=== PATIENT | male | born 1950 | race Caucasian/White ===

== ENCOUNTER 2016-10-09 21:57 | Emergency (ER) | payer MEDICARE, SELFPAY ==
[~2016-10-09] VITALS: Ht 175.3 cm; Wt 101.6 kg
[~2016-10-09 21:57] MED LIST: ADVAIR 250-501 EACH INH; ADVAIR 500-501 EACH INH; ALBUTEROL SULF8.5 GM INH; ALBUTEROL2.5 MG/3 M INH; AMOXICILLIN500 MG PO; ASPIRIN EC325 MG PO; ATORVASTATIN CA80 MG PO; CEFUROXIME500 MG PO; COZAAR25 MG PO; CRESTOR10 MG PO; CRESTOR20 MG PO; DALIRESP500 MCG PO; DELTASONE20 MG PO; DIPHENHYDRAMINE25 M1 PO; DUONEB 0.5 MG-33 ML INH; EPITOL200 MG PO; FEXOFENADINE H180 MG PO; FLONASE ALLERG9.9 ML NAS; GLUCOPHAGE500 MG PO; INCRUSE ELLI62.5 MCG IH; INCRUSE ELLI62.5 MCG INH; IPRAT-ALBUT 0.5-3 ML INH; LISINOPRIL2.5 MG PO; LOSARTAN POTASS25 MG PO; MEDROL4 M1 PO; NEILMED SINUS1 EAC1 NAS; NICOTINE PATCH1 EAC1 TD; NORCO 5-325 TA1 EACH PO; OMEPRAZOLE20 MG PO; OXYGEN; PREDNISONE20 MG PO; PROAIR HFA8.5 GM INH; REQUIP1 MG PO; ROPINIROLE HCL1 MG PO; SENNA8.6 MG PO; SPIRIVA18 MCG INH; STAXYN10 MG PO; VIAGRA50 MG PO; VITAMIN B122500 MCG PO; ZESTRIL2.5 MG PO; ZOFRAN ODT8 MG PO; ZOFRAN4 MG PO
[2016-10-09] MEDS ORDERED: PREDNISONE20 MG PO (23:36)
[2016-10-09] MEDS ORDERED: ZITHROMAX250 MG PO (23:36)
--- NOTE | 2016-10-10 06:23 | EKG ---
[facility] [address] [place], [place] [address] Signed Sinus tachycardia Left axis deviation Abnormal ECG When compared with ECG of 15-JUL-2016 22:39, No significant change was found Confirmed by DUSTIN CROSS MD ([id number]) on 10/10/2016 6:23:31 AM Electronically Signed By: DUSTIN CROSS MD 10/10/16 0623 PATIENT NAME: KEVIN DAUGHERTY SR Electrocardiogram DATE OF : 46 PHYSICIAN: DUSTIN CROSS MD REPORT #: [id number] REPORT IS CONFIDENTIAL AND NOT TO BE RELEASED WITHOUT AUTHORIZATION
[2017-03-19] MEDS ORDERED: PREDNISONE20 MG PO (00:24)
== END 2016-10-09 23:50 | disposition home or self-care (01) ==
LOC: ED 21:57
DX: J44.0 Chronic obstructive pulmonary disease with (acute) lower respiratory infection (principal); J20.9 Acute bronchitis, unspecified; E11.9 Type 2 diabetes mellitus without complications; R56.9 Unspecified convulsions; Z99.81 Dependence on supplemental oxygen; F17.200 Nicotine dependence, unspecified, uncomplicated; Z88.1 Allergy status to other antibiotic agents; Z88.8 Allergy status to other drugs, medicaments and biological substances; Z79.899 Other long term (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; Z79.82 Long term (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
CPT/HCPCS: 71020; 80053; 83605; 83735; 84484; 85025; 93005; 93010; 94640; 96374; 99284; J2930

== ENCOUNTER 2016-12-26 00:27 | Emergency (ER) | payer MEDICARE, OTHER ==
[~2016-12-26] VITALS: Ht 175.3 cm; Wt 99.3 kg
[~2016-12-26 00:27] MED LIST changes: +ZITHROMAX250 MG PO
--- NOTE | 2016-12-26 19:12 | EKG ---
[facility] [address] [place], [place] [address] Signed Sinus rhythm with marked sinus arrhythmia Left axis deviation Abnormal ECG When compared with ECG of 19-NOV-2016 21:56, No significant change was found Confirmed by DUSTIN CROSS MD ([id number]) on 12/26/2016 7:12:36 PM Electronically Signed By: DUSTIN CROSS MD 12/26/161911 PATIENT NAME: KEVIN DAUGHERTY SR Electrocardiogram DATE OF : 46 PHYSICIAN: DUSTIN CROSS MD REPORT #: [id number] REPORT IS CONFIDENTIAL AND NOT TO BE RELEASED WITHOUT AUTHORIZATION
[2017-03-19] MEDS ORDERED: PREDNISONE20 MG PO (00:24)
== END 2016-12-26 02:50 | disposition home or self-care (01) ==
LOC: ED 00:27
DX: R11.0 Nausea (principal); E11.9 Type 2 diabetes mellitus without complications; I10 Essential (primary) hypertension; R56.9 Unspecified convulsions; J44.9 Chronic obstructive pulmonary disease, unspecified; F17.200 Nicotine dependence, unspecified, uncomplicated; Z99.81 Dependence on supplemental oxygen; Z90.49 Acquired absence of other specified parts of digestive tract; Z98.890 Other specified postprocedural states; Z88.1 Allergy status to other antibiotic agents; Z79.51 Long term (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 of inhaled steroids; Z79.899 Other long term (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; Z79.82 Long term (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; Z79.84 Long term (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 of oral hypoglycemic drugs
CPT/HCPCS: 71010; 80053; 84484; 85025; 93005; 93010; 96374; 99284; J2405

== ENCOUNTER → 2017-01-20 | Emergency (ER) | payer MEDICARE, OTHER ==
[~2017-01-20] VITALS: Ht 175.3 cm; Wt 99.3 kg
[~2017-01-20] MED LIST changes: +AUGMENTIN 875-1 EACH PO; +NICORETTE4 M2 BUCCAL; +QVAR8.7 GM
== END ==
LOC: ED 18:26
DX: M25.562 Pain in left knee (principal); J44.9 Chronic obstructive pulmonary disease, unspecified; E11.9 Type 2 diabetes mellitus without complications; I10 Essential (primary) hypertension; F17.200 Nicotine dependence, unspecified, uncomplicated; Z90.49 Acquired absence of other specified parts of digestive tract; Z90.89 Acquired absence of other organs; Z88.1 Allergy status to other antibiotic agents; Z88.8 Allergy status to other drugs, medicaments and biological substances; Z79.899 Other long term (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; Z79.84 Long term (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 of oral hypoglycemic drugs; Z79.82 Long term (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
CPT/HCPCS: 73560; 99283

== ENCOUNTER 2017-02-11 18:36 | Inpatient (IN) | payer MEDICARE ==
[~2017-02-11] VITALS: Ht 175.3 cm; Wt 99.3 kg
--- OUTSIDE RECORDS SUMMARY | ~2017-02-11 | XMS | Clinical Summary ---
Demographics + + + | Address | [address] | | | [place] [address] | + + + | Home Phone | | + + + | Preferred Language | Unknown | + + + | Marital Status | Single | + + + | Christianity Affiliation | Unknown | + + + | Race | Unknown | + + + | Ethnic Group | Other Race | + + + Author + + + | Author | [facility] | + + + | Organization | [facility] | + + + | Address | Unknown | + + + | Phone | Unavailable | + + + Care Team Providers + +------+ + | Care B2B Sales Consultant Name | Role | Phone | + +------+ + | Jose Angel Reina MD | PP | Unavailable | + +------+ + Source Comments NIESHA is fully live on both EpicCare Ambulatory and EpicCare InPatient.[facility] Allergies Not on File Current Medications + [...] oral tablet | daily. | | | 9/20 | | e | | | | [...] tablet | times daily. | | | 020 | | e | | | | | | 14 | | | + + +-------+---------+------+------+-------+ | TIZANIDINE 2 mg | Take by mouth as | | | 04/1 | | Activ [...] WITH | once daily. | | | 06/03 | | Activ | | HANDIHALER 18 mcg | | | | 20 | | e | | inhalation capsule, | | | | 14 | | | | w/inhalation device | | | | | | | + + +-------+---------+------+------+-------+ | PROAIR HFA 90 | Inhale three times | | | /2 | | Activ | | mcg/actuation | daily. | | | 20 | | e | | inhalation HFA [...]
[~2017-02-11 18:36] MED LIST changes: -AUGMENTIN 875-1 EACH PO; -NICORETTE4 M2 BUCCAL; -QVAR8.7 GM
[2017-02-11] MEDS ORDERED: QVAR8.7 GM (18:47)
[2017-02-11] MEDS ORDERED: EPITOL200 MG PO (18:49)
[2017-02-11] MEDS ORDERED: DALIRESP500 MCG PO (18:51)
--- NOTE | 2017-02-11 19:24 | EKG ---
[facility] [address] [place], [place] [address] Signed Sinus tachycardia Left axis deviation Abnormal ECG When compared with ECG of 26-DEC-2016 00:44, No significant change was found Confirmed by DUSTIN CROSS MD ([id number]) on 02/11/2017 7:24:14 PM Electronically Signed By: DUSTIN CROSS MD 02/11/17 1924 PATIENT NAME: KEVIN DAUGHERTY SR Electrocardiogram DATE OF : 46 PHYSICIAN: DUSTIN CROSS MD REPORT #: [id number] REPORT IS CONFIDENTIAL AND NOT TO BE RELEASED WITHOUT AUTHORIZATION
--- NOTE | 2017-02-11 22:00 | NUR ---
PATIENTS ADMISSION COMPLETED. PATIENT OREINTED TO FLOOR AND ROOM. EDUCATED ON THE USE OF THE CALL LIGHT. PATIENT IS ON 2L VIA NC. PATIENTS IS AT THE BEDSIDE AND IS STAYING THE NIGHT, LINENS PROVIDED. PATIENT DENIES ANY NEEDS AT THIS TIME. CALL LIGHT IN REACH.
--- NOTE | 2017-02-11 23:17 | NUR ---
PATIENT INITIAL ASSESSMENT COMPLETE. PATIENT IS AAOX3, COMPLIANT WITH CARE. SPEECH IS SLURRED DUE TO NO EAT. PATIENT HAS GENERALIZED PAIN, PRN TYLENOL GIVEN. PATIENT HAS BEEN COMPLAINING OF LEFT KNEE PAIN FOR THE LAST MONTH, PATIENT REPORTS ADMINISTERED A CORTISONE INJECTION ABOUT A WEEK AGO. PATIENT ARRIVED TO THE UNIT WEARING A KNEE BRACE THAT HAS BEEN REMOVED. PATIENT REPORTS THAT HE IS ORDERED NOT TO WEAR THE BRACE IN BED. PATIENT USES A WALKER AT HOME FOR LOWER EXTREMITY WEAKNESS, HE HAS FOR SEVERAL YEARS. LUNG SOUNDS ARE COARSE IN UPPER LOBES AND DIMINISHED IN THE BASES. PATIENT HAS LABORED BREATHING, RR18. O2 SAT >90% ON 2L NC, PATIENT WEARS CHRONIC O2 AT HOME AT 2L NC. TELE IS IN PLACE, SINUS TACH NOTED ON THE MONITOR. ABD IS ROUND, SOFT, AND NONTENDER. BOWEL SOUNDS ACTIVE. PATIENT WAS ABLE TO USE UNRAL IN BED. CMS INTACT. IVF INFUSING, SITE WNL. PATIENT REPORTED FEELING HOT. ORAL TEMP WAS WNL. GLUCOSE CHECK FOUND A BLOOD GLUCOSE OF 366, 5 UNITS OF INSULIN ADMINISTERED PER ORDERS. WILL CONTINUE TO MONITOR. EVENING MEDS ADMINISTERED PER ORDER. PATIENT IS RESTING COMFORTABLY AT THIS TIME. CALL LIGHT IN REACH. AT BEDSIDE.
--- NOTE | 2017-02-12 01:14 | NUR ---
PATIENT RESTING IN BED. URNAL EMPTIED. IVF INFUSING, SITE WNL. PATIENT DENIES NEEDS AT THIS TIME. SLEEPING ON COUCH. CALL LIGHT IN REACH. LUNG SOUNDS; CLEAR IN ELIZABETH, EXPIRTORY WHEEZES IN RUL, AND LOWER LOBES BILATERALLY. TELE IN PLACE, HR 114.
--- NOTE | 2017-02-12 02:31 | NUR ---
PATIENT HAS A HACKING COUGH THAT HAS BEEN PRODUCTIVE. PATIENT IS RESTING IN BED, HOB ELEVATED. O2 >90% ON 2L NC. IVF INFUSING, SITE WNL. CALL LIGHT IN REACH.
--- NOTE | 2017-02-12 04:07 | NUR ---
PATIENT SNORING, OCCATIONAL COUGH. O2 89% ON 2L NC. PATIENT IS MOUTH BREATHING. CALL LIGHT IN REACH.
--- NOTE | 2017-02-12 06:00 | NUR ---
MORNING MEDS ADMINISTERED PER ORDERS. PATIENT STATES HE IS FEELING MUCH BETTER. FEILD START IV DC. IVF INFUSING, SITE WNL. PATIENT DENIES NEEDS AT THIS TIME.
--- NOTE | 2017-02-12 06:26 | NUR ---
PATIENT RESTED ON AND OFF THROUGHOUT THE NIGHT. PATIENT HAS NOT BEEN OUT OF BED. AAOX3. NO NAUSEA. PAIN RELATED TO RIGHT KNEE, PRN TYLENOL X1. IVF INFUSING. PO ABX. TELE 6, HR 94-110. SCHEDULED NEBS. AT BEDSIDE. OUTPUT QS. 2L NS, WEARS CHRONIC AT HOME.
--- NOTE | 2017-02-12 07:00 | NUR ---
BEDSIDE HANDOFF REPORT RECEIVED FROM SERVICE DESK ANALYST RN. PT SLEEPING LEFT UNDISTURBED.
--- NOTE | 2017-02-12 08:15 | NUR ---
PT RESTING IN BED. PT DENIES PAIN. RESPIRATORY THERAPY TO BEDSIDE FOR NEB. PT ON 2L NC, LUNG SOUNDS COARSE WITH EXPIRATORY WHEEZE. PT TOLERATING ADA DIET, DENIES NAUSEA, 2 UNITS SS INSULIN GIVEN FOR BLOOD GLUCOSE 210. CMS INTACT, NO EDEMA NOTED. IV FLUIDS INFUSING AT 75 ML/HR. PT DENIES OTHER NEEDS AT THIS TIME. AT BEDSIDE.
--- NOTE | 2017-02-12 10:19 | NUR ---
PATIENT REFUSED SHOWER BUT WILL DO A BED BATH AND SHAMPOO HAIR.
--- NOTE | 2017-02-12 10:41 | NUR ---
GOT HIM A CUP OF COFFEE
--- NOTE | 2017-02-12 11:14 | NUR ---
PT RESTING IN BED. PT DENIES NEEDS AT THIS TIME. DISCUSSED PLAN OF CARE. AT BEDSIDE.
--- NOTE | 2017-02-12 12:30 | NUR ---
PT HR 130'S AT REST. PT LAYING IN BED, DENIES CHEST PAIN. MD NOTIFIED OF TACHYCARDIA RECENET DOSE OF ALBUTEROL. NO NEW ORDERS AT THIS TIME.
--- NOTE | 2017-02-12 13:47 | NUR ---
PT IS RESTING IN BED WITH CALL LIGHT IN REACH.
--- NOTE | 2017-02-12 15:06 | NUR ---
PT ASSISTED TO CHAIR. BATH COMPLETED BY NURSE AIDE. PT WITH PRODUCTIVE COUGH, SUCTION SET-UP AND GIVEN TO PT. ASSIST X1 WITH FWW. PT GIVEN NICOTINE LOZENGE PER PT REQUEST. PT DENIES OTHER NEEDS AT THIS TIME.
--- NOTE | 2017-02-12 16:40 | NUR ---
PATIENT REFUSED SHOWER BUT GOT A BED BATH AROUND 3PM AND HIS HAIR WASHED.
--- NOTE | 2017-02-12 17:30 | NUR ---
PT ALERT/ORIENTED. PT ON 2L NC CHRONIC, LUNG SOUNDS COARSE, PRODUCTIVE COUGH. PT UP WITH 1PA WITH FWW, KNEE BRACE TO LEFT LEG. PT DENIES PAIN. TOLERATING ADA DIET, RECEIVING SS INSULIN, ACHS ACCUCHECKS. IV FLUIDS INFUSING NS AT 75 ML/HR. PT VOIDING QS.
--- NOTE | 2017-02-12 18:55 | NUR ---
PATIENT IS RESTING COMFORTABLY IN BED, BREATHING IS EVEN AND UNLABORED. DENIES NEEDS AT THIS TIME. CALL LIGHT WITHIN REACH.
--- NOTE | 2017-02-12 21:50 | NUR ---
PATIENT COMPLAINS OF "STUFFY" NOSE AND IS REQUESTING FLONASE SPRAY. DISCUSSED WITH DR. CROSS, AND ORDERED FLONASE X2 A DAY. PATIENT ALSO REPORTS BEING WARM. FEVER IS NOT PRESENT. GAVE PATIENT ICE PACKS, WASH RAG, REMOVED EXCESS BLANKETS, AND TURNED TEMP. DOWN IN ROOM. NO OTHER NEEDS AT THIS TIME. CALL LIGHT WITHIN REACH.
--- NOTE | 2017-02-12 21:55 | NUR ---
PATIENT CALLED TO SAY HE WAS TOO WARM. TEMPERATURE IN ROOM ALREADY TURNED ALL THE WAY DOWN. TOOK PATIENT'S TEMPERATURE, WAS 98.5 DEGREES F ORAL. UNCOVERED PATIENTS FEET, AND TOOK BLANKET OFF LEAVING ONLY THE SHEET ON. MADE PATIENT ICE PACK. PATIENT IS REQUESTING NASAL DROPS THAT HE TAKES AT HOME, THREATENS TO LEAVE IF HE DOES NOT GET THEM. NURSE NOTIFIED.
--- NOTE | 2017-02-12 22:57 | NUR ---
PATIENT IS RESTING IN BED, STATING THAT HE FEELS WARM AND DIZZY. VITALS TAKEN WITH A TEMP OF 98.2, PULSE IS 111, BP OF 116/60, AND O2 SAT OF 94%. PROVIDED NICOTINE LOZENGE AND FAN. WILL CONTINUE TO MONITOR. CALL LIGHT WITHIN REACH.
--- NOTE | 2017-02-12 23:52 | NUR ---
NURSE IN ROOM.
--- NOTE | 2017-02-13 02:05 | NUR ---
PATIENT ASLEEP. DOES NOT NEED ANYTHING AT THIS TIME.
--- NOTE | 2017-02-13 03:47 | NUR ---
PATIENT CALLED, IS REQUESTING HIS BREATHING TREATMENT. RESPIRATORY THERAPY CALLED.
--- NOTE | 2017-02-13 05:33 | NUR ---
PATIENT'S NIGHT HAS BEEN UNEVENTFUL. HE HAS BEEN RESTING THROUGHOUT MAJORITY OF SHIFT. VITALS HAVE BEEN STABLE, OTHER THAN TACHYCARDIA AT BEGINNING OF SHIFT WITH A PULSE BETWEEN 100 AND 125. HOWEVER, PATIENT'S HEART RATE IS NOW IN 80s AND RUNNING NORMAL SINUS. PATIENT IS RECEIVING IV FLUIDS, IS A 1PA, AND IS ON TELE. NO COMPLAINTS OF PAIN. THERE WERE NO ACUTE CHANGES IN THE PATIENT'S CONDITION FROM BEGINNING OF SHIFT ASSESSMENT.
--- NOTE | 2017-02-13 05:58 | NUR ---
PATIENT RESTING COMFORTABLY IN BED, BREATHING IS EVEN AND UNLABORED ON 2L O2. DENIES NEEDS AT THIS TIME. CALL LIGHT WITHIN REACH.
--- NOTE | 2017-02-13 07:00 | NUR ---
BEDSIDE HANDOFF REPORT RECEIVED FROM DATA ENTRY SPECIALIST RN. PT RESTING IN BED. IV FLUIDS INFUSING NS AT 75 ML/HR. PT DENIES NEEDS AT THIS TIME.
--- NOTE | 2017-02-13 08:16 | NUR ---
PT RESTING IN BED. BLOOD SUGAR 174, BREAKFAST TRAY GIVEN. DSICUSSED NICOTINE LOZENGE LIMITS WITH PT, PT REQUESTING TO USE LOZENGES VS NICOTINE PATCH. PT DENIES OTHER NEEDS AT THIS TIME.
--- NOTE | 2017-02-13 08:45 | NUR ---
PT RESTING IN BED. PT ON 2L NC, O2 SATS 90%, LUNG SOUNDS COARSE WITH EXPIRATORY WHEEZE. PT DENIES PAIN. TOLERATING ADA DIET, GIVEN 1 UNIT SS INSULIN FOR BLOOD GLUCOSE 174. BOWEL TONES ACTIVE. NO EDEMA NOTED, CMS INTACT. PT GIVEN NICOTINE LOZENGE, DISCUSSED NICOTINE LIMIT FOR DAY, REFUSING NICOTINE PATCH IN ORDER TO HAVE MORE LOZENGES. PT AGREEABLE TO SHOWER. PT DENIES OTHER NEEDS AT THIS TIME.
[2017-02-13] MEDS ORDERED: ZITHROMAX250 MG PO (09:27)
[2017-02-13] MEDS ORDERED: PREDNISONE20 MG PO (09:29)
[2017-02-13] MEDS ORDERED: NICORETTE4 M2 BUCCAL (09:51)
--- NOTE | 2017-02-13 10:00 | NUR ---
PT ASSISTED TO BATHROOM AND BACK TO CHAIR. AT BEDSIDE. PT DENIES NEEDS AT THIS TIME.
--- NOTE | 2017-02-13 10:44 | NUR ---
Patient given a shower and tolerated well. Vital signs taken and I&O's charted. Amena RN in room with Pharmacist to go over discharge instructions. No other requests at this time.
--- NOTE | 2017-02-13 11:52 | NUR ---
PT PACKE UP AND REDEY TO GO HOME
[2017-03-19] MEDS ORDERED: PREDNISONE20 MG PO (00:24)
== END 2017-02-13 11:10 | disposition home or self-care (01) | DRG 190 ==
LOC: ED 18:36 → MS 21:07
PROVIDERS: ADMIT Internal Medicine
DX: J44.1 Chronic obstructive pulmonary disease with (acute) exacerbation (principal); J96.21 Acute and chronic respiratory failure with hypoxia; Z99.81 Dependence on supplemental oxygen; F17.210 Nicotine dependence, cigarettes, uncomplicated; I10 Essential (primary) hypertension; G40.909 Epilepsy, unspecified, not intractable, without status epilepticus; E11.9 Type 2 diabetes mellitus without complications; Z79.84 Long term (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 of oral hypoglycemic drugs
CPT/HCPCS: 36415; 36600; 71010; 80048; 80053; 82803; 83605; 83880; 84484; 85025; 93005; 93010; 94640; 94644; 99406; J1650; J2920; J7030; J7512

== ENCOUNTER → 2017-03-18 | Emergency (ER) | payer MEDICARE ==
[~2017-03-18] VITALS: Ht 175.3 cm; Wt 99.3 kg
[~2017-03-18] MED LIST changes: +AUGMENTIN 875-1 EACH PO; +NICORETTE4 M2 BUCCAL; +QVAR8.7 GM
--- NOTE | 2017-03-19 12:38 | EKG ---
[facility] [address] [place] [address] Signed Sinus tachycardia with premature atrial complexes Left axis deviation Abnormal ECG When compared with ECG of 11-FEB-2017 19:00, premature atrial complexes are now present Confirmed by SIGRID ARELLANO MD ([id number]) on 03/19/2017 12:38:29 PM Electronically Signed By: SIGRID ARELLANO MD 03/19/17 1238 PATIENT NAME: KEVIN DAUGHERTY SR Electrocardiogram DATE OF : 46 PHYSICIAN: SIGRID ARELLANO MD REPORT #: [id number] REPORT IS CONFIDENTIAL AND NOT TO BE RELEASED WITHOUT AUTHORIZATION
== END ==
LOC: ED 22:03
DX: J44.1 Chronic obstructive pulmonary disease with (acute) exacerbation (principal); R07.9 Chest pain, unspecified; F17.210 Nicotine dependence, cigarettes, uncomplicated; E11.9 Type 2 diabetes mellitus without complications; I10 Essential (primary) hypertension; Z88.1 Allergy status to other antibiotic agents; Z88.8 Allergy status to other drugs, medicaments and biological substances; Z79.899 Other long term (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; Z79.52 Long term (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 of systemic steroids; Z79.2 Long term (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 of antibiotics; Z79.84 Long term (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 of oral hypoglycemic drugs
CPT/HCPCS: 71010; 80053; 82550; 82553; 83735; 83874; 83880; 84484; 85025; 85610; 85730; 93005; 93010; 94640; 96374; 99284; J2930

== ENCOUNTER 2017-04-20 16:06 | Emergency (ER) | payer MEDICARE ==
[~2017-04-20] VITALS: Ht 175.3 cm; Wt 99.3 kg
--- OUTSIDE RECORDS SUMMARY | ~2017-04-20 | XMS | Clinical Summary ---
Demographics + + + | Address | [address] | | | [place] [address] | + + + | Home Phone | | + + + | Preferred Language | Unknown | + + + | Marital Status | Single | + + + | Worship Affiliation | Unknown | + + + [...] Team Providers + +------+ + | Care Fairmont Gold Attendant Name | Role | Phone | + +------+ + | Jose Angel Reina MD | PP | Unavailable | + +------+ + Source Comments NIESHA is fully live on both EpicCare Ambulatory and EpicCare InPatient.[facility] Allergies Not on File Current Medications + [...]
--- OUTSIDE RECORDS SUMMARY | ~2017-04-20 | XMS | Clinical Summary ---
Demographics + + + | Address | [address] | | | [place] [address] | + + + | Home Phone [...] Providers + +------+ + | Care Patient Safety Sitter Name | Role | Phone | + +------+ + | Jose Angel Reina MD | PP | Unavailable | + +------+ + Source Comments NIESHA is fully live on both EpicCare Ambulatory and EpicCare InPatient.[facility] Allergies Not on File Current Medications [...]
[~2017-04-20 16:06] MED LIST changes: -AUGMENTIN 875-1 EACH PO
[2017-04-20] MEDS ORDERED: AUGMENTIN 875-1 EACH PO (17:53)
== END 2017-04-20 19:00 | disposition home or self-care (01) ==
LOC: ED 16:06
DX: J02.9 Acute pharyngitis, unspecified (principal); J44.9 Chronic obstructive pulmonary disease, unspecified; E11.9 Type 2 diabetes mellitus without complications; I10 Essential (primary) hypertension; F17.200 Nicotine dependence, unspecified, uncomplicated; Z90.49 Acquired absence of other specified parts of digestive tract; Z90.89 Acquired absence of other organs; Z88.1 Allergy status to other antibiotic agents; Z88.8 Allergy status to other drugs, medicaments and biological substances; Z79.82 Long term (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; Z79.84 Long term (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 of oral hypoglycemic drugs; Z79.899 Other long term (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
CPT/HCPCS: 71045; 87081; 87502; 87880; 94640; 96372; 99283; J0696

== ENCOUNTER 2017-04-21 21:03 | Inpatient (IN) | payer MEDICARE, SELFPAY ==
[~2017-04-21] VITALS: Ht 175.3 cm; Wt 99.8 kg
[~2017-04-21 21:03] MED LIST changes: +AUGMENTIN 875-1 EACH PO
--- OUTSIDE RECORDS SUMMARY | 2017-04-21 21:33 | XMS | Clinical Summary ---
Demographics + + + | Address | [address] | | | [place] [address] | + + + | Home Phone | | + + + | Preferred Language | Unknown | + + + | Marital Status | Single | + + + | Oriental Orthodox Affiliation | Unknown | + + + | Race | Unknown | + + + | Ethnic Group | Other Race | + + + Author + + + | Author | NON REVENUE LOCATIONS | + + + | Organization | NON REVENUE LOCATIONS | + + + | Address | Unknown | + + + | Phone | Unavailable | + + + Care Team Providers + +------+ + | Care Test Cell Technician Name | Role | Phone | + +------+ + | Jose Angel Reina MD | PP | Unavailable | + +------+ + Source Comments NIESHA is fully live on both EpicCare Ambulatory and EpicCare InPatient.[facility] Allergies Not on File Current Medications + + +-------+---------+------+------+-------+ | Prescription | Sig. | Disp. | Refills | Star | End | Statu | | | | | | t | Date | s | | | | | | Date | | | + + +-------+---------+------+------+-------+ | LISINOPRIL 2.5 mg | Take by mouth once | | | 04/0 | | Activ | | oral tablet | daily. | | | 04/24 | | e | | | | | | 14 | | | + + +-------+---------+------+------+-------+ | ROPINIROLE 1 mg | Take by mouth once | | | 04/1 | | Activ | | oral tablet | daily. | | | 04/24 | | e | | | | | | 14 | | | + + +-------+---------+------+------+-------+ | ATORVASTATIN 80 mg | Take by mouth once | | | 04/0 | | Activ | | oral tablet | daily. | | | 12/23 | | e | | | | | | 14 | | | + + +-------+---------+------+------+-------+ | DALIRESP 500 mcg | Take by mouth once | | | 03/2 | | Activ | | oral tablet | daily. | | | 04/24 | | e | | | | | | 14 | | | + + +-------+---------+------+------+-------+ | METFORMIN 500 mg | Take by mouth two | | | 04/0 | | Activ | | oral tablet | times daily. | | | 08/22 | | e | | | | | | 14 | | | + + +-------+---------+------+------+-------+ | EPITOL 200 mg oral | Take by mouth four | | | 02/ | | Activ | | tablet | times daily. | | | | | e | | | | | | 14 | | | + + +-------+---------+------+------+-------+ | TIZANIDINE 2 mg | Take by mouth as | | | 04/ | | Activ | | oral tablet | needed. | | | | | e | | | | | | 14 | | | + + +-------+---------+------+------+-------+ | aspirin (KETTY | Take 325 mg by mouth | | | | | Activ | | ASPIRIN) 325 mg oral | once daily. | | | | | e | | tablet | | | | | | | + + +-------+---------+------+------+-------+ | SENNOSIDES (SENNA | Take by mouth two | | | | | Activ | | LAX ORAL) | times daily. | | | | | e | + + +-------+---------+------+------+-------+ | acetaminophen | Take 500 mg by mouth | | | | | Activ | | (TYLENOL EXTRA | as needed. | | | | | e | | STRENGTH) 500 mg | | | | | | | | oral tablet | | | | | | | + + +-------+---------+------+------+-------+ | | Inhale 1 puff two | | | | | Activ | | fluticasone-salmeter | times daily. | | | | | e | | ol 500-50 mcg/dose | | | | | | | | inhalation disk with | | | | | | | | device | | | | | | | + + +-------+---------+------+------+-------+ | SPIRIVA WITH | once daily. | | | 03/ | | Activ | | HANDIHALER 18 mcg | | | | /20 | | e | | inhalation capsule, | | | | 14 | | | | w/inhalation device | | | | | | | + + +-------+---------+------+------+-------+ | PROAIR HFA 90 | Inhale three times | | | 02/2 | | Activ | | mcg/actuation | daily. | | | 08/22 | | e | | inhalation HFA | | | | 14 | | | | aerosol inhaler | | | | | | | + + +-------+---------+------+------+-------+ | MISCELLANEOUS | once daily at | | | | | Activ | | MEDICAL SUPPLY (RX | bedtime. Use as | | | | | e | | HOME OXYGEN) | directed. | | | | | | + + +-------+---------+------+------+-------+ Active Problems + + + | Problem | Noted Date | + + + | Cerebellar ataxia (HCC) | 07/24/2013 | + + + Social History + +-------+ +--------+------+ | Tobacco Use | Types | Packs/Day | Years | Date | | | | | Used | | + +-------+ +--------+------+ | Current Every Day | | | | | | Smoker | | | | | + +-------+ +--------+------+ + +---+---+---+ | Smokeless Tobacco: | | | | | Never Used | | | | + +---+---+---+ + + +---------+ + | Alcohol Use | Drinks/We | oz/Week | Comments | | | ek | | | + + +---------+ + | No | | | | + + +---------+ + + + + | Sex Assigned at | Date Recorded | | | | + + + | Not on file | | + + + Last Filed Vital Signs + + + + | Vital Sign | Reading | Time Taken | + + + + | Blood Pressure | 101/73 | 07/18/2013 2:17 PM PDT | + + + + | Pulse | 92 | 07/18/2013 2:17 PM PDT | + + + + | Temperature | - | - | + + + + | Respiratory Rate | - | - | + + + + | Oxygen Saturation | - | - | + + + + | Inhaled Oxygen | - | - | | Concentration | | | + + + + | Weight | 102.1 kg (225 lb) | 07/18/2013 2:17 PM PDT | + + + + | Height | - | - | + + + + | Body Mass Index | - | - | + + + + Plan of Treatment + + + + + | Health Maintenance | Due Date | Last Done | Comments | + + + + + | INFLUENZA VACCINE | | | | | (FLU SHOT) | 7 | | | + + + + + Results Not on filefrom Last 3 Months"
--- OUTSIDE RECORDS SUMMARY | 2017-04-21 21:33 | XMS | Clinical Summary ---
Demographics + + + | Address | [address] | | | [place] [address] | + + + | Home Phone | | + + + | Preferred Language | Unknown | + + + | Marital Status | Single | + + + | Buddhist Affiliation | Unknown | + + + [...] Team Providers + +------+ + | Care Manager Project Name | Role | Phone | + +------+ + | Jose Angel Reina MD | PP | Unavailable | + +------+ + Source Comments NIESHA is fully live on both EpicCare Ambulatory and EpicCare InPatient.[facility] Allergies Not on File Current Medications + [...]
--- OUTSIDE RECORDS SUMMARY | 2017-04-21 23:52 | XMS | Clinical Summary ---
Demographics + + + | Address | [address] | | | [place] [address] | + + + | Home Phone | | + + + | Preferred Language | Unknown | + + + | Marital Status | Single | + + + | Latter Day Affiliation | Unknown | + + + [...] Team Providers + +------+ + | Care Investment Manager Name | Role | Phone | + +------+ + | Jose Angel Reina MD | PP | Unavailable | + +------+ + Source Comments NIESHA is fully live on both EpicCare Ambulatory and EpicCare InPatient.[facility] Allergies Not on File Current Medications + [...]
--- NOTE | 2017-04-22 00:06 | NUR ---
PT ARRIVED TO FLOOR FROM ED. RESPIRATIONS INCREASED AND PT IS ON 3.5 LNC. PT'S IS AT BESIDE, ASSESSMENT IS BEING COMPLETED.
--- NOTE | 2017-04-22 01:15 | NUR ---
COMPLETED ASSESSMENT ON PT, HIS RR IS INCREASED ON 3.5LNC AND HE HAS TACHYCARDIA WITH A TEMP OF 99.9 WILL CONTINUE TO MONITOR VS. HE IS RECEIVING IV ABX AND A FLUID BOLUS OF 500CC. PT STATES HE USES A WALKER AT HOME, PT IS A 1 PA. HE STATES HE HAS NO PAIN BUT HAS SOME WEAKNESS AND IS NOT EATING WELL. PT HAS NO NAUSEA AT THIS TIME BUT DID AT HOME. PT HAS FRESH WATER AND BEDSIDE AND CALL LIGHT IS WITHIN REACH. PT IS REQUESTING A BREATHING TRT, WILL NOTIFY RT.
--- NOTE | 2017-04-22 02:49 | NUR ---
REPOSITIONED PT IN BED AND CLEARED I&OS. CALL LIGHT WITHIN REACH, PT HAS NO REQUESTS AT THIS TIME.
--- NOTE | 2017-04-22 04:47 | NUR ---
PT ARRIVED AFTER MIDNIGHT WITH . AFTER SETTLEING IN AND EATING HE HAS RESTED WELL FOR SEVERAL HOURS. PT PREFERS TO HAVE DOOR AND CURTAIN OPEN. PT IS ON 3.5L NC AND LUNG HAVE EXP. WHEEZES. PT'S O2 SAT IS DOING WELL WITH O2. PT IS A 1PA WITH WALKER. PT'S STAYED THE NIGHT IN ROOM.
--- NOTE | 2017-04-22 06:35 | NUR ---
VITALS DONE AND CHARTED. PT NEEDS NOTHING AT THIS TIME. BEDSIDE TABLE AND CALL LIGHT WITHIN REACH.
--- NOTE | 2017-04-22 07:30 | NUR ---
BEDSIDE REPORT RECEIVED FROM [place]. PATIENT AWAKE IN BED. DENIED PAIN AND SOB. IV SITE PATENT AND FLUID IS INFUSING WELL. PATIENT IS 0N 3L 0F 02 VIA MN. NO REQUEST. WHITE BOARD UPDATED.
--- NOTE | 2017-04-22 08:10 | NUR ---
PATIENT RESTING IN BED CBG CHECKED. 0800AM MEDICATIONS ADMINISTERED. IV SITE INFITRATED. NEW IV SITE ESTABLISHED BY FLOAT NURSE ALDO. PATIENT SITTING AT BEDSIDE AT THIS TIME EATING BREAKFAST.
--- NOTE | 2017-04-22 09:50 | NUR ---
PATIENT ASSISTED TO CHAIR, SHIFT ASSESSMENT DONE. LUNGS DIM AND COARSE WITH EXP WHEEZE. 0900AM MEDICATION ADMINISTERED, VS TAKEN AND WNL. PATIENT DENIES PAIN. POSITIVE BOWEL TONES, NO EDEMA. RESTING IN THE CHAIR AT THIS TIME, CALL LIGHT AND PERSONAL BELONGING IN REACH.
--- NOTE | 2017-04-22 09:53 | NUR ---
PT STOOD AND TRANSFERED TO CHAIR. PT IS NOW SITTING UP IN CHAIR WITH CALL LIGHT IN REACH. PT WAS OFFERED A SHOWER BUT WOULD LIKE TO WAIT UNTIL AFTER LUNCH. LINENS AND PT'S GOWN WERE CHANGED. PT ASKED FOR MORE COFFEE
--- NOTE | 2017-04-22 11:57 | NUR ---
PATIENT RESTING IN THE CHAIR. NICOTINE LOZENGES ADMINISTERED. RT IN ROOM GIVEN NEB TREATMENT.
--- NOTE | 2017-04-22 13:26 | NUR ---
PATIENT RESTING IN THE CHAIR, DENIES PAIN AND SOB. NICOTINE LOZENGES ADMINISTERED PER PATIENT REQUEST. NO APPARENT DISTRESS.
--- NOTE | 2017-04-22 14:23 | NUR ---
PATIENT BACK TO BED, DENIES PAIN AND SOB. FAMILY AT BEDSIDE.
--- NOTE | 2017-04-22 14:32 | NUR ---
PT IS RESTING IN BED SAFELY WITH CALL LIGHT IN REACH. PT DID NOT NEED ANYTHING AT THE MOMENT
--- NOTE | 2017-04-22 17:10 | NUR ---
PATIENT RESTING IN BED DENIES PAIN AND SOB AT THIS TIME. HAD NEB TREATMENT EARLIER. STILL HAVE LOOSE COUGH. AT BED SIDE.
--- NOTE | 2017-04-22 18:05 | NUR ---
PATIENT HAD AN UNEVENTFUL DAY. HAS A NEW IV SITE. FLUID INFUSING AT 75ML/HR. LUNGS STILL COARSE WHEEZING IMPROVED WITH NEB TX. PATIENT SPENT MOST THE DAY IN THE CHAIR. STILL HAVE LOOSE/PRODUCTIVE COUGH. VOIDED Q/S. MAY D/C TOMORROW.
--- NOTE | 2017-04-22 18:07 | NUR ---
PT IS RESTING IN BED WITH CALL LIGHT IN REACH. PT IS ASKING FOR A NICOTINE LOZINGER, WILL NOTIFY NURSE
--- NOTE | 2017-04-22 19:15 | NUR ---
BEDSIDE REPORT RECEIVED FROM VERÓNICA MAGAÑA. PT LYING IN BED, ON 3L OXYGEN NC, SPO2 90%, HR 112. PLAN TO AMBULATE HALLWAY THIS EVENING. NO REQUESTS AT THIS TIME, WILL CONTINUE TO MONITOR, CALL LIGHT IS IN REACH.
--- NOTE | 2017-04-22 19:54 | NUR ---
ANSWERED PT CALL LIGHT, PT INCONTINENT OF STOOL WHILE COUGHING. CLEANED PT, CHANGED GOWN, CHUX CHANGED. PT REQUESTED ICE WATER, COFFEE. PTS AT BEDSIDE. PT ALSO REQUESTING NICOTINE LOSANGE, LOSANGE GIVEN. CALL LIGHT IN REACH. IVF INFUSING WNL AT 75 ML/HR.
--- NOTE | 2017-04-22 20:52 | NUR ---
2030 - pt received another nicotine lozenger c/o cigarrette craving, incontinent of soft bm, cleansed, lotions to area, cbg 90, no other requests, visiting with
--- NOTE | 2017-04-22 22:00 | NUR ---
PT ASSESSMENT COMPLETE. PTS LUNGS COARS IN LLL, CLEAR THROUGHOUT, PT STATES COUGH IS PRODUCTIVE. PT IS 92% ON 3L OXYGEN BY NASAL CANNULA. PT COMPLAINS OF SOB WITH MOVEMENT. PT IS ALERT AND ORIENTED X 3. PT COMPLAINS OF NICOTINE CRAVING, ADMINISTERED LOSANGE AT THIS TIME. IV SITE WNL, FLUSHES WELL, GOOD BLOOD RETURN. ANTIBIOTIC INFUSING AT THIS TIME. ASSISTED PT TO AMBULATE HALLWAY WITH JEAN PIERRE SHANKS. PT TOLERATED WELL W SBA, COMPLAINED OF SOB, SPO2 91-92% UPON RETURNING TO ROOM. AT BEDSIDE. PT REQUESTING SANDWICH BOX, JEAN PIERRE SHANKS TO DELIVER TO PT. NO ADDITIONAL REQUESTS, CALL LIGHT AND PERSONAL SUPPLIES IN REACH.
--- NOTE | 2017-04-22 22:52 | NUR ---
pt continues on droplet isolation, moist, non productive cough present, o2 3L N?C, no c/o resp distress. IVF and abx infusing. pt c/o pain at insertion site as of a few minutes ago, site intact, no redness, good blood flow return, site not warmer than rest of body. Reassured site was patent and explained how sometimes pts may feel a little bit of discomfort after first getting abx. Reassured, no further c/o.
--- NOTE | 2017-04-23 00:17 | NUR ---
ANSWERED PT'S CALL LIGHT, PT REQUESTING PRN BREATHING TREATMENT. PHONE CALL TO RT GABBY PIERRE TO COME DO TREATMENT.
--- NOTE | 2017-04-23 00:37 | NUR ---
IN PT ROOM TO CHECK ON PT. RT WAS IN PT ROOM. ANTIBIOTIC COMPLETE AT THIS TIME, IVF INFUSING WNL AT 75 ML/HR. PT CONTINUES ON 3L OXYGEN BY NASAL CANNULA. PT HAS NO REQUESTS AT THIS TIME. CALL LIGHT IN REACH, LIGHTS OFF IN ROOM.
--- NOTE | 2017-04-23 00:55 | NUR ---
ANSWERED CALL LIGHT, PT COMPLAINING OF DRY NOSE, EDUCATION PROVIDED REGARDING OXYGEN, GAVE PT NS FLUSH TO USE PER HEADING UP MACHINE OPERATOR ANALY. IVF INFUSING. PT ALSO REQUESTING NICOTINE LOSANGE, ADMINISTERED. PT CONTINUES ON 3L OXYGEN BY NASAL CANNULA, LIGHTS OFF IN ROOM. REQUESTING TO SLEEP AT THIS TIME.
--- NOTE | 2017-04-23 03:50 | NUR ---
IN PT ROOM, ASSESSMENT COMPLETE. WHEEZES HEARD THROUGHOUT LUNGS, PT ON 3L OXYGEN BY NC, SPO2 92%. PT SLEEPING WHEN RN ENTERED ROOM, AWAKENS, ADMINISTERED PRN NICOTINE LOSANGE. NEW IV FLUID HANGING. EMPTIED PT'S URINAL. PT HAS CALL LIGHT IN REACH, LIGHTS OFF IN ROOM.
--- NOTE | 2017-04-23 05:20 | NUR ---
SLASHER HAND IN PT ROOM AT THIS TIME.
--- NOTE | 2017-04-23 06:15 | NUR ---
PT USES CALL LIGHT CONSISTENTLY THROUGHOUT SHIFT, REQUESTING NICOTINE LOSANGES HOURLY AWAKE. PT INCONTINENT OF STOOL WITH COUGHING X 2, ATTENDS IN PLACE. PT RECEIVING IVF WNL. DENIES PAIN THROUGHOUT SHIFT. RECEIVED PRN BREATHING TREATMENTS. PT USING URINAL FOR VOIDS. AMBULATED HALLWAY X 1 WITH SBA FWW. PT IN ROOM THROUGHOUT SHIFT.
--- NOTE | 2017-04-23 07:59 | NUR ---
PT IS SITTING UP EATING HIS BREAKFAST, PT DID NOT NEED ANYTHING AT THE MOMENT
--- NOTE | 2017-04-23 08:10 | NUR ---
PATIENT LUNG SOUNDS TIGHT WITH LIMITED AIR MOVEMENT THROUGHOUT, NOTED EXPIRATORY WHEEZES. STATED " MY LAST TX WAS AT MIDNIGHT" NOTIFIED RT PATIENT IN NEED OF TX. PATIENT IN SUPINE POSITION IN BED EATING BREAKFAST. DISCUSSED POC FOR DAY. PATIENT CONCERNED WILL NOT GET LOZENGES IN TIMELY MANNER. DISCUSSED WITH DOCTOR AND PHARMACIST BARB IF OKAY TO PROVIDE PATIENT WITH TWO AT TIME, VERBALIZED OKAY. CHANGED ORDER. PATIENT AAOX3. NO EDEMA NOTED. ADMINISTERED MORNING MEDICAITONS. O2 93% ON 3L NC.
--- NOTE | 2017-04-23 09:12 | NUR ---
PT IS RESTING IN BED SAFELY WITH CALL LIGHT IN REACH. PT AGREED TO SHOWER, WILL RETURN TO DO SO AFTER ALL VITALS ARE TAKEN.
--- NOTE | 2017-04-23 10:18 | NUR ---
CHECKING ON PATIENT FREQUENTLY. APPEARS CALM AND BREATHING EASY. PROVIDED PATIENT WITH LOZENGES.
--- NOTE | 2017-04-23 12:20 | NUR ---
PATIENT AGREES TO SHOWER AFTER DR. BRITT ROUNDS ON HIM. PATIENT LUNGS SOUNDS COURSE AND DIMINISHED. PATIENT STATES " THE LOZENGES ARE REALLY HELPING ME KICK THIS HABIT".
--- NOTE | 2017-04-23 12:44 | NUR ---
PT SEEMS TO BE IMPROVING, BY HIS SIDE. PT IS ALERT AND SOMEWHAT ORIENTED. HE MENTIONED THAT HIS MATERIAL INSPECTOR WAS NOTIFIED YESTERDAY THAT HE IS HERE, BUT HAS NOT YET COME. I SUGGESTED THAT I BECOME HIS MATERIAL INSPECTOR WHILE HE IS HERE, HE SEEMED PLEASED WITH THAT. HE HAD ME PRAY FOR HIM, AND MENTIONED THAT HIS BRO. LAST YEAR. WE TALKED ABOUT THIS HE SEEMS TO BE DEALING APPROPRIATELY WITH HIS BROTHERS PASSING. HE ALSO MENTIONED HIS SISTER NAVJOT, AND THAT I HAVE HIS PERMISSION TO DISCUSS HIS HEALTH WITH HER. I WILL CONTINUE TO FOLLOW NEEDED
--- NOTE | 2017-04-23 14:58 | NUR ---
PT SHOWERED WITH ASSISTANCE, LINENS CHANGED. PT IS NOW IN BED WITH CALL LIGHT IN REACH.
--- NOTE | 2017-04-23 18:08 | NUR ---
PT IS SITTING UP IN CHAIR WORKING ON DINNER, CALL LIGHT IN REACH.
--- NOTE | 2017-04-23 18:45 | NUR ---
PATIENT UP TO SHOWER TODAY, LUNG SOUNDS CONTINUE TO SOUND TIGHT AND COURSE WITH LIMITED AIR MOVEMENT. PATIENT REQUIRING NEB TX AND IV SOLUMEDROL. GOOD APPETITE AND VOIDING WELL. LARGE BM TODAY. VS STABLE. 3L NC 94%
--- NOTE | 2017-04-23 19:30 | NUR ---
BEDSIDE REPORT RECEIVED FROM VERÓNICA SHANKS. PT SITTING UP IN CHAIR, ON 3L OXYGEN NC. IVF INFUSING WNL AT 75 ML/HR. PT EATING DINNER AT THIS TIME. CALL LIGHT IN REACH. PT'S IN ROOM. PLAN TO AMBULATE THIS EVENING.
--- NOTE | 2017-04-23 20:45 | NUR ---
IN PT ROOM, PT'S TO NURSES STATION TO ALERT THAT IV PUMP BEEPING. DITAL OCCLUSION, FLUSHED LINE, FLUSHES EASILY, REINFORCED IV SITE WITH TAPE IN WRIST AND PT BENDING WRIST. IVF INFSUING AT 75 ML/HR WNL. PT REQUESTING COFFEE, NICOTINE LOSANGES, AND REQUESTING SODA, WATER. DRINKS GIVEN TO PT AND . CALL LIGHT IN REACH, PT SITTING UP IN CHAIR, RT IN ROOM.
--- NOTE | 2017-04-23 21:27 | NUR ---
pt back to bed. no c/o pain.. O2 3l/nc, cont pulse ox in place, saTS 92%, PULSE 100, R 20. WATCHING TV. AT BEDSIDE
--- NOTE | 2017-04-23 23:19 | NUR ---
ANSWERE PT'S CALL LIGHT, PT FEELING "WEIRD". IN ROOM TO ASSESS PT, PT IS ALERT AND ORIENTED X 3, DOES NOT REPORT CHEST PAIN, STATES HE FEELS SOB. LUNGS DIMINISHED THROUGHOUT ALL LOBES, WHEEZES HEARD THROUGHOUT. HR REGULAR. PUPILS EQUAL ROUND AND REACTIVE TO LIGHT. CSM INTACT BILATERALLY UPPER AND LOWER EXTREMITIES. ANTIBIOTIC INFUSION COMPLETE. IVF INFUSING WNL IN LEFT WRIST. PT REQUESTING PRN BREATHING TREATMENT, VERÓNICA HORNE NOTIFIED IN PERSON, WILL BE IN TO COMPLETE TREATMENT. PT CURRENTLY ON 3L OXYGEN NASAL CANNULA. SPO2 93%. CALL LIGHT IN REACH, AT BEDSIDE.
--- NOTE | 2017-04-24 01:30 | NUR ---
PT SLEEPING ON LEFT SIDE, VISIBLE CHEST RISE, ON 3L OXYGEN BY NASAL CANNULA, LIGHTS OFF IN ROOM. ALSO IN ROOM. WILL CONTINUE TO MONITOR.
--- NOTE | 2017-04-24 04:50 | NUR ---
IN PT ROOM, PT IS SLEEPING, AWAKENS W RN VOICE. VITAL SIGNS COMPLETE AT THIS TIME, 93% ON 3L OXYGEN BY NC, HR 86. LUNGS DIMINISHED, WHEEZES HEARD, PT DENIES SOB AT THIS TIME. EMPTIED PTS URINAL. CALL LIGHT IN REACH, LIGHTS OFF IN ROOM. SLEEPING ON COUCH AT THIS TIME.
--- NOTE | 2017-04-24 05:23 | NUR ---
ANSWERED PT'S CALL LIGHT, PT REQUESTING PRN BREATHING TREATMENT, RT COLEEN NOTIFIED, WILL COME TO PT'S ROOM FOR TREATMENT.
--- NOTE | 2017-04-24 06:26 | NUR ---
ANSWERED PT CALL LIGHT, IV D/C'D DUE TO DISCOMFORT, CATHETER BENT AND PULLED OUT, DOES NOT FLUSH, IV D/C'D WNL. NO CURRENT IV MEDS ON EMAR, DR. ARELLANO TELEPHONED, VERBAL OKAY TO LEAVE PT WITHOUT IV ACCESS AT THIS TIME.
--- NOTE | 2017-04-24 06:45 | NUR ---
IVF D/C'D. NO IV ACCESS AT THIS TIME DUE TO PULLED LINE, AWARE. PT RECEIVING PRN BREATHING TREATMENTS THROUGHOUT SHIFT, COARSE LUNGS AND WHEEZES HEARD THROUGHOUT SHIFT. PT HAS DENIED PAIN. QUANTITY SUFFICIENT VOIDS IN URINAL. SPENT NIGHT IN ROOM. CONTINUES ON DROPLET PRECAUTIONS.
--- NOTE | 2017-04-24 07:10 | NUR ---
HANDOFF REPORT RECEIVED FROM ANIMAL STICKER RN. PT RESTING IN BED. PT DENIES NEEDS AT THIS TIME.
--- NOTE | 2017-04-24 08:51 | NUR ---
PT SITTING IN CHAIR. RT TO BEDSIDE FOR NEB. PT ON 3L NC, O2 SATS 91%. PT DENIES PAIN. PT TOLERATING ADA DIET. CMS INTACT, WITHOUT EDEMA. BOWEL TONES ACTIVE, DENIES NAUSEA. PT WITHOUT IV ACCESS. PT DENIES OTHER NEEDS AT THIS TIME.
--- NOTE | 2017-04-24 09:44 | NUR ---
PT WALKED TO BATHROOM, PT HAD VOIDED IN HIS PANTS, PT CONTINUED TO VOID IN THE TOILET. PT THEN WAS CLEANED UP AND RETURNED TO THE CHAIR SITTING WITH CALL LIGHT IN REACH. PT ASKED FOR MORE COFFEE.
[2017-04-24] MEDS ORDERED: CEFUROXIME500 MG PO (10:06)
[2017-04-24] MEDS ORDERED: IPRAT-ALBUT 0.5-3 ML INH (10:06)
[2017-04-24] MEDS ORDERED: TAMIFLU75 MG PO (10:06)
[2017-04-24] MEDS ORDERED: NICORETTE4 M2 BUCCAL (10:07)
[2017-04-24] MEDS ORDERED: PREDNISONE20 MG PO (10:09)
--- NOTE | 2017-04-24 11:26 | NUR ---
PT REQUESTING NEB BEFORE DISCHARGE, RT CALLED UNAVAILABLE. DUO NEB ADMINISTERED PER ORDER. PT DRESSED, BELONGINGS COLLECTED. PT DENIES OTHER NEEDS AT THIS TIME.
== END 2017-04-24 12:25 | disposition home or self-care (01) | DRG 190 ==
LOC: ED 21:03 → MS 23:31
PROVIDERS: ADMIT Internal Medicine
DX: J44.1 Chronic obstructive pulmonary disease with (acute) exacerbation (principal); J96.21 Acute and chronic respiratory failure with hypoxia; J11.1 Influenza due to unidentified influenza virus with other respiratory manifestations; I10 Essential (primary) hypertension; G40.909 Epilepsy, unspecified, not intractable, without status epilepticus; E11.9 Type 2 diabetes mellitus without complications; G25.81 Restless legs syndrome; E78.5 Hyperlipidemia, unspecified; F17.200 Nicotine dependence, unspecified, uncomplicated; Z79.84 Long term (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 of oral hypoglycemic drugs
CPT/HCPCS: 36415; 71046; 80048; 80053; 83605; 83735; 83880; 84484; 85025; 87040; 94640; 94762; J0456; J0696; J1650; J2920; J2930; J7030; J7040; J7512

== ENCOUNTER 2017-05-27 08:53 | Emergency (ER) | payer MEDICARE, OTHER ==
[~2017-05-27] VITALS: Ht 175.3 cm; Wt 99.8 kg
--- OUTSIDE RECORDS SUMMARY | ~2017-05-27 | XMS | Clinical Summary ---
Demographics + + + | Address | [address] | | | [place] [address] | + + + | Home Phone | | + + + | Preferred Language | Unknown | + + + | Marital Status | Single | + + + | Taoism Affiliation | Unknown | + + + [...] Providers + +------+ + | Care Senior Account Manager Name | Role | Phone | + +------+ + | Jose Angel Reina MD | PP | Unavailable | + +------+ + Source Comments NIESHA is fully live on both EpicCare Ambulatory and EpicCare InPatient.[facility] Allerg[facility] Not on File Current Medications + [...]
--- OUTSIDE RECORDS SUMMARY | ~2017-05-27 | XMS | Clinical Summary ---
Demographics + + + | Address | [address] | | | [place] [address] | + + + | Home Phone [...] Team Providers + +------+ + | Care Fractionating Still Operator Name | Role | Phone | + +------+ + | Jose Angel Reina MD | PP | Unavailable | + +------+ + Source Comments NIESHA is fully live on both EpicCare Ambulatory and EpicCare InPatient.[facility] Allergies Not on File Current Medications + [...]
[~2017-05-27 08:53] MED LIST changes: +TAMIFLU75 MG PO
== END 2017-05-27 11:51 | disposition home or self-care (01) ==
LOC: ED 08:53
DX: R10.31 Right lower quadrant pain (principal); R10.32 Left lower quadrant pain; J44.9 Chronic obstructive pulmonary disease, unspecified; E11.9 Type 2 diabetes mellitus without complications; I10 Essential (primary) hypertension; G40.909 Epilepsy, unspecified, not intractable, without status epilepticus; F17.200 Nicotine dependence, unspecified, uncomplicated; Z88.1 Allergy status to other antibiotic agents; Z88.8 Allergy status to other drugs, medicaments and biological substances; Z79.899 Other long term (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; Z79.84 Long term (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 of oral hypoglycemic drugs
CPT/HCPCS: 71046; 80053; 81001; 83690; 84484; 85025; 94640; 99284

== ENCOUNTER 2017-10-04 01:26 | Emergency (ER) | payer MEDICARE ==
[~2017-10-04] VITALS: Ht 175.3 cm; Wt 99.8 kg
[2017-10-04] MEDS ORDERED: SILDENAFIL20 MG PO (01:41)
--- NOTE | 2017-10-04 05:51 | EKG ---
[facility] [address] [place] [address] Signed Normal sinus rhythm Left axis deviation Abnormal ECG When compared with ECG of 18-MAR-2017 22:08, premature atrial complexes are no longer present Confirmed by DUSTIN CROSS MD ([id number]) on 10/04/2017 5:50:51 AM Electronically Signed By: DUSTIN CROSS MD 10/04/17 0551 PATIENT NAME: DAUGHERTYKEVIN Electrocardiogram DATE OF : 46 PHYSICIAN: DUSTIN CROSS MD REPORT #: [id number] REPORT IS CONFIDENTIAL AND NOT TO BE RELEASED WITHOUT AUTHORIZATION
== END 2017-10-04 05:27 | disposition home or self-care (01) ==
LOC: ED 01:26
DX: J44.1 Chronic obstructive pulmonary disease with (acute) exacerbation (principal); E11.9 Type 2 diabetes mellitus without complications; I10 Essential (primary) hypertension; F17.200 Nicotine dependence, unspecified, uncomplicated; Z88.1 Allergy status to other antibiotic agents; Z88.8 Allergy status to other drugs, medicaments and biological substances; Z79.899 Other long term (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
CPT/HCPCS: 71045; 80053; 83735; 83880; 84484; 85025; 93005; 93010; 94644; 96374; 99284; J2930

== ENCOUNTER 2018-06-18 14:05 | Emergency (ER) | payer MEDICARE ==
[~2018-06-18] VITALS: Ht 175.3 cm; Wt 99.8 kg
--- OUTSIDE RECORDS SUMMARY | ~2018-06-18 | XMS | Clinical Summary ---
Demographics + + + | Address | [address] | | | [place] [address] | + + + | Home Phone | | + + + | Preferred Language | Unknown | + + + | Marital Status | | + + + | Yazidism Affiliation | [id number] | + + + | Race | Unknown | + + + | Ethnic Group | Unknown | + + + Author + + + | Author | [facility] | + + + | Organization | [facility] | + + + | Address | Unknown | + + + | Phone | Unavailable | + + + Support + + + + + | Name | Relationship | Address | Phone | + + + + + | Palak Daugherty | [address] | [id number], [place] | | | | | [address] | | + + + + + Care Team Providers + +------+ + | Care Vibrating Screen Operator Name | Role | Phone | + +------+ + | Jose Angel Reina MD | PP | | + +------+ + Allergies + + + + + + | Active Allergy | Reactions | Severity | Noted | Comments | | | | | Date | | + + + + + + | Varenicline | Syncope | Low | 05/19/19 | | | | | | 17 | | + + + + + + | Levofloxacin | Itching | Medium | 05/19/19 | | | | | | 17 | | + + + + + + Current Medications + + + +---------+------+------+-------+ | Prescription | Sig. | Disp. | Refills | Star | End | Statu | | | | | | t | Date | s | | | | | | Date | | | + + + +---------+------+------+-------+ | atorvastatin | Take 80 mg by mouth | | | 11/2 | | Activ | | (LIPITOR) 80 MG | daily. | | | 8/20 | | e | | tablet | | | | 16 | | | + + + +---------+------+------+-------+ | EPITOL 200 MG | | | | 11/3 | | Activ | | tablet | | | | 0/20 | | e | | | | | | 16 | | | + + + +---------+------+------+-------+ | fluticasone | 2 sprays by Each | | | 12/0 | | Activ | | (FLONASE) 50 MCG/ACT | Nare route daily. | | | 5/20 | | e | | nasal | | | | 16 | | | + + + +---------+------+------+-------+ | losartan (COZAAR) | Take 25 mg by mouth | | | 12/0 | | Activ | | 25 MG tablet | daily. | | | 1/20 | | e | | | | | | 16 | | | + + + +---------+------+------+-------+ | rOPINIRole | | | | 12/0 | | Activ | | (REQUIP) 1 MG tablet | | | | 4/20 | | e | | | | | | 16 | | | + + + +---------+------+------+-------+ | Cyanocobalamin | Take 1,000 mg by | | | | | Activ | | (VITAMIN B 12 PO) | mouth 2 (two) times | | | | | e | | | daily. | | | | | | + + + +---------+------+------+-------+ | metFORMIN | Take 500 mg by mouth | | | | | Activ | | (GLUCOPHAGE) 500 MG | 2 (two) times daily | | | | | e | | tablet | with meals. | | | | | | + + + +---------+------+------+-------+ | aspirin 325 MG | Take 325 mg by mouth | | | | | Activ | | tablet | daily. | | | | | e | + + + +---------+------+------+-------+ | senna (SENOKOT) | Take by mouth. | | | | | Activ | | 8.6 MG tablet | | | | | | e | + + + +---------+------+------+-------+ | acetaminophen | Take 500 mg by | | | | | Activ | | (TYLENOL) 500 MG | mouth. 1 TAB BID | | | | | e | | tablet | | | | | | | + + + +---------+------+------+-------+ | | Take 3 mLs by | | | | | Activ | | ipratropium-albutero | nebulization. | | | | | e | | l (DUO-NEB) 0.5-2.5 | | | | | | | | mg/3mL | | | | | | | + + + +---------+------+------+-------+ | predniSONE | Take 10 mg by mouth. | | | | | Activ | | (DELTASONE) 10 MG | | | | | | e | | tablet | | | | | | | + + + +---------+------+------+-------+ | sildenafil | Take 100 mg by | | | | | Activ | | (VIAGRA) 100 MG | mouth. 1 daily prior | | | | | e | | tablet | to intercourse pm | | | | | | + + + +---------+------+------+-------+ | albuterol | Inhale 2 puffs into | 1 | 11 | 02 | | Activ | | (PROVENTIL | the lungs as needed | Inhaler | | 6/20 | | e | | HFA;VENTOLIN HFA) | for Wheezing. | | | 17 | | | | 108 (90 BASE) | | | | | | | | MCG/ACT inhaler | | | | | | | + + + +---------+------+------+-------+ | | Inhale 1 puff into | 60 each | 11 | 05/06 | | Activ | | fluticasone-salmeter | the lungs 2 (two) | | | 6 | | e | | ol (ADVAIR) 500-50 | times daily. | | | 17 | | | | MCG/DOSE diskus | | | | | | | | inhaler | | | | | | | + + + +---------+------+------+-------+ | roflumilast | Take 1 tablet by | 30 | 11 | 05/06 | | Activ | | (DALIRESP) 500 MCG | mouth daily. | tablet | | 6 | | e | | tablet | | | | 17 | | | + + + +---------+------+------+-------+ | umeclidinium | Inhale 1 puff into | 1 | 11 | 05/06 | | Activ | | bromide (INCRUSE | the lungs daily. | Inhaler | | 09/22 | | e | | ELLIPTA) 62.5 | | | | 17 | | | | MCG/INH inhaler | | | | | | | + + + +---------+------+------+-------+ Active Problems + + + | Problem | Noted Date | + + + | Centrilobular emphysema (HCC) | 05/21/2016 | + + + | Chronic respiratory failure with hypoxia (HCC) | 05/21/2016 | + + + Social History + +-------+ +--------+------+ | Tobacco Use | Types | Packs/Day | Years | Date | | | | | Used | | + +-------+ +--------+------+ | Current Every Day | | 1 | 53 | | | Smoker | | | [...] + + + | Blood Pressure | 105/63 | 05/21/2016 1:58 PM PST | + + + + | Pulse | 90 | 05/21/2016 1:58 PM PST | + + + + | Temperature | 36.5 C (97.7 F) | 05/21/2016 1:58 PM PST | + + + + | Respiratory Rate | - | - | + + + + | Oxygen Saturation | 96% | 05/21/2016 1:58 PM PST | + + + + | Inhaled Oxygen | - | - | | Concentration | | | + + + + | Weight | 101.6 kg (224 lb) | 05/21/2016 1:58 PM PST | + + + + | Height | 175.3 cm (5' 9") | 05/21/2016 1:58 PM PST | + + + + | Body Mass Index | 33.08 | 05/21/2016 1:58 PM PST | + + + + Plan of Treatment + + + + + | Health Maintenance | Due Date | Last Done | Comments | + + + + + | Colon Cancer | | | | | Screening | 9 | | | | (Colonoscopy) | | [...] 06/14/2014, 01/18/2010 | | | Pneumococcal 65+ | 6 | | | | Low/Medium Risk (2 | | | | | of 2 - PPSV23) | | | | + + + + + | Vaccine: Influenza | | 01/21/2015, 12/28/2013, | | | (#1) | 8 | 03/16/2013, Additional history | | | | | exists | | + + + + + | Vaccine: | | 01/19/2012 | | | Dtap/Tdap/Td (2 - | 2 | | | | Td) | | | | + + + + + Results Not on filefrom Last 3 Months Insurance + +--------+ +--------+-------+---------+ | Payer | Benefi | Subscriber | Type | Phone | Address | | | t Plan | ID | | | | | | / | | | | | | | Group | | | | | + +--------+ +--------+-------+---------+ | [place] | [place] - | [id number] | Medica | | | | | MODA | | re | | | | | | | | | | | | | | | | | | | | | | | | | | | | | | | | | | | | | | | | [place] - | | | | | | | MODA | | | | | + +--------+ +--------+-------+---------+ + +--------+ +--------+ + + | Guarantor Name | Accoun | Relation to | Date | Phone | Billing Address | | | t Type | Patient | of | | | | | | | | | | + +--------+ +--------+ + + | KEVIN DAUGHERTY | Person | Self [birth year] Home: | [address] | | | [place] | | [phone] [place] | | | [place] | | | [phone] | [phone] | + +--------+ +--------+ + +
--- OUTSIDE RECORDS SUMMARY | ~2018-06-18 | XMS | Clinical Summary ---
Demographics + + + | Address | [address] | | | [place] [address] | + + + | Home Phone [...] [facility] | | | and [place] | + + + | Organization | [facility] | | | and [place] | + + + | Address | Unknown | + + + | Phone | Unavailable | + + + Support + + + + + | Name | Relationship | Address | Phone | + + + + + | Palak Daugherty | ECON | [address] | | | | | [address] | | + + + + + Care Team Providers + +------+ + | Care Health And Safety Inspector Name | Role | Phone | + [...] 500 mg by mouth | | | 12/04 | | Activ | | (GLUCOPHAGE) 500 mg | 2 times daily. | | | 07/23 | | e | | tablet | | | | 12 | | | + + + +---------+------+------+-------+ | carBAMazepine | Take 200 mg by mouth | | | 12/04 | | Activ | | (EPITOL) 200 mg | 4 times daily. | | | 07/23 | | e | | tablet | | | | 12 | | | + + + +---------+------+------+-------+ | Cyanocobalamin | Take 1,000 mcg by | | | | | Activ | | (B-12) 1000 MCG CAPS | mouth Daily. | | | | | e | + + + +---------+------+------+-------+ | oxygen | Inhale 3 L into the | | | | | Activ | | | lungs nightly. | | | | | e | + + + +---------+------+------+-------+ | fluticasone | 1 spray by Nasal | 16 g | 11 | 09/04 | | Activ | | (FLONASE) 50 | route Daily. | | | 05/25 | | e | | mcg/nasal spray | | | | 15 | | | + + + +---------+------+------+-------+ | aspirin 325 mg | Take 325 mg by mouth | | | | | Activ | | tablet | Daily. | | | | | e | + + + +---------+------+------+-------+ | acetaminophen | Take 1,300 mg by | | | | | [...] ONCE DAILY AT | tablet | | 05/25 | | e | | | BEDTIME | | | 16 | | | + + + +---------+------+------+-------+ | VENTOLIN HFA 108 | Inhale 2 puffs into | | | | | Activ | | (90 BASE) MCG/ACT | the lungs every 6 | | | | | e | | inhaler | hours as needed for | | | | | | | | Wheezing. | | | | | | + + + +---------+------+------+-------+ | nicotine | Inhale 1 Cartridge | | | | | Activ | | (NICOTROL) [...] | | | | | | type ([facility]) | | | | | | | [...] | Inhale 3 mLs into | | | | | Activ | | albuterol-ipratropiu | the lungs Every 4 | | | | | e | | m (DUONEB) 2.5-0.5 | hours. | | | | | | | mg/3 mL SOLN | | | | | | | + + + +---------+------+------+-------+ | senna (SENOKOT) | Take 2 tablets by | | | | | Activ | | 8.6 MG TABS | mouth Daily. | | | | | e | + + + +---------+------+------+-------+ | sildenafil | Take 100 mg by mouth | | | | | Activ | | (VIAGRA) 100 MG | as needed. 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0 | | | | Standard | | | | | drinks or | | | | | | | | | | equivalen | | | | | t | | | + + +---------+ + + + + | Sex Assigned at | Date Recorded | | | | + + + | Not on file | | + + + Last Filed Vital Signs + + + + | Vital Sign | Reading | Time Taken | + + + + | Blood Pressure | 120/80 | 07/08/2017 1312 PDT | + + + + | Pulse | 104 | 07/08/20171311 PDT | + + + + | Temperature | 36.4 C (97.6 F) | 07/08/20171311 PDT | + + + + | Respiratory Rate | 18 | 01/21/20151320 PDT | + + + + | Oxygen Saturation | 94% | 07/08/20171311 PDT | + + + + | Inhaled Oxygen | - | - | | Concentration | | | + + + + | Weight | 102.1 kg (225 lb 1.4 | 07/08/2017 1312 PDT | | | oz) | | + + + + | Height | 175.3 cm (5' 9") | 07/08/20171311 PDT | + + + + | Body Mass Index | 33.24 | 07/08/20171311 PDT | + + + + Plan of [...] + + + + | Hemoglobin A1c Q3 | | | | | Months | 7 | | | + + [...] 01/11/2017, 01/21/2015, | | | (#1) | 8 | 12/28/2013, Additional history | | | [...] | | | + +--------+ +--------+-------+---------+ | [employer] | MOD[facility] | [id number] | Medica | | | | | HEALTH | | re | | | | | MDCR | | | | | + +--------+ [...] Home: | [address] | | [place] | [place] | | 1951 | [phone] | [place] [address] | | | [place] | | | 1938 | | + +--------+ +--------+ + +
--- OUTSIDE RECORDS SUMMARY | ~2018-06-18 | XMS | Clinical Summary ---
Demographics + + + | Address | [address] | | | [place] [address] | + + + | Home Phone | | + + + | Preferred Language | Unknown | + + + | Marital Status | | + + + | Jewish Affiliation | 1061 | + + + | Race | Unknown | + + + | Ethnic Group | Unknown | + + + Author + + + | Author | [facility] | | | and [place] | + + + | Organization | [facility] | | | and [place] | + + + | Address | Unknown | + + + | Phone | Unavailable | + + + Support + + + + + | Name | Relationship | Address | Phone | + + + + + | Palak Daugherty | ECON | [address] | | | | | [address] | | + + + + + Care Team Providers + +------+ + | Care Senior Biostatistician Name | Role | Phone | + [...] | | | | | | type ([facility]) | | | | | | [...] + | COPD (chronic obstructive pulmonary disease) ([facility]) | | + + + | DM type 2 (diabetes mellitus, type 2) ([facility]) | | + + + | Hypertension [...] | [employer] | MODA | [id number] | Medica | | | | | [...] [place] | [place] | | 1951 | [phone] | [place] [address] | | | [place] | | | 1938 | | + +--------+ +--------+ + +
--- OUTSIDE RECORDS SUMMARY | ~2018-06-18 | XMS | Clinical Summary ---
Demographics + + + | Address | [address] | | | [place] [address] | + + + | Home Phone [...] Team Providers + +------+ + | Care Anodiser Name | Role | Phone | + +------+ + | Jose Angel Reina MD | PP | Unavailable | + +------+ + Source Comments NIESHA is fully live on both EpicCare Ambulatory and EpicCare InPatient.[facility] Allergies Not on File Current Medications + [...] | + + + + + | Pneumococcal (Adult) | | | | | (1 of 2 - PCV13) | 4 | | | + + + + + | Influenza (Flu) | | | | | vaccination (#1) | 8 | | | + + + + + Results Not on filefrom Last 3 Months"
--- OUTSIDE RECORDS SUMMARY | ~2018-06-18 | XMS | Clinical Summary ---
Demographics + + + | Address | [address] | | | [place] [address] | + + + | Home Phone | | + + + | Preferred Language | Unknown | + + + | Marital Status | | + + + | Druze Affiliation | 1061 | + + + | Race | Unknown | + + + | Ethnic Group | Unknown | + + + Author + + + | Author | [facility] | + + + | Organization | [facility] | + + + | Address | Unknown | + + + | Phone | Unavailable | + + + Support + + + + + | Name | Relationship | Address | Phone | + + + + + | Palak Daugherty | ECON | [address], [place] | | | | | [address] | | + + + + + Care Team Providers + +------+ + | Care Diver Pumper Name | Role | Phone | + [...] [place] - [place] | [place] - | [id number] | Medica | | | | | [...] | [place] | | | 1939 | [address] | + +--------+ +--------+ + +
--- OUTSIDE RECORDS SUMMARY | ~2018-06-18 | XMS | Clinical Summary ---
Demographics + + + | Address | [address] | | | [place] [address] | + + + | Home Phone [...] Team Providers + +------+ + | Care Inker Name | Role | Phone | + +------+ + | Jose Angel Reina MD | PP | Unavailable | + +------+ + Source Comments NIESHA is fully live on both EpicCare Ambulatory and EpicCare InPatient.[facility] Allergies Not on File Current Medications [...]
[~2018-06-18 14:05] MED LIST changes: +SILDENAFIL20 MG PO; +ZOFRAN ODT4 MG PO
--- OUTSIDE RECORDS SUMMARY | 2018-06-18 14:08 | XMS ---
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 - Has Care Guidelines CARE PROVIDERS DONNIE, [facility] Medicine 01/25/2018-Current LYN Nieto PHONE: Unknown Alfredo Maya Treatment Current PHONE: Unknown Jossue Current PHONE: Unknown Topher has no Care Guidelines for this patient. Care History Medical/Surgical 03/01/[address] [facility] - PATIENT HAS WORKED WITH [facility] 2 TIMES NOW AND HAS GONE THROUGH THE COMPLETE PROGRAM BOTH TIMES. - PATIENT IS NOW WORKING WITH NID[facility] -RESPIRATORY THERAPIST AT [facility]. - PLEASE CONTACT NIDIA [phone] IF PATIENT IS SEEN IN THE ED DUE TO COPD/ SOB SYMPTOMS. [facility]IA CAN HELP WORK WITH PCP TO MAKE MEDICATION CHANGES/ ADJUSTMENTS. 10/07/[address] [facility] Care Recommendation: This patient has had 5 or more Emergency Department visits in the last 12 months.\T\nbsp; Patient requires education on the scope and purpose of the ED as an acute care provider not a Primary Care Provider and should not be utilized for chronic conditions.\T\nbsp; If patient returns to ED please contact Community Health WorkerJuany at [phone]. These are guidelines and the provider should exercise clinical judgment when providing care. 03/09/[address] [facility] PATIENT IS ENROLLED IN CARDIO/PULMONARY PROGRAM AT [facility]. Social 03/09/[address] [facility] PATIENT RECEIVES FOOD STAMPS THROUGH [facility] E.D. VISIT COUNT (12 MO.) 5 [facility]. TOTAL 5 NOTE: Visits indicate total known visits. ED/UCC VISIT TRACKING (12 MO.) 06/18/2018 14:06 [facility] [place] TYPE: Emergency COMPLAINT: - DIZZINESS, SOB 02/28/2018 22:36 [facility] [place] TYPE: Emergency COMPLAINT: - VOMITING DIAGNOSES: - Nicotine dependence, unspecified, uncomplicated - Allergy status to other drugs, medicaments and biological substances status - buttermaker (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 - residential (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 of oral hypoglycemic drugs - Allergy status to other antibiotic agents status - Other ferry terminal agent (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 - Chest pain, unspecified - Nausea with vomiting, unspecified - Essential (primary) hypertension - Type 2 diabetes mellitus without complications - Chronic obstructive pulmonary disease with (acute) exacerbation - Dependence on supplemental oxygen 02/28/2018 12:46 [facility] [place] TYPE: Emergency COMPLAINT: - SOB DIAGNOSES: - Dependence on supplemental oxygen - Type 2 diabetes mellitus without complications - Essential (primary) hypertension - Shortness of breath - Other ferry terminal agent (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 - Nicotine dependence, unspecified, uncomplicated - Allergy status to other antibiotic agents status - Chronic obstructive pulmonary disease with (acute) exacerbation - Allergy status to other drugs, medicaments and biological substances status 01/25/2018 00:54 [facility] [place] TYPE: Emergency COMPLAINT: - DIZZINESS,HEADACHE DIAGNOSES: - Dizziness and giddiness - Allergy status to other antibiotic agents status - Headache - Essential (primary) hypertension - Chronic obstructive pulmonary disease, unspecified - Nicotine dependence, unspecified, uncomplicated - residential (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 - Other fpc (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 - residential (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 of oral hypoglycemic drugs - Type 2 diabetes mellitus without complications - Headache - Dizziness and giddiness - Allergy status to other drugs, medicaments and biological substances status 10/04/2017 01:27 [facility] [place] TYPE: Emergency COMPLAINT: - WEAKNESS DIAGNOSES: - Shortness of breath - Allergy status to other drugs, medicaments and biological substances status - Nicotine dependence, unspecified, uncomplicated - Type 2 diabetes mellitus without complications - Other ferry terminal agent (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 - Allergy status to other antibiotic agents status - Essential (primary) hypertension - Chronic obstructive pulmonary disease with (acute) exacerbation INPATIENT VISIT TRACKING (12 MO.) No inpatient visits to display in this time frame [id number]
[2018-06-18] MEDS ORDERED: ZITHROMAX250 MG PO (16:16)
[2018-06-18] MEDS ORDERED: PREDNISONE20 MG PO (16:16)
== END 2018-06-18 16:26 | disposition home or self-care (01) ==
LOC: ED 14:05
DX: J44.0 Chronic obstructive pulmonary disease with (acute) lower respiratory infection (principal); J44.1 Chronic obstructive pulmonary disease with (acute) exacerbation; J18.1 Lobar pneumonia, unspecified organism; E11.9 Type 2 diabetes mellitus without complications; I10 Essential (primary) hypertension; F17.200 Nicotine dependence, unspecified, uncomplicated; Z88.1 Allergy status to other antibiotic agents; Z88.8 Allergy status to other drugs, medicaments and biological substances; Z79.84 Long term (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 of oral hypoglycemic drugs; Z79.82 Long term (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; Z79.899 Other long term (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; Z99.81 Dependence on supplemental oxygen
CPT/HCPCS: 71045; 87502; 94640; 99283-25; J7512

== ENCOUNTER 2019-02-26 01:08 | Emergency (ER) | payer MEDICARE ==
[~2019-02-26] VITALS: Ht 175.3 cm; Wt 99.8 kg
--- OUTSIDE RECORDS SUMMARY | ~2019-02-26 | XMS | Encounter Summary ---
Demographics + + + | Address | [address] | | | [place] [address] | + + + | Home Phone | | + + + | Preferred Language | Unknown | + + + | Marital Status | | + + + | Gnosticist Affiliation | 1061 | + + + | Race | Unknown | + + + | Ethnic Group | Unknown | + + + Author + + + | Author | [facility] | | | and [place] | + + + | Organization | [facility] | | | and [place] | + + + | Address | Unknown | + + + | Phone | Unavailable | + + + Support + + + + + | Name | Relationship | Address | Phone | + + + + + | Palak Aguilar | ECON | [address] | | | | | [address] | | + + + + + Care Team Providers + +------+ + | Care Crusher Setter Name | Role | Phone | + +------+ + | Jose Angel Reina MD | PCP | | + +------+ + Reason for Visit + + + | Reason | Comments | + + + | Medication Refill | | + + + Encounter Details +--------+--------+ + + + | Date | Type | Department | Care Team | Description | +--------+--------+ + + + | 03/30/ | Refill | [facility] [place] | [place], | Medication Refill | | 2011 | | PULMONARY [address] | Ling Frazier MD | | | | | [place], | | | | | | [place] [address] | | | | | | [phone] | | | +--------+--------+ + + + [...] as of this encounter Plan of Treatment Not on filedocumented as of this encounter Visit Diagnoses Not on filedocumented in this encounter"
--- OUTSIDE RECORDS SUMMARY | ~2019-02-26 | XMS | Encounter Summary ---
Demographics + + + | Address | [address] | | | [place] [address] | + + + | Home Phone | | + + + | Preferred Language | Unknown | + + + | Marital Status | | + + + | Gnosticism Affiliation | 1061 | + + + | Race | Unknown | + + + | Ethnic Group | Unknown | + + + Author + + + | Author | [facility] | | | and [place] | + + + | Organization | [facility] | | | and [place] | + + + | Address | Unknown | + + + | Phone | Unavailable | + + + Support + + + + + | Name | Relationship | Address | Phone | + + + + + | Palak Aguilar | ECON | [address] | | | | | [address] | | + + + + + Care Team Providers + +------+ + | Care Clicking Machine Operator Name | Role | Phone [...] Description | +--------+--------+ + + + | 11/15/ | Refill | [facility] [place] | [place], | Medication Refill | | 2013 | | PULMONARY [address] | Ling Frazier MD | | | | | [place], | | | | | | [place] [address] | | | | | | [phone] | | | +--------+--------+ + + + [...] + | Comments: currently smoking up to 1ppd. He never did call the quitline. | + + + + +---------+ + [...]
--- OUTSIDE RECORDS SUMMARY | ~2019-02-26 | XMS | Encounter Summary ---
Demographics + + + | Address | [address] | | | [place] [address] | + + + | Home Phone | | + + + | Preferred Language | Unknown | + + + | Marital Status | | + + + | Taoism Affiliation | 1061 | + + + | Race | Unknown | + + + | Ethnic Group | Unknown | + + + Author + + + | Author | [facility] | | | and [place] | + + + | Organization | [facility] | | | and [place] | + + + | Address | Unknown | + + + | Phone | Unavailable | + + + Support + + + + + | Name | Relationship | Address | Phone | + + + + + | Palak Aguilar | ECON | [address] | | | | | [address] | | + + + + + Care Team Providers + +------+ + | Care Climate Change Risk Assessor Name | Role | Phone | + +------+ + | Jose Angel Reina MD | PCP | | + +------+ + Reason for Visit +--------+ + | Reason | Comments | +--------+ + | Other | | +--------+ + Encounter Details +--------+ + + + + | Date | Type | Department | Care Team | Description | +--------+ + + + + | 05/27/ | Telephone | [facility] [place] | Claudia Michelle, | Other | | 2012 | | PULMONARY [address] | RN | | | | | [place], | | | | | | [place] [address] | | | | | | [phone] | | | +--------+ + + + [...]
--- OUTSIDE RECORDS SUMMARY | ~2019-02-26 | XMS | Encounter Summary ---
Demographics + + + | Address | [address] | | | [place] [address] | + + + | Home Phone | | + + + | Preferred Language | Unknown | + + + | Marital Status | Single | + + + | Baptist Affiliation | Unknown | + + + | Race | Unknown | + + + | Ethnic Group | Other Race | + + + Author + + + | Author | [facility] | + + + | Organization | [facility] | + + + | Address | Unknown | + + + | Phone | Unavailable | + + + Care Team Providers + +------+ + | Care Silk Weaver Name | Role | Phone | + +------+ + | Jose Angel Reina MD | PCP | | + +------+ + Reason for Referral Diagnostic Testing +--------+--------+ + + + + | Status | Reason | Specialty | Diagnoses / | Referred By | Referred To | | | | | Procedures | Contact | Contact | +--------+--------+ + + + + | Closed | | Clinical | Procedures | Cnl Eeg | Cnl Eeg Hrc | | | | Neurophysiolo | EEG | [facility]rc [address] | [address] | | | | gy | ROUTINE | [address] | [address] | | | | | | [address] | [address] | | | | | | Mailcode: | Mailcode: | | | | | | CR120 | CR120 | | | | | | Gm | Gm | | | | | | Research | Research | | | | | | [place] | | | | | | [place], [place] | [place], [place] | | | | | | [address] | [address] | | | | | | Phone: | Phone: | | | | | | [phone] | [phone] | | | | | | Fax: | Fax: | | | | | | [phone] | [phone] | +--------+--------+ + + + + Encounter Details +--------+ + + + + | Date | Type | Department | Care Team | Description | +--------+ + + + + | 02/03/ | Outside | Neurophysiology | Faisal Kebede | | | 2010 | Referral | EEG at [facility] [address] | MD ELIE Walls | | | | Order | [facility] | [facility] | | | | | Mailcode: CR120 | [address] | | | | | [facility] | [place], [place] | | | | | [place], [place] | [address] | | | | | [address] | [phone] | | | | | [phone] | | | +--------+ + + + + Social History + +-------+ +--------+------+ | Tobacco Use | Types | Packs/Day | Years | Date | | | | | Used | | + +-------+ +--------+------+ | Never Assessed | | | | | + +-------+ +--------+------+ + + + | Sex Assigned at [...] Not on filedocumented as of this encounter Procedures + +--------+ + + + | Procedure Name | Priori | Date/Time | Associated Diagnosis | Comments | | | ty | | | | + +--------+ + + + | EEG ROUTINE | Routin | 01/30/2011 | | Results for this | | | e | | | procedure are in the | | | | | | results section. | + +--------+ + + + documented in this encounter Results EEG ROUTINE (01/30/2011) + + | Specimen | + + | | + + + + + | Narrative | Performed At | + + + | Patient Name: Nazario Aguilar Sr. Date of : 1950 | | | Date of Test: 01/30/2011 Place | | | of Service: [facility] Department: EEG [facility] - [id number] | | | ROUTINE EEG this is a routine EEG in a 60-year-old man. | | | Medications include carbamazepine, lisinopril, simvastatin, | | | prednisone. The awake background contains a posteriorly dominant | | | and symmetrically distributed 8 Hz alpha rhythm that blocks with eye | | | opening. Occasionally this slows below 8 Hz, usually in | | | association with early drowsiness. During drowsiness there is a low | | | voltage mixed frequency background. A well-developed stage two | | | sleep recording is not obtained. There are no significant changes | | | with hyperventilation or with intermittent photic stimulation. | | | Clinical interpretation: this is a normal awake and drowsy EEG. | | | There were no epileptiform discharges. Markel Genao M.D. | | | Dept. Of Neurology | | + + + documented in this encounter Visit Diagnoses Not on filedocumented in this encounter"
--- OUTSIDE RECORDS SUMMARY | ~2019-02-26 | XMS | Encounter Summary ---
Demographics + + + | Address | [address] | | | [place] [address] | + + + | Home Phone | | + + + | Preferred Language | Unknown | + + + | Marital Status | | + + + | Hoahaoism Affiliation | 1061 | + + + | Race | Unknown | + + + | Ethnic Group | Unknown | + + + Author + + + | Author | [facility] | | | and [place]arg[place] | + + + | Organization | [facility] | | | and [place] | + + + | Address | Unknown | + + + | Phone | Unavailable | + + + Support + + + + + | Name | Relationship | Address | Phone | + + + + + | Palak Aguilar | ECON | [address] | | | | | [address] | | + + + + + Care Team Providers + +------+ + | Care Property Insurance Agent Name | Role | Phone | + [...] + + | 06/21/ | Telephone | [facility] [place] | [place], | Other ([employer] | | 2013 | | PULMONARY [address] | Ling Frazier MD | Solution ) | | | | [place], | | | | | | [place] [address] | | | | | | [phone] | | | +--------+ + + + [...] filedocumented as of this encounter Visit Diagnoses + + | Diagnosis | + + | COPD (chronic obstructive pulmonary disease) (HCC) - Primary Chronic airway | | obstruction, not elsewhere classified | + + documented in this encounter"
--- OUTSIDE RECORDS SUMMARY | ~2019-02-26 | XMS | Encounter Summary ---
Demographics + + + | Address | [address] | | | [place] [address] | + + + | Home Phone | | + + + | Preferred Language | Unknown | + + + | Marital Status | | + + + | Roman Catholic Affiliation | 1061 | + + + | Race | Unknown | + + + | Ethnic Group | Unknown | + + + Author + + + | Author | [facility] | | | and Vargasana | + + + | Organization | [facility] | | | and [place] | + + + | Address | Unknown | + + + | Phone | Unavailable | + + + Support + + + + + | Name | Relationship | Address | Phone | + + + + + | Palak Aguilar | ECON | [id number] [place] | | | | | [address] | | + + + + + Care Team Providers + +------+ + | Care Lot Attendant Name | Role | Phone | + +------+ + PCP | Unavailable | + +------+ + Encounter Details +--------+ + + + + | Date | Type | Department | Care Team | Description | +--------+ + + + + | 01/11/ | Abstract | [facility] | Madeleine Connelly | | | 2011 | | [facility] | MD [address] | | | | | PATIENT PLACEMENT [address] | [address] | | | | | [address], | [place] [address] | | | | | [place] [address] | [phone] | | | | | [phone] | | | +--------+ + + + [...]
--- OUTSIDE RECORDS SUMMARY | ~2019-02-26 | XMS | Encounter Summary ---
Demographics + + + | Address | [address] | | | [place] [address] | + + + | Home Phone | | + + + | Preferred Language | Unknown | + + + | Marital Status | | + + + | Jehovah'S Witness Affiliation | 1061 | + + + | Race | Unknown | + + + | Ethnic Group | Unknown | + + + Author + + + | Author | [facility] | | | and [place] | + + + | Organization | [facility] | | | and [place] | + + + | Address | Unknown | + + + | Phone | Unavailable | + + + Support + + + + + | Name | Relationship | Address | Phone | + + + + + | Palak Aguilar | ECON | [address] | | | | | [address] | | + + + + + Care Team Providers + +------+ + | Care Animal Stunner Name | Role | Phone | + [...] | [place], | Medication Refill | | 2012 | | PULMONARY [address] | Ling Frazier MD | | | | | [place], | | | | | | [place] [address] | | | | | | [phone] | | | +--------+--------+ + + + [...]
--- OUTSIDE RECORDS SUMMARY | ~2019-02-26 | XMS | Clinical Summary ---
Demographics + + + | Address | [address] | | | [place] [address] | + + + | Home Phone | | + + + | Preferred Language | Unknown | + + + | Marital Status | | + + + | Pentecostalism Affiliation | 1061 | + + + | Race | Unknown | + + + | Ethnic Group | Unknown | + + + Author + + + | Author | [facility] | | | and Vargasana | + + + | Organization | [facility] | | | and [place] | + + + | Address | Unknown | + + + | Phone | Unavailable | + + + Support + + + + + | Name | Relationship | Address | Phone | + + + + + | Palak Aguilar | ECON | [address] | | | | | [address] | | + + + + + Care Team Providers + +------+ + | Care Professional Engineer Name | Role | Phone | + +------+ + | Jose Angel Reina MD | PCP | | + +------+ + Allergies + + + + + + | Active Allergy | Reactions | Severity | Noted | Comments | | | | | Date | | + + + + + + | Levofloxacin | Itching | High | 05/19/19 | | | | | | 17 | | + + + + + + | Varenicline | Other (See Comments) | Medium | 05/19/19 | Dizziness | | | | | 17 | | + + + + + + Medications + + + +---------+------+------+-------+ | Medication | Sig | Dispensed | Refills | Star | End | Statu | | | | | | t | Date | s | | | | | | Date | | | + + + +---------+------+------+-------+ | metFORMIN | Take 500 mg by mouth | | 0 | 12/04 | | Activ | | (GLUCOPHAGE) 500 mg | 2 times daily. | | | 07/23 | | e | | tablet | | | | 12 | | | + + + +---------+------+------+-------+ | carBAMazepine | Take 200 mg by mouth | | 0 | 12/04 | | Activ | | (EPITOL) 200 mg | 4 times daily. | | | 07/23 | | e | | tablet | | | | 12 | | | + + + +---------+------+------+-------+ | Cyanocobalamin | Take 1,000 mcg by | | 0 | | | Activ | | (B-12) 1000 MCG CAPS | mouth Daily. | | | | | e | + + + +---------+------+------+-------+ | oxygen | Inhale 3 L into the | | 0 | | | Activ | | | lungs nightly. | | | | | e | + + + +---------+------+------+-------+ | fluticasone | 1 spray by Nasal | 16 g | 11 | 06/ | | Activ | | (FLONASE) 50 | route Daily. | | | /20 | | e | | mcg/nasal spray | | | | 15 | | | + + + +---------+------+------+-------+ | aspirin 325 mg | Take 325 mg by mouth | | 0 | | | Activ | | tablet | Daily. | | | | | e | + + + +---------+------+------+-------+ | acetaminophen | Take 1,300 mg by | | 0 | | | Activ | | (TYLENOL) 650 MG CR | mouth Daily. | | | | | e | | tablet | | | | | | | + + + +---------+------+------+-------+ | losartan (COZAAR) | Take 1 tablet by | 30 | 0 | 04/1 | | Activ | | 25 mg tablet | mouth Daily. | tablet | | 1/20 | | e | | | | | | 16 | | | + + + +---------+------+------+-------+ | rOPINIrole | TAKE ONE TABLET BY | 30 | 3 | 04/2 | | Activ | | (REQUIP) 1 mg tablet | MOUTH ONCE DAILY AT | tablet | | 2/20 | | e | | | BEDTIME | | | 16 | | | + + + +---------+------+------+-------+ | VENTOLIN HFA 108 | Inhale 2 puffs into | | 0 | | | Activ | | (90 BASE) MCG/ACT | the lungs every 6 | | | | | e | | inhaler | hours as needed for | | | | | | | | Wheezing. | | | | | | + + + +---------+------+------+-------+ | nicotine | Inhale 1 Cartridge | | 0 | | | Activ | | (NICOTROL) 10 mg | into the lungs as | | | | | e | | inhaler | needed for Smoking | | | | | | | | cessation. | | | | | | + + + +---------+------+------+-------+ | roflumilast | TAKE ONE TABLET BY | 30 | 11 | 09/03 | | Activ | | (DALIRESP) 500 mcg | MOUTH ONCE DAILY | tablet | | 3/20 | | e | | tabletIndications: | | | | 16 | | | | Chronic obstructive | | | | | | | | pulmonary disease, | | | | | | | | unspecified COPD | | | | | | | | type ([facility]) | | | | | | | + + + +---------+------+------+-------+ | | Inhale 1 puff into | 1 each | 11 | 09/03 | | Activ | | fluticasone-salmeter | the lungs 2 times | | | 06/22 | | e | | ol (ADVAIR DISKUS) | daily. | | | 16 | | | | 500-50 mcg/puff | | | | | | | | diskus inhaler | | | | | | | + + + +---------+------+------+-------+ | | Inhale 3 mLs into | | 0 | | | Activ | | albuterol-ipratropiu | the lungs Every 4 | | | | | e | | m (DUONEB) 2.5-0.5 | hours. | | | | | | | mg/3 mL SOLN | | | | | | | + + + +---------+------+------+-------+ | senna (SENOKOT) | Take 2 tablets by | | 0 | | | Activ | | 8.6 MG TABS | mouth Daily. | | | | | e | + + + +---------+------+------+-------+ | sildenafil | Take 100 mg by mouth | | 0 | | | Activ | | (VIAGRA) 100 MG | as needed. | | | | | e | | tablet | | | | | | | + + + +---------+------+------+-------+ | rosuvastatin | Take 20 mg by mouth | | 0 | | | Activ | | (CRESTOR) 20 mg | nightly. | | | | | e | | tablet | | | | | | | + + + +---------+------+------+-------+ Active Problems + + + | Problem | Noted Date | + + + | Allergic rhinitis | 09/24/2014 | + + + | Ataxia | 09/27/2013 | + + + | Nocturnal hypoxemia due to emphysema | 06/15/2013 | + + + | Lumbar facet arthropathy | 04/27/2013 | + + + | Lumbalgia | 04/27/2013 | + + + | Periodic limb movement disorder | 07/20/2011 | + + + | Tobacco abuse | | + + + | COPD (chronic obstructive pulmonary disease) | | + + + | DM type 2 (diabetes mellitus, type 2) | | + + + | Hypertension | | + + + | DYSLIPIDEMIA | | + + + | ANEMIA | | + + + | Rotator cuff arthropathy | | + + + Immunizations + + + + | Name | Administration Dates | Next Due | + + + + | INFLUENZA 63 Y OR >, | 01/11/2017 | | | TRIVALENT HIGH-DOSE | | | + + + + | INFLUENZA PF 16 Y OR | 03/16/2013, 01/19/2012 | | | >,TRIVALENT | | | | RECOMBINANT | | | + + + + | INFLUENZA PF | 01/21/2015, 12/28/2013 | | | QUAD(PED/ADOL/ADULT) | | | | ,PSKT or VIAL | | | + + + + | PNEUMOCOCCAL | 06/14/2014 | | | CONJUGATE 13-VALENT | | | | (PCV13) | | | + + + + | PNEUMOCOCCAL | 01/18/2010 | | | POLYSACCHARIDE | | | | 23-VALENT (PPSV23) | | | + + + + | TDAP, (ADOL/ADULT) | 01/19/2012 | | + + + + Family History + + +------+ + | Medical History | Relation | Name | Comments | + + +------+ + | Cancer | Brother | | | + + +------+ + | Stroke | Father | | | + + +------+ + | Arthritis | Mother | | | + + +------+ + | Breast cancer | Mother | | | + + +------+ + | Heart disease | Mother | | | + + +------+ + + +------+ + + | Relation | Name | Status | Comments | + +------+ + + | Brother | | | | + +------+ + + | Brother | | | | + +------+ + + | Brother | | Alive | | + +------+ + + | Brother | | Alive | | + +------+ + + | Daughter | | Alive | | + +------+ + + | Father | | | | + +------+ + + | Mother | | | | + +------+ + + | Son | | Alive | | + +------+ + + Social History + + + [...] recent travel history available. | + + Last Filed Vital Signs + + + + + | Vital Sign | Reading | Time Taken | Comments | + + + + + | Blood Pressure | 120/80 | 07/08/2017 1:12 PM | | | | | PDT | | + + + + + | Pulse | 104 | 07/08/2017 1:12 PM | | | | | PDT | | + + + + + | Temperature | 36.4 C (97.6 F) | 07/08/2017 1:12 PM | | | | | PDT | | + + + + + | Respiratory Rate | 18 | 01/21/2015 1:21 PM | | | | | PDT | | + + + + + | Oxygen Saturation | 94% | 07/08/2017 1:12 PM | 3 L/M | | | | PDT | | + + + + + | Inhaled Oxygen | - | - | | | Concentration | | | | + + + + + | Weight | 102.1 kg (225 lb 1.4 | 07/08/2017 1:12 PM | | | | oz) | PDT | | + + + + + | Height | 175.3 cm (5' 9") | 07/08/2017 1:12 PM | | | | | PDT | | + + + + + | Body Mass Index | 33.24 | 07/08/2017 1:12 PM | | | | | PDT | | + + + + + Plan of Treatment + + + + + | Health Maintenance | Due Date | Last Done | Comments | + + + + + | Hepatitis C | | | | | Screening | 9 | | | + + + + + | Diabetic Eye Exam | | | | | | 7 | | | + + + + + | Diabetic Foot Exam | | | | | | 7 | | | + + + + + | Hemoglobin A1c | | | | | Screening | 7 | | | + + + + + | Vaccine: Zoster (1 | | | | | of 2) | 9 | | | + + + + + | Lung Cancer | | | | | Screening | 4 | | | + + + + + | AAA Screening | | | | | | 4 | | | + + + + + | Adult Annual | | | | | Wellness Visit | 5 | | | + + + + + | Vaccine: | | 06/14/2014, 01/18/2010 | | | Pneumococcal 65+ (2 | 6 | | | | of 2 - PPSV23) | | | | + + + + + | Vaccine: Influenza | | 01/11/2017, 01/21/2015, | | | (#1) | 9 | 12/28/2013, Additional history | | | | | exists | | + + + + + | Vaccine: | | 01/19/2012 | | | Dtap/Tdap/Td (2 - | 2 | | | | Td) | | | | + + + + + | Colorectal Cancer | | 04/05/2014 | | | Screening | 5 | | | | (Colonoscopy) | | | | + + + + + Results Not on filefrom Last 3 Months Insurance + +--------+ +--------+-------+---------+--------+ | Payer | Benefi | Subscriber | Effect | Phone | Address | Type | | | t Plan | ID | brady | | | | | | / | | Dates | | | | | | Group | | | | | | + +--------+ +--------+-------+---------+--------+ | [employer] | [employer] | [id number] | 07/08/19 | | | Medica | | | HEALTH | | 18-Pre | | | re | | | MDCR | | sent | | | | + +--------+ +--------+-------+---------+--------+ + +--------+ +--------+ + + | Guarantor Name | Accoun | Relation to | Date | Phone | Billing Address | | | t Type | Patient | of | | | | | | | | | | + +--------+ +--------+ + + | Nazario Aguilar | Person | Self | [birth year] | [address] | | [place] . | al/Fam | | 1951 | [phone] | [place] [address] | | | meena | | | 7 (Home) | | + +--------+ +--------+ + + Advance Directives + + + + + | Type | Date Recorded | Patient | Explanation | | | | Patient Support Partner | | + + + + + | Power of | | | | | Shipfitters Supervisor | | | | + + + + + | Advance | 04/20/2014 8:49 | | | | Directive | AM | | | + + + + +
--- OUTSIDE RECORDS SUMMARY | ~2019-02-26 | XMS | Encounter Summary ---
Demographics + + + | Address | [address] | | | [place] [address] | + + + | Home Phone | | + + + | Preferred Language | Unknown | + + + | Marital Status | | + + + | Muslim Affiliation | 1061 | + + + | Race | Unknown | + + + | Ethnic Group | Unknown | + + + Author + + + | Author | [facility] | | | and Vargasana | + + + | Organization | [facility] | | | and [place] | + + + | Address | Unknown | + + + | Phone | Unavailable | + + + Support + + + + + | Name | Relationship | Address | Phone | + + + + + | Palak Aguilar | ECON | [address] | | | | | [address] | | + + + + + Care Team Providers + +------+ + | Care Metal Milling Machine Operator Name | Role | Phone | + +------+ + | Jose Angel Reina MD | PCP | | + +------+ + Encounter Details +--------+ + + + + | Date | Type | Department | Care Team | Description | +--------+ + + + + | 06/16/ | [facility] | [facility] | [place], | Chronic obstructive | | 2016 | Encounter | MED CTR PULMONARY | Ling Frazier MD | pulmonary disease, | | | | [address] | | unspecified COPD | | | | [place], | | type (HCC); | | | | [place] [address] | | Hypoxemia | | | | [phone] | | | +--------+ + + + [...] | + +---+---+---+ + + | Comments: 06/17/15: "Down to 1/2 pack/day" | + + + + +---------+ + [...] + + documented as of this encounter Medications at Time of Discharge [...] +---------+ + + | oxygen | Inhale 3 L into the | | 0 | | | | | lungs nightly. | | | | | + + + +---------+ + + | ADVAIR DISKUS | INHALE ONE DOSE BY | 60 each | 5 | 04/04/20 | | | 500-50 MCG/DOSE | MOUTH TWICE DAILY. | | | 15 | 6 | | diskus inhaler | RINSE MOUTH AFTER | | | | | | | USE. | | | | | + + + +---------+ + + | albuterol (PROAIR | Inhale 2 puffs into | 1 | 5 | 02/12/20 | | | HFA) 90 mcg/puff | the lungs every 6 | Inhaler | | 15 | 6 | | inhaler | hours as needed. | | | | | + + + +---------+ + + | albuterol 2.5 mg/3 | Take 3 mLs by | 360 | 11 | 06/17/19 | | | mL nebulizer | nebulization every 6 | vial | | 16 | 8 | | solutionIndications: | hours as needed for | | | | | | Chronic obstructive | Wheezing or | | | | | | pulmonary disease, | Shortness of Breath. | | | | | | unspecified COPD | Dx: J44.9 RINA: 99 | | | | | | type (HCC) | months | | | | | + + + +---------+ + + | atorvaSTATin | Take 80 mg by mouth | | 0 | | | | (LIPITOR) 80 MG | nightly. | | | | 8 | | tablet | | | | | | + + + +---------+ + + | guaiFENesin | Take 1,200 mg by | | 0 | | | | (MUCINEX) 600 mg 12 | mouth 2 times daily. | | | | 8 | | hr tablet | | | | | | + + + +---------+ + + | lisinopril | Take 2.5 mg by mouth | | 0 | | | | (PRINIVIL,ZESTRIL) | Daily. | | | | 6 | | 2.5 MG tablet | | | | | | + + + +---------+ + + | nicotine | Inhale 1 cartridge | 168 | 11 | 06/17/19 | | | (NICOTROL) 10 mg | into the lungs as | each | | 16 | 6 | | inhaler | needed for Smoking | | | | | | | cessation for up to | | | | | | | 30 days. | | | | | + + + +---------+ + + | predniSONE | 4 tabs orally daily | 30 | 0 | 05/20/19 | | | (DELTASONE) 10 mg | for 3 days then | tablet | | 16 | 6 | | tablet | decrease by 1 tab | | | | | | | every 3 days. | | | | | + + + +---------+ + + | roflumilast | TAKE ONE TABLET BY | 30 | 11 | 09/25/19 | | | (DALIRESP) 500 mcg | MOUTH ONCE DAILY | tablet | | 15 | 6 | | tabletIndications: | | | | | | | COPD (chronic | | | | | | | obstructive | | | | | | | pulmonary disease) | | | | | | | ([facility]) | | | | | | + + + +---------+ + + | rOPINIrole | TAKE ONE TABLET BY | 30 | 0 | 06/03/19 | | | (REQUIP) 1 mg tablet | MOUTH ONCE DAILY AT | tablet | | 16 | 6 | | | BEDTIME | | | | | + + + +---------+ + + | | Take 2 tablets by | | 0 | | | | Sennosides-Docusate | mouth Daily. | | | | 8 | | Sodium (SENNA S PO) | | | | | | + + + +---------+ + + | umeclidinium | Inhale 1 puff into | 1 | 11 | 05/20/19 | | | (INCRUSE ELLIPTA) | the lungs Daily. | Inhaler | | 16 | 6 | | 62.5 mcg/puff | | | | | | | inhaler | | | | | | + + + +---------+ + + documented as of this encounter Plan of Treatment Not on filedocumented as of this encounter Procedures + +--------+ + + + | Procedure Name | Priori | Date/Time | Associated Diagnosis | Comments | | | ty | | | | + +--------+ + + + | DIAGNOSTIC REPORT - | | 06/17/2015 | | | | EXTERNAL SCAN | | 12:00 AM | | | | | | PDT | | | + +--------+ + + + documented in this encounter Visit Diagnoses + + | Diagnosis | + + | Chronic obstructive pulmonary disease, unspecified COPD type (HCC) | + + | Hypoxemia | + + documented in this encounter
--- OUTSIDE RECORDS SUMMARY | ~2019-02-26 | XMS | Encounter Summary ---
Demographics + + + | Address | [address] | | | [place] [address] | + + + | Home Phone | | + + + | Preferred Language | Unknown | + + + | Marital Status | | + + + | Moravian Affiliation | 1061 | + + + | Race | Unknown | + + + | Ethnic Group | Unknown | + + + Author + + + | Author | [facility] | | | and [place] | + + + | Organization | [facility] | | | and [place] | + + + | Address | Unknown | + + + | Phone | Unavailable | + + + Support + + + + + | Name | Relationship | Address | Phone | + + + + + | Palak Aguilar | ECON | [address] | | | | | [address] | | + + + + + Care Team Providers + +------+ + | Care Bar Tacker Sewing Machine Name | Role | Phone | + [...] + + | 09/27/ | Office | [facility] | [place], | COPD (chronic | | 2013 | Visit | PULMONARY [address] | Ling Frazier MD | obstructive | | | | [place], | | pulmonary disease) | | | | [place] [address] | | (Primary Dx); | | | | [phone] | | Nocturnal hypoxemia | | | [...] want to do the lab tests that [facility] recommended, let me know, and I will figure out h ow to do it. 7-542-FJQP-NOW is a free service to help you [...] The quit line is available in both Sami and Tunisian with translation and TTY services. It is open 7 days a week. 24 hours a day except the October, , and . They can t ell you if you qualify for free patches and gum. I might also consider calling [facility] and see if they offer smoking cessation classes . documented in this encounter Progress Notes Ling Lowe MD - 09/27/2013 11:09 AM PDTFormatting of this note might be differe nt from the original. Pulmonary Follow Up HPI Nazario Aguilar . is a 63 y.o. male patient of [...] He is currently on 3 LPM at [facility]. He reports good compliance. Past Medical History [...] of Breath. Dx: 496 RINA: 99 months [facility] Kinza 360 vial 4 aspirin 325 mg tablet [...] that he look in to classes at [facility]. He wanted to know if patches or gum were av ailable for free, and I suggested asking the Quitline, which he had lost the number of, so t his was supplied again. He also inquired about hypnosis, which I do not recommend. I would c onsider acupuncture, as there is at least mixed data for this, if he is interested in CAM [place]. 4. Ataxia - He inquired about the testing that [facility] wanted, so I looked in the [facility] system, got their notes and have requested [...] to inquire about smoking cessation classes at [facility]. 4. We will inquire about cost [...] made to ensure accuracy; however, inadvertent computerized activity director errors may be pre sent. Electronically signed by: Ling Lowe MD 09/27/2013 11:09 documented in t his encounter Plan of Treatment Not on filedocumented [...]
--- OUTSIDE RECORDS SUMMARY | ~2019-02-26 | XMS | Encounter Summary ---
Demographics + + + | Address | [address] | | | [place] [address] | + + + | Home Phone | | + + + | Preferred Language | Unknown | + + + | Marital Status | | + + + | Mormonism Affiliation | 1061 | + + + | Race | Unknown | + + + | Ethnic Group | Unknown | + + + Author + + + | Author | [facility] | | | and Vargasana | + + + | Organization | [facility] | | | and [place] | + + + | Address | Unknown | + + + | Phone | Unavailable | + + + Support + + + + + | Name | Relationship | Address | Phone | + + + + + | Palak Aguilar | ECON | [address] | | | | | [address] | | + + + + + Care Team Providers + +------+ + | Care Registered Safety Engineer Name | Role | Phone | + +------+ + | Jose Angel Reina MD | PCP | | + +------+ + Reason for Visit +--------+ + | Reason | Comments | +--------+ + | Other | follow-up on labs | +--------+ + Encounter Details +--------+ + + + + | Date | Type | Department | Care Team | Description | +--------+ + + + + | 01/30/ | Telephone | [facility] | [facility] | [place]oss[place] (follow-up on | | 2012 | | NEUROSURGERY [address] | N, RN | labs) | | | | [address] | | | | | | [place] | | | | | | [address] | | | | | | [phone] | | | +--------+ + + + [...]
--- OUTSIDE RECORDS SUMMARY | ~2019-02-26 | XMS | Encounter Summary ---
Demographics + + + | Address | [address] | | | [place] [address] | + + + | Home Phone | | + + + | Preferred Language | Unknown | + + + | Marital Status | | + + + | Zoroastrianism Affiliation | 1061 | + + + | Race | Unknown | + + + | Ethnic Group | Unknown | + + + Author + + + | Author | [facility] | | | and [place] | + + + | Organization | [facility] | | | and [place] | + + + | Address | Unknown | + + + | Phone | Unavailable | + + + Support + + + + + | Name | Relationship | Address | Phone | + + + + + | Palak Aguilar | [place] | [address] | | | | | [address] | | + + + + + Care Team Providers + +------+ + | Care Grounds Crew Supervisor Name | Role | Phone | + +------+ + | Jose Angel Reina MD | PCP | | + +------+ + Reason for Referral Diagnostic/Screening (Routine) +--------+--------+ + + + + | Status | Reason | Specialty | Diagnoses / | Referred By | Referred To | | | | | Procedures | Contact | Contact | +--------+--------+ + + + + | Closed | | Radiology | Diagnoses | [facility] | | | | | Right | Karlos Gatica MD | [address] | | | | | shoulder | [address] | [place], | | | | | pain | [address] | [place] | | | | | Rotator cuff | [place], | [address] | | | | | tendonitis, | [place] [address] | Phone: | | | | | right | Phone: | [phone] | | | | | Rotator cuff | [phone] | Fax: | | | | | tear | Fax: | [phone] | | | | | arthropathy | [phone] | | | | | | of right | | | | | | | shoulder | | | | | | | Procedures | | | | | | | MRI Shoulder | | | | | | | Right | | | | | | | Arthrogram w | | | | | | | Contrast | | | +--------+--------+ + + + + Reason for Visit Diagnostic/Screening (Routine) +--------+--------+ + + + + | Status | Reason | Specialty | Diagnoses / | Referred By | Referred To | | | | | Procedures | Contact | Contact | +--------+--------+ + + + + | Closed | | Radiology | Diagnoses | Craig, | [facility] | | | | | Right | Karlos Gatica MD | [address] | | | | | shoulder | [address] | [place], | | | | | pain | [address] | [place] | | | | | Rotator cuff | [place], | [address] | | | | | tendonitis, | [place] [address] | Phone: | | | | | right | Phone: | [phone] | | | | | Rotator cuff | [phone] | Fax: | | | | | tear | Fax: | [phone] | | | | | arthropathy | [phone] | | | | | | of right | | | | | | | shoulder | | | | | | | Procedures | | | | | | | MRI Shoulder | | | | | | | Right | | | | | | | Arthrogram w | | | | | | | Contrast | | | +--------+--------+ + + + + Encounter Details +--------+ + + + + | Date | Type | Department | Care Team | Description | +--------+ + + + + | 04/20/ | [facility] | [facility] | Karlos Craig MD | Right shoulder pain; | | 2015 | Encounter | [facility] MRI [address] | [address] [place] | Rotator cuff | | | | [address] [place], | [address] [place], | tendonitis, right; | | | | [place] [address] | [place] [address] | Rotator cuff tear | | | | [phone] | [phone] | arthropathy of right | | | | | | shoulder | | | | | Karlos Craig MD | | | | | | [address] | | | | | | [place], [place] | | | | | | [address] | | | | | | | [...] (PROAIR | Inhale 2 puffs into | | 0 | | | | HFA) 90 mcg/puff | the lungs every 6 | | | | 5 | | inhaler | hours as needed. | | | | | + + + +---------+ + + | albuterol 2.5 mg/3 | Take 3 mLs by | 360 | 11 | 03/15/20 | | | mL nebulizer | nebulization every 6 | vial | | 14 | 6 | | solutionIndications: | hours as needed for | | | | | | COPD (chronic | Wheezing or | | | | | | obstructive | Shortness of Breath. | | | | | | pulmonary disease) | Dx: [address]INA: 99 | | | | | | ([facility]) | months | | | | | + + + +---------+ + + | aspirin 81 mg EC | Take 81 mg by mouth | | 0 | | | | tablet | Daily. | | | | 6 | + + + +---------+ + + | | Take 1 tablet by | | 0 | | | | aspirin-acetaminophe | mouth every 6 hours | | | | 6 | | n-caffeine (HEADACHE | as needed. | | | | | | RELIEF) 250-250-65 | | | | | | | MG per tablet | | | | | | + + + +---------+ + + | atorvaSTATin | Take 80 mg by mouth | | 0 | | | | (LIPITOR) 80 MG | nightly. | | | | 8 | | tablet | | | | | | + + + +---------+ + + | DALIRESP 500 MCG | TAKE ONE TABLET BY | 30 | 0 | 04/13/19 | | | tablet | MOUTH ONCE DAILY | tablet | | 15 | 5 | + + + +---------+ + + | diazepam (VALIUM) | Take 2 mg by mouth | | 0 | | | | 2 mg tablet | every 6 hours as | | | | 5 | | | needed. | | | | | + + + +---------+ + + | diazepam (VALIUM) | 1 tablet by mouth | 2 | 0 | 03/22/20 | | | 2 mg | one hour prior to | tablet | | 14 | 5 | | tabletIndications: | MRI; May repeat x 1. | | | | | | Claustrophobia | Do not drive after | | | | | | | taking. | | | | | + + + +---------+ + + | fluticasone | Use one spray in | 16 g | 5 | 10/14/19 | | | (FLONASE) 50 | each nostril every | | | 14 | 5 | | mcg/nasal spray | day | | | | | + + + +---------+ + + | | Inhale 1 puff into | 1 each | 11 | 03/15/20 | | | fluticasone-salmeter | the lungs 2 times | | | 14 | 5 | | ol (ADVAIR DISKUS) | daily. Use every 12 | | | | | | 500-50 mcg/puff | hours, twice daily, | | | | | | diskus inhaler | every day. Rinse | | | | | | | mouth after use. | | | | | + + + +---------+ + + | lisinopril | Take 2.5 mg by mouth | | 0 | | | | (PRINIVIL,ZESTRIL) | Daily. | | | | 6 | | 2.5 MG tablet | | | | | | + + + +---------+ + + | rOPINIRole | TAKE ONE TABLET BY | 30 | 10 | 02/29/20 | | | (REQUIP) 1 mg tablet | MOUTH NIGHTLY | tablet | | 14 | 5 | + + + +---------+ + + | | Take 2 tablets by | | 0 | | | | Sennosides-Docusate | mouth Daily. | | | | 8 | | Sodium (SENNA S PO) | | | | | | + + + +---------+ + + | SPIRIVA HANDIHALER | INHALE ONE CAPSULE | 30 | 10 | 03/11/20 | | | 18 MCG inhalation | EVERY DAY | capsule | | 13 | 5 | | capsule | | | | | | + + + +---------+ + + documented as of this encounter Plan of Treatment Not on filedocumented as of this encounter Procedures + +--------+ + + + | Procedure Name | Priori | Date/Time | Associated Diagnosis | Comments | | | ty | | | | + +--------+ + + + | MRI SHOULDER RIGHT | Routin | 04/20/2014 | Right shoulder | Results for this | | ARTHROGRAM W | e | 11:00 AM | pain Rotator cuff | procedure are in the | | CONTRAST | | PST | tendonitis, right | results section. | | | | | Rotator cuff tear | | | | | | arthropathy of right | | | | | | shoulder | | + +--------+ + + + documented in this encounter Results MRI Shoulder Right Arthrogram w Contrast (04/20/2014 11:00 AM PST) + + | Specimen | + + | | + + + + + | Narrative | Performed At | + + + | EXAM: MRI SHOULDER RIGHT ARTHROGRAM W CONTRAST dated 04/20/2014 8:52 | [facility] | | AM HISTORY: Right shoulder MR arthrogram to evaluate for rotator | LAB | | cuff tear. COMPARISON: None. TECHNIQUE: Multiplanar | | | multisequence MR imaging of the right shoulder following | | | intra-articular injection of a dilute gadolinium contrast mixture. | | | Please see the procedural report for details. Imaging is performed | | | on a 3 Ruby MRI scanner. FINDINGS: There is some motion | | | degradation on multiple sequences. Rotator cuff: Low-grade | | | articular sided partial tearing at the anterior humeral insertion of | | | the supraspinatus tendon. This progresses to low to moderate grade | | | in the posterior supraspinatus tendon, again in the critical zone. | | | There is a linear focus of intrasubstance partial tearing at the | | | humeral insertion of the infraspinatus tendon. There is a small | | | amount of edema that tracks along the myotendinous junction of the | | | infraspinatus tendon. The teres minor tendon is normal. The | | | subscapularis tendon is normal. There is mild volume loss in the | | | supraspinatus muscle. Labrum and biceps tendon: There is a | | | sublabral foramen. There is no evidence for labral tearing or | | | detachment. There is degenerative fraying of the superior labrum. | | | The biceps labral anchor is intact. The intra-articular and | | | extra-articular components of the long head of the biceps tendon are | | | intact and unremarkable. Acromioclavicular and glenohumeral | | | joints: Moderate osteoarthritic changes in the acromioclavicular | | | joint. Hypertrophic osteophytes project inferiorly into somewhat | | | changed contour of the supraspinatus myotendinous junction. The | | | acromion is a type II. Mild diffuse articular surface thinning | | | throughout the glenohumeral joint. IMPRESSION - Low grade | | | articular sided partial tearing of the anterior supraspinatus and low | | | to moderate grade of the posterior supraspinatus tendon, both within | | | the critical zone. Low-grade intrasubstance partial tearing at | | | the humeral insertion of the infraspinatus tendon. Feathery edema | | | along the myotendinous junction of the infraspinatus may represent a | | | low-grade strain. Degenerative changes in the acromioclavicular | | | joint. Dictated and Signed by: Yared Diaz MD | | | Electronically signed: 04/20/2014 1:41 PM | | + + + + + | Procedure Note | + + | Bebeto Lozano Results In - 04/20/2014 1:44 PM PST EXAM: MRI SHOULDER RIGHT ARTHROGRAM W | | CONTRAST dated 04/20/2014 8:52 AMHISTORY: Right shoulder MR arthrogram to evaluate for | | rotator cuff tear.COMPARISON: None.TECHNIQUE: Multiplanar multisequence MR imaging of | | the right shoulder followingintra-articular injection of a dilute gadolinium contrast | | mixture. Please seethe procedural report for details. Imaging is performed on a 3 Ruby | | MRIscanner.FINDINGS: There is some motion degradation on multiple sequences.Rotator | | cuff: Low-grade articular sided partial tearing at the anterior humeralinsertion of the | | supraspinatus tendon. This progresses to low to moderate gradein the posterior | | supraspinatus tendon, again in the critical zone. There is alinear focus of | | intrasubstance partial tearing at the humeral insertion of theinfraspinatus tendon. | | There is a small amount of edema that tracks along themyotendinous junction of the | | infraspinatus tendon. The teres minor tendon isnormal. The subscapularis tendon is | | normal. There is mild volume loss in thesupraspinatus muscle.Labrum and biceps tendon: | | There is a sublabral foramen. There is no evidencefor labral tearing or detachment. | | There is degenerative fraying of the superiorlabrum. The biceps labral anchor is | | intact. The intra-articular andextra-articular components of the long head of the | | biceps tendon are intact andunremarkable.Acromioclavicular and glenohumeral joints: | | Moderate osteoarthritic changes inthe acromioclavicular joint. Hypertrophic osteophytes | | project inferiorly intosomewhat changed contour of the supraspinatus myotendinous | | junction. Theacromion is a type II. Mild diffuse articular surface thinning throughout | | theglenohumeral joint.IMPRESSION -Low grade articular sided partial tearing of the | | anterior supraspinatus and lowto moderate grade of the posterior supraspinatus tendon, | | both within thecritical zone.Low-grade intrasubstance partial tearing at the humeral | | insertion of theinfraspinatus tendon.Feathery edema along the myotendinous junction of | | the infraspinatus mayrepresent a low-grade strain.Degenerative changes in the | | acromioclavicular joint.Dictated and Signed by: Yared Diaz MD Electronically | | signed: 04/20/2014 1:41 PM | | | |Acromioclavicular and glenohumeral joints: Moderate osteoarthritic changes in | |the acromioclavicular joint. Hypertrophic osteophytes project inferiorly into | |somewhat changed contour of the supraspinatus myotendinous junction. The | |acromion is a type II. Mild diffuse articular surface thinning throughout the | |glenohumeral joint. | | | |IMPRESSION - | | | |Low grade articular sided partial tearing of the anterior supraspinatus and low | |to moderate grade of the posterior supraspinatus tendon, both within the | |critical zone. | | | |Low-grade intrasubstance partial tearing at the humeral insertion of the | |infraspinatus tendon. | | | |Feathery edema along the myotendinous junction of the infraspinatus may | |represent a low-grade strain. | | | |Degenerative changes in the acromioclavicular joint. | | | |Dictated and Signed by: Yared Diaz MD | | Electronically signed: 04/20/2014 1:41 PM | + + + +---------+ + + | Performing | Address | City/State/Zipcode | Phone Number | | Organization | | | | + +---------+ + + | [facility] | | | [phone] | + +---------+ + + | [facility] | | | [phone] | + +---------+ + + documented in this encounter Visit Diagnoses + + | Diagnosis | + + | Right shoulder pain Pain in joint, shoulder region | + + | Rotator cuff tendonitis, right | + + | 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"
--- OUTSIDE RECORDS SUMMARY | ~2019-02-26 | XMS | Encounter Summary ---
Demographics + + + | Address | [address] | | | [place] [address] | + + + | Home Phone | | + + + | Preferred Language | Unknown | + + + | Marital Status | | + + + | Sikhism Affiliation | 1061 | + + + | Race | Unknown | + + + | Ethnic Group | Unknown | + + + Author + + + | Author | [facility] | | | and Vargasana | + + + | Organization | [facility] | | | and [place] | + + + | Address | Unknown | + + + | Phone | Unavailable | + + + Support + + + + + | Name | Relationship | Address | Phone | + + + + + | Palak Aguilar | ECON | [address] | | | | | [address] | | + + + + + Care Team Providers + +------+ + | Care Funeral Director/Embalmer/Owner Name | Role | Phone | + +------+ + | Jose Angel Reina MD | PCP | | + +------+ + Reason for Visit +--------+ + | Reason | Comments | +--------+ + | COPD | f/u | +--------+ + Encounter Details +--------+---------+ + + + | Date | Type | Department | Care Team | Description | +--------+---------+ + + + | 09/24/ | Office | [facility] | [place], | COPD (chronic | | 2014 | Visit | PULMONARY [address] | Ling Frazier MD | obstructive | | | | [place], | | pulmonary disease) | | | | [place] [address] | | ([facility]LY [facility]) (Primary Dx); | | | | [phone] | | Nocturnal hypoxemia | | | | | | due to emphysema | | | | | | ([facility]LY [facility]); Allergic | | | | | | rhinitis, | | | | | | unspecified allergic | | | | | | rhinitis type; | | | | | | Tobacco [...] + | Tobacco Cessation: Ready to Quit: Yes; Counseling Given: Yes | | Comments: currently smoking 1ppd, he wants to quit, he did get an electronic cigarette | + + + + +---------+ + [...] + + + | Blood Pressure | 114/58 | 09/24/2014 1:38 PM | | | | | PDT | | + + + + + | Pulse | 113 | 09/24/2014 1:38 PM | | | | | PDT | | + + + + + | Temperature | - | - | | + + + + + | Respiratory Rate | 18 | 09/24/2014 1:38 PM | | | | | PDT | | + + + + + | Oxygen Saturation | 95% | 09/24/2014 1:38 PM | room air | | | | PDT | | + + + + + | Inhaled Oxygen | - | - | | | Concentration | | | | + + + + + | Weight | 98.3 kg (216 lb 11.2 | 09/24/2014 1:38 PM | | | | oz) | PDT | | + + + + + | Height | 175.3 cm (5' 9") | 09/24/2014 1:38 PM | | | | | PDT | | + + + + + | Body Mass Index | 32 | 09/24/2014 1:38 PM | | | | | PDT | | + + + + + documented in this encounter Patient Instructions Patient Instructions Ling Lowe MD - 09/24/2014 1:59 PM PDTDo an overnight oxy gen test through [facility]. Call the [facility] before you pick it up to make sure they have a box available. You will bean picker machine operator a box at the [facility]. Do the t est on 3L. Wear the finger probe through the night and then return the box for a download th e next day. If you are going to quit using the e cigarette, then work towards setting a quit date once you are on it, and get rid of everything in the house related to smoking. I am sending in refills for the Daliresp, Spiriva and nasal spray for one year. I agree with having the anesthesiologist there for your colonoscopy. documented in this encounter Progress Notes Ling Lowe MD - 09/24/2014 1:36 PM PDTFormatting of this note might be differe nt from the original. Pulmonary Follow Up HPI Nazario Gipsonregan Fabian. is a 64 y.o. male patient of Jose Angel Reina here today f or follow up of COPD. At their last visit, we had continued him on Spiriva, Advair and Daliresp. Since their last visit he feels like he has been doing okay. He is scheduled for a colonoscopy with Dr. Cyril tomlinson on October 10 at [facility]. He has not had any acute illnesses. He did have difficulties getting his medications refilled, as they were being refilled vargas hly with no refills. He is currently on a regimen of Spiriva, Advair and Daliresp. He does feel like this medic ation regimen is working for them. Currently he is using his rescue inhaler, albuterol, 3 t imes a day. He is using his nebulizer, albuterol, 1 times a day before bedtime. He returns today for routine follow up. Currently he is able to walk couple hundred yards at his own pace on level ground. He walks at [facility] and walks around his yard. He is not exercising regularly. He does tend to lean on the shopping cart when he walks at [facility] and in fact someone commented on this. He does cough chronically, occasionally at night. He rarely brings up phlegm. He has been evaluated for nocturnal oxygen and does use it. He is currently on 3 LPM at [facility]. He reports good compliance. He has had symptoms of nasal congestion, runny nose or post nasal drip. He ran out of the f luticasone nasal spray and needs this refilled. Past Medical History Past Medical History Diagnosis Date COPD (chronic obstructive pulmonary disease) (HCC) Diabetes mellitus (HCC) HTN (hypertension) Seizure disorder (HCC) Restless legs syndrome Seasonal allergies PLMD (periodic limb movement disorder) Asthma Hyperlipidemia Hernia, hiatal Kidney stone Facet arthritis of lumbar region Ataxia Rotator cuff arthropathy Past Surgical History Past Surgical History Procedure Laterality Date Cholecystectomy Hernia repair Tonsillectomy Eye surgery Social History: History Social History Marital Status: Spouse Name: N/A Number of Children: N/A Years of Education: N/A Social History Main Topics Smoking status: Current Every Day Smoker -- 2.00 packs/day for 46 years Types: Cigarettes Smokeless tobacco: Never Used Comment: currently smoking 1ppd, he wants to quit, he did get an electronic cigarette Alcohol Use: No Drug Use: No Sexual Activity: None Other Topics Concern None Social History Narrative No known toxic chemical exposures. No known asbestos exposure. No known TB exposure. Has d ogs and cat in home. Allergies: Allergies Allergen Reactions Levofloxacin Varenicline Tartrate Chantix Medications: Outpatient Encounter Prescriptions as of 09/24/2014 Medication Sig Dispense Refill albuterol (PROAIR HFA) 90 mcg/puff inhaler Inhale 2 puffs into the lungs every 6 hours as needed. albuterol 2.5 mg/3 mL nebulizer solution Take 3 mLs by nebulization every 6 hours as ne eded for Wheezing or Shortness of Breath. Dx: 496 RINA: 99 months 360 vial 11 aspirin 81 mg EC tablet Take 81 mg by mouth Daily. agrokpd-gxvunytbomuyx-atnqutfk (HEADACHE RELIEF) 250-250-65 MG per tablet Take 1 tablet by mouth every 6 hours as needed. atorvaSTATin (LIPITOR) 80 MG tablet Take 80 mg by mouth nightly. carBAMazepine (EPITOL) 200 mg tablet Take 200 mg by mouth 4 times daily. Cyanocobalamin (B-12) 1000 MCG CAPS Take 1,000 mg by mouth Daily. fluticasone (FLONASE) 50 mcg/nasal spray Use one [...] Inhale 3 L into the lungs nightly. roflumilast (DALIRESP) 500 mcg tablet TAKE ONE TABLET BY MOUTH ONCE DAILY 30 tablet 5 rOPINIRole (REQUIP) 1 mg tablet TAKE ONE TABLET BY MOUTH NIGHTLY 30 tablet 10 Sennosides-Docusate Sodium (SENNA S PO) Take 2 tablets by mouth Daily. sildenafil (VIAGRA) 50 MG tablet Take 50 mg by mouth as needed for Erectile Dysfunction . tiotropium (SPIRIVA HANDIHALER) 18 mcg inhalation capsule INHALE ONE CAPSULE ONCE DAILY 30 capsule 5 No facility-administered encounter medications on file as of 09/24/2014. Review of Systems: General: []Weight loss/gain (over 10 lbs) []Fever/chills/sweats []Night sweats EENT: []Hearing loss []Vision loss/change []Sinus congestion/nasal drainage []Nosebleeds [] Hoarseness Cardiac: []Chest pain []Palpitations/heart racing []Swelling of legs/ankles []Waking up at night s hort of breath []Difficulty sleeping flat Gastrointestinal: []Nausea/vomiting [x]Difficulty swallowing []Heartburn/acid reflux []Loss of appetite []Ab dominal pain Urologic: []Blood in urine []Frequent urination at night []Burning/painful urination []Difficulty wit h urination Objective BP 114/58 | Pulse 113 | Resp 18 | Ht 1.753 m (5' 9") | Wt 98.294 kg (216 lb 11.2 oz) | BMI 31.99 kg/m2 | SpO2 95% RA General Appearance: Alert, cooperative, no distress, appears older than stated age, ataxic with dysarthric speech Head: Normocephalic, without obvious abnormality, atraumatic Eyes: PERRL, conjunctiva clear, no scleral icterus, EOM's intact Ears: Normal TM's, external auditory canals, normal acuity Nose: Nares normal, septum midline, mucosa edematous Mouth: No oral lesions or exudate Neck: Supple, symmetrical, no adenopathy Lungs: No accessory muscle use, breath sounds are markedly diminished bilaterally with pr olongation of the expiratory phase, no wheezes, crackles or rhonchi Chest Wall: No deformity Heart: Regular rate and rhythm, no murmur, rub or gallop Abdomen: Soft, non-tender, non-distended, mildly obese Extremities: No cyanosis, clubbing, or edema Pulses: Radial pulses 2+ and symmetric Skin: Warm and dry Lymph nodes: Cervical and supraclavicular nodes normal Data: No new data. Karlos Craig's notes reviewed in clinic today. Immunization History Administered Date(s) Administered INFLUENZA, >= 4YO W/PRESERVATIVE IM 01/18/2011 INFLUENZA, QUADRIVALENT PRESERVATIVE FREE (PED/ADOL/ADULT) 12/28/2013 INFLUENZA, TRIVALENT PRESERVATIVE FREE (PED/ADOL/ADULT) 01/19/2012, 03/16/2013 PNEUMOCOCCAL CONJUGATE 13-VALENT (PCV13) 06/14/2014 PNEUMOCOCCAL POLYSACCHARIDE 23-VALENT (PPSV23) 01/18/2010 TDAP, (ADOL/ADULT) 01/19/2012 Assessment ICD-9-CM 1. COPD (chronic obstructive pulmonary disease) (HCC) 496 Doing better despite severe disea se. He is no longer having frequent exacerbations. He has also lost about 20 pounds, likely on the Daliresp. We will continue current medications, 1 year refills sent on most prescriptions. roflumilast (DALIRESP) 500 mcg tablet tiotropium (SPIRIVA HANDIHALER) 18 mcg inhalation capsule 2. Nocturnal hypoxemia due to emphysema (HCC) 492.8 On oxygen at 3L. Due for recheck so ord ered today. Overnight oximetry, oxygen 3L 327.26 3. Allergic rhinitis, unspecified allergic rhinitis type 477.9 Off of fluticasone spray wit h some increase in symptoms. I reordered this. 4. Tobacco abuse 305.1 Ongoing. We discussed using e cigarette, which he know I do not any mmend. If he chooses this method, he needs to set a firm quit date. Plan 1.Continue Advair, Spiriva and Daliresp. 2.Yes, he should have anesthesiology for his colonoscopy. 3.Defer colonoscopy if acutely ill at that time. 4. Recheck overnight oximetry on 3L. 5. Resume fluticasone nasal spray. 6. Smoking cessation advised. I recommended a firm quit date with removal of all smoking re lated items and having his smoke outside. He was advised to call if new pulmonary symptoms were to develop. Return to clinic in 4 months, or sooner with concerns. CC: Jose Angel Reina Portions of this report were transcribed using voice recognition software. Every effort wa s made to ensure accuracy; however, inadvertent computerized gameplay engineer errors may be pre sent. documented in t his encounter Plan of Treatment + + +--------+ + + | Name | Type | Priori | Associated Diagnoses | Order Schedule | | | | ty | | | + + +--------+ + + | Overnight oximetry, | Respiratory | Routin | Nocturnal | Expected: | | oxygen | Care | e | hypoxemia due to | 09/24/2014, Expires: | | | | | emphysema (HCC) | 09/24/2015 | + + +--------+ + + documented as of this encounter Visit Diagnoses + + | Diagnosis | + + | COPD (chronic obstructive pulmonary disease) ([facility]) - Primary Chronic airway | | obstruction, not elsewhere classified | + + | Nocturnal hypoxemia due to emphysema ([facility]) Other emphysema | + + | Allergic rhinitis, unspecified allergic rhinitis type | + + | Tobacco abuse Tobacco use disorder | + + documented in this encounter
--- OUTSIDE RECORDS SUMMARY | ~2019-02-26 | XMS | Encounter Summary ---
Demographics + + + | Address | [address] | | | [place] [address] | + + + | Home Phone | | + + + | Preferred Language | Unknown | + + + | Marital Status | | + + + | Nondenominational Affiliation | 1061 | + + + | Race | Unknown | + + + | Ethnic Group | Unknown | + + + Author + + + | Author | [facility] | | | and V[place]asana | + + + | Organization | [facility] | | | and [place] | + + + | Address | Unknown | + + + | Phone | Unavailable | + + + Support + + + + + | Name | Relationship | Address | Phone | + + + + + | Palak Aguilar | ECON | [address] | | | | | [address] | | + + + + + Care Team Providers + +------+ + | Care Dye Tank Tender Name | Role | Phone | + [...] + + | 06/14/ | Office | [facility] [place] | [place], | Need for vaccination | | 2014 | Visit | PULMONARY [address] | Ling Frazier MD | with 13-polyvalent | | | | [place], | | pneumococcal | | | | [place] [address] | | conjugate vaccine | | | | [phone] | | (Primary Dx); COPD | | | | | | (chronic obstructive | | | | | | pulmonary disease); | | | | | | Nocturnal hypoxemia | | | | | | due to emphysema | | | | | | (HCC); Periodic limb | | | | | [...] Ling Lowe MD - 06/14/2014 1:24 PM [id number] is a free service to help you [...] is available in both En glish and Kazakh with translation and TTY services. It is open 7 days a week. 24 hours a except the October, , and . They [...] to smoke . You might try calling [facility] and see if they offer classes on quitting smoking. [facility] offers free smoking cessation classes. We want [...] Up HPI Nazario Gipsonregan Fabian. is a 63 y.o. male patient of [...] or a bout 1 lap around the [place]. He is doing physical therapy, but he [...] He is currently on 3 LPM at [facility]. He reports good compliance. He is using [...] tablet Take 81 mg by mouth Daily. aqdldts-vfaagekbtxavy-ytywehym (HEADACHE RELIEF) 250-250-65 MG per tablet Take [...] made to ensure accuracy; however, inadvertent computerized ratchet setter errors may be pre sent. documented in [...]
--- OUTSIDE RECORDS SUMMARY | ~2019-02-26 | XMS | Encounter Summary ---
Demographics + + + | Address | [address] | | | [place] [address] | + + + | Home Phone | | + + + | Preferred Language | Unknown | + + + | Marital Status | | + + + | Oriental Orthodox Affiliation | 1061 | + + + | Race | Unknown | + + + | Ethnic Group | Unknown | + + + Author + + + | Author | [facility] | | | and [place] | + + + | Organization | [facility] [...] [address] | | | | | [address] | | + + + + + Care Team Providers + +------+ + | Care Lean Facilitator Name | Role | Phone | + +------+ + | Jose Angel Reina MD | PCP | | + +------+ + Encounter Details +--------+ + + + + | Date | Type | Department | Care Team | Description | +--------+ + + + + | 06/14/ | Imaging | [facility] | Provider, | | | 2018 | Exam | [facility] | [address] | | | | | IMAGING | [place] Greenwood[place]ora | | | | | [phone] | [place] [address] | | +--------+ + + + + [...] for comparison only - no result from Jeff. | [facility] | + + + + +---------+ + + | Performing | Address | City/State/Zipcode | Phone Number | | Organization | | | | + +---------+ + + | [facility] | | | | + +---------+ + + documented in this encounter Visit Diagnoses Not on filedocumented in this encounter"
--- OUTSIDE RECORDS SUMMARY | ~2019-02-26 | XMS | Encounter Summary ---
Demographics + + + | Address | [address] | | | [place] [address] | + + + | Home Phone | | + + + | Preferred Language | Unknown | + + + | Marital Status | | + + + | Adventism Affiliation | 1061 | + + + | Race | Unknown | + + + | Ethnic Group | Unknown | + + + Author + + + | Author | [facility] | | | and V[facility]asana | + + + | Organization | [facility] | | | and [place] | + + + | Address | Unknown | + + + | Phone | Unavailable | + + + Support + + + + + | Name | Relationship | Address | Phone | + + + + + | Palak Aguilar | ECON | [address] | | | | | [address] | | + + + + + Care Team Providers + +------+ + | Care Mdm Developer Name | Role | Phone | [...] Description | +--------+--------+ + + + | 08/09/ | Refill | [facility] [place] | [place], | Medication Refill | | 2014 | | PULMONARY [address] | Ling Frazier MD | | | | | [place], | | | | | | [place] [address] | | | | | | [phone] | | | +--------+--------+ + + + [...]
--- OUTSIDE RECORDS SUMMARY | ~2019-02-26 | XMS | Encounter Summary ---
Demographics + + + | Address | [address] | | | [place] [address] | + + + | Home Phone | | + + + | Preferred Language | Unknown | + + + | Marital Status | | + + + | Confucianism Affiliation | 1061 | + + + | Race | Unknown | + + + | Ethnic Group | Unknown | + + + Author + + + | Author | [facility] | | | and [place] | + + + | Organization | [facility] | | | and [place] | + + + | Address | Unknown | + + + | Phone | Unavailable | + + + Support + + + + + | Name | Relationship | Address | Phone | + + + + + | Palak Aguilar | ECON | [address] | | | | | [address] | | + + + + + Care Team Providers + +------+ + | Care Word Processor Operator Name | Role | Phone | [...] Lisa GreenwoodLeonora | | | | | [phone] | [place] [address] | | +--------+ + + + + [...]
--- OUTSIDE RECORDS SUMMARY | ~2019-02-26 | XMS | Encounter Summary ---
Demographics + + + | Address | [address] | | | [place] [address] | + + + | Home Phone | | + + + | Preferred Language | Unknown | + + + | Marital Status | | + + + | Samaritan Affiliation | 1061 | + + + | Race | Unknown | + + + | Ethnic Group | Unknown | + + + Author + + + | Author | [facility] | | | and Vargasana | + + + | Organization | [facility] | | | and Vargasana | + + + | Address | Unknown | + + + | Phone | Unavailable | + + + Support + + + + + | Name | Relationship | Address | Phone | + + + + + | Palak Aguilar | ECON | [address] | | | | | [address] | | + + + + + Care Team Providers + +------+ + | Care Ham Stringer Name | Role | Phone | + +------+ + | Jose Angel Reina MD | PCP | | + +------+ + Reason for Visit +--------+ + | Reason | Comments | +--------+ + | COPD | 2 month follow up | +--------+ + Encounter Details +--------+---------+ + + + | Date | Type | Department | Care Team | Description | +--------+---------+ + + + | 05/20/ | Office | [facility] | [place], | COPD with acute | | 2015 | Visit | PULMONARY [address] | Ling Frazier MD | exacerbation (HCC) | | | | [place], | | (Primary Dx); | | | | [place] [address] | | Nocturnal hypoxemia | | | | [phone] | | due to emphysema | | | | | | (HCC); Tobacco abuse | +--------+---------+ + + + [...] to Quit: No; Counseling Given: No | | Comments: currently smoking 1ppd, he [...] + + + | Blood Pressure | 104/66 | 05/20/2015 1:54 PM | | | | | PST | | + + + + + | Pulse | 104 | 05/20/2015 1:54 PM | | | | | PST | | + + + + + | Temperature | - | - | | + + + + + | Respiratory Rate | - | - | | + + + + + | Oxygen Saturation | 94% | 05/20/2015 1:54 PM | | | | | PST | | + + + + + | Inhaled Oxygen | - | - | | | Concentration | | | | + + + + + | Weight | 98.9 kg (218 lb) | 05/20/2015 1:54 PM | | | | | PST | | + + + + + | Height | 175.3 cm (5' 9") | 05/20/2015 1:54 PM | | | | | PST | | + + + + + | Body Mass Index | 32.19 | 05/20/2015 1:54 PM | | | | | PST | | + + + + + documented in this encounter Patient Instructions Patient Instructions Ling Lowe MD - 05/20/2015 2:28 PM PSTI would not ride a cart at [facility]. Instead, when you go shopping, start off doing a little walking before you start shopping. Take prednisone 10mg tablets as follows: Start 4 tablets by mouth for 3 days, then 3 tablet s by mouth for three days, then 2 tablets by mouth for 3 days, then 1 tablet by mouth for 3 days, then stop. Finish the course of amoxicillin you got in urgent care. Use the albuterol nebulizer 4 times daily scheduled for the next 2 weeks, then go ahead and start tapering off to just as needed. You can use your ProAir inhaler as needed an addition al 2 times daily if need be. We will stop the Spiriva and switch to the Incruse, which is 1 inhalation daily. documented in this encounter Progress Notes Ling Lowe MD - 05/20/2015 2:01 PM PSTFormatting of this note might be differe nt from the original. Pulmonary Follow Up HPI Nazario Gipsonock . is a 64 y.o. male patient [facility]. At their last visit, we had continued him on Advair, Spiriva and Daliresp. Since their last visit he feels like he has been doing not so great. He was told he had bronchitis recently by the [facility] [facility] [facility] down in [place]. He was given a 5 day course of 10 mg prednisone tablets, 50mg d aily, and is still on amoxicillin 875 mg, which he is taking twice daily for 14 days. He not es he maybe got a tiny bit better at first, but is not any better now. He was also told he h ad a right ear infection. He is currently coughing up a lot of mucous. His mucous is clear currently, and he did not notice it become colored. He finds drinking water helps the cough some. He feels like he is more short of breath than he was. He is currently on a regimen of Spiriva one capsule daily, ropinirole 500 mcg once daily an d Advair 500 mcg 1 inhalation twice daily. He ran out of his Spiriva, and is due to change o n his insurance, so Dr. Reina gave him a sample of Incruse, but he has not tried this ye t. Currently he is using his rescue inhaler, albuterol, 1 times a day. He is using his nebu lizer, albuterol, 3 times a day. He returns today for routine follow up. Currently he is able to walk across [facility] at his own pace on level ground, as long as he pushes the walker or grocery cart, and he does stop to look at things. He is not exercising regularly. He has been evaluated for nocturnal oxygen and does use it. He is currently on 3 LPM at [facility]. He reports good compliance. He has not needed oxygen during the daytime. He does not have symptoms of heartburn or reflux. He has had symptoms of nasal congestion, runny nose or post nasal drip. This seems to be worse then usual. He did try Chantix, and had a syncopal event on this. He has also tried a nicotine inhaler, which helped some, but he could not get it covered by insurance again. Past Medical History Past Medical History Diagnosis Date COPD (chronic obstructive pulmonary disease) ([facility]) Diabetes mellitus (HCC) HTN (hypertension) Seizure disorder ([facility]) Restless legs syndrome Seasonal allergies PLMD (periodic limb movement disorder) Asthma Hyperlipidemia Hernia, hiatal Kidney stone Facet arthritis of lumbar region Ataxia Rotator cuff arthropathy Colon polyps 2014 due for repeat early 2016 Erectile dysfunction Past Surgical History Past Surgical [...] Chantix Medications: Outpatient Encounter Prescriptions as of 05/20/2015 Medication Sig Dispense Refill acetaminophen (TYLENOL) 650 [...] 496 RINA: 99 months 360 vial 11 amoxicillin-clavulanate (AUGMENTIN) 875-125 mg per tablet ascorbic acid (VITAMIN C) 500 mg tablet Take 500 mg by mouth Daily. aspirin 325 mg tablet Take 325 mg by mouth Daily. [DISCONTINUED] aspirin 81 mg EC tablet Take 81 mg by mouth Daily. [DISCONTINUED] lrslkad-ykbuuhvfgoppf-esptomca (HEADACHE RELIEF) 250-250-65 MG per table t Take 1 tablet by mouth every 6 [...] mg tablet TAKE ONE TABLET BY MOUTH AT BEDTIME 30 tablet 5 Sennosides-Docusate Sodium (SENNA S PO) Take 2 tablets by mouth Daily. [DISCONTINUED] sildenafil (VIAGRA) 50 MG tablet Take 50 mg by mouth as needed for Erect ile Dysfunction. [DISCONTINUED] tiotropium (SPIRIVA HANDIHALER) 18 mcg inhalation capsule INHALE ONE CAP VALERIY ONCE DAILY 30 capsule 11 umeclidinium (INCRUSE ELLIPTA) 62.5 mcg/puff inhaler Inhale 1 puff into the lungs Daily . zinc 50 MG TABS Take 50 mg by mouth Daily. No facility-administered encounter medications on file as of 05/20/2015. Review of Systems: General: []Weight loss/gain (over 10 lbs) []Fever/chills/sweats []Night sweats EENT: []Hearing loss []Vision loss/change []Sinus congestion/nasal drainage []Nosebleeds [] Hoarseness Cardiac: []Chest pain []Palpitations/heart racing []Swelling of legs/ankles []Waking up at night s hort of breath []Difficulty sleeping flat Gastrointestinal: [x]Nausea/vomiting -"sometimes I want to vomit but can't" []Difficulty swallowing []Heartb urn/acid reflux []Loss of appetite []Abdominal pain Urologic: []Blood in urine []Frequent urination at night []Burning/painful urination []Difficulty wit h urination Objective BP 104/66 mmHg | Pulse 104 | Ht 1.753 m (5' 9") | Wt 98.884 kg (218 lb) | BMI 32.18 kg/m2 | SpO2 94% General Appearance: Alert, cooperative, no distress, appears stated age Head: Normocephalic, without obvious abnormality, atraumatic Eyes: PERRL, conjunctiva clear, no scleral icterus, EOM's intact Ears: Both TMs are mildly erythematous, but no purulence seen Nose: Nares normal, septum midline, mucosa normal Mouth: No oral lesions or exudate Neck: Supple, symmetrical, no adenopathy Lungs: No accessory muscle use, breath sounds are diminished bilaterally and sound tight with occasional wheezes, and rhonchi Chest Wall: No deformity Heart: Regular [...] TDAP, (ADOL/ADULT) 01/19/2012 Assessment ICD-10-CM ICD-9-CM 1. COPD with acute exacerbation (HCC) J44.1 491.21 Given albuterol in clinic today. I will also given an additional course of a prolonged steroid taper to see if he improves. I also a sked that he use his nebulizer scheduled 4 times daily for 2 weeks. I changed his Spiriva to Incruse, and we did teaching in how to properly use this. albuterol 2.5 mg/3 mL nebulizer solution 2.5 mg 2. 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 He had repeat testing done mid last year. G47.36 327.26 3. Tobacco abuse Z72.0 305.1 Ongoing. He has tried several methods for quitting without suc cess. Today he asked about the relationship between smoking and erectile dysfunction, and I confirmed that yes, it is a factor in this. Plan 1.Continue on Advair 500 mcg dose 1 inhalation twice daily. 2.Chenge Spiriva to Incruse 1 inhalation daily. 3.Continue on oxygen at 3L at night. 4. Prednisone 10mg tablets, starting at 40mg and tapering every 3 days by 10mg until comple te. 5. Smoking cessation discussed and advised. He has additional incentive to go through with this. He was advised to call if new pulmonary symptoms were to develop. Return to clinic in 4 weeks, or sooner with concerns. CC: Jose Angel Reina MD Portions of this report were transcribed using voice recognition software. Every effort wa s made to ensure accuracy; however, inadvertent computerized insurance defense attorney errors may be pre sent. 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 No medication charge | | | | | | | or administration charge., | | | | | | + +--------+ +--------+------+ + +---+---+ | | | +---+---+ documented in this encounter
--- OUTSIDE RECORDS SUMMARY | ~2019-02-26 | XMS | Encounter Summary ---
Demographics + + + | Address | [address] | | | [place] [address] | + + + | Home Phone | | + + + | Preferred Language | Unknown | + + + | Marital Status | | + + + | Mandaeism Affiliation | 1061 | + + + | Race | Unknown | + + + | Ethnic Group | Unknown | + + + Author + + + | Author | [facility] | | | and Vargasana | + + + | Organization | [facility] | | | and [place]as[place] | + + + | Address | Unknown | + + + | Phone | Unavailable | + + + Support + + + + + | Name | Relationship | Address | Phone | + + + + + | Palak Aguilar | ECON | [id number] | | | | | [address] | | + + + + + Care Team Providers + +------+ + | Care Jacket Preparer Name | Role | Phone | + +------+ + PCP | Unavailable | + +------+ + Encounter Details +--------+ + + + + | Date | Type | Department | Care Team | Description | +--------+ + + + + | 04/20/ | [facility] | [facility] | Chrissy, | | | 2011 | Encounter | MED CTR GENERIC OP | Ling Frazier MD | | | | | CONV DEPT [address] | | | | | | [place], | | | | | | [place] [address] | | | | | | [phone] | | | +--------+ + + + [...]
--- OUTSIDE RECORDS SUMMARY | ~2019-02-26 | XMS | Encounter Summary ---
Demographics + + + | Address | [address] | | | [place] [address] | + + + | Home Phone | | + + + | Preferred Language | Unknown | + + + | Marital Status | | + + + | Baptist Affiliation | 1061 | + + + | Race | Unknown | + + + | Ethnic Group | Unknown | + + + Author + + + | Author | [facility] | | | and Vargasana | + + + | Organization | [facility] | | | and Vargasana | + + + | Address | Unknown | + + + | Phone | Unavailable | + + + Support + + + + + | Name | Relationship | Address | Phone | + + + + + | Palak Aguilar | ECON | [address] | | | | | [address] | | + + + + + Care Team Providers + +------+ + | Care Ultrasound Spec Name | Role | Phone | + +------+ + | Jose Angel Reina MD | PCP | | + +------+ + Reason for Visit +--------+ + | Reason | Comments | +--------+ + | COPD | | +--------+ + Encounter Details +--------+---------+ + + + | Date | Type | Department | Care Team | Description | +--------+---------+ + + + | 01/21/ | Office | [facility] | [place], | COPD (chronic | | 2014 | Visit | PULMONARY [address] | Ling Frazier MD | obstructive | | | | [place], | | pulmonary disease); | | | | [place] [address] | | Nocturnal hypoxemia | | | | [phone] | | due to emphysema | | | | | | ([facility]); Tobacco | | | | | | abuse; Need for | | | | | | influenza | | | | | | vaccination | +--------+---------+ + + + Social History [...] + + + | Blood Pressure | 124/82 | 01/21/2015 1:21 PM | | | | | PDT | | + + + + + | Pulse | 96 | 01/21/2015 1:21 PM | | | | | PDT | | + + + + + | Temperature | - | - | | + + + + + | Respiratory Rate | 18 | 01/21/2015 1:21 PM | | | | | PDT | | + + + + + | Oxygen Saturation | 94% | 01/21/2015 1:21 PM | | | | | PDT | | + + + + + | Inhaled Oxygen | - | - | | | Concentration | | | | + + + + + | Weight | 97.1 kg (214 lb) | 01/21/2015 1:21 PM | | | | | PDT | | + + + + + | Height | 175.3 cm (5' 9") | 01/21/2015 1:21 PM | | | | | PDT | | + + + + + | Body Mass Index | 31.6 | 01/21/2015 1:21 PM | | | | | PDT | | + + + + + documented in this encounter Patient Instructions Patient Instructions Ling Lowe MD - 01/21/2015 2:04 PM PDTI would look at cut ting back on your smoking. If you both cut back to 1/2 pack a day, save $4 a day in a jar someplace visible. Put what you are saving it for on the jar, and when you think about smoking, think about what you are saving for instead. No medication changes today. We will give you your flu shot today. Stay on the oxygen at night at 3L. Electronically signed by Ling Lowe MD at 2:11 PM PDT documented in this encounter Progress Notes Ling Lowe MD - 01/21/2015 1:23 PM PDTFormatting of this note might be differe nt from the original. Pulmonary Follow Up HPI Nazario Aguilar Sr. is a 64 y.o. male patient [facility]. At their last visit, we had kept him on Spiriva, Advair and Daliresp. Since their last visi t he feels like he has been doing okay. He had some type of virus about a month ago and was seen at [facility], but it sounds like this was limited to GI symptoms. He was dizzy at t he time. He did get his colonoscopy done, and they found polyps on this. He apparently has to have a nother scope in a year and a half. He is currently on a regimen of Spiriva, Advair 500 mcg dose and Daliresp. He does feel li ke this medication regimen is working for them. Currently he is using his rescue inhaler, al buterol (ProAir), 1 times a day. He is using his nebulizer, albuterol, 3 times a day. He re turns today for routine follow up. Currently he is able to walk a couple hundred feet at his own pace on level ground. He uses a walker with walking. He is not exercising regularly. He does cough chronically, and his notes he coughs more at night when he lies down. He does produce mucous. The mucous is clear in color. He has not had hemoptysis. He has been evaluated for nocturnal oxygen and does use it. He is currently on 3 LPM at [facility]. He reports good compliance. He does not have symptoms of heartburn or reflux. He has not had significant symptoms of na belén congestion, runny nose or post nasal drip. He is still smoking 1ppd. His is still smoking as well. He has no plans to quit, thoug h he still would like to quit. Past Medical History Past Medical History Diagnosis [...] Chantix Medications: Outpatient Encounter Prescriptions as of 01/21/2015 Medication Sig Dispense Refill albuterol (PROAIR HFA) 90 mcg/puff inhaler Inhale 2 puffs into the lungs every 6 hours as needed. albuterol 2.5 mg/3 mL nebulizer solution Take 3 mLs by nebulization every 6 hours as ne eded for Wheezing or Shortness of Breath. Dx: 496 RIAN: 99 months 360 vial 11 aspirin 81 mg EC tablet Take 81 mg by mouth Daily. rkpqsgs-izgntgpxqbfyl-faiwwaej (HEADACHE RELIEF) 250-250-65 MG per tablet Take [...] by Nasal route Daily. 16 g 11 fluticasone-salmeterol (ADVAIR DISKUS) 500-50 mcg/puff diskus inhaler [...] INHALE ONE CAPSULE ONCE DAILY 30 capsule 11 No facility-administered encounter medications on file as of 01/21/2015. Review of Systems: General: []Weight loss/gain (over 10 lbs) []Fever/chills/sweats []Night sweats EENT: []Hearing loss []Vision loss/change []Sinus congestion/nasal drainage []Nosebleeds [] Hoarseness Cardiac: []Chest pain []Palpitations/heart racing []Swelling of legs/ankles []Waking up at night s hort of breath []Difficulty sleeping flat Gastrointestinal: []Nausea/vomiting []Difficulty swallowing []Heartburn/acid reflux []Loss of appetite []Abd ominal pain Urologic: []Blood in urine []Frequent urination at night []Burning/painful urination []Difficulty wit h urination Objective BP 124/82 mmHg | Pulse 96 | Resp 18 | Ht 1.753 m (5' 9") | Wt 97.07 kg (214 lb) | BMI 31.59 kg/m2 | SpO2 94% RA General Appearance: Alert, cooperative, no distress, [...] nodes: Cervical and supraclavicular nodes normal Data: Overnight oximetry was done on September 26, 2014 on 3L and was reviewed and interpreted in clin ic today. It shows he spent 11 minutes with a saturation less than 88%. Immunization History Administered Date(s) Administered INFLUENZA, >= 4YO W/PRESERVATIVE IM 01/18/2011 INFLUENZA, QUADRIVALENT PRESERVATIVE FREE (PED/ADOL/ADULT) 12/28/2013 INFLUENZA, TRIVALENT PRESERVATIVE FREE (PED/ADOL/ADULT) 01/19/2012, 03/16/2013 PNEUMOCOCCAL CONJUGATE 13-VALENT (PCV13) 06/14/2014 PNEUMOCOCCAL POLYSACCHARIDE 23-VALENT (PPSV23) 01/18/2010 TDAP, (ADOL/ADULT) 01/19/2012 Assessment ICD-10-CM ICD-9-CM 1. COPD (chronic obstructive pulmonary disease) J44.9 [address] Overall he is currently fairly st able. We will continue his current medication regimen. 2. 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 Repeat testing s howed that this was adequate. G47.36 327.26 3. Tobacco abuse Z72.0 305.1 Ongoing. We have discussed quitting again. 4. Need for influenza vaccination Z23 V04.81 Quadrivalent Flu vac greater than or equal to 3YO preservative free IM Plan 1.Continue Advair 500 mcg dose, Spiriva and Daliresp. 2.Continue nocturnal oxygen at 3L. 3.We discussed smoking cessation again. I discussed the cost of his smoking, noting that be tween himself and his , they spend $8 a day on cigarettes. 4. Flu vaccine given today. He was advised to call if new pulmonary symptoms were to develop. Return to clinic in 4 months, or sooner with concerns. CC: Jose Angel Reina MD Portions of this report were transcribed using voice recognition software. Every effort wa s made to ensure accuracy; however, inadvertent computerized iron erector errors may be pre sent. documented in [...] Tobacco use disorder | + + | Need for influenza vaccination Need for prophylactic vaccination and inoculation | | against influenza | + + documented in this encounter
--- OUTSIDE RECORDS SUMMARY | ~2019-02-26 | XMS | Encounter Summary ---
Demographics + + + | Address | [address] | | | [place] [address] | + + + | Home Phone [...] Author | [facility] | | | and Vargasana | + + + | Organization | [facility] | | | and Vargasana | + + + | Address | Unknown | + + + | Phone | Unavailable | + + + Support + + + + + | Name | Relationship | Address | Phone | + + + + + | Palak Aguilar | ECON | [address] | | | | | [address] | | + + + + + Care Team Providers + +------+ + | Care Blanket Weaver Name | Role | Phone | [...] Lisa GreenwoodLeonora | | | | | [phone] | [place] [address] | | +--------+ + + + + [...] XR CHEST 1 VIEW | Routin | 03/18/2017 | | Results for this | | | e | 10:30 PM | | procedure are in the | | | | PST | | results section. | + +--------+ + + + documented in this encounter Results XR Chest 1 Vw (03/18/2017 10:30 PM PST) + + | Specimen | + [...]
--- OUTSIDE RECORDS SUMMARY | ~2019-02-26 | XMS | Encounter Summary ---
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 As needed | | 0 | 12/18/19 | | | (TYLENOL EXTRA | | | | 12 | 4 | | STRENGTH PO) | | | | | | + + + +---------+ + + | albuterol | Inhale 2 puffs into | | 0 | | | | (VENTOLIN HFA) 90 | the lungs every 6 | | | | 4 | | mcg/puff inhaler | hours as needed. | | | | | + + + +---------+ + + | | Use in nebulizer | | 0 | 12/18/19 | | | albuterol-ipratropiu | every 4 hours as | | | 12 | 3 | | m (DUONEB) 2.5-0.5 | needed for shortness | | | | | | mg/3 mL SOLN | of breath | | | | | + + + +---------+ + + | aspirin 325 mg | Take 325 mg by mouth | | 0 | | | | tablet | Daily. | | | | 4 | + + + +---------+ + + | atorvaSTATin | Take 80 mg by mouth | | 0 | | | | (LIPITOR) 40 mg | nightly. | | | | 4 | | tablet | | | | | | + + + +---------+ + + | DALIRESP 500 MCG | TAKE ONE TABLET BY | 30 | 5 | 08/16/19 | | | tablet | MOUTH EVERY DAY | tablet | | 13 | 4 | + + + +---------+ + + | diazepam (VALIUM) | Take 1 tablet by | 2 | 0 | 01/20/20 | | | 2 mg | mouth 45 minutes | tablet | | 13 | 4 | | tabletIndications: | prior to MRI. May | | | | | | Claustrophobia | repeat x 1 if | | | | | | | claustrophobia | | | | | | | persists. | | | | | + + + +---------+ + + | fluticasone | 2 sprays in each | | 0 | 12/18/19 | | | (FLONASE) 50 | nostril daily | | | 12 | 4 | | mcg/nasal spray | | | | | | + + + +---------+ + + | | 1 puff inhaled twice | | 0 | 07/20/19 | | | fluticasone-salmeter | daily | | | 12 | 4 | | ol (ADVAIR DISKUS) | | | | | | | 500-50 mcg/puff | | | | | | | diskus inhaler | | | | | | + + + +---------+ + + | lisinopril | Take 25 mg by mouth | | 0 | | | | (PRINIVIL, ZESTRIL) | Daily. | | | | 4 | | 10 mg tablet | | | | | | + + + +---------+ + + | rOPINIRole | Take 1 tablet by | 30 | 11 | 05/24/19 | | | (REQUIP) 1 mg | mouth nightly. | tablet | | 13 | 4 | | tabletIndications: | | | | | | | Restless legs | | | | | | | syndrome | | | | | | + + + +---------+ + + | tiotropium | Inhale 18 mcg into | | 0 | | | | (SPIRIVA) 18 mcg | the lungs Daily. | | | | 3 | | inhalation | | | | | | | capsuleIndications: | | | | | | | COPD exacerbation | | | | | | | (HCC) | | | | | | + + + +---------+ + + documented as of this encounter Plan of Treatment Not on filedocumented as of this encounter Procedures + +--------+ + + + | Procedure Name | Priori | Date/Time | Associated Diagnosis | Comments | | | ty | | | | + +--------+ + + + | CERULOPLASMIN | Routin | 01/19/2013 | | Results for this | | | e | 3:42 PM | | procedure are in the | | | | PDT | | results section. | + +--------+ + + + | CBC WITH | Routin | 01/19/2013 | | Results for this | | DIFFERENTIAL | e | 3:42 PM | | procedure are in the | | | | PDT | | results section. | + +--------+ + + + | VITAMIN E | Routin | 01/19/2013 | | Results for this | | | e | 3:42 PM | | procedure are in the | | | | PDT | | results section. | + +--------+ + + + | TSH | Routin | 01/19/2013 | | Results for this | | | e | 3:42 PM | | procedure are in the | | | | PDT | | results section. | + +--------+ + + + | MAGNESIUM | Routin | 01/19/2013 | | Results for this | | | e | 3:42 PM | | procedure are in the | | | | PDT | | results section. | + +--------+ + + + | COMPREHENSIVE | Routin | 01/19/2013 | | Results for this | | METABOLIC PANEL | e | 3:42 PM | | procedure are in the | | | | PDT | | results section. | + +--------+ + + + | CERULOPLASMIN | Routin | 01/19/2013 | Cerebellar ataxia | Results for this | | | e | 3:38 PM | (HCC) | procedure are in the | | | | PDT | | results section. | + +--------+ + + + | CBC WITH | Routin | 01/19/2013 | Cerebellar ataxia | Results for this | | DIFFERENTIAL | e | 3:38 PM | (HCC) | procedure are in the | | | | PDT | | results section. | + +--------+ + + + | VITAMIN E | Routin | 01/19/2013 | Cerebellar ataxia | Results for this | | | e | 3:38 PM | (HCC) | procedure are in the | | | | PDT | | results section. | + +--------+ + + + | TSH | Routin | 01/19/2013 | Cerebellar ataxia | Results for this | | | e | 3:38 PM | (HCC) | procedure are in the | | | | PDT | | results section. | + +--------+ + + + | MAGNESIUM | Routin | 01/19/2013 | Cerebellar ataxia | Results for this | | | e | 3:38 PM | (HCC) | procedure are in the | | | | PDT | | results section. | + +--------+ + + + | COMPREHENSIVE | Routin | 01/19/2013 | Cerebellar ataxia | Results for this | | METABOLIC PANEL | e | 3:38 PM | (HCC) | procedure are in the | | | | PDT | | results section. | + +--------+ + + + documented in this encounter Results CBC with Differential (01/19/2013 3:42 PM PDT) + +---------+ + + + | Component | Value | Ref Range | Performed | Pathologist | | | | | At | Signature | + +---------+ + + + | MANUAL | NO | | [facility] | | | [facility] | | | [facility] | | | L ? | | | MEDICAL | | | | | | CENTER - | | | | | | LABORATORY | | + +---------+ + + + | WBC | 9.0 | 4.0 - 11.0 K/uL | [facility] | | | | | | [facility] | | | | | | MEDICAL | | | | | | CENTER - | | | | | | LABORATORY | | + +---------+ + + + | RBC | 4.83 | 4.30 - 5.70 | [facility] | | | | | M/uL | [facility] | | | | | | MEDICAL | | | | | | CENTER - | | | | | | LABORATORY | | + +---------+ + + + | Hemoglobin | 15.1 | 13.5 - 18.0 | [facility] | | | | | gm/dL | [facility] | | | | | | MEDICAL | | | | | | CENTER - | | | | | | LABORATORY | | + +---------+ + + + | Hematocrit | 46.1 | 40.0 - 51.0 % | [facility] | | | | | | [facility] | | | | | | MEDICAL | | | | | | CENTER - | | | | | | LABORATORY | | + +---------+ + + + | MCV | 95.6 | 83.0 - 101.0 fL | [facility] | | | | | | [facility] | | | | | | MEDICAL | | | | | | CENTER - | | | | | | LABORATORY | | + +---------+ + + + | MCH | 31.2 | 28.0 - 35.0 pg | [facility] | | | | | | [facility] | | | | | | MEDICAL | | | | | | CENTER - | | | | | | LABORATORY | | + +---------+ + + + | MCHC | 32.6 | 32.0 - 36.0 | [facility] | | | | | g/dL | [facility] | | | | | | MEDICAL | | | | | | CENTER - | | | | | | LABORATORY | | + +---------+ + + + | RDW-CV | 13.3 | <15.0 % | [facility] | | | | | | [facility] | | | | | | MEDICAL | | | | | | CENTER - | | | | | | LABORATORY | | + +---------+ + + + | Platelet | 240 | 140 - 440 K/uL | [facility] | | | Count | | | [facility] | | | | | | MEDICAL | | | | | | CENTER - | | | | | | LABORATORY | | + +---------+ + + + | % | 56.1 | 45 - 75 % | [facility] | | | Neutrophils | | | [facility] | | | | | | MEDICAL | | | | | | CENTER - | | | | | | LABORATORY | | + +---------+ + + + | % | 33.8 | 20 - 45 % | [facility] | | | Lymphocytes | | | [facility] | | | | | | MEDICAL | | | | | | CENTER - | | | | | | LABORATORY | | + +---------+ + + + | % Monocytes | 6.1 | 4 - 12 % | [facility] | | | | | | [facility] | | | | | | MEDICAL | | | | | | CENTER - | | | | | | LABORATORY | | + +---------+ + + + | % | 1.9 | 0 - 5 % | [facility] | | | Eosinophils | | | [facility] | | | | | | MEDICAL | | | | | | CENTER - | | | | | | LABORATORY | | + +---------+ + + + | % Basophils | 2.1 (H) | 0 - 1 % | [facility] | | | | | | [facility] | | | | | | MEDICAL | | | | | | CENTER - | | | | | | LABORATORY | | + +---------+ + + + | Absolute | 5.0 | 1.5 - 6.6 K/uL | [facility] | | | Neutrophils | | | [facility] | | | | | | MEDICAL | | | | | | CENTER - | | | | | | LABORATORY | | + +---------+ + + + | Absolute | 3.0 | 0.6 - 3.2 K/uL | [facility] | | | Lymphocytes | | | [facility] | | | | | | MEDICAL | | | | | | CENTER - | | | | | | LABORATORY | | + +---------+ + + + | Absolute | 0.6 | 0.0 - 1.0 K/uL | [facility] | | | Monocytes | | | [facility] | | | | | | MEDICAL | | | | | | CENTER - | | | | | | LABORATORY | | + +---------+ + + + | Absolute | 0.2 | 0.0 - 0.4 K/uL | [facility] | | | Eosinophils | | | [facility] | | | | | | MEDICAL | | | | | | CENTER - | | | | | | LABORATORY | | + +---------+ + + + | Absolute | 0.2 (H) | 0.0 - 0.1 K/uL | [facility] | | | Basophils | | | [facility] | | | | | | MEDICAL | | | | | | CENTER - | | | | | | LABORATORY | | + +---------+ + + + + + | Specimen | + + | | + + + + + + + | Performing | Address | City/State/Zipcode | Phone Number | | Organization | | | | + + + + + | [facility] | [address] | [place] | [phone] | | [facility] | | [address] | | | - LABORATORY | | | | + + + + + | [facility] | [address] | [place] | | | [facility] | | [address] | | | - LABORATORY | | | | + + + + + Ceruloplasmin (01/19/2013 3:42 PM PDT) + + + + + + | Component | Value | Ref Range | Performed | Pathologist | | | | | At | Signature | + + + + + + | CERULOPLASM | 34Comment: Testing | 7 - 220 mg/dL | [facility] | | | [place] | Performed: [facility], [address] | [facility] | | | | [place] | | MEDICAL | | | | [address] CLIA: [id number] | | CENTER - | | | | | | LABORATORY | | + + + + + + + + | Specimen | + + | | + + + + + + + | Performing | Address | City/State/Zipcode | Phone Number | | Organization | | | | + + + + + | [facility] | [address] | [place] | [phone] | | [facility] | | [address] | | | - LABORATORY | | | | + + + + + | [facility] | [address] | [place] | | | [facility] | | [address] | | | - LABORATORY | | | | + + + + + Vitamin E (01/19/2013 3:42 PM PDT) + + + + + + | Component | Value | Ref Range | Performed | Pathologist | | | | | At | Signature | + + + + + + | Alpha-Tocop | 9.3Comment: NOTE: | 5.5 - 21.0 mg/L | [facility] | | | herol | METHOD CHANGE HPLC | | [facility] | | | | Corrected on 02/06 AT | | MEDICAL | | | | 1518: Previously | | CENTER - | | | | Reported as 2.1 This | | LABORATORY | | | | assay does not measure | | | | | | Vitamin E metabolites, | | | | | | gamma tocopherol. This | | | | | | test was developed and | | | | | | its performance | | | | | | characteristics | | | | | | determined by [facility] | | | | | | Division of | | | | | | Laboratory Medicine. | | | | | | The U.S. Food and Drug | | | | | | Administration (FDA) | | | | | | has not approved or | | | | | | cleared this test. | | | | | | However, FDA | | | | | | approval or clearance | | | | | | is currently not | | | | | | required for clinical | | | | | | use of this test. The | | | | | | results are not intended | | | | | | to be used as the | | | | | | sole means for clinical | | | | | | diagnosis or patient | | | | | | management decisions. | | | | | | [facility] is authorized | | | | | | under Clinical | | | | | | Laboratory Improvement | | | | | | Amendments (CLIA) to | | | | | | perform high | | | | | | complexity testing. | | | | | | Testing Performed: [facility], | | | | | | [address], | | | | | | [place] [address] | | | | | | CLIA: [id number] | | | | + + + + + + + + | Specimen | + + | | + + + + + + + | Performing | Address | City/State/Zipcode | Phone Number | | Organization | | | | + + + + + | [facility] | [address] | [place] | [phone] | | [facility] | | [address] | | | - LABORATORY | | | | + + + + + | [facility] | [address] | [place] | | | [facility] | | [address] | | | - LABORATORY | | | | + + + + + TSH (01/19/2013 3:42 PM PDT) + + + + + + | Component | Value | Ref Range | Performed | Pathologist | | | | | At | Signature | + + + + + + | TSH | 1.14Comment: Testing | 0.34 - 5.60 | [facility] | | | | performed on the Josr | uIU/mL | [facility] | | | | [facility] [facility] | | MEDICAL | | | | Analyzer. | | CENTER - | | | | | | LABORATORY | | + + + + + + + + | Specimen | + + | | + + + + + + + | Performing | Address | City/State/Zipcode | Phone Number | | Organization | | | | + + + + + | [facility] | [address] | [place] | [phone] | | [facility] | | [address] | | | - LABORATORY | | | | + + + + + | [facility] | [address] | [place] | | | [facility] | | [address] | | | - LABORATORY | | | | + + + + + Comprehensive Metabolic Panel (01/19/2013 3:42 PM PDT) + + + + + + | Component | Value | Ref Range | Performed | Pathologist | | | | | At | Signature | + + + + + + | Glucose | 91 | 70 - 109 mg/dL | [facility] | | | | | | [facility] | | | | | | MEDICAL | | | | | | CENTER - | | | | | | LABORATORY | | + + + + + + | Calcium | 9.1 | 8.3 - 10.5 | [facility] | | | | | mg/dL | [facility] | | | | | | MEDICAL | | | | | | CENTER - | | | | | | LABORATORY | | + + + + + + | Alkaline | 99 | 40 - 110 IU/L | [facility] | | | Phosphatase | | | [facility] | | | | | | MEDICAL | | | | | | CENTER - | | | | | | LABORATORY | | + + + + + + | AST | 18 | 10 - 42 IU/L | [facility] | | | | | | [facility] | | | | | | MEDICAL | | | | | | CENTER - | | | | | | LABORATORY | | + + + + + + | ALT | 17 | 6 - 45 IU/L | [facility] | | | | | | [facility] | | | | | | MEDICAL | | | | | | CENTER - | | | | | | LABORATORY | | + + + + + + | Bilirubin | 0.7 | 0.2 - 1.0 mg/dL | [facility] | | | Total | | | [facility] | | | | | | MEDICAL | | | | | | CENTER - | | | | | | LABORATORY | | + + + + + + | Total | 6.6 | 6.0 - 7.8 gm/dL | [facility] | | | Protein | | | [facility] | | | | | | MEDICAL | | | | | | CENTER - | | | | | | LABORATORY | | + + + + + + | Albumin | 3.9 | 3.2 - 5.0 gm/dL | [facility] | | | | | | [facility] | | | | | | MEDICAL | | | | | | CENTER - | | | | | | LABORATORY | | + + + + + + | BUN | 7 | 7 - 18 mg/dL | [facility] | | | | | | [facility] | | | | | | MEDICAL | | | | | | CENTER - | | | | | | LABORATORY | | + + + + + + | Creatinine | 0.84 | 0.60 - 1.30 | [facility] | | | | | mg/dL | [facility] | | | | | | MEDICAL | | | | | | CENTER - | | | | | | LABORATORY | | + + + + + + | Estimated | >60Comment: For | >60 mL/min/A | [facility] | | | GFR | -Americans, | | TK | | | | please multiply the | | MEDICAL | | | | result by 1.210 | | CENTER - | | | | This is an estimated | | LABORATORY | | | | GFR and is based on a | | | | | | standard adult | | | | | | body mass (A=1.73m2) and | | | | | | serum creatinine | | | | + + + + + + | BUN/Creatin | 8.3 (L) | 12 - 20 | [facility] | | | ine Ratio | | | [facility] | | | | | | MEDICAL | | | | | | CENTER - | | | | | | LABORATORY | | + + + + + + | Na | 140 | 136 - 149 mEq/L | [facility] | | | | | | [facility] | | | | | | MEDICAL | | | | | | CENTER - | | | | | | LABORATORY | | + + + + + + | K | 4.1 | 3.5 - 5.1 mEq/l | [facility] | | | | | | [facility] | | | | | | MEDICAL | | | | | | CENTER - | | | | | | LABORATORY | | + + + + + + | Cl | 107 | 98 - 109 mEq/l | [facility] | | | | | | [facility] | | | | | | MEDICAL | | | | | | CENTER - | | | | | | LABORATORY | | + + + + + + | CO2 | 24 | 24 - 31 mEq/L | [facility] | | | | | | [facility] | | | | | | MEDICAL | | | | | | CENTER - | | | | | | LABORATORY | | + + + + + + | Anion Gap | 13.1 | 6.0 - 17.0 | [facility] | | | | | | [facility] | | | | | | MEDICAL | | | | | | CENTER - | | | | | | LABORATORY | | + + + + + + + + | Specimen | + + | | + + + + + + + | Performing | Address | City/State/Zipcode | Phone Number | | Organization | | | | + + + + + | [facility] | [address] | [place], [place] | [phone] | | [facility] | | [address] | | | - LABORATORY | | | | + + + + + | [facility] | [address] | [place], [place] | | | [facility] | | [address] | | | - LABORATORY | | | | + + + + + Magnesium (01/19/2013 3:42 PM PDT) + +-------+ + + + | Component | Value | Ref Range | Performed | Pathologist | | | | | At | Signature | + +-------+ + + + | Magnesium | 1.9 | 1.8 - 2.5 mg/dL | [facility] | | | | | | [facility] | | | | | | MEDICAL | | | | | | CENTER - | | | | | | LABORATORY | | + +-------+ + + + + + | Specimen | + + | | + + + + + + + | Performing | Address | City/State/Zipcode | Phone Number | | Organization | | | | + + + + + | [facility] | [address] | [place] | [phone] | | [facility] | | [address] | | | - LABORATORY | | | | + + + + + | [facility] | [address] | [place] | | | [facility] | | [address] | | | - LABORATORY | | | | + + + + + Ceruloplasmin (01/19/2013 3:38 PM PDT) + + + + + + | Component | Value | Ref Range | Performed | Pathologist | | | | | At | Signature | + + + + + + | CERULOPLASM | 34Comment: Testing | 7 - 220 mg/dL | [facility] | | | [place] | Performed: [facility], [address] | [address] [facility] | | | | [place] [address], [place] | | MEDICAL | | | | [id number]: [id number] | | CENTER - | | | | | | LABORATORY | | + + + + + + + + | Specimen | + + | Blood specimen | | (specimen) | + + + + + + + | Performing | Address | City/State/Zipcode | Phone Number | | Organization | | | | + + + + + | [facility] | [address] | [place] | [phone] | | [facility] | | [address] | | | - LABORATORY | | | | + + + + + | [facility] | [address] | [place] | | | [facility] | | [address] | | | - LABORATORY | | | | + + + + + TSH (01/19/2013 3:38 PM PDT) + + + + + + | Component | Value | Ref Range | Performed | Pathologist | | | | | At | Signature | + + + + + + | TSH | 1.14Comment: Testing | 0.34 - 5.60 | [facility] | | | | performed on the Josr | uIU/mL | [facility] | | | | [facility] [facility] | | MEDICAL | | | | Analyzer. | | CENTER - | | | | | | LABORATORY | | + + + + + + + + | Specimen | + + | Blood specimen | | (specimen) | + + + + + + + | Performing | Address | City/State/Zipcode | Phone Number | | Organization | | | | + + + + + | [facility] | [address] | [place] | [phone] | | [facility] | | [address] | | | - LABORATORY | | | | + + + + + | [facility] | [address] | [place] | | | [facility] | | [address] | | | - LABORATORY | | | | + + + + + Vitamin E (01/19/2013 3:38 PM PDT) + + + + + + | Component | Value | Ref Range | Performed | Pathologist | | | | | At | Signature | + + + + + + | Alpha-Tocop | 9.3Comment: NOTE: | 5.5 - 21.0 mg/L | [facility] | | | herol | METHOD CHANGE | | [facility] | | | | HPLCCorrected on 02/06 | | MEDICAL | | | | AT 1518: Previously | | CENTER - | | | | Reported as 2.1 | | LABORATORY | | | | Thisassay does not | | | | | | measure Vitamin E | | | | | | metabolites, | | | | | | gammatocopherol. This | | | | | | test was developed and | | | | | | its | | | | | | performancecharacteristi | | | | | | cs determined by | | | | | | [facility] | | | | | | ofLaboratory Medicine. | | | | | | The U.S. Food and Drug | | | | | | Administration(FDA) has | | | | | | not approved or cleared | | | | | | this test. However, | | | | | | FDAapproval or clearance | | | | | | is currently not | | | | | | required for clinicaluse | | | | | | of this test. The | | | | | | results are not intended | | | | | | to be used asthe sole | | | | | | means for clinical | | | | | | diagnosis or patient | | | | | | managementdecisions. | | | | | | [facility] is authorized | | | | | | under | | | | | | ClinicalLaboratory | | | | | | Improvement Amendments | | | | | | (CLIA) to perform | | | | | | highcomplexity testing. | | | | | | Testing Performed: [facility], | | | | | | [address], | | | | | | [place] [address] | | | | | | CLIA: [id number] | | | | + + + + + + + + | Specimen | + + | Blood specimen | | (specimen) | + + + + + + + | Performing | Address | City/State/Zipcode | Phone Number | | Organization | | | | + + + + + | [facility] | [address] | [place] | [phone] | | [facility] | | [address] | | | - LABORATORY | | | | + + + + + | [facility] | [address] | [place] | | | [facility] | | [address] | | | - LABORATORY | | | | + + + + + Magnesium (01/19/2013 3:38 PM PDT) + +-------+ + + + | Component | Value | Ref Range | Performed | Pathologist | | | | | At | Signature | + +-------+ + + + | Magnesium | 1.9 | 1.8 - 2.5 mg/dL | [facility] | | | | | | [facility] | | | | | | MEDICAL | | | | | | CENTER - | | | | | | LABORATORY | | + +-------+ + + + + + | Specimen | + + | Blood specimen | | (specimen) | + + + + + + + | Performing | Address | City/State/Zipcode | Phone Number | | Organization | | | | + + + + + | [facility] | [address] | [place] | [phone] | | [facility] | | [address] | | | - LABORATORY | | | | + + + + + | [facility] | [address] | [place] | | | [facility] | | [address] | | | - LABORATORY | | | | + + + + + Comprehensive Metabolic Panel (01/19/2013 3:38 PM PDT) + + + + + + | Component | Value | Ref Range | Performed | Pathologist | | | | | At | Signature | + + + + + + | Glucose | 91 | 70 - 109 mg/dL | [facility] | | | | | | [facility] | | | | | | MEDICAL | | | | | | CENTER - | | | | | | LABORATORY | | + + + + + + | Calcium | 9.1 | 8.3 - 10.5 | [facility] | | | | | mg/dL | [facility] | | | | | | [facility] | | | | [facility] - | | | | | | LAB[facility]ATORY | | + + + + + + | Alkaline | 99 | 40 - 110 IU/L | [facility] | | | Phosphatase | | | [facility] | | | | | | [facility] | | | | | | [facility] - | | | | | | LAB[facility]ATORY | | + + + + + + | AST | 18 | 10 - 42 IU/L | [facility] | | | | | | [facility] | | | [facility] | [facility] | | | | | | [facility] - | | | | | | LAB[facility]ATORY | | + + + + + + | ALT | 17 | 6 - 45 IU/L | [facility] | | | | | | [facility] | | [facility] | [facility] | | | | | | [facility] - | | | | | | [facility]ATORY | | + + + + + + | Bilirubin | 0.7 | 0.2 - 1.0 mg/dL | [facility] | | | Total | | | [facility] | | | [facility] | [facility] | | | | | [facility] - | | | | | | [facility]ATORY | | + + + + + + | Total | 6.6 | 6.0 - 7.8 gm/dL | [facility] | | | Protein | | | [facility] | | | | | | [facility] | | | | | [facility] - | | | | | | [facility]ATORY | | + + + + + + | Albumin | 3.9 | 3.2 - 5.0 gm/dL | [facility] | | | | | | [facility] | [facility] | [facility] | | | | | | [facility] - | | | | | | [facility]ATORY | | + + + + + + | BUN | 7 | 7 - 18 mg/dL | [facility] | | | | | | [facility] | | | [facility] | [facility] | | | | | | [facility] - | | | | | | [facility]ATORY | | + + + + + + | Creatinine | 0.84 | 0.60 - 1.30 | [facility] | | | | | mg/dL | [facility] | | | | | | [facility] | | | | | | [facility] - | | | | | | LAB[facility]ATORY | | + + + + + + | Estimated | >60Comment: For | >60 mL/min/A | [facility] | | | GFR | -Americans, | | [facility] | | | | please multiply the | | MEDICAL | | | | result by 1.210 | | CENTER - | | | | This is an estimated GFR | | LABORATORY | | | | and is based on a | | | | | | standard adult | | | | | | body mass (A=1.73m2) and | | | | | | serum creatinine | | | | + + + + + + | BUN/Creatin | 8.3 (L) | 12 - 20 | [facility] | | | ine Ratio | | | [facility] | | | | | | [facility] | | | | | | [facility] - | | | | | | LAB[facility]ATORY | | + + + + + + | Na | 140 | 136 - 149 mEq/L | [facility] | | | | | | [facility] | | | | | | [facility] | | | | | | [facility] - | | | | | | LAB[facility]ATORY | | + + + + + + | K | 4.1 | 3.5 - 5.1 mEq/l | [facility] | | | | | | [facility] | | | [facility] | [facility] | | | | | | [facility] - | | | | | | LAB[facility]ATORY | | + + + + + + | Cl | 107 | 98 - 109 mEq/l | [facility] | | | | | | [facility] | | | [facility] | [facility] | | | | | | [facility] - | | | | | | [facility]ATORY | | + + + + + + | CO2 | 24 | 24 - 31 mEq/L | [facility] | | | | | | [facility] | | [facility] | [facility] | | | | | | [facility] - | | | | | | LAB[facility]ATORY | | + + + + + + | Anion Gap | 13.1 | 6.0 - 17.0 | [facility] | | | | | | [facility] | | | | | | [facility] | | | | | | [facility] - | | | | | | LAB[facility]ATORY | | + + + + + + + + | Specimen | + + | Blood specimen | | (specimen) | + + + + + + + | Performing | Address | City/State/Zipcode | Phone Number | | Organization | | | | + + + + + | [facility] | [address] | [place] | [phone] | | [facility] | | [address] | | | - LABORATORY | | | | + + + + + | [facility] | [address] | [place] | | | [facility] | | [address] | | | - LABORATORY | | | | + + + + + CBC with Differential (01/19/2013 3:38 PM PDT) + +---------+ + + + | Component | Value | Ref Range | Performed | Pathologist | | | | | At | Signature | + +---------+ + + + | WBC | 9.0 | 4.0 - 11.0 K/uL | [facility] | [facility] | | [facility] - | | | | | | LABORATORY | | + +---------+ + + + | RBC | 4.83 | 4.30 - 5.70 | [facility] | | | | | [facility]L | [facility] | | | | | [facility] | | | | | | [facility] - | | | | | | LABORATORY | | + +---------+ + + + | Hemoglobin | 15.1 | 13.5 - 18.0 | [facility] | | | | | gm/dL | [facility] | | | | | | [facility] | | | | | | CENTER - | | | | | | LABORATORY | | + +---------+ + + + | Hematocrit | 46.1 | 40.0 - 51.0 % | [facility] | | | | | [facility] | | [facility] | [facility] | | | | | | [facility] - | | | | | | LABORATORY | | + +---------+ + + + | MCV | 95.6 | 83.0 - 101.0 fL | [facility] | | | | | [facility] | [facility] | | | | | | [facility] - | | | | | | LABORATORY | | + +---------+ + + + | MCH | 31.2 | 28.0 - 35.0 pg | [facility] | | | | | | [facility] | | | | [facility] | [facility] | | | | | | CENTER - | | | | | | LABORATORY | | + +---------+ + + + | MCHC | 32.6 | 32.0 - 36.0 | [facility] | | | | | g/dL | [facility] | | | | | | [facility] | | | | | | CENTER - | | | | | | LABORATORY | | + +---------+ + + + | RDW-CV | 13.3 | <15.0 % | [facility] | | | | | | [facility] | | | [facility] | [facility] | | | | | | CENTER - | | | | | | LABORATORY | | + +---------+ + + + | Platelet | 240 | 140 - 440 K/uL | [facility] | | | Count | | | [facility] | | | | | | [facility] | | | | | | CENTER - | | | | | | LABORATORY | | + +---------+ + + + | % | 56.1 | 45 - 75 % | [facility] | | | Neutrophils | | | [facility] | | | | | | [facility] | | | | | | CENTER - | | | | | | LABORATORY | | + +---------+ + + + | % | 33.8 | 20 - 45 % | [facility] | | | Lymphocytes | | | [facility] | | | | | | [facility] | | | | | | CENTER - | | | | | | LABORATORY | | + +---------+ + + + | % Monocytes | 6.1 | 4 - 12 % | [facility] | | | | | | [facility] | | | [facility] | [facility] | | | | | | CENTER - | | | | | | LABORATORY | | + +---------+ + + + | % | 1.9 | 0 - 5 % | [facility] | | | Eosinophils | | | [facility] | | | | | | [facility] | | | | | | CENTER - | | | | | | LABORATORY | | + +---------+ + + + | % Basophils | 2.1 (H) | 0 - 1 % | [facility] | | | | | | [facility] | | | | | | [facility] | | | | | | CENTER - | | | | | | LABORATORY | | + +---------+ + + + | Absolute | 5.0 | 1.5 - 6.6 K/uL | [facility] | | | Neutrophils | | | [facility] | | | | | | [facility] | | | | | | CENTER - | | | | | | LABORATORY | | + +---------+ + + + | Absolute | 3.0 | 0.6 - 3.2 K/uL | [facility] | | | Lymphocytes | | | [facility] | | | | | | [facility] | | | | | | CENTER - | | | | | | LABORATORY | | + +---------+ + + + | Absolute | 0.6 | 0.0 - 1.0 K/uL | [facility] | | | Monocytes | | | [facility] | | | | | | [facility] | | | | | | CENTER - | | | | | | LABORATORY | | + +---------+ + + + | Absolute | 0.2 | 0.0 - 0.4 K/uL | [facility] | | | Eosinophils | | | [facility] | | | | | | [facility] | | | | | | CENTER - | | | | | | LABORATORY | | + +---------+ + + + | Absolute | 0.2 (H) | 0.0 - 0.1 K/uL | [facility] | | | Basophils | | | [facility] | | | | | | [facility] | | | | | | CENTER - | | | | | | LABORATORY | | + +---------+ + + + + + | Specimen | + + | Blood specimen | | (specimen) | + + + + + + + | Performing | Address | City/State/Zipcode | Phone Number | | Organization | | | | + + + + + | [facility] | [address] | [place] | [phone] | | [facility] | | [address] | | | - LABORATORY | | | | + + + + + | [facility] | [address] | [place] | | | [facility] | | [address] | | | - LABORATORY | | | | + + + + + documented in this encounter Visit Diagnoses + + | Diagnosis | + + | Cerebellar ataxia (HCC) Other cerebellar ataxia | + + documented in this encounter"
--- OUTSIDE RECORDS SUMMARY | ~2019-02-26 | XMS | Encounter Summary ---
Demographics + + + | Address | [address] | | | [place] [address] | + + + | Home Phone | | + + + | Preferred Language | Unknown | + + + | Marital Status | | + + + | Quaker Affiliation | 1061 | + + + | Race | Unknown | + + + | Ethnic Group | Unknown | + + + Author + + + | Author | [facility] | | | and Vargas[place] | + + + | Organization | [facility] | | | and [place] | + + + | Address | Unknown | + + + | Phone | Unavailable | + + + Support + + + + + | Name | Relationship | Address | Phone | + + + + + | Palak Aguilar | ECON | [address] | | | | | [address] | | + + + + + Care Team Providers + +------+ + | Care Gas Appliance Servicer Helper Name | Role | Phone | + [...] Description | +--------+--------+ + + + | 05/15/ | Refill | [facility] [place] | [place], | Medication Refill | | 2013 | | PULMONARY [address] | Ling Frazier MD | | | | | [place], | | | | | | [place] [address] | | | | | | [phone] | | | +--------+--------+ + + + [...]
--- OUTSIDE RECORDS SUMMARY | ~2019-02-26 | XMS | Encounter Summary ---
Demographics + + + | Address | [address] | | | [place] [address] | + + + | Home Phone | | + + + | Preferred Language | Unknown | + + + | Marital Status | Single | + + + | Buddhism Affiliation | Unknown | + + + | Race | Unknown | + + + | Ethnic Group | Other Race | + + + Author + + + | Author | [facility] | + + + | Organization | [facility] | + + + | Address | Unknown | + + + | Phone | Unavailable | + + + Care Team Providers + +------+ + | Care Health Outreach Worker Name | Role | Phone | + +------+ + | Jose Angel Reina MD | PCP | | + +------+ + Reason for Visit + + + | Reason | Comments | + + + | New patient | | | consultation | | + + + Intake Referral (Routine) +--------+--------+ + + + + | Status | Reason | Specialty | Diagnoses / | Referred By | Referred To | | | | | Procedures | Contact | Contact | +--------+--------+ + + + + | Closed | | Neurology | Diagnoses | Williamson, Roderick, | [facility] | | | | | Other | MD [address] | Disorder [address] | | | | | cerebellar | [facility] | [address] | | | | | ataxia | [place] | [address] | | | | | | [address] | Mailcode: | | | | | | Phone: | [address] | | | | | | [phone] | for Health | | | | | | Fax: | and Healing, | | | | | | [phone] | [address], | | | | | | | 8th Floor | | | | | | | [place], [place] | | | | | | | [address] | | | | | | | Phone: | | | | | | | [phone] | | | | | | | Fax: | | | | | | | [phone] | +--------+--------+ + + + + Encounter Details +--------+---------+ + + + | Date | Type | Department | Care Team | Description | +--------+---------+ + + + | 07/18/ | Office | Neurology at | Moisés Rudd, | Cerebellar ataxia | | 2013 | Visit | [facility] & | [address] | ([facility]) (Primary Dx) | | | | Healing [address] | [address] | | | | | [place] Mailcode: | [place], [place] | | | | | [address] | [address] | | | | | Health and Healing, | [phone] | | | | | [facility] | | | | | | [place], [place] | | | | | | [address] | | | | | | [phone] | | | +--------+---------+ + + + Social History + +-------+ [...] Pressure | 101/73 | 07/18/2013 2:17 PM | | | | | PDT | | + + + + + | Pulse | 92 | 07/18/2013 2:17 PM | | | | | PDT [...] kg (225 lb) | 07/18/2013 2:17 PM | | | | | PDT | | + + + + + | Height | - | - | | + + + + + | Body Mass Index | - | - | | + + + + + documented in this encounter Progress Notes Moisés Rudd MD - 07/18/2013 2:59 PM PDTFormatting of this note might be different fro m the original. CC: Ataxia HPI: Nazario Aguilar Leonora is a 62 y.o. male on whom we were consulted for second opinion for ataxia. He has had trouble with coordination over the last ten years. It is getting a little worse . Sometimes his legs will just give out on him. Sometimes he will wobble a bit 'like he is drunk'. He has fallen in the past. He has a walker which he uses most of the time. He is not working currently since 1994. He disability for seizures and maybe COPD. Hands are wo rking OK, but he has trouble with his hands. Swallowing is a problem. He also has some trouble slurred speech. He sometimes gets neck pain on one side as well. Not too many vision problems. His brother has brother has leg problems which also had a bunch of tests but has not had a diagnosis. He lives in [place]. No one else in the family. His mother a 101 years old. His father was in a wheelchair. Seizures involved losing his eyesight. They would last for about 30 seconds. He went back to normal. He had some difference of opinion about what these were. His CBZ has helped. The last one he was about 2 months ago. This has been going on for several years. ROS: Eye: (negative) ENT: (as above) Neuro: (as above) Psych: (negative) The rest was reviewed and negative except as noted above. PMHx: COPD High cholesterol Hypertension Diabetes mellitus 2 Seizures RLS S/p shante, T&A, hernia, Current Outpatient Prescriptions Medication Sig acetaminophen (TYLENOL EXTRA STRENGTH) 500 mg oral tablet Take 500 mg by mouth as neede d. aspirin (KETTY ASPIRIN) 325 mg oral tablet Take 325 mg by mouth once daily. ATORVASTATIN 80 mg oral tablet Take by mouth once daily. DALIRESP 500 mcg oral tablet Take by mouth once daily. EPITOL 200 mg oral tablet Take by mouth four times daily. fluticasone-salmeterol 500-50 mcg/dose inhalation disk with device Inhale 1 puff two ti mes daily. LISINOPRIL 2.5 mg oral tablet Take by mouth once daily. METFORMIN 500 mg oral tablet Take by mouth two times daily. MISCELLANEOUS MEDICAL SUPPLY (RX HOME OXYGEN) once daily at bedtime. Use as directed. PROAIR HFA 90 mcg/actuation inhalation HFA aerosol inhaler Inhale three times daily. ROPINIROLE 1 mg oral tablet Take by mouth once daily. SENNOSIDES (SENNA LAX ORAL) Take by mouth two times daily. SPIRIVA WITH HANDIHALER 18 mcg inhalation capsule, w/inhalation device once daily. TIZANIDINE 2 mg oral tablet Take by mouth as needed. No current facility-administered medications for this visit. Allergies not on file Allergic to Zantac- passed out levoquin- rash on arms FHx: As above History Social History Marital Status: Single Spouse Name: N/A Number of Children: N/A Years of Education: N/A Occupational History Not on file. 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 Physical Examination: Vital Signs: BP 101/73 | Pulse 92 | Wt 102.059 kg (225 lb) General exam: Mr. Aguilar is in no apparent distress. There are no carotid bruits. The h eart is regular in rate and rhythm. Neurological Examination: Mental status examination: Mr. Aguilar was alert and oriented x3. Speech was mildly dysar thric, but I was able to understand 80% of what he said. Comprehension was normal. Languag e was otherwise normal. Cranial nerves: Cranial nerves II-XII revealed no disc edema on fundoscopic examination. Extra-ocular movements were full with horizontal nystagmus on end gaze bilaterally. Facial sensation was intact to pinprick and light touch. No facial droop was noted. Hearing was n ormal bilaterally. Palate elevated to midline. Sternocleidomastoid and Trapezius were 5/ 5 bilaterally. Tongue protruded to midline. Strength testing revealed 5/5 strength bilaterally in the arms and legs. Reflexes were 2+ and symmetric throughout with toes downgoing bilaterally. Pinprick and vibratory sensation was normal in the arms and legs. He had ataxia with FTN bilaterally with dyssynergy. Dysdiadochokinesia was present bilater ally. He had trouble following my finger with her finger doing mirror movements. He had so me trouble doing JENNIFER of the hands. He had no bradykinesia. There is no tremor that I could notice. He did have a wide-based gait which was unsteady. Romberg's sign was not elicited (but I felt unsafe doing a true Romberg with feet together). He was not able to tandem gai t. Impression: 1) Cerebellar ataxia Discussion: Mr. Aguilar has signs and symptoms which are consistent with cerebellar ataxia . He does have a family history with his brother being affected, and it sounds like genetic testing has not yet been pursued. He is a little concerned about getting potentially expen sive testing at present as he is going to be switching insurance soon. Will hold off on ellen ting today, and will have his local neurologist consider sending for the tests. Will recommend complete ataxia panel from [place] or equivalent. This will look for the joe or SCA's plus DRPLA and Bolivar's ataxia mutations. I would also recommend sending off fo r the fragile X premutation (FMR1) to look for Fragile X tremor/ataxia syndrome. Agree with Vit E screen and ceruloplasmin which it looks like have already been sent. If these come b ack negative, I would also recommend a lipid screen for abetalipoproteinemia, cholestenol le pio, and complete heavy metal screen. Again, I will not send for these tests today as he w as concerned about insurance payment issues. In terms of treatment, I discussed with him that I don't think that we will likely find a d isease which is curable. Most of what we will focus on is likely working with rehab to help him retain function. I sgree with PT evaluation as he says he has already recevied. I wou ld also recommend speech therapy eval as well to help with his dysarthria. If desired, I could potentially follow up with him through telemedicine services as I now h ave the capability to see return patients at [facility]. For now, we have scheduled him to follow up locally and see me on a consulative basis. I would appreciate seeing the t esting results above when he is able to get them done. If insurance is not going to be feas ible for him to get all these tests completed, then perhaps just doing Fragile X premutation to being with would be reasonable. Recommendations: 1) Consider testing as outlined above 2) Follow up in [place] in 1 year - could be seen through telemedicine sooner if needed I spent 70 minutes with the patient. Greater than 50% of the time was spent counseling the patient regarding disease progression and treatment options. documented in this en counter Plan of Treatment Not on filedocumented as of this encounter Visit Diagnoses + + | Diagnosis | + + | Cerebellar ataxia (HCC) - Primary Other cerebellar ataxia | + + documented in this encounter"
--- OUTSIDE RECORDS SUMMARY | ~2019-02-26 | XMS | Encounter Summary ---
Demographics + + + | Address | [address] | | | [place] [address] | + + + | Home Phone | | + + + | Preferred Language | Unknown | + + + | Marital Status | | + + + | Gnosticism Affiliation | 1061 | + + + | Race | Unknown | + + + | Ethnic Group | Unknown | + + + Author + + + | Author | [facility] | | | and [place]as[place] | + + + | Organization | [facility] | | | and [place] | + + + | Address | Unknown | + + + | Phone | Unavailable | + + + Support + + + + + | Name | Relationship | Address | Phone | + + + + + | Palak Aguilar | ECON | [address] | | | | | [address] | | + + + + + Care Team Providers + +------+ + | Care Patriot Missile Air Defense Artillery Name | Role | Phone | + +------+ + | Jose Angel Reina MD | PCP | | + +------+ + Reason for Visit + + + | Reason | Comments | + + + | Appointment | | + + + Encounter Details +--------+ + + + + | Date | Type | Department | Care Team | Description | +--------+ + + + + | 05/29/ | Telephone | [facility] | [place], | Appointment | | 2016 | | MED CTR PULMONARY | Ling Frazier MD | | | | | FUN[address] | | | | | | [place], | | | | | | [place] [address] | | | | | | [phone] | | | +--------+ + + + [...]
--- OUTSIDE RECORDS SUMMARY | ~2019-02-26 | XMS | Encounter Summary ---
Demographics + + + | Address | [address] | | | [place] [address] | + + + | Home Phone | | + + + | Preferred Language | Unknown | + + + | Marital Status | | + + + | Taoism Affiliation | 1061 | + + + | Race | Unknown | + + + | Ethnic Group | Unknown | + + + Author + + + | Author | [facility] | | | and [place] | + + + | Organization | [facility] | | | and [place] | + + + | Address | Unknown | + + + | Phone | Unavailable | + + + Support + + + + + | Name | Relationship | Address | Phone | + + + + + | Palak Aguilar | ECON | [address] | | | | | [address] | | + + + + + Care Team Providers + +------+ + | Care Quality Control Coordinator Name | Role | Phone | [...] Description | +--------+--------+ + + + | 06/27/ | Refill | [facility] [place] | [place], | Medication Refill | | 2015 | | PULMONARY [address] | Ling Frazier MD | | | | | [place], | | | | | | [place] [address] | | | | | | [phone] | | | +--------+--------+ + + + [...] + + | Comments: 06/17/15: "Down to /2 pack/day" | + + + + +---------+ [...]
--- OUTSIDE RECORDS SUMMARY | ~2019-02-26 | XMS | Encounter Summary ---
Demographics + + + | Address | [address] | | | [place] [address] | + + + | Home Phone | | + + + | Preferred Language | Unknown | + + + | Marital Status | | + + + | Spiritism Affiliation | 1061 | + + + | Race | Unknown | + + + | Ethnic Group | Unknown | + + + Author + + + | Author | [facility] | | | and [place]as[place] | + + + | Organization | [facility] | | | and [place] | + + + | Address | Unknown | + + + | Phone | Unavailable | + + + Support + + + + + | Name | Relationship | Address | Phone | + + + + + | Palak Aguialr | ECON | [address] | | | | | [address] | | + + + + + Care Team Providers + +------+ + | Care Air Conditioning Mechanic Name | Role | Phone | + [...] Frazier MD | | | | | [place], | | | | | | [place] [address] | | | | | | [phone] | | | +--------+--------+ + + + [...]
--- OUTSIDE RECORDS SUMMARY | ~2019-02-26 | XMS | Encounter Summary ---
Demographics + + + | Address | [address] | | | [place] [address] | + + + | Home Phone | | + + + | Preferred Language | Unknown | + + + | Marital Status | | + + + | Caodaism Affiliation | 1061 | + + + | Race | Unknown | + + + | Ethnic Group | Unknown | + + + Author + + + | Author | [facility] | | | and V[place]as[place] | + + + | Organization | [facility] | | | and [place] | + + + | Address | Unknown | + + + | Phone | Unavailable | + + + Support + + + + + | Name | Relationship | Address | Phone | + + + + + | Palak Aguilar | ECON | [address] | | | | | [address] | | + + + + + Care Team Providers + +------+ + | Care Sole Stitcher Hand Name | Role | Phone | [...] Description | +--------+--------+ + + + | 07/16/ | Refill | [facility] [place] | [place], | Medication Refill | | 2014 | | PULMONARY [address] | Ling Frazier MD | | | | | [place], | | | | | | [place] [address] | | | | | | [phone] | | | +--------+--------+ + + + [...]
--- OUTSIDE RECORDS SUMMARY | ~2019-02-26 | XMS | Encounter Summary ---
Demographics + + + | Address | [address] | | | [place] [address] | + + + | Home Phone | | + + + | Preferred Language | Unknown | + + + | Marital Status | | + + + | Temple Affiliation | 1061 | + + + | Race | Unknown | + + + | Ethnic Group | Unknown | + + + Author + + + | Author | [facility] | | | and [place]argasana | + + + | Organization | [facility] | | | and [place] | + + + | Address | Unknown | + + + | Phone | Unavailable | + + + Support + + + + + | Name | Relationship | Address | Phone | + + + + + | Palak Aguilar | ECON | [address] | | | | | [address] | | + + + + + Care Team Providers + +------+ + | Care Food Services Coordinator Name | Role | Phone | + +------+ + PCP | Unavailable | + +------+ + Encounter Details +--------+ + + + + | Date | Type | Department | Care Team | Description | +--------+ + + + + | 07/19/ | [facility] | [facility] | Chrissy, | | | 2011 | Encounter | MED CTR LABORATORY | Ling Frazier MD | | | | | [address] | | | | | | [place] | | | | | | [address] | | | | | | [phone] | | | +--------+ + + + [...] + +---------+ + + | roflumilast | Take 500 mcg by | | 0 | 07/20/19 | | | (DALIRESP) 500 mcg | mouth Daily. | | | 12 | 3 | | tablet | | | | [...] | + +--------+ + + + | FERRITIN | Routin | 07/20/2011 | | Results for this | | | e | 5:18 PM | | procedure are in the | | | | PDT | | results section. | + +--------+ + + + | IRON, TOTAL | Routin | 07/20/2011 | | Results for this | | | e | 2:05 PM | | procedure are in the | | | | PDT | | results section. | + +--------+ + + + documented in this encounter Results Ferritin (07/20/2011 5:18 PM PDT) + + + + + + | Component | Value | Ref Range | Performed | Pathologist | | | | | At | Signature | + + + + + + | FERRITIN | 58.8Comment: Testing | 23.9 - 336.0 | [facility] | | | | performed on the [facility] | ng/mL | [facility] | | | | [facility] | | MEDICAL | | | [...] + | [facility] | [address] | [place] | [phone] | | [facility] | | [address] | | | - LABORATORY | | | | + + + + + | [facility] | [address] | [place] | | | [facility] | | [address] | | | - LABORATORY | | | | + + + + + Iron, Total (07/20/2011 2:05 PM PDT) + +-------+ + + + | Component | Value | Ref Range | Performed | Pathologist | | | | | At | Signature | + +-------+ + + + | Iron | 83 | ug/dL | [facility] | | | | | [...] + | [facility] | [address] | [place], [place] | [phone] | | [facility] | | [address] | | | - LABORATORY | | | | + + + + + | [facility] | [address] | [place], [place] | | | [facility] | | [address] | | | - LABORATORY | | | | + + + + + documented in this encounter Visit Diagnoses Not on filedocumented in this encounter"
--- OUTSIDE RECORDS SUMMARY | ~2019-02-26 | XMS | Encounter Summary ---
Demographics + + + | Address | [address] | | | [place] [address] | + + + | Home Phone [...] Author | [facility] | | | and Vargasana | + + + | Organization | [facility] | | | and Vargasana | + + + | Address | Unknown | + + + | Phone | Unavailable | + + + Support + + + + + | Name | Relationship | Address | Phone | + + + + + | Palak Aguilar | ECON | #[address] | | | | | [address] | | + + + + + Care Team Providers + +------+ + | Care Store Grocery Merchandiser Name | Role | Phone | + +------+ + | Jose Angel Reina MD | PCP | | + +------+ + Reason for Visit +--------+ + | Reason | Comments | +--------+ + | COPD | Yearly | +--------+ + Encounter Details +--------+---------+ + + + | Date | Type | Department | Care Team | Description | +--------+---------+ + + + | 07/08/ | Office | [facility] | Damaso Gavin | Hypoxia (Primary | | 2018 | Visit | PULMONARY [address] | [address] | Dx); Centrilobular | | | | [place], | [place] | emphysema (HCC); | | | | [place] [address] | [place] [address] | Tobacco dependence | | | | [phone] | [phone] | due to cigarettes; | | | | | | Seizure disorder | | | | | | (HCC) | +--------+---------+ + + + Social History [...] + | Diagnosis | + + | Hypoxia - Primary Hypoxemia | + + | Centrilobular emphysema (HCC) | + + | Tobacco dependence due to cigarettes | + + | Seizure disorder (HCC) Unspecified epilepsy without mention of intractable epilepsy | + + documented in this encounter
--- OUTSIDE RECORDS SUMMARY | ~2019-02-26 | XMS | Encounter Summary ---
Demographics + + + | Address | [address] | | | [place] [address] | + + + | Home Phone | | + + + | Preferred Language | Unknown | + + + | Marital Status | | + + + | Uatsdin Affiliation | 1061 | + + + | Race | Unknown | + + + | Ethnic Group | Unknown | + + + Author + + + | Author | [facility] | | | and Vargasana | + + + | Organization | [facility] | | | and Vargasana | + + + | Address | Unknown | + + + | Phone | Unavailable | + + + Support + + + + + | Name | Relationship | Address | Phone | + + + + + | Palak Aguilar | ECON | [id number] | | | | | [address] | | + + + + + Care Team Providers + +------+ + | Care Retinal Surgeon Name | Role | Phone | + +------+ + PCP | Unavailable | + +------+ + Encounter Details +--------+ + + + + | Date | Type | Department | Care Team | Description | +--------+ + + + + | / | [facility] | [facility] | Zoran Espinoza, | Vitreous membranes | | 1999 | Encounter | MEDICAL CENTER | [address] | | | | | OUTPATIENT | [place], [place] | | | | | PROCEDURES [address] | [address] | | | | | [place] | | | | | | [place] | | | | | | [address] | | | | | | [phone] | | | +--------+ + + + [...]
--- OUTSIDE RECORDS SUMMARY | ~2019-02-26 | XMS | Encounter Summary ---
Demographics + + + | Address | [address] | | | [place] [address] | + + + | Home Phone | | + + + | Preferred Language | Unknown | + + + | Marital Status | | + + + | Rastafari Affiliation | 1061 | + + + | Race | Unknown | + + + | Ethnic Group | Unknown | + + + Author + + + | Author | [facility] | | | and Vargasana | + + + | Organization | [facility] | | | and Vargasana | + + + | Address | Unknown | + + + | Phone | Unavailable | + + + Support + + + + + | Name | Relationship | Address | Phone | + + + + + | Palak Aguilar | ECON | [address] [place] | | | | | [address] | | + + + + + Care Team Providers + +------+ + | Care Instructor Robotics Name | Role | Phone | + +------+ + | Jose Angel Reina MD | PCP | | + +------+ + Reason for Visit +---------+ + | Reason | Comments | +---------+ + | Results | Walkiing oximetry | +---------+ + Encounter Details +--------+ + + + + | Date | Type | Department | Care Team | Description | +--------+ + + + + | 06/18/ | Telephone | [facility] [place] | [place], | Results (Walkiing | | 2016 | | PULMONARY [address] | Ling Frazier MD | oximetry ) | | | | [place], | | | | | | [place] [address] | | | | | | [phone] | | | +--------+ + + + [...] as of this encounter Plan of Treatment + + +--------+ + + | Name | Type | Priori | Associated Diagnoses | Order Schedule | | | | ty | | | + + +--------+ + + | Oxygen Therapy | Respiratory | Routin | Hypoxemia | 1 Occurrences | | | Care | e | | starting 06/19/2015 | | | | | | until 06/19/2016 | + + +--------+ + + documented as of this encounter Visit Diagnoses + + | Diagnosis | + + | Hypoxemia - Primary | + + documented in this encounter
--- OUTSIDE RECORDS SUMMARY | ~2019-02-26 | XMS | Encounter Summary ---
Demographics + + + | Address | [address] | | | [place] [address] | + + + | Home Phone | | + + + | Preferred Language | Unknown | + + + | Marital Status | | + + + | Christianity Affiliation | 1061 | + + + | Race | Unknown | + + + | Ethnic Group | Unknown | + + + Author + + + | Author | [facility] | | | and Vargasana | + + + | Organization | [facility] | | | and Vargasana | + + + | Address | Unknown | + + + | Phone | Unavailable | + + + Support + + + + + | Name | Relationship | Address | Phone | + + + + + | Palak Aguilar | ECON | [address] | | | | | [address] | | + + + + + Care Team Providers + +------+ + | Care Order Analyst Name | Role | Phone | [...] Frazier MD | | | | | [place], | | | | | | [place] [address] | | | | | | [phone] | | | +--------+--------+ + + + [...]
--- OUTSIDE RECORDS SUMMARY | ~2019-02-26 | XMS | Encounter Summary ---
Demographics + + + | Address | [address] | | | [place] [address] | + + + | Home Phone [...] Author | [facility] | | | and Vargasana | + + + | Organization | [facility] | | | and Vargasana | + + + | Address | Unknown | + + + | Phone | Unavailable | + + + Support + + + + + | Name | Relationship | Address | Phone | + + + + + | Palak Aguilar | ECON | [address] | | | | | [address] | | + + + + + Care Team Providers + +------+ + | Care Respiratory Manager Name | Role | Phone | [...] Lisa GreenwoodLeonora | | | | | [phone] | [place] [address] | | +--------+ + + + + [...] XR CHEST 1 VIEW | Routin | 04/20/2017 | | Results for this | | | e | 4:35 PM | | procedure are in the | | | | PST | | results section. | + +--------+ + + + documented in this encounter Results XR Chest 1 Vw (04/20/2017 4:35 PM PST) + + | Specimen | [...]
--- OUTSIDE RECORDS SUMMARY | ~2019-02-26 | XMS | Encounter Summary ---
Demographics + + + | Address | [address] | | | [place] [address] | + + + | Home Phone [...] Author | [facility] | | | and Vargasana | + + + | Organization | [facility] | | | and Vargasana | + + + | Address | Unknown | + + + | Phone | Unavailable | + + + Support + + + + + | Name | Relationship | Address | Phone | + + + + + | Palak Aguilar | ECON | [address] | | | | | [address] | | + + + + + Care Team Providers + +------+ + | Care Gauge Machine Operator Name | Role | Phone [...] Frazier MD | | | | | [place], | | | | | | [place] [address] | | | | | | [phone] | | | +--------+--------+ + + + [...]
--- OUTSIDE RECORDS SUMMARY | ~2019-02-26 | XMS | Encounter Summary ---
Demographics + + + | Address | [address] | | | [place] [address] | + + + | Home Phone [...] + | Author | [facility] | | | and Vargasana | + + + | Organization | [facility] | | | and Vargasana | + + + | Address | Unknown | + + + | Phone | Unavailable | + + + Support + + + + + | Name | Relationship | Address | Phone | + + + + + | Palak Daugherty | ECON | [address] | | | | | [address] | | + + + + + Care Team Providers + +------+ + | Care Senior Trainer Name | Role | Phone | + +------+ + | Jose Agnel Reina MD | PCP | | + +------+ + Reason for Referral Diagnostic/Screening (Routine) +--------+--------+ + + + + | Status | Reason | Specialty | Diagnoses / | Referred By | Referred To | | | | | Procedures | Contact | Contact | +--------+--------+ + + + + | Closed | | Radiology | Diagnoses | aDve [facility] | | | | | Lumbar | Karlos Gatica MD | [address] | | | | | spinal | [address] | [place], | | | | | stenosis | [address] | [place] | | | | | Facet | [place], | [address] | | | | | arthritis of | [place] [address] | Phone: | | | | | lumbar | Phone: | [phone] | | | | | region | [phone] | Fax: | | | | | Lumbalgia | Fax: | [phone] | | | | | Procedures | [phone] | | | | | | MRI Lumbar | | | | | | | Spine wo | | | | | | | Contrast | | | +--------+--------+ + + + + Encounter Details +--------+ + + + + | Date | Type | Department | Care Team | Description | +--------+ + + + + | 02/22/ | Hospital | [facility] | Karlos Craig, | Lumbar spinal | | 2012 | Encounter | MED CTR XRAY [address] | [address] | stenosis; Facet | | | | [place] [place] | [place], [place] | arthritis of lumbar | | | | [place] [address] | [address] | region; Lumbalgia | | | | [phone] | | | +--------+ + + + [...] + +--------+ + + + | MRI LUMBAR SPINE WO | Routin | 02/22/2013 | Lumbar spinal | Results for this | | CONTRAST | e | 3:17 PM | stenosis Facet | procedure are in the | | | | PST | arthritis of lumbar | results section. | | | | | region Lumbalgia | | + +--------+ + + + documented in this encounter Results MRI Lumbar Spine wo Contrast (02/22/2013 3:17 PM PST) + + | Specimen | + + | | + + + + + | Narrative | Performed At | + + + | [facility] | [place] | | Department [facility] [place] | [facility] | | [ rep [address]] [ rep ct [facility] | [facility] | | st zip] Signed | - IMAGING | | | | | Patient Name: KEVIN DAUGHERTY SR | | | Physician: ROBINA : 1950 Age: 62 Sex: M Unit | | | #: [id number] Exam Date: 02/22/13 Location: | | | [facility] Report #: [id number] Page: | | | %(RAD)RES..mtdd.print.filter("pg") of %(RAD) | | | RES..mtdd.print.filter("tpg") | | | | | | Accession Number: [id number] | | | LUMBAR SPINE WITHOUT CONTRAST CLINICAL HISTORY: CHRONIC | | | LOW BACK PAIN WITH RADIATION TO BOTH LEGS. WEAKNESS. | | | COMPARISON: Lumbar spine radiograph dated 12/08/2012 from [facility] | | | [facility]. TECHNIQUE: Multiplanar, | | | [...] Transcribed Date/Time: 02/22/2013 | | | 18:05 Regional Truck Driver: <<Signature on | | | File>> | | | Yared | | | Monica Diaz MD02/22/132110 <Electronically signed by Yared Anderson | | | Joe ARIAS> Yared Diaz MD 02/22/13 3278 | | | Regional Truck Driver: YouData [id number]/20/13 [id number] | | | Karlos Craig Jr, MD | | + + + + + + + + | Performing | Address | City/State/Zipcode | Phone Number | | Organization | | | | + + + + + | [facility] | [address] | [place] | [phone] | | [facility] | | [address] | | | - IMAGING | | | | + + + + + documented in this encounter Visit Diagnoses + + | Diagnosis | + + | Lumbar spinal stenosis Spinal stenosis, lumbar region, without neurogenic | | claudication | + + | Facet arthritis of lumbar region Lumbosacral spondylosis without myelopathy | + + | Lumbalgia Lumbago | + + documented in this encounter
--- OUTSIDE RECORDS SUMMARY | ~2019-02-26 | XMS | Encounter Summary ---
Demographics + + + | Address | [address] | | | [place] [address] | + + + | Home Phone | | + + + | Preferred Language | Unknown | + + + | Marital Status | | + + + | Voodoo Affiliation | 1061 | + + + | Race | Unknown | + + + | Ethnic Group | Unknown | + + + Author + + + | Author | [facility] | | | and Vargasana | + + + | Organization | [facility] | | | and Vargasana | + + + | Address | Unknown | + + + | Phone | Unavailable | + + + Support + + + + + | Name | Relationship | Address | Phone | + + + + + | Palak Aguilar | ECON | [address] [place] | | | | | [address] | | + + + + + Care Team Providers + +------+ + | Care Still Tender Name | Role | Phone | + +------+ + | Jose Angel Reina MD | PCP | | + +------+ + Reason for Referral Consultation (Routine) +--------+ + + + + + | Status | Reason | Specialty | Diagnoses / | Referred By | Referred To | | | | | Procedures | Contact | Contact | +--------+ + + + + + | Closed | Specialty | Neurology | Diagnoses | Roderick Williamson, | | | | Services | | Cerebellar | MD [address] | | | | Required | | ataxia (HCC) | [address] | | | | [address] | [address] | | | | | | | [place], | | | | | | | [place] [address] | | | | | | | Phone: | | | | | | | [phone] | | | | | | | Fax: | | | | | | | [phone] | | +--------+ + + + + + Reason for Visit + + + | Reason | Comments | + + + | Follow-up | Review MRI results | + + + Encounter Details +--------+---------+ + + + | Date | Type | Department | Care Team | Description | +--------+---------+ + + + | 01/19/ | Office | [facility] [place] | Roderick Williamson MD [address] | Gait abnormality | | 2012 | Visit | NEUROLOGY [place] | [address] | (Primary Dx); | | | | [address] [facility], | [address] [place], | Cerebellar ataxia | | | | [address] [place] | [place] [address] | ([facility]); Intention | | | | [place] [address] | [phone] | tremor | | | | [phone] | | | +--------+---------+ + + + [...] + + + | Blood Pressure | 104/62 | 01/19/2013 1:31 PM | | | | | PDT | | + + + + + | Pulse | 84 | 01/19/2013 1:31 PM | | | | | PDT | | + + + + + | Temperature | - | - | | + + + + + | Respiratory Rate | 18 | 01/19/2013 1:31 PM | | | | | PDT | | + + + + + | Oxygen Saturation | 95% | 01/19/2013 1:31 PM | | | | | PDT | | + + + + + | Inhaled Oxygen | - | - | | | Concentration | | | | + + + + + | Weight | 103 kg (227 lb) | 01/19/2013 1:31 PM | | | | | PDT | | + + + + + | Height | 175.3 cm (5' 9") | 01/19/2013 1:31 PM | | | | | PDT | | + + + + + | Body Mass Index | 33.52 | 01/19/2013 1:31 PM | | | | | PDT | | + + + + + documented in this encounter Patient Instructions Patient Instructions Roderick Williamson MD - 01/19/2013 1:56 PM PDT1. 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 Plan to check your blood work t galina for potential causes, it is likely a condition that runs in your family. Recommend for you to be seen by ataxia specialist at [facility]. If you have any questions please let me know.El ectronically signed by Roderick Williamson MD at 01/19/2013 2:03 PM PDT documented in this encounter Progress Notes Roderick Williamson MD - 01/19/2013 3:45 PM PDTFormatting of this note might be different from the o rj. Neurology Clinic Follow Up Note PCP: Jose Angel Reina MD Date of Encounter: 01/19/2013 Subjective: Nazario Aguilar Sr. is a pleasant 62 y.o. male who presents to the clinic today fo r follow up of tremors and gait abnormality. He had MRI of the brain, the images were reviewed. There is mild diffuse cerebral atrophy, otherwise not remarkable. He has no other complaints. Allergies Allergies Allergen Reactions Levaquin Varenicline Tartrate [...] BY MOUTH EVERY DAY 30 tablet 5 diazepam (VALIUM) 2 mg tablet Active Take 1 tablet by mouth 45 minutes prior to MRI. M ay repeat x 1 if claustrophobia persists. 2 tablet 0 fluticasone (FLONASE) 50 mcg/nasal spray Active 2 [...] 18 mcg into the lungs Zhen y. Family history, social history and past medical history were reviewed and updated as necess lan. Review of Systems In addition to HPI, a comprehensive ROS also revealed: Negative except noted in HPI Objective: BP 104/62 | Pulse 84 | Resp 18 | Ht 1.753 m (5' 9") | Wt 102.967 kg (227 lb) | BMI 33.52 kg /m2 | SpO2 95% EOMI. End gaze nystagmus. Muscle strength: full DTR 2+ except 1+ bilateral Achilles reflexes Plantar reflexes: Flexor Abnormal movement: Intention tremor in both hands. Sensory: Intact to light touch Coordination: FNF/HKS dysmetria and intentional tremor with the finger-nose testing Gait: Wide-based, cautious and small steps, able to do heel toe, ataxic on tandem gait. Assessment: 1. Ataxia 2. Intention tremors 3. Seizure disorder Plan: - MRI brain was unremarkable. The images were reviewed, there does appear to be mild diffus e cerebral atrophy. - Physical exam suggests cerebellar ataxia. The patient reports similar problems for his el kiera brother. His father used to be WC bound for more than 20 years for unclear reasons. - Plan for blood work including CBC, CMP, TSH, vitamin E, ceruloplasmin, and 24 hr urine co pper. - I would refer him to [facility] to see ataxia specialist for further evaluation. - Will also get MRI of the C-spine for evaluation of gait ataxia, his gait does appear to b e stiff that suggests increased tone. The patient also follows with Dr. Craig, since I will leave the practice soon, I have asked for Dr. Craig's help to follow the MRI of the C-spine. Thank you for allowing me to take care of this patient. Please do not hesitate to contact salomon romero if you have any questions. Cc: MD Karlos Mchugh MD documented in this encounte r Plan of Treatment + +------+--------+ + + | Name | Type | Priori | Associated Diagnoses | Order Schedule | | | | ty | | | + +------+--------+ + + | Copper, 24Hr, Urine | Lab | Routin | Cerebellar ataxia | 1 Occurrences | | | | e | ([facility]) | starting 01/19/2013 | | | | | | until 01/19/2014 | + +------+--------+ + + + + +--------+ + + | Name | Type | Priori | Associated Diagnoses | Order Schedule | | | | ty | | | + + +--------+ + + | Ambulatory referral | Outpatient | Routin | Cerebellar ataxia | 1 Occurrences | | to Neurology | Referral | e | (HCC) | starting 01/19/2013 | | | | | | until 01/19/2014 | + + +--------+ + + documented as of this encounter Results Ceruloplasmin (01/19/2013 3:38 PM PDT) + + + + + + | Component | Value | Ref Range | Performed | Pathologist | | | | | At | Signature | + + + + + + | CERULOPLASM | 34Comment: Testing | 7 - 220 mg/dL | [facility] | | | [place] | Performed: [facility], [address] | | | | [address], [place] | | MEDICAL | | | | [id number]: [id number] | | CENTER - | | | [...] + | [facility] | [address] | [place] | [phone] | | [facility] | | [address] | | | - LABORATORY | | | | + + + + + | [facility] | [address] | [place], [place] | | | [facility] | | [address] | | | - LABORATORY | | [...] | [facility] | | | | [address] | [...] + | [facility] | [address] | [place], [place] | [phone] | | [facility] | | [address] | | | - LABORATORY | | | | + + + + + | [facility] | [address] | [place] | | | [facility] | | [address] | | | - LABORATORY | | [...] | | | | | [address], | | | | | | [place] [address] | | | | | | CLIA: [id number] | | | | + + + + + + + + | Specimen | + + | Blood specimen | | (specimen) | + + + + + + + | Performing | Address | City/State/Zipcode | Phone Number | | Organization | | | | + + + + + | [facility] | [address] | [place] | [phone] | | [facility] | | [address] | | | - LABORATORY | | | | + + + + + | [facility] | [address] | [place] | | | [facility] | | [address] | | | - LABORATORY | | | | + + + + + Magnesium (01/19/2013 3:38 PM PDT) + +-------+ + + + | Component | Value | Ref Range | Performed | Pathologist | | | | | At | Signature | + +-------+ + + + | Magnesium | 1.9 | 1.8 - 2.5 mg/dL | [facility] | | | | [...] + | [facility] | [address] | [place] | [phone] | | [facility] | | [address] | | | - LABORATORY | | | | + + + + + | [facility] | [address] | [place] | | | [facility] | | [address] | | | - LABORATORY | | [...] | | | | | mg/dL | [facility] | | | | | | MEDICAL | | | | | | CENTER - | | | | | | LABORATORY | | + + + + + + | Alkaline | 99 | 40 - 110 IU/L | [facility] | | | Phosphatase | | | [facility] | | [...] | >60Comment: For | >60 mL/min/A | [facility] | | | GFR | -Americans, | [...] 8.3 (L) | 12 - 20 | [facility] | | | ine Ratio | | | [facility] | | | | | | MEDICAL | | | | | | CENTER - | | | | | | LABORATORY | | + + + + + + | Na | 140 | 136 - 149 mEq/L | [facility] | | | | | [...] + + | Performing | Address | City/[facility]/Zipcode | Phone Number | | Organization | | | | + + + + + | [facility] | [address] | [place], [place] | [phone] | | [facility] | | [address] | | | - LABORATORY | | | | + + + + + | [facility] | [address] | [place], [place] | | | [facility] | | [address] | | | - LABORATORY | | [...] + | [facility] | [address] | [place] | [phone] | | [facility] | | [address] | | | - LABORATORY | | | | + + + + + | [facility] | [address] | [place] | | | [facility] | | [address] | | | - LABORATORY | | | | + + + + + documented in this encounter Visit Diagnoses + + | Diagnosis | + + | Gait abnormality - Primary Abnormality of gait | + + | Cerebellar ataxia (HCC) Other cerebellar ataxia | + + | Intention tremor Essential and other specified forms of tremor | + + documented in this encounter
--- OUTSIDE RECORDS SUMMARY | ~2019-02-26 | XMS | Encounter Summary ---
Demographics + + + | Address | [address] | | | [place] [address] | + + + | Home Phone [...] + | Author | [facility] | | | and Vargasana | + + + | Organization | [facility] | | | and Vargasana | + + + | Address | Unknown | + + + | Phone | Unavailable | + + + Support + + + + + | Name | Relationship | Address | Phone | + + + + + | Palak Aguilar | ECON | [address] [place] | | | | | [address] | | + + + + + Care Team Providers + +------+ + | Care Vest Baster Name | Role | Phone | + [...] Frazier MD | | | | | [place], | | | | | | [place] [address] | | | | | | [phone] | | | +--------+--------+ + + + [...]
--- OUTSIDE RECORDS SUMMARY | ~2019-02-26 | XMS | Encounter Summary ---
Demographics + + + | Address | [address] | | | [place] [address] | + + + | Home Phone | | + + + | Preferred Language | Unknown | + + + | Marital Status | | + + + | Orthodoxy Affiliation | 1061 | + + + | Race | Unknown | + + + | Ethnic Group | Unknown | + + + Author + + + | Author | [facility] | | | and Vargasana | + + + | Organization | [facility] [...] [address] | | | | | [address] | | + + + + + Care Team Providers + +------+ + | Care Dry Cure Worker Name | Role | Phone | [...] Frazier MD | | | | | [place], | | | | | | [place] [address] | | | | | | [phone] | | | +--------+--------+ + + + [...]
--- OUTSIDE RECORDS SUMMARY | ~2019-02-26 | XMS | Encounter Summary ---
Demographics + + + | Address | [address] | | | [place] [address] | + + + | Home Phone [...] Author | [facility] | | | and Vargasana | + + + | Organization | [facility] | | | and Vargasana | + + + | Address | Unknown | + + + | Phone | Unavailable | + + + Support + + + + + | Name | Relationship | Address | Phone | + + + + + | Palak Aguilar | ECON | [id number] [place] | | | | | [address] | | + + + + + Care Team Providers + +------+ + | Care Station Manager Name | Role | Phone | + +------+ + PCP | Unavailable | + +------+ + Encounter Details +--------+ + + + + | Date | Type | Department | Care Team | Description | +--------+ + + + + | 01/11/ | Abstract | [facility] | Madeleine Connelly | | | 2011 | | [facility] | MD [address] | | | | | PATIENT PLACEMENT [address] | [address] | | | | | [address], | [place] [address] | | | | | [place] [address] | [phone] | | | | | [phone] | | | +--------+ + + + [...]
--- OUTSIDE RECORDS SUMMARY | ~2019-02-26 | XMS | Encounter Summary ---
Demographics + + + | Address | [address] | | | [place] [address] | + + + | Home Phone | | + + + | Preferred Language | Unknown | + + + | Marital Status | | + + + | Episcopal Affiliation | 1061 | + + + | Race | Unknown | + + + | Ethnic Group | Unknown | + + + Author + + + | Author | [facility] | | | and Vargasana | + + + | Organization | [facility] | | | and Vargasana | + + + | Address | Unknown | + + + | Phone | Unavailable | + + + Support + + + + + | Name | Relationship | Address | Phone | + + + + + | Palak Aguilar | ECON | [address] | | | | | [address] | | + + + + + Care Team Providers + +------+ + | Care Web Administrator Name | Role | Phone | + [...] Frazier MD | | | | | [place], | | | | | | [place] [address] | | | | | | [phone] | | | +--------+ + + + [...]
--- OUTSIDE RECORDS SUMMARY | ~2019-02-26 | XMS | Encounter Summary ---
Demographics + + + | Address | [address] | | | [place] [address] | + + + | Home Phone | | + + + | Preferred Language | Unknown | + + + | Marital Status | | + + + | Scientologist Affiliation | 1061 | + + + | Race | Unknown | + + + | Ethnic Group | Unknown | + + + Author + + + | Author | [facility] | | | and Vargasana | + + + | Organization | [facility] | | | and Vargasana | + + + | Address | Unknown | + + + | Phone | Unavailable | + + + Support + + + + + | Name | Relationship | Address | Phone | + + + + + | Palak Aguilar | ECON | [address] | | | | | [address] | | + + + + + Care Team Providers + +------+ + | Care Silk Screen Repairer Name | Role | Phone | + +------+ + | Jose Angel Reina MD | PCP | | + +------+ + Reason for Visit +--------+ + | Reason | Comments | +--------+ + | COPD | | +--------+ + Encounter Details +--------+---------+ + + + | Date | Type | Department | Care Team | Description | +--------+---------+ + + + | 06/15/ | Office | [facility] | [place], | COPD (chronic | | 2013 | Visit | PULMONARY [address] | Ling Frazier MD | obstructive | | | | [facility], | | pulmonary disease) | | | | [place] [address] | | (HCC) (Primary Dx); | | | | [phone] | | Periodic limb | | | | | | movement disorder; | | | | | | Nocturnal hypoxemia; | | | | | | Tobacco [...] Given: Yes | | Comments: currently smoking up to /2 [...] + + + | Blood Pressure | 142/64 | 06/15/2013 2:33 PM | | | | | PDT | | + + + + + | Pulse | 81 | 06/15/2013 2:33 PM | | | | | PDT | | + + + + + | Temperature | - | - | | + + + + + | Respiratory Rate | - | - | | + + + + + | Oxygen Saturation | 96% | 06/15/2013 2:33 PM | | | | | PDT | | + + + + + | Inhaled Oxygen | - | - | | | Concentration | | | | + + + + + | Weight | 103.6 kg (228 lb 4.8 | 06/15/2013 2:33 PM | | | | oz) | PDT | | + + + + + | Height | 175.3 cm (5' 9") | 06/15/2013 2:33 PM | | | | | PDT | | + + + + + | Body Mass Index | 33.71 | 06/15/2013 2:33 PM | | | | | PDT | | + + + + + documented in this encounter Patient Instructions Patient Instructions Ling Lowe MD - 06/15/2013 2:58 PM [id number] is a free service to help you [...] is available in both En glish and Czech with translation and TTY services. It is open 7 days a week. 24 hours a except the October, , and . I will send an order for your oxygen to [facility]. documented in this encounter Progress Notes Ling Lowe MD - 06/15/2013 2:49 PM PDTFormatting of this note might be differe nt from the original. Pulmonary Follow Up HPI Nazario Gipsonregan Fabian. is a 62 y.o. male patient of Jose Angel Reina here today f or follow up of COPD. At their last visit, we had continued him on Spiriva, Advair and Daliresp. Since their last visit he feels like he has been doing pretty good. He has not had any acute illnesses. He notes that his insurance is no longer christy with [facility], and so everything has to be returned and ordered elsewhere. He can go though [facility] or [facility]. He is currently on a regimen of Daliresp, Spiriva and Advair. Currently he is using his res cue inhaler, ProAir, 1 times a day. He is using his nebulizer, albuterol, 3 times a day. Grant romero returns today for routine follow up. Currently he is able to walk 1 block at his own pace on level ground. He is exercising regu larly. He has been doing physical therapy and walking in the yard. He does not cough chronically, and does not produce mucous.He has not had hemoptysis. He has been evaluated for nocturnal oxygen and does use it. He is currently on 3 LPM at [facility]. He reports good compliance. He is still smoking about 1/2 ppd. He did not follow through on calling the Quitline. His w elkin has cutback smoking. Past Medical History Past Medical History Diagnosis [...] Smoking status: Current Every Day Smoker -- 0.5 packs/day for 46 years [...] Chantix Medications: Outpatient Encounter Prescriptions as of 06/15/2013 Medication Sig Dispense Refill Acetaminophen (TYLENOL EXTRA STRENGTH PO) TABS. As needed albuterol (PROAIR HFA) 90 mcg/puff inhaler Inhale 2 puffs into the lungs every 6 hours as needed. [DISCONTINUED] albuterol (VENTOLIN HFA) 90 mcg/puff inhaler Inhale 2 puffs into the cadence gs every 6 hours as needed. albuterol 2.5 mg/3 mL nebulizer solution Take 3 mLs by nebulization every 6 hours as ne eded for Wheezing or Shortness of Breath. Dx: 496 RINA: 99 months [facility] [place] 360 vial 11 aspirin 325 mg tablet [...] fever, chills, sweats, and change in weight. Eyes: Denies vision change and eye irritation. ENT: Denies earache, decreased hearing, nasal congestion, nosebleeds, sore throat, and john rseness. Resp: See HPI. CV: Denies chest pain, palpitations, syncope, and peripheral edema. Seen at [facility] one night for chest pain 2-3 weeks ago, and had his heart checked out. GI: Denies heartburn, nausea, vomiting, and abdominal pain.. : Denies difficulty emptying bladder. Sleep: Limb movements improved on ropinirole. Objective BP 142/64 | Pulse 81 | Ht 1.753 m (5' 9") | Wt 103.556 kg (228 lb 4.8 oz) | BMI 33.70 kg/m2 | SpO2 96% RA General Appearance: Alert, [...] normal Data: Overnight oximetry was done on May 08, 2012 on room airand was reviewed and interpreted in clinic today. It shows he spent 2 hours 19 minutes with a saturation less than 88 %. Results for orders placed during the hospital [...] Assessment 1. COPD (chronic obstructive pulmonary disease) (HCC) - Stable. He seems to be doing well o n the Daliresp. He has not had weight loss on this. He is apparently using Duonebs still or again. I reordered the albuterol nebulizers through [facility], as he is switching home health companies. 2. Periodic limb movement disorder - Improved symptoms on ropinirole. We will continue. 3. Nocturnal hypoxemia (HCC) - On oxygen at night at 3L. Order written to change to [facility]. 4. Tobacco abuse- He did not follow through with contacting the Quitline, which I encourage d him to do. Plan 1.Stop Duonebs, start albuterol nebulizers. Order sent to [email or web address]. 2.Continue Advair, Spiriva and Daliresp. 3.Continue ropinirole. 4. He is encouraged to conbtact the Quitline for assistance with smoking. 5. Orders written for his oxygen to be transferred to [facility]. He was advised to call if new pulmonary symptoms were to develop. Return to clinic in 3 months, or sooner with concerns. CC: Jose Angel Reina Portions of this report were transcribed using voice recognition software. Every effort wa s made to ensure accuracy; however, inadvertent computerized quality supervisor errors may be pre sent. Electronically signed by: Ling Lowe MD 06/15/2013 14:49 documented in t his encounter Plan of Treatment + + +--------+ + + | Name | Type | Priori | Associated Diagnoses | Order Schedule | | | | ty | | | + + +--------+ + + | Oxygen Order | Respiratory | Routin | COPD (chronic | Expected: | | | Care | e | obstructive | 06/15/2013, Expires: | | | | | pulmonary disease) | 06/15/2014 | | | | | ([facility]) Nocturnal | | | | | | hypoxemia | | + + +--------+ + + documented as of this encounter Visit Diagnoses + + | Diagnosis | + + | COPD (chronic obstructive pulmonary disease) ([facility]) - Primary Chronic airway | | obstruction, not elsewhere classified | + + | Periodic limb movement disorder | + + | Nocturnal hypoxemia Hypoxemia | + + | Tobacco abuse Tobacco use disorder | + + documented in this encounter
--- OUTSIDE RECORDS SUMMARY | ~2019-02-26 | XMS | Encounter Summary ---
Demographics + + + | Address | [address] | | | [place] [address] | + + + | Home Phone | | + + + | Preferred Language | Unknown | + + + | Marital Status | | + + + | Evangelical Affiliation | 1061 | + + + | Race | Unknown | + + + | Ethnic Group | Unknown | + + + Author + + + | Author | [facility] | | | and Vargasana | + + + | Organization | [facility] | | | and Vargasana | + + + | Address | Unknown | + + + | Phone | Unavailable | + + + Support + + + + + | Name | Relationship | Address | Phone | + + + + + | Palak Aguilar | ECON | [address] | | | | | [address] | | + + + + + Care Team Providers + +------+ + | Care Airport Location Manager Name | Role | Phone | + +------+ + | Jose Angel Reina MD | PCP | | + +------+ + Reason for Visit + + + | Reason | Comments | + + + | Follow-up | post injection | + + + | Shoulder Pain | right | + + + Encounter Details +--------+---------+ + + + | Date | Type | Department | Care Team | Description | +--------+---------+ + + + | 12/20/ | Office | [facility] | Karlos Craig, | Right shoulder pain | | 2013 | Visit | PHYSIATRY [address] | [address] | (Primary Dx); | | | | [place], | [place] | Rotator cuff | | | | [place] [address] | [address] | tendonitis, right; | | | | [phone] | | Lumbalgia; Facet | | | | | | arthropathy, lumbar; | | | | | | Ataxia | +--------+---------+ + + + Social [...] + + + | Blood Pressure | 130/78 | 12/20/2013 11:36 AM | | | | | PDT | | + + + + + | Pulse | 84 | 12/20/2013 11:36 AM | | | | | PDT | | + + + + + | Temperature | - | - | | + + + + + | Respiratory Rate | 18 | 12/20/2013 11:36 AM | | | | | PDT | | + + + + + | Oxygen Saturation | - | - | | + + + + + | Inhaled Oxygen | - | - | | | Concentration | | | | + + + + + | Weight | 98.9 kg (218 lb) | 12/20/2013 11:36 AM | | | | | PDT | | + + + + + | Height | 175.3 cm (5' 9") | 12/20/2013 11:36 AM | | | | | PDT | | + + + + + | Body Mass Index | 32.19 | 12/20/2013 11:36 AM | | | | | PDT | | + + + + + documented in this encounter Patient Instructions Patient Instructions Karlos Craig MD - 12/20/2013 12:15 PM PDTReturn to the clinic in 3 months. If pain is worse and intolerable, return to the clinic earlier. If back pain returns we will likely consider repeating injections. If shoulder pain returns we will consider repeat shoulder injection. If shoulder pain gets worse we may consider MRI of the shoulder. Continue and complete physical therapy for the shoulder. Continue the exercises as outline d by physical therapy, indefinitely. documented in this encounter Progress Notes Karlos Craig MD - 12/20/2013 12:17 PM PDTThis office note has been dictated. Job ID# [id number] signed by Karlos Craig MD at 12/20/2013 12:24 PM Arleen Ashby RN - 12/20/2013 11:35 AM PDTPatient states intermittent pain to right shoulder, no pain a t this time. Patient states improvement to right shoulder since having injection. Electronic ally signed by Arleen Kern RN at 12/20/2013 12:24 PM Karlos Garcia MD - 4 12:00 AM PDT [facility] [address] [place] [address] FAX: [phone] OFFICE VISIT PHYSICAL MEDICINE REHABILITATION PROGRESS NOTE PRIMARY CARE PROVIDER: Jose Angel Reina MD DATE OF SERVICE: 12/20/2013 PATIENT IDENTIFICATION: A 63-year-old male with history of right shoulder pain, low back pa in and ataxia. HISTORY OF PRESENT ILLNESS: Mr. Aguilar was last seen by me 11/09/2013. At that time he had right shoulder subacromial steroid injection for right rotator cuff tendinitis. He partici pated in a course of physical therapy. He returns to the clinic today to review management of his right shoulder pain. He also had previous back pain. Previous back pain was improved with lumbar facet injections. He reports that lumbar back pain continues to be resolved at this time. Current back pain is a 0/10 on a numerical pain scale. In regard to right shoulder pain, current right shoulder pain is a 0/10 on a numerical pain scale. Right shoulder pain is intermittent. Right shoulder pain can increase to a 3 or 4/1 0 on a numerical pain scale with shoulder internal rotation and reaching behind him. He ind icates that pain is overall dramatically improved with physical therapy and shoulder steroi d injection. He indicates that some pain persists, it is not fully resolved. He indicates t hat current pain is tolerable. He indicates that he would not undergo surgery for current p ain. He has no advanced imaging of the shoulder. He elects not to have imaging of the shoul kiera at this time, since he does not believe that he would do more to treat the shoulder at this time. He will complete current course of physical therapy and continue with exercise p rogram indefinitely. He is advised that if shoulder pain returns in the future may consider repeat steroid injection versus advanced imaging versus both. He denies any numbness, paresthesia or weakness at this time. He continues to have ataxic movement. He denies any side effects to current medications. Shoulder pain is isolated withi n the right shoulder. He reports near normal range of motion of the shoulder with the excep tion of internal rotation and reaching behind his back. He still reports some pain with try ing to wipe after toileting. ALLERGIES 1. LEVAQUIN. 2. CHANTIX. CURRENT MEDICATIONS 1. Tylenol. 2. Albuterol. 3. Aspirin. 4. Lipitor. 5. Carbamazepine. 6. Vitamin B12. 7. Daliresp. 8. Flonase nasal spray. 9. Lisinopril. 10. Glucophage. 11. Oxygen. 12. Requip. 13. Senna with Docusate. 14. Spiriva inhaler. REVIEW OF SYSTEMS: Mr. Aguilar denies nausea, vomiting, diarrhea, constipation, fever, chil ls, shortness of breath, or chest pain. He denies skin breakdown or rash. All other review of systems negative. PHYSICAL EXAMINATION VITAL SIGNS: Heart rate 84, respiratory rate 18, blood pressure 130/78, weight 218 pounds, height 5 feet 9 inches. GENERAL: No acute distress. Alert and oriented to person, place, time and situation. HEENT : Extraocular muscles intact. Sclerae are clear. Voice is tremulous. Some wavering with voi ce during speech. NECK: Limited range of motion. Spurling's test negative bilaterally. Axial loading test ne gative. LUNGS: Increased respiratory sounds. Increased expiratory phase. ABDOMEN: Nontender. Posit brady for bowel sounds. BACK: Symmetric. Loss of normal lumbar lordosis. Lumbar facet loading test positive. Tender ness to palpation over lumbar facets bilaterally. Seated straight leg raise negative. EXTR EMITIES: Exam reveals no clubbing, cyanosis or edema. There is some easy bruising on the sk in in the forearms bilaterally. Right shoulder examination demonstrates increased shoulder pain with internal rotation, somewhat limited range of motion with right shoulder internal rotation. Empty cans test and full can test negative. Impingement sign positive. DATABASE: No new imaging or laboratory data available for review. IMPRESSION 1. RIGHT SHOULDER PAIN, ICD-9 719.41. 2. RIGHT ROTATOR CUFF TENDINITIS, ICD-9 726.10. 3. LUMBALGIA, ICD-9 724.2. 4. 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 5. ATAXIA, ICD-9 781.3. PLAN: Mr. Aguilar was advised that he should continue and complete current physical therapy . If shoulder pain returns in the future may consider right shoulder MRI to evaluate for th e underlying pathology of his current pain. If shoulder pain returns in the future may cons ider repeat right shoulder subacromial steroid injection. Back pain continues to be well controlled. If back pain returns in the future may consider treating his lumbar facet arthritis with repeat lumbar facet steroid injections. He will re turn to the clinic in 3 months' time to review management of his pain. He may return to the clinic earlier should pain worsen or exacerbate. Thank you for allowing me to be involved in the care of your patient. If you have any quest ions regarding the care of Mr. Aguilar please do not hesitate to call. Greater than 25 yumiko ellen was spent [id number] today with Mr. Aguilar, over half of which was spent formulating and discussing his medical treatment plan. Karlos Craig Jr, MD DELMAR / Kristine JOB #: [id number] cc: Peter Reina MD documented in this encounter Plan of Treatment Not on filedocumented as of this encounter Visit Diagnoses + + | Diagnosis | + + | Right shoulder pain - Primary Pain in joint, shoulder region | + + | Rotator cuff tendonitis, right | + + | Lumbalgia Lumbago | + + | Facet arthropathy, lumbar Lumbosacral spondylosis without myelopathy | + + | Ataxia Lack of coordination | + + documented in this encounter
--- OUTSIDE RECORDS SUMMARY | ~2019-02-26 | XMS | Encounter Summary ---
Demographics + + + | Address | [address] | | | [place] [address] | + + + | Home Phone [...] + | Author | [facility] | | | and Vargasana | + + + | Organization | [facility] | | | and Vargasana | + + + | Address | Unknown | + + + | Phone | Unavailable | + + + Support + + + + + | Name | Relationship | Address | Phone | + + + + + | Palak Aguilar | ECON | [address] | | | | | [address] | | + + + + + Care Team Providers + +------+ + | Care Sec Reporting Consultant Name | Role | Phone | + +------+ + PCP | Unavailable | + +------+ + Encounter Details +--------+ + + + + | Date | Type | Department | Care Team | Description | +--------+ + + + + | 07/19/ | [facility] | Chrissy, | | | 2011 | Encounter | [facility] | Ling Frazier MD | | | | | [address] | | | | | | [place] | | | | | | [address] | | | | | | [phone] | | | +--------+ + + + [...] + | [facility] | [address] | [place] | [phone] | | [facility] | | [address] | | | - LABORATORY | | | | + + + + + | [facility] | [address] | [place] | | | [facility] | | [address] | | | - LABORATORY | | [...] + | [facility] | [address] | [place], [place] | [phone] | | [facility] | | [address] | | | - LABORATORY | | | | + + + + + | [facility] | [address] | [place], [place] | | | [facility] | | [address] | | | - LABORATORY | | | | + + + + + documented in this encounter Visit Diagnoses Not on filedocumented in this encounter"
--- OUTSIDE RECORDS SUMMARY | ~2019-02-26 | XMS | Encounter Summary ---
Demographics + + + | Address | [address] | | | [place] [address] | + + + | Home Phone | | + + + | Preferred Language | Unknown | + + + | Marital Status | | + + + | Mormon Affiliation | 1061 | + + + | Race | Unknown | + + + | Ethnic Group | Unknown | + + + Author + + + | Author | [facility] | | | and Vargasana | + + + | Organization | [facility] [...] [address] | | | | | [address] | | + + + + + Care Team Providers + +------+ + | Care Garment Examiner Name | Role | Phone | + [...] + + | 05/23/ | Telephone | [facility] | Micah Del Cid | Other | | 2014 | | PHYSIATRY [address] | | | | | [place], | [place], [place] | | | | | [place] [address] | [address] | | | | | [phone] | | | +--------+ + + + [...]
--- OUTSIDE RECORDS SUMMARY | ~2019-02-26 | XMS | Encounter Summary ---
Demographics + + + | Address | [address] | | | [place] [address] | + + + | Home Phone | | + + + | Preferred Language | Unknown | + + + | Marital Status | | + + + | Sikh Affiliation | 1061 | + + + | Race | Unknown | + + + | Ethnic Group | Unknown | + + + Author + + + | Author | [facility] | | | and Vargasana | + + + | Organization | [facility] | | | and [place]argas[place] | + + + | Address | Unknown | + + + | Phone | Unavailable | + + + Support + + + + + | Name | Relationship | Address | Phone | + + + + + | Palak Aguilar | ECON | [address] | | | | | [address] | | + + + + + Care Team Providers + +------+ + | Care Fuel Attendant Name | Role | Phone | + +------+ + | Jose Angel Reina MD | PCP | | + +------+ + Encounter Details +--------+ + + + + | Date | Type | Department | Care Team | Description | +--------+ + + + + | 12/22/ | Documentati | [facility] [place] | Roderick Williamson MD [address] | | | 2013 | on | [facility]UR[facility] [place] | [address] | | | | | [address] [facility], | [address], | | | | | [address] [place] | [place] [address] | | | | | [place] [address] | [phone] | | | | | [phone] | | | +--------+ + + + [...] + documented as of this encounter Progress Leila Jara RN - 12/22/2012 8:21 AM PDTFaxed order for MRI to [facility] ATTN: Stephanie. d ocumented in this encounter Plan of Treatment Not on filedocumented as of this encounter Visit Diagnoses Not on filedocumented in this encounter"
--- OUTSIDE RECORDS SUMMARY | ~2019-02-26 | XMS | Encounter Summary ---
Demographics + + + | Address | [address] | | | [place] [address] | + + + | Home Phone [...] + | Author | [facility] | | | and Vargasana | + + + | Organization | [facility] | | | and Vargasana | + + + | Address | Unknown | + + + | Phone | Unavailable | + + + Support + + + + + | Name | Relationship | Address | Phone | + + + + + | Palak Aguilar | ECON | [address] | | | | | [address] | | + + + + + Care Team Providers + +------+ + | Care Wire Machine Cutter Name | Role | Phone | + [...] | RN | | | | | [place], | | | | | | [place] [address] | | | | | | [phone] | | | +--------+ + + + [...]
--- OUTSIDE RECORDS SUMMARY | ~2019-02-26 | XMS | Encounter Summary ---
Demographics + + + | Address | [address] | | | [place] [address] | + + + | Home Phone [...] + + | Author | [facility] | | | and Vargasana | + + + | Organization | [facility] | | | and Vargasana | + + + | Address | Unknown | + + + | Phone | Unavailable | + + + Support + + + + + | Name | Relationship | Address | Phone | + + + + + | Palak Aguilar | ECON | [id number] | | | | | [address] | | + + + + + Care Team Providers + +------+ + | Care Diagnostics Sales Developer Name | Role | Phone | + +------+ + PCP | Unavailable | + +------+ + Encounter Details +--------+ + + + + | Date | Type | Department | Care Team | Description | +--------+ + + + + | 02/24/ | [facility] | [facility] | Chrissy, | | | 2010 | Encounter | MED CTR GENERIC OP | Ling Frazier MD | | | | | CONV DEPT [address] | | | | | | [place], | | | | | | [place] [address] | | | | | | [phone] | | | +--------+ + + + [...]
--- OUTSIDE RECORDS SUMMARY | ~2019-02-26 | XMS | Encounter Summary ---
Demographics + + + | Address | [address] | | | [place] [address] | + + + | Home Phone | | + + + | Preferred Language | Unknown | + + + | Marital Status | | + + + | Latter Day Affiliation | 1061 | + + + | Race | Unknown | + + + | Ethnic Group | Unknown | + + + Author + + + | Author | [facility] | | | and Vargasana | + + + | Organization | [facility] | | | and Vargasana | + + + | Address | Unknown | + + + | Phone | Unavailable | + + + Support + + + + + | Name | Relationship | Address | Phone | + + + + + | Palak Aguilar | ECON | #[id number] | | | | | [address] | | + + + + + Care Team Providers + +------+ + | Care Language Asst Name | Role | Phone | + [...] Frazier MD | | | | | [place], | | | | | | [place] [address] | | | | | | [phone] | | | +--------+--------+ + + + [...]
--- OUTSIDE RECORDS SUMMARY | ~2019-02-26 | XMS | Encounter Summary ---
Demographics + + + | Address | [address] | | | [place] [address] | + + + | Home Phone [...] Author | [facility] | | | and Vargasana | + + + | Organization | [facility] | [...] #[place] | | | | | [address] | | + + + + + Care Team Providers + +------+ + | Care Chassis Inspector Name | Role | Phone | [...] | | | | History of | [address] | [address] | | | | | seizures | [place], | [place], | | | | | | [place] [address] | [place] [address] | | | | | | Phone: | Phone: | | | | | | [phone] | [phone] | | | | | | Fax: | Fax: | | | | | | [phone] | [phone] | +--------+ + + + + + Encounter Details +--------+---------+ + + + | Date | Type | Department | Care Team | Description | +--------+---------+ + + + | 12/19/ | Office | [facility] | Roderick Williamson MD [address] | Ataxia (Primary Dx); | | 2012 | Visit | [facility] | [address] | Claustrophobia; | | | | [address], | [address] [place], | Tremor; Seizure | | | | [address] [facility] | [place] [address] | disorder (HCC) | | | | [place] [address] | [phone] | | | | | [phone] | | | +--------+---------+ + + + [...] minutes. Patient reports history of EEG at [facility] that was reported to be normal. He [...]
--- OUTSIDE RECORDS SUMMARY | ~2019-02-26 | XMS | Encounter Summary ---
Demographics + + + | Address | [address] | | | [place] [address] | + + + | Home Phone [...] + | Author | [facility] | | | and Vargasana | + + + | Organization | [facility] | | | and Vargasana | + + + | Address | Unknown | + + + | Phone | Unavailable | + + + Support + + + + + | Name | Relationship | Address | Phone | + + + + + | Palak Aguilar | ECON | #[id number] | | | | | [address] | | + + + + + Care Team Providers + +------+ + | Care Legal Financial Specialist Name | Role | Phone | [...] | Encounter | MED CTR LABORATORY | [facility] | | | | [address] | [address], | | | | | [place] | [place] [address] | | | | | [address] | [phone] | | | | | [phone] | | | +--------+ + + + [...] + | [place] [facility] | [address] | [place] | [phone] | | [facility] | | [address] | | | - LABORATORY | | | | + + + + + | [facility] | [address] | [place] | | | [facility] | | [address] | | | - LABORATORY | | [...] | | | | [place] | | MEDICAL | | | | [address] CLIA: [id number] | | CENTER - | | | | | | LABORATORY | | + + + + + + + + | Specimen | + + | | + + + + + + + | Performing | Address | City/State/Zipcode | Phone Number | | Organization | | | | + + + + + | [facility] | [address] | [place] | [phone] | | [facility] | | [address] | | | - LABORATORY | | | | + + + + + | [place] [facility] | [address] | [place] | | | [facility] | | [address] | | | - LABORATORY | | [...] decisions. | | | | | | [facility] is authorized | | | | | [...] [place], | | | | | | [place] [address] | | | | | | CLIA: [id number] | | | | + + + + + + + + | Specimen | + + | | + + + + + + + | Performing | Address | City/State/Zipcode | Phone Number | | Organization | | | | + + + + + | [place] [facility] | [address] | [place] | [phone] | | [facility] | | [address] | | | - LABORATORY | | | | + + + + + | [place] [facility] | [address] | [place] | | | [facility] | | [address] | | | - LABORATORY | | [...] performed on the Josr | uIU/mL | [facility] | | | | [facility] | | MEDICAL | | | [...] [address] | [place] | [phone] | | [facility] | | [address] | | | - LABORATORY | | | | + + + + + | [place] [facility] | [address] | [place] | | | [facility] | | [address] | | | - LABORATORY | | [...] | 0.84 | 0.60 - 1.30 | [facility] | | | | | mg/dL | [facility] | | | | | | MEDICAL | | | | | | CENTER - | | | | | | LABORATORY | | + + + + + + | Estimated | >60Comment: For | >60 mL/min/A | [facility] | | | GFR | -Americans, | [...] + | [facility] | [address] | [place], [place] | [phone] | | [facility] | | [address] | | | - LABORATORY | | | | + + + + + | [facility] | [address] | [place], [place] | | | [facility] | | [address] | | | - LABORATORY | | [...] [address] | [place] | [phone] | | [facility] | | [address] | | | - LABORATORY | | | | + + + + + | [facility] | [address] | [place] | | | [facility] | | [address] | | | - LABORATORY | | [...] | | MEDICAL | | | | [id number]: [id number] | | CENTER - | | | [...] + | [place] [facility] | [address] | [place] | [phone] | | [facility] | | [address] | | | - LABORATORY | | | | + + + + + | [place] [facility] | [address] | [place] | | | [facility] | | [address] | | | - LABORATORY | | [...] | [facility] | | | | [facility] | | MEDICAL | | | [...] + | [place] [facility] | [address] | [place] | [phone] | | [facility] | | [address] | | | - LABORATORY | | | | + + + + + | [place] | [address] | [place] | | | [facility] | | [address] | | | - LABORATORY | | [...] | | | | | | [place] [address] | | | | | | CLIA: [id number] | | | | + + + [...] [address] | [place] | [phone] | | [facility] | | [address] | | | - LABORATORY | | | | + + + + + | [facility] | [address] | [place] | | | [facility] | | [address] | | | - LABORATORY | | [...] + | [place] [facility] | [address] | [place] | [phone] | | [facility] | | [address] | | | - LABORATORY | | | | + + + + + | [facility] | [address] | [place] | | | [facility] | | [address] | | | - LABORATORY | | [...] + | [place] [facility] | [address] | [place] | [phone] | | [facility] | | [address] | | | - LABORATORY | | | | + + + + + | [place] [facility] | [address] | [place] | | | [facility] | | [address] | | | - LABORATORY | | [...] [place] | | | | | | [facility] | | | | | | MEDICAL [...] [address] | [place] | [phone] | | [facility] | | [address] | | | - LABORATORY | | | | + + + + + | [facility] | [address] | [place] | | | [facility] | | [address] | | | - LABORATORY | | | | + + + + + documented in this encounter Visit Diagnoses + + | Diagnosis | + + | Cerebellar ataxia (HCC) Other cerebellar ataxia | + + documented in this encounter"
--- OUTSIDE RECORDS SUMMARY | ~2019-02-26 | XMS | Encounter Summary ---
Demographics + + + | Address | [address] | | | [place] [address] | + + + | Home Phone | | + + + | Preferred Language | Unknown | + + + | Marital Status | | + + + | Gnosticist Affiliation | 1061 | + + + | Race | Unknown | + + + | Ethnic Group | Unknown | + + + Author + + + | Author | [facility] | | | and Vargasana | + + + | Organization | [facility] | | | and Vargasana | + + + | Address | Unknown | + + + | Phone | Unavailable | + + + Support + + + + + | Name | Relationship | Address | Phone | + + + + + | Palak Aguilar | ECON | #[address] | | | | | [address] | | + + + + + Care Team Providers + +------+ + | Care Puff Iron Operator Name | Role | Phone | [...] | +--------+ + + + + | 05/26/ | Telephone | [facility] [place] | Claudia Michelle, | Results | | 2012 | | PULMONARY [address] | RN | | | | | [place], | | | | | | [place] [address] | | | | | | [phone] | | | +--------+ + + + [...]
--- OUTSIDE RECORDS SUMMARY | ~2019-02-26 | XMS | Encounter Summary ---
Demographics + + + | Address | [address] | | | [place] [address] | + + + | Home Phone | | + + + | Preferred Language | Unknown | + + + | Marital Status | Single | + + + | Anabaptist Affiliation | Unknown | + + + | Race | Unknown | + + + | Ethnic Group | Other Race | + + + Author + + + | Author | [facility] | + + + | Organization | [facility] | + + + | Address | Unknown | + + + | Phone | Unavailable | + + + Care Team Providers + +------+ + | Care Admeasurer Name | Role | Phone | + +------+ + PCP | Unavailable | + +------+ + Encounter Details +--------+ + + + + | Date | Type | Department | Care Team | Description | +--------+ + + + + | 05/02/ | Abstract | Neurology at | Clinic, Neurology | | | 2013 | | [facility] & | | | | | | Healing [address] | | | | | | [place] Mailcode: | | | | | | [facility] | | | | | | Health and Healing, | | | | | | Building | | | | | | Floor [place], [place] | | | | | | [address] | | | | | | [phone] | | | +--------+ + + + [...]
--- OUTSIDE RECORDS SUMMARY | ~2019-02-26 | XMS | Encounter Summary ---
Demographics + + + | Address | [address] | | | [place] [address] | + + + | Home Phone [...] + | Author | [facility] | | | and Vargasana | + + + | Organization | [facility] | | | and Vargasana | + + + | Address | Unknown | + + + | Phone | Unavailable | + + + Support + + + + + | Name | Relationship | Address | Phone | + + + + + | Palak Aguilar | ECON | #[address] | | | | | [address] | | + + + + + Care Team Providers + +------+ + | Care Braille Operator Name | Role | Phone | + +------+ + | Jose Angel Reina MD | PCP | | + +------+ + Encounter Details +--------+ + + + + | Date | Type | Department | Care Team | Description | +--------+ + + + + | 03/13/ | Orders Only | [facility] [place] | Claudia Michelle, | COPD (chronic | | 2013 | | PULMONARY [address] | RN | obstructive | | | | [place], | | pulmonary disease) | | | | [place] [address] | | ([facility]LY [facility]); Nocturnal | | | | [phone] | | hypoxemia | +--------+ + + [...]
--- OUTSIDE RECORDS SUMMARY | ~2019-02-26 | XMS | Encounter Summary ---
Demographics + + + | Address | [address] | | | [place] [address] | + + + | Home Phone [...] | Author | [facility] | | | and Vargasana | + + + | Organization | [facility] | | | and Vargasana | + + + | Address | Unknown | + + + | Phone | Unavailable | + + + Support + + + + + | Name | Relationship | Address | Phone | + + + + + | Palak Aguilar | ECON | #[address] | | | | | [address] | | + + + + + Care Team Providers + +------+ + | Care Manager Business Systems Name | Role | Phone | + [...] [place]ora | | | | | [phone] | [place] [address] | | +--------+ + + + + [...] XR CHEST 2 VIEWS | Routin | 04/21/2017 | | Results for this | | | e | 10:55 PM | | procedure are in the | | | | PST | | results section. | + +--------+ + + + documented in this encounter Results XR Chest 2 VW (04/21/2017 10:55 PM PST) + + | Specimen | [...]
--- OUTSIDE RECORDS SUMMARY | ~2019-02-26 | XMS | Encounter Summary ---
Demographics + + + | Address | [address] | | | [place] [address] | + + + | Home Phone [...] + | Author | [facility] | | | and Vargasana | + + + | Organization | [facility] | [...] #[place] | | | | | [address] | | + + + + + Care Team Providers + +------+ + | Care Technical Support Professional Name | Role | Phone | + +------+ + PCP | Unavailable | + +------+ + Encounter Details +--------+ + + + + | Date | Type | Department | Care Team | Description | +--------+ + + + + | / | [facility] | [facility] | Zoran Espinoza, | Vitreous membranes | | 1999 | Encounter | MEDICAL CENTER | [address] | | | | | OUTPATIENT | [place], [place] | | | | | PROCEDURES [address] | [address] | | | | | [place] | | | | | | [place] | | | | | | [address] | | | | | | [phone] | | | +--------+ + + + [...]
--- OUTSIDE RECORDS SUMMARY | ~2019-02-26 | XMS | Encounter Summary ---
Demographics + + + | Address | [address] | | | [place] [address] | + + + | Home Phone [...] | Author | [facility] | | | and Vargasana | + + + | Organization | [facility] | [...] #[place] | | | | | [address] | | + + + + + Care Team Providers + +------+ + | Care Java Engineer Name | Role | Phone | [...] Lisa GreenwoodLeonora | | | | | [phone] | [place] [address] | | +--------+ + + + + [...]
--- OUTSIDE RECORDS SUMMARY | ~2019-02-26 | XMS | Encounter Summary ---
Demographics + + + | Address | [address] | | | [place] [address] | + + + | Home Phone | | + + + | Preferred Language | Unknown | + + + | Marital Status | | + + + | Congregational Affiliation | 1061 | + + + | Race | Unknown | + + + | Ethnic Group | Unknown | + + + Author + + + | Author | [facility] | | | and Vargasana | + + + | Organization | [facility] | | | and Vargasana | + + + | Address | Unknown | + + + | Phone | Unavailable | + + + Support + + + + + | Name | Relationship | Address | Phone | + + + + + | Palak Daugherty | ECON | #[address] | | | | | [address] | | + + + + + Care Team Providers + +------+ + | Care Circuit Recorder Name | Role | Phone | + +------+ + | Jose Angel Reina MD | PCP | | + +------+ + Encounter Details +--------+ + + + + | Date | Type | Department | Care Team | Description | +--------+ + + + + | [facility] | Micah Del Cid | | | 2014 | Encounter | MED CTR XRAY [address] | T, [address] | | | | | [place] | [address] [place] | | | | | [place], [place] [address] | [address] | | | | | [phone] | | | +--------+ + + + [...] 99 | | | | | | ([facility], [facility]IN [facility]) | joy Araujo | | | | | | | [place] | | | | | + + [...] Performed At | + + + | [facility] | [place] | | Department [address] [place] [address] [place] | [facility] | | [ rep ct [address]] [ rep ct [facility] | | st zip] Signed | - IMAGING | | | | | Patient Name: KEVIN DAUGHERTY SR | | | Physician: BANDAR : 1950 Age: 62 Sex: M Unit | | | #: [id number] Exam Date: 04/20/13 Location: | | | [facility].INV Report #: [id number] Page: | | | %(RAD)RES..mtdd.print.filter("pg") of %(RAD) | | | RES..mtdd.print.filter("tpg") | | | | | | Accession Number: [id number] | | | PROCEDURE NOTE LUMBAR FACET [...] | | | Transcribed Date/Time: 04/20/2013 17:21 Manager Deli: | | | <<Signature on File>> | | | Micah Anderson | | | MD Nehemias04/20/13 8175 <Electronically signed by Micah Anderson | | | [place]> Micah Del Cid MD 04/20/13 4445 | | | Manager Deli: Julius Mahffixylfgsl30/16/14 7360 | | | | | + + + + + + + + | Performing | Address | City/State/Zipcode | Phone Number | | Organization | | | | + + + + + | [facility] | [address] | [place] | [phone] | | [facility] | | [address] | | | - IMAGING | | | | + + + + + documented in this encounter Visit Diagnoses Not on filedocumented in this encounter
--- OUTSIDE RECORDS SUMMARY | ~2019-02-26 | XMS | Encounter Summary ---
Demographics + + + | Address | [address] | | | [place] [address] | + + + | Home Phone [...] Author + + + | Author | [facility] | + + + | Organization | [facility] | + + + | Address | Unknown | + + + | Phone | Unavailable | + + + Care Team Providers + +------+ + | Care Color Developer Name | Role | Phone | + +------+ + PCP | Unavailable | + +------+ + Encounter Details +--------+ + + + + | Date | Type | Department | Care Team | Description | +--------+ + + + + | 02/11/ | Documentati | Neurology at | Markel Genao, | | | 2010 | on | [facility] & | MD [address] | | | | | Healing [address] | [place], [place] | | | | | [address] Mailcode: | [address] | | | | | [facility] | [phone] | | | | | Health and Healing, | | | | | | [facility] | | | | | | [place], [place] | | | | | | [address] | | | | | | [phone] | | | +--------+ + + + [...]
--- OUTSIDE RECORDS SUMMARY | ~2019-02-26 | XMS | Encounter Summary ---
Demographics + + + | Address | [address] | | | [place] [address] | + + + | Home Phone | | + + + | Preferred Language | Unknown | + + + | Marital Status | | + + + | Mormonism Affiliation | 1061 | + + + | Race | Unknown | + + + | Ethnic Group | Unknown | + + + Author + + + | Author | [facility] | | | and Vargasana | + + + | Organization | [facility] | | | and Vargasana | + + + | Address | Unknown | + + + | Phone | Unavailable | + + + Support + + + + + | Name | Relationship | Address | Phone | + + + + + | Palak Aguilar | ECON | #[place] | | | | | [address] | | + + + + + Care Team Providers + +------+ + | Care Project Controls Scheduler Name | Role | Phone | + [...] [place] | | | | | [place], | | | | | | [place] [address] | | | | | | [phone] | | | +--------+--------+ + + + [...]
--- OUTSIDE RECORDS SUMMARY | ~2019-02-26 | XMS | Encounter Summary ---
Demographics + + + | Address | [address] | | | [place] [address] | + + + | Home Phone [...] Author | [facility] | | | and Vargasana | + + + | Organization | [facility] | | | and Vargasana | + + + | Address | Unknown | + + + | Phone | Unavailable | + + + Support + + + + + | Name | Relationship | Address | Phone | + + + + + | Palak Aguilar | ECON | [address] | | | | | [address] | | + + + + + Care Team Providers + +------+ + | Care Buccaro Name | Role | Phone | + [...] + + | 07/08/ | Office | [facility] | Damaso Gavin | Hypoxia (Primary | | 2018 | Visit | PULMONARY [address] | [address] | Dx); Centrilobular | | | | [place], | [place] | emphysema (HCC); | | | | [place] [address] | [place] [address] | Tobacco dependence | | | | [phone] | [phone] | due to cigarettes; | | | [...]
--- OUTSIDE RECORDS SUMMARY | ~2019-02-26 | XMS | Encounter Summary ---
Demographics + + + | Address | [address] | | | [place] [address] | + + + | Home Phone [...] + | Author | [facility] | | | and Vargasana | + + + | Organization | [facility] | | | and Vargasana | + + + | Address | Unknown | + + + | Phone | Unavailable | + + + Support + + + + + | Name | Relationship | Address | Phone | + + + + + | Palak Aguilar | ECON | [address] | | | | | [address] | | + + + + + Care Team Providers + +------+ + | Care Facing Cutting Machine Operator Name | Role | Phone [...] Lisa GreenwoodLeonora | | | | | [phone] | [place] [address] | | +--------+ + + + + [...]
--- OUTSIDE RECORDS SUMMARY | ~2019-02-26 | XMS | Encounter Summary ---
Demographics + + + | Address | [address] | | | [place] [address] | + + + | Home Phone | | + + + | Preferred Language | Unknown | + + + | Marital Status | | + + + | Evangelical Affiliation | [id number] | + + + | Race | Unknown | + + + | Ethnic Group | Unknown | + + + Author + + + | Author | [facility] | | | and Vargasana | + + + | Organization | [facility] | | | and Vargasana | + + + | Address | Unknown | + + + | Phone | Unavailable | + + + Support + + + + + | Name | Relationship | Address | Phone | + + + + + | Palak Aguilar | ECON | [address] | | | | | [address] | | + + + + + Care Team Providers + +------+ + | Care Supervisor Core Drilling Name | Role | Phone | + [...] | | | | | | | [place] [id number] | | | | | | | Phone: | | | | | | | [phone] | | | | | | | Fax: | | | | | | | [phone] | | +--------+ + + + + [...] | | 2012 | Visit | [facility] | [address] | (Primary Dx); | | | | [address] [facility], | [address], | Cerebellar ataxia | | | | [address] [place] | [place] [address] | (FORMERLY [facility]); Intention | | | | [place] [address] | [phone] | tremor | | | | [phone] | | | +--------+---------+ + + + [...] to be seen by ataxia specialist at [facility]. If you have any questions please let [...] pper. - I would refer him to [facility] to see ataxia specialist for further evaluation. [...] Occurrences | | | | e | (FORMERLY [facility]) | starting 01/19/2013 | | | | [...] | | MEDICAL | | | | [id number]: [id number] | | CENTER - | | | [...] + | [facility] | [address] | [place] | [phone] | | [facility] | | [address] | | | - LABORATORY | | | | + + + + + | [facility] | [address] | [place], [place] | | | [facility] | | [address] | | | - LABORATORY | | [...] + | [facility] | [address] | [place], [place] | [phone] | | [facility] | | [address] | | | - LABORATORY | | | | + + + + + | [facility] | [address] | [place] | | | [facility] | | [address] | | | - LABORATORY | | [...] | | | | | [place] [address] | | | | | | CLIA: [id number] | | | | + + + + + + + + | Specimen | + + | Blood specimen | | (specimen) | + + + + + + + | Performing | Address | City/State/Zipcode | Phone Number | | Organization | | | | + + + + + | [facility] | [address] | [place] | [phone] | | [facility] | | [address] | | | - LABORATORY | | | | + + + + + | [facility] | [address] | [place] | | | [facility] | | [address] | | | - LABORATORY | | [...] + | [facility] | [address] | [place] | [phone] | | [facility] | | [address] | | | - LABORATORY | | | | + + + + + | [facility] | [address] | [place] | | | [facility] | | [address] | | | - LABORATORY | | [...] + + | Performing | Address | City/[facility]/Zipcode | Phone Number | | Organization | | | | + + + + + | [facility] | [address] | [place], [place] | [phone] | | [facility] | | [address] | | | - LABORATORY | | | | + + + + + | [facility] | [address] | [place], [place] | | | [facility] | | [address] | | | - LABORATORY | | [...] + | [facility] | [address] | [place] | [phone] | | [facility] | | [address] | | | - LABORATORY | | | | + + + + + | [facility] | [address] | [place] | | | [facility] | | [address] | | | - LABORATORY | | [...]
--- OUTSIDE RECORDS SUMMARY | ~2019-02-26 | XMS | Encounter Summary ---
Demographics + + + | Address | [address] | | | [place] [address] | + + + | Home Phone [...] | [facility] | | | and Vargasana | + + + | Organization | [facility] | | | and Vargasana | + + + | Address | Unknown | + + + | Phone | Unavailable | + + + Support + + + + + | Name | Relationship | Address | Phone | + + + + + | Palak Aguilar | ECON | [address] | | | | | [address] | | + + + + + Care Team Providers + +------+ + | Care Body Joiner Name | Role | Phone | + [...] | | | | History of | [address] | [address] | | | | | seizures | [place], | [place], | | | | | | [place] [address] | [place] [address] | | | | | | Phone: | Phone: | | | | | | [phone] | [phone] | | | | | | Fax: | Fax: | | | | | | [phone] | [phone] | +--------+ + + + + + Evaluate & Treat [...] | | | Services | Therapy | Unsteady | Karlos Gatica MD | | | | Required | | gait | [address] | | | | | | Lumbalgia | [address] | | | | | | Tremor | [place], | | | | | | History of | [place] [address] | | | | | | seizures | Phone: | | | | | | | [phone] | | | | | | | Fax: | | | | | | | [phone] | | +--------+ + + + + + Reason for Visit + + + | Reason | Comments | + + + | Weakness | bilateral legs | + + + | Leg Pain | only when walking 5/10 | + + + Rehabilitation (Routine) +--------+ + + + + + | Status | Reason | Specialty | Diagnoses / | Referred By | Referred To | | | | | Procedures | Contact | Contact | +--------+ + + + + + | Closed | Specialty | Physical | Diagnoses | | Karlos Craig | | | Services | Medicine and | Leg | Campbellenstein, | E A, MD [place] | | | Required | Rehabilitatio | weakness | Ling B, | [address] | | | | n | | [address] | [place], | | | | | | [address] | [place] [address] | | | | | | [place], | Phone: | | | | | | [place] [address] | [phone] | | | | | | | Fax: | | | | | | | [phone] | +--------+ + + + + + Encounter Details +--------+---------+ + + + | Date | Type | Department | Care Team | Description | +--------+---------+ + + + | 12/08/ | Office | [facility] [place] [facility] | Karlos Craig, | Unsteady gait | | 2012 | Visit | MEDICINE | [address] | (Primary Dx); | | | | REHABILIT[address] | [place], [place] | Lumbalgia; Tremor; | | | | [address] [place] | [address] | History of seizures; | | | | [place] [address] | | COPD (chronic | | | | [phone] | | obstructive | | | | | | pulmonary disease) | | | | | | ([facility]); Tobacco | | | | | | dependence | +--------+---------+ + + + Social History [...] + + + | Blood Pressure | 140/90 | 12/08/2012 3:10 PM | | | | | PDT | | + + + + + | Pulse | 70 | 12/08/2012 3:10 PM | | | | | PDT | | + + + + + | Temperature | - | - | | + + + + + | Respiratory Rate | 18 | 12/08/2012 3:10 PM | | | | | PDT | | + + + + + | Oxygen Saturation | - | - | | + + + + + | Inhaled Oxygen | - | - | | | Concentration | | | | + + + + + | Weight | 106.6 kg (235 lb) | 12/08/2012 3:10 PM | | | | | PDT | | + + + + + | Height | 175.3 cm (5' 9") | 12/08/2012 3:10 PM | | | | | PDT | | + + + + + | Body Mass Index | 34.7 | 12/08/2012 3:10 PM | | | | | PDT | | + + + + + documented in this encounter Patient Instructions Patient Instructions Karlos Craig MD - 12/08/2012 3:55 PM PDTMy office will obtain copy chief ies of your back x-rays for review. Physical therapy has been prescribed. Please participate in physical therapy. If you have not be contacted for an appointment with physical therapy within one week, please contact [facility]. Once you have completed physical therapy please continue the home exercise progr am as outline by physical therapy, indefinitely. A neurology consult has been requested with Roderick Williamson to look into your unsteady walking and your tremor. Return to the clinic in 6 weeks to review management of your back pain.Electronically christy d by Karlos Craig MD at 12/08/2012 4:04 PM PDT documented in this encounter Progress Notes Karlos Craig MD - 12/08/2012 4:05 PM PDTThis office note has been dictated. Job ID# [id number] signed by Karlos Craig MD at 12/08/2012 4:18 PM Arleen Ashby RN - 12/08/2012 3:17 PM PDTPatient complains of bilateral lower extremity weakness, stat es he has experienced it for at least 5 years, states weakness has worsened. States pain whi le walking, no pain while sitting. Electronically signed by Arleen Kern RN at 3 4:18 PM Karlos Garcia MD - 12/08/2012 12:00 AM PDT [facility] [address] [place] [address] FAX: [phone] OFFICE VISIT PHYSICAL MEDICINE REHABILITATION CONSULT CONSULT REQUESTED BY: Ling Lowe MD DATE OF SERVICE: 12/08/2012 PRIMARY CARE PROVIDER: Jose Angel Reina MD PATIENT IDENTIFICATION: A 62-year-old male with report of back pain and unsteady gait. Hist ory of emphysema and seizures. HISTORY OF PRESENT ILLNESS: Mr. Aguilar indicates that he has had some back pain on and off for 10 or more years. He states that his back pain has been worse over the last 2 years. H e indicates that his back pain is dull in quality. He indicates that his current pain level is a 0/10 on a numerical pain scale while sitting. He states that with standing and walkin g, his pain is a 5 or 6/10 on a numerical pain scale. He indicates that his pain is intermi ttent and occurs only with standing and walking, but not with sitting or lying down. He ind icates that he has had numerous near falls. He has to hold the cart not to fall over. He in dicates that he takes very small steps when he walks to prevent from losing his balance. He denies being dizzy or having vertigo. He denies syncope or presyncope. He indicates that h is legs just feel unsteady. He indicates that his pain is located over the central low back . He indicates that he does not have any radiation of pain from the back into the legs. He indicates that on rare occasion he will experience some paresthesia in the legs, mostly ove r the anterior thighs. He indicates that this occurs bilaterally. He indicates that the par esthesia is equal in the right compared to the left leg. He indicates that he has a feeling of weakness in the legs. He describes his weakness as fatigue. He denies footdrop or foot slap. He notes that he is shaky, unstable. He feels like he shuffles and might fall. He fee ls like his feet cannot keep up with him. He indicates that he has not tried medications sp ecifically for his back pain. He has not had physical therapy for his back. He has never bullock d back surgery or interventional injections. He has not had acupuncture or chiropractic tiffany atments. ALLERGIES 1. LEVAQUIN. 2. CHANTIX. CURRENT MEDICATIONS 1. He takes Tylenol p.r.n.. 2. Albuterol 2 puffs every 6 hours. 3. DuoNeb nebulizer every 4 hours as needed for shortness of breath. 4. Aspirin 325 mg a d ay. 5. Lipitor 40 mg 2 tablets nightly. 6. Carbamazepine 200 mg 4 times daily. 7. Vitamin B12 1000 mg daily. 8. He uses Daliresp 500 mcg 1 tablet by mouth every day. 9. Flonase nasal spray. 10. Advair Diskus inhaler. 11. Lisinopril 10 mg daily. 12. Glucophage 500 mg 2 times daily. 13. He uses oxygen 3 liters at night. 14. He takes Requip 1 mg at bedtime. 15. He uses Spiriva inhaled 18 mcg into the lungs daily. PAST MEDICAL HISTORY 1. He has history of tobacco dependence. 2. He a history of chronic obstructive pulmonary disease. 3,. He has history of diabetes for multiple years. 4,. He reports history of hypertension. 5. Seizures. 6. He reports history of seasonal allergies. 7. Hypercholesterolemia. 8. Restless leg syndrome. PAST SURGICAL HISTORY 1. He has had tonsillectomy. 2. He has had cholecystectomy. 3. He had a surgery on his left eye. 4. He had a hernia repair. FAMILY MEDICAL HISTORY: He indicates that his mother recently . She was over age 100. He reports that heart disease, seizures, alcoholism, diabetes, cancer, arthritis, hig h blood pressure, stroke and emphysema run in his family. He indicates that his brother has a severe tremor like he has. SOCIAL MEDICAL HISTORY: Mr. Aguilar has been on disability for over 15 years secondary to seizures primarily. He smokes half a pack of cigarettes per day. He denies consumption of a lcohol. He denies history of alcohol abuse in his past. He denies use of illicit drugs. REVIEW OF SYSTEMS Mr. Aguilar denies fever, chills, weight gain or weight loss, dizziness, nosebleeds, tooth aches. He denies heart palpitations. He reports sometimes having chest pain, sometimes havi ng shortness of breath. He reports that sometimes he has stomach pain. He denies nausea, vo miting, diarrhea or constipation. He denies incontinence of bowel or bladder. He reports di scoordination, frequent near falls. He denies saddle anesthesia. All other review of systems negative. PHYSICAL EXAMINATION VITAL SIGNS: Heart rate 70, respiratory rate 18, blood pressure 140/90, weight 235 pounds, height 5 foot 9 inches Accompanied by . GENERAL: In no acute distress. Speech mildly dysarthric but easily understood. Alert and o riented to person, place, time and situation. Part of his exam included reviewing his paper work. He indicated that he filled out his paperwork himself. The writing on his paperwork i s legible but in reviewing the writing, it is very evident that he has a significant tremor while writing. HEENT: Extraocular muscles intact. Sclerae clear. Pupils equal, reactive to light and acco mmodation. NECK: Normal range of motion. Spurling's test negative. Axial loading test negative. HEART : Regular rate and rhythm. No murmurs, no gallops. LUNGS: Increased expiratory phase. No wheezing, no crackles. ABDOMEN: Nontender, positive for bowel sounds, obese. BACK: Diffuse tenderness to palpation over the lumbar paraspinal muscles and lumbar bony sp ine. Seated straight leg raise negative. Harley's test negative. EXTREMITIES: Exam reveal s no clubbing, cyanosis or edema. NEUROLOGICAL: Exam demonstrates intact memory, concentrat ion and speech. Speech, once again, mildly dysarthric, may be a tremor or tumultuousness t o his voice. He demonstrated significant intention tremor and ataxia with [id number] te sting in both upper extremities. He demonstrated significant discoordination in an effort t o try [id number] slide bilaterally. His gait demonstrated short, shuffling steps. He did not have any falls or near falls. Romberg test was negative. Sensory is intact to light indio ch and pinprick in all 4 extremities. He did not have any hyperreflexia. Biceps and triceps reflexes could not be elicited. Patellar reflexes were 2+ bilaterally. Achilles reflexes a re 1+ bilaterally. There was no clonus to either ankle. Babinski is downgoing bilaterally. Proprioception was intact in both lower extremities with toe-up toe-down testing. Vibrator y sense was intact at both ankles with the tuning fork. Strength was normal in upper and lo wer extremities. There is 5/5 biceps, triceps, wrist dorsiflexion, hand research software engineer strength and f sammie abduction strength. In the lower extremities, there is 5/5 hip flexion, knee flexion, knee extension, ankle dorsiflexion, ankle plantar flexion and extensor hallucis longus str ength. DATABASE: Lumbar x-rays were completed today at [facility]. These x-rays are not available for my review, but have been requested. IMPRESSION 1. UNSTEADY GAIT, ICD-9 781.2. 2. LUMBALGIA, ICD-9 724.2. 3. TREMOR, ICD-9 781.0. 4. HISTORY OF SEIZURES, ICD-9 V12.49. 5. EMPHYSEMA, ICD-9 496. 7. TOBACCO DEPENDENCE, ICD-9 305.1. PLAN: Mr. Aguilar's major gait issues and instability seem to be related to ataxia and trem or. The exact etiology of this is unknown. I suspect either familial tremor or Parkinson di sease. I have asked that Mr. Aguilar be evaluated by neurologist, Dr. Roderick Williamson. I have asked her to evaluate the etiology of his symptoms and discuss any treatment options if availabl e. She also ascertain whether or not his seizure history or current medications may contrib nory to his symptoms. He reports some back pain. His x-rays have been requested for review. Back pain that comes on primarily by standing and is relieved by sitting down may be related to spinal stenosis. There may be instability in the back. I may request more x-rays with flexion and extension views in the future. Once again, he already had x-rays earlier today at another facility. I have requested these for review. May consider further imaging in the future. I have asked physical therapy to see and evaluate him, work on reducing back pain by weight loss, core stabilization. I have asked them to assess him for an assistive walking device, most likely a front-wheel walker with built-in chair. Because of the question of Parkinson disease, I have asked them to try a trial of a laser light guided walker which may help co ordinate his movements. This may also not be appropriate for him, so I would like them to e valuate how he responds to one before he purchases this type of walker. [facility] 6 weeks' time at which time I will review his response to physical therapy and will review his lumbar x-rays, will see what Dr. Williamson has to say about this unsteady gait a nd tremor. In the future, I will further evaluate and discuss management of his back pain. Once again, my suspicion is highest for spinal stenosis followed by facet arthropathy or sp ondylolisthesis. Greater than an hour was spent [id number] today with Mr. Aguilar, over half of which was spent formulating and discussing his medical treatment plan. Thank you for allowing me to be involved in the care of your patient. If you have any quest ions regarding the care of Mr. Aguilar, please do not hesitate to call. Karlos Craig Jr, MD GEM / PAP JOB #: [id number] cc: MD Peter Hatfield MD documented in this encounter Plan of Treatment + + +--------+ + + | Name | Type | Priori | Associated Diagnoses | Order Schedule | | | | ty | | | + + +--------+ + + | Ambulatory referral | Outpatient | Routin | Unsteady gait | 1 Occurrences | | to Physical Therapy | Referral | e | Lumbalgia Tremor | starting 12/08/2012 | | | | | History of seizures | until 12/08/2013 | + + +--------+ + + | Ambulatory referral | Outpatient | Routin | Unsteady gait | 1 Occurrences | | to Neurology | Referral | e | Tremor History of | starting 12/08/2012 | | | | | seizures | until 12/08/2013 | + + +--------+ + + documented as of this encounter Visit Diagnoses + + | Diagnosis | + + | Unsteady gait - Primary Abnormality of gait | + + | Lumbalgia Lumbago | + + | Tremor Abnormal involuntary movements | + + | History of seizures Personal history of other disorders of nervous system and sense | | organs | + + | COPD (chronic obstructive pulmonary disease) (HCC) Chronic airway obstruction, not | | elsewhere classified | + + | Tobacco dependence Tobacco use disorder | + + documented in this encounter
--- OUTSIDE RECORDS SUMMARY | ~2019-02-26 | XMS | Encounter Summary ---
Demographics + + + | Address | [address] | | | [place] [address] | + + + | Home Phone | | + + + | Preferred Language | Unknown | + + + | Marital Status | | + + + | Jainism Affiliation | [id number] | + + + | Race | Unknown | + + + | Ethnic Group | Unknown | + + + Author + + + | Author | [facility] | | | and Vargasana | + + + | Organization | [facility] | | | and Vargasana | + + + | Address | Unknown | + + + | Phone | Unavailable | + + + Support + + + + + | Name | Relationship | Address | Phone | + + + + + | Palak Aguilar | ECON | [address] | | | | | [address] | | + + + + + Care Team Providers + +------+ + | Care Bonderizer Name | Role | Phone | + +------+ + | Jose Angel Reina MD | PCP | | + +------+ + Reason for Visit +--------+ + | Reason | Comments | +--------+ + | COPD | | +--------+ + Encounter Details +--------+---------+ + + + | Date | Type | Department | Care Team | Description | +--------+---------+ + + + | 03/16/ | Office | [facility] | [place], | COPD (chronic | | 2012 | Visit | PULMONARY [address] | Ling Frazier MD | obstructive | | | | [place], | | pulmonary disease) | | | | [place] [address] | | (HCC) (Primary Dx); | | | | [phone] | | Tobacco abuse; | | | | | | Hypoxemia; | | | | | | STACEY-inhibitor cough; | | | | | | Need for influenza | | | | | | [...] | | Comments: currently smoking up to 04/06 [...] + + + | Blood Pressure | 126/78 | 03/16/2013 2:30 PM | | | | | PST | | + + + + + | Pulse | 101 | 03/16/2013 2:30 PM | | | | | PST | | + + + + + | Temperature | - | - | | + + + + + | Respiratory Rate | - | - | | + + + + + | Oxygen Saturation | 95% | 03/16/2013 2:30 PM | | | | | PST | | + + + + + | Inhaled Oxygen | - | - | | | Concentration | | | | + + + + + | Weight | 102.1 kg (225 lb) | 03/16/2013 2:30 PM | | | | | PST | | + + + + + | Height | 175.3 cm (5' 9") | 03/16/2013 2:30 PM | | | | | PST | | + + + + + | Body Mass Index | 33.23 | 03/16/2013 2:30 PM | | | | | PST | | + + + + + documented in this encounter Patient Instructions Patient Instructions Ling Lowe MD - 03/16/2013 2:51 PM PST Stop the albuterol/ipratropium nebulizers and start albuterol nebulizers every 6 hours as n eeded. I will mention stopping the lisinopril and changing to a different blood pressure medicatio n to see if this helps the cough. How To Quit Smoking Smoking is one of the hardest habits to break. About half of all those who have ever smoked have been able to quit, and most of those (about 70%) who still smoke want to quit. Here ar e some of the best ways to stop smoking. Keep Trying: It takes most smokers about 8 tries before they are finally able to fully quit. So, the mor e often you try and fail, the better your chance of quitting the next time! So, don't give u p! Go Cold [place]: Most ex-smokers quit cold turkey. Trying to cut back gradually doesn't seem to work as well , perhaps because it continues the smoking habit. Also, it is possible to fool yourself by i nhaling more while smoking fewer cigarettes. This results in the same amount of nicotine in your body! Get Support: Support programs can make an important difference, especially for the heavy smoker. These g roups offer lectures, methods to change your behavior and peer support. Call the [facility] Quitline for more information. 671-RYOA-UCM (344-987-6759). Low-cost or free programs are offered by many hospitals, local chapters of the [place] [employer] (436-128-6958) a nd the [place] [employer] (755-058-5907). Support at home is important too. Non-smokers can help by offering praise and encouragement. If the smoker fails to quit, encourage them to try again! Tlur-Vbn-Fqizbrx Medicines: For those who can't quit on their own, Nicotine Replacement Therapy (NRT) may make quitting much easier. Certain aids such as the nicotine patch, gum and lozenge are available without a prescription. However, it is best to use these under the guidance of your doctor. The ski n patch provides a steady supply of nicotine to the body. Nicotine gum and lozenge gives tem porary bursts of low levels of nicotine. Both methods take the edge off the craving for ciga rettes. WARNING: If you feel symptoms of nicotine overdose, such as nausea, vomiting, dizzin ess, weakness, or fast heartbeat, stop using these and see your doctor. Health Benefits Of Quitting: The benefits of quitting start right away and keep improving the longer you go without smok in minutes: blood pressure and pulse return to normal 8 hours: oxygen levels return to normal 2 days: ability to smell and taste begins to improve as damaged nerves start to regrow 2-3 weeks: circulation and lung function improves 1-9 months: decreased cough, congestion and shortness of breath; less tired 1 year: risk of heart attack decreases by half 5 years: risk of lung cancer decreases by half; risk of stroke becomes the same as a non -smoker For information about how to quit smoking, visit the following links: National Cancer [place] , Clearing the Air, Quit Smoking Today - an online mejias klet. http://www.smokefree.gov/pubs/clearing_the_air.pdf Smokefree.gov http://smokefree.gov/ QuitNet http://www.quitnet.com/ 4467-2509 [facility]Ge[facility], [address] [place] [address], [place] [address]. All rights reserve d. This information is not intended as a substitute for professional medical care. Always fo llow your healthcare professional's instructions. documented in this encounter Progress Notes Ling Lowe MD - 03/16/2013 2:39 PM PSTFormatting of this note might be differe nt from the original. Pulmonary Follow Up Note Ling Lowe MD [facility] [place], [address] HPI Nazario Aguilar Sr. is a 62 y.o. male patient of Jose Angel Reina here today for foll ow up of COPD. At their last visit, we had continued his Advair, Spiriva and Daliresp. Since their last vi sit he feels like he has been doing pretty well. He notes that he was at [facility] [employer] [facility] for one night with vomiting, which was though related to food poisoning. He is currently on a regimen of Spiriva daily, Advair twice daily and Daliresp daily. He ta kes the Spiriva at bedtime. He has not been using his Ventolin much. He is using his nebuli zer, albuterol/ipratropium, 3 times a day. He returns today for routine follow up. Currently He is able to walk possibly up to a couple of blocks with his rollator at his own pace on level ground. He is not exercising regularly. He was doing physical therapy for a w hile, but he completed this. He does cough chronically, and does not produce mucous. He notes that he tends to cough mos tly at night. He has not had hemoptysis. He denies any heartburn or reflux. He has not had a ny congestion or runny nose. He describes a tickling in his throat at times. He is of note, on lisinopril. This was resumed a few months ago. He has been evaluated for nocturnal oxygen and does use it. He is currently on 3 LPM at [facility]. He reports good compliance. Past Medical History Past Medical History Diagnosis Date COPD (chronic obstructive pulmonary disease) Diabetes mellitus HTN (hypertension) Seizure disorder Restless legs syndrome Seasonal allergies Dyslipidemia PLMD (periodic limb movement disorder) Asthma Hyperlipidemia Emphysema of lung Hernia, hiatal Kidney stone Seizures Past Surgical History Past Surgical History Procedure [...] Chantix Medications: Outpatient Encounter Prescriptions as of 03/16/2013 Medication Sig Dispense Refill Acetaminophen (TYLENOL EXTRA STRENGTH PO) TABS. As needed albuterol (VENTOLIN HFA) 90 mcg/puff inhaler Inhale 2 puffs into the lungs every 6 hour s as needed. albuterol-ipratropium (DUONEB) 2.5-0.5 mg/3 mL SOLN Use in nebulizer every 4 hours as n eeded for shortness of breath aspirin 325 mg tablet Take 325 mg [...] tablet 5 diazepam (VALIUM) 2 mg tablet Take 1 tablet by mouth 45 minutes prior to MRI. May repe at x 1 if claustrophobia persists. 2 tablet 0 fluticasone (FLONASE) 50 mcg/nasal spray 2 sprays in each nostril daily fluticasone-salmeterol (ADVAIR DISKUS) 500-50 mcg/puff diskus inhaler 1 puff inhaled tw ice daily lisinopril (PRINIVIL, ZESTRIL) 10 mg tablet Take 10 mg by mouth Daily. metFORMIN (GLUCOPHAGE) 500 mg tablet Take 500 mg by mouth 2 times daily. oxygen Inhale 3 L into the lungs nightly. rOPINIRole (REQUIP) 1 mg tablet Take 1 tablet by mouth nightly. 30 tablet 11 SPIRIVA HANDIHALER 18 MCG inhalation capsule INHALE ONE CAPSULE EVERY DAY 30 capsule 10 Review of Systems Constitutional: Denies fever, chills, sweats, and change in weight. Eyes: Denies vision change and eye irritation. ENT: Denies earache, decreased hearing, nosebleeds, sore throat, and hoarseness. Resp: See HPI. CV: Denies chest pain, palpitations, syncope, and peripheral edema. GI: Denies nausea, vomiting, and abdominal pain. He had recent gastroenteritis, resolved. : He occasionally has difficulty urinating. Objective BP 126/78 | Pulse 101 | Ht 1.753 m (5' 9") | Wt 102.059 kg (225 lb) | BMI 33.23 kg/m2 | SpO 2 95% RA General Appearance: Alert, cooperative, no [...] cyanosis, clubbing, or edema Pulses: Radial pulses 1-2+ and symmetric Skin: Warm and dry Lymph nodes: Cervical and supraclavicular nodes normal Data: Immunization History Administered Date(s) Administered INFLUENZA, >= 4YO W/PRESERVATIVE IM 01/18/2011 INFLUENZA, PRESERVATIVE FREE IM 01/19/2012 Pneumococcal (Adult) 01/18/2010 Tdap 01/19/2012 Assessment 1. COPD (chronic obstructive pulmonary disease) - Overall stable. I suspect his cough may b e related to STACEY-I use. 2. Tobacco abuse - We discussed quitting again today he cannot use either Wellbutrin or Kendra ntix. I suggested using nicotine replacement products. I referred him to the Quitline for fu rther discussion and formulation of a plan for quitting but discussed martinez elements for quitt ing such as setting a quit date, getting rid of smoking related objects and having a back up plan. 3. Hypoxemia - On nocturnal O2 at 3L. 4. STACEY-inhibitor cough - I suspect his recent cough, based on description is related to his lisinopril. I would suggest replacing this with an ARB. Will forward to Dr. Reina. 5. Need for influenza vaccination - Given today. Plan 1.Would recommend substituting lisinopril with an ARB as new itchy throat cough correlates with starting lisinopril. 2.Continue Advair, Spiriva, Daliresp. 3.Continue nocturnal oxygen. 4.Smoking cessation encouraged and referred to Quitline. 5. Influenza vaccine was given today. He was advised to call if new pulmonary symptoms were to develop. Return to clinic in 3 months, or sooner with concerns. CC: Jose Angel Reina Portions of this report were transcribed using voice recognition software. Every effort wa s made to ensure accuracy; however, inadvertent computerized atm manager errors may be pre sent. documented in t his encounter Plan of Treatment Not on filedocumented as of this encounter Visit Diagnoses + + | Diagnosis | + + | COPD (chronic obstructive pulmonary disease) (HCC) - Primary Chronic airway | | obstruction, not elsewhere classified | + + | Tobacco abuse Tobacco use disorder | + + | Hypoxemia | + + | STACEY-inhibitor cough Cough | + + | Need for influenza vaccination Need for prophylactic vaccination and inoculation | | against influenza | + + documented in this encounter
--- OUTSIDE RECORDS SUMMARY | ~2019-02-26 | XMS | Encounter Summary ---
Demographics + + + | Address | [address] | | | [place] [address] | + + + | Home Phone | | + + + | Preferred Language | Unknown | + + + | Marital Status | | + + + | Pentecostalism Affiliation | 1061 | + + + | Race | Unknown | + + + | Ethnic Group | Unknown | + + + Author + + + | Author | [facility] | | | and Vargasana | + + + | Organization | [facility] | [...] [address] | | | | | [address] | | + + + + + Care Team Providers + +------+ + | Care Renal Dietitian Name | Role | Phone | + +------+ + | Jose Angel Reina MD | PCP | | + +------+ + Encounter Details +--------+ + + + + | Date | Type | Department | Care Team | Description | +--------+ + + + + | 10/08/ | Orders Only | [facility] [place] | Claudia Michelle, | Chronic airway | | 2015 | | PULMONARY [address] | RN | obstruction, not | | | | [place], | | elsewhere classified | | | | [place] [address] | | ([facility]) | | | | [phone] | | | +--------+ + + + [...] | Diagnosis | + + | Chronic airway obstruction, not elsewhere classified | + + documented in this encounter"
--- OUTSIDE RECORDS SUMMARY | ~2019-02-26 | XMS | Encounter Summary ---
Demographics + + + | Address | [address] | | | [place] [address] | + + + | Home Phone [...] + | Author | [facility] | | | and Vargasana | + + + | Organization | [facility] | | | and Vargasana | + + + | Address | Unknown | + + + | Phone | Unavailable | + + + Support + + + + + | Name | Relationship | Address | Phone | + + + + + | Palak Aguilar | ECON | [address] | | | | | [address] | | + + + + + Care Team Providers + +------+ + | Care Tube And Manifold Builder Name | Role | Phone | + [...] Description | +--------+--------+ + + + | 09/28/ | Refill | [facility] [place] | [place], | Medication Refill | | 2016 | | PULMONARY [address] | Ling rFazier MD | | | | | [place], | | | | | | [place] [address] | | | | | | [phone] | | | +--------+--------+ + + + [...]
--- OUTSIDE RECORDS SUMMARY | ~2019-02-26 | XMS | Encounter Summary ---
Demographics + + + | Address | [address] | | | [place] [address] | + + + | Home Phone [...] [facility] | | | and Vargasana | + + + | Organization | [facility] | | | and Vargasana | + + + | Address | Unknown | + + + | Phone | Unavailable | + + + Support + + + + + | Name | Relationship | Address | Phone | + + + + + | Palak Aguilar | ECON | [address] | | | | | [address] | | + + + + + Care Team Providers + +------+ + | Care Supervisor [employer] Name | Role | Phone | + [...] | Specialty | Physical | Diagnoses | Craig, | | | | Services | Therapy | Rotator | Karlos Gatica MD | | | | Required | | cuff | [address] | | | | | | tendonitis, | [address] | | | | | | right Right | [place], | | | | | | shoulder | [place] [address] | | | | | | pain | Phone: | | | | | | | [phone] | | | | | | | Fax: | | | | | | | [phone] | | +--------+ + + + + [...] | shoulder | [address] | | | | n | pain | [address] | [place], | | | | | Rotator cuff | [place], | [place] [address] | | | | | tendonitis, | [place] [address] | Phone: | | | | | right | Phone: | [phone] | | | | | | [phone] | Fax: | | | | | | Fax: | [phone] | | | | | | [phone] | | +--------+ + + + + + Encounter Details +--------+ + + + + | Date | Type | Department | Care Team | Description | +--------+ + + + + | 11/09/ | Procedure | [facility] [place] | Karlos Craig, | Rotator cuff | | 2013 | visit | PHYSIATRY [address] | MD [address] | tendonitis, right | | | | [place] [place], | [place], [place] | (Primary Dx); Right | | | | [place] [address] | [address] | shoulder pain | | | | [phone] | | | +--------+ + + + [...] physical therapy within one week, please contact t clinic. Once you have completed physical therapy [...] i n this encounter Plan of Treatment + + [...] | | | ) | | ONCE, [facility] 11/09/13 at 1600, For 1 | | | | | | | dose, Not for IV use., | | | | | | + + + +-------+------+ + +---+---+ | | | +---+---+ documented in this encounter
--- OUTSIDE RECORDS SUMMARY | ~2019-02-26 | XMS | Encounter Summary ---
Demographics + + + | Address | [address] | | | [place] [address] | + + + | Home Phone [...] Author | [facility] | | | and Vargasana | + + + | Organization | [facility] | | | and Vargasana | + + + | Address | Unknown | + + + | Phone | Unavailable | + + + Support + + + + + | Name | Relationship | Address | Phone | + + + + + | Palak Aguilar | ECON | [address] | | | | | [address] | | + + + + + Care Team Providers + +------+ + | Care Data Warehouse Analyst Name | Role | Phone | [...] | shoulder | [address] | | | | n | pain | [address] | [place], | | | | | Rotator cuff | [place], | [place] [address] | | | | | tendonitis, | [place] [address] | Phone: | | | | | right | Phone: | [phone] | | | | | | [phone] | Fax: | | | | | | Fax: | [phone] | | | | | | [phone] | | +--------+ + + + + + Reason for Visit + + + | Reason | Comments | + + + | Back Pain | lower | + + + | Shoulder Pain | right shoulder | + + + Encounter Details +--------+---------+ + + + | Date | Type | Department | Care Team | Description | +--------+---------+ + + + | 10/11/ | Office | [facility] | Karlos Craig, | Right shoulder pain | | 2013 | Visit | PHYSIATRY [address] | (Primary Dx); | | | | [address] [place], | [place], [place] | Rotator cuff | | | | [place] [address] | [address] | tendonitis, right; | | | | [phone] | | Lumbalgia; Lumbar | | | | | | facet arthropathy; | | | | | | Ataxia; Tobacco | | | | | | [...] + + + | Blood Pressure | 110/60 | 10/11/2013 11:08 AM | | | | | PDT | | + + + + + | Pulse | 80 | 10/11/2013 11:08 AM | | | | | PDT | | + + + + + | Temperature | - | - | | + + + + + | Respiratory Rate | 18 | 10/11/2013 11:08 AM | | | | | PDT | | + + + + + | Oxygen Saturation | - | - | | + + + + + | Inhaled Oxygen | - | - | | | Concentration | | | | + + + + + | Weight | 99.3 kg (219 lb) | 10/11/2013 11:08 AM | | | | | PDT | | + + + + + | Height | 175.3 cm (5' 9") | 10/11/2013 11:08 AM | | | | | PDT | | + + + + + | Body Mass Index | 32.34 | 10/11/2013 11:08 AM | | | | | PDT | | + + + + + documented in this encounter Patient Instructions Patient Instructions Karlos Craig MD - 10/11/2013 11:31 AM PDTReturn to the clinic for right shoulder steroid injection. If shoulder pain persists in the future we may consider shoulder MRI. If you need an MRI w e can give you something to help with the claustrophobia. If back pain returns in the future we may consider repeating facet steroid injections. We will request copies of the notes from your neurologist at [facility]. We will review them wit h you at your next visit. Continue working toward stopping smoking.Electronically signed by Karlos Craig MD at 12/2013 11:33 AM PDT documented in this encounter Progress Notes Karlos Craig MD - 10/11/2013 11:34 AM PDTThis office note has been dictated. Job ID# [id number] signed by Karlos Craig MD at 10/11/2013 12:06 PM PDTAlesha Flores RN - 10/11/2013 11:10 AM PDTBack and right shoulder pain is doing better. Evaluated at [facility] for ataxia but at the moment they requested expensive testing that the pt couldn't afford, p atient will be following up with them in 1 year. Not doing PT at this moment, but doing fitz ening and home exercises Karlos Craig MD - 10/11/2013 12:00 AM PDT [facility] [address] [place] [id number] FAX: [phone] OFFICE VISIT CONSULT REQUESTED BY: Jose Angel Reina MD DATE OF SERVICE: 10/11/2013 PATIENT IDENTIFICATION: A 63-year-old male with history of low back pain, right shoulder pa in and ataxia. HISTORY OF PRESENT ILLNESS: Mr. Aguilar was last seen by me 07/06/2013. At that time back p ain was well controlled. Back pain continues to be well controlled. Previous lumbar facet s teroid injections 04/2013 offered him pain relief and continue to offer pain relief now. He is not requesting further treatment for his back pain as current back pain is tolerable. Primary pain is right shoulder pain. Pain in right shoulder is 0/10 at rest. Pain is inter mittent. Pain increases to a 10/10 in the right shoulder with shoulder internal rotation. H e indicates that if he tries to reach back and wipe after using the bathroom with his right arm, he has severe shoulder pain which is intolerable. Pain is sharp. Pain radiates down th e upper arm, not past the elbow. Denies numbness, paresthesia in right arm at this time. He reports some weakness with shoulder movement. Increased pain with shoulder abduction. Cros sed arm abduction he reports is not bothersome. He notes significantly better range of nav on with left shoulder compared to his right. He denies any specific recent injury to right shoulder. He indicates that he was seen at [facility] Neurology Department for his ataxia. He indicates yair t they recommended laboratory testing that was expensive. He indicates that it was not orde red at that time because of concerns over cost. Mr. Aguilar indicates that he has had a jaimee nge in insurance. He is wondering whether or not the laboratory tests would be covered at t his time. He is interested in having them ordered if possible. Record of which laboratory t ests were recommended is not available at this time. Neurology notes from [facility] have not yet been received. They were requested today for our review. He discusses that he is still smoking. He indicates that he would like to stop. He indicate s THAT HE IS ALLERGIC TO CHANTIX. He has failed other methods of trying to quit. He wonders about acupuncture. He truly does have desire to quit, but does not feel like he has the wy ans or ability to do so. He was encouraged to contact the 7-784-SA-BUTTS smoking cessation program. ALLERGIES 1. LEVAQUIN. 2. CHANTIX. CURRENT MEDICATIONS 1. Tylenol. 2. Albuterol. 3. Aspirin. 4. Lipitor. 5. Carbamazepine. 6. Vitamin B12. 7. Daliresp 500 mg daily. 8. Flonase nasal spray. 9. Advair Diskus. 10. Lisinopril. 11. Metformin. 12. Requip 1 mg at bedtime. 13. Senna S. 14. Spiriva inhaler. REVIEW OF SYSTEMS Mr. Aguilar denies nausea, vomiting, fever, chills, shortness of breath, chest pain, skin breakdown, rash at this time. He does have a history of shortness of breath in the recent pa st. He indicates that current medication seems to be managing symptoms well. All other revi ew of systems negative. PHYSICAL EXAMINATION VITAL SIGNS: Heart rate 80, respiratory rate 18, blood pressure 110/60, weight 219 pounds, height 5 feet 9 inches. GENERAL: No acute distress. Pleasant, accompanied by . Tremulous ataxic voice. NECK: L imited range of motion. Tenderness to palpation diffusely over cervical paraspinal muscles. Spurling test negative. HEART: Regular rate and rhythm. No murmurs. ABDOMEN: Nontender. Positive for bowel sounds. Mild obesity. BACK: Slight asymmetry. Lumba r facet loading test positive. Seated straight leg raise negative. RIGHT SHOULDER: Examinat ion demonstrates Apley scratch test positive. Crossed arm abduction test negative. Speed's and Yergason's tests negative. Full cans test negative, empty cans test positive. Reproduct ion of shoulder pain with internal rotation against resistance. No pain with external rotat ion. Left shoulder exam is negative with negative Apley scratch test, crossed arm abduction test, Speed's and Yergason's tests. Empty and full cans test negative in left shoulder. DATABASE: No new imaging or laboratory data available for review at this time. IMPRESSION 1. RIGHT SHOULDER PAIN, ICD-9 719.41. 2. RIGHT ROTATOR TEAR CUFF TENDINITIS, ICD-9 726.10. 3. LUMBALGIA, ICD-9 724.2. 4. 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 5. ATAXIA ICD-9 781.3. 6. TOBACCO DEPENDENCE, ICD-9 305.1. PLAN: Mr. Aguilar has right shoulder pain. I suspect a supinatus tendinitis. He will have r ight shoulder subacromial steroid injection for rotator cuff tendinitis. He will participat e in home exercise program. In regard to low back pain, it is currently well managed. If ba ck pain returns in the future, likely will consider repeating lumbar facet steroid injectio ns. In regard to his ataxia, notes from [facility] have been requeste d for review to see which recommended laboratory tests were indicated. May consider orderin g these for Mr. Aguilar to see if his insurance will cover them at this time. He is encoura ged to quit smoking. We discussed that if shoulder pain persists despite steroid injection, may consider formal course of physical therapy as well as right shoulder MR arthrogram to evaluate for rotator cuff tear. Greater than 30 minutes was spent [id number] today with Mr. Aguilar, over half of which w as spent formulating and discussing his medical treatment plan. Thank you for allowing me to be involved in the care of your patient. If you have any quest ions regarding the care of Mr. Aguilar, please do not hesitate to call. Karlos Craig Jr, MD TROY / JOB #: [id number] cc: Peter Reina MD documented in this encounter Plan of Treatment + + +--------+ + + | Name | Type | Priori | Associated Diagnoses | Order Schedule | | | | ty | | | + + +--------+ + + | Ambulatory referral | Outpatient | Routin | Right shoulder | Ordered: 10/11/2013 | | to Physical Medicine | Referral [...] | Lumbalgia Lumbago | + + | Lumbar facet arthropathy Lumbosacral spondylosis without myelopathy | + + | Ataxia Lack of coordination | + + | Tobacco dependence Tobacco use disorder | + + documented in this encounter
--- OUTSIDE RECORDS SUMMARY | ~2019-02-26 | XMS | Encounter Summary ---
Demographics + + + | Address | [address] | | | [place] [address] | + + + | Home Phone [...] Providers + +------+ + | Care Credit Office Manager Name | Role | Phone | + +------+ + PCP | Unavailable | + +------+ + Encounter Details +--------+ + + + + | Date | Type | Department | Care Team | Description | +--------+ + + + + | 03/09/ | Abstract | Neurology at | Clinic, Neurology | | | 2012 | | [facility] & | | | | | | [facility] [address] | | | | | | [address] Mailcode: | | | | | | [facility] | | | | | | Health and Healing, | | | | | | Building | | | | | | Floor [place], [place] | | | | | | [address] | | | | | | [phone] | | | +--------+ + + + [...]
--- OUTSIDE RECORDS SUMMARY | ~2019-02-26 | XMS | Encounter Summary ---
Demographics + + + | Address | [address] | | | [place] [address] | + + + | Home Phone | | + + + | Preferred Language | Unknown | + + + | Marital Status | | + + + | Buddhist Affiliation | 1061 | + + + | Race | Unknown | + + + | Ethnic Group | Unknown | + + + Author + + + | Author | [facility] | | | and Vargasana | + + + | Organization | [facility] | | | and Vargasana | + + + | Address | Unknown | + + + | Phone | Unavailable | + + + Support + + + + + | Name | Relationship | Address | Phone | + + + + + | Palak Aguilar | ECON | [address] | | | | | [address] | | + + + + + Care Team Providers + +------+ + | Care Assembler Wet Wash Name | Role | Phone | + [...] Lisa GreenwoodLeonora | | | | | [phone] | [place] [address] | | +--------+ + + + + [...]
--- OUTSIDE RECORDS SUMMARY | ~2019-02-26 | XMS | Encounter Summary ---
Demographics + + + | Address | [address] | | | [place] [address] | + + + | Home Phone [...] Author | [facility] | | | and Vargasana | + + + | Organization | [facility] | | | and Vargasana | + + + | Address | Unknown | + + + | Phone | Unavailable | + + + Support + + + + + | Name | Relationship | Address | Phone | + + + + + | Palak Aguilar | ECON | [address] | | | | | [address] | | + + + + + Care Team Providers + +------+ + | Care Pest Control Applicator Name | Role | Phone | + [...] Lisa GreenwoodLeonora | | | | | [phone] | [place] [address] | | +--------+ + + + + [...]
--- OUTSIDE RECORDS SUMMARY | ~2019-02-26 | XMS | Encounter Summary ---
Demographics + + + | Address | [address] | | | [place] [address] | + + + | Home Phone | | + + + | Preferred Language | Unknown | + + + | Marital Status | | + + + | Shinto Affiliation | 1061 | + + + | Race | Unknown | + + + | Ethnic Group | Unknown | + + + Author + + + | Author | [facility] | | | and Vargasana | + + + | Organization | [facility] | | | and Vargasana | + + + | Address | Unknown | + + + | Phone | Unavailable | + + + Support + + + + + | Name | Relationship | Address | Phone | + + + + + | Palak Aguilar | ECON | [address] | | | | | [address] | | + + + + + Care Team Providers + +------+ + | Care Rn Cardiac Rehab Name | Role | Phone | + +------+ + | Jose Angel Reina MD | PCP | | + +------+ + Reason for Visit +--------+ + | Reason | Comments | +--------+ + | COPD | | +--------+ + Encounter Details +--------+---------+ + + + | Date | Type | Department | Care Team | Description | +--------+---------+ + + + | 05/24/ | Office | [facility] [place] | [place], | COPD exacerbation | | 2012 | Visit | PULMONARY [address] | Ling Frazier MD | ([facility]) (Primary Dx); | | | | [place], | | Tobacco abuse; | | | | [place] [address] | | Nocturnal hypoxemia; | | | | [phone] | | Restless legs | | | | | | syndrome | +--------+---------+ + + + Social History [...] + + + | Blood Pressure | 150/80 | 05/24/2012 1:23 PM | | | | | PST | | + + + + + | Pulse | 91 | 05/24/2012 1:23 PM | | | | | PST | | + + + + + | Temperature | - | - | | + + + + + | Respiratory Rate | 16 | 05/24/2012 1:23 PM | | | | | PST | | + + + + + | Oxygen Saturation | 96% | 05/24/2012 1:23 PM | | | | | PST | | + + + + + | Inhaled Oxygen | - | - | | | Concentration | | | | + + + + + | Weight | 103.3 kg (227 lb | 05/24/2012 1:23 PM | | | | 11.2 oz) | PST | | + + + + + | Height | - | - | | + + + + + | Body Mass Index | 33.63 | 01/19/2012 12:56 PM | | | | | PDT | | + + + + + documented in this encounter Patient Instructions Patient Instructions Ling Lowe MD - 05/24/2012 1:56 PM PST Tips for Quitting Smoking (Cardiovascular) Quitting smoking is a gift to yourself, one of the best things you can do to keep your hear t disease from getting worse. Smoking reduces oxygen flow to your heart, speeds the buildup of plaque, and increases your risk for heart attack. Quitting helps reduce smoking's harmful effects.You may have tried to quit before, but don t give up. Try again. Many smokers t ry four or five times before they succeed. You ll have the best chance of success if you join a stop-smoking group and have the supp ort of family and friends. Line Up Help Ask for the support of your family and friends. Join a quit-smoking class Ask your doctor about nicotine replacement products and prescription medications that ca n help you quit. Set a Quit Date Choose a date within the next 2 4 weeks. After picking a day, tanesha it in bold letters on a calendar. Set Limits Limit where you can smoke. Pick one room or a porch, and smoke only in that place. Make smoking outdoors a house rule. Other smokers won t tempt you as much. Hang a list of quit benefits in the spot where you smoke. Put one on the refrige rator and one on your car dashboard. [id number] Rudy Min, [address] [place] [address], [place] [address]. All rights reserve d. This information is not intended as a substitute for professional medical care. Always fo llow your healthcare professional's instructions. We will get results of overnight oxygen study. Increase the dose of the ropinirole. New prescription sent. Take prednisone and doxycycline and let me know if you are not better. documented in this encounter Progress Notes Ling Lowe MD - 05/24/2012 1:42 PM PSTFormatting of this note might be differe nt from the original. Pulmonary Follow Up Note HPI Nazario Aguilar is a 61 y.o. male patient of Jose Angel Reina here today for follow u p of COPD. At their last visit, we had continued him on maximal medical therapy. Dr. Reina stopped his oxygen during the daytime. He did an overnight oximetry on RA, but he has not heard the results of this. Since their last visit he feels like he has been doing well. He notes he did start coughing about a week ago. He notes that his had a stomach flu. He notes that it is only occasionally productive of clear phlegm. He has possibly had some more shortness of breath with this. He has not had any fevers with this. He is currently on a regimen of Spiriva, Adavir and Daliresp. He does feel like this medication regimen is working for them . They return today for routine follow up. Currently they are using their rescue inhaler, Ve ntolin, 0 times a day. He had run out and just got it refilled. He is using their nebulizer , Duonebs, 4 times a day. Currently they are able to walk 100 yards if he pushes a grocery cart at their own pace on level ground. He is not exercising regularly. He is not enrolled in cardiac/pulmonary rehabi litation or other physical therapy. They have not completed pulmonary rehabilitation in the past. He does not cough chronically, and does not produce mucous. He has only been coughing the l ast week to week and a half. He has been evaluated for nocturnal oxygen and does use it. They are currently on 2 LPM at night. He reports good compliance. He used the Nicotrol inhaler previously, and he reports that it went well. He did not quit smoking, but he did cut back on smoking. He tried Chantix as well, and he had issues with pa ssing out. He notes that his mom and then his dog . Past Medical History Past Medical History Diagnosis Date COPD (chronic obstructive pulmonary disease) Diabetes mellitus HTN (hypertension) Seizure disorder Restless legs syndrome periodic movements of sleep Seasonal allergies Dyslipidemia Past Surgical History Past Surgical History Procedure [...] in home. Allergies: Allergies Allergen Reactions Levaquin Medications: Outpatient Encounter Prescriptions as of 05/24/2012 Medication Sig Dispense Refill atorvaSTATin (LIPITOR) 40 mg tablet Take 40 mg by mouth nightly. tiotropium (SPIRIVA) 18 mcg inhalation capsule Inhale 18 mcg into the lungs Daily. roflumilast (DALIRESP) 500 mcg tablet Take 1 tablet by mouth Daily. 30 tablet 3 rOPINIRole (REQUIP) 0.25 mg tablet TAKE TWO TABLETS BY MOUTH AT BEDTIME 60 tablet 3 albuterol (VENTOLIN HFA) 90 mcg/puff inhaler Inhale 2 puffs into the lungs every 6 hour s as needed. aspirin 325 mg tablet Take 325 mg by mouth Daily. Cyanocobalamin (B-12) 1000 MCG CAPS Take 1,000 [...] as n eeded for shortness of breath fluticasone-salmeterol (ADVAIR DISKUS) 500-50 mcg/puff diskus inhaler 1 puff inhaled tw ice daily Acetaminophen (TYLENOL EXTRA STRENGTH PO) TABS. As needed DISCONTD: nicotine (NICOTROL) 10 mg inhaler Inhale up to 16 cartridges a day as needed for nictotine cravings. DISCONTD: ezetimibe-simvastatin (VYTORIN) 10-80 MG per tablet Take 10-80 mg by mouth Da meena. Review of Systems Constitutional: Denies fever, chills, sweats. His weight has been stable. Sleep: Denies difficulty sleeping and daytime sleepiness. His notes that he snores a lot. He has had a previous sleep study. His leg movements are better but he still moves them some. Eyes: Occasional blurry vision, he has an upcoming eye appointment. ENT: Denies earache, decreased hearing, nasal congestion, nosebleeds, sore throat, and john rseness. Resp: See HPI. CV: Denies chest pain, palpitations, syncope, and peripheral edema. He did have some chest pains, he does not remember when. He thinks it was gas. GI: Denies nausea, vomiting, and abdominal pain. : Denies difficulty emptying bladder and nocturia. Objective BP 150/80 | Pulse 91 | Resp 16 | Wt 103.284 kg (227 lb 11.2 oz) | SpO2 96%RA General Appearance: Alert, cooperative, no distress, appears older than stated age, they s rex strongly of cigarette smoke Head: Normocephalic, without obvious abnormality, atraumatic Eyes: PERRL, conjunctiva clear, no scleral icterus, EOM's intact Ears: Normal TM's, external auditory canals, and acuity Nose: Nares normal, septum midline, mucosa normal, no drainage Mouth: No oral lesions or exudate, somewhat dry mucous membranes Neck: Supple, symmetrical, no adenopathy Lungs: No [...] 01/19/2012 Pneumococcal (Adult) 01/18/2010 Tdap 01/19/2012 Assessment /Plan Mr. Aguilar was seen today for follow up of chronic obstructive pulmonary disease. Diagnoses and associated orders for this visit: Copd exacerbation He seems to be having a COPD exacerbation (albeit mild). We will treat today with prednison e and doxycycline. He is on maximum management. I did suggest that quitting smoking qould he lp his exacerbations the most. Spiriva was refilled. - tiotropium (SPIRIVA) 18 mcg inhalation capsule; Inhale 18 mcg into the lungs Daily. - predniSONE (DELTASONE) 20 mg tablet; Take 1 tablet orally for 5 days then 1/2 tablet for 5 days - doxycycline (VIBRAMYCIN) 100 MG capsule; Take 1 capsule by mouth 2 times daily for 10 day s. Tobacco abuse He had the best success with the Nictotrol inhaler previously, but he used it in a fairly h aphazard way. I reviewed setting a quit date, and really committing to quitting. It is risky to use nicotine replacement products in conjunction with smoking as there is risk of nicoti ne toxicity. I would like him to make a firm commitment to quitting before he tries another method of quitting. He strongly desires quitting, but has had a hrad time making the next st ep in terms of firm commitment. I reviewed management steps, such as getting rid of all item s related to smoking, except for one ashtray for his to use, and that can be put outsid e. Then he must wash everything, clean the entire house, etc. He will be less likely to reg ress if he uses these methods. 5 minutes was spent on counseling regarding smoking cessation. - nicotine (NICOTROL) 10 mg inhaler; Inhale 1 cartridge into the lungs as needed for Smokin g cessation. Nocturnal hypoxemia He is on nocturnal oxygen and with discontinuation of his portable oxygen, he had an overni t oximetry rechecked. I recommended he remain on the nocturnal oxygen unless he is told th at his overnight oximetry looked okay. Restless legs syndrome He is doing better on the ropinirole, so we refilled this today. - rOPINIRole (REQUIP) 1 mg tablet; Take 1 tablet by mouth nightly. Return to clinic in 6 months, or sooner with concerns. I asked him to contact us if he does not get better with the treat ment for his exacerbation. CC: Jose Angel Reina documented in t his encounter Plan of Treatment Not on filedocumented as of this encounter Procedures + +--------+ + + + | Procedure Name | Priori | Date/Time | Associated Diagnosis | Comments | | | ty | | | | + +--------+ + + + | DIAGNOSTIC REPORT - | | 10/12/2012 | | Results for this | | EXTERNAL SCAN | | 12:00 AM | | procedure are in the | | | | PDT | | results section. | + +--------+ + + + documented in this encounter Results DIAGNOSTIC REPORT - EXTERNAL SCAN (10/12/2012 12:00 AM PDT) + + + | Narrative | Performed At | + + + | Ordered by an | | | unspecified provider. | | + + + + + | Transcriptions | + + | Madonna Coronadoeladio - 10/12/2012 12:00 AM PDT | + + documented in this encounter Visit Diagnoses + + | Diagnosis | + + | COPD exacerbation (HCC) - Primary Obstructive chronic bronchitis with exacerbation | + + | Tobacco abuse Tobacco use disorder | + + | Nocturnal hypoxemia Hypoxemia | + + | Restless legs syndrome Restless legs syndrome (RLS) | + + documented in this encounter"
--- OUTSIDE RECORDS SUMMARY | ~2019-02-26 | XMS | Encounter Summary ---
Demographics + + + | Address | [address] | | | [place] [address] | + + + | Home Phone [...] | Author | [facility] | | | and Vargasana | + + + | Organization | [facility] | [...] #[place] | | | | | [address] | | + + + + + Care Team Providers + +------+ + | Care Director Of Critical Care Name | Role | Phone | + [...] Frazier MD | | | | | [place], | | | | | | [place] [address] | | | | | | [phone] | | | +--------+--------+ + + + [...]
--- OUTSIDE RECORDS SUMMARY | ~2019-02-26 | XMS | Encounter Summary ---
Demographics + + + | Address | [address] | | | [place] [address] | + + + | Home Phone [...] | Author | [facility] | | | and Vargasana | + + + | Organization | [facility] | | | and Vargasana | + + + | Address | Unknown | + + + | Phone | Unavailable | + + + Support + + + + + | Name | Relationship | Address | Phone | + + + + + | Palak Aguilar | ECON | #[place] | | | | | [address] | | + + + + + Care Team Providers + +------+ + | Care Professor Of Law Name | Role | Phone | + +------+ + | Jose Angel Reina MD | PCP | | + +------+ + Encounter Details +--------+ + + + + | Date | Type | Department | Care Team | Description | +--------+ + + + + | 06/18/ | Orders Only | [facility] [place] | Galina Veliz, | Hypoxemia | | 2016 | | PULMONARY [address] | RN | | | | | [place], | | | | | | [place] [address] | | | | | | [phone] | | | +--------+ + + + [...] | Diagnosis | + + | Hypoxemia | + + documented in this encounter
--- OUTSIDE RECORDS SUMMARY | ~2019-02-26 | XMS | Encounter Summary ---
Demographics + + + | Address | [address] | | | [place] [address] | + + + | Home Phone [...] Author | [facility] | | | and Vargasana | + + + | Organization | [facility] | | | and Vargasana | + + + | Address | Unknown | + + + | Phone | Unavailable | + + + Support + + + + + | Name | Relationship | Address | Phone | + + + + + | Palak Aguilar | ECON | #[place] | | | | | [address] | | + + + + + Care Team Providers + +------+ + | Care Research Animal Attendant Name | Role | Phone | + +------+ + | Jose Angel Reina MD | PCP | | + +------+ + Encounter Details +--------+ + + + + | Date | Type | Department | Care Team | Description | +--------+ + + + + | 01/16/ | Hospital | [facility] | Karlos Craig, | Right shoulder pain; | | 2014 | Encounter | MED CTR XRAY [address] | MD [address] | Rotator cuff | | | | [place] | [place], [place] | tendonitis, right; | | | | [place] [address] | [address] | Rotator cuff tear | | | | [phone] | | arthropathy of right | | | | | Rad, [facility] | shoulder | +--------+ + + + + Social [...] 99 | | | | | | ([facility]) | months | | | [...] + +--------+ + + + | FL SHOULDER | Routin | 04/20/2014 | Right shoulder | Results for this | | INJECTION RIGHT FOR | e | 10:09 AM | pain Rotator cuff | procedure are in the | | MRI OR CT | | PST | tendonitis, right | results section. | | | | | Rotator cuff tear | | | | | | arthropathy of right | | | | | | shoulder | | + +--------+ + + + documented in this encounter Results FL Shoulder Inj Right for MRI or [...] | Blake, Rad Results In - 04/20/2014 11:33 AM PST [...] + | MISCELLANEOUS LAB | | | [phone] | + +---------+ + + | MISCELANIOUS LAB | | | [phone] | + +---------+ + + documented in this encounter Visit Diagnoses + + | Diagnosis | + + | Right shoulder pain Pain in joint, shoulder region | + + | Rotator cuff tendonitis, right | + + | 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 Administered Medications + +--------+ +---------+------+------+ | Medication Order | MAR | Action | Dose | Rate | Site | | | Action | Date | | | | + +--------+ +---------+------+------+ | gadopentetate (MAGNEVIST) | Given | 04/20/19 | 0.1 mLs | | | | injection 0.1 mL 0.1 mL, | | 15 10:08 | | | | | Intra-articular, ONCE PRN, Other, | | AM PST | | | | | Starting 04/20/14 at 1005, | | | | | | | For 1 dose, MRI | | | | | | + +--------+ +---------+------+------+ +---+---+ | | | +---+---+ + +-------+ +-------+---+---+ | iohexol (OMNIPAQUE 300) 300 | Given | 04/20/19 | 5 mLs | | | | mg/mL injection 5 mL 5 mL, | | 15 10:08 | | | | | Intra-articular, ONCE PRN, Other, | | AM PST | | | | | Starting 04/20/14 at 1006, | | | | | | | For 1 dose, Radiology | | | | | | + +-------+ +-------+---+---+ +---+---+ | | | +---+---+ + +-------+ +-------+---+ + | lidocaine 1% injection 5 mL 5 | Given | 04/20/19 | 5 mLs | | Other | | mL, Intradermal, ONCE, Fri | | 15 10:30 | | | (Comment | | 04/20/14 at 1030, For 1 dose | | AM PST | | | ) | + +-------+ +-------+---+ + +---+---+ | | | +---+---+ documented in this encounter"
--- OUTSIDE RECORDS SUMMARY | ~2019-02-26 | XMS | Encounter Summary ---
Demographics + + + | Address | [address] | | | [place] [address] | + + + | Home Phone | | + + + | Preferred Language | Unknown | + + + | Marital Status | | + + + | Hinduism Affiliation | 1061 | + + + | Race | Unknown | + + + | Ethnic Group | Unknown | + + + Author + + + | Author | [facility] | | | and Vargasana | + + + | Organization | [facility] | | | and Vargasana | + + + | Address | Unknown | + + + | Phone | Unavailable | + + + Support + + + + + | Name | Relationship | Address | Phone | + + + + + | Palak Daugherty | ECON | #[place] | | | | | [address] | | + + + + + Care Team Providers + +------+ + | Care Materials Planner/Production Planner Name | Role | Phone | + [...] | Karlos Gatica MD | [address] | | | | | spinal | [address] | [place], | | | | | stenosis | [address] | [place] | | | | | Facet | [place], | [address] | | | | | arthritis of | [place] [address] | Phone: | | | | | lumbar | Phone: | [phone] | | | | | region | [phone] | Fax: | | | | | Lumbalgia | Fax: | [phone] | | | | | Procedures | [phone] | | | | | | MRI [...] + + | 01/19/ | Office | [facility] | Karlos Craig, | Lumbar spinal | | 2012 | Visit | MEDICINE | [address] | stenosis (Primary | | | | REHABILITATION [address] | [place] | Dx); 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 Job ID# [id number] signed by Karlos Craig MD at 01/19/2013 6:06 PM Arleen Ashby RN - 01/19/2013 2:28 PM PDTPatient stets he continues to have unsteady gait. No back lucinda n at this time. Patient continues to work with PT. arlos Craig MD - 01/19/2013 12:00 AM PDT [facility] [address] [place] [address] FAX: [phone] OFFICE VISIT PHYSICAL MEDICINE REHABILITATION PROGRESS NOTE [...] was recommended that he be evaluated at [facility]. T his is pending. When he [...] worth of physical therapy appointments yet to c [facility]. Mr. Daugherty has not noted any significant [...] there is "degenerative changes of the posterior tulalip ents of L5, otherwise unremarkable lumbar spine." [...] is necessary for his back. If his katalina mbar MRI is normal, I would attribute his current sensation and symptoms as to the ataxia a nd neurologic diagnosis that Dr. Williamson has given him. However, if there is evidence of lumbar spinal stenosis, neural foraminal narrowing or contribution towards lumbar radiculopathy, these issues may be addressed. Approximately 30 minutes was spent txcv-eb-vcjd today with Mr. Daugherty, over half of which was spent formulating and discussing his medical treatment plan. Thank you for allowing me to be involved in the care of your patient. If you have any quest ions regarding the care of Mr. Daugherty, please do not hesitate to call. Karlos Craig Jr, MD GEM / PAP JOB #: [id number] cc: Peter Reina MD documented in this encounter Plan of Treatment Not on filedocumented as of this encounter Results MRI Lumbar Spine wo Contrast (02/22/2013 3:17 PM PST) + + | Specimen | + + | | + + + + + | Narrative | Performed At | + + + | [facility] | [place] | | Department [address] [place] | [facility] | | [ rep ct [address]] [ rep [facility] | | st zip] Signed | - IMAGING | | | | | Patient Name: KEVIN DAUGHERTY SR | | | Physician: ROBINA : 1950 Age: 62 Sex: M Unit | | | #: [id number] Exam Date: 02/22/13 Location: | | | [facility] Report #: [id number] Page: | | | %(RAD)RES..mtdd.print.filter("pg") of %(RAD) | | | RES..mtdd.print.filter("tpg") | | | | | | Accession Number: [id number] | | | LUMBAR SPINE WITHOUT CONTRAST [...] Transcribed Date/Time: 02/22/2013 | | | 18:05 Workers Compensation Coordinator: <<Signature on | | | File>> | | | Yared Acosta | Dave Diaz MD02/22/131 <Electronically signed by Yared Anderson | | Dave Diaz MD> Yared Diaz MD 02/22/13 1517 | | | Workers Compensation Coordinator: Equiendo Senqmhqhjnjir68/20/13 3422 | | | Karlos Craig Jr, MD | | + + + + + + + + | Performing | Address | City/State/Zipcode | Phone Number | | Organization | | | | + + + + + | [facility] | [address] | [place] | [phone] | | [facility] | | [address] | | | - IMAGING | | [...]
--- OUTSIDE RECORDS SUMMARY | ~2019-02-26 | XMS | Encounter Summary ---
Demographics + + + | Address | [address] | | | [place] [address] | + + + | Home Phone | | + + + | Preferred Language | Unknown | + + + | Marital Status | | + + + | Zoroastrian Affiliation | 1061 | + + + | Race | Unknown | + + + | Ethnic Group | Unknown | + + + Author + + + | Author | [facility] | | | and Vargasana | + + + | Organization | [facility] | [...] #[address] | | | | | [address] | | + + + + + Care Team Providers + +------+ + | Care Software Development Project Manager Name | Role | Phone | + +------+ + PCP | Unavailable | + +------+ + Encounter Details +--------+ + + + + | Date | Type | Department | Care Team | Description | +--------+ + + + + | 05/04/ | [facility] | Chrissy, | | | 2011 | Encounter | MED CTR SLEEP | Ling Frazier MD | | | | | CENTER [address] | | | | | | [place] | | | | | | [address] | | | | | | [phone] | | | +--------+ + + + [...]
--- OUTSIDE RECORDS SUMMARY | ~2019-02-26 | XMS | Encounter Summary ---
Demographics + + + | Address | [address] | | | [place] [address] | + + + | Home Phone | | + + + | Preferred Language | Unknown | + + + | Marital Status | | + + + | Orthodox Affiliation | 1061 | + + + | Race | Unknown | + + + | Ethnic Group | Unknown | + + + Author + + + | Author | [facility] | | | and Vargasana | + + + | Organization | [facility] | | | and Vargasana | + + + | Address | Unknown | + + + | Phone | Unavailable | + + + Support + + + + + | Name | Relationship | Address | Phone | + + + + + | Palak Aguilar | ECON | #[address] | | | | | [address] | | + + + + + Care Team Providers + +------+ + | Care Mine Wirer Name | Role | Phone | + +------+ + | Jose Angel Reina MD | PCP | | + +------+ + Encounter Details +--------+ + + + + | Date | Type | Department | Care Team | Description | +--------+ + + + + | 09/25/ | Orders Only | [facility] [place] | Claudia Michelle J, | Nocturnal hypoxemia | | 2015 | | PULMONARY [address] | RN | due to emphysema | | | | [place], | | ([facility]) | | | | [place] [address] | | | | | | [phone] | | | +--------+ + + + [...] + | Diagnosis | + + | 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
--- OUTSIDE RECORDS SUMMARY | ~2019-02-26 | XMS | Encounter Summary ---
Demographics + + + | Address | [address] | | | [place] [address] | + + + | Home Phone | | + + + | Preferred Language | Unknown | + + + | Marital Status | | + + + | Mosque Affiliation | 1061 | + + + | Race | Unknown | + + + | Ethnic Group | Unknown | + + + Author + + + | Author | [facility] | | | and Vargasana | + + + | Organization | [facility] | | | and Vargasana | + + + | Address | Unknown | + + + | Phone | Unavailable | + + + Support + + + + + | Name | Relationship | Address | Phone | + + + + + | Palak Daugherty | ECON | #[address] | | | | | [address] | | + + + + + Care Team Providers + +------+ + | Care Tour Actor Name | Role | Phone | + +------+ + | Jose Angel Fields MD | PCP | | + +------+ + Reason for Visit + + + | Reason | Comments | + + + | Shoulder Pain | right | + + + Encounter Details +--------+---------+ + + + | Date | Type | Department | Care Team | Description | +--------+---------+ + + + | 07/11/ | Office | [facility] | Karlos Fonseca, | Right shoulder pain | | 2015 | Visit | PHYSIATRY [address] | [address] | (Primary Dx); | | | | [place], | [place], [place] | Rotator cuff tear | | | | [place] [address] | [address] | arthropathy of right | | | | [phone] | | shoulder; Erectile | | | | | | dysfunction, | | | | [...] request orthopedic surgery consult. Follow up with Jose Angel Fields MD to discuss treatment options for your ED. documented in this encounter Progress Notes Karlos Fonseca MD - 07/11/2014 1:48 PM PDT [facility] PHYSI[facility]RY [address] [facility] [address] OFFICE NOTE KARLOS FONSECA JR, MD Patient: KEVIN DAUGHERTY Admitting: MR #: [id number] LOC: PT TYPE: Adm Date: 07/11/2014 : 1950 PHYSICAL MEDICINE REHABILITATION PROGRESS NOTE DATE OF : 1950 CONSULT REQUESTED BY: Jose Angel Fields MD DATE OF SERVICE: 07/11/2014 PATIENT [...] that right shoulder pain is improved. When yandel romero was last seen 05/2014, he had right [...] ALLERGIES: LEVOFLOXACIN and CHANTIX. CURRENT MEDICATIONS: Albuterol. Iralnxj-ctythfzxotzot-fnnybrei 1 tablet every 6 hours as needed. [...] diabetes may contribute towards erectile dysfunction. W heather discussed that he is at significant cardiovascular [...] 07/11/2014 13:48:33 Transcribed on 07/11/2014 14:16:43 by [facility] job# [id number] Confirmation #: [id number] cc: JOSE ANGEL FIELDS MD 3:2 0 PM PDTKarlos Fonseca MD - 07/11/2014 1:38 PM PDTThis office note has been dictated. Job ID# [id number] Arleen Ashby RN - 07/11/2014 1:09 PM PDTPatient states [...]
--- OUTSIDE RECORDS SUMMARY | ~2019-02-26 | XMS | Encounter Summary ---
Demographics + + + | Address | [address] | | | [place] [address] | + + + | Home Phone [...] + | Author | [facility] | | | and Vargasana | + + + | Organization | [facility] | | | and Vargasana | + + + | Address | Unknown | + + + | Phone | Unavailable | + + + Support + + + + + | Name | Relationship | Address | Phone | + + + + + | Palak Aguilar | ECON | [address] | | | | | [address] | | + + + + + Care Team Providers + +------+ + | Care Manager Action Name | Role | Phone | + [...] + + | 06/16/ | Office | [facility] | [place], | Chronic obstructive | | 2015 | Visit | PULMONARY [address] | Ling Frazier MD | pulmonary disease, | | | | [place], | | unspecified COPD | | | | [place] [address] | | type (HCC) (Primary | | | | [phone] | | Dx); Hypoxemia; | | | [...] e nded up in the hospital at [facility] for his exacerbation. While in the [...] is currently on 3 LPM at [facility] He reports good compliance. He was discharged [...] made to ensure accuracy; however, inadvertent computerized building maintenance worker errors may be pre sent. documented in [...]
--- OUTSIDE RECORDS SUMMARY | ~2019-02-26 | XMS | Encounter Summary ---
Demographics + + + | Address | [address] | | | [place] [address] | + + + | Home Phone [...] | [facility] | | | and Vargasana | + + + | Organization | [facility] | | | and Vargasana | + + + | Address | Unknown | + + + | Phone | Unavailable | + + + Support + + + + + | Name | Relationship | Address | Phone | + + + + + | Palak Aguilar | ECON | [address] | | | | | [address] | | + + + + + Care Team Providers + +------+ + | Care Refrigeration Plant Operator Name | Role | Phone | [...] + + | 09/27/ | Office | [facility] | [place], | COPD (chronic | | 2013 | Visit | PULMONARY [address] | Ling Frazier MD | obstructive | | | | [place], | | pulmonary disease) | | | | [place] [address] | | (Primary Dx); | | | | [phone] | | Nocturnal hypoxemia | | | [...] want to do the lab tests that [facility] recommended, let me know, and I will figure out h ow to do it. [id number]-SXOK-NOW is a free service to help you [...] The quit line is available in both Croatian and Botswanan with translation and TTY services. It is [...] He is currently on 3 LPM at [facility]. He reports good compliance. Past [...] of Breath. Dx: 496 RINA: 99 months [facility] Kinza 360 vial 4 aspirin 325 mg [...] that he look in to classes at [facility]. He wanted to know if patches [...] - He inquired about the testing that [facility] wanted, so I looked in the [facility] system, got their notes and have requested [...] to inquire about smoking cessation classes at [facility]. 4. We will inquire about cost [...] made to ensure accuracy; however, inadvertent computerized labor relations officer errors may be pre sent. Electronically signed [...]
--- OUTSIDE RECORDS SUMMARY | ~2019-02-26 | XMS | Encounter Summary ---
Demographics + + + | Address | [address] | | | [place] [address] | + + + | Home Phone [...] + | Author | [facility] | | | and Vargasana | + + + | Organization | [facility] | | | and Vargasana | + + + | Address | Unknown | + + + | Phone | Unavailable | + + + Support + + + + + | Name | Relationship | Address | Phone | + + + + + | Palak Daugherty | ECON | [address] | | | | | [address] | | + + + + + Care Team Providers + +------+ + | Care Yard Manager Name | Role | Phone | [...] | Karlos Gatica MD | [address] | | | | | spinal | [address] | [place], | | | | | stenosis | [address] | [place] | | | | | Facet | [place], | [address] | | | | | arthritis of | [place] [address] | Phone: | | | | | lumbar | Phone: | [phone] | | | | | region | [phone] | Fax: | | | | | Lumbalgia | Fax: | [phone] | | | | | Procedures | [phone] | | | | | | MRI [...] + + | 01/19/ | Office | [facility] | Karlos Craig, | Lumbar spinal | | 2012 | Visit | MEDICINE | [address] | stenosis (Primary | | | | REHABILITATION [address] | [place] | Dx); Facet arthritis | | | | [address] [place] | [address] | of lumbar region; | | | | [place] [address] | | Lumbalgia; | | | | [phone] | | Claustrophobia | +--------+---------+ + + [...] office note has been dictated. Job ID# [id number] signed by Karlos Craig MD at 01/19/2013 6:06 PM Arleen Ashby RN - 01/19/2013 2:28 PM PDTPatient stets he continues to have unsteady gait. No back lucinda n at this time. Patient continues to work with PT. arlos Craig MD - 01/19/2013 12:00 AM PDT PHYSICAL MEDICINE AND REHAB [address] [place] [address] FAX: [phone] OFFICE VISIT PHYSICAL MEDICINE REHABILITATION PROGRESS NOTE [...] was recommended that he be evaluated at [facility]. T his is pending. When he was [...] of physical therapy appointments yet to [facility]. Mr. Daugherty has not noted any [...] there is "degenerative changes of the posterior alutiiq ents of L5, otherwise unremarkable lumbar spine." [...] be addressed. Approximately 30 minutes was spent jfyd-zi-cobb today with Mr. Daugherty, over half of which was spent formulating and discussing his medical treatment plan. Thank you for allowing me to be involved in the care of your patient. If you have any quest ions regarding the care of Mr. Daugherty, please do not hesitate to call. Karlos Craig Jr, MD GEM / PAP JOB #: [id number] cc: Peter Reina MD documented in this encounter Plan of Treatment Not on filedocumented as of this encounter Results MRI Lumbar Spine wo Contrast (02/22/2013 3:17 PM PST) + + | Specimen | + + | | + + + + + | Narrative | Performed At | + + + | [facility] | [place] | | Department [address] [place] | [facility] | | [ rep ct [address]] [ rep [facility] | | st zip] Signed | - IMAGING | | | | | Patient Name: KEVIN DAUGHERTY SR | | | Physician: ROBINA : 1950 Age: 62 Sex: M Unit | | | #: [id number] Exam Date: 02/22/13 Location: | | | [facility] Report #: [id number] Page: | | | %(RAD)RES..mtdd.print.filter("pg") of %(RAD) | | | RES..mtdd.print.filter("tpg") | | | | | | Accession Number: [id number] | | | LUMBAR SPINE WITHOUT CONTRAST [...] Transcribed Date/Time: 02/22/2013 | | | 18:05 Encapsulator: <<Signature on | | | File>> | | | Yared Acosta | Dave Diaz MD02/22/131 <Electronically signed by Yared Anderson | | Dave Diaz MD> Yared Diaz MD 02/22/13 1517 | | | Encapsulator: [employer] Ruehtgqrvvrpk04/20/13 5300 | | | Karlos Craig Jr, MD | | + + + + + + + + | Performing | Address | City/State/Zipcode | Phone Number | | Organization | | | | + + + + + | [facility] | [address] | [place] | [phone] | | [facility] | | [address] | | | - IMAGING | | [...]
--- OUTSIDE RECORDS SUMMARY | ~2019-02-26 | XMS | Encounter Summary ---
Demographics + + + | Address | [address] | | | [place] [address] | + + + | Home Phone [...] | Author | [facility] | | | and Vargasana | + + + | Organization | [facility] | | | and Vargasana | + + + | Address | Unknown | + + + | Phone | Unavailable | + + + Support + + + + + | Name | Relationship | Address | Phone | + + + + + | Palak Aguilar | ECON | [address] | | | | | [address] | | + + + + + Care Team Providers + +------+ + | Care Power Plant Operators Supervisor Name | Role | Phone | [...] Frazier MD | | | | | [place], | | | | | | [place] [address] | | | | | | [phone] | | | +--------+--------+ + + + [...]
--- OUTSIDE RECORDS SUMMARY | ~2019-02-26 | XMS | Clinical Summary ---
Demographics + + + | Address | [address] | | | [place] [address] | + + + | Home Phone [...] Team Providers + +------+ + | Care Active Directory Administrator Name | Role | Phone | + +------+ + | Jose Angel Reina MD | PCP | | + +------+ + Source Comments NIESHA is fully live on both EpicCare Ambulatory and EpicCare InPatient.[facility] Allergies Not on File Medications + + [...] + + + + + | Pneumococcal | | | | | vaccination (1 of 2 | 4 | | | | - PCV13) | | | | + + + + + | Influenza (Flu) | | | | | vaccination (#1) | 9 | | | + + + + + Results Not on filefrom Last 3 Months"
--- OUTSIDE RECORDS SUMMARY | ~2019-02-26 | XMS | Encounter Summary ---
Demographics + + + | Address | [address] | | | [place] [address] | + + + | Home Phone | | + + + | Preferred Language | Unknown | + + + | Marital Status | | + + + | Holiness Affiliation | 1061 | + + + | Race | Unknown | + + + | Ethnic Group | Unknown | + + + Author + + + | Author | [facility] | | | and Vargasana | + + + | Organization | [facility] | | | and Vargasana | + + + | Address | Unknown | + + + | Phone | Unavailable | + + + Support + + + + + | Name | Relationship | Address | Phone | + + + + + | Palak Aguilar | ECON | [address] | | | | | [address] | | + + + + + Care Team Providers + +------+ + | Care Copyist Name | Role | Phone | + [...] + + | 09/15/ | Office | [facility] | [place], | Chronic obstructive | | 2016 | Visit | PULMONARY [address] | Ling Frazier MD | pulmonary disease, | | | | [place], | | unspecified COPD | | | | [place] [address] | | type ([facility]) (Primary | | | | [phone] | | Dx); Allergic | | | | | | rhinitis, | | | | | | unspecified allergic | | | | | | rhinitis type; | | | | | | Nocturnal hypoxemia | | | | | | due to emphysema | | | | | | ([facility]); Tobacco abuse | +--------+---------+ + + + [...] up to see the doctor coming from [facility] to [place]. No medication changes. 3:3 1 PM PDT documented in this encounter Progress Notes Ling Lowe MD - 09/16/2015 2:39 PM PDTFormatting of this note might be differe nt from the original. Pulmonary Follow Up HPI Nazario Aguilar Sr. is a 65 y.o. male patient of [...] in the yard. He usually uses an [employer] alex cart at [facility] when he can. He does cough some of the time, but not all of the time. He is bringing up mucous, which is clear in color. He has been evaluated for nocturnal oxygen and does use it. He is currently on 3 LPM at [facility]. He reports good compliance. Past [...] Chronic obstructive pulmonary disease, unspecified COPD type ([facility]) J44.9 496 He has been more stable [...] make a more firm commitment to quitting luis armando iraheta. He was advised to call if new pulmonary symptoms were to develop. Return to clinic in 4 months, or sooner with concerns. CC: Jose Angel Reina MD Portions of this report were transcribed using voice recognition software. Every effort wa s made to ensure accuracy; however, inadvertent computerized friction saw operator errors may be pre sent. documented in this encounter Plan of Treatment Not on filedocumented as of this encounter Visit Diagnoses + + | Diagnosis | + + | Chronic obstructive pulmonary disease, unspecified COPD type (HCC) - Primary | + + | Allergic rhinitis, unspecified allergic rhinitis type | + + | Nocturnal hypoxemia due to emphysema ([facility]) Other emphysema | + + | Tobacco abuse Tobacco use disorder | + + documented in this encounter
--- OUTSIDE RECORDS SUMMARY | ~2019-02-26 | XMS | Encounter Summary ---
Demographics + + + | Address | [address] | | | [place] [address] | + + + | Home Phone [...] | Author | [facility] | | | and Vargasana | + + + | Organization | [facility] | | | and Vargasana | + + + | Address | Unknown | + + + | Phone | Unavailable | + + + Support + + + + + | Name | Relationship | Address | Phone | + + + + + | Palak Aguilar | ECON | [address] | | | | | [address] | | + + + + + Care Team Providers + +------+ + | Care Fitting Room Checker Name | Role | Phone | [...] Description | +--------+--------+ + + + | 04/04/ | Refill | [facility] [place] | [place], | Medication Refill | | 2014 | | [address]ULMONARY [address] | Ling Frazier MD | | | | | [place], | | | | | | [place] [address] | | | | | | [phone] | | | +--------+--------+ + + + [...]
--- OUTSIDE RECORDS SUMMARY | ~2019-02-26 | XMS | Encounter Summary ---
Demographics + + + | Address | [address] | | | [place] [address] | + + + | Home Phone [...] | Author | [facility] | | | and Vargasana | + + + | Organization | [facility] | | | and Vargasana | + + + | Address | Unknown | + + + | Phone | Unavailable | + + + Support + + + + + | Name | Relationship | Address | Phone | + + + + + | Palak Aguilar | ECON | [address] | | | | | [address] | | + + + + + Care Team Providers + +------+ + | Care Founder And Chief Technical Officer Name | Role | Phone | [...] Lisa GreenwoodLeonora | | | | | [phone] | [place] [address] | | +--------+ + + + + [...]
--- OUTSIDE RECORDS SUMMARY | ~2019-02-26 | XMS | Encounter Summary ---
Demographics + + + | Address | [address] | | | [place] [address] | + + + | Home Phone [...] Author | [facility] | | | and Vargasana | + + + | Organization | [facility] | | | and Vargasana | + + + | Address | Unknown | + + + | Phone | Unavailable | + + + Support + + + + + | Name | Relationship | Address | Phone | + + + + + | Palak Aguilar | ECON | [address] | | | | | [address] | | + + + + + Care Team Providers + +------+ + | Care Alloy Weigher Name | Role | Phone | + +------+ + | Jose Angel Reina MD | PCP | | + +------+ + Reason for Visit + + + | Reason | Comments | + + + | Follow-up | COPD | + + + Encounter Details +--------+---------+ + + + | Date | Type | Department | Care Team | Description | +--------+---------+ + + + | 03/15/ | Office | [facility] [place] | [place], | COPD (chronic | | 2013 | Visit | PULMONARY [address] | iLng Frazier MD | obstructive | | | | [place], | | pulmonary disease) | | | | [place] [address] | | (HCC) (Primary Dx); | | | | [phone] | | Nocturnal hypoxemia | | | | | | due to emphysema | | | | | | ([facility]); Tobacco abuse | +--------+---------+ + + + [...] + + + | Blood Pressure | 124/78 | 03/15/2014 11:29 AM | | | | | PST | | + + + + + | Pulse | 87 | 03/15/2014 11:29 AM | | | | | PST | | + + + + + | Temperature | - | - | | + + + + + | Respiratory Rate | - | - | | + + + + + | Oxygen Saturation | 96% | 03/15/2014 11:29 AM | room air | | | | PST | | + + + + + | Inhaled Oxygen | - | - | | | Concentration | | | | + + + + + | Weight | 100.7 kg (221 lb | 03/15/2014 11:29 AM | | | | 14.4 oz) | PST | | + + + + + | Height | 175.3 cm (5' 9") | 03/15/2014 11:29 AM | | | | | PST | | + + + + + | Body Mass Index | 32.77 | 03/15/2014 11:29 AM | | | | | PST | | + + + + + documented in this encounter Patient Instructions Patient Instructions Ling Lowe MD - 03/15/2014 11:49 AM PSTI want you to resum e the Advair twice daily, every day in addition to the Spiriva once daily. You will also stay on the Daliresp. I sent the albuterol nebulizer prescription to [facility]. You need to think about quitting smoking, and commit to a quit date. If you can commit to t he things we discussed, such as getting rid of all things in the house related to smoking, c leaning the house, washing your clothes, etc. Then we can discuss starting something such as the nicotine inhaler. You would also need to go through smoking cessation classes. Call [facility] and see if they have smoking cessation classes. [facility] offers free smoking cessation classes. We want t o support you in your decision to quit and help you have a better chance of success. Quittin g smoking is not easy, but you can do it. For registration or more information, please call [facility] R.N. at documented in this encounter Progress Notes Ling Lowe MD - 03/15/2014 11:40 AM PSTFormatting of this note might be differe nt from the original. Pulmonary Follow Up HPI Nazario Doan Jeff Fabian. is a 63 y.o. male patient of Jose Angel Reina here today f or follow up of COPD. At their last visit, we had continued him on Advair, Spiriva and Daliresp. Since their last visit he feels like he has been doing good he thinks. He has not had any acute illnesses. He is currently on a regimen of Spiriva once daily. He notes he has not used the Advair in some time. He is not sure how long he has not been using this, as he has it at home, he just wasn't sure he was supposed to do this all the time. He is taking the Daliresp daily. Anaya judd he is using his rescue inhaler, ProAir, 1 times a day. He ran out of the albuterol [employer] lizer, and went back to using his Duonebs until he could get this refilled. He has been usin g the nebulizer 3 times daily. He returns today for routine follow up. Currently he is able to walk 1/2 mile at his own pace on level ground, using a grocery cart . He is exercising regularly. He goes to [employer] to walk every day when his goes to wor k, and walks 1-2 laps. He does not cough very often. He has not had hemoptysis. He has been evaluated for nocturnal oxygen and does use it. He is [facility]. He reports good compliance. Past [...] Never Used Comment: currently smoking up to 1ppd, debating on the e cigarette Alcohol Use: No Drug Use: No Sexually Active: None Other Topics Concern None Social History Narrative No known toxic chemical exposures. No known asbestos exposure. No known TB exposure. Has d ogs and cat in home. Allergies: Allergies Allergen Reactions Levofloxacin Varenicline Tartrate Chantix Medications: Outpatient Encounter Prescriptions as of 03/15/2014 Medication Sig Dispense Refill albuterol (PROAIR HFA) 90 mcg/puff inhaler Inhale 2 puffs into the lungs every 6 hours as needed. albuterol 2.5 mg/3 mL nebulizer solution Take 3 mLs by nebulization every 6 hours as ne eded for Wheezing or Shortness of Breath. Dx: 496 RINA: 99 months [facility] Jerome 360 vial 4 aspirin 81 mg EC tablet Take 81 mg by mouth Daily. gwnqwxt-cpaamzdoeivrc-fleeescs (HEADACHE RELIEF) 250-250-65 MG per tablet Take [...] BY MOUTH ONCE DAILY 30 tablet 5 fluticasone (FLONASE) 50 mcg/nasal spray Use one spray in each nostril every day 16 g 5 fluticasone-salmeterol (ADVAIR DISKUS) 500-50 mcg/puff diskus inhaler 1 puff inhaled tw ice daily lisinopril (PRINIVIL,ZESTRIL) 2.5 MG tablet Take 2.5 [...] abdominal pain. : Denies difficulty emptying bladder. Objective BP 124/78 | Pulse 87 | Ht 1.753 m (5' 9") | Wt 100.653 kg (221 lb 14.4 oz) | BMI 32.75 kg/m 2 | SpO2 96% General Appearance: [...] mildly obese Extremities: No cyanosis, clubbing, trace bilateral lower extremity edema Pulses: Radial pulses 2+ and symmetric Skin: Warm and dry Lymph nodes: Cervical and supraclavicular nodes normal Data: Immunization History Administered Date(s) Administered INFLUENZA, >= 4YO W/PRESERVATIVE IM 01/18/2011 PNEUMOCOCCAL POLYSACCHARIDE 23-VALENT (PPSV23) 01/18/2010 QUADRIVALENT INFLUENZA, PRESERVATIVE FREE (PED/ADOL/ADULT) 12/28/2013 TDAP, (ADOL/ADULT) 01/19/2012 TRIVALENT INFLUENZA, PRESERATIVE FREE (PED/ADOL/ADULT) 01/19/2012, 03/16/2013 Assessment 1. COPD (chronic obstructive pulmonary disease) (HCC) - He has been stable. He has not been using his Advair, as he did not realize he needed to use this twice daily. He has been walk ing more, and has not been sick lately. 2. Nocturnal hypoxemia due to emphysema (HCC) - On oxygen at 3L without issue. 3. Tobacco abuse - He describes himself as very much desiring to quit, but he is not really committed to this. He expects to get a medication, and then just magically not want to smok e. I told him that he needed to be firmly committed to quitting first, and ready to give up all things related to smoking, such as cigarettes, ashtrays etc, and clean his entire house to get rid of the smell. He is more likely to be successful if his quits as well. I recommended he also look in to attending a class before we try another medication. Plan 1.Continue Spiriva and Daliresp. 2.Recommended resuming Advair twice daily. 3.Continue oxygen at night at 3L. 4. I recommended he look in to a smoking cessation class before attempting to quit again. 40 minutes were spent with Mr. Aguilar with greater than 50% spent in counseling and coordi nation of care regarding his tobacco use, his COPD and medications. He was advised to call if new pulmonary symptoms were to develop. Return to clinic in 3 months, or sooner with concerns. CC: Jose Angel Reina Portions of this report were transcribed using voice recognition software. Every effort wa s made to ensure accuracy; however, inadvertent computerized order administrator errors may be pre sent. documented in [...]
--- OUTSIDE RECORDS SUMMARY | ~2019-02-26 | XMS | Encounter Summary ---
Demographics + + + | Address | [address] | | | [place] [address] | + + + | Home Phone [...] | Author | [facility] | | | and Vargasana | + + + | Organization | [facility] | | | and Vargasana | + + + | Address | Unknown | + + + | Phone | Unavailable | + + + Support + + + + + | Name | Relationship | Address | Phone | + + + + + | Palak Aguilar | ECON | [address] | | | | | [address] | | + + + + + Care Team Providers + +------+ + | Care Junior Business Analyst Name | Role | Phone | [...] | | | | History of | [address] | [address] | | | | | seizures | [place], | [place], | | | | | | [place] [address] | [place] [address] | | | | | | Phone: | Phone: | | | | | | [phone] | [phone] | | | | | | Fax: | Fax: | | | | | | [phone] | [phone] | +--------+ + + + + + [...] | | | | | Lumbalgia | [address] | | | | | | Tremor | [place], | | | | | | History of | [place] [address] | | | | | | seizures | Phone: | | | | | | | [phone] | | | | | | | Fax: | | | | | | | [phone] | | +--------+ + + + + [...] | weakness | Ling B, | [address] | | | | n | | [address] | [place], | | | | | | [address] | [place] [address] | | | | | | [place], | Phone: | | | | | | [place] [address] | [phone] | | | | | | | Fax: | | | | | | | [phone] | +--------+ + + + + + Encounter Details +--------+---------+ + + + | Date | Type | Department | Care Team | Description | +--------+---------+ + + + | 12/08/ | Office | [facility] [place] [facility] | Karlos Craig, | Unsteady gait | | 2012 | Visit | MEDICINE | [address] | (Primary Dx); | | | | REHABILITATION [address] | [place], [place] | Lumbalgia; Tremor; | | | | [place] | [address] | History of seizures; | | | | [place] [address] | | COPD (chronic | | | | [phone] | | obstructive | | | | | | pulmonary disease) | | | | | | ([facility]); Tobacco | | | | [...] in this encounter Patient Instructions Patient Instructions Karlso Craig MD - 12/08/2012 3:55 PM PDTMy office will obtain multi mission helicopter aircrewman ies of your back x-rays for review. Physical therapy has been prescribed. Please participate in physical therapy. If you have not be contacted for an appointment with physical therapy within one week, please contact [facility]. Once you have completed physical therapy please [...] office note has been dictated. Job ID# [id number] signed by Karlos Craig MD at 12/08/2012 [...] 12:00 AM PDT PHYSICAL MEDICINE AND REHAB [address] [place] [address] FAX: [phone] OFFICE VISIT PHYSICAL MEDICINE REHABILITATION CONSULT CONSULT [...] demonstrated significant intention tremor and ataxia with ztfght-nk-qpmz te sting in both upper extremities. He demonstrated significant discoordination in an effort t o try xlwe-fb-nqrd slide bilaterally. His gait demonstrated short, shuffling [...] is 5/5 biceps, triceps, wrist dorsiflexion, hand satellite dish repairer strength and f sammie abduction strength. In the lower extremities, there is 5/5 hip flexion, knee flexion, knee extension, ankle dorsiflexion, ankle plantar flexion and extensor hallucis longus str ength. DATABASE: Lumbar x-rays were completed today at [facility]. These x-rays are not available for my [...] type of walker. He will return to [facility] clinic in 6 weeks' time at which [...] ondylolisthesis. Greater than an hour was spent ydsq-jv-xjuk today with Mr. Aguilar, over half of which was spent formulating and discussing his medical treatment plan. Thank you for allowing me to be involved in the care of your patient. If you have any quest ions regarding the care of Mr. Aguilar, please do not hesitate to call. Karlos Craig Jr, MD GEM / PAP JOB #: [id number] cc: MD Peter Hatfield MD documented in [...]
--- OUTSIDE RECORDS SUMMARY | ~2019-02-26 | XMS | Encounter Summary ---
Demographics + + + | Address | [address] | | | [place] [address] | + + + | Home Phone [...] + | Author | [facility] | | | and Vargasana | + + + | Organization | [facility] | | | and Vargasana | + + + | Address | Unknown | + + + | Phone | Unavailable | + + + Support + + + + + | Name | Relationship | Address | Phone | + + + + + | Palak Aguilar | ECON | [address] | | | | | [address] | | + + + + + Care Team Providers + +------+ + | Care Greenskeeper Laborer Name | Role | Phone | + [...] Frazier MD | | | | | [place], | | | | | | [place] [address] | | | | | | [phone] | | | +--------+--------+ + + + [...]
--- OUTSIDE RECORDS SUMMARY | ~2019-02-26 | XMS | Clinical Summary ---
Demographics + + + | Address | [address] | | | [place] [address] | + + + | Home Phone | | + + + | Preferred Language | Unknown | + + + | Marital Status | | + + + | Alevism Affiliation | 1061 | + + + | Race | Unknown | + + + | Ethnic Group | Unknown | + + + Author + + + | Author | [facility] (Historical as of | | | 11-19-18) | + + + | Organization | [facility] (Historical as of | | | 11-19-18) | + + + | Address | Unknown | + + + | Phone | Unavailable | + + + Support + + + + + | Name | Relationship | Address | Phone | + + + + + | Palak Daugherty | ECON | [address] | | | | | [address] | | + + + + + Care Team Providers + +------+ + | Care Manager Quantitative Name | Role | Phone | + [...] 80 MG | daily. | | | 20 | | e | | tablet | [...] puffs into | 1 | 11 | 05/06 | | Activ | | (PROVENTIL | the lungs as needed | Inhaler | | 09/22 | | e | | HFA;VENTOLIN HFA) [...] the lungs 2 (two) | | | 09/22 | | e | | ol (ADVAIR) [...] | mouth daily. 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
--- OUTSIDE RECORDS SUMMARY | ~2019-02-26 | XMS | Encounter Summary ---
Demographics + + + | Address | [address] | | | [place] [address] | + + + | Home Phone [...] + | Author | [facility] | | | and Vargasana | + + + | Organization | [facility] | | | and Vargasana | + + + | Address | Unknown | + + + | Phone | Unavailable | + + + Support + + + + + | Name | Relationship | Address | Phone | + + + + + | Palak Aguilar | ECON | [address] | | | | | [address] | | + + + + + Care Team Providers + +------+ + | Care Games Dealer Name | Role | Phone | + [...] + + | 01/18/ | Office | [facility] [place] | [place], | COPD (chronic | | 2011 | Visit | [address]ULMONARY [address] | Ling Frazier MD | obstructive | | | | [place], | | pulmonary disease) | | | | [place] [address] | | (HCC) (Primary Dx); | | | | [phone] | | Hypoxemia; Periodic | | | [...] inhalers work the same way. Have yo healthcare provider show you how to use [...] nd it. Keep your chin up. 3. [place] 1 puff into the spacer by pressing [...] your mouth.) 3. Keep your chin up. [place] 1 puff by pressing down on the [...] store it in a dry p lace. [id number] [facility], [address] [place] [address], [place] [address]. All rights reserve d. This information is [...] be interested in doing physical therapy at [facility]. He does not cough chronically, and does [...] We will continue. Needs flu shot - [place] FLU VACCINE =>3YO PRESERVATIVE FREE IM Need [...] PDTdocumented in this encounter Plan of Treatment Not [...] for prophylactic vaccination with combined | | jvvodthcgb-hdrdonc-ggcaogsee (DTP) vaccine | + + documented in this encounter
--- OUTSIDE RECORDS SUMMARY | ~2019-02-26 | XMS | Encounter Summary ---
Demographics + + + | Address | [address] | | | [place] [address] | + + + | Home Phone [...] | Author | [facility] | | | and Vargasana | + + + | Organization | [facility] | | | and Vargasana | + + + | Address | Unknown | + + + | Phone | Unavailable | + + + Support + + + + + | Name | Relationship | Address | Phone | + + + + + | Palak Aguilar | ECON | [address] | | | | | [address] | | + + + + + Care Team Providers + +------+ + | Care Lining Layer Name | Role | Phone | + [...] | SR | | | | | [phone] | | | +--------+ + + + [...]
--- OUTSIDE RECORDS SUMMARY | ~2019-02-26 | XMS | Encounter Summary ---
Demographics + + + | Address | [address] | | | [place] [address] | + + + | Home Phone [...] | Author | [facility] | | | and Vargasana | + + + | Organization | [facility] | | | and Vargasana | + + + | Address | Unknown | + + + | Phone | Unavailable | + + + Support + + + + + | Name | Relationship | Address | Phone | + + + + + | Palak Aguilar | ECON | [address] | | | | | [address] | | + + + + + Care Team Providers + +------+ + | Care Estimator Lumber Name | Role | Phone | + [...] Frazier MD | | | | | [place], | | | | | | [place] [address] | | | | | | [phone] | | | +--------+--------+ + + + [...]
--- OUTSIDE RECORDS SUMMARY | ~2019-02-26 | XMS | Encounter Summary ---
Demographics + + + | Address | [address] | | | [place] [address] | + + + | Home Phone | | + + + | Preferred Language | Unknown | + + + | Marital Status | | + + + | Latter-Day Affiliation | 1061 | + + + | Race | Unknown | + + + | Ethnic Group | Unknown | + + + Author + + + | Author | [facility] | | | and Vargasana | + + + | Organization | [facility] | | | and Vargasana | + + + | Address | Unknown | + + + | Phone | Unavailable | + + + Support + + + + + | Name | Relationship | Address | Phone | + + + + + | Palak Aguilar | ECON | [address] | | | | | [address] | | + + + + + Care Team Providers + +------+ + | Care Monitor Tech Name | Role | Phone | + [...] Description | +--------+--------+ + + + | 02/28/ | Refill | [facility] [place] | [place], | Medication Refill | | 2013 | | [address]ULMONARY [address] | Ling Frazier MD | | | | | [place], | | | | | | [place] [address] | | | | | | [phone] | | | +--------+--------+ + + + [...] + | Comments: currently smoking up to 1ppd, [...]
--- OUTSIDE RECORDS SUMMARY | ~2019-02-26 | XMS | Encounter Summary ---
Demographics + + + | Address | [address] | | | [place] [address] | + + + | Home Phone [...] Author | [facility] | | | and Vargasana | + + + | Organization | [facility] | | | and Vargasana | + + + | Address | Unknown | + + + | Phone | Unavailable | + + + Support + + + + + | Name | Relationship | Address | Phone | + + + + + | Palak Aguilar | ECON | #[address] | | | | | [address] | | + + + + + Care Team Providers + +------+ + | Care Strapper Name | Role | Phone | + [...] Frazier MD | | | | | [place], | | | | | | [place] [address] | | | | | | [phone] | | | +--------+--------+ + + + [...]
--- OUTSIDE RECORDS SUMMARY | ~2019-02-26 | XMS | Encounter Summary ---
Demographics + + + | Address | [address] | | | [place] [address] | + + + | Home Phone [...] + | Author | [facility] | | | and Vargasana | + + + | Organization | [facility] | | | and Vargasana | + + + | Address | Unknown | + + + | Phone | Unavailable | + + + Support + + + + + | Name | Relationship | Address | Phone | + + + + + | Palak Aguilar | ECON | [address] | | | | | [address] | | + + + + + Care Team Providers + +------+ + | Care Time Study Statistician Name | Role | Phone | + [...] due to emphysema | | | | [place], | | ([facility]) | | | | [place] [address] | | | | | | [phone] | | | +--------+ + + + [...]
--- OUTSIDE RECORDS SUMMARY | ~2019-02-26 | XMS | Encounter Summary ---
Demographics + + + | Address | [address] | | | [place] [address] | + + + | Home Phone [...] | Author | [facility] | | | and Vargasana | + + + | Organization | [facility] | | | and Vargasana | + + + | Address | Unknown | + + + | Phone | Unavailable | + + + Support + + + + + | Name | Relationship | Address | Phone | + + + + + | Palak Aguilar | ECON | [address] | | | | | [address] | | + + + + + Care Team Providers + +------+ + | Care Business Insight And Analytics Manager Name | Role | Phone | [...] Lisa GreenwoodLeonora | | | | | [phone] | [place] [address] | | +--------+ + + + + [...]
--- OUTSIDE RECORDS SUMMARY | ~2019-02-26 | XMS | Encounter Summary ---
Demographics + + + | Address | [address] | | | [place] [address] | + + + | Home Phone [...] | Author | [facility] | | | and Vargasana | + + + | Organization | [facility] | | | and Vargasana | + + + | Address | Unknown | + + + | Phone | Unavailable | + + + Support + + + + + | Name | Relationship | Address | Phone | + + + + + | Palak Aguilar | ECON | [address] | | | | | [address] | | + + + + + Care Team Providers + +------+ + | Care Radiographer Technologist Name | Role | Phone | + [...] | +--------+ + + + + | 04/24/ | Telephone | [facility] [place] | Karlos Craig, | Results | | 2014 | | PHYSIATRY [address] | MD [address] | | | | | [place], | [place], [place] | | | | | [place] [address] | [address] | | | | | [phone] | | | +--------+ + + + [...]
--- OUTSIDE RECORDS SUMMARY | ~2019-02-26 | XMS | Encounter Summary ---
Demographics + + + | Address | [address] | | | [place] [address] | + + + | Home Phone | | + + + | Preferred Language | Unknown | + + + | Marital Status | | + + + | Yazidi Affiliation | 1061 | + + + | Race | Unknown | + + + | Ethnic Group | Unknown | + + + Author + + + | Author | [facility] | | | and Vargasana | + + + | Organization | [facility] | [...] #[address] | | | | | [address] | | + + + + + Care Team Providers + +------+ + | Care Industrial Editor Name | Role | Phone | + [...] | Karlos Gatica MD | [address] | | | | | shoulder | [address] | [place], | | | | | pain | [address] | [place] | | | | | Rotator cuff | [place], | [address] | | | | | tendonitis, | [place] [address] | Phone: | | | | | right | Phone: | [phone] | | | | | Rotator cuff | [phone] | Fax: | | | | | tear | Fax: | [phone] | | | | | arthropathy | [phone] | | | | | | of [...] | Karlos Gatica MD | [address] | | | | | shoulder | [address] | [place], | | | | | pain | [address] | [place] | | | | | Rotator cuff | [place], | [address] | | | | | tendonitis, | [place] [address] | Phone: | | | | | right | Phone: | [phone] | | | | | Rotator cuff | [phone] | Fax: | | | | | tear | Fax: | [phone] | | | | | arthropathy | [phone] | | | | | | of [...] + + + + | 04/20/ | [facility] | [facility] | Karlos Craig MD | Right shoulder pain; | | 2015 | Encounter | MED CTR MRI [address] | [address] [place] | Rotator cuff | | | | [place], | [address] [place], | tendonitis, right; | | | | [place] [address] | [place] [address] | Rotator cuff tear | | | | [phone] | [phone] | arthropathy of right | | | | | | shoulder | | | | | Karlos Craig MD | | | | | | [address] | | | | | | [place], [place] | | | | | | [address] | | | | | | | [...] | | ([facility]LY [facility]) | months | | | | [...] + | MISCELLANEOUS LAB | | | [phone] | + +---------+ + + | MISCELANIOUS LAB | | | [phone] | + +---------+ + + documented in [...]
--- OUTSIDE RECORDS SUMMARY | ~2019-02-26 | XMS | Encounter Summary ---
Demographics + + + | Address | [address] | | | [place] [address] | + + + | Home Phone [...] Author | [facility] | | | and Vargasana | + + + | Organization | [facility] | | | and Vargasana | + + + | Address | Unknown | + + + | Phone | Unavailable | + + + Support + + + + + | Name | Relationship | Address | Phone | + + + + + | Palak Aguilar | ECON | [address] | | | | | [address] | | + + + + + Care Team Providers + +------+ + | Care Plasticator Name | Role | Phone | + [...] Frazier MD | | | | | [place], | | | | | | [place] [address] | | | | | | [phone] | | | +--------+--------+ + + + [...]
--- OUTSIDE RECORDS SUMMARY | ~2019-02-26 | XMS | Encounter Summary ---
Demographics + + + | Address | [address] | | | [place] [address] | + + + | Home Phone [...] + | Author | [facility] | | | and Vargasana | + + + | Organization | [facility] [...] #[address] | | | | | [address] | | + + + + + Care Team Providers + +------+ + | Care Patternmaker Grader Name | Role | Phone | [...] Frazier MD | | | | | [place], | | | | | | [place] [address] | | | | | | [phone] | | | +--------+--------+ + + + [...]
--- OUTSIDE RECORDS SUMMARY | ~2019-02-26 | XMS | Encounter Summary ---
Demographics + + + | Address | [address] | | | [place] [address] | + + + | Home Phone [...] | Author | [facility] | | | and Vargasana | + + + | Organization | [facility] | | | and Vargasana | + + + | Address | Unknown | + + + | Phone | Unavailable | + + + Support + + + + + | Name | Relationship | Address | Phone | + + + + + | Palak Aguilar | ECON | [address] | | | | | [address] | | + + + + + Care Team Providers + +------+ + | Care Conference Center Coordinator Name | Role | Phone | [...] | 05/23/ | Telephone | [facility] [place] | Karlos Craig, | Other | | 2014 | | PHYSIATRY [address] | MD [address] | | | | | [place], | [place], [place] | | | | | [place] [address] | [address] | | | | | [phone] | | | +--------+ + + + [...]
--- OUTSIDE RECORDS SUMMARY | ~2019-02-26 | XMS | Encounter Summary ---
Demographics + + + | Address | [address] | | | [place] [address] | + + + | Home Phone | | + + + | Preferred Language | Unknown | + + + | Marital Status | | + + + | Moravian Affiliation | 1061 | + + + | Race | Unknown | + + + | Ethnic Group | Unknown | + + + Author + + + | Author | [facility] | | | and Vargasana | + + + | Organization | [facility] | | | and Vargasana | + + + | Address | Unknown | + + + | Phone | Unavailable | + + + Support + + + + + | Name | Relationship | Address | Phone | + + + + + | Palak Aguilar | ECON | [address] | | | | | [address] | | + + + + + Care Team Providers + +------+ + | Care Carton Repairer Name | Role | Phone | [...] Frazier MD | | | | | [place], | | | | | | [place] [address] | | | | | | [phone] | | | +--------+--------+ + + + [...]
--- OUTSIDE RECORDS SUMMARY | ~2019-02-26 | XMS | Encounter Summary ---
Demographics + + + | Address | [address] | | | [place] [address] | + + + | Home Phone [...] | [facility] | | | and Vargasana | + + + | Organization | [facility] | [...] #[address] | | | | | [address] | | + + + + + Care Team Providers + +------+ + | Care Continuity Editor Name | Role | Phone | + +------+ + | Jose Angel Reina MD | PCP | | + +------+ + Encounter Details +--------+ + + + + | Date | Type | Department | Care Team | Description | +--------+ + + + + | 06/17/ | Abstract | [facility] [place] | Chrissy, | | | 2015 | | PULMONARY [address] | Ling Frazier MD | | | | | [place], | | | | | | [place] [address] | | | | | | [phone] | | | +--------+ + + + [...] +--------+ + + + | EXTERNAL LAB: B TYPE | Routin | 06/06/2015 | | [...] | | bulin Ratio | | | [facility]Y | | [...] [address] | [place] | [phone] | | [facility] | | [address] | | | - LABORATORY | | [...] | 23.9 | 6.0 - 28.6 | PROVIDEGALIE | | | ine | | | [...] [address] | [place] | [phone] | | [facility] | | [address] | | | - LABORATORY | | [...]
--- OUTSIDE RECORDS SUMMARY | ~2019-02-26 | XMS | Encounter Summary ---
Demographics + + + | Address | [address] | | | [place] [address] | + + + | Home Phone [...] | Author | [facility] | | | and Vargasana | + + + | Organization | [facility] | | | and Vargasana | + + + | Address | Unknown | + + + | Phone | Unavailable | + + + Support + + + + + | Name | Relationship | Address | Phone | + + + + + | Palak Aguilar | ECON | [id number] | | | | | [address] | | + + + + + Care Team Providers + +------+ + | Care Lens Matcher Name | Role | Phone | + +------+ + PCP | Unavailable | + +------+ + Encounter Details +--------+ + + + + | Date | Type | Department | Care Team | Description | +--------+ + + + + | 04/20/ | [facility] | [facility] | Chrissy, | | | 2011 | Encounter | MED CTR GENERIC OP | Ling Frazier MD | | | | | CONV DEPT [address] | | | | | | [place], | | | | | | [place] [address] | | | | | | [phone] | | | +--------+ + + + [...]
--- OUTSIDE RECORDS SUMMARY | ~2019-02-26 | XMS | Encounter Summary ---
Demographics + + + | Address | [address] | | | [place] [address] | + + + | Home Phone | | + + + | Preferred Language | Unknown | + + + | Marital Status | Single | + + + | Mu-Ism Affiliation | Unknown | + + + | Race | Unknown | + + + | Ethnic Group | Other Race | + + + Author + + + | Author | [facility] | + + + | Organization | [facility] | + + + | Address | Unknown | + + + | Phone | Unavailable | + + + Care Team Providers + +------+ + | Care Mannequin Wig Maker Name | Role | Phone | + [...] | | | | | ataxia | [facility] | [address] | | | | | | [address] | Mailcode: | | | | | | Phone: | [address] | | | | | | [phone] | for Health | | | | | | Fax: | and Healing, | | | | | | [phone] | [address], | | | | | | | 8th Floor | | | | | | | [place], [place] | | | | | | | [address] | | | | | | | Phone: | | | | | | | [phone] | | | | | | | Fax: | | | | | | | [phone] | +--------+--------+ + + + + Encounter Details +--------+---------+ + + + | Date | Type | Department | Care Team | Description | +--------+---------+ + + + | 07/18/ | Office | Neurology at | Moisés Rudd, | 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 He lives in [place]. No one else in the family. 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 Physical Examination: Vital Signs: BP 101/73 [...] tests. Will recommend complete ataxia panel from [place] or equivalent. This will look for the [...] the capability to see return patients at [facility]. For now, we have scheduled him to [...] as outlined above 2) Follow up in [place] in 1 year - could be seen [...]
--- OUTSIDE RECORDS SUMMARY | ~2019-02-26 | XMS | Encounter Summary ---
Demographics + + + | Address | [address] | | | [place] [address] | + + + | Home Phone [...] + | Author | [facility] | | | and Vargasana | + + + | Organization | [facility] | | | and Vargasana | + + + | Address | Unknown | + + + | Phone | Unavailable | + + + Support + + + + + | Name | Relationship | Address | Phone | + + + + + | Palak Aguilar | ECON | [address] | | | | | [address] | | + + + + + Care Team Providers + +------+ + | Care Clothing Room Supervisor Name | Role | Phone | [...] + + | 02/16/ | Office | [facility] | Karlos Craig, | Lumbar spinal | | 2012 | Visit | MEDICINE | [address] | stenosis (Primary | | | | REHABIL[address] | [place] | Dx); Lumbar facet | | | | [address] [place] | [address] | arthropathy; | | | | [place] [address] | | Lumbalgia; Ataxia | | | | [phone] | | | +--------+---------+ + + + [...] medic al supply store. A consult at [facility] was been requested by Dr. Williamson, with [...] office note has been dictated. Job ID# [id number] signed by Karlos Craig MD at 02/16/2013 3:30 PM Arleen Lo RN - 02/16/2013 1:49 PM PSTPatient states he has intermittent pain to bilateral legs and lower back. Karlos Berumen MD - 02/16/2013 12:00 AM PST PHYSICAL MEDICINE AND REHAB [address] [place] [address] FAX: [phone] OFFICE VISIT PHYSICAL MEDICINE REHABILITATION PROGRESS NOTE [...] had been previously seen by neurology, Dr. Rodreick Williamson regarding h is ataxia. She suggested that he have a consult in the neurology department at [facility]. This i s still pending. When he [...] 724.2. 4. ATAXIA, ICD-9 781.3. PLAN: Mr. Bravos treatment is somewhat challenging as he has [...] of the MRI. A consult request with [facility] was replaced today so that he can have an appointment with them to evaluate and treat his ataxi a potentially. He was instructed to continue home exercise program as outlined by physical therapy on a daily basis indefinitely. Approximately 30 minutes was spent [id number] today with Mr. Aguilar over half of which w as spent formulating and discussing his medical treatment plan. Thank you for allowing me t o be involved in the care of your patient. If you have any questions regarding the care of Mr. Aguilar please do not hesitate to call. Karlos Craig Jr, MD GEM / SB JOB #: [id number] cc: Peter Reina MD documented in this [...]
--- OUTSIDE RECORDS SUMMARY | ~2019-02-26 | XMS | Encounter Summary ---
Demographics + + + | Address | [address] | | | [place] [address] | + + + | Home Phone [...] | Author | [facility] | | | and Vargasana | + + + | Organization | [facility] [...] #[address] | | | | | [address] | | + + + + + Care Team Providers + +------+ + | Care Welder Apprentice Arc Name | Role | Phone | + [...] MD | obstructive | | | | [facility], | | pulmonary disease) | | | | [place] [address] | | (Primary Dx); | | | | [phone] | | Nocturnal hypoxemia | | | [...] in this encounter Patient Instructions Patient Instructions Offenstein, Ling B, MD - 12/28/2013 1:29 PM [facility] offers free smoking cessation classes. We [...] So, don't give u p! Go Cold Machias: Most ex-smokers quit cold turkey. Trying to [...] your behavior and peer support. Call the [facility] Quitline for more information. 210-SDIZ-IWR (434-703-8000). Low-cost or free programs are offered by many hospitals, local chapters of the [place] [employer] (737-351-5997) a nd the [place] Cancer Society (195-348-3068). Support at home is important too. Non-smokers can help by offering praise and encouragement. If the smoker fails to quit, encourage them to try again! Wueb-Utc-Lispgcb Medicines: For those who can't quit on [...] such as bupropion (Zyban, Wellbutrin), varenicline (Chantix, [place] ix), a niocotine inhaler or nasal spray. [...] smoking, visit the following links: National Cancer [place] , Clearing the Air, Quit Smoking Today - an online mejias klet. http://www.smokefree.gov/pubs/clearing_the_air.pdf Smokefree.gov http://smokefree.gov/ QuitNet http://www.quitnet.com/ 3207-0490 Rudy KimbroughThe Children'S Hospital Foundation, [address] [place] [address]. All rights reserve d. This information is [...] regularly. He just finished physical therapy at [facility]. He was given e xercises to [...] of Breath. Dx: 496 RINA: 99 months Van Kinza 360 vial 4 aspirin 325 mg [...] made to ensure accuracy; however, inadvertent computerized taxicab driver errors may be pre sent. Electronically signed [...]
--- OUTSIDE RECORDS SUMMARY | ~2019-02-26 | XMS | Encounter Summary ---
Demographics + + + | Address | [address] | | | [place] [address] | + + + | Home Phone [...] Author | [facility] | | | and Vargasana | + + + | Organization | [facility] | [...] #[address] | | | | | [address] | | + + + + + Care Team Providers + +------+ + | Care Banking Services Officer Name | Role | Phone | [...] Frazier MD | | | | | [place], | | | | | | [place] [address] | | | | | | [phone] | | | +--------+--------+ + + + [...]
--- OUTSIDE RECORDS SUMMARY | ~2019-02-26 | XMS | Encounter Summary ---
Demographics + + + | Address | [address] | | | [place] [address] | + + + | Home Phone [...] + | Author | [facility] | | | and Vargasana | + + + | Organization | [facility] | | | and Vargasana | + + + | Address | Unknown | + + + | Phone | Unavailable | + + + Support + + + + + | Name | Relationship | Address | Phone | + + + + + | Palak Aguilar | ECON | [address] | | | | | [address] | | + + + + + Care Team Providers + +------+ + | Care Hydro Pneumatic Tester Name | Role | Phone | + [...] + + | 09/24/ | Office | [facility] | Offenstein, | COPD (chronic | | 2014 | Visit | PULMONARY [address] | Ling Frazier MD | obstructive | | | | [place], | | pulmonary disease) | | | | [place] [address] | | ([facility]) (Primary Dx); | | | | [phone] | | Nocturnal hypoxemia | | | | | | due to emphysema | | | | | | ([facility]); Allergic | | | | | [...] an overnight oxy gen test through [facility]. Call the [employer] before you pick it up to make sure they have a box available. You will parts picker a box at the [employer]. Do the t est on 3L. Wear [...] tomlinson on October 10 at [facility]. He has not had any [...] pace on level ground. He walks at [facility] and walks around his yard. He is not exercising regularly. He does tend to lean on the shopping cart when he walks at [facility] and in fact someone commented on [...] tablet Take 81 mg by mouth Daily. wvdbanq-wdmmezjpwvabm-tqgsxocx (HEADACHE RELIEF) 250-250-65 MG per tablet Take [...] made to ensure accuracy; however, inadvertent computerized non licensed operator errors may be pre sent. documented [...] COPD (chronic obstructive pulmonary disease) ([facility]) - Primary Chronic airway | | obstruction, not elsewhere classified | + + | Nocturnal hypoxemia due to emphysema ([facility]) Other emphysema | + + | Allergic rhinitis, unspecified allergic rhinitis type | + + | Tobacco abuse Tobacco use disorder | + + documented in this encounter
--- OUTSIDE RECORDS SUMMARY | ~2019-02-26 | XMS | Encounter Summary ---
Demographics + + + | Address | [address] | | | [place] [address] | + + + | Home Phone [...] Author | [facility] | | | and Vargasana | + + + | Organization | [facility] | | | and Vargasana | + + + | Address | Unknown | + + + | Phone | Unavailable | + + + Support + + + + + | Name | Relationship | Address | Phone | + + + + + | Palak Aguilar | ECON | [address] | | | | | [address] | | + + + + + Care Team Providers + +------+ + | Care Statistical Clerk Name | Role | Phone | [...] [place] | | | | | [phone] | [place] [address] | | +--------+ + + + + [...]
--- OUTSIDE RECORDS SUMMARY | ~2019-02-26 | XMS | Encounter Summary ---
Demographics + + + | Address | [address] | | | [place] [address] | + + + | Home Phone | | + + + | Preferred Language | Unknown | + + + | Marital Status | | + + + | Sabianist Affiliation | 1061 | + + + | Race | Unknown | + + + | Ethnic Group | Unknown | + + + Author + + + | Author | [facility] | | | and Vargasana | + + + | Organization | [facility] | | | and Vargasana | + + + | Address | Unknown | + + + | Phone | Unavailable | + + + Support + + + + + | Name | Relationship | Address | Phone | + + + + + | Palak Aguilar | ECON | [address] | | | | | [address] | | + + + + + Care Team Providers + +------+ + | Care C Consultant Name | Role | Phone | [...] PHYSIATRY [address] | MD [address] | | | | | [place], | [place], [place] | | | | | [place] [address] | [address] | | | | | [phone] | | | +--------+ + + + [...]
--- OUTSIDE RECORDS SUMMARY | ~2019-02-26 | XMS | Encounter Summary ---
Demographics + + + | Address | [address] | | | [place] [address] | + + + | Home Phone [...] | Author | [facility] | | | and Vargasana | + + + | Organization | [facility] | | | and Vargasana | + + + | Address | Unknown | + + + | Phone | Unavailable | + + + Support + + + + + | Name | Relationship | Address | Phone | + + + + + | Palak Aguilar | ECON | #[address] | | | | | [address] | | + + + + + Care Team Providers + +------+ + | Care Box Fabricator Name | Role | Phone | + +------+ + | Jose Angel Reina MD | PCP | | + +------+ + Reason for Visit +---------+ + | Reason | Comments | +---------+ + | Results | PFT performed at [facility] | +---------+ + Encounter Details +--------+ + + + + | Date | Type | Department | Care Team | Description | +--------+ + + + + | 10/21/ | Telephone | [facility] [place] | Claudia Michelle, | Results (PFT | | 2012 | | PULMONARY [address] | RN | performed at | | | | [place], | | Junior) | | | | [place] [address] | | | | | | [phone] | | | +--------+ + + + [...]
--- OUTSIDE RECORDS SUMMARY | ~2019-02-26 | XMS | Encounter Summary ---
Demographics + + + | Address | [address] | | | [place] [address] | + + + | Home Phone [...] Author | [facility] | | | and Vargasana | + + + | Organization | [facility] | | | and Vargasana | + + + | Address | Unknown | + + + | Phone | Unavailable | + + + Support + + + + + | Name | Relationship | Address | Phone | + + + + + | Palak Aguilar | ECON | [address] | | | | | [address] | | + + + + + Care Team Providers + +------+ + | Care Master At Arms Name | Role | Phone | + [...] [place] | | | | | [phone] | [place] [address] | | +--------+ + + + + [...]
--- OUTSIDE RECORDS SUMMARY | ~2019-02-26 | XMS | Encounter Summary ---
Demographics + + + | Address | [address] | | | [place] [address] | + + + | Home Phone | | + + + | Preferred Language | Unknown | + + + | Marital Status | Single | + + + | Hinduism Affiliation | Unknown | + + + | Race | Unknown | + + + | Ethnic Group | Other Race | + + + Author + + + | Author | [facility] | + + + | Organization | [facility] | + + + | Address | Unknown | + + + | Phone | Unavailable | + + + Care Team Providers + +------+ + | Care Light Rail Vehicle Operator Name | Role | Phone | + +------+ + PCP | Unavailable | + +------+ + Encounter Details +--------+ + + + + | Date | Type | Department | Care Team | Description | +--------+ + + + + | 05/02/ | Abstract | Neurology at | Clinic, Neurology | | | 2013 | | [facility] & | | | | | | [address]aling [address] | | | | | | [address] [place] Mailcode: | | | | | | [facility] | | | | | | Health and Healing, | | | | | | Building | | | | | | Floor [place], [place] | | | | | | [address] | | | | | | [phone] | | | +--------+ + + + [...]
--- OUTSIDE RECORDS SUMMARY | ~2019-02-26 | XMS | Encounter Summary ---
Demographics + + + | Address | [address] | | | [place] [address] | + + + | Home Phone [...] + | Author | [facility] | | | and Vargasana | + + + | Organization | [facility] | | | and Vargasana | + + + | Address | Unknown | + + + | Phone | Unavailable | + + + Support + + + + + | Name | Relationship | Address | Phone | + + + + + | Palak Aguilar | ECON | [address] | | | | | [address] | | + + + + + Care Team Providers + +------+ + | Care Enterprise Resource Planner Name | Role | Phone | [...] | RN | | | | | [place], | | | | | | [place] [address] | | | | | | [phone] | | | +--------+ + + + [...]
--- OUTSIDE RECORDS SUMMARY | ~2019-02-26 | XMS | Encounter Summary ---
Demographics + + + | Address | [address] | | | [place] [address] | + + + | Home Phone | | + + + | Preferred Language | Unknown | + + + | Marital Status | Single | + + + | Catholic Affiliation | Unknown | + + + | Race | Unknown | + + + | Ethnic Group | Other Race | + + + Author + + + | Author | [facility] | + + + | Organization | [facility] | + + + | Address | Unknown | + + + | Phone | Unavailable | + + + Care Team Providers + +------+ + | Care Stull Hewer Name | Role | Phone | + +------+ + PCP | Unavailable | + +------+ + Encounter Details +--------+ + + + + | Date | Type | Department | Care Team | Description | +--------+ + + + + | 03/09/ | Abstract | Neurology at | Clinic, Neurology | | | 2012 | | [facility] & | | | | | | [address]aling [address] | | | | | | [address] [place] Mailcode: | | | | | | [facility] | | | | | | Health and Healing, | | | | | | Building | | | | | | Floor [place], [place] | | | | | | [address] | | | | | | [phone] | | | +--------+ + + + [...]
--- OUTSIDE RECORDS SUMMARY | ~2019-02-26 | XMS | Encounter Summary ---
Demographics + + + | Address | [address] | | | [place] [address] | + + + | Home Phone [...] + | Author | [facility] | | | and Vargasana | + + + | Organization | [facility] | | | and Vargasana | + + + | Address | Unknown | + + + | Phone | Unavailable | + + + Support + + + + + | Name | Relationship | Address | Phone | + + + + + | Palak Aguilar | ECON | [address] | | | | | [address] | | + + + + + Care Team Providers + +------+ + | Care Spring Former Hand Name | Role | Phone | [...] [place] | | | | | [phone] | [place] [address] | | +--------+ + + + + [...]
--- OUTSIDE RECORDS SUMMARY | ~2019-02-26 | XMS | Encounter Summary ---
Demographics + + + | Address | [address] | | | [place] [address] | + + + | Home Phone [...] | Author | [facility] | | | and Vargasana | + + + | Organization | [facility] | [...] #[address] | | | | | [address] | | + + + + + Care Team Providers + +------+ + | Care Development Advisor Name | Role | Phone | + +------+ + | Jose Angel Reina MD | PCP | | + +------+ + Reason for Visit +---------+ + | Reason | Comments | +---------+ + | Results | nocturnal oximetry | +---------+ + Encounter Details +--------+ + + + + | Date | Type | Department | Care Team | Description | +--------+ + + + + | 10/04/ | Telephone | [facility] [place] | [place], | Results (nocturnal | | 2014 | | PULMONARY [address] | Ling Frazier MD | oximetry) | | | | [place], | | | | | | [place] [address] | | | | | | [phone] | | | +--------+ + + + [...] Oxygen Therapy | Respiratory | Routin | Chronic airway | 1 Occurrences | | | Care | e | obstruction, not | starting 10/04/2014 | | | | | elsewhere classified | until 10/04/2015 | | | | | (HCC) | | + + +--------+ + + documented as of this encounter Visit Diagnoses + + | Diagnosis | + + | Chronic airway obstruction, not elsewhere classified - Primary | + + documented in this encounter"
--- OUTSIDE RECORDS SUMMARY | ~2019-02-26 | XMS | Encounter Summary ---
Demographics + + + | Address | [address] | | | [place] [address] | + + + | Home Phone [...] Author | [facility] | | | and Vargasana | + + + | Organization | [facility] | | | and Vargasana | + + + | Address | Unknown | + + + | Phone | Unavailable | + + + Support + + + + + | Name | Relationship | Address | Phone | + + + + + | Palak gAuilar | ECON | [address] | | | | | [address] | | + + + + + Care Team Providers + +------+ + | Care Brass Roller Name | Role | Phone | [...] Frazier MD | | | | | [place], | | | | | | [place] [address] | | | | | | [phone] | | | +--------+--------+ + + + [...]
--- OUTSIDE RECORDS SUMMARY | ~2019-02-26 | XMS | Encounter Summary ---
Demographics + + + | Address | [address] | | | [place] [address] | + + + | Home Phone | | + + + | Preferred Language | Unknown | + + + | Marital Status | | + + + | Taoist Affiliation | 1061 | + + + | Race | Unknown | + + + | Ethnic Group | Unknown | + + + Author + + + | Author | [facility] | | | and Vargasana | + + + | Organization | [facility] | | | and Vargasana | + + + | Address | Unknown | + + + | Phone | Unavailable | + + + Support + + + + + | Name | Relationship | Address | Phone | + + + + + | Palak Aguilar | ECON | #[address] | | | | | [address] | | + + + + + Care Team Providers + +------+ + | Care Wage And Salary Administrator Name | Role | Phone | [...] | | 2013 | on | [place]UR[place] | [address] | | | | | [address] [facility], | [address], | | | | | [address] [place] | [place] [address] | | | | | [place] [address] | [phone] | | | | | [phone] | | | +--------+ + + + [...] order for MRI to [facility] at [facility] ATTN: Stephanie. d ocumented in this encounter Plan of Treatment Not on filedocumented as of this encounter Visit Diagnoses Not on filedocumented in this encounter"
--- OUTSIDE RECORDS SUMMARY | ~2019-02-26 | XMS | Encounter Summary ---
Demographics + + + | Address | [address] | | | [place] [address] | + + + | Home Phone [...] + | Author | [facility] | | | and Vargasana | + + + | Organization | [facility] | | | and Vargasana | + + + | Address | Unknown | + + + | Phone | Unavailable | + + + Support + + + + + | Name | Relationship | Address | Phone | + + + + + | Palak Aguilar | ECON | #[address] | | | | | [address] | | + + + + + Care Team Providers + +------+ + | Care Roll Cutting Operator Name | Role | Phone | [...] + | 03/05/ | Telephone | [facility] | [place], | Appointment | | 2015 | | MED CTR PULMONARY | Ling Frazier MD | | | | | FUNCTION [address] | | | | | | [place], | | | | | | [place] [address] | | | | | | [phone] | | | +--------+ + + + [...]
--- OUTSIDE RECORDS SUMMARY | ~2019-02-26 | XMS | Encounter Summary ---
Demographics + + + | Address | [address] | | | [place] [address] | + + + | Home Phone [...] Author | [facility] | | | and Vargasana | + + + | Organization | [facility] | | | and Vargasana | + + + | Address | Unknown | + + + | Phone | Unavailable | + + + Support + + + + + | Name | Relationship | Address | Phone | + + + + + | Palak Aguilar | ECON | [address] | | | | | [address] | | + + + + + Care Team Providers + +------+ + | Care Services Engineer Name | Role | Phone | [...] Frazier MD | | | | | [place], | | | | | | [place] [address] | | | | | | [phone] | | | +--------+--------+ + + + [...]
--- OUTSIDE RECORDS SUMMARY | ~2019-02-26 | XMS | Encounter Summary ---
Demographics + + + | Address | [address] | | | [place] [address] | + + + | Home Phone [...] + | Author | [facility] | | | and Vargasana | + + + | Organization | [facility] | | | and Vargasana | + + + | Address | Unknown | + + + | Phone | Unavailable | + + + Support + + + + + | Name | Relationship | Address | Phone | + + + + + | Palak Aguilar | ECON | [address] | | | | | [address] | | + + + + + Care Team Providers + +------+ + | Care Curtain Stretcher Assembler Name | Role | Phone | [...] Frazier MD | | | | | [place], | | | | | | [place] [address] | | | | | | [phone] | | | +--------+--------+ + + + [...]
--- OUTSIDE RECORDS SUMMARY | ~2019-02-26 | XMS | Encounter Summary ---
Demographics + + + | Address | [address] | | | [place] [address] | + + + | Home Phone [...] Author | [facility] | | | and Vargasana | + + + | Organization | [facility] | | | and Vargasana | + + + | Address | Unknown | + + + | Phone | Unavailable | + + + Support + + + + + | Name | Relationship | Address | Phone | + + + + + | Palak Aguilar | ECON | [address] [place] | | | | | [address] | | + + + + + Care Team Providers + +------+ + | Care Sunday [employer] Missionary Name | Role | Phone | + [...] | | | | | | [place] [address] | | | | | | [phone] | | | +--------+ + + + [...]
--- OUTSIDE RECORDS SUMMARY | ~2019-02-26 | XMS | Encounter Summary ---
Demographics + + + | Address | [address] | | | [place] [address] | + + + | Home Phone | | + + + | Preferred Language | Unknown | + + + | Marital Status | | + + + | Muslim Affiliation | 1061 | + + + | Race | Unknown | + + + | Ethnic Group | Unknown | + + + Author + + + | Author | [facility] | | | and Vargasana | + + + | Organization | [facility] | | | and Vargasana | + + + | Address | Unknown | + + + | Phone | Unavailable | + + + Support + + + + + | Name | Relationship | Address | Phone | + + + + + | Palak Aguilar | ECON | [address] | | | | | [address] | | + + + + + Care Team Providers + +------+ + | Care Advanced Practice Provider Name | Role | Phone | + +------+ + | Jose Angel Reina MD | PCP | | + +------+ + Encounter Details +--------+ + + + + | Date | Type | Department | Care Team | Description | +--------+ + + + + | 06/15/ | Imaging | [facility] | Provider, | | | 2018 | Exam | MED CTR EXTERNAL | MD [address] | | | | | IMAGING | [place] | | | | | [phone] | [place] [address] | | +--------+ + + + + [...] for comparison only - no result from [facility]. | [facility] | + + + + +---------+ + + | Performing | Address | City/State/Zipcode | Phone Number | | Organization | | | | + +---------+ + + | [facility] | | | | + +---------+ + + documented in this encounter Visit Diagnoses Not on filedocumented in this encounter"
--- OUTSIDE RECORDS SUMMARY | ~2019-02-26 | XMS | Encounter Summary ---
Demographics + + + | Address | [address] | | | [place] [address] | + + + | Home Phone | | + + + | Preferred Language | Unknown | + + + | Marital Status | | + + + | Restoration Affiliation | 1061 | + + + | Race | Unknown | + + + | Ethnic Group | Unknown | + + + Author + + + | Author | [facility] | | | and Vargasana | + + + | Organization | [facility] | | | and Vargasana | + + + | Address | Unknown | + + + | Phone | Unavailable | + + + Support + + + + + | Name | Relationship | Address | Phone | + + + + + | Palak Aguilar | ECON | [address] [place] | | | | | [address] | | + + + + + Care Team Providers + +------+ + | Care Education Supervisor Name | Role | Phone | [...] | | | | | | [place] [address] | | | | | | [phone] | | | +--------+ + + + [...]
--- OUTSIDE RECORDS SUMMARY | ~2019-02-26 | XMS | Encounter Summary ---
Demographics + + + | Address | [address] | | | [place] [address] | + + + | Home Phone [...] | [facility] | | | and Vargasana | + + + | Organization | [facility] | | | and Vargasana | + + + | Address | Unknown | + + + | Phone | Unavailable | + + + Support + + + + + | Name | Relationship | Address | Phone | + + + + + | Palak Aguilar | ECON | [address] | | | | | [address] | | + + + + + Care Team Providers + +------+ + | Care Help Desk Intern Name | Role | Phone | + [...] Frazier MD | | | | | [place], | | | | | | [place] [address] | | | | | | [phone] | | | +--------+--------+ + + + [...]
--- OUTSIDE RECORDS SUMMARY | ~2019-02-26 | XMS | Encounter Summary ---
Demographics + + + | Address | [address] | | | [place] [address] | + + + | Home Phone [...] | [facility] | | | and Vargasana | + + + | Organization | [facility] | | | and Vargasana | + + + | Address | Unknown | + + + | Phone | Unavailable | + + + Support + + + + + | Name | Relationship | Address | Phone | + + + + + | Palak Aguilar | ECON | [address] | | | | | [address] | | + + + + + Care Team Providers + +------+ + | Care Drywall Finishing Foreman Name | Role | Phone | + [...] | Solution ) | | | | [place], | | | | | | [place] [address] | | | | | | [phone] | | | +--------+ + + + [...]
--- OUTSIDE RECORDS SUMMARY | ~2019-02-26 | XMS | Encounter Summary ---
Demographics + + + | Address | [address] | | | [place] [address] | + + + | Home Phone [...] Author | [facility] | | | and Vargasana | + + + | Organization | [facility] | | | and Vargasana | + + + | Address | Unknown | + + + | Phone | Unavailable | + + + Support + + + + + | Name | Relationship | Address | Phone | + + + + + | Palak Aguilar | ECON | [address] | | | | | [address] | | + + + + + Care Team Providers + +------+ + | Care Installment Dealer Name | Role | Phone | [...] W | | | | | | [place], | | | | | | [place] [address] | | | | | | [phone] | | | +--------+ + + + [...]
--- OUTSIDE RECORDS SUMMARY | ~2019-02-26 | XMS | Encounter Summary ---
Demographics + + + | Address | [address] | | | [place] [address] | + + + | Home Phone [...] | Author | [facility] | | | and Vargasana | + + + | Organization | [facility] | | | and Vargasana | + + + | Address | Unknown | + + + | Phone | Unavailable | + + + Support + + + + + | Name | Relationship | Address | Phone | + + + + + | Palak Aguilar | ECON | [address], [place] | | | | | [address] | | + + + + + Care Team Providers + +------+ + | Care Bevel Operator Name | Role | Phone | + +------+ + PCP | Unavailable | + +------+ + Encounter Details +--------+ + + + + | Date | Type | Department | Care Team | Description | +--------+ + + + + | 01/19/ | Hospital | [facility] | | | | 2000 | Encounter | MED CTR GENERIC OP | | | | | | CONV DEPT [address] | | | | | | [place], | | | | | | [place] [address] | | | | | | [phone] | | | +--------+ + + + [...]
--- OUTSIDE RECORDS SUMMARY | ~2019-02-26 | XMS | Encounter Summary ---
Demographics + + + | Address | [address] | | | [place] [address] | + + + | Home Phone [...] | Author | [facility] | | | and Vargasana | + + + | Organization | [facility] | | | and Vargasana | + + + | Address | Unknown | + + + | Phone | Unavailable | + + + Support + + + + + | Name | Relationship | Address | Phone | + + + + + | Palak Aguilar | ECON | [address] | | | | | [address] | | + + + + + Care Team Providers + +------+ + | Care Lyric Writer Name | Role | Phone | + [...] | Karlos Gatica MD | [address] | | | | | shoulder | [address] | [place], | | | | | pain | [address] | [place] | | | | | Rotator cuff | [place], | [address] | | | | | tendonitis, | [place] [address] | Phone: | | | | | right | Phone: | [phone] | | | | | Rotator cuff | [phone] | Fax: | | | | | tear | Fax: | [phone] | | | | | arthropathy | [phone] | | | | | | of [...] | Physical | Diagnoses | Craig, | Karlos Craig | | | Services | Medicine and | Right | Karlos Gatica MD | Deion Gatica MD [address] | | | Required | Rehabilitatio | shoulder | [address] | | | | n | pain | [address] | [place], | | | | | Rotator cuff | [place], | [place] [address] | | | | | tendonitis, | [place] [address] | Phone: | | | | | right | Phone: | [phone] | | | | | | [phone] | Fax: | | | | | | Fax: | [phone] | | | | | | [phone] | | +--------+ + + + + + Reason for Visit + + + | Reason | Comments | + + + | Shoulder Pain | | + + + Encounter Details +--------+---------+ + + + | Date | Type | Department | Care Team | Description | +--------+---------+ + + + | 03/22/ | Office | [facility] [place] | Karlos Craig, | Right shoulder pain | | 2013 | Visit | PHYSIATRY [address] | MD [address] | (Primary Dx); | | | | [place], | [place], [place] | Rotator cuff | | | | [place] [address] | [address] | tendonitis, right; | | | | [phone] | | Rotator cuff tear | | [...] requested imaging. Within one week, you alexandru moran receive a call to schedule your MRI. [...] office note has been dictated. Job ID# [id number] Referring Physician: Jose Angel Reina * Diagnosis: [...] attention as well as inform my clinic. [facility], Karlos Gatica MD - 03/22/2014 12:00 AM [facility] [address] [place] [address] FAX: [phone] OFFICE VISIT PHYSICAL MEDICINE REHABILITATION PROGRESS NOTE [...] Jr, MD GEM / PAP JOB #: [id number] cc: Peter Reina MD documented in this encounter Plan of Treatment + +---------+--------+ + + | Name | [...] + | MISCELLANEOUS LAB | | | [phone] | + +---------+ + + | MISCELANIOUS LAB | | | [phone] | + +---------+ + + FL Shoulder [...] + | MISCELLANEOUS LAB | | | [phone] | + +---------+ + + | MISCELANIOUS LAB | | | [phone] | + +---------+ + + documented in [...] | methylPREDNISolone acetate | Given by | /18/20 | 40 mg | | Other | | (DEPO-MEDROL) 40 mg/mL injection | Other | 14 1:31 | | | (Comment | | 40 mg 40 mg, Intramuscular, | | PM PST | | | ) | | ONCE, [facility] 03/22/14 at 1400, For 1 | | | | | | | dose, Not for IV use., | | | | | | + + + +-------+------+ + +---+---+ | | | +---+---+ documented in this encounter
--- OUTSIDE RECORDS SUMMARY | ~2019-02-26 | XMS | Encounter Summary ---
Demographics + + + | Address | [address] | | | [place] [address] | + + + | Home Phone [...] Author | [facility] | | | and Vargasana | + + + | Organization | [facility] | | | and Vargasana | + + + | Address | Unknown | + + + | Phone | Unavailable | + + + Support + + + + + | Name | Relationship | Address | Phone | + + + + + | Palak Aguilar | ECON | [address] | | | | | [address] | | + + + + + Care Team Providers + +------+ + | Care Organ Assembler Name | Role | Phone | + +------+ + | Jose Angel Reina MD | PCP | | + +------+ + Encounter Details +--------+ + + + + | Date | Type | Department | Care Team | Description | +--------+ + + + + | 08/13/ | Abstract | [facility] [place] | Chrissy, | | | 2016 | | PULMONARY [address] | Ling Frazier MD | | | | | [place], | | | | | | [place] [address] | | | | | | [phone] | | | +--------+ + + + [...]
--- OUTSIDE RECORDS SUMMARY | ~2019-02-26 | XMS | Encounter Summary ---
Demographics + + + | Address | [address] | | | [place] [address] | + + + | Home Phone [...] | Author | [facility] | | | and Vargasana | + + + | Organization | [facility] | [...] #[address] | | | | | [address] | | + + + + + Care Team Providers + +------+ + | Care Barratte Operator Name | Role | Phone | [...] + + | 03/16/ | Office | [facility] | Karlos Craig, | Lumbar facet | | 2012 | Visit | MEDICINE | [address] | arthropathy (Primary | | | | REHABIL[address] | [place] | Dx); Lumbalgia; | | | | [address] | [address] | Tobacco dependence | | | | [place] [address] | | | | | | [phone] | | | +--------+---------+ + + + [...] Your inje ction will be performed at [facility]. Please take note of weather your pain is significantly reduced in the hours immediately following the injecti on. Return to the clinic in 5 weeks. documented in this encounter Progress Notes Karlos Craig MD - 03/16/2013 4:31 PM PSTThis office note has been dictated. Job ID# [id number] signed by Karlos Craig MD at 03/16/2013 6:20 PM Arleen Lo RN - 03/16/2013 3:46 PM PSTPatient continues to have unsteady gait, Patient using 4WW to day. Patient states 5/10 right shoulder pain. Electronically signed by VERÓNICA Swain t 03/16/2013 6:20 PM Karlos Berumen MD - 03/16/2013 12:00 AM PST PHYSICAL MEDICINE AND REHAB [address] [place] [address] FAX: [phone] OFFICE VISIT PHYSICAL MEDICINE REHABILITATION PROGRESS NOTE [...] He is encouraged to follow up with [place] as previously requested to work up, diagnose [...] call. Karlos Craig Jr, MD PURVI / FAUSTINO JOB #: [id number] cc: MD Peter Hatfield MD documented in [...]
--- OUTSIDE RECORDS SUMMARY | ~2019-02-26 | XMS | Encounter Summary ---
Demographics + + + | Address | [address] | | | [place] [address] | + + + | Home Phone [...] | Author | [facility] | | | and Vargasana | + + + | Organization | [facility] | | | and Vargasana | + + + | Address | Unknown | + + + | Phone | Unavailable | + + + Support + + + + + | Name | Relationship | Address | Phone | + + + + + | Palak Aguilar | ECON | #[address] | | | | | [address] | | + + + + + Care Team Providers + +------+ + | Care Secy Name | Role | Phone | + [...] Frazier MD | | | | | [place], | | | | | | [place] [address] | | | | | | [phone] | | | +--------+--------+ + + + [...]
--- OUTSIDE RECORDS SUMMARY | ~2019-02-26 | XMS | Encounter Summary ---
Demographics + + + | Address | [address] | | | [place] [address] | + + + | Home Phone [...] | Author | [facility] | | | and Vargasana | + + + | Organization | [facility] | | | and Vargasana | + + + | Address | Unknown | + + + | Phone | Unavailable | + + + Support + + + + + | Name | Relationship | Address | Phone | + + + + + | Palak Aguilar | ECON | [address] | | | | | [address] | | + + + + + Care Team Providers + +------+ + | Care Teletypist Name | Role | Phone | + [...] Frazier MD | | | | | [place], | | | | | | [place] [address] | | | | | | [phone] | | | +--------+--------+ + + + [...]
--- OUTSIDE RECORDS SUMMARY | ~2019-02-26 | XMS | Encounter Summary ---
Demographics + + + | Address | [address] | | | [place] [address] | + + + | Home Phone [...] | Author | [facility] | | | and Vargasana | + + + | Organization | [facility] | | | and Vargasana | + + + | Address | Unknown | + + + | Phone | Unavailable | + + + Support + + + + + | Name | Relationship | Address | Phone | + + + + + | Palak Aguilar | ECON | [id number] | | | | | [address] | | + + + + + Care Team Providers + +------+ + | Care Repairer Controller Tester Name | Role | Phone | [...] | SR | | | | | [phone] | | | +--------+ + + + [...]
--- OUTSIDE RECORDS SUMMARY | ~2019-02-26 | XMS | Encounter Summary ---
Demographics + + + | Address | [address] | | | [place] [address] | + + + | Home Phone [...] | Author | [facility] | | | and Vargasana | + + + | Organization | [facility] | | | and Vargasana | + + + | Address | Unknown | + + + | Phone | Unavailable | + + + Support + + + + + | Name | Relationship | Address | Phone | + + + + + | Palak Aguilar | ECON | #[address] | | | | | [address] | | + + + + + Care Team Providers + +------+ + | Care Barrel And Receiver Aligner Name | Role | Phone | + +------+ + | Jose Angel Reina MD | PCP | | + +------+ + Encounter Details +--------+ + + + + | Date | Type | Department | Care Team | Description | +--------+ + + + + | 06/17/ | Abstract | [facility] [place] | [place], | | | 2015 | | PULMONARY [address] | Ling Frazier MD | | | | | [place], | | | | | | [place] [address] | | | | | | [phone] | | | +--------+ + + + [...] [address] | [place] | [phone] | | [facility] | | [address] | | | - LABORATORY | | [...] [address] | [place] | [phone] | | [facility] | | [address] | | | - LABORATORY | | [...]
--- OUTSIDE RECORDS SUMMARY | ~2019-02-26 | XMS | Encounter Summary ---
Demographics + + + | Address | [address] | | | [place] [address] | + + + | Home Phone | | + + + | Preferred Language | Unknown | + + + | Marital Status | | + + + | Sikh Affiliation | 1061 | + + + | Race | Unknown | + + + | Ethnic Group | Unknown | + + + Author + + + | Author | [facility] | | | and Vargasana | + + + | Organization | [facility] | | | and Vargasana | + + + | Address | Unknown | + + + | Phone | Unavailable | + + + Support + + + + + | Name | Relationship | Address | Phone | + + + + + | Palak Aguilar | ECON | [address] | | | | | [address] | | + + + + + Care Team Providers + +------+ + | Care Marketing And Promotions Manager Name | Role | Phone | [...] Frazier MD | | | | | [place], | | | | | | [place] [address] | | | | | | [phone] | | | +--------+--------+ + + + [...]
--- OUTSIDE RECORDS SUMMARY | ~2019-02-26 | XMS | Encounter Summary ---
Demographics + + + | Address | [address] | | | [place] [address] | + + + | Home Phone [...] | [facility] | | | and Vargasana | + + + | Organization | [facility] | [...] #[address] | | | | | [address] | | + + + + + Care Team Providers + +------+ + | Care Roller Inspector Name | Role | Phone | [...] | | | | | tendonitis, | [address] | | | | | | right Right | [place], | | | | | | shoulder | [place] [address] | | | | | | pain | Phone: | | | | | | | [phone] | | | | | | | Fax: | | | | | | | [phone] | | +--------+ + + + + [...] | shoulder | [address] | | | | n | pain | [address] | [place], | | | | | Rotator cuff | [place], | [place] [address] | | | | | tendonitis, | [place] [address] | Phone: | | | | | right | Phone: | [phone] | | | | | | [phone] | Fax: | | | | | | Fax: | [phone] | | | | | | [phone] | | +--------+ + + + + + Encounter Details +--------+ + + + + | Date | Type | Department | Care Team | Description | +--------+ + + + + | 11/09/ | Procedure | [facility] [place] | Karlos Craig, | Rotator cuff | | 2013 | visit | PHYSIATRY [address] | MD [address] | tendonitis, right | | | | [address] [place], | [place], [place] | (Primary Dx); Right | | | | [place] [address] | [address] | shoulder pain | | | | [phone] | | | +--------+ + + + [...] | | | ) | | ONCE, [facility] 11/09/13 at 1600, For 1 | | | | | | | dose, Not for IV use., | | | | | | + + + +-------+------+ + +---+---+ | | | +---+---+ documented in this encounter
--- OUTSIDE RECORDS SUMMARY | ~2019-02-26 | XMS | Encounter Summary ---
Demographics + + + | Address | [address] | | | [place] [address] | + + + | Home Phone | | + + + | Preferred Language | Unknown | + + + | Marital Status | | + + + | Rastafarian Affiliation | 1061 | + + + | Race | Unknown | + + + | Ethnic Group | Unknown | + + + Author + + + | Author | [facility] | | | and Vargasana | + + + | Organization | [facility] | [...] #[address] | | | | | [address] | | + + + + + Care Team Providers + +------+ + | Care Drop Hammer Pile Driver Operator Name | Role | Phone | [...] Frazier MD | | | | | [place], | | | | | | [place] [address] | | | | | | [phone] | | | +--------+--------+ + + + [...]
--- OUTSIDE RECORDS SUMMARY | ~2019-02-26 | XMS | Encounter Summary ---
Demographics + + + | Address | [address] | | | [place] [address] | + + + | Home Phone [...] | [facility] | | | and Vargasana | + + + | Organization | [facility] | | | and Vargasana | + + + | Address | Unknown | + + + | Phone | Unavailable | + + + Support + + + + + | Name | Relationship | Address | Phone | + + + + + | Palak Aguilar | ECON | #[address] | | | | | [address] | | + + + + + Care Team Providers + +------+ + | Care Wharf Tender Name | Role | Phone | [...] Frazier MD | | | | | [place], | | | | | | [place] [address] | | | | | | [phone] | | | +--------+--------+ + + + [...]
--- OUTSIDE RECORDS SUMMARY | ~2019-02-26 | XMS | Encounter Summary ---
Demographics + + + | Address | [address] | | | [place] [address] | + + + | Home Phone [...] Author | [facility] | | | and Vargasana | + + + | Organization | [facility] | | | and Vargasana | + + + | Address | Unknown | + + + | Phone | Unavailable | + + + Support + + + + + | Name | Relationship | Address | Phone | + + + + + | Palak Aguilar | ECON | [address] | | | | | [address] | | + + + + + Care Team Providers + +------+ + | Care Tray Filler Name | Role | Phone | [...] RN | obstructive | | | | [place], | | pulmonary disease) | | | | [place] [address] | | ([facility]); Nocturnal | | | | [phone] | | hypoxemia | +--------+ + + [...]
--- OUTSIDE RECORDS SUMMARY | ~2019-02-26 | XMS | Encounter Summary ---
Demographics + + + | Address | [address] | | | [place] [address] | + + + | Home Phone [...] + | Author | [facility] | | | and Vargasana | + + + | Organization | [facility] | | | and Vargasana | + + + | Address | Unknown | + + + | Phone | Unavailable | + + + Support + + + + + | Name | Relationship | Address | Phone | + + + + + | Palak Aguilar | ECON | [address] | | | | | [address] | | + + + + + Care Team Providers + +------+ + | Care Thermodynamics Professor Name | Role | Phone | [...] Lisa GreenwoodLeonora | | | | | [phone] | [place] [address] | | +--------+ + + + + [...]
--- OUTSIDE RECORDS SUMMARY | ~2019-02-26 | XMS | Encounter Summary ---
Demographics + + + | Address | [address] | | | [place] [address] | + + + | Home Phone [...] | Author | [facility] | | | and Vargasana | + + + | Organization | [facility] | | | and Vargasana | + + + | Address | Unknown | + + + | Phone | Unavailable | + + + Support + + + + + | Name | Relationship | Address | Phone | + + + + + | Palak Aguilar | ECON | [address] | | | | | [address] | | + + + + + Care Team Providers + +------+ + | Care Personnel Arbitrator Name | Role | Phone | + [...] Lisa GreenwoodLeonora | | | | | [phone] | [place] [address] | | +--------+ + + + + [...]
--- OUTSIDE RECORDS SUMMARY | ~2019-02-26 | XMS | Encounter Summary ---
Demographics + + + | Address | [address] | | | [place] [address] | + + + | Home Phone | | + + + | Preferred Language | Unknown | + + + | Marital Status | Single | + + + | Alevism Affiliation | Unknown | + + + | Race | Unknown | + + + | Ethnic Group | Other Race | + + + Author + + + | Author | [facility] | + + + | Organization | [facility] | + + + | Address | Unknown | + + + | Phone | Unavailable | + + + Care Team Providers + +------+ + | Care Pediatric Care Coordinator Name | Role | Phone | + +------+ + PCP | Unavailable | + +------+ + Encounter Details +--------+ + + + + | Date | Type | Department | Care Team | Description | +--------+ + + + + | 02/11/ | Documentati | Neurology at | Markel Genao, | | | 2010 | on | [facility] & | MD [address] | | | | | Healing [address] | [place], [place] | | | | | [address] Mailcode: | [address] | | | | | [facility] | [phone] | | | | | Health and Healing, | | | | | | [facility] | | | | | | Organ, [place] | | | | | | [address] | | | | | | [phone] | | | +--------+ + + + [...]
--- OUTSIDE RECORDS SUMMARY | ~2019-02-26 | XMS | Encounter Summary ---
Demographics + + + | Address | [address] | | | [place] [address] | + + + | Home Phone [...] | Author | [facility] | | | and Vargasana | + + + | Organization | [facility] | | | and Vargasana | + + + | Address | Unknown | + + + | Phone | Unavailable | + + + Support + + + + + | Name | Relationship | Address | Phone | + + + + + | Palak Aguilar | ECON | [address] | | | | | [address] | | + + + + + Care Team Providers + +------+ + | Care Rn Licensed Practical Name | Role | Phone | + [...] + + | 12/21/ | Telephone | [facility] | Roderick Williamson MD [address] | Other | | 2012 | | [address]UR[address] | [address] | | | | | [address], | [address], | | | | | [address] [place] | [place] [address] | | | | | [place] [address] | [phone] | | | | | [phone] | | | +--------+ + + + [...]
--- OUTSIDE RECORDS SUMMARY | ~2019-02-26 | XMS | Encounter Summary ---
Demographics + + + | Address | [address] | | | [place] [address] | + + + | Home Phone [...] | Author | [facility] | | | and Vargasana | + + + | Organization | [facility] | | | and Vargasana | + + + | Address | Unknown | + + + | Phone | Unavailable | + + + Support + + + + + | Name | Relationship | Address | Phone | + + + + + | Palak Aguilar | ECON | [address] | | | | | [address] | | + + + + + Care Team Providers + +------+ + | Care Hook Tender Name | Role | Phone | [...] Lisa GreenwoodLeonora | | | | | [phone] | [place] [address] | | +--------+ + + + + [...] for comparison only - no result from [place]. | [facility] | + + + + +---------+ + + | Performing | Address | City/State/Zipcode | Phone Number | | Organization | | | | + +---------+ + + | [facility] | | | | + +---------+ + + documented in this encounter Visit Diagnoses Not on filedocumented in this encounter"
--- OUTSIDE RECORDS SUMMARY | ~2019-02-26 | XMS | Encounter Summary ---
Demographics + + + | Address | [address] | | | [place] [address] | + + + | Home Phone | | + + + | Preferred Language | Unknown | + + + | Marital Status | | + + + | Yazidism Affiliation | 1061 | + + + | Race | Unknown | + + + | Ethnic Group | Unknown | + + + Author + + + | Author | [facility] | | | and Vargasana | + + + | Organization | [facility] | | | and Vargasana | + + + | Address | Unknown | + + + | Phone | Unavailable | + + + Support + + + + + | Name | Relationship | Address | Phone | + + + + + | Palak Aguilar | ECON | [address] | | | | | [address] | | + + + + + Care Team Providers + +------+ + | Care Inside Sales Account Executive Name | Role | Phone | [...] | oximetry ) | | | | [place], | | | | | | [place] [address] | | | | | | [phone] | | | +--------+ + + + [...]
--- OUTSIDE RECORDS SUMMARY | ~2019-02-26 | XMS | Encounter Summary ---
Demographics + + + | Address | [address] | | | [place] [address] | + + + | Home Phone [...] + | Author | [facility] | | | and Vargasana | + + + | Organization | [facility] | | | and Vargasana | + + + | Address | Unknown | + + + | Phone | Unavailable | + + + Support + + + + + | Name | Relationship | Address | Phone | + + + + + | Palak Aguilar | ECON | [address] | | | | | [address] | | + + + + + Care Team Providers + +------+ + | Care Day Care Home Mother Name | Role | Phone | + [...] | Physical | Diagnoses | Craig, | [facility] | | | Services | Therapy | Lumbar | Karlos Gatica MD | Pt Acute | | | Required | | facet | [address] | | | | | arthropathy | [address] | [place], | | | | | Lumbalgia | [place], | [place] | | | | | [place] | [place] [address] | [address] | | | | | | Phone: | Phone: | | | | | | [phone] | [phone] | | | | | | Fax: | Fax: | | | | | | [phone] | [phone] | +--------+ + + + + + Reason for Visit + + + | Reason | Comments | + + + | Back Pain | no pain at this time | + + + Encounter Details +--------+---------+ + + + | Date | Type | Department | Care Team | Description | +--------+---------+ + + + | 04/27/ | Office | [facility] | Karlos Craig, | Lumbar facet | | 2013 | Visit | MEDICINE | MD [address] | arthropathy (Primary | | | | REH[address] | [place] | Dx); Lumbalgia; | | | | [address] [place] | [address] | Ataxia; Right | | | | [place] [address] | | shoulder pain | | | | [phone] | | | +--------+---------+ + + + [...] + | Blood Pressure | 130/78 | 04/27/2013 1:06 PM | | | | | PST | | + + + + + | Pulse | 72 | 04/27/2013 1:06 PM | | | | | PST | | + + + + + | Temperature | - | - | | + + + + + | Respiratory Rate | 16 | 04/27/2013 1:06 PM | | | | | PST | | + + + + + | Oxygen Saturation | - | - | | + + + + + | Inhaled Oxygen | - | - | | | Concentration | | | | + + + + + | Weight | 101.2 kg (223 lb) | 04/27/2013 1:06 PM | | | | | PST | | + + + + + | Height | 175.3 cm (5' 9") | 04/27/2013 1:06 PM | | | | | PST | | + + + + + | Body Mass Index | 32.93 | 04/27/2013 1:06 PM | | | | | PST | | + + + + + documented in this encounter Patient Instructions Patient Instructions Karlos Craig MD - 04/27/2013 1:41 PM PSTIf you shoulder pain is m ore bothersome in the future, please let Dr. Craig know. Physical therapy has been prescribed. Please participate in physical therapy. If you have not be contacted for an appointment with physical therapy within one week, please contact [facility]. Once you have completed physical therapy please continue the home exercise progr am as outline by physical therapy, indefinitely. Resume the home exercises as outlined by physical therapy. Please be seen at [facility] regarding you ataxia. We may consider repeat injections in the future for pain control, up to 3-4 times per year. Return to the clinic in 2-3 months.Electronically signed by Karlos Craig MD at 4 1:43 PM PST documented in this encounter Progress Notes Karlos Craig MD - 04/27/2013 1:45 PM PSTThis office note has been dictated. Job ID# [id number] signed by Karlos Craig MD at 04/27/2013 2:15 PM Arleen Lo RN - 04/27/2013 1:07 PM PSTPatient in clinic for follow up after injection, no pain at t his time. Karlos Berumen MD - 04/27/2013 12:00 AM PST [facility] [address] [place] [address] FAX: [phone] OFFICE VISIT CONSULT REQUESTED BY: Ling Lowe MD PRIMARY CARE PROVIDER: Jose Angel Reina MD DATE OF SERVICE: 04/27/2013 PATIENT IDENTIFICATION: A 62-year-old male with history of low back pain and lumbar facet arthritis. Also, with complaint of right shoulder pain. HISTORY OF PRESENT ILLNESS: Mr. Aguilar was last seen by me March 16, 2013. At that time , it was felt that he primarily had lumbar facet arthritis. He was sent for diagnostic and therapeutic bilateral L4-5 and L5-S1 and facet steroid injections for lumbar facet arthriti s. He returns to clinic today to review management of his symptoms. He had the injections approximately one week ago. He indicates that after the injections, his back pain is completely resolved. He indicates that his current back pain is a 0/10 on a numerical pain scale. He has no low back pain at this time. He indicates that his back pain has been absent since having lumbar facet steroi d injections. He indicates that he has no numbness, paresthesia or weakness in either lower extremity. He denies bowel or bladder incontinence. He indicates that he is not doing home exercise program as previously established by Physical Therapy. He still not been seen at [facility] as recommended by a neurologist, Dr. Roderick Williamson, to evaluate and treat his ataxia. He has new complaint of right shoulder pain. He indicates that the pain is a 5/10 on a num erical pain scale. He indicates the pain is intermittent. He indicates the pain is dull. He indicates that he has pain 4 to 5 days per week. He indicates that when pain occurs, it las ts anywhere from hours to a whole day. He indicates that pain occurs with right shoulder mo vement. He indicates that the pain is brought on by right shoulder forward flexion and abdu ction. He has not found any specific thing that alleviates the pain other than just the pas manuel of time. ALLERGIES 1. LEVAQUIN. 2. CHANTIX. CURRENT MEDICATIONS 1. Tylenol. 2. Albuterol. 3. Aspirin. 4. Lipitor 40 mg daily. 5. Carbamazepine 200 mg 4 times daily. 6. Vitamin B12. 7. Valium. 8. Flonase. 9. Lisinopril 25 mg daily. 10. Glucophage 500 mg 2 times daily. 11. Spiriva inhaler. 12. Daliresp 500 mcg 1 tablet daily. REVIEW OF SYSTEMS: Mr. Aguilar denies nausea, vomiting, fever, chills, chest pain. He does have some shortness of breath at times. He denies skin breakdown or rash. He denies inconti nence of bowel or bladder. Denies numbness, paresthesia or weakness in either lower extremi ty. All other review of systems negative. PHYSICAL EXAMINATION VITAL SIGNS: Heart rate 72, respiratory rate 16, blood pressure 130/78, weight 223 pounds, height 5 feet 9 inches. GENERAL: No acute distress. Alert and oriented to person, place, time and situation. HEENT : Extraocular muscles intact. Sclerae clear. NECK: Limited range of motion. Spurling's test negative. EXTREMITIES: Exam reveals no club tasia, cyanosis or edema. Right shoulder examination demonstrates impingement signs positive . Empty cans and full cans test equivocal. Drop arm test negative. Cross arm abduction test negative. Speed's and Yergason tests negative in right shoulder. Apley scratch test positi ve on the right. BACK: Examination demonstrates no focal tenderness. Lumbar facet loading results in some mi ld discomfort. Seated straight leg raise negative. NEUROLOGICAL: Exam demonstrates normal strength in lower extremities. Sensation intact in l ower extremities. There are ataxic movements noted during gait as well as with rkfudh-qw-ot se testing in upper extremities. Speech is mildly tremulous. ASSESSMENT 1. LUMBAR FACET ARTHRITIS AT BILATERAL L4-5 AND L5-S1 - IMPROVED, ICD-9 721.3. 2. LUMBALG IA - IMPROVED, ICD-9 724.2. 3. ATAXIA ICD-9 781.3. 4. INTERMITTENT RIGHT SHOULDER PAIN, ICD-9 719.41. PLAN: In regard to right shoulder pain, Mr. Aguilar was asked whether or not it was botheri ng him enough for us to warrant doing further workup or evaluation. He declines any further treatment for his right shoulder at this time. He indicates that he simply brought up some of his right shoulder pain so I would be aware of it. He indicates that further treatment is not warranted or needed. He indicates that current pain is minimally bothersome. He ind icates that pain is tolerable. He indicates that it is intermittent and, in his mind, rare. He is not interested in therapy for the shoulder, medication for the shoulder, injection f or the shoulder, x-rays, etc. He indicates if symptoms bother him more in the future, that he will let me know about his shoulder pain. In regards to back pain, lumbar facet steroid injections have given him excellent pain reli ef. We discussed that they can be repeated up to 3 times per year as needed if pain returns . We discussed that we will not even consider repeating injections until several months hav e gone by. He is asked to resume home exercise program as outlined by Physical Therapy. He indicates that he does not recall any of the exercises. He will have a short course of phys ical therapy one time a week for 4 weeks in order to reeducate him and remind about his enrique e exercise program. He was encouraged to do a home exercise program on a daily basis. He wi ll return to the clinic in 10 weeks' time to review his response to therapy, recheck his ri ght shoulder pain , and discuss whether or not repeat lumbar facet steroid injections are n eeded to manage his back pain. Approximately 25 minutes was spent nhni-tn-ebfv today with Mr. Aguilar, over half of which was spent formulating and discussing his medical treatment plan. Thank you for allowing me to be involved in the care of your the patient. If you have any questions regarding the care of Mr. Aguilar, please do not hesitate to call. Karlos Craig Jr, MD GEM / AF JOB #: [id number] cc: Peter Reina MD documented in this encounter Plan of Treatment + + +--------+ + + | Name | Type | Priori | Associated Diagnoses | Order Schedule | | | | ty | | | + + +--------+ + + | Ambulatory referral | Outpatient | Routin | Lumbar facet | 1 Occurrences | | to Physical Therapy | Referral | e | arthropathy | starting 04/27/2013 | | | | | Lumbalgia Ataxia | until 04/27/2014 | + + +--------+ + + documented as of this encounter Visit Diagnoses + + | Diagnosis | + + | Lumbar facet arthropathy - Primary Lumbosacral spondylosis without myelopathy | + + | Lumbalgia Lumbago | + + | Ataxia Lack of coordination | + + | Right shoulder pain Pain in joint, shoulder region | + + documented in this encounter
--- OUTSIDE RECORDS SUMMARY | ~2019-02-26 | XMS | Encounter Summary ---
Demographics + + + | Address | [address] | | | [place] [address] | + + + | Home Phone [...] + | Author | [facility] | | | and Vargasana | + + + | Organization | [facility] | | | and Vargasana | + + + | Address | Unknown | + + + | Phone | Unavailable | + + + Support + + + + + | Name | Relationship | Address | Phone | + + + + + | Palak Aguilar | ECON | [address] | | | | | [address] | | + + + + + Care Team Providers + +------+ + | Care Career And Technology Education Teacher Name | Role | Phone [...] + + | 01/18/ | Office | [facility] [place] | [place], | COPD (chronic | | 2011 | Visit | PULMONARY [address] | Ling Frazier MD | obstructive | | | | [place], | | pulmonary disease) | | | | [place] [address] | | (HCC) (Primary Dx); | | | | [phone] | | Hypoxemia; Periodic | | | [...] nd it. Keep your chin up. 3. [place] 1 puff into the spacer by pressing [...] your mouth.) 3. Keep your chin up. [place] 1 puff by pressing down on the [...] store it in a dry p lace. 2102-0011 [facility], [address] [place] [address], [place] [address]. All rights reserve d. This information is [...] be interested in doing physical therapy at [facility]. He does not cough chronically, and [...] We will continue. Needs flu shot - [place] FLU VACCINE =>3YO PRESERVATIVE FREE IM Need [...] for prophylactic vaccination with combined | | wnfmwhpcpt-mqweqta-gltkjkztz (DTP) vaccine | + + documented in this encounter
--- OUTSIDE RECORDS SUMMARY | ~2019-02-26 | XMS | Encounter Summary ---
Demographics + + + | Address | [address] | | | [place] [address] | + + + | Home Phone [...] Author | [facility] | | | and Vargasana | + + + | Organization | [facility] | | | and Vargasana | + + + | Address | Unknown | + + + | Phone | Unavailable | + + + Support + + + + + | Name | Relationship | Address | Phone | + + + + + | Palak Aguilar | ECON | [address] | | | | | [address] | | + + + + + Care Team Providers + +------+ + | Care Manager Php Name | Role | Phone | + [...] | 07/06/ | Refill | [facility] | Karlos Craig, | Medication Refill | | 2013 | | MEDICINE | MD [address] | | | | | [address] | [place], [place] | | | | | [address] [place] | [address] | | | | | [place] [address] | | | | | | [phone] | | | +--------+--------+ + + + [...]
--- OUTSIDE RECORDS SUMMARY | ~2019-02-26 | XMS | Encounter Summary ---
Demographics + + + | Address | [address] | | | [place] [address] | + + + | Home Phone [...] + | Author | [facility] | | | and Vargasana | + + + | Organization | [facility] | | | and Vargasana | + + + | Address | Unknown | + + + | Phone | Unavailable | + + + Support + + + + + | Name | Relationship | Address | Phone | + + + + + | Palak Aguilar | ECON | [address] [place] | | | | | [address] | | + + + + + Care Team Providers + +------+ + | Care Professional Bass Fisherman Name | Role | Phone | + [...] facet | [address] | | | | | arthropathy | [address] | [place], | | | | | Lumbalgia | [place], | [place] | | | | | [place] | [place] [address] | [address] | | | | | | Phone: | Phone: | | | | | | [phone] | [phone] | | | | | | Fax: | Fax: | | | | | | [phone] | [phone] | +--------+ + + + + + Reason for Visit + + + | Reason | Comments | + + + | Back Pain | no pain at this time | + + + Encounter Details +--------+---------+ + + + | Date | Type | Department | Care Team | Description | +--------+---------+ + + + | 04/27/ | Office | [facility]ICAL | Karlos Craig, | Lumbar facet | | 2013 | Visit | MEDICINE | MD [address] | arthropathy (Primary | | | | REH[address] | [place] | Dx); Lumbalgia; | | | | [address] [place] | [address] | Ataxia; Right | | | | [place] [address] | | shoulder pain | | | | [phone] | | | +--------+---------+ + + + [...] physical therapy within one week, please contact [facility]. Once you have completed physical therapy please continue the home exercise progr am as outline by physical therapy, indefinitely. Resume the home exercises as outlined by physical therapy. Please be seen at [facility] regarding you ataxia. We may consider repeat injections in the future for pain control, up to 3-4 times per year. Return to the clinic in 2-3 months.Electronically signed by Karlos Craig MD at 4 1:43 PM PST documented in this encounter Progress Notes Karlos Craig MD - 04/27/2013 1:45 PM PSTThis office note has been dictated. Job ID# [id number] signed by Karlos Craig MD at 04/27/2013 2:15 PM Arleen Lo RN - 04/27/2013 1:07 PM PSTPatient in clinic for follow up after injection, no pain at t his time. Karlos Berumen MD - 04/27/2013 12:00 AM PST PHYSICAL MEDICINE AND REHAB [address] [place] [address] FAX: [phone] OFFICE VISIT CONSULT REQUESTED BY: Ling Lowe [...] Therapy. He still not been seen at [facility] as recommended by a neurologist, Dr. Roderick [...] noted during gait as well as with rmjvry-ec-og se testing in upper extremities. Speech is [...] back pain. Approximately 25 minutes was spent qbqa-hx-bfjw today with Mr. Aguilar, over half of which was spent formulating and discussing his medical treatment plan. Thank you for allowing me to be involved in the care of your the patient. If you have any questions regarding the care of Mr. Aguilar, please do not hesitate to call. Karlos Craig Jr, MD GEM / AF JOB #: [id number] cc: Peter Reina MD documented in this [...]
--- OUTSIDE RECORDS SUMMARY | ~2019-02-26 | XMS | Encounter Summary ---
Demographics + + + | Address | [address] | | | [place] [address] | + + + | Home Phone | | + + + | Preferred Language | Unknown | + + + | Marital Status | | + + + | Christianity Affiliation | 1061 | + + + | Race | Unknown | + + + | Ethnic Group | Unknown | + + + Author + + + | Author | [facility] | | | and Vargasana | + + + | Organization | [facility] | [...] #[address] | | | | | [address] | | + + + + + Care Team Providers + +------+ + | Care Dump Truck Driver Name | Role | Phone | [...] + | 07/14/ | Office | [facility] | [place], | Chronic obstructive | | 2015 | Visit | PULMONARY [address] | Ling Frazier MD | pulmonary disease, | | | | [place], | | unspecified COPD | | | | [place] [address] | | type ([facility]); | | | | [phone] | | Nocturnal hypoxemia | | | | | | due to emphysema | | | | | | ([facility]); Tobacco | | | | [...] [facility]. [facility] [...] [facility]. He reports good compliance. He did his [...] made to ensure accuracy; however, inadvertent computerized technical operator errors may be pre sent. documented [...]
--- OUTSIDE RECORDS SUMMARY | ~2019-02-26 | XMS | Encounter Summary ---
Demographics + + + | Address | [address] | | | [place] [address] | + + + | Home Phone [...] | Author | [facility] | | | and Vargasana | + + + | Organization | [facility] | | | and Vargasana | + + + | Address | Unknown | + + + | Phone | Unavailable | + + + Support + + + + + | Name | Relationship | Address | Phone | + + + + + | Palak Daugherty | ECON | [address] | | | | | [address] | | + + + + + Care Team Providers + +------+ + | Care Cis Coordinator Name | Role | Phone | [...] | Karlos Gatica MD | [address] | | | | | spinal | [address] | [place], | | | | | stenosis | [address] | [place] | | | | | Facet | [place], | [address] | | | | | arthritis of | [place] [address] | Phone: | | | | | lumbar | Phone: | [phone] | | | | | region | [phone] | Fax: | | | | | Lumbalgia | Fax: | [phone] | | | | | Procedures | [phone] | | | | | | MRI Lumbar | | | | | | | Spine wo | | | | | | | Contrast | | | +--------+--------+ + + + + Encounter Details +--------+ + + + + | Date | Type | Department | Care Team | Description | +--------+ + + + + | 02/22/ | Hospital | [facility] | Karlos Craig, | Lumbar spinal | | 2012 | Encounter | MED CTR XRAY [address] | [address] | stenosis; Facet | | | | [address] [place] | [place], [place] | arthritis of lumbar | | | | [place] [address] | [address] | region; Lumbalgia | | | | [phone] | | | +--------+ + + + [...] Performed At | + + + | [facility] | [place] | | Department [facility] [place] | [facility] | | [ rep ct street[address]] [ rep ct [facility] | [facility] | | st zip] Signed | - IMAGING | | | | | Patient Name: KEVIN DAUGHERTY SR | | | Physician: ROBINA : 1950 Age: 62 Sex: M Unit | | | #: [id number] Exam Date: 02/22/13 Location: | | | [facility] Report #: [id number] Page: | | | %(RAD)RES..mtdd.print.filter("pg") of %(RAD) | | | RES..mtdd.print.filter("tpg") | | | | | | Accession Number: [id number] | | | LUMBAR SPINE WITHOUT CONTRAST CLINICAL HISTORY: CHRONIC | | | LOW BACK PAIN WITH RADIATION TO BOTH LEGS. WEAKNESS. | | | COMPARISON: Lumbar spine radiograph dated 12/08/2012 from [facility] | | | [facility]. TECHNIQUE: Multiplanar, | | | [...] Transcribed Date/Time: 02/22/2013 | | | 18:05 Complaint Evaluation Supervisor: <<Signature on | | | File>> | | | Yared | | | Monica Diaz MD02/22/132110 <Electronically signed by Yared Anderson | | | Joe ARIAS> Yared Diaz MD 02/22/13 4894 | | | Complaint Evaluation Supervisor: [employer] Jhxbupmwkowgn12/20/13 5798 | | | Karlos Craig Jr, MD | | + + + + + + + + | Performing | Address | City/State/Zipcode | Phone Number | | Organization | | | | + + + + + | [address] | [address] | [place] | [phone] | | [facility] | | [address] | | | - IMAGING | | [...]
--- OUTSIDE RECORDS SUMMARY | ~2019-02-26 | XMS | Encounter Summary ---
Demographics + + + | Address | [address] | | | [place] [address] | + + + | Home Phone [...] | [facility] | | | and Vargasana | + + + | Organization | [facility] | | | and Vargasana | + + + | Address | Unknown | + + + | Phone | Unavailable | + + + Support + + + + + | Name | Relationship | Address | Phone | + + + + + | Palak Daugherty | ECON | [address] | | | | | [address] | | + + + + + Care Team Providers + +------+ + | Care Waste/Materials Exchange Specialist Name | Role | Phone | [...] | Specialty | Physical | Diagnoses | Fonseca, | | | | Services | Therapy | Right | Karlos Gatica MD | | | | Required | | shoulder | [address] | | | | | | pain | [address] | | | | | | Rotator cuff | [place], | | | | | | tear | [place] [address] | | | | | | arthropathy | Phone: | | | | | | of right | [phone] | | | | | | shoulder | Fax: | | | | | | | [phone] | | +--------+ + + + + + Reason for Visit + + + | Reason | Comments | + + + | Shoulder Pain | | + + + Encounter Details +--------+---------+ + + + | Date | Type | Department | Care Team | Description | +--------+---------+ + + + | 02/06/ | Office | [facility] | Karlos Fonseca, | Right shoulder pain | | 2015 | Visit | PHYSIATRY [address] | MD [address] | (Primary Dx); | | | | [place], | [place], [place] | Rotator cuff tear | | | | [place] [address] | [address] | arthropathy of right | | | | [phone] | | shoulder | +--------+---------+ + + + Social History [...] Instructions Patient Instructions Karlos Fonseca MD - 05/11/2014 12:53 PM PSTPhysical therapy [...] encounter Progress Notes Karlos Fonseca MD - 05/11/2014 2:25 PM PST [facility] [address] [facility] [address] OFFICE NOTE KARLOS FONSECA JR, MD Patient: KEVIN DAUGHERTY Admitting: MR #: [id number] LOC: PT TYPE: Adm Date: 05/11/2014 : 1950 PROGRESS NOTE DATE OF : 1950 PRIMARY CARE PROVIDER: Jose Angel Fields MD DATE OF SERVICE: 05/11/2014 PATIENT [...] ALLERGIES: LEVOFLOXACIN and CHANTIX. CURRENT MEDICATIONS: Albuterol. Tygmyak-vausrdhzykmzp-zcavjycy. Lipitor. Carbamazepine. Vitamin B12. Valium. Flonase. Advair [...] MD Dictated by KARLOS FONSECA JR, MD 05/11/2014 14:25:03 Transcribed on 05/12/2014 03:00:15 by lo job# [id number] Confirmation #: [id number] cc: JOSE ANGEL FIELDS MD 9:1 0 AM PSTKarlos Fonseca MD - 05/11/2014 12:54 PM PSTThis office note has been dictated. Job ID# [id number] signed by Karlos Fonseca MD at 05/11/2014 2:25 PM Arleen oL RN - 05/11/2014 12:48 PM PSTPatient states [...]
--- OUTSIDE RECORDS SUMMARY | ~2019-02-26 | XMS | Encounter Summary ---
Demographics + + + | Address | [address] | | | [place] [address] | + + + | Home Phone [...] Author | [facility] | | | and Vargasana | + + + | Organization | [facility] | [...] #[address] | | | | | [address] | | + + + + + Care Team Providers + +------+ + | Care Bus Trolley And Taxi Instructor Name | Role | Phone | + [...] + + | 03/16/ | Office | [facility] | Karlos Craig, | Lumbar facet | | 2012 | Visit | MEDICINE | [address] | arthropathy (Primary | | | | REHABILITATION [address] | [place] | Dx); Lumbalgia; | | | | [address] | [address] | Tobacco dependence | | | | [place] [address] | | | | | | [phone] | | | +--------+---------+ + + + [...] inje ction will be performed at [facility]. Please take note of weather your pain is significantly reduced in the hours immediately following the injecti on. Return to the clinic in 5 weeks. documented in this encounter Progress Notes Karlos Craig MD - 03/16/2013 4:31 PM PSTThis office note has been dictated. Job ID# [id number] signed by Karlos Craig MD at 03/16/2013 6:20 PM Arleen Lo RN - 03/16/2013 3:46 PM PSTPatient continues to have unsteady gait, Patient using 4WW to day. Patient states 5/10 right shoulder pain. Electronically signed by VERÓNICA Swain t 03/16/2013 6:20 PM Karlos Berumen MD - 03/16/2013 12:00 AM PST PHYSICAL MEDICINE AND REHAB [address] [place] [address] FAX: [phone] OFFICE VISIT PHYSICAL MEDICINE REHABILITATION PROGRESS NOTE [...] Jr, MD PURVI / FAUSTINO JOB #: [id number] cc: MD Peter Hatfield MD documented in [...]
--- OUTSIDE RECORDS SUMMARY | ~2019-02-26 | XMS | Encounter Summary ---
Demographics + + + | Address | [address] | | | [place] [address] | + + + | Home Phone | | + + + | Preferred Language | Unknown | + + + | Marital Status | Single | + + + | Christian Affiliation | Unknown | + + + | Race | Unknown | + + + | Ethnic Group | Other Race | + + + Author + + + | Author | [facility] | + + + | Organization | [facility] | + + + | Address | Unknown | + + + | Phone | Unavailable | + + + Care Team Providers + +------+ + | Care Garment Mender Name | Role | Phone | + [...] Research | | | | | | Swengel | Swengel | | | | | | [place], [place] | [place], [place] | | | | | | [address] | [address] | | | | | | Phone: | Phone: | | | | | | [phone] | [phone] | | | | | | Fax: | Fax: | | | | | | [phone] | [phone] | +--------+--------+ + + + + Encounter Details +--------+ + + + + | Date | Type | Department | Care Team | Description | +--------+ + + + + | 02/03/ | Outside | Neurophysiology | Faisal Kebede | | | 2010 | Referral | EEG at [facility] [address] | MD ELIE Walls | | | | Order | [facility] | [facility] | | | | | Mailcode: CR120 | [address] [facility] | | | | | [facility] | [place], [place] | | | | | [place], [place] | [address] | | | | | [address] | [phone] | | | | | [phone] | | | +--------+ + + + [...] 01/30/2011 Place | | | of Service: [facility] Department: EEG [facility] - [id number] | | | ROUTINE EEG this is [...]
--- OUTSIDE RECORDS SUMMARY | ~2019-02-26 | XMS | Encounter Summary ---
Demographics + + + | Address | [address] | | | [place] [address] | + + + | Home Phone [...] + | Author | [facility] | | | and Vargasana | + + + | Organization | [facility] | | | and Vargasana | + + + | Address | Unknown | + + + | Phone | Unavailable | + + + Support + + + + + | Name | Relationship | Address | Phone | + + + + + | Palak Aguilar | ECON | #[address] | | | | | [address] | | + + + + + Care Team Providers + +------+ + | Care Obstetrician Gynecologist Name | Role | Phone | + [...] Frazier MD | | | | | [place], | | | | | | [place] [address] | | | | | | [phone] | | | +--------+--------+ + + + [...]
--- OUTSIDE RECORDS SUMMARY | ~2019-02-26 | XMS | Encounter Summary ---
Demographics + + + | Address | [address] | | | [place] [address] | + + + | Home Phone | | + + + | Preferred Language | Unknown | + + + | Marital Status | | + + + | Protestant Affiliation | 1061 | + + + | Race | Unknown | + + + | Ethnic Group | Unknown | + + + Author + + + | Author | [facility] | | | and Vargasana | + + + | Organization | [facility] | | | and Vargasana | + + + | Address | Unknown | + + + | Phone | Unavailable | + + + Support + + + + + | Name | Relationship | Address | Phone | + + + + + | Palak Aguilar | ECON | #[address] | | | | | [address] | | + + + + + Care Team Providers + +------+ + | Care Molding Machine Setter Name | Role | Phone [...] + + | 07/14/ | Office | [facility] | Offenstein, | Chronic obstructive | | 2015 | Visit | PULMONARY [address] | Ling Frazier MD | pulmonary disease, | | | | [place], | | unspecified COPD | | | | [place] [address] | | type ([facility]); | | | | [phone] | | 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 documented in this encounter Progress Notes Lnig Lowe MD - 07/15/2015 1:25 PM PDTFormatting of this note might be differe nt from the original. Pulmonary Follow Up HPI Nazario Aguilar Sr. is a 64 y.o. male [facility]. [...] [place]. He reports good compliance. He did his [...] made to ensure accuracy; however, inadvertent computerized route inspector errors may be pre sent. documented in [...]
--- OUTSIDE RECORDS SUMMARY | ~2019-02-26 | XMS | Encounter Summary ---
Demographics + + + | Address | [address] | | | [place] [address] | + + + | Home Phone [...] + | Author | [facility] | | | and Vargasana | + + + | Organization | [facility] | | | and Vargasana | + + + | Address | Unknown | + + + | Phone | Unavailable | + + + Support + + + + + | Name | Relationship | Address | Phone | + + + + + | Palak Aguilar | ECON | #[address] | | | | | [address] | | + + + + + Care Team Providers + +------+ + | Care Branding Specialist Name | Role | Phone | [...] + | 12/21/ | Telephone | [facility] | Roderick Williamson MD [address] | Other | | 2012 | | NEUROLOGY SINGER | [address] | | | | | [address], | [address], | | | | | [address] [place] | [place] [address] | | | | | [place] [address] | [phone] | | | | | [phone] | | | +--------+ + + + [...]
--- OUTSIDE RECORDS SUMMARY | ~2019-02-26 | XMS | Encounter Summary ---
Demographics + + + | Address | [address] | | | [place] [address] | + + + | Home Phone [...] | Author | [facility] | | | and Vargasana | + + + | Organization | [facility] | [...] #[address] | | | | | [address] | | + + + + + Care Team Providers + +------+ + | Care Inspector Exhaust Emissions Name | Role | Phone | + [...] Frazier MD | | | | | [place], | | | | | | [place] [address] | | | | | | [phone] | | | +--------+--------+ + + + [...]
--- OUTSIDE RECORDS SUMMARY | ~2019-02-26 | XMS | Encounter Summary ---
Demographics + + + | Address | [address] | | | [place] [address] | + + + | Home Phone [...] | Author | [facility] | | | and Vargasana | + + + | Organization | [facility] [...] #[address] | | | | | [address] | | + + + + + Care Team Providers + +------+ + | Care Donor Relations Coordinator Name | Role | Phone | [...] [place] | | | | | [phone] | [place] [address] | | +--------+ + + + + [...]
--- OUTSIDE RECORDS SUMMARY | ~2019-02-26 | XMS | Encounter Summary ---
Demographics + + + | Address | [address] | | | [place] [address] | + + + | Home Phone [...] + | Author | [facility] | | | and Vargasana | + + + | Organization | [facility] | | | and Vargasana | + + + | Address | Unknown | + + + | Phone | Unavailable | + + + Support + + + + + | Name | Relationship | Address | Phone | + + + + + | Palak Daugherty | ECON | #[address] | | | | | [address] | | + + + + + Care Team Providers + +------+ + | Care Calciner Operator Name | Role | Phone | [...] | | | | | pain | [address] | | | | | | Rotator cuff | [place], | | | | | | tear | [place] [address] | | | | | | arthropathy | Phone: | | | | | | of right | [phone] | | | | | | shoulder | Fax: | | | | | | | [phone] | | +--------+ + + + + + Reason for Visit + + + | Reason | Comments | + + + | Shoulder Pain | | + + + Encounter Details +--------+---------+ + + + | Date | Type | Department | Care Team | Description | +--------+---------+ + + + | 02/06/ | Office | [facility] | Karlos Fonseca, | Right shoulder pain | | 2015 | Visit | PHYSIATRY [address] | MD [address] | (Primary Dx); | | | | [place], | [place], [place] | Rotator cuff tear | | | | [place] [address] | [address] | arthropathy of right | | | | [phone] | | shoulder | +--------+---------+ + + [...] MD - 05/11/2014 2:25 PM PST [facility] PHYSIATRY [address] [facility] [address] OFFICE NOTE KARLOS FONSECA JR, MD Patient: KEVIN DAUGHERTY Admitting: MR #: [id number] LOC: PT TYPE: Adm Date: 05/11/2014 : [...] ALLERGIES: LEVOFLOXACIN and CHANTIX. CURRENT MEDICATIONS: Albuterol. Yvpmwvl-kndxmjtfobdoh-nyihlbkk. Lipitor. Carbamazepine. Vitamin B12. Valium. Flonase. Advair [...] Transcribed on 05/12/2014 03:00:15 by lo job# [id number] Confirmation #: [id number] cc: JOSE ANGEL FIELDS MD 9:1 0 AM PSTKarlos Fonseca MD - 05/11/2014 12:54 PM PSTThis office note has been dictated. Job ID# [id number] signed by Karlos Fonseca MD at 05/11/2014 2:25 PM Arleen Lo [...]
--- OUTSIDE RECORDS SUMMARY | ~2019-02-26 | XMS | Encounter Summary ---
Demographics + + + | Address | [address] | | | [place] [address] | + + + | Home Phone [...] Author | [facility] | | | and Vargasana | + + + | Organization | [facility] [...] #[address] | | | | | [address] | | + + + + + Care Team Providers + +------+ + | Care Crankshaft Balancer Name | Role | Phone | + [...] Frazier MD | | | | | [place], | | | | | | [place] [address] | | | | | | [phone] | | | +--------+--------+ + + + [...]
--- OUTSIDE RECORDS SUMMARY | ~2019-02-26 | XMS | Encounter Summary ---
Demographics + + + | Address | [address] | | | [place] [address] | + + + | Home Phone [...] Author | [facility] | | | and Vargasana | + + + | Organization | [facility] | | | and Vargasana | + + + | Address | Unknown | + + + | Phone | Unavailable | + + + Support + + + + + | Name | Relationship | Address | Phone | + + + + + | Palak Daugherty | ECON | #[address] | | | | | [address] | | + + + + + Care Team Providers + +------+ + | Care Building Maintenance Superintendent Name | Role | Phone | + [...] + + | 07/11/ | Office | [facility] | Karlos Fonseca, | Right shoulder pain | | 2015 | Visit | PHYSIATRY [address] | [address] | (Primary Dx); | | | | [place], | [place], [place] | Rotator cuff tear | | | | [place] [address] | [address] | arthropathy of right | | | | [phone] | | shoulder; Erectile | | | [...] MD - 07/11/2014 1:48 PM PDT [facility] PHYSIATRY [address] [facility] [address] OFFICE NOTE KARLOS FONSECA JR, MD Patient: KEVIN DAUGHERTY Admitting: MR #: [id number] LOC: PT TYPE: Adm Date: 07/11/2014 : [...] ALLERGIES: LEVOFLOXACIN and CHANTIX. CURRENT MEDICATIONS: Albuterol. Itmhyvc-xsijceldknjlr-nxktohed 1 tablet every 6 hours as needed. [...] 07/11/2014 13:48:33 Transcribed on 07/11/2014 14:16:43 by lucile [facility] job# [id number] Confirmation #: [id number] cc: JOSE ANGEL FIELDS MD 3:2 0 [...]
--- OUTSIDE RECORDS SUMMARY | ~2019-02-26 | XMS | Encounter Summary ---
Demographics + + + | Address | [address] | | | [place] [address] | + + + | Home Phone [...] Author | [facility] | | | and Vargasana | + + + | Organization | [facility] | | | and Vargasana | + + + | Address | Unknown | + + + | Phone | Unavailable | + + + Support + + + + + | Name | Relationship | Address | Phone | + + + + + | Palak Aguilar | ECON | #[address] | | | | | [address] | | + + + + + Care Team Providers + +------+ + | Care Real Estate Accountant Name | Role | Phone | + [...] Frazier MD | | | | | [place], | | | | | | [place] [address] | | | | | | [phone] | | | +--------+--------+ + + + [...]
--- OUTSIDE RECORDS SUMMARY | ~2019-02-26 | XMS | Encounter Summary ---
Demographics + + + | Address | [address] | | | [place] [address] | + + + | Home Phone [...] + + | Author | [facility] | | | and Vargasana | + + + | Organization | [facility] | | | and Vargasana | + + + | Address | Unknown | + + + | Phone | Unavailable | + + + Support + + + + + | Name | Relationship | Address | Phone | + + + + + | Palak Daugherty | ECON | [address] | | | | | [address] | | + + + + + Care Team Providers + +------+ + | Care Ski Molder Name | Role | Phone | + +------+ + | Jose Angel Reina MD | PCP | | + +------+ + Encounter Details +--------+ + + + + | Date | Type | Department | Care Team | Description | +--------+ + + + + | 04/20/ | [facility] | [facility] | Micah Del Cid | | | 2014 | Encounter | MED CTR XRAY [address] | T, [address] | | | | | [place] | [address] [place] | | | | | [place], [place] [address] | [address] | | | | | [phone] | | | +--------+ + + + [...] | | | | | | ([facility]) | joy Araujo | | | | | | | [place] | | | | | + + [...] | + + + | [facility] | [place] | | Department [address] [place] [address] [place] | [facility] | | [ rep ct [address]] [ rep ct [facility] | | st zip] Signed | - IMAGING | | | | | Patient Name: KEVIN DAUGHERTY SR | | | Physician: BANDAR : 1950 Age: 62 Sex: M Unit | | | #: [id number] Exam Date: 04/20/13 Location: | | | [facility] [place] Report #: [id number] Page: | | | %(RAD)RES..mtdd.print.filter("pg") of %(RAD) | | | RES..mtdd.print.filter("tpg") | | | | | | Accession Number: [id number] | | | PROCEDURE NOTE LUMBAR FACET [...] | | | Transcribed Date/Time: 04/20/2013 17:21 Hard Metals Engraver Hand: | | | <<Signature on File>> | | | Micah Anderson | | | MD Nehemias04/20/13 4715 <Electronically signed by Micah Anderson | | | [place] ARIAS> Micah Del Cid MD 04/20/13 7685 | | | Hard Metals Engraver Hand: Julius [id number]/16/14 8560 | | | | | + + + + + + + + | Performing | Address | City/State/Zipcode | Phone Number | | Organization | | | | + + + + + | [address] | [address] | [place] | [phone] | | [facility] | | [address] | | | - IMAGING | | | | + + + + + documented in this encounter Visit Diagnoses Not on filedocumented in this encounter
--- OUTSIDE RECORDS SUMMARY | ~2019-02-26 | XMS | Encounter Summary ---
Demographics + + + | Address | [address] | | | [place] [address] | + + + | Home Phone [...] Author | [facility] | | | and Vargasana | + + + | Organization | [facility] | | | and Vargasana | + + + | Address | Unknown | + + + | Phone | Unavailable | + + + Support + + + + + | Name | Relationship | Address | Phone | + + + + + | Palak Aguilar | ECON | #[address] | | | | | [address] | | + + + + + Care Team Providers + +------+ + | Care Senior Speech Pathologist Name | Role | Phone | + [...] Frazier MD | | | | | [place], | | | | | | [place] [address] | | | | | | [phone] | | | +--------+--------+ + + + [...]
--- OUTSIDE RECORDS SUMMARY | ~2019-02-26 | XMS | Encounter Summary ---
Demographics + + + | Address | [address] | | | [place] [address] | + + + | Home Phone [...] + | Author | [facility] | | | and Vargasana | + + + | Organization | [facility] | | | and Vargasana | + + + | Address | Unknown | + + + | Phone | Unavailable | + + + Support + + + + + | Name | Relationship | Address | Phone | + + + + + | Palak Aguilar | ECON | [address] | | | | | [address] | | + + + + + Care Team Providers + +------+ + | Care Wool Spotter Name | Role | Phone | [...] W | | | | | | [place], | | | | | | [place] [address] | | | | | | [phone] | | | +--------+ + + + [...]
--- OUTSIDE RECORDS SUMMARY | ~2019-02-26 | XMS | Clinical Summary ---
Demographics + + + | Address | [address] | | | [place] [address] | + + + | Home Phone [...] + | Author | [facility] [employer] (Historical as of | | | 11-19-18) | + + + | Organization | [facility] [employer] (Historical as of | | | 11-19-18) | + + + | Address | Unknown | + + + | Phone | Unavailable | + + + Support + + + + + | Name | Relationship | Address | Phone | + + + + + | Palak Daugherty | ECON | [address] | | | | | [address] | | + + + + + Care Team Providers + +------+ + | Care Behavioral Interventionist Name | Role | Phone | + [...] [place] - [place] | [place] - | [id number] | [employer] | | | | | [...] | [place] | | | 1938 | [address] | + +--------+ +--------+ + +
--- OUTSIDE RECORDS SUMMARY | ~2019-02-26 | XMS | Encounter Summary ---
Demographics + + + | Address | [address] | | | [place] [address] | + + + | Home Phone [...] | Author | [facility] | | | and Vargasana | + + + | Organization | [facility] | [...] #[address] | | | | | [address] | | + + + + + Care Team Providers + +------+ + | Care Traffic Division Commanding Officer Name | Role | Phone | [...] Lisa GreenwoodLeonora | | | | | [phone] | [place] [address] | | +--------+ + + + + [...]
--- OUTSIDE RECORDS SUMMARY | ~2019-02-26 | XMS | Encounter Summary ---
Demographics + + + | Address | [address] | | | [place] [address] | + + + | Home Phone [...] + + | Author | [facility] | | | and Vargasana | + + + | Organization | [facility] | [...] #[address] | | | | | [address] | | + + + + + Care Team Providers + +------+ + | Care Crepe Maker Name | Role | Phone | [...] Frazier MD | | | | | [place], | | | | | | [place] [address] | | | | | | [phone] | | | +--------+--------+ + + + [...]
--- OUTSIDE RECORDS SUMMARY | ~2019-02-26 | XMS | Encounter Summary ---
Demographics + + + | Address | [address] | | | [place] [address] | + + + | Home Phone [...] Author | [facility] | | | and Vargasana | + + + | Organization | [facility] | | | and Vargasana | + + + | Address | Unknown | + + + | Phone | Unavailable | + + + Support + + + + + | Name | Relationship | Address | Phone | + + + + + | Palak Aguilar | ECON | #[address] | | | | | [address] | | + + + + + Care Team Providers + +------+ + | Care City Solicitor Name | Role | Phone | + [...] Frazier MD | | | | | [place], | | | | | | [place] [address] | | | | | | [phone] | | | +--------+ + + + [...]
--- OUTSIDE RECORDS SUMMARY | ~2019-02-26 | XMS | Encounter Summary ---
Demographics + + + | Address | [address] | | | [place] [address] | + + + | Home Phone [...] | Author | [facility] | | | and Vargasana | + + + | Organization | [facility] | | | and Vargasana | + + + | Address | Unknown | + + + | Phone | Unavailable | + + + Support + + + + + | Name | Relationship | Address | Phone | + + + + + | Palak Aguilar | ECON | [address] | | | | | [address] | | + + + + + Care Team Providers + +------+ + | Care Grease Maker Head Name | Role | Phone | [...] Frazier MD | | | | | [place], | | | | | | [place] [address] | | | | | | [phone] | | | +--------+--------+ + + + [...]
--- OUTSIDE RECORDS SUMMARY | ~2019-02-26 | XMS | Encounter Summary ---
Demographics + + + | Address | [address] | | | [place] [address] | + + + | Home Phone [...] Author | [facility] | | | and Vargasana | + + + | Organization | [facility] | | | and Vargasana | + + + | Address | Unknown | + + + | Phone | Unavailable | + + + Support + + + + + | Name | Relationship | Address | Phone | + + + + + | Palak Aguilar | ECON | [address] | | | | | [address] | | + + + + + Care Team Providers + +------+ + | Care Avionics Installer Name | Role | Phone | [...] | 05/23/ | Telephone | [facility] | Micah Del Cid | Other | | 2014 | | PHYSIATRY [address] | [address], [address] | | | | | [place], | [place], [place] | | | | | [place] [address] | [address] | | | | | [phone] | | | +--------+ + + + [...]
--- OUTSIDE RECORDS SUMMARY | ~2019-02-26 | XMS | Encounter Summary ---
Demographics + + + | Address | [address] | | | [place] [address] | + + + | Home Phone [...] | Author | [facility] | | | and Vargasana | + + + | Organization | [facility] | [...] #[place] | | | | | [address] | | + + + + + Care Team Providers + +------+ + | Care Paralegal Assistant Name | Role | Phone | [...] + + | 07/06/ | Office | [facility] | Karlos Craig, | Neck pain on right | | 2013 | Visit | MEDICINE | [address] | side (Primary Dx); | | | | REHABILITATION [address] | [place] | Cervical strain, | | | | [address] [place] | [address] | initial encounter; | | | | [place] [address] | | Lumbar facet | | | | [phone] | | arthropathy; | | | | | | Lumbalgia; Ataxia | +--------+---------+ + [...] indefinitely. If back pain returns return to [facility] earlier, we may consider repeating facet injections in the future. Take muscle relaxant for your right neck pain for the next 10 days. If your neck pain pers ists, return to the clinic earlier. Follow up with [facility] regarding your ataxia. If your right shoulder pain gets worse, return to the clinic. Return to the clinic in 3 months, unless symptoms fail to improve or get worse.Electronical ly signed by Karlos Craig MD at 07/06/2013 1:55 PM PDT documented in this encounter Progress Notes Karlos Craig MD - 07/06/2013 1:55 PM PDTThis office note has been dictated. Job ID# [id number] signed by Karlos Craig MD at 07/06/2013 2:17 PM Arleen Ashby RN - 07/06/2013 1:07 PM PDTPatient states 5/10 pain to neck. ralos Craig MD - 07/06/2013 12:00 AM PDT PHYSICAL MEDICINE AND REHAB [address] [place] [address] FAX: [phone] OFFICE VISIT PHYSICAL MEDICINE REHABILITATION PROGRESS NOTE [...] with ataxia. He has a consult with [facility] Neurology Department, later this month regard [...] biceps, tricep s, wrist dorsiflexion, and hand lump maker. DATABASE: No new imaging or laboratory data [...] facet injections. He will followup w ith [facility] regarding his ataxia. In regards to [...] worse. Greater than 30 minutes was spent omsb-vh-puya today with Mr. Aguilar, over half of which w as spent formulating and discussing his medical treatment plan. Thank you for allowing me to be involved in the care of your patient. If you have any quest ions regarding the care of Mr. Aguilar, please do not hesitate to call. Karlos Craig Jr, MD GEM / PAP JOB #: [id number] cc: Peter Reina MD documented in this [...]
--- OUTSIDE RECORDS SUMMARY | ~2019-02-26 | XMS | Encounter Summary ---
Demographics + + + | Address | [address] | | | [place] [address] | + + + | Home Phone [...] + | Author | [facility] | | | and Vargasana | + + + | Organization | [facility] [...] #[address] | | | | | [address] | | + + + + + Care Team Providers + +------+ + | Care Speech Correction Assistant Name | Role | Phone | + +------+ + | Jose Angel Reina MD | PCP | | + +------+ + Encounter Details +--------+ + + + + | Date | Type | Department | Care Team | Description | +--------+ + + + + | 01/16/ | Hospital | [facility] | Karlos Craig, | Right shoulder pain; | | 2014 | Encounter | MED CTR XRAY [address] | MD [address] | Rotator cuff | | | | [place] | [place], [place] | tendonitis, right; | | | | [place] [address] | [address] | Rotator cuff tear | | | | [phone] | | arthropathy of right | | [...] 99 | | | | | | ([facility]) | months | | | | [...] + | MISCELLANEOUS LAB | | | [phone] | + +---------+ + + | MISCELANIOUS LAB | | | [phone] | + +---------+ + + documented in [...]
--- OUTSIDE RECORDS SUMMARY | ~2019-02-26 | XMS | Encounter Summary ---
Demographics + + + | Address | [address] | | | [place] [address] | + + + | Home Phone [...] Author | [facility] | | | and Vargasana | + + + | Organization | [facility] | | | and Vargasana | + + + | Address | Unknown | + + + | Phone | Unavailable | + + + Support + + + + + | Name | Relationship | Address | Phone | + + + + + | Palak Aguilra | ECON | #[place] | | | | | [address] | | + + + + + Care Team Providers + +------+ + | Care Manager Of Distribution Name | Role | Phone | + [...] + | 03/16/ | Office | [facility] | [place], | COPD (chronic | | 2012 | Visit | PULMONARY [address] | Ling Frazier MD | obstructive | | | | [place], | | pulmonary disease) | | | | [place] [address] | | (HCC) (Primary Dx); | | | | [phone] | | Tobacco abuse; | | | [...] So, don't give u p! Go Cold [place]: Most ex-smokers quit cold turkey. Trying to [...] your behavior and peer support. Call the [facility] Quitline for more information. 439-ZXOK-OQB (804-116-9186). Low-cost or free programs are offered by many hospitals, local chapters of the [place] Lung Association (626-859-4867) a nd the [place] Cancer Society (537-755-6973). Support at home is important too. Non-smokers can help by offering praise and encouragement. If the smoker fails to quit, encourage them to try again! Necb-Xgc-Mtwnmon Medicines: For those who can't quit on [...] smoking, visit the following links: National Cancer [place] , Clearing the Air, Quit Smoking Today - an online mejias klet. http://www.smokefree.gov/pubs/clearing_the_air.pdf Smokefree.gov http://smokefree.gov/ QuitNet http://www.quitnet.com/ 7314-4076 Rudy KimbroughEinstein [facility], [address] [place] [address], [place] [address]. All rights reserve d. This information is not intended as a substitute for professional medical care. Always fo llow your healthcare professional's instructions. documented in this encounter Progress Notes Ling Lowe MD - 03/16/2013 2:39 PM PSTFormatting of this note might be differe nt from the original. Pulmonary Follow Up Note Ling Lowe MD [place] [facility] [place], [address] HPI Nazario Aguilar Sr. is a 62 y.o. male patient of Jose Angel Reina here today for foll ow up of COPD. At their last visit, we had continued his Advair, Spiriva and Daliresp. Since their last vi sit he feels like he has been doing pretty well. He notes that he was at [place] for one night with vomiting, which [...] He is currently on 3 L[facility] at [facility]. He reports good compliance. Past [...] made to ensure accuracy; however, inadvertent computerized solar lab technician errors may be pre sent. documented in [...]
--- OUTSIDE RECORDS SUMMARY | ~2019-02-26 | XMS | Encounter Summary ---
Demographics + + + | Address | [address] | | | [place] [address] | + + + | Home Phone [...] | Author | [facility] | | | and Vargasana | + + + | Organization | [facility] | [...] #[address] | | | | | [address] | | + + + + + Care Team Providers + +------+ + | Care Guidance Secretary Name | Role | Phone | + [...] Lisa GreenwoodLeonora | | | | | [phone] | [place] [address] | | +--------+ + + + + [...]
--- OUTSIDE RECORDS SUMMARY | ~2019-02-26 | XMS | Encounter Summary ---
Demographics + + + | Address | [address] | | | [place] [address] | + + + | Home Phone [...] | Author | [facility] | | | and Vargasana | + + + | Organization | [facility] | | | and Vargasana | + + + | Address | Unknown | + + + | Phone | Unavailable | + + + Support + + + + + | Name | Relationship | Address | Phone | + + + + + | Palak Aguilar | ECON | #[place] | | | | | [address] | | + + + + + Care Team Providers + +------+ + | Care Animal Pathologist Name | Role | Phone | [...] + + | 03/15/ | Office | [facility] [place] | [place], | COPD (chronic | | 2013 | Visit | PULMONARY [address] | Ling Frazier MD | obstructive | | | | [place], | | pulmonary disease) | | | | [place] [address] | | (HCC) (Primary Dx); | | | | [phone] | | Nocturnal hypoxemia | | | | | | due to emphysema | | | | | | ([facility]); Tobacco abuse | +--------+---------+ + + + [...] see if they have smoking cessation classes. [facility] offers free smoking cessation classes. We [...] day. He ran out of the albuterol Biexdiao.comu lizer, and went back to using his Duonebs until he could get this refilled. He has been usin g the nebulizer 3 times daily. He returns today for routine follow up. Currently he is able to walk 1/2 mile at his own pace on level ground, using a grocery cart . He is exercising regularly. He goes to [place] to walk every day when his goes to wor k, and walks 1-2 laps. He does not cough very often. He has not had hemoptysis. He has been evaluated for nocturnal oxygen and does use it. He is currently on 3 LPM at [facility]. He reports good compliance. Past Medical [...] of Breath. Dx: 496 RINA: 99 months [facility] [place] 360 vial 4 aspirin 81 mg EC tablet Take 81 mg by mouth Daily. tesxrem-vyjuknomcgfzf-ceropria (HEADACHE RELIEF) 250-250-65 MG per tablet Take [...] made to ensure accuracy; however, inadvertent computerized flash welding machine operator errors may be pre sent. documented [...]
--- OUTSIDE RECORDS SUMMARY | ~2019-02-26 | XMS | Encounter Summary ---
Demographics + + + | Address | [address] | | | [place] [address] | + + + | Home Phone | | + + + | Preferred Language | Unknown | + + + | Marital Status | | + + + | Confucianism Affiliation | 1061 | + + + | Race | Unknown | + + + | Ethnic Group | Unknown | + + + Author + + + | Author | [facility] | | | and Vargasana | + + + | Organization | [facility] | | | and Vargasana | + + + | Address | Unknown | + + + | Phone | Unavailable | + + + Support + + + + + | Name | Relationship | Address | Phone | + + + + + | Palak Aguilar | ECON | [address] | | | | | [address] | | + + + + + Care Team Providers + +------+ + | Care Cash Management Clerk Name | Role | Phone | + +------+ + | Jose Angel Reina MD | PCP | | + +------+ + Encounter Details +--------+ + + + + | Date | Type | Department | Care Team | Description | +--------+ + + + + | 03/19/ | Orders Only | [facility] [place] | Stephanie Garland, | COPD (chronic | | 2013 | | PULMONARY [address] | RN | obstructive | | | | [place], | | pulmonary disease) | | | | [place] [address] | | [facility] (Primary Dx) | | | | [phone] | | | +--------+ + + + [...]
--- OUTSIDE RECORDS SUMMARY | ~2019-02-26 | XMS | Encounter Summary ---
Demographics + + + | Address | [address] | | | [place] [address] | + + + | Home Phone [...] | [facility] | | | and Vargasana | + + + | Organization | [facility] | | | and Vargasana | + + + | Address | Unknown | + + + | Phone | Unavailable | + + + Support + + + + + | Name | Relationship | Address | Phone | + + + + + | Palak Aguilar | ECON | [address] | | | | | [address] | | + + + + + Care Team Providers + +------+ + | Care Archaeologist Name | Role | Phone | + [...] MD | obstructive | | | | [place], | | pulmonary disease) | | | | [place] [address] | | (Primary Dx); | | | | [phone] | | Nocturnal hypoxemia | | | [...] Ling B, MD - 12/28/2013 1:29 PM [facility] offers free smoking cessation classes. [...] So, don't give u p! Go Cold [place]: Most ex-smokers quit cold turkey. Trying to [...] your behavior and peer support. Call the [facility] Quitline for more information. 953-EOJF-BQZ (341-031-3778). Low-cost or free programs are offered by many hospitals, local chapters of the [place] Lung Association (707-553-9315) a nd the [place] Cancer Society (214-095-7703). Support at home is important too. Non-smokers can help by offering praise and encouragement. If the smoker fails to quit, encourage them to try again! Vjui-Avs-Oipojwe Medicines: For those who can't quit on [...] such as bupropion (Zyban, Wellbutrin), varenicline (Chantix, [place] ix), a niocotine inhaler or nasal spray. [...] smoking, visit the following links: National Cancer [place] , Clearing the Air, Quit Smoking Today - an online mejias klet. http://www.smokefree.gov/pubs/clearing_the_air.pdf Smokefree.gov http://smokefree.gov/ QuitNet http://www.quitnet.com/ 3839-7267 [address]roguhLehigh [facility] [address], [address] [place] [address]. All rights reserve d. This information is [...] regularly. He just finished physical therapy at [facility]. He was given e xercises [...] [facility]. He reports good compliance. He is taking [...] made to ensure accuracy; however, inadvertent computerized pharmacy innovation assistant errors may be pre sent. Electronically signed [...]
--- OUTSIDE RECORDS SUMMARY | ~2019-02-26 | XMS | Clinical Summary ---
Demographics + + + | Address | [address] | | | [place] [address] | + + + | Home Phone | | + + + | Preferred Language | Unknown | + + + | Marital Status | Single | + + + | Rastafarian Affiliation | Unknown | + + + [...] Team Providers + +------+ + | Care Management Planner Name | Role | Phone | + +------+ + | Jose Angel Reina MD | PCP | | + +------+ + Source Comments NIESHA is fully live on both EpicCare Ambulatory and EpicCare InPatient.[facility] Allergies Not on File Medications + + [...]
--- OUTSIDE RECORDS SUMMARY | ~2019-02-26 | XMS | Encounter Summary ---
Demographics + + + | Address | [address] | | | [place] [address] | + + + | Home Phone [...] + | Author | [facility] | | | and Vargasana | + + + | Organization | [facility] | | | and Vargasana | + + + | Address | Unknown | + + + | Phone | Unavailable | + + + Support + + + + + | Name | Relationship | Address | Phone | + + + + + | Palak Aguilar | ECON | [address] | | | | | [address] | | + + + + + Care Team Providers + +------+ + | Care Sewer Pipe Layer Name | Role | Phone | [...] | Karlos Gatica MD | [address] | | | | | shoulder | [address] | [place], | | | | | pain | [address] | [place] | | | | | Rotator cuff | [place], | [address] | | | | | tendonitis, | [place] [address] | Phone: | | | | | right | Phone: | [phone] | | | | | Rotator cuff | [phone] | Fax: | | | | | tear | Fax: | [phone] | | | | | arthropathy | [phone] | | | | | | of [...] | shoulder | [address] | | | | n | pain | [address] | [place], | | | | | Rotator cuff | [place], | [place] [address] | | | | | tendonitis, | [place] [address] | Phone: | | | | | right | Phone: | [phone] | | | | | | [phone] | Fax: | | | | | | Fax: | [phone] | | | | | | [phone] | | +--------+ + + + + [...] PHYSIATRY [address] | MD [address] | (Primary Dx); | | | | [address] [place], | [place], [place] | Rotator cuff | | | | [place] [address] | [address] | tendonitis, right; | | | | [phone] | | Rotator cuff tear | | [...] office note has been dictated. Job ID# [id number] Referring Physician: Jose Angel Reina * Diagnosis: [...] attention as well as inform my clinic. [facility], Karlos Gatica MD - 03/22/2014 12:00 AM [facility] PHYSICAL MEDICINE AND REHAB [address] [place] [address] FAX: [phone] OFFICE VISIT PHYSICAL MEDICINE REHABILITATION PROGRESS NOTE [...] Jr, MD GEM / PAP JOB #: [id number] cc: Peter Reina MD documented in this [...] + | MISCELLANEOUS LAB | | | [phone] | + +---------+ + + | MISCELANIOUS LAB | | | [phone] | + +---------+ + + [place] Shoulder [...] + | MISCELLANEOUS LAB | | | [phone] | + +---------+ + + | MISCELANIOUS LAB | | | [phone] | + +---------+ + + documented in [...] | | | ) | | ONCE, [facility] 03/22/14 at 1400, For 1 | | | | | | | dose, Not for IV use., | | | | | | + + + +-------+------+ + +---+---+ | | | +---+---+ documented in this encounter
--- OUTSIDE RECORDS SUMMARY | ~2019-02-26 | XMS | Encounter Summary ---
Demographics + + + | Address | [address] | | | [place] [address] | + + + | Home Phone [...] | [facility] | | | and Vargasana | + + + | Organization | [facility] | | | and Vargasana | + + + | Address | Unknown | + + + | Phone | Unavailable | + + + Support + + + + + | Name | Relationship | Address | Phone | + + + + + | Palak Aguilar | ECON | [address] | | | | | [address] | | + + + + + Care Team Providers + +------+ + | Care Range Mounter Name | Role | Phone | + [...] | shoulder | [address] | [address] | | | | n | pain | [address] | [place], | | | | | Rotator cuff | [place], | [place] [address] | | | | | tendonitis, | [place] [address] | Phone: | | | | | right | Phone: | [phone] | | | | | | [phone] | Fax: | | | | | | Fax: | [phone] | | | | | | [phone] | | +--------+ + + + + [...] + | 10/11/ | Office | [facility] | Karlos Craig, | Right shoulder pain | | 2013 | Visit | PHYSIATRY [address] | [address] | (Primary Dx); | | | | [place], | [place], [place] | Rotator cuff | | | | [place] [address] | [address] | tendonitis, right; | | | | [phone] | | Lumbalgia; Lumbar | | | [...] of the notes from your neurologist at [facility]. We will review them wit h you at your next visit. Continue working toward stopping smoking.Electronically signed by Karlos Craig MD at 12/2013 11:33 AM PDT documented in this encounter Progress Notes Karlos Craig MD - 10/11/2013 11:34 AM PDTThis office note has been dictated. Job ID# [id number] signed by Karlos Craig MD at 10/11/2013 12:06 PM PDTAlesha Flores RN - 10/11/2013 11:10 AM PDTBack and right shoulder pain is doing better. Evaluated at [facility] for ataxia but at the moment they requested expensive testing that the pt couldn't afford, p atient will be following up with them in 1 year. Not doing PT at this moment, but doing fitz ening and home exercises Karlos Craig MD - 10/11/2013 12:00 AM PDT PHYSICAL MEDICINE AND REHAB [address] [place] [id number] FAX: [phone] OFFICE VISIT CONSULT REQUESTED BY: Jose Angel [...] He indicates that he was seen at [facility] Neurology Department for his ataxia. He [...] available at this time. Neurology notes from [facility] have not yet been received. They [...] does not feel like he has the nm ans or ability to do so. He was encouraged to contact the 6-010-RJ-BUTTS smoking cessation program. ALLERGIES 1. LEVAQUIN. 2. [...] In regard to his ataxia, notes from [facility] have been requeste d for review [...] tear. Greater than 30 minutes was spent avbr-nl-mmme today with Mr. Aguilar, over half of which w as spent formulating and discussing his medical treatment plan. Thank you for allowing me to be involved in the care of your patient. If you have any quest ions regarding the care of Mr. Aguilar, please do not hesitate to call. Karlos Craig Jr, MD [place] / JOB #: [id number] cc: Peter Reina MD documented in this [...]
--- OUTSIDE RECORDS SUMMARY | ~2019-02-26 | XMS | Encounter Summary ---
Demographics + + + | Address | [address] | | | [place] [address] | + + + | Home Phone [...] | Author | [facility] | | | and Vargasana | + + + | Organization | [facility] | | | and Vargasana | + + + | Address | Unknown | + + + | Phone | Unavailable | + + + Support + + + + + | Name | Relationship | Address | Phone | + + + + + | Palak Aguilar | ECON | [address] | | | | | [address] | | + + + + + Care Team Providers + +------+ + | Care Grant Administrator Name | Role | Phone | [...] + | 06/15/ | Office | [facility] | [place], | COPD (chronic | | 2013 | Visit | PULMONARY [address] | Ling Frazier MD | obstructive | | | | [place], | | pulmonary disease) | | | | [place] [address] | | (HCC) (Primary Dx); | | | | [phone] | | Periodic limb | | | [...] Ling Lowe MD - 06/15/2013 2:58 PM [id number] is a free service to help you [...] is available in both En glish and [place]i with translation and TTY services. It is [...] his insurance is no longer christy with [facility], and so everything has to be returned and ordered elsewhere. He can go though [facility] or [facility]. He is currently on a [...] of Breath. Dx: 496 RINA: 99 months [facility] [place] 360 vial 11 aspirin 325 mg tablet [...] syncope, and peripheral edema. Seen at [facility] one night for chest pain 2-3 weeks [...] again. I reordered the albuterol nebulizers through [employer], as he is switching home health companies. [...] Duonebs, start albuterol nebulizers. Order sent to [facility]. 2.Continue Advair, Spiriva and Daliresp. 3.Continue ropinirole. [...] made to ensure accuracy; however, inadvertent computerized securities underwriter errors may be pre sent. Electronically signed [...] | 06/15/2014 | | | | | ([facility]) Nocturnal | | | | | | hypoxemia | | + + +--------+ + + documented as of this encounter Visit Diagnoses + + | Diagnosis | + + | COPD (chronic obstructive pulmonary disease) ([facility]) - Primary Chronic airway | | obstruction, not elsewhere classified | + + | Periodic limb movement disorder | + + | Nocturnal hypoxemia Hypoxemia | + + | Tobacco abuse Tobacco use disorder | + + documented in this encounter
--- OUTSIDE RECORDS SUMMARY | ~2019-02-26 | XMS | Encounter Summary ---
Demographics + + + | Address | [address] | | | [place] [address] | + + + | Home Phone [...] + + | Author | [facility] | | | and Vargasana | + + + | Organization | [facility] | [...] #[address] | | | | | [address] | | + + + + + Care Team Providers + +------+ + | Care Intensive Care Unit Nurse Name | Role | Phone | + [...] MD | oximetry) | | | | Pyrites [place], | | | | | | [place] [address] | | | | | | [phone] | | | +--------+ + + + [...]
--- OUTSIDE RECORDS SUMMARY | ~2019-02-26 | XMS | Encounter Summary ---
Demographics + + + | Address | [address] | | | [place] [address] | + + + | Home Phone [...] | Author | [facility] | | | and Vargasana | + + + | Organization | [facility] | [...] [address] | | | | | [address] | | + + + + + Care Team Providers + +------+ + | Care Campus Ambassador Name | Role | Phone | + [...] Frazier MD | | | | | [place], | | | | | | [place] [address] | | | | | | [phone] | | | +--------+--------+ + + + [...]
--- OUTSIDE RECORDS SUMMARY | ~2019-02-26 | XMS | Encounter Summary ---
Demographics + + + | Address | [address] | | | [place] [address] | + + + | Home Phone [...] Author | [facility] | | | and Vargasana | + + + | Organization | [facility] | | | and Vargasana | + + + | Address | Unknown | + + + | Phone | Unavailable | + + + Support + + + + + | Name | Relationship | Address | Phone | + + + + + | Palak Aguilar | ECON | #[address] | | | | | [address] | | + + + + + Care Team Providers + +------+ + | Care Condenser Tube Tender Name | Role | Phone | [...] Frazier MD | | | | | [place], | | | | | | [place] [address] | | | | | | [phone] | | | +--------+--------+ + + + [...]
--- OUTSIDE RECORDS SUMMARY | ~2019-02-26 | XMS | Encounter Summary ---
Demographics + + + | Address | [address] | | | [place] [address] | + + + | Home Phone [...] | Author | [facility] | | | and Vargasana | + + + | Organization | [facility] [...] #[address] | | | | | [address] | | + + + + + Care Team Providers + +------+ + | Care Auditing Specialist Name | Role | Phone | [...] Frazier MD | | | | | [place], | | | | | | [place] [address] | | | | | | [phone] | | | +--------+--------+ + + + [...]
--- OUTSIDE RECORDS SUMMARY | ~2019-02-26 | XMS | Encounter Summary ---
Demographics + + + | Address | [address] | | | [place] [address] | + + + | Home Phone [...] + | Author | [facility] | | | and Vargasana | + + + | Organization | [facility] | | | and Vargasana | + + + | Address | Unknown | + + + | Phone | Unavailable | + + + Support + + + + + | Name | Relationship | Address | Phone | + + + + + | Palak Aguilar | ECON | [address] | | | | | [address] | | + + + + + Care Team Providers + +------+ + | Care Program Management Analyst Name | Role | Phone | [...] Frazier MD | | | | | [place], | | | | | | [place] [address] | | | | | | [phone] | | | +--------+--------+ + + + [...]
--- OUTSIDE RECORDS SUMMARY | ~2019-02-26 | XMS | Encounter Summary ---
Demographics + + + | Address | [address] | | | [place] [address] | + + + | Home Phone [...] | [facility] | | | and Vargasana | + + + | Organization | [facility] | | | and Vargasana | + + + | Address | Unknown | + + + | Phone | Unavailable | + + + Support + + + + + | Name | Relationship | Address | Phone | + + + + + | Palak Aguilar | ECON | [address] | | | | | [address] | | + + + + + Care Team Providers + +------+ + | Care Milk Condenser Name | Role | Phone | + [...] Frazier MD | | | | | [place], | | | | | | [place] [address] | | | | | | [phone] | | | +--------+--------+ + + + [...]
--- OUTSIDE RECORDS SUMMARY | ~2019-02-26 | XMS | Encounter Summary ---
Demographics + + + | Address | [address] | | | [place] [address] | + + + | Home Phone [...] + | Author | [facility] | | | and Vargasana | + + + | Organization | [facility] | | | and Vargasana | + + + | Address | Unknown | + + + | Phone | Unavailable | + + + Support + + + + + | Name | Relationship | Address | Phone | + + + + + | Palak Aguilar | ECON | [address] | | | | | [address] | | + + + + + Care Team Providers + +------+ + | Care Nitrogen Operator Name | Role | Phone | [...] Lisa GreenwoodLeonora | | | | | [phone] | [place] [address] | | +--------+ + + + + [...]
--- OUTSIDE RECORDS SUMMARY | ~2019-02-26 | XMS | Encounter Summary ---
Demographics + + + | Address | [address] | | | [place] [address] | + + + | Home Phone [...] | Author | [facility] | | | and Vargasana | + + + | Organization | [facility] [...] #[address] | | | | | [address] | | + + + + + Care Team Providers + +------+ + | Care Rn Dialysis Name | Role | Phone | + +------+ + | Jose Angel Reina MD | PCP | | + +------+ + Encounter Details +--------+ + + + + | Date | Type | Department | Care Team | Description | +--------+ + + + + | 03/19/ | Orders Only | [facility] [place] | Stephanie aGrland, | COPD (chronic | | 2013 | | [address]ULMONARY [address] | RN | obstructive | | | | [place], | | pulmonary disease) | | | | [place] [address] | | ([facility]) (Primary Dx) | | | | [phone] | | | +--------+ + + + [...]
--- OUTSIDE RECORDS SUMMARY | ~2019-02-26 | XMS | Encounter Summary ---
Demographics + + + | Address | [address] | | | [place] [address] | + + + | Home Phone [...] Author | [facility] | | | and Vargasana | + + + | Organization | [facility] | | | and Vargasana | + + + | Address | Unknown | + + + | Phone | Unavailable | + + + Support + + + + + | Name | Relationship | Address | Phone | + + + + + | Palak Aguilar | ECON | #[address] | | | | | [address] | | + + + + + Care Team Providers + +------+ + | Care Instructor Physical Education Name | Role | Phone | + [...] MD | | | | | [place], | | | | | | [place] [address] | | | | | | [phone] | | | +--------+--------+ + + + [...]
--- OUTSIDE RECORDS SUMMARY | ~2019-02-26 | XMS | Encounter Summary ---
Demographics + + + | Address | [address] | | | [place] [address] | + + + | Home Phone [...] Author | [facility] | | | and Vargasana | + + + | Organization | [facility] [...] #[address] | | | | | [address] | | + + + + + Care Team Providers + +------+ + | Care Director Of User Experience Name | Role | Phone | + [...] Frazier MD | | | | | [place], | | | | | | [place] [address] | | | | | | [phone] | | | +--------+--------+ + + + [...]
--- OUTSIDE RECORDS SUMMARY | ~2019-02-26 | XMS | Encounter Summary ---
Demographics + + + | Address | [address] | | | [place] [address] | + + + | Home Phone [...] | Author | [facility] | | | and Vargasana | + + + | Organization | [facility] [...] #[address] | | | | | [address] | | + + + + + Care Team Providers + +------+ + | Care Spice Blender Name | Role | Phone | + [...] | | PULMONARY [address] | Ling Frazire MD | | | | | [place], | | | | | | [place] [address] | | | | | | [phone] | | | +--------+--------+ + + + [...]
--- OUTSIDE RECORDS SUMMARY | ~2019-02-26 | XMS | Encounter Summary ---
Demographics + + + | Address | [address] | | | [place] [address] | + + + | Home Phone [...] Author | [facility] | | | and Vargasana | + + + | Organization | [facility] | [...] #[address] | | | | | [address] | | + + + + + Care Team Providers + +------+ + | Care Principal Biostatistician Name | Role | Phone | [...] + + | 06/14/ | Office | [facility] [place] | [place], | Need for vaccination | | 2014 | Visit | [address]ULMONARY [address] | Ling Frazier MD | with 13-polyvalent | | | | [place], | | pneumococcal | | | | [place] [address] | | conjugate vaccine | | | | [phone] | | (Primary Dx); COPD | | [...] Ling Lowe MD - 06/14/2014 1:24 PM [id number] is a free service to help you [...] is available in both En glish and Bulgarian with translation and TTY services. It is [...] to smoke . You might try calling [facility] and see if they offer classes on quitting smoking. [facility] offers free smoking cessation classes. We [...] or a bout 1 lap around the [place]. He is doing physical therapy, but he [...] He is currently on 3 L[facility]. He reports good compliance. He is using [...] tablet Take 81 mg by mouth Daily. hwfrsxp-ohyaefandrgqy-pddpfnqe (HEADACHE RELIEF) 250-250-65 MG per tablet Take [...] made to ensure accuracy; however, inadvertent computerized deoiling machine operator errors may be pre sent. [...]
--- OUTSIDE RECORDS SUMMARY | ~2019-02-26 | XMS | Encounter Summary ---
Demographics + + + | Address | [address] | | | [place] [address] | + + + | Home Phone [...] | Author | [facility] | | | and Vargasana | + + + | Organization | [facility] | | | and Vargasana | + + + | Address | Unknown | + + + | Phone | Unavailable | + + + Support + + + + + | Name | Relationship | Address | Phone | + + + + + | Palak Aguilar | ECON | [address] | | | | | [address] | | + + + + + Care Team Providers + +------+ + | Care Prepared Foods Service Team Member Name | Role | Phone | + +------+ + | Jose Angel Reina MD | PCP | | + +------+ + Reason for Visit +---------+ + | Reason | Comments | +---------+ + | Results | PFT performed at [facility] | +---------+ + Encounter Details +--------+ + [...] | [place]) | | | | [place] [address] | | | | | | [phone] | | | +--------+ + + + [...]
--- OUTSIDE RECORDS SUMMARY | ~2019-02-26 | XMS | Encounter Summary ---
Demographics + + + | Address | [address] | | | [place] [address] | + + + | Home Phone [...] + | Author | [facility] | | | and Vargasana | + + + | Organization | [facility] | | | and Vargasana | + + + | Address | Unknown | + + + | Phone | Unavailable | + + + Support + + + + + | Name | Relationship | Address | Phone | + + + + + | Palak Aguilar | ECON | [address], [place] | | | | | [address] | | + + + + + Care Team Providers + +------+ + | Care City Superintendent Of Schools Name | Role | Phone | + +------+ + PCP | Unavailable | + +------+ + Encounter Details +--------+ + + + + | Date | Type | Department | Care Team | Description | +--------+ + + + + | 01/19/ | Hospital | [facility] | | | | 2000 | Encounter | MED CTR GENERIC OP | | | | | | CONV DEPT [address] | | | | | | [place], | | | | | | [place] [address] | | | | | | [phone] | | | +--------+ + + + [...]
--- OUTSIDE RECORDS SUMMARY | ~2019-02-26 | XMS | Encounter Summary ---
Demographics + + + | Address | [address] | | | [place] [address] | + + + | Home Phone [...] | Author | [facility] | | | and Vargasana | + + + | Organization | [facility] | | | and Vargasana | + + + | Address | Unknown | + + + | Phone | Unavailable | + + + Support + + + + + | Name | Relationship | Address | Phone | + + + + + | Palak Aguilar | ECON | [address] | | | | | [address] | | + + + + + Care Team Providers + +------+ + | Care Store Leader Name | Role | Phone | + +------+ + | Jose nAgel Reina MD | PCP | | + +------+ + Encounter Details +--------+ + + + + | Date | Type | Department | Care Team | Description | +--------+ + + + + | 06/18/ | Orders Only | [facility] [place] | Galina Veliz, | Hypoxemia | | 2016 | | [address]MON[address] | RN | | | | | [place], | | | | | | [place] [address] | | | | | | [phone] | | | +--------+ + + + [...]
--- OUTSIDE RECORDS SUMMARY | ~2019-02-26 | XMS | Encounter Summary ---
Demographics + + + | Address | [address] | | | [place] [address] | + + + | Home Phone [...] | Author | [facility] | | | and Vargasana | + + + | Organization | [facility] | [...] #[address] | | | | | [address] | | + + + + + Care Team Providers + +------+ + | Care Development And Housing Director Name | Role | Phone | [...] [place] | | | | | | [address] | | | | | | [phone] | | | +--------+ + + + [...]
--- OUTSIDE RECORDS SUMMARY | ~2019-02-26 | XMS | Encounter Summary ---
Demographics + + + | Address | [address] | | | [place] [address] | + + + | Home Phone [...] | Author | [facility] | | | and Vargasana | + + + | Organization | [facility] [...] #[address] | | | | | [address] | | + + + + + Care Team Providers + +------+ + | Care Coordinator Hotels Name | Role | Phone | + [...] + + | 01/21/ | Office | [facility] | [place], | COPD (chronic | | 2014 | Visit | [address]ULMONARY [address] | Ling Frazier MD | obstructive | | | | [place], | | pulmonary disease); | | | | [place] [address] | | Nocturnal hypoxemia | | | | [phone] | | due to emphysema | | | | | | ([facility]); Tobacco | | | | [...] [facility]. At their last visit, we had kept him on Spiriva, Advair and Daliresp. Since their last visi t he feels like he has been doing okay. He had some type of virus about a month ago and was seen at [facility], but it sounds like this was limited [...] tablet Take 81 mg by mouth Daily. vptahfe-iadkheqlwaqrt-kpqokyqu (HEADACHE RELIEF) 250-250-65 MG per tablet Take [...] made to ensure accuracy; however, inadvertent computerized manager care management errors may be pre sent. documented in [...]
--- OUTSIDE RECORDS SUMMARY | ~2019-02-26 | XMS | Encounter Summary ---
Demographics + + + | Address | [address] | | | [place] [address] | + + + | Home Phone | | + + + | Preferred Language | Unknown | + + + | Marital Status | | + + + | Congregational Affiliation | 1061 | + + + | Race | Unknown | + + + | Ethnic Group | Unknown | + + + Author + + + | Author | [facility] | | | and Vargasana | + + + | Organization | [facility] | | | and Vargasana | + + + | Address | Unknown | + + + | Phone | Unavailable | + + + Support + + + + + | Name | Relationship | Address | Phone | + + + + + | Palak Aguilar | ECON | [address] | | | | | [address] | | + + + + + Care Team Providers + +------+ + | Care Manager Mass Name | Role | Phone | + [...] Frazier MD | | | | | [place], | | | | | | [place] [address] | | | | | | [phone] | | | +--------+--------+ + + + [...]
--- OUTSIDE RECORDS SUMMARY | ~2019-02-26 | XMS | Encounter Summary ---
Demographics + + + | Address | [address] | | | [place] [address] | + + + | Home Phone [...] Author | [facility] | | | and Vargasana | + + + | Organization | [facility] | | | and Vargasana | + + + | Address | Unknown | + + + | Phone | Unavailable | + + + Support + + + + + | Name | Relationship | Address | Phone | + + + + + | Palak Aguilar | ECON | [address] | | | | | [address] | | + + + + + Care Team Providers + +------+ + | Care Rag Cutting Machine Feeder Name | Role | Phone | + [...] Frazier MD | | | | | [place], | | | | | | [place] [address] | | | | | | [phone] | | | +--------+--------+ + + + [...]
--- OUTSIDE RECORDS SUMMARY | ~2019-02-26 | XMS | Encounter Summary ---
Demographics + + + | Address | [address] | | | [place] [address] | + + + | Home Phone [...] + | Author | [facility] | | | and Vargasana | + + + | Organization | [facility] | | | and Vargasana | + + + | Address | Unknown | + + + | Phone | Unavailable | + + + Support + + + + + | Name | Relationship | Address | Phone | + + + + + | Palak Aguilar | ECON | [address] | | | | | [address] | | + + + + + Care Team Providers + +------+ + | Care Sand Blaster Name | Role | Phone | + +------+ + | Jose Angel Reina MD | PCP | | + +------+ + Encounter Details +--------+ + + + + | Date | Type | Department | Care Team | Description | +--------+ + + + + | 06/16/ | [facility] | [facility] | [place], | Chronic obstructive | | 2016 | Encounter | MED CTR PULMONARY | Ling Frazier MD | pulmonary disease, | | | | FUN[address] | | unspecified COPD | | | | [place], | | type (HCC); | | | | [place] [address] | | Hypoxemia | | | | [phone] | | | +--------+ + + + [...] | | | | | | | ([facility] [...]
--- OUTSIDE RECORDS SUMMARY | ~2019-02-26 | XMS | Encounter Summary ---
Demographics + + + | Address | [address] | | | [place] [address] | + + + | Home Phone [...] + | Author | [facility] | | | and Vargasana | + + + | Organization | [facility] [...] #[address] | | | | | [address] | | + + + + + Care Team Providers + +------+ + | Care Facilities Plant Engineer Name | Role | Phone | [...] Frazier MD | | | | | [place], | | | | | | [place] [address] | | | | | | [phone] | | | +--------+--------+ + + + [...]
--- OUTSIDE RECORDS SUMMARY | ~2019-02-26 | XMS | Encounter Summary ---
Demographics + + + | Address | [address] | | | [place] [address] | + + + | Home Phone [...] | [facility] | | | and Vargasana | + + + | Organization | [facility] | | | and Vargasana | + + + | Address | Unknown | + + + | Phone | Unavailable | + + + Support + + + + + | Name | Relationship | Address | Phone | + + + + + | Palak Aguilar | ECON | [address] | | | | | [address] | | + + + + + Care Team Providers + +------+ + | Care Jacquard Twine Polisher Operator Name | Role | Phone | [...] Frazier MD | | | | | [place], | | | | | | [place] [address] | | | | | | [phone] | | | +--------+--------+ + + + [...]
--- OUTSIDE RECORDS SUMMARY | ~2019-02-26 | XMS | Encounter Summary ---
Demographics + + + | Address | [address] | | | [place] [address] | + + + | Home Phone [...] | Author | [facility] | | | and Vargasana | + + + | Organization | [facility] [...] #[address] | | | | | [address] | | + + + + + Care Team Providers + +------+ + | Care Microelectronics Engineer Name | Role | Phone | [...] + + | 02/16/ | Office | [facility] | Karlos Craig, | Lumbar spinal | | 2012 | Visit | MEDICINE | [address] | stenosis (Primary | | | | RE[address] | [place] | Dx); Lumbar facet | | | | [place] | [address] | arthropathy; | | | | [place] [address] | | Lumbalgia; Ataxia | | | | [phone] | | | +--------+---------+ + + + [...] al supply store. A consult at [facility] was been requested by Dr. Williamson, with [...] office note has been dictated. Job ID# [id number] signed by Karlos Craig MD at 02/16/2013 3:30 PM Arleen Lo RN - 02/16/2013 1:49 PM PSTPatient states he has intermittent pain to bilateral legs and lower back. Karlos Berumen MD - 02/16/2013 12:00 AM PST [facility] [address] [place] [address] FAX: [phone] OFFICE VISIT PHYSICAL MEDICINE REHABILITATION PROGRESS NOTE [...] consult in the neurology department at [facility]. This i s still pending. When he [...] the MRI. A consult request with [facility] was replaced today so that he can have an appointment with them to evaluate and treat his ataxi a potentially. He was instructed to continue home exercise program as outlined by physical therapy on a daily basis indefinitely. Approximately 30 minutes was spent [id number]-dytx today with Mr. Aguilar over half of which w as spent formulating and discussing his medical treatment plan. Thank you for allowing me t o be involved in the care of your patient. If you have any questions regarding the care of Mr. Aguilar please do not hesitate to call. Karlos Craig Jr, MD GEM / SB JOB #: [id number] cc: Peter Reina MD documented in this [...]
--- OUTSIDE RECORDS SUMMARY | ~2019-02-26 | XMS | Encounter Summary ---
Demographics + + + | Address | [address] | | | [place] [address] | + + + | Home Phone [...] [facility] | | | and Vargasana | + + + | Organization | [facility] | | | and Vragasana | + + + | Address | Unknown | + + + | Phone | Unavailable | + + + Support + + + + + | Name | Relationship | Address | Phone | + + + + + | Palak Aguilar | ECON | [address] | | | | | [address] | | + + + + + Care Team Providers + +------+ + | Care Electrical Repairer Name | Role | Phone | [...] Lisa GreenwoodLeonora | | | | | [phone] | [place] [address] | | +--------+ + + + + [...]
--- OUTSIDE RECORDS SUMMARY | ~2019-02-26 | XMS | Encounter Summary ---
Demographics + + + | Address | [address] | | | [place] [address] | + + + | Home Phone [...] | Author | [facility] | | | and Vargasana | + + + | Organization | [facility] | | | and Vargasana | + + + | Address | Unknown | + + + | Phone | Unavailable | + + + Support + + + + + | Name | Relationship | Address | Phone | + + + + + | Palak Aguilar | ECON | [address] | | | | | [address] | | + + + + + Care Team Providers + +------+ + | Care Anesthesiology Technologist Name | Role | Phone | [...] MD | | | | | [place], | | | | | | [place] [address] | | | | | | [phone] | | | +--------+--------+ + + + [...]
--- OUTSIDE RECORDS SUMMARY | ~2019-02-26 | XMS | Encounter Summary ---
Demographics + + + | Address | [address] | | | [place] [address] | + + + | Home Phone [...] | [facility] | | | and Vargasana | + + + | Organization | [facility] [...] #[address] | | | | | [address] | | + + + + + Care Team Providers + +------+ + | Care Durability Technician Name | Role | Phone | [...] Frazier MD | | | | | [place], | | | | | | [place] [address] | | | | | | [phone] | | | +--------+ + + + [...]
--- OUTSIDE RECORDS SUMMARY | ~2019-02-26 | XMS | Encounter Summary ---
Demographics + + + | Address | [address] | | | [place] [address] | + + + | Home Phone [...] [facility] | | | and Vargasana | + + + | Organization | [facility] [...] #[address] | | | | | [address] | | + + + + + Care Team Providers + +------+ + | Care Chief Revenue Officer Name | Role | Phone | [...] | 07/06/ | Refill | [facility] [place] [facility] | Karlos Craig, | Medication Refill | | 2013 | | MEDICINE | [place] [address] | | | | | [address] | [place], [place] | | | | | [address] [place] | [address] | | | | | [place] [address] | | | | | | [phone] | | | +--------+--------+ + + + [...]
--- OUTSIDE RECORDS SUMMARY | ~2019-02-26 | XMS | Encounter Summary ---
Demographics + + + | Address | [address] | | | [place] [address] | + + + | Home Phone [...] | Author | [facility] | | | and Vargasana | + + + | Organization | [facility] | | | and Vargasana | + + + | Address | Unknown | + + + | Phone | Unavailable | + + + Support + + + + + | Name | Relationship | Address | Phone | + + + + + | Palak Aguilar | ECON | #[id number] | | | | | [address] | | + + + + + Care Team Providers + +------+ + | Care Manager Cath Lab Name | Role | Phone | + [...] Frazier MD | | | | | [place], | | | | | | [place] [address] | | | | | | [phone] | | | +--------+--------+ + + + [...]
--- OUTSIDE RECORDS SUMMARY | ~2019-02-26 | XMS | Encounter Summary ---
Demographics + + + | Address | [address] | | | [place] [address] | + + + | Home Phone [...] | Author | [facility] | | | and Vargasana | + + + | Organization | [facility] | | | and Vargasana | + + + | Address | Unknown | + + + | Phone | Unavailable | + + + Support + + + + + | Name | Relationship | Address | Phone | + + + + + | Palak Aguilar | ECON | #[id number] [place] | | | | | [address] | | + + + + + Care Team Providers + +------+ + | Care Systems Analyst Developer Name | Role | Phone | [...] PHYSIATRY [address] | MD [address] | | | | | [place], | [place], [place] | | | | | [place] [address] | [address] | | | | | [phone] | | | +--------+ + + + [...]
--- OUTSIDE RECORDS SUMMARY | ~2019-02-26 | XMS | Encounter Summary ---
Demographics + + + | Address | [address] | | | [place] [address] | + + + | Home Phone [...] Author | [facility] | | | and Vargasana | + + + | Organization | [facility] | [...] #[id number] | | | | | [address] | | + + + + + Care Team Providers + +------+ + | Care Dray Truck Driver Name | Role | Phone [...] [address] | Ling Frazier MD | ([facility]) (Primary Dx); | | | | [place], | | Tobacco abuse; | | | | [place] [address] | | Nocturnal hypoxemia; | | | | [phone] | | Restless legs | | | [...] rator and one on your car dashboard. [id number] Rudy Min, [address] [place] [address], [place] [address]. All rights reserve d. This information is [...]
--- OUTSIDE RECORDS SUMMARY | ~2019-02-26 | XMS | Encounter Summary ---
Demographics + + + | Address | [address] | | | [place] [address] | + + + | Home Phone [...] + | Author | [facility] | | | and Vargasana | + + + | Organization | [facility] | | | and Vargasana | + + + | Address | Unknown | + + + | Phone | Unavailable | + + + Support + + + + + | Name | Relationship | Address | Phone | + + + + + | Palak Aguilar | ECON | [id number] | | | | | [address] | | + + + + + Care Team Providers + +------+ + | Care Real Estate Rep Name | Role | Phone | + [...] | Leg | [place], | [address] | | | Required | Rehabilitatio | weakness | Ling B, | [address] | | | | n | | MD [address] | [place], | | | | | | [address] | [place] [address] | | | | | | [place], | Phone: | | | | | | [place] [address] | [phone] | | | | | | | Fax: | | | | | | | [phone] | +--------+ + + + + + Reason for Visit + + + | Reason | Comments | + + + | Follow-up | | + + + Encounter Details +--------+---------+ + + + | Date | Type | Department | Care Team | Description | +--------+---------+ + + + | 11/21/ | Office | [facility] [place] | [place]enstein, | COPD (chronic | | 2012 | Visit | PULMONARY [address] | Ling Frazier MD | obstructive | | | | [place], | | pulmonary disease) | | | | [place] [address] | | ([facility]) (Primary Dx); | | | | [phone] | | Nocturnal hypoxemia; | | | [...] MD Sarah Johnson [facility] [address] [place], [address] HPI Nazario Aguilar is a 62 y.o. male patient of Jose Angel Reina here today for follow u p of COPD. At their last visit, we had treated him with prednisone and doxycycline. We repeated his ov ernight oximetry on room air, which showed that he desaturated, and we recommended he stay o n 3L at night. He had repeat spirometry done in [place] and it showed mild obstructive cadence g [...] a work up done by Dr. Reina ([facility] what was done, the patient is [...] were performed on October 12, [address] [facility] and were r eviewed and interpreted in [...] made to ensure accuracy; however, inadvertent computerized bench assembler operator errors may be pre sent. documented [...]
--- OUTSIDE RECORDS SUMMARY | ~2019-02-26 | XMS | Encounter Summary ---
Demographics + + + | Address | [address] | | | [place] [address] | + + + | Home Phone [...] | Author | [facility] | | | and Vargasana | + + + | Organization | [facility] | | | and Vargasana | + + + | Address | Unknown | + + + | Phone | Unavailable | + + + Support + + + + + | Name | Relationship | Address | Phone | + + + + + | Palak Aguilar | ECON | [id number] | | | | | [address] | | + + + + + Care Team Providers + +------+ + | Care Locomotive Engineer Name | Role | Phone | + +------+ + PCP | Unavailable | + +------+ + Encounter Details +--------+ + + + + | Date | Type | Department | Care Team | Description | +--------+ + + + + | 05/04/ | [facility] | [facility] | Chrissy, | | | 2011 | Encounter | MED CTR SLEEP | Ling Frazier MD | | | | | CENTER [address] | | | | | | [place] | | | | | | [address] | | | | | | [phone] | | | +--------+ + + + [...]
--- OUTSIDE RECORDS SUMMARY | ~2019-02-26 | XMS | Clinical Summary ---
Demographics + + + | Address | [address] | | | [place] [address] | + + + | Home Phone [...] | Author | [facility] | | | and Vargasana | + + + | Organization | [facility] [...] #[address] | | | | | [address] | | + + + + + Care Team Providers + +------+ + | Care Painter Helper Sign Name | Role | Phone | + [...] | | | | | | type (FORMERLY [facility]) | | | | | | [...] | [employer] | [facility] | [id number] | 07/08/19 | | | Medica | [...] . | al/Fam | | 1951 | [phone] | [place] [address] | | | meena | | | 7 (Home) | | + +--------+ +--------+ + + Advance Directives + + + + + | Type | Date Recorded | Patient | Explanation | | | | Arts And Crafts Instructor | | + + + + + | Power of | | | | | Pit Operator | | | | + + + + + | Advance | 04/20/2014 8:49 | | | | Directive | AM | | | + + + + +
--- OUTSIDE RECORDS SUMMARY | ~2019-02-26 | XMS | Encounter Summary ---
Demographics + + + | Address | [address] | | | [place] [address] | + + + | Home Phone [...] Author | [facility] | | | and Vargasana | + + + | Organization | [facility] | [...] #[address] | | | | | [address] | | + + + + + Care Team Providers + +------+ + | Care Cheerleading Coach Name | Role | Phone | [...] Frazier MD | | | | | [place], | | | | | | [place] [address] | | | | | | [phone] | | | +--------+--------+ + + + [...]
--- OUTSIDE RECORDS SUMMARY | ~2019-02-26 | XMS | Encounter Summary ---
Demographics + + + | Address | [address] | | | [place] [address] | + + + | Home Phone [...] Author | [facility] | | | and Vargasana | + + + | Organization | [facility] [...] #[address] | | | | | [address] | | + + + + + Care Team Providers + +------+ + | Care Patient Escort Name | Role | Phone | [...] | obstruction, not | | | | [place], | | elsewhere classified | | | | [place] [address] | | ([facility]) | | | | [phone] | | | +--------+ + + + [...]
--- OUTSIDE RECORDS SUMMARY | ~2019-02-26 | XMS | Encounter Summary ---
Demographics + + + | Address | [address] | | | [place] [address] | + + + | Home Phone [...] Author | [facility] | | | and Vargasana | + + + | Organization | [facility] | | | and Vargasana | + + + | Address | Unknown | + + + | Phone | Unavailable | + + + Support + + + + + | Name | Relationship | Address | Phone | + + + + + | Palak Aguilar | ECON | [id number] | | | | | [address] | | + + + + + Care Team Providers + +------+ + | Care Boiler Tube Reamer Name | Role | Phone | + +------+ + PCP | Unavailable | + +------+ + Encounter Details +--------+ + + + + | Date | Type | Department | Care Team | Description | +--------+ + + + + | 02/24/ | [facility] | [facility] | Chrissy, | | | 2010 | Encounter | MED CTR GENERIC OP | Ling Frazier MD | | | | | CONV DEPT [address] | | | | | | [place], | | | | | | [place] [address] | | | | | | [phone] | | | +--------+ + + + [...]
--- OUTSIDE RECORDS SUMMARY | ~2019-02-26 | XMS | Encounter Summary ---
Demographics + + + | Address | [address] | | | [place] [address] | + + + | Home Phone [...] | Author | [facility] | | | and Vargasana | + + + | Organization | [facility] | | | and Vargasana | + + + | Address | Unknown | + + + | Phone | Unavailable | + + + Support + + + + + | Name | Relationship | Address | Phone | + + + + + | Palka Aguilar | ECON | [address] | | | | | [address] | | + + + + + Care Team Providers + +------+ + | Care Industrial Controls Technician Name | Role | Phone | [...] + + | 07/06/ | Office | [facility] | Karlos Craig, | Neck pain on right | | 2013 | Visit | MEDICINE | [address] | side (Primary Dx); | | | | REHABILITATION [address] | [place] | Cervical strain, | | | | [address] [place] | [address] | initial encounter; | | | | [place] [address] | | Lumbar facet | | | | [phone] | | arthropathy; | | | | [...] indefinitely. If back pain returns return to [facility] earlier, we may consider repeating facet injections in the future. Take muscle relaxant for your right neck pain for the next 10 days. If your neck pain pers ists, return to the clinic earlier. Follow up with [facility] regarding your ataxia. If your right shoulder pain gets worse, return to the clinic. Return to the clinic in 3 months, unless symptoms fail to improve or get worse.Electronical ly signed by Karlos Craig MD at 07/06/2013 1:55 PM PDT documented in this encounter Progress Notes Karlos Craig MD - 07/06/2013 1:55 PM PDTThis office note has been dictated. Job ID# [id number] signed by Karlos Craig MD at 07/06/2013 2:17 PM Arleen Ashby RN - 07/06/2013 1:07 PM PDTPatient states 5/10 pain to neck. arlos Craig MD - 07/06/2013 12:00 AM PDT [facility] [address] [place] [address] FAX: [phone] OFFICE VISIT PHYSICAL MEDICINE REHABILITATION PROGRESS NOTE [...] with ataxia. 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 DATABASE: No new imaging or laboratory data [...] facet injections. He will followup w ith [facility] regarding his ataxia. In regards to his [...] worse. Greater than 30 minutes was spent [id number] today with Mr. Aguilar, over half of which w as spent formulating and discussing his medical treatment plan. Thank you for allowing me to be involved in the care of your patient. If you have any quest ions regarding the care of Mr. Aguilar, please do not hesitate to call. Karlos Craig Jr, MD GEM / PAP JOB #: [id number] cc: Peter Reina MD documented in this [...]
--- OUTSIDE RECORDS SUMMARY | ~2019-02-26 | XMS | Encounter Summary ---
Demographics + + + | Address | [address] | | | [place] [address] | + + + | Home Phone [...] | Author | [facility] | | | and Vargasana | + + + | Organization | [facility] | | | and Vargasana | + + + | Address | Unknown | + + + | Phone | Unavailable | + + + Support + + + + + | Name | Relationship | Address | Phone | + + + + + | Palak Aguilar | ECON | [id number] | | | | | [address] | | + + + + + Care Team Providers + +------+ + | Care Corporate Auditor Name | Role | Phone | [...] + | 06/16/ | Office | [facility] | [place]enstein, | Chronic obstructive | | 2015 | Visit | PULMONARY [address] | Ling Frazier MD | pulmonary disease, | | | | [place], | | unspecified COPD | | | | [place] [address] | | type (HCC) (Primary | | | | [phone] | | Dx); Hypoxemia; | | | [...] e nded up in the hospital at [facility] for his exacerbation. While in the hospital, [...] [facility]. He reports good compliance. He was discharged [...] made to ensure accuracy; however, inadvertent computerized terrazzo helper errors may be pre sent. documented in [...]
--- OUTSIDE RECORDS SUMMARY | ~2019-02-26 | XMS | Encounter Summary ---
Demographics + + + | Address | [address] | | | [place] [address] | + + + | Home Phone [...] | Author | [facility] | | | and Vargasana | + + + | Organization | [facility] | | | and Vargasana | + + + | Address | Unknown | + + + | Phone | Unavailable | + + + Support + + + + + | Name | Relationship | Address | Phone | + + + + + | Palak Aguilar | ECON | [id number] [place] | | | | | [address] | | + + + + + Care Team Providers + +------+ + | Care Bulb Grader Name | Role | Phone | [...] + + | 05/20/ | Office | [facility] | [place], | COPD with acute | | 2015 | Visit | PULMONARY [address] | Ling Frazier MD | exacerbation (HCC) | | | | [place], | | (Primary Dx); | | | | [place] [address] | | Nocturnal hypoxemia | | | | [phone] | | due to emphysema | | [...] PSTI would not ride a cart at [facility]. Instead, when you go shopping, start [...] 64 y.o. male patient of Jose Angel Renia MD [facility] for follow up of COPD. At their last visit, we had continued him on Advair, Spiriva and Daliresp. Since their last visit he feels like he has been doing not so great. He was told he had bronchitis recently by the CORE DRILL OPERATOR down in [place]. He was given a 5 day course [...] Currently he is able to walk across [facility] at his own pace on level [...] Take 81 mg by mouth Daily. [DISCONTINUED] eisxere-doroiuukgfiwg-hxwidaob (HEADACHE RELIEF) 250-250-65 MG per table t [...] to ensure accuracy; however, inadvertent computerized manufacturing electrician errors may be pre sent. documented in [...]
--- OUTSIDE RECORDS SUMMARY | ~2019-02-26 | XMS | Encounter Summary ---
Demographics + + + | Address | [address] | | | [place] [address] | + + + | Home Phone [...] [facility] | | | and Vargasana | + + + | Organization | [facility] | [...] #[address] | | | | | [address] | | + + + + + Care Team Providers + +------+ + | Care Belt Turner Name | Role | Phone | + [...] Frazier MD | | | | | [place], | | | | | | [place] [address] | | | | | | [phone] | | | +--------+--------+ + + + [...]
--- OUTSIDE RECORDS SUMMARY | ~2019-02-26 | XMS | Encounter Summary ---
Demographics + + + | Address | [address] | | | [place] [address] | + + + | Home Phone [...] [facility] | | | and Vargasana | + + + | Organization | [facility] | | | and Vargasana | + + + | Address | Unknown | + + + | Phone | Unavailable | + + + Support + + + + + | Name | Relationship | Address | Phone | + + + + + | Palak Aguilar | ECON | [id number] | | | | | [address] | | + + + + + Care Team Providers + +------+ + | Care Armature Winder Repairer Name | Role | Phone | + +------+ + | Jose Angel eRina MD | PCP | | + +------+ + Reason for Visit +--------+ + | Reason | Comments | +--------+ + | COPD | 2 month follow up | +--------+ + Encounter Details +--------+---------+ + + + | Date | Type | Department | Care Team | Description | +--------+---------+ + + + | 09/15/ | Office | [facility] | Offenstein, | Chronic obstructive | | 2016 | Visit | PULMONARY [address] | Ling Frazier MD | pulmonary disease, | | | | [place], | | unspecified COPD | | | | [place] [address] | | type ([facility]) (Primary | | | | [phone] | | Dx); Allergic | | | | | | rhinitis, | | | | | | unspecified allergic | | | | | | rhinitis type; | | | | | | Nocturnal hypoxemia | | | | | | due to emphysema | | | | | | ([facility]); Tobacco abuse | +--------+---------+ + + + [...] up to see the doctor coming from [facility] to [place]. No medication changes. 3:3 1 PM PDT [...] in the yard. He usually uses an [employer] alex cart at [facility] when he can. He does cough some of the time, but not all of the time. He is bringing up mucous, which is clear in color. He has been evaluated for nocturnal oxygen and does use it. He is currently on 3 LPM at [facility]. He reports good compliance. Past Medical History [...] Chronic obstructive pulmonary disease, unspecified COPD type ([facility]) J44.9 496 He has been more stable [...] made to ensure accuracy; however, inadvertent computerized elementary school counselor errors may be pre sent. documented in this encounter Plan of Treatment Not on filedocumented as of this encounter Visit Diagnoses + + | Diagnosis | + + | Chronic obstructive pulmonary disease, unspecified COPD type (HCC) - Primary | + + | Allergic rhinitis, unspecified allergic rhinitis type | + + | Nocturnal hypoxemia due to emphysema ([facility]) Other emphysema | + + | Tobacco abuse Tobacco use disorder | + + documented in this encounter
--- OUTSIDE RECORDS SUMMARY | ~2019-02-26 | XMS | Encounter Summary ---
Demographics + + + | Address | [address] | | | [place] [address] | + + + | Home Phone [...] Author | [facility] | | | and Vargasana | + + + | Organization | [facility] | [...] #[address] | | | | | [address] | | + + + + + Care Team Providers + +------+ + | Care Hand Stoner Name | Role | Phone | + [...] MD | | | | | [place], | | | | | | [place] [address] | | | | | | [phone] | | | +--------+--------+ + + + [...]
--- OUTSIDE RECORDS SUMMARY | ~2019-02-26 | XMS | Encounter Summary ---
Demographics + + + | Address | [address] | | | [place] [address] | + + + | Home Phone [...] Author | [facility] | | | and Vargasana | + + + | Organization | [facility] | | | and Vargasana | + + + | Address | Unknown | + + + | Phone | Unavailable | + + + Support + + + + + | Name | Relationship | Address | Phone | + + + + + | Palak Aguilar | ECON | [address] | | | | | [address] | | + + + + + Care Team Providers + +------+ + | Care Oyster Opener Name | Role | Phone | [...] Frazier MD | | | | | [place], | | | | | | [place] [address] | | | | | | [phone] | | | +--------+--------+ + + + [...]
--- OUTSIDE RECORDS SUMMARY | ~2019-02-26 | XMS | Encounter Summary ---
Demographics + + + | Address | [address] | | | [place] [address] | + + + | Home Phone [...] Author | [facility] | | | and Vargasana | + + + | Organization | [facility] | [...] #[id number] | | | | | [address] | | + + + + + [...] | weakness | Ling B, | [address] | | | | n | | MD [address] | [place], | | | | | | [address] | [place] [address] | | | | | | [place], | Phone: | | | | | | [place] [address] | [phone] | | | | | | | Fax: | | | | | | | [phone] | +--------+ + + + + + [...] MD | obstructive | | | | [place], | | pulmonary disease) | | | | [place] [address] | | ([facility]) (Primary Dx); | | | | [phone] | | Nocturnal hypoxemia; | | | [...] MD Sarah Johnson [facility] [address] [place], [address] HPI Nazario Aguilar is a 62 y.o. male patient of Jose Angel Reina here today for follow u p of COPD. At their last visit, we had treated him with prednisone and doxycycline. We repeated his ov ernight oximetry on room air, which showed that he desaturated, and we recommended he stay o n 3L at night. He had repeat spirometry done in [place] and it showed mild obstructive cadence g [...] work up done by Dr. Reina (formerly [facility] what was done, the patient is [...] were performed on October 12, 2012 at [facility] and were r eviewed and interpreted [...] made to ensure accuracy; however, inadvertent computerized team automobile assembler errors may be pre sent. documented in [...]
--- OUTSIDE RECORDS SUMMARY | ~2019-02-26 | XMS | Encounter Summary ---
Demographics + + + | Address | [address] | | | [place] [address] | + + + | Home Phone [...] | [facility] | | | and Vargasana | + + + | Organization | [facility] | [...] #[address] | | | | | [address] | | + + + + + [...] Lisa [place] | | | | | [phone] | [place] [address] | | +--------+ + + + + [...]
--- OUTSIDE RECORDS SUMMARY | ~2019-02-26 | XMS | Encounter Summary ---
Demographics + + + | Address | [address] | | | [place] [address] | + + + | Home Phone [...] Author | [facility] | | | and Vargasana | + + + | Organization | [facility] | [...] #[id number] | | | | | [address] | | + + + + + Care Team Providers + +------+ + | Care Guncotton Packer Name | Role | Phone | [...] | Office | [facility] | Karlos Craig, | Right shoulder pain | | 2013 | Visit | PHYSIATRY [address] | [address] | (Primary Dx); | | | | [place], | [place] | Rotator cuff | | | | [place] [address] | [address] | tendonitis, right; | | | | [phone] | | Lumbalgia; Facet | | | [...] office note has been dictated. Job ID# [id number] signed by Karlos Craig MD at 12/20/2013 12:24 PM Arleen Ashby RN - 12/20/2013 11:35 AM PDTPatient states intermittent pain to right shoulder, no pain a t this time. Patient states improvement to right shoulder since having injection. Electronic ally signed by Arleen Kern RN at 12/20/2013 12:24 PM Karlos Garcia MD - 4 12:00 AM PDT [facility] [address] [place] [address] FAX: [phone] OFFICE VISIT PHYSICAL MEDICINE REHABILITATION PROGRESS NOTE [...] Greater than 25 yumiko ellen was spent ukmg-lt-uvsm today with Mr. Aguilar, over half of which was spent formulating and discussing his medical treatment plan. Karlos Craig Jr, MD [facility] / Kristine JOB #: [id number] cc: Peter Reina MD documented in this [...]
--- OUTSIDE RECORDS SUMMARY | ~2019-02-26 | XMS | Encounter Summary ---
Demographics + + + | Address | [address] | | | [place] [address] | + + + | Home Phone [...] Author | [facility] | | | and Vargasana | + + + | Organization | [facility] | [...] #[id number] | | | | | [address] | | + + + + + Care Team Providers + +------+ + | Care Paint Prepper Name | Role | Phone | + [...] | | | | History of | [address] | [address] | | | | | seizures | [place], | [place], | | | | | | [place] [address] | [place] [address] | | | | | | Phone: | Phone: | | | | | | [phone] | [phone] | | | | | | Fax: | Fax: | | | | | | [phone] | [phone] | +--------+ + + + + + Encounter Details +--------+---------+ + + + | Date | Type | Department | Care Team | Description | +--------+---------+ + + + | 12/19/ | Office | [facility] | Roderick Williamson MD [address] | Ataxia (Primary Dx); | | 2012 | Visit | [facility] | [address] | Claustrophobia; | | | | [address], | [address], | Tremor; Seizure | | | | [address] [facility] | [place] [address] | disorder (HCC) | | | | [place] [address] | [phone] | | | | | [phone] | | | +--------+---------+ + + + [...] minutes. Patient reports history of EEG at [facility] that was reported to be normal. He [...]
[~2019-02-26 01:08] MED LIST changes: +BREO ELLIPTA I1 EACH INH; +METFORMIN HCL500 M1 PO; +ROSUVASTATIN CA20 MG PO
--- OUTSIDE RECORDS SUMMARY | 2019-02-26 01:10 | XMS ---
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 Care History Social 03/09/2017 [facility] PATIENT RECEIVES FOOD STAMPS THROUGH [facility] Medical/Surgical 06/21/2018 [facility] - PER DISCUSSION WITH [facility]-PULMONARY REHAB AT [facility]. PATIENT IS NON COMPLIANT WITH THE PROGRAM. - MULTIPLE ATTEMPTS OF EDUCATION HAS BEEN PROVIDED AND OTHER RESOURCES SUCH CONNEXIONS REFERRAL FOR PATIENT HAS BEEN MADE. - PATIENT WILL BE DISCHARGED FROM PULMONARY REHAB. 03/01/2018 [facility] - PATIENT HAS WORKED WITH [facility] -PULMONARY REHAB 2 TIMES NOW AND HAS GONE THROUGH THE COMPLETE PROGRAM BOTH TIMES. - PATIENT IS NOW WORKING WITH NIDIA -RESPIRATORY THERAPIST AT [facility]. - PLEASE CONTACT NIDIA [phone] IF PATIENT IS SEEN IN THE ED DUE TO COPD/ SOB SYMPTOMS. [facility]IA CAN HELP WORK WITH PCP TO MAKE MEDICATION CHANGES/ ADJUSTMENTS. 10/07/2017 [facility] Care Recommendation: This patient has had 5 or more Emergency Department visits in the last 12 months.\T\nbsp; Patient requires education on the scope and purpose of the ED as an acute care provider not a Primary Care Provider and should not be utilized for chronic conditions.\T\nbsp; If patient returns to ED please contact Community Health WorkerJuany at [phone]. These are guidelines and the provider should exercise clinical judgment when providing care. E.D. VISIT COUNT (12 MO.) 5 [facility] TOTAL 5 NOTE: Visits indicate total known visits. ED/UCC VISIT TRACKING (12 MO.) 02/26/2019 01:08 [facility] [place] TYPE: Emergency COMPLAINT: - DIFFICULTY BREATHING 10/11/2018 11:43 [facility] [place] TYPE: Emergency COMPLAINT: - NVD 06/18/2018 14:06 [facility] [place] TYPE: Emergency COMPLAINT: - DIZZINESS, SOB DIAGNOSES: - 1 Type 2 diabetes mellitus without complications - head of mobile (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 - Lobar pneumonia, unspecified organism - Allergy status to oth drug/meds/biol subst status - Chr obstructive pulmon disease with (acute) lower resp infct - Dependence on supplemental oxygen - custodial (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 of oral hypoglycemic drugs - Chronic obstructive pulmonary disease w (acute) exacerbation - Nicotine dependence, unspecified, uncomplicated - Essential (primary) hypertension - Nasal congestion - Other residential (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 - Allergy status to other antibiotic agents status 02/28/2018 22:36 [facility] [place] TYPE: Emergency COMPLAINT: - VOMITING DIAGNOSES: - Nicotine dependence, unspecified, uncomplicated - Allergy status to oth drug/meds/biol subst status - custodial (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 - head of mobile (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 of oral hypoglycemic drugs - Allergy status to other antibiotic agents status - Other residential (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 - Chest pain, unspecified - Nausea with vomiting, unspecified - Essential (primary) hypertension - 1 Type 2 diabetes mellitus without complications - Chronic obstructive pulmonary disease w (acute) exacerbation - Dependence on supplemental oxygen 02/28/2018 12:46 [facility] [place] TYPE: Emergency COMPLAINT: - SOB DIAGNOSES: - Dependence on supplemental oxygen - 1 Type 2 diabetes mellitus without complications - Essential (primary) hypertension - Shortness of breath - Other farm appraiser (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 - Nicotine dependence, unspecified, uncomplicated - Allergy status to other antibiotic agents status - Chronic obstructive pulmonary disease w (acute) exacerbation - Allergy status to oth drug/meds/biol subst status INPATIENT VISIT TRACKING (12 MO.) 10/11/2018 11:44 [facility] [place] TYPE: Observation COMPLAINT: - VIRAL DEHYDRATION CIASTROENTERITIS DIAGNOSES: - custodial (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 of systemic steroids - Other residential (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 - head of mobile (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 of inhaled steroids - Dehydration - Epilepsy, unsp, not intractable, without status epilepticus - custodial (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 of oral hypoglycemic drugs - Vomiting, unspecified - Chronic respiratory failure with hypoxia - Viral intestinal infection, unspecified Viral int - 1 Type 2 diabetes mellitus without complications - Allergy status to oth drug/meds/biol subst status - Restless legs syndrome - Nicotine dependence, cigarettes, uncomplicated - head of mobile (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 - Dependence on supplemental oxygen - Essential (primary) hypertension - Allergy status to other antibiotic agents status - Emphysema, unspecified [email or web address]
[2019-02-26] MEDS ORDERED: AUGMENTIN 875-1 EACH PO (02:37)
--- NOTE | 2019-02-26 07:01 | EKG ---
[facility] [address] [place], [place] [address] Signed Sinus tachycardia Left axis deviation Abnormal ECG When compared with ECG of 28-FEB-2018 23:18, No significant change was found Confirmed by DUSTIN CROSS MD ([id number]) on 02/26/2019 7:01:11 AM Electronically Signed By: DUSTIN CROSS MD 02/26/19 0701 PATIENT NAME: KEVIN DAUGHERTY Electrocardiogram DATE OF : 46 PHYSICIAN: DUSTIN CROSS MD REPORT #: [id number] REPORT IS CONFIDENTIAL AND NOT TO BE RELEASED WITHOUT AUTHORIZATION
== END 2019-02-26 03:42 | disposition home or self-care (01) ==
LOC: ED 01:08
DX: J44.1 Chronic obstructive pulmonary disease with (acute) exacerbation (principal); J18.9 Pneumonia, unspecified organism; E11.9 Type 2 diabetes mellitus without complications; I10 Essential (primary) hypertension; F17.200 Nicotine dependence, unspecified, uncomplicated; Z88.8 Allergy status to other drugs, medicaments and biological substances; Z88.1 Allergy status to other antibiotic agents; Z79.899 Other long term (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; Z79.82 Long term (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; Z79.84 Long term (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 of oral hypoglycemic drugs
CPT/HCPCS: 71045; 80053; 83605; 83735; 84484; 85025; 93005; 93010; 96365; 96375; 99285-25; J0696; J2930

== ENCOUNTER 2019-08-31 21:24 | Emergency (ER) | payer MEDICARE ==
[~2019-08-31] VITALS: Ht 175.3 cm; Wt 99.8 kg
--- OUTSIDE RECORDS SUMMARY | ~2019-08-31 | XMS | Encounter Summary ---
Demographics + + + | Address | [address] | | | [place] [address] | + + + | Home Phone | | + + + | Preferred Language | Unknown | + + + | Marital Status | | + + + | Mosque Affiliation | 1061 | + + + | Race | Unknown | + + + | Ethnic Group | Unknown | + + + Author + + + | Author | [facility] | | | and [place] | + + + | Organization | [facility] | | | and [place] | + + + | Address | Unknown | + + + | Phone | Unavailable | + + + Support + + + + + | Name | Relationship | Address | Phone | + + + + + | Palak Aguilar | ECON | [id number] | | | | | [address] | | + + + + + | Tanika Jean | ECON | Unknown | | + + + + + Care Team Providers + +------+ + | Care Wheel Tuner Name | Role | Phone | + +------+ + | Jose Angel Reina MD | PCP | | + +------+ + Encounter Details +--------+ + + + + | Date | Type | Department | Care Team | Description | +--------+ + + + + | 06/14/ | Imaging | [facility] | Provider, | | | 2018 | Exam | [facility] | MD [address] | | | | | IMAGING [address] | [address] | | | | | [address] [facility] | [place] [address] | | | | | [place] [address] | | | | | | [phone] | | | +--------+ + + + + Social History + + + +--------+------+ | Tobacco Use | Types | Packs/Day | Years | Date | | | | | Used | | + + + +--------+------+ | Current Every Day | Cigarettes | 2 | 44 | | | Smoker | | | | | + + + +--------+------+ + +---+---+---+ | Smokeless Tobacco: | | | | | Never Used | | | | + +---+---+---+ + + | Comments: currently 1ppd | + + + + +---------+ + | Alcohol Use | Drinks/Week | oz/Week | Comments | + + +---------+ + | No | 0 Standard drinks | 0.0 | | | | or equivalent | | | + + +---------+ + + + + | Sex Assigned at | Date Recorded | | | | + + + | Not on file | | + + + + + + + | Job Start Date | Occupation | Industry | + + + + | Not on file | Not on file | Not on file | + + + + + + + + | Travel History | Travel Start | Travel End | + + + + + + | No recent travel history available. | + + documented as of this encounter Plan of Treatment +--------+ + + + + | Date | Type | Specialty | Care Team | Description | +--------+ + + + + | 11/16/ | Appointment | Radiology | Alfonso Wallace MD | | | 2019 | | | [address] | | | | | | [facility] | | | | | | [address] | | | | | | | | +--------+ + + + + documented as of this encounter Procedures + +--------+ + + + | Procedure Name | Priori | Date/Time | Associated Diagnosis | Comments | | | ty | | | | + +--------+ + + + | XR CHEST 2 VIEWS | Routin | 05/27/2017 | | Results for this | | | e | 9:25 AM | | procedure are in the | | | | PST | | results section. | + +--------+ + + + documented in this encounter Results XR Chest 2 VW (05/27/2017 9:25 AM PST) + + | Specimen | + + | | + + + + + | Narrative | Performed At | + + + | External films for comparison only - no result from [facility]. | [facility] | + + + + +---------+ + + | Performing | Address | City/State/Zipcode | Phone Number | | Organization | | | | + +---------+ + + | [facility] | | | | + +---------+ + + documented in this encounter Visit Diagnoses Not on filedocumented in this encounter"
--- OUTSIDE RECORDS SUMMARY | ~2019-08-31 | XMS | Encounter Summary ---
Demographics + + + | Address | [address] | | | [place] [address] | + + + | Home Phone | | + + + | Preferred Language | Unknown | + + + | Marital Status | | + + + | Judaism Affiliation | 1061 | + + + | Race | Unknown | + + + | Ethnic Group | Unknown | + + + Author + + + | Author | [facility] | | | and [place] | + + + | Organization | [facility] | | | and [place] | + + + | Address | Unknown | + + + | Phone | Unavailable | + + + Support + + + + + | Name | Relationship | Address | Phone | + + + + + | Palak Gipsonock | ECON | [id number] [place] | | | | | [address] | | + + + + + | Tanika Jean | ECON | Unknown | | + + + + + Care Team Providers + +------+ + | Care Slabber Name | Role | Phone | + +------+ + | No, Physician | PCP | Unavailable | + +------+ + Reason for Visit + + + | Reason | Comments | + + + | Medication Refill | | + + + Encounter Details +--------+--------+ + + + | Date | Type | Department | Care Team | Description | +--------+--------+ + + + | 03/11/ | Refill | [facility] | [place], | Medication Refill | | 2012 | | PULMONARY [address] | Ling Frazier MD | | | | | [place], | | | | | | [place] [address] | | | | | | [phone] | | | +--------+--------+ + + + Social History + + + +--------+------+ | Tobacco Use | Types | Packs/Day | Years | Date | | | | | Used | | + + + +--------+------+ | Current Every Day | Cigarettes | 0.5 | 44 | | | Smoker | | | | | + + + +--------+------+ + +---+---+---+ | Smokeless Tobacco: | | | | | Never Used | | | | + +---+---+---+ + + | Comments: currently smoking up to 1/2 ppd | + + + + +---------+ + [...] | | | | | | [address] [place] | | | | | | [address] | | | | | | | | +--------+ + + + + documented as of this encounter Visit Diagnoses Not on filedocumented in this encounter Additional Health Concerns + + + + | Infection | Noted Time | Resolved Time | + + + + | Rule out COVID-19 | 08/14/2019 5:05 PM | 08/14/2019 5:22 PM | | | PDT | PDT | + + + + documented as of this encounter"
--- OUTSIDE RECORDS SUMMARY | ~2019-08-31 | XMS | Encounter Summary ---
Demographics + + + | Address | [address] | | | [place] [address] | + + + | Home Phone | | + + + | Preferred Language | Unknown | + + + | Marital Status | | + + + | Holiness Affiliation | 1061 | + + + [...] + + + + + | Palak Daugherty | ECON | [address] [place] | | | | | [address] | | + + + + + | Tanika Jean | ECON | Unknown | | + + + + + Care Team Providers + +------+ + | Care In Store Representative Name | Role | Phone | + +------+ + | No, Physician | PCP | Unavailable | + +------+ + Reason for Visit Auth/Cert +--------+--------+ + + + + | Status | Reason | Specialty | Diagnoses / | Referred By | Referred To | | | | | Procedures | Contact | Contact | +--------+--------+ + + + + | | | | Diagnoses | | [place], | | | | | Personal | | MD Alfonso | | | | | history of | | [address] | | | | | tobacco use, | | DR Kat | | | | | presenting | | [place] | | | | | hazards to | | [address] Phone: | | | | | health | | [phone] | | | | | Centrilobula | | Fax: | | | | | r emphysema | | [phone] | | | | | ([facility]) | | | | | | | Procedures | | | | | | | BRONCHOSCOPY | | | | | | | | | | | | | | ELECTROMAGNE | | | | | | | TIC | | | | | | | NAVIGATION | | | | | | | [[id number]] | | | +--------+--------+ + + + + Encounter Details +--------+---------+ + + + | Date | Type | Department | Care Team | Description | +--------+---------+ + + + | 08/14/ | Surgery | [facility] | Alfonso Wallace MD | BRONCHOSCOPY | | 2020 | | [facility] | [address] | ELECTROMAGNETIC | | | | INTRA OP [address] | [place], [place] | NAVIGATION | | | | [place], [place] | [address] | | | | | [address] | | | | | | [phone] | | | +--------+---------+ + + + Social History + + + +--------+ + | Tobacco Use | Types | Packs/Day | Years | Date | | | | | Used | | + + + +--------+ + | Current Every Day | Cigarettes | 2 | 46 | Started: 1966 | | Smoker | | | | | + + + +--------+ + + +---+---+---+ | Smokeless Tobacco: | | [...] + + documented as of this encounter Last Filed Vital Signs + + + + + | Vital Sign | Reading | Time Taken | Comments | + + + + + | Blood Pressure | 111/58 | 08/15/2019 10:07 AM | | | | | PDT | | + + + + + | Pulse | 84 | 08/15/2019 10:07 AM | | | | | PDT | | + + + + + | Temperature | 36.7 C (98 F) | 08/15/2019 10:07 AM | | | | | PDT | | + + + + + | Respiratory Rate | 20 | 08/15/2019 10:07 AM | | | | | PDT | | + + + + + | Oxygen Saturation | 93% | 08/15/2019 10:07 AM | | | | | PDT | | + + + + + | Inhaled Oxygen | - | - | | | Concentration | | | | + + + + + | Weight | 102.4 kg (225 lb 12 | 08/15/2019 6:33 AM | | | | oz) | PDT | | + + + + + | Height | 175.3 cm (5' 9") | 08/15/2019 6:33 AM | | | | | PDT | | + + + + + | Body Mass Index | 33.34 | 08/15/2019 6:33 AM | | | | | PDT | | + + + + + documented in this encounter Medications at Time of Discharge + + + +---------+ + + | Medication | Sig | Dispensed | Refills | Start | End Date | | | | | | Date | | + + + +---------+ + + | acetaminophen | Take 1,300 mg by | | 0 | | | | (TYLENOL) 650 MG CR | mouth Daily. | | | | | | tablet | | | | | | + + + +---------+ + + | | Inhale 3 mLs into | | 0 | | | | albuterol-ipratropiu | the lungs Every 4 | | | | | | m (DUONEB) 2.5-0.5 | hours. | | | | | | mg/3 mL SOLN | | | | | | + + + +---------+ + + | aspirin 325 mg | Take 325 mg by mouth | | 0 | | | | tablet | Daily. | | | | | + + + +---------+ + + | carBAMazepine | Take 200 mg by mouth | | 0 | 12/18/19 | | | (EPITOL) 200 mg | 4 times daily. | | | 12 | | | tablet | | | | | | + + + +---------+ + + | Cyanocobalamin | Take 1,000 mcg by | | 0 | | | | (B-12) 1000 MCG CAPS | mouth Daily. | | | | | + + + +---------+ + + | fluticasone | 1 spray by Nasal | 16 g | 11 | 09/25/19 | | | (FLONASE) 50 | route Daily. | | | 15 | | | mcg/nasal spray | | | | | | + + + +---------+ + + | | Inhale 1 puff into | 1 each | 11 | 09/16/19 | | | fluticasone-salmeter | the lungs 2 times | | | 16 | | | ol (ADVAIR DISKUS) | daily. | | | | | | 500-50 mcg/puff | | | | | | | diskus inhaler | | | | | | + + + +---------+ + + | losartan (COZAAR) | Take 1 tablet by | 30 | 0 | 07/15/19 | | | 25 mg tablet | mouth Daily. | tablet | | 16 | | + + + +---------+ + + | metFORMIN | Take 500 mg by mouth | | 0 | 12/18/19 | | | (GLUCOPHAGE) 500 mg | 2 times daily. | | | 12 | | | tablet | | | | | | + + + +---------+ + + | nicotine | Inhale 1 Cartridge | | 0 | | | | (NICOTROL) 10 mg | into the lungs as | | | | | | inhaler | needed for Smoking | | | | | | | cessation. | | | | | + + + +---------+ + + | oxygen | Inhale 2 L into the | | 0 | | | | | lungs continuous. | | | | | + + + +---------+ + + | roflumilast | TAKE ONE TABLET BY | 30 | 11 | 09/16/19 | | | (DALIRESP) 500 mcg | MOUTH ONCE DAILY | tablet | | 16 | | | tabletIndications: | | | | | | | Chronic obstructive | | | | | | | pulmonary disease, | | | | | | | unspecified COPD | | | | | | | type (HCC) | | | | | | + + + +---------+ + + | rOPINIrole | TAKE ONE TABLET BY | 30 | 3 | 07/26/19 | | | (REQUIP) 1 mg tablet | MOUTH ONCE DAILY AT | tablet | | 16 | | | | BEDTIME | | | | | + + + +---------+ + + | rosuvastatin | Take 20 mg by mouth | | 0 | | | | (CRESTOR) 20 mg | nightly. | | | | | | tablet | | | | | | + + + +---------+ + + | senna (SENOKOT) | Take 2 tablets by | | 0 | | | | 8.6 MG TABS | mouth Daily. | | | | | + + + +---------+ + + | sildenafil | Take 100 mg by mouth | | 0 | | | | (VIAGRA) 100 MG | as needed. | | | | | | tablet | | | | | | + + + +---------+ + + | VENTOLIN HFA 108 | Inhale 2 puffs into | | 0 | | | | (90 BASE) MCG/ACT | the lungs every 6 | | | | | | inhaler | hours as needed for | | | | | | | Wheezing. | | | | | + + + +---------+ + + documented as of this encounter [...] [place] | | | | | | [address] | | | | | | | | +--------+ + + + + documented as of this encounter Procedures + +--------+ + + + | Procedure Name | Priori | Date/Time | Associated Diagnosis | Comments | | | ty | | | | + +--------+ + + + | XR CHEST AP PORTABLE | STAT | 08/15/2019 | | Results for this | | | | 9:35 AM | | procedure are in the | | | | PDT | | results section. | + +--------+ + + + | AFB ID BY DNA PROBE | Routin | 08/15/2019 | | Results for this | | (NON ORD) | e | 8:46 AM | | procedure are in the | | | | PDT | | results section. | + +--------+ + + + | CULTURE, FUNGUS | Routin | 08/15/2019 | | Results for this | | (REFLEX RESULTS | e | 8:46 AM | | procedure are in the | | ONLY) | | PDT | | results section. | + +--------+ + + + | HC BACTERIAL CULTURE | Routin | 08/15/2019 | | Results for this | | - OTHR SOURCE | e | 8:46 AM | | procedure are in the | | | | PDT | | results section. | + +--------+ + + + | CHRISTOPHER DE JESUS SMEAR | Routin | 08/15/2019 | | Results for this | | | e | 8:46 AM | | procedure are in the | | | | PDT | | results section. | + +--------+ + + + | JESSE WHITE ONLY | Routin | 08/15/2019 | | Results for this | | | e | 8:46 AM | | procedure are in the | | | | PDT | | results section. | + +--------+ + + + | CHRISTOPHER PREP | Routin | 08/15/2019 | | Results for this | | | e | 8:46 AM | | procedure are in the | | | | PDT | | results section. | + +--------+ + + + | NEAL FUNGUS | Routin | 08/15/2019 | | Results for this | | | e | 8:46 AM | | procedure are in the | | | | PDT | | results section. | + +--------+ + + + | MEDICAL CYTOLOGY | Routin | 08/15/2019 | | Results for this | | | e | 8:46 AM | | procedure are in the | | | | PDT | | results section. | + +--------+ + + + | SURGICAL PATHOLOGY | Routin | 08/15/2019 | Personal history | Results for this | | EXAM | e | 8:16 AM | of tobacco use, | procedure are in the | | | | PDT | presenting hazards | results section. | | | | | to health | | | | | | Centrilobular | | | | | | emphysema (HCC) | | + +--------+ + + + | BRONCHOSCOPY | | 08/15/2019 | Personal history | | | ELECTROMAGNETIC | | 8:06 AM | of tobacco use, | | | NAVIGATION | | PDT | presenting hazards | | | | | | to health | | | | | | Centrilobular | | | | | | emphysema (HCC) | | + +--------+ + + + +---+--------+ | | | | | Specia | | | l | | | Needs | | | With | | | anesth | | | esia | +---+--------+ + +--------+ +---+ + | CT GUIDED | Routin | 08/15/2019 | | Results for this | | STEREOTACTIC | e | 7:11 AM | | procedure are in the | | LOCALIZATION | | PDT | | results section. | + +--------+ +---+ + | OK BRNCHSC INCL | Routin | 08/15/2019 | | Results for this | | FLUOR GDNCE DX | e | 6:55 AM | | procedure are in the | | W/CELL WASHG SPX | | PDT | | results section. | + +--------+ +---+ + | HEMOGLOBIN AND | STAT | 08/15/2019 | | Results for this | | HEMATOCRIT | | 6:39 AM | | procedure are in the | | | | PDT | | results section. | + +--------+ +---+ + | BASIC METABOLIC | STAT | 08/15/2019 | | Results for this | | PANEL | | 6:39 AM | | procedure are in the | | | | PDT | | results section. | + +--------+ +---+ + documented in this encounter Results XR Chest AP Portable (08/15/2019 9:35 AM PDT) + + | Specimen | + + | | + + + + + | Impressions | Performed At | + + + | 1. Unchanged appearance of a thick walled cavitary lesion involving | [facility] | | the right upper lobe. 2. No new airspace consolidation is present. | | | Signed by: Jam Villafana, Mundo Snow Date/Time: | | | 08/15/2019 9:52 AM | | + + + + + + | Narrative | Performed At | + + + | CHEST PORTABLE ONE VIEW CLINICAL INFORMATION: Post procedure | [facility] | | COMPARISON: CTCHEST (08/07/2019); X CHEST (06/23/2019); | | | FINDINGS: The cardiac silhouette appears normal in size. Deviation | | | of the mediastinum to the right side is noted. There is | | | demonstration of a cavitary thick-walled lesion along the right upper | | | lobe, similar to prior study. Pulmonary markings are normal in | | | caliber. Lucent appearance of the left upper lobe may be due to | | | emphysema. Additional scarring or atelectasis adjacent to the minor | | | fissure is noted. | | + + + + + | Procedure Note | + + | Blake, Rad Results In - 08/15/2019 9:55 AM PDT | | CHEST PORTABLE ONE VIEW | | | | CLINICAL INFORMATION: | | Post procedure | | | | COMPARISON: | | CTCHEST (08/07/2019); X CHEST (06/23/2019); | | | | FINDINGS: | | The cardiac silhouette appears normal in size. Deviation of the | | mediastinum to the right side is noted. There is demonstration of a | | cavitary thick-walled lesion along the right upper lobe, similar to | | prior study. Pulmonary markings are normal in caliber. Lucent | | appearance of the left upper lobe may be due to emphysema. Additional | | scarring or atelectasis adjacent to the minor fissure is noted. | | | | IMPRESSION: | | 1. Unchanged appearance of a thick walled cavitary lesion involving the | | right upper lobe. | | 2. No new airspace consolidation is present. | | | | | | | | | | Signed by: Jam Villafana Richard | | Sign Date/Time: 08/15/2019 9:52 AM | + + + +---------+ + + | Performing | Address | City/State/Zipcode | Phone Number | | Organization | | | | + +---------+ + + | [facility] | | | | + +---------+ + + AFB ID by DNA Probe (08/15/2019 8:46 AM PDT) + + + + + + | Component | Value | Ref Range | Performed | Pathologist | | | | | At | Signature | + + + + + + | M. | Negative | | [facility] | | | tuberculosi | | | LABORATORY | | | s DNA | | | | | + + + + + + | M. avium | Positive (A) | | [facility] | | | Complex, | | | LABORATORY | | | DNA Probe | | | | | + + + + + + | M. kansasii | Not Indicated | | [facility] | | | | | | LABORATORY | | + + + + + + | M. gordonae | Negative | | [facility] | | | | | | LABORATORY | | + + + + + + | Other | NAIDNComment: No | | [facility] | | | | additional | | LABORATORY | | | | identification testing | | | | | | is necessary.Testing | | | | | | performed at [facility], | | | | | | [address], [address], | | | | | | [facility] [address] | | | | + + + + + + + + | Specimen | + + | | + + + + + + + | Performing | Address | City/State/Zipcode | Phone Number | | Organization | | | | + + + + + | [facility] | [address] | [place] [address] | [phone] | + + + + + CULTURE, FUNGUS (REFLEX RESULTS ONLY) (08/15/2019 8:46 AM PDT) + + + + + + | Component | Value | Ref Range | Performed | Pathologist | | | | | At | Signature | + + + + + + | Result 1 | Michelle | | [facility] | | | | parapsilosisComment: | | LABORATORY | | | | Light growthTesting | | | | | | performed by [facility], | | | | | | [address], | | | | | | [place] [address] | | | | + + + + + + + + | Specimen | + + | | + + + + + + + | Performing | Address | City/State/Zipcode | Phone Number | | Organization | | | | + + + + + | [facility] | [address] | [place] [address] | [phone] | + + + + + Neal, CHRISTOPHER Smith (08/15/2019 8:46 AM PDT) + + + + + + | Component | Value | Ref Range | Performed | Pathologist | | | | | At | Signature | + + + + + + | SOURCE: | BRONCHIAL LAVAGEComment: | | [facility] | | | | Testing performed at | | LABORATORY | | | | [facility], [address] | | | | | | [place] | | | | | | [address] | | | | + + + + + + | AFB | Concentration | | [facility] | | | Specimen | | | LABORATORY | | | Processing | | | | | + + + + + + | AFB Smear | Negative | | [facility] | | | Result | | | LABORATORY | | + + + + + + | AFB CULTURE | Positive (A)Comment: | | [facility] | | | | Acid-fast bacilli have | | LABORATORY | | | | been detected in culture | | | | | | at 2 weeks; see | | | | | | AFBOrganism ID by DNA | | | | | | probeGave positive AFB | | | | | | results to Mary Waldron | | | | | | 08/29/19Testing | | | | | | performed at [facility], | | | | | | [address], [address], | | | | | | [facility] [address] | | | | + + + + + + + + | Specimen | + + | | + + + + + + + | Performing | Address | City/State/Zipcode | Phone Number | | Organization | | | | + + + + + | [facility] | [address] | [place] [address] | [phone] | + + + + + AFB, Smear Only (08/15/2019 8:46 AM PDT) + + + + + + | Component | Value | Ref Range | Performed | Pathologist | | | | | At | Signature | + + + + + + | RESULT | NO ACID FAST BACILLI | | [facility] | | | | SEEN | | LABORATORY | | + + + + + + | RESULT | Testing performed at | | [facility] | | | | [facility], [address] | | LABORATORY | | | | [place] | | | | | | [address]Clifttq: Testing | | | | | | performed at [facility], [address] | | | | | | [address] [place], | | | | | | [place] [address] | | | | + + + + + + + + | Specimen | + + | | + + + + + + + | Performing | Address | City/State/Zipcode | Phone Number | | Organization | | | | + + + + + | [facility] | [address] | [place] [address] | [phone] | + + + + + CHRISTOPHER Prep (08/15/2019 8:46 AM PDT) + + + + + + | Component | Value | Ref Range | Performed | Pathologist | | | | | At | Signature | + + + + + + | RESULT | NO YEAST OR FUNGAL | | [facility] | | | [facility] SEEN | | LABORATORY | | + + + + + + | RESULT | Testing performed at | | [facility] | | | | [facility], [address] | | LABORATORY | | | | [place], [place] | | | | | | [id number]: Testing | | | | | | performed at [facility], [address] | | | | | | [place], | | | | | | [place] [address] | | | | + + + + + + + + | Specimen | + + | | + + + + + + + | Performing | Address | City/State/Zipcode | Phone Number | | Organization | | | | + + + + + | [facility] | [address] | [place] [address] | [phone] | + + + + + Culture, Fungus (08/15/2019 8:46 AM PDT) + + + + + + | Component | Value | Ref Range | Performed | Pathologist | | | | | At | Signature | + + + + + + | Specimen | BRONCHIAL LAVAGEComment: | | [facility] | | | Source | RUL SPEC 2Testing | | LABORATORY | | | | performed at [facility] [place] [place];[address];[place] | | | | | | [address] | | | | + + + + + + | Fungus | Preliminary | | [facility] | | | (Mycology) | reportComment: Testing | | LABORATORY | | | Culture | performed by [facility], | | | | | | [address], | | | | | | [place] [address] | | | | + + + + + + + + | Specimen | + + | | + + + + + + + | Performing | Address | City/State/Zipcode | Phone Number | | Organization | | | | + + + + + | [facility] | [address] | [place] [address] | [phone] | + + + + + Culture, Quant (08/15/2019 8:46 AM PDT) + + + + + + | Component | Value | Ref Range | Performed | Pathologist | | | | | At | Signature | + + + + + + | Gram Stain | WBC'S SEEN | | [facility] | | | Result | | | LABORATORY | | + + + + + + | Gram Stain | NO EPITHELIAL CELLS SEEN | | [facility] | | | Result | | | LABORATORY | | + + + + + + | Gram Stain | GRAM POSITIVE COCCI | | [facility] | | | Result | | | LABORATORY | | + + + + + + | Gram Stain | STAIN PERFORMED ON | | [facility] | | | Result | CYTOSPIN | | LABORATORY | | + + + + + + | Gram Stain | Testing performed at | | [facility] | | | Result | [facility], [address] | | LABORATORY | | | | [place] | | | | | | [address] | | | | + + + + + + | RESULT | 30,000 CFULACTOBACILLUS | | [facility] | | | | SPECIESIn Vitro | | LABORATORY | | | | Susceptibility is not | | | | | | valid for this organism. | | | | | | (A) | | | | + + + + + + | RESULT | 30,000 CFUALPHA | | [facility] | | | | HEMOLYTIC STREPTOCOCCI | | LABORATORY | | | | (A) | | | | + + + + + + | RESULT | 16,000 | | [facility] | | | | CFUMIXEDSTAPHYLOCOCCUS | | LABORATORY | | | | SPECIES, COAGULASE | | | | | | NEGATIVE (A)Comment: | | | | | | Testing performed at | | | | | | [facility], [address] [facility] | | | | | | [place] | | | | | | [address] | | | | + + + + + + + + | Specimen | + + | | + + + + + + + | Performing | Address | City/State/Zipcode | Phone Number | | Organization | | | | + + + + + | [facility] | [address] | [place] [address] | [phone] | + + + + + Medical Cytology (08/15/2019 8:46 AM PDT) + + | Specimen | + + | Tissue - | | Bronchoscope, device | | (physical object) | + + + + + | Narrative | Performed At | + + + | ORDERING | [facility] | | PHYSICIAN:Alfonso Wallace MD PATIENT NAME:DAUGHERTYKEVIN RODRIGUEZ SR. | INCROSANNA | | FRANKLINGENDER: Brennan : 1950 SPECIMEN(S): A RT UPPER | | | LOBE BRUSHINGSSPECIMEN(S): B RT UPPER LOBE BALSPECIMEN(S): C RT UPPER | | | LOBE NEEDLE ASPIRATE GROSS DESCRIPTION: A) 20 ML OF CLEAR, VERY | | | LIGHT YELLOW FLUID W/ 3 SMALL BRUSHES IN CYTOLYT; B) 10 ML OF CLOUDY, | | | ORANGE FLUID IN CYTOLOGY FIXATIVE; C) 22 ML OF CLEAR, PINK FLUID IN | | | CYTOLYT CLINICAL HISTORY: NO CLINICAL DATA PROVIDED LABORATORY | | | PREPARATIONS: A) 1 MONOLAYER, 1 CELL BLOCK; B) 1 MONOLAYER, 1 CELL | | | BLOCK; C) 1 MONOLAYER, 1 CELL BLOCK CYTOLOGIC INTERPRETATION:A. | | | Right upper lobe, brush cytology:- Negative for malignant cells. | | | B. Right upper lobe BAL:- Negative for malignant cells. C. Right | | | upper lobe, needle biopsies:- Negative for malignant cells. See | | | description. AMB:emb:C2NR DESCRIPTION:A, B, C. Monolayers and cell | | | blocks from the right upper lobe brush cytology (A), right upper lobe | | | lavage sample (B) and right upper lobe needle biopsy (C) are reviewed. | | | All preparations containvarying degrees of benign ciliated epithelial | | | cells, numerous macrophages and proteinaceous mucoid debris. | | | Cytologic features of malignancy are not identified. Please correlate | | | these results with thepatient's concurrent biopsies | | | ([id number]).AMB:emb PERFORMING LABORATORY:The technical component was | | | performed by [facility], [address] [facility] | | | [place] [address] (Coach Driver: Ramses Purdy D.O.; CLIA#: | | | [id number]).Professional interpretation was performed by [facility] | | | [employer], | | | [place] [address] (Coach Driver: Yoandy Kirkland M.D.; CLIA#: | | | [id number]). Diagnostician: Yoel SLAUGHTER | | | (ASC)CytotechnologistDiagnostician: Nata Gallego | | | MDPathologistElectronically Signed 08/16/2019 | | |DESCRIPTION: | | |A, B, C. Monolayers and cell blocks from the right upper lobe brush cytology (A), right u pper lobe lavage sample (B) and right upper lobe needle biopsy (C) are reviewed. All prepara tions contain | | |varying degrees of benign ciliated epithelial cells, numerous macrophages and proteinaceous mucoid debris. Cytologic features of malignancy are not identified. Please correlate these results with the | | |patient's concurrent biopsies ([id number]). | | |AMB:emb | | | | | |PERFORMING LABORATORY: | | |The technical component was performed by [facility], [address] [facility] [place] [address] (Coach Driver: Ramses Purdy D.O.; CLIA#: [id number]). | | |Professional interpretation was performed by [facility], [address] [address] (Coach Driver: Yoandy Kirkland M.D.; CLIA#: [id number]). | | | | | |Diagnostician: Yoel SLAUGHTER (ASC) | | |Software Quality Test Engineer | | |Diagnostician: Nata Gallego MD | | |Pathologist | | |Electronically Signed 08/16/2019 | | | | | | | | + + + + +---------+ + + | Performing | Address | City/State/Zipcode | Phone Number | | Organization | | | | + +---------+ + + | [facility] | | | | | [facility] | | | | + +---------+ + + Surgical Pathology Exam (08/15/2019 8:16 AM PDT) + + | Specimen | + + | Tissue - Entire | | right upper lobe of | | lung (body | | structure) | + + + + + | Narrative | Performed At | + + + | SPECIMEN(S): A | [facility] | | LUNG, UPPER LOBE, RIGHT SPECIMEN SOURCE:A. LUNG, UPPER LOBE, RIGHT | [facility] | | CLINICAL HISTORY:[place]; Z87.891 (personal history of tobacco use, | | | presenting hazards to anaid), J43.2 (centrilobular emphysema) FINAL | | | PATHOLOGIC DIAGNOSIS:Right upper lobe lung, biopsies:- Fragments of | | | reactive, inflamed bronchial mucosa, negative for granulomas, necrosis | | | or malignancy. See Comment. COMMENT:Please correlate these results | | | with the patient's concurrent cytology ([id number]). AMB:emb:C2NR | | | MICROSCOPIC EXAMINATION:Histologic sections of all submitted blocks | | | are examined by light microscopy. These findings, together with the | | | gross examination, support the pathologic diagnosis. GROSS | | | DESCRIPTION:The specimen, labeled "Kevin Daugherty, right upper lobe | | | biopsy," is received in formalin and consists of multiple pink-red | | | soft tissue fragments that measure 0.4 cm in greatest dimension. The | | | specimenis inked with eosin and entirely submitted in cassette | | | (A1-A2).FB (under the direct supervision of a pathologist) The Gross | | | Description was prepared using a voice recognition system. The | | | report was reviewed for accuracy; however, sound-alike word errors, | | | addition and/or deletions may occur. If there is anyquestion about | | | this report, please contact Client Services. PERFORMING LABORATORY:The | | | technical component was performed by [facility], [address] [place] [address] | | | [place] [address] (Coach Driver: Nata Gallego MD; CLIA# | | | [id number]). Professional interpretation was performed by[facility] | | | [employer] | | | [place] [address] (Coach Driver: Yoandy Kirkland M.D.; CLIA#: | | | [id number]). Diagnostician: Nata Gallego | | | MDPathologistElectronically Signed 08/16/2019 | | | | | |PERFORMING LABORATORY: | | |The technical component was performed by [facility], [address] [place] [address] (Coach Driver: Nata Gallego MD; CLIA# [id number]). Professional interpretation was performed by | | |[facility], [facility], [address] [place] [address] (Coach Driver: Yoandy Kirkland M.D.; [facility]#: [id number]). | | | | | |Diagnostician: Nata Gallego MD | | |Pathologist | | |Electronically Signed 08/16/2019 | | | | | | | | + + + + +---------+ + + | Performing | Address | City/State/Zipcode | Phone Number | | Organization | | | | + +---------+ + + | [facility] | | | | | [facility] | | | | + +---------+ + + CT Guided Stereotactic Localization (08/15/2019 7:11 AM PDT) + + | Specimen | + + | | + + + + + | Impressions | Performed At | + + + | No professional dictation will be given. Signed by: Migel | [facility] | Neri Acosta M.D. Sign Date/Time: 08/15/2019 11:45 AM | | + + + + + + | Narrative | Performed At | + + + | CT GUIDED STEREOTACTIC LOCALIZATION CLINICAL INFORMATION: | [facility] | | Ana study , do not read COMPARISON: None. PROCEDURE: | | | Procedure for surgical purposes only. At least one of the | | | following CT dose optimization techniques were used: Automated | | | exposure control; Adjustment of mA and/or kV according to patient | | | size; Use of iterative reconstruction technique. FINDINGS: No | | | professional dictation will be given. | | + + + + + | Procedure Note | + + | Bebeto Lozano Results In 08/15/2019 11:49 AM PDT | | CT GUIDED STEREOTACTIC LOCALIZATION | | | | CLINICAL INFORMATION: | | Ana study , do not read | | | | COMPARISON: | | None. | | | | PROCEDURE: | | Procedure for surgical purposes only. | | | | At least one of the following CT dose optimization techniques were | | used: Automated exposure control; Adjustment of mA and/or kV according | | to patient size; Use of iterative reconstruction technique. | | | | FINDINGS: | | No professional dictation will be given. | | | | IMPRESSION: | | No professional dictation will be given. | | | | | | | | Signed by: Jam Lainez Isaac | | Sign Date/Time: 08/15/2019 11:45 AM | + + + +---------+ + + | Performing | Address | City/State/[facility] | Phone Number | | Organization | | | | + +---------+ + + | [facility] | | | | + +---------+ + + Bronchoscopy (08/15/2019 6:55 AM PDT) + + | Specimen | + + | | + + + + + | Narrative | Performed At | + + + | [facility] | [facility] | | [facility] | [facility] | | CenterPulmonology | | | Patient Name: Kevin Daugherty | | | Procedure Date: 08/15/2019 6:55 AMMRN: [id number] | | | Date of : 1950Note Status: Finalized | | | Attending MD: Alfonso Wallace , | | | | | | Procedure: BronchoscopyMedicines: | | | Monitored Anesthesia CareComplications: No | | | immediate | | | complications | | | Procedure: Pre-Anesthesia Assessment: | | | - A History and Physical has been performed. The patient's | | | medications, allergies and sensitivities have been reviewed. | | | - The risks and benefits of the procedure and the sedation options | | | and risks were discussed with the patient. All questions were | | | answered and informed consent was obtained. After I | | | obtained informed consent, the scope was passed under direct | | | vision. Throughout the procedure, the patient's blood pressure, pulse, | | | and oxygen saturations were monitored continuously. The | | | Bronchoscope was introduced through the mouth, via the | | | endotracheal tube (the patient was intubated for the procedure) | | | and advanced to the tracheobronchial tree. | | | | | | Estimated Blood Loss: Estimated blood loss: | | | Minimal. Estimated blood loss: | | | none.Findings: The endotracheal tube is in good position. The | | | visualized portion of the trachea is of normal caliber. The | | | marisol is sharp. The tracheobronchial tree was examined to at | | | least the first subsegmental level. Bronchial mucosa and | | | anatomy are normal; there are no endobronchial lesions, and no | | | secretions. The right middle lobe and superior segment of the right | | | lower lobe had some inflamatory changes. Electromagnetic | | | navigation bronchoscopy utilizing the [employer] system | | | was performed. The CT scan was used for planning purposes. A | | | virtual bronchoscopic image was generated using the planning software | | | and the marisol and left main bronchus marisol registration | | | points were marked on the virtual image. The target in the | | | apical segment of the right upper lobe was marked. A mass 5.2 | | | cm in size was found and a pathway was created. After a | | | complete airway exam, the locatable guide/extended working | | | channel was inserted and the pre-planned fiducial landmarks, | | | including marisol and left main bronchus marisol were registered. | | | The navigation phase was then begun to locate the target | | | lesion(s). The locatable guide was removed from the extended working | | | channel. Bronchoalveolar lavage was performed in the RUL | | | apical segment (B1) of the lung and sent for routine cytology, | | | aerobic culture, AFB analysis & culture and fungal analysis. 60 | | | mL of fluid were instilled. 20 mL were returned. The return | | | was blood-tinged. There were no mucoid plugs in the return | | | fluid. Transbronchial biopsies of a lesion were performed in the | | | apical segment of the right upper lobe using forceps and sent | | | for histopathology examination. The procedure was guided by | | | veran navigation. Seven biopsy passes were performed. Six | | | biopsy samples were obtained. Veran navigation guided | | | transbronchial brushings of a mass were obtained in the apical | | | segment of the right upper lobe with a triple needle brush and | | | sent for routine cytology. One sample was obtained. | | | Transbronchial needle aspirations of a mass were performed in the | | | apical segment of the right upper lobe veran 22 gauge needle | | | and sent for routine cytology. The procedure was guided by | | | veran navigation. Two samples were obtained. | | | | | | Impression: - The airway | | | examination was normal. - Electromagnetic navigation | | | bronchoscopy was performed. - Bronchoalveolar lavage was | | | performed. - Transbronchial lung biopsies were performed. | | | - Transbronchial brushings were obtained. - A transbronchial | | | needle aspiration was performed. | | | | | | Recommendation: - Await test | | | results. | | | | | | | | | Naveen Madison, 08/15/2019 8:55:40 AMThis report has been | | | signed electronically.Number of Addenda: 0 Note Initiated On: | | | 08/15/2019 6:55 AM [facility] | | | Department | | |This report has been signed electronically. | | |Number of Addenda: 0 | | | | | |Note Initiated On: 08/15/2019 6:55 AM | | | | | | [facility] Department | | + + + + +---------+ + + | Performing | Address | City/State/Zipcode | Phone Number | | Organization | | | | + +---------+ + + | [facility] | | | | + +---------+ + + Hemoglobin and Hematocrit (08/15/2019 6:39 AM PDT) + + + + + + | Component | Value | Ref Range | Performed | Pathologist | | | | | At | Signature | + + + + + + | Hemoglobin | 15.3 | 13.2 - 17.0 | [facility] | | | | | g/dL | LABORATORY | | + + + + + + | Hematocrit | 46.7Comment: Testing | 39.0 - 50.0 % | [facility] | | | | performed at [facility] [place], [place];[address] | | LABORATORY | | | | [address];[place], [place] | | | | | | [address] | | | | + + + + + + + + | Specimen | + + | Blood | + + + + + + + | Performing | Address | City/State/Zipcode | Phone Number | | Organization | | | | + + + + + | [facility] | [address] | [place] [address] | [phone] | + + + + + Basic Metabolic Panel (08/15/2019 6:39 AM PDT) + + + + + + | Component | Value | Ref Range | Performed | Pathologist | | | | | At | Signature | + + + + + + | Na | 138 | 135 - 145 | [facility] | | | | | mmol/L | LABORATORY | | + + + + + + | K | 3.7 | 3.5 - 4.9 | [facility] | | | | | mmol/L | LABORATORY | | + + + + + + | Cl | 107 | 99 - 109 mmol/L | [facility] | | | | | | LABORATORY | | + + + + + + | CO2 | 24 | 23 - 32 mmol/L | [facility] | | | | | | LABORATORY | | + + + + + + | Anion Gap | 11 | 5 - 20 mmol/L | [facility] | | | | | | LABORATORY | | + + + + + + | Glucose | 168 (H) | 65 - 99 mg/dL | [facility] | | | | | | LABORATORY | | + + + + + + | BUN | 15 | 8 - 25 mg/dL | [facility] | | | | | | LABORATORY | | + + + + + + | Creatinine | 0.97 | 0.70 - 1.30 | [facility] | | | | | mg/dL | LABORATORY | | + + + + + + | BUN/Creatin | 15 | | [facility] | | | ine Ratio | | | LABORATORY | | + + + + + + | Calcium | 9.2 | 8.5 - 10.5 | [facility] | | | | | mg/dL | LABORATORY | | + + + + + + | Estimated | >60Comment: GFR <60: | >60 | [facility] | | | GFR | CHRONIC KIDNEY DISEASE, | mL/min/1.73m2 | LABORATORY | | | | IF FOUND OVER A 3 MONTH | | | | | | PERIOD.GFR <15: KIDNEY | | | | | | FAILURE.FOR | | | | | | AMERICANS, MULTIPLY THE | | | | | | CALCULATED GFR BY | | | | | | 1.210.This eGFR is | | | | | | calculated using the | | | | | | [facility] traceable | | | | | | equation.Testing | | | | | | performed at [facility] [place] [place];[address] | | | | | | [facility];[place], [place] | | | | | | [address] | | | | + + + + + + + + | Specimen | + + | Blood | + + + + + + + | Performing | Address | City/State/Zipcode | Phone Number | | Organization | | | | + + + + + | [facility] | [address] | [place] [address] | [phone] | + + + + + documented in this encounter Visit Diagnoses + + | Diagnosis | + + | Personal history of tobacco use, presenting hazards to health | + + | Centrilobular emphysema (HCC) | + + documented in this encounter Admitting Diagnoses + + | Diagnosis | + + | Personal history of tobacco use, presenting hazards to health | + + | Centrilobular emphysema (HCC) | + + documented in this encounter Administered Medications + +--------+ +--------+------+------+ | Medication Order | MAR | Action | Dose | Rate | Site | | | Action | Date | | | | + +--------+ +--------+------+------+ | albuterol 2.5 mg/3 mL nebulizer | Given | 08/15/19 | 2.5 mg | | | | solution 2.5 mg 2.5 mg, | | 20 9:09 | | | | | Nebulization, ONCE PRN, Wheezing, | | AM PDT | | | | | Starting 08/15/19 at 0905, | | | | | | | For 1 dose, Notify anesthesia if | | | | | | | patient is wheezing and does not | | | | | | | have a history of asthma or COPD | | | | | | | or current smoking., | | | | | | | Recovery/Phase I | | | | | | + +--------+ +--------+------+------+ + +---+ | | | + +---+ | dextrose 50% injection 12.5-25 | | | g 12.5-25 g, Intravenous, EVERY | | | 15 MIN PRN, Low Blood Sugar, For | | | hypoglycemia. Give 12.5g (25ml) | | | IV if blood glucose 50-69 | | | mg/dL. Give 25g (50ml) IV if | | | blood glucose < 50, Starting Tue | | | 08/15/19 at 0905, Give over 2 min. | | | Repeat in 15 min if blood | | | glucose remains < 70 mg/dL. | | | Repeat blood glucose in 30 min | | | once blood glucose > 70., | | | Recovery/Phase I | | + +---+ | | | + +---+ | fentaNYL (PF) injection 25-50 | | | mcg 25-50 mcg, Intravenous, | | | EVERY 5 MIN PRN, Pain, Initial | | | postop medication for URGENT PAIN | | | OR ESCALATING PAIN, Starting Tue | | | 08/15/19 at 0905, For 4 doses, | | | First dose must be lowest dose. | | | Use Pasero Sedation Scale. | | | [Opioid tolerant = One week or | | | longer, qhbgoe-lbd-qmpsk use of | | | at least the following DAILY | | | dose: 60mg oral morphine, 60mg | | | oral hydrocodone, 30mg oral | | | oxycodone, 8mg oral | | | hydromorphone, fentanyl patch | | | 25mcg/hr, or equivalent dose of | | | another opioid], Recovery/Phase I | | + +---+ | | | + +---+ | insulin lispro (humaLOG) | | | injection (vial) 0-18 Units 0-18 | | | Units, Subcutaneous, 4 TIMES | | | DAILY WITH MEALS & NIGHTLY, First | | | dose on Wed08/15/19 at 1200, | | | CORRECTION SCALE: Blood Glucose | | | (BG) < 150: None | | | BG 150-200: DAY: 3 units. | | | NIGHT: 0 units BG 201-250: DAY: | | | 6 units. NIGHT: 3 units BG | | | 251-300: DAY: 9 units. NIGHT: | | | 6 units BG 301-350: DAY: 12 | | | units. NIGHT: 9 units BG | | | 351-400: DAY: 15 units. NIGHT: | | | 12 units BG > 400 : DAY: 18 | | | units. NIGHT: 15 units | | | AND CALL PROVIDER | | | Use DAY DOSE for doses | | | scheduled: AC, NPO, Daytime | | | [id number] Use NIGHT DOSE for | | | doses scheduled: HS, 3AM, | | | Nighttime [id number] If the BG is | | | not checked before the patient | | | starts eating, do not give | | | correction insulin. If HS insulin | | | given, check blood glucose at | | | 3AM. Only for use with U-100 | | | insulin syringe., Recovery/Phase | | | I | | + +---+ | | | + +---+ | ondansetron (ZOFRAN) injection | | | 4 mg 4 mg, Intravenous, EVERY 4 | | | HOURS PRN, Nausea, Vomiting, | | | Starting 08/15/19 at 0905, | | | Recovery/Phase I | | + +---+ | | | + +---+ + + + +---+---+---+ | sodium chloride 0.9% (NS) | Continue | 08/15/19 | | | | | infusion at 50 mL/hr, | d by | 20 8:05 | | | | | Intravenous, CONTINUOUS, Starting | Anesthes | AM PDT | | | | | 08/15/19 at 0645, Pre-op | ia | | | | | + + + +---+---+---+ +---------+ +---+ +---+ | New Bag | 08/15/19 | | 50 mL/hr | | | | 20 6:49 | | | | | | AM PDT | | | | +---------+ +---+ +---+ +---+---+ | | | +---+---+ documented in this encounter
--- OUTSIDE RECORDS SUMMARY | ~2019-08-31 | XMS | Encounter Summary ---
Demographics + + + | Address | [address] | | | [place] [address] | + + + | Home Phone | | + + + | Preferred Language | Unknown | + + + | Marital Status | | + + + | Cheondoism Affiliation | [id number] | + + + | Race | Unknown | + + + | Ethnic Group | Unknown | + + + Author + + + | Author | [facility] | | | and [place] | + + + | Organization | [facility] | | | and [place] | + + + | Address | Unknown | + + + | Phone | Unavailable | + + + Support + + + + + | Name | Relationship | Address | Phone | + + + + + | Palak Gipsonock | ECON | [id number] [place] | | | | | [address] | | + + + + + | Tanika Jean | ECON | Unknown | | + + + + + Care Team Providers + +------+ + | Care Cover Mat Machine 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
--- OUTSIDE RECORDS SUMMARY | ~2019-08-31 | XMS | Encounter Summary ---
Demographics + + + | Address | [address] | | | [place] [address] | + + + | Home Phone | | + + + | Preferred Language | Unknown | + + + | Marital Status | | + + + | Adventism Affiliation | 1061 | + + + | Race | Unknown | + + + | Ethnic Group | Unknown | + + + Author + + + | Author | [facility] | | | and [place] | + + + | Organization | [facility] | | | and [place] | + + + | Address | Unknown | + + + | Phone | Unavailable | + + + Support + + + + + | Name | Relationship | Address | Phone | + + + + + | Palak Aguilar | ECON | [address] | | | | | [address] | | + + + + + | Tanika Jean | ECON | Unknown | | + + + + + Care Team Providers + +------+ + | Care Farrowing Manager Name | Role | Phone | + +------+ + | Jose Angel Reina MD | PCP | | + +------+ + Reason for Visit + + + | Reason | Comments | + + + | Gait Problem | Pt states that sometimes he walks like he's drunk. Pt states it | | | seems like it's all the time. | + + + | Tremors | Pt states that he has trouble writing. Pt states that both hands | | | tremor the same. States with the shaking it's hard to hold a | | | cup of coffee. | + + + | Numbness | Pt states that sometimes his bilateral hands have numbness and | | | tingling. | + + + | Seizures | Pt states that he has had seizures for about 15 years. Pt takes | | | epitol prescribed by Dr. Reina. Pt states it's been probably | | | about a year since his last seizure. He does not remember | | | seeing a neurologist | + + + Evaluate & Treat (Routine) +--------+ + + + + + | Status | Reason | Specialty | Diagnoses / | Referred By | Referred To | | | | | Procedures | Contact | Contact | +--------+ + + + + + | Closed | Specialty | Neurology | Diagnoses | Rafa, | Roderick Williamson, | | | Services | | Unsteady | Karlos Gatica MD | [address] | | | Required | | gait Tremor | [address] | | | | | History of | [address] | [address] | | | | | seizures | [place], | [place], | | | | | | [place] [address] | [place] [address] | | | | | | Phone: | Phone: | | | | | | [phone] | [phone] | | | | | | Fax: | Fax: | | | | | | [phone] | [phone] | +--------+ + + + + + Encounter Details +--------+---------+ + + + | Date | Type | Department | Care Team | Description | +--------+---------+ + + + | 12/19/ | Office | [facility] | Roderick Williamson MD [address] | Ataxia (Primary Dx); | | 2012 | Visit | [address] | [address] | Claustrophobia; | | | | [facility], | [address], | Tremor; Seizure | | | | [address] [facility] [address] | disorder (HCC) | | | | [place] [address] | [phone] | | | | | [phone] | | | +--------+---------+ + + + [...] + + + | Blood Pressure | 112/68 | 12/19/2012 3:23 PM | | | | | PDT | | + + + + + | Pulse | 76 | 12/19/2012 3:23 PM | | | | | PDT | | + + + + + | Temperature | - | - | | + + + + + | Respiratory Rate | 22 | 12/19/2012 3:23 PM | | | | | PDT | | + + + + + | Oxygen Saturation | 96% | 12/19/2012 3:23 PM | | | | | PDT | | + + + + + | Inhaled Oxygen | - | - | | | Concentration | | | | + + + + + | Weight | 103 kg (227 lb) | 12/19/2012 3:23 PM | | | | | PDT | | + + + + + | Height | 175.3 cm (5' 9") | 12/19/2012 3:23 PM | | | | | PDT | | + + + + + | Body Mass Index | 33.52 | 12/19/2012 3:23 PM | | | | | PDT | | + + + + + documented in this encounter Patient Instructions Patient Instructions Roderick Williamson MD - 12/19/2012 4:29 PM PDTPlan for MRI of brain Take valium for the claustrophobia, take 1 tab half an hour before MRI, if you still have s ignificant anxiety, you can take the second one. Please have someone to drive you home. Follow up after the MRI. documented in this encounter Progress Notes Roderick Williamson MD - 12/19/2012 4:00 PM PDTFormatting of this note might be different from the o riginal. Neurology New Patient Evaluation Referring Physician: Karlos Craig MD PCP: Jose Angel Reina MD Date of Encounter: 12/19/2012 CC: Tremors, gait abnormality HPI: Nazario Aguilar is a pleasant 62 y.o. male who presents to the clinic today for ev aluation of tremors and gait abnormality. He is accompanied by his . Neither is good his aubrey. His symptoms appears to have been present for at least 10 years. Patient reports tremors i n hands, right worse than the left, that mostly occur during action. The patient reports di fficulty holding a cup of coffee, writing, or using eating utensils. He has spilled coffee and pop. He denies tremors at rest. Patient has history of restless leg syndrome for which he takes Requip. He denies beneficial effect of the Requip on his tremors. Patient also has increasing difficulty walking. He reports taking baby steps and walks lik e a drunk. He denies weakness in the legs. He denies falls. Patient also has a history of seizure disorder for a few years. The seizure was described to start with intense cough that lasts for a few minutes, followed by blank staring and unre sponsiveness lasting for another 5 minutes. Patient reports history of EEG at [facility] that was reported to be normal. He denies ever had CT or MRI of the brain. He is currently maintained well on carbamazepine 200 mg twice a day. His last seizure was at leas t 6 months ago. Patient also reports frontal headache off and on and some blurry vision but denies double v ision. Patient also reports some difficulty swallowing. He has difficulty with both fluid a nd solid food. Patient was noted by me to have slurring of speech. When questioned, he rep orts that he has the same kind of speech that has not changed for over 30 years. He denies significant numbness except occasional tingling in the feet. He denies urinary incontinence . He denies history of heavy alcohol use. As a child, he attended special education progr am. He reports one brother with difficulty walking and writing starting at age 60s. His fa ther also was not able to walk and was wheelchair-bound for 25 years- that was thought to be related to an injury at work. Allergies Allergies Allergen Reactions Levaquin Varenicline Tartrate Chantix Medications Current Outpatient Prescriptions on File Prior to Visit Medication Status Sig Dispense Refill Acetaminophen (TYLENOL EXTRA STRENGTH PO) Active TABS. As needed albuterol (VENTOLIN HFA) 90 mcg/puff inhaler Active Inhale 2 puffs into the lungs every 6 hours as needed. albuterol-ipratropium (DUONEB) 2.5-0.5 mg/3 mL SOLN Active Use in nebulizer every 4 ron rs as needed for shortness of breath aspirin 325 mg tablet Active Take 325 mg by mouth Daily. atorvaSTATin (LIPITOR) 40 mg tablet Active Take 80 mg by mouth nightly. carBAMazepine (EPITOL) 200 mg tablet Active Take 200 mg by mouth 4 times daily. Cyanocobalamin (B-12) 1000 MCG CAPS Active Take 1,000 mg by mouth Daily. DALIRESP 500 MCG tablet Active TAKE ONE TABLET BY MOUTH EVERY DAY 30 tablet 5 fluticasone (FLONASE) 50 mcg/nasal spray Active 2 sprays in each nostril daily fluticasone-salmeterol (ADVAIR DISKUS) 500-50 mcg/puff diskus inhaler Active 1 puff inh aled twice daily lisinopril (PRINIVIL, ZESTRIL) 10 mg tablet Active Take 10 mg by mouth Daily. metFORMIN (GLUCOPHAGE) 500 mg tablet Active Take 500 mg by mouth 2 times daily. oxygen Active Inhale 3 L into the lungs nightly. rOPINIRole (REQUIP) 1 mg tablet Active Take 1 tablet by mouth nightly. 30 tablet 11 tiotropium (SPIRIVA) 18 mcg inhalation capsule Active Inhale 18 mcg into the lungs Zhen y. Past Medical History Past Medical History Diagnosis Date COPD (chronic obstructive pulmonary disease) Diabetes mellitus HTN (hypertension) Seizure disorder Restless legs syndrome Seasonal allergies Dyslipidemia PLMD (periodic limb movement disorder) Asthma Hyperlipidemia Emphysema of lung Hernia, hiatal Kidney stone Seizures Family History Family History Problem Relation Age of Onset Breast cancer Mother Heart disease Mother Arthritis Mother Stroke Father Cancer Brother Social History History Social History Marital Status: Spouse Name: N/A Number of Children: N/A Years of Education: N/A Occupational History Not on file. Social History Main Topics Smoking status: Current Everyday Smoker -- 0.5 packs/day for 46 years Types: Cigarettes Smokeless tobacco: Never Used Comment: currently smoking up to 1/2 ppd Alcohol Use: No Drug Use: No Sexually Active: Not on file Other Topics Concern Not on file Social History Narrative No known toxic chemical exposures. No known asbestos exposure. No known TB exposure. Has d ogs and cat in home. Review of Systems In addition to HPI, a comprehensive ROS also revealed (See scanned intake form): General: Night sweats Allergy: Seasonal allergies Respiratory: Cough, shortness, wheezing Gastrointestinal: Gas bloating, swallowing difficulty Musculoskeletal: Muscle pain Physical Exam: BP 112/68 | Pulse 76 | Resp 22 | Ht 1.753 m (5' 9") | Wt 102.967 kg (227 lb) | BMI 33.52 kg /m2 | SpO2 96% General: WDWN, NAD. Head is ataumatic, normocephalic. Conjunctiva without injection. Neck is supple. Lungs breathing sounds are distal. Heart is regular. MS: Awake, alert, oriented x3. Cooperative and appropirate during the encounter. Speech is dysa rthric, scanning, slow and coherent. CN: Fundus showed optic disc with sharp border. VFF to confrontation. EOMI. End gaze nystagmus. PERRLA. Facial sensation is intact. Face is symmtric. Palate elevation is symmetric. Should er shrug 5/5. Tongue protrusion is midline. Motor: Bulk: normal Tone: normal Muscle strength: full in all extremities DTR 2+ and symmetrical in the upper, 3+ bilateral patella and 1+ bilateral Achilles reflexe s Plantar reflexes: Flexor Abnormal movement: Action tremor in both hands. Achimedes spiral drawing showed action tiffany mor more on the right side. Sensory: Intact to light touch, temperature, and vibration Coordination: FNF/HKS dysmetria and intentional tremor with the finger-nose testing Gait: Wide-based, cautious and small steps, able to do heel toe, ataxic on tandem gait. Mild en b loc turns. Romberg sign is present. 3 steps back for pull test. Assessment: 1. Ataxia 2. Tremors 3. Seizure disorder Plan: - Physical exam suggests cerebellar abnormalities. The tremors also appears to be cerebella r tremors. He also has a seizure disorder and mild signs of parkinsonism in the legs. 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 Will start with a brain MRI. We will follow the patient after the MRI is done and additional wor k up may follow. Thank you for allowing me to take care of this patient. Please do not hesitate to contact salomon romero if you have any questions. Cc: MD Jose Angel Boswell MD documented in this encounter Plan of Treatment +--------+ + + + + | Date | Type | Specialty | Care Team | Description | +--------+ + + + + | 11/16/ | Appointment | Radiology | Alfonso Wallace MD | | | 2019 | | | [address] | | | | | | [place] | | | | | | [address] | | | | | | | | +--------+ + + + + documented as of this encounter Visit Diagnoses + + | Diagnosis | + + | Ataxia - Primary Lack of coordination | + + | Claustrophobia Other isolated or specific phobias | + + | Tremor Abnormal involuntary movements | + + | Seizure disorder (HCC) Unspecified epilepsy without mention of intractable epilepsy | + + documented in this encounter
--- OUTSIDE RECORDS SUMMARY | ~2019-08-31 | XMS | Encounter Summary ---
Demographics + + + | Address | [address] | | | [place] [address] | + + + | Home Phone | | + + + | Preferred Language | Unknown | + + + | Marital Status | | + + + | Sabianism Affiliation | 1061 | + + + | Race | Unknown | + + + | Ethnic Group | Unknown | + + + Author + + + | Author | [facility] | | | and [place] | + + + | Organization | [facility] | | | and [place] | + + + | Address | Unknown | + + + | Phone | Unavailable | + + + Support + + + + + | Name | Relationship | Address | Phone | + + + + + | Palak Aguilar | ECON | [address] | | | | | [address] | | + + + + + | Tanika Jean | ECON | Unknown | | + + + + + Care Team Providers + +------+ + | Care Lead Security Officer Name | Role | Phone | + +------+ + | Jose Angel Reina MD | PCP | | + +------+ + Reason for Visit +--------+ + | Reason | Comments | +--------+ + | Other | Nebulized Solution | +--------+ + Encounter Details +--------+ + + + + | Date | Type | Department | Care Team | Description | +--------+ + + + + | 06/21/ | Telephone | [facility] [place] | [place], | Other (Nebulized | | 2013 | | PULMONARY [address] | Ling Farzier MD | Solution ) | | | | [place], | | | | | | [place] [address] | | | | | | [phone] | | | +--------+ + + + [...] [address] | | | | | | [place] | | | | | | [address] | | | | | | | | +--------+ + + + + documented as of this encounter Visit Diagnoses + + | Diagnosis | + + | COPD (chronic obstructive pulmonary disease) (HCC) - Primary Chronic airway | | obstruction, not elsewhere classified | + + documented in this encounter"
--- OUTSIDE RECORDS SUMMARY | ~2019-08-31 | XMS | Encounter Summary ---
Demographics + + + | Address | [address] | | | [place] [address] | + + + | Home Phone | | + + + | Preferred Language | Unknown | + + + | Marital Status | | + + + | Mormon Affiliation | 1061 | + + + | Race | Unknown | + + + | Ethnic Group | Unknown | + + + Author + + + | Author | [facility] | | | and [place] | + + + | Organization | [facility] | | | and [place] | + + + | Address | Unknown | + + + | Phone | Unavailable | + + + Support + + + + + | Name | Relationship | Address | Phone | + + + + + | Palak Trejo Jeff | ECON | [address] | | | | | [address] | | + + + + + | Tanika Jean | ECON | Unknown | | + + + + + Care Team Providers + +------+ + | Care Dress Designer Name | Role | Phone | + +------+ + PCP | Unavailable | + +------+ + Encounter Details +--------+ + + + + | Date | Type | Department | Care Team | Description | +--------+ + + + + | / | Hospital | [facility] | Zoran Espinoza, | Vitreous membranes | | 1999 | Encounter | [facility] | [address] | | | | | OUTPATIENT | [place], [place] | | | | | PROCEDURES [address] | [address] | | | | | [address] | | | | | | [place], [place] | | | | | | [address] | | | | | | [phone] | | | +--------+ + + + [...] | | | 2019 | | | [address] | | | | | | [place] | | | | | | [address] | | | | | | | | +--------+ + + + + documented as of this encounter Visit Diagnoses + + | Diagnosis | + + | Vitreous membranes Vitreous membranes and strands | + + documented in this encounter"
--- OUTSIDE RECORDS SUMMARY | ~2019-08-31 | XMS | Encounter Summary ---
Demographics + + + | Address | [address] | | | [place] [address] | + + + | Home Phone | | + + + | Preferred Language | Unknown | + + + | Marital Status | | + + + | Mu-Ism Affiliation | 1061 | + + + | Race | Unknown | + + + | Ethnic Group | Unknown | + + + Author + + + | Author | [facility] | | | and [place] | + + + | Organization | [facility] | | | and [place] | + + + | Address | Unknown | + + + | Phone | Unavailable | + + + Support + + + + + | Name | Relationship | Address | Phone | + + + + + | Palak Aguilar | ECON | [address] | | | | | [address] | | + + + + + | Tanika Jean | ECON | Unknown | | + + + + + Care Team Providers + +------+ + | Care Mobile Ui Developer Name | Role | Phone | + [...] | | | | | [address] [facility] | [place] [address] | | | | | [place] [address] | | | | | | [phone] | | | +--------+ + + + [...] Wallace MD | | | 2020 | | | [address] | | | | | | [place] [facility] | | | | | | [address] | | | | | | | | +--------+ + + + + documented as of this encounter Procedures + +--------+ + + + | Procedure Name | Priori | Date/Time | Associated Diagnosis | Comments | | | ty | | | | + +--------+ + + + | XR CHEST 2 VIEWS | Routin | 07/15/2016 | | Results for this | | | e | 11:15 PM | | procedure are in the | | | | PDT | | results section. | + +--------+ + + + documented in this encounter Results XR Chest 2 VW (07/15/2016 11:15 PM PDT) + + | Specimen | + + | | + + + + + | Narrative | Performed At | + + + | External films for comparison only - no result from [place]. | [facility] | + + + + +---------+ + + | Performing | Address | City/State/Zipcode | Phone Number | | Organization | | | | + +---------+ + + | [facility] | | | | + +---------+ + + documented in this encounter Visit Diagnoses Not on filedocumented in this encounter"
--- OUTSIDE RECORDS SUMMARY | ~2019-08-31 | XMS | Encounter Summary ---
Demographics + + + | Address | [address] | | | [place] [address] | + + + | Home Phone | | + + + | Preferred Language | Unknown | + + + | Marital Status | | + + + | Latter-Day Affiliation | 1061 | + + + | Race | Unknown | + + + | Ethnic Group | Unknown | + + + Author + + + | Author | [facility] | | | and [place] | + + + | Organization | [facility] | | | and [place] | + + + | Address | Unknown | + + + | Phone | Unavailable | + + + Support + + + + + | Name | Relationship | Address | Phone | + + + + + | Palak Gipsonock | ECON | [address] | | | | | [address] | | + + + + + | Tanika Jean | ECON | Unknown | | + + + + + Care Team Providers + +------+ + | Care Geographic Information Systems Director Name | Role | Phone | + [...] Description | +--------+--------+ + + + | 08/15/ | Refill | [facility] [place] | [place], | Medication Refill | | 2012 | | PULMONARY [address] | Ling Frazier MD | | | | | [place], | | | | | | [place] [address] | | | | | | [phone] | | | +--------+--------+ + + + [...] [place] | | | | | | [address] | | | | | | | [...]
--- OUTSIDE RECORDS SUMMARY | ~2019-08-31 | XMS | Encounter Summary ---
Demographics + + + | Address | [address] | | | [place] [address] | + + + | Home Phone | | + + + | Preferred Language | Unknown | + + + | Marital Status | | + + + | Judaism Affiliation | 1061 | + + + | Race | Unknown | + + + | Ethnic Group | Unknown | + + + Author + + + | Author | [facility] | | | and [place] | + + + | Organization | [facility] | | | and [place] | + + + | Address | Unknown | + + + | Phone | Unavailable | + + + Support + + + + + | Name | Relationship | Address | Phone | + + + + + | Palak Gipsonock | ECON | [address] | | | | | [address] | | + + + + + | Tanika Jean | ECON | Unknown | | + + + + + Care Team Providers + +------+ + | Care News Analyst Name | Role | Phone | + [...] Description | +--------+--------+ + + + | 07/06/ | Refill | [facility] [place] | [place], | Medication Refill | | 2014 | | PULMONARY [address] | Ling Frazier MD | | | | | [place], | | | | | | [place] [address] | | | | | | [phone] | | | +--------+--------+ + + + [...] | | | | | [place] | | | | | | [address] | | | | | | | [...]
--- OUTSIDE RECORDS SUMMARY | ~2019-08-31 | XMS | Encounter Summary ---
Demographics + + + | Address | [address] | | | [place] [address] | + + + | Home Phone | | + + + | Preferred Language | Unknown | + + + | Marital Status | | + + + | Voodoo Affiliation | 1061 | + + + | Race | Unknown | + + + | Ethnic Group | Unknown | + + + Author + + + | Author | [facility] | | | and [place] | + + + | Organization | [facility] | | | and [place] | + + + | Address | Unknown | + + + | Phone | Unavailable | + + + Support + + + + + | Name | Relationship | Address | Phone | + + + + + | Palak Aguilar | ECON | [address] | | | | | [address] | | + + + + + | Tanika Jean | ECON | Unknown | | + + + + + Care Team Providers + +------+ + | Care Public Welfare Director Name | Role | Phone | + +------+ + | Jose Angel Reina MD | PCP | | + +------+ + Reason for Visit +--------+ + | Reason | Comments | +--------+ + | COPD | 1 mo follow up | +--------+ + Encounter Details +--------+---------+ + + + | Date | Type | Department | Care Team | Description | +--------+---------+ + + + | 07/14/ | Office | [facility] | [place], | Chronic obstructive | | 2016 | Visit | PULMONARY [address] | Ling Frazier MD | pulmonary disease, | | | | [place], | | unspecified COPD | | | | [place] [address] | | type ([facility]); | | | | [phone] | | Nocturnal hypoxemia | | | | | | due to emphysema | | | | | | (HCC); Tobacco | | | | | | abuse; Essential | | | | | | hypertension with | | | | | | goal blood pressure | | | | | | less than 130/85 | +--------+---------+ + + + Social History [...] | | + +---+---+---+ + + | Tobacco Cessation: Ready to Quit: No; Counseling Given: No | + + + + +---------+ + [...] + + + | Blood Pressure | 126/64 | 07/15/2015 1:20 PM | | | | | PDT | | + + + + + | Pulse | 84 | 07/15/2015 1:20 PM | | | | | PDT | | + + + + + | Temperature | - | - | | + + + + + | Respiratory Rate | - | - | | + + + + + | Oxygen Saturation | 95% | 07/15/2015 1:20 PM | | | | | PDT | | + + + + + | Inhaled Oxygen | - | - | | | Concentration | | | | + + + + + | Weight | 97.3 kg (214 lb 8 | 07/15/2015 1:20 PM | | | | oz) | PDT | | + + + + + | Height | 175.3 cm (5' 9") | 07/15/2015 1:20 PM | | | | | PDT | | + + + + + | Body Mass Index | 31.68 | 07/15/2015 1:20 PM | | | | | PDT | | + + + + + documented in this encounter Patient Instructions Patient Instructions Ling Lowe MD - 07/15/2015 2:15 PM PDTI changed the ProAi r prescription so you can get Ventolin instead. Stop the lisinopril and start on losartan 25mg daily instead. Have Dr. Reina follow up on this and refill it. I would start taking the money from your cigarettes and put it in a jar and saving it for t hings you want and need, as motivation for quitting and staying off cigarettes. Save for a n ew stove first. documented in this encounter Progress Notes Ling Lowe MD - 07/15/2015 1:25 PM PDTFormatting of this note might be differe nt from the original. Pulmonary Follow Up HPI Nazario Aguilar . is a 64 y.o. male [facility]. At their last visit, we had resumed the Advair. I got his hospital records, which did not c larify why the Advair was stopped. He is currently on a regimen of Incruse Ellipta once daily, and Advair 500 mcg 1 inhalation twice daily. He uses his albuterol nebulizer 3 times a day and the rescue inhaler about onc e a day. He returns today for routine follow up. Currently he is able to walk 1 block at his own pace on level ground . He is not exercising regularly. He has been coughing quite a bit still recently. He notes he coughs more often at night. He feels the cough in the throat mainly. His cough is generally not productive of mucous. He has been evaluated for nocturnal oxygen and does use it. He is currently on 3 LPM at [facility]. He reports good compliance. He did his walking test at his last visit, and we discontin ued the portable oxygen. He does not have symptoms of heartburn or reflux. He has not had symptoms of nasal congesti on, runny nose or post nasal drip. Past Medical History Past Medical History Diagnosis Date COPD (chronic obstructive pulmonary disease) (HCC) Diabetes mellitus (HCC) HTN (hypertension) Seizure disorder (HCC) Restless legs syndrome Seasonal allergies PLMD (periodic limb movement disorder) Asthma Hyperlipidemia Hernia, hiatal Kidney stone Facet arthritis of lumbar region Ataxia Rotator cuff arthropathy Colon polyps 2014 due for repeat early 2017 Erectile dysfunction Past Surgical History Past Surgical History Procedure Laterality Date Cholecystectomy Hernia repair Tonsillectomy Eye surgery Colonoscopy 2015 dysplastic polyps, Dr. Che Social History: History Social History Marital Status: Spouse Name: N/A Number of Children: N/A Years of Education: N/A Social History Main Topics Smoking status: Current Every Day Smoker -- 0.50 packs/day for 46 years Types: Cigarettes Smokeless tobacco: Never Used Alcohol Use: No Drug Use: No Sexual Activity: Not on file Other Topics Concern None Social History Narrative No known toxic chemical exposures. No known asbestos exposure. No known TB exposure. Has d ogs and cat in home. Allergies: Allergies Allergen Reactions Levofloxacin Varenicline Tartrate Chantix Medications: Outpatient Encounter Prescriptions as of 07/15/2015 Medication Sig Dispense Refill acetaminophen (TYLENOL) 650 MG CR tablet Take 650 mg by mouth every 8 hours as needed f or Pain. ADVAIR DISKUS 500-50 MCG/DOSE diskus inhaler INHALE ONE DOSE BY MOUTH TWICE DAILY. RINS E MOUTH AFTER USE. 60 each 5 albuterol (PROAIR HFA) 90 mcg/puff inhaler Inhale 2 puffs into the lungs every 6 hours as needed. 1 Inhaler 5 albuterol 2.5 mg/3 mL nebulizer solution Take 3 mLs by nebulization every 6 hours as ne eded for Wheezing or Shortness of Breath. Dx: J44.9 RINA: 99 months 360 vial 11 aspirin 325 mg tablet Take 325 mg by mouth Daily. atorvaSTATin (LIPITOR) 80 MG tablet Take 80 mg by mouth nightly. carBAMazepine (EPITOL) 200 mg tablet Take 200 mg by mouth 4 times daily. Cyanocobalamin (B-12) 1000 MCG CAPS Take 1,000 mg by mouth Daily. fluticasone (FLONASE) 50 mcg/nasal spray 1 spray by Nasal route Daily. 16 g 11 guaiFENesin (MUCINEX) 600 mg 12 hr tablet Take 1,200 mg by mouth 2 times daily. lisinopril (PRINIVIL,ZESTRIL) 2.5 MG tablet Take 2.5 mg by mouth Daily. metFORMIN (GLUCOPHAGE) 500 mg tablet Take 500 mg by mouth 2 times daily. nicotine (NICOTROL) 10 mg inhaler Inhale 1 cartridge into the lungs as needed for Smoki ng cessation for up to 30 days. 168 each 11 oxygen Inhale 3 L into the lungs nightly. [DISCONTINUED] predniSONE (DELTASONE) 10 mg tablet 4 tabs orally daily for 3 days then decrease by 1 tab every 3 days. 30 tablet 0 roflumilast (DALIRESP) 500 mcg tablet TAKE ONE TABLET BY MOUTH ONCE DAILY 30 tablet 11 rOPINIrole (REQUIP) 1 mg tablet TAKE ONE TABLET BY MOUTH ONCE DAILY AT BEDTIME 30 table t 0 Sennosides-Docusate Sodium (SENNA S PO) Take 2 tablets by mouth Daily. umeclidinium (INCRUSE ELLIPTA) 62.5 mcg/puff inhaler Inhale 1 puff into the lungs Daily . 1 Inhaler 11 No facility-administered encounter medications on file as of 07/15/2015. Review of Systems: General: []Weight loss/gain (over 10 lbs) []Fever/chills/sweats []Night sweats EENT: []Hearing loss []Vision loss/change []Sinus congestion/nasal drainage []Nosebleeds [ ]Hoarseness Cardiac: [x]Chest pain []Palpitations/heart racing []Swelling of legs/ankles []Waking up at night short of breath []Difficulty sleeping flat Gastrointestinal: []Nausea/vomiting []Difficulty swallowing []Heartburn/acid reflux []Loss of appetite []Ab dominal pain Urologic: []Blood in urine []Frequent urination at night []Burning/painful urination []Difficulty wit h urination Objective BP 126/64 mmHg | Pulse 84 | Ht 1.753 m (5' 9") | Wt 97.297 kg (214 lb 8 oz) | BMI 31.66 kg/ m2 | SpO2 95% General Appearance: Alert, cooperative, no distress, appears stated age Head: Normocephalic, without obvious abnormality, atraumatic Eyes: PERRL, conjunctiva clear, no scleral icterus, EOM's intact Ears: Normal TM's, external auditory canals, normal acuity Nose: Nares normal, septum midline, mucosa edematous Mouth: No oral lesions or exudate Neck: Supple, symmetrical, no adenopathy Lungs: No accessory muscle use, breath sounds are diminished bilaterally with prolongatio n of the expiratory phase, no wheezes, crackles or rhonchi Chest Wall: No deformity Heart: Regular rate and rhythm, no murmur, rub or gallop Abdomen: Soft, non-tender, non-distended Extremities: No cyanosis, clubbing, or edema Pulses: Radial pulses 2+ and symmetric Skin: Warm and dry Lymph nodes: Cervical and supraclavicular nodes normal Data: Hospital notes were reviewed in clinic today. Immunization History Administered Date(s) Administered INFLUENZA, >= 4YO W/PRESERVATIVE IM 01/18/2011 INFLUENZA, QUADRIVALENT PRESERVATIVE FREE (PED/ADOL/ADULT) 12/28/2013, 01/21/2015 INFLUENZA, TRIVALENT PRESERVATIVE FREE (PED/ADOL/ADULT) 01/19/2012, 03/16/2013 PNEUMOCOCCAL CONJUGATE 13-VALENT (PCV13) 06/14/2014 PNEUMOCOCCAL POLYSACCHARIDE 23-VALENT (PPSV23) 01/18/2010 TDAP, (ADOL/ADULT) 01/19/2012 Assessment ICD-10-CM ICD-9-CM 1. Chronic obstructive pulmonary disease, unspecified COPD type (HCC) J44.9 496 Overall imp roved back on Advair. We will continue this and Incruse. Unclear why this was stopped during his hospital stay. I think some of his cough is from his lisinopril, so I am going to try changing to losartan . Smoking is also a factor. 2. 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 I discontinued t he portable oxygen as he no longer met criteria for this. G47.36 327.26 3. Tobacco abuse Z72.0 305.1 Ongoing. We discussed again quitting. He is using the Nicotrol inhaler. He is concerned today about erectile dysfunction, and we discussed the impact of s moking on this. 4. Essential hypertension with goal blood pressure less than 130/85 I10 401.9 On lisinopril . I substituted losartan. Plan 1.Change lisinopril to losartan 25mg daily. 2.Continue Advair 500 mcg 1 inhalation twice daily. 3.Continue Incruse 1 inhalation daily. 4. Continue oxygen at night at 3L. 5. Continue Nicotrol inhaler. I suggested they save the money from cutting back and quittin g smoking for some things they need and want, like a new stove. He was advised to call if new pulmonary symptoms were to develop. Return to clinic in 2 months, or sooner with concerns. CC: Jose Angel Reina MD Portions of this report were transcribed using voice recognition software. Every effort wa s made to ensure accuracy; however, inadvertent computerized acid maker errors may be pre sent. 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
--- OUTSIDE RECORDS SUMMARY | ~2019-08-31 | XMS | Encounter Summary ---
Demographics + + + | Address | [address] | | | [place] [address] | + + + | Home Phone | | + + + | Preferred Language | Unknown | + + + | Marital Status | | + + + | Episcopalian Affiliation | 1061 | + + + | Race | Unknown | + + + | Ethnic Group | Unknown | + + + Author + + + | Author | [facility] | | | and [place] | + + + | Organization | [facility] | | | and [place] | + + + | Address | Unknown | + + + | Phone | Unavailable | + + + Support + + + + + | Name | Relationship | Address | Phone | + + + + + | Palak Aguilar | ECON | [address] | | | | | [address] | | + + + + + | Tanika Jean | ECON | Unknown | | + + + + + Care Team Providers + +------+ + | Care Edge Polisher Name | Role | Phone | + [...] | | | | | [facility] | [place] [address] | | | | | [place] [address] | | | | | | [phone] | | | +--------+ + + + [...] | | | | [place] [facility] | | | | | | [address] | | | | | | | | +--------+ + + + + documented as of this encounter Procedures + +--------+ + + + | Procedure Name | Priori | Date/Time | Associated Diagnosis | Comments | | | ty | | | | + +--------+ + + + | XR CHEST 2 VIEWS | Routin | 10/09/2016 | | Results for this | | | e | 10:45 PM | | procedure are in the | | | | PDT | | results section. | + +--------+ + + + documented in this encounter Results XR Chest 2 VW (10/09/2016 10:45 PM PDT) + + | Specimen | + + | | + + + + + | Narrative | Performed At | + + + | External films for comparison only - no result from [place]. | [facility] | + + + + +---------+ + + | Performing | Address | City/State/Zipcode | Phone Number | | Organization | | | | + +---------+ + + | [facility] | | | | + +---------+ + + documented in this encounter Visit Diagnoses Not on filedocumented in this encounter"
--- OUTSIDE RECORDS SUMMARY | ~2019-08-31 | XMS | Encounter Summary ---
Demographics + + + | Address | [address] | | | [place] [address] | + + + | Home Phone | | + + + | Preferred Language | Unknown | + + + | Marital Status | | + + + | Mormon Affiliation | 1061 | + + + | Race | Unknown | + + + | Ethnic Group | Unknown | + + + Author + + + | Author | [facility] | | | and [place] | + + + | Organization | [facility] | | | and [place] | + + + | Address | Unknown | + + + | Phone | Unavailable | + + + Support + + + + + | Name | Relationship | Address | Phone | + + + + + | Palak Trejo Jeff | ECON | [address] | | | | | [address] | | + + + + + | Tanika Jean | ECON | Unknown | | + + + + + Care Team Providers + +------+ + | Care Director Airport Operations Name | Role | Phone | + +------+ + PCP | Unavailable | + +------+ + Encounter Details +--------+ + + + + | Date | Type | Department | Care Team | Description | +--------+ + + + + | 04/20/ | Hospital | [facility] | [place], | | | 2011 | Encounter | MED CTR GENERIC OP | Ling Frazier MD | | | | | CONV DEPT [address] | | | | | | [place], | | | | | | [place] [address] | | | | | | [phone] | | | +--------+ + + + [...] + + + +---------+ + + | tiotropium | Inhale 18 mcg into | | 0 | 02/25/20 | | | (SPIRIVA HANDIHALER) | the lungs Daily. | | | 11 | 2 | | 18 mcg inhalation | | | | | | | capsule | | | | | | + [...] [place] | | | | | | [id number] | | | | | | | | +--------+ + + + + documented as of this encounter Visit Diagnoses Not on filedocumented in this encounter"
--- OUTSIDE RECORDS SUMMARY | ~2019-08-31 | XMS | Encounter Summary ---
Demographics + + + | Address | [address] | | | [place] [address] | + + + | Home Phone | | + + + | Preferred Language | Unknown | + + + | Marital Status | Single | + + + | Samaritan Affiliation | Unknown | + + + | Race | Unknown | + + + | Ethnic Group | Other Race | + + + Author + + + | Author | [facility] | + + + | Organization | [facility] | + + + | Address | Unknown | + + + | Phone | Unavailable | + + + Care Team Providers + +------+ + | Care Accounts Receivable Representative Name | Role | Phone | + +------+ + PCP | Unavailable | + +------+ + Encounter Details +--------+ + + + + | Date | Type | Department | Care Team | Description | +--------+ + + + + | 03/09/ | Abstract | Neurology Movement | Clinic, Neurology | | | 2012 | | Disorders Clinic at | | | | | | [facility] | | | | | | and Healing [address] | | | | | | [address] Mailcode: | | | | | | [id number] | | | | | | [facility], | | | | | | Building | | | | | | Floor [place], [place] | | | | | | [address] | | | | | | [phone] | | | +--------+ + + + [...]
--- OUTSIDE RECORDS SUMMARY | ~2019-08-31 | XMS | Encounter Summary ---
Demographics + + + | Address | [address] | | | [place] [address] | + + + | Home Phone | | + + + | Preferred Language | Unknown | + + + | Marital Status | | + + + | Worship Affiliation | 1061 | + + + [...] [address] | | | | | [address] | | + + + + + | Tanika Jean | ECON | Unknown | | + + + + + Care Team Providers + +------+ + | Care Communications Field Technician Name | Role | Phone | [...] Description | +--------+--------+ + + + | 06/15/ | Refill | [facility] [place] | [place], | Medication Refill | | 2013 | | PULMONARY [address] | Ling Frazier MD | | | | | [place], | | | | | | [place] [address] | | | | | | [phone] | | | +--------+--------+ + + + [...] | | | | | [place] [facility] | | | | | | [id number] | | | | | | | | +--------+ + + + + documented as of this encounter Visit Diagnoses + + | Diagnosis | + + | COPD (chronic obstructive pulmonary disease) (HCC) - Primary Chronic airway | | obstruction, not elsewhere classified | + + documented in this encounter"
--- OUTSIDE RECORDS SUMMARY | ~2019-08-31 | XMS | Encounter Summary ---
Demographics + + + | Address | [address] | | | [place] [address] | + + + | Home Phone | | + + + | Preferred Language | Unknown | + + + | Marital Status | | + + + | Adventism Affiliation | 1061 | + + + | Race | Unknown | + + + | Ethnic Group | Unknown | + + + Author + + + | Author | [facility] | | | and [place] | + + + | Organization | [facility] | | | and [place] | + + + | Address | Unknown | + + + | Phone | Unavailable | + + + Support + + + + + | Name | Relationship | Address | Phone | + + + + + | Palak Aguilar | ECON | [address] | | | | | [address] | | + + + + + | Tanika Jean | ECON | Unknown | | + + + + + Care Team Providers + +------+ + | Care Learning Design Specialist Name | Role | Phone | + +------+ + | Jose Angel Reina MD | PCP | | + +------+ + Reason for Visit +--------+ + | Reason | Comments | +--------+ + | COPD | | +--------+ + Encounter Details +--------+---------+ + + + | Date | Type | Department | Care Team | Description | +--------+---------+ + + + | 06/14/ | Office | [facility] [place] | Chrissy, | Need for vaccination | | 2014 | Visit | PULMONARY [address] | Ling Frazier MD | with 13-polyvalent | | | | [place], | | pneumococcal | | | | [place] [address] | | conjugate vaccine | | | | [phone] | | (Primary Dx); COPD | | | | | | (chronic obstructive | | | | | | pulmonary disease); | | | | | | Nocturnal hypoxemia | | | | | | due to emphysema | | | | | | ([facility]); Periodic limb | | | | | | movement disorder; | | | | | | Tobacco abuse | +--------+---------+ + + + Social History [...] Cessation: Ready to Quit: No; Counseling Given: Yes | | Comments: currently smoking 1ppd, he wants [...] + + + | Blood Pressure | 114/72 | 06/14/2014 12:58 PM | | | | | PDT | | + + + + + | Pulse | 85 | 06/14/2014 12:58 PM | | | | | PDT | | + + + + + | Temperature | - | - | | + + + + + | Respiratory Rate | - | - | | + + + + + | Oxygen Saturation | 96% | 06/14/2014 12:58 PM | | | | | PDT | | + + + + + | Inhaled Oxygen | - | - | | | Concentration | | | | + + + + + | Weight | 100.3 kg (221 lb 1.6 | 06/14/2014 12:58 PM | | | | oz) | PDT | | + + + + + | Height | 175.3 cm (5' 9") | 06/14/2014 12:58 PM | | | | | PDT | | + + + + + | Body Mass Index | 32.65 | 06/14/2014 12:58 PM | | | | | PDT | | + + + + + documented in this encounter Patient Instructions Patient Instructions Ling Lowe MD - 06/14/2014 1:24 PM [id number] is a free service to help you or someone you care about quit using tobacco. Different people nee d different resources as they try to quit. The quit line can support both your immediate and long-term needs. Our coaches can talk to you about overcoming common barriers, like dealing with stress, cravings, irritability, and weight gain. The quit line is available in both En glish and Tajik with translation and TTY services. It is open 7 days a week. 24 hours a da except the October, , and . They may provide free patches or gum if you call. The most important part of quitting, is being very committed to quitting before you attempt it. You have to be ready to get rid of all of your cigarettes, everything that reminds you of smoking, clean your house to get rid of the smoking smell, and change your habits so that you do not get tempted to go back to smoking. You can't hang around people who are smoking either. If your is still smoking, she will have to go outside and out of sight to smoke . You might try calling [facility] and see if they offer classes on quitting smoking. [facility] offers free smoking cessation classes. We want t o support you in your decision to quit and help you have a better chance of success. Quittin g smoking is not easy, but you can do it. For registration or more information, please call Foreign Boswell R.N. at Stay on the Advair, Spiriva and Daliresp. documented in this encounter Progress Notes Ling Lowe MD - 06/14/2014 1:14 PM PDTFormatting of this note might be differe nt from the original. Pulmonary Follow Up HPI Nazario Aguilar Sr. is a 63 y.o. male patient of Jose Angel Reina here today f or follow up of COPD. At their last visit, we had recommended that he resume the Advair twice daily. Since their last visit he feels like he has been doing pretty well. He has not had any acute illnesses. He is currently on a regimen of Advair twice daily, Spiriva once daily, Daliresp 500 mcg da meena. He does feel like this medication regimen is working for them. Currently he is using h is rescue inhaler, ProAir, 1 time a day, most days. He is using his nebulizer, albuterol, 3 times a day. He returns today for routine follow up. Currently he is able to walk 1/4 mile at his own pace on level ground, using a walker, or a bout 1 lap around the [employer] He is doing physical therapy, but he is only workin g on his shoulder. In addition to this, he walks on occasion, 2-3 times a week, 1/4 mile, so metimes more. He does cough ocasionally, and does produce mucous on occasion. The mucous is clear in colo r. He has not had hemoptysis. He has been evaluated for nocturnal oxygen and does use it. He is currently on 3 LPM at [facility]. He reports good compliance. He is using ropinirole 1mg nightly, which well overall, though occasionally he still has re stless legs symptoms. He notes these will occur during the day before he takes it. He is still smoking. The Chantix made him pass out. We tried the Nicotrol inhaler, and he w as not successful. He has a history of seizures and is not eligible for Wellbutrin. Past Medical History Past Medical History Diagnosis Date COPD (chronic obstructive pulmonary disease) (HCC) Diabetes mellitus (HCC) HTN (hypertension) Seizure disorder (HCC) Restless legs syndrome Seasonal allergies PLMD (periodic limb movement disorder) Asthma Hyperlipidemia Hernia, hiatal Kidney stone Facet arthritis of lumbar region Ataxia Past Surgical History Past Surgical History Procedure Laterality Date Cholecystectomy Hernia repair Tonsillectomy Eye surgery Social History: History Social History Marital Status: Spouse Name: N/A Number of Children: N/A Years of Education: N/A Social History Main Topics Smoking status: Current Every Day Smoker -- 2.00 packs/day for 46 years Types: Cigarettes Smokeless tobacco: Never Used Comment: currently smoking 1ppd, he wants to quit Alcohol Use: No Drug Use: No Sexual Activity: None Other Topics Concern None Social History Narrative No known toxic chemical exposures. No known asbestos exposure. No known TB exposure. Has d ogs and cat in home. Allergies: Allergies Allergen Reactions Levofloxacin Varenicline Tartrate Chantix Medications: Outpatient Encounter Prescriptions as of 06/14/2014 Medication Sig Dispense Refill albuterol (PROAIR HFA) 90 mcg/puff inhaler Inhale 2 puffs into the lungs every 6 hours as needed. albuterol 2.5 mg/3 mL nebulizer solution Take 3 mLs by nebulization every 6 hours as ne eded for Wheezing or Shortness of Breath. Dx: 496 RINA: 99 months 360 vial 11 aspirin 81 mg EC tablet Take 81 mg by mouth Daily. hmskhio-xeqqtmgjfazav-fpozxaqo (HEADACHE RELIEF) 250-250-65 MG per tablet Take 1 tablet by mouth every 6 hours as needed. atorvaSTATin (LIPITOR) 80 MG tablet Take 80 mg by mouth nightly. carBAMazepine (EPITOL) 200 mg tablet Take 200 mg by mouth 4 times daily. Cyanocobalamin (B-12) 1000 MCG CAPS Take 1,000 mg by mouth Daily. DALIRESP 500 MCG tablet TAKE ONE TABLET BY MOUTH ONCE DAILY 30 tablet 0 diazepam (VALIUM) 2 mg tablet Take 2 mg by mouth every 6 hours as needed. diazepam (VALIUM) 2 mg tablet 1 tablet by mouth one hour prior to MRI; May repeat x 1. Do not drive after taking. 2 tablet 0 fluticasone (FLONASE) 50 mcg/nasal spray Use one spray in each nostril every day 16 g 5 fluticasone-salmeterol (ADVAIR DISKUS) 500-50 mcg/puff diskus inhaler Inhale 1 puff int o the lungs 2 times daily. Use every 12 hours, twice daily, every day. Rinse mouth after use . 1 each 11 lisinopril (PRINIVIL,ZESTRIL) 2.5 MG tablet Take 2.5 mg by mouth Daily. metFORMIN (GLUCOPHAGE) 500 mg tablet Take 500 mg by mouth 2 times daily. oxygen Inhale 3 L into the lungs nightly. rOPINIRole (REQUIP) 1 mg tablet TAKE ONE TABLET BY MOUTH NIGHTLY 30 tablet 10 Sennosides-Docusate Sodium (SENNA S PO) Take 2 tablets by mouth Daily. SPIRIVA HANDIHALER 18 MCG inhalation capsule INHALE ONE DOSE ONCE DAILY 30 capsule 0 No facility-administered encounter medications on file as of 06/14/2014. Review of Systems: General: []Weight loss/gain (over 10 lbs) []Fever/chills/sweats []Night sweats EENT: []Hearing loss []Vision loss/change []Sinus congestion/nasal drainage []Nosebleeds [] Hoarseness Cardiac: []Chest pain []Palpitations/heart racing []Swelling of legs/ankles []Waking up at night s hort of breath Gastrointestinal: []Nausea/vomiting []Difficulty swallowing []Heartburn/acid reflux []Loss of appetite []Abdo jimbo pain Urologic: []Blood in urine []Frequent urination at night []Burning/painful urination []Difficulty wit h urination Objective BP 114/72 | Pulse 85 | Ht 1.753 m (5' 9") | Wt 100.29 kg (221 lb 1.6 oz) | BMI 32.64 kg /m2 | SpO2 96% RA General Appearance: Alert, cooperative, no distress, appears stated age Head: Normocephalic, without obvious abnormality, atraumatic Eyes: PERRL, conjunctiva clear, no scleral icterus, EOM's intact Ears: Normal TM's, external auditory canals, slightly diminished acuity Nose: Nares normal, septum midline, mucosa [...] nodes: Cervical and supraclavicular nodes normal Data: Immunization History Administered Date(s) Administered INFLUENZA, >= 4YO W/PRESERVATIVE IM 01/18/2011 PNEUMOCOCCAL POLYSACCHARIDE 23-VALENT (PPSV23) 01/18/2010 QUADRIVALENT INFLUENZA, PRESERVATIVE FREE (PED/ADOL/ADULT) 12/28/2013 TDAP, (ADOL/ADULT) 01/19/2012 TRIVALENT INFLUENZA, PRESERATIVE FREE (PED/ADOL/ADULT) 01/19/2012, 03/16/2013 Assessment 1. COPD (chronic obstructive pulmonary disease) - He has been relatively stable. The Dalire sp does seem to have decreased the frequency of exacerbations for him. He has lost about 10 pounds of weight on this medication, and then stabilized. I would continue his current regimen. 2. 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 Last checked 05/2012. We sh ould check with next appointment as his lung disease has been more stable. 3. Periodic limb movement disorder - He notes his limb movements have improved. He still ge ts some symptoms of RLS, but this occurs during the daytime. I would advocate for treating p redominately the nighttime symptoms if the daytime symptoms are tolerable, as we will be les s likely to avoid medication side effects. 4. Tobacco abuse - Ongoing. We spent a lot of time discussing quitting. He has had a tenden cy to try quit aids, without a lot of thought or planning in to the process. I talked about the underlying commitment required today, and suggested he call the quitline for additional counseling (he also wants free patches or gum). I emphasized that he will need to make the a dditional commitment to getting rid of everything and cleaning everything. Plan 1.Continue on Spiriva, Daliresp and Advair. 2.Continue oxygen at night at 3L. Recheck overnight oximetry at next appointment. 3.Continue ropinirole 1mg at night. 4. I made several recommendations on working towards smoking cessation, mostly in terms of working on his commitment. 10 minutes was spent on counseling regarding smoking cessation. He was advised to call if new pulmonary symptoms were to develop. Return to clinic in 3 months, or sooner with concerns. CC: Jose Angel Reina Portions of this report were transcribed using voice recognition software. Every effort wa s made to ensure accuracy; however, inadvertent computerized manufacturing team member errors may be pre sent. 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
--- OUTSIDE RECORDS SUMMARY | ~2019-08-31 | XMS | Encounter Summary ---
Demographics + + + | Address | [address] | | | [place] [address] | + + + | Home Phone | | + + + | Preferred Language | Unknown | + + + | Marital Status | | + + + | Hoahaoism Affiliation | 1061 | + + + | Race | Unknown | + + + | Ethnic Group | Unknown | + + + Author + + + | Author | [facility] | | | and [place] | + + + | Organization | [facility] | | | and [place] | + + + | Address | Unknown | + + + | Phone | Unavailable | + + + Support + + + + + | Name | Relationship | Address | Phone | + + + + + | Palak Aguilar | ECON | [address] | | | | | [address] | | + + + + + | Tanika Jean | ECON | Unknown | | + + + + + Care Team Providers + +------+ + | Care Control Supervisor Name | Role | Phone | + +------+ + | Jose Angel Reina MD | PCP | | + +------+ + Encounter Details +--------+ + + + + | Date | Type | Department | Care Team | Description | +--------+ + + + + | 06/15/ | Orders Only | [facility] [place] | Claudia Michelle, | COPD (chronic | | 2013 | | PULMONARY [address] | RN | obstructive | | | | [place], | | pulmonary disease) | | | | [place] [address] | | ([facility]); Nocturnal | | | | [phone] | | hypoxemia | +--------+ + + + + Social [...] + | Comments: currently smoking up to 04/06 ppd | + + + + +---------+ [...] | | | | | [place] | | | | | | [address] | | | | | | | | +--------+ + + + + documented as of this encounter Visit Diagnoses + + | Diagnosis | + + | COPD (chronic obstructive pulmonary disease) (HCC) Chronic airway obstruction, not | | elsewhere classified | + + | Nocturnal hypoxemia Hypoxemia | + + documented in this encounter"
--- OUTSIDE RECORDS SUMMARY | ~2019-08-31 | XMS | Encounter Summary ---
Demographics + + + | Address | [address] | | | [place] [address] | + + + | Home Phone [...] #[address] | | | | | [address] | | + + + + + | Tanika Jean | ECON | Unknown | | + + + + + Care Team Providers + +------+ + | Care Wet Crown Blocking Operator Name | Role | Phone | [...] | | | | | [address] [facility] | [place] [address] | | | | | [place] [address] | | | | | | [phone] | | | +--------+ + + + [...] [place] | | | | | | [address] | | | | | | | | +--------+ + + + + documented as of this encounter Procedures + +--------+ + + + | Procedure Name | Priori | Date/Time | Associated Diagnosis | Comments | | | ty | | | | + +--------+ + + + | XR CHEST 1 VIEW | Routin | 12/26/2016 | | Results for this | | | e | 12:55 AM | | procedure are in the | | | | PDT | | results section. | + +--------+ + + + documented in this encounter Results XR Chest 1 Vw (12/26/2016 12:55 AM PDT) + + | Specimen | + + | | + + + + + | Narrative | Performed At | + + + | External films for comparison only - no result from [place]. | [facility] | + + + + +---------+ + + | Performing | Address | City/State/Zipcode | Phone Number | | Organization | | | | + +---------+ + + | [facility] | | | | + +---------+ + + documented in this encounter Visit Diagnoses Not on filedocumented in this encounter"
--- OUTSIDE RECORDS SUMMARY | ~2019-08-31 | XMS | Encounter Summary ---
Demographics + + + | Address | [address] | | | [place] [address] | + + + | Home Phone | | + + + | Preferred Language | Unknown | + + + | Marital Status | | + + + | Anabaptism Affiliation | 1061 | + + + | Race | Unknown | + + + | Ethnic Group | Unknown | + + + Author + + + | Author | [facility] | | | and [place] | + + + | Organization | [facility] | | | and [place] | + + + | Address | Unknown | + + + | Phone | Unavailable | + + + Support + + + + + | Name | Relationship | Address | Phone | + + + + + | Palak Aguilar | ECON | [address] | | | | | [address] | | + + + + + | Tanika Jean | ECON | Unknown | | + + + + + Care Team Providers + +------+ + | Care Lifeline Representatives Name | Role | Phone | + [...] | +--------+ + + + + | 12/21/ | Telephone | [facility] | Roderick Williamson MD [address] | Other | | 2012 | | NEUROLOGY [place] | [facility] | | | | | [address], | [address] [place], | | | | | [address] [place] | [place] [address] | | | | | [place] [address] | [phone] | | | | | [phone] | | | +--------+ + + + [...] [place] | | | | | | [address] | | | | | | | | +--------+ + + + + documented as of this encounter Visit Diagnoses Not on filedocumented in this encounter"
--- OUTSIDE RECORDS SUMMARY | ~2019-08-31 | XMS | Encounter Summary ---
Demographics + + + | Address | [address] | | | [place] [address] | + + + | Home Phone [...] + + + | Author | [facility] | | | and [place] | + + + | Organization | [facility] | | | and [place] | + + + | Address | Unknown | + + + | Phone | Unavailable | + + + Support + + + + + | Name | Relationship | Address | Phone | + + + + + | Palak Gipsonock | ECON | [id number] | | | | | [address] | | + + + + + | Tanika Jean | ECON | Unknown | | + + + + + Care Team Providers + +------+ + | Care Neurology Manager Name | Role | Phone | [...] | | | | | | [place] [address] | | | | | | [phone] | | | +--------+--------+ + + + [...] | | | | | [place] | | | | | | [address] | | | | | | | [...]
--- OUTSIDE RECORDS SUMMARY | ~2019-08-31 | XMS | Encounter Summary ---
Demographics + + + | Address | [address] | | | [place] [address] | + + + | Home Phone | | + + + | Preferred Language | Unknown | + + + | Marital Status | | + + + | Congregation Affiliation | 1061 | + + + | Race | Unknown | + + + | Ethnic Group | Unknown | + + + Author + + + | Author | [facility] | | | and [place] | + + + | Organization | [facility] | | | and [place] | + + + | Address | Unknown | + + + | Phone | Unavailable | + + + Support + + + + + | Name | Relationship | Address | Phone | + + + + + | Palak Aguilar | ECON | [address] | | | | | [address] | | + + + + + | Tanika Jean | ECON | Unknown | | + + + + + Care Team Providers + +------+ + | Care Elevator Constructor Electric Name | Role | Phone | + [...] | +--------+ + + + + | 05/23/ | Telephone | [facility] | Micah Del Cid | Other | | 2014 | | PHYSIATRY [address] | [address] | | | | [address] | [address] [place], [place] | | | | | [place], [place] | [address] | | | | | [address] | | | | | | [phone] | | | +--------+ + + + [...] [place] | | | | | | [address] | | | | | | | | +--------+ + + + + documented as of this encounter Visit Diagnoses Not on filedocumented in this encounter"
--- OUTSIDE RECORDS SUMMARY | ~2019-08-31 | XMS | Encounter Summary ---
Demographics + + + | Address | [address] | | | [place] [address] | + + + | Home Phone | | + + + | Preferred Language | Unknown | + + + | Marital Status | | + + + | Jain Affiliation | 1061 | + + + | Race | Unknown | + + + | Ethnic Group | Unknown | + + + Author + + + | Author | [facility] | | | and [place] | + + + | Organization | [facility] | | | and [place] | + + + | Address | Unknown | + + + | Phone | Unavailable | + + + Support + + + + + | Name | Relationship | Address | Phone | + + + + + | Palak Gipsonock | ECON | [id number] | | | | | [address] | | + + + + + | Tanika Jean | ECON | Unknown | | + + + + + Care Team Providers + +------+ + | Care Register In Chancery Name | Role | Phone | + [...] Description | +--------+--------+ + + + | 04/28/ | Refill | [facility] [place] | [place], | Medication Refill | | 2014 | | PULMONARY [address] | Ling Frazier MD | | | | | [place], | | | | | | [place] [address] | | | | | | [phone] | | | +--------+--------+ + + + [...] | | | | | [place] | | | | | | [address] | | | | | | | [...]
--- OUTSIDE RECORDS SUMMARY | ~2019-08-31 | XMS | Encounter Summary ---
Demographics + + + | Address | [address] | | | [place] [address] | + + + | Home Phone | | + + + | Preferred Language | Unknown | + + + | Marital Status | | + + + | Latter-Day Affiliation | 1061 | + + + | Race | Unknown | + + + | Ethnic Group | Unknown | + + + Author + + + | Author | [facility] | | | and [place] | + + + | Organization | [facility] | | | and [place] | + + + | Address | Unknown | + + + | Phone | Unavailable | + + + Support + + + + + | Name | Relationship | Address | Phone | + + + + + | Palak Aguilar | ECON | [address] | | | | | [address] | | + + + + + | Tanika Jean | ECON | Unknown | | + + + + + Care Team Providers + +------+ + | Care Overhead Distribution Engineer Name | Role | Phone | + +------+ + | Jose Angel Reina MD | PCP | | + +------+ + Reason for Visit + + + | Reason | Comments | + + + | Follow-up | | + + + Encounter Details +--------+---------+ + + + | Date | Type | Department | Care Team | Description | +--------+---------+ + + + | 01/18/ | Office | [facility] | [place], | COPD (chronic | | 2011 | Visit | PULMONARY [address] | Ling Frazier MD | obstructive | | | | [place], | | pulmonary disease) | | | | [place] [address] | | ([facility]) (Primary Dx); | | | | [phone] | | Hypoxemia; Periodic | | | | | | limb movement | | | | | | disorder; Needs flu | | | | | | shot; Need for Tdap | | | | | | vaccination [...] + | Blood Pressure | 120/80 | 01/19/2012 12:56 PM | | | | | PDT | | + + + + + | Pulse | 79 | 01/19/2012 12:56 PM | | | | | PDT | | + + + + + | Temperature | - | - | | + + + + + | Respiratory Rate | - | - | | + + + + + | Oxygen Saturation | 96% | 01/19/2012 12:56 PM | at 3 L/M | | | | PDT | | + + + + + | Inhaled Oxygen | - | - | | | Concentration | | | | + + + + + | Weight | 104.2 kg (229 lb | 01/19/2012 12:56 PM | | | | 11.2 oz) | PDT | | + + + + + | Height | 175.3 cm (5' 9") | 01/19/2012 12:56 PM | | | | | PDT | | + + + + + | Body Mass Index | 33.92 | 01/19/2012 12:56 PM | | | | | PDT | | + + + + + documented in this encounter Patient Instructions Patient Instructions Ling Lowe MD - 01/19/2012 1:36 PM PDT Home | Back SP COPD: Using Inhalers Some COPD medications are taken using a device called an inhaler. The inhaler helps you dara e a measured dose of medication into your lungs. Not all inhalers work the same way. Have yo ur healthcare provider show you how to use and care for the type of inhaler you re given. Using Metered-Dose Inhalers (MDIs) with Spacers Breathe in Breathe out Metered-dose inhalers use a fine spray to dispense medication. You may be asked to use a sp acer (holding tube) with your inhaler. The spacer helps make sure all the medication you nee d goes to your lungs. 1. Remove the caps from the inhaler and spacer. Shake the inhaler well and attach the space r. If the inhaler is being used for the first time or has not been used in a while, prime it as directed by its maker. 2. Breathe out normally. Put the spacer between your teeth and close your lips tightly arou nd it. Keep your chin up. 3. [place] 1 puff into the spacer by pressing down on the inhaler. Then slowly breathe in as deeply as you can. This should take3 to5 seconds. (If you breathe too quickly, you may h ear a whistling sound in the spacer.) 4. Take the spacer out of your mouth. Hold your breath for a count of 10 (if possible). The n slowly breathe out. If a second dose is prescribed, wait at least 30 seconds before taking the next puff. Using MDIs Without Spacers Inhalers work best with spacers. But if you don t have your spacer with you, these tips w ill help. 1. Shake the inhaler and remove the cap. Breathe out through your mouth. 2. Put the inhaler mouthpiece in your mouth and close your lips tightly around it. (Or, if told to do so by your healthcare provider, hold the inhaler 1 to 2 inches from your mouth.) 3. Keep your chin up. [place] 1 puff by pressing down on the inhaler while breathing in deepl y through your mouth for about 5 seconds. Hold your breath for a count of 10. Then breathe o ut slowly. Using Dry-Powder Inhalers (DPIs) Some inhalers use tiny grains of powder to dispense medication. These don t require space rs. They often have counters that track how many doses you use. Dry-powder inhalers don t all work the same way. Be sure you know how to use yours properly. 1. Load the prescribed dose of medication by following the instructions that come with the inhaler. 2. Breathe out normally, holding the inhaler away from your mouth. Hold your chin up. 3. Put the mouthpiece between your lips. Breathe in quickly and deeply through the inhaler not through your nose. You may not feel or taste the medication as you breathe in. This is normal. 4. Take the mouthpiece out of your mouth. Hold your breath for a count of 10 (if possible). 5. Breathe out slowly but not through the inhaler. Moisture from your breath can make the powder stick inside the inhaler. Also, be sure to close the inhaler and store it in a dry p lace. [id number] [facility], [address] [place] [address], [place] [address]. All rights reserve d. This information is not intended as a substitute for professional medical care. Always fo llow your healthcare professional's instructions. documented in this encounter Progress Notes Ling Lowe MD - 01/19/2012 1:13 PM PDTFormatting of this note might be differe nt from the original. Pulmonary Follow Up HPI Nazario Aguilar is a 61 y.o. male patient of Jose Angel Reina MD here today for foll ow up of COPD. At their last visit, we continued his current him on his current medication regimen. We did start a nictotrol inhaler for his tobacco abuse. Since their last visit he feels like he h as been doing well. They have not had any acute illnesses. They are currently on a regimen o f Spiriva, Advair, Daliresp, Duonebs, Ventolin. They do feel like this medication regimen i s working for them. They return today for routine follow up. Currently they are using their rescue inhaler, Ventolin, 4 times a day. They are using their nebulizer, Duonebs, 4 times a day. Currently they are able to walk 100 feet at their own pace on level ground. He notes that h is legs get weak if he walks too far. He is not doing any regular exercise. He has not done pulmonary rehab in the past, but he would be interested in doing physical therapy at [facility]. He does not cough chronically, and does produce mucous, which is scant in amount. The mucou s is yellowish to clear in color. They have not had hemoptysis. He has been evaluated for nocturnal oxygen and does use it. They are currently on 3 LPM at night. They report good compliance. They have been evaluated for daytime oxygen and do use i t. They are currently on 3 LPM. He does not have symptoms of heartburn or reflux. They have not had symptoms of nasal conge stion, runny nose or post nasal drip. He is on fluticasone nasal spray. He is no longer having many leg movements at night. He feels like his sleep quality is bett er with the ropinirole. He feels like his restless legs symptoms are better. He is not wakin g up as often any more. Past Medical History He has a past medical history of COPD (chronic obstructive pulmonary disease); Diabetes vanessa litus; HTN (hypertension); Seizure disorder; Restless legs syndrome; Seasonal allergies; and Dyslipidemia. Past Surgical History He has past surgical history that includes Cholecystectomy; hernia repair; Tonsillectomy; a nd Eye surgery. Social History: He reports that he has been smoking Cigarettes. He has a 23 pack-year smoking history. He has never used smokeless tobacco. He reports that he does not drink alcohol or use illicit d rugs. Allergies: Allergies Allergen Reactions Levaquin Outpatient Prescriptions Prior to Visit Medication Sig Dispense Refill nicotine (NICOTROL) 10 mg inhaler Inhale up to 16 cartridges a day as needed for nictot ine cravings. ezetimibe-simvastatin (VYTORIN) 10-80 MG per tablet Take 10-80 mg by mouth Daily. fluticasone (FLONASE) 50 mcg/nasal spray 2 sprays in each nostril daily metFORMIN (GLUCOPHAGE) 500 mg tablet Take 500 mg by mouth 2 times daily. carBAMazepine (EPITOL) 200 mg tablet Take 200 mg by mouth 4 times daily. albuterol-ipratropium (DUONEB) 2.5-0.5 mg/3 mL SOLN Use in nebulizer every 4 hours as n eeded for shortness of breath tiotropium (SPIRIVA HANDIHALER) 18 mcg inhalation capsule Inhale 18 mcg into the lungs Daily. roflumilast (DALIRESP) 500 mcg tablet Take 500 mcg by mouth Daily. fluticasone-salmeterol (ADVAIR DISKUS) 500-50 mcg/puff diskus inhaler 1 puff inhaled tw ice daily rOPINIRole (REQUIP) 0.25 mg tablet 0.25 mg by mouth at bedtime for 2 days then 0.5 mg b y mouth at bedtime Acetaminophen (TYLENOL EXTRA STRENGTH PO) TABS. As needed albuterol (PROVENTIL HFA) 90 mcg/puff inhaler 2 puffs inhaled every 4 hours as needed f or shortness of breath CLOTRIMAZOLE MT TROC. 10 mg tablets dissolve 1 up to 5 times a day Review of Systems Constitutional: Denies fever, chills, sweats, and change in weight. Sleep: Snores a little bit. Sleep quality is much better with ropinirole. Eyes: Denies vision change and eye irritation. ENT: Denies earache, decreased hearing, nasal congestion, nosebleeds, sore throat, and ho arseness. Resp: See HPI. CV: Denies palpitations, syncope, and peripheral edema. Has 1 episode of chest pain, doesn 't remember when. GI: Denies heartburn, nausea, vomiting, and abdominal pain. : Denies difficulty emptying bladder. He wakes up once a night to urinate. Objective BP 120/80 | Pulse 79 | Ht 1.753 m (5' 9") | Wt 104.191 kg (229 lb 11.2 oz) | BMI 33.92 kg/m 2 | SpO2 96% General Appearance: Alert, cooperative, no distress, appears older than stated age, on sup plemental oxygen Head: Normocephalic, without obvious abnormality, atraumatic Eyes: PERRL, conjunctiva clear, no scleral icterus, EOM's intact Ears: Normal TM's, external auditory canals, and acuity Nose: Nares normal, septum midline, mucosa normal, no drainage Mouth: Normal dentition; no oral lesions or exudate Neck: Supple, symmetrical, no adenopathy Lungs: No accessory muscle use, breath sounds are diminished bilaterally with prolongatio n of the expiratory phase, no wheezes, crackles or rhonchi Chest Wall: No deformity Heart: Regular rate and rhythm, no murmur, rub or gallop Abdomen: Soft, non-tender, non-distended, obese Extremities: No cyanosis, clubbing, or edema Pulses: Radial pulses 2+ and symmetric Skin: Warm and dry Lymph nodes: Cervical and supraclavicular nodes normal Neurologic: Gait normal Data: No new data. Assessment /Plan Mr. Aguilar was seen today for follow-up of COPD. Diagnoses and associated orders for this visit: Copd (chronic obstructive pulmonary disease) He is stable, but understandably concerned about the upcoming winter. He is already on maxi mal medical therapy, including Daliresp (plus actually Duonebs and Spiriva, which is technic ally contraindicated, but he has had no significant adverse effects from). I stressed preven tative care. He is interested in getting a job this winter, and I am not opposed to the idea , as long as he could be indoors, not exposed to a lot of potentially sick people, and it wa s only a couple of hours a day and not overly taxing on him. I also emphasized good hand hyg iene. Other things of importance include vaccination, and today we will give the influenza a nd TDaP vaccines. Hypoxemia He is stable on 3LPM of oxygen. He had a recent sleep study showing that he did not have sl eep apnea. Periodic limb movement disorder His symptoms of limb movements and restless legs are much better controlled now that he is on ropinirole. His sleep quality is also better. We will continue. Needs flu shot - MS FLU VACCINE =>3YO PRESERVATIVE FREE IM Need for tdap vaccination - Tdap vaccine greater than or equal to 7yo IM Return to clinic in 4 months, or sooner if needed. I did ask them to call if he develops mo re symptoms from this possible early URI. CC: Jose Angel Reina MDElectronically signed by Ling Lowe MD at 012 2:39 PM PDTdocumented in this encounter Plan of Treatment +--------+ + + + + | Date | Type | Specialty | Care Team | Description | +--------+ + + + + | 11/16/ | Appointment | Radiology | Alfonso Wallace MD | | | 2019 | | | [address] | | | | | | [place] | | | | | | [address] | | | | | | | | +--------+ + + + + documented as of this encounter Visit Diagnoses + + | Diagnosis | + + | COPD (chronic obstructive pulmonary disease) (HCC) - Primary Chronic airway | | obstruction, not elsewhere classified | + + | Hypoxemia | + + | Periodic limb movement disorder | + + | Needs flu shot Need for prophylactic vaccination and inoculation against influenza | + + | Need for Tdap vaccination Need for prophylactic vaccination with combined | | sjwlbuirjk-lwairls-czcudteyq (DTP) vaccine | + + documented in this encounter
--- OUTSIDE RECORDS SUMMARY | ~2019-08-31 | XMS | Encounter Summary ---
Demographics + + + | Address | [address] | | | [place] [address] | + + + | Home Phone [...] [id number] | | | | | [address] | | + + + + + | Tanika Jean | ECON | Unknown | | + + + + + Care Team Providers + +------+ + | Care Brood Hatchery Manager Name | Role | Phone | [...] Description | +--------+--------+ + + + | 04/13/ | Refill | [facility] [place] | [place], | Medication Refill | | 2014 | | [address]ULMONARY [address] | Ling Frazier MD | | | | | [place], | | | | | | [place] [address] | | | | | | [phone] | | | +--------+--------+ + + + [...] | | | | | [place] | | | | | | [address] | | | | | | | [...]
--- OUTSIDE RECORDS SUMMARY | ~2019-08-31 | XMS | Encounter Summary ---
Demographics + + + | Address | [address] | | | [place] [address] | + + + | Home Phone | | + + + | Preferred Language | Unknown | + + + | Marital Status | | + + + | Druze Affiliation | 1061 | + + + | Race | Unknown | + + + | Ethnic Group | Unknown | + + + Author + + + | Author | [facility] | | | and [place] | + + + | Organization | [facility] | | | and [place] | + + + | Address | Unknown | + + + | Phone | Unavailable | + + + Support + + + + + | Name | Relationship | Address | Phone | + + + + + | Palak Aguilar | ECON | [address] | | | | | [address] | | + + + + + | Tanika Jean | ECON | Unknown | | + + + + + Care Team Providers + +------+ + | Care Legal Paraprofessional Name | Role | Phone | + [...] Description | +--------+--------+ + + + | 07/25/ | Refill | [facility] [place] | [place], | Medication Refill | | 2015 | | [address]ULMONARY [address] | Ling Frazier MD | | | | | [place], | | | | | | [place] [address] | | | | | | [phone] | | | +--------+--------+ + + + [...] [place] | | | | | | [id number] | | | | | | | | +--------+ + + + + documented as of this encounter Visit Diagnoses Not on filedocumented in this encounter"
--- OUTSIDE RECORDS SUMMARY | ~2019-08-31 | XMS | Encounter Summary ---
Demographics + + + | Address | [address] | | | [place] [address] | + + + | Home Phone [...] Author | [facility] | | | and [place] | + + + | Organization | [facility] [...] [id number] | | | | | [address] | | + + + + + | Tanika Jean | ECON | Unknown | | + + + + + Care Team Providers + +------+ + | Care Plumbing Installer Name | Role | Phone | + [...] + + | 09/24/ | Office | [facility] | [place], | COPD (chronic | | 2014 | Visit | [address]ULMONARY [address] | Ling Frazier MD | obstructive | | | | [place], | | pulmonary disease) | | | | [place] [address] | | ([facility]) (Primary Dx); | | | | [phone] | | Nocturnal hypoxemia | | | | | | due to emphysema | | | | | | ([facility]); Allergic | | | | | | [...] an overnight oxy gen test through [facility]. Call the [facility] before you pick it up to make sure they have a box available. You will orange picker a box at the [facility]. Do the t est on 3L. Wear [...] Dr. Cyril tomlinson on October 10 at [facility]. He has not had any acute illnesses. He did have difficulties getting his medications refilled, as they were being refilled [facility] with no refills. He is currently on [...] pace on level ground. He walks at [facility] and walks around his yard. He is not exercising regularly. He does tend to lean on the shopping cart when he walks at [facility] and in fact someone commented on this. He does cough chronically, occasionally at night. He rarely brings up phlegm. He has been evaluated for nocturnal oxygen and does use it. He is currently on 3 LPM at [facility]. He reports good compliance. He has had [...] tablet Take 81 mg by mouth Daily. zghjaxh-fdmftvwyqdyqi-zqoxhppn (HEADACHE RELIEF) 250-250-65 MG per tablet Take [...] ICD-9-CM 1. COPD (chronic obstructive pulmonary disease) ([facility]) 496 Doing better despite severe disea se. He is no longer having frequent exacerbations. He has also lost about 20 pounds, likely on the Daliresp. We will continue current medications, 1 year refills sent on most prescriptions. roflumilast (DALIRESP) 500 mcg tablet tiotropium (SPIRIVA HANDIHALER) 18 mcg inhalation capsule 2. Nocturnal hypoxemia due to emphysema ([facility]) 492.8 On oxygen at 3L. Due for [...] made to ensure accuracy; however, inadvertent computerized store warehouse associate errors may be pre sent. documented in [...] [place] | | | | | | [address] | | | | | | | | +--------+ + + + + + + +--------+ + + | Name [...] (HCC) Other emphysema | + + | Allergic rhinitis, unspecified allergic rhinitis type | + + | Tobacco abuse Tobacco use disorder | + + documented in this encounter
--- OUTSIDE RECORDS SUMMARY | ~2019-08-31 | XMS | Encounter Summary ---
Demographics + + + | Address | [address] | | | [place] [address] | + + + | Home Phone | | + + + | Preferred Language | Unknown | + + + | Marital Status | | + + + | Restorationist Affiliation | 1061 | + + + | Race | Unknown | + + + | Ethnic Group | Unknown | + + + Author + + + | Author | [facility] | | | and [place] | + + + | Organization | [facility] | | | and [place] | + + + | Address | Unknown | + + + | Phone | Unavailable | + + + Support + + + + + | Name | Relationship | Address | Phone | + + + + + | Palak Gipsonock | ECON | [id number] | | | | | [address] | | + + + + + | Tnaika Jean | ECON | Unknown | | + + + + + Care Team Providers + +------+ + | Care Lawn Sprinkler Installer Name | Role | Phone | [...] | | | | | | [place] [address] | | | | | | [phone] | | | +--------+--------+ + + + [...] [place] | | | | | | [address] | | | | | | | [...]
--- OUTSIDE RECORDS SUMMARY | ~2019-08-31 | XMS | Encounter Summary ---
Demographics + + + | Address | [address] | | | [place] [address] | + + + | Home Phone | | + + + | Preferred Language | Unknown | + + + | Marital Status | | + + + | Jew Affiliation | 1061 | + + + | Race | Unknown | + + + | Ethnic Group | Unknown | + + + Author + + + | Author | [facility] | | | and [place] | + + + | Organization | [facility] | | | and [place] | + + + | Address | Unknown | + + + | Phone | Unavailable | + + + Support + + + + + | Name | Relationship | Address | Phone | + + + + + | Palak Gipsonock | ECON | [id number] | | | | | [address] | | + + + + + | Tanika Jean | ECON | Unknown | | + + + + + Care Team Providers + +------+ + | Care Firer Helper Name | Role | Phone | [...] | | | | | | [place] [address] | | | | | | [phone] | | | +--------+--------+ + + + [...] [place] | | | | | | [id number] | | | | | | | [...]
--- OUTSIDE RECORDS SUMMARY | ~2019-08-31 | XMS | Encounter Summary ---
Demographics + + + | Address | [address] | | | [place] [address] | + + + | Home Phone | | + + + | Preferred Language | Unknown | + + + | Marital Status | | + + + | Baptist Affiliation | 1061 | + + + | Race | Unknown | + + + | Ethnic Group | Unknown | + + + Author + + + | Author | [facility] | | | and [place] | + + + | Organization | [facility] | | | and [place] | + + + | Address | Unknown | + + + | Phone | Unavailable | + + + Support + + + + + | Name | Relationship | Address | Phone | + + + + + | Palak Gipsonock | ECON | [id number] | | | | | [address] | | + + + + + | Tanika Jean | ECON | Unknown | | + + + + + Care Team Providers + +------+ + | Care Web Site Developer Name | Role | Phone | [...] Description | +--------+--------+ + + + | 10/21/ | Refill | [facility] [place] | [place], | Medication Refill | | 2013 | | [address]ULMONARY [address] | Ling Frazier MD | | | | | [place], | | | | | | [place] [address] | | | | | | [phone] | | | +--------+--------+ + + + [...] [place] | | | | | | [address] | | | | | | | [...]
--- OUTSIDE RECORDS SUMMARY | ~2019-08-31 | XMS | Encounter Summary ---
Demographics + + + | Address | [address] | | | [place] [address] | + + + | Home Phone | | + + + | Preferred Language | Unknown | + + + | Marital Status | | + + + | Zoroastrianism Affiliation | 1061 | + + + | Race | Unknown | + + + | Ethnic Group | Unknown | + + + Author + + + | Author | [facility] | | | and [place] | + + + | Organization | [facility] | | | and [place] | + + + | Address | Unknown | + + + | Phone | Unavailable | + + + Support + + + + + | Name | Relationship | Address | Phone | + + + + + | Palak Aguilar | ECON | [id number] | | | | | [address] | | + + + + + | Tanika Jean | ECON | Unknown | | + + + + + Care Team Providers + +------+ + | Care Credit Associate Name | Role | Phone | + +------+ + | Jose Angel Reina MD | PCP | | + +------+ + Reason for Referral Evaluate & Treat (Routine) +--------+ + + + + + | Status | Reason | Specialty | Diagnoses / | Referred By | Referred To | | | | | Procedures | Contact | Contact | +--------+ + + + + + | Closed | Specialty | Physical | Diagnoses | [facility], | | | | Services | Therapy | Rotator | Karlos Gatica MD | | | | Required | | cuff | [address] | | | | | | tendonitis, | [address] | | | | | | right Right | [place], | | | | | | shoulder | [place] [address] | | | | | | pain | Phone: | | | | | | | [phone] | | | | | | | Fax: | | | | | | | [phone] | | +--------+ + + + + + Reason for Visit + + + | Reason | Comments | + + + | Procedure | right shoulder steroid injection | + + + Evaluate & Treat (Routine) +--------+ + + + + + | Status | Reason | Specialty | Diagnoses / | Referred By | Referred To | | | | | Procedures | Contact | Contact | +--------+ + + + + + | Closed | Specialty | Physical | Diagnoses | [facility], | Karlos Craig | | | Services | Medicine and | Right | Karlos Gatica MD | Deion Gatica MD [address] | | | Required | Rehabilitatio | shoulder | [address] | | | | n | pain | [address] | [place], | | | | | Rotator cuff | [place], | [place] [address] | | | | | tendonitis, | [place] [address] | Phone: | | | | | right | Phone: | [phone] | | | | | | [phone] | Fax: | | | | | | Fax: | [phone] | | | | | | [phone] | | +--------+ + + + + + Encounter Details +--------+ + + + + | Date | Type | Department | Care Team | Description | +--------+ + + + + | 11/09/ | Procedure | [facility] | Karlos Craig, | Rotator cuff | | 2013 | visit | PHYSIATRY [address] | MD [address] | tendonitis, right | | | | [address] | [place] | (Primary Dx); Right | | | | [place] | [id number] | shoulder pain | | | | [address] | | | | | | [phone] | | | +--------+ + + + [...] + + + | Blood Pressure | 94/68 | 11/09/2013 3:27 PM | | | | | PDT | | + + + + + | Pulse | 78 | 11/09/2013 3:27 PM | | | | | PDT | | + + + + + | Temperature | - | - | | + + + + + | Respiratory Rate | 18 | 11/09/2013 3:27 PM | | | | | PDT | | + + + + + | Oxygen Saturation | - | - | | + + + + + | Inhaled Oxygen | - | - | | | Concentration | | | | + + + + + | Weight | 99.3 kg (219 lb) | 11/09/2013 3:27 PM | | | | | PDT | | + + + + + | Height | 175.3 cm (5' 9") | 11/09/2013 3:27 PM | | | | | PDT | | + + + + + | Body Mass Index | 32.34 | 11/09/2013 3:27 PM | | | | | PDT | | + + + + + documented in this encounter Patient Instructions Patient Instructions Karlos Craig MD - 11/09/2013 3:40 PM PDTIf you develop any signs of infection (e.g. Fever, chills, redness, warmth, drainage) seek emergent medical attention and inform the clinic. Feel free to use ice, massage, and stretch after your injections to day. Please avoid direct heat, over the injections site, for 3 days following injection. Physical therapy has been prescribed. Please participate in physical therapy. If you have not be contacted for an appointment with physical therapy within one week, please contact [facility]. Once you have completed physical therapy please continue the home exercise progr am as outline by physical therapy, indefinitely. Return to the clinic in 6 weeks. If shoulder pain persists we will consider MRI.Electronic ally signed by Karlos Craig MD at 11/09/2013 4:02 PM PDT documented in this encounter Progress Notes Karlos Craig MD - 11/09/2013 3:42 PM PDTFormatting of this note might be different fro m the original. Referring Physician: Karlos Craig MD Diagnosis: 1. Rotator cuff tendonitis, right 2. Right shoulder pain Procedure: Right shoulder subacromial steroid injection Procedure Detail: Informed consent was obtain. Risks, benefits and alternative treatments were reviewed. Risk s reviewed include, but not limited to bruising, bleeding, infection, damage to adjacent str uctures, disability and . We reviewed that with steroid injection, there is a risk of skin discoloration at the injection site. We reviewed that the benefits of this procedure w ill wear off over time. We reviewed that some people do not have any benefit from this proc edure. We discussed that diabetics may notice increased blood sugar after having steroid i njection, and that insulin, medication, and diet may need to be adjusted accordingly. We di scussed that steroid injection into any one joint should not be repeated more than 3-4 times per year. Once informed consent was obtained, a single 5 ml syringe was prepared. The syringe contain ed 1 ml of DepoMedrol 40 mg/ml and 4 ml of lidocaine 1%. The syringe had a total medication volume of 5 ml. The right shoulder subacromial space was identified from a posterior lateral approach, amelia omically and with palpation. The skin over the injection site was marked with pressure. The skin overlying the injection site was sterilized with betadine swabs x 3. The contents of th e first syringe was injected into the right shoulder subacromial space from a posterior late ral approach approach using a 25 gauge 1-1/2 inch needle. Sterile "no touch technique" was used for the entire procedure. The injection was tolerated without complication. After the injection the patient did report reduced pain. The patient was instructed that should they have any alarming signs or symptoms that they s hould seek emergent medical attention as well as inform my clinic. Alesha Sheth RN - 0 11/09/2013 3:29 PM PDTC/o right shoulder pain, rated 7/10. Here for steroid injection to rig ht shoulder. documented i n this encounter Plan of Treatment +--------+ + + + + | Date | Type | Specialty | Care Team | Description | +--------+ + + + + | 11/16/ | Appointment | Radiology | Alfonso Wallace MD | | | 2019 | | | [address] | | | | | | [place], [place] | | | | | | [id number] | | | | | | | | +--------+ + + + + + + +--------+ + + | Name | Type | Priori | Associated Diagnoses | Order Schedule | | | | ty | | | + + +--------+ + + | External Ambulatory | Outpatient | Routin | Rotator cuff | Ordered: 11/09/2013 | | referral to Physical | Referral | e | tendonitis, right | | | Therapy | | | Right shoulder pain | | + + +--------+ + + documented as of this encounter Visit Diagnoses + + | Diagnosis | + + | Rotator cuff tendonitis, right - Primary | + + | Right shoulder pain Pain in joint, shoulder region | + + documented in this encounter Administered Medications + + + +-------+------+ + | Medication Order | MAR | Action | Dose | Rate | Site | | | Action | Date | | | | + + + +-------+------+ + | methylPREDNISolone acetate | Given by | 11/10/19 | 40 mg | | Other | | (DEPO-MEDROL) 40 mg/mL injection | Other | 14 3:58 | | | (Comment | | 40 mg 40 mg, Intramuscular, | | PM PDT | | | ) | | ONCE, [facility] 11/09/13 at 1600, For 1 | | | | | | | dose, Not for IV use., | | | | | | + + + +-------+------+ + +---+---+ | | | +---+---+ documented in this encounter
--- OUTSIDE RECORDS SUMMARY | ~2019-08-31 | XMS | Encounter Summary ---
Demographics + + + | Address | [address] | | | [place] [address] | + + + | Home Phone [...] [id number] | | | | | [address] | | + + + + + | Tanika Jean | ECON | Unknown | | + + + + + Care Team Providers + +------+ + | Care Knock Out Hand Name | Role | Phone | + [...] | | | | | | [place] [address] | | | | | | [phone] | | | +--------+--------+ + + + [...] | | | | | [place] | | | | | | [address] | | | | | | | [...]
--- OUTSIDE RECORDS SUMMARY | ~2019-08-31 | XMS | Encounter Summary ---
Demographics + + + | Address | [address] | | | [place] [address] | + + + | Home Phone | | + + + | Preferred Language | Unknown | + + + | Marital Status | | + + + | Catholic Affiliation | 1061 | + + [...] [id number] | | | | | [address] | | + + + + + | Tanika Jean | ECON | Unknown | | + + + + + Care Team Providers + +------+ + | Care Delivery Route Driver Name | Role | Phone | + [...] | | | | | [facility] | [place] [address] | | | | | [place] [address] | | | | | | [phone] | | | +--------+ + + + [...] +--------+ + + + + | 11/16/ Appointment | Radiology | Alfonso Wallace MD | | | 2020 | | | [address] | | | | | | [place] | | | | | | [address] | | | | | | | | +--------+ + + + + documented as of this encounter Procedures + +--------+ + + + | Procedure Name | Priori | Date/Time | Associated Diagnosis | Comments | | | ty | | | | + +--------+ + + + | XR CHEST 1 VIEW | Routin | 11/19/2016 | | Results for this | | | e | 11:25 PM | | procedure are in the | | | | PDT | | results section. | + +--------+ + + + documented in this encounter Results XR Chest 1 Vw (11/19/2016 11:25 PM PDT) + + | Specimen | + + | | + + + + + | Narrative | Performed At | + + + | External films for comparison only - no result from [place]. | [facility] | + + + + +---------+ + + | Performing | Address | City/State/Zipcode | Phone Number | | Organization | | | | + +---------+ + + | [facility] | | | | + +---------+ + + documented in this encounter Visit Diagnoses Not on filedocumented in this encounter"
--- OUTSIDE RECORDS SUMMARY | ~2019-08-31 | XMS | Encounter Summary ---
Demographics + + + | Address | [address] | | | [place] [address] | + + + | Home Phone | | + + + | Preferred Language | Unknown | + + + | Marital Status | | + + + | Voodoo Affiliation | 1061 | + + + | Race | Unknown | + + + | Ethnic Group | Unknown | + + + Author + + + | Author | [facility] | | | and [place] | + + + | Organization | [facility] | | | and [place] | + + + | Address | Unknown | + + + | Phone | Unavailable | + + + Support + + + + + | Name | Relationship | Address | Phone | + + + + + | Palak Aguilar | ECON | [id number] | | | | | [address] | | + + + + + | Tanika Jean | ECON | Unknown | | + + + + + Care Team Providers + +------+ + | Care Cardiac Exercise Specialist Name | Role | Phone | + +------+ + | No, Physician | PCP | Unavailable | + +------+ + Reason for Visit +---------+ + | Reason | Comments | +---------+ + | Results | biopsy results and plan of care instructions | +---------+ + Encounter Details +--------+ + + + + | Date | Type | Department | Care Team | Description | +--------+ + + + + | 08/16/ | Telephone | [facility] | Aidee Mitchell RN | Results (biopsy | | 2020 | | PULMONOLOGY [address] | | results and plan of | | | | [address] | | care instructions ) | | | | [place] | | | | | | [address] | | | | | | [phone] | | | +--------+ + + + [...] [place] | | | | | | [id number] | | | | | | | | +--------+ + + + + documented as of this encounter Visit Diagnoses Not on filedocumented in this encounter"
--- OUTSIDE RECORDS SUMMARY | ~2019-08-31 | XMS | Encounter Summary ---
Demographics + + + | Address | [address] | | | [place] [address] | + + + | Home Phone | | + + + | Preferred Language | Unknown | + + + | Marital Status | | + + + | Lutheran Affiliation | 1061 | + + + | Race | Unknown | + + + | Ethnic Group | Unknown | + + + Author + + + | Author | Located Within [facility] | | | and [place] | + + + | Organization | Located Within [facility] | | | and [place] | + + + | Address | Unknown | + + + | Phone | Unavailable | + + + Support + + + + + | Name | Relationship | Address | Phone | + + + + + | Palak Daugherty | ECON | [address] | | | | | [address] | | + + + + + | Tanika Jean | ECON | Unknown | | + + + + + Care Team Providers + +------+ + | Care Product Assembler Name | Role | Phone | + [...] [facility] | | | | | Lumbar | Karlos Gatica MD | [address] | | | | | spinal | [address] | [place], | | | | | stenosis | [address] | [place] | | | | | Facet | [place], | [address] | | | | | arthritis of | [place] [address] | Phone: | | | | | lumbar | Phone: | [phone] | | | | | region | [phone] | Fax: | | | | | Lumbalgia | Fax: | [phone] | | | | | Procedures | [phone] | | | | | | MRI Lumbar | | | | | | | Spine wo | | | | | | | Contrast | | | +--------+--------+ + + + + Reason for Visit + + + | Reason | Comments | + + + | Gait Problem | | + + + | Follow-up | back pain, no pain at this time | + + + Encounter Details +--------+---------+ + + + | Date | Type | Department | Care Team | Description | +--------+---------+ + + + | 01/19/ | Office | [facility] | Karlos Craig, | Lumbar spinal | | 2012 | Visit | MEDICINE | [address] | stenosis (Primary | | | | RE[facility] [address] | [place] | Dx); Facet arthritis | | | | [address] | [id number] | of lumbar region; | | | | [place] | | Lumbalgia; | | | | [address] | | Claustrophobia | | | | [phone] | | | +--------+---------+ + + + [...] + + + | Blood Pressure | 122/68 | 01/19/2013 2:26 PM | | | | | PDT | | + + + + + | Pulse | 78 | 01/19/2013 2:26 PM | | | | | PDT | | + + + + + | Temperature | - | - | | + + + + + | Respiratory Rate | 20 | 01/19/2013 2:26 PM | | | | | PDT | | + + + + + | Oxygen Saturation | - | - | | + + + + + | Inhaled Oxygen | - | - | | | Concentration | | | | + + + + + | Weight | 103 kg (227 lb) | 01/19/2013 2:26 PM | | | | | PDT | | + + + + + | Height | 175.3 cm (5' 9") | 01/19/2013 2:26 PM | | | | | PDT | | + + + + + | Body Mass Index | 33.52 | 01/19/2013 2:26 PM | | | | | PDT | | + + + + + documented in this encounter Patient Instructions Patient Instructions Karlos Craig MD - 01/19/2013 3:00 PM PDTA MRI has been requested. Please complete the requested imaging. Within one week, you should receive a call to sche dule your MRI. If you have not heard from anyone within one week, please call the clinic. The results of your MRI will be reviewed at your next appointment. If your MRI demonstrates any emergent results, the clinic will contact you. We will request copies of your x-rays for review. Continue physical therapy. Return to the clinic in 4 weeks to review the results of your imaging. documented in this encounter Progress Notes Karlos Craig MD - 01/19/2013 3:02 PM PDTThis office note has been dictated. Job ID# [id number] signed by Karlos Craig MD at 01/19/2013 6:06 PM Arleen Ashby RN - 01/19/2013 2:28 PM PDTPatient stets he continues to have unsteady gait. No back lucinda n at this time. Patient continues to work with PT. Karlos Garcia MD - 01/19/2013 12:00 AM PDT PHYSICAL MEDICINE AND REHAB [address] [place] [address] FAX: [phone] OFFICE VISIT PHYSICAL MEDICINE REHABILITATION PROGRESS NOTE CONSULT REQUESTED BY: Ling Lowe MD DATE OF SERVICE: 01/19/2013 PRIMARY CARE PROVIDER: Jose Angel Reina MD. PATIENT IDENTIFICATION: A 62-year-old male with back pain, unsteady gait. History of emphys amanda and seizures. HISTORY OF PRESENT ILLNESS: Mr. Daugherty was last seen by me 12/08/2012. At that time he was noted to have unsteady gait, lumbalgia, tremor, history of seizures, emphysema, tobacco d ependence. His unsteady gait and tremor was felt to be likely due to some other neurologic issue. Neurology consult was requested. He was seen by Dr. Roderick Williamson, neurologist. Dr. 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 She suggested that he may have a familial neurologic tremor or disease. It was recommended that he be evaluated at [facility]. T his is pending. When he was last seen by me he was asked to be evaluated by physical therapy for core stab ilization of the back, lower extremity strengthening and evaluated for an assistive walking device to reduce his risk of falls. He has had 2 physical therapy appointments thus far. He is scheduled for the remainder of a months worth of physical therapy appointments yet to [facility]. Mr. Daugherty has not noted any significant change to his back pain at this time. When Brennan Daugherty was last seen, he had x-rays of his back that had already been taken, but were n ot available for review and these have been requested by my office, but have still not yet been received. We received report with the radiologist's interpretation of the imaging, but the imaging itself is not yet available for review. This imaging has once again been reque sted for review after today's appointment. According to the radiologist's report, there is "degenerative changes of the posterior [place] ents of L5, otherwise unremarkable lumbar spine." Mr. Daugherty indicates that his current back pain is a 0/10 on a numerical pain scale. He st ates that when his pain is present, it is usually just with standing and walking. He states that with sitting he has no pain. He states that his pain is intermittent but occurs daily intermittently throughout the day. Episodes of pain can last up to 30 minutes. He indicate s that pain radiates to both legs. He denies numbness or tingling in either leg. He denies bowel or bladder incontinence. He reports continued weakness in both legs. He reports some instability in the movement of the legs. ALLERGIES 1. LEVAQUIN. 2. VARENICLINE TARTRATE. CURRENT MEDICATIONS 1. Tylenol. 2. Albuterol. 3. DuoNeb. 4. Aspirin. 5. Lipitor. 6. Carbamazepine. 7. Cyclobenzaprine. 8. Valium. 9. Flonase. 10. Lisinopril. 11. Metformin. 12. Requip. 13. Spiriva. REVIEW OF SYSTEMS Mr. Daugherty denies nausea, vomiting, fever, chills, chest pain, skin breakdown, rash, inco ntinence of bowel or bladder. He reports ataxia, unsteady gait, a A feeling of weakness in the legs and back pain. All other review of systems negative. PHYSICAL EXAMINATION VITAL SIGNS: Heart rate 78, respiratory rate 20, blood pressure 122/68, weight 227 pounds, height 5 foot 9 inches. GENERAL: In no acute distress. Alert and oriented to person, place, time and situation. HE ENT: Extraocular muscles intact. Sclerae clear. NECK: Limited range of motion. Mild tenderness to palpation. Spurling's test negative. HEA RT: Regular rate and rhythm. No murmurs, no gallops. LUNGS: Increased expiratory phase. No wheezing, no crackles. Increased upper respiratory so unds that clear with cough. ABDOMEN: Nontender, positive for bowel sounds, obese. BACK: Diffuse tenderness to palpation. Seated straight leg raise negative. Harley's test negative. EXTREMITIES: Exam reveals no clubbing, cyanosis or edema. NEUROLOGICAL: Exam is unchanged. There is discoordination in the upper and lower extremities. There is relatively normal st rength in both lower extremities with 5/5 hip flexion, knee flexion, knee extension, ankle dorsiflexion, ankle plantar flexion. There is, however, some subtle weakness in right lower extremity with right knee flexion and ankle dorsiflexion. This raises possible question of lumbar radiculopathy. DATABASE: Imaging not available for review. IMPRESSION 1. LUMBAR SPINAL STENOSIS, ICD-9 724.02. 2. 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 3. LUMBALGIA, ICD-9 724.2. 4. CLAUSTROPHOBIA WITH MAGNETIC RESONANCE IMAGING, ICD-9 300.29. PLAN: Mr. Daugherty's x-rays were requested at the time of his appointment today. They are st ill not yet available. He had brain MRI on 12/29/2012. This imaging has been reviewed by me . I concur with the radiologist's report. At this point, I would like Mr. Daugherty to continue with physical therapy. It may help with his lower extremity strength instability, ataxia. He should be evaluated for assistive wal [place] devices originally requested. He is still undergoing this process. I am concerned that he continues to have back pain that occurs just with standing. This is most closely associ ated with lumbar spinal stenosis in regards to presentation. X-rays are not going to be abl e to evaluate for spinal stenosis in most cases. Since he has persisting symptoms, I would like him to have lumbar MRI. Lumbar MRI has been requested. He will return to the clinic on ce the MRI has been completed. He will continue physical therapy and will review the result s of the imaging and discuss whether further treatment is necessary for his back. If his [facility] MRI is normal, I would attribute his current sensation and symptoms as to the ataxia a nd neurologic diagnosis that Dr. Williamson has given him. However, if there is evidence of lumbar spinal stenosis, neural foraminal narrowing or contribution towards lumbar radiculopathy, these issues may be addressed. Approximately 30 minutes was spent tgei-ey-okas today with Mr. Daugherty, over half of which was spent formulating and discussing his medical treatment plan. Thank you for allowing me to be involved in the care of your patient. If you have any quest ions regarding the care of Mr. Daugherty, please do not hesitate to call. Karlos Craig Jr, MD [place] / PAP JOB #: [id number] cc: Peter Reina MD documented in this encounter Plan of [...] [place] | | | | | | [id number] | | | | | | | | +--------+ + + + + documented as of this encounter Results MRI Lumbar Spine wo Contrast (02/22/2013 3:17 PM PST) + + | Specimen | + + | | + + + + + | Narrative | Performed At | + + + | [facility] | [facility] | | Department [address] [facility], [place] | TK | | [ rep ct street[address]] [ rep ct [facility] | | st zip] Signed | - IMAGING | | | | | Patient Name: KEVIN DAUGHERTY SR | | | Physician: ROBINA : 1950 Age: 62 Sex: M Unit | | | #: [id number] Exam Date: 02/22/13 Location: | | | [facility] Report #: [id number] Page: | | | %(RAD)RES..mtdd.print.filter("pg") of %(RAD) | | | RES..mtdd.print.filter("tpg") | | | | | | Accession Number: [id number] | | | LUMBAR SPINE WITHOUT CONTRAST CLINICAL HISTORY: CHRONIC | | | LOW BACK PAIN WITH RADIATION TO BOTH LEGS. WEAKNESS. | | | COMPARISON: Lumbar spine radiograph dated 12/08/2012 from [facility]. TECHNIQUE: Multiplanar, | | | multisequence MRI imaging of the lumbar spine without contrast. | | | FINDINGS: Five lumbar-type vertebral bodies. There is | | | no scoliosis. There is no spondylolisthesis. No compression | | | deformities. Normal height and signal of the visualized vertebral | | | bodies. No disk desiccation or disk space narrowing. The conus | | | is seen terminating at the L1 level. The visible distal cord is | | | unremarkable. The following levels are evaluated in the | | | axial plane: L1-2: No significant disk bulge or protrusion. | | | There is a very small foraminal component of protrusion on the | | | left which does not significantly narrow the neural foramen. The | | | central spinal canal is widely patent. There is a small fluid | | | collection along the posterior margin of the left facet. This likely | | | represents a facet cyst. It measures 15 mm longitudinally but only | | | 3.5 transversely. There is very minimal facet arthrosis at this | | | level. L3-4: Mild facet arthrosis. A small facet cyst is | | | also seen on the left side at this level but it measures in the | | | realm of 6 mm. There is a small foraminal component of disk | | | protrusion on the left. There is mild foraminal narrowing on the | | | right and mild to moderate on the left. Both of these are | | | contributed to by a congenitally short pedicles and mild facet | | | changes. L4-5: Mild to moderate bilateral facet | | | arthrosis. No significant disk bulge or protrusion. Mild bilateral | | | neural foraminal narrowing. L5-S1: Severe right and | | | moderate left facet arthrosis. No significant disk bulge or | | | protrusion. Mild neural foraminal narrowing bilaterally. | | | The visible paravertebral soft tissues show a T2 hyperintensity in | | | the upper right kidney. There is prominence of the left renal | | | pelvis. IMPRESSION: 1. MODERATE AND SEVERE FACET | | | ARTHROSIS AT L4-5 AND L5-S1. 2. NO SIGNIFICANT NARROWING OF | | | THE CENTRAL SPINAL CANAL. 3. MILD TO MODERATE NEURAL | | | FORAMINAL NARROWING ON THE LEFT AT L3-4. LESSER DEGREES ARE SEEN AT | | | ABOVE AND BELOW LEVELS, DESCRIBED ABOVE. Dictated | | | Date/Time: 02/22/2013 15:17 Transcribed Date/Time: 02/22/2013 | | | 18:05 Electronics Technician Apprentice: <<Signature on | | | File>> | | | Yared | | | Monica Diaz [id number] <Electronically signed by Yared Anderson | | | Joe ARIAS> Yared Diaz MD 02/22/13 [id number] | | | Electronics Technician Apprentice: Econotherm [id number]/20/13 4223 | | | Karlos Craig Jr, MD | | + + + + + + + + | Performing | Address | City/State/Zipcode | Phone Number | | Organization | | | | + + + + + | [facility] | [address] | [place] | [phone] | | [facility] | | [address] | | | - IMAGING | | | | + + + + + documented in this encounter Visit Diagnoses + + | Diagnosis | + + | Lumbar spinal stenosis - Primary Spinal stenosis, lumbar region, without neurogenic | | claudication | + + | Facet arthritis of lumbar region Lumbosacral spondylosis without myelopathy | + + | Lumbalgia Lumbago | + + | Claustrophobia Other isolated or specific phobias | + + documented in this encounter
--- OUTSIDE RECORDS SUMMARY | ~2019-08-31 | XMS | Encounter Summary ---
Demographics + + + | Address | [address] | | | [place] [address] | + + + | Home Phone | | + + + | Preferred Language | Unknown | + + + | Marital Status | | + + + | Cheondoism Affiliation | 1061 | + + + | Race | Unknown | + + + | Ethnic Group | Unknown | + + + Author + + + | Author | [facility] | | | and [place] | + + + | Organization | [facility] | | | and [place] | + + + | Address | Unknown | + + + | Phone | Unavailable | + + + Support + + + + + | Name | Relationship | Address | Phone | + + + + + | Palak Aguilar | ECON | [address] | | | | | [address] | | + + + + + | Tanika Jean | ECON | Unknown | | + + + + + Care Team Providers + +------+ + | Care Cruller Maker Machine Name | Role | Phone | [...] RN | obstructive | | | | [place], | | pulmonary disease) | | | | [place] [address] | | ([facility]) (Primary Dx) | | | | [phone] | | | +--------+ + + + [...] 11/16/ | Appointment | Radiology | Alfonso Wlalace MD | | | 2020 | | | [address] | | | | | | [place] | | | | | | [address] | | | | | | | | +--------+ + + + + documented as of this encounter Visit Diagnoses + + | Diagnosis | + + | COPD (chronic obstructive pulmonary disease) (HCC) - Primary Chronic airway | | obstruction, not elsewhere classified | + + documented in this encounter"
--- OUTSIDE RECORDS SUMMARY | ~2019-08-31 | XMS | Encounter Summary ---
Demographics + + + | Address | [address] | | | [place] [address] | + + + | Home Phone [...] + | Author | [facility] | | | and [place] | + + + | Organization | [facility] | | | and [place] | + + + | Address | Unknown | + + + | Phone | Unavailable | + + + Support + + + + + | Name | Relationship | Address | Phone | + + + + + | Palak Aguilar | ECON | [address] | | | | | [address] | | + + + + + | Tanika Jean | ECON | Unknown | | + + + + + Care Team Providers + +------+ + | Care Spectroscopist Name | Role | Phone | + [...] Description | +--------+--------+ + + + | 08/22/ | Refill | [facility] [place] | [place], | Medication Refill | | 2013 | | PULMONARY [address] | Ling Frazier MD | | | | | [place], | | | | | | [place] [address] | | | | | | [phone] | | | +--------+--------+ + + + [...] | | | | [place] [facility] | | | | | | [id number] | | | | | | | | +--------+ + + + + documented as of this encounter Visit Diagnoses + + | Diagnosis | + + | COPD (chronic obstructive pulmonary disease) (HCC) - Primary Chronic airway | | obstruction, not elsewhere classified | + + documented in this encounter"
--- OUTSIDE RECORDS SUMMARY | ~2019-08-31 | XMS | Encounter Summary ---
Demographics + + + | Address | [address] | | | [place] [address] | + + + | Home Phone | | + + + | Preferred Language | Unknown | + + + | Marital Status | | + + + | Sabianist Affiliation | 1061 | + + + | Race | Unknown | + + + | Ethnic Group | Unknown | + + + Author + + + | Author | [facility] | | | and [place] | + + + | Organization | [facility] | | | and [place] | + + + | Address | Unknown | + + + | Phone | Unavailable | + + + Support + + + + + | Name | Relationship | Address | Phone | + + + + + | Palak Trejo Jeff | ECON | [address] | | | | | [address] | | + + + + + | Tanika Jean | ECON | Unknown | | + + + + + Care Team Providers + +------+ + | Care Backwinder Name | Role | Phone | + [...] [phone] | | | | | | [place], [place] | | | | | | [address] | | | | | | [phone] | | | +--------+ + + + [...] [place] | | | | | | [phone] | | | | | | | | +--------+ + + + + documented as of this encounter Visit Diagnoses Not on filedocumented in this encounter
--- OUTSIDE RECORDS SUMMARY | ~2019-08-31 | XMS | Encounter Summary ---
Demographics + + + | Address | [address] | | | [place] [address] | + + + | Home Phone | | + + + | Preferred Language | Unknown | + + + | Marital Status | | + + + | Jewish Affiliation | 1061 | + + + | Race | Unknown | + + + | Ethnic Group | Unknown | + + + Author + + + | Author | [facility] | | | and [place] | + + + | Organization | [facility] | | | and [place] | + + + | Address | Unknown | + + + | Phone | Unavailable | + + + Support + + + + + | Name | Relationship | Address | Phone | + + + + + | Palak Aguilar | ECON | [address] | | | | | [address] | | + + + + + | Tanika Jean | ECON | Unknown | | + + + + + Care Team Providers + +------+ + | Care Child Care Supervisor Name | Role | Phone | [...] Description | +--------+---------+ + + + | 09/15/ | Office | [facility] | [place], | Chronic obstructive | | 2016 | Visit | PULMONARY [address] | Ling Frazier MD | pulmonary disease, | | | | [place], | | unspecified COPD | | | | [place] [address] | | type ([facility]) (Primary | | | | [phone] | | Dx); Allergic | | | | | | rhinitis, | | | | | | unspecified allergic | | | | | | rhinitis type; | | | | | | Nocturnal hypoxemia | | | | | | due to emphysema | | | | | | ([facility]); Tobacco abuse | +--------+---------+ + + + [...] Counseling Given: Yes | | Comments: currently 1ppd | + + [...] + + + | Blood Pressure | 120/64 | 09/16/2015 2:34 PM | | | | | PDT | | + + + + + | Pulse | 80 | 09/16/2015 2:34 PM | | | | | PDT | | + + + + + | Temperature | - | - | | + + + + + | Respiratory Rate | - | - | | + + + + + | Oxygen Saturation | 95% | 09/16/2015 2:34 PM | | | | | PDT | | + + + + + | Inhaled Oxygen | - | - | | | Concentration | | | | + + + + + | Weight | 100.1 kg (220 lb | 09/16/2015 2:34 PM | | | | 11.2 oz) | PDT | | + + + + + | Height | 175.3 cm (5' 9") | 09/16/2015 2:34 PM | | | | | PDT | | + + + + + | Body Mass Index | 32.59 | 09/16/2015 2:34 PM | | | | | PDT | | + + + + + documented in this encounter Patient Instructions Patient Instructions Ling Lowe MD - 09/16/2015 3:30 PM PDTYou need to be quit ting smoking. We will set you up to see the doctor coming from [facility] to [place]. No medication changes. 3:3 1 PM PDT documented in this encounter Progress Notes Ling Lowe MD - 09/16/2015 2:39 PM PDTFormatting of this note might be differe nt from the original. Pulmonary Follow Up HPI Nazario Gipsonock . is a 65 y.o. male [facility]. At their last visit, we had changed his lisinopril to losartan. He seems to think his cough has gotten better with changing his blood pressure medication. Since their last visit he fe els like he has been doing better. He has not had any hospitalizations, or illnesses in the last couple of months. He is currently on a regimen of Advair 500 mcg 1 inhalation twice daily, Incruse 1 inhalati on daily and Daliresp 500 mcg once daily. Currently he is using his rescue inhaler, albutero l, 2-3 times a day. He is using his nebulizer, albuterol, 3 times a day. He returns today fo routine follow up. Currently he is able to walk 1 block at his own pace on level ground. He is not exercising regularly. He is getting out and gardening and walking in the yard. He usually uses an [employer] cart at [facility] when he can. He does cough some of the time, but not all of the time. He is bringing up mucous, which is clear in color. He has been evaluated for nocturnal oxygen and does use it. He is currently on [address] [facility]. He reports good compliance. Past Medical History [...] Cigarettes Smokeless tobacco: Never Used Comment: currently 1ppd Alcohol Use: No Drug Use: No Sexual Activity: Not on file Other Topics Concern None Social History Narrative No known toxic chemical exposures. No known asbestos exposure. No known TB exposure. Has d ogs and cat in home. Allergies: Allergies Allergen Reactions Levofloxacin Varenicline Tartrate Chantix Medications: Outpatient Encounter Prescriptions as of 09/16/2015 Medication Sig Dispense Refill acetaminophen (TYLENOL) 650 MG CR tablet Take 650 mg by mouth every 8 hours as needed f or Pain. ADVAIR DISKUS 500-50 MCG/DOSE diskus inhaler INHALE ONE DOSE BY MOUTH TWICE DAILY. RINS E MOUTH AFTER USE. 60 each 5 albuterol 2.5 mg/3 mL nebulizer solution Take 3 mLs by nebulization every 6 hours as ne eded for Wheezing or Shortness of Breath. Dx: J44.9 RINA: 99 months 360 vial 11 [DISCONTINUED] albuterol 90 mcg/puff inhaler Inhale 2 puffs into the lungs every 6 hour s as needed for Wheezing or Shortness of Breath. (Patient taking differently: Inhale 2 puffs into the lungs every 6 hours as needed for Wheezing or Shortness of Breath (VENTOLIN BRAND) .) 1 Inhaler 11 aspirin 325 mg tablet Take 325 mg by mouth Daily. atorvaSTATin (LIPITOR) 80 MG tablet Take 80 mg by mouth nightly. carBAMazepine (EPITOL) 200 mg tablet Take 200 mg by mouth 4 times daily. Cyanocobalamin (B-12) 1000 MCG CAPS Take 1,000 mcg by mouth Daily. fluticasone (FLONASE) 50 mcg/nasal spray 1 spray by Nasal route Daily. 16 g 11 guaiFENesin (MUCINEX) 600 mg 12 hr tablet Take 1,200 mg by mouth 2 times daily. losartan (COZAAR) 25 mg tablet Take 1 tablet by mouth Daily. 30 tablet 0 metFORMIN (GLUCOPHAGE) 500 mg tablet Take 500 mg by mouth 2 times daily. nicotine (NICOTROL) 10 mg inhaler Inhale 1 cartridge into the lungs as needed for Smoki ng cessation. oxygen Inhale 3 L into the lungs nightly. roflumilast (DALIRESP) 500 mcg tablet TAKE ONE TABLET BY MOUTH ONCE DAILY 30 tablet 11 rOPINIrole (REQUIP) 1 mg tablet TAKE ONE TABLET BY MOUTH ONCE DAILY AT BEDTIME 30 table t 3 Sennosides-Docusate Sodium (SENNA S PO) Take 2 tablets by mouth Daily. umeclidinium (INCRUSE ELLIPTA) 62.5 mcg/puff inhaler Inhale 1 puff into the lungs Daily . 1 Inhaler 11 VENTOLIN HFA 108 (90 BASE) MCG/ACT inhaler Inhale 2 puffs into the lungs every 6 hours as needed for Wheezing. No facility-administered encounter medications on file as of 09/16/2015. Review of Systems: General: []Weight loss/gain (over 10 lbs) []Fever/chills/sweats []Night sweats EENT: []Hearing loss []Vision loss/change []Sinus congestion/nasal drainage []Nosebleeds [ ]Hoarseness Cardiac: []Chest pain []Palpitations/heart racing []Swelling of legs/ankles []Waking up at night s hort of breath []Difficulty sleeping flat Gastrointestinal: []Nausea/vomiting []Difficulty swallowing []Heartburn/acid reflux []Loss of appetite []Ab dominal pain Urologic: []Blood in urine []Frequent urination at night []Burning/painful urination []Difficulty wit h urination [x] Patient denies all of the above Objective BP 120/64 mmHg | Pulse 80 | Ht 1.753 m (5' 9") | Wt 100.109 kg (220 lb 11.2 oz) | BMI 32.58 kg/m2 | SpO2 95% RA General Appearance: [...] bilaterally with prolongatio n of the expiratory phase and a few wheezes, no crackles or rhonchi Chest Wall: No deformity Heart: Regular rate and rhythm, no murmur, rub or gallop Abdomen: Soft, non-tender, non-distended, mildly obese Extremities: No cyanosis, clubbing, trace lower extremity edema Pulses: Radial pulses 2+ and symmetric [...] Chronic obstructive pulmonary disease, unspecified COPD type ([facility]) J44.9 496 He has been more stable after a prolonged illness with recurrent hospitalization and need for medicatio n several months ago. We resumed his Advair, and he has done better. His biggest issue is that despite medication assistance, he continues to smoke heavily, and while he acknowledges it is an issue, he seems to not make much effort towards quitting. Cough seems better on losartan. 2. Allergic rhinitis, unspecified allergic rhinitis type J30.9 477.9 On fluticasone spray w ith good control. 3. 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 No longer requir ing portable oxygen. G47.36 327.26 4. Tobacco abuse Z72.0 305.1 Ongoing. He has the nicotrol inhaler to use as needed. He uses this, but has not seemed to cut back on his smoking much, or be very committed to doing so. No amount of medication is going to make the commitment for him. Plan 1.Continue Advair 500 mcg 1 inhalation twice daily. 3.Continue Incruse 1 inhalation daily. 4. Continue oxygen at night at 3L. 5. Continue Nicotrol inhaler, but he needs to make a more firm commitment to quitting smoki ng. He was advised to call if new pulmonary symptoms were to develop. Return to clinic in 4 months, or sooner with concerns. CC: Jose Angel Reina MD Portions of this report were transcribed using voice recognition software. Every effort wa s made to ensure accuracy; however, inadvertent computerized dean of chapel errors may be pre sent. documented in [...] type (HCC) - Primary | + + | Allergic rhinitis, unspecified allergic rhinitis type | + + | Nocturnal hypoxemia due to emphysema (HCC) Other emphysema | + + | Tobacco abuse Tobacco use disorder | + + documented in this encounter
--- OUTSIDE RECORDS SUMMARY | ~2019-08-31 | XMS | Encounter Summary ---
Demographics + + + | Address | [address] | | | [place] [address] | + + + | Home Phone | | + + + | Preferred Language | Unknown | + + + | Marital Status | | + + + | Restorationism Affiliation | 1061 | + + + | Race | Unknown | + + + | Ethnic Group | Unknown | + + + Author + + + | Author | [facility] | | | and [place] | + + + | Organization | [facility] | | | and [place] | + + + | Address | Unknown | + + + | Phone | Unavailable | + + + Support + + + + + | Name | Relationship | Address | Phone | + + + + + | Palak Aguilar | ECON | [address] | | | | | [address] | | + + + + + | Tanika Jean | ECON | Unknown | | + + + + + Care Team Providers + +------+ + | Care Deep Fryer Assembler Name | Role | Phone | [...] | | | | | [facility] | [place] [address] | | | | | [place] [address] | | | | | | [phone] | | | +--------+ + + + [...] | | | | | [facility] [place] [facility] [place] | | | | | | [address] | | | | | | | [...] for comparison only - no result from [place]. | [facility] | + + + + +---------+ + + | Performing | Address | City/State/Zipcode | Phone Number | | Organization | | | | + +---------+ + + | [facility] | | | | + +---------+ + + documented in this encounter Visit Diagnoses Not on filedocumented in this encounter"
--- OUTSIDE RECORDS SUMMARY | ~2019-08-31 | XMS | Encounter Summary ---
Demographics + + + | Address | [address] | | | [place] [address] | + + + | Home Phone [...] [address] | | | | | [address] | | + + + + + | Tanika Jean | ECON | Unknown | | + + + + + Care Team Providers + +------+ + | Care Basketball Coach Name | Role | Phone | + [...] + + | 09/27/ | Office | [facility] [place] | [place], | COPD (chronic | | 2013 | Visit | [address]ULMONARY [address] | Ling Frazier MD | obstructive | | | | [place], | | pulmonary disease) | | | | [place] [address] | | (Primary Dx); | | | | [phone] | | Nocturnal hypoxemia | | | [...] want to do the lab tests that [facility] recommended, let me know, and I will figure out h ow to do it. 1-708-NYBG-NOW is a free service to help you [...] The quit line is available in both Yakut and Greek with translation and TTY services. It is open 7 days a week. 24 hours a day except the October, , and . They can t ell you if you qualify for free patches and gum. I might also consider calling [facility] and see if they offer smoking cessation [...] He is currently on 3 LPM at [facility]. He reports good compliance. Past Medical [...] Breath. Dx: 496 RINA: 99 months [employer] [place] 360 vial 4 aspirin 325 mg tablet [...] that he look in to classes at [facility]. He wanted to know if patches or [...] - He inquired about the testing that [facility] wanted, so I looked in the [facility] system, got their notes and [...] to inquire about smoking cessation classes at [facility]. 4. We will inquire about cost of testing: complete ataxia panel from [facility] or equivalent fragile X premutation (FMR1) lipid [...] made to ensure accuracy; however, inadvertent computerized band sawmill operator errors may be pre sent. Electronically signed [...] [place] | | | | | | [address] | | | | | | | [...]
--- OUTSIDE RECORDS SUMMARY | ~2019-08-31 | XMS | Encounter Summary ---
Demographics + + + | Address | [address] | | | [place] [address] | + + + | Home Phone | | + + + | Preferred Language | Unknown | + + + | Marital Status | Single | + + + | Yarsanism Affiliation | Unknown | + + + | Race | Unknown | + + + | Ethnic Group | Other Race | + + + Author + + + | Author | [facility] | + + + | Organization | [facility] | + + + | Address | Unknown | + + + | Phone | Unavailable | + + + Care Team Providers + +------+ + | Care Customer Retention Specialist Name | Role | Phone | [...] at | | | | | | [facility] | | | | | | and Healing [address] | | | | | | Arce Krystyna Mailcode: | | | | | | [facility] | | | | | | [facility] and Healing, | | | | | | Building | | | | | | Floor [place], [place] | | | | | | [address] | | | | | | [phone] | | | +--------+ + + + [...]
--- OUTSIDE RECORDS SUMMARY | ~2019-08-31 | XMS | Encounter Summary ---
Demographics + + + | Address | [address] | | | [place] [address] | + + + | Home Phone | | + + + | Preferred Language | Unknown | + + + | Marital Status | | + + + | Zoroastrianism Affiliation | 1061 | + + + | Race | Unknown | + + + | Ethnic Group | Unknown | + + + Author + + + | Author | [facility] | | | and [place] | + + + | Organization | [facility] | | | and [place] | + + + | Address | Unknown | + + + | Phone | Unavailable | + + + Support + + + + + | Name | Relationship | Address | Phone | + + + + + | Palak Aguilar | ECON | [id number] | | | | | [address] | | + + + + + | Tanika Jean | ECON | Unknown | | + + + + + Care Team Providers + +------+ + | Care Music Grapher Name | Role | Phone | + [...] + + | 09/24/ | Office | [facility] | [place], | COPD (chronic | | 2014 | Visit | PULMONARY [address] | Ling Frazier MD | obstructive | | | | [place], | | pulmonary disease) | | | | [place] [address] | | ([facility]) (Primary Dx); | | | | [phone] | | Nocturnal hypoxemia | | | | | | due to emphysema | | | | | | ([facility]); Allergic | | | | | [...] an overnight oxy gen test through [facility]. Call the [employer] [facility] before you pick it up to make sure they have a box available. You will meat pickler a box at the [employer]. Do the t est on 3L. Wear [...] Dr. Cyril tomlinson on October 10 at [facility]. He has not had any acute illnesses. He did have difficulties getting his medications refilled, as they were being refilled [facility] with no refills. He is currently on [...] pace on level ground. He walks at [facility] and walks around his yard. He is not exercising regularly. He does tend to lean on the shopping cart when he walks at [facility] and in fact someone commented on this. He does cough chronically, occasionally at night. He rarely brings up phlegm. He has been evaluated for nocturnal oxygen and does use it. He is currently on 3 L[facility] at [facility]. He reports good compliance. He has had [...] tablet Take 81 mg by mouth Daily. irehpgg-kpioaxrssenhn-xlzuqblb (HEADACHE RELIEF) 250-250-65 MG per tablet Take [...] ICD-9-CM 1. COPD (chronic obstructive pulmonary disease) ([facility]) 496 Doing better despite severe disea se. He is no longer having frequent exacerbations. He has also lost about 20 pounds, likely on the Daliresp. We will continue current medications, 1 year refills sent on most prescriptions. roflumilast (DALIRESP) 500 mcg tablet tiotropium (SPIRIVA HANDIHALER) 18 mcg inhalation capsule 2. Nocturnal hypoxemia due to emphysema ([facility]) 492.8 On oxygen at 3L. Due for [...] made to ensure accuracy; however, inadvertent computerized well logging captain mud analysis errors may be pre sent. documented in [...] [place] | | | | | | [address] | | | | | | | [...]
--- OUTSIDE RECORDS SUMMARY | ~2019-08-31 | XMS | Encounter Summary ---
Demographics + + + | Address | [address] | | | [place] [address] | + + + | Home Phone | | + + + | Preferred Language | Unknown | + + + | Marital Status | | + + + | Methodist Affiliation | 1061 | + + + | Race | Unknown | + + + | Ethnic Group | Unknown | + + + Author + + + | Author | [facility] | | | and [place] | + + + | Organization | [facility] | | | and [place] | + + + | Address | Unknown | + + + | Phone | Unavailable | + + + Support + + + + + | Name | Relationship | Address | Phone | + + + + + | Palak Gipsonock | ECON | [id number] | | | | | [address] | | + + + + + | Tanika Jean | ECON | Unknown | | + + + + + Care Team Providers + +------+ + | Care Certified Forklift Operator Name | Role | Phone | [...] | | | | | | [place] [address] | | | | | | [phone] | | | +--------+--------+ + + + [...] | | | | | [place] | | | | | | [address] | | | | | | | [...]
--- OUTSIDE RECORDS SUMMARY | ~2019-08-31 | XMS | Encounter Summary ---
Demographics + + + | Address | [address] | | | [place] [address] | + + + | Home Phone [...] + + + | Author | [facility] | | | and [place] | + + + | Organization | [facility] | | | and [place] | + + + | Address | Unknown | + + + | Phone | Unavailable | + + + Support + + + + + | Name | Relationship | Address | Phone | + + + + + | Palak Aguilar | ECON | [address] | | | | | [address] | | + + + + + | Tanika Jean | ECON | Unknown | | + + + + + Care Team Providers + +------+ + | Care Fancy Needleworker Name | Role | Phone | + [...] + + | 05/29/ | Telephone | [facility] | Chrissy, | Appointment | | 2016 | | MED CTR PULMONARY | Ling Frazier MD | | | | | FUNCTION [address] | | | | | | [place], | | | | | | [place] [address] | | | | | | [phone] | | | +--------+ + + + [...] [place] | | | | | | [address] | | | | | | | | +--------+ + + + + documented as of this encounter Visit Diagnoses Not on filedocumented in this encounter"
--- OUTSIDE RECORDS SUMMARY | ~2019-08-31 | XMS | Encounter Summary ---
Demographics + + + | Address | [address] | | | [place] [address] | + + + | Home Phone [...] + | Palak Aguilar | ECON | [id number] | | | | | [address] | | + + + + + | Tanika Jean | ECON | Unknown | | + + + + + Care Team Providers + +------+ + | Care Auto Suspension And Steering Mechanic Name | Role | Phone | [...] | | | hazards to | | [address] Phone: | | | | | health | | [phone] | | | | | Centrilobula | | Fax: | | | | | r emphysema | | [phone] | | | | | (FORMERLY [facility]) | | | | | | | Procedures | | | | | | | BRONCHOSCOPY | | | | | | | | | | | | | | ELECTROMAGNE | | | | | | | TIC | | | | | | | NAVIGATION | | | | | | | [[phone]] | | | +--------+--------+ + + + + Encounter Details +--------+ + + + + | Date | Type | Department | Care Team | Description | +--------+ + + + + | 08/14/ | Anesthesia | [facility] | Hugo Yeung | | | 2019 | Event | [facility] | YuriSIAIAS [address] | | | | | [address] | | | | | [address] [place], [place] | [place], [place] | | | | | [address] | [address] | | | | | [phone] | [phone] | | | | | | | | | | | | Rob Castillo MD | | | | | | [address] | | | | | | [place] [address] | | | | | | [phone] | | | | | | | | +--------+ + + + + Anesthesia Record + + + + + | Procedure Name | Responsible | Anesthesia Start | Anesthesia Stop Time | | | Anesthesiologist | Time | | + + + + + | BRONCHOSCOPY | Hugo Yuri | 08/15/19 08 | 08/15/19 0902 | | ELECTROMAGNETIC | ISAIAS Yeung | | | | NAVIGATION | | | | | (Bilateral Bronchus) | | | | + + + + + +----+---+ + + | Da | T | Event | Comment | | te | i | | | | | m | | | | | e | | | +----+---+ + + | 05 | 0 | | | | /1 | 7 | | | | 2/ | 2 | | | | 20 | 9 | | | | 20 | | | | +----+---+ + + | | 0 | An Start | Reassessment prior to anesthesia induction/procedure. | | | 8 | | | | | 0 | | | | | 5 | | | +----+---+ + + | | 0 | An | | | | 8 | Induction | | | | 0 | | | | | 8 | | | +----+---+ + + | | 0 | An | | | | 8 | Intubation | | | | 0 | | | | | 8 | | | +----+---+ + + | | 0 | First | | | | 8 | Inc/Proc St | | | | 0 | | | | | 8 | | | +----+---+ + + | | 0 | Anesthesia | | | | 8 | Ready | | | | 1 | | | | | 1 | | | +----+---+ + + | | 0 | an tanesha now | | | | 8 | | | | | 4 | | | | | 1 | | | +----+---+ + + | | 0 | Extubation/ | | | | 8 | Airway LDA | | | | 4 | Removal | | | | 3 | | | +----+---+ + + | | 0 | an stop | | | | 9 | data | | | | 0 | | | | | 2 | | | +----+---+ + + | | 0 | An Stop | Patient handed off to recovery nurse. | | | 0 | | | | | 2 | | | +----+---+ + + +------+ | Meds | +------+ + +---------+ | Name | Total | + +---------+ | lidocaine 2% | 100 mg | + +---------+ | propofol | 100 mg | + +---------+ | rocuronium | 40 mg | + +---------+ | succinylcholine | 100 mg | + +---------+ | dexamethasone | 4 mg | + +---------+ | ondansetron | 4 mg | + +---------+ | phenylephrine | 200 mcg | + +---------+ | sodium chloride 0.9% (NS) | 700 mL | | infusion | | + +---------+ + + | Name | + + | N2O Flow Rate (L/Min) | + + | O2 Flow Rate (L/Min) | + + | Insp O2 | + + | Exp N2O | + + | Exp SEV | + + | Air Flow Rate (L/Min) | + + + + | No blood administrations on file. | + + +--------+ + + + | Type | Details | Placement | Removal | +--------+ + + + | Periph | 08/15/19; 0648; Right; Wrist; | 08/15/19 0648 by | 08/15/19 1037 by | | eral | [id number] catheter system; | Venice Dunn RN | Ana Luisa Blackman RN | | IV | 20 gauge; 08/15/19; 1037 | | | +--------+ + + + | Airway | Placement Date: 08/15/19; | 08/15/19 0808 by | 08/15/19 0843 by | | | Placement Time: 0808 (created via | Hugo Welch | Hugo Welch | | | procedure documentation); Mask | ISAIAS Yeung | ISAIAS Yeung | | | Ventilation: EZ; Airway Grade: | | | | | 2a; Successful Technique: Mac; | | | | | Laryngoscope Blade Size: 3; | | | | | Attempts: 1; Airway Type: | | | | | endotracheal; Size: 8.5; Airway | | | | | Tube Secured At: 21; Trauma: | | | | | none; Other Equipment: stylette; | | | | | Placement Check: exhaled CO2 | | | | | detection device, bilateral chest | | | | | rise; Removal Date: 08/15/19; | | | | | Removal Time: 0843 | | | +--------+ + + + documented in this encounter Social History + + + +--------+ + [...] | | | | | [address] [place] | | | | | | [address] | | | | | | | | +--------+ + + + + documented as of this encounter Procedures + +--------+ + + + | Procedure Name | Priori | Date/Time | Associated Diagnosis | Comments | | | ty | | | | + +--------+ + + + | ANE AIRWAY NOTE | Routin | 08/15/2019 | | Results for this | | | e | 8:14 AM | | procedure are in the | | | | PDT | | results section. | + +--------+ + + + documented in this encounter Results Airway (08/15/2019 8:14 AM PDT) + + + | Narrative | Performed At | + + + | Hugo Yeung CRNA 08/15/2019 8:15 AM Anesthesia | | | Airway Placement 08/15/2019 8:08 AM Preprocedure check: patient | | | identified, oxygen, airway assessed, patient reassessment prior to | | | induction, airway equipment checked and suction Mask ventilation: | | | easy Successful technique: Mac Laryngoscope blade size: 3 | | | Airway grade: 2a (Partial view of glottis) Other equipment: stylette | | | Attempts: 1 Airway type: endotracheal Size: 8.5 Cuffed: cuffed | | | Route, reference point: center of mouth Tube depth: 21 cm Tube | | | secured with: adhesive tape Trauma: none Tube placement | | | verification: bilateral chest rise and carbon dioxide detection | | | Performing provider: Hugo Yeung CRNA Authorizing | | | provider: Hugo Yeung CRNA Please see | | | intraoperative grid for any additional medication documentation. | | + + + documented in this encounter Visit Diagnoses Not on filedocumented in this encounter Administered Medications + +--------+ +------+------+------+ | Medication Order | MAR | Action | Dose | Rate | Site | | | Action | Date | | | | + +--------+ +------+------+------+ | dexamethasone (DECADRON) 4 | Given | 08/15/19 | 4 mg | | | | mg/mL injection Intravenous, | | 20 8:12 | | | | | PRN, Starting 08/15/19 at | | AM PDT | | | | | 0812, Anesthesia Intra-op | | | | | | + +--------+ +------+------+------+ +---+---+ | | | +---+---+ + +-------+ +--------+---+---+ | lidocaine (PF) 2% injection | Given | 08/15/19 | 100 mg | | | | Intravenous, PRN, Starting Tue | | 20 8:08 | | | | | 08/15/19 at 0808, Anesthesia | | AM PDT | | | | | Intra-op | | | | | | + +-------+ +--------+---+---+ +---+---+ | | | +---+---+ + +-------+ +------+---+---+ | ondansetron (ZOFRAN) injection | Given | 08/15/19 | 4 mg | | | | Intravenous, PRN, Starting Tue | | 20 8:12 | | | | | 08/15/19 at 0812, Anesthesia | | AM PDT | | | | | Intra-op | | | | | | + +-------+ +------+---+---+ +---+---+ | | | +---+---+ + +-------+ +---------+---+---+ | phenylephrine (ARIC-SYNEPHRINE, | Given | 08/15/19 | 200 mcg | | | | VAZCULEP) 10 mg per mL injection | | 20 8:13 | | | | | Intravenous, PRN, Starting Tue | | AM PDT | | | | | 08/15/19 at 0813, Anesthesia | | | | | | | Intra-op | | | | | | + +-------+ +---------+---+---+ +---+---+ | | | +---+---+ + +-------+ +--------+---+---+ | propofol (DIPRIVAN) injection | Given | 08/15/19 | 100 mg | | | | Intravenous, PRN, Starting Tue | | 20 8:08 | | | | | 08/15/19 at 0808, Anesthesia | | AM PDT | | | | | Intra-op | | | | | | + +-------+ +--------+---+---+ +---+---+ | | | +---+---+ + +-------+ +-------+---+---+ | rocuronium (ZEMURON) injection | Given | 08/15/19 | 10 mg | | | | Intravenous, PRN, Starting Tue | | 20 8:26 | | | | | 08/15/19 at 0812, Anesthesia | | AM PDT | | | | | Intra-op | | | | | | + +-------+ +-------+---+---+ +-------+ +-------+---+---+ | Given | 08/15/19 | 30 mg | | | | | 20 8:12 | | | | | | AM PDT | | | | +-------+ +-------+---+---+ +---+---+ | | | +---+---+ + + + +---+---+---+ | sodium chloride [...] +---+ +---+ +---+---+ | | | +---+---+ + +-------+ +--------+---+---+ | succinylcholine (ANECTINE) | Given | 08/15/19 | 100 mg | | | | injection Intravenous, PRN, | | 20 8:08 | | | | | Starting 08/15/19 at 0808, | | AM PDT | | | | | Anesthesia Intra-op | | | | | | + +-------+ +--------+---+---+ +---+---+ | | | +---+---+ documented in this encounter"
--- OUTSIDE RECORDS SUMMARY | ~2019-08-31 | XMS | Encounter Summary ---
Demographics + + + | Address | [address] | | | [place] [address] | + + + | Home Phone | | + + + | Preferred Language | Unknown | + + + | Marital Status | | + + + | Bahai Affiliation | 1061 | + + + | Race | Unknown | + + + | Ethnic Group | Unknown | + + + Author + + + | Author | [facility] | | | and [place] | + + + | Organization | [facility] | | | and [place] | + + + | Address | Unknown | + + + | Phone | Unavailable | + + + Support + + + + + | Name | Relationship | Address | Phone | + + + + + | Palak Aguilar | ECON | [id number] | | | | | [address] | | + + + + + | Tanika Jean | ECON | Unknown | | + + + + + Care Team Providers + +------+ + | Care Assistant Hairstylist Name | Role | Phone | + [...] Frazier MD | | | | | [place], | | | | | | [place] [address] | | | | | | [phone] | | | +--------+--------+ + + + [...] [place] | | | | | | [address] | | | | | | | | +--------+ + + + + documented as of this encounter Visit Diagnoses Not on filedocumented in this encounter"
--- OUTSIDE RECORDS SUMMARY | ~2019-08-31 | XMS | Encounter Summary ---
Demographics + + + | Address | [address] | | | [place] [address] | + + + | Home Phone | | + + + | Preferred Language | Unknown | + + + | Marital Status | | + + + | Yarsani Affiliation | 1061 | + + + | Race | Unknown | + + + | Ethnic Group | Unknown | + + + Author + + + | Author | [facility] | | | and [place] | + + + | Organization | [facility] | | | and [place] | + + + | Address | Unknown | + + + | Phone | Unavailable | + + + Support + + + + + | Name | Relationship | Address | Phone | + + + + + | Palak Aguilar | ECON | [id number] | | | | | [address] | | + + + + + | Tanika Jean | ECON | Unknown | | + + + + + Care Team Providers + +------+ + | Care Broadcast Designer Name | Role | Phone | + +------+ + | No, Physician | PCP | Unavailable | + +------+ + Reason for Visit +---------+ + | Reason | Comments | +---------+ + | Results | | +---------+ + Encounter Details +--------+ + + + + | Date | Type | Department | Care Team | Description | +--------+ + + + + | 08/23/ | Telephone | [facility] | Alfonso Wallace MD | Results | | 2020 | | PULMONOLOGY [address] | | | | | [address] | [place], [place] | | | | | [place], [place] | [address] | | | | | [address] | | | | | | [phone] | | | +--------+ + + + [...]
--- OUTSIDE RECORDS SUMMARY | ~2019-08-31 | XMS | Encounter Summary ---
Demographics + + + | Address | [address] | | | [place] [address] | + + + | Home Phone | | + + + | Preferred Language | Unknown | + + + | Marital Status | | + + + | Faith Affiliation | 1061 | + + + [...] [address] | | | | | [address] | | + + + + + | Tanika Jean | ECON | Unknown | | + + + + + Care Team Providers + +------+ + | Care Draw Off Worker Name | Role | Phone | + +------+ + | Jose Angel Reina MD | PCP | | + +------+ + Reason for Visit + + + | Reason | Comments | + + + | Back Pain | | + + + | Neck Pain | | + + + Encounter Details +--------+---------+ + + + | Date | Type | Department | Care Team | Description | +--------+---------+ + + + | 07/06/ | Office | [facility] | Karlos Craig, | Neck pain on right | | 2013 | Visit | MEDICINE | [address] | side (Primary Dx); | | | | REH[address] [place] | Cervical strain, | | | | [address] | [id number] | initial encounter; | | | | [place] | | Lumbar facet | | | | [address] | | arthropathy; | | | | [phone] | | Lumbalgia; Ataxia | +--------+---------+ + + + Social [...] + + + | Blood Pressure | 122/76 | 07/06/2013 1:05 PM | | | | | PDT | | + + + + + | Pulse | 75 | 07/06/2013 1:05 PM | | | | | PDT | | + + + + + | Temperature | - | - | | + + + + + | Respiratory Rate | 20 | 07/06/2013 1:05 PM | | | | | PDT | | + + + + + | Oxygen Saturation | - | - | | + + + + + | Inhaled Oxygen | - | - | | | Concentration | | | | + + + + + | Weight | 104.3 kg (230 lb) | 07/06/2013 1:05 PM | | | | | PDT | | + + + + + | Height | 175.3 cm (5' 9") | 07/06/2013 1:05 PM | | | | | PDT | | + + + + + | Body Mass Index | 33.97 | 07/06/2013 1:05 PM | | | | | PDT | | + + + + + documented in this encounter Patient Instructions Patient Instructions Karlos Craig MD - 07/06/2013 1:46 PM PDTContinue the exercises as outlined by physical therapy for your back, indefinitely. If back pain returns return to t clinic earlier, we may consider repeating facet injections in the future. Take muscle relaxant for your right neck pain for the next 10 days. If your neck pain pers ists, return to the clinic earlier. Follow up with [facility] regarding your ataxia. If your right shoulder pain gets worse, return to the clinic. Return to the clinic in 3 months, unless symptoms fail to improve or get worse.Electronical ly signed by Karlos Craig MD at 07/06/2013 1:55 PM PDT documented in this encounter Progress Notes Karlos Craig MD - 07/06/2013 1:55 PM PDTThis office note has been dictated. Job ID# [id number] signed by Karlos Craig MD at 07/06/2013 2:17 PM Arleen Ashby RN - 07/06/2013 1:07 PM PDTPatient states 5/10 pain to neck. Karlos Garcia MD - 07/06/2013 12:00 AM PDT PHYSICAL MEDICINE AND REHAB [address] [place] [address] FAX: [phone] OFFICE VISIT PHYSICAL MEDICINE REHABILITATION PROGRESS NOTE PRIMARY CARE PROVIDER: Jose Angel Reina MD. DATE OF SERVICE: 07/06/2013. PATIENT IDENTIFICATION: A 62-year-old male with a history of low back pain and right should er pain. Chief complaint of neck pain. HISTORY OF PRESENT ILLNESS: Mr. Aguilar was last seen by me 04/27/2013. In the past, he has primarily been seen by me for low back pain and lumbar facet arthritis. He had lumbar face t injections which offered him significant pain relief in the past that continue to offer h im pain relief at this time. When he was last seen, he was prescribed physical therapy. He has participated in physical therapy. He indicates that it has offered him benefit in reduc tion in pain. He indicates that his current back pain is a 0/10 on a numerical pain scale. He indicates that his back pain is well-controlled. He has no pain complaints at this time. He continues to ambulate with a walker. He continues to have issues with ataxia. He has a consult with [facility], later this month regard ing his ataxia. When he was last seen, he had some shoulder pain. He was asked about shoulder pain again to day. He indicates that he has intermittent right shoulder pain. He indicates that it is loly y mild. He indicates that it is not significant. He indicates that it is not bothering him enough at this time to warrant further investigation or treatment. He reports that he has a new issue and problem, neck pain. He indicates that the neck pain is on the right. Neck pain started approximately 5 to 6 days ago. Neck pain has been consta nt over that time. Current neck pain is 5/10 on a numerical pain scale. He describes it as a muscle tightness and sharp. He indicates that the pain is increased with neck movement. H e indicates that he is not certain of anything that reduces the pain. He denies any difficu lty swallowing. He denies pain radiating into the right upper extremity. He denies numbness , paresthesia or weakness in either upper extremity. He denies any cough or shortness of br eath. He denies lymph gland swelling. He denies any unexpected weight loss. He denies any f ever or chills. ALLERGIES 1. LEVAQUIN. 2. CHANTIX. CURRENT MEDICATIONS 1. Tylenol. 2. ProAir. 3. Albuterol. 4. Aspirin. 5. Lipitor. 6. Carbamazepine. 7. Vitamin B12. 8. Daliresp. 9. Advair Diskus inhaler. 10. Lisinopril 10 mg 2-1/2 tablets daily. 11. Glucophage 500 mg 2 times daily. 12. Oxygen 3 liters at night. 13. Requip 1 mg nightly. 14. Senna stool softener as needed. 15. Spiriva inhaler. REVIEW OF SYSTEMS Mr. Aguilar denies nausea, vomiting, diarrhea, constipation, fever, chills, shortness of br eath or chest pain at this time. He has had cough and shortness of breath in the past, but he indicates that they are currently well-controlled. He denies incontinence of bowel or bl adder. Denies saddle anesthesia. Denies numbness, paresthesia or weakness in upper extremit ies. Denies neck pain radiating into the arm. He reports constant right lateral neck pain. See the history of present illness above. All other review of systems negative. PHYSICAL EXAMINATION VITAL SIGNS: Heart rate 75, respiratory rate 20, blood pressure 122/76, weight 230 pounds, height 5 feet 9 inches. GENERAL: In no acute distress. Accompanied by . Ambulating with a wheeled walker. Smell s of tobacco smoke. HEENT: Extraocular muscles intact. Sclerae clear. Voice slightly tremulous. NECK: Limited range of motion. Increased tone over right scalene complex. Tenderness to palpation over ri ght scalene muscles. Limited tilt of the head towards the left. He reports reproduction of and stretching of the muscle as well as pain with lateral tilt towards the left. Denies inc reased pain with right lateral tilt of neck. Spurling's test negative bilaterally. Axial lo ading test negative. BACK: Slight asymmetry. Increased thoracic kyphosis. Seated straight leg raise negative. Ashley mbar facet loading test positive. EXTREMITIES: Exam reveals no edema in all 4 extremities. SKIN: Intact. No cyanosis noted i n either upper extremity. NEUROLOGICAL: Exam demonstrates some mild persisting ataxia. Spee ch normal. Memory intact. Strength in both upper extremities demonstrate 5/5 biceps, tricep s, wrist dorsiflexion, and hand field project manager. DATABASE: No new imaging or laboratory data available for review at this time. IMPRESSION 1. ACUTE RIGHT-SIDED NECK PAIN, ICD-9 723.1. 2. CERVICAL STRAIN, ICD-9 847.0. 3. LUMBAR FACET ARTHRITIS - QUIESCENT, ICD-9 721.3. 4. LUMBALGIA, ICD-9 724.2. 5. ATAXIA, ICD-9 781.3. PLAN: Mr. Aguilar and his back pain are doing very well at this time. He is instructed to continue the exercise program as outlined by physical therapy indefinitely. If in the futur e, if back pain returns, may consider repeating lumbar facet injections. He will followup w ith [facility] regarding his ataxia. In regards to his right-sided neck pain, it has only been present for several days. Most li debbie a cervical strain. May be related to underlying degenerative disk disease. He was give n options of therapy, imaging, medication, etc. At this time he would prefer only trying a short-term medication for pain relief. He did not want to pursue further workup or therapy at this time. I agree with this considering the short-term nature of his current pain. He w as given. a 10 day prescription for Tizanidine 2 mg q.6h. p.r.n. He may use this for muscle tightness and neck spasm. He was instructed that if his neck pain persists that he should return to the clinic. He was instructed that if his neck pain worsens that he should seek u ent care or return to the clinic. If neck pain resolves he does not need to followup with the clinic in the immediate future. He will return to the clinic in 3 months' time to revi ew management of his back pain and review his neck pain. He will return to the clinic earli er if symptoms do not improve or get worse. Greater than 30 minutes was spent fien-rc-iqhy today with Mr. Aguilar, over half of which w as spent formulating and discussing his medical treatment plan. Thank you for allowing me to be involved in the care of your patient. If you have any quest ions regarding the care of Mr. Aguilar, please do not hesitate to call. Karlos Craig Jr, MD PURVI / PAP JOB #: [id number] cc: Peter Reina MD documented in this encounter Plan of Treatment +--------+ + + + + | Date | Type | Specialty | Care Team | Description | +--------+ + + + + | 11/16/ | Appointment | Radiology | Alfonso Wallace MD | | | 2019 | | | [address] | | | | | | [place], [place] | | | | | | [address] | | | | | | | | +--------+ + + + + documented as of this encounter Visit Diagnoses + + | Diagnosis | + + | Neck pain on right side - Primary Cervicalgia | + + | Cervical strain, initial encounter | + + | Lumbar facet arthropathy Lumbosacral spondylosis without myelopathy | + + | Lumbalgia Lumbago | + + | Ataxia Lack of coordination | + + documented in this encounter
--- OUTSIDE RECORDS SUMMARY | ~2019-08-31 | XMS | Encounter Summary ---
Demographics + + + | Address | [address] | | | [place] [address] | + + + | Home Phone | | + + + | Preferred Language | Unknown | + + + | Marital Status | | + + + | Cheondoism Affiliation | 1061 | + + + | Race | Unknown | + + + | Ethnic Group | Unknown | + + + Author + + + | Author | [facility] | | | and [place] | + + + | Organization | [facility] | | | and [place] | + + + | Address | Unknown | + + + | Phone | Unavailable | + + + Support + + + + + | Name | Relationship | Address | Phone | + + + + + | Palak Aguilar | ECON | [address] | | | | | [address] | | + + + + + | Tanika Jean | ECON | Unknown | | + + + + + Care Team Providers + +------+ + | Care Virtualization Consultant Name | Role | Phone | + [...] | | | | | [address] [facility] | [place] [address] | | | | | [place] [address] | | | | | | [phone] | | | +--------+ + + + [...] [place] | | | | | | [address] | | | | | | | [...] for comparison only - no result from [place]. | [facility] | + + + + +---------+ + + | Performing | Address | City/State/Zipcode | Phone Number | | Organization | | | | + +---------+ + + | [facility] | | | | + +---------+ + + documented in this encounter Visit Diagnoses Not on filedocumented in this encounter"
--- OUTSIDE RECORDS SUMMARY | ~2019-08-31 | XMS | Encounter Summary ---
Demographics + + + | Address | [address] | | | [place] [address] | + + + | Home Phone | | + + + | Preferred Language | Unknown | + + + | Marital Status | | + + + | Religion Affiliation | 1061 | + + + [...] [id number] | | | | | [address] | | + + + + + | Tanika Jean | ECON | Unknown | | + + + + + Care Team Providers + +------+ + | Care Dub Room Engineer Name | Role | Phone | [...] | Off[place], | Medication Refill | | 2011 | | PULMONARY [address] | Ling Frazier MD | | | | | [place], | | | | | | [place] [address] | | | | | | [phone] | | | +--------+--------+ + + + [...] [place] | | | | | | [address] | | | | | | | [...]
--- OUTSIDE RECORDS SUMMARY | ~2019-08-31 | XMS | Encounter Summary ---
Demographics + + + | Address | [address] | | | [place] [address] | + + + | Home Phone [...] + + | Author | [facility] | | | and [place] | + + + | Organization | [facility] | | | and [place] | + + + | Address | Unknown | + + + | Phone | Unavailable | + + + Support + + + + + | Name | Relationship | Address | Phone | + + + + + | Palak Daugherty | ECON | [address] [place] | | | | | [address] | | + + + + + | Tanika Jean | ECON | Unknown | | + + + + + Care Team Providers + +------+ + | Care Collar Closer Lockstitch Name | Role | Phone | + [...] | | | hazards to | | [address] Phone: | | | | | health | | [phone] | | | | | Centrilobula | | Fax: | | | | | r emphysema | | [phone] | | | | | ([facility]) | | | | | | | Procedures | | | | | | | BRONCHOSCOPY | | | | | | | | | | | | | | ELECTROMAGNE | | | | | | | TIC | | | | | | | NAVIGATION | | | | | | | [[id number]] | | | +--------+--------+ + + + + Encounter Details +--------+---------+ + + + | Date | Type | Department | Care Team | Description | +--------+---------+ + + + | 08/14/ | Surgery | [facility] | Alfonso Wallace MD | BRONCHOSCOPY | | 2020 | | [facility] | [address] | ELECTROMAGNETIC | | | | INTRA OP [address] | [place], [place] | NAVIGATION | | | | [place] [place], [place] | [address] | | | | | [address] | | | | | | [phone] | | | +--------+---------+ + + + [...] [place] | | | | | | [address] | | | | | | | [...] section. | + +--------+ +---+ + | PA BRNCHSC INCL | Routin | 08/15/2019 | [...] | | | | | performed at [facility], | | | | | | [address], [address], | | | | | | [facility] [address] | | | | + + + + + + + + | Specimen | + + | | + + + + + + + | Performing | Address | City/State/Zipcode | Phone Number | | Organization | | | | + + + + + | [facility] | [address] | [place] [address] | [phone] | + + + + + CULTURE, FUNGUS (REFLEX RESULTS ONLY) (08/15/2019 8:46 AM PDT) + + + + + + | Component | Value | Ref Range | Performed | Pathologist | | | | | At | Signature | + + + + + + | Result 1 | Michelle | | [facility] | | | | parapsilosisComment: | | LABORATORY | | | | Light growthTesting | | | | | | performed by [facility], | | | | | | [address], | | | | | | [place] [address] | | | | + + + + + + + + | Specimen | + + | | + + + + + + + | Performing | Address | City/State/Zipcode | Phone Number | | Organization | | | | + + + + + | [facility] | [address] | [place] [address] | [phone] | + + + + + Neal, [...] [place] | | | | | | [address] | | | | + + + [...] AFB CULTURE | Positive (A)Comment: | | [facility] | | | | Acid-fast bacilli [...] | | | | | performed at [facility], | | | | | | [address], | | | | | | [facility] [address] | | | | + + + + + + + + | Specimen | + + | | + + + + + + + | Performing | Address | City/State/Zipcode | Phone Number | | Organization | | | | + + + + + | [facility] | [address] | [place] [address] | [phone] | + + + + + AF[place], [...] [place] | | | | | | [address]Vmnkppr: Testing | | | | | | performed at [facility], [address] | | | | | | [address], | | | | | | [place] [address] | | | | + + + + + + + + | Specimen | + + | | + + + + + + + | Performing | Address | City/State/Zipcode | Phone Number | | Organization | | | | + + + + + | [facility] | [address] | [place] [address] | [phone] | + + + + + CHRISTOPHER [...] RESULT | Testing performed at | | [facility] | | | | [facility], [address] | | LABORATORY | | | | [place], [place] | | | | | | [address]Fpzeefr: Testing | | | | | | performed at [facility], [address] | | | | | | [facility], | | | | | | [place] [address] | | | | + + + + + + + + | Specimen | + + | | + + + + + + + | Performing | Address | City/State/Zipcode | Phone Number | | Organization | | | | + + + + + | [facility] | [address] | [place] [address] | [phone] | + + + + + Culture, [...] LABORATORY | | | | performed at [facility];[address];[place] | | | | | | [address] | | | | + + + + + + | Fungus | Preliminary | | MAR | | | (Mycology) | reportComment: Testing | | LABORATORY | | | Culture | performed by [facility], | | | | | | [address], | | | | | | [place] [address] | | | | + + + + + + + + | Specimen | + + | | + + + + + + + | Performing | Address | City/State/Zipcode | Phone Number | | Organization | | | | + + + + + | [facility] | [address] | [place] [address] | [phone] | + + + + + Culture, [...] [place] | | | | | | [address] | | | | + + + [...] + | RESULT | 16,000 | | [facility] | | | | CFUMIXEDSTAPHYLOCOCCUS | | LABORATORY | | | | SPECIES, COAGULASE | | | | | | NEGATIVE (A)Comment: | | | | | | Testing performed at | | | | | | [facility], [address] [facility] | | | | | | [place] | | | | | | [address] | | | | + + + + + + + + | Specimen | + + | | + + + + + + + | Performing | Address | City/State/Zipcode | Phone Number | | Organization | | | | + + + + + | [facility] | [address] | [place] [address] | [phone] | + + + + + Medical Cytology (08/15/2019 8:46 AM PDT) + + | Specimen | + + | Tissue - | | Bronchoscope, device | | (physical object) | + + + + + | Narrative | Performed At | + + + | ORDERING | [facility] | | PHYSICIAN:Alfonso Wallace MD PATIENT [...] with thepatient's concurrent biopsies | | | ([id number]).AMB:emb PERFORMING LABORATORY:The technical component was | | | performed by [facility], [address] [facility] | | | [place] [address] (Cardiologist: Ramses Purdy D.O.; CLIA#: | | | [id number]).Professional interpretation was performed by [facility] | | | [facility], | | | [place] [address] (Cardiologist: Yoandy Kirkland M.D.; CLIA#: | | | [id number]). Diagnostician: Yoel SLAUGHTER | | | (ASC)CytotechnologistDiagnostician: [...] with the | | |patient's concurrent biopsies ([id number]). | | |AMB:emb | | | | | |PERFORMING LABORATORY: | | |The technical component was performed by [facility], [address] [facility] [place] [address] (Cardiologist: Ramses Purdy D.O.; CLIA#: [id number]). | | |Professional interpretation was performed by [facility], [address] [address] (Cardiologist: Yoandy Kirkland M.D.; CLIA#: [id number]). | | | | | |Diagnostician: Yoel SLAUGHTER (ASC) | | |Blank [facility] | | |Diagnostician: Nata Gallego MD | [...] | | technical component was performed by [facility], [address] [place] [address] | | | [place] [address] (Cardiologist: Nata Gallego MD; CLIA# | | | [id number]). Professional interpretation was performed by[facility] | | | [facility] | | | [place] [address] (Cardiologist: Yoandy Kirkland M.D.; CLIA#: | | | [id number]). Diagnostician: Nata Gallego | | | MDPathologistElectronically Signed 08/16/2019 | | | | | |PERFORMING LABORATORY: | | |The technical component was performed by [facility], [address] [place] [address] (Cardiologist: Nata Gallego MD; CLIA# [id number]). Professional interpretation was performed by | | |[facility], [facility], [address] [place] [address] (Cardiologist: Yoandy Kirkland M.D.; [facility]#: [id number]). | | | | | |Diagnostician: Nata [...] + + | Performing | Address | City/State/[facility] | Phone Number | | Organization | | | | + +---------+ + + | [facility] | | | | + +---------+ + + Bronchoscopy (08/15/2019 6:55 AM PDT) + + | Specimen | + + | | + + + + + | Narrative | Performed At | + + + | [facility] | [facility] | | [facility] | PROVATION | | CenterPulmonology | | | Patient Name: Kevin Daugherty | | | Procedure Date: 08/15/2019 6:55 AMMRN: [id number] | | | Date of : 1950Note [...] | | | navigation bronchoscopy utilizing the [employer] of [employer] system | | | was performed. The [...] [facility] | | | | performed at [facility];[address] | | LABORATORY | | | | [address];[place], [place] | | | | | | [address] | | | | + + + + + + + + | Specimen | + + | Blood | + + + + + + + | Performing | Address | City/State/Zipcode | Phone Number | | Organization | | | | + + + + + | [facility] | [address] | [place] [address] | [phone] | + + + + + Basic [...] | | | | | | MDRD [facility] traceable | | | | | | equation.Testing | | | | | | performed at [facility];[address] | | | | | | [facility];[place], [place] | | | | | | [address] | | | | + + + + + + + + | Specimen | + + | Blood | + + + + + + + | Performing | Address | City/State/Zipcode | Phone Number | | Organization | | | | + + + + + | [facility] | [address] [facility] | [place] [address] | [phone] | + + + + + documented [...] One week or | | | longer, ndmdrv-doy-vhysv use of | | | at least [...] scheduled: AC, NPO, Daytime | | | 4252-8527 Use NIGHT DOSE for | | | doses scheduled: HS, 3AM, | | | Nighttime 5886-1810 If the BG is | | | [...]
--- OUTSIDE RECORDS SUMMARY | ~2019-08-31 | XMS | Encounter Summary ---
Demographics + + + | Address | [address] | | | [place] [address] | + + + | Home Phone [...] [address] | | | | | [address] | | + + + + + | Tanika Jean | ECON | Unknown | | + + + + + Care Team Providers + +------+ + | Care After School Caregiver Name | Role | Phone | + +------+ + | Lyn Fields MD | PCP | | + +------+ + Reason for Visit + + + | Reason | Comments | + + + | Shoulder Pain | right | + + + Encounter Details +--------+---------+ + + + | Date | Type | Department | Care Team | Description | +--------+---------+ + + + | 07/11/ | Office | [facility] | Karlos Fonseca, | Right shoulder pain | | 2015 | Visit | PHYSIATRY [address] | MD [address] | (Primary Dx); | | | | [address] | [place], [place] | Rotator cuff tear | | | | [place], [place] | [address] | arthropathy of right | | | | [address] | | shoulder; Erectile | | | | [phone] | | dysfunction, | | | | | | unspecified erectile | | | | | | dysfunction type | +--------+---------+ + + + Social History [...] + + + | Blood Pressure | 109/65 | 07/11/2014 1:00 PM | | | | | PDT | | + + + + + | Pulse | 100 | 07/11/2014 1:00 PM | | | | | PDT | | + + + + + | Temperature | - | - | | + + + + + | Respiratory Rate | 20 | 07/11/2014 1:00 PM | | | | | PDT | | + + + + + | Oxygen Saturation | - | - | | + + + + + | Inhaled Oxygen | - | - | | | Concentration | | | | + + + + + | Weight | 99.8 kg (220 lb) | 07/11/2014 1:00 PM | | | | | PDT | | + + + + + | Height | 175.3 cm (5' 9") | 07/11/2014 1:00 PM | | | | | PDT | | + + + + + | Body Mass Index | 32.49 | 07/11/2014 1:00 PM | | | | | PDT | | + + + + + documented in this encounter Patient Instructions Patient Instructions Karlos Fonseca MD - 07/11/2014 1:36 PM PDTContinue and complete phy sical therapy for your shoulder. Continue the exercises for your shoulder as outlined by ph ysical therapy in definitely. If shoulder pain returns, return to the clinic. If pain returns we may consider repeat inj ection. If pain is not improved with injection we will request orthopedic surgery consult. Follow up with Lyn Fields MD to discuss treatment options for your ED. documented in this encounter Progress Notes Karlos Fonseca MD - 07/11/2014 1:48 PM PDT [facility] PH[facility]RY [address] [facility] [address] OFFICE NOTE KARLOS FONSECA JR, MD Patient: KEVIN DAUGHERTY Admitting: MR #: [id number] LOC: PT TYPE: Adm Date: 07/11/2014 : 1950 PHYSICAL MEDICINE REHABILITATION PROGRESS NOTE DATE OF : 1950 CONSULT REQUESTED BY: Lyn Fields MD DATE OF SERVICE: 07/11/2014 PATIENT IDENTIFICATION: A 63-year-old male with right shoulder pain, right rotator cuff a rthropathy, and history of tobacco dependence, diabetes, and a new complaint of ED. HISTORY OF PRESENT ILLNESS: The patient indicates that around 1 month ago he developed er ectile dysfunction. He reports that this is a new issue. He denies previous issues with e rectile dysfunction. He reports history of diabetes. He denies chest pain. He has a long history of tobacco dependence. He requests medication Viagra to see if it may help with his erectile dysfunction. He denies any depression. He denies any significant changes in relationship. In regard to right shoulder pain, he reports that right shoulder pain is improved. When h e was last seen 05/2014, he had right shoulder subacromial steroid injection. He reports t hat steroid injection in combination with physical therapy has been extremely helpful in re ducing his shoulder pain. He indicates that his shoulder pain is not completely resolved, but he reports it is dramatically improved. Current pain level is a 1/10 on a numerical pa in scale. He indicates the worst his pain has been in the last week is a 3/10 on a numeric al pain scale. He indicates that shoulder pain is increased with forward flexion and abdu ction. He reports that his shoulder range of motion is dramatically improved since partici pating in physical therapy. He indicates that his pain is constant in timing but dull in q uality. He reports that the pain is mild and is not significantly interfering with his fu nctions in life. He is still participating in therapy. He reports that he has home exerci se program. He is very pleased in his response to therapy and injection. He is not seekin g further treatment for his shoulder at this time as he reports that his shoulder symptoms are much improved. ALLERGIES: LEVOFLOXACIN and CHANTIX. CURRENT MEDICATIONS: Albuterol. Zfjdbbs-dsetpssdlynij-xxzqmbyd 1 tablet every 6 hours as needed. Lipitor 80 mg nightly. Carbamazepine 200 mg 4 times daily. Vitamin B12. Daliresp 500 mcg once twice daily. Flonase nasal spray. Advair Diskus inhaler. Lisinopril. Metformin. Oxygen. Requip. Senna. Spiriva inhaler. REVIEW OF SYSTEMS: The patient denies nausea, vomiting, fever, chills, shortness of breat h, or chest pain at this time. He denies skin breakdown or rash. He reports erectile dysf unction. He reports that he does frequently have shortness of breath. All other review of systems negative. PHYSICAL EXAMINATION: VITAL SIGNS: Heart rate 100, respiratory rate 20, blood pressure 109/65, weight 220 pound s, height 5 feet 9 inches. GENERAL: No acute distress. Alert and oriented to person, place, time and situation. HEENT: Extraocular muscles intact. Sclerae are clear. NECK: Limited range of motion. Mild tenderness to palpation. Spurling's test negative bi laterally. HEART: Regular rate and rhythm, no murmurs, no gallops. LUNGS: Increased expiratory phas e. Increased upper respiratory sounds bilaterally. No crackles. ABDOMEN: Positive for bowel sounds, nontender, nondistended. EXTREMITIES: Reveals no clu bbing, cyanosis or edema. Right shoulder examination demonstrates improved right shoulder range of motion. Impingement sign negative. Empty cans test positive. Full cans test neg ative. Speed test negative. Apley scratch test positive. DATABASE: No new imaging or laboratory data available for review at this time. ASSESSMENT: 1. Right shoulder pain - improved, ICD-9 719.41. 2. Right rotator cuff arthropathy - improved, ICD-9 716.91. 3. Erectile dysfunction, ICD -9 607.84. PLAN: The patient's shoulder pain is improved after recent treatments. Steroid injection and physical therapy have been helpful. He has been asked to continue and complete physica l therapy. He has been instructed to continue home exercise program indefinitely. We disc ussed that if right shoulder pain returns in the future he may return to the clinic and we can consider repeating right shoulder steroid injection. We discussed that if steroid inj ection does not offer long lasting relief, future treatment considerations include orthoped ic surgical consultation. Regarding his erectile dysfunction, we reviewed that smoking may contribute towards erecti le dysfunction. We discussed that diabetes may contribute towards erectile dysfunction. W e discussed that he is at significant cardiovascular risk. We discussed that he needs to r eview his erectile dysfunction with his primary care doctor and discuss whether or not it would be safe for him to use a medication such as Viagra. He has been asked to follow up w ith his primary care Dr. Aguilera to discuss management and treatment of his erectile dys function. No prescription of Viagra was given today. Thank you for allowing me to be involved in the care of your patient. If you have any ques tions regarding the care of Mr. Daugherty, please do not hesitate to call. KARLOS FONSECA JR, MD Dictated by KARLOS FONSECA JR, MD 07/11/2014 13:48:33 Transcribed on 07/11/2014 14:16:43 by stacy job# [id number] Confirmation #: [id number] cc: LYN FIELDS MD 3:2 0 PM PDTMardante, Karlos Gatica MD - 07/11/2014 1:38 PM PDTThis office note has been dictated. Job ID# [id number] [email or web address] Arleen Gatica RN - 07/11/2014 1:09 PM PDTPatient states he continues to participate in therapies for his rt shoulder, Patient has no complaints of pain at this time. documented in this encounter Plan of Treatment +--------+ + + + + | Date | Type | Specialty | Care Team | Description | +--------+ + + + + | 11/16/ | Appointment | Radiology | Alfonso Wallace MD | | | 2019 | | | [address] | | | | | | [place] | | | | | | [id number] | | | | | | | | +--------+ + + + + documented as of this encounter Visit Diagnoses + + | Diagnosis | + + | Right shoulder pain - Primary Pain in joint, shoulder region | + + | Rotator cuff tear arthropathy of right shoulder Traumatic arthropathy, shoulder | | region | + + | Erectile dysfunction, unspecified erectile dysfunction type | + + documented in this encounter
--- OUTSIDE RECORDS SUMMARY | ~2019-08-31 | XMS | Encounter Summary ---
Demographics + + + | Address | [address] | | | [place] [address] | + + + | Home Phone | | + + + | Preferred Language | Unknown | + + + | Marital Status | | + + + | Oriental Orthodox Affiliation | 1061 | + + + | Race | Unknown | + + + | Ethnic Group | Unknown | + + + Author + + + | Author | [facility] | | | and [place] | + + + | Organization | [facility] | | | and [place] | + + + | Address | Unknown | + + + | Phone | Unavailable | + + + Support + + + + + | Name | Relationship | Address | Phone | + + + + + | Palak Aguilar | ECON | [address] | | | | | [address] | | + + + + + | Tanika Jean | ECON | Unknown | | + + + + + Care Team Providers + +------+ + | Care Comfort Filler Name | Role | Phone | + [...] Description | +--------+--------+ + + + | 10/13/ | Refill | [facility] [place] | [place], | Medication Refill | | 2013 | | PULMONARY [address] | Lign Frazier MD | | | | | [place], | | | | | | [place] [address] | | | | | | [phone] | | | +--------+--------+ + + + [...]
--- OUTSIDE RECORDS SUMMARY | ~2019-08-31 | XMS | Encounter Summary ---
Demographics + + + | Address | [address] | | | [place] [address] | + + + | Home Phone | | + + + | Preferred Language | Unknown | + + + | Marital Status | | + + + | Baptism Affiliation | 1061 | + + + [...] | Palak Trejo Aguilar | ECON | [address] | | | | | [address] | | + + + + + | Tanika Jean | ECON | Unknown | | + + + + + Care Team Providers + +------+ + | Care Almond Blancher Hand Name | Role | Phone | + +------+ + | No, Physician | PCP | Unavailable | + +------+ + Encounter Details +--------+ + + + + | Date | Type | Department | Care Team | Description | +--------+ + + + + | 08/13/ | Preadmit | [facility] | Alfonso Wallace MD | No Show | | 2020 | Visit | [facility] | [address] | | | | | CLINIC [address] | [place], [place] | | | | | [address] [place], [place] | [address] | | | | | [address] | | | | | | [phone] | | | +--------+ + + + [...] | | | 2019 | | | [address] | | | | | | [place] | | | | | | [address] | | | | | | | | +--------+ + + + + documented as of this encounter Visit Diagnoses Not on filedocumented in this encounter"
--- OUTSIDE RECORDS SUMMARY | ~2019-08-31 | XMS | Encounter Summary ---
Demographics + + + | Address | [address] | | | [place] [address] | + + + | Home Phone | | + + + | Preferred Language | Unknown | + + + | Marital Status | | + + + | Amish Affiliation | 1061 | + + + | Race | Unknown | + + + | Ethnic Group | Unknown | + + + Author + + + | Author | [facility] | | | and [place] | + + + | Organization | [facility] | | | and [place] | + + + | Address | Unknown | + + + | Phone | Unavailable | + + + Support + + + + + | Name | Relationship | Address | Phone | + + + + + | Palak Daugherty | ECON | [address] | | | | | [address] | | + + + + + | Tanika Jean | ECON | Unknown | | + + + + + Care Team Providers + +------+ + | Care Hvac Sales Engineer Name | Role | Phone | [...] | | | Services | Therapy | Right | Karlos Gatica MD | | | | Required | | shoulder | [address] | | | | | | pain | [address] | | | | | | Rotator cuff | [place], | | | | | | tear | [place] [address] | | | | | | arthropathy | Phone: | | | | | | of right | [phone] | | | | | | shoulder | Fax: | | | | | | | [phone] | | +--------+ + + + + + Reason for Visit + + + | Reason | Comments | + + + | Shoulder Pain | | + + + Encounter Details +--------+---------+ + + + | Date | Type | Department | Care Team | Description | +--------+---------+ + + + | 05/11/ | Office | [facility] [place] | Karlos Craig, | Right shoulder pain | | 2015 | Visit | PHYSIATRY [address] | [address] | (Primary Dx); | | | | [address] | [place] | Rotator cuff tear | | | | [place] | [address] | arthropathy of right | | | | [address] | | shoulder | | | | [phone] | | | +--------+---------+ + + + [...] + | Blood Pressure | 124/82 | 05/11/2014 12:36 PM | | | | | PST | | + + + + + | Pulse | 76 | 05/11/2014 12:36 PM | | | | | PST | | + + + + + | Temperature | - | - | | + + + + + | Respiratory Rate | 20 | 05/11/2014 12:36 PM | | | | | PST | | + + + + + | Oxygen Saturation | - | - | | + + + + + | Inhaled Oxygen | - | - | | | Concentration | | | | + + + + + | Weight | 100.7 kg (222 lb) | 05/11/2014 12:36 PM | | | | | PST | | + + + + + | Height | 175.3 cm (5' 9") | 05/11/2014 12:36 PM | | | | | PST | | + + + + + | Body Mass Index | 32.78 | 05/11/2014 12:36 PM | | | | | PST | | + + + + + documented in this encounter Patient Instructions Patient Instructions Karlos Craig MD - 05/11/2014 12:53 PM PSTPhysical therapy has been prescribed. Please participate in physical therapy. If you have not be contacted for an a ppointment with physical therapy within one week, please contact the clinic. Once you have completed physical therapy please continue the home exercise program as outline by physical therapy, indefinitely. Return to the clinic in 2 months. If pain persists in the future we will request orthopedi c surgery consult. documented in this encounter Progress Notes Karlos Craig MD - 05/11/2014 2:25 PM PST [facility] PHYSIATRY [address] [facility] [id number] OFFICE NOTE KARLOS CRAIG JR, MD Patient: KEVIN DAUGHERTY Admitting: MR #: [id number] LOC: PT TYPE: Adm Date: 05/11/2014 : 1950 PROGRESS NOTE DATE OF : 1950 PRIMARY CARE PROVIDER: Lyn Fields MD DATE OF SERVICE: 05/11/2014 PATIENT IDENTIFICATION: A 63-year-old male with chief complaint of right shoulder pain. HISTORY OF PRESENT ILLNESS: The patient was last seen by me 03/22/2014. At that time, he had significant right shoulder pain. He had a right shoulder subacromial steroid injection . He has had right shoulder MRI. He returns to clinic today to review management of his ri ght shoulder pain and to review his imaging results. The patient indicates that his right shoulder pain is the same to slightly better after st eroid injection. He reports that it still hurts. Pain is a 5/10 on the numerical pain sca le. Pain is constant in timing. Pain is dull in quality. He reports the pain as being lo cated over the posterior right shoulder. Pain is increased with forward flexion and abduc tion. He has not found anything that seems to reduce his shoulder pain. He has tried anti -inflammatory medications. He reports that he has done some exercises. He has had very li mited therapy for his shoulder by his report. ALLERGIES: LEVOFLOXACIN and CHANTIX. CURRENT MEDICATIONS: Albuterol. Qtydpjc-fuglwnlitwhwy-ecadsnof. Lipitor. Carbamazepine. Vitamin B12. Valium. Flonase. Advair Diskus inhaler. Lisinopril. Metformin. Requip. Spiriva inhaler. REVIEW OF SYSTEMS: The patient denies nausea, vomiting, fever, chills, shortness of breat h, or chest pain at this time. He denies skin breakdown or rash. All other review of syst ems negative. He reports having shortness of breath frequently. PHYSICAL EXAMINATION: VITAL SIGNS: Heart rate 76, respiratory rate 20, blood pressure 124/82, weight 222 pounds , height 5 feet 9 inches. GENERAL: No acute distress, accompanied by . Exam room smells of cigarette smoke. HEENT: Extraocular muscles intact. Sclerae are clear. NECK: Limited range of motion. Spurling's test negative. Axial loading test negative. HEART: Regular rate and rhythm, no murmurs, no gallops. LUNGS: Increased expiratory phas e. Increased respiratory sounds. No crackles noted bilaterally. BACK: Symmetric tenderness to palpation. Harley's test negative bilaterally. Carli ellen t negative. EXTREMITIES: Reveals no clubbing in upper and lower extremities. No edema in upper and l ower extremities. Skin intact in upper and lower extremities. Right shoulder examination d emonstrates impingement sign positive. Drop arm test negative. Empty cans and full cans t est positive. Apley scratch test positive. Right shoulder MR arthrogram, 04/20/2014. This imaging demonstrates a low-grade partial t earing of the anterior supraspinatus and moderate grade tearing of the posterior supraspina tus tendon, both in the critical zone. There is intrasubstance partial tearing at the jm ral insertion of the infraspinatus tendon. There are degenerative changes within the acro mioclavicular joint. ASSESSMENT: 1. Right shoulder pain, ICD-9 is 719.41. 2. Right rotator cuff tear and arthropathy, ICD-9 is 716.91. PLAN: The patient was given the option of seeing an orthopedic surgeon today. He indicat es that he would like to continue conservative care further. He will participate in physic al therapy with rhomboid strengthening, trapezius strengthening, working towards shoulder, back posture. He will have pectoral stretches. He will establish a home exercise program . He has already had right shoulder subacromial steroid injection without substantial bene fit. He will return to clinic in 2 months' time to review management of symptoms. If righ t shoulder pain persists at that time, he will be sent to orthopedic surgery to discuss mckeon rgical treatment options. Thank you for allowing me to be involved in the care of your patient. If you have any ques tions regarding the care of Mr. Daugherty, please do not hesitate to call. KARLOS CRAIG JR, MD Dictated by KARLOS CRAIG JR, MD 05/11/2014 14:25:03 Transcribed on 05/12/2014 03:00:15 by job# [id number] Confirmation #: [id number] cc: LYN FIELDS MD 9:1 0 AM Karlos Berumen MD - 05/11/2014 12:54 PM PSTThis office note has been dictated. Job ID# [id number] signed by Karlos Craig MD at 05/11/2014 2:25 PM Arleen Lo RN - 05/11/2014 12:48 PM PSTPatient states that he continues to have some mild shoulder pain post injection. documented in this encounter Plan of Treatment +--------+ + + + + | Date | Type | Specialty | Care Team | Description | +--------+ + + + + | 11/16/ | Appointment | Radiology | Alfonso Wallace MD | | | 2020 | | | [address] | | | | | | [place] | | | | | | [address] | | | | | | | | +--------+ + + + + + + +--------+ + + | Name | Type | Priori | Associated Diagnoses | Order Schedule | | | | ty | | | + + +--------+ + + | External Ambulatory | Outpatient | Routin | Right shoulder | Ordered: 05/11/2014 | | referral to Physical | Referral | e | pain Rotator cuff | | | Therapy | | | tear arthropathy of | | | | | | right shoulder | | + + +--------+ + + documented as of this encounter Visit Diagnoses + + | Diagnosis | + + | Right shoulder pain - Primary Pain in joint, shoulder region | + + | 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
--- OUTSIDE RECORDS SUMMARY | ~2019-08-31 | XMS | Encounter Summary ---
Demographics + + + | Address | [address] | | | [place] [address] | + + + | Home Phone | | + + + | Preferred Language | Unknown | + + + | Marital Status | | + + + | Confucianist Affiliation | 1061 | + + + [...] [address] | | | | | [address] | | + + + + + | Tanika Jean | ECON | Unknown | | + + + + + Care Team Providers + +------+ + | Care Diesel Maintenance Electrician Name | Role | Phone | + +------+ + PCP | Unavailable | + +------+ + Encounter Details +--------+ + + + + | Date | Type | Department | Care Team | Description | +--------+ + + + + | 01/19/ | Hospital | [facility] | | | | 2000 | Encounter | MED CTR GENERIC OP | | | | | | CONV DEPT [address] | | | | | | [place], | | | | | | [place] [address] | | | | | | [phone] | | | +--------+ + + + [...] [place] | | | | | | [address] | | | | | | | | +--------+ + + + + documented as of this encounter Visit Diagnoses Not on filedocumented in this encounter"
--- OUTSIDE RECORDS SUMMARY | ~2019-08-31 | XMS | Encounter Summary ---
Demographics + + + | Address | [address] | | | [place] [address] | + + + | Home Phone [...] #[address] | | | | | [address] | | + + + + + | Tanika Jean | ECON | Unknown | | + + + + + Care Team Providers + +------+ + | Care Tobacco Sample Puller Name | Role | Phone | + [...] | Karlos Gatica MD | [address] | | | | | spinal | [address] | [place], | | | | | stenosis | [address] | [place] | | | | | Facet | [place], | [address] | | | | | arthritis of | [place] [address] | Phone: | | | | | lumbar | Phone: | [phone] | | | | | region | [phone] | Fax: | | | | | Lumbalgia | Fax: | [phone] | | | | | Procedures | [phone] | | | | | | MRI [...] + | 01/19/ | Office | [facility] | Karlos Craig, | Lumbar spinal | | 2012 | Visit | MEDICINE | [address] | stenosis (Primary | | | | REHABILIT[address] | [place] | Dx); 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 Job ID# [id number] signed by Karlos Craig MD at 01/19/2013 6:06 PM Arleen Ashby RN - 01/19/2013 2:28 PM PDTPatient stets he continues to have unsteady gait. No back lucinda n at this time. Patient continues to work with PT. Karlos Garcia MD - 01/19/2013 12:00 AM PDT [facility] RE[facility]AB [address] [place] [address] FAX: [phone] OFFICE VISIT PHYSICAL MEDICINE REHABILITATION PROGRESS NOTE [...] was recommended that he be evaluated at [facility]. T his is pending. When he was [...] worth of physical therapy [facility]. Mr. Daugherty has not noted any [...] there is "degenerative changes of the posterior [place] ents of L5, otherwise unremarkable lumbar spine." [...] is necessary for his back. If his [facility] MRI is normal, I would attribute his current sensation and symptoms as to the ataxia a nd neurologic diagnosis that Dr. Williamson has given him. However, if there is evidence of lumbar spinal stenosis, neural foraminal narrowing or contribution towards lumbar radiculopathy, these issues may be addressed. Approximately 30 minutes was spent xfqj-ld-mhhv today with Mr. Daugherty, over half of which was spent formulating and discussing his medical treatment plan. Thank you for allowing me to be involved in the care of your patient. If you have any quest ions regarding the care of Mr. Daugherty, please do not hesitate to call. Karlos Craig Jr, MD [place] / PAP JOB #: [id number] cc: Peter Reina MD documented in this [...] [place] | | | | | | [address] | | | | | | | | +--------+ + + + + documented as of this encounter Results MRI Lumbar Spine wo Contrast (02/22/2013 3:17 PM PST) + + | Specimen | + + | | + + + + + | Narrative | Performed At | + + + | [facility] | [facility] | | Department [address] [facility], [place] | TK | | [ rep ct [address]] [ rep ct [facility] | | st zip] Signed | - IMAGING | | | | | Patient Name: KEVIN DAUGHERTY SR | | | Physician: ROBINA : 1950 Age: 62 Sex: M Unit | | | #: [id number] Exam Date: 02/22/13 [place]: | | | [facility] [place] #: [id number] Page: | | | %(RAD)RES..mtdd.print.filter("pg") of %(RAD) | | | RES..mtdd.print.filter("tpg") | | | | | | Accession Number: [id number] | | | LUMBAR SPINE WITHOUT CONTRAST [...] Transcribed Date/Time: 02/22/2013 | | | 18:05 Jet Handler: <<Signature on | | | File>> | | | Yared | | | Monica Diaz MD02/22/132110 <Electronically signed by Yared Anderson | | | Joe ARIAS> Yared Diaz MD 02/22/13 6538 | | | Jet Handler: [email or web address] Ihvqfzwvyawnr50/20/13 4810 | | | Karlos Craig Jr, MD | | + + + + + + + + | Performing | Address | City/State/Zipcode | Phone Number | | Organization | | | | + + + + + | [facility] | [address] | [place] | [phone] | | [facility] | | [address] | | | - IMAGING | | [...]
--- OUTSIDE RECORDS SUMMARY | ~2019-08-31 | XMS | Encounter Summary ---
Demographics + + + | Address | [address] | | | [place] [address] | + + + | Home Phone [...] #[place] | | | | | [address] | | + + + + + | Tanika Jean | ECON | Unknown | | + + + + + Care Team Providers + +------+ + | Care Olive Grader Name | Role | Phone | + [...] | | | | | [address] [facility] | [place] [address] | | | | | [place] [address] | | | | | | [phone] | | | +--------+ + + + [...] | | | | | [address] [place] [facility] | | | | | | [address] | | | | | | | [...] for comparison only - no result from [place]. | [facility] | + + + + +---------+ + + | Performing | Address | City/State/Zipcode | Phone Number | | Organization | | | | + +---------+ + + | [facility] | | | | + +---------+ + + documented in this encounter Visit Diagnoses Not on filedocumented in this encounter"
--- OUTSIDE RECORDS SUMMARY | ~2019-08-31 | XMS | Encounter Summary ---
Demographics + + + | Address | [address] | | | [place] [address] | + + + | Home Phone | | + + + | Preferred Language | Unknown | + + + | Marital Status | | + + + | Buddhist Affiliation | 1061 | + + + | Race | Unknown | + + + | Ethnic Group | Unknown | + + + Author + + + | Author | [facility] | | | and [place] | + + + | Organization | [facility] | | | and [place] | + + + | Address | Unknown | + + + | Phone | Unavailable | + + + Support + + + + + | Name | Relationship | Address | Phone | + + + + + | Palak Gipsonock | ECON | [address] | | | | | [address] | | + + + + + | Tanika Jean | ECON | Unknown | | + + + + + Care Team Providers + +------+ + | Care Hatchery Helper Name | Role | Phone | [...] | | | | | | [place] [address] | | | | | | [phone] | | | +--------+--------+ + + + [...] | | | | | [place] | | | | | | [address] | | | | | | | [...]
--- OUTSIDE RECORDS SUMMARY | ~2019-08-31 | XMS | Encounter Summary ---
Demographics + + + | Address | [address] | | | [place] [address] | + + + | Home Phone | | + + + | Preferred Language | Unknown | + + + | Marital Status | | + + + | Voodoo Affiliation | 1061 | + + + | Race | Unknown | + + + | Ethnic Group | Unknown | + + + Author + + + | Author | [facility] | | | and [place] | + + + | Organization | [facility] | | | and [place] | + + + | Address | Unknown | + + + | Phone | Unavailable | + + + Support + + + + + | Name | Relationship | Address | Phone | + + + + + | Palak Aguilar | ECON | [address] | | | | | [address] | | + + + + + | Tanika Jean | ECON | Unknown | | + + + + + Care Team Providers + +------+ + | Care Barrel Ribs Solderer Name | Role | Phone | + [...] | 06/16/ | Refill | [facility] [place] | [place], | Medication Refill | | 2015 | | PULMONARY [address] | Ling Frazier MD | | | | | [place], | | | | | | [place] [address] | | | | | | [phone] | | | +--------+--------+ + + + [...] 11/16/ | Appointment | Radiology | Alfonso Wallcae MD | | | 2020 | | | [address] | | | | | | [place] | | | | | | [id number] | | | | | | | | +--------+ + + + + documented as of this encounter Visit Diagnoses + + | Diagnosis | + + | Chronic obstructive pulmonary disease, unspecified COPD type (HCC) - Primary | + + documented in this encounter
--- OUTSIDE RECORDS SUMMARY | ~2019-08-31 | XMS | Encounter Summary ---
Demographics + + + | Address | [address] | | | [place] [address] | + + + | Home Phone [...] [address] | | | | | [address] | | + + + + + | Tanika Jean | ECON | Unknown | | + + + + + Care Team Providers + +------+ + | Care Firer Locomotive Name | Role | Phone | + +------+ + PCP | Unavailable | + +------+ + Encounter Details +--------+ + + + + | Date | Type | Department | Care Team | Description | +--------+ + + + + | / | Hospital | [facility] | Zoran Espinoza, | Vitreous membranes | | 1999 | Encounter | [facility] | [address] | | | | | OUTPATIENT | [place], [place] | | | | | PROCEDURES [address] | [address] | | | | | [address] | | | | | | [place], [place] | | | | | | [address] | | | | | | [phone] | | | +--------+ + + + [...] [place] | | | | | | [address] | | | | | | | | +--------+ + + + + documented as of this encounter Visit Diagnoses + + | Diagnosis | + + | Vitreous membranes Vitreous membranes and strands | + + documented in this encounter"
--- OUTSIDE RECORDS SUMMARY | ~2019-08-31 | XMS | Encounter Summary ---
Demographics + + + | Address | [address] | | | [place] [address] | + + + | Home Phone [...] #[address] | | | | | [address] | | + + + + + | Tanika Jean | ECON | Unknown | | + + + + + Care Team Providers + +------+ + | Care Internal Revenue Service Agent Name | Role | Phone | [...] Frazier MD | | | | | [place], | | | | | | [place] [address] | | | | | | [phone] | | | +--------+ + + + [...] [place] | | | | | | [address] | | | | | | | [...] +--------+ + + + | EXTERNAL LAB: NATALIA | Baljinder | 06/06/2015 | | Results for this [...] +--------+ + + + | EXTERNAL LAB: CBC | Routin | 06/06/2015 | | Results for this | | | e | | | procedure are in the | | | | | | results section. | + +--------+ + + + | EXTERNAL LAB: Freddie TYPE | Routin | 06/06/2015 | | Results for this | | NATURETIC PEPTIDE | e | | | procedure are in the | | | | | | results section. | + +--------+ + + + | EXTERNAL LAB: EGFR | Routin | 06/06/2015 | | Results [...] | bulin Ratio | | | [facility] | | | | | | MEDICAL [...] ST. | [address] | [place] | [phone] | | [facility] | | [address] | | | - LABORATORY | | | | + + + + + External Lab: CACHORRO (06/06/2015) + +-------+ + + + | Component | Value | Ref Range | Performed | Pathologist | | | | | At | Signature | + +-------+ + + + | BUN, | 12 | 6 - 23 | [...] | 23.9 | 6.0 - 28.6 | [facility] | | | ine | | | [facility] | | [...] [address] | [place] | [phone] | | [facility] | | [address], [facility] | | | - LABORATORY | | [...] +-------+ + + + | [place] | | - 31 | EXTERNAL | | | [...]
--- OUTSIDE RECORDS SUMMARY | ~2019-08-31 | XMS | Encounter Summary ---
Demographics + + + | Address | [address] | | | [place] [address] | + + + | Home Phone [...] Author | [facility] | | | and [place] | + + + | Organization | [facility] | | | and [place] | + + + | Address | Unknown | + + + | Phone | Unavailable | + + + Support + + + + + | Name | Relationship | Address | Phone | + + + + + | Palak Aguilar | ECON | [address] | | | | | [address] | | + + + + + | Tanika Jean | ECON | Unknown | | + + + + + Care Team Providers + +------+ + | Care Canine Enforcement Officer Name | Role | Phone | [...] Description | +--------+--------+ + + + | 12/25/ | Refill | [facility] [place] | [place], | Medication Refill | | 2014 | | PULMONARY [address] | Ling Frazier MD | | | | | [place], | | | | | | [place] [address] | | | | | | [phone] | | | +--------+--------+ + + + [...] | | | | | [place] | | | | | | [address] | | | | | | | | +--------+ + + + + documented as of this encounter Visit Diagnoses Not on filedocumented in this encounter"
--- OUTSIDE RECORDS SUMMARY | ~2019-08-31 | XMS | Encounter Summary ---
Demographics + + + | Address | [address] | | | [place] [address] | + + + | Home Phone [...] | Author | [facility] | | | and [place] | + + + | Organization | [facility] | | | and [place] | + + + | Address | Unknown | + + + | Phone | Unavailable | + + + Support + + + + + | Name | Relationship | Address | Phone | + + + + + | Palak Gipsonock | ECON | [address] | | | | | [address] | | + + + + + | Tanika Jean | ECON | Unknown | | + + + + + Care Team Providers + +------+ + | Care Copying Machine Repairer Name | Role | Phone | [...] | | | | | | [place] [address] | | | | | | [phone] | | | +--------+--------+ + + + [...] [place] | | | | | | [address] | | | | | | | [...]
--- OUTSIDE RECORDS SUMMARY | ~2019-08-31 | XMS | Encounter Summary ---
Demographics + + + | Address | [address] | | | [place] [address] | + + + | Home Phone | | + + + | Preferred Language | Unknown | + + + | Marital Status | | + + + | Church Affiliation | 1061 | + + + | Race | Unknown | + + + | Ethnic Group | Unknown | + + + Author + + + | Author | [facility] | | | and [place] | + + + | Organization | [facility] | | | and [place] | + + + | Address | Unknown | + + + | Phone | Unavailable | + + + Support + + + + + | Name | Relationship | Address | Phone | + + + + + | Palak Aguilar | ECON | [address] | | | | | [address] | | + + + + + | Tanika Jean | ECON | Unknown | | + + + + + Care Team Providers + +------+ + | Care Waste Duster Name | Role | Phone | + [...] | | | | | [facility] [facility] | [place] [address] | | | | | [place] [address] | | | | | | [phone] | | | +--------+ + + + [...] [place] | | | | | | [address] | | | | | | | [...] for comparison only - no result from [place]. | [facility] | + + + + +---------+ + + | Performing | Address | City/State/Zipcode | Phone Number | | Organization | | | | + +---------+ + + | [facility] | | | | + +---------+ + + documented in this encounter Visit Diagnoses Not on filedocumented in this encounter"
--- OUTSIDE RECORDS SUMMARY | ~2019-08-31 | XMS | Encounter Summary ---
Demographics + + + | Address | [address] | | | [place] [address] | + + + | Home Phone [...] #[id number] | | | | | [address] | | + + + + + | Tanika Jean | ECON | Unknown | | + + + + + Care Team Providers + +------+ + | Care Director Product Safety Name | Role | Phone | + +------+ + | Jose Angel Reina MD | PCP | | + +------+ + Encounter Details +--------+ + + + + | Date | Type | Department | Care Team | Description | +--------+ + + + + | 08/13/ | Abstract | [facility] [place] | [place], | | | 2015 | | PULMONARY [address] | Ling Frazier MD | | | | | [place], | | | | | | [place] [address] | | | | | | [phone] | | | +--------+ + + + [...] SING[place] | | | | | | [id number] | | | | | | | | +--------+ + + + + documented as of this encounter Visit Diagnoses Not on filedocumented in this encounter"
--- OUTSIDE RECORDS SUMMARY | ~2019-08-31 | XMS | Encounter Summary ---
Demographics + + + | Address | [address] | | | [place] [address] | + + + | Home Phone [...] #[address] | | | | | [address] | | + + + + + | Tanika Jean | ECON | Unknown | | + + + + + Care Team Providers + +------+ + | Care Payroll Master Name | Role | Phone | + [...] | Radiology | Diagnoses | Craig, | Ws Mri | | | | | Right | Karlos Gatica MD | [address] | | | | | shoulder | [address] | [place], | | | | | pain | [address] | [place] | | | | | Rotator cuff | [place], | [address] | | | | | tendonitis, | [place] [address] | Phone: | | | | | right | Phone: | [phone] | | | | | Rotator cuff | [phone] | Fax: | | | | | tear | Fax: | [phone] | | | | | arthropathy | [phone] | | | | | | of [...] | | +--------+--------+ + + + + Evaluate & Treat (Routine) [...] | shoulder | [address] | | | | n | pain | [address] | [place], | | | | | Rotator cuff | [place], | [place] [address] | | | | | tendonitis, | [place] [address] | Phone: | | | | | right | Phone: | [phone] | | | | | | [phone] | Fax: | | | | | | Fax: | [phone] | | | | | | [phone] | | +--------+ + + + + + Reason for Visit + + + | Reason | Comments | + + + | Shoulder Pain | | + + + Encounter Details +--------+---------+ + + + | Date | Type | Department | Care Team | Description | +--------+---------+ + + + | 03/22/ | Office | [facility] | Karlos Craig, | Right shoulder pain | | 2013 | Visit | PHYSIATRY [address] | MD [address] | (Primary Dx); | | | | [address] | [place] | Rotator cuff | | | | [place] | [address] | tendonitis, right; | | | | [address] | | Rotator cuff tear | | | | [phone] | | arthropathy of right | | | | | | shoulder; | | | | | | Claustrophobia | +--------+---------+ + + + Social History [...] + + + | Blood Pressure | 137/90 | 03/22/2014 1:25 PM | | | | | PST | | + + + + + | Pulse | 78 | 03/22/2014 1:25 PM | | | | | PST | | + + + + + | Temperature | - | - | | + + + + + | Respiratory Rate | 20 | 03/22/2014 1:25 PM | | | | | PST | | + + + + + | Oxygen Saturation | - | - | | + + + + + | Inhaled Oxygen | - | - | | | Concentration | | | | + + + + + | Weight | 99.8 kg (220 lb) | 03/22/2014 1:25 PM | | | | | PST | | + + + + + | Height | 175.3 cm (5' 9") | 03/22/2014 1:25 PM | | | | | PST | | + + + + + | Body Mass Index | 32.49 | 03/22/2014 1:25 PM | | | | | PST | | + + + + + documented in this encounter Patient Instructions Patient Instructions Karlos Craig MD - 03/22/2014 1:19 PM PSTIf you develop any signs of infection (e.g. Fever, chills, redness, warmth, drainage) seek emergent medical attention and inform the clinic. Feel free to use ice, massage, and stretch after your injections to day. Please avoid direct heat, over the injections site, for 3 days following injection. X-rays have been requested. Please go to the x-ray department after your appointment to co mplete these x-rays. The results of your x-rays will be reviewed at your next appointment. If your x-rays demonstrate any emergent results, the clinic will contact you. A MRI has been requested. Please complete the requested imaging. Within one week, you alexandru uld receive a call to schedule your MRI. If you have not heard from anyone within one week, please call the clinic. The results of your MRI will be reviewed at your next appointment. If your MRI demonstrates any emergent results, the clinic will contact you. Return to the clinic in 4 weeks to review the results of our MRI and response to injection. You may take valium 2 mg one table prior to your MRI. You may repeat x 1. Do not drive af ter taking. documented in this encounter Progress Notes Karlos Craig MD - 03/22/2014 1:26 PM PSTFormatting of this note might be different fro m the original. This office note has been dictated. Job ID# [id number] Referring Physician: Jose Angel Reina * Diagnosis: 1. Right shoulder pain 2. Rotator cuff tendonitis, right Procedure: Right shoulder subacromial steroid injection Procedure [...] contain ed 1 ml of DepoMedrol 40 mg/ml, and 4 ml of lidocaine 1%. The [...] space from a posterior late ral approach using a 25 gauge 1-1/2 inch needle. Sterile "no touch technique" was used for the entire procedure. The injection was tolerated without complication. After the injectio n the patient did report reduced pain. The patient was instructed that should they have any alarming signs or symptoms that they s hould seek emergent medical attention as well as inform my clinic. [facility], Karlos Gatica MD - 03/22/2014 12:00 AM [facility] [address] [place] [address] FAX: [phone] OFFICE VISIT PHYSICAL MEDICINE REHABILITATION PROGRESS NOTE PRIMARY CARE PROVIDER: Jose Angel Reina MD DATE OF SERVICE: 03/22/2014. PATIENT IDENTIFICATION: A 63-year-old male with a chief complaint of right shoulder pain. HISTORY OF PRESENT ILLNESS: Mr. Aguilar has a history of low back pain. He has previously b een treated for lumbalgia and lumbar facet arthritis. He reports that back pain continues t o be quiescent. He has no back pain complaints at this time. He has been seen in the past f or right shoulder pain. Previously he had physical therapy and right shoulder steroid injec tion. Shoulder injection offered him temporary relief lasting a few months. He reports that shoulder pain has now returned. He reports that physical therapy never offered him any fransisco g-lasting benefit. He reports that despite shoulder steroid injection that pain never fully did resolve. He indicates that pain has been worse again recently. Last shoulder steroid i njection was more than 4 months ago. He indicates that current shoulder pain resides in the right shoulder. Shoulder pain is a 4 or 5/10 on a numerical pain scale. He indicates that pain is constant in timing. Pain is increased with activity such as shoulder forward flexio n and shoulder abduction. He denies numbness, paresthesia or weakness in the right arm. He reports some inhibition of movement with shoulder abduction because of pain. He reports yair t he continues to do exercises as outlined by previous physical therapy. He indicates that the shoulder pain is interfering with the functions in life. He indicates that it makes it difficult to sleep. He cannot sleep on his right side because of shoulder pain. ALLERGIES 1. LEVOTHYROXINE. 2. CHANTIX. CURRENT MEDICATIONS 1. Albuterol. 2. Aspirin. 3. Excedrin. 4. Lipitor. 5. Carbamazepine 200 mg 4 times per day. 6. Vitamin B12. 7. Daliresp 500 mcg once daily. 8. Valium p.r.n. 9. Flonase nasal spray. 10. Advair Diskus inhaler. 11. Lisinopril 2.5 mg daily. 12. Glucophage 500 mg 2 times daily. 13. Oxygen 3 liters at night. 14. Requip 1 mg nightly. 15. Spiriva inhaler. 16. Senna-S p.r.n. REVIEW OF SYSTEMS Mr. Aguilar denies nausea, vomiting, diarrhea, constipation, fever, chills, shortness of br eath or chest pain. Denies skin breakdown or rash. All other review of systems negative. PHYSICAL EXAMINATION VITAL SIGNS: Heart rate 78, respiratory rate 20, blood pressure 137/90, weight 220 pounds, height 5 foot 9 inches. GENERAL: Appears to be in some discomfort, especially shoulder movement. He makes facial g rimace with shoulder abduction and forward flexion. HEENT: Extraocular muscles intact. Sclerae are clear. NECK: Limited range of motion. Spurling test negative. BACK: Slight asymmetry. No focal tenderness. Seated straight leg raise negative. Harley's test negative. EXTREMITIES: Exam reveals no clubbing or cyanosis. No edema. Right shoulder examination de monstrates Apley scratch test positive. Full cans and empty cans test positive. Drop arm ellen t negative. Impingement sign positive. DATABASE: No new imaging or laboratory data available for review at this time. ASSESSMENT 1. RIGHT SHOULDER PAIN, ICD-9 719.41. 2. RIGHT ROTATOR CUFF TENDINITIS, ICD-9 726.10. 3. 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 4. HISTORY OF CLAUSTROPHOBIA, ICD-9 300.29. PLAN: Mr. Aguilar will have right shoulder x-rays to evaluate for fracture, dislocation, s ubluxation, acromioclavicular arthritis. He will have right shoulder MR arthrogram. This whitney l evaluate for underlying rotator cuff tear. There is a high suspicion for rotator cuff tea r given his pain and clinical presentation. In an effort to offer him some reduction in lucinda n and management of symptoms at present he will have right shoulder subacromial steroid inj ection today. Previous steroid injection did not fully resolve symptoms, but offered him mckeon bstantial pain relief lasting a few months. He had right shoulder subacromial steroid injec tion performed in the clinic today. Please see separate procedure note. He will return to t he clinic in a couple of weeks' time to review the results of his x-ray and MRI. If there i s large full- thickness rotator cuff tear, likely will consider orthopedic surgery consulta tion. Thank you for allowing me to be involved in the care of your patient. If you have any quest ions regarding the care of Mr. Aguilar, please do not hesitate to call. Karlos Craig Jr, MD PURVI / PAP JOB #: [id number] cc: Peter Reina MD documented in this [...] [place] | | | | | | [address] | | | | | | | | +--------+ + + + + + +---------+--------+ + + | Name | Type | Priori | Associated Diagnoses | Order Schedule | | | | ty | | | + +---------+--------+ + + | XR Shoulder Right 2 | Imaging | Routin | Right shoulder | Expected: | | + Vw | | e | pain Rotator cuff | 03/22/2014, Expires: | | | | | tendonitis, right | 03/22/2015 | | | | | Rotator cuff tear | | | | | | arthropathy of right | | | | | | shoulder | | + +---------+--------+ + + + + +--------+ + + | Name | Type | Priori | Associated Diagnoses | Order Schedule | | | | ty | | | + + +--------+ + + | Ambulatory referral | Outpatient | Routin | Right shoulder | Ordered: 03/22/2014 | | to Physical Medicine | Referral | e | pain Rotator cuff | | | Rehab | | | tendonitis, right | | + + +--------+ + + documented as of this encounter Results MRI Shoulder Right Arthrogram [...] + | Blake, Rad Results In - 04/20/2014 1:44 PM PST [...] + | [facility] | | | [phone] | + +---------+ + + | [facility] | | | [phone] | + +---------+ + + FL Shoulder Inj Right for MRI or CT (04/20/2014 10:09 AM PST) + + | Specimen | + + | | + + + + + | Narrative | Performed At | + + + | FLUOROSCOPY GUIDED RIGHT GLENOHUMERAL JOINT INJECTION FOR MR | [facility] | | ARTHROGRAPHY 04/20/2014 10:05 AM CLINICAL HISTORY: Right | LAB | | shoulder MR arthrogram to evaluate for rotator cuff tear | | | COMPARISON: None available PROCEDURE: After explaining the | | | potential risks and benefits of the procedure to the patient, verbal | | | and written consent were obtained. With the patient in the supine | | | position, fluoroscopy was utilized to identify a suitable site for | | | right glenohumeral joint injection via an anterior approach. The | | | overlying skin was prepped and draped in sterile fashion, and | | | approximately 4 mL 1% Xylocaine utilized for local anesthesia with | | | fluoroscopic guidance. A 22-gauge, 3.5-inch spinal needle was | | | subsequently advanced into the right glenohumeral joint without | | | difficulty, and appropriate intraarticular positioning confirmed with | | | injection of approximately 1 mL Omnipaque 350 contrast. Approximately | | | 8 mL of a dilute gadolinium solution containing equal parts of | | | Omnipaque contrast and sterile saline were subsequently injected | | | under periodic fluoroscopic surveillance. Spot images were saved to | | | document needle positioning. The needle was removed, and hemostasis | | | assured with manual compression. The patient tolerated the procedure | | | well, and there were no immediate complications prior to transfer for | | | followup MR arthrography. IMPRESSION - FLUOROSCOPY GUIDED | | | RIGHT GLENOHUMERAL JOINT INJECTION FOR MR ARTHROGRAPHY DESCRIBED. | | | Dictated and Signed by: Fantasma Petit MD Electronically | | | signed: 04/20/2014 11:30 AM | | + + + + + | Procedure Note | + + | Bebeto Lozano Results In - 04/20/2014 11:33 AM PST FLUOROSCOPY GUIDED RIGHT GLENOHUMERAL | | JOINT INJECTION FOR MR ARTHROGRAPHY04/20/2014 10:05 AM CLINICAL HISTORY: Right shoulder | | MR arthrogram to evaluate for rotator cufftear COMPARISON: None available | | PROCEDURE: After explaining the potential risks and benefits of the procedureto the | | patient, verbal and written consent were obtained. With the patient inthe supine | | position, fluoroscopy was utilized to identify a suitable site forright glenohumeral | | joint injection via an anterior approach. The overlying skinwas prepped and draped in | | sterile fashion, and approximately 4 mL 1% Xylocaineutilized for local anesthesia with | | fluoroscopic guidance. A 22-gauge, 3.5-inchspinal needle was subsequently advanced into | | the right glenohumeral jointwithout difficulty, and appropriate intraarticular | | positioning confirmed withinjection of approximately 1 mL Omnipaque 350 contrast. | | Approximately 8 mL of adilute gadolinium solution containing equal parts of Omnipaque | | contrast andsterile saline were subsequently injected under periodic | | fluoroscopicsurveillance. Spot images were saved to document needle positioning. The | | needlewas removed, and hemostasis assured with manual compression. The patienttolerated | | the procedure well, and there were no immediate complications prior totransfer for | | followup MR arthrography. IMPRESSION - FLUOROSCOPY GUIDED RIGHT GLENOHUMERAL JOINT | | INJECTION FOR MRARTHROGRAPHY DESCRIBED. Dictated and Signed by: Fantasma Petit MD | | Electronically signed: 04/20/2014 11:30 AM | |surveillance. Spot images were saved to document needle positioning. The needle | |was removed, and hemostasis assured with manual compression. The patient | |tolerated the procedure well, and there were no immediate complications prior to | |transfer for followup MR arthrography. | | | |IMPRESSION - FLUOROSCOPY GUIDED RIGHT GLENOHUMERAL JOINT INJECTION FOR MR | |ARTHROGRAPHY DESCRIBED. | | | |Dictated and Signed by: Fantasma Petit MD | | Electronically signed: 04/20/2014 11:30 AM | + + + +---------+ + + | Performing | Address | City/State/Zipcode | Phone Number | | Organization | | | | + +---------+ + + | [facility] | | | [phone] | + +---------+ + + | [facility] | | | [phone] | + +---------+ + + documented in this encounter Visit Diagnoses + + | Diagnosis | + + | Right shoulder pain - Primary Pain in joint, shoulder region | + + | Rotator cuff tendonitis, right | + + | Rotator cuff tear arthropathy of right shoulder Traumatic arthropathy, shoulder | | region | + + | Claustrophobia Other isolated or specific phobias | + + documented in this encounter Administered Medications + + + +-------+------+ + | Medication Order | MAR | Action | Dose | Rate | Site | | | Action | Date | | | | + + + +-------+------+ + | methylPREDNISolone acetate | Given by | 03/22/20 | 40 mg | | Other | | (DEPO-MEDROL) 40 mg/mL injection | Other | 14 1:31 | | | (Comment | | 40 mg 40 mg, Intramuscular, | | PM PST | | | ) | | ONCE, [facility] 03/22/14 at 1400, For 1 | | | | | | | dose, Not for IV use., | | | | | | + + + +-------+------+ + +---+---+ | | | +---+---+ documented in this encounter
--- OUTSIDE RECORDS SUMMARY | ~2019-08-31 | XMS | Encounter Summary ---
Demographics + + + | Address | [address] | | | [place] [address] | + + + | Home Phone | | + + + | Preferred Language | Unknown | + + + | Marital Status | | + + + | Denominational Affiliation | 1061 | + + + [...] [address] | | | | | [address] | | + + + + + | Tanika Jean | ECON | Unknown | | + + + + + Care Team Providers + +------+ + | Care Logging Crew Supervisor Name | Role | Phone [...] Description | +--------+---------+ + + + | 06/16/ | Office | [facility] | [place], | Chronic obstructive | | 2015 | Visit | PULMONARY [address] | Ling Frazier MD | pulmonary disease, | | | | [place], | | unspecified COPD | | | | [place] [address] | | type ([facility]) (Primary | | | | [phone] | | Dx); Hypoxemia; | | | | | | Nocturnal [...] No; Counseling Given: No | | Comments: 06/17/15: "Down to 1/2 pack/day" [...] + + + | Blood Pressure | 110/64 | 06/17/2015 2:29 PM | | | | | PDT | | + + + + + | Pulse | 96 | 06/17/2015 2:29 PM | | | | | PDT | | + + + + + | Temperature | - | - | | + + + + + | Respiratory Rate | - | - | | + + + + + | Oxygen Saturation | 96% | 06/17/2015 2:29 PM | 3 L/M | | | | PDT | | + + + + + | Inhaled Oxygen | - | - | | | Concentration | | | | + + + + + | Weight | 97.3 kg (214 lb 9.6 | 06/17/2015 2:29 PM | | | | oz) | PDT | | + + + + + | Height | 175.3 cm (5' 9") | 06/17/2015 2:29 PM | | | | | PDT | | + + + + + | Body Mass Index | 31.69 | 06/17/2015 2:29 PM | | | | | PDT | | + + + + + documented in this encounter Patient Instructions Patient Instructions Ling Lowe MD - 06/17/2015 3:16 PM PDTDo walking oxygen t est here before you go. Stop the Duonebs and restart the albuterol nebulizers. Resume the Advair!!! Do not use the albuterol nebulizers and the ProAir more than 4 times daily combined. I am ordering the Nicotrol inhalers again. I want you to really work on quitting smoking. E lectronically signed by Ling Lowe MD at 06/17/2015 3:18 PM PDT documented in this encounter Progress Notes Ling Lowe MD - 06/17/2015 2:39 PM PDTFormatting of this note might be differe nt from the original. [facility] is [facility] 64 y.o. male patient of Jose Angel Reina MD here tod for follow up of COPD. At their last visit, we had added a prolonged steroid course to his amoxicillin in addition to the short course of prednisone he had already taken. He continued to get worse, and he e nded up in the hospital at [facility] for his exacerbation. While in the hospital, he was taken off of his Advair, and changed from albuterol nebulizers to albuterol/ipratropium neb ulizers (because his blood pressure or HR was labile?). He is feeling better since his hospital stay. He saw Dr. Reina after he left the hospit al and was given more prednisone as he still was having some breathing trouble. He is still on prednisone, taking a taper Dr. Reina gave him. He has 2 days left on this. He is currently on a regimen of Incruse 1 inhalation daily, Daliresp 500 mcg daily. He lockett s feel like this medication regimen is working for them. Currently he is using his rescue in haler, albuterol, 1-2 times a day. He is using his nebulizer, Duonebs, 3-4 times a day. He returns today for routine follow up. He has not been walking much since his discharge. He cannot manipulate the larger oxygen ta nk and the walker. He is not coughing very much, but not as much as he was. He has been evaluated for nocturnal oxygen and does use it. He is currently on 3 LPM at [facility]. He reports good compliance. He was discharged on oxygen at 3-4LPM during the daytime. He does not have symptoms of heartburn or reflux. Past Medical History Past Medical History Diagnosis Date COPD (chronic obstructive pulmonary disease) (HCC) Diabetes mellitus (HCC) HTN (hypertension) Seizure disorder (HCC) Restless legs syndrome Seasonal allergies PLMD (periodic limb movement disorder) Asthma Hyperlipidemia Hernia, hiatal Kidney stone Facet arthritis of lumbar region Ataxia Rotator cuff arthropathy Colon polyps 2015 due for repeat early 2017 Erectile dysfunction [...] Types: Cigarettes Smokeless tobacco: Never Used Comment: 06/17/15: "Down to 1/2 pack/day" Alcohol Use: No Drug Use: No Sexual Activity: None Other Topics Concern None Social History Narrative No known toxic chemical exposures. No known asbestos exposure. No known TB exposure. Has d ogs and cat in home. Allergies: Allergies Allergen Reactions Levofloxacin Varenicline Tartrate Chantix Medications: Outpatient Encounter Prescriptions as of 06/17/2015 Medication Sig Dispense Refill acetaminophen (TYLENOL) 650 [...] 6 hours as needed. 1 Inhaler 5 [DISCONTINUED] albuterol 2.5 mg/3 mL nebulizer solution Take 3 mLs by nebulization ever y 6 hours as needed for Wheezing or Shortness of Breath. Dx: 496 RINA: 99 months 360 vial 11 albuterol-ipratropium (DUONEB) 2.5-0.5 mg/3 mL SOLN [DISCONTINUED] amoxicillin-clavulanate (AUGMENTIN) 875-125 mg per tablet [DISCONTINUED] ascorbic acid (VITAMIN C) 500 mg tablet [...] Inhale 3 L into the lungs nightly. predniSONE (DELTASONE) 10 mg tablet 4 tabs orally daily for 3 days then decrease by 1 t ab every 3 days. 30 tablet 0 roflumilast [...] the lungs Daily . 1 Inhaler 11 [DISCONTINUED] zinc 50 MG TABS Take 50 mg by mouth Daily. No facility-administered encounter medications on file as of 06/17/2015. Review of Systems: General: []Weight loss/gain (over 10 lbs) [x]Fever/chills/sweats []Night sweats EENT: []Hearing loss []Vision loss/change [x]Sinus congestion/nasal drainage []Nosebleeds []Hoarseness Cardiac: []Chest pain []Palpitations/heart racing []Swelling of legs/ankles []Waking up at night s hort of breath []Difficulty sleeping flat Gastrointestinal: []Nausea/vomiting []Difficulty swallowing []Heartburn/acid reflux []Loss of appetite []Abd ominal pain Urologic: []Blood in urine []Frequent urination at night []Burning/painful urination []Difficulty wi th urination Objective BP 110/64 mmHg | Pulse 96 | Ht 1.753 m (5' 9") | Wt 97.342 kg (214 lb 9.6 oz) | BMI 31.68 k g/m2 | SpO2 96% 3L General Appearance: Alert, cooperative, no distress, appears [...] disease, unspecified COPD type (HCC) J44.9 496 Recent prol onged exacerbation, and finishing prednisone taper. He seems close to baseline today. I emphasized need to: resume Advair, taper oxygen appropriately, and quit smoking! 2. Hypoxemia R09.02 799.02 On oxygen 3L on arrival, and was told to use 3-4L on discharge, but his saturation is too high today. I will recheck an ambulating oximetry. Ambulating oximetry- Clinic 3. 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 If he does not h ave much improvement, we will recheck this. G47.36 327.26 4. Tobacco abuse Z72.0 305.1 Ongoing. He feels ready to quit, but cannot seem to commit. He did request the Nicotrol again, and I ordered it, but noted he really just needs to decide he is going to do it. Plan 1.Check ambulating oximetry today. 2. Stop the Duonebs and restart the albuterol nebulizers. 3. Resume Advair 250 mcg 1 inhalation twice daily. 4. Do not use the albuterol nebulizers and the ProAir more than 4 times daily combined. 5. I reordered the Nicotrol inhalers to use. He was advised to call if new pulmonary symptoms were to develop. Return to clinic in 4 weeks, or sooner with concerns. CC: Jose Angel Reina MD Portions of this report were transcribed using voice recognition software. Every effort wa s made to ensure accuracy; however, inadvertent computerized probation manager errors may be pre sent. documented in [...] [place] | | | | | | [address] | | | | | | | | +--------+ + + + + + + +--------+ + + | Name | Type | Priori | Associated Diagnoses | Order Schedule | | | | ty | | | + + +--------+ + + | Ambulating oximetry- | Respiratory | ANN-MARIE | Chronic | Expected: | | Clinic | Care | | obstructive | 06/17/2015, Expires: | | | | | pulmonary disease, | 06/16/2016 | | | | | unspecified COPD | | | | | | type (HCC) | | | | | | Hypoxemia | | + + +--------+ + + documented as of this encounter Procedures + +--------+ + + + | Procedure Name | Priori | Date/Time | Associated Diagnosis | Comments | | | ty | | | | + +--------+ + + + | IMAGING REPORT - | | 06/06/2015 | | Results for this | | EXTERNAL SCAN | | 12:00 AM | | procedure are in the | | | | PST | | results section. | + +--------+ + + + | LABS - EXTERNAL SCAN | | 06/06/2015 | | Results for this | | | | 12:00 AM | | procedure are in the | | | | PST | | results section. | + +--------+ + + + documented in this encounter Results LABS - EXTERNAL SCAN (06/06/2015 12:00 AM PST) + + + | Narrative | Performed At | + + + | Ordered by an | | | unspecified provider. | | + + + IMAGING REPORT - EXTERNAL SCAN (06/06/2015 12:00 AM PST) + + + | Narrative | Performed At | + + + | Ordered by an | | | unspecified provider. 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
--- OUTSIDE RECORDS SUMMARY | ~2019-08-31 | XMS | Encounter Summary ---
Demographics + + + | Address | [address] | | | [place] [address] | + + + | Home Phone | | + + + | Preferred Language | Unknown | + + + | Marital Status | | + + + | Restorationist Affiliation | 1061 | + + + | Race | Unknown | + + + | Ethnic Group | Unknown | + + + Author + + + | Author | [facility] | | | and [place] | + + + | Organization | [facility] | | | and [place] | + + + | Address | Unknown | + + + | Phone | Unavailable | + + + Support + + + + + | Name | Relationship | Address | Phone | + + + + + | Palak Aguilar | ECON | [address] | | | | | [address] | | + + + + + | Tanika Jean | ECON | Unknown | | + + + + + Care Team Providers + +------+ + | Care Airplane Pilot Helper Name | Role | Phone | [...] | | | hazards to | | [address] Phone: | | | | | health | | [phone] | | | | | Centrilobula | | Fax: | | | | | r emphysema | | [phone] | | | | | ([facility]) | | | | | | | Procedures | | | | | | | BRONCHOSCOPY | | | | | | | | | | | | | | ELECTROMAGNE | | | | | | | TIC | | | | | | | NAVIGATION | | | | | | | [[id number]] | | | +--------+--------+ + + + + Encounter Details +--------+ + + + + | Date | Type | Department | Care Team | Description | +--------+ + + + + | 08/14/ | Anesthesia | [facility] | Hugo Yeung | | | 2019 | Event | [facility] | [place] [address] | | | | | INTRA [address] | | | | | [address] [place], [place] | [place], [place] | | | | | [address] | [address] | | | | | [phone] | [phone] | | | | | | | | | | | | Rob Castillo MD | | | | | | [address] | | | | | | [place] [address] | | | | | | [phone] | | | | | | | [...] 08/15/19 1037 by | | eral | qldr-klk-esvznv catheter system; | Venice Dunn RN | [...] | | | | | Noel Al[place]ran [place] | | | | | | [id number] | | | | | | | [...] CRNA Authorizing | | | provider: Hugo Yueng CRNA Please see | | | intraoperative [...]
--- OUTSIDE RECORDS SUMMARY | ~2019-08-31 | XMS | Encounter Summary ---
Demographics + + + | Address | [address] | | | [place] [address] | + + + | Home Phone [...] [address] | | | | | [address] | | + + + + + | Tanika Jean | ECON | Unknown | | + + + + + Care Team Providers + +------+ + | Care Visitor Services Coordinator Name | Role | Phone [...] Frazier MD | | | | | [place], | | | | | | [place] [address] | | | | | | [phone] | | | +--------+--------+ + + + [...] | | | | | [place] | | | | | | [address] | | | | | | | | +--------+ + + + + documented as of this encounter Visit Diagnoses + + | Diagnosis | + + | Chronic obstructive pulmonary disease, unspecified COPD type (HCC) - Primary | + + documented in this encounter
--- OUTSIDE RECORDS SUMMARY | ~2019-08-31 | XMS | Encounter Summary ---
Demographics + + + | Address | [address] | | | [place] [address] | + + + | Home Phone [...] [address] | | | | | [address] | | + + + + + | Tanika Jean | ECON | Unknown | | + + + + + Care Team Providers + +------+ + | Care Electrician Rectifier Maintenance Name | Role | Phone | + [...] Description | +--------+--------+ + + + | 06/02/ | Refill | [facility] | [place], | Medication Refill | | 2015 | | PULMONARY [address] | Ling Frazier MD | | | | | [place], | | | | | | [place] [address] | | | | | | [phone] | | | +--------+--------+ + + + [...] [place] | | | | | | [id number] | | | | | | | [...]
--- OUTSIDE RECORDS SUMMARY | ~2019-08-31 | XMS | Encounter Summary ---
Demographics + + + | Address | [address] | | | [place] [address] | + + + | Home Phone [...] | Author | [facility] | | | and [place] | + + + | Organization | [facility] | | | and [place] | + + + | Address | Unknown | + + + | Phone | Unavailable | + + + Support + + + + + | Name | Relationship | Address | Phone | + + + + + | Palak Aguilar | ECON | [address] | | | | | [address] | | + + + + + | Tanika Jean | ECON | Unknown | | + + + + + Care Team Providers + +------+ + | Care Winder Fixer Name | Role | Phone | + [...] Frazier MD | | | | | [place], | | | | | | [place] [address] | | | | | | [phone] | | | +--------+--------+ + + + [...] | | 2019 | | | [address] | | | | | | [place] [facility] | | | | | | [id number] | | | | | | | | +--------+ + + + + documented as of this encounter Visit Diagnoses + + | Diagnosis | + + | COPD (chronic obstructive pulmonary disease) (HCC) - Primary Chronic airway | | obstruction, not elsewhere classified | + + documented in this encounter"
--- OUTSIDE RECORDS SUMMARY | ~2019-08-31 | XMS | Encounter Summary ---
Demographics + + + | Address | [address] | | | [place] [address] | + + + | Home Phone | | + + + | Preferred Language | Unknown | + + + | Marital Status | | + + + | Yarsanism Affiliation | 1061 | + + + | Race | Unknown | + + + | Ethnic Group | Unknown | + + + Author + + + | Author | [facility] | | | and [place] | + + + | Organization | [facility] | | | and [place] | + + + | Address | Unknown | + + + | Phone | Unavailable | + + + Support + + + + + | Name | Relationship | Address | Phone | + + + + + | Palak Aguilar | ECON | [address] | | | | | [address] | | + + + + + | Tanika Jean | ECON | Unknown | | + + + + + Care Team Providers + +------+ + | Care Pin Game Machine Inspector Name | Role | Phone | [...] RN | obstructive | | | | [place], | | pulmonary disease) | | | | [place] [address] | | ([facility]); Nocturnal | | | | [phone] | | hypoxemia | +--------+ + + [...] | | | | | [place] | | | | | | [address] | | | | | | | | +--------+ + + + + documented as of this encounter Visit Diagnoses + + | Diagnosis | + + | COPD (chronic obstructive pulmonary disease) (HCC) Chronic airway obstruction, not | | elsewhere classified | + + | Nocturnal hypoxemia Hypoxemia | + + documented in this encounter"
--- OUTSIDE RECORDS SUMMARY | ~2019-08-31 | XMS | Encounter Summary ---
Demographics + + + | Address | [address] | | | [place] [address] | + + + | Home Phone | | + + + | Preferred Language | Unknown | + + + | Marital Status | | + + + | Christian Affiliation | 1061 | + + + [...] [address] | | | | | [address] | | + + + + + | Tanika Jean | ECON | Unknown | | + + + + + Care Team Providers + +------+ + | Care Programmer Analyst Health It Name | Role | Phone | + [...] | | | | | [facility] | [place] [address] | | | | | [place] [address] | | | | | | [phone] | | | +--------+ + + + [...] [place] | | | | | | [address] | | | | | | | [...] for comparison only - no result from [place]. | [facility] | + + + + +---------+ + + | Performing | Address | City/State/Zipcode | Phone Number | | Organization | | | | + +---------+ + + | [facility] | | | | + +---------+ + + documented in this encounter Visit Diagnoses Not on filedocumented in this encounter"
--- OUTSIDE RECORDS SUMMARY | ~2019-08-31 | XMS | Encounter Summary ---
Demographics + + + | Address | [address] | | | [place] [address] | + + + | Home Phone | | + + + | Preferred Language | Unknown | + + + | Marital Status | | + + + | Mandaen Affiliation | 1061 | + + + | Race | Unknown | + + + | Ethnic Group | Unknown | + + + Author + + + | Author | [facility] | | | and [place] | + + + | Organization | [facility] | | | and [place] | + + + | Address | Unknown | + + + | Phone | Unavailable | + + + Support + + + + + | Name | Relationship | Address | Phone | + + + + + | Palak Daugherty | ECON | [address] | | | | | [address] | | + + + + + | Tanika Jean | ECON | Unknown | | + + + + + Care Team Providers + +------+ + | Care Aerial Photograph Interpreter Name | Role | Phone | + [...] + + | 07/11/ | Office | [facility] | Karlos Fonseca, | Right shoulder pain | | 2015 | Visit | PHYSIATRY [address] | MD [address] | (Primary Dx); | | | | [address] | [place], [place] | Rotator cuff tear | | | | [place], [place] | [address] | arthropathy of right | | | | [address] | | shoulder; Erectile | | | | [phone] | | dysfunction, | | | | [...] MD - 07/11/2014 1:48 PM PDT [facility] [address] [facility] [address] OFFICE NOTE KARLOS FONSECA JR, MD Patient: KEVIN DAUGHERTY Admitting: MR #: [id number] LOC: PT TYPE: Adm Date: 07/11/2014 : [...] ALLERGIES: LEVOFLOXACIN and CHANTIX. CURRENT MEDICATIONS: Albuterol. Cgbtfiy-pewdfipymbhwz-agkaqnrs 1 tablet every 6 hours as needed. [...] Transcribed on 07/11/2014 14:16:43 by stacy job# [id number] Confirmation #: [id number] cc: LYN FIELDS MD 3:2 0 PM [...] | | | | | [place] | | | | | | [phone] | | | | | | | [...]
--- OUTSIDE RECORDS SUMMARY | ~2019-08-31 | XMS | Encounter Summary ---
Demographics + + + | Address | [address] | | | [place] [address] | + + + | Home Phone | | + + + | Preferred Language | Unknown | + + + | Marital Status | | + + + | Mandaen Affiliation | 1061 | + + + | Race | Unknown | + + + | Ethnic Group | Unknown | + + + Author + + + | Author | [facility] | | | and [place] | + + + | Organization | [facility] | | | and [place] | + + + | Address | Unknown | + + + | Phone | Unavailable | + + + Support + + + + + | Name | Relationship | Address | Phone | + + + + + | Palak Aguilar | ECON | [address] | | | | | [address] | | + + + + + | Tanika Jean | ECON | Unknown | | + + + + + Care Team Providers + +------+ + | Care Quality Process Auditor Name | Role | Phone | [...] | Required | | ataxia (HCC) | [address] | | | | | | | [address] | | | [address] | | | | | | | [place] | | | | | | | [place] [address] | | | | | | | Phone: | | | | | | | [phone] | | | | | | | Fax: | | | | | | | [phone] | | +--------+ + + + + + Reason for Visit + + + | Reason | Comments | + + + | Follow-up | Review MRI results | + + + Encounter Details +--------+---------+ + + + | Date | Type | Department | Care Team | Description | +--------+---------+ + + + | 01/19/ | Office | [facility] | Roderick Williamson MD [address] | Gait abnormality | | 2012 | Visit | NEUROLOGY [place] | [address] | (Primary Dx); | | | | [address] [facility], | [address] [place], | Cerebellar ataxia | | | | [address] [facility] | [place] [address] | ([facility]); Intention | | | | [place] [address] | [phone] | tremor | | | | [phone] | | | +--------+---------+ + + + [...] to be seen by ataxia specialist at [facility]. If you have any questions please let me know.El ectronically signed by Roderick Williamson MD at 01/19/2013 2:03 PM PDT documented in this encounter Progress Notes Roderick Williamson MD - 01/19/2013 3:45 PM PDTFormatting of this note might be different from the o riginal. Neurology Clinic Follow Up Note PCP: Jose [...] pper. - I would refer him to [facility] to see ataxia specialist for [...] in this encounte r Plan of Treatment +--------+ + + + + | Date | Type | Specialty | Care Team | Description | +--------+ + + + + | 11/16/ | Appointment | Radiology | Alfonso Wallace MD | | | 2020 | | | [address] | | | | | | [place] | | | | | | [id number] | | | | | | | | +--------+ + + + + + +------+--------+ + + | Name | Type | Priori | Associated Diagnoses | Order Schedule | | | | ty | | | + +------+--------+ + + | Copper, 24Hr, Urine | Lab | Routin | Cerebellar ataxia | 1 Occurrences | | | | e | (HCC) | starting 01/19/2013 [...] | Performed: [facility], [address] | | [address] | | | | [place], [place] | | MEDICAL | | | | [id number]: [id number] | | CENTER - | | | [...] + | [facility] | [address] | [place], [place] | [phone] | | [facility] | | [address] | | | - LABORATORY | | | | + + + + + | [facility] | [address] | [place], [place] | | | [facility] | | [address] | | | - LABORATORY | [...] on the Josr | uIU/mL | [facility] | | | | [...] + | [facility] | [address] | [place] | [phone] | | [facility] | | [address] | | | - LABORATORY | | | | + + + + + | [facility] | [address] | [place], [place] | | | [facility] | | [id number] [place] [address] | | | - LABORATORY | | [...] managementdecisions. | | | | | | [facility] is authorized | | | | | | under | | | | | | ClinicalLaboratory | | | | | | Improvement Amendments | | | | | | (CLIA) to perform | | | | | | highcomplexity testing. | | | | | | Testing Performed: [facility], | | | | | | [address], | | | | | | [place] [address] | | | | | | CLIA: [id number] | | | | + + + + + + + + | Specimen | + + | Blood specimen | | (specimen) | + + + + + + + | Performing | Address | City/State/Zipcode | Phone Number | | Organization | | | | + + + + + | [facility] | [address] | [place], [place] | [phone] | | [facility] | | [address] | | | - LABORATORY | | | | + + + + + | [facility] | [address] | [place], [place] | | | [facility] | | [address] [place] [address] | | | - LABORATORY | | [...] [facility] | | | | | | ST[facility]ora [...] + | [facility] | [address] | [place] | [phone] | | [facility] | | [address] | | | - LABORATORY | | | | + + + + + | [facility] | [address] | [place] | | | [facility] | | [address] | | | - LABORATORY | [...] | | | | | | [facility] | | | | | | MEDICAL [...] | 0.84 | 0.60 - 1.30 | [facility] | | | | | mg/dL | [facility] | | | | | | MEDICAL | | | | | | CENTER - | | | | | | LABORATORY | | + + + + + + | Estimated | >60Comment: For | >60 mL/min/A | [facility] | | | GFR | -Americans, | [...] + | [facility] | [address] | [place], [place] | [phone] | | [facility] | | [address] | | | - LABORATORY | | | | + + + + + | [facility] | [address] | [place], [place] | | | [facility] | | [address] [place] [address] | | | - LABORATORY | | [...] | | | | M/uL | [facility] | | | | [...] + | [facility] | [address] | [place], [place] | [phone] | | [facility] | | [address] | | | - LABORATORY | | | | + + + + + | [facility] | [address] | [place], [place] | | | [facility] | | [address], [facility] | | | - LABORATORY | [...]
--- OUTSIDE RECORDS SUMMARY | ~2019-08-31 | XMS | Encounter Summary ---
Demographics + + + | Address | [address] | | | [place] [address] | + + + | Home Phone [...] [place] | | | | | [address] | | + + + + + | Tanika Jean | ECON | Unknown | | + + + + + Care Team Providers + +------+ + | Care Enrichment Assistant Name | Role | Phone | + +------+ + PCP | Unavailable | + +------+ + Encounter Details +--------+ + + + + | Date | Type | Department | Care Team | Description | +--------+ + + + + | 01/11/ | Abstract | [facility] | Madeleine Connelly | | | 2011 | | [facility] | MD [address] | | | | | PATIENT PLACEMENT 6 | Leonard Harvey [place] | | | | | [address] [place], | [place] [address] | | | | | [place] [address] | [phone] | | | | | [phone] | | | +--------+ + + + [...]
--- OUTSIDE RECORDS SUMMARY | ~2019-08-31 | XMS | Encounter Summary ---
Demographics + + + | Address | [address] | | | [place] [address] | + + + | Home Phone [...] #[address] | | | | | [address] | | + + + + + | Tanika Jean | ECON | Unknown | | + + + + + Care Team Providers + +------+ + | Care Smalltalk Developer Name | Role | Phone | + +------+ + | Jose Angel Reina MD | PCP | | + +------+ + Reason for Visit + + + | Reason | Comments | + + + | Shortness of Breath | follow up | + + + Encounter Details +--------+---------+ + + + | Date | Type | Department | Care Team | Description | +--------+---------+ + + + | 12/28/ | Office | [facility] | [place], | COPD (chronic | | 2013 | Visit | PULMONARY [address] | Ling Frazier MD | obstructive | | | | [place], | | pulmonary disease) | | | | [place] [address] | | (Primary Dx); | | | | [phone] | | Nocturnal hypoxemia | | | | | | due to emphysema | | | | | | ([facility]); Periodic limb | | | | | | movement disorder; | | | | | | Tobacco abuse; Need | | | | | | for influenza | | | | | [...] | | Comments: currently smoking up to 1ppd, debating on the e cigarette | + + + + +---------+ [...] + + + | Blood Pressure | 128/68 | 12/28/2013 1:11 PM | | | | | PDT | | + + + + + | Pulse | 91 | 12/28/2013 1:11 PM | | | | | PDT | | + + + + + | Temperature | - | - | | + + + + + | Respiratory Rate | - | - | | + + + + + | Oxygen Saturation | 95% | 12/28/2013 1:11 PM | R/A | | | | PDT | | + + + + + | Inhaled Oxygen | - | - | | | Concentration | | | | + + + + + | Weight | 98.7 kg (217 lb 8 | 12/28/2013 1:11 PM | | | | oz) | PDT | | + + + + + | Height | - | - | | + + + + + | Body Mass Index | 32.12 | 12/20/2013 11:36 AM | | | | | PDT | | + + + + + documented in this encounter Patient Instructions Patient Instructions Ling Lowe MD - 12/28/2013 1:29 PM [facility] offers free smoking cessation classes. We want to support you in you r decision to quit and help you have a better chance of success. Quitting smoking is not eas y, but you can do it. The classes are offered quarterly from 5-6pm, 3 nights in a row. For registration or more information, please call Foreign Boswell R.N. at We will give you your flu shot today. How To Quit Smoking Smoking is one [...] So, don't give u p! Go Cold [place]: Most ex-smokers quit cold turkey. Trying to [...] your behavior and peer support. Call the [facility] Quitline for more information. 003-TPRH-KJY (601-657-7617). Low-cost or free programs are offered by many hospitals, local chapters of the [place] [employer] (061-217-1988) a nd the [place] [employer] (175-406-3603). Support at home is important too. Non-smokers can help by offering praise and encouragement. If the smoker fails to quit, encourage them to try again! Uvog-Mkp-Ixxkzgo Medicines: For those who can't quit on [...] stop using these and see your doctor. Prescription Medicines: After evaluating your smoking patterns and prior attempts at quitting, your doctor may offe r a prescription medicine such as bupropion (Zyban, Wellbutrin), varenicline (Chantix, Tabiona ix), a niocotine inhaler or nasal spray. Each has its unique advantage and side effects whic h your doctor can review with you. Health Benefits Of Quitting: The benefits of [...] smoking, visit the following links: National Cancer [place] , Clearing the Air, Quit Smoking Today - an online mejias klet. http://www.smokefree.gov/pubs/clearing_the_air.pdf Smokefree.gov http://smokefree.gov/ QuitNet http://www.quitnet.com/ 4705-9429 Rudy Min, [address] [facility], [place] [address]. All rights reserve d. This information is not intended as a substitute for professional medical care. Always fo llow your healthcare professional's instructions. documented in this encounter Progress Notes Ling Lowe MD - 12/28/2013 1:16 PM PDTFormatting of this note might be differe nt from the original. Pulmonary Follow Up HPI Nazario Aguilar Sr. is a 63 y.o. male patient of Jose Angel Reina here today f or follow up of COPD. At their last visit, we had continued him on the Advair, Spiriva and Daliresp. Since their last visit he feels like he has been doing doing okay. He has not had any acute illnesses. He is currently on a regimen of Advair 500mcg twice daily, Spiriva one capsule inhaled dante y, and Daliresp. He does feel like this medication regimen is working for them. Currently yandel romero is using his rescue inhaler, Ventolin, 1 times a day. He is using his nebulizer, albuter ol, 3 times a day. He returns today for routine follow up. Currently he is able to walk 4 blocks at his own pace on level ground, using his walker. He is exercising regularly. He just finished physical therapy at [facility]. He was given e xercises to do when he was discharged, and he reports he is doing them twice daily for 15 mi nutes. He is not doing any regular walking. He does cough chronically, and produces mucous sometimes. He has not had hemoptysis. He has been evaluated for nocturnal oxygen and does use it. He is currently on 3 LPM at [facility]. He reports good compliance. He is taking ropinirole 1mg for his restless legs nightly. He notes that his nightly sympto ms seem to be well controlled, but he still gets some symptoms during the daytime. His does not notice him moving around a lot at night either. Past Medical History Past Medical History Diagnosis [...] Never Used Comment: currently smoking up to 1ppd. He never did call the quitline. Alcohol Use: No Drug Use: No Sexually Active: None Other Topics Concern None Social History Narrative No known toxic chemical exposures. No known asbestos exposure. No known TB exposure. Has d ogs and cat in home. Allergies: Allergies Allergen Reactions Levaquin Varenicline Tartrate Chantix Medications: Outpatient Encounter Prescriptions as of 12/28/2013 Medication Sig Dispense Refill Acetaminophen (TYLENOL EXTRA STRENGTH PO) TABS. As needed albuterol (PROAIR HFA) 90 mcg/puff inhaler Inhale 2 puffs into the lungs every 6 hours as needed. albuterol 2.5 mg/3 mL nebulizer solution Take 3 mLs by nebulization every 6 hours as ne eded for Wheezing or Shortness of Breath. Dx: 496 RINA: [facility] vial 4 aspirin 325 mg tablet Take 325 mg by mouth Daily. atorvaSTATin (LIPITOR) 40 mg tablet Take 80 mg by mouth nightly. carBAMazepine (EPITOL) 200 mg tablet Take 200 mg by mouth 4 times daily. Cyanocobalamin (B-12) 1000 MCG CAPS Take 1,000 mg by mouth Daily. DALIRESP 500 MCG tablet TAKE ONE TABLET BY MOUTH ONCE DAILY 30 tablet 5 diazepam (VALIUM) 2 mg [...] capsule 10 Review of Systems Constitutional: Denies fever,andchills. He has been losing weight. He gets sweaty at times even if it is cool. Eyes: Denies vision change and eye irritation. ENT: Denies earache, decreased hearing, nasal congestion, nosebleeds, sore throat, and john rseness. Resp: See HPI. CV: Denies chest pain, palpitations, syncope, and peripheral edema. GI: Denies heartburn, nausea, vomiting, and abdominal pain. He gets occasional abdominal p ain. : Denies difficulty emptying bladder. Objective BP 128/68 | Pulse 91 | Wt 98.657 kg (217 lb 8 oz) | SpO2 95% General Appearance: Alert, cooperative, no distress, appears stated age Head: Normocephalic, without obvious abnormality, atraumatic Eyes: PERRL, conjunctiva clear, no scleral icterus, EOM's intact Ears: Normal TM's, external auditory canals, slightly diminsihed acuity Nose: Nares normal, septum midline, mucosa edematous with some yellow tinged mucous Mouth: No oral lesions or exudate Neck: [...] 1. COPD (chronic obstructive pulmonary disease) - Stable on current regimen. He does not ne ed to use the nebulizer unless he needs to, though on current regimen of three times daily, he is not wheezing today. 2. 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 3. Periodic limb movement disorder - Symptoms controlled on 1mg nightly of ropinirole. 4. Tobacco abuse - Ongoing. We discussed quitting today. He is not yet firmly committed to this. 5. Need for influenza vaccination - Given today. Plan 1.Continue Advair, Spiriva and Daliresp. 2.Continue nocturnal oxygen at 3L. Consider recheck in 3 months., 3.Continue ropinirole at 1mg nightly. 4. I referred him to our smoking cessation classes. I advised against hypnosis as there is no evidence for this. 5. Influenza vaccine was given today. He was advised to call if new pulmonary symptoms were to develop. Return to clinic in 3 months, or sooner with concerns. CC: Jose Angel Reina Portions of this report were transcribed using voice recognition software. Every effort wa s made to ensure accuracy; however, inadvertent computerized wave guide assembler errors may be pre sent. Electronically signed by: Ling Lowe MD 12/28/2013 13:16 documented in t his encounter Plan of Treatment +--------+ + + + + | Date | Type | Specialty | Care Team | Description | +--------+ + + + + | 11/16/ | Appointment | Radiology | Alfonso Wallace MD | | | 2019 | | | [address] | | | | | | [place] | | | | | | [address] | | | | | | | [...] influenza | + + documented in this encounter"
--- OUTSIDE RECORDS SUMMARY | ~2019-08-31 | XMS | Encounter Summary ---
Demographics + + + | Address | [address] | | | [place] [address] | + + + | Home Phone [...] | Palak Trejo Aguilar | ECON | [id number] | | | | | [address] | | + + + + + | Tanika Jean | ECON | Unknown | | + + + + + Care Team Providers + +------+ + | Care Portrait Consultant Name | Role | Phone | + +------+ + | No, Physician | PCP | Unavailable | + +------+ + Reason for Referral Diagnostic/Screening (Routine) + +--------+ + + + + | Status | Reason | Specialty | Diagnoses / | Referred By | Referred To | | | | | Procedures | Contact | Contact | + +--------+ + + + + | Authorized | | Radiology | Diagnoses | [place], | [facility] [address] | | | | | Pneumonia | MD Alfonso | [address] | | | | | of right | [address] | | | | | upper lobe | [address] | [address] | | | | | due to | [place] | [place], [place] | | | | | methicillin | [place], [place] | [address] | | | | | susceptible | [address] | Phone: | | | | | Staphylococc | Phone: | [phone] | | | | | us aureus | [phone] | Fax: | | | | | (MSSA) ([facility]) | Fax: | [phone] | | | | | Procedures | [phone] | | | | | | CT Chest | | | | | | | wo Contrast | | | | | | | CT Chest wo | | | | | | | Contrast | | | + +--------+ + + + + Encounter Details +--------+ + + + + | Date | Type | Department | Care Team | Description | +--------+ + + + + | 08/16/ | Orders Only | [facility] | Alfonso Wallace MD | Pneumonia of right | | 2019 | | PULMONOLOGY [address] | [address] | upper lobe due to | | | | [address] | [place], [place] | methicillin | | | | [place], [place] | [address] | susceptible | | | | [address] | | Staphylococcus | | | | [phone] | | aureus (MSSA) (HCC) | | | | | | (Primary Dx) | +--------+ + + + + Social [...] [place] | | | | | | [address] | | | | | | | | +--------+ + + + + + +---------+--------+ + + | Name | Type | Priori | Associated Diagnoses | Order Schedule | | | | ty | | | + +---------+--------+ + + | CT Chest wo Contrast | Imaging | Routin | Pneumonia of right | Expected: | | | | e | upper lobe due to | 11/17/2019, Expires: | | | | | methicillin | 08/16/2020 | | | | | susceptible | | | | | | Staphylococcus | | | | | | aureus (MSSA) ([facility]) | | + +---------+--------+ + + documented as of this encounter Visit Diagnoses + + | Diagnosis | + + | Pneumonia of right upper lobe due to methicillin susceptible Staphylococcus aureus | | (MSSA) ([facility]) - Primary | + + documented in this encounter"
--- OUTSIDE RECORDS SUMMARY | ~2019-08-31 | XMS | Encounter Summary ---
Demographics + + + | Address | [address] | | | [place] [address] | + + + | Home Phone [...] [address] | | | | | [address] | | + + + + + | Tanika Jean | ECON | Unknown | | + + + + + Care Team Providers + +------+ + | Care Coat Agent Name | Role | Phone | [...] Frazier MD | | | | | [place], | | | | | | [place] [address] | | | | | | [phone] | | | +--------+--------+ + + + [...] | | | | | [place] | | | | | | [address] | | | | | | | [...]
--- OUTSIDE RECORDS SUMMARY | ~2019-08-31 | XMS | Encounter Summary ---
Demographics + + + | Address | [address] | | | [place] [address] | + + + | Home Phone [...] | + + + + + | Plaak Gipsonock | ECON | [id number] | | | | | [address] | | + + + + + | Tanika Jean | ECON | Unknown | | + + + + + Care Team Providers + +------+ + | Care Infrastructure Director Name | Role | Phone | [...] | | | | | | [place] [address] | | | | | | [phone] | | | +--------+--------+ + + + [...] | | | | | [place] | | | | | | [address] | | | | | | | [...]
--- OUTSIDE RECORDS SUMMARY | ~2019-08-31 | XMS | Encounter Summary ---
Demographics + + + | Address | [address] | | | [place] [address] | + + + | Home Phone [...] #[address] | | | | | [address] | | + + + + + | Tanika Jean | ECON | Unknown | | + + + + + Care Team Providers + +------+ + | Care Hoof Trimmer Name | Role | Phone | + [...] + + | 05/24/ | Office | [facility] | Chrissy, | COPD exacerbation | | 2012 | Visit | PULMONARY [address] | Ling Frazier MD | ([facility]) (Primary Dx); | | | | [place], | | Tobacco abuse; | | | | [place] [address] | | Nocturnal hypoxemia; | | | | [phone] | | Restless legs | | | [...] where you smoke. Put one on the Kuponjo rator and one on your car dashboard. 5062-9623 [facility], [address] [place] [address]. All rights reserve d. This information is [...] his portable oxygen, he had an overni ght oximetry rechecked. I recommended he remain on [...] | | | | | [place] | | | | | | [address] [...] + | Transcriptions | + + | Helio Coronado - 10/12/2012 12:00 AM PDT | + [...]
--- OUTSIDE RECORDS SUMMARY | ~2019-08-31 | XMS | Encounter Summary ---
Demographics + + + | Address | [address] | | | [place] [address] | + + + | Home Phone [...] [address] | | | | | [address] | | + + + + + | Tanika Jean | ECON | Unknown | | + + + + + Care Team Providers + +------+ + | Care Manager Intranet Name | Role | Phone | + [...] + + | 03/16/ | Office | [facility] | [place], | COPD (chronic | | 2012 | Visit | PULMONARY [address] | Ling Frazier MD | obstructive | | | | [place], | | pulmonary disease) | | | | [place] [address] | | (HCC) (Primary Dx); | | | | [phone] | | Tobacco abuse; | | | [...] So, don't give u p! Go Cold [place]: Most ex-smokers quit cold turkey. Trying to [...] your behavior and peer support. Call the [facility] Quitline for more information. 376-QVRI-PTJ (998-900-9333). Low-cost or free programs are offered by many hospitals, local chapters of the [place] [employer] (253-441-2927) a nd the [place] [employer] (226-110-6161). Support at home is important too. Non-smokers can help by offering praise and encouragement. If the smoker fails to quit, encourage them to try again! Xeew-Uts-Atrrfrz Medicines: For those who can't quit on [...] smoking, visit the following links: National Cancer [place] , Clearing the Air, Quit Smoking Today - an online mejias klet. http://www.smokefree.gov/pubs/clearing_the_air.pdf Smokefree.gov http://smokefree.gov/ QuitNet http://www.quitnet.com/ 1801-4921 [facility], [address] [place] [address]. All rights reserve d. This information is not intended as a substitute for professional medical care. Always fo llow your healthcare professional's instructions. documented in this encounter Progress Notes Ling Lowe MD - 03/16/2013 2:39 PM PSTFormatting of this note might be differe nt from the original. Pulmonary Follow Up Note MD Sarah Johnson [facility] [address] [place], [address] HPI Nazario Aguilar Sr. is a 62 y.o. male patient of Jose Angel Reina here today for foll ow up of COPD. At their last visit, we had continued his Advair, Spiriva and Daliresp. Since their last vi sit he feels like he has been doing pretty well. He notes that [facility] was [facility] night with vomiting, which [...] is currently on 3 LPM at [facility]. He reports good compliance. Past Medical [...] made to ensure accuracy; however, inadvertent computerized logistics solution manager errors may be pre sent. documented [...] [place] | | | | | | [id number] | | | | | | | [...]
--- OUTSIDE RECORDS SUMMARY | ~2019-08-31 | XMS | Encounter Summary ---
Demographics + + + | Address | [address] | | | [place] [address] | + + + | Home Phone | | + + + | Preferred Language | Unknown | + + + | Marital Status | Single | + + + | Mandaeism Affiliation | Unknown | + + + | Race | Unknown | + + + | Ethnic Group | Other Race | + + + Author + + + | Author | [facility] | + + + | Organization | [facility] | + + + | Address | Unknown | + + + | Phone | Unavailable | + + + Care Team Providers + +------+ + | Care Transportation Equipment Painter Name | Role | Phone | + +------+ + PCP | Unavailable | + +------+ + Encounter Details +--------+ + + + + | Date | Type | Department | Care Team | Description | +--------+ + + + + | 02/11/ | Documentati | Neurology at | Markel Genao, | | | 2010 | on | [facility] & | MD [address] | | | | | Healing [address] | [place], [place] | | | | | Ave Mailcode: [place] | [address] | | | | | [facility] | [phone] | | | | | and Healing, | | | | | | [facility] | | | | | | Floor [facility] [place] | | | | | | [address] | | | | | | [phone] | | | +--------+ + + + [...]
--- OUTSIDE RECORDS SUMMARY | ~2019-08-31 | XMS | Encounter Summary ---
Demographics + + + | Address | [address] | | | [place] [address] | + + + | Home Phone | | + + + | Preferred Language | Unknown | + + + | Marital Status | | + + + | Lutheran Affiliation | 1061 | + + + | Race | Unknown | + + + | Ethnic Group | Unknown | + + + Author + + + | Author | [facility] | | | and [place] | + + + | Organization | [facility] | | | and [place] | + + + | Address | Unknown | + + + | Phone | Unavailable | + + + Support + + + + + | Name | Relationship | Address | Phone | + + + + + | Palak Aguilar | ECON | #[place] | | | | | [address] | | + + + + + | Tanika Jean | ECON | Unknown | | + + + + + Care Team Providers + +------+ + | Care Sdv Pilot/Navigator/Dds Operator Name | Role | Phone | + +------+ + | Jose Angel Reina MD | PCP | | + +------+ + Reason for Visit + + + | Reason | Comments | + + + | COPD | | + + + | Nodule (Solitary) | | + + + Evaluate & Treat (Urgent) + +--------+ + + + + | Status | Reason | Specialty | Diagnoses / | Referred By | Referred To | | | | | Procedures | Contact | Contact | + +--------+ + + + + | Authorizatio | | Pulmonology | Diagnoses | Lamberto, | Hoang | | n not | | | Other | Nuzhat Negrete MD | Pulmonology | | Required | | | nonspecific | [address] | [address] | | | | | abnormal | [address] | [address] | | | | | finding of | [place], | [place], [place] | | | | | lung field | [place] [address] | [address] | | | | | | Phone: | Phone: | | | | | | [phone] | [phone] | | | | | | Fax: | Fax: | | | | | | [phone] | [phone] | + +--------+ + + + + Encounter Details +--------+---------+ + + + | Date | Type | Department | Care Team | Description | +--------+---------+ + + + | 08/09/ | Office | [facility] | Alfonso Wallace MD | Personal history of | | 2019 | Visit | PULMONOLOGY [address] | tobacco use, | | | | [address] | [place], [place] | presenting hazards | | | | [place], [place] | [address] | to health (Primary | | | | [address] | | Dx); Centrilobular | | | | [phone] | | emphysema (HCC); | | | | | | Mass of upper lobe | | | | | | of right lung; | | | | | | Chronic respiratory | | | | | | failure with hypoxia | | | | | | and hypercapnia | | | | | | (HCC) [...] + + + | Blood Pressure | 128/77 | 08/10/2019 10:57 AM | | | | | PDT | | + + + + + | Pulse | 107 | 08/10/2019 10:57 AM | | | | | PDT | | + + + + + | Temperature | 35.9 C (96.7 F) | 08/10/2019 10:57 AM | | | | | PDT | | + + + + + | Respiratory Rate | - | - | | + + + + + | Oxygen Saturation | 96% | 08/10/2019 10:57 AM | 2 liters of oxygen | | | | PDT | | + + + + + | Inhaled Oxygen | - | - | | | Concentration | | | | + + + + + | Weight | 102.1 kg (225 lb) | 08/10/2019 10:57 AM | | | | | PDT | | + + + + + | Height | 175.3 cm (5' 9") | 08/10/2019 10:57 AM | | | | | PDT | | + + + + + | Body Mass Index | 33.23 | 08/10/2019 10:57 AM | | | | | PDT | | + + + + + documented in this encounter Progress Notes Alfonso Wallace MD - 08/10/2019 11:00 AM PDT Subjective: Patient ID: Nazario Aguilar Sr. 69 y.o. is here for evaluation of Right upper lobe mass. HPI Patient's medications, allergies, past medical, surgical, social and family histories were obtained and reviewed as appropriate. The patient is a pleasant 69-year-old male with history of cerebellar ataxia. I know this patient since 2017 when he presented to me for evaluation for emphysema. The patient states that he had a lung cancer screening study done which showed a right upper lobe cavitary mas s.The patient denies any cough or hemoptysis. He says he has cough with mucoid expectoratio n. He denies any chest pain orthopnea or PND. He has been using oxygen 2 to 3 L/min 26/10. He uses Advair 500/51 puff 2 times daily. He has been smoking every day. Since last visit he denies any frequent hospitalization. He has been compliant with the us e of his inhalers. He denies any fever, weight loss. He has no history of choking on food. He denies any nocturnal awakening for cough. He denies any significant chest pain. He do es not drink alcohol. Review of Systems Constitutional: Negative. HENT: Negative. Eyes: Negative. Respiratory: Positive for cough, shortness of breath and wheezing. Cardiovascular: Negative. Gastrointestinal: Negative. Genitourinary: Negative. Musculoskeletal: Negative. Skin: Negative. Neurological: Positive for dizziness and tremors. Endo/Heme/Allergies: Negative. Psychiatric/Behavioral: Negative. History: Past Medical [...] file Gets together: Not on file Attends mormon service: Not on file Active member of [...] Varenicline Other (See Comments) Dizziness Current Medications: Current Outpatient Medications on File Prior to Visit Medication Sig Dispense Refill acetaminophen (TYLENOL) 650 [...] 6 hours as needed for Wheezing. No current facility-administered medications on file prior to visit. Objective: Vitals: 08/10/19 1057 BP: 128/77 Pulse: 107 Temp: 35.9 C (96.7 F) PainSc: 0 - No pain Physical Exam Constitutional: He is oriented to [...] No cranial nerve deficit . Gait normal. Skin: Skin is warm. Psychiatric: Affect and judgment normal. No results found. Assessment and plan 1. Personal history of tobacco use, presenting hazards to health The patient was councelled about smoking cessation. He/she has been educated about harms of smoking that include but are not limited to cancers of lung and other organ system,cardiova scular disease, and worsening of his pulmonary disease. I have offered him aides to help w ith smoking cessation including nicotine replacement, and anti-depressant medications. 2. Centrilobular emphysema (HCC) The patient has centrilobular emphysema. I have advised him to continue using Advair 500/5 1 puff 2 times daily. 3. Mass of upper lobe of right lung The patient has a right upper lobe mass. It is cavitary and I am concerned that this may b e a cavitary neoplasm such as squamous cell cancer. The patient will need a navigational br onchoscopy. I tried to explain to him, his in detail however their understanding seems to be limited. They advised me to call the patient's sister. I called the patient sister and had a detailed discussion with her regarding how the procedure will be done the risks an d benefits. We decided that the patient and the family will meet this Wednesday and they will give me a call and I will schedule the procedure but for now she wants me to schedule the pr ocedure for Wednesday. 4. Chronic respiratory failure with hypoxia and hypercapnia (HCC) Continue oxygen at 2 L/min to keep oxygen saturation more than 90% Thank you for allowing me to participate in your patient's care. We will review test result s that we have ordered with the patient once they become available. A return visit has been scheduled in 6 weeks. Alfonso Wallace MD Pulmonary and Critical Care Medicine [facility] [address], [place] [address] documented in this enco unter Plan of Treatment +--------+ + + + + | Date | Type | Specialty | Care Team | Description | +--------+ + + + + | 11/16/ | Appointment | Radiology | Alfonso Wallace MD | | | 2019 | | | [address] | | | | | | [place], [place] | | | | | | [id number] | | | | | | | | +--------+ + + + + documented as of this encounter Visit Diagnoses + + | Diagnosis | + + | Personal history of tobacco use, presenting hazards to health - Primary | + + | Centrilobular emphysema (HCC) | + + | Mass of upper lobe of right lung | + + | Chronic respiratory failure with hypoxia and hypercapnia (HCC) | + + documented in this encounter
--- OUTSIDE RECORDS SUMMARY | ~2019-08-31 | XMS | Encounter Summary ---
Demographics + + + | Address | [address] | | | [place] [address] | + + + | Home Phone | | + + + | Preferred Language | Unknown | + + + | Marital Status | | + + + | Anabaptist Affiliation | 1061 | + + + | Race | Unknown | + + + | Ethnic Group | Unknown | + + + Author + + + | Author | [facility] | | | and [place] | + + + | Organization | [facility] | | [...] #[id number] | | | | | [address] | | + + + + + | Tanika Jean | ECON | Unknown | | + + + + + Care Team Providers + +------+ + | Care Switchbox Assembler Name | Role | Phone | + +------+ + PCP | Unavailable | + +------+ + Encounter Details +--------+ + + + + | Date | Type | Department | Care Team | Description | +--------+ + + + + | 04/20/ | Hospital | [facility] | [place], | | | 2011 | Encounter | MED CTR GENERIC OP | Ling Frazier MD | | | | | CONV DEPT [address] | | | | | | [place], | | | | | | [place] [address] | | | | | | [phone] | | | +--------+ + + + [...] [place] | | | | | | [address] | | | | | | | | +--------+ + + + + documented as of this encounter Visit Diagnoses Not on filedocumented in this encounter"
--- OUTSIDE RECORDS SUMMARY | ~2019-08-31 | XMS | Encounter Summary ---
Demographics + + + | Address | [address] | | | [place] [address] | + + + | Home Phone [...] #[address] | | | | | [address] | | + + + + + | Tanika Jean | ECON | Unknown | | + + + + + Care Team Providers + +------+ + | Care Ventilator Specialist Name | Role | Phone | [...] RN | obstructive | | | | [place], | | pulmonary disease) | | | | [place] [address] | | ([facility]) (Primary Dx) | | | | [phone] | | | +--------+ + + + [...] [place] | | | | | | [address] | | | | | | | | +--------+ + + + + documented as of this encounter Visit Diagnoses + + | Diagnosis | + + | COPD (chronic obstructive pulmonary disease) (HCC) - Primary Chronic airway | | obstruction, not elsewhere classified | + + documented in this encounter"
--- OUTSIDE RECORDS SUMMARY | ~2019-08-31 | XMS | Encounter Summary ---
Demographics + + + | Address | [address] | | | [place] [address] | + + + | Home Phone [...] #[address] | | | | | [address] | | + + + + + | Tanika Jean | ECON | Unknown | | + + + + + Care Team Providers + +------+ + | Care Integrated Marketing Specialist Name | Role | Phone | [...] | Karlos Gatica MD | [address] | | | | | spinal | [address] | [place], | | | | | stenosis | [address] | [place] | | | | | Facet | [place], | [address] | | | | | arthritis of | [place] [address] | Phone: | | | | | lumbar | Phone: | [phone] | | | | | region | [phone] | Fax: | | | | | Lumbalgia | Fax: | [phone] | | | | | Procedures | [phone] | | | | | | MRI Lumbar | | | | | | | Spine wo | | | | | | | Contrast | | | +--------+--------+ + + + + Encounter Details +--------+ + + + + | Date | Type | Department | Care Team | Description | +--------+ + + + + | 02/22/ | Hospital | [facility] | Karlos Craig, | Lumbar spinal | | 2012 | Encounter | MED CTR XRAY [address] | MD [address] | stenosis; Facet | | | | [address] | [place], [place] | arthritis of lumbar | | | | [place] [address] | [phone] | region; Lumbalgia | | | | [phone] | | | +--------+ + + + [...] | | | | | | | ([facility]) | | | | | | + [...] [place] | | | | | | [address] | | | | | | | [...] Performed At | + + + | [facility] | [place] | | Department [facility] | [facility] | | [ rep [address]] [ rep [facility] | | st zip] Signed | - IMAGING | | | | | Patient Name: KEVIN DAUGHERTY SR | | | Physician: ROBINA : 1950 Age: 62 Sex: M Unit | | | #: [id number] Exam Date: 02/22/13 Location: | | | [facility] Report #: [id number] Page: | | | %(RAD)RES..mtdd.print.filter("pg") of %(RAD) | | | RES..mtdd.print.filter("tpg") | | | | | | Accession Number: [id number] | | | LUMBAR SPINE WITHOUT CONTRAST CLINICAL HISTORY: CHRONIC | | | LOW BACK PAIN WITH RADIATION TO BOTH LEGS. WEAKNESS. | | | COMPARISON: Lumbar spine radiograph dated 12/08/2012 from [facility] | | | [facility]. TECHNIQUE: Multiplanar, | | | [...] Transcribed Date/Time: 02/22/2013 | | | 18:05 Front End Drupal Developer: <<Signature on | | | File>> | | | Yared | | | Monica Diaz MD02/22/13 8661 <Electronically signed by Yared Anderson | | | Joe ARIAS> Yared Diaz MD 02/22/13 1307 | | | Front End Drupal Developer: Julius Ojemyyalqkchi61/20/13 6065 | | | Karlos Craig Jr, MD | | + + + + + + + + | Performing | Address | City/State/Zipcode | Phone Number | | Organization | | | | + + + + + | [facility] | [address] | [place] | [phone] | | [facility] | | [address] | | | - IMAGING | | [...]
--- OUTSIDE RECORDS SUMMARY | ~2019-08-31 | XMS | Encounter Summary ---
Demographics + + + | Address | [address] | | | [place] [address] | + + + | Home Phone | | + + + | Preferred Language | Unknown | + + + | Marital Status | | + + + | Confucianism Affiliation | 1061 | + + + | Race | Unknown | + + + | Ethnic Group | Unknown | + + + Author + + + | Author | [facility] | | | and [place] | + + + | Organization | [facility] | [...] #[address] | | | | | [address] | | + + + + + | Tanika Jean | ECON | Unknown | | + + + + + Care Team Providers + +------+ + | Care Shampooer Name | Role | Phone | + [...] + + | 01/21/ | Office | [facility] | [place], | COPD (chronic | | 2014 | Visit | PULMONARY [address] | Ling Frazier MD | obstructive | | | | [place], | | pulmonary disease); | | | | [place] [address] | | Nocturnal hypoxemia | | | | [phone] | | due to emphysema | | | | | | ([facility]); Tobacco | | | | | | [...] [facility]. At their last visit, we had kept him on Spiriva, Advair and Daliresp. Since their last visi t he feels like he has been doing okay. He had some type of virus about a month ago and was seen at [facility], but it sounds like this was limited [...] He is currently on 3 LPM at [facility]. He reports good compliance. He does not [...] Diabetes mellitus (HCC) HTN (hypertension) Seizure disorder ([facility]) Restless legs syndrome Seasonal allergies PLMD (periodic [...] tablet Take 81 mg by mouth Daily. sefuxyd-iayjgbgintxpm-cfwvcqip (HEADACHE RELIEF) 250-250-65 MG per tablet Take [...] made to ensure accuracy; however, inadvertent computerized phthalic acid purifier errors may be pre sent. documented in [...] [place] | | | | | | [id number] | | | | | | | [...]
--- OUTSIDE RECORDS SUMMARY | ~2019-08-31 | XMS | Encounter Summary ---
Demographics + + + | Address | [address] | | | [place] [address] | + + + | Home Phone [...] #[address] | | | | | [address] | | + + + + + | Tanika Jean | ECON | Unknown | | + + + + + Care Team Providers + +------+ + | Care Proof Passer Name | Role | Phone | + [...] + + | 05/20/ | Office | [facility] | [place], | COPD with acute | | 2016 | Visit | PULMONARY [address] | Ling Frazier MD | exacerbation (HCC) | | | | [place], | | (Primary Dx); | | | | [place] [address] | | Nocturnal hypoxemia | | | | [phone] | | due to emphysema | | [...] PSTI would not ride a cart at [facility]. Instead, when you go shopping, start off [...] [facility]. At their last visit, we had continued him on Advair, Spiriva and Daliresp. Since their last visit he feels like he has been doing not so great. He was told he had bronchitis recently by the [facility] down in [place]. He was given a 5 day course [...] Currently he is able to walk across [facility] at his own pace on level ground, as long as he pushes the walker or grocery cart, and he does stop to look at things. He is not exercising regularly. He has been evaluated for nocturnal oxygen and does use it. He is currently on 3 LPM at [facility]. He reports good compliance. He has not [...] Take 81 mg by mouth Daily. [DISCONTINUED] nndhiim-abhdqvrwqbnqo-svfmbtwz (HEADACHE RELIEF) 250-250-65 MG per table t [...] made to ensure accuracy; however, inadvertent computerized installment dealer errors may be pre sent. documented in [...] [place] | | | | | | [id number] | | | | | | | [...]
--- OUTSIDE RECORDS SUMMARY | ~2019-08-31 | XMS | Encounter Summary ---
Demographics + + + | Address | [address] | | | [place] [address] | + + + | Home Phone [...] #[address] | | | | | [address] | | + + + + + | Tanika Jean | ECON | Unknown | | + + + + + Care Team Providers + +------+ + | Care Freight Dispatcher Name | Role | Phone | + [...] | | | | | | [place] [address] | | | | | | [phone] | | | +--------+--------+ + + + [...] [place] | | | | | | [address] | | | | | | | [...]
--- OUTSIDE RECORDS SUMMARY | ~2019-08-31 | XMS | Encounter Summary ---
Demographics + + + | Address | [address] | | | [place] [address] | + + + | Home Phone [...] #[address] | | | | | [address] | | + + + + + | Tanika Jean | ECON | Unknown | | + + + + + Care Team Providers + +------+ + | Care Office Machine Servicer Apprentice Name | Role | Phone | + [...] | shoulder | [address] | | | | n | pain | [address] | [place], | | | | | Rotator cuff | [place], | [place] [address] | | | | | tendonitis, | [place] [address] | Phone: | | | | | right | Phone: | [phone] | | | | | | [phone] | Fax: | | | | | | Fax: | [phone] | | | | | | [phone] | | +--------+ + + + + [...] + | 10/11/ | Office | [facility] | Karlos Craig, | Right shoulder pain | | 2013 | Visit | PHYSIATRY [address] | [address] | (Primary Dx); | | | | [address] | [place] | Rotator cuff | | | | [place] | [address] | tendonitis, right; | | | | [address] | | Lumbalgia; Lumbar | | | | [phone] | | facet arthropathy; | | | [...] of the notes from your neurologist at [facility]. We will review them wit h you at your next visit. Continue working toward stopping smoking.Electronically signed by Karlos Craig MD at 12/2013 11:33 AM PDT documented in this encounter Progress Notes Karlos Craig MD - 10/11/2013 11:34 AM PDTThis office note has been dictated. Job ID# [id number] signed by Karlos Craig MD at 10/11/2013 12:06 PM Alesha Sheth RN - 10/11/2013 11:10 AM PDTBack and right shoulder pain is doing better. Evaluated at [facility] for ataxia but at the moment they requested expensive testing that the pt couldn't afford, p atient will be following up with them in 1 year. Not doing PT at this moment, but doing fitz ening and home exercises Karlos Craig MD - 10/11/2013 12:00 AM PDT [facility] [address] [place] [address] FAX: [phone] OFFICE VISIT CONSULT REQUESTED BY: Jose Angel [...] He indicates that he was seen at [facility] Neurology Department for his ataxia. He indicates yair t they recommended laboratory testing that was expensive. He indicates that it was not orde red at that time because of concerns over cost. Mr. Aguilar indicates that he has had [facility] n[facility]. He is wondering whether or not the laboratory tests would be covered at t his time. He is interested in having them ordered if possible. Record of which laboratory t ests were recommended is not available at this time. Neurology notes from [facility] have not yet been received. They were [...] does not feel like he has the ut ans or ability to do so. He was encouraged to contact the 7-167-TJ-BUTTS smoking cessation program. ALLERGIES 1. LEVAQUIN. 2. [...] In regard to his ataxia, notes from [facility] have been requeste d for review to [...] tear. Greater than 30 minutes was spent stbc-or-ojkl today with Mr. Aguilar, over half of which w as spent formulating and discussing his medical treatment plan. Thank you for allowing me to be involved in the care of your patient. If you have any quest ions regarding the care of Mr. Aguilar, please do not hesitate to call. Karlos Craig Jr, MD [place] / JOB #: [id number] cc: Peter eRina MD documented in this encounter Plan of Treatment +--------+ + + + + | Date | Type | Specialty | Care Team | Description | +--------+ + + + + | 11/16/ | Appointment | Radiology | [place], Alfonso, MD | | | 2019 | | | [address] | | | | | | [place] | | | | | | [address] | | | | | | | [...]
--- OUTSIDE RECORDS SUMMARY | ~2019-08-31 | XMS | Encounter Summary ---
Demographics + + + | Address | [address] | | | [place] [address] | + + + | Home Phone | | + + + | Preferred Language | Unknown | + + + | Marital Status | | + + + | Cheondoism Affiliation | 1061 | + + + | Race | Unknown | + + + | Ethnic Group | Unknown | + + + Author + + + | Author | [facility] | | | and [place] | + + + | Organization | [facility] | | | and [place] | + + + | Address | Unknown | + + + | Phone | Unavailable | + + + Support + + + + + | Name | Relationship | Address | Phone | + + + + + | Palak Aguilar | ECON | [address] | | | | | [address] | | + + + + + | Tanika Jean | ECON | Unknown | | + + + + + Care Team Providers + +------+ + | Care Marine Machinist Name | Role | Phone | + +------+ + | Jose Angel Reina MD | PCP | | + +------+ + Reason for Visit + + + | Reason | Comments | + + + | Back Pain | no back pain at this time | + + + | Gait Problem | | + + + Encounter Details +--------+---------+ + + + | Date | Type | Department | Care Team | Description | +--------+---------+ + + + | 02/16/ | Office | [facility] | Karlos Craig, | Lumbar spinal | | 2012 | Visit | MEDICINE | MD [address] | stenosis (Primary | | | | [facility] [address] | [place] | Dx); Lumbar facet | | | | [address] | [id number] | arthropathy; | | | | [place] | | Lumbalgia; Ataxia | | | | [address] | | | | | | [phone] | | | +--------+---------+ + + + [...] + + | Pulse | 84 | 02/16/2013 1:44 PM | | | | | PST | | + + + + + | Temperature | - | - | | + + + + + | Respiratory Rate | 18 | 02/16/2013 1:44 PM | | | | | PST | | + + + + + | Oxygen Saturation | - | - | | + + + + + | Inhaled Oxygen | - | - | | | Concentration | | | | + + + + + | Weight | 99.8 kg (220 lb) | 02/16/2013 1:44 PM | | | | | PST | | + + + + + | Height | 175.3 cm (5' 9") | 02/16/2013 1:44 PM | | | | | PST | | + + + + + | Body Mass Index | 32.49 | 02/16/2013 1:44 PM | | | | | PST | | + + + + + documented in this encounter Patient Instructions Patient Instructions Karlos Craig MD - 02/16/2013 2:29 PM PSTPlease attend the MRI of your low back as scheduled. A prescription for a four wheel walker was supplied today. Take it to your preferred medic al supply store. A consult at [facility] was been requested by Dr. Williamson, with the neurology department regarding yo ur ataxia. Please participate in the exercises as outlined by the physical therapist on a routine basi s. Return to the clinic in one month to review the results of your MRI. documented in this encounter Progress Notes Karlos Craig MD - 02/16/2013 2:35 PM PSTThis office note has been dictated. Job ID# [id number] signed by Karlos Craig MD at 02/16/2013 3:30 PM Arleen Lo RN - 02/16/2013 1:49 PM PSTPatient states he has intermittent pain to bilateral legs and lower back. Karlos Berumen MD - 02/16/2013 12:00 AM PST PHYSICAL MEDICINE AND REHAB [address] [place] [address] FAX: [phone] OFFICE VISIT PHYSICAL MEDICINE REHABILITATION PROGRESS NOTE CONSULT REQUESTED BY: Ling Lowe MD DATE OF SERVICE: 02/16/2013 PRIMARY CARE PROVIDER: Jose Angel Reina MD PATIENT IDENTIFICATION: A 62-year-old male with ataxia, history of emphysema, seizures and back pain. HISTORY OF PRESENT ILLNESS: Mr. Aguilar's primary reason for seeing me is low back pain. Hi s back pain has been intermittent. Back pain is brought on by standing and walking and redu barak by sitting down. He has completed some physical therapy which has been helpful in reduc ing his unsteady gait, ataxia. The therapist suggested the use of 4 wheel walker. This was prescribed for him today. He had been previously seen by neurology, Dr. Roderick Williamson regarding h is ataxia. She suggested that he have a consult in the neurology department at [facility]. This i s still pending. When he was last seen, I felt that he likely had lumbar spinal stenosis. L umbar MRI was requested. He has not yet completed his imaging. He reports that his current pain level is a 5-6/10 on a numerical pain scale. He states yair t his pain is constant in timing. He states that his pain is dull in quality. He indicates that pain is increased with standing and walking. He reports that his pain is reduced by si tting down. He has not yet had his MRI. He denies incontinence of bowel or bladder. He zackery es saddle anesthesia. ALLERGIES: LEVAQUIN, CHANTIX. CURRENT MEDICATIONS 1. Tylenol. 2. Albuterol. 3. Aspirin. 4. Lipitor. 5. Carbamazepine. 6. Cyclobenzaprine. 7. Flonase. 8. Lisinopril. 9. Metformin. 10. Oxygen. 11. Requip. 12. Spiriva. REVIEW OF SYSTEMS Mr. Aguilar denies fever, chills, shortness of breath, or chest pain. Denies skin breakdown or rash. All other review of systems negative. PHYSICAL EXAMINATION VITAL SIGNS: Heart rate 84, respiratory rate 18, weight 220 pounds, height 5 foot 9 inches . GENERAL: No acute distress. Alert and oriented to person, place, time and situation. Acc ompanied by . He smells of tobacco smoke. HEENT: Extraocular muscles intact. Sclerae cl ear. NECK: Limited range of motion. Tenderness to palpation diffusely. HEART: Regular rate and rhythm. ABDOMEN: Nontender. Positive for bowel sounds. BACK: Tenderness to palpation diffusely over paraspinal muscles and bony spine. Seated stra ight leg raise equivocal. Harley's test negative. EXTREMITIES: Exam reveals no clubbing, cyanosis. There is no edema in the upper or lower e xtremities. NEUROLOGIC: Unchanged, evidence of persisting ataxia and strength remains unchanged in lowe r extremities. DATABASE: Lumbar MRI is not available for review as it has not yet been completed. IMPRESSION 1. LUMBAR SPINAL STENOSIS, ICD-9 724.02. 2. 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 3. LUMBALGIA, ICD-9 724.2. 4. ATAXIA, ICD-9 781.3. PLAN: Mr. Aguilar's treatment is somewhat challenging as he has not yet completed the imagi ng required to give him an adequate and meaningful diagnosis, which would then be used to t ailor his treatment plan. He is asked to complete the MRI. Appointment time was given to jordon latif today for his MRI so that way he would know when to complete it. He was prescribed a 4 wheel walker with a chair today. Hopefully, this will help with his ataxia and mobility. May be also helpful in treating his impaired mobility and back pain. Jordon kelley pain is present when he stands and walks, it is relieved by sitting down, having a walker with a chair on it may be helpful in supporting him and improving his ability to functiona lly be mobile. He will return to the clinic once the MRI is completed, at that time we can review treatment options based off the results of the MRI. A consult request with [facility] was replaced today so that he can have an appointment with them to evaluate and treat his ataxi a potentially. He was instructed to continue home exercise program as outlined by physical therapy on a daily basis indefinitely. Approximately 30 minutes was spent [id number] today with Mr. Aguilar over half of which w as spent formulating and discussing his medical treatment plan. Thank you for allowing me t o be involved in the care of your patient. If you have any questions regarding the care of Mr. Aguilar please do not hesitate to call. Karlos Craig Jr, MD GEM / SB JOB #: [id number] cc: Peter Reina MD documented in this encounter Plan of Treatment +--------+ + + + + | Date | Type | Specialty | Care Team | Description | +--------+ + + + + | 11/16/ | Appointment | Radiology | Alfonso Wallace MD | | | 2019 | | | [address] | | | | | | [place], [place] | | | | | | [address] | | | | | | | | +--------+ + + + + documented as of this encounter Visit Diagnoses + + | Diagnosis | + + | Lumbar spinal stenosis - Primary Spinal stenosis, lumbar region, without neurogenic | | claudication | + + | Lumbar facet arthropathy Lumbosacral spondylosis without myelopathy | + + | Lumbalgia Lumbago | + + | Ataxia Lack of coordination | + + documented in this encounter
--- OUTSIDE RECORDS SUMMARY | ~2019-08-31 | XMS | Encounter Summary ---
Demographics + + + | Address | [address] | | | [place] [address] | + + + | Home Phone | | + + + | Preferred Language | Unknown | + + + | Marital Status | | + + + | Hindu Affiliation | 1061 | + + + [...] [address] | | | | | [address] | | + + + + + | Tanika Jean | ECON | Unknown | | + + + + + Care Team Providers + +------+ + | Care Motorized Squad Lieutenant Name | Role | Phone | + +------+ + | Jose Angel Reina MD | PCP | | + +------+ + Encounter Details +--------+ + + + + | Date | Type | Department | Care Team | Description | +--------+ + + + + | 06/16/ | Hospital | [facility] | [place], | Chronic obstructive | | 2016 | Encounter | MED CTR PULMONARY | Ling Frazier MD | pulmonary disease, | | | | [address] | | unspecified COPD | | | | [place], | | type (HCC); | | | | [place] [address] | | Hypoxemia | | | | [phone] | | | +--------+ + + + [...] | | | | | | | ([facility]) | | | | | | [...] [place] | | | | | | [address] | | | | | | | [...]
--- OUTSIDE RECORDS SUMMARY | ~2019-08-31 | XMS | Encounter Summary ---
Demographics + + + | Address | [address] | | | [place] [address] | + + + | Home Phone [...] #[address] | | | | | [address] | | + + + + + | Tanika Jean | ECON | Unknown | | + + + + + Care Team Providers + +------+ + | Care Control And Recovery Combat Rescue Name | Role | Phone | + [...] + + | 05/29/ | Telephone | [facility] | Chrissy, | Appointment | | 2016 | | MED CTR PULMONARY | Ling Frazier MD | | | | | [address] | | | | | | [place], | | | | | | [place] [address] | | | | | | [phone] | | | +--------+ + + + [...] [place] | | | | | | [address] | | | | | | | | +--------+ + + + + documented as of this encounter Visit Diagnoses Not on filedocumented in this encounter"
--- OUTSIDE RECORDS SUMMARY | ~2019-08-31 | XMS | Encounter Summary ---
Demographics + + + | Address | [address] | | | [place] [address] | + + + | Home Phone [...] #[id number] | | | | | [address] | | + + + + + | Tanika Jean | ECON | Unknown | | + + + + + Care Team Providers + +------+ + | Care Clinical Trials Systems Administrator Name | Role | Phone | + +------+ + PCP | Unavailable | + +------+ + Encounter Details +--------+ + + + + | Date | Type | Department | Care Team | Description | +--------+ + + + + | 07/19/ | Hospital | [facility] | [place], | | | 2011 | Encounter | MED CTR LABORATORY | Ling Frazier MD | | | | | [address] | | | | | | [place] | | | | | | [address] | | | | | | [phone] | | | +--------+ + + + [...] [place] | | | | | | [address] | | | | | | | [...] 58.8Comment: Testing | 23.9 - 336.0 | [facility] | | | | performed on the Josr | ng/mL | [facility] | | | | [place] [facility] | | MEDICAL | | | [...] + + | [facility] | [address] | [place] | [phone] | | [facility] | | [address] | | | - LABORATORY | | | | + + + + + | [facility] | [address] | [place] | | | [facility] | | [address], [facility] | | | - LABORATORY | [...] + | [facility] | [address] | [place] | [phone] | | [facility] | | [facility] | | | - LABORATORY | | | | + + + + + | [facility] | [address] | [place] | | | [facility] | | [address] [place] [address] | | | - LABORATORY | | | | + + + + + documented in this encounter Visit Diagnoses Not on filedocumented in this encounter"
--- OUTSIDE RECORDS SUMMARY | ~2019-08-31 | XMS | Encounter Summary ---
Demographics + + + | Address | [address] | | | [place] [address] | + + + | Home Phone | | + + + | Preferred Language | Unknown | + + + | Marital Status | | + + + | Confucianism Affiliation | 1061 | + + + | Race | Unknown | + + + | Ethnic Group | Unknown | + + + Author + + + | Author | [facility] | | | and [place] | + + + | Organization | [facility] | | | and [place] | + + + | Address | Unknown | + + + | Phone | Unavailable | + + + Support + + + + + | Name | Relationship | Address | Phone | + + + + + | Palak Aguilar | ECON | [address] | | | | | [address] | | + + + + + | Tanika Jean | ECON | Unknown | | + + + + + Care Team Providers + +------+ + | Care Dealer Development Manager Name | Role | Phone | [...] | Telephone | [facility] [place] | Chrissy, | Appointment | | 2015 | | PULMONARY [address] | Ling Frazier MD | | | | | [place], | | | | | | [place] [address] | | | | | | [phone] | | | +--------+ + + + [...] [place] | | | | | | [address] | | | | | | | | +--------+ + + + + documented as of this encounter Visit Diagnoses Not on filedocumented in this encounter"
--- OUTSIDE RECORDS SUMMARY | ~2019-08-31 | XMS | Encounter Summary ---
Demographics + + + | Address | [address] | | | [place] [address] | + + + | Home Phone [...] Author | [facility] | | | and [place] | + + + | Organization | [facility] | | | and [place] | + + + | Address | Unknown | + + + | Phone | Unavailable | + + + Support + + + + + | Name | Relationship | Address | Phone | + + + + + | Palak Aguilar | ECON | [address] | | | | | [address] | | + + + + + | Tanika Jean | ECON | Unknown | | + + + + + Care Team Providers + +------+ + | Care Lead Portfolio Manager Name | Role | Phone | [...] | | | | | [facility] [facility] | [place] [address] | | | | | [place] [address] | | | | | | [phone] | | | +--------+ + + + [...] [place] | | | | | | [address] | | | | | | | [...] for comparison only - no result from [facility]. | [facility] | + + + + +---------+ + + | Performing | Address | City/State/Zipcode | Phone Number | | Organization | | | | + +---------+ + + | [facility] | | | | + +---------+ + + documented in this encounter Visit Diagnoses Not on filedocumented in this encounter"
--- OUTSIDE RECORDS SUMMARY | ~2019-08-31 | XMS | Encounter Summary ---
Demographics + + + | Address | [address] | | | [place] [address] | + + + | Home Phone [...] #[address] | | | | | [address] | | + + + + + | Tanika Jean | ECON | Unknown | | + + + + + Care Team Providers + +------+ + | Care Insurance Adjustor Name | Role | Phone | + +------+ + | Jose Angel Reina MD | PCP | | + +------+ + Reason for Visit + + + | Reason | Comments | + + + | Medication Refill | | | Assistance | | + + + Encounter Details +--------+ + + + + | Date | Type | Department | Care Team | Description | +--------+ + + + + | 09/24/ | Telephone | [facility] [place] | [place], | Medication Refill | | 2015 | | PULMONARY [address] | iLng Frazier MD | Assistance | | | | [place], | | | | | | [place] [address] | | | | | | [phone] | | | +--------+ + + + [...] [place] | | | | | | [address] | | | | | | | | +--------+ + + + + documented as of this encounter Visit Diagnoses Not on filedocumented in this encounter"
--- OUTSIDE RECORDS SUMMARY | ~2019-08-31 | XMS | Encounter Summary ---
Demographics + + + | Address | [address] | | | [place] [address] | + + + | Home Phone | | + + + | Preferred Language | Unknown | + + + | Marital Status | | + + + | Yarsani Affiliation | 1061 | + + + | Race | Unknown | + + + | Ethnic Group | Unknown | + + + Author + + + | Author | [facility] | | | and [place] | + + + | Organization | [facility] | | | and [place] | + + + | Address | Unknown | + + + | Phone | Unavailable | + + + Support + + + + + | Name | Relationship | Address | Phone | + + + + + | Palak Aguilar | ECON | [address] | | | | | [address] | | + + + + + | Tanika Jean | ECON | Unknown | | + + + + + Care Team Providers + +------+ + | Care Info Specialist Name | Role | Phone | [...] + + | 12/21/ | Telephone | [facility] | Roderick Williamson MD [address] | Other | | 2012 | | NEUROLOGY [place] | [facility] | | | | | [address] [facility], | [address] [place], | | | | | [address] [place] | [place] [address] | | | | | [place] [address] | [phone] | | | | | [phone] | | | +--------+ + + + [...] [place] | | | | | | [address] | | | | | | | | +--------+ + + + + documented as of this encounter Visit Diagnoses Not on filedocumented in this encounter"
--- OUTSIDE RECORDS SUMMARY | ~2019-08-31 | XMS | Encounter Summary ---
Demographics + + + | Address | [address] | | | [place] [address] | + + + | Home Phone [...] Author | [facility] | | | and [place] | + + + | Organization | [facility] | [...] #[address] | | | | | [address] | | + + + + + | Tanika Jean | ECON | Unknown | | + + + + + Care Team Providers + +------+ + | Care Recooperer Name | Role | Phone | + [...] | Karlos Gatica MD | [address] | | | | | spinal | [address] | [place], | | | | | stenosis | [address] | [place] | | | | | Facet | [place], | [address] | | | | | arthritis of | [place] [address] | Phone: | | | | | lumbar | Phone: | [phone] | | | | | region | [phone] | Fax: | | | | | Lumbalgia | Fax: | [phone] | | | | | Procedures | [phone] | | | | | | MRI Lumbar | | | | | | | Spine wo | | | | | | | Contrast | | | +--------+--------+ + + + + Encounter Details +--------+ + + + + | Date | Type | Department | Care Team | Description | +--------+ + + + + | 02/22/ | Hospital | [facility] | Karlos Craig, | Lumbar spinal | | 2012 | Encounter | MED CTR XRAY [address] | MD [address] | stenosis; Facet | | | | [address] [place] | [place], [place] | arthritis of lumbar | | | | [place] [address] | [id number] | region; Lumbalgia | | | | [phone] | | | +--------+ + + + [...] | | | | | | | ([facility]) | | | | | | + [...] [place] | | | | | | [address] | | | | | | | [...] At | + + + | [facility] | [place] | | Department [facility] | | [ rep [address]] [ rep [facility] | | st zip] Signed | - IMAGING | | | | | Patient Name: KEVIN DUAGHERTY SR | | | Physician: ROBINA : 1950 Age: 62 Sex: M Unit | | | #: [id number] Exam Date: 02/22/13 [place]: | | | [facility] [place] #: [id number] Page: | | | %(RAD)RES..mtdd.print.filter("pg") of %(RAD) | | | RES..mtdd.print.filter("tpg") | | | | | | Accession Number: [id number] | | | LUMBAR SPINE WITHOUT CONTRAST CLINICAL HISTORY: CHRONIC | | | LOW BACK PAIN WITH RADIATION TO BOTH LEGS. WEAKNESS. | | | COMPARISON: Lumbar spine radiograph dated 12/08/2012 from [facility] | | | [facility]. TECHNIQUE: Multiplanar, | | | [...] Transcribed Date/Time: 02/22/2013 | | | 18:05 Drum Barker Operator: <<Signature on | | | File>> | | | Yared | | | Monica Diaz MD02/22/13 [id number] <Electronically signed by Yared Anderson | | | Joe ARIAS> Yared Diaz MD 02/22/13 2907 | | | Drum Barker Operator: Julius [id number]/20/13 8508 | | | Karlos Craig Jr, MD | | + + + + + + + + | Performing | Address | City/State/Zipcode | Phone Number | | Organization | | | | + + + + + | [facility] | [address] | [place] | [phone] | | [facility] | | [address] | | | - IMAGING | | [...]
--- OUTSIDE RECORDS SUMMARY | ~2019-08-31 | XMS | Encounter Summary ---
Demographics + + + | Address | [address] | | | [place] [address] | + + + | Home Phone [...] #[id number] | | | | | [address] | | + + + + + | Tanika Jean | ECON | Unknown | | + + + + + Care Team Providers + +------+ + | Care Boat Hop Name | Role | Phone | + +------+ + | No, Physician | PCP | Unavailable | + +------+ + Reason for Visit +--------+ + | Reason | Comments | +--------+ + | Other | update regarding cancellation of procedure | +--------+ + Encounter Details +--------+ + + + + | Date | Type | Department | Care Team | Description | +--------+ + + + + | 08/13/ | Telephone | [facility] | Aidee Mitchell RN | Other (update | | 2020 | | PULMONOLOGY [address] | | regarding | | | | [address] | | cancellation of | | | | [place] | | procedure) | | | | [address] | | | | | | [phone] | | | +--------+ + + + [...] | | | | | [place] | | | | | | [address] | | | | | | | [...]
--- OUTSIDE RECORDS SUMMARY | ~2019-08-31 | XMS | Encounter Summary ---
Demographics + + + | Address | [address] | | | [place] [address] | + + + | Home Phone [...] #[place] | | | | | [address] | | + + + + + | Tanika Jean | ECON | Unknown | | + + + + + Care Team Providers + +------+ + | Care Job Spotter Name | Role | Phone | + +------+ + | Jose Angel Reina MD | PCP | | + +------+ + Encounter Details +--------+ + + + + | Date | Type | Department | Care Team | Description | +--------+ + + + + | 01/19/ | Hospital | [facility] | Roderick Williamson MD [address] | Cerebellar ataxia | | 2012 | Encounter | MED CTR LABORATORY | [facility] | ([facility]) | | | | [address] | [address] | | | | | [facility] [place] | [place] [address] | | | | | [address] | [phone] | | | | | [phone] | | | +--------+ + + + [...] | | | | | | | ([facility]) | | | | | | + [...] [place] | | | | | | [address] | | | | | | | [...] | | DIFFERENTIA | | | STLeonora TK | | | L ? | [...] [facility] | | | | | | . TK | | | | [...] | | Eosinophils | | | [facility]. [facility] | | [...] + | [facility] | [address] | [place], [place] | [phone] | | [facility] | | [address] | | | - LABORATORY | | | | + + + + + | [facility] | [address] | [place], [place] | | | [facility] | | [address] | | | - LABORATORY | | | | + + + + + Ceruloplasmin (01/19/2013 3:42 PM PDT) + + + + + + | Component | Value | Ref Range | Performed | Pathologist | | | | | At | Signature | + + + + + + | CERULOPLASM | 34Comment: Testing | 7 - 220 mg/dL | [facility] | | | [place] | Performed: [facility], [address] | | [facility] | | | | [place] | | MEDICAL | | | | [address] CLIA: [id number] | | CENTER - | | | | | | LABORATORY | | + + + + + + + + | Specimen | + + | | + + + + + + + | Performing | Address | City/State/Zipcode | Phone Number | | Organization | | | | + + + + + | [facility] | [address] | [place] | [phone] | | [facility] | | [address] | | | - LABORATORY | | | | + + + + + | [facility] | [address] | [place], [place] | | | [facility] | | [address], [facility] | | | - LABORATORY | [...] NOTE: | 5.5 - 21.0 mg/L | [facility] | | | herol | METHOD CHANGE HPLC | | [facility] | | | | Corrected on 02/06 [...] | | | | | determined by [facility] | | | | | | Division [...] decisions. | | | | | | [facility] is authorized | | | | | [...] [place], | | | | | | [place] [address] | | | | | | CLIA: [id number] | | | | + + + + + + + + | Specimen | + + | | + + + + + + + | Performing | Address | City/State/Zipcode | Phone Number | | Organization | | | | + + + + + | [facility] | [address] | [place], [place] | [phone] | | [facility] | | [address] | | | - LABORATORY | | | | + + + + + | [facility] | [address] | [place], [place] | | | [facility] | | [address] | | | - LABORATORY | | | | + + + + + TSH (01/19/2013 3:42 PM PDT) + + + + + + | Component | Value | Ref Range | Performed | Pathologist | | | | | At | Signature | + + + + + + | TSH | 1.14Comment: Testing | 0.34 - 5.60 | [facility] | | | | performed on the Josr | uIU/mL | [facility] | | | | [facility] | | MEDICAL | | | [...] [address] | [place] | [phone] | | [facility] | | [address] | | | - LABORATORY | | | | + + + + + | [facility] | [address] | [place] | | | [facility] | | [address], [facility] | | | - LABORATORY | [...] 7 | 7 - 18 mg/dL | [facility] | | | | | | ST. [...] + | [facility] | [address] | [place] | [phone] | | [facility] | | [address] | | | - LABORATORY | | | | + + + + + | [facility] | [address] | [place] | | | [facility] | | [address], [facility] | | | - LABORATORY | [...] + | [facility] | [address] | [place] | [phone] | | [facility] | | [address] | | | - LABORATORY | | | | + + + + + | [facility] | [address] | [place], [place] | | | [facility] | | [address] | | | - LABORATORY | [...] | Performed: [facility], [address] | | [address] | | | | [address] | | MEDICAL | | | | [id number]: [id number] | | CENTER - | | | [...] + | [facility] | [address] | [place], [place] | [phone] | | [facility] | | [address] | | | - LABORATORY | | | | + + + + + | [facility] | [address] | [place], [place] | | | [facility] | | [address], [facility] | | | - LABORATORY | [...] | ST. [facility] | | | | [facility] | | MEDICAL | | | [...] + | [facility] | [address] | [place] | [phone] | | [facility] | | [address] | | | - LABORATORY | | | | + + + + + | [facility] | [address] | [place] | | | [facility] | | [address] | | | - LABORATORY | [...] | | | | | [place] [address] | | | | | | CLIA: [id number] | | | | + + + + + + + + | Specimen | + + | Blood specimen | | (specimen) | + + + + + + + | Performing | Address | [facility] | Phone Number | | Organization | | | | + + + + + | [facility] | [address] | [place] | [phone] | | [facility] | | [address] | | | - LABORATORY | | | | + + + + + | [facility] | [address] | [place], [place] | | | [facility] | | [address], [facility] | | | - LABORATORY | [...] + | [facility] | [address] | [place] | [phone] | | [facility] | | [address] | | | - LABORATORY | | | | + + + + + | [facility] | [address] | [place] | | | [facility] | | [address] | | | - LABORATORY | [...] + | [facility] | [address] | [place], [place] | [phone] | | [facility] | | [address] | | | - LABORATORY | | | | + + + + + | [facility] | [address] | [place], [place] | | | [facility] | | [address], [facility] | | | - LABORATORY | [...] | | | | | gm/dL | [facility]Y | | | | [...] | | Eosinophils | | | [facility] | | [...] + + | [facility] | [address] | [place] | [phone] | | [facility] | | [address] | | | - LABORATORY | | | | + + + + + | [facility] | [address] | [place], [place] | | | [facility] | | [address], [facility] | | | - LABORATORY | | | | + + + + + documented in this encounter Visit Diagnoses + + | Diagnosis | + + | Cerebellar ataxia (HCC) Other cerebellar ataxia | + + documented in this encounter"
--- OUTSIDE RECORDS SUMMARY | ~2019-08-31 | XMS | Encounter Summary ---
Demographics + + + | Address | [address] | | | [place] [address] | + + + | Home Phone [...] #[place] | | | | | [address] | | + + + + + | Tankia Jean | ECON | Unknown | | + + + + + Care Team Providers + +------+ + | Care Interface Analyst Name | Role | Phone | [...] | | | | | | [place] [address] | | | | | | [phone] | | | +--------+--------+ + + + [...] | | | | | [place] | | | | | | [address] | | | | | | | [...]
--- OUTSIDE RECORDS SUMMARY | ~2019-08-31 | XMS | Encounter Summary ---
Demographics + + + | Address | [address] | | | [place] [address] | + + + | Home Phone [...] #[address] | | | | | [address] | | + + + + + | Tanika Jean | ECON | Unknown | | + + + + + Care Team Providers + +------+ + | Care Lamp Cleaner Street Light Name | Role | Phone | + [...] + + | 06/18/ | Telephone | [facility] [place] | [place], | Results (Walkiing | | 2016 | | PULMONARY [address] | Ling Frazier MD | oximetry ) | | | | [place], | | | | | | [place] [address] | | | | | | [phone] | | | +--------+ + + + [...] [place] | | | | | | [address] | | | | | | | [...]
--- OUTSIDE RECORDS SUMMARY | ~2019-08-31 | XMS | Encounter Summary ---
Demographics + + + | Address | [address] | | | [place] [address] | + + + | Home Phone [...] | Author | [facility] | | | and [place] | + + + | Organization | [facility] | | | and [place] | + + + | Address | Unknown | + + + | Phone | Unavailable | + + + Support + + + + + | Name | Relationship | Address | Phone | + + + + + | Palak Aguilar | ECON | #[address] | | | | | [address] | | + + + + + | Tanika Jean | ECON | Unknown | | + + + + + Care Team Providers + +------+ + | Care Business Information Analyst Name | Role | Phone | [...] Exam | MED CTR EXTERNAL | MD [address] | | | | | IMAGING [address] | Lisa Camejo | | | | | [address] [facility] | [place] [address] | | | | | [place] [address] | | | | | | [phone] | | | +--------+ + + + [...] [place] | | | | | | [address] | | | | | | | [...] for comparison only - no result from [place]. | [facility] | + + + + +---------+ + + | Performing | Address | City/State/Zipcode | Phone Number | | Organization | | | | + +---------+ + + | [facility] | | | | + +---------+ + + documented in this encounter Visit Diagnoses Not on filedocumented in this encounter"
--- OUTSIDE RECORDS SUMMARY | ~2019-08-31 | XMS | Encounter Summary ---
Demographics + + + | Address | [address] | | | [place] [address] | + + + | Home Phone [...] + + + + + | Palak Agiular | ECON | #[address] | | | | | [address] | | + + + + + | Tanika Jean | ECON | Unknown | | + + + + + Care Team Providers + +------+ + | Care Automotive Parts Specialist Name | Role | Phone | [...] + + | 05/23/ | Telephone | [facility] | Micah Del Cid | Other | | 2014 | | PHYSIATRY [address] | [address] | | | | [address] | [place], [place] | | | | | [place], [place] | [address] | | | | | [address] | | | | | | [phone] | | | +--------+ + + + [...] [place] | | | | | | [address] | | | | | | | | +--------+ + + + + documented as of this encounter Visit Diagnoses Not on filedocumented in this encounter"
--- OUTSIDE RECORDS SUMMARY | ~2019-08-31 | XMS | Encounter Summary ---
Demographics + + + | Address | [address] | | | [place] [address] | + + + | Home Phone [...] #[address] | | | | | [address] | | + + + + + | Tanika Jean | ECON | Unknown | | + + + + + Care Team Providers + +------+ + | Care Medical Grade Shoemaker Name | Role | Phone | + [...] Frazier MD | | | | | [place], | | | | | | [place] [address] | | | | | | [phone] | | | +--------+ + + + [...] [place] | | | | | | [address] | | | | | | | | +--------+ + + + + documented as of this encounter Visit Diagnoses Not on filedocumented in this encounter"
--- OUTSIDE RECORDS SUMMARY | ~2019-08-31 | XMS | Encounter Summary ---
Demographics + + + | Address | [address] | | | [place] [address] | + + + | Home Phone [...] #[place] | | | | | [address] | | + + + + + | Tanika Jean | ECON | Unknown | | + + + + + Care Team Providers + +------+ + | Care Transfer Car Operator Name | Role | Phone | [...] | | | | | | [place] [address] | | | | | | [phone] | | | +--------+--------+ + + + [...] | 2019 | | | [address] | | | | | | [place] | | | | | | [address] | | | | | | | [...]
--- OUTSIDE RECORDS SUMMARY | ~2019-08-31 | XMS | Encounter Summary ---
Demographics + + + | Address | [address] | | | [place] [address] | + + + | Home Phone | | + + + | Preferred Language | Unknown | + + + | Marital Status | | + + + | Pentecostal Affiliation | 1061 | + + + | Race | Unknown | + + + | Ethnic Group | Unknown | + + + Author + + + | Author | [facility] | | | and [place] | + + + | Organization | [facility] | | | and [place] | + + + | Address | Unknown | + + + | Phone | Unavailable | + + + Support + + + + + | Name | Relationship | Address | Phone | + + + + + | Palak Aguilar | ECON | [id number] | | | | | [address] | | + + + + + | Tanika Jean | ECON | Unknown | | + + + + + Care Team Providers + +------+ + | Care Ems Director Name | Role | Phone | [...] to | | 2020 | Support | [facility] | [address] | SARS-associated | | | | [address] [place] | [address] | coronavirus (Primary | | | | [address] [place] | [place] | Dx) | | | | [address] | [address] | | | | | [phone] | [phone] | | | | | | | [...] in this encounter Progress Notes Hardy Benito, Child & Adolescent Psychiatrist - 08/14/2019 5:15 PM PDTPatient presents to [...] contact their Surgeon's office for further instructions. [facility] Plan of Treatment +--------+ + + + + | Date | Type | Specialty | Care Team | Description | +--------+ + + + + | 11/16/ | Appointment | Radiology | Alfonso Wallace MD | | | 2019 | | | [address] | | | | | | [place] | | | | | | [id number] | | | | | | | [...]
--- OUTSIDE RECORDS SUMMARY | ~2019-08-31 | XMS | Encounter Summary ---
Demographics + + + | Address | [address] | | | [place] [address] | + + + | Home Phone [...] #[address] | | | | | [address] | | + + + + + | Tanika Jean | ECON | Unknown | | + + + + + Care Team Providers + +------+ + | Care Group Chief Operator Name | Role | Phone | + +------+ + | Jose Angel Reina MD | PCP | | + +------+ + Encounter Details +--------+ + + + + | Date | Type | Department | Care Team | Description | +--------+ + + + + | 04/20/ | Hospital | [facility] | Micah Del Cid | | | 2013 | Encounter | MED CTR XRAY [address] | [address] | | | | | [place] | [place], [place] | | | | | [place] [address] | [address] | | | | | [phone] | | | +--------+ + + + [...] 99 | | | | | | (HCC) | months [facility] | | | | | | | Kin[place] | | | | | + + [...] + + +---------+ + + | SPIRIVA HANDFILIPPOALER | INHALE ONE CAPSULE | 30 | [...] | | | | | [place] | | | | | | [address] | | | | | | | [...] Performed At | + + + | [facility] Diagnostic Imaging | [facility] | | Department [address] [place], [place] [address] | [facility] | | [ rep [address]] [ rep [facility] | | st zip] Signed | - IMAGING | | | | | Patient Name: KEVIN DAUGHERTY SR | | | Physician: BANDAR : 1950 Age: 62 Sex: M Unit | | | #: [id number] Exam Date: 04/20/13 Location: | | | IM.INV Report #: [id number] Page: | | | %(RAD)RES..mtdd.print.filter("pg") of %(RAD) | | | RES..mtdd.print.filter("tpg") | | | | | | Accession Number: [id number] | | | PROCEDURE NOTE LUMBAR FACET [...] | | | Transcribed Date/Time: 04/20/2013 17:21 Railway Equipment Operator: | | | <<Signature on File>> | | | Micah Anderson | | | MD Nehemias04/20/13 1805 <Electronically signed by Micah Anderson | | | Nehemias ARIAS> Micah Del Cid MD 04/20/13 6409 | | | Railway Equipment Operator: Giftikivenu Poqsziaplxaju21/16/14 2694 | | | | | + + + + + + + + | Performing | Address | City/State/Zipcode | Phone Number | | Organization | | | | + + + + + | [facility] | [address] | [place] | [phone] | | [facility] | | [address] | | | - IMAGING | | | | + + + + + documented in this encounter Visit Diagnoses Not on filedocumented in this encounter
--- OUTSIDE RECORDS SUMMARY | ~2019-08-31 | XMS | Clinical Summary ---
Demographics + + + | Address | [address] | | | [place] [address] | + + + | Home Phone [...] [place] | | | | | [address] | | + + + + + | Tanika Jean | ECON | Unknown | | + + + + + Care Team Providers + +------+ + | Care Learning And Development Assistant Name | Role | Phone | + +------+ + | No, Physician | PCP | Unavailable | + +------+ + Allergies + + [...] | 2 times daily. | | | 420 | | e | | tablet | [...] | mouth Daily. | tablet | | /20 | | e | | | | [...] | | | | type ([facility]) | | | | | | [...] tablet by | 28 | 0 | 05/1 | | Activ | | amoxicillin-clavulan | mouth 2 times daily. | tablet | | 07/23 | | e | | ate (AUGMENTIN) | | | | 20 | | | | 500-125 mg per [...] automatically from request for surgery | | [id number] | + + + + + | Centrilobular emphysema | 08/10/2019 | + + + + + | Overview: Added automatically from request for surgery | | [id number] | + + + + + | [...] + + | 08/28/ | Telephone | Pulmonology | Aidee Mitchell RN | Results | | 2019 | | | | | +--------+ + + + + | 08/23/ | Telephone | Pulmonology | Alfonso Wallace MD | Results | | 2019 | | | | | +--------+ + + + + | 08/16/ | Telephone | Pulmonology | Aidee Mitchell RN | Results (biopsy | | 2019 | | | | results and plan of | | | | | | care instructions ) | +--------+ + + + + | 08/16/ | Orders Only | Pulmonology | Alfonso Wallace MD | Pneumonia of right | | 2020 | | | | upper lobe due to | | | | | | methicillin | | | | | | susceptible | | | | | | Staphylococcus | | | | | | aureus (MSSA) ([facility]) | | | | | | (Primary Dx) | +--------+ + + + + | 08/14/ | Anesthesia | | [place] Yeung | | | 2020 | Event | | ISAIAS Welch | | | | | | Rob Castillo MD | | +--------+ + + + + | 08/14/ | Surgery | | Alfonso Wallace MD | BRONCHOSCOPY | | 2020 | | | | ELECTROMAGNETIC | | | | | | NAVIGATION | +--------+ + + + + | 08/14/ | Hospital | | Alfonso Wallace MD | Personal history of | | 2019 | Encounter | | | tobacco use, | | | | | | presenting hazards | | | | | | to health; | | | | | | Centrilobular | | | | | | emphysema (HCC); | | | | | | Personal history of | | | | | | tobacco use, | | | | | | presenting hazards | | | | | | to health; | | | | | | Centrilobular | | | | | | emphysema (HCC) | +--------+ + + + + | 08/13/ | Clinical | Primary Care | Robbie Wyman | Exposure to | | 2019 | Support | | SANJU Ashley | SARS-associated | | | | | | coronavirus (Primary | | | | | | Dx) | +--------+ + + + + | 08/13/ | Preadmit | Pre-Admission | Alfonso Wallace MD | No Show | | 2019 | Visit | Testing | | | +--------+ + + + + | 08/13/ | Telephone | Pulmonology | Aidee Mitchell RN | Other (update | | 2019 | | | | regarding | | | | | | cancellation of | | | | | | procedure) | +--------+ + + + + | 08/09/ | Office | Pulmonology | Alfonso Wallace MD | Personal history of | | 2019 | Visit | | | tobacco use, | | | | | | presenting hazards | | | | | | to health (Primary | | | | | | Dx); Centrilobular | | | | | | emphysema (HCC); | | | | | | Mass of upper lobe | | | | | | of right lung; | | | | | | Chronic respiratory | | | | | | failure with hypoxia | | | | | | and hypercapnia | | | | | | (HCC) | +--------+ + + + + | 08/09/ | Telephone | Pulmonology | Alfonso Wallace MD | Other | | 2020 | | | | | +--------+ + + + + from [...] + + + + Plan of Treatment +--------+ + + + + | Date | Type | Specialty | Care Team | Description | +--------+ + + + + | 11/16/ | Appointment | Radiology | Alfonso Wallace MD | | | 2020 | | | [address] | | | | | | [place] | | | | | | [address] | | | | | | | | +--------+ + + + + + + + [...] + | Vaccine: Zoster (2 | | 01/26/2015 | | | of 3) | 5 | | | + + + + + | Adult Annual | | | | | Wellness Visit | 0 | | | + + + + + | Colorectal Cancer | | 04/05/2014 | | | Screening | 5 | | | | (Colonoscopy) | | | | + + + + + | Vaccine: | | 07/23/2019, 10/26/2015, | | | Dtap/Tdap/Td (4 - | 0 | 01/19/2012 | | | Td) | | | | + + + + + | Vaccine: | Completed | 01/14/2017, 10/26/2015, | | | Pneumococcal 65+ | | 06/14/2014, Additional history | | | | | exists | | + + + + + | Vaccine: Influenza | Completed | 02/07/2019, 02/07/2019, | | | | | 01/11/2017, Additional history | | | | | [...] | + +--------+ + + + | AFBJESSE ONLY | Routin | 08/15/2019 | | [...] | | esia | +---+--------+ + +--------+ + + + | CT GUIDED | Routin | 08/15/2019 | | Results for this | | STEREOTACTIC | e | 7:11 AM | | procedure are in the | | LOCALIZATION | | PDT | | results section. | + +--------+ + + + | MO BRNCHSC INCL | Routin | 08/15/2019 | | Results for this | | FLUOR GDNCE DX | e | 6:55 AM | | procedure are in the | | W/CELL WASHG SPX | | PDT | | results section. | + +--------+ + + + | HEMOGLOBIN AND | STAT | 08/15/2019 | | Results for this | | HEMATOCRIT | | 6:39 AM | | procedure are in the | | | | PDT | | results section. | + +--------+ + + + | BASIC METABOLIC | STAT | [...] section. | + +--------+ + + + from Last 3 Months Results XR Chest AP Portable (08/15/2019 9:35 [...] Procedure Note | + + | Blake, Bebeto Results In 08/15/2019 9:55 AM PDT | [...] | | | | Signed by: Jam Villafana, Mundo | | Sign Date/Time: 08/15/2019 9:52 AM | + + + +---------+ + + | Performing | Address | City/State/[facility] Cent[facility] | Phone Number | | Organization | [...] | | | | | performed at [facility], | | | | | | [address], [address], | | | | | | [place] [address] | | | | + + + + + + + + | Specimen | + + | | + + + + + + + | Performing | Address | City/State/Zipcode | Phone Number | | Organization | | | | + + + + + | [facility] | [address] | [place] [address] | [phone] | + + + + + CULTURE, FUNGUS (REFLEX RESULTS ONLY) (08/15/2019 8:46 AM PDT) + + + + + + | Component | Value | Ref Range | Performed | Pathologist | | | | | At | Signature | + + + + + + | Result 1 | Michelle | | KR | | | | parapsilosisComment: | | LABORATORY | | | | Light growthTesting | | | | | | performed by [facility], | | | | | | [address], | | | | | | [place] [address] | | | | + + + + + + + + | Specimen | + + | | + + + + + + + | Performing | Address | City/State/Zipcode | Phone Number | | Organization | | | | + + + + + | [facility] | [address] | [place] [address] | [phone] | + + + + + Culture, [...] [place] | | | | | | [address] | | | | + + + [...] at | | | | | | [facility], [address] | | | | | | [place] | | | | | | [address] | | | | + + + + + + + + | Specimen | + + | | + + + + + + + | Performing | Address | City/State/Zipcode | Phone Number | | Organization | | | | + + + + + | [facility] | [address] | [place] [address] | [phone] | + + + + + CHRISTOPHER De Jesus (08/15/2019 8:46 AM PDT) + + + + + + | Component | Value | Ref Range | Performed | Pathologist | | | | | At | Signature | + + + + + + | SOURCE: | BRONCHIAL LAVAGEComment: | | [facility] | | | | Testing performed at | | LABORATORY | | | | [facility], [address] [facility] | | | | | | [place] | | | | | | [address] | | | | + + + [...] | | | | | performed at [facility], | | | | | | [address], | | | | | | [facility] [address] | | | | + + + + + + + + | Specimen | + + | | + + + + + + + | Performing | Address | City/State/Zipcode | Phone Number | | Organization | | | | + + + + + | [facility] | [address] | [place] [address] | [phone] | + + + + + Jesse WHITE (08/15/2019 8:46 AM PDT) + + [...] RESULT | Testing performed at | | KR | | | | [facility], [address] [facility] | | LABORATORY | | | | [place], [place] | | | | | | [id number]: Testing | | | | | | performed at [facility], [address] | | | | | | [facility], | | | | | | [place] [address] | | | | + + + + + + + + | Specimen | + + | | + + + + + + + | Performing | Address | City/State/Zipcode | Phone Number | | Organization | | | | + + + + + | [facility] | [address] | [place] [address] | [phone] | + + + + + CHRISTOPHER [...] RESULT | Testing performed at | | [facility] | | | | [facility], [address] [facility] | | LABORATORY | | | | [facility], [place], [place] | | | | | | [id number]: Testing | | | | | | performed at [facility], [address] | | | | | | [facility], | | | | | | [place] [address] | | | | + + + + + + + + | Specimen | + + | | + + + + + + + | Performing | Address | City/State/Zipcode | Phone Number | | Organization | | | | + + + + + | [facility] | [address] | [place] [address] | [phone] | + + + + + Culture, Fungus (08/15/2019 8:46 AM PDT) + + + + + + | Component | Value | Ref Range | Performed | Pathologist | | | | | At | Signature | + + + + + + | Specimen | BRONCHIAL LAVAGEComment: | | [facility] | | | Source | RUL SPEC 2Testing | | LABORATORY | | | | performed at [facility];[address] | | | | | | [address];[place], [place] | | | | | | [address] | | | | + + + + + + | Fungus | Preliminary | | [facility] | | | (Mycology) | reportComment: Testing | | LABORATORY | | | Culture | performed by [facility], | | | | | | [address], | | | | | | [place] [address] | | | | + + + + + + + + | Specimen | + + | | + + + + + + + | Performing | Address | City/State/Zipcode | Phone Number | | Organization | | | | + + + + + | [facility] | [address] | [place] [address] | [phone] | + + + + + Medical Cytology (08/15/2019 8:46 AM PDT) + + | Specimen | + + | Tissue - | | Bronchoscope, device | | (physical object) | + + + + + | Narrative | Performed At | + + + | ORDERING | [place] [facility] | | PHYSICIAN:Alfonso Wallace MD PATIENT NAME:DAUGHERTYKEVIN RODRIGUEZ SR. | INCYTE | | FRANKIGENDER: Brennan : 1950 SPECIMEN(S): A RT UPPER [...] with thepatient's concurrent biopsies | | | ([id number]).AMB:emb PERFORMING LABORATORY:The technical component was | | | performed by [facility], [address] [place] [address] | | | [place] [address] (Pressure Dispatcher: Ramses Purdy D.O.; CLIA#: | | | [id number]).Professional interpretation was performed by [facility] | | | [facility], [address], | | | [place] [address] (Pressure Dispatcher: Yoandy Kirkland M.D.; CLIA#: | | | [id number]). Diagnostician: Yoel SLAUGHTER | | | ([facility])CytotechnologistDiagnostician: Nata Amin Backer | | [...] with the | | |patient's concurrent biopsies ([id number]). | | |AMB:emb | | | | | |PERFORMING LABORATORY: | | |The technical component was performed by [facility], [address] [place] [address] (Pressure Dispatcher: Ramses Purdy D.O.; CLIA#: [id number]). | | |Professional interpretation was performed by [facility], [address] [address] (Pressure Dispatcher: Yoandy Kirkland M.D.; CLIA#: [id number]). | | | | | |Diagnostician: Yoel SLAUGHTER ([facility]) | | |Accounts Payable Technician | | |Diagnostician: Nata Gallego MD | [...] use, | | | presenting hazards to tiskilwa), J43.2 (centrilobular emphysema) FINAL | | | PATHOLOGIC DIAGNOSIS:Right upper lobe lung, biopsies:- Fragments of | | | reactive, inflamed bronchial mucosa, negative for granulomas, necrosis | | | or malignancy. See Comment. COMMENT:Please correlate these results | | | with the patient's concurrent cytology ([id number]). AMB:emb:C2NR | | | MICROSCOPIC EXAMINATION:Histologic sections [...] | | technical component was performed by [facility], [address] [place] [address] | | | [place] [address] (Pressure Dispatcher: Nata Gallego MD; CLIA# | | | [id number]). Professional interpretation was performed by[facility] | | | [facility], | | | [place] [address] (Pressure Dispatcher: Yoandy Kirkland M.D.; CLIA#: | | | [id number]). Diagnostician: Nata Gallego | | | MDPathologistElectronically Signed 08/16/2019 | | | | | |PERFORMING LABORATORY: | | |The technical component was performed by [facility], [address] [place] [address] (Pressure Dispatcher: Nata Gallego MD; CLIA# [id number]). Professional interpretation was performed by | | |[facility], [address] [address] (Pressure Dispatcher: Yoandy Kirkland M.D.; CLIA#: [id number]). | | | | | |Diagnostician: Nata [...] | | | + +---------+ + + Airway (08/15/2019 8:14 AM PDT) + + [...] medication documentation. | | + + + CT Guided Stereotactic Localization (08/15/2019 [...] | | | | Signed by: Jam Lainez, Neri | | Sign Date/Time: 08/15/2019 11:45 AM [...] Performed At | + + + | [facility] | | [facility] | | | Patient Name: Kevin Daugherty | | | Procedure Date: 08/15/2019 6:55 AMMRN: [id number] | | | Date of : 1950Note [...] | | | navigation bronchoscopy utilizing the [address] system | | | was performed. [...] On: | | | 08/15/2019 6:55 AM [facility] | | | Department | | |This report has been signed electronically. | | |Number of Addenda: 0 | | | | | |Note Initiated On: 08/15/2019 6:55 AM | | | | | | [facility] - Endoscopy Department | | + [...] Testing | 39.0 - 50.0 % | [facility] | | | | performed at [facility];[address] | | LABORATORY | | | | [address];[place], [place] | | | | | | [address] | | | | + + + + + + + + | Specimen | + + | Blood | + + + + + + + | Performing | Address | City/State/Zipcode | Phone Number | | Organization | | | | + + + + + | [facility] | [address] [facility] | [place] [address] | [phone] | + + + + + Basic [...] | | | | | performed at [facility];[address] | | | | | | [facility];[place], [place] | | | | | | [address] | | | | + + + + + + + + | Specimen | + + | Blood | + + + + + + + | Performing | Address | City/State/Zipcode | Phone Number | | Organization | | | | + + + + + | [facility] | [address] | [place] [address] | [phone] | + + + + + POC Coronavirus (COVID-19) NAAMonica (08/14/2019 5:22 PM PDT) + + + [...] + + | Tissue | + + from Last 3 Months Insurance [...] +--------+ +---------+--------+ | MEDICARE | MEDICA | [id number] | 09/03/18 | [phone] | | Medica | | | RE | | 97-Pre | 5 | | re | | | PART A | | sent | | | | | | AND B | | | | | | + +--------+ +--------+ +---------+--------+ | [employer] | MODA | [id number] | 07/08/19 | | | Medica | [...] | + +--------+ +--------+ + + | Kevin Daugherty | Person | Self | [birth year] | [address] | | Franki Sr. | al/Fam | | 1951 | [phone] | [place], [place] | | | [place] | | | [address] (Home) | [address] | + +--------+ +--------+ + + | Kevin Daugherty | Person | Self | [birth year] | [address] | | Franki Sr. | al/Fam | | 1951 | [phone] | [place], [place] | | | [place] | | | 7 (Home) | [address] | + +--------+ +--------+ + + | Kevin Daugherty | Person | Self | [birth year] | | [address] | | Franki Sr. | al/Fam | | 1951 | [phone] | [place], [place] | | | [place] | | | 7 (Home) | [address] | + +--------+ +--------+ + + Advance Directives + + + + + | Type | Date Recorded | Patient | Explanation | | | | Souvenir Assembler | | + + + + + | Power of | | | | | Survey Interviewer | | | | + + + + + | Advance | 08/11/2019 9:42 | | | | Directive | AM | | | + + + + +
--- OUTSIDE RECORDS SUMMARY | ~2019-08-31 | XMS | Encounter Summary ---
Demographics + + + | Address | [address] | | | [place] [address] | + + + | Home Phone [...] | Author | [facility] | | | and [place] | + + + | Organization | [facility] | | | and [place] | + + + | Address | Unknown | + + + | Phone | Unavailable | + + + Support + + + + + | Name | Relationship | Address | Phone | + + + + + | Palak Aguilar | ECON | [address] | | | | | [address] | | + + + + + | Tanika Jean | ECON | Unknown | | + + + + + Care Team Providers + +------+ + | Care Child Psychiatrist Name | Role | Phone | + [...] + + | 06/18/ | Telephone | [facility] [place] | [place], | Results (Walkiing | | 2016 | | PULMONARY [address] | Ling Frazier MD | oximetry ) | | | | [place], | | | | | | [place] [address] | | | | | | [phone] | | | +--------+ + + + [...] | 2020 | | | [address] | | | | | | [place] | | | | | | [address] | | | | | | | [...]
--- OUTSIDE RECORDS SUMMARY | ~2019-08-31 | XMS | Encounter Summary ---
Demographics + + + | Address | [address] | | | [place] [address] | + + + | Home Phone [...] #[address] | | | | | [address] | | + + + + + | Tanika Jean | ECON | Unknown | | + + + + + Care Team Providers + +------+ + | Care Tester Vibrator Equipment Name | Role | Phone | + +------+ + | Jose Angel Reina MD | PCP | | + +------+ + Encounter Details +--------+ + + + + | Date | Type | Department | Care Team | Description | +--------+ + + + + | 09/25/ | Orders Only | [facility] [place] | Claudia Michelle, | Nocturnal hypoxemia | | 2015 | | PULMONARY [address] | RN | due to emphysema | | | | [place], | | ([facility]) | | | | [place] [address] | | | | | | [phone] | | | +--------+ + + + [...] | | | | | [place], [place] | | | | | | [address] | | | | | | | | +--------+ + + + + documented as of this encounter Visit Diagnoses + + | Diagnosis | + + | 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
--- OUTSIDE RECORDS SUMMARY | ~2019-08-31 | XMS | Encounter Summary ---
Demographics + + + | Address | [address] | | | [place] [address] | + + + | Home Phone [...] #[address] | | | | | [address] | | + + + + + | Tanika Jean | ECON | Unknown | | + + + + + Care Team Providers + +------+ + | Care Exhibition Designer Name | Role | Phone | [...] + | 03/16/ | Office | [facility] | [place], | COPD (chronic | | 2012 | Visit | PULMONARY [address] | Ling Frazier MD | obstructive | | | | [place], | | pulmonary disease) | | | | [place] [address] | | (HCC) (Primary Dx); | | | | [phone] | | Tobacco abuse; | | | [...] So, don't give u p! Go Cold [place]: Most ex-smokers quit cold turkey. Trying to [...] your behavior and peer support. Call the [facility] Quitline for more information. 281-EAXP-WWU (726-207-3910). Low-cost or free programs are offered by many hospitals, local chapters of the [employer] [employer] (898-537-8138) a nd the [employer] (312-638-2982). Support at home is important too. Non-smokers can help by offering praise and encouragement. If the smoker fails to quit, encourage them to try again! Mobs-Kyv-Ybemfaj Medicines: For those who can't quit on [...] smoking, visit the following links: National Cancer [place] , Clearing the Air, Quit Smoking Today - an online mejias klet. http://www.smokefree.gov/pubs/clearing_the_air.pdf Smokefree.gov http://smokefree.gov/ QuitNet http://www.quitnet.com/ 3145-4174 Rudy K[facility]roughBarn[facility], [address] [place] [address]. All rights reserve d. This information is not intended as a substitute for professional medical care. Always fo llow your healthcare professional's instructions. documented in this encounter Progress Notes Ling Lowe MD - 03/16/2013 2:39 PM PSTFormatting of this note might be differe nt from the original. Pulmonary Follow Up Note MD Sarah Johnson [facility] [address] [place], [address] HPI Nazario Aguilar Sr. is a 62 y.o. male patient of Jose Angel Reina here today for foll ow up of COPD. At their last visit, we had continued his Advair, Spiriva and Daliresp. Since their last vi sit he feels like he has been doing pretty well. He notes that he was at [facility] for one night with vomiting, which [...] He is currently on 3 L[facility] at [facility]. He reports good compliance. Past Medical History [...] made to ensure accuracy; however, inadvertent computerized community relations director errors may be pre sent. documented in [...] [place] | | | | | | [id number] | | | | | | | [...]
--- OUTSIDE RECORDS SUMMARY | ~2019-08-31 | XMS | Encounter Summary ---
Demographics + + + | Address | [address] | | | [place] [address] | + + + | Home Phone [...] [place] | | | | | [address] | | + + + + + | Tanika Jean | ECON | Unknown | | + + + + + Care Team Providers + +------+ + | Care Fibreglass Gun Hand Name | Role | Phone | + +------+ + | No, Physician | PCP | Unavailable | + +------+ + Encounter Details +--------+ + + + + | Date | Type | Department | Care Team | Description | +--------+ + + + + | 08/13/ | Preadmit | [facility] | Alfonso Wallace MD | No Show | | 2020 | Visit | CENTER PREADMIT | [address] | | | | | CLINIC [address] | [place], [place] | | | | | [address]VD [place], [place] | [address] | | | | | [address] | | | | | | [phone] | | | +--------+ + + + [...] [place] | | | | | | [address] | | | | | | | | +--------+ + + + + documented as of this encounter Visit Diagnoses Not on filedocumented in this encounter"
--- OUTSIDE RECORDS SUMMARY | ~2019-08-31 | XMS | Encounter Summary ---
Demographics + + + | Address | [address] | | | [place] [address] | + + + | Home Phone [...] + | Author | [facility] | | | and [place] | + + + | Organization | [facility] | | | and [place] | + + + | Address | Unknown | + + + | Phone | Unavailable | + + + Support + + + + + | Name | Relationship | Address | Phone | + + + + + | Palak Aguilar | ECON | [address] | | | | | [address] | | + + + + + | Tanika Jean | ECON | Unknown | | + + + + + Care Team Providers + +------+ + | Care In Home Baby Sitter Name | Role | Phone | + [...] + + | 05/23/ | Telephone | [facility] | Karlos Craig, | Other | | 2014 | | PHYSIATRY [address] | [address] | | | | | [address] | [place], [place] | | | | | [place], [place] | [address] | | | | | [address] | | | | | | [phone] | | | +--------+ + + + [...] [place] | | | | | | [address] | | | | | | | | +--------+ + + + + documented as of this encounter Visit Diagnoses Not on filedocumented in this encounter"
--- OUTSIDE RECORDS SUMMARY | ~2019-08-31 | XMS | Clinical Summary ---
Demographics + + + | Address | [address] | | | [place] [address] | + + + | Home Phone [...] + + | Author | [facility] (Historical as of | | | 11-19-18) | + + + | Organization | [facility] (Historical as of | | | 11-19-18) | + + + | Address | Unknown | + + + | Phone | Unavailable | + + + Support + + + + + | Name | Relationship | Address | Phone | + + + + + | Palak Daugherty | ECON | [address] | | | | | [address] | | + + + + + Care Team Providers + +------+ + | Care Chinese Language Professor Name | Role | Phone | + [...] | | 01/21/2015, 12/28/2013, | | | (Season Ended) | 0 | 03/16/2013, Additional history | | | [...] MA - MODA | MA - | [id number] | Medica | | | | | [...] [address] | | | thao/Benson | | 1951 | [phone] | [place] | | | [place] | | | 1939 | [address] | + +--------+ +--------+ + +
--- OUTSIDE RECORDS SUMMARY | ~2019-08-31 | XMS | Encounter Summary ---
Demographics + + + | Address | [address] | | | [place] [address] | + + + | Home Phone | | + + + | Preferred Language | Unknown | + + + | Marital Status | | + + + | Advent Affiliation | 1061 | + + + | Race | Unknown | + + + | Ethnic Group | Unknown | + + + Author + + + | Author | [facility] | | | and [place] | + + + | Organization | [facility] | | | and [place] | + + + | Address | Unknown | + + + | Phone | Unavailable | + + + Support + + + + + | Name | Relationship | Address | Phone | + + + + + | Palak Gipsonock | ECON | [address] | | | | | [address] | | + + + + + | Tanika Jean | ECON | Unknown | | + + + + + Care Team Providers + +------+ + | Care Farm Machinery Assembler Name | Role | Phone | [...] | | | | | | [place] [address] | | | | | | [phone] | | | +--------+--------+ + + + [...] [place] | | | | | | [address] | | | | | | | [...]
--- OUTSIDE RECORDS SUMMARY | ~2019-08-31 | XMS | Encounter Summary ---
Demographics + + + | Address | [address] | | | [place] [address] | + + + | Home Phone [...] #[address] | | | | | [address] | | + + + + + | Tanika Jean | ECON | Unknown | | + + + + + Care Team Providers + +------+ + | Care Manager Of Regulatory Affairs Name | Role | Phone | + [...] | | | | History of | [address] | [address] | | | | | seizures | [place], | [place], | | | | | | [place] [address] | [place] [address] | | | | | | Phone: | Phone: | | | | | | [phone] | [phone] | | | | | | Fax: | Fax: | | | | | | [phone] | [phone] | +--------+ + + + + + Encounter Details +--------+---------+ + + + | Date | Type | Department | Care Team | Description | +--------+---------+ + + + | 12/19/ | Office | [facility] | Roderick Williamson MD [address] | Ataxia (Primary Dx); | | 2012 | Visit | NEUROLOGY [place] | [address] | Claustrophobia; | | | | [facility], | [address], | Tremor; Seizure | | | | [address] [facility] [address] | disorder (HCC) | | | | [place] [address] | [phone] | | | | | [phone] | | | +--------+---------+ + + + [...] MRI. documented in this encounter Progress Notes Roedrick Williamson MD - 12/19/2012 4:00 PM PDTFormatting [...] minutes. Patient reports history of EEG at [facility] that was reported to be normal. He [...] [place] | | | | | | [address] | | | | | | | [...]
--- OUTSIDE RECORDS SUMMARY | ~2019-08-31 | XMS | Encounter Summary ---
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 At their last visit, we had kept him on Spiriva, Advair and Daliresp. Since their last visi t he feels like he has been doing okay. He had some type of virus about a month ago and was seen at [facility], but it sounds like this was [...] [facility]. He reports good compliance. He does not [...] Diabetes mellitus (HCC) HTN (hypertension) Seizure disorder ([facility]) Restless legs syndrome Seasonal allergies PLMD [...] tablet Take 81 mg by mouth Daily. qttpszi-tposeuywomyhz-vjogmibb (HEADACHE RELIEF) 250-250-65 MG per tablet Take [...] made to ensure accuracy; however, inadvertent computerized aesthetics instructor errors may be pre sent. documented in [...] [place] | | | | | | [address] | | | | | | | [...]
--- OUTSIDE RECORDS SUMMARY | ~2019-08-31 | XMS | Encounter Summary ---
Demographics + + + | Address | [address] | | | [place] [address] | + + + | Home Phone [...] + | Author | [facility] | | | and [place] | + + + | Organization | [facility] | | | and [place] | + + + | Address | Unknown | + + + | Phone | Unavailable | + + + Support + + + + + | Name | Relationship | Address | Phone | + + + + + | Palak Aguliar | ECON | [address] | | | | | [address] | | + + + + + | Tanika Jean | ECON | Unknown | | + + + + + Care Team Providers + +------+ + | Care Cask Maker Name | Role | Phone | [...] | | finding of | [address], | [place], [place] | | | | | lung field | [place] [address] | [address] | | | | | | Phone: | Phone: | | | | | | [phone] | [phone] | | | | | | Fax: | Fax: | | | | | | [phone] | [phone] | + +--------+ + + + + Encounter Details +--------+---------+ + + + | Date | Type | Department | Care Team | Description | +--------+---------+ + + + | 08/09/ | Office | [facility] | Alfonso Wallace MD | Personal history of | | 2019 | Visit | PULMONOLOGY [address] | [address] | tobacco use, | | | | [address] | [place], [place] | presenting hazards | | | | [place], [place] | [address] | to health (Primary | | | | [address] | | Dx); Centrilobular | | | | [phone] | | emphysema (HCC); | | | [...] file Gets together: Not on file Attends confucianist service: Not on file Active member of [...] Wallace MD Pulmonary and Critical Care Medicine [facility] [address], [place] [address] documented in this enco unter Plan of Treatment +--------+ + + + + | Date | Type | Specialty | Care Team | Description | +--------+ + + + + | 11/16/ | Appointment | Radiology | Alfonso Wallace MD | | | 2019 | | | [address] | | | | | | [place], [place] | | | | | | [address] | | | | | | | [...]
--- OUTSIDE RECORDS SUMMARY | ~2019-08-31 | XMS | Encounter Summary ---
Demographics + + + | Address | [address] | | | [place] [address] | + + + | Home Phone [...] #[address] | | | | | [address] | | + + + + + | Tanika Jean | ECON | Unknown | | + + + + + Care Team Providers + +------+ + | Care Food Management Aide Name | Role | Phone | + [...] Frazier MD | | | | | [place], | | | | | | [place] [address] | | | | | | [phone] | | | +--------+--------+ + + + [...]
--- OUTSIDE RECORDS SUMMARY | ~2019-08-31 | XMS | Encounter Summary ---
Demographics + + + | Address | [address] | | | [place] [address] | + + + | Home Phone [...] #[address] | | | | | [address] | | + + + + + | Tanika Jean | ECON | Unknown | | + + + + + Care Team Providers + +------+ + | Care Dental Laboratory Technology Teacher Name | Role | Phone | + [...] + | 12/28/ | Office | [facility] | [place], | COPD (chronic | | 2013 | Visit | PULMONARY [address] | Ling Frazier MD | obstructive | | | | [place], | | pulmonary disease) | | | | [place] [address] | | (Primary Dx); | | | | [phone] | | Nocturnal hypoxemia | | | | | | due to emphysema | | | | | | ([facility]); Periodic limb | | | | [...] Ling Lowe MD - 12/28/2013 1:29 PM [facility] offers free smoking cessation classes. We [...] So, don't give u p! Go Cold [place]: Most ex-smokers quit cold turkey. Trying to [...] behavior and peer support. Call the [facility] Quitline for more information. 564-AHTN-YAD (075-963-7048). Low-cost or free programs are offered by many hospitals, local chapters of the [place] [employer] (350-380-6938) a nd the [place] [employer] (201-784-3621). Support at home is important too. Non-smokers can help by offering praise and encouragement. If the smoker fails to quit, encourage them to try again! Ucmu-Mlz-Zrvbwxq Medicines: For those who can't quit on [...] such as bupropion (Zyban, Wellbutrin), varenicline (Chantix, Huslia ix), a niocotine inhaler or nasal spray. [...] smoking, visit the following links: National Cancer [place] , Clearing the Air, Quit Smoking Today - an online mejias klet. http://www.smokefree.gov/pubs/clearing_the_air.pdf Smokefree.gov http://smokefree.gov/ QuitNet http://www.quitnet.com/ 5077-4830 Rudy Min, [address] [facility], [place] [address]. All rights reserve d. This information is [...] regularly. He just finished physical therapy at [facility]. He was given e xercises to do when he was discharged, and he reports he is doing them twice daily for 15 mi nutes. He is not doing any regular walking. He does cough chronically, and produces mucous sometimes. He has not had hemoptysis. He has been evaluated for nocturnal oxygen and does use it. He is currently on 3 LPM at [facility]. He reports good compliance. He is [...] of Breath. Dx: 496 RINA: [facility] [place] [facility] vial 4 aspirin 325 mg tablet [...] made to ensure accuracy; however, inadvertent computerized event management consultant errors may be pre sent. Electronically signed [...] | | | | | [place] | | | | | | [address] | | | | | | | [...]
--- OUTSIDE RECORDS SUMMARY | ~2019-08-31 | XMS | Encounter Summary ---
Demographics + + + | Address | [address] | | | [place] [address] | + + + | Home Phone [...] #[place] | | | | | [address] | | + + + + + | Tanika Jean | ECON | Unknown | | + + + + + Care Team Providers + +------+ + | Care Hog Dropper Name | Role | Phone | + [...] | | | hazards to | | [address] Phone: | | | | | health | | [phone] | | | | | Centrilobula | | Fax: | | | | | r emphysema | | [phone] | | | | | ([facility]) | | | | | | | Procedures | | | | | | | BRONCHOSCOPY | | | | | | | | | | | | | | ELECTROMAGNE | | | | | | | TIC | | | | | | | NAVIGATION | | | | | | | [[id number]] | | | +--------+--------+ + + + + Encounter Details +--------+ + + + + | Date | Type | Department | Care Team | Description | +--------+ + + + + | 08/14/ | Hospital | [facility] | Alfonso Wallace MD | Personal history of | | 2020 | Encounter | [facility] | [address] | tobacco use, | | | | [address] | [place], [place] | presenting hazards | | | | [address] | [id number] | to health; | | | | [place], [place] | | Centrilobular | | | | [address] | | emphysema (HCC); | | | | [phone] | | Personal history of | | [...] [place] | | | | | | [address] | | | | | | | [...] + +--------+ + + + | AFB SMEAR ONLY | Routin | 08/15/2019 | [...] section. | + +--------+ +---+ + | [facility] | Routin | 08/15/2019 | [...] | | Signed by: Jam Villafana, Mundo Sign Date/Time: | | | 08/15/2019 9:52 AM [...] | | | | | performed at [facility], | | | | | | [address], [address], | | | | | | [facility] [address] | | | | + + + + + + + + | Specimen | + + | | + + + + + + + | Performing | Address | City/State/Zipcode | Phone Number | | Organization | | | | + + + + + | [facility] | [address] | [place] [address] | [phone] | + + + + + CULTURE, FUNGUS (REFLEX RESULTS ONLY) (08/15/2019 8:46 AM PDT) + + + + + + | Component | Value | Ref Range | Performed | Pathologist | | | | | At | Signature | + + + + + + | Result 1 | Michelle | | [facility] | | | | parapsilosisComment: | | LABORATORY | | | | Light growthTesting | | | | | | performed by [facility], | | | | | | [address], | | | | | | [facility] [address] | | | | + + + + + + + + | Specimen | + + | | + + + + + + + | Performing | Address | City/State/Zipcode | Phone Number | | Organization | | | | + + + + + | [facility] | [address] | [place] [address] | [phone] | + + + + + Culture, AFB Smear (08/15/2019 8:46 AM PDT) + + + + + + | Component | Value | Ref Range | Performed | Pathologist | | | | | At | Signature | + + + + + + | SOURCE: | BRONCHIAL LAVAGEComment: | | [facility] | | | | Testing performed at | | LABORATORY | | | | [facility], [address] | | | | | | [place] | | | | | | [address] | | | | + + + [...] | | | | | performed at [facility], | | | | | | [address], | | | | | | [facility] [address] | | | | + + + + + + + + | Specimen | + + | | + + + + + + + | Performing | Address | City/State/Zipcode | Phone Number | | Organization | | | | + + + + + | [facility] | [address] | [place] [address] | [phone] | + + + + + AFB, [...] | | [facility] | | | | L, [address] | | LABORATORY | | | | [address], [place], [place] | | | | | | [id number]: Testing | | | | | | performed at [facility], [address] | | | | | | [address], | | | | | | [place] [address] | | | | + + + + + + + + | Specimen | + + | | + + + + + + + | Performing | Address | City/State/Zipcode | Phone Number | | Organization | | | | + + + + + | [facility] | [address] | [place] [address] | [phone] | + + + + + CHRISTOPHER [...] RESULT | Testing performed at | | [facility] | | | | [facility], [address] [facility] | | LABORATORY | | | | [place], [place] | | | | | | [address]Ydgijxj: Testing | | | | | | performed at [facility], [address] | | | | | | [facility] [address], | | | | | | [place] [address] | | | | + + + + + + + + | Specimen | + + | | + + + + + + + | Performing | Address | City/State/Zipcode | Phone Number | | Organization | | | | + + + + + | [facility] | [address] | [place] [address] | [phone] | + + + + + Giovana Batista (08/15/2019 8:46 AM PDT) + + + + + + | Component | Value | Ref Range | Performed | Pathologist | | | | | At | Signature | + + + + + + | Specimen | BRONCHIAL LAVAGEComment: | | [facility] | | | Source | RUL SPEC 2Testing | | LABORATORY | | | | performed at [facility];[address] | | | | | | [address];[place], [place] | | | | | | [address] | | | | + + + + + + | Fungus | Preliminary | | [facility] | | | (Mycology) | reportComment: Testing | | LABORATORY | | | Culture | performed by [facility], | | | | | | [address], | | | | | | [place] [address] | | | | + + + + + + + + | Specimen | + + | | + + + + + + + | Performing | Address | City/State/Zipcode | Phone Number | | Organization | | | | + + + + + | [facility] | [address] | [place] [address] | [phone] | + + + + + Culture, Quant (08/15/2019 8:46 AM PDT) + + + + + + | Component | Value | Ref Range | Performed | Pathologist | | | | | At | Signature | + + + + + + | Gram Stain | WBC'S SEEN | | KR | | | Result | | | [...] | [facility] | | | Result | [facility], [address] [facility] | | LABORATORY | | | | [facility] [place] | | | | | | [address] | | | | + + + [...] at | | | | | | [facility], [address] [facility] [address] | | | | | | [place], [place] | | | | | | [address] | | | | + + + + + + + + | Specimen | + + | | + + + + + + + | Performing | Address | City/State/Zipcode | Phone Number | | Organization | | | | + + + + + | [facility] | [address] | [place] [address] | [phone] | + + + + + Medical Cytology (08/15/2019 8:46 AM PDT) + + | Specimen | + + | Tissue - | | Bronchoscope, device | | (physical object) | + + + + + | Narrative | Performed At | + + + | ORDERING | [facility] | | PHYSICIAN:Alfonso Wallace MD PATIENT NAME:KEVIN DAUGHERTY SR. | INCYTE | | FRANKLINGENDER: Brennan : 1950 SPECIMEN(S): [...] with thepatient's concurrent biopsies | | | ([id number]).AMB:emb PERFORMING LABORATORY:The technical component was | | | performed by [facility], [address] [place] | | | [place] [address] ([address]eno Sewer: Ramses Purdy D.O.; CLIA#: | | | [id number]).Professional interpretation was performed by [facility] | | | [address], | | | [place] [address] ([address]eno Sewer: Yoandy Kirkland M.D.; CLIA#: | | | [id number]). Diagnostician: Yoel SLAUGHTER | | | ([facility])CytotechnologistDiagnostician: Nata Gallego | | | MDPathologistElectronically Signed [...] with the | | |patient's concurrent biopsies [id number]). | | |AMB:emb | | | | | |PERFORMING LABORATORY: | | |The technical component was performed by [facility], [address] [place] [address] ([address]eno Sewer: Ramses Purdy D.O.; CLIA#: [id number]). | | |Professional interpretation was performed by [facility], [address] [address] (Leno Sewer: Yoandy Kirkland M.D.; CLIA#: [id number]). | | | | | |Diagnostician: Yoel SLAUGHTER ([facility]) | | |Piccolo Mechanic | | |Diagnostician: Nata Gallego MD | [...] | | with the patient's concurrent cytology ([id number]). AMB:emb:C2NR | | | MICROSCOPIC EXAMINATION:Histologic sections [...] | | technical component was performed by [facility], [address] [place] [address] | | | [place] [address] (Leno Sewer: Nata Gallego MD; CLIA# | | | [id number]). Professional interpretation was performed by[facility] | | | Diagnostics, [facility], [address] [place] [address], | | | [place] [address] (Leno Sewer: Yoandy Kirkland M.D.; CLIA#: | | | [id number]). Diagnostician: Nata Gallego | | | MDPathologistElectronically Signed 08/16/2019 | | | | | |PERFORMING LABORATORY: | | |The technical component was performed by [facility], [address] [place] [address] (Leno Sewer: Nata Gallego MD; CLIA# [id number]). Professional interpretation was performed by | | |[facility], [address] [address] (Leno Sewer: Yoandy Kirkland M.D.; CLIA#: [id number]). | | | | | |Diagnostician: Nata [...] Signed by: Migel | [facility] | | Neri Polk Sign Date/Time: 08/15/2019 11:45 AM | | [...] Performed At | + + + | Sanket | [facility] | | [facility] | PROVATION | | CenterPulmonology | | | Patient Name: Kevin Daugherty | | | Procedure Date: 08/15/2019 6:55 AMMRN: [id number] | | | Date of : 1950Note [...] | | | navigation bronchoscopy utilizing the [employer] system | | | was performed. The [...] On: | | | 08/15/2019 6:55 AM [facility] - Endoscopy | | | Department | | |This report has been signed electronically. | | |Number of Addenda: 0 | | | | | |Note Initiated On: 08/15/2019 6:55 AM | | | | | | [facility] - Endoscopy Department | | + [...] [facility] | | | | performed at [facility];[address] | | LABORATORY | | | | [facility];[place], [place] | | | | | | [address] | | | | + + + + + + + + | Specimen | + + | Blood | + + + + + + + | Performing | Address | City/State/Zipcode | Phone Number | | Organization | | | | + + + + + | [facility] | [address] | [place] [address] | [phone] | + + + + + Basic [...] | >60Comment: GFR <60: | >60 | [facility] | | | GFR | CHRONIC KIDNEY [...] | | | | | | MDRD IDRI traceable | | | | | | equation.Testing | | | | | | performed at [facility] | | | | | | [facility];[place], [place] | | | | | | [address] | | | | + + + + + + + + | Specimen | + + | Blood | + + + + + + + | Performing | Address | City/State/Zipcode | Phone Number | | Organization | | | | + + + + + | [facility] | [address] | [place] [address] | [phone] | + + + + + documented [...] 2.5 mg/3 mL nebulizer | Given | 05/12/20 | 2.5 mg | | | | [...] | | | OR ESCALATING PAIN, Starting Wed | | | 08/15/19 at 0905, For 4 doses, | | | First dose must be lowest dose. | | | Use Pasero Sedation Scale. | | | [Opioid tolerant = One week or | | | longer, aeyeni-dcp-mwenf use of | | | at least [...] scheduled: AC, NPO, Daytime | | | 2033-2065 Use NIGHT DOSE for | | | doses scheduled: HS, 3AM, | | | Nighttime 1476-4998 If the BG is | | | [...] PRN, Nausea, Vomiting, | | | Starting Tu08/15/19 at 0905, | | | Recovery/Phase I [...]
--- OUTSIDE RECORDS SUMMARY | ~2019-08-31 | XMS | Encounter Summary ---
Demographics + + + | Address | [address] | | | [place] [address] | + + + | Home Phone [...] #[address] | | | | | [address] | | + + + + + | Tanika Jean | ECON | Unknown | | + + + + + Care Team Providers + +------+ + | Care Electronic Gluing Machine Operator Name | Role | Phone | + +------+ + | Jose Angel Reina MD | PCP | | + +------+ + Encounter Details +--------+ + + + + | Date | Type | Department | Care Team | Description | +--------+ + + + + | 06/15/ | Imaging | [facility] | Provider, | | | 2018 | Exam | [facility] | MD [address] | | | | | IMAGING [address] | Lisa Camejo | | | | | [address] [facility] | [place] [address] | | | | | [place] [address] | | | | | | [phone] | | | +--------+ + + + [...] [place] | | | | | | [address] | | | | | | | | +--------+ + + + + documented as of this encounter Procedures + +--------+ + + + | Procedure Name | Priori | Date/Time | Associated Diagnosis | Comments | | | ty | | | | + +--------+ + + + | XR KNEE LEFT 1 - 2 | Routin | 01/20/2017 | | Results for this | | VW | e | 8:20 PM | | procedure are in the | | | | PDT | | results section. | + +--------+ + + + documented in this encounter Results EDILMA Briceno 1 - 2 Vw (01/20/2017 8:20 PM PDT) + + | Specimen | [...]
--- OUTSIDE RECORDS SUMMARY | ~2019-08-31 | XMS | Clinical Summary ---
Demographics + + + | Address | [address] | | | [place] [address] | + + + | Home Phone [...] + + | Author | [facility] (Historical as of | | | 11-19-18) | + + + | Organization | [facility] (Historical as of | | | 11-19-18) | + + + | Address | Unknown | + + + | Phone | Unavailable | + + + Support + + + + + | Name | Relationship | Address | Phone | + + + + + | Palak Daugherty | ECON | [id number] | | | | | [address] | | + + + + + Care Team Providers + +------+ + | Care Fruit Rancher Name | Role | Phone | + [...] MA - MODA | [place] - | [id number] | Medica | | | | | [...] | meena | | | 1939 | [address] | + +--------+ +--------+ + +
--- OUTSIDE RECORDS SUMMARY | ~2019-08-31 | XMS | Encounter Summary ---
Demographics + + + | Address | [address] | | | [place] [address] | + + + | Home Phone [...] [address] | | | | | [address] | | + + + + + | Tanika Jean | ECON | Unknown | | + + + + + Care Team Providers + +------+ + | Care Veterinary Technologist Name | Role | Phone | [...] | | | | | | [place] [address] | | | | | | [phone] | | | +--------+--------+ + + + [...] | | | | | [place] | | | | | | [address] | | | | | | | [...]
--- OUTSIDE RECORDS SUMMARY | ~2019-08-31 | XMS | Encounter Summary ---
Demographics + + + | Address | [address] | | | [place] [address] | + + + | Home Phone [...] + | Palak Aguilar | ECON | #[id number] | | | | | [address] | | + + + + + | Tanika Jean | ECON | Unknown | | + + + + + Care Team Providers + +------+ + | Care Department Mgr Name | Role | Phone | + [...] + + | 03/16/ | Office | [facility] | Karlos Craig, | Lumbar facet | | 2012 | Visit | MEDICINE | MD [address] | arthropathy (Primary | | | | REHABILITATION [address] | [place] | Dx); Lumbalgia; | | | | [address] | [id number] | Tobacco dependence | | | | [place] | | | | | | [address] | | | | | | [phone] | | | +--------+---------+ + + + [...] + + + | Blood Pressure | 138/70 | 03/16/2013 3:44 PM | | | | | PST | | + + + + + | Pulse | 80 | 03/16/2013 3:44 PM | | | | | PST | | + + + + + | Temperature | - | - | | + + + + + | Respiratory Rate | 18 | 03/16/2013 3:44 PM | | | | | PST | | + + + + + | Oxygen Saturation | - | - | | + + + + + | Inhaled Oxygen | - | - | | | Concentration | | | | + + + + + | Weight | 102.1 kg (225 lb) | 03/16/2013 3:44 PM | | | | | PST | | + + + + + | Height | 175.3 cm (5' 9") | 03/16/2013 3:44 PM | | | | | PST | | + + + + + | Body Mass Index | 33.23 | 03/16/2013 3:44 PM | | | | | PST | | + + + + + documented in this encounter Patient Instructions Patient Instructions Karlos Craig MD - 03/16/2013 4:28 PM PSTIt is recommended that yo u quit smoking as discussed during today's appointment. Please attend the injection appointment with Micah Del Cid MD. If his office has not co ntacted you within one week, to schedule the injection, please contact my clinic. Your inje ction will be performed at [facility]. Please take note of weather your pain is significantly reduced in the hours immediately following the injecti on. Return to the clinic in 5 weeks. documented in this encounter Progress Notes Karlos Craig MD - 03/16/2013 4:31 PM PSTThis office note has been dictated. Job ID# [id number] signed by Karlos Craig MD at 03/16/2013 6:20 PM Arleen Lo RN - 03/16/2013 3:46 PM PSTPatient continues to have unsteady gait, Patient using 4WW to day. Patient states 5/10 right shoulder pain. Electronically signed by VERÓNICA Swain t 03/16/2013 6:20 PM Karlos Berumen MD - 03/16/2013 12:00 AM PST PHYSICAL MEDICINE AND REHAB [address] [place] [address] FAX: [phone] OFFICE VISIT PHYSICAL MEDICINE REHABILITATION PROGRESS NOTE CONSULT REQUESTED BY: Ling Lowe MD PRIMARY CARE PROVIDER: Jose Angel Reina MD PATIENT IDENTIFICATION: A 62-year-old male with ataxia, emphysema, seizures, and back pain. HISTORY OF PRESENT ILLNESS: Mr. Aguilar is seeing me for back pain. He was last seen by me February 16, 2013. At that time, it was felt that advanced imaging of the lumbar spine was required in order to make meaningful diagnosis and treatment of his back pain. It was felt that he may have lumbar spinal stenosis. A lumbar MRI was requested. He indicates that his current back pain is a 6/10 on a numerical pain scale. He indicates that his pain is consta nt in timing. He indicates that his pain is dull in quality. He indicates that his pain is increased with standing and walking and reduced by squatting or sitting down. He denies inc ontinence of bowel or bladder. He denies saddle anesthesia. He reports some pain radiating into the buttocks bilaterally. He has not noted pain radiating into the feet or forelegs. H e denies numbness or paresthesia in the lower extremities. He reports a feeling of fatigue and weakness in both lower extremities. Overall, Mr. Aguilar denies significant change in s ymptoms since he was last seen a month ago. In the interim, he has had his imaging. He had lumbar MRI February 22, 2013. This imaging was personally reviewed by me and reviewed in de tail with Mr. Aguilar today. Mr. Aguilar continues to smoke frequently. His smokes as well. Today we discussed smok ing cessation. He is advised to quit smoking. We discussed smoking and its contribution tow ards lumbar spondylosis. We discussed that it slows bone mineralization and increases risk of infection in those that have surgery. We discussed that there is increased risk of cance r, breathing problems, heart attack and stroke. He is aware of these issues. He agrees abou t the necessity of needing to quit. He was encouraged to continue to attempt quitting over and over. We discussed that the success rate of quitting increases with each successive try . ALLERGIES 1. LEVAQUIN. 2. CHANTIX. CURRENT MEDICATIONS 1. Tylenol. 2. Albuterol. 3. Aspirin. 4. Lipitor. 5. Carbamazepine. 6. Vitamin B12. 7. Flonase. 8. Advair Diskus. 9. Lisinopril. 10. Metformin. 11. Requip. 12. Spiriva inhaler. REVIEW OF SYSTEMS: Mr. Aguilar denies nausea, vomiting, fever, chills, shortness of breath, or chest pain. He denies skin breakdown or rash. All other review of systems negative. PHYSICAL EXAMINATION VITAL SIGNS: Heart rate 80, respiratory rate 18, blood pressure 138/70, weight 225 pounds, height 5 feet 9 inches. GENERAL: No acute distress. Alert and oriented to person, place, time and situation. Odor o f tobacco smoke. Accompanied by . ABDOMEN: Nontender. Positive for bowel sounds. Mild obesity. BACK: Tenderness to palpation over lumbar bony spine. Diffuse tenderness to palpation over lumbar paraspinal muscles. Se ated straight leg raise equivocal. Harley test negative. EXTREMITIES: Exam reveals no club tasia in the lower extremities. There is clubbing in the fingers of upper extremities. No cy anosis noted. No edema in upper or lower extremities. NEUROLOGICAL: Exam demonstrates persi sting ataxia. There is mild, diffuse, nonfocal weakness in the muscles of the lower extremi ties. Reflexes are 1+ over patellae and Achilles of both lower extremities. DATABASE: Lumbar MRI from February 22, 2013 imaging personally reviewed by me demonstrates multilevel facet arthritis, most severe at L4-5 and L5-S1 bilaterally. There was no signifi cant central canal stenosis. There is moderate neural foraminal narrowing at left L3-4. ASSESSMENT 1. LUMBAR FACET ARTHRITIS AT BILATERAL L4-5 AND L5-S1. 2. LUMBALGIA, ICD-9: 724.2. 3. TOBACCO DEPENDENCE, ICD-9: 305.1. PLAN: More than 3 minutes was spent today with Mr. Aguilar, advising and discussing smoking cessation. HE IS ALLERGIC TO CHANTIX. He reports that he has tried other ways of quitting, including nicotine replacement. Today we reviewed the reasons to quit. We discussed that despite his failures at quitting in the past he should continue to attempt to quit. We disc ussed that if he continues to attempt to quit, the likelihood of him becoming successful in creases. His , who is present with him today, was also encouraged to consider smoking c essation. We discussed that in order for them to be successful both of them should likely c onsider trying to quit at the same time. It is felt that his back pain is likely related to lumbar facet arthritis as indicated by h is physical exam and imaging. In effort to treat his back pain he will have diagnostic and therapeutic bilateral L4-5 and L5- S1 zygapophyseal facet steroid injections under fluoros copic guidance. He is encouraged to follow up with [facility] as previously requested to work up, diagnose and treat his persisting ataxia. He will return to the clinic in 6 weeks' time to review his response to facet steroid injections. He was encouraged to continue exercises as outlined in previous physical therapy. He was encouraged to discuss approval for using ant i- inflammatory medication with his primary care physician. We discussed that anti-inflamma tory medications such as Aleve do come with some risk. He should discuss whether or not he is cleared or safe to use these medications on a routine basis with his primary care provid er. Thank you for allowing me to be involved in the care of your patient. If you have any quest ions regarding the care of Mr. Aguilar, please do not hesitate to call. Karlos Craig Jr, MD GEM / JEL JOB #: [id number] cc: MD Peter Hatfield MD documented in [...] | Diagnosis | + + | Lumbar facet arthropathy - Primary Lumbosacral spondylosis without myelopathy | + + | Lumbalgia Lumbago | + + | Tobacco dependence Tobacco use disorder | + + documented in this encounter
--- OUTSIDE RECORDS SUMMARY | ~2019-08-31 | XMS | Encounter Summary ---
Demographics + + + | Address | [address] | | | [place] [address] | + + + | Home Phone [...] #[address] | | | | | [address] | | + + + + + | Tanika Jean | ECON | Unknown | | + + + + + Care Team Providers + +------+ + | Care Simulation Software Engineer Name | Role | Phone | [...] Frazier MD | | | | | [place], | | | | | | [place] [address] | | | | | | [phone] | | | +--------+--------+ + + + [...] | | | | | [facility]el [place] [facility] | | | | | | [id number] | | | | | | | | +--------+ + + + + documented as of this encounter Visit Diagnoses + + | Diagnosis | + + | COPD (chronic obstructive pulmonary disease) (HCC) - Primary Chronic airway | | obstruction, not elsewhere classified | + + documented in this encounter"
--- OUTSIDE RECORDS SUMMARY | ~2019-08-31 | XMS | Encounter Summary ---
Demographics + + + | Address | [address] | | | [place] [address] | + + + | Home Phone | | + + + | Preferred Language | Unknown | + + + | Marital Status | Single | + + + | Quaker Affiliation | Unknown | + + + | Race | Unknown | + + + | Ethnic Group | Other Race | + + + Author + + + | Author | [facility] | + + + | Organization | [facility] | + + + | Address | Unknown | + + + | Phone | Unavailable | + + + Care Team Providers + +------+ + | Care Unishear Operator Name | Role | Phone | [...] | | | | | ataxia | [place], [place] | Ave | | | | | | [address] | Mailcode: | | | | | | Phone: | [address] | | | | | | [phone] | for Health | | | | | | Fax: | and Healing, | | | | | | [phone] | [address], | | | | | | | 8th Floor | | | | | | | [place], [place] | | | | | | | [address] | | | | | | | Phone: | | | | | | | [phone] | | | | | | | Fax: | | | | | | | [phone] | +--------+--------+ + + + + Encounter Details +--------+---------+ + + + | Date | Type | Department | Care Team | Description | +--------+---------+ + + + | 07/18/ | Office | Neurology Movement | Moisés Rudd, | 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 CC: Ataxia HPI: Nazario Aguilar . is a 62 y.o. male on whom [...] not had a diagnosis. He lives in [place]. No one else in the family. 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 Physical Examination: Vital Signs: BP 101/73 [...] tests. Will recommend complete ataxia panel from [facility] or equivalent. This will look for the [...] the capability to see return patients at [facility]. For now, we have scheduled him [...] as outlined above 2) Follow up in [place] in 1 year - could be seen [...]
--- OUTSIDE RECORDS SUMMARY | ~2019-08-31 | XMS | Encounter Summary ---
Demographics + + + | Address | [address] | | | [place] [address] | + + + | Home Phone [...] #[place] | | | | | [address] | | + + + + + | Tanika Jean | ECON | Unknown | | + + + + + Care Team Providers + +------+ + | Care Cable Placer Name | Role | Phone | + [...] | | | | | | [place] [address] | | | | | | [phone] | | | +--------+--------+ + + + [...] [place] | | | | | | [address] | | | | | | | [...]
--- OUTSIDE RECORDS SUMMARY | ~2019-08-31 | XMS | Encounter Summary ---
Demographics + + + | Address | [address] | | | [place] [address] | + + + | Home Phone [...] #[place] | | | | | [address] | | + + + + + | Tanika Jean | ECON | Unknown | | + + + + + Care Team Providers + +------+ + | Care Senior Group Manager Name | Role | Phone | [...] | | | | | | [place] [address] | | | | | | [phone] | | | +--------+--------+ + + + [...] | | | | | [place] | | | | | | [address] | | | | | | | [...]
--- OUTSIDE RECORDS SUMMARY | ~2019-08-31 | XMS | Encounter Summary ---
Demographics + + + | Address | [address] | | | [place] [address] | + + + | Home Phone [...] #[place] | | | | | [address] | | + + + + + | Tanika Jean | ECON | Unknown | | + + + + + Care Team Providers + +------+ + | Care Bingo Worker Name | Role | Phone | [...] | | | | | [address] [facility] | [place] [address] | | | | | [place] [address] | | | | | | [phone] | | | +--------+ + + + [...] [place] | | | | | | [address] | | | | | | | [...] for comparison only - no result from [place]. | [facility] | + + + + +---------+ + + | Performing | Address | City/State/Zipcode | Phone Number | | Organization | | | | + +---------+ + + | [facility] | | | | + +---------+ + + documented in this encounter Visit Diagnoses Not on filedocumented in this encounter"
--- OUTSIDE RECORDS SUMMARY | ~2019-08-31 | XMS | Encounter Summary ---
Demographics + + + | Address | [address] | | | [place] [address] | + + + | Home Phone [...] #[place] | | | | | [address] | | + + + + + | Tanika Jean | ECON | Unknown | | + + + + + Care Team Providers + +------+ + | Care Principal Process Engineer Name | Role | Phone | [...] | | | [address] [facility] | [place] [address] | | | | | [place] [address] | | | | | | [phone] | | | +--------+ + + + [...] [place] | | | | | | [address] | | | | | | | [...] for comparison only - no result from [place]. | [facility] | + + + + +---------+ + + | Performing | Address | City/State/Zipcode | Phone Number | | Organization | | | | + +---------+ + + | [facility] | | | | + +---------+ + + documented in this encounter Visit Diagnoses Not on filedocumented in this encounter"
--- OUTSIDE RECORDS SUMMARY | ~2019-08-31 | XMS | Encounter Summary ---
Demographics + + + | Address | [address] | | | [place] [address] | + + + | Home Phone [...] #[place] | | | | | [address] | | + + + + + | Tanika Jean | ECON | Unknown | | + + + + + Care Team Providers + +------+ + | Care Shaker Plate Operator Name | Role | Phone | + +------+ + | Jose Angel Reina MD | PCP | | + +------+ + Encounter Details +--------+ + + + + | Date | Type | Department | Care Team | Description | +--------+ + + + + | 12/22/ | Documentati | [facility] | Roderick Williamson MD [address] | | | 2012 | on | [address] | | | | | [address] [facility], | [address], | | | | | [address] [place] | [place] [address] | | | | | [place] [address] | [phone] | | | | | [phone] | | | +--------+ + + + [...] order for MRI to Diagnostic Imaging at [facility] ATTN: Stephanie. d ocumented in this encounter Plan of Treatment +--------+ + + + + | Date | Type | Specialty | Care Team | Description | +--------+ + + + + | 11/16/ | Appointment | Radiology | Alfonso Wallace MD | | | 2019 | | | [address] | | | | | | [place] | | | | | | [address] | | | | | | | | +--------+ + + + + documented as of this encounter Visit Diagnoses Not on filedocumented in this encounter"
--- OUTSIDE RECORDS SUMMARY | ~2019-08-31 | XMS | Encounter Summary ---
Demographics + + + | Address | [address] | | | [place] [address] | + + + | Home Phone [...] #[address] | | | | | [address] | | + + + + + | Tanika Jean | ECON | Unknown | | + + + + + Care Team Providers + +------+ + | Care Internal Medicine Veterinary Technician Name | Role | Phone | + +------+ + | Jose Angel Reina MD | PCP | | + +------+ + Encounter Details +--------+ + + + + | Date | Type | Department | Care Team | Description | +--------+ + + + + | 12/22/ | Documentati | [facility] | Roderick Williamson MD [address] | | | 2012 | on | [address] | [address] | | | | | [address] [facility], | [address], | | | | | [address] [place] | [place] [address] | | | | | [place] [address] | [phone] | | | | | [phone] | | | +--------+ + + + [...] order for MRI to Diagnostic Imaging at [facility] ATTN: Stephanie. d ocumented in this encounter [...] [place] | | | | | | [address] | | | | | | | | +--------+ + + + + documented as of this encounter Visit Diagnoses Not on filedocumented in this encounter"
--- OUTSIDE RECORDS SUMMARY | ~2019-08-31 | XMS | Encounter Summary ---
Demographics + + + | Address | [address] | | | [place] [address] | + + + | Home Phone | | + + + | Preferred Language | Unknown | + + + | Marital Status | | + + + | Christian Affiliation | 1061 | + + + | Race | Unknown | + + + | Ethnic Group | Unknown | + + + Author + + + | Author | [facility] | | | and [place] | + + + | Organization | [facility] [...] #[place] | | | | | [address] | | + + + + + | Tanika Jean | ECON | Unknown | | + + + + + Care Team Providers + +------+ + | Care Spray Dry Operator Name | Role | Phone | [...] | | | | | [address] [facility] | [place] [address] | | | | | [place] [address] | | | | | | [phone] | | | +--------+ + + + [...] | | | | [facility] [facility] | | | | | | [address] | | | | | | | [...] for comparison only - no result from [facility]. | [facility] | + + + + +---------+ + + | Performing | Address | City/State/Zipcode | Phone Number | | Organization | | | | + +---------+ + + | [facility] | | | | + +---------+ + + documented in this encounter Visit Diagnoses Not on filedocumented in this encounter"
--- OUTSIDE RECORDS SUMMARY | ~2019-08-31 | XMS | Encounter Summary ---
Demographics + + + | Address | [address] | | | [place] [address] | + + + | Home Phone [...] #[address] | | | | | [address] | | + + + + + | Tanika Jean | ECON | Unknown | | + + + + + Care Team Providers + +------+ + | Care .Net Programmer Name | Role | Phone | + [...] Frazier MD | | | | | [place], | | | | | | [place] [address] | | | | | | [phone] | | | +--------+--------+ + + + [...] [place] | | | | | | [address] | | | | | | | | +--------+ + + + + documented as of this encounter Visit Diagnoses Not on filedocumented in this encounter"
--- OUTSIDE RECORDS SUMMARY | ~2019-08-31 | XMS | Encounter Summary ---
Demographics + + + | Address | [address] | | | [place] [address] | + + + | Home Phone [...] #[place] | | | | | [address] | | + + + + + | Tanika Jean | ECON | Unknown | | + + + + + Care Team Providers + +------+ + | Care Transportation Escort Name | Role | Phone | [...] | | | | | | [place] [address] | | | | | | [phone] | | | +--------+--------+ + + + [...] [place] | | | | | | [address] | | | | | | | [...]
--- OUTSIDE RECORDS SUMMARY | ~2019-08-31 | XMS | Encounter Summary ---
Demographics + + + | Address | [address] | | | [place] [address] | + + + | Home Phone [...] | Author | [facility] | | | and [place] | + + + | Organization | [facility] | | [...] #[id number] | | | | | [address] | | + + + + + | Tanika Jean | ECON | Unknown | | + + + + + Care Team Providers + +------+ + | Care Entry Level Mechanical Engineer Name | Role | Phone | + +------+ + PCP | Unavailable | + +------+ + Encounter Details +--------+ + + + + | Date | Type | Department | Care Team | Description | +--------+ + + + + | 01/19/ | Hospital | [facility] | | | | 2000 | Encounter | MED CTR GENERIC OP | | | | | | CONV DEPT [address] | | | | | | [place], | | | | | | [place] [address] | | | | | | [phone] | | | +--------+ + + + [...] [place] | | | | | | [address] | | | | | | | | +--------+ + + + + documented as of this encounter Visit Diagnoses Not on filedocumented in this encounter"
--- OUTSIDE RECORDS SUMMARY | ~2019-08-31 | XMS | Encounter Summary ---
Demographics + + + | Address | [address] | | | [place] [address] | + + + | Home Phone [...] #[place] | | | | | [address] | | + + + + + | Tanika Jean | ECON | Unknown | | + + + + + Care Team Providers + +------+ + | Care Cytogenetics Technologist Name | Role | Phone | [...] | | | | | [facility] [facility] | [place] [address] | | | | | [place] [address] | | | | | | [phone] | | | +--------+ + + + [...] [place] | | | | | | [address] | | | | | | | [...]
--- OUTSIDE RECORDS SUMMARY | ~2019-08-31 | XMS | Encounter Summary ---
Demographics + + + | Address | [address] | | | [place] [address] | + + + | Home Phone [...] #[address] | | | | | [address] | | + + + + + | Tanika Jean | ECON | Unknown | | + + + + + Care Team Providers + +------+ + | Care Relaster Name | Role | Phone | + [...] + + | 12/20/ | Office | [facility] | Karlos Craig, | Right shoulder pain | | 2013 | Visit | PH[address]SIATRY [address] | [address] | (Primary Dx); | | | | [address] | [place] | Rotator cuff | | | | [place] | [address] | tendonitis, right; | | | | [address] | | Lumbalgia; Facet | | | | [phone] | | arthropathy, lumbar; | | | [...] office note has been dictated. Job ID# [id number] signed by Karlos Craig MD at 12/20/2013 12:24 PM Arleen Ashby RN - 12/20/2013 11:35 AM PDTPatient states intermittent pain to right shoulder, no pain a t this time. Patient states improvement to right shoulder since having injection. Electronic ally signed by Arleen Kern RN at 12/20/2013 12:24 PM Karlos Garcia MD - 4 12:00 AM PDT [facility]INE [facility] REHAB [address] [place] [address] FAX: [phone] OFFICE VISIT PHYSICAL MEDICINE REHABILITATION PROGRESS NOTE [...] Greater than 25 yumiko ellen was spent [id number] today with Mr. Aguilar, over half of which was spent formulating and discussing his medical treatment plan. Karlos Craig Jr, MD PURVI / RENEE JOB #: [id number] cc: Peter Reina MD documented in this [...] [place] | | | | | | [address] | | | | | | | [...]
--- OUTSIDE RECORDS SUMMARY | ~2019-08-31 | XMS | Encounter Summary ---
Demographics + + + | Address | [address] | | | [place] [address] | + + + | Home Phone [...] | Author | [facility] | | | and [place] | + + + | Organization | [facility] | | | and [place] | + + + | Address | Unknown | + + + | Phone | Unavailable | + + + Support + + + + + | Name | Relationship | Address | Phone | + + + + + | Palak Aguilar | ECON | #[place] | | | | | [address] | | + + + + + | Tanika Jean | ECON | Unknown | | + + + + + Care Team Providers + +------+ + | Care Supervisor Machine Setter Name | Role | Phone | [...] | | | | | tendonitis, | [address] | | | | | | right Right | [place], | | | | | | shoulder | [place] [address] | | | | | | pain | Phone: | | | | | | | [phone] | | | | | | | Fax: | | | | | | | [phone] | | +--------+ + + + + [...] | shoulder | [address] | | | | n | pain | [address] | [place], | | | | | Rotator cuff | [place], | [place] [address] | | | | | tendonitis, | [place] [address] | Phone: | | | | | right | Phone: | [phone] | | | | | | [phone] | Fax: | | | | | | Fax: | [phone] | | | | | | [phone] | | +--------+ + + + + + Encounter Details +--------+ + + + + | Date | Type | Department | Care Team | Description | +--------+ + + + + | 11/09/ | Procedure | [facility] [place] | Karlos Craig, | Rotator cuff | | 2013 | visit | PHYSIATRY [address] | MD [address] | tendonitis, right | | | | [address] | [place] | (Primary Dx); Right | | | | [place] | [address] | shoulder pain | | | | [address] | | | | | | [phone] | | | +--------+ + + + [...] physical therapy within one week, please contact [facility]. Once you have completed physical therapy [...] | | | | | [place], [place] | | | | | | [address] | | | | | | | [...] | | | ) | | ONCE, [facility] 11/09/13 at 1600, For 1 | | | | | | | dose, Not for IV use., | | | | | | + + + +-------+------+ + +---+---+ | | | +---+---+ documented in this encounter
--- OUTSIDE RECORDS SUMMARY | ~2019-08-31 | XMS | Encounter Summary ---
Demographics + + + | Address | [address] | | | [place] [address] | + + + | Home Phone [...] #[place] | | | | | [address] | | + + + + + | Tanika Jean | ECON | Unknown | | + + + + + Care Team Providers + +------+ + | Care Teacher Aide Name | Role | Phone | [...] Frazier MD | | | | | [place], | | | | | | [place] [address] | | | | | | [phone] | | | +--------+--------+ + + + [...] [place] | | | | | | [id number] | | | | | | | | +--------+ + + + + documented as of this encounter Visit Diagnoses Not on filedocumented in this encounter"
--- OUTSIDE RECORDS SUMMARY | ~2019-08-31 | XMS | Encounter Summary ---
Demographics + + + | Address | [address] | | | [place] [address] | + + + | Home Phone [...] #[place] | | | | | [address] | | + + + + + | Tanika Jean | ECON | Unknown | | + + + + + Care Team Providers + +------+ + | Care Diamond Die Maker Name | Role | Phone | + +------+ + | Jose Angel Reina MD | PCP | | + +------+ + Encounter Details +--------+ + + + + | Date | Type | Department | Care Team | Description | +--------+ + + + + | 06/18/ | Orders Only | [facility] [place] | Galina Veliz, | Hypoxemia | | 2015 | | PULMONARY [address] | RN | | | | | [place], | | | | | | [place] [address] | | | | | | [phone] | | | +--------+ + + + [...] [place] | | | | | | [id number] | | | | | | | | +--------+ + + + + documented as of this encounter Visit Diagnoses + + | Diagnosis | + + | Hypoxemia | + + documented in this encounter
--- OUTSIDE RECORDS SUMMARY | ~2019-08-31 | XMS | Encounter Summary ---
Demographics + + + | Address | [address] | | | [place] [address] | + + + | Home Phone [...] #[place] | | | | | [address] | | + + + + + | Tanika Jean | ECON | Unknown | | + + + + + Care Team Providers + +------+ + | Care Window Shade Cloth Sewer Name | Role | Phone | + [...] | | | | | | [place] [address] | | | | | | [phone] | | | +--------+--------+ + + + [...] | | | | | [place] | | | | | | [address] | | | | | | | [...]
--- OUTSIDE RECORDS SUMMARY | ~2019-08-31 | XMS | Encounter Summary ---
Demographics + + + | Address | [address] | | | [place] [address] | + + + | Home Phone [...] | Author | [facility] | | | and [place] | + + + | Organization | [facility] | | | and [place] | + + + | Address | Unknown | + + + | Phone | Unavailable | + + + Support + + + + + | Name | Relationship | Address | Phone | + + + + + | Palak Aguilar | ECON | #[place] | | | | | [address] | | + + + + + | Tanika Jean | ECON | Unknown | | + + + + + Care Team Providers + +------+ + | Care Kettle Loader Name | Role | Phone | + [...] + + | 05/20/ | Office | [facility] | [place], | COPD with acute | | 2016 | Visit | PULMONARY [address] | Ling Frazier MD | exacerbation (HCC) | | | | [place], | | (Primary Dx); | | | | [place] [address] | | Nocturnal hypoxemia | | | | [phone] | | due to emphysema | | [...] PSTI would not ride a cart at [facility]. Instead, when you go shopping, start off [...] patient of Jose Angel Reina MD [facility]. At their last visit, we had continued him on Advair, Spiriva and Daliresp. Since their last visit he feels like he has been doing not so great. He was told he had bronchitis recently by the PHOTO OFFSET PRINTER down in [place]. He was given a 5 day course [...] Currently he is able to walk across [facility] at his own pace on level ground, as long as he pushes the walker or grocery cart, and he does stop to look at things. He is not exercising regularly. He has been evaluated for nocturnal oxygen and does use it. He [facility]. He reports good compliance. He has [...] Take 81 mg by mouth Daily. [DISCONTINUED] brrnfbx-evrhpqbrarron-lotzzcos (HEADACHE RELIEF) 250-250-65 MG per table t [...] made to ensure accuracy; however, inadvertent computerized wool hat finisher errors may be pre sent. documented in [...] [place] | | | | | | [id number] | | | | | | | [...]
--- OUTSIDE RECORDS SUMMARY | ~2019-08-31 | XMS | Encounter Summary ---
Demographics + + + | Address | [address] | | | [place] [address] | + + + | Home Phone | | + + + | Preferred Language | Unknown | + + + | Marital Status | | + + + | Tenriism Affiliation | 1061 | + + + | Race | Unknown | + + + | Ethnic Group | Unknown | + + + Author + + + | Author | [facility] | | | and [place] | + + + | Organization | [facility] | | | and [place] | + + + | Address | Unknown | + + + | Phone | Unavailable | + + + Support + + + + + | Name | Relationship | Address | Phone | + + + + + | Palak Aguilar | ECON | #[address] | | | | | [address] | | + + + + + | Tanika Jean | ECON | Unknown | | + + + + + Care Team Providers + +------+ + | Care Head Animal Keeper Name | Role | Phone | + [...] | | | | | [facility] | [place] [address] | | | | | [place] [address] | | | | | | [phone] | | | +--------+ + + + [...] [place] | | | | | | [address] | | | | | | | [...] for comparison only - no result from [place]. | [facility] | + + + + +---------+ + + | Performing | Address | City/State/Zipcode | Phone Number | | Organization | | | | + +---------+ + + | [facility] | | | | + +---------+ + + documented in this encounter Visit Diagnoses Not on filedocumented in this encounter"
--- OUTSIDE RECORDS SUMMARY | ~2019-08-31 | XMS | Encounter Summary ---
Demographics + + + | Address | [address] | | | [place] [address] | + + + | Home Phone [...] #[place] | | | | | [address] | | + + + + + | Tanika Jean | ECON | Unknown | | + + + + + Care Team Providers + +------+ + | Care Nursing Program Chair Name | Role | Phone | + [...] Frazier MD | | | | | [place], | | | | | | [place] [address] | | | | | | [phone] | | | +--------+--------+ + + + [...]
--- OUTSIDE RECORDS SUMMARY | ~2019-08-31 | XMS | Encounter Summary ---
Demographics + + + | Address | [address] | | | [place] [address] | + + + | Home Phone [...] #[place] | | | | | [address] | | + + + + + | Tanika Jean | ECON | Unknown | | + + + + + Care Team Providers + +------+ + | Care Field Radio Technician Name | Role | Phone | [...] + + | 08/13/ | Telephone | [facility] | Aidee Mitchell RN | Other (update | | 2020 | | PULMONOLOGY [address] | | regarding | | | | [address] | | cancellation of | | | | [place] | | procedure) | | | | [address] | | | | | | [phone] | | | +--------+ + + + [...] | | | | | [place] | | | | | | [address] | | | | | | | [...]
--- OUTSIDE RECORDS SUMMARY | ~2019-08-31 | XMS | Encounter Summary ---
Demographics + + + | Address | [address] | | | [place] [address] | + + + | Home Phone [...] #[address] | | | | | [address] | | + + + + + | Tanika Jean | ECON | Unknown | | + + + + + Care Team Providers + +------+ + | Care Public Health Sanitarian Name | Role | Phone | + [...] | weakness | Ling B, | [address] | | | | n | | [address] | [place], | | | | | | [address] | [place] [address] | | | | | | [place], | Phone: | | | | | | [place] [address] | [phone] | | | | | | | Fax: | | | | | | | [phone] | +--------+ + + + + + Reason for Visit + + + | Reason | Comments | + + + | Follow-up | | + + + Encounter Details +--------+---------+ + + + | Date | Type | Department | Care Team | Description | +--------+---------+ + + + | 11/21/ | Office | [facility] | [place], | COPD (chronic | | 2012 | Visit | PULMONARY [address] | Ling Frazier MD | obstructive | | | | [place], | | pulmonary disease) | | | | [place] [address] | | (HCC) (Primary Dx); | | | | [phone] | | Nocturnal hypoxemia; | | | [...] | | Comments: currently smoking up to 2 ppd | + + + + +---------+ [...] Pulmonary Follow Up Note MD Sarah Johnson [place] [facility] [address] [place], [address] HPI Nazario Aguilar is a 62 y.o. male patient of Jose Angel Reina here today for follow u p of COPD. At their last visit, we had treated him with prednisone and doxycycline. We repeated his [facility] oximetry on room air, which showed that he desaturated, and we recommended he stay o n 3L at night. He had repeat spirometry done in [place] and it showed mild obstructive cadence g [...] a work up done by Dr. Reina ([facility] what was done, the patient is [...] a stress test. Getting a history was yandel beckett, I felt like he was saying that [...] were performed on October 12, 2012 at [facility] and were r eviewed and interpreted in clinic today. They show spirometry consistent with mild obstruct rbady lung disease without significant bronchodilator response. Overnight [...] made to ensure accuracy; however, inadvertent computerized analytical lead errors may be pre sent. documented in t his encounter Plan of Treatment +--------+ + + + + | Date | Type | Specialty | Care Team | Description | +--------+ + + + + | 11/16/ | Appointment | Radiology | Alfonso Wallace MD | | | 2020 | | | [address] | | | | | | [place] | | | | | | [id number] | | | | | | | [...]
--- OUTSIDE RECORDS SUMMARY | ~2019-08-31 | XMS | Encounter Summary ---
Demographics + + + | Address | [address] | | | [place] [address] | + + + | Home Phone | | + + + | Preferred Language | Unknown | + + + | Marital Status | | + + + | Anabaptist Affiliation | 1061 | + + + | Race | Unknown | + + + | Ethnic Group | Unknown | + + + Author + + + | Author | [facility] | | | and [place] | + + + | Organization | [facility] | | | and [place] | + + + | Address | Unknown | + + + | Phone | Unavailable | + + + Support + + + + + | Name | Relationship | Address | Phone | + + + + + | Palak Trejo Jeff | ECON | #[place] | | | | | [address] | | + + + + + | Tanika Jean | ECON | Unknown | | + + + + + Care Team Providers + +------+ + | Care Material Clerk Name | Role | Phone | + +------+ + PCP | Unavailable | + +------+ + Encounter Details +--------+ + + + + | Date | Type | Department | Care Team | Description | +--------+ + + + + | 01/11/ | Abstract | [address] | Madeleine Connelly | | | 2011 | | [facility] | MD [address] | | | | | PATIENT PLACEMENT [address] | [place] | | | | | [address] [place], | [place] [address] | | | | | [place] [address] | [phone] | | | | | [phone] | | | +--------+ + + + [...]
--- OUTSIDE RECORDS SUMMARY | ~2019-08-31 | XMS | Encounter Summary ---
Demographics + + + | Address | [address] | | | [place] [address] | + + + | Home Phone [...] | [facility] | | | and [place] | + + + | Organization | [facility] | | | and [place] | + + + | Address | Unknown | + + + | Phone | Unavailable | + + + Support + + + + + | Name | Relationship | Address | Phone | + + + + + | Palak Aguilar | ECON | [address] | | | | | [address] | | + + + + + | Tanika Jean | ECON | Unknown | | + + + + + Care Team Providers + +------+ + | Care Patient Manager Name | Role | Phone | [...] + + | 01/18/ | Office | [facility] | [place], | COPD (chronic | | 2011 | Visit | PULMONARY [address] | Ling Frazier MD | obstructive | | | | [place], | | pulmonary disease) | | | | [place] [address] | | ([facility]) (Primary Dx); | | | | [phone] | | Hypoxemia; Periodic | | | [...] nd it. Keep your chin up. 3. [place] 1 puff into the spacer by [...] your mouth.) 3. Keep your chin up. [place] 1 puff by pressing down on [...] store it in a dry p lace. [id number] [facility], [address] [place] [address], [place] [address]. All rights reserve d. This information is [...] be interested in doing physical therapy at [facility]. He does not cough chronically, and does [...] We will continue. Needs flu shot - [place] FLU VACCINE =>3YO PRESERVATIVE FREE IM Need [...] [place] | | | | | | [address] | | | | | | | [...] for prophylactic vaccination with combined | | jkvdbjpbcs-rpumqtg-edmbhnobf (DTP) vaccine | + + documented in this encounter
--- OUTSIDE RECORDS SUMMARY | ~2019-08-31 | XMS | Encounter Summary ---
Demographics + + + | Address | [address] | | | [place] [address] | + + + | Home Phone [...] #[place] | | | | | [address] | | + + + + + | Tanika Jean | ECON | Unknown | | + + + + + Care Team Providers + +------+ + | Care Stogy Maker Name | Role | Phone | [...] + + | 06/15/ | Office | [facility] | [place], | COPD (chronic | | 2013 | Visit | PULMONARY [address] | Ling Frazier MD | obstructive | | | | [place], | | pulmonary disease) | | | | [place] [address] | | (HCC) (Primary Dx); | | | | [phone] | | Periodic limb | | | [...] this encounter Patient Instructions Patient Instructions Ling Loew MD - 06/15/2013 2:58 PM [id number] is a free service to help you [...] is available in both En glish and Nepalese with translation and TTY services. It is [...] Up HPI Nazario Aguilar . is a 62 y.o. male patient of Jose Angel Reina here today f or follow up of COPD. At their last visit, we had continued him on Spiriva, Advair and Daliresp. Since their last visit he feels like he has been doing pretty good. He has not had any acute illnesses. He notes that his insurance is [facility], and so everything has to be returned and ordered elsewhere. He can go though [facility] or [facility]. He is currently on [...] care center. He reports good compliance. He is [...] Breath. Dx: 496 RINA: 99 months [facility] [place] 360 vial 11 aspirin 325 mg tablet [...] palpitations, syncope, and peripheral edema. Seen at [facility] one night for chest pain [...] again. I reordered the albuterol nebulizers through [facility], as he is switching home health companies. [...] Duonebs, start albuterol nebulizers. Order sent to [facility]. 2.Continue Advair, Spiriva and Daliresp. 3.Continue ropinirole. [...] made to ensure accuracy; however, inadvertent computerized punch machine hand errors may be pre sent. Electronically signed [...] [place] | | | | | | [id number] | | | | | | | [...] | 06/15/2014 | | | | | ([facility]) Nocturnal | | | | | | hypoxemia | | + + +--------+ + + documented as of this encounter Visit Diagnoses + + | Diagnosis | + + | COPD (chronic obstructive pulmonary disease) ([facility]) - Primary Chronic airway | | obstruction, not elsewhere classified | + + | Periodic limb movement disorder | + + | Nocturnal hypoxemia Hypoxemia | + + | Tobacco abuse Tobacco use disorder | + + documented in this encounter
--- OUTSIDE RECORDS SUMMARY | ~2019-08-31 | XMS | Encounter Summary ---
Demographics + + + | Address | [address] | | | [place] [address] | + + + | Home Phone [...] #[place] | | | | | [address] | | + + + + + | Tanika Jean | ECON | Unknown | | + + + + + Care Team Providers + +------+ + | Care Marketing Strategy Analyst Name | Role | Phone | + +------+ + PCP | Unavailable | + +------+ + Encounter Details +--------+ + + + + | Date | Type | Department | Care Team | Description | +--------+ + + + + | 07/19/ | Hospital | [facility] | [place], | | | 2011 | Encounter | [facility] | Ling Frazier MD | | | | | [address] | | | | | | [place] | | | | | | [address] | | | | | | [phone] | | | +--------+ + + + [...] [place] | | | | | | [id number] | | | | | | | [...] performed on the Josr | ng/mL | [facility] | | | | [place] [facility] | | MEDICAL | | | [...] [address] | [place] | [phone] | | [facility] | | [address] | | | - LABORATORY | | | | + + + + + | [facility] | [address] | [place] | | | [facility] | | [address], [facility] | | | - [...] + | [facility] | [address] | [place] | [phone] | | [facility] | | Replaced by [facility] | | | - LABORATORY | | | | + + + + + | [facility] | [address] | [place] | | | [facility] | | [address] [place] [address] | | | - LABORATORY | | | | + + + + + documented in this encounter Visit Diagnoses Not on filedocumented in this encounter"
--- OUTSIDE RECORDS SUMMARY | ~2019-08-31 | XMS | Encounter Summary ---
Demographics + + + | Address | [address] | | | [place] [address] | + + + | Home Phone [...] #[place] | | | | | [address] | | + + + + + | Tanika Jean | ECON | Unknown | | + + + + + Care Team Providers + +------+ + | Care Wound Treatment Rn Name | Role | Phone | [...] + + | 06/16/ | Office | [facility] | [place], | Chronic obstructive | | 2015 | Visit | PULMONARY [address] | Ling Frazier MD | pulmonary disease, | | | | [place], | | unspecified COPD | | | | [place] [address] | | type ([facility]) (Primary | | | | [phone] | | Dx); Hypoxemia; | | | [...] the original. Pulmonary [facility] is [facility] 64 y.o. male patient of Jose Angel Reina MD here tod for follow up of COPD. At their last visit, we had added a prolonged steroid course to his amoxicillin in addition to the short course of prednisone he had already taken. He continued to get worse, and he e nded up in the hospital at [facility] for his exacerbation. While in the hospital, [...] He is currently on 3 LPM at [facility]. He reports good compliance. He was discharged [...] made to ensure accuracy; however, inadvertent computerized clip wrapper errors may be pre sent. documented in [...] [place] | | | | | | [address] | | | | | | | [...]
--- OUTSIDE RECORDS SUMMARY | ~2019-08-31 | XMS | Encounter Summary ---
Demographics + + + | Address | [address] | | | [place] [address] | + + + | Home Phone | | + + + | Preferred Language | Unknown | + + + | Marital Status | Single | + + + | Yazidism Affiliation | Unknown | + + + [...] Team Providers + +------+ + | Care Kitchen Porter Name | Role | Phone | + +------+ + PCP | Unavailable | + +------+ + Encounter Details +--------+ + + + + | Date | Type | Department | Care Team | Description | +--------+ + + + + | 05/02/ | Abstract | Neurology Movement | Clinic, Neurology | | | 2013 | | Disorders Clinic at | | | | | | [facility] | | | | | | and Healing [address] | | | | | | [address] Mailcode: | | | | | | [facility] | | | | | | Health and Healing, | | | | | | Building | | | | | | Floor [place], [place] | | | | | | [address] | | | | | | [phone] | | | +--------+ + + + [...]
--- OUTSIDE RECORDS SUMMARY | ~2019-08-31 | XMS | Encounter Summary ---
Demographics + + + | Address | [address] | | | [place] [address] | + + + | Home Phone [...] + | Author | [facility] | | | and [place] | + + + | Organization | [facility] | | | and [place] | + + + | Address | Unknown | + + + | Phone | Unavailable | + + + Support + + + + + | Name | Relationship | Address | Phone | + + + + + | Palak Aguilar | ECON | [address] | | | | | [address] | | + + + + + | Tanika Jean | ECON | Unknown | | + + + + + Care Team Providers + +------+ + | Care Construction Tech Name | Role | Phone | [...] + + | 06/21/ | Telephone | [facility] [place] | [place], | Other (Nebulized | | 2013 | | PULMONARY [address] | Ling Frazier MD | Solution ) | | | | [place], | | | | | | [place] [address] | | | | | | [phone] | | | +--------+ + + + [...] [place] | | | | | | [address] | | | | | | | | +--------+ + + + + documented as of this encounter Visit Diagnoses + + | Diagnosis | + + | COPD (chronic obstructive pulmonary disease) (HCC) - Primary Chronic airway | | obstruction, not elsewhere classified | + + documented in this encounter"
--- OUTSIDE RECORDS SUMMARY | ~2019-08-31 | XMS | Encounter Summary ---
Demographics + + + | Address | [address] | | | [place] [address] | + + + | Home Phone [...] | Author | [facility] | | | and [place] | + + + | Organization | [facility] | | | and [place] | + + + | Address | Unknown | + + + | Phone | Unavailable | + + + Support + + + + + | Name | Relationship | Address | Phone | + + + + + | Palak Gipsonock | ECON | [id number] | | | | | [address] | | + + + + + | Tanika Jean | ECON | Unknown | | + + + + + Care Team Providers + +------+ + | Care Filter Cleaner Name | Role | Phone | + [...] | | | | | | [place] [address] | | | | | | [phone] | | | +--------+--------+ + + + [...] [place] | | | | | | [address] | | | | | | | [...]
--- OUTSIDE RECORDS SUMMARY | ~2019-08-31 | XMS | Encounter Summary ---
Demographics + + + | Address | [address] | | | [place] [address] | + + + | Home Phone [...] #[place] | | | | | [address] | | + + + + + | Tanika Jean | ECON | Unknown | | + + + + + Care Team Providers + +------+ + | Care Bell Captain Name | Role | Phone | + [...] + + | 07/14/ | Office | [facility] | Offenstein, | Chronic obstructive | | 2016 | Visit | PULMONARY [address] | Ling Frazier MD | pulmonary disease, | | | | [place], | | unspecified COPD | | | | [place] [address] | | type ([facility]); | | | | [phone] | | Nocturnal hypoxemia | | | [...] patient of [facility]. At their [...] He is currently on 3 L[facility]. He reports good compliance. He did [...] made to ensure accuracy; however, inadvertent computerized bridge builder errors may be pre sent. documented in this encounter Plan of Treatment +--------+ + + + + | Date | Type | Specialty | Care Team | Description | +--------+ + + + + | 11/16/ | Appointment | Radiology | Alfonso Wallace MD | | | 2019 | | | [address] | | | | | | [place] | | | | | | [id number] | | | | | | | [...]
--- OUTSIDE RECORDS SUMMARY | ~2019-08-31 | XMS | Encounter Summary ---
Demographics + + + | Address | [address] | | | [place] [address] | + + + | Home Phone [...] #[place] | | | | | [address] | | + + + + + | Tanika Jean | ECON | Unknown | | + + + + + Care Team Providers + +------+ + | Care Passport Support Manager Name | Role | Phone | + +------+ + PCP | Unavailable | + +------+ + Encounter Details +--------+ + + + + | Date | Type | Department | Care Team | Description | +--------+ + + + + | 05/04/ | Hospital | [facility] | [place]enstein, | | | 2011 | Encounter | MED CTR SLEEP | Ling Frazier MD | | | | | CENTER [address] | | | | | | [place] | | | | | | [address] | | | | | | [phone] | | | +--------+ + + + [...] [place] | | | | | | [id number] | | | | | | | | +--------+ + + + + documented as of this encounter Visit Diagnoses Not on filedocumented in this encounter"
--- OUTSIDE RECORDS SUMMARY | ~2019-08-31 | XMS | Encounter Summary ---
Demographics + + + | Address | [address] | | | [place] [address] | + + + | Home Phone [...] #[address] | | | | | [address] | | + + + + + | Tanika Jean | ECON | Unknown | | + + + + + Care Team Providers + +------+ + | Care Cloud Subject Matter Expert Name | Role | Phone | + [...] Frazier MD | | | | | [place], | | | | | | [place] [address] | | | | | | [phone] | | | +--------+--------+ + + + [...]
--- OUTSIDE RECORDS SUMMARY | ~2019-08-31 | XMS | Encounter Summary ---
Demographics + + + | Address | [address] | | | [place] [address] | + + + | Home Phone [...] | [facility] | | | and [place] | + + + | Organization | [facility] | | | and [place] | + + + | Address | Unknown | + + + | Phone | Unavailable | + + + Support + + + + + | Name | Relationship | Address | Phone | + + + + + | Palak Aguilar | ECON | #[address] | | | | | [address] | | + + + + + | Tanika Jean | ECON | Unknown | | + + + + + Care Team Providers + +------+ + | Care Medical Detail Representative Name | Role | Phone | [...] | | | | | [facility] | [place] [address] | | | | | [place] [address] | | | | | | [phone] | | | +--------+ + + + [...] | | | | | [place] [facility] | | | | | | [address] | | | | | | | [...] for comparison only - no result from [place]. | [facility] | + + + + +---------+ + + | Performing | Address | City/State/Zipcode | Phone Number | | Organization | | | | + +---------+ + + | [facility] | | | | + +---------+ + + documented in this encounter Visit Diagnoses Not on filedocumented in this encounter"
--- OUTSIDE RECORDS SUMMARY | ~2019-08-31 | XMS | Encounter Summary ---
Demographics + + + | Address | [address] | | | [place] [address] | + + + | Home Phone [...] #[place] | | | | | [address] | | + + + + + | Tanika Jean | ECON | Unknown | | + + + + + Care Team Providers + +------+ + | Care Telephone Operator Name | Role | Phone | [...] | shoulder | [address] | | | | n | pain | [address] | [place], | | | | | Rotator cuff | [place], | [place] [address] | | | | | tendonitis, | [place] [address] | Phone: | | | | | right | Phone: | [phone] | | | | | | [phone] | Fax: | | | | | | Fax: | [phone] | | | | | | [phone] | | +--------+ + + + + [...] + + | 10/11/ | Office | [facility] | Karlos Craig, | Right shoulder pain | | 2013 | Visit | PHYSIATRY [address] | [address] | (Primary Dx); | | | | [address] | [place] | Rotator cuff | | | | [place] | [address] | tendonitis, right; | | | | [address] | | Lumbalgia; Lumbar | | | | [phone] | | facet arthropathy; | | | [...] of the notes from your neurologist at [facility]. We will review them wit h you at your next visit. Continue working toward stopping smoking.Electronically signed by Karlos Craig MD at 12/2013 11:33 AM PDT documented in this encounter Progress Notes Karlos Craig MD - 10/11/2013 11:34 AM PDTThis office note has been dictated. Job ID# [id number] signed by Karlos Craig MD at 10/11/2013 12:06 PM Alesha Sheth RN - 10/11/2013 11:10 AM PDTBack and right shoulder pain is doing better. Evaluated at [facility] for ataxia but at the moment they requested expensive testing that the pt couldn't afford, p atient will be following up with them in 1 year. Not doing PT at this moment, but doing fitz ening and home exercises Karlos Craig MD - 10/11/2013 12:00 AM PDT [facility] REHAB [address] [place] [address] FAX: [phone] OFFICE VISIT CONSULT REQUESTED BY: Jose Angel [...] He indicates that he was seen at [facility] Neurology Department for his ataxia. He indicates yair t they recommended laboratory testing that was expensive. He indicates that it was not orde red at that time because of concerns over cost. Mr. Aguilar indicates that he has had a [facility] nge in insurance. He is wondering whether or not the laboratory tests would be covered at t his time. He is interested in having them ordered if possible. Record of which laboratory t ests were recommended is not available at this time. Neurology notes from [facility] have not yet been received. They [...] does not feel like he has the ky ans or ability to do so. He was encouraged to contact the 1-480-HS-BUTTS smoking cessation program. ALLERGIES 1. LEVAQUIN. 2. [...] In regard to his ataxia, notes from [facility] have been requeste d for review [...] tear. Greater than 30 minutes was spent fgrq-cd-ymhn today with Mr. Aguilar, over half of which w as spent formulating and discussing his medical treatment plan. Thank you for allowing me to be involved in the care of your patient. If you have any quest ions regarding the care of Mr. Aguilar, please do not hesitate to call. Karlos Craig Jr, MD SUSSEX / JOB #: [id number] cc: Peter Reina MD documented in this [...] [place] | | | | | | [address] | | | | | | | [...]
--- OUTSIDE RECORDS SUMMARY | ~2019-08-31 | XMS | Encounter Summary ---
Demographics + + + | Address | [address] | | | [place] [address] | + + + | Home Phone [...] #[address] | | | | | [address] | | + + + + + | Tanika Jean | ECON | Unknown | | + + + + + Care Team Providers + +------+ + | Care Floor Manager Name | Role | Phone | [...] | Karlos Gatica MD | [address] | | | | | shoulder | [address] | [place], | | | | | pain | [address] | [place] | | | | | Rotator cuff | [place], | [address] | | | | | tendonitis, | [place] [address] | Phone: | | | | | right | Phone: | [phone] | | | | | Rotator cuff | [phone] | Fax: | | | | | tear | Fax: | [phone] | | | | | arthropathy | [phone] | | | | | | of [...] | Karlos Gatica MD | [address] | | | | | shoulder | [address] | [place], | | | | | pain | [address] | [place] | | | | | Rotator cuff | [place], | [address] | | | | | tendonitis, | [place] [address] | Phone: | | | | | right | Phone: | [phone] | | | | | Rotator cuff | [phone] | Fax: | | | | | tear | Fax: | [phone] | | | | | arthropathy | [phone] | | | | | | of [...] + + | 04/20/ | Hospital | [facility] | Karlos Craig MD | Right shoulder pain; | | 2014 | Encounter | MED CTR MRI [address] | [address] | Rotator cuff | | | | [address], | [address] [place], | tendonitis, right; | | | | [place] [address] | [place] [address] | Rotator cuff tear | | | | [phone] | [phone] | arthropathy of right | | | | | | shoulder | | | | | Karlos Craig MD | | | | | | [address] | | | | | | [place], [place] | | | | | | [address] | | | | | | | [...] | | | | (HCC) | months | | | | [...] [place] | | | | | | [address] | | | | | | | [...] + | MISCELLANEOUS LAB | | | [phone] | + +---------+ + + | MISCELANIOUS LAB | | | [phone] | + +---------+ + + documented in [...]
--- OUTSIDE RECORDS SUMMARY | ~2019-08-31 | XMS | Encounter Summary ---
Demographics + + + | Address | [address] | | | [place] [address] | + + + | Home Phone [...] + | Author | [facility] | | | and [place] | + + + | Organization | [facility] | | | and [place] | + + + | Address | Unknown | + + + | Phone | Unavailable | + + + Support + + + + + | Name | Relationship | Address | Phone | + + + + + | Palak Aguilar | ECON | #[address] | | | | | [address] | | + + + + + | Tanika Jean | ECON | Unknown | | + + + + + Care Team Providers + +------+ + | Care Director Of Manufacturing Operations Name | Role | Phone | [...] | | | | | [facility] [facility] | [place] [address] | | | | | [place] [address] | | | | | | [phone] | | | +--------+ + + + [...] | | | | | [facility] [place] [facility] | | | | | | [address] | | | | | | | [...] for comparison only - no result from [place]. | [facility] | + + + + +---------+ + + | Performing | Address | City/State/Zipcode | Phone Number | | Organization | | | | + +---------+ + + | [facility] | | | | + +---------+ + + documented in this encounter Visit Diagnoses Not on filedocumented in this encounter"
--- OUTSIDE RECORDS SUMMARY | ~2019-08-31 | XMS | Encounter Summary ---
Demographics + + + | Address | [address] | | | [place] [address] | + + + | Home Phone [...] #[place] | | | | | [address] | | + + + + + | Tanika Jean | ECON | Unknown | | + + + + + Care Team Providers + +------+ + | Care Assembler Fluorescent Lights Name | Role | Phone | + [...] | [place], | Medication Refill | | 2016 | | PULMONARY [address] | Ling Frazier MD | | | | | [place], | | | | | | [place] [address] | | | | | | [phone] | | | +--------+--------+ + + + [...] [place] | | | | | | [address] | | | | | | | [...]
--- OUTSIDE RECORDS SUMMARY | ~2019-08-31 | XMS | Encounter Summary ---
Demographics + + + | Address | [address] | | | [place] [address] | + + + | Home Phone [...] #[place] | | | | | [address] | | + + + + + | Tanika Jean | ECON | Unknown | | + + + + + Care Team Providers + +------+ + | Care System Manager Name | Role | Phone | [...] + + | 08/28/ | Telephone | [facility] | Aidee Mitchell RN | Results | | 2020 | | PULMONOLOGY [address] | | | | | | [address] | | | | | | [place] | | | | | | [address] | | | | | | [phone] | | | +--------+ + + + [...] [place] | | | | | | [address] | | | | | | | | +--------+ + + + + documented as of this encounter Visit Diagnoses Not on filedocumented in this encounter"
--- OUTSIDE RECORDS SUMMARY | ~2019-08-31 | XMS | Encounter Summary ---
Demographics + + + | Address | [address] | | | [place] [address] | + + + | Home Phone [...] #[address] | | | | | [address] | | + + + + + | Tanika Jean | ECON | Unknown | | + + + + + Care Team Providers + +------+ + | Care Protocol Manager Name | Role | Phone | [...] | | | | History of | [address] | [address] | | | | | seizures | [place], | [place], | | | | | | [place] [address] | [place] [address] | | | | | | Phone: | Phone: | | | | | | [phone] | [phone] | | | | | | Fax: | Fax: | | | | | | [phone] | [phone] | +--------+ + + + + + [...] Services | Therapy | Unsteady | Karlos aGtica MD | | | | Required | | gait | [address] | | | | | | Lumbalgia | [address] | | | | | | Tremor | [place], | | | | | | History of | [place] [address] | | | | | | seizures | Phone: | | | | | | | [phone] | | | | | | | Fax: | | | | | | | [phone] | | +--------+ + + + + [...] Medicine and | Leg | Chrissy, | Deion Gatica MD [address] | | | Required | Rehabilitatio | weakness | Ling Frazier, | [address] | | | | n | | [address] | [place], | | | | | | [address] | [place] [address] | | | | | | [place], | Phone: | | | | | | [place] [address] | [phone] | | | | | | | Fax: | | | | | | | [phone] | +--------+ + + + + + Encounter Details +--------+---------+ + + + | Date | Type | Department | Care Team | Description | +--------+---------+ + + + | 12/08/ | Office | [facility] | Karlos Craig, | Unsteady gait | | 2012 | Visit | MEDICINE | [address] | (Primary Dx); | | | | REHABILITATION [address] | [place] | Lumbalgia; Tremor; | | | | [address] | [phone] | History of seizures; | | | | [place], [place] | | COPD (chronic | | | | [address] | | obstructive | | | | [phone] | | pulmonary disease) | | | | | | ([facility]); Tobacco | | | | [...] 12/08/2012 3:55 PM PDTMy office will obtain copier repair technician ies of your back x-rays for review. [...] office note has been dictated. Job ID# [id number] signed by Karlos Craig MD at 12/08/2012 4:18 PM Arleen Ashby RN - 12/08/2012 3:17 PM PDTPatient complains of bilateral lower extremity weakness, stat es he has experienced it for at least 5 years, states weakness has worsened. States pain whi le walking, no pain while sitting. Electronically signed by Arleen Kern RN at 3 4:18 PM PDTKarlos Craig MD - 12/08/2012 12:00 AM PDT [facility] [address] [place] [address] FAX: [phone] OFFICE VISIT PHYSICAL MEDICINE REHABILITATION CONSULT CONSULT [...] demonstrated significant intention tremor and ataxia with kagvok-um-wtro te sting in both upper extremities. He demonstrated significant discoordination in an effort t o try euki-fv-embk slide bilaterally. His gait demonstrated short, shuffling [...] is 5/5 biceps, triceps, wrist dorsiflexion, hand criminal investigative agent strength and f sammie abduction strength. In the lower extremities, there is 5/5 hip flexion, knee flexion, knee extension, ankle dorsiflexion, ankle plantar flexion and extensor hallucis longus str ength. DATABASE: Lumbar x-rays were completed today at [facility]. These x-rays are not available [...] type of walker. He will return to t he clinic in 6 weeks' time at which [...] ondylolisthesis. Greater than an hour was spent npst-eo-pghy today with Mr. Aguilar, over half of which was spent formulating and discussing his medical treatment plan. Thank you for allowing me to be involved in the care of your patient. If you have any quest ions regarding the care of Mr. Aguilar, please do not hesitate to call. Karlos Craig Jr, MD GEM / PAP JOB #: [id number] cc: MD Peter Hatfield MD documented in [...] [place] | | | | | | [address] | | | | | | | [...]
--- OUTSIDE RECORDS SUMMARY | ~2019-08-31 | XMS | Encounter Summary ---
Demographics + + + | Address | [address] | | | [place] [address] | + + + | Home Phone [...] | Author | [facility] | | | and [place] | + + + | Organization | [facility] | | | and [place] | + + + | Address | Unknown | + + + | Phone | Unavailable | + + + Support + + + + + | Name | Relationship | Address | Phone | + + + + + | Palak Aguilar | ECON | #[id number] | | | | | [address] | | + + + + + | Tanika Jean | ECON | Unknown | | + + + + + Care Team Providers + +------+ + | Care Senior Tech Manufacturing Engineering Name | Role | Phone | + [...] + + | 07/08/ | Office | [facility] | Damaso Gavin, | Hypoxia (Primary | | 2018 | Visit | PULMONARY [address] | [address] | Dx); Centrilobular | | | | [place], | [place] [address] | emphysema (HCC); | | | | [place] [address] | [phone] | Tobacco dependence | | | | [phone] | | due to cigarettes; | | | [...] [place] | | | | | | [address] | | | | | | | [...]
--- OUTSIDE RECORDS SUMMARY | ~2019-08-31 | XMS | Encounter Summary ---
Demographics + + + | Address | [address] | | | [place] [address] | + + + | Home Phone [...] [place] | | | | | [address] | | + + + + + | Tanika Jean | ECON | Unknown | | + + + + + Care Team Providers + +------+ + | Care Camelid Fiber Sorter Name | Role | Phone | + +------+ + PCP | Unavailable | + +------+ + Encounter Details +--------+ + + + + | Date | Type | Department | Care Team | Description | +--------+ + + + + | 02/24/ | Hospital | [facility] | [place], | | | 2010 | Encounter | MED CTR GENERIC OP | Ling Frazier MD | | | | | CONV DEPT [address] | | | | | | [place], | | | | | | [place] [address] | | | | | | [phone] | | | +--------+ + + + [...] [place] | | | | | | [address] | | | | | | | | +--------+ + + + + documented as of this encounter Visit Diagnoses Not on filedocumented in this encounter"
--- OUTSIDE RECORDS SUMMARY | ~2019-08-31 | XMS | Encounter Summary ---
Demographics + + + | Address | [address] | | | [place] [address] | + + + | Home Phone [...] #[place] | | | | | [address] | | + + + + + | Tanika Jean | ECON | Unknown | | + + + + + Care Team Providers + +------+ + | Care Supervisor Shuttle Fitting Name | Role | Phone | + +------+ + PCP | Unavailable | + +------+ + Encounter Details +--------+ + + + + | Date | Type | Department | Care Team | Description | +--------+ + + + + | 02/24/ | Hospital | [facility] | [place], | | | 2010 | Encounter | MED CTR GENERIC OP | Ling Frazier MD | | | | | CONV DEPT [address] | | | | | | [place], | | | | | | [place] [address] | | | | | | [phone] | | | +--------+ + + + [...] [place] | | | | | | [address] | | | | | | | | +--------+ + + + + documented as of this encounter Visit Diagnoses Not on filedocumented in this encounter"
--- OUTSIDE RECORDS SUMMARY | ~2019-08-31 | XMS | Encounter Summary ---
Demographics + + + | Address | [address] | | | [place] [address] | + + + | Home Phone [...] | Author | [facility] | | | and [place] | + + + | Organization | [facility] | | | and [place] | + + + | Address | Unknown | + + + | Phone | Unavailable | + + + Support + + + + + | Name | Relationship | Address | Phone | + + + + + | Palak Gipsonock | ECON | [address] | | | | | [address] | | + + + + + | Tanika Jean | ECON | Unknown | | + + + + + Care Team Providers + +------+ + | Care Computer Science Teacher Name | Role | Phone | [...] | | | | | | [place] [address] | | | | | | [phone] | | | +--------+--------+ + + + [...] | | | | | [place] | | | | | | [address] | | | | | | | [...]
--- OUTSIDE RECORDS SUMMARY | ~2019-08-31 | XMS | Encounter Summary ---
Demographics + + + | Address | [address] | | | [place] [address] | + + + | Home Phone [...] #[place] | | | | | [address] | | + + + + + | Tanika Jean | ECON | Unknown | | + + + + + Care Team Providers + +------+ + | Care Weatherization Installer Name | Role | Phone | [...] | RN | | | | | [place], | | | | | | [place] [address] | | | | | | [phone] | | | +--------+ + + + [...] [place] | | | | | | [address] | | | | | | | | +--------+ + + + + documented as of this encounter Visit Diagnoses Not on filedocumented in this encounter"
--- OUTSIDE RECORDS SUMMARY | ~2019-08-31 | XMS | Encounter Summary ---
Demographics + + + | Address | [address] | | | [place] [address] | + + + | Home Phone [...] [place] | | | | | [address] | | + + + + + | Tanika Jean | ECON | Unknown | | + + + + + Care Team Providers + +------+ + | Care Jumpbasting Lining Baster Name | Role | Phone | [...] | | | | | | [place] [address] | | | | | | [phone] | | | +--------+--------+ + + + [...] [place] | | | | | | [address] | | | | | | | [...]
--- OUTSIDE RECORDS SUMMARY | ~2019-08-31 | XMS | Encounter Summary ---
Demographics + + + | Address | [address] | | | [place] [address] | + + + | Home Phone [...] [place] | | | | | [address] | | + + + + + | Tanika Jean | ECON | Unknown | | + + + + + Care Team Providers + +------+ + | Care Cleaning Technician Name | Role | Phone | [...] + + | 04/24/ | Telephone | [facility] | Karlos Craig, | Results | | 2014 | | PHYSIATRY [address] | MD [address] | | | | | [address] | [place] | | | | | [place] | [address] | | | | | [address] | | | | | | [phone] | | | +--------+ + + + [...] [place] | | | | | | [address] | | | | | | | | +--------+ + + + + documented as of this encounter Visit Diagnoses Not on filedocumented in this encounter"
--- OUTSIDE RECORDS SUMMARY | ~2019-08-31 | XMS | Encounter Summary ---
Demographics + + + | Address | [address] | | | [place] [address] | + + + | Home Phone [...] [place] | | | | | [address] | | + + + + + | Tanika Jean | ECON | Unknown | | + + + + + Care Team Providers + +------+ + | Care Elementary Special Education Teacher Name | Role | Phone | [...] + + | 08/09/ | Telephone | [facility] | Alfonso Wallace MD | Other | | 2020 | | PUL[address]OLOGY [address] | | | | | [address] | [place], [place] | | | | | [place], [place] | [address] | | | | | [address] | | | | | | [phone] | | | +--------+ + + + [...] [place] | | | | | | [address] | | | | | | | [...]
--- OUTSIDE RECORDS SUMMARY | ~2019-08-31 | XMS | Encounter Summary ---
Demographics + + + | Address | [address] | | | [place] [address] | + + + | Home Phone | | + + + | Preferred Language | Unknown | + + + | Marital Status | Single | + + + | Advent Affiliation | Unknown | + + + | Race | Unknown | + + + | Ethnic Group | Other Race | + + + Author + + + | Author | [facility] | + + + | Organization | [facility] | + + + | Address | Unknown | + + + | Phone | Unavailable | + + + Care Team Providers + +------+ + | Care Retirement Manager Name | Role | Phone | [...] | | | | | ataxia | [place], [place] | Ave | | | | | | [address] | Mailcode: | | | | | | Phone: | [address] | | | | | | [phone] | for Health | | | | | | Fax: | and Healing, | | | | | | [phone] | Building [address], | | | | | | | 8th Floor | | | | | | | [place], [place] | | | | | | | [address] | | | | | | | Phone: | | | | | | | [phone] | | | | | | | Fax: | | | | | | | [phone] | +--------+--------+ + + + + Encounter Details +--------+---------+ + + + | Date | Type | Department | Care Team | Description | +--------+---------+ + + + | 07/18/ | Office | Neurology Movement | Moisés Rudd, | 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) (Primary Dx) | | | | [facility] | [facility] | | | | | and Healing [address] | [place], [place] | | | | | Claude Greenwood Mailcode: | [address] | | | | | [address] | [phone] | | | | | Health and Healing, | | | | | | [facility] | | | | | | [place], [place] | | | | | | [address] | | | | | | [phone] | | | +--------+---------+ + + + [...] not had a diagnosis. He lives in [place]. No one else in the family. 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 Physical Examination: Vital Signs: BP 101/73 [...] tests. Will recommend complete ataxia panel from [place] or equivalent. This will look for the [...] the capability to see return patients at [facility]. For now, we have scheduled him [...] as outlined above 2) Follow up in [place] in 1 year - could be seen [...]
--- OUTSIDE RECORDS SUMMARY | ~2019-08-31 | XMS | Encounter Summary ---
Demographics + + + | Address | [address] | | | [place] [address] | + + + | Home Phone [...] #[place] | | | | | [address] | | + + + + + | Tanika Jean | ECON | Unknown | | + + + + + Care Team Providers + +------+ + | Care Sound Effects Person Name | Role | Phone | + [...] | | | | | | [place] [address] | | | | | | [phone] | | | +--------+--------+ + + + [...] [place] | | | | | | [address] | | | | | | | [...]
--- OUTSIDE RECORDS SUMMARY | ~2019-08-31 | XMS | Encounter Summary ---
Demographics + + + | Address | [address] | | | [place] [address] | + + + | Home Phone | | + + + | Preferred Language | Unknown | + + + | Marital Status | Single | + + + | Spiritism Affiliation | Unknown | + + + | Race | Unknown | + + + | Ethnic Group | Other Race | + + + Author + + + | Author | [facility] | + + + | Organization | [facility] | + + + | Address | Unknown | + + + | Phone | Unavailable | + + + Care Team Providers + +------+ + | Care Looper Operator Name | Role | Phone | [...] | | | [address] | [address] [place] | | | | | | [place] | Research | | | | | | Research | [place] | | | | | | [place] | Floor | | | | | | Floor | [place], [place] | | | | | | [place], [place] | [address] | | | | | | [address] | Phone: | | | | | | Phone: | [phone] | | | | | | [phone] | Fax: | | | | | | Fax: | [phone] | | | | | | [phone] | | +--------+--------+ + + + + Encounter Details +--------+ + + + + | Date | Type | Department | Care Team | Description | +--------+ + + + + | 02/03/ | Outside | Neurophysiology | Faisal Kebede | | | 2010 | Referral | EEG at [facility] [address] | MD ELIE Walls | | | | Order | [facility] | [facility] | | | | | [facility] | [address] [facility] | | | | | [place], 10th Floor | [place], [place] | | | | | [place], [place] | [address] | | | | | [address] | [phone] | | | | | [phone] | | | +--------+ + + + [...] 01/30/2011 Place | | | of Service: [facility] Department: EEG [facility] - [id number] | | | ROUTINE EEG this is [...]
--- OUTSIDE RECORDS SUMMARY | ~2019-08-31 | XMS | Encounter Summary ---
Demographics + + + | Address | [address] | | | [place] [address] | + + + | Home Phone [...] #[place] | | | | | [address] | | + + + + + | Tanika Jean | ECON | Unknown | | + + + + + Care Team Providers + +------+ + | Care Hammer Heater Name | Role | Phone | + [...] Visit | MEDICINE | MD [address] | stenosis (Primary | | | | [facility] | [place] | Dx); Lumbar facet | | | | [address] | [address] | arthropathy; | | | | [place] | | Lumbalgia; [place] | | | | [address] | | | | | | [phone] | | | +--------+---------+ + + + [...] medic al supply store. A consult at [facility] was been requested by Dr. Williamson, with [...] office note has been dictated. Job ID# [id number] signed by Karlos Craig MD at 02/16/2013 3:30 PM Arleen Lo RN - 02/16/2013 1:49 PM PSTPatient states he has intermittent pain to bilateral legs and lower back. Karlos Berumen MD - 02/16/2013 12:00 AM PST PHYS[facility] MEDICINE [facility] REHAB [address] [place] [address] FAX: [phone] OFFICE VISIT PHYSICAL MEDICINE REHABILITATION PROGRESS NOTE [...] a consult in the neurology department at [facility]. This i s still pending. When he [...] of the MRI. A consult request with [facility] was replaced today so that he can have an appointment with them to evaluate and treat his ataxi a potentially. He was instructed to continue home exercise program as outlined by physical therapy on a daily basis indefinitely. Approximately 30 minutes was spent orug-rn-uapi today with Mr. Aguilar over half of which w as spent formulating and discussing his medical treatment plan. Thank you for allowing me t o be involved in the care of your patient. If you have any questions regarding the care of Mr. Aguilar please do not hesitate to call. Karlos Craig Jr, MD GEM / SB JOB #: [id number] cc: Peter Reina MD documented in this encounter Plan of Treatment +--------+ + + + + | Date | Type | Specialty | Care Team | Description | +--------+ + + + + | 11/16/ | Appointment | Radiology | Alfonso Wallace MD | | | 2019 | | | [address] | | | | | | [place], [place] | | | | | | [address] | | | | | | | [...]
--- OUTSIDE RECORDS SUMMARY | ~2019-08-31 | XMS | Encounter Summary ---
Demographics + + + | Address | [address] | | | [place] [address] | + + + | Home Phone [...] #[place] | | | | | [address] | | + + + + + | Tanika Jean | ECON | Unknown | | + + + + + Care Team Providers + +------+ + | Care Plush Cutter Name | Role | Phone | [...] + + | 03/15/ | Office | [facility] | [place], | COPD (chronic | | 2013 | Visit | PULMONARY [address] | Ling Frazier MD | obstructive | | | | [place], | | pulmonary disease) | | | | [place] [address] | | ([facility]) (Primary Dx); | | | | [phone] | | 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 Call [facility] and see if they have smoking cessation classes. [facility] offers free smoking cessation classes. [...] day. He ran out of the albuterol nebu lizer, and went back to using his Duonebs until he could get this refilled. He has been usin g the nebulizer 3 times daily. He returns today for routine follow up. Currently he is able to walk 1/2 mile at his own pace on level ground, using a grocery cart . He is exercising regularly. He goes to [employer] to walk every day when his goes to [facility], and walks 1-2 laps. He does not cough very often. He has not had hemoptysis. He has been evaluated for nocturnal oxygen and does use it. He is [facility] on [facility] L[facility] at [facility]. He reports good compliance. Past Medical History Past Medical History Diagnosis Date COPD (chronic obstructive pulmonary disease) ([facility]) Diabetes mellitus ([facility]) HTN (hypertension) Seizure disorder ([facility]) Restless legs syndrome Seasonal allergies PLMD (periodic [...] Breath. Dx: 496 RINA: 99 months [employer] Paulina 360 vial 4 aspirin 81 mg EC tablet Take 81 mg by mouth Daily. oulmgzp-gfrxoerkjrqow-pdcemqkz ([facility] [employer]IEF) 250-250-65 MG per tablet Take [...] made to ensure accuracy; however, inadvertent computerized jute bag sewer errors may be pre sent. documented in t his encounter Plan of Treatment +--------+ + + + + | Date | Type | Specialty | Care Team | Description | +--------+ + + + + | 11/16/ | Appointment | Radiology | Alfonso Wallace MD | | | 2020 | | | [address] | | | | | | [place] | | | | | | [address] [...]
--- OUTSIDE RECORDS SUMMARY | ~2019-08-31 | XMS | Encounter Summary ---
Demographics + + + | Address | [address] | | | [place] [address] | + + + | Home Phone [...] #[place] | | | | | [address] | | + + + + + | Tanika Jean | ECON | Unknown | | + + + + + Care Team Providers + +------+ + | Care Race Car Driver Name | Role | Phone | [...] + + | 09/15/ | Office | [facility] | [place], | Chronic obstructive | | 2016 | Visit | PULMONARY [address] | Ling Frazier MD | pulmonary disease, | | | | [place], | | unspecified COPD | | | | [place] [address] | | type ([facility]) (Primary | | | | [phone] | | Dx); Allergic | | | | | | rhinitis, | | | | | | unspecified allergic | | | | | | rhinitis type; | | | | | | 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 No medication changes. 3:3 1 PM PDT documented in this encounter Progress Notes Ling Lowe MD - 09/16/2015 2:39 PM PDTFormatting of this note might be differe nt from the original. Pulmonary Follow Up HPI Nazario Gipsonock . is a 65 y.o. male patient [facility]. At their [...] in the yard. He usually uses an [employer] cart at [facility] when he can. He does cough some of the time, but not all of the time. He is bringing up mucous, which is clear in color. He has been evaluated for nocturnal oxygen and does use it. He is currently on 3 L[facility] at [facility]. He reports good compliance. [...] Chronic obstructive pulmonary disease, unspecified COPD type ([facility]) J44.9 496 He has been more stable [...] made to ensure accuracy; however, inadvertent computerized sheet metal operator errors may be pre sent. documented [...]
--- OUTSIDE RECORDS SUMMARY | ~2019-08-31 | XMS | Clinical Summary ---
Demographics + + + | Address | [address] | | | [place] [address] | + + + | Home Phone | | + + + | Preferred Language | Unknown | + + + | Marital Status | Single | + + + | Mandaen Affiliation | Unknown | + + + [...] Team Providers + +------+ + | Care Veneer Press Operator Name | Role | Phone | + +------+ + | Jose Angel Reina MD | PCP | | + +------+ + Source Comments NIESHA is fully live on both EpicCare Ambulatory and EpicCare InPatient.[facility] Allergies Not on File Medications [...]
--- OUTSIDE RECORDS SUMMARY | ~2019-08-31 | XMS | Clinical Summary ---
Demographics + + + | Address | [address] | | | [place] [address] | + + + | Home Phone [...] #[place] | | | | | [address] | | + + + + + | Tanika Jean | ECON | Unknown | | + + + + + Care Team Providers + +------+ + | Care Director Of Broadcast Name | Role | Phone | + [...] | | | | type ([facility]) | | | | | | | [...] automatically from request for surgery | | [id number] | + + + + + | Centrilobular emphysema | 08/10/2019 | + + + + + | Overview: Added automatically from request for surgery | | [id number] | + + + + + | [...] | | | | | aureus (MSSA) ([facility]) | | | | | | (Primary [...] [place] | | | | | | [address] | | | | | | | [...] | + +--------+ + + + | [facility] | Routin | 08/15/2019 | [...] + + | Performing | Address | City/State/[facility] | Phone Number | | Organization [...] | | | | | performed at [address], | | | | | | [address], [address], | | | | | | [place] [address] | | | | + + + + + + + + | Specimen | + + | | + + + + + + + | Performing | Address | City/State/Zipcode | Phone Number | | Organization | | | | + + + + + | [facility] | [address] | [place] [address] | [phone] | + + + + + CULTURE, [...] | | | | | performed by [facility], | | | | | | [address], | | | | | | [place] [address] | | | | + + + + + + + + | Specimen | + + | | + + + + + + + | Performing | Address | City/State/Zipcode | Phone Number | | Organization | | | | + + + + + | [facility] | [address] | [place] [address] | [phone] | + + + + + Culture, [...] [place] | | | | | | [address] | | | | + + + [...] at | | | | | | [facility], [address] | | | | | | [place] | | | | | | [address] | | | | + + + + + + + + | Specimen | + + | | + + + + + + + | Performing | Address | City/State/Zipcode | Phone Number | | Organization | | | | + + + + + | [facility] | [address] | [place] [address] | [phone] | + + + + + CHRISTOPHER [...] | | LABORATORY | | | | [facility], [address] [facility] | | | | | | [place] | | | | | | [address] | | | | + + + [...] | | | | | performed at [address], | | | | | | [address], | | | | | | [facility] [address] | | | | + + + + + + + + | Specimen | + + | | + + + + + + + | Performing | Address | City/State/Zipcode | Phone Number | | Organization | | | | + + + + + | [facility] | [address] | [place] [address] | [phone] | + + + + + Jesse [...] | | | | TC, [address] [facility] | | LABORATORY | | | | [place], [place] | | | | | | [address]Zpprrcp: Testing | | | | | | performed at [facility], [address] | | | | | | [facility], | | | | | | [place] [address] | | | | + + + + + + + + | Specimen | + + | | + + + + + + + | Performing | Address | City/State/Zipcode | Phone Number | | Organization | | | | + + + + + | [facility] | [address] | [place] [address] | [phone] | + + + + + CHRISTOPHER [...] RESULT | Testing performed at | | [facility] | | | | [facility], [address] [facility] | | LABORATORY | | | | [facility], [place], [place] | | | | | | [address]Qrryhei: Testing | | | | | | performed at [facility], [address] | | | | | | [facility], | | | | | | [place] [address] | | | | + + + + + + + + | Specimen | + + | | + + + + + + + | Performing | Address | City/State/Zipcode | Phone Number | | Organization | | | | + + + + + | [facility] | [address] | [place] [address] | [phone] | + + + + + Culture, [...] LABORATORY | | | | performed at [facility];[address] | | | | | | [address];[place], [place] | | | | | | [address] | | | | + + + + + + | Fungus | Preliminary | | [facility] | | | (Mycology) | reportComment: Testing | | LABORATORY | | | Culture | performed by [facility], | | | | | | [address], | | | | | | [place] [address] | | | | + + + + + + + + | Specimen | + + | | + + + + + + + | Performing | Address | City/State/Zipcode | Phone Number | | Organization | | | | + + + + + | [facility] | [address] | [place] [address] | [phone] | + + + + + Medical [...] with thepatient's concurrent biopsies | | | ([id number]).AMB:emb PERFORMING LABORATORY:The technical component was | | | performed by [facility], [address] [place] [address] | | | [place] [address] ([employer] Freight: Ramses Purdy D.O.; CLIA#: | | | [id number]).Professional interpretation was performed by [facility] | | | [facility], [address], | | | [place] [address] ([employer]: Yoandy Kirkland M.D.; CLIA#: | | | [id number]). Diagnostician: Yoel SLAUGHTER | | | ([facility])CytotechnologistDiagnostician: Nata Amin Backer | | | MDPathologistElectronically [...] with the | | |patient's concurrent biopsies ([id number]). | | |AMB:emb | | | | | |PERFORMING LABORATORY: | | |The technical component was performed by [facility], [address] [place] [address] ([employer]: Ramses Purdy D.O.; CLIA#: [id number]). | | |Professional interpretation was performed by [facility], [address] [address] ([employer]: Yoandy Kirkland M.D.; CLIA#: [id number]). | | | | | |Diagnostician: Yoel SLAUGHTER ([facility]) | | |Ncqa Specialist | | |Diagnostician: Nata Gallego MD | [...] use, | | | presenting hazards to [place]), J43.2 (centrilobular emphysema) FINAL | | | PATHOLOGIC DIAGNOSIS:Right upper lobe lung, biopsies:- Fragments of | | | reactive, inflamed bronchial mucosa, negative for granulomas, necrosis | | | or malignancy. See Comment. COMMENT:Please correlate these results | | | with the patient's concurrent cytology ([id number]). AMB:emb:C2NR | | | MICROSCOPIC EXAMINATION:Histologic sections [...] | | technical component was performed by [facility], [address] [place] [address] | | | [place] [address] ([employer] Fre[employer]: Nata Gallego MD; CLIA# | | | [id number]). Professional interpretation was performed [facility] | | | [address], | | | [place] [address] ([employer]: Yoandy Kirkland M.D.; CLIA#: | | | [id number]). Diagnostician: Nata Gallego | | | MDPathologistElectronically Signed 08/16/2019 | | | | | |PERFORMING LABORATORY: | | |The technical component was performed by [facility], [address] [place] [address] ([employer]: Nata Gallego MD; CLIA# [id number]). Professional interpretation was performed by | | |[facility], [address] [address] ([employer]: Yoandy Kirkland M.D.; CLIA#: [id number]). | | | | | |Diagnostician: Nata [...] | | Procedure Date: 08/15/2019 6:55 AMMRN: [id number] | | | Date of : 1950Note [...] | | | navigation bronchoscopy utilizing the [employer] [address] system | | | was performed. [...] On: | | | 08/15/2019 6:55 AM [facility] - Endoscopy | | | Department | | |This report has been signed electronically. | | |Number of Addenda: 0 | | | | | |Note Initiated On: 08/15/2019 6:55 AM | | | | | | [facility] - Endoscopy Department | | + [...] Testing | 39.0 - 50.0 % | [facility] | | | | performed at [facility];[address] | | LABORATORY | | | | [address];[place], [place] | | | | | | [address] | | | | + + + + + + + + | Specimen | + + | Blood | + + + + + + + | Performing | Address | City/State/Zipcode | Phone Number | | Organization | | | | + + + + + | [facility] | [address] [facility] | [place] [address] | [phone] | + + + + + Basic [...] | | | | | performed at [facility];[address] | | | | | | [facility];[place], [place] | | | | | | [address] | | | | + + + + + + + + | Specimen | + + | Blood | + + + + + + + | Performing | Address | City/State/Zipcode | Phone Number | | Organization | | | | + + + + + | [facility] | [address] | [place] [address] | [phone] | + + + + + POC [...] +--------+ +---------+--------+ | MEDICARE | MEDICA | [id number] | 09/03/18 | [phone] | | Medica | | | RE | | 97-Pre | 5 | | re | | | PART A | | sent | | | | | | AND B | | | | | | + +--------+ +--------+ +---------+--------+ | [employer] | MODA | [id number] | 07/08/19 | | | Medica | [...] | + +--------+ +--------+ + + | Kvein Daugherty | Person | Self | [birth year] | [address] | | Franki Sr. | al/Fam | | 1951 | [phone] | [place], [place] | | | [place] | | | [address] (Home) | [address] | + +--------+ +--------+ + + | Kevin Daugherty | Person | Self | [birth year] | [address] | | Franki Sr. | al/Fam | | 1951 | [phone] | [place], [place] | | | [place] | | | [address] (Home) | [address] | + +--------+ +--------+ + + | Kevin Daugherty | Person | Self | [birth year] | | [address] | | Franki Sr. | al/Fam | | 1951 | [phone] | [place], [place] | | | [place] | | | [address] (Home) | [address] | + +--------+ +--------+ + + Advance Directives + + + + + | Type | Date Recorded | Patient | Explanation | | | | Singe Machine Operator | | + + + + + | Power of | | | | | Psych Coordinator | | | | + + + + + | Advance | 08/11/2019 9:42 | | | | Directive | AM | | | + + + + +
--- OUTSIDE RECORDS SUMMARY | ~2019-08-31 | XMS | Encounter Summary ---
Demographics + + + | Address | [address] | | | [place] [address] | + + + | Home Phone [...] | Author | [facility] | | | and [place] | + + + | Organization | [facility] | | | and [place] | + + + | Address | Unknown | + + + | Phone | Unavailable | + + + Support + + + + + | Name | Relationship | Address | Phone | + + + + + | Palak Trejo Jeff | ECON | [address] | | | | | [address] | | + + + + + | Tanika Jean | ECON | Unknown | | + + + + + Care Team Providers + +------+ + | Care Exchange Engineer Name | Role | Phone | + +------+ + PCP | Unavailable | + +------+ + Encounter Details +--------+ + + + + | Date | Type | Department | Care Team | Description | +--------+ + + + + | 05/04/ | Hospital | [facility] | [place], | | | 2011 | Encounter | MED CTR SLEEP | Ling Frazier MD | | | | | CENTER [address] | | | | | | [place] | | | | | | [address] | | | | | | [phone] | | | +--------+ + + + [...] [place] | | | | | | [address] | | | | | | | | +--------+ + + + + documented as of this encounter Visit Diagnoses Not on filedocumented in this encounter"
--- OUTSIDE RECORDS SUMMARY | ~2019-08-31 | XMS | Encounter Summary ---
Demographics + + + | Address | [address] | | | [place] [address] | + + + | Home Phone [...] #[address] | | | | | [address] | | + + + + + | Tanika Jean | ECON | Unknown | | + + + + + Care Team Providers + +------+ + | Care Petrol Tanker Driver Name | Role | Phone | [...] | | | | | [address] [facility] | [place] [address] | | | | | [place] [address] | | | | | | [phone] | | | +--------+ + + + [...] | | | | | [place] [facility] | | | | | | [address] | | | | | | | [...] for comparison only - no result from [place]. | [facility] | + + + + +---------+ + + | Performing | Address | City/State/Zipcode | Phone Number | | Organization | | | | + +---------+ + + | [facility] | | | | + +---------+ + + documented in this encounter Visit Diagnoses Not on filedocumented in this encounter"
--- OUTSIDE RECORDS SUMMARY | ~2019-08-31 | XMS | Encounter Summary ---
Demographics + + + | Address | [address] | | | [place] [address] | + + + | Home Phone [...] #[place] | | | | | [address] | | + + + + + | Tanika Jean | ECON | Unknown | | + + + + + Care Team Providers + +------+ + | Care Slps Name | Role | Phone | + [...] Frazier MD | | | | | [place], | | | | | | [place] [address] | | | | | | [phone] | | | +--------+--------+ + + + [...]
--- OUTSIDE RECORDS SUMMARY | ~2019-08-31 | XMS | Encounter Summary ---
Demographics + + + | Address | [address] | | | [place] [address] | + + + | Home Phone [...] #[address] | | | | | [address] | | + + + + + | Tanika Jean | ECON | Unknown | | + + + + + Care Team Providers + +------+ + | Care Route Relief Driver Name | Role | Phone | [...] | Specialty | Physical | Diagnoses | [facility] | | | Services | Therapy | Lumbar | Karlos Gatica MD | Pt Acute | | | Required | | facet | [address] | | | | | arthropathy | [address] | [place], | | | | | Lumbalgia | [place], | [place] | | | | | [place] | [place] [address] | [address] | | | | | | Phone: | Phone: | | | | | | [phone] | [phone] | | | | | | Fax: | Fax: | | | | | | [phone] | [phone] | +--------+ + + + + + Reason for Visit + + + | Reason | Comments | + + + | Back Pain | no pain at this time | + + + Encounter Details +--------+---------+ + + + | Date | Type | Department | Care Team | Description | +--------+---------+ + + + | 04/27/ | Office | [facility] | Karlos Craig, | Lumbar facet | | 2013 | Visit | MEDICINE | MD [address] | arthropathy (Primary | | | | RE[address] | [place], [place] | Dx); Lumbalgia; | | | | [address] | [address] | [place]; Right | | | | [place], [place] | | shoulder pain | | | | [address] | | | | | | [phone] | | | +--------+---------+ + + + [...] therapy within one week, [facility]. Once you have completed physical therapy please continue the home exercise progr am as outline by physical therapy, indefinitely. Resume the home exercises as outlined by physical therapy. Please be seen at [facility] regarding you ataxia. We may consider repeat injections in the future for pain control, up to 3-4 times per year. Return to the clinic in 2-3 months.Electronically signed by Karlos Craig MD at 4 1:43 PM PST documented in this encounter Progress Notes Karlos Craig MD - 04/27/2013 1:45 PM PSTThis office note has been dictated. Job ID# [id number] signed by Karlos Craig MD at 04/27/2013 2:15 PM Arleen Lo RN - 04/27/2013 1:07 PM PSTPatient in clinic for follow up after injection, no pain at t his time. Karlos Berumen MD - 04/27/2013 12:00 AM PST [facility] [address] [place] [address] FAX: [phone] OFFICE VISIT CONSULT REQUESTED BY: Ling Lowe [...] Therapy. He still not been seen at [facility] as recommended by a neurologist, Dr. Roderick [...] noted during gait as well as with tiqsti-fm-fg se testing in upper extremities. Speech is [...] back pain. Approximately 25 minutes was spent unrl-wq-blzq today with Mr. Aguilar, over half of which was spent formulating and discussing his medical treatment plan. Thank you for allowing me to be involved in the care of your the patient. If you have any questions regarding the care of Mr. Aguilar, please do not hesitate to call. Karlos Craig Jr, MD GEM / AF JOB #: [id number] cc: Peter Reina MD documented in this encounter Plan of Treatment +--------+ + + + + | Date | Type | Specialty | Care Team | Description | +--------+ + + + + | 11/16/ | Appointment | Radiology | Alfonso Wallace MD | | | 2019 | | | [address] | | | | | | [place] | | | | | | [address] | | | | | | | [...]
--- OUTSIDE RECORDS SUMMARY | ~2019-08-31 | XMS | Encounter Summary ---
Demographics + + + | Address | [address] | | | [place] [address] | + + + | Home Phone [...] #[address] | | | | | [address] | | + + + + + | Tanika eJan | ECON | Unknown | | + + + + + Care Team Providers + +------+ + | Care Marketing Operations Coordinator Name | Role | Phone | + +------+ + | Jose Angel Reina MD | PCP | | + +------+ + Reason for Visit +---------+ + | Reason | Comments | +---------+ + | Results | PFT performed at [facility] | +---------+ + Encounter Details +--------+ + + + + | Date | Type | Department | Care Team | Description | +--------+ + + + + | 10/21/ | Telephone | [facility] [place] | Claudia Michelle, | Results (PFT | | 2012 | | PULMONARY [address] | RN | performed at | | | | [place], | | Junior) | | | | [place] [address] | | | | | | [phone] | | | +--------+ + + + [...] [place] | | | | | | [address] | | | | | | | | +--------+ + + + + documented as of this encounter Visit Diagnoses Not on filedocumented in this encounter"
--- OUTSIDE RECORDS SUMMARY | ~2019-08-31 | XMS | Encounter Summary ---
Demographics + + + | Address | [address] | | | [place] [address] | + + + | Home Phone [...] | Author | [facility] | | | and [place] | + + + | Organization | [facility] | | | and [place] | + + + | Address | Unknown | + + + | Phone | Unavailable | + + + Support + + + + + | Name | Relationship | Address | Phone | + + + + + | Palak Aguilar | ECON | #[place] | | | | | [address] | | + + + + + | Tanika Jean | ECON | Unknown | | + + + + + Care Team Providers + +------+ + | Care Mapping Specialist Name | Role | Phone | [...] Description | +--------+--------+ + + + | 02/11/ | Refill | [facility] [place] | [place], | Medication Refill | | 2014 | | PULMONARY [address] | Ling Frazier MD | | | | | [place], | | | | | | [place] [address] | | | | | | [phone] | | | +--------+--------+ + + + [...] [place] | | | | | | [address] | | | | | | | | +--------+ + + + + documented as of this encounter Visit Diagnoses Not on filedocumented in this encounter"
--- OUTSIDE RECORDS SUMMARY | ~2019-08-31 | XMS | Encounter Summary ---
Demographics + + + | Address | [address] | | | [place] [address] | + + + | Home Phone [...] #[address] | | | | | [address] | | + + + + + | Tanika Jean | ECON | Unknown | | + + + + + Care Team Providers + +------+ + | Care Service Vehicle Operator Name | Role | Phone [...] + + | 07/06/ | Refill | [facility] | Karlos Craig, | Medication Refill | | 2013 | | MEDICINE | MD [address] | | | | | [address] | [place] | | | | | [address] | [address] | | | | | [place] | | | | | | [address] | | | | | | [phone] | | | +--------+--------+ + + + [...]
--- OUTSIDE RECORDS SUMMARY | ~2019-08-31 | XMS | Encounter Summary ---
Demographics + + + | Address | [address] | | | [place] [address] | + + + | Home Phone [...] #[address] | | | | | [address] | | + + + + + | Tanika Jean | ECON | Unknown | | + + + + + Care Team Providers + +------+ + | Care Mill Worker Name | Role | Phone | [...] | [facility] [place] | [place], | Results (nocturnal | | 2014 | | PULMONARY [address] | Ling Frazier MD | oximetry) | | | | [place], | | | | | | [place] [address] | | | | | | [phone] | | | +--------+ + + + [...] | | | | | [place] | | | | | | [id number] | | | | | | | [...]
--- OUTSIDE RECORDS SUMMARY | ~2019-08-31 | XMS | Encounter Summary ---
Demographics + + + | Address | [address] | | | [place] [address] | + + + | Home Phone [...] #[address] | | | | | [address] | | + + + + + | Tanika Jean | ECON | Unknown | | + + + + + Care Team Providers + +------+ + | Care Sheet Cutter Name | Role | Phone | [...] + + | 05/24/ | Office | [facility] | Chrissy, | COPD exacerbation | | 2012 | Visit | PULMONARY [address] | Ling Frazier MD | ([facility]) (Primary Dx); | | | | [place], | | Tobacco abuse; | | | | [place] [address] | | Nocturnal hypoxemia; | | | | [phone] | | Restless legs | | | [...] where you smoke. Put one on the Ocean Out[employer] rator and one on your car dashboard. [id number] [facility], [address] [place] [address]. All rights reserve d. This information is [...] | | | | | [place] | | | | | | [address] [...]
--- OUTSIDE RECORDS SUMMARY | ~2019-08-31 | XMS | Encounter Summary ---
Demographics + + + | Address | [address] | | | [place] [address] | + + + | Home Phone [...] | Author | [facility] | | | and [place] | + + + | Organization | [facility] | | | and [place] | + + + | Address | Unknown | + + + | Phone | Unavailable | + + + Support + + + + + | Name | Relationship | Address | Phone | + + + + + | Palak Gipsonock | ECON | #[id number] | | | | | [address] | | + + + + + | Tanika Jean | ECON | Unknown | | + + + + + Care Team Providers + +------+ + | Care Box Worker Name | Role | Phone | [...] | | | | | | [place] [address] | | | | | | [phone] | | | +--------+--------+ + + + [...] [place] | | | | | | [address] | | | | | | | [...]
--- OUTSIDE RECORDS SUMMARY | ~2019-08-31 | XMS | Encounter Summary ---
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 Call [facility] and see if they have smoking cessation classes. [facility] offers free smoking cessation classes. We want [...] He is exercising regularly. He goes to [employer] to walk every day when his goes to [employer], and walks 1-2 laps. He does not cough very often. He has not had hemoptysis. He has been evaluated for nocturnal oxygen and does use it. He is currently on 3 LPM at [facility]. He reports good compliance. Past Medical History Past Medical History Diagnosis Date COPD (chronic obstructive pulmonary disease) ([facility]) Diabetes mellitus ([facility]) HTN (hypertension) Seizure disorder ([facility] [...] Breath. Dx: 496 RINA: 99 months [facility] 360 vial 4 aspirin 81 mg EC tablet Take 81 mg by mouth Daily. ivonhbb-iplqyxoqsbvyc-egbxaijd (HEADACHE RELIEF) 250-250-65 MG per tablet Take [...] made to ensure accuracy; however, inadvertent computerized assistant general manager errors may be pre sent. documented [...] | | | | | [place] | | | | | | [address] [...]
--- OUTSIDE RECORDS SUMMARY | ~2019-08-31 | XMS | Encounter Summary ---
Demographics + + + | Address | [address] | | | [place] [address] | + + + | Home Phone [...] #[place] | | | | | [address] | | + + + + + | Tanika Jean | ECON | Unknown | | + + + + + Care Team Providers + +------+ + | Care Senior It Recruiter Name | Role | Phone | + [...] + + | 04/24/ | Telephone | [facility] | Karlos Craig, | Results | | 2014 | | PHYSIATRY [address] | MD [address] | | | | | [address] | [place] | | | | | [place] | [address] | | | | | [address] | | | | | | [phone] | | | +--------+ + + + [...] [place] | | | | | | [address] | | | | | | | | +--------+ + + + + documented as of this encounter Visit Diagnoses Not on filedocumented in this encounter"
--- OUTSIDE RECORDS SUMMARY | ~2019-08-31 | XMS | Encounter Summary ---
Demographics + + + | Address | [address] | | | [place] [address] | + + + | Home Phone [...] #[place] | | | | | [address] | | + + + + + | Tanika Jean | ECON | Unknown | | + + + + + Care Team Providers + +------+ + | Care Creative Consultant Name | Role | Phone | [...] + + | 08/23/ | Telephone | [facility] | Alfonso Wallace MD | Results | | 2020 | | P[address]OLOGY [address] | | | | | [address] | [place], [place] | | | | | [place], [place] | [address] | | | | | [address] | | | | | | [phone] | | | +--------+ + + + [...]
--- OUTSIDE RECORDS SUMMARY | ~2019-08-31 | XMS | Encounter Summary ---
Demographics + + + | Address | [address] | | | [place] [address] | + + + | Home Phone [...] #[place] | | | | | [address] | | + + + + + | Tanika Jean | ECON | Unknown | | + + + + + Care Team Providers + +------+ + | Care Barber Or Beauty Shop Manager Name | Role | Phone | [...] | | | | | | [place] [address] | | | | | | [phone] | | | +--------+--------+ + + + [...] | | | | | [place] [facility] | | | | | | [address] | | | | | | | [...]
--- OUTSIDE RECORDS SUMMARY | ~2019-08-31 | XMS | Encounter Summary ---
Demographics + + + | Address | [address] | | | [place] [address] | + + + | Home Phone [...] #[address] | | | | | [address] | | + + + + + | Tanika Jean | ECON | Unknown | | + + + + + Care Team Providers + +------+ + | Care Pipe Testing Technician Name | Role | Phone | + +------+ + | Jose Angel Reina MD | PCP | | + +------+ + Encounter Details +--------+ + + + + | Date | Type | Department | Care Team | Description | +--------+ + + + + | 04/20/ | Hospital | [facility] | Karlos Craig, | Right shoulder pain; | | 2014 | Encounter | MED CTR XRAY [address] | MD [address] | Rotator cuff | | | | [place] | [place] | tendonitis, right; | | | | [place] [address] | [address] | Rotator cuff tear | | | | [phone] | | arthropathy of right | | [...] 99 | | | | | | ([facility]) | months | | | | | [...] [place] | | | | | | [address] | | | | | | | [...] for MRI or CT (04/20/2014 10:09 AM [facility]) + + | Specimen | + + [...] + | MISCELLANEOUS LAB | | | [phone] | + +---------+ + + | MISCELANIOUS LAB | | | [phone] | + +---------+ + + documented in [...]
--- OUTSIDE RECORDS SUMMARY | ~2019-08-31 | XMS | Encounter Summary ---
Demographics + + + | Address | [address] | | | [place] [address] | + + + | Home Phone [...] #[place] | | | | | [address] | | + + + + + | Tanika Jean | ECON | Unknown | | + + + + + Care Team Providers + +------+ + | Care Border Measurer And Cutter Name | Role | Phone | [...] | RN | | | | | [place], | | | | | | [place] [address] | | | | | | [phone] | | | +--------+ + + + [...] [place] | | | | | | [address] | | | | | | | | +--------+ + + + + documented as of this encounter Visit Diagnoses Not on filedocumented in this encounter"
--- OUTSIDE RECORDS SUMMARY | ~2019-08-31 | XMS | Encounter Summary ---
Demographics + + + | Address | [address] | | | [place] [address] | + + + | Home Phone [...] #[address] | | | | | [address] | | + + + + + | Tanika Jean | ECON | Unknown | | + + + + + Care Team Providers + +------+ + | Care Kiln Packer Name | Role | Phone | + [...] | Karlos Gatica MD | [address] | | | | | shoulder | [address] | [place], | | | | | pain | [address] | [place] | | | | | Rotator cuff | [place], | [address] | | | | | tendonitis, | [place] [address] | Phone: | | | | | right | Phone: | [phone] | | | | | Rotator cuff | [phone] | Fax: | | | | | tear | Fax: | [phone] | | | | | arthropathy | [phone] | | | | | | of [...] | Karlos Gatica MD | [address] | | | | | shoulder | [address] | [place], | | | | | pain | [address] | [place] | | | | | Rotator cuff | [place], | [address] | | | | | tendonitis, | [place] [address] | Phone: | | | | | right | Phone: | [phone] | | | | | Rotator cuff | [phone] | Fax: | | | | | tear | Fax: | [phone] | | | | | arthropathy | [phone] | | | | | | of [...] + | 04/20/ | Hospital | [facility] | Karlos Craig MD | Right shoulder pain; | | 2014 | Encounter | MED CTR MRI [address] | [address] | Rotator cuff | | | | [address] [place], | [address] [place], | tendonitis, right; | | | | [place] [address] | [place] [address] | Rotator cuff tear | | | | [phone] | [phone] | arthropathy of right | | | | | | shoulder | | | | | Karlos Craig MD | | | | | | [address] | | | | | | [place], [place] | | | | | | [address] | | | | | | | [...] [place] | | | | | | [address] | | | | | | | [...] | | |Dictated and Signed by: Yared iDaz MD | | Electronically signed: 04/20/2014 1:41 PM | + + + +---------+ + + | Performing | Address | City/State/Zipcode | Phone Number | | Organization | | | | + +---------+ + + | MISCELLANEOUS LAB | | | [phone] | + +---------+ + + | MISCELANIOUS LAB | | | [phone] | + +---------+ + + documented in [...]
--- OUTSIDE RECORDS SUMMARY | ~2019-08-31 | XMS | Encounter Summary ---
Demographics + + + | Address | [address] | | | [place] [address] | + + + | Home Phone [...] #[place] | | | | | [address] | | + + + + + | Tanika Jean | ECON | Unknown | | + + + + + Care Team Providers + +------+ + | Care Tie Knitter Helper Name | Role | Phone | [...] | | | hazards to | | [address] Phone: | | | | | health | | [phone] | | | | | Centrilobula | | Fax: | | | | | r emphysema | | [phone] | | | | | ([facility]) | | | | | | | Procedures | | | | | | | BRONCHOSCOPY | | | | | | | | | | | | | | ELECTROMAGNE | | | | | | | TIC | | | | | | | NAVIGATION | | | | | | | [[id number]] | | | +--------+--------+ + + + + Encounter Details +--------+ + + + + | Date | Type | Department | Care Team | Description | +--------+ + + + + | 08/14/ | Hospital | [facility] | Alfonso Wallace MD | Personal history of | | 2020 | Encounter | [facility] | [address] | tobacco use, | | | | OPER[address] | [place], [place] | presenting hazards | | | | [address] | [id number] | to health; | | | | [place], [place] | | Centrilobular | | | | [address] | | emphysema (HCC); | | | | [phone] | | Personal history of | | [...] SINGH | | | | | | [address] | | | | | | | [...] section. | + +--------+ +---+ + | [facility] | Routin | 08/15/2019 | [...] | | | | | performed at [facility], | | | | | | [address], [address], | | | | | | [facility] [address] | | | | + + + + + + + + | Specimen | + + | | + + + + + + + | Performing | Address | City/State/Zipcode | Phone Number | | Organization | | | | + + + + + | [facility] | [address] | [place] [address] | [phone] | + + + + + CULTURE, [...] | | | | | performed by [facility], | | | | | | [address], | | | | | | [facility] [address] | | | | + + + + + + + + | Specimen | + + | | + + + + + + + | Performing | Address | City/State/Zipcode | Phone Number | | Organization | | | | + + + + + | [facility] | [address] | [place] [address] | [phone] | + + + + + Culture, [...] | | LABORATORY | | | | [facility], [address] | | | | | | [place] | | | | | | [address] | | | | + + + [...] | | | | | performed at [facility], | | | | | | [address], | | | | | | [facility] [address] | | | | + + + + + + + + | Specimen | + + | | + + + + + + + | Performing | Address | City/State/Zipcode | Phone Number | | Organization | | | | + + + + + | [facility] | [address] | [place] [address] | [phone] | + + + + + AFB, [...] | LABORATORY | | | | Blvd, [place], [place] | | | | | | [id number]: Testing | | | | | | performed at [facility], [address] | | | | | | [address], | | | | | | [place] [address] | | | | + + + + + + + + | Specimen | + + | | + + + + + + + | Performing | Address | City/State/Zipcode | Phone Number | | Organization | | | | + + + + + | [facility] | [address] | [place] [address] | [phone] | + + + + + CHRISTOPHER [...] RESULT | Testing performed at | | [facility] | | | | [facility], [address] [facility] | | LABORATORY | | | | [address], [place] | | | | | | [id number]: Testing | | | | | | performed at [facility], [address] | | | | | | [facility] [address], | | | | | | [place] [address] | | | | + + + + + + + + | Specimen | + + | | + + + + + + + | Performing | Address | City/State/Zipcode | Phone Number | | Organization | | | | + + + + + | [facility] | [address] | [place] [address] | [phone] | + + + + + Giovana [...] LABORATORY | | | | performed at [facility];[address] | | | | | | [address];[place], [place] | | | | | | [address] | | | | + + + + + + | Fungus | Preliminary | | [facility] | | | (Mycology) | reportComment: Testing | | LABORATORY | | | Culture | performed by [facility], | | | | | | [address], | | | | | | [place] [address] | | | | + + + + + + + + | Specimen | + + | | + + + + + + + | Performing | Address | City/State/Zipcode | Phone Number | | Organization | | | | + + + + + | [facility] | [address] | [place] [address] | [phone] | + + + + + Culture, [...] | [facility] | | | Result | [facility], [address] [facility] | | LABORATORY | | | | [place] | | | | | | [address] | | | | + + + [...] at | | | | | | [facility], [address] [facility] | | | | | | [place], [place] | | | | | | [address] | | | | + + + + + + + + | Specimen | + + | | + + + + + + + | Performing | Address | City/State/Zipcode | Phone Number | | Organization | | | | + + + + + | [facility] | [address] | [place] [address] | [phone] | + + + + + Medical [...] component was | | | performed by [facility], [address] [place] | | | [place] [address] (Perianesthesia Manager: Ramses Purdy D.O.; CLIA#: | | | [id number]).Professional interpretation was performed by [facility] | | | [address], | | | [place] [address] (Perianesthesia Manager: Yoandy Kirkland M.D.; CLIA#: | | | [id number]). Diagnostician: Yoel SLAUGHTER | | | ([facility])CytotechnologistDiagnostician: Nata Gallego | | | MDPathologistElectronically Signed [...] | |The technical component was performed by [facility], [address] [place] [address] (Perianesthesia Manager: Ramses Purdy D.O.; CLIA#: [id number]). | | |Professional interpretation was performed by [facility], [address] [address] (Perianesthesia Manager: Yoandy Kirkland M.D.; CLIA#: [id number]). | | | | | |Diagnostician: Yoel SLAUGHTER ([facility]) | | |Production Assembly Supervisor | | |Diagnostician: Nata Gallego MD | [...] | | with the patient's concurrent cytology ([id number]). AMB:emb:C2NR | | | MICROSCOPIC EXAMINATION:Histologic sections [...] | | technical component was performed by [facility], [address] [place] [address] | | | [place] [address] (Perianesthesia Manager: Nata Gallego MD; CLIA# | | | [id number]). Professional interpretation was performed by[facility] | | | Diagnostics, [facility], [address] [place] [address], | | | [place] [address] (Perianesthesia Manager: Yoandy Kirkland M.D.; CLIA#: | | | [id number]). Diagnostician: Nata Gallego | | | MDPathologistElectronically Signed 08/16/2019 | | | | | |PERFORMING LABORATORY: | | |The technical component was performed by [facility], [address] [place] [address] (Perianesthesia Manager: Nata Gallego MD; CLIA# [id number]). Professional interpretation was performed by | | |[facility], [address] [address] (Perianesthesia Manager: Yoandy Kirkland M.D.; CLIA#: [id number]). | | | | | |Diagnostician: Nata [...] | + + + | [facility] | [facility] | | [facility] | PROVATION | | CenterPulmonology | | | Patient Name: Kevin Daugherty | | | Procedure Date: 08/15/2019 6:55 AMMRN: [id number] | | | Date of : 1950Note [...] | | | navigation bronchoscopy utilizing the Kadient system | | | was performed. The [...] On: | | | 08/15/2019 6:55 AM [facility] | | | Department | | |This report has been signed electronically. | | |Number of Addenda: 0 | | | | | |Note Initiated On: 08/15/2019 6:55 AM | | | | | | [facility] Department | | + [...] [facility] | | | | performed at [facility];8 | | LABORATORY | | | | [facility];[place], [place] | | | | | | [address] | | | | + + + + + + + + | Specimen | + + | Blood | + + + + + + + | Performing | Address | City/State/Zipcode | Phone Number | | Organization | | | | + + + + + | [facility] | [address] | [place] [address] | [phone] | + + + + + Basic [...] | >60Comment: GFR <60: | >60 | [facility] | | | GFR | CHRONIC KIDNEY [...] | | | | | | MDRD IDDE traceable | | | | | | equation.Testing | | | | | | performed at [facility] | | | | | | [facility];[place], [place] | | | | | | [address] | | | | + + + + + + + + | Specimen | + + | Blood | + + + + + + + | Performing | Address | City/State/Zipcode | Phone Number | | Organization | | | | + + + + + | [facility] | [address] | [place] [address] | [phone] | + + + + + documented [...] One week or | | | longer, rcrqka-hto-albqp use of | | | at least [...] scheduled: AC, NPO, Daytime | | | 5996-0644 Use NIGHT DOSE for | | | doses scheduled: HS, 3AM, | | | Nighttime 0614-6187 If the BG is | | | [...]
--- OUTSIDE RECORDS SUMMARY | ~2019-08-31 | XMS | Encounter Summary ---
Demographics + + + | Address | [address] | | | [place] [address] | + + + | Home Phone [...] #[address] | | | | | [address] | | + + + + + | Tanika Jean | ECON | Unknown | | + + + + + Care Team Providers + +------+ + | Care Product Manager Financial Services Name | Role | Phone | [...] + + | 03/16/ | Office | [facility] | Karlos Craig, | Lumbar facet | | 2012 | Visit | MEDICINE | MD [address] | arthropathy (Primary | | | | REH[address] | [place] | Dx); Lumbalgia; | | | | [address] | [address] | Tobacco dependence | | | | [place] | | | | | | [address] | | | | | | [phone] | | | +--------+---------+ + + + [...] Your inje ction will be performed at [facility]. Please take note of weather your pain is significantly reduced in the hours immediately following the injecti on. Return to the clinic in 5 weeks. documented in this encounter Progress Notes Karlos Craig MD - 03/16/2013 4:31 PM PSTThis office note has been dictated. Job ID# [id number] signed by Karlos Craig MD at 03/16/2013 6:20 PM Arleen Lo RN - 03/16/2013 3:46 PM PSTPatient continues to have unsteady gait, Patient using 4WW to day. Patient states 5/10 right shoulder pain. Electronically signed by VERÓNICA Swain t 03/16/2013 6:20 PM Karlos Berumen MD - 03/16/2013 12:00 AM PST PHYSICAL MEDICINE AND REHAB [address] [place] [address] FAX: [phone] OFFICE VISIT PHYSICAL MEDICINE REHABILITATION PROGRESS NOTE [...] He is encouraged to follow up with [facility] as previously requested to work up, [...] Jr, MD GEM / JEL JOB #: [id number] cc: MD Peter Hatfield MD documented in [...]
--- OUTSIDE RECORDS SUMMARY | ~2019-08-31 | XMS | Encounter Summary ---
Demographics + + + | Address | [address] | | | [place] [address] | + + + | Home Phone [...] #[address] | | | | | [address] | | + + + + + | Tanika Jean | ECON | Unknown | | + + + + + Care Team Providers + +------+ + | Care Superintendent Radio Communications Name | Role | Phone | + [...] | | | | | | [place] [address] | | | | | | [phone] | | | +--------+ + + + [...] [place] | | | | | | [address] | | | | | | | | +--------+ + + + + documented as of this encounter Visit Diagnoses Not on filedocumented in this encounter"
--- OUTSIDE RECORDS SUMMARY | ~2019-08-31 | XMS | Encounter Summary ---
Demographics + + + | Address | [address] | | | [place] [address] | + + + | Home Phone [...] #[address] | | | | | [address] | | + + + + + | Tanika Jean | ECON | Unknown | | + + + + + Care Team Providers + +------+ + | Care Hydrator Name | Role | Phone | + [...] Frazier MD | | | | | [place], | | | | | | [place] [address] | | | | | | [phone] | | | +--------+--------+ + + + [...] | | | | | [place] | | | | | | [address] | | | | | | | | +--------+ + + + + documented as of this encounter Visit Diagnoses Not on filedocumented in this encounter"
--- OUTSIDE RECORDS SUMMARY | ~2019-08-31 | XMS | Encounter Summary ---
Demographics + + + | Address | [address] | | | [place] [address] | + + + | Home Phone [...] #[address] | | | | | [address] | | + + + + + | Tanika Jean | ECON | Unknown | | + + + + + Care Team Providers + +------+ + | Care Associate Professor Of Medicine Name | Role | Phone | + [...] | RN | | | | | [place], | | | | | | [place] [address] | | | | | | [phone] | | | +--------+ + + + [...] [place] | | | | | | [address] | | | | | | | | +--------+ + + + + documented as of this encounter Visit Diagnoses + + | Diagnosis | + + | Hypoxemia | + + documented in this encounter
--- OUTSIDE RECORDS SUMMARY | ~2019-08-31 | XMS | Encounter Summary ---
Demographics + + + | Address | [address] | | | [place] [address] | + + + | Home Phone | | + + + | Preferred Language | Unknown | + + + | Marital Status | Single | + + + | Hindu Affiliation | Unknown | + + + | Race | Unknown | + + + | Ethnic Group | Other Race | + + + Author + + + | Author | [facility] | + + + | Organization | [facility] | + + + | Address | Unknown | + + + | Phone | Unavailable | + + + Care Team Providers + +------+ + | Care Machine Bander And Cellophaner Helper Name | Role | Phone | + +------+ + PCP | Unavailable | + +------+ + Encounter Details +--------+ + + + + | Date | Type | Department | Care Team | Description | +--------+ + + + + | 02/11/ | Documentati | Neurology at | [place], | | | 2010 | on | [facility] & | MD [address] | | | | | Healing [address] | [place], [place] | | | | | Ave Mailcode: [place] | [address] | | | | | [facility] | [phone] | | | | | and Healing, | | | | | | [facility] | | | | | | Floor [facility] [place] | | | | | | [address] | | | | | | [phone] | | | +--------+ + + + [...]
--- OUTSIDE RECORDS SUMMARY | ~2019-08-31 | XMS | Encounter Summary ---
Demographics + + + | Address | [address] | | | [place] [address] | + + + | Home Phone [...] Author | [facility] | | | and [place] | + + + | Organization | [facility] | | | and [place] | + + + | Address | Unknown | + + + | Phone | Unavailable | + + + Support + + + + + | Name | Relationship | Address | Phone | + + + + + | Palak Aguilar | ECON | #[place] | | | | | [address] | | + + + + + | Tanika Jean | ECON | Unknown | | + + + + + Care Team Providers + +------+ + | Care Kick Plate Installer Name | Role | Phone | [...] | | | | | | [place] [address] | | | | | | [phone] | | | +--------+ + + + [...] [place] | | | | | | [address] | | | | | | | | +--------+ + + + + documented as of this encounter Visit Diagnoses Not on filedocumented in this encounter"
--- OUTSIDE RECORDS SUMMARY | ~2019-08-31 | XMS | Encounter Summary ---
Demographics + + + | Address | [address] | | | [place] [address] | + + + | Home Phone [...] #[address] | | | | | [address] | | + + + + + | Tanika Jean | ECON | Unknown | | + + + + + Care Team Providers + +------+ + | Care Bar Hostess Name | Role | Phone | + [...] | | PULMONARY [address] | Ling Frzaier MD | | | | | [place], | | | | | | [place] [address] | | | | | | [phone] | | | +--------+--------+ + + + [...] | | | | | [place] | | | | | | [address] | | | | | | | [...]
--- OUTSIDE RECORDS SUMMARY | ~2019-08-31 | XMS | Encounter Summary ---
Demographics + + + | Address | [address] | | | [place] [address] | + + + | Home Phone [...] #[address] | | | | | [address] | | + + + + + | Tanika Jean | ECON | Unknown | | + + + + + Care Team Providers + +------+ + | Care Rim Buster Name | Role | Phone | + [...] + + | 01/30/ | Telephone | [facility] | Honey Thurman | Other (follow-up on | | 2012 | | NEUROSURGERY [address] | N, RN | labs) | | | | [address] | | | | | | [place] | | | | | | [address] | | | | | | [phone] | | | +--------+ + + + [...] [place] | | | | | | [id number] | | | | | | | | +--------+ + + + + documented as of this encounter Visit Diagnoses Not on filedocumented in this encounter"
--- OUTSIDE RECORDS SUMMARY | ~2019-08-31 | XMS | Encounter Summary ---
Demographics + + + | Address | [address] | | | [place] [address] | + + + | Home Phone [...] Organization | [facility] | | | and [place] | + + + | Address | Unknown | + + + | Phone | Unavailable | + + + Support + + + + + | Name | Relationship | Address | Phone | + + + + + | Palak Aguilar | ECON | #[address] | | | | | [address] | | + + + + + | Tanika Jean | ECON | Unknown | | + + + + + Care Team Providers + +------+ + | Care Manager Reimbursement Name | Role | Phone | + [...] | weakness | Ling B, | [address] | | | | n | | [address] | [place], | | | | | | [address] | [place] [address] | | | | | | [place], | Phone: | | | | | | [place] [address] | [phone] | | | | | | | Fax: | | | | | | | [phone] | +--------+ + + + + + Reason for Visit + + + | Reason | Comments | + + + | Follow-up | | + + + Encounter Details +--------+---------+ + + + | Date | Type | Department | Care Team | Description | +--------+---------+ + + + | 11/21/ | Office | [facility] | Offenstein, | COPD (chronic | | 2012 | Visit | PULMONARY [address] | Ling Frazier MD | obstructive | | | | [place], | | pulmonary disease) | | | | [place] [address] | | (HCC) (Primary Dx); | | | | [phone] | | Nocturnal hypoxemia; | | | [...] Sarah [place] [facility] [address] [place], [address] HPI Nazario Aguilar is a 62 y.o. male patient of Jose Angel Renia here today for follow u p of COPD. At their last visit, we had treated him with prednisone and doxycycline. We repeated his [facility] oximetry on room air, which showed that he desaturated, and we recommended he stay o n 3L at night. He had repeat spirometry done in [place] and it showed mild obstructive cadence g [...] work up done by Dr. Reina (formerly [facility] what was done, the patient is [...] were performed on October 12, 2012 at [facility] and were r eviewed and interpreted [...] made to ensure accuracy; however, inadvertent computerized bilingual office assistant errors may be pre sent. documented in [...] [place] | | | | | | [address] | | | | | | | [...]
--- OUTSIDE RECORDS SUMMARY | ~2019-08-31 | XMS | Encounter Summary ---
Demographics + + + | Address | [address] | | | [place] [address] | + + + | Home Phone [...] | Author | [facility] | | | and [place] | + + + | Organization | [facility] | | | and [place] | + + + | Address | Unknown | + + + | Phone | Unavailable | + + + Support + + + + + | Name | Relationship | Address | Phone | + + + + + | Palak Aguilar | ECON | [address] | | | | | [address] | | + + + + + | Tanika Jean | ECON | Unknown | | + + + + + Care Team Providers + +------+ + | Care Continuous Improvement Engineer Name | Role | Phone | [...] | | | | | [place] | | | | | | [address] | | | | | | [phone] | | | +--------+ + + + [...] [place] | | | | | | [id number] | | | | | | | | +--------+ + + + + documented as of this encounter Visit Diagnoses Not on filedocumented in this encounter"
--- OUTSIDE RECORDS SUMMARY | ~2019-08-31 | XMS | Encounter Summary ---
Demographics + + + | Address | [address] | | | [place] [address] | + + + | Home Phone [...] #[address] | | | | | [address] | | + + + + + | Tanika Jean | ECON | Unknown | | + + + + + Care Team Providers + +------+ + | Care Sterile Supervisor Name | Role | Phone | [...] | | | | | pain | [address] | | | | | | Rotator cuff | [place], | | | | | | tear | [place] [address] | | | | | | arthropathy | Phone: | | | | | | of right | [phone] | | | | | | shoulder | Fax: | | | | | | | [phone] | | +--------+ + + + + + Reason for Visit + + + | Reason | Comments | + + + | Shoulder Pain | | + + + Encounter Details +--------+---------+ + + + | Date | Type | Department | Care Team | Description | +--------+---------+ + + + | 05/11/ | Office | [facility] [place] | Karlos Craig, | Right shoulder pain | | 2015 | Visit | PHYSIATRY [address] | [address] | (Primary Dx); | | | | [address] | [place] | Rotator cuff tear | | | | [place] | [address] | arthropathy of right | | | | [address] | | shoulder | | | | [phone] | | | +--------+---------+ + + + [...] MD - 05/11/2014 2:25 PM PST [facility] PHYSIATRY [address] [facility] [id number] OFFICE NOTE KARLOS CRAIG JR, MD Patient: KEVIN DAUGHERTY Admitting: MR #: [id number] LOC: PT TYPE: Adm Date: 05/11/2014 : [...] ALLERGIES: LEVOFLOXACIN and CHANTIX. CURRENT MEDICATIONS: Albuterol. Dnxedku-xhhjobyomlvxf-vupltahw. Lipitor. Carbamazepine. Vitamin B12. Valium. Flonase. Advair [...] 14:25:03 Transcribed on 05/12/2014 03:00:15 by job# [id number] Confirmation #: [id number] cc: LYN FIELDS MD 9:1 0 AM Karlos Berumen MD - 05/11/2014 12:54 PM PSTThis office note has been dictated. Job ID# [id number] signed by Karlos Craig MD at 05/11/2014 [...] [place] | | | | | | [address] | | | | | | | [...]
--- OUTSIDE RECORDS SUMMARY | ~2019-08-31 | XMS | Encounter Summary ---
Demographics + + + | Address | [address] | | | [place] [address] | + + + | Home Phone [...] #[place] | | | | | [address] | | + + + + + | Tanika Jean | ECON | Unknown | | + + + + + Care Team Providers + +------+ + | Care Lay Out Machine Operator Name | Role | Phone [...] facet | [address] | | | | | arthropathy | [address] | [place], | | | | | Lumbalgia | [place], | [place] | | | | | Ataxia | [place] [address] | [address] | | | | | | Phone: | Phone: | | | | | | [phone] | [phone] | | | | | | Fax: | Fax: | | | | | | [phone] | [phone] | +--------+ + + + + + Reason for Visit + + + | Reason | Comments | + + + | Back Pain | no pain at this time | + + + Encounter Details +--------+---------+ + + + | Date | Type | Department | Care Team | Description | +--------+---------+ + + + | 04/27/ | Office | [facility] | Karlos Craig, | Lumbar facet | | 2013 | Visit | MEDICINE | MD [address] | arthropathy (Primary | | | | REHABILITATION [address] | [place], [place] | Dx); Lumbalgia; | | | | [address] | [address] | Ataxia; Right | | | | [place], [place] | | shoulder pain | | | | [address] | | | | | | [phone] | | | +--------+---------+ + + + [...] physical therapy within one week, please contact [facility]. Once you have completed physical therapy please continue the home exercise progr am as outline by physical therapy, indefinitely. Resume the home exercises as outlined by physical therapy. Please be seen at [facility] regarding you ataxia. We may consider repeat injections in the future for pain control, up to 3-4 times per year. Return to the clinic in 2-3 months.Electronically signed by Karlos Craig MD at 4 1:43 PM PST documented in this encounter Progress Notes Karlos Craig MD - 04/27/2013 1:45 PM PSTThis office note has been dictated. Job ID# [id number] signed by Karlos Craig MD at 04/27/2013 2:15 PM Arleen Lo RN - 04/27/2013 1:07 PM PSTPatient in clinic for follow up after injection, no pain at t his time. Karlos Berumen MD - 04/27/2013 12:00 AM PST PHYSICAL MEDICINE AND REHAB [address] [place] [address] FAX: [phone] OFFICE VISIT CONSULT REQUESTED BY: Ling Lowe [...] Therapy. He still not been seen at [facility] as recommended by a neurologist, Dr. Roderick [...] noted during gait as well as with dwfrcj-ro-es se testing in upper extremities. Speech is [...] back pain. Approximately 25 minutes was spent eqai-yg-gaqc today with Mr. Aguilar, over half of which was spent formulating and discussing his medical treatment plan. Thank you for allowing me to be involved in the care of your the patient. If you have any questions regarding the care of Mr. Aguilar, please do not hesitate to call. Karlos Craig Jr, MD GEM / AF JOB #: [id number] cc: Peter Reina MD documented in this encounter Plan of Treatment +--------+ + + + + | Date | Type | Specialty | Care Team | Description | +--------+ + + + + | 11/16/ | Appointment | Radiology | Alfonso Wallace MD | | | 2019 | | | [address] | | | | | | [place] | | | | | | [id number] | | | | | | | [...]
--- OUTSIDE RECORDS SUMMARY | ~2019-08-31 | XMS | Encounter Summary ---
Demographics + + + | Address | [address] | | | [place] [address] | + + + | Home Phone [...] #[address] | | | | | [address] | | + + + + + | Tanika Jean | ECON | Unknown | | + + + + + Care Team Providers + +------+ + | Care Street Sprinkler Name | Role | Phone | + +------+ + | Jose Angel Reina MD | PCP | | + +------+ + Encounter Details +--------+ + + + + | Date | Type | Department | Care Team | Description | +--------+ + + + + | 01/19/ | Hospital | [facility] | Roderick Williamson MD [address] | Cerebellar ataxia | | 2012 | Encounter | MED CTR LABORATORY | [facility] | ([facility]LY [facility]) | | | | [address] | [address] | | | | | [facility] [place] | [place] [address] | | | | | [address] | [phone] | | | | | [phone] | | | +--------+ + + + [...] | ([facility]ERLY [facility]) | | | | [...] | 2020 | | | [address] | | | | | | [place] | | | | | | [address] | | | | | | | [...] + | [facility] | [address] | [place], [place] | [phone] | | [facility] | | [address] | | | - LABORATORY | | | | + + + + + | [facility] | [address] | [place], [place] | | | [facility] | | [address] | | | - LABORATORY | [...] | Performed: [facility], [address] | | [facility] | | | | [place] | | MEDICAL | | | | [address] CLIA: [id number] | | CENTER - | | | | | | LABORATORY | | + + + + + + + + | Specimen | + + | | + + + + + + + | Performing | Address | City/State/Zipcode | Phone Number | | Organization | | | | + + + + + | [facility] | [address] | [place] | [phone] | | [facility] | | [address] | | | - LABORATORY | | | | + + + + + | [facility] | [address] | [place], [place] | | | [facility] | | [address], [facility] | | | - LABORATORY | [...] NOTE: | 5.5 - 21.0 mg/L | STUATR | | | herol | METHOD CHANGE HPLC | | [facility] | | | | Corrected on 02/06 [...] | | | | | determined by [facility] | | | | | | Division [...] decisions. | | | | | | [facility] is authorized | | | | | [...] [place], | | | | | | [place] [address] | | | | | | CLIA: [id number] | | | | + + + + + + + + | Specimen | + + | | + + + + + + + | Performing | Address | City/State/Zipcode | Phone Number | | Organization | | | | + + + + + | [facility] | [address] | [place], [place] | [phone] | | [facility] | | [address] | | | - LABORATORY | | | | + + + + + | [facility] | [address] | [place], [place] | | | [facility] | | [address] | | | - LABORATORY | [...] performed on the Josr | uIU/mL | [facility] | | | | [facility] | | MEDICAL | | | [...] [address] | [place] | [phone] | | [facility] | | [address] | | | - LABORATORY | | | | + + + + + | [facility] | [address] | [place] | | | [facility] | | [address], [facility] | | | - LABORATORY | [...] 7 | 7 - 18 mg/dL | [facility] | | | | | | ST. [...] + | [facility] | [address] | [place] | [phone] | | [facility] | | [address] | | | - LABORATORY | | | | + + + + + | [facility] | [address] | [place] | | | [facility] | | [address], [facility] | | | - LABORATORY | [...] + | [address] [facility] | [address] | [place] | [phone] | | [facility] | | [address] | | | - LABORATORY | | | | + + + + + | [address] [facility] | [address] | [place], [place] | | | [facility] | | [address] | | | - LABORATORY | [...] | | MEDICAL | | | | [id number]: [id number] | | CENTER - | | | [...] + | [facility] | [address] | [place], [place] | [phone] | | [facility] | | [address] | | | - LABORATORY | | | | + + + + + | [facility] | [address] | [place], [place] | | | [facility] | | [address], [facility] | | | - LABORATORY | [...] | ST. [facility] | | | | [facility] | | MEDICAL | | | [...] + | [facility] | [address] | [place] | [phone] | | [facility] | | [address] | | | - LABORATORY | | | | + + + + + | [address] | [address] | [place] | | | [facility] | | [address] | | | - LABORATORY | [...] | | | | | [place] [address] | | | | | | CLIA: [id number] | | | | + + + + + + + + | Specimen | + + | Blood specimen | | (specimen) | + + + + + + + | Performing | Address | [facility] | Phone Number | | Organization | | | | + + + + + | [facility] | [address] | [place] | [phone] | | [facility] | | [address] | | | - LABORATORY | | | | + + + + + | [facility] | [address] | [place], [place] | | | [facility] | | [address], [facility] | | | - LABORATORY | [...] + | [facility] | [address] | [place] | [phone] | | [facility] | | [address] | | | - LABORATORY | | | | + + + + + | [facility] | [address] | [place] | | | [facility] | | [address] | | | - LABORATORY | [...] + | [facility] | [address] | [place], [place] | [phone] | | [facility] | | [address] | | | - LABORATORY | | | | + + + + + | [facility] | [address] | [place], [place] | | | [facility] | | [address], [facility] | | | - LABORATORY | [...] [address] | [place] | [phone] | | [facility] | | [address] | | | - LABORATORY | | | | + + + + + | [facility] | [address] | [place], [place] | | | [facility] | | [address], [facility] | | | - LABORATORY | | | | + + + + + documented in this encounter Visit Diagnoses + + | Diagnosis | + + | Cerebellar ataxia (HCC) Other cerebellar ataxia | + + documented in this encounter"
--- OUTSIDE RECORDS SUMMARY | ~2019-08-31 | XMS | Encounter Summary ---
Demographics + + + | Address | [address] | | | [place] [address] | + + + | Home Phone [...] #[address] | | | | | [address] | | + + + + + | Tanika Jean | ECON | Unknown | | + + + + + Care Team Providers + +------+ + | Care Vasc Tech Name | Role | Phone | + +------+ + | Jose Angel Reina MD | PCP | | + +------+ + Encounter Details +--------+ + + + + | Date | Type | Department | Care Team | Description | +--------+ + + + + | 06/16/ | Hospital | [facility] | [place], | Chronic obstructive | | 2016 | Encounter | MED CTR PULMONARY | Ling Frazier MD | pulmonary disease, | | | | FUNCTION [address] | | unspecified COPD | | | | [place], | | type (HCC); | | | | [place] [address] | | Hypoxemia | | | | [phone] | | | +--------+ + + + [...] | | | | | | | ([facility]) | | | | | | + [...] [place] | | | | | | [address] | | | | | | | [...]
--- OUTSIDE RECORDS SUMMARY | ~2019-08-31 | XMS | Encounter Summary ---
Demographics + + + | Address | [address] | | | [place] [address] | + + + | Home Phone [...] #[address] | | | | | [address] | | + + + + + | Tanika Jean | ECON | Unknown | | + + + + + Care Team Providers + +------+ + | Care Computer Systems Support Specialist Name | Role | Phone | [...] + + | 09/27/ | Office | [facility] [place] | [place], | COPD (chronic | | 2013 | Visit | PULMONARY [address] | Ling Frazier MD | obstructive | | | | [place], | | pulmonary disease) | | | | [place] [address] | | (Primary Dx); | | | | [phone] | | Nocturnal hypoxemia | | | [...] want to do the lab tests that [facility] recommended, let me know, and I will figure out h ow to do it. [phone] is a free service to help you [...] The quit line is available in both Divehi and Turkmen with translation and TTY services. It is [...] health care facility. He reports good compliance. Past Medical History [...] Breath. Dx: 496 RINA: 99 months [employer] [place] 360 vial 4 aspirin 325 mg tablet [...] that he look in to classes at [facility]. He wanted to know if patches [...] - He inquired about the testing that [facility] wanted, so I looked in the [facility] system, got their notes and have [...] to inquire about smoking cessation classes at [facility]. 4. We will inquire about cost of testing: complete ataxia panel from [place] or equivalent fragile X premutation (FMR1) lipid [...] made to ensure accuracy; however, inadvertent computerized creative art director errors may be pre sent. Electronically [...] [place] | | | | | | [address] | | | | | | | [...]
--- OUTSIDE RECORDS SUMMARY | ~2019-08-31 | XMS | Encounter Summary ---
Demographics + + + | Address | [address] | | | [place] [address] | + + + | Home Phone [...] #[place] | | | | | [address] | | + + + + + | Tanika Jean | ECON | Unknown | | + + + + + Care Team Providers + +------+ + | Care Pickling Operator Name | Role | Phone | [...] + + | 08/09/ | Telephone | [facility] | Alfonso Wallace MD | Other | | 2020 | | PULMONOLOGY [address] | [address] | | | | | [address] | [place], [place] | | | | | [place], [place] | [address] | | | | | [address] | | | | | | [phone] | | | +--------+ + + + [...] [place] | | | | | | [address] | | | | | | | [...]
--- OUTSIDE RECORDS SUMMARY | ~2019-08-31 | XMS | Encounter Summary ---
Demographics + + + | Address | [address] | | | [place] [address] | + + + | Home Phone [...] #[address] | | | | | [address] | | + + + + + | Tanika Jean | ECON | Unknown | | + + + + + Care Team Providers + +------+ + | Care Program Director/Morning Show Host Name | Role | Phone | + +------+ + | Jose Angel Reina MD | PCP | | + +------+ + Reason for Visit +---------+ + | Reason | Comments | +---------+ + | Results | PFT performed at [facility] | +---------+ + Encounter Details +--------+ + + + + | Date | Type | Department | Care Team | Description | +--------+ + + + + | 10/21/ | Telephone | [facility] [place] | Claudia Michelle, | Results (PFT | | 2012 | | PULMONARY [address] | RN | performed at | | | | [place], | | Junior) | | | | [place] [address] | | | | | | [phone] | | | +--------+ + + + [...] [place] | | | | | | [address] | | | | | | | | +--------+ + + + + documented as of this encounter Visit Diagnoses Not on filedocumented in this encounter"
--- OUTSIDE RECORDS SUMMARY | ~2019-08-31 | XMS | Encounter Summary ---
Demographics + + + | Address | [address] | | | [place] [address] | + + + | Home Phone [...] #[address] | | | | | [address] | | + + + + + | Tanika Jean | ECON | Unknown | | + + + + + Care Team Providers + +------+ + | Care Lacquer Sizer Name | Role | Phone | + [...] | obstruction, not | | | | [place], | | elsewhere classified | | | | [place] [address] | | ([facility]) | | | | [phone] | | | +--------+ + + + [...] [place] | | | | | | [address] | | | | | | | | +--------+ + + + + documented as of this encounter Visit Diagnoses + + | Diagnosis | + + | Chronic airway obstruction, not elsewhere classified | + + documented in this encounter"
--- OUTSIDE RECORDS SUMMARY | ~2019-08-31 | XMS | Encounter Summary ---
Demographics + + + | Address | [address] | | | [place] [address] | + + + | Home Phone [...] #[place] | | | | | [address] | | + + + + + | Tanika Jean | ECON | Unknown | | + + + + + Care Team Providers + +------+ + | Care Upholstery Cleaner Name | Role | Phone | [...] + + | 07/06/ | Office | [facility] | Karlos Craig, | Neck pain on right | | 2013 | Visit | MEDICINE | [address] | side (Primary Dx); | | | | REHABILITATION [address] | [place] | Cervical strain, | | | | [address] | [address] | initial encounter; | | | | [place] | | Lumbar facet | | | | [address] | | arthropathy; | | | | [phone] | | Lumbalgia; Ataxia | +--------+---------+ + [...] to the clinic earlier. Follow up with [facility] regarding your ataxia. If your right shoulder pain gets worse, return to the clinic. Return to the clinic in 3 months, unless symptoms fail to improve or get worse.Electronical ly signed by Karlos Craig MD at 07/06/2013 1:55 PM PDT documented in this encounter Progress Notes Karlos Craig MD - 07/06/2013 1:55 PM PDTThis office note has been dictated. Job ID# [id number] signed by Karlos Craig MD at 07/06/2013 2:17 PM Arleen Ashby RN - 07/06/2013 1:07 PM PDTPatient states 5/10 pain to neck. Karlos Garcia MD - 07/06/2013 12:00 AM PDT PHYSICAL MEDICINE AND REHAB [address] [place] [address] FAX: [phone] OFFICE VISIT PHYSICAL MEDICINE REHABILITATION PROGRESS NOTE [...] with ataxia. He has a consult with [facility] Neurology Department, later this month [...] biceps, tricep s, wrist dorsiflexion, and hand channel layer. DATABASE: No new imaging or laboratory data [...] facet injections. He will followup w ith [facility] regarding his ataxia. In regards [...] worse. Greater than 30 minutes was spent uncq-am-hxor today with Mr. Aguilar, over half of which w as spent formulating and discussing his medical treatment plan. Thank you for allowing me to be involved in the care of your patient. If you have any quest ions regarding the care of Mr. Aguilar, please do not hesitate to call. Karlos Craig Jr, MD PURVI / PAP JOB #: [id number] cc: Peter Reina MD documented in this encounter Plan of Treatment +--------+ + + + + | Date | Type | Specialty | Care Team | Description | +--------+ + + + + | 11/16/ | Appointment | Radiology | Alfonso Wallace MD | | | 2019 | | | [address] | | | | | | [place], [place] | | | | | | [address] | | | | | | | [...]
--- OUTSIDE RECORDS SUMMARY | ~2019-08-31 | XMS | Encounter Summary ---
Demographics + + + | Address | [address] | | | [place] [address] | + + + | Home Phone [...] #[address] | | | | | [address] | | + + + + + | Tanika Jean | ECON | Unknown | | + + + + + Care Team Providers + +------+ + | Care Nib Inspector Name | Role | Phone | [...] + + | 07/06/ | Refill | [facility] | Karlos Craig, | Medication Refill | | 2013 | | MEDICINE | MD [address] | | | | | REHABILITATION [address] | [place] | | | | | [address] | [address] | | | | | [place] | | | | | | [address] | | | | | | [phone] | | | +--------+--------+ + + + [...]
--- OUTSIDE RECORDS SUMMARY | ~2019-08-31 | XMS | Encounter Summary ---
Demographics + + + | Address | [address] | | | [place] [address] | + + + | Home Phone [...] #[address] | | | | | [address] | | + + + + + | Tanika Jean | ECON | Unknown | | + + + + + Care Team Providers + +------+ + | Care Credit Risk Analyst Name | Role | Phone | [...] Frazier MD | | | | | [place], | | | | | | [place] [address] | | | | | | [phone] | | | +--------+ + + + [...] [place] | | | | | | [address] | | | | | | | [...] | bulin Ratio | | | [facility] | | | | | | [...] [address] | [place] | [phone] | | [facility] | | [address] | | | - LABORATORY [...] [address] | [place] | [phone] | | [facility] | | [address], [facility] | | | [...]
--- OUTSIDE RECORDS SUMMARY | ~2019-08-31 | XMS | Encounter Summary ---
Demographics + + + | Address | [address] | | | [place] [address] | + + + | Home Phone [...] #[place] | | | | | [address] | | + + + + + | Tanika Jean | ECON | Unknown | | + + + + + Care Team Providers + +------+ + | Care Risk Specialist Name | Role | Phone | [...] + + | 07/08/ | Office | [facility] | Damaso Gavin, | Hypoxia (Primary | | 2018 | Visit | PULMONARY [address] | [address] | Dx); Centrilobular | | | | [place], | [place] [address] | emphysema (HCC); | | | | [place] [address] | [phone] | Tobacco dependence | | | | [phone] | | due to cigarettes; | | [...] [place] | | | | | | [address] | | | | | | | [...]
--- OUTSIDE RECORDS SUMMARY | ~2019-08-31 | XMS | Encounter Summary ---
Demographics + + + | Address | [address] | | | [place] [address] | + + + | Home Phone [...] #[place] | | | | | [address] | | + + + + + | Tanika Jean | ECON | Unknown | | + + + + + Care Team Providers + +------+ + | Care Bead Builder Name | Role | Phone | [...] | RN | | | | | [place], | | | | | | [place] [address] | | | | | | [phone] | | | +--------+ + + + [...] [place] | | | | | | [address] | | | | | | | | +--------+ + + + + documented as of this encounter Visit Diagnoses Not on filedocumented in this encounter"
--- OUTSIDE RECORDS SUMMARY | ~2019-08-31 | XMS | Encounter Summary ---
Demographics + + + | Address | [address] | | | [place] [address] | + + + | Home Phone [...] #[address] | | | | | [address] | | + + + + + | Tanika Jean | ECON | Unknown | | + + + + + Care Team Providers + +------+ + | Care Fuselage Framer Name | Role | Phone | + [...] Frazier MD | | | | | [place], | | | | | | [place] [address] | | | | | | [phone] | | | +--------+--------+ + + + [...]
--- OUTSIDE RECORDS SUMMARY | ~2019-08-31 | XMS | Encounter Summary ---
Demographics + + + | Address | [address] | | | [place] [address] | + + + | Home Phone [...] #[place] | | | | | [address] | | + + + + + | Tanika Jean | ECON | Unknown | | + + + + + Care Team Providers + +------+ + | Care Gluer Machine Setup Operator Name | Role | Phone | [...] | | | | | | [place] [address] | | | | | | [phone] | | | +--------+--------+ + + + [...] | | | | | [place] | | | | | | [address] | | | | | | | [...]
--- OUTSIDE RECORDS SUMMARY | ~2019-08-31 | XMS | Encounter Summary ---
Demographics + + + | Address | [address] | | | [place] [address] | + + + | Home Phone [...] | Author | [facility] | | | and [place] | + + + | Organization | [facility] | | | and [place] | + + + | Address | Unknown | + + + | Phone | Unavailable | + + + Support + + + + + | Name | Relationship | Address | Phone | + + + + + | Palak Aguilar | ECON | #[place] | | | | | [address] | | + + + + + | Tanika Jean | ECON | Unknown | | + + + + + Care Team Providers + +------+ + | Care Partner Manager Name | Role | Phone | [...] | | | | | [address] [facility] | [place] [address] | | | | | [place] [address] | | | | | | [phone] | | | +--------+ + + + [...] | | | | | [facility] [facility] | | | | | | [address] | | | | | | | [...] for comparison only - no result from [facility]. | [facility] | + + + + +---------+ + + | Performing | Address | City/State/Zipcode | Phone Number | | Organization | | | | + +---------+ + + | [facility] | | | | + +---------+ + + documented in this encounter Visit Diagnoses Not on filedocumented in this encounter"
--- OUTSIDE RECORDS SUMMARY | ~2019-08-31 | XMS | Encounter Summary ---
Demographics + + + | Address | [address] | | | [place] [address] | + + + | Home Phone [...] | + + + + + | [address] | ECON | #[id number] | | | | | [address] | | + + + + + | Tanika Jean | ECON | Unknown | | + + + + + Care Team Providers + +------+ + | Care Agricultural Pilot Name | Role | Phone | + [...] | | | | | | [place] [address] | | | | | | [phone] | | | +--------+--------+ + + + [...] | | | | | [place] | | | | | | [address] | | | | | | | [...]
--- OUTSIDE RECORDS SUMMARY | ~2019-08-31 | XMS | Encounter Summary ---
Demographics + + + | Address | [address] | | | [place] [address] | + + + | Home Phone [...] + + + | Author | [facility] | + + + | Organization | [facility] | + + + | Address | Unknown | + + + | Phone | Unavailable | + + + Care Team Providers + +------+ + | Care Golf Sales Manager Name | Role | Phone | [...] at | | | | | | [facility] | | | | | | and Healing [address] | | | | | | [address] Mailcode: | | | | | | [facility] | | | | | | [facility] and He[facility], | | | | | | Building | | | | | | [address] [place], [place] | | | | | | [address] | | | | | | [phone] | | | +--------+ + + + [...]
--- OUTSIDE RECORDS SUMMARY | ~2019-08-31 | XMS | Encounter Summary ---
Demographics + + + | Address | [address] | | | [place] [address] | + + + | Home Phone [...] #[place] | | | | | [address] | | + + + + + | Tanika Jean | ECON | Unknown | | + + + + + Care Team Providers + +------+ + | Care Tree Deadener Name | Role | Phone | + [...] + + | 03/05/ | Telephone | [facility] | Chrissy, | Appointment | | 2015 | | MED CTR PULMONARY | Ling Frazier MD | | | | | FUNCTION [address] | | | | | | [place], | | | | | | [place] [address] | | | | | | [phone] | | | +--------+ + + + [...] [place] | | | | | | [address] | | | | | | | | +--------+ + + + + documented as of this encounter Visit Diagnoses Not on filedocumented in this encounter"
--- OUTSIDE RECORDS SUMMARY | ~2019-08-31 | XMS | Encounter Summary ---
Demographics + + + | Address | [address] | | | [place] [address] | + + + | Home Phone [...] #[place] | | | | | [address] | | + + + + + | Tanika Jean | ECON | Unknown | | + + + + + Care Team Providers + +------+ + | Care Pick Out Hand Name | Role | Phone [...] | | | | | | [place] [address] | | | | | | [phone] | | | +--------+--------+ + + + [...] [place] | | | | | | [address] | | | | | | | [...]
--- OUTSIDE RECORDS SUMMARY | ~2019-08-31 | XMS | Encounter Summary ---
Demographics + + + | Address | [address] | | | [place] [address] | + + + | Home Phone [...] #[place] | | | | | [address] | | + + + + + | Tanika Jean | ECON | Unknown | | + + + + + Care Team Providers + +------+ + | Care General Dentist Name | Role | Phone | + [...] [address] | | | | | | [place], [place] | | | | | | [address] | | | | | | [phone] | | | +--------+ + + + [...] [place] | | | | | | [id number] | | | | | | | | +--------+ + + + + documented as of this encounter Visit Diagnoses Not on filedocumented in this encounter
--- OUTSIDE RECORDS SUMMARY | ~2019-08-31 | XMS | Encounter Summary ---
Demographics + + + | Address | [address] | | | [place] [address] | + + + | Home Phone [...] #[address] | | | | | [address] | | + + + + + [...] | | | | | | [place] [address] | | | | | | [phone] | | | +--------+ + + + [...] | | | | | [place] | | | | | | [id number] | | | | | | | [...]
--- OUTSIDE RECORDS SUMMARY | ~2019-08-31 | XMS | Encounter Summary ---
Demographics + + + | Address | [address] | | | [place] [address] | + + + | Home Phone [...] #[address] | | | | | [address] | | + + + + + | Tanika Jean | ECON | Unknown | | + + + + + Care Team Providers + +------+ + | Care Orchardist Name | Role | Phone | + [...] | | | | | | [place] [address] | | | | | | | Phone: | | | | | | | [phone] | | | | | | | Fax: | | | | | | | [phone] | | +--------+ + + + + + Reason for Visit + + + | Reason | Comments | + + + | Follow-up | Review MRI results | + + + Encounter Details +--------+---------+ + + + | Date | Type | Department | Care Team | Description | +--------+---------+ + + + | 01/19/ | Office | [facility] | Roderick Williamson MD [address] | Gait abnormality | | 2012 | Visit | NEUROLOGY ALTO | [address] | (Primary Dx); | | | | [address] [facility], | [address], | Cerebellar ataxia | | | | [address] [place] | [place] [address] | ([facility]LY [facility]); Intention | | | | [place] [address] | [phone] | tremor | | | | [phone] | | | +--------+---------+ + + + [...] to be seen by ataxia specialist at [facility]. If you have any questions please [...] pper. - I would refer him to [facility] to see ataxia specialist for further [...] [place] | | | | | | [address] | | | | | | | [...] TK | | | | Vu Oroz[place], [place] | | MEDICAL | | | | [id number]: [id number] | | CENTER - | | | [...] + | [facility] | [address] | [place], [place] | [phone] | | [facility] | | [address] | | | - LABORATORY | | | | + + + + + | [facility] | [address] | [place], [place] | | | [facility] | | [address] | | | - LABORATORY [...] + | [facility] | [address] | [place] | [phone] | | [facility] | | [address] | | | - LABORATORY | | | | + + + + + | [facility] | [address] | [place], [place] | | | [facility] | | [id number] [place] [address] | | | - LABORATORY | | [...] | | | | | [place] [address] | | | | | | CLIA: [id number] | | | | + + + + + + + + | Specimen | + + | Blood specimen | | (specimen) | + + + + + + + | Performing | Address | City/State/Zipcode | Phone Number | | Organization | | | | + + + + + | [facility] | [address] | [place], [place] | [phone] | | [facility] | | [address] | | | - LABORATORY | | | | + + + + + | [facility] | [address] | [place], [place] | | | [facility] | | [address] [place] [address] | | | - LABORATORY | | [...] + | [facility] | [address] | [place] | [phone] | | [facility] | | [address] | | | - LABORATORY | | | | + + + + + | [facility] | [address] | [place] | | | [facility] | | [address] | | | - LABORATORY [...] + | [facility] | [address] | [place], [place] | [phone] | | [facility] | | [address] | | | - LABORATORY | | | | + + + + + | [facility] | [address] | [place], [place] | | | [facility] | | [address] [place] [address] | | | - LABORATORY | | [...] + | [facility] | [address] | [place], [place] | [phone] | | [facility] | | [address] | | | - LABORATORY | | | | + + + + + | [facility] | [address] | [place], [place] | | | [facility] | | [address], [facility] | | | - LABORATORY [...]
--- OUTSIDE RECORDS SUMMARY | ~2019-08-31 | XMS | Encounter Summary ---
Demographics + + + | Address | [address] | | | [place] [address] | + + + | Home Phone [...] #[address] | | | | | [address] | | + + + + + | Tanika Jean | ECON | Unknown | | + + + + + Care Team Providers + +------+ + | Care Affirmative Action Specialist Name | Role | Phone | + +------+ + | Jose Angel Reina MD | PCP | | + +------+ + Encounter Details +--------+ + + + + | Date | Type | Department | Care Team | Description | +--------+ + + + + | 04/20/ | Hospital | [facility] | Micah Del Cid | | | 2013 | Encounter | MED CTR XRAY [address] | [address] | | | | [place] | [place], [place] | | | | | [place] [address] | [address] | | | | | [phone] | | | +--------+ + + + [...] | | | | (HCC) | months [facility] | | | | | | | [...] | | | | | [place] | | | | | | [address] | | | | | | | [...] At | + + + | [facility] | [place] | | Department [address] [place], [place] [address] | [facility] | | [ rep [address]] [ rep [facility] | | st zip] Signed | - IMAGING | | | | | Patient Name: KEVIN DAUGHERTY SR | | | Physician: BANDAR : 1950 Age: 62 Sex: M Unit | | | #: [id number] Exam Date: 04/20/13 Location: | | | IM.INV Report #: [id number] Page: | | | %(RAD)RES..mtdd.print.filter("pg") of %(RAD) | | | RES..mtdd.print.filter("tpg") | | | | | | Accession Number: [id number] | | | PROCEDURE NOTE LUMBAR FACET [...] | | Transcribed Date/Time: 04/20/2013 17:21 Manager Respiratory: | | | <<Signature on File>> | | | Micah Anderson | | | MD Nehemias04/20/13 1805 <Electronically signed by Micah Anderson | | | Nehemias ARIAS> Micah Del Cid MD 04/20/13 6560 | | | Manager Respiratory: Numerousvenu Idacztbjlnilk52/16/14 6797 | | | | | + + + + + + + + | Performing | Address | City/State/Zipcode | Phone Number | | Organization | | | | + + + + + | [facility] | [address] | [place] | [phone] | | [facility] | | [address] | | | - IMAGING | | | | + + + + + documented in this encounter Visit Diagnoses Not on filedocumented in this encounter
--- OUTSIDE RECORDS SUMMARY | ~2019-08-31 | XMS | Encounter Summary ---
Demographics + + + | Address | [address] | | | [place] [address] | + + + | Home Phone [...] + | Author | [facility] | | | and [place] | + + + | Organization | [facility] | | | [place] | + + + | Address | Unknown | + + + | Phone | Unavailable | + + + Support + + + + + | Name | Relationship | Address | Phone | + + + + + | Palak Trejo Aguilar | ECON | #[place] | | | | | [address] | | + + + + + | Tanika Jean | ECON | Unknown | | + + + + + Care Team Providers + +------+ + | Care Back Wedger Name | Role | Phone | + [...] | due to | [place] | [place], [place] | | | | | methicillin | [place], [place] | [address] | | | | | susceptible | [address] | Phone: | | | | | Staphylococc | Phone: | [phone] | | | | | us aureus | [phone] | Fax: | | | | | (MSSA) ([facility]) | Fax: | [phone] | | | | | Procedures | [phone] | | | | | | CT [...] + | 08/16/ | Orders Only | [facility] | Alfonso Wallace MD | Pneumonia of right | | 2019 | | PULMONOLOGY [address] | [address] | upper lobe due to | | | | [address] | [place], [place] | methicillin | | | | [place], [place] | [address] | susceptible | | | | [address] | | Staphylococcus | | | | [phone] | | aureus (MSSA) (HCC) | | [...] [place] | | | | | | [address] | | | | | | | [...] | | | aureus (MSSA) ([facility]) | | + +---------+--------+ + + documented as of this encounter Visit Diagnoses + + | Diagnosis | + + | Pneumonia of right upper lobe due to methicillin susceptible Staphylococcus aureus | | (MSSA) ([facility]) - Primary | + + documented in this encounter"
--- OUTSIDE RECORDS SUMMARY | ~2019-08-31 | XMS | Encounter Summary ---
Demographics + + + | Address | [address] | | | [place] [address] | + + + | Home Phone [...] #[address] | | | | | [address] | | + + + + + | Tanika Jean | ECON | Unknown | | + + + + + Care Team Providers + +------+ + | Care Sliver Former Name | Role | Phone | + [...] + + | 03/05/ | Telephone | [facility] | Chrissy, | Appointment | | 2015 | | MED CTR PULMONARY | Ling Frazier MD | | | | | FUNCTION [address] | | | | | | [place], | | | | | | [place] [address] | | | | | | [phone] | | | +--------+ + + + [...] [place] | | | | | | [address] | | | | | | | | +--------+ + + + + documented as of this encounter Visit Diagnoses Not on filedocumented in this encounter"
--- OUTSIDE RECORDS SUMMARY | ~2019-08-31 | XMS | Encounter Summary ---
Demographics + + + | Address | [address] | | | [place] [address] | + + + | Home Phone [...] #[place] | | | | | [address] | | + + + + + | Tanika Jean | ECON | Unknown | | + + + + + Care Team Providers + +------+ + | Care Insulation Helper Name | Role | Phone | [...] + + | 08/16/ | Telephone | [facility] | Aidee Mitchell RN | Results (biopsy | | 2020 | | PULMONOLOGY [address] | | results and plan of | | | | [address] | | care instructions ) | | | | [place] | | | | | | [address] | | | | | | [phone] | | | +--------+ + + + [...] [place] | | | | | | [id number] | | | | | | | | +--------+ + + + + documented as of this encounter Visit Diagnoses Not on filedocumented in this encounter"
--- OUTSIDE RECORDS SUMMARY | ~2019-08-31 | XMS | Encounter Summary ---
Demographics + + + | Address | [address] | | | [place] [address] | + + + | Home Phone [...] #[address] | | | | | [address] | | + + + + + | Tanika Jean | ECON | Unknown | | + + + + + Care Team Providers + +------+ + | Care Clock Mechanic Name | Role | Phone | [...] | | | | History of | [address] | [address] | | | | | seizures | [place], | [place], | | | | | | [place] [address] | [place] [address] | | | | | | Phone: | Phone: | | | | | | [phone] | [phone] | | | | | | Fax: | Fax: | | | | | | [phone] | [phone] | +--------+ + + + + + [...] | | | | | Lumbalgia | [address] | | | | | | Tremor | [place], | | | | | | History of | [place] [address] | | | | | | seizures | Phone: | | | | | | | [phone] | | | | | | | Fax: | | | | | | | [phone] | | +--------+ + + + + [...] | weakness | [place], | [address] | | | | n | | [address] | [place], | | | | | | [address] | [place] [address] | | | | | | [place], | Phone: | | | | | | [place] [address] | [phone] | | | | | | | Fax: | | | | | | | [phone] | +--------+ + + + + + Encounter Details +--------+---------+ + + + | Date | Type | Department | Care Team | Description | +--------+---------+ + + + | 12/08/ | Office | [facility] | Karlos Craig, | Unsteady gait | | 2012 | Visit | MEDICINE | [address] | (Primary Dx); | | | | REHABILITATION [address] | [place] | Lumbalgia; Tremor; | | | | [address] | [id number] | History of seizures; | | | | [place], [place] | | COPD (chronic | | | | [address] | | obstructive | | | | [phone] | | pulmonary disease) | | | | | | ([facility]); Tobacco | | | | [...] 12/08/2012 3:55 PM PDTMy office will obtain asbestos microscopist ies of your back x-rays for review. [...] office note has been dictated. Job ID# [id number] signed by Karlos Craig MD at 12/08/2012 [...] 12:00 AM PDT [facility]ICINE AND REHAB [address] [place] [address] FAX: [phone] OFFICE VISIT PHYSICAL MEDICINE REHABILITATION CONSULT CONSULT [...] demonstrated significant intention tremor and ataxia with lmmmvm-xy-zlrn te sting in both upper extremities. He demonstrated significant discoordination in an effort t o try cqys-yr-laqr slide bilaterally. His gait demonstrated short, shuffling [...] is 5/5 biceps, triceps, wrist dorsiflexion, hand deputy sheriff generalist/bailiff strength and f sammie abduction strength. In the lower extremities, there is 5/5 hip flexion, knee flexion, knee extension, ankle dorsiflexion, ankle plantar flexion and extensor hallucis longus str ength. DATABASE: Lumbar x-rays were completed today at [facility]. These x-rays are not available for my [...] ondylolisthesis. Greater than an hour was spent udwi-bk-usrj today with Mr. Aguilar, over half of which was spent formulating and discussing his medical treatment plan. Thank you for allowing me to be involved in the care of your patient. If you have any quest ions regarding the care of Mr. Aguilar, please do not hesitate to call. Karlos Craig Jr, MD GEM / PAP JOB #: [id number] cc: MD Peter Hatfield MD documented in [...] [place] | | | | | | [address] | | | | | | | [...]
--- OUTSIDE RECORDS SUMMARY | ~2019-08-31 | XMS | Encounter Summary ---
Demographics + + + | Address | [address] | | | [place] [address] | + + + | Home Phone | | + + + | Preferred Language | Unknown | + + + | Marital Status | Single | + + + | Nondenominational Affiliation | Unknown | + + + | Race | Unknown | + + + | Ethnic Group | Other Race | + + + Author + + + | Author | [facility] | + + + | Organization | [facility] | + + + | Address | Unknown | + + + | Phone | Unavailable | + + + Care Team Providers + +------+ + | Care Rn Iv Therapy Name | Role | Phone | + [...] | | | [address] | [address] [employer] | | | | | | Petroleum | Research | | | | | | Research | [place], [facility] | | | | | | [place] [facility] | Floor | | | | | | Floor | [place], [place] | | | | | | [place], [place] | [address] | | | | | | [address] | Phone: | | | | | | Phone: | [phone] | | | | | | [phone] | Fax: | | | | | | Fax: | [phone] | | | | | | [phone] | | +--------+--------+ + + + + Encounter Details +--------+ + + + + | Date | Type | Department | Care Team | Description | +--------+ + + + + | 02/03/ | Outside | Neurophysiology | Faisal Kebede | | | 2010 | Referral | EEG at [facility] [address] | MD [place] | | | | Order | [facility] | [facility] | | | | | [facility] | [address] [facility] | | | | | [place], [address] Floor | [place], [place] | | | | | [place], [place] | [address] | | | | | [address] | [phone] | | | | | [phone] | | | +--------+ + + + [...] 01/30/2011 Place | | | of Service: [facility] Department: EEG [facility] - [id number] | | | ROUTINE EEG this is [...]
--- OUTSIDE RECORDS SUMMARY | ~2019-08-31 | XMS | Encounter Summary ---
Demographics + + + | Address | [address] | | | [place] [address] | + + + | Home Phone [...] #[place] | | | | | [address] | | + + + + + | Tanika Jean | ECON | Unknown | | + + + + + Care Team Providers + +------+ + | Care Records Officer Name | Role | Phone | [...] due to emphysema | | | | [place], | | ([facility]) | | | | [place] [address] | | | | | | [phone] | | | +--------+ + + + [...] | | | | | [place], [place] | | | | | | [address] | | | | | | | | +--------+ + + + + documented as of this encounter Visit Diagnoses + + | Diagnosis | + + | 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
--- OUTSIDE RECORDS SUMMARY | ~2019-08-31 | XMS | Encounter Summary ---
Demographics + + + | Address | [address] | | | [place] [address] | + + + | Home Phone [...] #[place] | | | | | [address] | | + + + + + | Tanika Jean | ECON | Unknown | | + + + + + Care Team Providers + +------+ + | Care Insole Tape Stitcher Uco Name | Role | Phone | + [...] | RN | | | | | [place], | | | | | | [place] [address] | | | | | | [phone] | | | +--------+ + + + [...] [place] | | | | | | [address] | | | | | | | | +--------+ + + + + documented as of this encounter Visit Diagnoses Not on filedocumented in this encounter"
--- OUTSIDE RECORDS SUMMARY | ~2019-08-31 | XMS | Encounter Summary ---
Demographics + + + | Address | [address] | | | [place] [address] | + + + | Home Phone [...] #[place] | | | | | [address] | | + + + + + | Tanika Jean | ECON | Unknown | | + + + + + Care Team Providers + +------+ + | Care Human Geography Instructor Name | Role | Phone | [...] Exam | MED CTR EXTERNAL | MD [address] | | | | | IMAGING [address] | [place]jo | | | | | [address] [facility] | [place] [address] | | | | | [place] [address] | | | | | | [phone] | | | +--------+ + + + [...] [place] | | | | | | [address] | | | | | | | [...] for comparison only - no result from [place]. | [facility] | + + + + +---------+ + + | Performing | Address | City/State/Zipcode | Phone Number | | Organization | | | | + +---------+ + + | [facility] | | | | + +---------+ + + documented in this encounter Visit Diagnoses Not on filedocumented in this encounter"
--- OUTSIDE RECORDS SUMMARY | ~2019-08-31 | XMS | Encounter Summary ---
Demographics + + + | Address | [address] | | | [place] [address] | + + + | Home Phone | | + + + | Preferred Language | Unknown | + + + | Marital Status | | + + + | Pentecostalism Affiliation | 1061 | + + + | Race | Unknown | + + + | Ethnic Group | Unknown | + + + Author + + + | Author | [facility] | | | and [place] | + + + | Organization | [facility] | | | and [place] | + + + | Address | Unknown | + + + | Phone | Unavailable | + + + Support + + + + + | Name | Relationship | Address | Phone | + + + + + | Palak Aguilar | ECON | [address] | | | | | [address] | | + + + + + | Tanika Jean | ECON | Unknown | | + + + + + Care Team Providers + +------+ + | Care Schedule Announcer Name | Role | Phone | + [...] + + | 05/23/ | Telephone | [facility] | Karlos Craig, | Other | | 2014 | | PHYSIATRY [address] | [address] | | | | | [address] | [place], [place] | | | | | [place], [place] | [address] | | | | | [address] | | | | | | [phone] | | | +--------+ + + + [...] | 2019 | | | [address] | | | | | | [place] | | | | | | [address] | | | | | | | | +--------+ + + + + documented as of this encounter Visit Diagnoses Not on filedocumented in this encounter"
--- OUTSIDE RECORDS SUMMARY | ~2019-08-31 | XMS | Encounter Summary ---
Demographics + + + | Address | [address] | | | [place] [address] | + + + | Home Phone [...] #[address] | | | | | [address] | | + + + + + | Tanika Jean | ECON | Unknown | | + + + + + Care Team Providers + +------+ + | Care Toe Sewer Name | Role | Phone | [...] + + | 12/20/ | Office | [facility] | Karlos Craig, | Right shoulder pain | | 2013 | Visit | PHYSIATRY [address] | [address] | (Primary Dx); | | | | [address] | [place] | Rotator cuff | | | | [place] | [address] | tendonitis, right; | | | | [address] | | Lumbalgia; Facet | | | | [phone] | | arthropathy, lumbar; | | | [...] office note has been dictated. Job ID# [id number] signed by Karlos Craig MD at 12/20/2013 12:24 PM Arleen Ashby RN - 12/20/2013 11:35 AM PDTPatient states intermittent pain to right shoulder, no pain a t this time. Patient states improvement to right shoulder since having injection. Electronic ally signed by Arleen Kern RN at 12/20/2013 12:24 PM Karlos Garcia MD - 4 12:00 AM PDT PHYSICAL MEDICINE AND REHAB [address] [place] [address] FAX: [phone] OFFICE VISIT PHYSICAL MEDICINE REHABILITATION PROGRESS NOTE [...] Greater than 25 yumiko ellen was spent pblr-mp-evsi today with Mr. Aguilar, over half of which was spent formulating and discussing his medical treatment plan. Karlos Craig Jr, MD PURVI / RENEE JOB #: [id number] cc: Peter Reina MD documented in this [...] [place] | | | | | | [address] | | | | | | | [...]
--- OUTSIDE RECORDS SUMMARY | ~2019-08-31 | XMS | Encounter Summary ---
Demographics + + + | Address | [address] | | | [place] [address] | + + + | Home Phone [...] #[place] | | | | | [address] | | + + + + + | Tanika Jean | ECON | Unknown | | + + + + + Care Team Providers + +------+ + | Care Fruit Harvester Machine Operator Name | Role | Phone [...] + + | 08/28/ | Telephone | [facility] | Aidee Mitchell RN | Results | | 2020 | | PULMONOLOGY [address] | | | | | | [address] | | | | | | [place] | | | | | | [address] | | | | | | [phone] | | | +--------+ + + + [...] [place] | | | | | | [address] | | | | | | | | +--------+ + + + + documented as of this encounter Visit Diagnoses Not on filedocumented in this encounter"
--- OUTSIDE RECORDS SUMMARY | ~2019-08-31 | XMS | Encounter Summary ---
Demographics + + + | Address | [address] | | | [place] [address] | + + + | Home Phone [...] | Author | [facility] | | | and [place] | + + + | Organization | [facility] | | | and [place] | + + + | Address | Unknown | + + + | Phone | Unavailable | + + + Support + + + + + | Name | Relationship | Address | Phone | + + + + + | Palak Aguilar | ECON | [address] | | | | | [address] | | + + + + + | Tanika Jean | ECON | Unknown | | + + + + + Care Team Providers + +------+ + | Care Taxation Accountant Name | Role | Phone | [...] | obstruction, not | | | | [place], | | elsewhere classified | | | | [place] [address] | | ([facility]) | | | | [phone] | | | +--------+ + + + [...] [place] | | | | | | [address] | | | | | | | | +--------+ + + + + documented as of this encounter Visit Diagnoses + + | Diagnosis | + + | Chronic airway obstruction, not elsewhere classified | + + documented in this encounter"
--- OUTSIDE RECORDS SUMMARY | ~2019-08-31 | XMS | Clinical Summary ---
Demographics + + + | Address | [address] | | | [place] [address] | + + + | Home Phone [...] Team Providers + +------+ + | Care Forging Press Lever Tender Name | Role | Phone | + +------+ + | Jose Angel Reina MD | PCP | | + +------+ + Source Comments NIESHA is fully live on both EpicCare Ambulatory and EpicCare InPatient.[facility] Allergies Not on File Medications + + [...]
--- OUTSIDE RECORDS SUMMARY | ~2019-08-31 | XMS | Encounter Summary ---
Demographics + + + | Address | [address] | | | [place] [address] | + + + | Home Phone [...] #[address] | | | | | [address] | | + + + + + | Tanika Jean | ECON | Unknown | | + + + + + Care Team Providers + +------+ + | Care Adjuster Name | Role | Phone | + [...] | Karlos Gatica MD | [address] | | | | | shoulder | [address] | [place], | | | | | pain | [address] | [place] | | | | | Rotator cuff | [place], | [address] | | | | | tendonitis, | [place] [address] | Phone: | | | | | right | Phone: | [phone] | | | | | Rotator cuff | [phone] | Fax: | | | | | tear | Fax: | [phone] | | | | | arthropathy | [phone] | | | | | | of [...] | shoulder | [address] | | | | n | pain | [address] | [place], | | | | | Rotator cuff | [place], | [place] [address] | | | | | tendonitis, | [place] [address] | Phone: | | | | | right | Phone: | [phone] | | | | | | [phone] | Fax: | | | | | | Fax: | [phone] | | | | | | [phone] | | +--------+ + + + + + Reason for Visit + + + | Reason | Comments | + + + | Shoulder Pain | | + + + Encounter Details +--------+---------+ + + + | Date | Type | Department | Care Team | Description | +--------+---------+ + + + | 03/22/ | Office | [facility] | Karlos Craig, | Right shoulder pain | | 2013 | Visit | PHYSIATRY [address] | MD [address] | (Primary Dx); | | | | [address] | [place] | Rotator cuff | | | | [place] | [address] | tendonitis, right; | | | | [address] | | Rotator cuff tear | | | | [phone] | | arthropathy of right | | [...] office note has been dictated. Job ID# [id number] Referring Physician: Jose Angel Reina * Diagnosis: [...] attention as well as inform my clinic. [facility], Karlos Gatica MD - 03/22/2014 12:00 AM [facility] PHYSICAL MEDICINE AND REHAB [address] [place] [address] FAX: [phone] OFFICE VISIT PHYSICAL MEDICINE REHABILITATION PROGRESS NOTE [...] Jr, MD PURVI / PAP JOB #: [id number] cc: Peter Reina MD documented in this [...] [place] | | | | | | [address] | | | | | | | [...] + | MISCELLANEOUS LAB | | | [phone] | + +---------+ + + | MISCELANIOUS LAB | | | [phone] | + +---------+ + + [place] Shoulder [...] + | MISCELLANEOUS LAB | | | [phone] | + +---------+ + + | MISCELANIOUS LAB | | | [phone] | + +---------+ + + documented in [...] | | ) | | ONCE, [facility] 03/22/14 at 1400, For 1 | | | | | | | dose, Not for IV use., | | | | | | + + + +-------+------+ + +---+---+ | | | +---+---+ documented in this encounter
--- OUTSIDE RECORDS SUMMARY | ~2019-08-31 | XMS | Encounter Summary ---
Demographics + + + | Address | [address] | | | [place] [address] | + + + | Home Phone [...] [address] | | | | | [address] | | + + + + + | Tanika Jean | ECON | Unknown | | + + + + + Care Team Providers + +------+ + | Care Patrol Driver Name | Role | Phone | [...] | | | | | | [place] [address] | | | | | | [phone] | | | +--------+--------+ + + + [...] | | | | | [place] | | | | | | [address] | | | | | | | [...]
--- OUTSIDE RECORDS SUMMARY | ~2019-08-31 | XMS | Encounter Summary ---
Demographics + + + | Address | [address] | | | [place] [address] | + + + | Home Phone [...] #[address] | | | | | [address] | | + + + + + [...] Frazier MD | | | | | [place], | | | | | | [place] [address] | | | | | | [phone] | | | +--------+--------+ + + + [...] [place] | | | | | | [address] | | | | | | | | +--------+ + + + + documented as of this encounter Visit Diagnoses Not on filedocumented in this encounter"
--- OUTSIDE RECORDS SUMMARY | ~2019-08-31 | XMS | Encounter Summary ---
Demographics + + + | Address | [address] | | | [place] [address] | + + + | Home Phone [...] #[address] | | | | | [address] | | + + + + + | Tanika Jean | ECON | Unknown | | + + + + + Care Team Providers + +------+ + | Care Wheel Worker Name | Role | Phone | [...] + + | 06/15/ | Office | [facility] | Offenstein, | COPD (chronic | | 2013 | Visit | PULMONARY [address] | Ling Frazier MD | obstructive | | | | [place], | | pulmonary disease) | | | | [place] [address] | | (HCC) (Primary Dx); | | | | [phone] | | Periodic limb | | | [...] Ling Lowe MD - 06/15/2013 2:58 PM [id number] is a free service to help you [...] is available in both En glish and Estonian with translation and TTY services. It is [...] [facility], and so everything has to be returned and ordered elsewhere. He can go though [facility] or [facility] Medic [facility]. He is currently on a regimen of Daliresp, Spiriva and Advair. Currently he is using his res cue inhaler, ProAir, 1 times a day. He is using his nebulizer, albuterol, 3 times a day. Grant rmoero returns today for routine follow up. Currently [...] is currently on 3 LPM at [facility]. He reports good compliance. He [...] Breath. Dx: 496 RINA: 99 months [employer] [facility] 360 vial 11 aspirin 325 mg tablet [...] palpitations, syncope, and peripheral edema. Seen at [facility] one night for chest pain 2-3 [...] again. I reordered the albuterol nebulizers through [facility], as he is switching home health companies. [...] Duonebs, start albuterol nebulizers. Order sent to [facility]. 2.Continue Advair, Spiriva and Daliresp. 3.Continue ropinirole. [...] made to ensure accuracy; however, inadvertent computerized software security architect errors may be pre sent. Electronically signed by: Lnig Lowe MD 06/15/2013 14:49 documented in t [...] [place] | | | | | | [id number] | | | | | | | [...] | 06/15/2014 | | | | | ([facility]) Nocturnal | | | | | | hypoxemia | | + + +--------+ + + documented as of this encounter Visit Diagnoses + + | Diagnosis | + + | COPD (chronic obstructive pulmonary disease) ([facility]) - Primary Chronic airway | | obstruction, not elsewhere classified | + + | Periodic limb movement disorder | + + | Nocturnal hypoxemia Hypoxemia | + + | Tobacco abuse Tobacco use disorder | + + documented in this encounter
--- OUTSIDE RECORDS SUMMARY | ~2019-08-31 | XMS | Encounter Summary ---
Demographics + + + | Address | [address] | | | [place] [address] | + + + | Home Phone [...] #[address] | | | | | [address] | | + + + + + | Tanika Jean | ECON | Unknown | | + + + + + Care Team Providers + +------+ + | Care Therapeutic Mentor Name | Role | Phone | + [...] + + | 06/14/ | Office | [facility] [place] | Chrissy, | Need for vaccination | | 2014 | Visit | PULMONARY [address] | Ling Frazier MD | with 13-polyvalent | | | | [place], | | pneumococcal | | | | [place] [address] | | conjugate vaccine | | | | [phone] | | (Primary Dx); COPD | | | | | | (chronic obstructive | | | | | | pulmonary disease); | | | | | | Nocturnal hypoxemia | | | | | | due to emphysema | | | | | | ([facility]); Periodic limb | | | | [...] Ling Lowe MD - 06/14/2014 1:24 PM [id number] is a free service to help you [...] is available in both En glish and Sami with translation and TTY services. It is [...] or a bout 1 lap around the [employer]. He is doing physical therapy, but he [...] care services. He reports good compliance. He is using [...] tablet Take 81 mg by mouth Daily. jasfdqz-ohunttyqekedz-dcbrirha (HEADACHE RELIEF) 250-250-65 MG per tablet Take [...] made to ensure accuracy; however, inadvertent computerized scientific programmer analyst errors may be pre sent. documented [...] [place] | | | | | | [id number] | | | | | | | [...]
--- OUTSIDE RECORDS SUMMARY | ~2019-08-31 | XMS | Encounter Summary ---
Demographics + + + | Address | [address] | | | [place] [address] | + + + | Home Phone [...] Author | [facility] | | | and [place] | + + + | Organization | [facility] | | | and [place] | + + + | Address | Unknown | + + + | Phone | Unavailable | + + + Support + + + + + | Name | Relationship | Address | Phone | + + + + + | Palak Aguilar | ECON | [address] | | | | | [address] | | + + + + + | Tanika Jean | ECON | Unknown | | + + + + + Care Team Providers + +------+ + | Care Box Printing Machine Operator Name | Role | Phone [...] | | | | | [facility] | [place] [address] | | | | | [place] [address] | | | | | | [phone] | | | +--------+ + + + [...] [place] | | | | | | [address] | | | | | | | [...] for comparison only - no result from [place]. | [facility] | + + + + +---------+ + + | Performing | Address | City/State/Zipcode | Phone Number | | Organization | | | | + +---------+ + + | [facility] | | | | + +---------+ + + documented in this encounter Visit Diagnoses Not on filedocumented in this encounter"
--- OUTSIDE RECORDS SUMMARY | ~2019-08-31 | XMS | Encounter Summary ---
Demographics + + + | Address | [address] | | | [place] [address] | + + + | Home Phone [...] [place] | | | | | [address] | | + + + + + | Tanika Jean | ECON | Unknown | | + + + + + Care Team Providers + +------+ + | Care Resident Care Supervisor Name | Role | Phone [...] | | | | | | [place] [address] | | | | | | [phone] | | | +--------+--------+ + + + [...] | | | | | [place] | | | | | | [address] | | | | | | | [...]
--- OUTSIDE RECORDS SUMMARY | ~2019-08-31 | XMS | Encounter Summary ---
Demographics + + + | Address | [address] | | | [place] [address] | + + + | Home Phone [...] [place] | | | | | [address] | | + + + + + | Tanika Jean | ECON | Unknown | | + + + + + Care Team Providers + +------+ + | Care Showplace Manager Name | Role | Phone | [...] to | | 2020 | Support | [facility] | SANJU [address] | SARS-associated | | | | [address] | [address] | coronavirus (Primary | | | | [address] [place] | [place] | Dx) | | | | [address] | [address] | | | | | [phone] | [phone] | | | | | | | [...] in this encounter Progress Notes Hardy Benito, Gate Tender - 08/14/2019 5:15 PM PDTPatient presents to [...] their Surgeon's office for further instructions. [facility]ed [facility] Plan of Treatment +--------+ + + + + | Date | Type | Specialty | Care Team | Description | +--------+ + + + + | 11/16/ | Appointment | Radiology | Alfonso Wallace MD | | | 2019 | | | [address] | | | | | | [place] | | | | | | [address] | | | | | | | [...]
--- OUTSIDE RECORDS SUMMARY | ~2019-08-31 | XMS | Encounter Summary ---
Demographics + + + | Address | [address] | | | [place] [address] | + + + | Home Phone [...] #[address] | | | | | [address] | | + + + + + | Tanika Jean | ECON | Unknown | | + + + + + Care Team Providers + +------+ + | Care Information Security Consultant Name | Role | Phone | + +------+ + | Jose Angel Reina MD | PCP | | + +------+ + Encounter Details +--------+ + + + + | Date | Type | Department | Care Team | Description | +--------+ + + + + | 04/20/ | Hospital | [facility] | Karlos Craig, | Right shoulder pain; | | 2014 | Encounter | MED CTR XRAY [address] | MD [address] | Rotator cuff | | | | [place] | [place] | tendonitis, right; | | | | [place] [address] | [address] | Rotator cuff tear | | | | [phone] | | arthropathy of right | | [...] | | | | | ([facility]) | months | | | | | [...] [place] | | | | | | [address] | | | | | | | [...] for MRI or CT (04/20/2014 10:09 AM [facility]) + + | Specimen | + + [...] + | MISCELLANEOUS LAB | | | [phone] | + +---------+ + + | MISCELANIOUS LAB | | | [phone] | + +---------+ + + documented in [...]
--- OUTSIDE RECORDS SUMMARY | 2019-08-31 21:28 | XMS ---
PreManage Notification: KEVIN DAUGHERTY Security Clinical Informatics Director Events No recent Security Events currently on file CRITERIA MET - Group Notification - [facility] - Has Care Guidelines CARE PROVIDERS DONNIE, [facility] 01/25/2018-Current [facility] [employer] PHONE: [phone] oTpher has no Care Guidelines for this patient. Care History Medical/Surgical 02/27/2019 [facility] I called Serafin and made the recommendation for triple therapy inhaler. This change will put him on max therapy for his COPD. He also has a follow up on the with Doctor Donnie. 06/21/2018 [facility] - PER DISCUSSION WITH [facility]-PULMONARY REHAB AT [facility]. PATIENT IS NON COMPLIANT WITH THE PROGRAM. - MULTIPLE ATTEMPTS OF EDUCATION HAS BEEN PROVIDED AND OTHER RESOURCES SUCH CONNEXIONS REFERRAL FOR PATIENT HAS BEEN MADE. - PATIENT WILL BE DISCHARGED FROM PULMONARY REHAB. 03/01/2018 [facility] - PATIENT HAS WORKED WITH [facility] -PULMONARY REHAB 2 TIMES NOW AND HAS GONE THROUGH THE COMPLETE PROGRAM BOTH TIMES. - PATIENT IS NOW WORKING WITH NIDIA -RESPIRATORY THERAPIST AT [facility]. - PLEASE CONTACT NIDIA [phone] IF PATIENT IS SEEN IN THE ED DUE TO COPD/ SOB SYMPTOMS. [facility] CAN HELP WORK WITH PCP TO MAKE MEDICATION CHANGES/ ADJUSTMENTS. Social 03/09/2017 [facility] PATIENT RECEIVES FOOD STAMPS THROUGH [employer] [facility]. VISIT COUNT (12 MO.) [address] [facility] TOTAL 4 NOTE: Visits indicate total known visits. ED/UCC VISIT TRACKING (12 MO.) 08/31/2019 21:25 [facility] TYPE: Emergency COMPLAINT: - ABD PAIN 06/23/2019 18:48 [facility] TYPE: Emergency COMPLAINT: - SORE THROAT,BODY ACHES DIAGNOSES: - Type 2 diabetes mellitus without complications - Shortness of breath - Nicotine dependence, cigarettes, uncomplicated - Nicotine dependence, unspecified, uncomplicated - Other prison (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 - Chronic obstructive pulmonary disease with (acute) exacerbati - Essential (primary) hypertension 02/26/2019 01:08 [facility] TYPE: Emergency COMPLAINT: - DIFFICULTY BREATHING DIAGNOSES: - Chronic obstructive pulmonary disease with (acute) exacerbati - Shortness of breath - Other prison (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 - Allergy status to other drugs, medicaments and biological sub - Nicotine dependence, unspecified, uncomplicated - Pneumonia, unspecified organism - Allergy status to other antibiotic agents status - Type 2 diabetes mellitus without complications - Essential (primary) hypertension - long-term (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 of oral hypoglycemic drugs - long-term (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 10/11/2018 11:43 [facility] TYPE: Emergency COMPLAINT: - NVD INPATIENT VISIT TRACKING (12 MO.) 10/11/2018 11:44 [facility] TYPE: Observation COMPLAINT: - VIRAL DEHYDRATION CIASTROENTERITIS DIAGNOSES: - intermediate designer (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 of systemic steroids - Other intermediate designer (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 - long-term (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 of inhaled steroids - Dehydration - Epilepsy, unspecified, not intractable, without status epilep - intermediate designer (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 of oral hypoglycemic drugs - Vomiting, unspecified - Chronic respiratory failure with hypoxia - Viral intestinal infection, unspecified - Type 2 diabetes mellitus without complications - Allergy status to other drugs, medicaments and biological sub - Restless legs syndrome - Nicotine dependence, cigarettes, uncomplicated - intermediate designer (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 - Dependence on supplemental oxygen - Essential (primary) hypertension - Allergy status to other antibiotic agents status - Emphysema, unspecified [email or web address]
[2019-08-31] MEDS ORDERED: VITAMIN D21250 MCG PO (21:41)
[2019-08-31] MEDS ORDERED: GLIPIZIDE ER5 MG PO (21:41)
[2019-08-31] MEDS ORDERED: SPIRIVA18 MCG INH (21:42)
[2019-08-31] MEDS ORDERED: JANUMET XR 50-1 EAC1 PO (21:42)
== END 2019-09-01 00:27 | disposition home or self-care (01) ==
LOC: ED 21:24
DX: R10.84 Generalized abdominal pain (principal); J44.9 Chronic obstructive pulmonary disease, unspecified; E11.9 Type 2 diabetes mellitus without complications; I10 Essential (primary) hypertension; F17.200 Nicotine dependence, unspecified, uncomplicated; Z99.81 Dependence on supplemental oxygen; Z88.1 Allergy status to other antibiotic agents; Z88.8 Allergy status to other drugs, medicaments and biological substances; Z79.899 Other long term (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; Z79.84 Long term (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 of oral hypoglycemic drugs; Z79.82 Long term (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
CPT/HCPCS: 74177; 80053; 81001; 83690; 85025; 96375; 99284-25; J1170; J2405; J7040; Q9967

== ENCOUNTER 2020-01-14 22:13 | Emergency (ER) | payer MEDICARE ==
[~2020-01-14] VITALS: Ht 175.3 cm; Wt 101.6 kg
--- OUTSIDE RECORDS SUMMARY | ~2020-01-14 | XMS | Encounter Summary ---
Demographics + + + | Address | [address] | | | [place] [address] | + + + | Home Phone | | + + + | Preferred Language | Unknown | + + + | Marital Status | | + + + | Buddhism Affiliation | 1061 | + + + | Race | White | + + + | Ethnic Group | Not or | + + + Author + + + | Author | [facility] | | | and [place] | + + + | Organization | [facility] | | | and [place] | + + + | Address | Unknown | + + + | Phone | Unavailable | + + + Support + + + + + | Name | Relationship | Address | Phone | + + + + + | Palak Aguilar | ECON | [address] | | | | | [address] | | + + + + + | Tanika Jean | ECON | Unknown | | + + + + + Care Team Providers + +------+ + | Care Automotive Tire Technician Name | Role | Phone | + +------+ + | Jose Angel Reina MD | PCP | | + +------+ + Reason for Visit +---------+--------+ + | Reason | Onset | Comments | | | Date | | +---------+--------+ + | Results | 10/21/ | PFT performed at [facility] | | | 2012 | | +---------+--------+ + Encounter Details +--------+ + + + + | Date | Type | Department | Care Team | Description | +--------+ + + + + | 10/21/ | Telephone | [facility] [place] | Claudia Michelle, | Results (PFT | | 2012 | | PULMONARY [address] | RN | performed at | | | | [place], | | [place]) | | | | [place] [address] | | | | | | [phone] | | | +--------+ + + + [...] on file | | + + + documented as of this encounter Miscellaneous Notes Telephone Encounter - Claudia Michelle RN - 10/21/2012 10:11 AM PDTJohn returned my call. Advised per Dr Lowe that his PFT dated 10/12/12 performed at [facility] look s pretty good. Okay per Nazario. 11 :14 AM PDTdocumented in this encounter Plan of Treatment +--------+---------+ + + + | Date | Type | Specialty | Care Team | Description | +--------+---------+ + + + | 01/28/ | Office | Infectious Diseases | Sana Dawson | | | 2019 | Visit | | Jazmin Stringer MD | | | | | | [address] | | | | | | [place] [address] | | | | | | [phone] | | | | | | | | +--------+---------+ + + + | 04/19/ | Office | Pulmonology | lAfonso Wallace MD | | | 2020 | Visit | | [address] | | | | | | [place] | | | | | | [phone] | | | | | | | | +--------+---------+ + + + documented as of this encounter Visit Diagnoses Not on filedocumented in this encounter"
--- OUTSIDE RECORDS SUMMARY | ~2020-01-14 | XMS | Encounter Summary ---
Demographics + + + | Address | [address] | | | [place] [address] | + + + | Home Phone | | + + + | Preferred Language | Unknown | + + + | Marital Status | | + + + | Jewish Affiliation | 1061 | + + + | Race | White | + + + | Ethnic Group | Not or | + + + Author + + + | Author | [facility] | | | and [place] | + + + | Organization | [facility] | | | and [place] | + + + | Address | Unknown | + + + | Phone | Unavailable | + + + Support + + + + + | Name | Relationship | Address | Phone | + + + + + | Palak Aguilar | ECON | [id number] | | | | | [address] | | + + + + + | Tanika Jean | ECON | Unknown | | + + + + + Care Team Providers + +------+ + | Care Home Furnishings Sales Representative Name | Role | Phone | + +------+ + | Nuzhat Orantes MD | PCP | | + +------+ + Reason for Visit +--------+--------+ + | Reason | Onset | Comments | | | Date | | +--------+--------+ + | Other | 08/09/ | | | | 2019 | | +--------+--------+ + Encounter Details +--------+ + + + + | Date | Type | Department | Care Team | Description | +--------+ + + + + | 08/09/ | Telephone | [facility] | Alfonso Wallace MD | Other | | 2019 | | PULMONOLOGY [address] | | | | | [address] | [place], [place] | | | | | [place], [place] | [address] | | | | | [address] | | | | | | [phone] | | | +--------+ + + + [...] this encounter Miscellaneous Notes Telephone Encounter - Conchis Wright - 08/10/2019 12:26 PM Anu, is calling fabrizio Marcum and would like a call back. Additional Call Details: Requesting call regarding missed call from provider. Unsure what the call was for. If this is a symptom based call, was patient offered triage? Not Applicable If this is a symptom based call and you were unable to immediately transfer the call to a jarred herrera complex director was caller made aware that if at any time he feels it is an emergency they alexandru uld call 911 or go to the nearest emergency room? not applicable documented in this encounter Plan of Treatment +--------+---------+ + + + | Date | Type | Specialty | Care Team | Description | +--------+---------+ + + + | 10/26/ | Office | Infectious Diseases | [facility] | | | 2019 | Visit | | Jazmin Stringer MD | | | | | | [address] | | | | | | [facility] [address] | | | | | | [phone] | | | | | | | | +--------+---------+ + + + | 04/19/ | Office | Pulmonology | Alfonso Wallace MD | | | 2020 | Visit | | [address] | | | | | | [place] | | | | | | [address] | | | | | | | | +--------+---------+ + + + documented as of this encounter Visit Diagnoses Not on filedocumented in this encounter Additional Health Concerns + + + + + | Infection | Onset Date | Last Indicated | Resolved Time | + + + + + | Rule out COVID-19 | 08/14/2019 | 08/14/2019 | 08/14/2019 5:22 PM | | | | | PDT | + + + + + documented as of this encounter"
--- OUTSIDE RECORDS SUMMARY | ~2020-01-14 | XMS | Encounter Summary ---
Demographics + + + | Address | [address] | | | [place] [address] | + + + | Home Phone | | + + + | Preferred Language | Unknown | + + + | Marital Status | | + + + | Anabaptist Affiliation | 1061 | + + + | Race | White | + + + | Ethnic Group | Not or | + + + Author + + + | Author | [facility] | | | and [place] | + + + | Organization | [facility] | | | and [place] | + + + | Address | Unknown | + + + | Phone | Unavailable | + + + Support + + + + + | Name | Relationship | Address | Phone | + + + + + | Palak Trejo Aguilar | ECON | [address] | | | | | [address] | | + + + + + | Tanika Jean | ECON | Unknown | | + + + + + Care Team Providers + +------+ + | Care Song And Dance Performer Name | Role | Phone | + +------+ + PCP | Unavailable | + +------+ + Encounter Details +--------+ + + + + | Date | Type | Department | Care Team | Description | +--------+ + + + + | 12/16/ | Abstract | [facility] | [facility] | | | 2011 | | Conversion Location | SR | | | | | [address] | | | | | | [place], [place] | | | | | | [address] | | | | | | [phone] | | | +--------+ + + + [...] + + + | Blood Pressure | 100/58 | 10/19/2011 12:00 AM | | | | | PDT | | + + + + + | Pulse | - | - | | + + + + + | Temperature | - | - | | + + + + + | Respiratory Rate | - | - | | + + + + + | Oxygen Saturation | - | - | | + + + + + | Inhaled Oxygen | - | - | | | Concentration | | | | + + + + + | Weight | 101.4 kg (223 lb 9.6 | 10/19/2011 12:00 AM | | | | oz) | PDT | | + + + + + | Height | 175.3 cm (5' 9") | 02/24/2011 12:00 AM | | | | | PST | | + + + + + | Body Mass Index | 33.02 | 02/24/2011 12:00 AM | | | | | PST | | + + + + + documented in this encounter Plan of Treatment [...] | | | | | [place] [address] | | | | | | [phone] | | | | | | | | +--------+---------+ + + + | 04/19/ | Office | Pulmonology | Alfonso Wallace MD | | | 2020 | Visit | | [address] | | | | | | [place] | | | | | | [address] | | | | | | | | +--------+---------+ + + + documented as of this encounter Visit Diagnoses Not on filedocumented in this encounter
--- OUTSIDE RECORDS SUMMARY | ~2020-01-14 | XMS | Encounter Summary ---
Demographics + + + | Address | [address] | | | [place] [address] | + + + | Home Phone | | + + + | Preferred Language | Unknown | + + + | Marital Status | | + + + | Congregation Affiliation | 1061 | + + + | Race | White | + + + | Ethnic Group | Not or | + + + Author + + + | Author | [facility] | | | and [place] | + + + | Organization | [facility] | | | and [place] | + + + | Address | Unknown | + + + | Phone | Unavailable | + + + Support + + + + + | Name | Relationship | Address | Phone | + + + + + | Palak Aguilar | ECON | [address] | | | | | [address] | | + + + + + | Tanika Jean | ECON | Unknown | | + + + + + Care Team Providers + +------+ + | Care Machine Maintenance Technician Name | Role | Phone | + +------+ + | Jose Angel Reina MD | PCP | | + +------+ + Reason for Visit +--------+ + | Reason | Comments | +--------+ + | COPD | | +--------+ + Encounter Details +--------+---------+ + + + | Date | Type | Department | Care Team | Description | +--------+---------+ + + + | 09/27/ | Office | [facility] | Offenstein, | COPD (chronic | | 2013 | Visit | PULMONARY [address] | Ling Frazier MD | obstructive | | | | [place], | | pulmonary disease) | | | | [place] [address] | | (Primary Dx); | | | | [phone] | | Nocturnal hypoxemia | | | | | | due to emphysema | | | | | | (HCC); Tobacco | | | | | | abuse; Ataxia | +--------+---------+ + + + Social History [...] + + + | Blood Pressure | 118/62 | 09/27/2013 10:54 AM | | | | | PDT | | + + + + + | Pulse | 84 | 09/27/2013 10:54 AM | | | | | PDT | | + + + + + | Temperature | - | - | | + + + + + | Respiratory Rate | - | - | | + + + + + | Oxygen Saturation | 95% | 09/27/2013 10:54 AM | | | | | PDT | | + + + + + | Inhaled Oxygen | - | - | | | Concentration | | | | + + + + + | Weight | 99.9 kg (220 lb 3.2 | 09/27/2013 10:54 AM | | | | oz) | PDT | | + + + + + | Height | 175.3 cm (5' 9") | 09/27/2013 10:54 AM | | | | | PDT | | + + + + + | Body Mass Index | 32.52 | 09/27/2013 10:54 AM | | | | | PDT | | + + + + + documented in this encounter Patient Instructions Patient Instructions Ling Lowe MD - 09/27/2013 11:25 AM PDTMake sure you leah edule the appointment with Dr. Craig if you can't make it. If you want to do the lab tests that [facility] recommended, let me know, and I will figure out h ow to do it. 5-078-OCIQ-NOW is a free service to help you or someone you care about quit using tobacco. Different people need different resources as they try to quit. The quit line can support bot h your immediate and long-term needs. Our coaches can talk to you about overcoming common ba rriers, like dealing with stress, cravings, irritability, and weight gain. The quit line is available in both Turkmen and Mauritanian with translation and TTY services. It is open 7 days a week. 24 hours a day except the October, , and . They can t ell you if you qualify for free patches and gum. I might also consider calling [facility] and see if they offer smoking cessation classes . documented in this encounter Progress Notes Ling Lowe MD - 09/27/2013 11:09 AM PDTFormatting of this note might be differheather nt from the original. Pulmonary Follow Up HPI Nazario Aguilar Sr. is a 63 y.o. male patient of Jose Angel Reina here today f or follow up of COPD. At their last visit, we had switched his Duonebs to albuterol nebulizers. Since their last visit he feels like he has been doing aboutthe same. He has not had any acute illnesses. He has been coughing some, off and on. He is currently on a regimen of Advair, Spiriva and Daliresp. He does feel like this medic ation regimen is working for them. Currently he is using his rescue inhaler, ProAir, 1 time s a week. He is using his nebulizer, albuterol, 3 times a day. He did not have a problem s witching from Duonebs to albuterol. He returns today for routine follow up. Currently he is able to walk a couple of blocks at his own pace on level ground if he holds on to something. He is not exercising regularly. He is walking mostly with a walker, though at home, he does not use this. If he is at the store he pushes a grocery cart. He does cough chronically, off and on. He is bringing up mucous some of the time. He has been evaluated for nocturnal oxygen and does use it. He is currently on 3 L[facility] at [facility] [place]. He reports good compliance. Past Medical History Past Medical History Diagnosis Date COPD (chronic obstructive pulmonary disease) (HCC) Diabetes mellitus (HCC) HTN (hypertension) Seizure disorder (HCC) Restless legs syndrome Seasonal allergies Dyslipidemia PLMD (periodic limb movement disorder) Asthma Hyperlipidemia Hernia, hiatal Kidney stone Facet arthritis of lumbar region Past Surgical History Past Surgical History Procedure Date Cholecystectomy Hernia repair Tonsillectomy Eye surgery Social History: History Social History Marital Status: Spouse Name: N/A Number of Children: N/A Years of Education: N/A Social History Main Topics Smoking status: Current Every Day Smoker -- 2.0 packs/day for 46 years Types: Cigarettes Smokeless tobacco: Never Used Comment: currently smoking up to 1/2 ppd Alcohol Use: No Drug Use: No Sexually Active: None Other Topics Concern None Social History Narrative No known toxic chemical exposures. No known asbestos exposure. No known TB exposure. Has d ogs and cat in home. Allergies: Allergies Allergen Reactions Levaquin Varenicline Tartrate Chantix Medications: Outpatient Encounter Prescriptions as of 09/27/2013 Medication Sig Dispense Refill Acetaminophen (TYLENOL EXTRA STRENGTH PO) TABS. As needed albuterol (PROAIR HFA) 90 mcg/puff inhaler Inhale 2 puffs into the lungs every 6 hours as needed. albuterol 2.5 mg/3 mL nebulizer solution Take 3 mLs by nebulization every 6 hours as ne eded for Wheezing or Shortness of Breath. Dx: 496 RINA: 99 months [facility] 360 vial 4 aspirin 325 mg tablet Take 325 mg by mouth Daily. atorvaSTATin (LIPITOR) 40 mg tablet Take 80 mg by mouth nightly. carBAMazepine (EPITOL) 200 mg tablet Take 200 mg by mouth 4 times daily. Cyanocobalamin (B-12) 1000 MCG CAPS Take 1,000 mg by mouth Daily. DALIRESP 500 MCG tablet TAKE ONE TABLET BY MOUTH EVERY DAY 30 tablet 4 diazepam (VALIUM) 2 mg tablet Take 1 tablet by mouth 45 minutes prior to MRI. May repe at x 1 if claustrophobia persists. 2 tablet 0 fluticasone (FLONASE) 50 mcg/nasal spray 2 sprays in each nostril daily fluticasone-salmeterol (ADVAIR DISKUS) 500-50 mcg/puff diskus inhaler 1 puff inhaled tw ice daily lisinopril (PRINIVIL, ZESTRIL) 10 mg tablet Take 25 mg by mouth Daily. metFORMIN (GLUCOPHAGE) 500 mg tablet Take 500 mg by mouth 2 times daily. oxygen Inhale 3 L into the lungs nightly. rOPINIRole (REQUIP) 1 mg tablet TAKE ONE TABLET BY MOUTH NIGHTLY 30 tablet 10 Sennosides-Docusate Sodium (SENNA S PO) Take by mouth. SPIRIVA HANDIHALER 18 MCG inhalation capsule INHALE ONE CAPSULE EVERY DAY 30 capsule 10 Review of Systems Constitutional: Denies fever, chills, sweats. Had lost about 10 pounds. Eyes: Denies vision change and eye irritation. ENT: Denies nasal congestion, nosebleeds, sore throat, and hoarseness. Has had right ear p ain. Resp: See HPI. CV: Denies chest pain, palpitations, syncope, and peripheral edema. GI: Denies heartburn, nausea, vomiting, and abdominal pain. : Denies difficulty emptying bladder. MS: He notes some ongoing right sided shoulder pain. He discussed this with Dr. Craig. Objective BP 118/62 | Pulse 84 | Ht 1.753 m (5' 9") | Wt 99.882 kg (220 lb 3.2 oz) | BMI 32.50 kg/m2 | SpO2 95% RA General Appearance: Alert, cooperative, no distress, appears stated age Head: Normocephalic, without obvious abnormality, atraumatic Eyes: PERRL, conjunctiva clear, no scleral icterus, EOM's intact Ears: Normal TM's, external auditory canals, normal acuity Nose: Nares normal, septum midline, mucosa normal Mouth: No oral lesions or exudate Neck: Supple, symmetrical, no adenopathy Lungs: No accessory muscle use, breath sounds are diminished bilaterally with prolongatio n of the expiratory phase, no wheezes, crackles or rhonchi Chest Wall: No deformity Heart: Regular rate and rhythm, no murmur, rub or gallop Abdomen: Soft, non-tender, non-distended, mildly obese Extremities: No cyanosis, clubbing, or edema Pulses: Radial pulses 2+ and symmetric Skin: Warm and dry Lymph nodes: Cervical and supraclavicular nodes normal Data: Results for orders placed during the hospital encounter of 01/19/13 CBC WITH DIFFERENTIAL Component Value Range WBC 9.0 4.0 - 11.0 K/uL RBC 4.83 4.30 - 5.70 M/uL Hgb 15.1 13.5 - 18.0 gm/dL Hct 46.1 40.0 - 51.0 % MCV 95.6 83.0 - 101.0 fL MCH 31.2 28.0 - 35.0 pg MCHC 32.6 32.0 - 36.0 g/dL RDW 13.3 <15.0 % Platelet Count 240 140 - 440 K/uL % Neutrophils 56.1 45 - 75 % % Lymphocytes 33.8 20 - 45 % % Monocytes 6.1 4 - 12 % % Eosinophils 1.9 0 - 5 % % Basophils 2.1 (*) 0 - 1 % Absolute Neutrophils 5.0 1.5 - 6.6 K/uL Absolute Lymphocytes 3.0 0.6 - 3.2 K/uL Absolute Monocytes 0.6 0.0 - 1.0 K/uL Absolute Eosinophils 0.2 0.0 - 0.4 K/uL Absolute Basophils 0.2 (*) 0.0 - 0.1 K/uL COMPREHENSIVE METABOLIC PANEL Component Value Range GLUCOSE 91 70 - 109 mg/dL CALCIUM 9.1 8.3 - 10.5 mg/dL ALK PHOS 99 40 - 110 IU/L AST 18 10 - 42 IU/L ALT 17 6 - 45 IU/L BILIRUBIN TOTAL 0.7 0.2 - 1.0 mg/dL Total protein 6.6 6.0 - 7.8 gm/dL ALBUMIN 3.9 3.2 - 5.0 gm/dL BUN 7 7 - 18 mg/dL Creatinine, Serum 0.84 0.60 - 1.30 mg/dL Estimated GFR >60 >60 mL/min/A BUN/Creatinine Ratio 8.3 (*) 12 - 20 NA 140 136 - 149 mEq/L K 4.1 3.5 - 5.1 mEq/l CL 107 98 - 109 mEq/l CO2 24 24 - 31 mEq/L ANION GAP 13.1 6.0 - 17.0 MAGNESIUM Component Value Range MG 1.9 1.8 - 2.5 mg/dL VITAMIN E Component Value Range Alpha-Tocopherol 9.3 5.5 - 21.0 mg/L TSH Component Value Range TSH 1.14 0.34 - 5.60 uIU/mL CERULOPLASMIN Component Value Range CERULOPLASMIN 34 7 - 220 mg/dL MAGNESIUM Component Value Range MG 1.9 1.8 - 2.5 mg/dL COMPREHENSIVE METABOLIC PANEL Component Value Range GLUCOSE 91 70 - 109 mg/dL CALCIUM 9.1 8.3 - 10.5 mg/dL ALK PHOS 99 40 - 110 IU/L AST 18 10 - 42 IU/L ALT 17 6 - 45 IU/L BILIRUBIN TOTAL 0.7 0.2 - 1.0 mg/dL Total protein 6.6 6.0 - 7.8 gm/dL ALBUMIN 3.9 3.2 - 5.0 gm/dL BUN 7 7 - 18 mg/dL Creatinine, Serum 0.84 0.60 - 1.30 mg/dL Estimated GFR >60 >60 mL/min/A BUN/Creatinine Ratio 8.3 (*) 12 - 20 NA 140 136 - 149 mEq/L K 4.1 3.5 - 5.1 mEq/l CL 107 98 - 109 mEq/l CO2 24 24 - 31 mEq/L ANION GAP 13.1 6.0 - 17.0 TSH Component Value Range TSH 1.14 0.34 - 5.60 uIU/mL VITAMIN E Component Value Range Alpha-Tocopherol 9.3 5.5 - 21.0 mg/L CERULOPLASMIN Component Value Range CERULOPLASMIN 34 7 - 220 mg/dL Immunization History Administered Date(s) Administered INFLUENZA, >= 4YO W/PRESERVATIVE IM 01/18/2011 INFLUENZA, PRESERVATIVE FREE IM 01/19/2012, 03/16/2013 Pneumococcal (Adult) 01/18/2010 Tdap 01/19/2012 Assessment 1. COPD (chronic obstructive pulmonary disease) - This is effectively stable on the Advair, Spiriva and Daliresp. 2. 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 3. Tobacco abuse - Ongoing. I spent some time counseling him about this as well, and sugges kiana that he look in to classes at [facility]. He wanted to know if patches or gum were av ailable for free, and I suggested asking the Quitline, which he had lost the number of, so t his was supplied again. He also inquired about hypnosis, which I do not recommend. I would c onsider acupuncture, as there is at least mixed data for this, if he is interested in CAM te chniques. 4. Ataxia - He inquired about the testing that [facility] wanted, so I looked in the [facility] system, got their notes and have requested that we look in to the cost of the testing they asked be done with his new insurance. I cannot comment more on the utility of testing, as it is not my specialty. Plan 1.I would recheck overnight oximetry at the time of his next visit. 2.Continue Advair, Spiriva, and Daliresp. 3.Referred to Quitline again, and also asked him to inquire about smoking cessation classes at [facility]. 4. We will inquire about cost of testing: complete ataxia panel from [facility] or equivalent fragile X premutation (FMR1) lipid screen for abetalipoproteinemia, cholesterol level complete heavy metal screen 5 minutes was spent on counseling regarding smoking cessation. He was advised to call if new pulmonary symptoms were to develop. Return to clinic in 3 months, or sooner with concerns. CC: Jose Angel Reina Portions of this report were transcribed using voice recognition software. Every effort wa s made to ensure accuracy; however, inadvertent computerized business administration teacher errors may be pre sent. Electronically signed by: Ling Lowe MD 09/27/2013 11:09 documented in t his encounter Plan of Treatment +--------+---------+ + + + | Date | Type | Specialty | Care Team | Description | +--------+---------+ + + + | 01/28/ | Office | Infectious Diseases | Sana Dawson | | | 2019 | Visit | | Jazmin Stringer MD | | | | | | [address] | | | | | | [place] [address] | | | | | | [phone] | | | | | | | | +--------+---------+ + + + | 04/19/ | Office | Pulmonology | Alfonso Wallace MD | | | 2020 | Visit | | [address] | | | | | | [place] [facility] [place] | | | | | | [address] | | | | | | | | +--------+---------+ + + + documented as of this encounter Visit Diagnoses + + | Diagnosis | + + | COPD (chronic obstructive pulmonary disease) - Primary Chronic airway obstruction, | | not elsewhere classified | + + | 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
--- OUTSIDE RECORDS SUMMARY | ~2020-01-14 | XMS | Encounter Summary ---
Demographics + + + | Address | [address] | | | [place] [address] | + + + | Home Phone [...] [address] | | | | | [address] | | + + + + + | Tanika Jean | ECON | Unknown | | + + + + + Care Team Providers + +------+ + | Care Senior Premium Auditor Name | Role | Phone | + +------+ + | No, Physician | PCP | Unavailable | + +------+ + Reason for Visit + + + | Reason | Comments | + + + | Screening For | | | Communicable Disease | | + + + Encounter Details +--------+ + + + + | Date | Type | Department | Care Team | Description | +--------+ + + + + | 08/13/ | Clinical | [facility] | Robbie Wyman | Exposure to | | 2020 | Support | [facility] | [address] | SARS-associated | | | | [address] [place] | [address] | coronavirus (Primary | | | | [address] [place] | [place] | Dx) | | | | [address] | [address] | | | | | [phone] | [phone] | | | | | | | [...] + + + | Blood Pressure | - | - | | + + + + + | Pulse | 105 | 08/14/2019 5:13 PM | | | | | PDT | | + + + + + | Temperature | 36.6 C (97.9 F) | 08/14/2019 5:13 PM | | | | | PDT | | + + + + + | Respiratory Rate | - | - | | + + + + + | Oxygen Saturation | 94% | 08/14/2019 5:13 PM | O2 nasal canula | | | | PDT | | + + + + + | Inhaled Oxygen | - | - | | | Concentration | | | | + + + + + | Weight | - | - | | + + + + + | Height | - | - | | + + + + + | Body Mass Index | - | - | | + + + + + documented in this encounter Progress Notes Hardy Benito, Acid Polymerization Operator - 08/14/2019 5:15 PM PDTPatient presents to the clin ic today for a COVID-19 clearance test for surgery. Patient collected their own specimen whi le being observed and instructed by clinic staff member with both verbal and written instruc tions. Patient was also given a ID NOW Test Fact Sheet. Patient was given results in person. Results given in person are given with a result specific discharge sheet. Negative Patients: Advised to self-quarantine until surgery. Postive Patients: Advised to contact their Surgeon's office for further instructions. [facility] umented in this encounter Plan of Treatment +--------+---------+ [...] | | | | | [place] [address] | | | | | | [phone] | | | | | | | | +--------+---------+ + + + | 04/19/ | Office | Pulmonology | Alfonso Wallace MD | | | 2020 | Visit | | [address] | | | | | | [place] | | | | | | [address] | | | | | | | | +--------+---------+ + + + documented as of this encounter Procedures + +--------+ + + + | Procedure Name | Priori | Date/Time | Associated Diagnosis | Comments | | | ty | | | | + +--------+ + + + | POC CORONAVIRUS | Routin | 08/14/2019 | Exposure to | Results for this | | (COVID-19) NAAT | e | 5:22 PM | SARS-associated | procedure are in the | | | | PDT | coronavirus | results section. | + +--------+ + + + documented in this encounter Results POC Coronavirus (COVID-19) NAAT (08/14/2019 5:22 PM PDT) + + + + + + | Component | Value | Ref Range | Performed | Pathologist | | | | | At | Signature | + + + + + + | POC SOURCE | Nares | | | | + + + + + + | SARS | Negative | Negative | | | | coronavirus | | | | | | 2 RNA | | | | | | (POC) | | | | | + + + + + + | Internal QC | Acceptable | Acceptable | | | + + + + + + + + | Specimen | + + | Tissue | + + documented in this encounter Visit Diagnoses + + | Diagnosis | + + | Exposure to SARS-associated coronavirus - Primary | + + documented in this encounter Additional Health Concerns + [...]
--- OUTSIDE RECORDS SUMMARY | ~2020-01-14 | XMS | Encounter Summary ---
Demographics + + + | Address | [address] | | | [place] [address] | + + + | Home Phone | | + + + | Preferred Language | Unknown | + + + | Marital Status | | + + + | Yazdanism Affiliation | 1061 | + + + | Race | White | + + + | Ethnic Group | Not or | + + + Author + + + | Author | [facility] | | | and [place] | + + + | Organization | [facility] | | | and [place] | + + + | Address | Unknown | + + + | Phone | Unavailable | + + + Support + + + + + | Name | Relationship | Address | Phone | + + + + + | Palak Aguilar | ECON | [id number] | | | | | [address] | | + + + + + | Tanika Jean | ECON | Unknown | | + + + + + Care Team Providers + +------+ + | Care Finish Mill Operator Name | Role | Phone | [...] Description | +--------+--------+ + + + | 12/09/ | Refill | [facility] [place] | Chrissy, | Medication Refill | | 2015 | | PULMONARY [address] | Ling Frazier MD | | | | | [place], | | | | | | [place] [address] | | | | | | [phone] | | | +--------+--------+ + + + [...] as of this encounter Plan of Treatment +--------+---------+ + + + | Date | Type | Specialty | Care Team | Description | +--------+---------+ + + + | 01/28/ | Office | Infectious Diseases | Sana Dawson | | | 2019 | Visit | | Jazmin Stringer MD | | | | | | [address] | | | | | | [place] [address] | | | | | | [phone] | | | | | | | | +--------+---------+ + + + | 04/19/ | Office | Pulmonology | Alfonso Wallace MD | | | 2020 | Visit | | [address] | | | | | | [place] | | | | | | [phone] | | | | | | | [...]
--- OUTSIDE RECORDS SUMMARY | ~2020-01-14 | XMS | Encounter Summary ---
Demographics + + + | Address | [address] | | | [place] [address] | + + + | Home Phone | | + + + | Preferred Language | Unknown | + + + | Marital Status | | + + + | Congregational Affiliation | 1061 | + + + | Race | White | + + + | Ethnic Group | Not or | + + + Author + + + | Author | [facility] | | | and [place] | + + + | Organization | [facility] | | | and [place] | + + + | Address | Unknown | + + + | Phone | Unavailable | + + + Support + + + + + | Name | Relationship | Address | Phone | + + + + + | Palak Aguilar | ECON | [address] | | | | | [address] | | + + + + + | Tanika Jean | ECON | Unknown | | + + + + + Care Team Providers + +------+ + | Care Chief Of Police Name | Role | Phone | + +------+ + | Jose Angel Reina MD | PCP | | + +------+ + Encounter Details +--------+ + + + + | Date | Type | Department | Care Team | Description | +--------+ + + + + | 06/21/ | Orders Only | [facility] [place] | Stephanie Garland, | COPD (chronic | | 2013 | | PULMONARY [address] | RN | obstructive | | | | [place], | | pulmonary disease) | | | | [place] [address] | | ([facility]) (Primary Dx) | | | | [phone] | | | +--------+ + + + [...] + | Comments: currently smoking up to /2 ppd | + + + + +---------+ [...] | | | | | [place] [address] | | | | | | [phone] | | | | | | | | +--------+---------+ + + + | 04/19/ | Office | Pulmonology | Alfonso Wallace MD | | | 2020 | Visit | | [address] | | | | | | [place] | | | | | | [address] | | | | | | | | +--------+---------+ + + + documented as of this encounter Visit Diagnoses + + | Diagnosis | + + | COPD (chronic obstructive pulmonary disease) (HCC) - Primary Chronic airway | | obstruction, not elsewhere classified | + + documented in this encounter"
--- OUTSIDE RECORDS SUMMARY | ~2020-01-14 | XMS | Encounter Summary ---
Demographics + + + | Address | [address] | | | [place] [address] | + + + | Home Phone | | + + + | Preferred Language | Unknown | + + + | Marital Status | | + + + | Mandaen Affiliation | 1061 | + + + [...] [id number] | | | | | [address] | | + + + + + | Tanika Jean | ECON | Unknown | | + + + + + Care Team Providers + +------+ + | Care Pin Inserter Name | Role | Phone | + +------+ + | Jose Angel Reina MD | PCP | | + +------+ + Reason for Visit + +--------+ + | Reason | Onset | Comments | | | Date | | + +--------+ + | Medication Refill | 04/20/ | | | | 2012 | | + +--------+ + Encounter Details +--------+--------+ + + + | Date | Type | Department | Care Team | Description | +--------+--------+ + + + | 04/20/ | Refill | [facility] | Chrissy, | Medication Refill | | 2012 | | PULMONARY [address] | Ling Frazier MD | | | | | [place], | | | | | | [place] [address] | | | | | | [phone] | | | +--------+--------+ + + + [...] this encounter Miscellaneous Notes Telephone Encounter - Mundo Dominique RN - 04/20/2012 2:31 PM PSTRefilled electronically. documented in this en counter Plan of Treatment +--------+---------+ + + + | Date | Type | Specialty | Care Team | Description | +--------+---------+ + + + | 01/28/ | Office | Infectious Diseases | Sana Dawson | | | 2019 | Visit | | Jamzin Stringer MD | | | | | | [address] | | | | | | [place] [address] | | | | | | [phone] | | | | | | | | +--------+---------+ + + + | 04/19/ | Office | Pulmonology | Alfonso Wallace MD | | | 2020 | Visit | | [address] | | | | | | [place] | | | | | | [address] | | | | | | | | +--------+---------+ + + + documented as of this encounter Visit Diagnoses Not on filedocumented in this encounter"
--- OUTSIDE RECORDS SUMMARY | ~2020-01-14 | XMS | Encounter Summary ---
Demographics + + + | Address | [address] | | | [place] [address] | + + + | Home Phone [...] [id number] | | | | | [address] | | + + + + + | Tanika Jean | ECON | Unknown | | + + + + + Care Team Providers + +------+ + | Care Ice Cream Vendor Name | Role | Phone | + [...] Description | +--------+--------+ + + + | 05/18/ | Refill | [facility] | Chrissy, | Medication Refill | | 2014 | | PULMONARY [address] | Ling Frazier MD | | | | | [place], | | | | | | [place] [address] | | | | | | [phone] | | | +--------+--------+ + + + [...] | | | | | [address] | | | | | | [place] [address] | | | | | | [phone] | | | | | | | | +--------+---------+ + + + | 04/19/ | Office | Pulmonology | Alfonso Wallace MD | | | 2020 | Visit | | [address] | | | | | | [place] | | | | | | [id number] | | | | | | | [...]
--- OUTSIDE RECORDS SUMMARY | ~2020-01-14 | XMS | Encounter Summary ---
Demographics + + + | Address | [address] | | | [place] [address] | + + + | Home Phone | | + + + | Preferred Language | Unknown | + + + | Marital Status | Single | + + + | Baptism Affiliation | Unknown | + + + | Race | Unknown | + + + | Ethnic Group | Other Race | + + + Author + + + | Author | [facility] | + + + | Organization | [facility] | + + + | Address | Unknown | + + + | Phone | Unavailable | + + + Care Team Providers + +------+ + | Care Seat Nailer Name | Role | Phone | + [...] | | Neurophysiolo | EEG | [facility] [address] | [address] | | | | gy | ROUTINE | [address] | [address] | | | | | | [address] | [address] [place] | | | | | | [place] | Research | | | | | | Research | [place] | | | | | | [place] | Floor | | | | | | Floor | [place], [place] | | | | | | [place], [place] | [address] | | | | | | [address] | Phone: | | | | | | Phone: | [phone] | | | | | | [phone] | Fax: | | | | | | Fax: | [phone] | | | | | | [phone] | | +--------+--------+ + + + + Encounter Details +--------+ + + + + | Date | Type | Department | Care Team | Description | +--------+ + + + + | 02/03/ | Outside | Neurophysiology | Faisal Kebede | | | 2010 | Referral | EEG at [facility] [address] | MD ELIE Walls | | | | Order | [facility] | [facility] | | | | | [facility] | [address] [facility] | | | | | [place] | [place], [place] | | | | | [place], [place] | [address] | | | | | [address] | [phone] | | | | | [phone] | | | +--------+ + + + [...] + + | Patient Name: Nazario Aguilar . Date of : 1950 | | | Date of Test: 01/30/2011 Place | | | of Service: [facility] Department: EEG [facility] - [phone] | | | ROUTINE EEG this is [...]
--- OUTSIDE RECORDS SUMMARY | ~2020-01-14 | XMS | Encounter Summary ---
Demographics + + + | Address | [address] | | | [place] [address] | + + + | Home Phone | | + + + | Preferred Language | Unknown | + + + | Marital Status | | + + + | Confucianism Affiliation | 1061 | + + + | Race | White | + + + | Ethnic Group | Not or | + + + Author + + + | Author | [facility] | | | and [place] | + + + | Organization | [facility] | | | and [place] | + + + | Address | Unknown | + + + | Phone | Unavailable | + + + Support + + + + + | Name | Relationship | Address | Phone | + + + + + | Palak Aguilar | ECON | [id number] | | | | | [address] | | + + + + + | Tanika Jean | ECON | Unknown | | + + + + + Care Team Providers + +------+ + | Care Bus Escort Name | Role | Phone | + +------+ + | Nuzhat Orantes MD | PCP | | + +------+ + Encounter Details +--------+ + + + + | Date | Type | Department | Care Team | Description | +--------+ + + + + | 12/18/ | Documentati | [facility] | FrancoFrederickwacelina, | | | 2019 | on | PULMONOLOGY [address] | [address] | | | | | [address] | Risk Intern | | | | | [place] | | | | | | [address] | | | | | | [phone] | | | +--------+ + + + + Social History + + + +--------+ + | Tobacco Use | Types | Packs/Day | Years | Date | | | | | Used | | + + + +--------+ + | Current Every Day | Cigarettes | 2 | 46 | Started: 1963 | | Smoker | | | | [...] + + documented as of this encounter Progress Notes Monique Naidu, Tobacco Roller - 12/19/2019 2:13 PM PDTLVM for pt to call back to schedule 4 mo fu documented in this encounter Plan of Treatment [...] | | | | | [place] [address] | | | | | | [phone] | | | | | | | | +--------+---------+ + + + | 04/19/ | Office | Pulmonology | Alfonso Wallace MD | | | 2020 | Visit | | [address] | | | | | | [place] | | | | | | [address] | | | | | | | | +--------+---------+ + + + documented as of this encounter Visit Diagnoses Not on filedocumented in this encounter"
--- OUTSIDE RECORDS SUMMARY | ~2020-01-14 | XMS | Clinical Summary ---
Demographics + + + | Address | [address] | | | [place] [address] | + + + | Home Phone | | + + + | Preferred Language | Unknown | + + + | Marital Status | | + + + | Hoahaoism Affiliation | 1061 | + + + | Race | White | + + + | Ethnic Group | Not or | + + + Author + + + | Author | [facility] | | | and [place] | + + + | Organization | [facility] | | | and [place] | + + + | Address | Unknown | + + + | Phone | Unavailable | + + + Support + + + + + | Name | Relationship | Address | Phone | + + + + + | Palak Aguilar | ECON | [address] | | | | | [phone] | | + + + + + | Tanika Jean | ECON | Unknown | | + + + + + Care Team Providers + +------+ + | Care Stack Clerk Name | Role | Phone | + [...] mg by mouth | | 0 | 09/1 | | Activ | | (GLUCOPHAGE) 500 mg | 2 times daily. | | | 4/20 | | e | | tablet | | | | 12 | | | + + + +---------+------+------+-------+ | carBAMazepine | Take 200 mg by mouth | | 0 | 09/1 | | Activ | | (EPITOL) 200 mg | 4 times daily. | | | 4/20 | | e | | tablet | | | | 12 | | | + + + +---------+------+------+-------+ | Cyanocobalamin | Take 1,000 mcg by | | 0 | | | Activ | | (B-12) 1000 MCG CAPS | mouth Daily. | | | | | e | + + + +---------+------+------+-------+ | oxygen | Inhale 2 L into the | | 0 | | | Activ | | | lungs continuous. | | | | | e | + + + +---------+------+------+-------+ | fluticasone | 1 spray by Nasal | 16 g | 11 | 06/2 | | Activ | | (FLONASE) 50 | route Daily. | | | 2/20 | | e | | mcg/nasal spray [...] MOUTH ONCE DAILY | tablet | | 06/22 | | e | | tabletIndications: | | | | 16 | | | | Chronic obstructive | | | | | | | | pulmonary disease, | | | | | | | | unspecified COPD | | | | | | | | type ([facility]) | | | | | | | [...] | | + + + +---------+------+------+-------+ | BREO ELLIPTA | INHALE 1 PUFF BY | | 0 | 08/3 | | Activ | | 100-25 MCG/INH | MOUTH ONCE DAILY | | | 0/20 | | e | | inhaler | | | | 20 | | | + + + +---------+------+------+-------+ | azithromycin | Take 1 tablet by | 30 | 0 | 09/2 | 10/2 | Activ | | (ZITHROMAX) 500 MG | mouth Daily for 30 | tablet | | 1/20 | 1/20 | e | | tablet | days. | | | 20 | 20 | | + + + +---------+------+------+-------+ | ethambutol | Take 4 tablets by | 120 | 0 | 09/2 | 10/2 | Activ | | (MYAMBUTOL) 400 mg | mouth Daily for 30 | tablet | | 1/20 | 1/20 | e | | tabletIndications: | days. Indications: | | | 20 | 20 | | | Mycobacterium | Infection caused by | | | | | | | Infection | Mycobacteria | | | | | | + + + +---------+------+------+-------+ | rifabutin | Take 2 capsules by | 60 | 0 | 09/2 | 01/04 | Activ | | (MYCOBUTIN) 150 mg | mouth Daily for 30 | capsule | | /20 | 04/24 | e | | capsule | days. | | | 20 | 20 | | + + + +---------+------+------+-------+ | | Take 1 tablet by | 28 | 0 | 08/03 | 12/04 | Disco | | amoxicillin-clavulan | mouth 2 times daily. | tablet | | / | / | ntinu | | ate (AUGMENTIN) | | | | 20 | 20 | ed | | 500-125 mg per | | | | | | | | tablet | | | | | | | + + + +---------+------+------+-------+ | rifAMPin 300 mg | Take 2 capsules by | 60 | 0 | 12/05 | 12/05 | Disco | | capsule | mouth Daily for 30 | capsule | | /20 | /20 | ntinu | | | days. | | | 20 | 20 | ed | | | | | | | | (Erro | | | | | | | | r) | + + + +---------+------+------+-------+ Active Problems + + + | Problem | Noted Date | + + + | Personal history of tobacco use, presenting hazards to health | 08/10/2019 | + + + + + | Overview: Added automatically from request for surgery | | [id number] | + + + + + | Centrilobular emphysema | 08/10/2019 | + + + + + | Overview: Added automatically from request for surgery | | [id number] | + + + + + | Allergic rhinitis | [...] cuff arthropathy | | + + + Encounters +--------+ + + + + | Date | Type | Specialty | Care Team | Description | +--------+ + + + + | 01/08/ | Documentati | Infectious Diseases | Susan Han, | Other (Labs from | | 2019 | on | | Labeling Specialist | [facility] | | | | | | 01/05/2020 | | | | | | (CBC,CMP)..) | +--------+ + + + + | 12/24/ | Office | Infectious Diseases | Sana Dawson | Mycobacterium avium | | 2019 | Visit | | Jazmin Stringer MD | complex (HCC) | | | | | | (Primary Dx); | | | | | | Chronic obstructive | | | | | | pulmonary disease, | | | | | | unspecified COPD | | | | | | type (HCC) | +--------+ + + + + | 12/18/ | Virtual | Pulmonology | Alfonso Wallace MD | Mycobacterial | | 2019 | Office | | | infection, non-TB | | | Visit | | | (Primary Dx); | | | | | | Personal history of | | | | | | tobacco use, | | | | | | presenting hazards | | | | | | to health; Chronic | | | | | | respiratory failure | | | | | | with hypoxia and | | | | | | hypercapnia (HCC); | | | | | | Lung mass; | | | | | | Centrilobular | | | | | | emphysema (HCC) | +--------+ + + + + | 12/18/ | Documentati | Pulmonology | Elysia, | | | 2019 | on | | Marcella Bird | | | | | | Viscera Washer | | +--------+ + + + + | 12/14/ | Hospital | Radiology | Alfonso Wallace MD | Lung mass | | 2020 | Encounter | | | | +--------+ + + + + | 11/28/ | Virtual | Pulmonology | Alfonso Wallace MD | Lung mass (Primary | | 2019 | Office | | | Dx); Personal | | | Visit | | | history of tobacco | | | | | | use, presenting | | | | | | hazards to health; | | | | | | Mass of upper lobe | | | | | | of right lung; | | | | | | Centrilobular | | | | | | emphysema ([facility]); | | | | | | Chronic respiratory | | | | | | failure with hypoxia | | | | | | and hypercapnia | | | | | | ([facility]); Mycobacterial | | | | | | infection, non-TB | +--------+ + + + + | 11/28/ | Hospital | Radiology | Alfonso Wallace MD | Pneumonia of right | | 2019 | Encounter | | | upper lobe due to | | | | | | methicillin | | | | | | susceptible | | | | | | Staphylococcus | | | | | | aureus (MSSA) ([facility]) | +--------+ + + + + from Last 3 Months Immunizations + + + + | Name | Administration Dates | Next Due | + + + + | HEP B, 3 DOSE | 11/28/2015 | | | (ADULT) | | | + + + + | INFLUENZA 63 Y OR >, | 02/07/2019, 01/11/2017 | | | TRIVALENT HIGH-DOSE | | | + + + + | INFLUENZA PF 16 Y OR | 03/16/2013, 01/19/2012 | | | >,TRIVALENT | | | | RECOMBINANT | | | + + + + | INFLUENZA PF | 02/07/2019, 11/27/2015, 01/21/2015, | | | QUAD(PED/ADOL/ADULT) | 12/28/2013 | | | ,PSKT or VIAL | | | + + + + | INFLUENZA TRIV | 02/02/2011 | | | W/PRES(PED/ADOL/ADUL | | | | T),MULTIDOSE | | | + + + + | PNEUMOCOCCAL | 10/26/2015, 06/14/2014 | | | CONJUGATE 13-VALENT | | | | (PCV13) | | | + + + + | PNEUMOCOCCAL | 01/14/2017, 01/18/2010 | | | POLYSACCHARIDE | | | | 23-VALENT (PPSV23) | | | + + + + | TD PF (5 LF TETANUS) | 07/23/2019 | | | (ADOL/ADULT) | | | + + + + | TDAP, (ADOL/ADULT) | 10/26/2015, 01/19/2012 | | + + + + | ZOSTER, 1 DOSE | 01/26/2015 | | | (ZOSTAVAX) | | | + + + + Family [...] + + + | Blood Pressure | 130/72 | 12/25/2019 2:24 PM | | | | | PDT | | + + + + + | Pulse | 122 | 12/25/2019 2:24 PM | | | | | PDT | | + + + + + | Temperature | 36.3 C (97.4 F) | 12/25/2019 2:24 PM | | | | | PDT | | + + + + + | Respiratory Rate | 16 | 12/25/2019 2:24 PM | | | | | PDT | | + + + + + | Oxygen Saturation | 96% | 12/25/2019 2:24 PM | | | | | PDT | | + + + + + | Inhaled Oxygen | - | - | | | Concentration | | | | + + + + + | Weight | 101.2 kg (223 lb) | 12/25/2019 2:24 PM | | | | | PDT | | + + + + + | Height | 175.3 cm (5' 9") | 08/15/2019 6:33 AM | | | | | PDT | | + + + + + | Body Mass Index | 32.93 | 08/15/2019 6:33 AM | | | | | PDT | | + + + + + Plan of Treatment +--------+---------+ + + + | Date | Type | Specialty | Care Team | Description | +--------+---------+ + + + | 01/28/ | Office | Infectious Diseases | Sana Dawson | | | 2019 | Visit | | Jazmin Stringer MD | | | | | | [address] | | | | | | [place] [address] | | | | | | [phone] | | | | | | | | +--------+---------+ + + + | 04/19/ | Office | Pulmonology | Alfonso Wallace MD | | | 2020 | Visit | | [address] | | | | | | [place] | | | | | | [id number] | | | | | | | | +--------+---------+ + + + + + + + + | Health Maintenance | Due Date | Last | Comments | | | | Done | | + + + + + | Hepatitis C | | | | | Screening | 9 | | | + + + + + | Med Mgmt: | | | | | Carbamazepine | 9 | | | + + + + + | Med Mgmt: HBA1C | | | | | | 9 | | | + + + + + | Medication | | | | | Management | 9 | | | + + [...] + + + + | Vaccine: Zoster (2 | | 01/27/20 | | | of 3) | 5 | 15 | | + + + + + | Adult Annual | | | | | Wellness Visit | 0 | | | + + + + + | Lung Cancer | | 11/29/19 | | | Screening | 1 | 20 | | + + + + + | Med Mgmt: ALT | | 01/05/20 | | | | 1 | 20, | | | | | 06/06/19 | | | | | 16, | | | | | 06/06/19 | | | | | 16, | | | | | Addition | | | | | al | | | | | history | | | | | exists | | + + + + + | Med Mgmt: AST | | 01/05/20 | | | | 1 | 20, | | | | | 06/06/19 | | | | | 16, | | | | | 06/06/19 | | | | | 16, | | | | | Addition | | | | | al | | | | | history | | | | | exists | | + + + + + | Med Mgmt: BUN | | 01/05/20 | | | | 1 | 20, | | | | | 08/15/19 | | | | | 20, | | | | | 06/06/19 | | | | | 16, | | | | | Addition | | | | | al | | | | | history | | | | | exists | | + + + + + | Med Mgmt: Cr | | 01/05/20 | | | | 1 | 20, | | | | | 08/15/19 | | | | | 20, | | | | | 06/06/19 | | | | | 16, | | | | | Addition | | | | | al | | | | | history | | | | | exists | | + + + + + | Med Mgmt: HCT | | 01/05/20 | | | | 1 | 20, | | | | | 08/15/19 | | | | | 20, | | | | | 06/06/19 | | | | | 16, | | | | | Addition | | | | | al | | | | | history | | | | | exists | | + + + + + | Med Mgmt: HGB | | 01/05/20 | | | | 1 | 20, | | | | | 08/15/19 | | | | | 20, | | | | | 06/06/19 | | | | | 16, | | | | | Addition | | | | | al | | | | | history | | | | | exists | | + + + + + | Med Mgmt: K | | 01/05/20 | | | | 1 | 20, | | | | | 08/15/19 | | | | | 20, | | | | | 06/06/19 | | | | | 16, | | | | | Addition | | | | | al | | | | | history | | | | | exists | | + + + + + | Med Mgmt: Na | | 01/05/20 | | | | 1 | 20, | | | | | 08/15/19 | | | | | 20, | | | | | 06/06/19 | | | | | 16, | | | | | Addition | | | | | al | | | | | history | | | | | exists | | + + + + + | Med Mgmt: PLT | | 01/05/20 | | | | 1 | 20, | | | | | 06/06/19 | | | | | 16, | | | | | 06/06/19 | | | | | 16, | | | | | Addition | | | | | al | | | | | history | | | | | exists | | + + + + + | Med Mgmt: RBC | | 01/05/20 | | | | 1 | 20, | | | | | 06/06/19 | | | | | 16, | | | | | 06/06/19 | | | | | 16, | | | | | Addition | | | | | al | | | | | history | | | | | exists | | + + + + + | Med Mgmt: WBC | | 01/05/20 | | | | 1 | 20, | | | | | 06/06/19 | | | | | 16, | | | | | 06/06/19 | | | | | 16, | | | | | Addition | | | | | al | | | | | history | | | | | exists | | + + + + + | Med Mgmt: eGFR | | 01/05/20 | | | | 1 | 20, | | | | | 08/15/19 | | | | | 20, | | | | | 06/06/19 | | | | | 16, | | | | | Addition | | | | | al | | | | | history | | | | | exists | | + + + + + | Colorectal Cancer | | 04/05/19 | | | Screening | 5 | 15 | | | (Colonoscopy) | | | | + + + + + | Vaccine: | | 07/23/19 | | | Dtap/Tdap/Td (4 - | 0 | 20, | | | Td) | | 10/26/19 | | | | | 16, | | | | | 01/19/20 | | | | | 12 | | + + + + + | Vaccine: | Completed | 01/15/20 | | | Pneumococcal 65+ | | 17, | | | | | 10/26/19 | | | | | 16, | | | | | 06/15/19 | | | | | 15, | | | | | Addition | | | | | al | | | | | history | | | | | exists | | + + + + + | Vaccine: Influenza | Completed | 12/18/19 | | | | | 20, | | | | | 02/08/20 | | | | | 19, | | | | | 02/08/20 | | | | | 19, | | | | | Addition | | | | | al | | | | | history | | | | | exists | | + + + + + Procedures + +--------+ + + + | Procedure Name | Priori | Date/Time | Associated Diagnosis | Comments | | | ty | | | | + +--------+ + + + | COMPREHENSIVE | Routin | 01/05/2020 | | Results for this | | METABOLIC PANEL | e | 1:11 PM | | procedure are in the | | | | PDT | | results section. | + +--------+ + + + | CBC W/AUTO | Routin | 01/05/2020 | | Results for this | | DIFFERENTIAL | e | 1:11 PM | | procedure are in the | | | | PDT | | results section. | + +--------+ + + + | PET CT SKULL BASE TO | Routin | 12/15/2019 | Lung mass | Results for this | | MID THIGH | e | 3:07 PM | | procedure are in the | | | | PDT | | results section. | + +--------+ + + + | POC GLUCOSE (NON | Routin | 12/15/2019 | | Results for this | | ORD) | e | 12:42 PM | | procedure are in the | | | | PDT | | results section. | + +--------+ + + + | CT CHEST WO CONTRAST | Routin | 11/29/2019 | Pneumonia of right | Results for this | | | e | 1:42 PM | upper lobe due to | procedure are in the | | | | PDT | methicillin | results section. | | | | | susceptible | | | | | | Staphylococcus | | | | | | aureus (MSSA) (HCC) | | + +--------+ + + + from Last 3 Months Results CBC w/ Auto Differential (01/05/2020 1:11 PM PDT) + + + + + + | Component | Value | Ref Range | Performed | Pathologist | | | | | At | Signature | + + + + + + | WBC, | 12.3 (A) | 4.5 - 11.0 K/uL | REFERENCE | | | External | | | LAB | | | | | | [facility] | | + + + + + + | RBC, | 4.97 | 4.3 - 5.7 M/uL | REFERENCE | | | External | | | LAB | | | | | | [facility] | | + + + + + + | HGB, | 15.9 | 13.5 - 18.0 | REFERENCE | | | External | | g/dL | LAB | | | | | | [facility] | | + + + + + + | HCT, | 47.0 | 41 - 50 % | REFERENCE | | | External | | | LAB | | | | | | [facility] | | + + + + + + | MCV | 94.6 | 81 - 99 fl | REFERENCE | | | | | | LAB | | | | | | [facility] | | + + + + + + | RDW | 13.5 | 10.5 - 15.0 % | REFERENCE | | | | | | LAB | | | | | | [facility] | | + + + + + + | MCH | 32 | 27 - 33 pg | REFERENCE | | | | | | LAB | | | | | | [facility] | | + + + + + + | MCHC | 34 | 30 - 36 g/dL | REFERENCE | | | | | | LAB | | | | | | [facility] | | + + + + + + | PLT, | 269 | 140 - 440 K/uL | REFERENCE | | | External | | | LAB | | | | | | [facility] | | + + + + + + | Neutrophils | 74.0 | 39 - 80 % | REFERENCE | | | %, | | | LAB | | | External | | | [facility] | | + + + + + + | Lymphocytes | 16.7 (A) | 24 - 44 % | REFERENCE | | | %, | | | LAB | | | External | | | [facility] | | + + + + + + | Monocytes | 7.1 | 0 - 12 % | REFERENCE | | | %, External | | | LAB | | | | | | [facility] | | + + + + + + | Eosinophils | 1.1 | 0 - 6 % | REFERENCE | | | %, | | | LAB | | | External | | | [facility] | | + + + + + + | Basophils | 1.1 | 0 - 2 % | REFERENCE | | | %, External | | | LAB | | | | | | [facility] | | + + + + + + + + | Specimen | + + | Blood | + + + + + + + | Performing | Address | City/State/Zipcode | Phone Number | | Organization | | | | + + + + + | REFERENCE [facility] | [address] | [place] | [phone] | | [facility] | | [id number] | | + + + + + Comprehensive Metabolic Panel (01/05/2020 1:11 PM PDT) + +---------+ + + + | Component | Value | Ref Range | Performed | Pathologist | | | | | At | Signature | + +---------+ + + + | Na | 139 | 132 - 143 | REFERENCE | | | | | mmol/L | LAB | | | | | | [facility] | | + +---------+ + + + | K | 4.3 | 3.6 - 5.1 | REFERENCE | | | | | mmol/L | LAB | | | | | | [facility] | | + +---------+ + + + | Cl | 104 | 95 - 112 mmol/L | REFERENCE | | | | | | LAB | | | | | | [facility] | | + +---------+ + + + | CO2 | 23 | 19 - 31 mmol/L | REFERENCE | | | | | | LAB | | | | | | [facility] | | + +---------+ + + + | Anion Gap | 16 | 7 - 21 mmol/L | REFERENCE | | | | | | LAB | | | | | | [facility] | | + +---------+ + + + | Glucose | 123 (A) | 70 - 100 mg/dL | REFERENCE | | | | | | LAB | | | | | | [facility] | | + +---------+ + + + | BUN | 15 | 6 - 23 mg/dL | REFERENCE | | | | | | LAB | | | | | | [facility] | | + +---------+ + + + | Creatinine | 0.81 | 0.70 - 1.18 | REFERENCE | | | | | | LAB | | | | | | [facility] | | + +---------+ + + + | GFR | 94 | | REFERENCE | | | ESTIMATE | | | LAB | | | (REF) | | | [facility] | | + +---------+ + + + | BUN/Creatin | 18.5 | 6.0 - 28.6 | REFERENCE | | | ine Ratio | | | LAB | | | | | | [facility] | | + +---------+ + + + | Calcium | 9.2 | 8.5 - 10.3 | REFERENCE | | | | | | LAB | | | | | | [facility] | | + +---------+ + + + | AST | 13 | 13 - 39 U/L | REFERENCE | | | | | | LAB | | | | | | [facility] | | + +---------+ + + + | ALT | 17 | 7 - 52 U/L | REFERENCE | | | | | | LAB | | | | | | [facility] | | + +---------+ + + + | Alkaline | 96 | 31 - 120 U/L | REFERENCE | | | Phosphatase | | | LAB | | | | | | [facility] | | + +---------+ + + + | Bilirubin | 0.5 | 0.0 - 1.2 mg/dL | REFERENCE | | | Total | | | LAB | | | | | | [facility] | | + +---------+ + + + | Total | 6.9 | 6.0 - 8.3 g/dL | REFERENCE | | | Protein | | | LAB | | | | | | [facility] | | + +---------+ + + + | Albumin | 4.2 | 3.5 - 5.0 g/dL | REFERENCE | | | | | | LAB | | | | | | [facility] | | + +---------+ + + + | Globulin | 2.7 | 1.8 - 3.5 | REFERENCE | | | | | | LAB | | | | | | [facility] | | + +---------+ + + + | A/G Ratio | 1.6 | 1.1 - 2.4 | REFERENCE | | | | | | LAB | | | | | | [facility] | | + +---------+ + + + + + | Specimen | + + | Blood | + + + + + + + | Performing | Address | City/State/Zipcode | Phone Number | | Organization | | | | + + + + + | REFERENCE LAB | [address] | [place], [place] | [phone] | | [facility] | | [address] | | + + + + + PET CT Skull Base To Mid Thigh (12/15/2019 3:07 PM PDT) + + | Specimen | + + | | + + + + + | Impressions | Performed At | + + + | Summary of Target Lesions: *Large irregular shaped cavitary lesion | [facility] | | in right upper lobe measuring 8.3 x 3.3 cm with hypermetabolic | | | activity, maximum SUV 9.8, similar to CT dated 11/29/2019. The | | | lesion is decreased in size as compared to CT dated 08/07/2019. | | | Interval decrease in wall thickness and decrease in air-fluid level | | | as compared to CT dated 08/07/2019. *Small lower right paratracheal | | | and right hilar lymph nodes with mild hypermetabolic activity, | | | nonspecific, similar to CT dated 08/07/2019. Other PET/CT | | | Findings: *COPD with pulmonary emphysema. *Moderate coronary artery | | | atherosclerosis. *Small infrarenal abdominal aortic aneurysm | | | measuring 2.9 x 2.8 cm. Recommend attention on follow-up imaging with | | | ultrasound in 5 years. *Incidental findings as detailed above. | | | Comments: *Large irregular shaped cavitary lesion in right upper | | | lobe measuring 8.3 x 3.3 cm with hypermetabolic activity, similar to | | | CT dated 11/29/2019. The lesion is decreased in size as compared to | | | CT dated 08/07/2019. Interval decrease in wall thickness and decrease | | | in air-fluid level as compared to CT dated 08/07/2019. The lesion | | | could be infective/inflammatory related to known history of | | | mycobacterium avium infection or fungal infection. Neoplastic | | | lesion cannot be excluded. *Small lower right paratracheal and right | | | hilar lymph nodes with mild hypermetabolic activity are nonspecific, | | | likely reactive. Metastatic disease cannot be excluded. | | | Final Report Signed by: Jam Bond, Caleb Sign Date/Time: | | | 12/18/2019 10:16 AM | | + + + + + + | Narrative | Performed At | + + + | EXAM DESCRIPTION PET/CT REGISTRY SKULL TO MID THIGH CLINICAL | [facility] | | INFORMATION: Cavitary lesion and lung mass. Initial PET Scan | | | COMPARISON: CT CHEST WO CONTRAST (11/29/2019); XR CHEST AP PORTABLE | | | (08/15/2019); CT GUIDED STEREOTACTIC LOCALIZATION (08/15/2019); CTCHEST | | | (08/07/2019); PROCEDURE: The patient was evaluated with a | | | dedicated PET/CT scanner. Upon arrival, the patient's fasting | | | fingerstick blood glucose level was 104 mg/dL. 13.4 mCi of 18-FDG | | | was injected IV at 1248 hours, and 77 minutes post-injection CT | | | attenuation-correction images and then subsequent PET images | | | (attenuation-corrected and emission-only images) were obtained from | | | base of skull to thigh. PET, noncontrast-attenuation CT, and fused | | | PET/CT images were then reformatted and reviewed in the axial, | | | sagittal, coronal and 3-D maximum intensity projection planes. | | | FINDINGS: Mediastinal blood pool max SUV 2.8. Liver parenchyma max | | | SUV 4.2. HEAD: Brain: The distribution of FDG activity in the | | | visualized brain is physiologic. Physiological brain uptake limit | | | sensitivity of the PET-CT for brain lesions. Paranasal Sinuses: No | | | significant abnormalities to the extent seen. NECK: Neck: | | | Increased tracer uptake in right pterygoid, glottis and strap muscles | | | of the neck, image 157/series 607, probably physiological. Thyroid: | | | Physiologic distribution of FDG activity in the thyroid gland. No | | | abnormal focal or diffuse increased activity. CHEST: Lungs, | | | Pleura and Airways: There is a large irregular shaped cavitary mass | | | in right upper lobe measuring approximately 8.3 x 3.3 cm, image | | | 70/series 4 with hypermetabolic activity, maximum SUV 9.8. The | | | inferior component of the lesion measures approximately 3.8 x 3.7 cm, | | | image 80/series 4, measured approximately 4.7 x 4[address] dated | | | 08/07/2019. Interval decrease in wall thickness of the cavitary lesion | | | as compared to CT dated 08/07/2019 with decrease in air-fluid level. | | | Pulmonary emphysema. Mild diffuse bronchial wall thickening. No | | | pleural effusion or pneumothorax. Mediastinum: Left-sided aortic | | | arch. Aortic atherosclerosis including atherosclerosis of major | | | branch vessels. Moderate coronary artery atherosclerosis. Normal | | | cardiac size. Trace pericardial effusion. Normal thoracic | | | esophagus. Lymph Nodes: *Lower right paratracheal lymph node | | | measuring 8 mm, image 90/series 4 mild hypermetabolic activity, | | | maximum SUV 3.8, similar in size as compared to CT dated 11/29/2019. | | | *Right hilar lymph node measuring 8 mm, image 89/series 4, maximum SUV | | | 3.8, similar to CT dated 11/29/2019. Calcified right paratracheal | | | lymph nodes, probable sequela of remote granulomatous disease, | | | similar to prior CT. ABDOMEN: Liver and Biliary: Status post | | | cholecystectomy. No biliary dilation. No abnormal metabolic | | | activity in the liver. Pancreas, Spleen and Adrenals: No abnormal | | | metabolic activity in the pancreas, spleen,or adrenal glands. | | | Kidneys: No hydronephrosis or calculus. Fluid attenuation | | | hypodense lesion in interpolar right kidney measuring 3.9 cm, image | | | 170/series 4, probable cyst. Mild left renal cortical scarring. | | | Mildly dilated extrarenal left renal pelvis. ABDOMEN AND PELVIS: | | | Bowel: No small bowel or colonic dilatation. Moderate amount of | | | stool in colon. Physiologic metabolic activity present in bowel | | | loops. Vessels: Small fusiform infrarenal abdominal aortic aneurysm | | | with maximum diameter measuring approximately 2.9 x 2.8 cm, image | | | 182/series 4. Lymph Nodes: No pathologically enlarged or FDG-avid | | | lymph nodes. Peritoneum and Retroperitoneum: No intraperitoneal free | | | air, ascites or peritoneal mass. No significant retroperitoneal | | | abnormality. PELVIS: Genitourinary: No hydroureter. No ureteral | | | or bladder calculus. Small hydrocele bilaterally. Body Wall: | | | Small fat containing right inguinal hernia. Small fat containing | | | paraumbilical hernia. Bones: No acute fracture or vertebral end plate | | | destruction. No hypermetabolic or blastic lesion. | | + + + + + | Procedure Note | + + | Blake, [id number] - 12/18/2019 10:20 AM PDT EXAM DESCRIPTION | | PET/CT REGISTRY SKULL TO MID THIGH | | | | CLINICAL INFORMATION: | | Cavitary lesion and lung mass. Initial PET Scan | | | | COMPARISON: | | CT CHEST WO CONTRAST (11/29/2019); XR CHEST AP PORTABLE (08/15/2019); CT | | GUIDED STEREOTACTIC LOCALIZATION (08/15/2019); CTCHEST (08/07/2019); | | | | PROCEDURE: | | The patient was evaluated with a dedicated PET/CT scanner. Upon | | arrival, the patient's fasting fingerstick blood glucose level was 104 | | mg/dL. 13.4 mCi of 18-FDG was injected IV at 1248 hours, and 77 | | minutes post-injection CT attenuation-correction images and then | | subsequent PET images (attenuation-corrected and emission-only images) | | were obtained from base of skull to thigh. PET, noncontrast-attenuation | | CT, and fused PET/CT images were then reformatted and reviewed in the | | axial, sagittal, coronal and 3-D maximum intensity projection planes. | | | | FINDINGS: | | Mediastinal blood pool max SUV 2.8. | | Liver parenchyma max SUV 4.2. | | | | HEAD: | | Brain: The distribution of FDG activity in the visualized brain is | | physiologic. Physiological brain uptake limit sensitivity of the | | PET-CT for brain lesions. | | Paranasal Sinuses: No significant abnormalities to the extent seen. | | | | NECK: | | Neck: Increased tracer uptake in right pterygoid, glottis and strap | | muscles of the neck, image 157/series 607, probably physiological. | | Thyroid: Physiologic distribution of FDG activity in the thyroid gland. | | No abnormal focal or diffuse increased activity. | | | | CHEST: | | Lungs, Pleura and Airways: There is a large irregular shaped cavitary | | mass in right upper lobe measuring approximately 8.3 x 3.3 cm, image | | 70/series 4 with hypermetabolic activity, maximum SUV 9.8. The | | inferior component of the lesion measures approximately 3.8 x 3.7 cm, | | image 80/series 4, measured approximately 4.7 x [address] dated | | 08/07/2019. Interval decrease in wall thickness of the cavitary lesion | | as compared to CT dated 08/07/2019 with decrease in air-fluid level. | | | | Pulmonary emphysema. Mild diffuse bronchial wall thickening. No | | pleural effusion or pneumothorax. | | Mediastinum: Left-sided aortic arch. Aortic atherosclerosis including | | atherosclerosis of major branch vessels. Moderate coronary artery | | atherosclerosis. Normal cardiac size. Trace pericardial effusion. | | Normal thoracic esophagus. | | Lymph Nodes: | | *Lower right paratracheal lymph node measuring 8 mm, image 90/series 4 | | mild hypermetabolic activity, maximum SUV 3.8, similar in size as | | compared to CT dated 11/29/2019. | | *Right hilar lymph node measuring 8 mm, image 89/series 4, maximum SUV | | 3.8, similar to CT dated 11/29/2019. | | | | Calcified right paratracheal lymph nodes, probable sequela of remote | | granulomatous disease, similar to prior CT. | | | | | | ABDOMEN: | | Liver and Biliary: Status post cholecystectomy. No biliary dilation. | | No abnormal metabolic activity in the liver. | | Pancreas, Spleen and Adrenals: No abnormal metabolic activity in the | | pancreas, spleen,or adrenal glands. | | Kidneys: No hydronephrosis or calculus. | | | | Fluid attenuation hypodense lesion in interpolar right kidney measuring | | 3.9 cm, image 170/series 4, probable cyst. Mild left renal cortical | | scarring. Mildly dilated extrarenal left renal pelvis. | | | | ABDOMEN AND PELVIS: | | Bowel: No small bowel or colonic dilatation. Moderate amount of stool | | in colon. Physiologic metabolic activity present in bowel loops. | | Vessels: Small fusiform infrarenal abdominal aortic aneurysm with | | maximum diameter measuring approximately 2.9 x 2.8 cm, image 182/series | | 4. | | Lymph Nodes: No pathologically enlarged or FDG-avid lymph nodes. | | Peritoneum and Retroperitoneum: No intraperitoneal free air, ascites or | | peritoneal mass. No significant retroperitoneal abnormality. | | | | PELVIS: | | Genitourinary: No hydroureter. No ureteral or bladder calculus. | | | | Small hydrocele bilaterally. | | Body Wall: Small fat containing right inguinal hernia. Small fat | | containing paraumbilical hernia. | | Bones: No acute fracture or vertebral end plate destruction. No | | hypermetabolic or blastic lesion. | | | | IMPRESSION: | | Summary of Target Lesions: | | *Large irregular shaped cavitary lesion in right upper lobe measuring | | 8.3 x 3.3 cm with hypermetabolic activity, maximum SUV 9.8, similar to | | CT dated 11/29/2019. The lesion is decreased in size as compared to CT | | dated 08/07/2019. Interval decrease in wall thickness and decrease in | | air-fluid level as compared to CT dated 08/07/2019. | | *Small lower right paratracheal and right hilar lymph nodes with mild | | hypermetabolic activity, nonspecific, similar to CT dated 08/07/2019. | | | | | | Other PET/CT Findings: | | *COPD with pulmonary emphysema. | | *Moderate coronary artery atherosclerosis. | | *Small infrarenal abdominal aortic aneurysm measuring 2.9 x 2.8 cm. | | Recommend attention on follow-up imaging with ultrasound in 5 years. | | *Incidental findings as detailed above. | | | | | | Comments: | | *Large irregular shaped cavitary lesion in right upper lobe measuring | | 8.3 x 3.3 cm with hypermetabolic activity, similar to CT dated | | 11/29/2019. The lesion is decreased in size as compared to CT dated | | 08/07/2019. Interval decrease in wall thickness and decrease in | | air-fluid level as compared to CT dated 08/07/2019. The lesion could be | | infective/inflammatory related to known history of mycobacterium avium | | infection or fungal infection. Neoplastic lesion cannot be excluded. | | *Small lower right paratracheal and right hilar lymph nodes with mild | | hypermetabolic activity are nonspecific, likely reactive. Metastatic | | disease cannot be excluded. | | | | | | | | | | | | Final Report Signed by: Jam Bond, Caleb | | Sign Date/Time: 12/18/2019 10:16 AM | + + + +---------+ + + | Performing | Address | City/State/Zipcode | Phone Number | | Organization | | | | + +---------+ + + | [facility] | | | | + +---------+ + + POC Glucose (12/15/2019 12:42 PM PDT) + + + + + + | Component | Value | Ref Range | Performed | Pathologist | | | | | At | Signature | + + + + + + | Glucose, | 104 (H)Comment: Testing | 65 - 99 mg/dL | KR | | | POC | performed at [facility] [place] | | | | [address];[place] | | | | | | [address] | | | | + + + + + + + + | Specimen | + + | | + + + + + + + | Performing | Address | City/State/Zipcode | Phone Number | | Organization | | | | + + + + + | [facility] | [address] | [place] [address] | [phone] | + + + + + CT Chest wo Contrast (11/29/2019 1:42 PM PDT) + + | Specimen | + + | | + + + + + | Impressions | Performed At | + + + | Thick-walled cavitary lesion in the right upper lobe is essentially | [facility] | | unchanged in size with a slight increase in the degree of | | | cavitation/decrease in soft tissue component, possibly reflecting | | | treatment response. Final Report Signed by: Jam Arnold, | | | Yury Sign Date/Time: 11/30/2019 8:25 AM | | + + + + + + | Narrative | Performed At | + + + | CT CHEST WITHOUT CONTRAST CLINICAL INFORMATION: Pneumonia | [facility] | | COMPARISON: XR CHEST AP PORTABLE (08/15/2019); CT GUIDED | | | STEREOTACTIC LOCALIZATION (08/15/2019); CTCHEST (08/07/2019); | | | PROCEDURE: Axial images through the chest. Multiplanar | | | reconstructions. At least one of the following CT dose | | | optimization techniques were used: Automated exposure control; | | | Adjustment of mA and/or kV according to patient size; Use of | | | iterative reconstruction technique. FINDINGS: Lungs, Pleura and | | | Airways: A thick walled cavitary lesion in the right upper lobe is | | | centrally unchanged in size measuring 8.0 x 4.5 cm (3/), previously | | | 8.0 x 4.5 cm. There is mildly increased degree of cavitation | | | within this lesion. A few scattered sub 0.6 cm nodules are | | | unchanged. Mediastinum: No significant pericardial, great vessel or | | | esophageal abnormality. No mediastinal mass. Coronary | | | atherosclerosis. Lymph Nodes: No adenopathy. Upper Abdomen: No | | | significant abnormality in the visualized upper abdomen. BODY | | | WALL Soft Tissues: The soft tissues of the chest wall are | | | unremarkable. Bones: No acute fracture or vertebral end plate | | | destruction. No lytic or blastic lesion. | | + + + + + | Procedure Note | + + | Blake, [id number] - 11/30/2019 8:28 AM PDT | | CT CHEST WITHOUT CONTRAST | | | | CLINICAL INFORMATION: | | Pneumonia | | | | COMPARISON: | | XR CHEST AP PORTABLE (08/15/2019); CT GUIDED STEREOTACTIC LOCALIZATION | | (08/15/2019); CTCHEST (08/07/2019); | | | | PROCEDURE: | | Axial images through the chest. Multiplanar reconstructions. | | | | At least one of the following CT dose optimization techniques were | | used: Automated exposure control; Adjustment of mA and/or kV according | | to patient size; Use of iterative reconstruction technique. | | | | FINDINGS: | | Lungs, Pleura and Airways: A thick walled cavitary lesion in the right | | upper lobe is centrally unchanged in size measuring 8.0 x 4.5 cm | | (06/26), previously 8.0 x 4.5 cm. There is mildly increased degree of | | cavitation within this lesion. A few scattered sub 0.6 cm nodules are | | unchanged. | | Mediastinum: No significant pericardial, great vessel or esophageal | | abnormality. No mediastinal mass. Coronary atherosclerosis. | | Lymph Nodes: No adenopathy. | | Upper Abdomen: No significant abnormality in the visualized upper | | abdomen. | | | | BODY WALL | | Soft Tissues: The soft tissues of the chest wall are unremarkable. | | Bones: No acute fracture or vertebral end plate destruction. No lytic | | or blastic lesion. | | | | IMPRESSION: | | Thick-walled cavitary lesion in the right upper lobe is essentially | | unchanged in size with a slight increase in the degree of | | cavitation/decrease in soft tissue component, possibly reflecting | | treatment response. | | | | | | | | Final Report Signed by: Jam Arnold Michael | | Sign Date/Time: 11/30/2019 8:25 AM | + + + +---------+ + + | Performing | Address | City/State/Zipcode | Phone Number | | Organization | | | | + +---------+ + + | [facility] | | | | + +---------+ + + from Last 3 Months Insurance + +--------+ +--------+ +---------+--------+ | Payer | Benefi | Subscriber | Effect | Phone | Address | Type | | | t Plan | ID | brady | | | | | | / | | Dates | | | | | | Group | | | | | | + +--------+ +--------+ +---------+--------+ | MEDICARE | MEDICA | [id number] | 09/03/18 | [phone] | | Medica | | | RE | | 97-Pre | 5 | | re | | | PART A | | sent | | | | | | AND B | | | | | | + +--------+ +--------+ +---------+--------+ | [employer] | [employer] | [id number] | 07/08/19 | | | Medica | | | HEALTH | | 18-Pre | | | re | | | MDCR | | sent | | | | + +--------+ +--------+ +---------+--------+ + +--------+ +--------+ + + | Guarantor Name | Accoun | Relation to | Date | Phone | Billing Address | | | t Type | Patient | of | | | | | | | | | | + +--------+ +--------+ + + | Nazario Aguilar | Person | Self | [birth year] | [address] | | Franki Álvarez | thao/Benson | | 1951 | [phone] | [place] | | | [place] | | | [address] (Home) | [phone] | + +--------+ +--------+ + + | Nazario Aguilar | Person | Self | [birth year] | [address] | | Franki Sr. | al/Fam | | 1951 | [phone] | [place], [place] | | | [place] | | | [address] ([place]abb) | [phone] | + +--------+ +--------+ + + | Nazario Aguilar | Person | Self | [birth year] | [address] | | Franki Sr. | al/Fam | | 1951 | [phone] | [place], [place] | | | [place] | | | [address] ([place]) | [phone] | + +--------+ +--------+ + + Advance Directives + + + + + | Type | Date Recorded | Patient | Explanation | | | | Dish Washer | | + + + + + | Power of | | | | | Associate Account Manager | | | | + + + + + | Advance | 08/11/2019 9:42 | | | | Directive | AM | | | + + + + +
--- OUTSIDE RECORDS SUMMARY | ~2020-01-14 | XMS | Encounter Summary ---
Demographics + + + | Address | [address] | | | [place] [address] | + + + | Home Phone | | + + + | Preferred Language | Unknown | + + + | Marital Status | | + + + | Tenriism Affiliation | 1061 | + + + | Race | White | + + + | Ethnic Group | Not or | + + + Author + + + | Author | [facility] | | | and [place] | + + + | Organization | [facility] | | [...] #[place] | | | | | [address] | | + + + + + | Tanika Jean | ECON | Unknown | | + + + + + Care Team Providers + +------+ + | Care Post Exchange Manager Name | Role | Phone | + +------+ + PCP | Unavailable | + +------+ + Encounter Details +--------+ + + + + | Date | Type | Department | Care Team | Description | +--------+ + + + + | 02/24/ | Hospital | [facility] | [place], | | | 2010 | Encounter | MED CTR GENERIC OP | Ling Frazier MD | | | | | CONV DEPT [address] | | | | | | [place], | | | | | | [place] [address] | | | | | | [phone] | | | +--------+ + + + [...] documented as of this encounter Miscellaneous Notes Pulmonary Function - Ling Lowe MD - 02/24/2011 11:09 AM PSTDATE: 02/24/2011 PULMONARY FUNCTION TEST PRIMARY CARE PROVIDER: Jose Angel Reina MD. SPIROMETRY: Prior to administration of inhaled bronchodilator, FVC was mildly reduced at 3. 25 L or 72 % of predicted. FEV1 was moderately reduced at 1.51 L or 43% of predicted. FEV1- FVC ratio was reduced at 47%. After administration of inhaled bronchodilator, FVC increased by 15% to 3.74 L or 83% of pre dicted. FEV1 increased by 21% to 1.83 L or 52% of predicted . FEV1-FVC ratio remained reduced at 49%. LUNG VOLUMES: Total lung capacity was elevated at 8.32 L or 123% of predicted. Residual vol ume was ma rkedly elevated at 5.07 L or 228% of predicted. RV-TLC ratio was also markedly e levated at the 61%, o r 183% of predicted. DIFFUSION CAPACITY: Diffusion capacity not corrected for a measured hemoglobin was severely reduced a t 12.6 mL per mmHg/min or 38% of predicted. IMPRESSION: Spirometry is consistent with severe obstructive lung disease prior to administ ration of inhaled bronchodilator and moderately severe obstructive lung disease after admin istration of inhaled bronchodilator. There was a significant response to inhaled bronchodil ator. Lung volume testing is c onsistent with obstructive lung disease. Diffusion capacity is severely reduced and was not corrected for a measured hemoglobin. DICTATED BY: Ling Lowe MD Pulmonary Medicine JOB #: [id number] EXT JOB #:[id number] cc: Peter Reina MD <Electronically Signed by Ling Lowe MD> 03/05/11 1544 documented in this encounter Plan of Treatment +--------+---------+ + + + | Date | Type | Specialty | Care Team | Description | +--------+---------+ + + + | 01/28/ | Office | Infectious Diseases | Sana Dawson | | | 2020 | Visit | | Jazmin Stringer MD | | | | | | [address] | | | | | | [place] [address] | | | | | | [phone] | | | | | | | | +--------+---------+ + + + | 04/19/ | Office | Pulmonology | Alfonso Wallace MD | | | 2020 | Visit | | [address] | | | | | | [place] | | | | | | [address] | | | | | | | | +--------+---------+ + + + documented as of this encounter Visit Diagnoses Not on filedocumented in this encounter"
--- OUTSIDE RECORDS SUMMARY | ~2020-01-14 | XMS | Encounter Summary ---
Demographics + + + | Address | [address] | | | [place] [address] | + + + | Home Phone | | + + + | Preferred Language | Unknown | + + + | Marital Status | | + + + | Christianity Affiliation | 1061 | + + + [...] #[address] | | | | | [address] | | + + + + + | Tanika Jean | ECON | Unknown | | + + + + + Care Team Providers + +------+ + | Care Package Checker Name | Role | Phone | + [...] | MED CTR EXTERNAL | MD Jered [address] | | | | | IMAGING [address] | Lisa Camejo | | | | | [address] [facility] | [place] [address] | | | | | [place] [address] | | | | | | [phone] | | | +--------+ + + + [...] | | | | | [place] [address] | | | | | | [phone] | | | | | | | | +--------+---------+ + + + | 04/19/ | Office | Pulmonology | Alfonso Wallace MD | | | 2020 | Visit | | [address] | | | | | | [place] | | | | | | [id number] | | | | | | | | +--------+---------+ + + + documented as of this encounter Procedures + +--------+ + + + | Procedure Name | Priori | Date/Time | Associated Diagnosis | Comments | | | ty | | | | + +--------+ + + + | XR CHEST 2 VIEWS | Routin | 05/04/2016 | | Results for this | | | e | 12:50 PM | | procedure are in the | | | | PST | | results section. | + +--------+ + + + documented in this encounter Results XR Chest 2 VW (05/04/2016 12:50 PM PST) + + | Specimen | + + | | + + + + + | Narrative | Performed At | + + + | External films for comparison only - no result from [facility]. | [facility] | + + + + +---------+ + + | Performing | Address | City/State/Zipcode | Phone Number | | Organization | | | | + +---------+ + + | [facility] | | | | + +---------+ + + documented in this encounter Visit Diagnoses Not on filedocumented in this encounter"
--- OUTSIDE RECORDS SUMMARY | ~2020-01-14 | XMS | Encounter Summary ---
Demographics + + + | Address | [address] | | | [place] [address] | + + + | Home Phone | | + + + | Preferred Language | Unknown | + + + | Marital Status | | + + + | Islam Affiliation | 1061 | + + + | Race | White | + + + | Ethnic Group | Not or | + + + Author + + + | Author | [facility] | | | and [place] | + + + | Organization | [facility] | | | and [place] | + + + | Address | Unknown | + + + | Phone | Unavailable | + + + Support + + + + + | Name | Relationship | Address | Phone | + + + + + | Palak Aguilar | ECON | [address] | | | | | [address] | | + + + + + | Tanika Jean | ECON | Unknown | | + + + + + Care Team Providers + +------+ + | Care Motor Setter Name | Role | Phone | + +------+ + | Jose Angel Reina MD | PCP | | + +------+ + Reason for Visit + +--------+ + | Reason | Onset | Comments | | | Date | | + +--------+ + | Medication Refill | 06/16/ | | | | 2015 | | + +--------+ + Encounter Details +--------+--------+ + + + | Date | Type | Department | Care Team | Description | +--------+--------+ + + + | 06/16/ | Refill | [facility] | Chrissy, | Medication Refill | | 2015 | | PULMONARY [address] | Ling Frazier MD | | | | | [place], | | | | | | [place] [address] | | | | | | [phone] | | | +--------+--------+ + + + [...] MD | | | | | | [address] | | | | | | [facility] [address] | | | | | | [phone] | | | | | | | | +--------+---------+ + + + | 04/19/ | Office | Pulmonology | Alfonso Wallace MD | | | 2020 | Visit | | [address] | | | | | | [place] | | | | | | [address] | | | | | | | | +--------+---------+ + + + documented as of this encounter Visit Diagnoses + + | Diagnosis | + + | Chronic obstructive pulmonary disease, unspecified COPD type (HCC) - Primary | + + documented in this encounter
--- OUTSIDE RECORDS SUMMARY | ~2020-01-14 | XMS | Encounter Summary ---
Demographics + + + | Address | [address] | | | [place] [address] | + + + | Home Phone [...] Author + + + | Author | [facility] | + + + | Organization | [facility] | + + + | Address | Unknown | + + + | Phone | Unavailable | + + + Care Team Providers + +------+ + | Care Patient Scheduling Coordinator Name | Role | Phone | + [...] at | | | | | | [facility] | | | | | | and Healing [address] | | | | | | [address] [facility] | | | | | | Health and Healing, | | | | | | [address], | | | | | | Floor [place], [place] | | | | | | [address] | | | | | | [phone] | | | +--------+ + + + [...]
--- OUTSIDE RECORDS SUMMARY | ~2020-01-14 | XMS | Encounter Summary ---
Demographics + + + | Address | [address] | | | [place] [address] | + + + | Home Phone [...] #[place] | | | | | [address] | | + + + + + | Tanika Jean | ECON | Unknown | | + + + + + Care Team Providers + +------+ + | Care Robotic Machine Operator Name | Role | Phone | + +------+ + | Jose Angel Reina MD | PCP | | + +------+ + Reason for Visit + +--------+ + | Reason | Onset | Comments | | | Date | | + +--------+ + | Appointment | 05/29/ | | | | 2016 | | + +--------+ + Encounter Details +--------+ + + + + | Date | Type | Department | Care Team | Description | +--------+ + + + + | 05/29/ | Telephone | [facility] | [place], | Appointment | | 2016 | | MED CTR PULMONARY | Ling Frazier MD | | | | | FUNCTION [address] | | | | | | [place], | | | | | | [place] [address] | | | | | | [phone] | | | +--------+ + + + [...] this encounter Miscellaneous Notes Telephone Encounter - Carmita Ortiz - 05/29/2016 2:41 PM PSTLeft message on [address] with the [facility] conveyor monitor. Electronically signed by Carmita Ortiz at 017 2:43 PM PSTdocumented in this encounter Plan of Treatment +--------+---------+ + + + | Date | Type | Specialty | Care Team | Description | +--------+---------+ + + + | 01/28/ | Office | Infectious Diseases | Sana Dawson | | | 2019 | Visit | | Jazmin Stringer MD | | | | | | [address] | | | | | | [place] [address] | | | | | | [phone] | | | | | | | | +--------+---------+ + + + | 04/19/ | Office | Pulmonology | Alfonso Wallace MD | | | 2020 | Visit | | [address] | | | | | | [place] | | | | | | [address] | | | | | | | | +--------+---------+ + + + documented as of this encounter Visit Diagnoses Not on filedocumented in this encounter"
--- OUTSIDE RECORDS SUMMARY | ~2020-01-14 | XMS | Encounter Summary ---
Demographics + + + | Address | [address] | | | [place] [address] | + + + | Home Phone | | + + + | Preferred Language | Unknown | + + + | Marital Status | | + + + | Adventist Affiliation | 1061 | + + + | Race | White | + + + | Ethnic Group | Not or | + + + Author + + + | Author | [facility] | | | and [place] | + + + | Organization | [facility] | | | and [place] | + + + | Address | Unknown | + + + | Phone | Unavailable | + + + Support + + + + + | Name | Relationship | Address | Phone | + + + + + | Palak Aguilar | ECON | [id number] | | | | | [address] | | + + + + + | Tanika Jean | ECON | Unknown | | + + + + + Care Team Providers + +------+ + | Care Respiratory Supervisor Name | Role | Phone | + +------+ + | Nuzhat Orantes MD | PCP | | + +------+ + Reason for Visit +---------+--------+ + | Reason | Onset | Comments | | | Date | | +---------+--------+ + | Results | 08/23/ | | | | 2019 | | +---------+--------+ + Encounter Details +--------+ + + + + | Date | Type | Department | Care Team | Description | +--------+ + + + + | 08/23/ | Telephone | [facility] | Alfonso Wallace MD | Results | | 2019 | | PULMONOLOGY [address] | | | | | [address] | [place] [facility] [place] | | | | | [place] | [address] | | | | | [address] | | | | | | [phone] | | | +--------+ + + + [...] this encounter Miscellaneous Notes Telephone Encounter - Aidee Mitchell RN - 08/24/2019 11:32 AM PDTReturned Nazario's call. No voi ce mail set up. Unable to leave message elephone Encounter - Tran Brown - 08/24/2019 11:22 AM PDTJohn, i s calling regarding Results and would like a call back. Additional Call Details: Patient is requesting call back with test results. He is also wan ting to know when a follow up is needed If this is a symptom based call, was patient offered triage? Not Applicable If this is a symptom based call and you were unable to immediately transfer the call to a jarred herrera gettering filament machine operator was caller made aware that if at [...] | | | | | [place] [address] | | | | | | [phone] | | | | | | | | +--------+---------+ + + + | 04/19/ | Office | Pulmonology | Alfonso Wallace MD | | | 2020 | Visit | | [address] | | | | | | [place] | | | | | | [id number] | | | | | | | | +--------+---------+ + + + documented as of this encounter Visit Diagnoses Not on filedocumented in this encounter"
--- OUTSIDE RECORDS SUMMARY | ~2020-01-14 | XMS | Encounter Summary ---
Demographics + + + | Address | [address] | | | [place] [address] | + + + | Home Phone | | + + + | Preferred Language | Unknown | + + + | Marital Status | | + + + | Judaism Affiliation | 1061 | + + + | Race | White | + + + | Ethnic Group | Not or | + + + Author + + + | Author | [facility] | | | and [place] | + + + | Organization | [facility] | | | and [place] | + + + | Address | Unknown | + + + | Phone | Unavailable | + + + Support + + + + + | Name | Relationship | Address | Phone | + + + + + | Palak Aguilar | ECON | [address] | | | | | [address] | | + + + + + | Tanika Jean | ECON | Unknown | | + + + + + Care Team Providers + +------+ + | Care Nitrator Operator Name | Role | Phone | + +------+ + | Jose Angel Reina MD | PCP | | + +------+ + Reason for Visit + +--------+ + | Reason | Onset | Comments | | | Date | | + +--------+ + | Appointment | 03/05/ | | | | 2015 | | + +--------+ + Encounter Details +--------+ + + + + | Date | Type | Department | Care Team | Description | +--------+ + + + + | 03/05/ | Telephone | [facility] | [place], | Appointment | | 2015 | | MED CTR PULMONARY | Ling Frazier MD | | | | | [address] | | | | | | [place], | | | | | | [place] [address] | | | | | | [phone] | | | +--------+ + + + [...] Notes Telephone Encounter - Carmita Ortiz - 03/05/2016 2:21 PM PSTSpoke with Palak to see if 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 doc umented in this encounter Plan of Treatment [...] | | | | | [place] [address] | | | | | | [phone] | | | | | | | [...]
--- OUTSIDE RECORDS SUMMARY | ~2020-01-14 | XMS | Encounter Summary ---
Demographics + + + | Address | [address] | | | [place] [address] | + + + | Home Phone | | + + + | Preferred Language | Unknown | + + + | Marital Status | | + + + | Sikh Affiliation | 1061 | + + + | Race | White | + + + | Ethnic Group | Not or | + + + Author + + + | Author | [facility] | | | and [place] | + + + | Organization | [facility] | | | and [place] | + + + | Address | Unknown | + + + | Phone | Unavailable | + + + Support + + + + + | Name | Relationship | Address | Phone | + + + + + | Palak Aguilar | ECON | [address] | | | | | [address] | | + + + + + | Tanika Jean | ECON | Unknown | | + + + + + Care Team Providers + +------+ + | Care Sales Enablement Lead Name | Role | Phone | + [...] | | | | | [address] [facility] | [place] [address] | | | | | [place] [address] | | | | | | [phone] | | | +--------+ + + + [...] | | | | | [place] [address] | | | | | | [phone] | | | | | | | | +--------+---------+ + + + | 04/19/ | Office | Pulmonology | Alfonso Wallace MD | | | 2020 | Visit | | [address] | | | | | | [place] | | | | | | [phone] | | | | | | | | +--------+---------+ + + + documented as of this encounter Procedures + +--------+ + + + | Procedure Name | Priori | Date/Time | Associated Diagnosis | Comments | | | ty | | | | + +--------+ + + + | XR CHEST 1 VIEW | Routin | 02/24/2016 | | Results for this | | | e | 12:35 AM | | procedure are in the | | | | PST | | results section. | + +--------+ + + + documented in this encounter Results XR Chest 1 Vw (02/24/2016 12:35 AM PST) + + | Specimen | + + | | + + + + + | Narrative | Performed At | + + + | External films for comparison only - no result from [place]. | [facility] | + + + + +---------+ + + | Performing | Address | City/State/Zipcode | Phone Number | | Organization | | | | + +---------+ + + | [facility] | | | | + +---------+ + + documented in this encounter Visit Diagnoses Not on filedocumented in this encounter"
--- OUTSIDE RECORDS SUMMARY | ~2020-01-14 | XMS | Encounter Summary ---
Demographics + + + | Address | [address] | | | [place] [address] | + + + | Home Phone | | + + + | Preferred Language | Unknown | + + + | Marital Status | | + + + | Judaism Affiliation | 1061 | + + + | Race | White | + + + | Ethnic Group | Not or | + + + Author + + + | Author | [facility] | | | and [place] | + + + | Organization | [facility] | | | and [place] | + + + | Address | Unknown | + + + | Phone | Unavailable | + + + Support + + + + + | Name | Relationship | Address | Phone | + + + + + | Palak Aguilar | ECON | [id number] | | | | | [address] | | + + + + + | Tanika Jean | ECON | Unknown | | + + + + + Care Team Providers + +------+ + | Care Manager Roofing Name | Role | Phone | + [...] Frazier MD | | | | | [place], | | | | | | [place] [address] | | | | | | [phone] | | | +--------+--------+ + + + [...] | | | | | [place] [address] | | | | | | [phone] | | | | | | | | +--------+---------+ + + + | 04/19/ | Office | Pulmonology | Alfonso Wallace MD | | | 2020 | Visit | | [address] | | | | | | [place] | | | | | | [phone] | | | | | | | [...]
--- OUTSIDE RECORDS SUMMARY | ~2020-01-14 | XMS | Encounter Summary ---
Demographics + + + | Address | [address] | | | [place] [address] | + + + | Home Phone | | + + + | Preferred Language | Unknown | + + + | Marital Status | | + + + | Presybeterian Affiliation | 1061 | + + + | Race | White | + + + | Ethnic Group | Not or | + + + Author + + + | Author | [facility] | | | and [place] | + + + | Organization | [facility] | | | and [place] | + + + | Address | Unknown | + + + | Phone | Unavailable | + + + Support + + + + + | Name | Relationship | Address | Phone | + + + + + | Palak Aguilar | ECON | [address] | | | | | [address] | | + + + + + | Tanika Jean | ECON | Unknown | | + + + + + Care Team Providers + +------+ + | Care Filter Assembler Name | Role | Phone | + +------+ + | Jose Angel Reina MD | PCP | | + +------+ + Reason for Visit + +--------+ + | Reason | Onset | Comments | | | Date | | + +--------+ + | Appointment | 01/02/ | | | | 2015 | | + +--------+ + Encounter Details +--------+ + + + + | Date | Type | Department | Care Team | Description | +--------+ + + + + | 01/02/ | Telephone | [facility] | [place], | Appointment | | 2015 | | PULMONARY [address] | Ling Frazier MD | | | | | [place], | | | | | | [place] [address] | | | | | | [phone] | | | +--------+ + + + [...] Notes Telephone Encounter - Carmita Ortiz - 01/03/2016 11:56 AM PDTSpoke with Palak haile and explained that Dr. Wallace is not coming to [place] to see Dr. Lowe's patients. Teja lindo will need to follow up with his primary care physician or have them refer him to the [facility]. documented in this encounter Plan of Treatment +--------+---------+ + + + | Date | Type | Specialty | Care Team | Description | +--------+---------+ + + + | 01/28/ | Office | Infectious Diseases | Sana Dawson | | | 2019 | Visit | | Jazmin Stringer MD | | | | | | [address] | | | | | | [place] [address] | | | | | | [phone] | | | | | | | | +--------+---------+ + + + | 04/19/ | Office | Pulmonology | Alfonso Wallace MD | | | 2020 | Visit | | [address] | | | | | | [place] | | | | | | [phone] | | | | | | | | +--------+---------+ + + + documented as of this encounter Visit Diagnoses Not on filedocumented in this encounter"
--- OUTSIDE RECORDS SUMMARY | ~2020-01-14 | XMS | Encounter Summary ---
Demographics + + + | Address | [address] | | | [place] [address] | + + + | Home Phone | | + + + | Preferred Language | Unknown | + + + | Marital Status | | + + + | Anglican Affiliation | 1061 | + + + | Race | White | + + + | Ethnic Group | Not or | + + + Author + + + | Author | [facility] | | | and [place] | + + + | Organization | [facility] | | | and [place] | + + + | Address | Unknown | + + + | Phone | Unavailable | + + + Support + + + + + | Name | Relationship | Address | Phone | + + + + + | Palak Aguilar | ECON | [address] | | | | | [address] | | + + + + + | Tanika Jean | ECON | Unknown | | + + + + + Care Team Providers + +------+ + | Care Supervisor Rolling Room Name | Role | Phone | + +------+ + | Jose Angel Reina MD | PCP | | + +------+ + Reason for Visit + +--------+ + | Reason | Onset | Comments | | | Date | | + +--------+ + | Medication Refill | 09/11/ | | | | 2014 | | + +--------+ + Encounter Details +--------+--------+ + + + | Date | Type | Department | Care Team | Description | +--------+--------+ + + + | 09/11/ | Refill | [facility] [place] | [place], | Medication Refill | | 2014 | | PULMONARY [address] | Ling Frazier MD | | | | | [place], | | | | | | [place] [address] | | | | | | [phone] | | | +--------+--------+ + + + [...] documented as of this encounter Miscellaneous Notes Addendum Note - Jennifer Benito RN - 09/11/2014 11:47 AM PDT Addended by: TANNER BENITO on: 09/11/2014 11:47 Modules accepted[facility]ito [facility] - 09/11/2014 11:42 AM PDTJohn called asking about the Spiriva as well. An authorization request for the Spiriva was in our stack as well. It was at first t hought to be a prior auth request but the pharmacy called and pointed out that it was just a refill request. The script is going to be sent in with 5 refills as well.Electronically si gned by Jennifer Benito RN at 09/11/2014 11:45 AM PDTTelephone Encounter - Jennifer Benito RN - 09/11/2014 8:45 AM PDTReceived faxed refill request from [facility]. Patien t very angry that no extra refills have been given for last several refill requests. No reas on seen in chart so 5 refills given with this refill. Last refill: 08/10/14 . Number given 30, Refills given 0 at last refill Last office visit: 06/14/14 Next office visit: 09/24/14 documented in this encounter Plan of Treatment [...] | | | | | [place] [address] | | | | | | [phone] | | | | | | | | +--------+---------+ + + + | 04/19/ | Office | Pulmonology | Alfonso Wallace MD | | | 2020 | Visit | | [address] | | | | | | [place] | | | | | | [address] | | | | | | | | +--------+---------+ + + + documented as of this encounter Visit Diagnoses + + | Diagnosis | + + | COPD (chronic obstructive pulmonary disease) (HCC) - Primary Chronic airway | | obstruction, not elsewhere classified | + + | 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
--- OUTSIDE RECORDS SUMMARY | ~2020-01-14 | XMS | Encounter Summary ---
Demographics + + + | Address | [address] | | | [place] [address] | + + + | Home Phone | | + + + | Preferred Language | Unknown | + + + | Marital Status | | + + + | Zoroastrianism Affiliation | 1061 | + + + | Race | White | + + + | Ethnic Group | Not or | + + + Author + + + | Author | Merged With [facility] | | | and [place] | + + + | Organization | Merged With [facility] | | | and [place] | + + + | Address | Unknown | + + + | Phone | Unavailable | + + + Support + + + + + | Name | Relationship | Address | Phone | + + + + + | Palak Daugherty | ECON | [id number] [place] | | | | | [address] | | + + + + + | Tanika Jean | ECON | Unknown | | + + + + + Care Team Providers + +------+ + | Care Systems Auditor Name | Role | Phone | [...] | | | | presenting | | [facility] | | | | | hazards to | | [address] Phone: | | | | | health | | [phone] | | | | | Centrilobula | | Fax: | | | | | r emphysema | | [phone] | | | | | ([facility]) | | | | | | | Procedures | | | | | | | BRONCHOSCOPY | | | | | | | | | | | | | | ELECTROMAGNE | | | | | | | TIC | | | | | | | NAVIGATION | | | | | | | [[id number]] | | | +--------+--------+ + + + + Encounter Details +--------+ + + + + | Date | Type | Department | Care Team | Description | +--------+ + + + + | 08/14/ | Hospital | [facility] | Alfonso Wallace MD | Personal history of | | 2020 | Encounter | [facility] | [address] | tobacco use, | | | | [address] | [address] [place], [place] | presenting hazards | | | | [address] | [id number] | to health; | | | | [place], [place] | | Centrilobular | | | | [address] | | emphysema (HCC); | | | | [phone] | | Personal history of | | | | | | tobacco use, | | | | | | presenting hazards | | | | | | to health; | | | | | | Centrilobular | | | | | | emphysema (HCC) | +--------+ + + + + Social [...] TABLET BY | 30 | 11 | // | | | (DALIRESP) 500 mcg | [...] + + documented as of this encounter H&P Notes Alfonso Wallace MD - 08/15/2019 7:24 AM PDT [facility]: Pulmonology Pre-Operative History & Physical DIAGNOSIS: Lung mass INDICATION: Diagnostic PROCEDURE: Navigation bronchoscopy CHIEF COMPLAINT: Abnormal ct of the chest History Obtained From: History obtained from the patient. HISTORY OF PRESENT ILLNESS The patient is 69 y.o. male with significant past medical history of copd who presents wit h abnormal CT of the chest . Please see the clinic notes for details . REVIEW OF SYSTEMS Review of Systems Constitutional: Negative. HENT: Negative. Eyes: Negative. Respiratory: Positive for cough. Cardiovascular: Negative. Gastrointestinal: Negative. Musculoskeletal: Negative. Skin: Negative. Neurological: Negative. Endo/Heme/Allergies: Negative. Psychiatric/Behavioral: Negative. History: Past Medical History: Diagnosis Date Asthma Ataxia Colon polyps 2014 due for repeat early 2017 COPD (chronic obstructive pulmonary disease) (HCC) Diabetes mellitus (HCC) GARCÍA (dyspnea on exertion) Erectile dysfunction Facet arthritis of lumbar region Hernia, hiatal HTN (hypertension) Hyperlipidemia Kidney stone PLMD (periodic limb movement disorder) Pneumonia Restless legs syndrome Rotator cuff arthropathy Seasonal allergies Seizure disorder (HCC) Past Surgical History: Procedure Laterality Date CHOLECYSTECTOMY COLONOSCOPY 2014 dysplastic polyps, Dr. Che EYE SURGERY HERNIA REPAIR TONSILLECTOMY Social History Socioeconomic History Marital status: Spouse name: Not on file Number of children: Not on file Years of education: Not on file Highest education level: Not on file Occupational History Not on file Social Needs Financial resource strain: Not on file Food insecurity: Worry: Not on file Inability: Not on file Transportation needs: Medical: Not on file Non-medical: Not on file Tobacco Use Smoking status: Current Every Day Smoker Packs/day: 2.00 Years: 46.00 Pack years: 92.00 Types: Cigarettes Start date: 1963 Smokeless tobacco: Never Used Substance and Sexual Activity Alcohol use: No Alcohol/week: 0.0 standard drinks Drug use: No Sexual activity: Not on file Lifestyle Physical activity: Days per week: Not on file Minutes per session: Not on file Stress: Not on file Relationships Social connections: Talks on phone: Not on file Gets together: Not on file Attends pentecostal service: Not on file Active member of club or organization: Not on file Attends meetings of clubs or organizations: Not on file Relationship status: Not on file Intimate partner violence: Fear of current or ex partner: Not on file Emotionally abused: Not on file Physically abused: Not on file Forced sexual activity: Not on file Other Topics Concern Not on file Social History Narrative No known toxic chemical exposures. No known asbestos exposure. No known TB exposure. Has d ogs and cat in home. Family History Problem Relation Age of Onset Breast cancer Mother Heart disease Mother Arthritis Mother Stroke Father Cancer Brother Allergies: Allergies Allergen Reactions Levofloxacin Itching Varenicline Other (See Comments) Dizziness Current Medications: No current facility-administered medications on file prior to encounter. Current Outpatient Medications on File Prior to Encounter Medication Sig Dispense Refill acetaminophen (TYLENOL) 650 MG CR tablet Take 1,300 mg by mouth Daily. albuterol-ipratropium (DUONEB) 2.5-0.5 mg/3 mL SOLN Inhale 3 mLs into the lungs Every 4 hours. aspirin 325 mg tablet Take 325 mg by mouth Daily. carBAMazepine (EPITOL) 200 mg tablet Take 200 mg by mouth 4 times daily. Cyanocobalamin (B-12) 1000 MCG CAPS Take 1,000 mcg by mouth Daily. fluticasone (FLONASE) 50 mcg/nasal spray 1 spray by Nasal route Daily. 16 g 11 fluticasone-salmeterol (ADVAIR DISKUS) 500-50 mcg/puff diskus inhaler Inhale 1 puff int o the lungs 2 times daily. 1 each 11 losartan (COZAAR) 25 mg tablet Take 1 tablet by mouth Daily. 30 tablet 0 metFORMIN (GLUCOPHAGE) 500 mg tablet Take 500 mg by mouth 2 times daily. nicotine (NICOTROL) 10 mg inhaler Inhale 1 Cartridge into the lungs as needed for Smoki ng cessation. oxygen Inhale 2 L into the lungs continuous. roflumilast (DALIRESP) 500 mcg tablet TAKE ONE TABLET BY MOUTH ONCE DAILY 30 tablet 11 rOPINIrole (REQUIP) 1 mg tablet TAKE ONE TABLET BY MOUTH ONCE DAILY AT BEDTIME 30 table t 3 rosuvastatin (CRESTOR) 20 mg tablet Take 20 mg by mouth nightly. senna (SENOKOT) 8.6 MG TABS Take 2 tablets by mouth Daily. sildenafil (VIAGRA) 100 MG tablet Take 100 mg by mouth as needed. VENTOLIN HFA 108 (90 BASE) MCG/ACT inhaler Inhale 2 puffs into the lungs every 6 hours as needed for Wheezing. PHYSICAL EXAM Vital Signs: Vitals: 08/15/19 0633 BP: 105/61 Pulse: 99 Resp: 20 Temp: 36.4 C (97.5 F) There were no vitals taken for this visit. Physical Exam Physical Exam Constitutional: He is oriented to person, place, and time and well-developed, well-nourishe d, and in no distress. HENT: Head: Normocephalic and atraumatic. Mouth/Throat: No oropharyngeal exudate. Eyes: Pupils are equal, round, and reactive to light. Conjunctivae and EOM are normal. Neck: Normal range of motion. Neck supple. No JVD present. No tracheal deviation present. Cardiovascular: Normal rate, regular rhythm and normal heart sounds. No murmur heard. Pulmonary/Chest: Effort normal and breath sounds normal. No respiratory distress. He has no wheezes. He has no rales. He exhibits no tenderness. Musculoskeletal: Normal range of motion. General: No edema. Neurological: He is alert and oriented to person, place, and time. No cranial nerve deficit . Gait normal. Coordination abnormal. tremors Skin: Skin is warm. Psychiatric: Affect and judgment normal. DATA Reviewed PROBLEM LIST Patient Active Problem List Diagnosis Date Noted POA Personal history of tobacco use, presenting hazards to health 08/10/2019 Unknown Centrilobular emphysema 08/10/2019 Unknown Allergic rhinitis 09/24/2014 Unknown Rotator cuff arthropathy Unknown Ataxia 09/27/2013 Unknown Nocturnal hypoxemia due to emphysema 06/15/2013 Unknown Lumbar facet arthropathy 04/27/2013 Unknown Lumbalgia 04/27/2013 Unknown Tobacco abuse Unknown COPD (chronic obstructive pulmonary disease) Unknown DM type 2 (diabetes mellitus, type 2) Unknown Hypertension Unknown DYSLIPIDEMIA Unknown ANEMIA Unknown Periodic limb movement disorder 07/20/2011 Unknown ASSESSMENT & PLAN 1. Patient is a 69 y.o. male with above specified procedure planned. 2. Procedure options, risks, benefits and alternatives reviewed with patient who express (es) understanding. Any and all questions were answered to their satisfaction. Primary Care Physician: No Physician on file Alfonso Wallace MD 08/15/2019 documented in this enco unter Miscellaneous Notes D-C Instructions Provation - Alfonso Wallace MD - 08/15/2019 6:55 AM PDTPatient Instruction s After Bronchoscopy Patient: Kevin Daugherty Procedure Date: Thursday, August 15, 2019 Attending MD: Alfonso Wallace; This Bronchoscopy was performed on Thursday, August 15, 2019. My impressions and recommendations are as follows: Impressions : - The airway examination was normal. - Electromagnetic navigation bronchoscopy was performed. - Bronchoalveolar lavage was performed. - Transbronchial lung biopsies were performed. - Transbronchial brushings were obtained. - A transbronchial needle aspiration was performed. Recommendations : - Await test results. You have received sedation for your procedure. You may feel normal, but your reflexes and memory are impaired. The precautions to take for 12- 24 hours after receiving sedation include: Do not drive a car. Do not make major decisions or sign legal documents. Do no activities requiring skilled physical coordination or hand-eye coordination. Alcohol should be avoided for a period of 24 hours. It is recommended that someone be available to assist you for 24 hours. It is normal for your throat to be sore after the exam. Gargling with warm salt water, taking ice chips, or throat lozenges may help relieve any discomfort. Call your physician if any of the following occur: Unexplained fever Neck or chest pain Coughing up blood Difficulty swallowing New onset of shortness of breath If you feel you need immediate attention and are unable to contact your doctor, go to an Emergency Department or the closest emergency facility. Alfonso Wallace, 08/15/2019 8:55:40 AM This report has been signed electronically.Electronically signed by Alfonso Wallace MD at 03/2020 8:56 AM PDTdocumented in this encounter Plan of Treatment +--------+---------+ + + + | Date | Type | Specialty | Care Team | Description | +--------+---------+ + + + | 01/28/ | Office | Infectious Diseases | Sana Dawson | | 2019 | Visit | | Jazmin Stringer MD | | | | | | [address] | | | | | | [place] [address] | | | | | | [phone] | | | | | | | | +--------+---------+ + + + | 04/19/ | Office | Pulmonology | Alfonso Wallace MD | | | 2020 | Visit | | [address] | | | | | | [place] | | | | | | [id number] | | | | | | | [...] + +--------+ + + + | CULTURE, AFB SMEAR | Routin | 08/15/2019 | | Results for this | | | e | 8:46 AM | | procedure are in the | | | | PDT | | results section. | + +--------+ + + + | AFB, SMEAR ONLY | Routin | 08/15/2019 | | [...] | + +--------+ + + + | NEAL, FUNGUS | Routin | 08/15/2019 | | [...] section. | + +--------+ +---+ + | RI BRNCHSC INCL | Routin | 08/15/2019 | [...] + + | Blake, Rad Results In 08/15/2019 9:55 AM PDT | | CHEST [...] + + + + + + | Steffen rivera | Negative | | [facility] | | | | | | LABORATORY | | + + + + + + | Other | NAIDNComment: No | | [facility] | | | | additional | | LABORATORY | | | | identification testing | | | | | | is necessary.Testing | | | | | | performed at [facility], | | | | | | [address], [address], | | | | | | [facility] [address] | | | | + + + + + + + + | Specimen | + + | | + + + + + + + | Performing | Address | City/State/Zipcode | Phone Number | | Organization | | | | + + + + + | [facility] | [address] | [place] [address] | [phone] | + + + + + CULTURE, FUNGUS (REFLEX RESULTS ONLY) (08/15/2019 8:46 AM PDT) + + + + + + | Component | Value | Ref Range | Performed | Pathologist | | | | | At | Signature | + + + + + + | Result 1 | Michelle | | [facility] | | | | parapsilosisComment: | | LABORATORY | | | | Light growthTesting | | | | | | performed by [facility], | | | | | | [address], | | | | | | [place] [address] | | | | + + + + + + + + | Specimen | + + | | + + + + + + + | Performing | Address | City/State/Zipcode | Phone Number | | Organization | | | | + + + + + | [facility] | [address] | [place] [address] | [phone] | + + + + + Neal, [...] | | LABORATORY | | | | [facility], [address] | | | | | | [place] | | | | | | [address] | | | | + + + [...] AFB CULTURE | Positive (A)Comment: | | [facility] | | | | Acid-fast bacilli have [...] | | | | | performed at [facility], | | | | | | [address], [address], | | | | | | [facility] [address] | | | | + + + + + + + + | Specimen | + + | | + + + + + + + | Performing | Address | City/State/Zipcode | Phone Number | | Organization | | | | + + + + + | [facility] | [address] | [place] [address] | [phone] | + + + + + uLis WHITE (08/15/2019 8:46 AM PDT) + + + [...] RESULT | Testing performed at | | [facility] | | | | [facility], [address] [facility] | | LABORATORY | | | | [place], [place] | | | | | | [id number]: Testing | | | | | | performed at [facility], [address] | | | | | | [facility] [address], | | | | | | [place] [address] | | | | + + + + + + + + | Specimen | + + | | + + + + + + + | Performing | Address | City/State/Zipcode | Phone Number | | Organization | | | | + + + + + | [facility] | [address] | [place] [address] | [phone] | + + + + + CHRISTOPHER Prep (08/15/2019 8:46 AM PDT) + + + + + + | Component | Value | Ref Range | Performed | Pathologist | | | | | At | Signature | + + + + + + | RESULT | NO YEAST OR FUNGAL | | [facility] | | | | ELEMENTS SEEN | | LABORATORY | | + + + + + + | RESULT | Testing performed at | | [facility] | | | | [facility], [address] | | LABORATORY | | | | [place], [place] | | | | | | [id number]: Testing | | | | | | performed at [facility], [address] | | | | | | [facility], | | | | | | [place] [address] | | | | + + + + + + + + | Specimen | + + | | + + + + + + + | Performing | Address | City/State/Zipcode | Phone Number | | Organization | | | | + + + + + | [facility] | [address] | [place] [address] | [phone] | + + + + + Culture, Fungus (08/15/2019 8:46 AM PDT) + + + + + + | Component | Value | Ref Range | Performed | Pathologist | | | | | At | Signature | + + + + + + | Specimen | BRONCHIAL LAVAGEComment: | | [facility] | | | Source | RUL SPEC 2Testing | | LABORATORY | | | | performed at [facility];[address] | | | | | | [address];[place], [place] | | | | | | [address] | | | | + + + + + + | Fungus | Final reportComment: | | [facility] | | | (Mycology) | Testing performed by | | LABORATORY | | | Culture | [facility], [address] [place] [address] | | | | | | [place] | | | | | | [id number] ON | | | | | | 09/13 AT 1106: | | | | | | PREVIOUSLY REPORTED | | | | | | Preliminary report | | | | + + + + + + + + | Specimen | + + | | + + + + + + + | Performing | Address | City/State/Zipcode | Phone Number | | Organization | | | | + + + + + | [facility] | [address] | [place] [address] | [phone] | + + + + + Culture, [...] | [facility] | | | Result | [facility], [address] [facility] | | LABORATORY | | | | [place] | | | | | | [address] | | | | + + + [...] + | RESULT | 16,000 | | [facility] | | | | CFUMIXEDSTAPHYLOCOCCUS | | LABORATORY | | | | SPECIES, COAGULASE | | | | | | NEGATIVE (A)Comment: | | | | | | Testing performed at | | | | | | [facility], [address] [facility] | | | | | | [place] | | | | | | [address] | | | | + + + + + + + + | Specimen | + + | | + + + + + + + | Performing | Address | City/State/Zipcode | Phone Number | | Organization | | | | + + + + + | [facility] | [address] | [place] [address] | [phone] | + + + + + Medical Cytology (08/15/2019 8:46 AM PDT) + + | Specimen | + + | Tissue - | | Bronchoscope, device | | (physical object) | + + + + + | Narrative | Performed At | + + + | ORDERING | [facility] | | PHYSICIAN:Alfonso Wallace MD PATIENT NAME:KEVIN DAUGHERTY SR. | INCYTE | | PEPEGENDER: Brennan : 1950 SPECIMEN(S): A RT UPPER [...] with thepatient's concurrent biopsies | | | ([id number]).AMB:emb PERFORMING LABORATORY:The technical component was | | | performed by [facility], [address] [place] [address] | | | [place] [address] (Military Science Instructor: Ramses Purdy D.O.; CLIA#: | | | [id number]).Professional interpretation was performed by [facility] | | | [facility], | | | [place] [address] (Military Science Instructor: Yoandy Kirkland M.D.; CLIA#: | | | [id number]). Diagnostician: Yoel SLAUGHTER | | | ([facility])CytotechnologistDiagnostician: Nata Amin Backer | | | MDPathologistElectronically Signed 08/16/2019 | [...] with the | | |patient's concurrent biopsies ([id number]). | | |AMB:emb | | | | | |PERFORMING LABORATORY: | | |The technical component was performed by [facility], [address] [place] [address] (Military Science Instructor: Ramses Purdy D.O.; CLIA#: [id number]). | | |Professional interpretation was performed by [facility], [address] [address] (Military Science Instructor: Yoandy Kirkland M.D.; CLIA#: [id number]). | | | | | |Diagnostician: Yoel SLAUGHTER ([facility]) | | |Aboriginal Education Worker Coordinator | | |Diagnostician: Nata Gallego MD | [...] use, | | | presenting hazards to [place]), J43.2 (centrilobular emphysema) FINAL | | | PATHOLOGIC DIAGNOSIS:Right upper lobe lung, biopsies:- Fragments of | | | reactive, inflamed bronchial mucosa, negative for granulomas, necrosis | | | or malignancy. See Comment. COMMENT:Please correlate these results | | | with the patient's concurrent cytology ([id number]). AMB:emb:C2NR | | | MICROSCOPIC EXAMINATION:Histologic sections [...] | | technical component was performed by [facility], [address] [place] [address] | | | [place] [address] (Military Science Instructor: Nata Gallego MD; CLIA# | | | [id number]). Professional interpretation was performed [facility] | | | [facility], | | | [place] [address] (Military Science Instructor: Yoandy Kirkland M.D.; CLIA#: | | | [id number]). Diagnostician: Nata Gallego | | | MDPathologistElectronically Signed 08/16/2019 | | | | | |PERFORMING LABORATORY: | | |The technical component was performed by [facility], [address] [place] [address] (Military Science Instructor: Nata Gallego MD; CLIA# [id number]). Professional interpretation was performed by | | |[facility] [address] (Military Science Instructor: Yoandy Kirkland M.D.; CLIA#: [id number]). | | | | | |Diagnostician: Nata [...] professional dictation will be given. Signed by: Migel, | [facility] | | Neri Polk Date/Time: 08/15/2019 11:45 AM | | + [...] | Blake, Rad Results In - 08/15/2019 11:49 AM PDT | | CT [...] Performed At | + + + | [facility] | [facility] | | [facility] | PROVATION | | CenterPulmonology | | | Patient Name: Kevin Daugherty | | | Procedure Date: 08/15/2019 6:55 AMMRN: [id number] | | | Date of : 1950Note [...] | | | navigation bronchoscopy utilizing the [address] system | | | was performed. The [...] | | | | | | | Alfonso Madison, 08/15/2019 8:55:40 AMThis report has been | | | signed electronically.Number of Addenda: 0 Note Initiated On: | | | 08/15/2019 6:55 AM [facility] | | | Department | | |This report has been signed electronically. | | |Number of Addenda: 0 | | | | | |Note Initiated On: 08/15/2019 6:55 AM | | | | | | [facility] | | + + [...] Testing | 39.0 - 50.0 % | [facility] | | | | performed at [facility];[address] | | LABORATORY | | | | [address];[place], [place] | | | | | | [address] | | | | + + + + + + + + | Specimen | + + | Blood | + + + + + + + | Performing | Address | City/State/Zipcode | Phone Number | | Organization | | | | + + + + + | [facility] | [address] | [place] [address] | [phone] | + + + + + Basic [...] | >60Comment: GFR <60: | >60 | [facility] | | | GFR | CHRONIC KIDNEY [...] | | | | | | MDRD IDMS traceable | | | | | | equation.Testing | | | | | | performed at [facility] | | | | | | [facility];[place], [place] | | | | | | [address] | | | | + + + + + + + + | Specimen | + + | Blood | + + + + + + + | Performing | Address | City/State/Zipcode | Phone Number | | Organization | | | | + + + + + | [facility] | [address] | [place] [address] | [phone] | + + + + + documented [...] PDT | | | | | Starting Tu08/15/19 at 0905, | | | | | [...] One week or | | | longer, [id number]-pjq-mqpmj use of | | | at least [...] scheduled: AC, NPO, Daytime | | | 2234-2320 Use NIGHT DOSE for | | | doses scheduled: HS, 3AM, | | | Nighttime 2024-8208 If the BG is | | | [...] PRN, Nausea, Vomiting, | | | Starting Wed08/15/19 at 0905, | | | Recovery/Phase I [...]
--- OUTSIDE RECORDS SUMMARY | ~2020-01-14 | XMS | Encounter Summary ---
Demographics + + + | Address | [address] | | | [place] [address] | + + + | Home Phone | | + + + | Preferred Language | Unknown | + + + | Marital Status | | + + + | Voodoo Affiliation | 1061 | + + + | Race | White | + + + | Ethnic Group | Not or | + + + Author + + + | Author | [facility] | | | and [place] | + + + | Organization | [facility] | | | and [place] | + + + | Address | Unknown | + + + | Phone | Unavailable | + + + Support + + + + + | Name | Relationship | Address | Phone | + + + + + | Palak Trejo Aguilar | ECON | #[id number] | | | | | [address] | | + + + + + | Tanika Jean | ECON | Unknown | | + + + + + Care Team Providers + +------+ + | Care Manager Field Services Name | Role | Phone | + +------+ + PCP | Unavailable | + +------+ + Encounter Details +--------+ + + + + | Date | Type | Department | Care Team | Description | +--------+ + + + + | 05/04/ | Hospital | [facility] | [place], | | | 2011 | Encounter | MED CTR SLEEP | Ling Frazier MD | | | | | [place] | | | | | | [place] | | | | | | [address] | | | | | | [phone] | | | +--------+ + + + [...] documented as of this encounter Miscellaneous Notes Sleep Disorders - Mundo Avila Jr., MD - 05/04/2011 2:55 PM PSTDATE: 05/04/2011 cc: [facility] Sleep Center Mundo Avila Jr., MD, [facility] Peter Reina MD DIAGNOSTIC NOCTURNAL POLYSOMNOGRAM CLINICAL INFORMATION: This is a 60-year-old gentleman with COPD, who also has disrupted sle ep and pos sible obstructive apnea. For this reason polysomnography has been ordered. FINDINGS: Prior to the study the patient scored 4 points on the Wayan Sleepiness Scale wh ich does n ot endorse a significant degree of recognized excessive daytime sleepiness. The patient reported this to be a usual night's sleep. SLEEP ARCHITECTURE: Lights out was recorded at 04:40 p.m. Lights on was recorded at 05:56 a .m. The la tency to sleep onset was normal at 9.5 minutes. The patient slept for 323.5 yumiko ellen out of 436.5 yumiko ellen of study time. The sleep efficiency is reduced at 74.1%. The amou nt of N1 sleep was normal at 2% of the evening. The amount of N2 sleep was normal at 50.1% of the evening. The amount of N3 sleep was normal at 15.5% of the evening. The amount of ra pid eye movement sleep is low at 8.2% of the evening . The latency to rapid eye movement sl eep is normal at 90 minutes. The patient spent 100% of the even ing in the right lateral de cubitus position. The patient insisted that he could not sleep in the supi ne position in s pite of the forestry aid technician encouraging him to do so. Sleep was fragmented. The arousal index is 55.3. CARDIOPULMONARY MONITORING: The heart rate averaged in the 80s and fundamentally was a sinu s rhythm. During the course of the evening, there were no apneas. There were 15 hypopneas. There were 20 respir atory effort-related arousals. The respiratory disturbance index was minimally e levated at 6.5. The a pnea-hypopnea index was normal at 2.8. The respiratory events occasio sharifa very mild sleep fragmentatio n. The respiratory arousal index was 5.9. Minimal oxygen d esaturation was noted. The mina saturation was 88%, but the patient spent only 3.7 minutes with an oxygen saturation of under 88%. The oxygen d esaturation index was mildly elevated to 8.4. LIMB MOVEMENT MONITORING: There were 192 periodic limb movements. The PLMS index is elevate d at 35.6, 142 were associated with arousals. The PLMS arousal index is elevated at 26.3. INTERPRETATION: This is an abnormal nocturnal polysomnogram secondary to: 1. Periodic limb movements of sleep are present and they significantly fragments sleep. 2. Mild obstructive sleep apnea is present and it minimally fragments sleep and is associated with mi nimal ox ygen desaturation. SUGGESTIONS 1. The principles of sleep hygiene should, of course, be reviewed with the patient. 2. A f erritin level should be checked. If the ferritin is under 50, iron supplementation may be he lpf ul with periodic limb movements of sleep. The patient should also be queried about symp toms of restle ss legs. 3. Obstructive apnea is mild, but might benefit from a trial of treatment. Mundo Avila Jr., MD, FAASM Diplomate [place] Board of Internal Medicine Diplomate in Sleep Medicine Nurse Practitioner, [facility] Clinical General Surgery Physician Assistant Saúl mccullough [facility] JOB #: [id number] EXT JOB #:[id number] EDITED: 05/13/2011 07:32 <Electronically Signed by Mundo Avila MD> 05/13/11 1326 documented in this encounter Plan of Treatment [...] | | | | | [place] [address] | | | | | | [phone] | | | | | | | | +--------+---------+ + + + | 04/19/ | Office | Pulmonology | Alfonso Wallace MD | | | 2020 | Visit | | [address] | | | | | | [place] | | | | | | [address] | | | | | | | | +--------+---------+ + + + documented as of this encounter Visit Diagnoses Not on filedocumented in this encounter"
--- OUTSIDE RECORDS SUMMARY | ~2020-01-14 | XMS | Encounter Summary ---
Demographics + + + | Address | [address] | | | [place] [address] | + + + | Home Phone [...] #[address] | | | | | [address] | | + + + + + | Tanika Jean | ECON | Unknown | | + + + + + Care Team Providers + +------+ + | Care Instructor Watch Assembly Name | Role | Phone | + [...] + + | 07/14/ | Office | [facility] | [place], | Chronic obstructive | | 2016 | Visit | PULMONARY [address] | Ling Frazier MD | pulmonary disease, | | | | [place], | | unspecified COPD | | | | [place] [address] | | type ([facility]); | | | | [phone] | | Nocturnal hypoxemia | | | [...] the original. Pulmonary Follow Up HPI Nazario Franki [facility]. is a 64 y.o. male patient of Jose Angel Reina MD [place] follow up of COPD. At their [...] is currently on 3 L[facility] at [facility]. He reports good compliance. He did [...] made to ensure accuracy; however, inadvertent computerized supervisor machining errors may be pre sent. documented in [...] | | | | | [place] [address] | | | | | | [phone] | | | | | | | | +--------+---------+ + + + | 04/19/ | Office | Pulmonology | Alfonso Wallace MD | | | 2020 | Visit | | [address] | | | | | | [place] | | | | | | [address] | | | | | | | [...]
--- OUTSIDE RECORDS SUMMARY | ~2020-01-14 | XMS | Encounter Summary ---
Demographics + + + | Address | [address] | | | [place] [address] | + + + | Home Phone [...] #[place] | | | | | [address] | | + + + + + | Tanika Jean | ECON | Unknown | | + + + + + Care Team Providers + +------+ + | Care Back Closer Name | Role | Phone | + [...] | | | | [address] [facility] | [place] [address] | | | | | [place] [address] | | | | | | [phone] | | | +--------+ + + + [...] | | | | | [place] [address] | | | | | | [phone] | | | | | | | | +--------+---------+ + + + | 04/19/ | Office | Pulmonology | Alfonso Wallace MD | | | 2020 | Visit | | [address] | | | | | | [place] | | | | | | [phone] | | | | | | | [...] for comparison only - no result from [place]. | [facility] | + + + + +---------+ + + | Performing | Address | City/State/Zipcode | Phone Number | | Organization | | | | + +---------+ + + | [facility] | | | | + +---------+ + + documented in this encounter Visit Diagnoses Not on filedocumented in this encounter"
--- OUTSIDE RECORDS SUMMARY | ~2020-01-14 | XMS | Encounter Summary ---
Demographics + + + | Address | [address] | | | [place] [address] | + + + | Home Phone [...] #[place] | | | | | [address] | | + + + + + | Tanika Jean | ECON | Unknown | | + + + + + Care Team Providers + +------+ + | Care Winding Machine Operator Name | Role | Phone | + +------+ + | Jose Angel Reina MD | PCP | | + +------+ + Reason for Visit +--------+--------+ + | Reason | Onset | Comments | | | Date | | +--------+--------+ + | Other | 06/21/ | Nebulized Solution | | | 2013 | | +--------+--------+ + Encounter Details +--------+ + + + + | Date | Type | Department | Care Team | Description | +--------+ + + + + | 06/21/ | Telephone | [facility] | Chrissy, | Other (Nebulized | | 2013 | | PULMONARY [address] | Ling Frazier MD | Solution ) | | | | [place], | | | | | | [place] [address] | | | | | | [phone] | | | +--------+ + + + [...] this encounter Miscellaneous Notes Telephone Encounter - Stephanie Faulkner RN - 06/21/2013 3:48 PM [facility] and stated due to contract changes patients nebulized solution needs to be sent to a [facility] [employer] and not through [facility] [employer]. Patient uses [facility]. documented in this encounter Plan of Treatment +--------+---------+ + + + | Date | Type | Specialty | Care Team | Description | +--------+---------+ + + + | 01/28/ | Office | Infectious Diseases | Sana Dawson | | | 2019 | Visit | | Jazmin Stringer MD | | | | | | [address] [facility] | | | | | | [place] [address] | | | | | | [phone] | | | | | | | | +--------+---------+ + + + | 04/19/ | Office | Pulmonology | Alfonso Wallace MD | | | 2020 | Visit | | [address] | | | | | | [place] | | | | | | [address] | | | | | | | | +--------+---------+ + + + documented as of this encounter Visit Diagnoses + + | Diagnosis | + + | COPD (chronic obstructive pulmonary disease) (HCC) - Primary Chronic airway | | obstruction, not elsewhere classified | + + documented in this encounter"
--- OUTSIDE RECORDS SUMMARY | ~2020-01-14 | XMS | Encounter Summary ---
Demographics + + + | Address | [address] | | | [place] [address] | + + + | Home Phone | | + + + | Preferred Language | Unknown | + + + | Marital Status | | + + + | Jew Affiliation | 1061 | + + + | Race | White | + + + | Ethnic Group | Not or | + + + Author + + + | Author | [facility] | | | and [place] | + + + | Organization | [facility] | | | and [place] | + + + | Address | Unknown | + + + | Phone | Unavailable | + + + Support + + + + + | Name | Relationship | Address | Phone | + + + + + | Palak Aguilar | ECON | [id number] | | | | | [address] | | + + + + + | Tanika Jean | ECON | Unknown | | + + + + + Care Team Providers + +------+ + | Care Mayonnaise Mixer Name | Role | Phone | + [...] Description | +--------+--------+ + + + | 06/12/ | Refill | [facility] [place] | Chrissy, | Medication Refill | | 2014 | | PULMONARY [address] | Ling Frazier MD | | | | | [employer] [place] [place], | | | | | | [place] [address] | | | | | | [phone] | | | +--------+--------+ + + + [...] | | | | | [place] [address] | | | | | | [phone] | | | | | | | | +--------+---------+ + + + | 04/19/ | Office | Pulmonology | Alfonso Wallace MD | | | 2020 | Visit | | [address] | | | | | | [place] | | | | | | [phone] | | | | | | | [...]
--- OUTSIDE RECORDS SUMMARY | ~2020-01-14 | XMS | Encounter Summary ---
Demographics + + + | Address | [address] | | | [place] [address] | + + + | Home Phone [...] #[place] | | | | | [address] | | + + + + + | Tanika Jean | ECON | Unknown | | + + + + + Care Team Providers + +------+ + | Care Monogram Machine Operator Name | Role | Phone | + +------+ + | Jose Angel Reina MD | PCP | | + +------+ + Encounter Details +--------+ + + + + | Date | Type | Department | Care Team | Description | +--------+ + + + + | 04/20/ | Hospital | [facility] | CristianomeganickieMicah olvera | | | 2013 | Encounter | MED CTR XRAY [address] | [address] | | | | | [place] | [place], [place] | | | | | [place] [address] | [address] | | | | | [phone] | | | +--------+ + + + [...] mLs by | 360 | 11 | 03/16/20 | | | mL nebulizer | nebulization every 6 | vial | | 13 | 4 | | solutionIndications: | hours as needed for | | | | | | COPD (chronic | Wheezing or | | | | | | obstructive | Shortness of Breath. | | | | | | pulmonary disease) | Dx: [address]: 99 | | | | | | ([facility]) | months [place] | | | | | | | [place] | | | | | + + [...] MD | | | | | | [address] | | | | | | [place] [address] | | | | | | [phone] | | | | | | | | +--------+---------+ + + + | 04/19/ | Office | Pulmonology | Alfonso Wallace MD | | | 2020 | Visit | | [address] | | | | | | [facility] [facility] | | | | | | [address] | | | | | | | | +--------+---------+ + + + documented as of this encounter Procedures + +--------+ + + + | Procedure Name | Priori | Date/Time | Associated Diagnosis | Comments | | | ty | | | | + +--------+ + + + | FL FACET INJECTION | Routin | 04/20/2013 | | Results for this | | | e | 4:53 PM | | procedure are in the | | | | PST | | results section. | + +--------+ + + + documented in this encounter Results FL Facet Injection (04/20/2013 4:53 PM PST) + + | Specimen | + + | | + + + + + | Narrative | Performed At | + + + | [facility] | [facility] | | Department [address] [facility] | [facility] | | [ rep [address]] [ rep [facility] | | [facility]] Signed | - IMAGING | | | | | Patient Name: KEVIN DAUGHERTY SR | | | Physician: BANDAR : 1950 Age: 62 Sex: M Unit | | | #: [id number] Exam Date: 04/20/13 Location: | | | IMG.INV Report #: [id number] Page: | | | %(RAD)RES..mtdd.print.filter("pg") of %(RAD) | | | RES..mtdd.print.filter("tpg") | | | | | | Accession Number: [id number] | | | PROCEDURE NOTE LUMBAR FACET INJECTIONS, 04/20/2013 | | | CLINICAL HISTORY: ICD-9 CODE 721.3, LUMBAR SPONDYLOSIS. | | | Mr. Kevin Daugherty presents to the fluoroscopy suite for | | | fluoroscopically-guided bilateral L4-L5 and bilateral L5-S1 facet | | | injections as part of conservative management for chronic pain and | | | lumbar spondylosis. After informed consent was obtained, the | | | patient lay in the prone position on the fluoroscopy table. The | | | areas were identified under fluoroscopic guidance. The areas were | | | prepped and draped in sterile fashion. A 25-gauge, 1.5-inch needle | | | was inserted into each region and approximately 3 mL of buffered 1% | | | lidocaine was infused. Then, a 22-gauge spinal needle was inserted | | | into the superior portion of each facet under fluoroscopic guidance. | | | Confirmation into the joint spaces was obtained with infusion of | | | approximately 0.5 mL of Isovue contrast which showed outline of the | | | facet joints. Then, a combination of 1 mL of 1% lidocaine and 1 mL | | | of 40 mg/mL Kenalog was infused divided between the four joints. | | | The patient tolerated the procedure well without complications. | | | Pre- and post-procedure blood pressures were stable. The patient | | | was given verbal as well as written followup instructions. | | | Prior to the start of the procedure, the following were performed | | | and verified, including correct patient identity, correct site/side | | | marked and visible, agreement on the procedure to be done, correct | | | patient positioning and an accurate procedure consent form. Any | | | safety precautions based on clinical history and/or medication use | | | have been addressed. I personally performed the procedure | | | above. Dictated Date/Time: 04/20/2013 16:53 | | | Transcribed Date/Time: 04/20/2013 17:21 Home Appliance Installer: | | | <<Signature on File>> | | | Micah Anderson | | | MD Nehemias04/20/13 1805 <Electronically signed by Micah Anderson | | | Nehemias ARIAS> Micah Del Cid MD 04/20/13 1653 | | | Home Appliance Installer: [employer] Ungapkjujsdeh76/16/14 1721 | | | | | + + + + + + + + | Performing | Address | City/State/Zipcode | Phone Number | | Organization | | | | + + + + + | [facility] | [address] | [place] | [phone] | | [facility] | | [address] | | | - IMAGING | | | | + + + + + documented in this encounter Visit Diagnoses Not on filedocumented in this encounter
--- OUTSIDE RECORDS SUMMARY | ~2020-01-14 | XMS | Encounter Summary ---
Demographics + + + | Address | [address] | | | [place] [address] | + + + | Home Phone | | + + + | Preferred Language | Unknown | + + + | Marital Status | Single | + + + | Gnosticism Affiliation | Unknown | + + + | Race | Unknown | + + + | Ethnic Group | Other Race | + + + Author + + + | Author | [facility] | + + + | Organization | [facility] | + + + | Address | Unknown | + + + | Phone | Unavailable | + + + Care Team Providers + +------+ + | Care Department Store Salesperson Name | Role | Phone | + [...] | | cerebellar | [facility] | [address] | | | | | ataxia | [place], [place] | [facility] | | | | | | [address] | [facility] | | | | | | Phone: | and Healing, | | | | | | [phone] | [address], | | | | | | Fax: | 8th Floor | | | | | | [phone] | [place], [place] | | | | | | | [address] | | | | | | | Phone: | | | | | | | [phone] | | | | | | | Fax: | | | | | | | [phone] | +--------+--------+ + + + + Encounter Details +--------+---------+ + + + | Date | Type | Department | Care Team | Description | +--------+---------+ + + + | 07/18/ | Office | Neurology Movement | Moisés Rudd, | 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 CC: Ataxia HPI: Nazario Aguilar Sr. is a 62 y.o. male on whom [...] not had a diagnosis. He lives in [place]. No one else in the family. 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 Physical Examination: Vital Signs: BP [...] tests. Will recommend complete ataxia panel from [facility] or equivalent. This will look for the [...] the capability to see return patients at [facility]. For now, we have scheduled him to [...] as outlined above 2) Follow up in [place] in 1 year - could be seen [...]
--- OUTSIDE RECORDS SUMMARY | ~2020-01-14 | XMS | Encounter Summary ---
Demographics + + + | Address | [address] | | | [place] [address] | + + + | Home Phone [...] #[address] | | | | | [id number] | | + + + + + | Tanika Jean | ECON | Unknown | | + + + + + Care Team Providers + +------+ + | Care Staff Attorney Name | Role | Phone | + +------+ + | Jose Angel Reina MD | PCP | | + +------+ + Encounter Details +--------+ + + + + | Date | Type | Department | Care Team | Description | +--------+ + + + + | 06/17/ | Abstract | [facility] | [place], | | | 2015 | | PULMONARY [address] | Ling Frazier MD | | | | | [place], | | | | | | [place] [address] | | | | | | [phone] | | | +--------+ + + + [...] | | | | | [place] [address] | | | | | | [phone] | | | | | | | | +--------+---------+ + + + | 04/19/ | Office | Pulmonology | Alfonso Wallace MD | | | 2020 | Visit | | [address] | | | | | | [place] | | | | | | [phone] | | | | | | | | +--------+---------+ + + + documented as of this encounter Procedures + +--------+ + + + | Procedure Name | Priori | Date/Time | Associated Diagnosis | Comments | | | ty | | | | + +--------+ + + + | EXTERNAL LAB: CACHORRO | Routin | 06/06/2015 | | Results for this | | | e | | | procedure are in the | | | | | | results section. | + +--------+ + + + | EXTERNAL LAB: | Routin | 06/06/2015 | | Results for this | | GLUCOSE | e | | | procedure are in the | | | | | | results section. | + +--------+ + + + | EXTERNAL LAB: | Routin | 06/06/2015 | | Results for this | | TROPONIN T | e | | | procedure are in the | | | | | | results section. | + +--------+ + + + | EXTERNAL LAB: ALT | Routin | 06/06/2015 | | Results for this | | | e | | | procedure are in the | | | | | | results section. | + +--------+ + + + | EXTERNAL LAB: AST | Routin | 06/06/2015 | | Results for this | | | e | | | procedure are in the | | | | | | results section. | + +--------+ + + + | EXTERNAL LAB: | Routin | 06/06/2015 | | Results for this | | ALKALINE PHOSPHATASE | e | | | procedure are in the | | | | | | results section. | + +--------+ + + + | EXTERNAL LAB: | Routin | 06/06/2015 | | Results for this | | BILIRUBIN, TOTAL | e | | | procedure are in the | | | | | | results section. | + +--------+ + + + | EXTERNAL LAB: | Routin | 06/06/2015 | | Results for this | | ALBUMIN | e | | | procedure are in the | | | | | | results section. | + +--------+ + + + | EXTERNAL LAB: | Routin | 06/06/2015 | | Results for this | | PROTEIN, TOTAL | e | | | procedure are in the | | | | | | results section. | + +--------+ + + + | EXTERNAL LAB: | Routin | 06/06/2015 | | Results for this | | MAGNESIUM | e | | | procedure are in the | | | | | | results section. | + +--------+ + + + | EXTERNAL LAB: | Routin | 06/06/2015 | | Results for this | | CALCIUM | e | | | procedure are in the | | | | | | results section. | + +--------+ + + + | EXTERNAL LAB: CARBON | Routin | 06/06/2015 | | Results for this | | DIOXIDE | e | | | procedure are in the | | | | | | results section. | + +--------+ + + + | EXTERNAL LAB: | Routin | 06/06/2015 | | Results for this | | CHLORIDE | e | | | procedure are in the | | | | | | results section. | + +--------+ + + + | EXTERNAL LAB: | Routin | 06/06/2015 | | Results for this | | POTASSIUM | e | | | procedure are in the | | | | | | results section. | + +--------+ + + + | EXTERNAL LAB: SODIUM | Routin | 06/06/2015 | | Results for this | | | e | | | procedure are in the | | | | | | results section. | + +--------+ + + + | EXTERNAL LAB: SINDY | Routin | 06/06/2015 | | Results for this | | | e | | | procedure are in the | | | | | | results section. | + +--------+ + + + | EXTERNAL LAB: Freddie HERNANDEZ | Routin | 06/06/2015 | | Results for this | | NATURETIC PEPTIDE | e | | | procedure are in the | | | | | | results section. | + +--------+ + + + | EXTERNAL LAB: SHANIA | Routin | 06/06/2015 | | Results for this | | | e | | | procedure are in the | | | | | | results section. | + +--------+ + + + | EXTERNAL LAB: | Routin | 06/06/2015 | | Results for this | | CREATININE | e | | | procedure are in the | | | | | | results section. | + +--------+ + + + | CBC WITH | Routin | 06/06/2015 | | Results for this | | DIFFERENTIAL | e | | | procedure are in the | | | | | | results section. | + +--------+ + + + | COMPREHENSIVE | Routin | 06/06/2015 | | Results for this | | METABOLIC PANEL | e | | | procedure are in the | | | | | | results section. | + +--------+ + + + | EXTERNAL LAB: BUN | Routin | 05/31/2015 | | Results for this | | | e | | | procedure are in the | | | | | | results section. | + +--------+ + + + | EXTERNAL LAB: | Routin | 05/31/2015 | | Results for this | | GLUCOSE | e | | | procedure are in the | | | | | | results section. | + +--------+ + + + | EXTERNAL LAB: | Routin | 05/31/2015 | | Results for this | | CALCIUM | e | | | procedure are in the | | | | | | results section. | + +--------+ + + + | EXTERNAL LAB: CARBON | Routin | 05/31/2015 | | Results for this | | DIOXIDE | e | | | procedure are in the | | | | | | results section. | + +--------+ + + + | EXTERNAL LAB: | Routin | 05/31/2015 | | Results for this | | CHLORIDE | e | | | procedure are in the | | | | | | results section. | + +--------+ + + + | EXTERNAL LAB: | Routin | 05/31/2015 | | Results for this | | POTASSIUM | e | | | procedure are in the | | | | | | results section. | + +--------+ + + + | EXTERNAL LAB: SODIUM | Routin | 05/31/2015 | | Results for this | | | e | | | procedure are in the | | | | | | results section. | + +--------+ + + + | EXTERNAL LAB: EGFR | Routin | 05/31/2015 | | Results for this | | | e | | | procedure are in the | | | | | | results section. | + +--------+ + + + | EXTERNAL LAB: | Routin | 05/31/2015 | | Results for this | | CREATININE | e | | | procedure are in the | | | | | | results section. | + +--------+ + + + | BASIC METABOLIC | Routin | 05/31/2015 | | Results for this | | PANEL | e | | | procedure are in the | | | | | | results section. | + +--------+ + + + documented in this encounter Results CBC with Differential (06/06/2015) + +-------+ + + + | Component | Value | Ref Range | Performed | Pathologist | | | | | At | Signature | + +-------+ + + + | MCH | 31.0 | 26.0 - 33.0 pg | | | + +-------+ + + + | MCHC | 33.0 | 31.0 - 37.0 % | | | + +-------+ + + + | % Basophils | 0.0 | 1.0 % | | | + +-------+ + + + + + | Specimen | + + | Blood specimen | | (specimen) | + + External Lab: CBC (06/06/2015) + + + + + + | Component | Value | Ref Range | Performed | Pathologist | | | | | At | Signature | + + + + + + | WBC, | 11.5 (A) | 4.5 - 11 | EXTERNAL | | | External | | | LAB | | + + + + + + | HGB, | 15.4 | 13.5 - 18 | EXTERNAL | | | External | | | LAB | | + + + + + + | HCT, | 47.3 | 41 - 50 | EXTERNAL | | | External | | | LAB | | + + + + + + | PLT, | 281 | 140 - 440 | EXTERNAL | | | External | | | LAB | | + + + + + + | Neutrophils | 61.8 | 39 - 80 | EXTERNAL | | | %, | | | LAB | | | External | | | | | + + + + + + | Lymphocytes | 30.7 | 24 - 44 | EXTERNAL | | | %, | | | LAB | | | External | | | | | + + + + + + | Monocytes | 4.9 | 0 - 12 | EXTERNAL | | | %, External | | | LAB | | + + + + + + | Eosinophils | 2.6 | 0 - 6 | EXTERNAL | | | %, | | | LAB | | | External | | | | | + + + + + + | RBC, | 4.89 | 4.3 - 5.7 | EXTERNAL | | | External | | | LAB | | + + + + + + | MCV, | 97 | 81 - 99 | EXTERNAL | | | External | | | LAB | | + + + + + + | RDW, | 12.5 | 10.5 - 15 | EXTERNAL | | | External | | | LAB | | + + + + + + + + | Resulting Agency Comment | + + | [facility] | + + + +---------+ + + | Performing | Address | City/State/Zipcode | Phone Number | | Organization | | | | + +---------+ + + | EXTERNAL LAB | | | | + +---------+ + + Comprehensive Metabolic Panel (06/06/2015) + +-------+ + + + | Component | Value | Ref Range | Performed | Pathologist | | | | | At | Signature | + +-------+ + + + | Anion Gap | 9 | 7 - 21 mmol/L | [facility] | | | | | | [facility] | [facility] | | [facility] | | | | | [facility] - | | | | | | LABORATORY | | + +-------+ + + + | Bun/Creatin | 17.6 | 6.0 - 28.6 | [facility] | | | ine | | | [facility] | | | | | | [facility] | | | | | | [facility] - | | | | | | LABORATORY | | + +-------+ + + + | Globulin | 2.6 | 1.8 - 3.5 | [facility] | | | | | | [facility] | | | | | | [facility] | | | | | | [facility] - | | | | | | LABORATORY | | + +-------+ + + + | Albumin/Lorelei | 1.4 | 1.1 - 2.4 | [facility] | | | bulin Ratio | | | [facility] | [...] [address] | [place] | [phone] | | [facility] | | [id number] | | | - LABORATORY | | | | + + + + + External Lab: CACHORRO (06/06/2015) + +-------+ + + + | Component | Value | Ref Range | Performed | Pathologist | | | | | At | Signature | + +-------+ + + + | CACHORRO, | 12 | 6 - 23 | EXTERNAL | | | External | | | LAB | | + +-------+ + + + + + | Resulting Agency Comment | + + | [facility] | + + + +---------+ + + | Performing | Address | City/State/Zipcode | Phone Number | | Organization | | | | + +---------+ + + | EXTERNAL LAB | | | | + +---------+ + + External Lab: Glucose (06/06/2015) + +---------+ + + + | Component | Value | Ref Range | Performed | Pathologist | | | | | At | Signature | + +---------+ + + + | Glucose, | 109 (A) | 70 - 100 | EXTERNAL | | | External | | | LAB | | + +---------+ + + + + + | Resulting Agency Comment | + + | [facility] | + + + +---------+ + + | Performing | Address | City/State/Zipcode | Phone Number | | Organization | | | | + +---------+ + + | EXTERNAL LAB | | | | + +---------+ + + External Lab: Troponin T (06/06/2015) + +--------+ + + + | Component | Value | Ref Range | Performed | Pathologist | | | | | At | Signature | + +--------+ + + + | Troponin T, | <0.010 | 0.01 | EXTERNAL | | | External | | | LAB | | + +--------+ + + + + + | Resulting Agency Comment | + + | [facility] | + + + +---------+ + + | Performing | Address | City/State/Zipcode | Phone Number | | Organization | | | | + +---------+ + + | EXTERNAL LAB | | | | + +---------+ + + External Lab: ALT (06/06/2015) + +-------+ + + + | Component | Value | Ref Range | Performed | Pathologist | | | | | At | Signature | + +-------+ + + + | ALT, | 27 | 7 - 52 | EXTERNAL | | | External | | | LAB | | + +-------+ + + + + + | Resulting Agency Comment | + + | [facility] | + + + +---------+ + + | Performing | Address | City/State/Zipcode | Phone Number | | Organization | | | | + +---------+ + + | EXTERNAL LAB | | | | + +---------+ + + External Lab: AST (06/06/2015) + +-------+ + + + | Component | Value | Ref Range | Performed | Pathologist | | | | | At | Signature | + +-------+ + + + | AST, | 14 | 13 - 39 | EXTERNAL | | | External | | | LAB | | + +-------+ + + + + + | Resulting Agency Comment | + + | [facility] | + + + +---------+ + + | Performing | Address | City/State/Zipcode | Phone Number | | Organization | | | | + +---------+ + + | EXTERNAL LAB | | | | + +---------+ + + External Lab: Alkaline Phosphatase (06/06/2015) + +-------+ + + + | Component | Value | Ref Range | Performed | Pathologist | | | | | At | Signature | + +-------+ + + + | ALP, | 79 | 30 - 128 | EXTERNAL | | | External | | | LAB | | + +-------+ + + + + + | Resulting Agency Comment | + + | [facility] | + + + +---------+ + + | Performing | Address | City/State/Zipcode | Phone Number | | Organization | | | | + +---------+ + + | EXTERNAL LAB | | | | + +---------+ + + External Lab: Bilirubin, Total (06/06/2015) + +-------+ + + + | Component | Value | Ref Range | Performed | Pathologist | | | | | At | Signature | + +-------+ + + + | Bilirubin, | 0.3 | 0 - 1.2 | EXTERNAL | | | Total, | | | LAB | | | External | | | | | + +-------+ + + + + + | Resulting Agency Comment | + + | [facility] | + + + +---------+ + + | Performing | Address | City/State/Zipcode | Phone Number | | Organization | | | | + +---------+ + + | EXTERNAL LAB | | | | + +---------+ + + External Lab: Albumin (06/06/2015) + +-------+ + + + | Component | Value | Ref Range | Performed | Pathologist | | | | | At | Signature | + +-------+ + + + | Albumin, | 3.6 | 3.5 - 5 | EXTERNAL | | | External | | | LAB | | + +-------+ + + + + + | Resulting Agency Comment | + + | [facility] | + + + +---------+ + + | Performing | Address | City/State/Zipcode | Phone Number | | Organization | | | | + +---------+ + + | EXTERNAL LAB | | | | + +---------+ + + External Lab: Protein, Total (06/06/2015) + +-------+ + + + | Component | Value | Ref Range | Performed | Pathologist | | | | | At | Signature | + +-------+ + + + | Protein, | 6.2 | 6 - 8 | EXTERNAL | | | Total, | | | LAB | | | External | | | | | + +-------+ + + + + + | Resulting Agency Comment | + + | [facility] | + + + +---------+ + + | Performing | Address | City/State/Zipcode | Phone Number | | Organization | | | | + +---------+ + + | EXTERNAL LAB | | | | + +---------+ + + External Lab: Magnesium (06/06/2015) + +-------+ + + + | Component | Value | Ref Range | Performed | Pathologist | | | | | At | Signature | + +-------+ + + + | Magnesium, | 1.9 | 1.7 - 2.5 | EXTERNAL | | | External | | | LAB | | + +-------+ + + + + + | Resulting Agency Comment | + + | [facility] | + + + +---------+ + + | Performing | Address | City/State/Zipcode | Phone Number | | Organization | | | | + +---------+ + + | EXTERNAL LAB | | | | + +---------+ + + External Lab: Calcium (06/06/2015) + +-------+ + + + | Component | Value | Ref Range | Performed | Pathologist | | | | | At | Signature | + +-------+ + + + | Calcium, | 9.2 | 8.4 - 10.2 | EXTERNAL | | | External | | | LAB | | + +-------+ + + + + + | Resulting Agency Comment | + + | [facility] | + + + +---------+ + + | Performing | Address | City/State/Zipcode | Phone Number | | Organization | | | | + +---------+ + + | EXTERNAL LAB | | | | + +---------+ + + External Lab: Carbon Dioxide (06/06/2015) + +-------+ + + + | Component | Value | Ref Range | Performed | Pathologist | | | | | At | Signature | + +-------+ + + + | Carbon | 29 | 19 - 31 | EXTERNAL | | | Dioxide, | | | LAB | | | External | | | | | + +-------+ + + + + + | Resulting Agency Comment | + + | [facility] | + + + +---------+ + + | Performing | Address | City/State/Zipcode | Phone Number | | Organization | | | | + +---------+ + + | EXTERNAL LAB | | | | + +---------+ + + External Lab: Chloride (06/06/2015) + +-------+ + + + | Component | Value | Ref Range | Performed | Pathologist | | | | | At | Signature | + +-------+ + + + | Chloride, | 105 | 95 - 112 | EXTERNAL | | | External | | | LAB | | + +-------+ + + + + + | Resulting Agency Comment | + + | [facility] | + + + +---------+ + + | Performing | Address | City/State/Zipcode | Phone Number | | Organization | | | | + +---------+ + + | EXTERNAL LAB | | | | + +---------+ + + External Lab: Potassium (06/06/2015) + +-------+ + + + | Component | Value | Ref Range | Performed | Pathologist | | | | | At | Signature | + +-------+ + + + | Potassium, | 4.1 | 3.6 - 5.1 | EXTERNAL | | | External | | | LAB | | + +-------+ + + + + + | Resulting Agency Comment | + + | [facility] | + + + +---------+ + + | Performing | Address | City/State/Zipcode | Phone Number | | Organization | | | | + +---------+ + + | EXTERNAL LAB | | | | + +---------+ + + External Lab: Sodium (06/06/2015) + +-------+ + + + | Component | Value | Ref Range | Performed | Pathologist | | | | | At | Signature | + +-------+ + + + | Sodium, | 139 | 132 - 143 | EXTERNAL | | | External | | | LAB | | + +-------+ + + + + + | Resulting Agency Comment | + + | [facility] | + + + +---------+ + + | Performing | Address | City/State/Zipcode | Phone Number | | Organization | | | | + +---------+ + + | EXTERNAL LAB | | | | + +---------+ + + External Lab: B Type Naturetic Peptide (06/06/2015) + +-------+ + + + | Component | Value | Ref Range | Performed | Pathologist | | | | | At | Signature | + +-------+ + + + | B-Type | 20 | 0 - 100 | EXTERNAL | | | Naturetic | | | LAB | | | Peptide, | | | | | | External | | | | | + +-------+ + + + + + | Specimen | + + | Blood specimen | | (specimen) | + + + + | Resulting Agency Comment | + + | [facility] | + + + +---------+ + + | Performing | Address | City/State/Zipcode | Phone Number | | Organization | | | | + +---------+ + + | EXTERNAL LAB | | | | + +---------+ + + External Lab: eGFR (06/06/2015) + +-------+ + + + | Component | Value | Ref Range | Performed | Pathologist | | | | | At | Signature | + +-------+ + + + | eGFR, | 117 | | EXTERNAL | | | External | | | LAB | | + +-------+ + + + + + | Specimen | + + | Blood specimen | | (specimen) | + + + + | Resulting Agency Comment | + + | [facility] | + + + +---------+ + + | Performing | Address | City/State/Zipcode | Phone Number | | Organization | | | | + +---------+ + + | EXTERNAL LAB | | | | + +---------+ + + External Lab: Creatinine (06/06/2015) + + + + + + | Component | Value | Ref Range | Performed | Pathologist | | | | | At | Signature | + + + + + + | Creatinine, | 0.68 (A) | 0.7 - 1.25 | EXTERNAL | | | External | | | LAB | | + + + + + + + + | Specimen | + + | Blood specimen | | (specimen) | + + + + | Resulting Agency Comment | + + | [facility] | + + + +---------+ + + | Performing | Address | City/State/Zipcode | Phone Number | | Organization | | | | + +---------+ + + | EXTERNAL LAB | | | | + +---------+ + + Basic Metabolic Panel (05/31/2015) + +-------+ + + + | Component | Value | Ref Range | Performed | Pathologist | | | | | At | Signature | + +-------+ + + + | Anion Gap | 9 | 7 - 21 mmol/L | [facility] | | | | | [facility] | | | | | | [facility] | | | | | | [facility] - | | | | | | LABORATORY | | + +-------+ + + + | Bun/Creatin | 23.9 | 6.0 - 28.6 | [facility] | | | ine | | | [facility] | | [...] + | [facility] [facility] | [address] | [place], [place] | [phone] | | [facility] | | [address], [facility] | | | - LABORATORY | | | | + + + + + External Lab: CACHORRO (05/31/2015) + +-------+ + + + | Component | Value | Ref Range | Performed | Pathologist | | | | | At | Signature | + +-------+ + + + | BUN, | 17 | 6 - 23 | EXTERNAL | | | External | | | LAB | | + +-------+ + + + + + | Resulting Agency Comment | + + | [facility] | + + + +---------+ + + | Performing | Address | City/State/Zipcode | Phone Number | | Organization | | | | + +---------+ + + | EXTERNAL LAB | | | | + +---------+ + + External Lab: Glucose (05/31/2015) + +---------+ + + + | Component | Value | Ref Range | Performed | Pathologist | | | | | At | Signature | + +---------+ + + + | Glucose, | 123 (A) | 70 - 100 | EXTERNAL | | | External | | | LAB | | + +---------+ + + + + + | Resulting Agency Comment | + + | [facility] | + + + +---------+ + + | Performing | Address | City/State/Zipcode | Phone Number | | Organization | | | | + +---------+ + + | EXTERNAL LAB | | | | + +---------+ + + External Lab: Calcium (05/31/2015) + +-------+ + + + | Component | Value | Ref Range | Performed | Pathologist | | | | | At | Signature | + +-------+ + + + | Calcium, | 8.9 | 8.4 - 10.2 | EXTERNAL | | | External | | | LAB | | + +-------+ + + + + + | Resulting Agency Comment | + + | [facility] | + + + +---------+ + + | Performing | Address | City/State/Zipcode | Phone Number | | Organization | | | | + +---------+ + + | EXTERNAL LAB | | | | + +---------+ + + External Lab: Carbon Dioxide (05/31/2015) + +-------+ + + + | Component | Value | Ref Range | Performed | Pathologist | | | | | At | Signature | + +-------+ + + + | Carbon | 26 | 19 - 31 | EXTERNAL | | | Dioxide, | | | LAB | | | External | | | | | + +-------+ + + + + + | Resulting Agency Comment | + + | [facility] | + + + +---------+ + + | Performing | Address | City/State/Zipcode | Phone Number | | Organization | | | | + +---------+ + + | EXTERNAL LAB | | | | + +---------+ + + External Lab: Chloride (05/31/2015) + +-------+ + + + | Component | Value | Ref Range | Performed | Pathologist | | | | | At | Signature | + +-------+ + + + | Chloride, | 102 | 95 - 112 | EXTERNAL | | | External | | | LAB | | + +-------+ + + + + + | Resulting Agency Comment | + + | [facility] | + + + +---------+ + + | Performing | Address | City/State/Zipcode | Phone Number | | Organization | | | | + +---------+ + + | EXTERNAL LAB | | | | + +---------+ + + External Lab: Potassium (05/31/2015) + +-------+ + + + | Component | Value | Ref Range | Performed | Pathologist | | | | | At | Signature | + +-------+ + + + | Potassium, | 4.3 | 3.6 - 5.1 | EXTERNAL | | | External | | | LAB | | + +-------+ + + + + + | Resulting Agency Comment | + + | [facility] | + + + +---------+ + + | Performing | Address | City/State/Zipcode | Phone Number | | Organization | | | | + +---------+ + + | EXTERNAL LAB | | | | + +---------+ + + External Lab: Sodium (05/31/2015) + +-------+ + + + | Component | Value | Ref Range | Performed | Pathologist | | | | | At | Signature | + +-------+ + + + | Sodium, | 133 | 132 - 143 | EXTERNAL | | | External | | | LAB | | + +-------+ + + + + + | Resulting Agency Comment | + + | [facility] | + + + +---------+ + + | Performing | Address | City/State/Zipcode | Phone Number | | Organization | | | | + +---------+ + + | EXTERNAL LAB | | | | + +---------+ + + External Lab: eGFR (05/31/2015) + +-------+ + + + | Component | Value | Ref Range | Performed | Pathologist | | | | | At | Signature | + +-------+ + + + | eGFR, | 111 | | EXTERNAL | | | External | | | LAB | | + +-------+ + + + + + | Specimen | + + | Blood specimen | | (specimen) | + + + + | Resulting Agency Comment | + + | [facility] | + + + +---------+ + + | Performing | Address | City/State/Zipcode | Phone Number | | Organization | | | | + +---------+ + + | EXTERNAL LAB | | | | + +---------+ + + External Lab: Creatinine (05/31/2015) + +-------+ + + + | Component | Value | Ref Range | Performed | Pathologist | | | | | At | Signature | + +-------+ + + + | Creatinine, | 0.71 | 0.7 - 1.26 | EXTERNAL | | | External | | | LAB | | + +-------+ + + + + + | Specimen | + + | Blood specimen | | (specimen) | + + + + | Resulting Agency Comment | + + | [facility] | + + + +---------+ + + | Performing | Address | City/State/Zipcode | Phone Number | | Organization | | | | + +---------+ + + | EXTERNAL LAB | | | | + +---------+ + + documented in this encounter Visit Diagnoses Not on filedocumented in this encounter
--- OUTSIDE RECORDS SUMMARY | ~2020-01-14 | XMS | Encounter Summary ---
Demographics + + + | Address | [address] | | | [place] [address] | + + + | Home Phone | | + + + | Preferred Language | Unknown | + + + | Marital Status | | + + + | Scientology Affiliation | [id number] | + + + [...] [id number] | | | | | [address] | | + + + + + | Tanika Jean | ECON | Unknown | | + + + + + Care Team Providers + +------+ + | Care Belt Splicer Name | Role | Phone | + [...] Frazier MD | | | | | [place], | | | | | | [place] [address] | | | | | | [phone] | | | +--------+--------+ + + + [...] [facility] | | | | | | [place] [address] | | | | | | [phone] | | | | | | | | +--------+---------+ + + + | 04/19/ | Office | Pulmonology | Alfonso Wallace MD | | | 2020 | Visit | | [address] | | | | | | [place] | | | | | | [address] | | | | | | | | +--------+---------+ + + + documented as of this encounter Visit Diagnoses Not on filedocumented in this encounter"
--- OUTSIDE RECORDS SUMMARY | ~2020-01-14 | XMS | Encounter Summary ---
Demographics + + + | Address | [address] | | | [place] [address] | + + + | Home Phone [...] #[place] | | | | | [address] | | + + + + + | Tanika Jean | ECON | Unknown | | + + + + + Care Team Providers + +------+ + | Care Host/Hostess Head Name | Role | Phone | + [...] | | | | | [facility] | [place] [address] | | | | | [place] [address] | | | | | | [phone] | | | +--------+ + + + [...] | | | | | [place] [address] | | | | | | [phone] | | | | | | | | +--------+---------+ + + + | 04/19/ | Office | Pulmonology | Alfonso Wallace MD | | | 2020 | Visit | | [address] | | | | | | [place] | | | | | | [phone] | | | | | | | | +--------+---------+ + + + documented as of this encounter Procedures + +--------+ + + + | Procedure Name | Priori | Date/Time | Associated Diagnosis | Comments | | | ty | | | | + +--------+ + + + | XR CHEST 1 VIEW | Routin | 02/11/2017 | | Results for this | | | e | 6:50 PM | | procedure are in the | | | | PST | | results section. | + +--------+ + + + documented in this encounter Results XR Chest 1 Vw (02/11/2017 6:50 PM PST) + + | Specimen | + + | | + + + + + | Narrative | Performed At | + + + | External films for comparison only - no result from [place]. | [facility] | + + + + +---------+ + + | Performing | Address | City/State/Zipcode | Phone Number | | Organization | | | | + +---------+ + + | [facility] | | | | + +---------+ + + documented in this encounter Visit Diagnoses Not on filedocumented in this encounter"
--- OUTSIDE RECORDS SUMMARY | ~2020-01-14 | XMS | Encounter Summary ---
Demographics + + + | Address | [address] | | | [place] [address] | + + + | Home Phone [...] #[place] | | | | | [address] | | + + + + + | Tanika Jean | ECON | Unknown | | + + + + + Care Team Providers + +------+ + | Care Manager Income Tax Name | Role | Phone | + +------+ + | Jose Angel Reina MD | PCP | | + +------+ + Reason for Visit +---------+--------+ + | Reason | Onset | Comments | | | Date | | +---------+--------+ + | Results | 05/26/ | | | | 2012 | | +---------+--------+ + Encounter Details +--------+ + + + + | Date | Type | Department | Care Team | Description | +--------+ + + + + | 05/26/ | Telephone | [facility] | Claudia Michelle, | Results | | 2012 | | PULMONARY [address] | RN | | | | | [place], | | | | | | [place] [address] | | | | | | [phone] | | | +--------+ + + + [...] Telephone Encounter - Claudia Michelle RN - 05/26/2012 11:09 AM SUSYNazario returned our call regarding his nocturnal pulse oximetry on room air. Advised per Dr Lowe that he is to continue using O2 at 3 l/m. Okay per patient. docubarrett in this encounter Plan of Treatment +--------+---------+ + + + | Date | Type | Specialty | Care Team | Description | +--------+---------+ + + + | 01/28/ | Office | Infectious Diseases | Sana Dawson | | | 2019 | Visit | | Jazmin Stringer MD | | | | | | [address] [facility] | | | | | | [place] [address] | | | | | | [phone] | | | | | | | | +--------+---------+ + + + | 04/19/ | Office | Pulmonology | Alfonso Wallace MD | | | 2020 | Visit | | [address] | | | | | | [place] | | | | | | [address] | | | | | | | | +--------+---------+ + + + documented as of this encounter Visit Diagnoses Not on filedocumented in this encounter"
--- OUTSIDE RECORDS SUMMARY | ~2020-01-14 | XMS | Encounter Summary ---
Demographics + + + | Address | [address] | | | [place] [address] | + + + | Home Phone [...] Author | [facility] | | | and [place] | + + + | Organization | [facility] | | | and [place] | + + + | Address | Unknown | + + + | Phone | Unavailable | + + + Support + + + + + | Name | Relationship | Address | Phone | + + + + + | Palak Aguilar | ECON | #[place] | | | | | [address] | | + + + + + | Tanika Jean | ECON | Unknown | | + + + + + Care Team Providers + +------+ + | Care Manager Strategic Sourcing Name | Role | Phone | + [...] | | | | | [facility] [facility] | [place] [address] | | | | | [place] [address] | | | | | | [phone] | | | +--------+ + + + [...] | | | | | [place] [address] | | | | | | [phone] | | | | | | | | +--------+---------+ + + + | 04/19/ | Office | Pulmonology | Alfonso Wallace MD | | | 2020 | Visit | | [address] | | | | | | [place] | | | | | | [phone] | | | | | | | [...] for comparison only - no result from [place]. | [facility] | + + + + +---------+ + + | Performing | Address | City/State/Zipcode | Phone Number | | Organization | | | | + +---------+ + + | [facility] | | | | + +---------+ + + documented in this encounter Visit Diagnoses Not on filedocumented in this encounter"
--- OUTSIDE RECORDS SUMMARY | ~2020-01-14 | XMS | Encounter Summary ---
Demographics + + + | Address | [address] | | | [place] [address] | + + + | Home Phone [...] #[place] | | | | | [address] | | + + + + + | Tanika Jean | ECON | Unknown | | + + + + + Care Team Providers + +------+ + | Care End Matcher Name | Role | Phone | + +------+ + PCP | Unavailable | + +------+ + Encounter Details +--------+ + + + + | Date | Type | Department | Care Team | Description | +--------+ + + + + | 04/20/ | Hospital | [facility] | [place], | | | 2011 | Encounter | MED CTR GENERIC OP | Ling Frazier MD | | | | | CONV DEPT [address] | | | | | | [place], | | | | | | [place] [address] | | | | | | [phone] | | | +--------+ + + + [...] | 0 | 02/25/20 | | | ([facility]) | the lungs Daily. | | | [...] | | | | | [place] [address] | | | | | | [phone] | | | | | | | | +--------+---------+ + + + | 04/19/ | Office | Pulmonology | Alfonso Wallace MD | | | 2020 | Visit | | [address] | | | | | | [place] | | | | | | [phone] | | | | | | | | +--------+---------+ + + + documented as of this encounter Visit Diagnoses Not on filedocumented in this encounter"
--- OUTSIDE RECORDS SUMMARY | ~2020-01-14 | XMS | Encounter Summary ---
Demographics + + + | Address | [address] | | | [place] [address] | + + + | Home Phone | | + + + | Preferred Language | Unknown | + + + | Marital Status | | + + + | Restorationism Affiliation | [id number] | + + + | Race | White | + + + | Ethnic Group | Not or | + + + Author + + + | Author | [facility] | | | and [place] | + + + | Organization | [facility] | | | and [place] | + + + | Address | Unknown | + + + | Phone | Unavailable | + + + Support + + + + + | Name | Relationship | Address | Phone | + + + + + | Palak Aguilar | ECON | [id number] | | | | | [address] | | + + + + + | Tanika Jean | ECON | Unknown | | + + + + + Care Team Providers + +------+ + | Care Temper Mill Roller Name | Role | Phone | + +------+ + | No, Physician | PCP | Unavailable | + +------+ + Reason for Referral Diagnostic/Screening (Routine) +--------+--------+ + + + + | Status | Reason | Specialty | Diagnoses / | Referred By | Referred To | | | | | Procedures | Contact | Contact | +--------+--------+ + + + + | Closed | | Radiology | Diagnoses | [place], | [facility] [address] | | | | | Pneumonia | MD Alfonso | [address] | | | | | of right | [address] | | | | | upper lobe | [address] | [address] | | | | | due to | [address] | [place], [place] | | | | | methicillin | [place], [place] | [address] | | | | | susceptible | [address] | Phone: | | | | | Staphylococc | Phone: | [phone] | | | | | us aureus | [phone] | Fax: | | | | | (MSSA) (HCC) | Fax: | [phone] | | | | | Procedures | [phone] | | | | | | CT Chest | | | | | | | wo Contrast | | | | | | | CT Chest wo | | | | | | [...] Closed | | Radiology | Diagnoses | [place], | [facility] [address] [address] | | | | | Pneumonia | MD Alfonso | [address] | | | | | of right | [address] | | | | | upper lobe | [address] | [address] | | | | | due to | [address] | [facility] [place] | | | | | methicillin | [place], [place] | [address] | | | | | susceptible | [address] | Phone: | | | | | Staphylococc | Phone: | [phone] | | | | | us aureus | [phone] | Fax: | | | | | (MSSA) (HCC) | Fax: | [phone] | | | | | Procedures | [phone] | | | | | | CT Chest | | | | | | | wo Contrast | | | | | | | CT Chest wo | | | | | | | Contrast | | | +--------+--------+ + + + + Encounter Details +--------+ + + + + | Date | Type | Department | Care Team | Description | +--------+ + + + + | 11/28/ | Hospital | [facility] | Alfonso Wallace MD | Pneumonia of right | | 2020 | Encounter | [facility] [address] | [address] | upper lobe due to | | | | [address] | [address] [place], [place] | methicillin | | | | [place], [place] | [address] | susceptible | | | | [address] | | Staphylococcus | | | | [phone] | | aureus (MSSA) ([facility]) | +--------+ + + + + Social [...] tablet by | 28 | 0 | 08/17/19 | | | amoxicillin-clavulan | mouth 2 times daily. | tablet | | 20 | 0 | | ate (AUGMENTIN) | | | | | | | 500-125 mg per | | [...] [address] | | | | | | [place] [address] | | | | | | [phone] | | | | | | | | +--------+---------+ + + + | 04/19/ | Office | Pulmonology | Alfonso Wallace MD | | | 2020 | Visit | | [address] | | | | | | [place] | | | | | | [address] | | | | | | | [...] | | | | | aureus (MSSA) ([facility]) | | + +--------+ + + + documented in this encounter Results CT Chest wo Contrast (11/29/2019 1:42 PM [...] by: Jam Arnold, | | | Yury Snow Date/Time: 11/30/2019 8:25 AM | | + [...] in size measuring 8.0 x 4.5 cm (06/26), previously | | | 8.0 x 4.5 [...] Procedure Note | + + | [place], [id number] - 11/30/2019 8:28 AM PDT | | [...] + | Diagnosis | + + | Pneumonia of right upper lobe due to methicillin susceptible Staphylococcus aureus | | (MSSA) (HCC) | + + documented in this encounter"
--- OUTSIDE RECORDS SUMMARY | ~2020-01-14 | XMS | Encounter Summary ---
Demographics + + + | Address | [address] | | | [place] [address] | + + + | Home Phone [...] #[id number] | | | | | [address] | | + + + + + | Tanika Jean | ECON | Unknown | | + + + + + Care Team Providers + +------+ + | Care Bobbin Painter Name | Role | Phone | + [...] Frazier MD | | | | | [place], | | | | | | [place] [address] | | | | | | [phone] | | | +--------+--------+ + + + [...] | | | | | [place] [address] | | | | | | [phone] | | | | | | | | +--------+---------+ + + + | 04/19/ | Office | Pulmonology | Alfonso Wallace MD | | | 2020 | Visit | | [address] | | | | | | [place] | | | | | | [phone] | | | | | | | [...]
--- OUTSIDE RECORDS SUMMARY | ~2020-01-14 | XMS | Clinical Summary ---
Demographics + + + | Address | [address] [address] [facility] | | | [place] [address] | + + + | Home Phone | | + + + | Preferred Language | Unknown | + + + | Marital Status | Single | + + + | Sikhism Affiliation | Unknown | + + + [...] Team Providers + +------+ + | Care Truck Operator Name | Role | Phone | + +------+ + | Jose Angel Reina MD | PCP | | + +------+ + Source Comments NIESHA is fully live on both EpicCare Ambulatory and EpicCare InPatient[facility] Allergies Not on File Medications + + + +---------+------+------+-------+ | Medication | Sig | Dispensed | Refills | Star | End | Statu | | | | | | t | Date | s | | | | | | Date | | | + + + +---------+------+------+-------+ | LISINOPRIL 2.5 mg | Take by mouth once | | 0 | 04/0 | | Activ | | oral tablet | daily. | | | 04/24 | | e | | | | | | 14 | | | + + + +---------+------+------+-------+ | ROPINIROLE 1 mg | Take by mouth once | | 0 | 04/1 | | Activ | | oral tablet | daily. | | | 04/24 | | e | | | | | | 14 | | | + + + +---------+------+------+-------+ | ATORVASTATIN 80 mg | Take by mouth once | | 0 | 04/0 | | Activ | | oral tablet | daily. | | | 12/23 | | e | | | | | | 14 | | | + + + +---------+------+------+-------+ | DALIRESP 500 mcg | Take by mouth once | | 0 | 03/2 | | Activ | | oral tablet | daily. | | | 1/20 | | e | | | | | | 14 | | | + + + +---------+------+------+-------+ | METFORMIN 500 mg | Take by mouth two | | 0 | 04/0 | | Activ | | oral tablet | times daily. | | | 5/20 | | e | | | | | | 14 | | | + + + +---------+------+------+-------+ | EPITOL 200 mg oral | Take by mouth four | | 0 | 02/1 | | Activ | | tablet | times daily. | | | 0/20 | | e | | | | | | 14 | | | + + + +---------+------+------+-------+ | TIZANIDINE 2 mg | Take by mouth as | | 0 | 04/1 | | Activ | | oral tablet | needed. | | | 0/20 | | e | | | | | | 14 | | | + + + +---------+------+------+-------+ | aspirin (KETTY | Take 325 mg by mouth | | 0 | | | Activ | | ASPIRIN) 325 mg oral | once daily. | | | | | e | | tablet | | | | | | | + + + +---------+------+------+-------+ | SENNOSIDES (SENNA | Take by mouth two | | 0 | | | Activ | | LAX ORAL) | times daily. | | | | | e | + + + +---------+------+------+-------+ | acetaminophen | Take 500 mg by mouth | | 0 | | | Activ | | (TYLENOL EXTRA | as needed. | | | | | e | | STRENGTH) 500 mg | | | | | | | | oral tablet | | | | | | | + + + +---------+------+------+-------+ | | Inhale 1 puff two | | 0 | | | Activ | | fluticasone-salmeter | times daily. | | | | | e | | ol 500-50 mcg/dose | | | | | | | | inhalation disk with | | | | | | | | device | | | | | | | + + + +---------+------+------+-------+ | SPIRIVA WITH | once daily. | | 0 | 03/1 | | Activ | | HANDIHALER 18 mcg | | | | 6/20 | | e | | inhalation capsule, | | | | 14 | | | | w/inhalation device | | | | | | | + + + +---------+------+------+-------+ | PROAIR HFA 90 | Inhale three times | | 0 | 02/2 | | Activ | | mcg/actuation | daily. | | | 5/20 | | e | | inhalation HFA | | | | 14 | | | | aerosol inhaler | | | | | | | + + + +---------+------+------+-------+ | MISCELLANEOUS | once daily at | | 0 | | | Activ | | MEDICAL SUPPLY (RX | bedtime. Use as | | | | | e | | HOME OXYGEN) | directed. 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
--- OUTSIDE RECORDS SUMMARY | ~2020-01-14 | XMS | Encounter Summary ---
Demographics + + + | Address | [address] | | | [place] [address] | + + + | Home Phone [...] Author | [facility] | | | and [place] | + + + | Organization | [facility] | | | and [place] | + + + | Address | Unknown | + + + | Phone | Unavailable | + + + Support + + + + + | Name | Relationship | Address | Phone | + + + + + | Palak Aguilar | ECON | [address] | | | | | [address] | | + + + + + | Tanika Jean | ECON | Unknown | | + + + + + Care Team Providers + +------+ + | Care Stretch Press Operator Name | Role | Phone | + +------+ + | Jose Angel Reina MD | PCP | | + +------+ + Encounter Details +--------+ + + + + | Date | Type | Department | Care Team | Description | +--------+ + + + + | 01/19/ | Hospital | [facility] | Roderick Williamson MD 1100 | Cerebellar ataxia | | 2012 | Encounter | [facility] | JULIÁN CHANG | ([facility]) | | | | [address] | [address], | | | | | [facility] [place] | [place] [address] | | | | | [address] | [phone] | | | | | [phone] | | | +--------+ + + + [...] puff inhaled twice | | 0 | 04/16/20 | | | fluticasone-salmeter | daily | [...] mcg into | | 0 | | 12/07/201 | | (SPIRIVA) 18 mcg | the lungs Daily. | | | | 3 | | inhalation | | | | | | | capsuleIndications: | | | | | | | COPD exacerbation | | | | | | | ([facility]) | | | | | | + [...] [address]CE | | | | | | [place] [address] | | | | | | [phone] | | | | | | | | +--------+---------+ + + + | 04/19/ | Office | Pulmonology | Alfonso Wallace MD | | | 2020 | Visit | | [address] | | | | | | [place] | | | | | | [address] | | | | | | | [...] | | | [facility] | | | TK | | | L ? | | | MEDICAL | | | | | | CENTER - | | | | | | LABORATORY | | + +---------+ + + + | White Blood | 9.0 | 4.0 - 11.0 K/uL | [facility] | | | Cells | | | [facility] | | | | | | MEDICAL | | | | | | CENTER - | | | | | | LABORATORY | | + +---------+ + + + | Red Blood | 4.83 | 4.30 - 5.70 | [facility] | | | Cells | | M/uL | . TK | | | | | | MEDICAL | | | | | | CENTER - | | | | | | LABORATORY | | + +---------+ + + + | Hemoglobin | 15.1 | 13.5 - 18.0 | [facility] | | | | | gm/dL | [facility] | | | | | | MEDICAL | | | | | | CENTER - | | | | | | LABORATORY | | + +---------+ + + + | Hematocrit | 46.1 | 40.0 - 51.0 % | [facility] | | | | | | [facility] | | | | | | [...] | | Basophils | | | [facility] | | | | | | MEDICAL | | | | | | CENTER - | | | | | | LABORATORY | | + +---------+ + + + + + | Specimen | + + | | + + + + + + + | Performing | Address | City/State/[facility] | Phone Number | | Organization | | | | + + + + + | [facility] | [address] | [place] | [phone] | | [facility] | | [address] | | | - LABORATORY | | | | + + + + + | [facility] | [address] | [place] | | | [facility] | | [address], [facility] | | | - LABORATORY | | | | + + + + + Ceruloplasmin (01/19/2013 3:42 PM PDT) + + + + + + | Component | Value | Ref Range | Performed | Pathologist | | | | | At | Signature | + + + + + + | CERULOPLASM | 34Comment: Testing | 7 - 220 mg/dL | [facility] | | | [place] | Performed: [place], [address] | | [facility] | | | | [address], [place] | | MEDICAL | | | | [address] CLIA: [id number] | | CENTER - | | | | | | LABORATORY | | + + + + + + + + | Specimen | + + | | + + + + + + + | Performing | Address | City/State/Zipcode | Phone Number | | Organization | | | | + + + + + | [facility] | [address] | [place], [place] | [phone] | | [facility] | | [facility] | | | - LABORATORY | | | | + + + + + | [facility] | [address] | [place], [place] | | | [facility] | | [address] [place] [address] | | | - LABORATORY | | [...] herol | METHOD CHANGE HPLC | | [facility] | | | | Corrected on 02/06 [...] | | | | | determined by [facility] | | | | | | Division [...] decisions. | | | | | | [facility] [...] [place], | | | | | | [place] [address] | | | | | | CLIA: [id number] | | | | + + + + + + + + | Specimen | + + | | + + + + + + + | Performing | Address | City/State/Zipcode | Phone Number | | Organization | | | | + + + + + | [facility] | [address] | [place] | [phone] | | [facility] | | [address] | | | - LABORATORY | | | | + + + + + | [facility] | [address] | [place] | | | [facility] | | [address], [facility] | | | - LABORATORY | [...] | [facility]. [facility] | | | | [facility] | | MEDICAL | | | [...] + | [facility] | [address] | [place], [place] | [phone] | | [facility] | | [address] | | | - LABORATORY | | | | + + + + + | [facility] | [address] | [place], [place] | | | [facility] | | [address] [place] [address] | | | - LABORATORY | | | | + + + + + Comprehensive Metabolic Panel (01/19/2013 3:42 PM PDT) + + + + + + | Component | Value | Ref Range | Performed | Pathologist | | | | | At | Signature | + + + + + + | Glucose | 91 | 70 - 109 mg/dL | [facility] | | | | | | ST. [...] | 0.84 | 0.60 - 1.30 | [facility] | | | | | mg/dL | [facility] | | | | | | [...] | | ine Ratio | | | TK | | | | | | MEDICAL | | | | | | CENTER - | | | | | | LABORATORY | | + + + + + + | Na | 140 | 136 - 149 mEq/L | [facility] | | | | | | ST[facility] [...] | 13.1 | 6.0 - 17.0 | [facility] | | | | | [...] [address] | [place] | [phone] | | [facility] | | [address] | | | - LABORATORY | | | | + + + + + | [facility] | [address] | [place] | | | [facility] | | [address] | | | - LABORATORY | | [...] + | [facility] | [address] | [place], [place] | [phone] | | [facility] | | [address] | | | - LABORATORY | | | | + + + + + | [facility] | [address] | [place], [place] | | | [facility] | | [address], [facility] | | | - LABORATORY | [...] [facility] | | | [place] | Performed: [facility], [address] | | [facility] [facility] | | | | [address] [place] | | MEDICAL | | | | [id number]: [id number] | | CENTER - | | | [...] + | [facility] | [address] | [place] | [phone] | | [facility] | | [address] | | | - LABORATORY | | | | + + + + + | [facility] | [address] | [place] | | | [facility] | | [address] | | | - LABORATORY | | [...] performed on the Josr | uIU/mL | [facility] | | | | [facility] [...] + | [facility] | [address] | [place] | [phone] | | [facility] | | [address] | | | - LABORATORY | | | | + + + + + | [facility] | [address] | [place] | | | [facility] | | [address], [facility] | | | - LABORATORY | [...] by | | | | | | [facility] | | | | | | [...] managementdecisions. | | | | | | [facility] is authorized | | [...] Juan, | | | | | | [place] [address] | | | | | | CLIA: [id number] | | | | + + + + + + + + | Specimen | + + | Blood specimen | | (specimen) | + + + + + + + | Performing | Address | City/State/Zipcode | Phone Number | | Organization | | | | + + + + + | [facility] | [address] | [place] | [phone] | | [facility] | | [address] | | | - LABORATORY | | | | + + + + + | [facility] | [address] | [place], [place] | | | [facility] | | [address] | | | - LABORATORY | [...] + | [facility] | [address] | [place] | [phone] | | [facility] | | [address] | | | - LABORATORY | | | | + + + + + | [facility] | [address] | [place] | | | [facility] | | [address] | | | - LABORATORY | | | | + + + + + Comprehensive Metabolic Panel (01/19/2013 3:38 PM PDT) + + + + + + | Component | Value | Ref Range | Performed | Pathologist | | | | | At | Signature | + + + + + + | Glucose | 91 | 70 - 109 mg/dL | [facility] | | | | [...] 7 | 7 - 18 mg/dL | [facility] | | | | [...] + | [facility] | [address] | [place], [place] | [phone] | | [facility] | | [address] | | | - LABORATORY | | | | + + + + + | [facility] | [address] | [place], [place] | | | [facility] | | [address], [facility] | | | - LABORATORY | | | | + + + + + CBC with Differential (01/19/2013 3:38 PM PDT) + +---------+ + + + | Component | Value | Ref Range | Performed | Pathologist | | | | | At | Signature | + +---------+ + + + | White Blood | 9.0 | 4.0 - 11.0 K/uL | [facility] | | | Cells | | | [facility] | | | | | | MEDICAL | | | | | | CENTER - | | | | | | LABORATORY | | + +---------+ + + + | Red Blood | 4.83 | 4.30 - 5.70 | [facility] | | | Cells | | M/uL | [facility] | [...] | | Eosinophils | | | [facility] | | [...] | | Neutrophils | | | [facility] | | | | | | MEDICAL | | | | | | CENTER - | | | | | | LABORATORY | | + +---------+ + + + | Absolute | 3.0 | 0.6 - 3.2 K/uL | [facility] | | | Lymphocytes | | | [facility] | | [...] + | [facility] | [address] | [place], [place] | [phone] | | [facility] | | [address] | | | - LABORATORY | | | | + + + + + | [facility] | [address] | [place], [place] | | | [facility] | | [address], [facility] | | | - LABORATORY | | | | + + + + + documented in this encounter Visit Diagnoses + + | Diagnosis | + + | Cerebellar ataxia (HCC) Other cerebellar ataxia | + + documented in this encounter"
--- OUTSIDE RECORDS SUMMARY | ~2020-01-14 | XMS | Encounter Summary ---
Demographics + + + | Address | [address] | | | [place] [address] | + + + | Home Phone [...] #[address] | | | | | [address] | | + + + + + | Tanika Jean | ECON | Unknown | | + + + + + Care Team Providers + +------+ + | Care Commercial Designer Name | Role | Phone | [...] | Karlos Gatica MD | [address] | | | | | shoulder | [address] | [place], | | | | | pain | [address] | [place] | | | | | Rotator cuff | [place], | [address] | | | | | tendonitis, | [place] [address] | Phone: | | | | | right | Phone: | [phone] | | | | | Rotator cuff | [phone] | Fax: | | | | | tear | Fax: | [phone] | | | | | arthropathy | [phone] | | | | | | of [...] | Karlos Gatica MD | [address] | | | | | shoulder | [address] | [place], | | | | | pain | [address] | [place] | | | | | Rotator cuff | [place], | [address] | | | | | tendonitis, | [place] [address] | Phone: | | | | | right | Phone: | [phone] | | | | | Rotator cuff | [phone] | Fax: | | | | | tear | Fax: | [phone] | | | | | arthropathy | [phone] | | | | | | of [...] + + | 04/20/ | Hospital | [facility] | Karlos Craig MD | Right shoulder pain; | | 2015 | Encounter | MED CTR MRI [address] | [address] [place] | Rotator cuff | | | | [place], | [address] [place] [address] | tendonitis, right; | | | | [place] [address] | [address] | Rotator cuff tear | | | | [phone] | | arthropathy of right | | | | | Karlos Craig MD | shoulder | | | | | [address] | | | | | | [place] | | | | | | [address] | | | | | | | [...] 99 | | | | | | ([facility]) | months | | | | | [...] + + + +---------+ + + | STEPHANIIVA HANDFILIPPOALEDaryl | INHALE ONE CAPSULE | 30 | 10 | 03/11/20 | | | 18 MCG inhalation | EVERY DAY | capsule | | 13 | 5 | | capsule | | | | | | + + + +---------+ + + documented as of this encounter Miscellaneous Notes Miscellaneous - [facility] - 05/05/2014 12:00 AM PST iscellaneous - ONBASE SCAN [facility] - 05/05/2014 12:00 AM PSTEle ctronically signed by [facility] at 05/05/2014 3:33 PM PSTMiscellaneous - ONBASE SCAN [facility] T - 05/05/2014 12:00 AM PST iscellaneous - ONBASE SCAN [facility] - 05/05/2014 12:00 AM PSTElectronically signed by [facility] at 05/05/2014 3:33 PM PSTMiscellaneous - ONBASE SCAN [facility] - 05/05/2014 12:00 AM PSTElect ronically signed by [facility] at 05/05/2014 3:33 PM PSTdocumented in this encounter Plan of [...] [address] | | | | | | [place] [address] | | | | | | [phone] | | | | | | | | +--------+---------+ + + + | 04/19/ | Office | Pulmonology | Alfonso Wallace MD | | | 2020 | Visit | | [address] | | | | | | [place] | | | | | | [address] | | | | | | | [...] + | MISCELLANEOUS LAB | | | [phone] | + +---------+ + + | MISCELANIOUS LAB | | | [phone] | + +---------+ + + documented in [...]
--- OUTSIDE RECORDS SUMMARY | ~2020-01-14 | XMS | Encounter Summary ---
Demographics + + + | Address | [address] | | | [place] [address] | + + + | Home Phone [...] [id number] | | | | | [address] | | + + + + + | Tanika Jean | ECON | Unknown | | + + + + + Care Team Providers + +------+ + | Care Envelope Stuffer Name | Role | Phone | + [...] | | | | presenting | | [facility] | | | | | hazards to | | [address] Phone: | | | | | health | | [phone] | | | | | Centrilobula | | Fax: | | | | | r emphysema | | [phone] | | | | | ([facility]) | | | | | | | Procedures | | | | | | | BRONCHOSCOPY | | | | | | | | | | | | | | ELECTROMAGNE | | | | | | | TIC | | | | | | | NAVIGATION | | | | | | | [[id number]] | | | +--------+--------+ + + + + Encounter Details +--------+ + + + + | Date | Type | Department | Care Team | Description | +--------+ + + + + | 08/14/ | Anesthesia | [facility] | Hugo Yeung | | | 2019 | Event | [facility] | [place] [address] | | | | | INTRA [address] | | | | | [address] [place], [place] | [place], [place] | | | | | [address] | [address] | | | | | [phone] | [phone] | | | | | | | | | | | | Rob Castillo MD | | | | | | [address] | | | | | | [place] [address] | | | | | | [phone] | | | | | | | [...] 08/15/19 1037 by | | eral | [id number] catheter system; | Venice Dunn RN | [...] + + documented as of this encounter OR Notes Anesthesia Postprocedure Evaluation - Hugo Yeung CRNA - 08/15/2019 9:04 AM P DT ANESTHESIA POSTANESTHESIA EVALUATION Nazario Gipsonock Sr. 69 y.o. male 1950 [id number] Procedure(s) BRONCHOSCOPY ELECTROMAGNETIC NAVIGATION (Bilateral Bronchus) Cooperates? Yes Mental Status Performs simple tasks. Respiratory Satisfactory - Airway patent (self maintained). Cardiovascular Satisfactory - Blood pressure and heart rate acceptable Temperature Satisfactory Pain Satisfactory N/V Control Satisfactory Hydration Satisfactory - No signs of dehydration Adverse Events ADVERSE EVENTS: No adverse events Vitals Value Taken Time Temp 36.3 C (97.4 F) 08/15/2019 8:59 AM Pulse 95 08/15/2019 9:00 AM Resp 27 08/15/2019 9:00 AM BP 100/51 08/15/2019 9:00 AM Arterial Line BP Arterial Line BP 2 SpO2 94 % 08/15/2019 9:00 AM Vitals shown include unvalidated device data. Electronically signed by Hugo Yeung CRNA 08/15/2019 9:04 AM [facility] nesthesia Procedure Notes - Hugo Yeung CRNA - 08/15/19 8:14 AM PDTAssociated Order(s): AirwayAnesthesia Airway Placement 08/15/2019 8:08 AM Preprocedure check: patient identified, oxygen, airway assessed, patient reassessment prior to induction, airway equipment checked and suction Mask ventilation: easy Successful technique: Mac Laryngoscope blade size: 3 Airway grade: 2a (Partial view of glottis) Other equipment: stylette Attempts: 1 Airway type: endotracheal Size: 8.5 Cuffed: cuffed Route, reference point: center of mouth Tube depth: 21 cm Tube secured with: adhesive tape Trauma: none Tube placement verification: bilateral chest rise and carbon dioxide detection Performing provider: Hugo Yeung CRNA Authorizing provider: Hugo Yeung CRNA Please see intraoperative grid for any additional medication documentation. nesthesia Preprocedure Evaluation - Rob Castillo MD - 08/15/2019 7:18 AM PDT ANESTHESIA PREANESTHESIA EVALUATION Nazario Aguilar Sr. 69 y.o. male 1950 [id number] Procedure(s): BRONCHOSCOPY ELECTROMAGNETIC NAVIGATION (Bilateral Bronchus) Medical,anesthesia, drug, allergy histories reviewed, NPO status verified. (-) perioperative beta-kathleen/statin not given/taken, reason: not applicable/Not taking Be ta-Kathleen. Review of Systems / Med History Anesthesia History RESP.ARREST DURING EYE SURGERY. Family Anesthesia History Family Anesthesia Negative except where noted below. Cardiovascular (+) hypertension . Pulmonary (+) shortness of breath, Chronic Obstructive Pulmonary Disease.(+) asthma.(+) tobacco use.( +) current smoker and patient smoked within 24 hours. Gastrointestinal/Hepatic (+) hiatal hernia, hypercholesterolemia. Renal Negative except where noted below. Endocrine (+) Diabetes: type 2. Hematology/Other (+) anemia. Cancer Negative except where noted below. Neuromuscular (+) back pain. (+) seizures: Physical Exam Airway MP II, TM >3 FB, Neck: full ROM, extends >30 degrees. Jaw protrusion normal. Facial torrey r present: No Dental (+) dentures-lower and dentures-upper. CV Rhythm regular. Rate normal. Pulm (+) decreased breath sounds. Neuro grossly normal. Anesthesia Plan ASA: 4 Type: General. Induction: Intravenous. Potential problems: None anticipated. Monitors: Standard ASA monitors. Consent statement: Anesthetic plan, alternatives, risks and benefits discussed with patient. Consenting person understands and agrees to proceed. documented in this enco unter Miscellaneous Notes Anesthesia Post-op Handoff - Hugo Yeung CRNA - 08/15/2019 9:03 AM PDTFormatt ing of this note might be different from the original. ANESTHESIA HANDOFF NOTE Nazario Doan Jeff Sr. 69 y.o. male 1950 [id number] BRONCHOSCOPY ELECTROMAGNETIC NAVIGATION (Bilateral Bronchus) HANDOFF NOTE Handoff Protocol Used: post-procedure handoff checklist completed The following were completed during the transfer of care: 1. Identification of patient 2. Identification of responsible practitioner (primary service) 3. Discussion of pertinent medical history 4. Discussion of the surgical/procedure course (procedure, reason for surgery, procedure pe rformed) 5. Intraoperative anesthetic management and issues/concerns 6. Expectations/plans for the early post-procedure period 7. Opportunity for questions and acknowledgement of understanding of report from receiving team Patient Location: Phase I Condition: responds to stimuli and sedated Airway/O2: face mask with O2 Multimodal analgesia: multimodal analgesia used between 6 hours prior to anesthesia start t o PACU discharge The significant anesthesia concerns and VS in Epic were reviewed with the receiving team. Hugo Yeung CRNA 08/15/2019 9:03 AM [facility] documented in this encounter Plan of Treatment [...] | | | | | [place] [address] | | | | | | [phone] | | | | | | | | +--------+---------+ + + + | 04/19/ | Office | Pulmonology | Alfonso Wallace MD | | | 2020 | Visit | | [address] | | | | | | [place] | | | | | | [address] | | | | | | | [...]
--- OUTSIDE RECORDS SUMMARY | ~2020-01-14 | XMS | Encounter Summary ---
Demographics + + + | Address | [address] | | | [place] [address] | + + + | Home Phone [...] #[id number] | | | | | [address] | | + + + + + | Tanika Jean | ECON | Unknown | | + + + + + Care Team Providers + +------+ + | Care Lead Sprinkler Name | Role | Phone | + [...] Frazier MD | | | | | [place], | | | | | | [place] [address] | | | | | | [phone] | | | +--------+--------+ + + + [...] | | | | | [place] [address] | | | | | | [phone] | | | | | | | | +--------+---------+ + + + | 04/19/ | Office | Pulmonology | Alfonso Wallace MD | | | 2020 | Visit | | [address] | | | | | | [place] | | | | | | [phone] | | | | | | | [...]
--- OUTSIDE RECORDS SUMMARY | ~2020-01-14 | XMS | Encounter Summary ---
Demographics + + + | Address | [address] | | | [place] [address] | + + + | Home Phone [...] + + + | Author | [facility] | | | and [place] | + + + | Organization | [facility] | | | and [place] | + + + | Address | Unknown | + + + | Phone | Unavailable | + + + Support + + + + + | Name | Relationship | Address | Phone | + + + + + | Palak Aguilar | ECON | [address] | | | | | [address] | | + + + + + | Tanika Jean | ECON | Unknown | | + + + + + Care Team Providers + +------+ + | Care Supervisor [employer] Name | Role | Phone | + [...] + + | 12/20/ | Office | [facility] | Karlos Craig, | Right shoulder pain | | 2013 | Visit | PHYSIATRY [address] | [address] | (Primary Dx); | | | | [address] | [place] | Rotator cuff | | | | [place] | [address] | tendonitis, right; | | | | [address] | | Lumbalgia; Facet | | | | [phone] | | arthropathy, lumbar; | | | [...] office note has been dictated. Job ID# [id number] signed by Karlos Craig MD at 12/20/2013 12:24 PM Arleen Ashby RN - 12/20/2013 11:35 AM PDTPatient states intermittent pain to right shoulder, no pain a t this time. Patient states improvement to right shoulder since having injection. Electronic ally signed by Arleen Kern RN at 12/20/2013 12:24 PM Karlos Garcia MD - 12:00 AM PDT [facility] [address] [place] [address] FAX: [phone] OFFICE VISIT PHYSICAL MEDICINE REHABILITATION PROGRESS NOTE PRIMARY CARE PROVIDER: Jose Angel Reina MD DATE OF SERVICE: 12/20/2013 PATIENT IDENTIFICATION: A 63-year-old male with history of right shoulder pain, low back pa in and ataxia. HISTORY OF PRESENT ILLNESS: Mr. Aguilar was last seen by nd 11/09/2013. At that time he had right [...] Greater than 25 yumiko ellen was spent [id number] today with Mr. Aguilar, over half of which was spent formulating and discussing his medical treatment plan. Karlos Craig Jr, MD PURVI / RENEE JOB #: [id number] cc: Peter Reina MD documented in this encounter Plan of Treatment +--------+---------+ + + + | Date | Type | Specialty | Care Team | Description | +--------+---------+ + + + | 01/28/ | Office | Infectious Diseases | Lupe Dawsona | | | 2019 | Visit | | Jazmin Stringer MD | | | | | | [address] | | | | | | [place] [address] | | | | | | [phone] | | | | | | | | +--------+---------+ + + + | 04/19/ | Office | Pulmonology | Alfonso Wallace MD | | | 2020 | Visit | | [address] | | | | | | [place] | | | | | | [address] | | | | | | | [...]
--- OUTSIDE RECORDS SUMMARY | ~2020-01-14 | XMS | Encounter Summary ---
Demographics + + + | Address | [address] | | | [place] [address] | + + + | Home Phone | | + + + | Preferred Language | Unknown | + + + | Marital Status | | + + + | Muslim Affiliation | 1061 | + + + | Race | White | + + + | Ethnic Group | Not or | + + + Author + + + | Author | [facility] | | | and [place] | + + + | Organization | [facility] | | | and [place] | + + + | Address | Unknown | + + + | Phone | Unavailable | + + + Support + + + + + | Name | Relationship | Address | Phone | + + + + + | Palak Aguilar | ECON | [address] | | | | | [address] | | + + + + + | Tanika Jean | ECON | Unknown | | + + + + + Care Team Providers + +------+ + | Care Electricity Trader Name | Role | Phone | + [...] + + | 06/14/ | Office | [facility] [place] | Chrissy, | Need for vaccination | | 2014 | Visit | PULMONARY [address] | Ling Frazier MD | with 13-polyvalent | | | | [place], | | pneumococcal | | | | [place] [address] | | conjugate vaccine | | | | [phone] | | (Primary Dx); COPD | | | | | | (chronic obstructive | | | | | | pulmonary disease); | | | | | | 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 It is [...] smoke . You might try calling [facility] and see if they offer classes on quitting smoking. [facility] offers free smoking cessation classes. We [...] the original. Pulmonary Follow Up HPI Nazario Doan Jeff Álvarez is a 63 y.o. male patient of [...] or a bout 1 lap around the [place]. He is doing physical therapy, but he [...] [facility]. He reports good compliance. He [...] tablet Take 81 mg by mouth Daily. qfbtpwc-oapnkecfcjcro-wrxmmyrq (HEADACHE RELIEF) 250-250-65 MG per tablet Take [...] made to ensure accuracy; however, inadvertent computerized policy cancellation clerk errors may be pre sent. documented in [...] [address] | | | | | | [place] [address] | | | | | | [phone] | | | | | | | | +--------+---------+ + + + | 04/19/ | Office | Pulmonology | Alfonso Wallace MD | | | 2020 | Visit | | [address] | | | | | | [place] | | | | | | [address] | | | | | | | [...]
--- OUTSIDE RECORDS SUMMARY | ~2020-01-14 | XMS | Encounter Summary ---
Demographics + + + | Address | [address] | | | [place] [address] | + + + | Home Phone [...] + | Author | [facility] | | | and [place] | + + + | Organization | [facility] | | | and [place] | + + + | Address | Unknown | + + + | Phone | Unavailable | + + + Support + + + + + | Name | Relationship | Address | Phone | + + + + + | Palak Aguilar | ECON | [address] | | | | | [address] | | + + + + + | Tanika Jean | ECON | Unknown | | + + + + + Care Team Providers + +------+ + | Care Filler Block Inserter Remover Name | Role | Phone | + +------+ + | Jose Angel Reina MD | PCP | | + +------+ + Encounter Details +--------+ + + + + | Date | Type | Department | Care Team | Description | +--------+ + + + + | 12/22/ | Documentati | [facility] | Roderick Williamson MD [address] | | | 2012 | on | [facility] [address] | | | | | [address] [facility], | [address], | | | | | [address] [place] | [place] [address] | | | | | [place] [address] | [phone] | | | | | [phone] | | | +--------+ + + + [...] documented as of this encounter Progress Notes Leila Castaneda RN - 12/22/2012 8:21 AM PDTFaxed order for MRI to [facility] ATTN: Stephanie. d ocumented in this encounter Plan of Treatment +--------+---------+ + + + | Date | Type | Specialty | Care Team | Description | +--------+---------+ + + + | 01/28/ | Office | Infectious Diseases | Sana Dawson | | | 2019 | Visit | | Jazmin Stringer MD | | | | | | [address] [facility] [facility] | | | | | | [place] [address] | | | | | | [phone] | | | | | | | | +--------+---------+ + + + | 04/19/ | Office | Pulmonology | Alfonso Wallace MD | | | 2020 | Visit | | [address] | | | | | | [place] | | | | | | [address] | | | | | | | | +--------+---------+ + + + documented as of this encounter Visit Diagnoses Not on filedocumented in this encounter"
--- OUTSIDE RECORDS SUMMARY | ~2020-01-14 | XMS | Encounter Summary ---
Demographics + + + | Address | [address] | | | [place] [address] | + + + | Home Phone | | + + + | Preferred Language | Unknown | + + + | Marital Status | | + + + | Restorationist Affiliation | 1061 | + + + | Race | White | + + + | Ethnic Group | Not or | + + + Author + + + | Author | [facility] | | | and [place] | + + + | Organization | [facility] | | | and [place] | + + + | Address | Unknown | + + + | Phone | Unavailable | + + + Support + + + + + | Name | Relationship | Address | Phone | + + + + + | Palak Daugherty | ECON | [address] | | | | | [address] | | + + + + + | Tanika Jean | ECON | Unknown | | + + + + + Care Team Providers + +------+ + | Care Real Estate Coordinator Name | Role | Phone | [...] | | | | | pain | [address] | | | | | | Rotator cuff | [place], | | | | | | tear | [place] [address] | | | | | | arthropathy | Phone: | | | | | | of right | [phone] | | | | | | shoulder | Fax: | | | | | | | [phone] | | +--------+ + + + + + Reason for Visit + + + | Reason | Comments | + + + | Shoulder Pain | | + + + Encounter Details +--------+---------+ + + + | Date | Type | Department | Care Team | Description | +--------+---------+ + + + | 05/11/ | Office | [facility] [place] | Karlos Craig, | Right shoulder pain | | 2014 | Visit | PHYSIATRY [address] | [address] | (Primary Dx); | | | | [address] | [place] | Rotator cuff tear | | | | [place] | [address] | arthropathy of right | | | | [address] | | shoulder | | | | [phone] | | | +--------+---------+ + + + [...] MD - 05/11/2014 2:25 PM PST [facility] PHYSIATRY [address] [place] [address] OFFICE NOTE KARLOS CRAIG JR, MD Patient: KEVIN DAUGHERTY Admitting: MR #: [id number] LOC: PT TYPE: Adm Date: 05/11/2014 : [...] ALLERGIES: LEVOFLOXACIN and CHANTIX. CURRENT MEDICATIONS: Albuterol. Titylxf-bbyuuaozyjmoo-qfaffrqo. Lipitor. Carbamazepine. Vitamin B12. Valium. Flonase. Advair [...] 05/11/2014 14:25:03 Transcribed on 05/12/2014 03:00:15 by lo job# [id number] Confirmation #: [id number] cc: LYN FIELDS MD 9:1 0 AM Karlos Berumen MD - 05/11/2014 12:54 PM PSTThis office note has been dictated. Job ID# [id number] signed by Karlos Craig MD at 05/11/2014 [...] | | | | | [place] [address] | | | | | | [phone] | | | | | | | | +--------+---------+ + + + | 04/19/ | Office | Pulmonology | Alfonso Wallace MD | | | 2020 | Visit | | [address] | | | | | | [place] | | | | | | [address] | | | | | | | | +--------+---------+ + + + + + +--------+ + [...]
--- OUTSIDE RECORDS SUMMARY | ~2020-01-14 | XMS | Encounter Summary ---
Demographics + + + | Address | [address] | | | [place] [address] | + + + | Home Phone [...] [address] | | | | | [address] | | + + + + + | Tanika Jean | ECON | Unknown | | + + + + + Care Team Providers + +------+ + | Care Yard Coupler Name | Role | Phone | + +------+ + | Jose Angel Reina MD | PCP | | + +------+ + Reason for Referral Rehabilitation (Routine) +--------+ + + + + + | Status | Reason | Specialty | Diagnoses / | Referred By | Referred To | | | | | Procedures | Contact | Contact | +--------+ + + + + + | Closed | Specialty | Physical | Diagnoses | | Karlos Craig | | | Services | Medicine and | Leg | Chrissy, | [address] | | | Required | Rehabilitatio | weakness | [address], | [address] | | | | n | | [address] | [place], | | | | | | [address] | [place] [address] | | | | | | [place], | Phone: | | | | | | [place] [address] | [phone] | | | | | | | Fax: | | | | | | | [phone] | +--------+ + + + + + Reason for Visit + + + | Reason | Comments | + + + | Follow-up | | + + + Encounter Details +--------+---------+ + + + | Date | Type | Department | Care Team | Description | +--------+---------+ + + + | 11/21/ | Office | [facility] | Offenstein, | COPD (chronic | | 2012 | Visit | PULMONARY [address] | Ling Frazier MD | obstructive | | | | [place], | | pulmonary disease) | | | | [place] [address] | | (HCC) (Primary Dx); | | | | [phone] | | Nocturnal hypoxemia; | | | | | | Chest pain; Leg | | | | | | weakness; Tobacco | | | | | | abuse | +--------+---------+ + + + Social [...] | | Comments: currently smoking up to 1/2 [...] + + + | Blood Pressure | 132/78 | 11/21/2012 2:02 PM | | | | | PDT | | + + + + + | Pulse | 84 | 11/21/2012 2:02 PM | | | | | PDT | | + + + + + | Temperature | - | - | | + + + + + | Respiratory Rate | - | - | | + + + + + | Oxygen Saturation | 95% | 11/21/2012 2:02 PM | | | | | PDT | | + + + + + | Inhaled Oxygen | - | - | | | Concentration | | | | + + + + + | Weight | 104.3 kg (230 lb) | 11/21/2012 2:02 PM | | | | | PDT | | + + + + + | Height | 175.3 cm (5' 9") | 11/21/2012 2:02 PM | | | | | PDT | | + + + + + | Body Mass Index | 33.97 | 11/21/2012 2:02 PM | | | | | PDT | | + + + + + documented in this encounter Patient Instructions Patient Instructions Ling Lowe MD - 11/21/2012 2:44 PM PDTPlease make sure yo u tell Dr. Reina about your chest pain. I put in a referral for evaluation of the leg weakness. Stay on oxygen 3L at night. No medication changes today. documented in this encounter Progress Notes Ling Lowe MD - 11/21/2012 2:17 PM PDTFormatting of this note might be differe nt from the original. Pulmonary Follow Up Note Ling Lowe MD [place] [facility] [address] [place], [address] HPI Nazario Aguilar is a 62 y.o. male patient of Jose Angel Reina here today for follow u p of COPD. At their last visit, we had treated him with prednisone and doxycycline. We repeated his ov ernight oximetry on room air, which showed that he desaturated, and we recommended he stay o n 3L at night. He had repeat spirometry done in [place] and it showed mild obstructive cadence g disease without a significant bronchodilator response. He reports that he has been feeling pretty good. He was worried about his test results. He believes that he had a walking oximetry at Dr. Reina's office, but his thinks not. He remains on the Spiriva and the Advair. He is also taking Daliresp. He notes that he has been having issues with the medication in the nebulizer not emptying c ompletely. He has been using the same kit for a long time, even though he has new kits becau se he prefers the mask. He is sleeping somewhat better on the ropinirole. He is waking up at night still. He wakes up up to 3 times a night, but averages about 2 times a night. He is having RLS symptoms very infrequently at this point. His does not hink he is moving around in his sleep, but no ellen she is not paying that much attention. Currently they are able to walk not very far. He is not exercising regularly. He notes that if he walks very far, his legs give out on him. He had a work up done by Dr. Reina (formerly [facility] lear what was done, the patient is vague on details and tends to then keep asking more quest ions instead of giving answers!), and a source was not found. He is interested in a walker. I asked him to have a comprehensive evaluation of his leg weakness first. This seems to be a long standing issue for him, but again, history taking is very hard. He does not cough much, and does not produce mucous. He has not had hemoptysis. He has been evaluated for nocturnal oxygen and does use it. They are currently on 3 LPM at night. He reports good compliance. Past Medical History Past Medical History Diagnosis Date COPD (chronic obstructive pulmonary disease) Diabetes mellitus HTN (hypertension) Seizure disorder Restless legs syndrome Seasonal allergies Dyslipidemia PLMD (periodic limb movement disorder) Past Surgical History Past Surgical History Procedure [...] Allergies: Allergies Allergen Reactions Levaquin Varenicline Tartrate Medications: Outpatient Encounter Prescriptions as of 11/21/2012 Medication Sig Dispense Refill Acetaminophen (TYLENOL EXTRA [...] Daily. atorvaSTATin (LIPITOR) 40 mg tablet Take 40 mg by mouth nightly. carBAMazepine (EPITOL) 200 mg tablet Take 200 mg by mouth 4 times daily. Cyanocobalamin (B-12) 1000 MCG CAPS Take 1,000 mg by mouth Daily. DALIRESP 500 MCG tablet TAKE ONE TABLET BY MOUTH EVERY DAY 30 tablet 5 fluticasone (FLONASE) 50 mcg/nasal spray 2 sprays in each nostril daily fluticasone-salmeterol (ADVAIR DISKUS) 500-50 mcg/puff diskus inhaler 1 puff inhaled tw ice daily metFORMIN (GLUCOPHAGE) 500 mg tablet Take 500 mg by mouth 2 times daily. rOPINIRole (REQUIP) 1 mg tablet Take 1 tablet by mouth nightly. 30 tablet 11 tiotropium (SPIRIVA) 18 mcg inhalation capsule Inhale 18 mcg into the lungs Daily. Review of Systems Constitutional: Denies fever, chills, sweats, and change in weight. Sleep: Sleep is better, still wakes up a couple of times a night. Eyes: Vision slowly declining. Resp: See HPI. CV: Denies palpitations, syncope, and peripheral edema. Occasional chest pains. Has not di scussed with Dr. Reina. Does not think he has had a stress test. Getting a history was h sophy, I felt like he was saying that sometimes the pains are on the right? : Nocturia 4 times a night. Objective BP 132/78 | Pulse 84 | Ht 1.753 m (5' 9") | Wt 104.327 kg (230 lb) | BMI 33.96 kg/m2 | SpO2 95%RA General Appearance: Alert, cooperative, no distress, appears stated age Head: Normocephalic, without obvious abnormality, atraumatic Eyes: PERRL, conjunctiva clear, no scleral icterus, EOM's intact Ears: Normal TM's, external auditory canals, normal acuity Nose: Nares normal, septum midline, mucosa normal Mouth: No oral lesions or exudate Neck: Supple, symmetrical, no adenopathy Lungs: No accessory muscle use, breath sounds are fairly markedly diminished bilaterally with prolongation of the expiratory phase, no wheezes, crackles or rhonchi Chest Wall: No deformity Heart: Regular rate and rhythm, somewhat diminished on auscultation, no murmur, rub or gal lop Abdomen: Soft, non-tender, non-distended, obese Extremities: No cyanosis, clubbing, or edema Pulses: Radial pulses 1-2+ and symmetric Skin: Warm and dry Lymph nodes: Cervical and supraclavicular nodes normal Data: Pulmonary function tests were performed on October 12, 2012 at [facility] and were r eviewed and interpreted in clinic today. They show spirometry consistent with mild obstruct brady lung disease without significant bronchodilator response. Overnight oximetry was done on May 12, 2012 on room air and was reviewed and interpret ed in clinic today. It shows he spent two hours 19 minutes with a saturation less than 88 % . Immunization History Administered Date(s) Administered INFLUENZA, >= 4YO W/PRESERVATIVE IM 01/18/2011 INFLUENZA, PRESERVATIVE FREE IM 01/19/2012 Pneumococcal (Adult) 01/18/2010 Tdap 01/19/2012 Assessment 1. COPD (chronic obstructive pulmonary disease) - Based on most recent PFTs, on maximal med ical therapy, he had mild obstructive disease. I encouraged him that his tests did not look that bad. On exam, he sounds diminished, and the spirometry likely underestimates his diseas e to a degree. 2. Nocturnal hypoxemia - He is stable on 3L. We rechecked his overnight oximetry on room ai r, and he did desaturate significantly. At next visit, I would recommend that we recheck on 3L. 3. Chest pain - He has had chest pain. It was difficult to get a clear history, because he was asking a lot of questions, and some seemed to pertain to a friend (such as, can right si ded chest pain be cardiac, because I had a friend with their heart on the right). I did tell him that he needed to tell his primary provider about his chest pain. I have no record of h is having had a stress test here and he is at increased risk of cardiac disease. 4. Leg weakness - Etiology is not apparent. He has seen Dr. Reina for this. He also may have seen another provider. He asked me for a prescription for a walker, which I did not fe el comfortable writing, as I am not sure what is going on. I asked that he have an evaluatio n for why he has leg pain, and if physical therapy would be of benefit. I have referred him to PMR for further evaluation. 5. Tobacco abuse- He continues to smoke despite multiple efforts to get him to quit. Right now, he is not interested in quitting, though he has cut back. He is aware of the risks. Plan 1.Continue Spiriva, ADvair and Daliresp. 2.Continue on oxygen at 3L at night, recheck overnight oximetry at next visit. 3.he needs to talk to Dr. Reina about his chest pain. 4.Referred to Dr. Craig in [facility] for evaluation of what sounds like long standing leg weaknes s of unclear etiology. 5.Encouraged to quit smoking. He was advised to call if new pulmonary symptoms were to develop. 30 minutes were spent with Mr. Aguilar with greater than 50% spent in counseling and coordi nation of care. Return to clinic in 3 months, or sooner with concerns. CC: Jose Angel Reina Portions of this report were transcribed using voice recognition software. Every effort wa s made to ensure accuracy; however, inadvertent computerized transmission and protection engineer errors may be pre sent. documented in t his encounter Plan of Treatment +--------+---------+ + + + | Date | Type | Specialty | Care Team | Description | +--------+---------+ + + + | 01/28/ | Office | Infectious Diseases | Samir Sana | | | 2019 | Visit | | Jazmin Stringer MD | | | | | | [address] | | | | | | [place] [address] | | | | | | [phone] | | | | | | | | +--------+---------+ + + + | 04/19/ | Office | Pulmonology | Alfonso Wallace MD | | | 2020 | Visit | | [address] | | | | | | [place] | | | | | | [address] | | | | | | | | +--------+---------+ + + + + + +--------+ + + | Name | Type | Priori | Associated Diagnoses | Order Schedule | | | | ty | | | + + +--------+ + + | Ambulatory referral | Outpatient | Routin | Leg weakness | Ordered: 11/21/2012 | | to Physical Medicine | Referral | e | | | | Rehab | | | | | + + +--------+ + + documented as of this encounter Visit Diagnoses + + | Diagnosis | + + | COPD (chronic obstructive pulmonary disease) (HCC) - Primary Chronic airway | | obstruction, not elsewhere classified | + + | Nocturnal hypoxemia Hypoxemia | + + | Chest pain Chest pain, unspecified | + + | Leg weakness Other musculoskeletal symptoms referable to limbs | + + | Tobacco abuse Tobacco use disorder | + + documented in this encounter
--- OUTSIDE RECORDS SUMMARY | ~2020-01-14 | XMS | Encounter Summary ---
Demographics + + + | Address | [address] | | | [place] [address] | + + + | Home Phone [...] #[place] | | | | | [address] | | + + + + + | Tanika Jean | ECON | Unknown | | + + + + + Care Team Providers + +------+ + | Care Cloth Weaver Name | Role | Phone | + +------+ + | No, Physician | PCP | Unavailable | + +------+ + Reason for Visit +---------+--------+ + | Reason | Onset | Comments | | | Date | | +---------+--------+ + | Results | 08/16/ | biopsy results and plan of care instructions | | | 2019 | | +---------+--------+ + Encounter Details +--------+ + + + + | Date | Type | Department | Care Team | Description | +--------+ + + + + | 08/16/ | Telephone | [facility] | Aidee Mitchell RN | Results (biopsy | | 2019 | | PULMONOLOGY [address] | | results and plan of | | | | [address] | | care instructions ) | | | | [place] | | | | | | [address] | | | | | | [phone] | | | +--------+ + + + [...] Telephone Encounter - Aidee Mitchell RN - 08/17/2019 1:53 PM PDTCalled and gave Virgie ([facility]) results of recent biopsy, per Dr. Wallace. Gave instructions that Dr. Wallace would be presc ribing antibiotic therapy for a two week coarse. Let Virgie know that Nazario would need a foll ow up ct in 3 months. Virgie stated understanding of all results/instructions and will relay this information to her brother Nazario. Virgie had no further questions or concerns.Pat lerma signed by Aidee Mitchell RN at 08/17/2019 1:58 PM PDTdocumented in this encounter Plan of [...] | | | | | [place] [address] | | | | | | [phone] | | | | | | | [...]
--- OUTSIDE RECORDS SUMMARY | ~2020-01-14 | XMS | Encounter Summary ---
Demographics + + + | Address | [address] | | | [place] [address] | + + + | Home Phone [...] Author | [facility] | | | and [place] | + + + | Organization | [facility] | [...] #[id number] | | | | | [address] | | + + + + + | Tanika Jean | ECON | Unknown | | + + + + + Care Team Providers + +------+ + | Care Mash Tub Cooker Operator Name | Role | Phone | + +------+ + | Nuzhat Orantes MD | PCP | | + +------+ + Reason for Visit + +--------+ + | Reason | Onset | Comments | | | Date | | + +--------+ + | Appointment | 09/21/ | Schedule | | | 2019 | | + +--------+ + Encounter Details +--------+ + + + + | Date | Type | Department | Care Team | Description | +--------+ + + + + | 09/21/ | Telephone | [facility] | Alfonso Wallace MD | Appointment | | 2019 | | PULMONOLOGY [address] | (Schedule) | | | | [address] | [place], [place] | | | | | [place], [place] | [id number] | | | | | [address] | | | | | | [phone] | | | +--------+ + + + [...] this encounter Miscellaneous Notes Telephone Encounter - Laurie Del Toro, Geriatric Case Manager - 09/22/2019 1:23 PM PDTAttempted to call patient. Plurchaseon message came on stating call cannot be completed.Electronically si gned by Laurie Del Toro, Geriatric Case Manager at 09/22/2019 1:24 PM PDTTelephone Encounter - Sindy Jensen - 09/22/2019 1:10 PM PDTJohn, is calling regarding Appointment (Schedule) and would like a call back. Additional Call Details: Please call home number to schedule follow up If this is a symptom based call, was patient offered triage? Not Applicable If this is a symptom based call and you were unable to immediately transfer the call to a jarred herrera store clerk cashier was caller made aware that if at [...] | | | | | [place] [address] | | | | | | [phone] | | | | | | | | +--------+---------+ + + + | 04/19/ | Office | Pulmonology | Alfonso Wallace MD | | | 2020 | Visit | | [address] | | | | | | [place] | | | | | | [id number] | | | | | | | | +--------+---------+ + + + documented as of this encounter Visit Diagnoses Not on filedocumented in this encounter"
--- OUTSIDE RECORDS SUMMARY | ~2020-01-14 | XMS | Encounter Summary ---
Demographics + + + | Address | [address] | | | [place] [address] | + + + | Home Phone [...] #[place] | | | | | [address] | | + + + + + | Tanika Jean | ECON | Unknown | | + + + + + Care Team Providers + +------+ + | Care Block Sealer Name | Role | Phone | + +------+ + | Jose Angel Reina MD | PCP | | + +------+ + Reason for Visit + +--------+ + | Reason | Onset | Comments | | | Date | | + +--------+ + | Medication Refill | 09/24/ | | | Assistance | 2015 | | + +--------+ + Encounter Details +--------+ + + + + | Date | Type | Department | Care Team | Description | +--------+ + + + + | 09/24/ | Telephone | [facility] [place] | Chrissy, | Medication Refill | | 2015 | | PULMONARY [address] | Ling Frazier MD | Assistance | | | | [place], | | | | | | [place] [address] | | | | | | [phone] | | | +--------+ + + + [...] this encounter Miscellaneous Notes Telephone Encounter - Leelee Mistry RN - 09/25/2015 10:03 AM PDTReceived fax from [facility] asking if Daliresp could be refilled with quantity #90 instead of #30 to save the patient money. I called Nazario and asked him if he wanted that and he said he would like a 90 day supply at a time. Called [facility] in [place] and asked Zoran, pharmacist, to refill with 90 day supply, effective from the date Dr Lowe ordered it on 09/16/15. He also did it for the [employer] Ell[employer]. 10: 13 AM PDTdocumented in this encounter Plan of [...] | | | | | [place] [address] | | | | | | [phone] | | | | | | | [...]
--- OUTSIDE RECORDS SUMMARY | ~2020-01-14 | XMS | Encounter Summary ---
Demographics + + + | Address | [address] | | | [place] [address] | + + + | Home Phone [...] #[place] | | | | | [address] | | + + + + + | Tanika Jean | ECON | Unknown | | + + + + + Care Team Providers + +------+ + | Care Loan Underwriter Name | Role | Phone | + +------+ + | Jose Angel Reina MD | PCP | | + +------+ + Reason for Visit +--------+--------+ + | Reason | Onset | Comments | | | Date | | +--------+--------+ + | Other | 05/23/ | | | | 2014 | | +--------+--------+ + Encounter Details +--------+ + + + + | Date | Type | Department | Care Team | Description | +--------+ + + + + | 05/23/ | Telephone | [facility] | Micah Del Cid | Other | | 2014 | | PHYSIATRY [address] | T[address] | | | | [address] | [place], [place] | | | | | [place], [place] | [address] | | | | | [address] | | | | | | [phone] | | | +--------+ + + + [...] this encounter Miscellaneous Notes Telephone Encounter - Gisella Alfaro Master of Anser Innovation - 05/23/2014 1:42 PM PSTFelicia it looks like this patient is a [facility] patient. elephone Encounter - Kathy Mojica - 05/23/2014 11:40 AM PSTPatient was told to call for an MRI order if he was not better after 1 week post inje ction. He would like this ordered now please. He is scheduled for a follow up in 1 month and is on the wait list. Thanks, Tessa documented in this e ncounter Plan of Treatment +--------+---------+ + + + | Date | Type | Specialty | Care Team | Description | +--------+---------+ + + + | 01/28/ | Office | Infectious Diseases | Sana Dawson | | | 2019 | Visit | | Jazmin Stringer MD | | | | | | [address] | | | | | | [place] [address] | | | | | | [phone] | | | | | | | | +--------+---------+ + + + | 04/19/ | Office | Pulmonology | Alfonso Wallace MD | | | 2020 | Visit | | [address] | | | | | | [place] | | | | | | [address] | | | | | | | | +--------+---------+ + + + documented as of this encounter Visit Diagnoses Not on filedocumented in this encounter"
--- OUTSIDE RECORDS SUMMARY | ~2020-01-14 | XMS | Encounter Summary ---
Demographics + + + | Address | [address] | | | [place] [address] | + + + | Home Phone [...] #[place] | | | | | [address] | | + + + + + | Tanika Jean | ECON | Unknown | | + + + + + Care Team Providers + +------+ + | Care Chro Name | Role | Phone | + [...] Frazier MD | | | | | [place], | | | | | | [place] [address] | | | | | | [phone] | | | +--------+--------+ + + + [...] MD | | | | | | [address] | | | | | | [place] [address] | | | | | | [phone] | | | | | | | | +--------+---------+ + + + | 04/19/ | Office | Pulmonology | Alfonso Wallace MD | | | 2020 | Visit | | [address] | | | | | | [place] | | | | | | [address] | | | | | | | | +--------+---------+ + + + documented as of this encounter Visit Diagnoses Not on filedocumented in this encounter"
--- OUTSIDE RECORDS SUMMARY | ~2020-01-14 | XMS | Encounter Summary ---
Demographics + + + | Address | [address] | | | [place] [address] | + + + | Home Phone | | + + + | Preferred Language | Unknown | + + + | Marital Status | | + + + | Islam Affiliation | 1061 | + + + | Race | White | + + + | Ethnic Group | Not or | + + + Author + + + | Author | [facility] | | | and [place] | + + + | Organization | [facility] | | | and [place] | + + + | Address | Unknown | + + + | Phone | Unavailable | + + + Support + + + + + | Name | Relationship | Address | Phone | + + + + + | Palak Aguilar | ECON | [address] | | | | | [address] | | + + + + + | Tanika Jean | ECON | Unknown | | + + + + + Care Team Providers + +------+ + | Care Pharmacist In Charge Name | Role | Phone | + +------+ + | No, Physician | PCP | Unavailable | + +------+ + Reason for Visit +---------+--------+ + | Reason | Onset | Comments | | | Date | | +---------+--------+ + | Results | 08/28/ | | | | 2019 | | +---------+--------+ + Encounter Details +--------+ + + + + | Date | Type | Department | Care Team | Description | +--------+ + + + + | 08/28/ | Telephone | [facility] | Aidee Mitchell RN | Results | | 2020 | | PULMONOLOGY [address] | | | | | [address] | | | | | | [place], [place] | | | | | | [address] | | | | | | [phone] | | | +--------+ + + + [...] Telephone Encounter - Aidee Mitchell RN - 09/01/2019 12:29 PM PDTCalled and let Lisha know that we could not give her test results this time. Although tootie had agreed for this office to be able to contact lisha with results and information. He called recently and let this office know he felt it would be a hippa violation to give lisha results. Sister stated und erstanding of this. eleph one Encounter - Dee Marsh - 09/01/2019 12:16 PM PDTShaylavioletheather, Sister, is call for Results and would like a call back. Additional Call Details: Stated Tootie had called her to call to get the results to get more information. Please call Lisha back at [phone] elephone Encounter - Aidee Mitchell RN - 08/31/2019 1:40 PM PDTContacted Tootie. 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 Tootie stated understanding of all results and had no further questions or concerns. 1: 50 PM PDTTelephone Encounter - Aidee Mitchell RN - 08/30/2019 4:02 PM PDTAttempted to call yesika hn. Non reachable phone numbers. Will attempt call again later. elephone Encounter - Aidee Mitchell RN - 08/30/2019 12: 48 PM PDTAttempted to call numbers listed. No voice mail, and non working number. Will attem pt call again later. elep isaiah Encounter - Aidee Mitchell RN - 08/30/2019 11:26 AM PDTAttempted to call listed numbers a gain. No voice mail and non working number. Will try call again later. elephone Encounter - Aidee Mitchell RN - 020 9:47 AM PDTAttempted to call both numbers listed. For Tootie to give test results and to let Tootie know to stay isolated. Cell phone is not set up for messages, home phone does not work. Will attempt call later elephone Encounter - Alfonso Wallace MD - 08/30/2019 9:38 AM PDTPlease let the patient k now to isolate himself for now till we find the type of organism elephone Encounter - Aidee Mitchell RN - 08/29/2019 1 1:32 AM PDT Collected: 08/15/19 0846 Resulting lab: [facility] Value: PositiveAbnormal Comment: Acid-fast bacilli have been detected in culture at 2 weeks; see AFB Organism ID by DNA probe Gave positive AFB results to Mary Waldron 08/29/19 Testing performed at [facility] [address], [facility] [address] Lab called with positive AFB results. Will forward to Dr. Howardlectronically signed by Edgar Mitchell RN at 08/29/2019 11:34 AM PDTdocumented in this encounter Plan of Treatment +--------+---------+ + + + | Date | Type | Specialty | Care Team | Description | +--------+---------+ + + + | 01/28/ | Office | Infectious Diseases | Sana Dawson | | | 2019 | Visit | | aJzmin Stringer MD | | | | | | [address] | | | | | | [place] [address] | | | | | | [phone] | | | | | | | | +--------+---------+ + + + | 04/19/ | Office | Pulmonology | Alfonso Wallace MD | | | 2020 | Visit | | [address] | | | | | | [place] | | | | | | [address] | | | | | | | | +--------+---------+ + + + documented as of this encounter Visit Diagnoses Not on filedocumented in this encounter"
--- OUTSIDE RECORDS SUMMARY | ~2020-01-14 | XMS | Encounter Summary ---
Demographics + + + | Address | [address] | | | [place] [address] | + + + | Home Phone [...] | Author | [facility] | | | and [place] | + + + | Organization | [facility] | | | and [place] | + + + | Address | Unknown | + + + | Phone | Unavailable | + + + Support + + + + + | Name | Relationship | Address | Phone | + + + + + | Palak Aguilar | ECON | #[place] | | | | | [address] | | + + + + + | Tanika Jean | ECON | Unknown | | + + + + + Care Team Providers + +------+ + | Care Carton Packaging Machine Operator Name | Role | Phone [...] MD | obstructive | | | | [place], | | pulmonary disease) | | | | [place] [address] | | (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); Allergic | | | | | | [...] an overnight oxy gen test through [facility]. Call the [facility] before you pick it up to make sure they have a box available. You will steel pickler a box at the [facility]. Do the t est on 3L. Wear [...] Dr. Cyril tomlinson on October 10 at [facility]. He has not had any acute illnesses. He did have difficulties getting his medications refilled, as they were being refilled [facility] with no refills. He is currently on [...] pace on level ground. He walks at [employer] and walks around his yard. He is not exercising regularly. He does tend to lean on the shopping cart when he walks at [employer] and in fact someone commented on this. He does cough chronically, occasionally at night. He rarely brings up phlegm. He has been evaluated for nocturnal oxygen and does use it. He is currently on 3 LPM at [facility]. He reports good compliance. He has [...] tablet Take 81 mg by mouth Daily. hpieant-fnrrwjvmqpsfd-csgoxcnv (HEADACHE RELIEF) 250-250-65 MG per tablet Take [...] to ensure accuracy; however, inadvertent computerized business performance analyst errors may be pre sent. documented in [...] | | | | | | [place] [address] | | | | | | [phone] | | | | | | | | +--------+---------+ + + + | 04/19/ | Office | Pulmonology | Alfonso Wallace MD | | | 2020 | Visit | | [address] | | | | | | [place] | | | | | | [phone] | | | | | | | [...]
--- OUTSIDE RECORDS SUMMARY | ~2020-01-14 | XMS | Encounter Summary ---
Demographics + + + | Address | [address] | | | [place] [address] | + + + | Home Phone [...] [place] | | | | | [address] | | + + + + + | Tanika Jean | ECON | Unknown | | + + + + + Care Team Providers + +------+ + | Care Computer Applications Developer Name | Role | Phone | [...] 2015 | | PULMONARY [address] | Lnig Frazier MD | | | | | [place], | | | | | | [place] [address] | | | | | | [phone] | | | +--------+--------+ + + + [...] | | | | | [place] [address] | | | | | | [phone] | | | | | | | | +--------+---------+ + + + | 04/19/ | Office | Pulmonology | Alfonso Wallace MD | | | 2020 | Visit | | [address] | | | | | | [place] | | | | | | [address] | | | | | | | [...]
--- OUTSIDE RECORDS SUMMARY | ~2020-01-14 | XMS | Encounter Summary ---
Demographics + + + | Address | [address] | | | [place] [address] | + + + | Home Phone [...] [place] | | | | | [address] | | + + + + + | Tanika Jean | ECON | Unknown | | + + + + + Care Team Providers + +------+ + | Care Head Of Geography Name | Role | Phone | + [...] Frazier MD | | | | | [place], | | | | | | [place] [address] | | | | | | [phone] | | | +--------+--------+ + + + [...] | | | | | [place] [address] | | | | | | [phone] | | | | | | | | +--------+---------+ + + + | 04/19/ | Office | Pulmonology | Alfonso Wallace MD | | | 2020 | Visit | | [address] | | | | | | [place] | | | | | | [phone] | | | | | | | [...]
--- OUTSIDE RECORDS SUMMARY | ~2020-01-14 | XMS | Encounter Summary ---
Demographics + + + | Address | [address] | | | [place] [address] | + + + | Home Phone [...] #[place] | | | | | [address] | | + + + + + | Tanika Jean | ECON | Unknown | | + + + + + Care Team Providers + +------+ + | Care Master Motorcycle Technician Name | Role | Phone | + +------+ + | Jose Angel Reina MD | PCP | | + +------+ + Reason for Visit +---------+--------+ + | Reason | Onset | Comments | | | Date | | +---------+--------+ + | Results | 06/18/ | Walkiing oximetry | | | 2015 | | +---------+--------+ + Encounter Details +--------+ + + + + | Date | Type | Department | Care Team | Description | +--------+ + + + + | 06/18/ | Telephone | [facility] | Chrissy, | Results (Walkiing | | 2015 | | PULMONARY [address] | Ling Frazier MD | oximetry ) | | | | [place], | | | | | | [place] [address] | | | | | | [phone] | | | +--------+ + + + [...] this encounter Miscellaneous Notes Telephone Encounter - Galina Veliz RN - 06/19/2015 9:20 AM PDTCalled Nazario aguero oximetry study. Advised per Dr. Lowe to discontinue portable oxygen. Okay per jarred michael. Orders sent to [facility]. Electronically signed by Galina Veliz RN at 06/03 9:34 AM PDTdocumented in this encounter Plan of [...] [address] | | | | | | [place] [address] | | | | | | [phone] | | | | | | | | +--------+---------+ + + + | 04/19/ | Office | Pulmonology | Alfonso Wallace MD | | | 2020 | Visit | | [address] | | | | | | [place] | | | | | | [address] | | | | | | | [...]
--- OUTSIDE RECORDS SUMMARY | ~2020-01-14 | XMS | Encounter Summary ---
Demographics + + + | Address | [address] | | | [place] [address] | + + + | Home Phone [...] #[place] | | | | | [address] | | + + + + + | Tanika Jean | ECON | Unknown | | + + + + + Care Team Providers + +------+ + | Care Hardware Assembler Name | Role | Phone | [...] + + | 05/23/ | Telephone | [facility] | Karlos Craig, | Other | | 2014 | | PHYSIATRY [address] | MD [address] | | | | | [address] | [place] | | | | | [place] | [address] | | | | | [address] | | | | | | [phone] | | | +--------+ + + + [...] this encounter Miscellaneous Notes Telephone Encounter - Kathy Mojica - 05/23/2014 11:39 AM PSTPatient called asking for an MRI to be oredered. He was told after 1 week post injection if he wasn't better to come in and also have an MRI. He is scheduled for follow up at first available in 1 month and is on the wait list. Thanks,Kathy documented in this encounter Plan of Treatment [...] | | | | | [place] [address] | | | | | | [phone] | | | | | | | | +--------+---------+ + + + | 04/19/ | Office | Pulmonology | Alfonso Wallace MD | | | 2020 | Visit | | [address] | | | | | | [place] | | | | | | [phone] | | | | | | | | +--------+---------+ + + + documented as of this encounter Visit Diagnoses Not on filedocumented in this encounter"
--- OUTSIDE RECORDS SUMMARY | ~2020-01-14 | XMS | Encounter Summary ---
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 We [...] So, don't give u p! Go Cold [place]: Most ex-smokers quit cold turkey. Trying to [...] your behavior and peer support. Call the [facility] Quitline for more information. 859-KTNU-JMM (298-918-3711). Low-cost or free programs are offered by many hospitals, local chapters of the [place] [employer] (862-605-0604) a nd the [place] (123-587-8904). Support at home is important too. Non-smokers can help by offering praise and encouragement. If the smoker fails to quit, encourage them to try again! Dygy-Gnz-Zltflqb Medicines: For those who can't quit on [...] such as bupropion (Zyban, Wellbutrin), varenicline (Chantix, Marmaduke ix), a niocotine inhaler or nasal spray. [...] smoking, visit the following links: National Cancer [place] , Clearing the Air, Quit Smoking Today - an online mejias klet. http://www.smokefree.gov/pubs/clearing_the_air.pdf Smokefree.gov http://smokefree.gov/ QuitNet http://www.quitnet.com/ 3458-9236 Rudy Min, [address] [place] [address], [place] [address]. All rights reserve d. This information is [...] regularly. He just finished physical therapy at [facility]. He was given e xercises [...] He is currently on 3 LPM at [facility]. He reports good compliance. [...] Breath. Dx: 496 RINA: 99 months [employer] Kinza 360 vial 4 aspirin 325 mg [...] made to ensure accuracy; however, inadvertent computerized mattress maker errors may be pre sent. Electronically signed by: Ling Lowe MD 12/28/2013 13:16 documented in t his encounter Miscellaneous Notes Miscellaneous - ONBASE SCAN [place] - 12/28/2013 12:00 AM PDT documented in this encounter Plan of Treatment [...] | | | | | [place] [address] | | | | | | [phone] | | | | | | | | +--------+---------+ + + + | 04/19/ | Office | Pulmonology | Alfonso Wallace MD | | | 2020 | Visit | | [address] | | | | | | [place] | | | | | | [phone] | | | | | | | [...]
--- OUTSIDE RECORDS SUMMARY | ~2020-01-14 | XMS | Encounter Summary ---
Demographics + + + | Address | [address] | | | [place] [address] | + + + | Home Phone [...] [place] | | | | | [address] | | + + + + + | Tanika Jean | ECON | Unknown | | + + + + + Care Team Providers + +------+ + | Care Advertising Sales Executive Name | Role | Phone | + [...] Frazier MD | | | | | [place], | | | | | | [place] [address] | | | | | | [phone] | | | +--------+--------+ + + + [...] | | | | | [place] [address] | | | | | | [phone] | | | | | | | | +--------+---------+ + + + | 04/19/ | Office | Pulmonology | Alfonso Wallace MD | | | 2020 | Visit | | [address] | | | | | | [place] | | | | | | [phone] | | | | | | | [...]
--- OUTSIDE RECORDS SUMMARY | ~2020-01-14 | XMS | Encounter Summary ---
Demographics + + + | Address | [address] | | | [place] [address] | + + + | Home Phone [...] + + + | Author | [facility] | | | and [place] | + + + | Organization | [facility] | | | and [place] | + + + | Address | Unknown | + + + | Phone | Unavailable | + + + Support + + + + + | Name | Relationship | Address | Phone | + + + + + | Palak Aguilar | ECON | [address] | | | | | [address] | | + + + + + | Tanika Jean | ECON | Unknown | | + + + + + Care Team Providers + +------+ + | Care Compliance Attorney Name | Role | Phone | + +------+ + | Jose Angel Reina MD | PCP | | + +------+ + Reason for Visit +--------+--------+ + | Reason | Onset | Comments | | | Date | | +--------+--------+ + | Other | 05/27/ | | | | 2012 | | +--------+--------+ + Encounter Details +--------+ [...] | | | | | | [place] [address] | | | | | | [phone] | | | +--------+ + + + [...] Telephone Encounter - Claudia Michelle RN - 05/27/2012 5:23 PM PSTCalled Nazario and kulwante grady that [facility] denied the Nicotrol inhalers and asked him to enroll in the Free and Vanessa r/Quit for Life program. . Okay per patient. documented in this encounter Plan of Treatment +--------+---------+ + + + | Date | Type | Specialty | Care Team | Description | +--------+---------+ + + + | 01/28/ | Office | Infectious Diseases | Sana Dawson | | | 2019 | Visit | | Jazmin Stringer MD | | | | | | [address] [facility] | | | | | | [place] [address] | | | | | | [phone] | | | | | | | | +--------+---------+ + + + | 04/19/ | Office | Pulmonology | Alfonso Wallace MD | | | 2020 | Visit | | [address] | | | | | | [place] | | | | | | [address] | | | | | | | | +--------+---------+ + + + documented as of this encounter Visit Diagnoses Not on filedocumented in this encounter"
--- OUTSIDE RECORDS SUMMARY | ~2020-01-14 | XMS | Encounter Summary ---
Demographics + + + | Address | [address] | | | [place] [address] | + + + | Home Phone [...] #[place] | | | | | [address] | | + + + + + | Tanika Jean | ECON | Unknown | | + + + + + Care Team Providers + +------+ + | Care Secure Software Assessor Name | Role | Phone | [...] | | | [facility] | [place] [address] | | | | | [place] [address] | | | | | | [phone] | | | +--------+ + + + [...] | | | | | [place] [address] | | | | | | [phone] | | | | | | | | +--------+---------+ + + + | 04/19/ | Office | Pulmonology | Alfonso Wallace MD | | | 2020 | Visit | | [address] | | | | | | [place] | | | | | | [phone] | | | | | | | [...] for comparison only - no result from [place]. | [facility] | + + + + +---------+ + + | Performing | Address | City/State/Zipcode | Phone Number | | Organization | | | | + +---------+ + + | [facility] | | | | + +---------+ + + documented in this encounter Visit Diagnoses Not on filedocumented in this encounter"
--- OUTSIDE RECORDS SUMMARY | ~2020-01-14 | XMS | Encounter Summary ---
Demographics + + + | Address | [address] | | | [place] [address] | + + + | Home Phone [...] [place] | | | | | [address] | | + + + + + | Tanika Jean | ECON | Unknown | | + + + + + Care Team Providers + +------+ + | Care Quality Inspector Name | Role | Phone | + +------+ + | No, Physician | PCP | Unavailable | + +------+ + Encounter Details +--------+ + + + + | Date | Type | Department | Care Team | Description | +--------+ + + + + | 08/13/ | Preadmit | [facility] | Alfonso Wallace MD | No Show | | 2020 | Visit | CENTER PREAD[facility] | [address] | | | | | CLINIC [address] | [place], [place] | | | | | [place]VD [place], [place] | [address] | | | | | [address] | | | | | | [phone] | | | +--------+ + + + [...] documented as of this encounter Miscellaneous Notes Preadmit Clinic Note - Viviane Waters RN - 08/14/2019 2:30 PM PDT Pt given Pre- op fasti ng guidelines, medication instructions and shower instructions. The patient states amando george. The patient was not scheduled for the procedure. encouraged the family to call Dr. Duran at office. documented in this encounter Plan of Treatment +--------+---------+ + + + | Date | Type | Specialty | Care Team | Description | +--------+---------+ + + + | 01/28/ | Office | Infectious Diseases | Sana Dawson | | | 2019 | Visit | | Jazmin Stringer MD | | | | | | [address] [facility] | | | | | | [place] [address] | | | | | | [phone] | | | | | | | | +--------+---------+ + + + | 04/19/ | Office | Pulmonology | Alfonso Wallace MD | | | 2020 | Visit | | [address] | | | | | | [place] | | | | | | [phone] | | | | | | | | +--------+---------+ + + + documented as of this encounter Visit Diagnoses Not on filedocumented in this encounter"
--- OUTSIDE RECORDS SUMMARY | ~2020-01-14 | XMS | Encounter Summary ---
Demographics + + + | Address | [address] | | | [place] [address] | + + + | Home Phone [...] #[place] | | | | | [address] | | + + + + + | Tanika Jean | ECON | Unknown | | + + + + + Care Team Providers + +------+ + | Care Cost Control Supervisor Name | Role | Phone [...] | | | | | tendonitis, | [address] | | | | | | right Right | [place], | | | | | | shoulder | [place] [address] | | | | | | pain | Phone: | | | | | | | [phone] | | | | | | | Fax: | | | | | | | [phone] | | +--------+ + + + + [...] | shoulder | [address] | | | | n | pain | [address] | [place], | | | | | Rotator cuff | [place], | [place] [address] | | | | | tendonitis, | [place] [address] | Phone: | | | | | right | Phone: | [phone] | | | | | | [phone] | Fax: | | | | | | Fax: | [phone] | | | | | | [phone] | | +--------+ + + + + + Encounter Details +--------+ + + + + | Date | Type | Department | Care Team | Description | +--------+ + + + + | 11/09/ | Procedure | [facility] [place] | Karlos Craig, | Rotator cuff | | 2013 | visit | PHYSIATRY [address] | MD [address] | tendonitis, right | | | | [address] | [place] | (Primary Dx); Right | | | | [place] | [address] | shoulder pain | | | | [address] | | | | | | [phone] | | | +--------+ + + + [...] physical therapy within one week, please contact [facility]. Once you have completed physical [...] ht shoulder. documented i n this encounter Miscellaneous Notes Miscellaneous - SUZAN FLORES - 11/09/2013 12:00 AM PDT documented in this encounter [...] | | | | | [place] [address] | | | | | | [phone] | | | | | | | [...] | | | ) | | ONCE, [facility] 11/09/13 at 1600, For 1 | | | | | | | dose, Not for IV use., | | | | | | + + + +-------+------+ + +---+---+ | | | +---+---+ documented in this encounter
--- OUTSIDE RECORDS SUMMARY | ~2020-01-14 | XMS | Encounter Summary ---
Demographics + + + | Address | [address] | | | [place] [address] | + + + | Home Phone [...] #[place] | | | | | [address] | | + + + + + | Tanika Jean | ECON | Unknown | | + + + + + Care Team Providers + +------+ + | Care Automotive Service Technician Name | Role | Phone | + +------+ + | Jose Angel Reina MD | PCP | | + +------+ + Reason for Visit +--------+--------+ + | Reason | Onset | Comments | | | Date | | +--------+--------+ + | Other | 01/30/ | follow-up on labs | | | 2012 | | +--------+--------+ [...] RN | labs) | | | | [facility] [address] | | | | | | [place] | | | | | | [address] | | | | | | [phone] | | | +--------+ + + + [...] this encounter Miscellaneous Notes Telephone Encounter - Honey Mcgarry RN - 01/30/2013 4:03 PM PDTNotified patient th at his blood and urine test results are all fine per Dr. Williamson. documented in this encounter Plan of Treatment [...] | | | | | [place] [address] | | | | | | [phone] | | | | | | | | +--------+---------+ + + + | 04/19/ | Office | Pulmonology | Alfonso Wallace MD | | | 2020 | Visit | | [address] | | | | | | [place] | | | | | | [address] | | | | | | | | +--------+---------+ + + + documented as of this encounter Visit Diagnoses Not on filedocumented in this encounter"
--- OUTSIDE RECORDS SUMMARY | ~2020-01-14 | XMS | Encounter Summary ---
Demographics + + + | Address | [address] | | | [place] [address] | + + + | Home Phone [...] | Author | [facility] | | | and [place] | + + + | Organization | [facility] | | | and [place] | + + + | Address | Unknown | + + + | Phone | Unavailable | + + + Support + + + + + | Name | Relationship | Address | Phone | + + + + + | Palak Aguilar | ECON | #[place] | | | | | [address] | | + + + + + | Tanika Jean | ECON | Unknown | | + + + + + Care Team Providers + +------+ + | Care Computer Artist Name | Role | Phone | + +------+ + | Jose Angel Reina MD | PCP | | + +------+ + Reason for Visit + +--------+ + | Reason | Onset | Comments | | | Date | | + +--------+ + | Medication Refill | 08/22/ | | | | 2013 | | + +--------+ + Encounter Details +--------+--------+ + + + | Date | Type | Department | Care Team | Description | +--------+--------+ + + + | 08/22/ | Refill | [facility] [place] | Chrissy, | Medication Refill | | 2013 | | PULMONARY [address] | Ling Frazier MD | | | | | [place], | | | | | | [place] [address] | | | | | | [phone] | | | +--------+--------+ + + + [...] [place] | | | | | | [place] [address] | | | | | | [phone] | | | | | | | | +--------+---------+ + + + | 04/19/ | Office | Pulmonology | Alfonso Wallace MD | | | 2020 | Visit | | [address] | | | | | | [place] | | | | | | [address] | | | | | | | | +--------+---------+ + + + documented as of this encounter Visit Diagnoses + + | Diagnosis | + + | COPD (chronic obstructive pulmonary disease) (HCC) - Primary Chronic airway | | obstruction, not elsewhere classified | + + documented in this encounter"
--- OUTSIDE RECORDS SUMMARY | ~2020-01-14 | XMS | Encounter Summary ---
Demographics + + + | Address | [address] | | | [place] [address] | + + + | Home Phone [...] #[place] | | | | | [address] | | + + + + + | Tanika Jean | ECON | Unknown | | + + + + + Care Team Providers + +------+ + | Care Autocad Operator Name | Role | Phone | [...] | | | | | [facility] | [place] [address] | | | | | [place] [address] | | | | | | [phone] | | | +--------+ + + + [...] | | | | | [place] [address] | | | | | | [phone] | | | | | | | | +--------+---------+ + + + | 04/19/ | Office | Pulmonology | Alfonso Wallace MD | | | 2020 | Visit | | [address] | | | | | | [place] | | | | | | [phone] | | | | | | | [...] for comparison only - no result from [facility]. | [facility] | + + + + +---------+ + + | Performing | Address | City/State/Zipcode | Phone Number | | Organization | | | | + +---------+ + + | [facility] | | | | + +---------+ + + documented in this encounter Visit Diagnoses Not on filedocumented in this encounter"
--- OUTSIDE RECORDS SUMMARY | ~2020-01-14 | XMS | Encounter Summary ---
Demographics + + + | Address | [address] | | | [place] [address] | + + + | Home Phone [...] #[place] | | | | | [address] | | + + + + + | Tanika Jean | ECON | Unknown | | + + + + + Care Team Providers + +------+ + | Care Child And Family Services Specialist Name | Role | Phone | + +------+ + | Jose Angel Reina MD | PCP | | + +------+ + Reason for Visit + +--------+ + | Reason | Onset | Comments | | | Date | | + +--------+ + | Medication Refill | 07/06/ | | | | 2013 | | + +--------+ + Encounter Details +--------+--------+ + + + | Date | Type | Department | Care Team | Description | +--------+--------+ + + + | 07/06/ | Refill | [facility] [place] [facility] | Karlos Craig, | Medication Refill | | 2013 | | MEDICINE | MD [address] | | | | | [address] | [place] | | | | | [address] | [address] | | | | | [place] | | | | | | [address] | | | | | | [phone] | | | +--------+--------+ + + + [...] | | | | | [place] [address] | | | | | | [phone] | | | | | | | [...]
--- OUTSIDE RECORDS SUMMARY | ~2020-01-14 | XMS | Encounter Summary ---
Demographics + + + | Address | [address] | | | [place] [address] | + + + | Home Phone [...] #[place] | | | | | [address] | | + + + + + | Tanika Jean | ECON | Unknown | | + + + + + Care Team Providers + +------+ + | Care Residency Coordinator Name | Role | Phone | + +------+ + | Jose Angel Reina MD | PCP | | + +------+ + Encounter Details +--------+ + + + + | Date | Type | Department | Care Team | Description | +--------+ + + + + | 06/18/ | Orders Only | [facility] [place] | Galina Veliz, | Hypoxemia | | 2016 | | PULMONARY [address] | RN | | | | | [place], | | | | | | [place] [address] | | | | | | [phone] | | | +--------+ + + + [...] | | | | | [place] [address] | | | | | | [phone] | | | | | | | | +--------+---------+ + + + | 04/19/ | Office | Pulmonology | Alfonso Wallace MD | | | 2020 | Visit | | [address] | | | | | | [place] | | | | | | [phone] | | | | | | | | +--------+---------+ + + + documented as of this encounter Visit Diagnoses + + | Diagnosis | + + | Hypoxemia | + + documented in this encounter
--- OUTSIDE RECORDS SUMMARY | ~2020-01-14 | XMS | Encounter Summary ---
Demographics + + + | Address | [address] | | | [place] [address] | + + + | Home Phone [...] #[place] | | | | | [address] | | + + + + + | aTnika Jean | ECON | Unknown | | + + + + + Care Team Providers + +------+ + | Care Silk Opener Name | Role | Phone | + [...] Frazier MD | | | | | [place], | | | | | | [place] [address] | | | | | | [phone] | | | +--------+--------+ + + + [...] this encounter Miscellaneous Notes Telephone Encounter - Mariangel Ashley RN - 02/28/2014 8:41 AM PSTRopinirole 1 mg tab Last refill:05/15/13, #30, 10 refills Last office visit:12/28/13 Next office visit:Not scheduled at this time. documented in this en counter Plan of [...] [place] | | | | | | [place] [address] | | | | | | [phone] | | | | | | | | +--------+---------+ + + + | 04/19/ | Office | Pulmonology | Alfonso Wallace MD | | | 2020 | Visit | | [address] | | | | | | [place] | | | | | | [address] | | | | | | | | +--------+---------+ + + + documented as of this encounter Visit Diagnoses Not on filedocumented in this encounter"
--- OUTSIDE RECORDS SUMMARY | ~2020-01-14 | XMS | Encounter Summary ---
Demographics + + + | Address | [address] | | | [place] [address] | + + + | Home Phone [...] #[place] | | | | | [address] | | + + + + + | Tanika Jean | ECON | Unknown | | + + + + + Care Team Providers + +------+ + | Care Woven Label Designer Name | Role | Phone | [...] + + | 06/15/ | Office | [facility] | Offenstein, | COPD (chronic | | 2013 | Visit | PULMONARY [address] | Ling Frazier MD | obstructive | | | | [place], | | pulmonary disease) | | | | [place] [address] | | (HCC) (Primary Dx); | | | | [phone] | | Periodic limb | | | [...] Ling Lowe MD - 06/15/2013 2:58 PM [id number] is a free service to help you [...] is available in both En glish and Welsh with translation and TTY services. It is [...] Up HPI Nazario Gipsonock . is a 62 y.o. male patient of Jose Angel Reina here today f or follow up of COPD. At their last visit, we had continued him on Spiriva, Advair and Daliresp. Since their last visit he feels like he has been doing pretty good. He has not had any acute illnesses. He notes that his insurance is no longer christy with [facility], and so everything has to be returned and ordered elsewhere. He can go though [facility] or [facility]. He is currently on a [...] [facility]. He reports good compliance. He is still [...] RINA: 99 months [employer] Kinza 360 vial 11 aspirin 325 mg tablet [...] palpitations, syncope, and peripheral edema. Seen at [facility] one night for chest pain 2-3 weeks [...] again. I reordered the albuterol nebulizers through [employer], as he is switching home health companies. [...] Duonebs, start albuterol nebulizers. Order sent to [facility]. 2.Continue Advair, Spiriva and Daliresp. 3.Continue ropinirole. [...] made to ensure accuracy; however, inadvertent computerized tool repairer bench errors may be pre sent. Electronically signed [...] | | | | | [address] | | | | | | [place] [address] | | | | | | [phone] | | | | | | | | +--------+---------+ + + + | 04/19/ | Office | Pulmonology | Alfonso Wallace MD | | | 2020 | Visit | | [address] | | | | | | [place] | | | | | | [address] | | | | | | | [...] | 06/15/2014 | | | | | ([facility]) Nocturnal | | | | | | [...]
--- OUTSIDE RECORDS SUMMARY | ~2020-01-14 | XMS | Encounter Summary ---
Demographics + + + | Address | [address] | | | [place] [address] | + + + | Home Phone [...] #[place] | | | | | [address] | | + + + + + | Tanika Jean | ECON | Unknown | | + + + + + Care Team Providers + +------+ + | Care Client Integration Manager Name | Role | Phone | [...] | | | | | [facility] | [place] [address] | | | | | [place] [address] | | | | | | [phone] | | | +--------+ + + + [...] | | | | | [place] [address] | | | | | | [phone] | | | | | | | | +--------+---------+ + + + | 04/19/ | Office | Pulmonology | Alfonso Wallace MD | | | 2020 | Visit | | [address] | | | | | | [place] | | | | | | [phone] | | | | | | | [...] for comparison only - no result from [facility]. | [facility] | + + + + +---------+ + + | Performing | Address | City/State/Zipcode | Phone Number | | Organization | | | | + +---------+ + + | [facility] | | | | + +---------+ + + documented in this encounter Visit Diagnoses Not on filedocumented in this encounter"
--- OUTSIDE RECORDS SUMMARY | ~2020-01-14 | XMS | Encounter Summary ---
Demographics + + + | Address | [address] | | | [place] [address] | + + + | Home Phone [...] #[place] | | | | | [address] | | + + + + + | Tanika Jean | ECON | Unknown | | + + + + + Care Team Providers + +------+ + | Care Computer Processing Scheduler Name | Role | Phone | + +------+ + | Jose Angel Reina MD | PCP | | + +------+ + Encounter Details +--------+ + + + + | Date | Type | Department | Care Team | Description | +--------+ + + + + | 04/20/ | Hospital | [facility] | Karlos Craig, | Right shoulder pain; | | 2014 | Encounter | MED CTR XRAY [address] | MD [address] | Rotator cuff | | | | [place] | [place] | tendonitis, right; | | | | [place] [address] | [address] | Rotator cuff tear | | | | [phone] | | arthropathy of right | | [...] 99 | | | | | | ([facility]) | months | | | | | [...] | | | | | [place] [address] | | | | | | [phone] | | | | | | | [...] + | MISCELLANEOUS LAB | | | [phone] | + +---------+ + + | MISCELANIOUS LAB | | | [phone] | + +---------+ + + documented in [...]
--- OUTSIDE RECORDS SUMMARY | ~2020-01-14 | XMS | Encounter Summary ---
Demographics + + + | Address | [address] | | | [place] [address] | + + + | Home Phone [...] #[place] | | | | | [address] | | + + + + + | Tanika Jean | ECON | Unknown | | + + + + + Care Team Providers + +------+ + | Care Bath Tester Name | Role | Phone | + +------+ + | Jose Angel Reina MD | PCP | | + +------+ + Reason for Visit +---------+--------+ + | Reason | Onset | Comments | | | Date | | +---------+--------+ + | Results | 04/24/ | | | | 2014 | | +---------+--------+ + Encounter Details +--------+ + + + + | Date | Type | Department | Care Team | Description | +--------+ + + + + | 04/24/ | Telephone | [facility] | Karlos Craig, | Results | | 2014 | | PHYSIATRY [address] | MD [address] | | | | | [address] | [place] | | | | | [place] | [address] | | | | | [address] | | | | | | [phone] | | | +--------+ + + + [...] this encounter Miscellaneous Notes Telephone Encounter - Kedar Kern RN - 04/24/2014 8:58 AM PSTPatient called and give n results. elephone Encounter - Kedar Kern RN - 04/24/2014 8:57 AM PSTMessage copied by KEDAR KERN on WedApr 24, 2014 0857 ------ Message from: KARLOS CRAIG Created: WedApr 23, 2014 0875 Kedar, Please let Nazario Doan Aguilar Sr. know that I have reviewed his right shoulder MRI. The MRI demonstrates rotator cuff tears. I will review the results with him in detail at his next appointment. Thank you, Karlos Craig MD () ----- Message ----- From: Rad Results In [place] Sent: 04/20/2014 13:44 To: Karlos Craig MD documented in t his encounter Plan of [...] | | | | | [place] [address] | | | | | | [phone] | | | | | | | | +--------+---------+ + + + | 04/19/ | Office | Pulmonology | Alfonso Wallace MD | | | 2020 | Visit | | [address] | | | | | | [place] | | | | | | [phone] | | | | | | | | +--------+---------+ + + + documented as of this encounter Visit Diagnoses Not on filedocumented in this encounter"
--- OUTSIDE RECORDS SUMMARY | ~2020-01-14 | XMS | Encounter Summary ---
Demographics + + + | Address | [address] | | | [place] [address] | + + + | Home Phone | | + + + | Preferred Language | Unknown | + + + | Marital Status | | + + + | Protestant Affiliation | 1061 | + + + [...] #[place] | | | | | [address] | | + + + + + | Tanika Jean | ECON | Unknown | | + + + + + Care Team Providers + +------+ + | Care Vice President Of Talent Acquisition Name | Role | Phone | + [...] | due to | [place] | [place] | | | | | methicillin | [place], [place] | [address] | | | | | susceptible | [address] | Phone: | | | | | Staphylococc | Phone: | [phone] | | | | | us aureus | [phone] | Fax: | | | | | (MSSA) ([facility]) | Fax: | [phone] | | | | | Procedures | [phone] | | | | | | CT [...] + | 08/16/ | Orders Only | [facility] | Alfonso Wallace MD | Pneumonia of right | | 2020 | | PULMONOLOGY [address] | upper lobe due to | | | | [address] | [place], [place] | methicillin | | | | [place], [place] | [address] | susceptible | | | | [address] | | Staphylococcus | | | | [phone] | | aureus (MSSA) ([facility]) | | | | | | (Primary [...] | | | | | [place] [address] | | | | | | [phone] | | | | | | | | +--------+---------+ + + + | 04/19/ | Office | Pulmonology | Alfonso Wallace MD | | | 2020 | Visit | | [address] | | | | | | [place] | | | | | | [phone] | | | | | | | | +--------+---------+ + + + documented as of this encounter Results CT Chest wo Contrast [...] Procedure Note | + + | [place], [id number] - 11/30/2019 8:28 AM PDT | | [...] methicillin susceptible Staphylococcus aureus | | (MSSA) ([facility]) - Primary | + + documented in this encounter"
--- OUTSIDE RECORDS SUMMARY | ~2020-01-14 | XMS | Encounter Summary ---
Demographics + + + | Address | [address] | | | [place] [address] | + + + | Home Phone [...] #[place] | | | | | [address] | | + + + + + | Tanika Jean | ECON | Unknown | | + + + + + Care Team Providers + +------+ + | Care Nursing Unit Coordinator Name | Role | Phone | + +------+ + | Jose Angel Reina MD | PCP | | + +------+ + Reason for Visit +---------+--------+ + | Reason | Onset | Comments | | | Date | | +---------+--------+ + | Results | 10/04/ | nocturnal oximetry | | | 2014 | | +---------+--------+ + Encounter Details +--------+ + + + + | Date | Type | Department | Care Team | Description | +--------+ + + + + | 10/04/ | Telephone | [facility] | Chrissy, | Results (nocturnal | | 2014 | | PULMONARY [address] | Ling Frazier MD | oximetry) | | | | [place], | | | | | | [place] [address] | | | | | | [phone] | | | +--------+ + + + [...] Telephone Encounter - Claudia Michelle RN - 10/04/2014 2:13 PM PDTCalled Nazario and advise d per Dr Lowe that his nocturnal pulse oximetry performed on O2 at 3 l/m looks good an d continue on 3 l/m at night. Okay per patient. Order sent to [facility]. documented in this encounter Plan of Treatment [...] | | | | | [place] [address] | | | | | | [phone] | | | | | | | | +--------+---------+ + + + | 04/19/ | Office | Pulmonology | Alfonso Wallace MD | | | 2020 | Visit | | [address] | | | | | | [place] | | | | | | [address] | | | | | | | [...]
--- OUTSIDE RECORDS SUMMARY | ~2020-01-14 | XMS | Encounter Summary ---
Demographics + + + | Address | [address] | | | [place] [address] | + + + | Home Phone [...] [place] | | | | | [address] | | + + + + + | Tanika Jean | ECON | Unknown | | + + + + + Care Team Providers + +------+ + | Care Varnish Mixer Name | Role | Phone | [...] Frazier MD | | | | | [place], | | | | | | [place] [address] | | | | | | [phone] | | | +--------+--------+ + + + [...] | | | | | [place] [address] | | | | | | [phone] | | | | | | | | +--------+---------+ + + + | 04/19/ | Office | Pulmonology | Alfonso Wallace MD | | | 2020 | Visit | | [address] | | | | | | [place] | | | | | | [phone] | | | | | | | [...]
--- OUTSIDE RECORDS SUMMARY | ~2020-01-14 | XMS | Encounter Summary ---
Demographics + + + | Address | [address] | | | [place] [address] | + + + | Home Phone [...] #[place] | | | | | [address] | | + + + + + | Tanika Jean | ECON | Unknown | | + + + + + Care Team Providers + +------+ + | Care Art Gilder Name | Role | Phone | + +------+ + PCP | Unavailable | + +------+ + Encounter Details +--------+ + + + + | Date | Type | Department | Care Team | Description | +--------+ + + + + | / | Hospital | [facility] | Zoran Espinoza, | Vitreous membranes | | 1999 | Encounter | [facility] | [address] | | | | | OUTPATIENT | [place], [place] | | | | | PROCEDURES [address] | [address] | | | | | [address] [place] | | | | | | [place], [place] | | | | | | [address] | | | | | | [phone] | | | +--------+ + + + [...] | | | | | [place] [address] | | | | | | [phone] | | | | | | | | +--------+---------+ + + + | 04/19/ | Office | Pulmonology | Alfonso Wallace MD | | | 2020 | Visit | | [address] | | | | | | [place] | | | | | | [address] | | | | | | | | +--------+---------+ + + + documented as of this encounter Visit Diagnoses + + | Diagnosis | + + | Vitreous membranes Vitreous membranes and strands | + + documented in this encounter"
--- OUTSIDE RECORDS SUMMARY | ~2020-01-14 | XMS | Encounter Summary ---
Demographics + + + | Address | [address] | | | [place] [address] | + + + | Home Phone [...] #[address] | | | | | [address] | | + + + + + | Tanika Jean | ECON | Unknown | | + + + + + Care Team Providers + +------+ + | Care Drug Safety Data Management Specialist Name | Role | Phone | [...] RN | obstructive | | | | [place], | | pulmonary disease) | | | | [place] [address] | | ([facility]LY [facility]); Nocturnal | | | | [phone] | | hypoxemia | +--------+ + + [...] | | | | | [place] [address] | | | | | | [phone] | | | | | | | | +--------+---------+ + + + | 04/19/ | Office | Pulmonology | Alfonso Wallace MD | | | 2020 | Visit | | [address] | | | | | | [place] | | | | | | [address] | | | | | | | | +--------+---------+ + + + documented as of this encounter Visit Diagnoses + + | Diagnosis | + + | COPD (chronic obstructive pulmonary disease) (HCC) Chronic airway obstruction, not | | elsewhere classified | + + | Nocturnal hypoxemia Hypoxemia | + + documented in this encounter"
--- OUTSIDE RECORDS SUMMARY | ~2020-01-14 | XMS | Encounter Summary ---
Demographics + + + | Address | [address] | | | [place] [address] | + + + | Home Phone [...] #[address] | | | | | [address] | | + + + + + | Tanika Jean | ECON | Unknown | | + + + + + Care Team Providers + +------+ + | Care Decorating Kiln Operator Name | Role | Phone | + +------+ + | No, Physician | PCP | Unavailable | + +------+ + Reason for Visit +--------+--------+ + | Reason | Onset | Comments | | | Date | | +--------+--------+ + | Other | 08/13/ | update regarding cancellation of procedure | | | 2019 | | +--------+--------+ + Encounter Details +--------+ + + + + | Date | Type | Department | Care Team | Description | +--------+ + + + + | 08/13/ | Telephone | [facility] | Aidee Mitchell RN | Other (update | | 2019 | | PULMONOLOGY [address] | | regarding | | | | [address] | | cancellation of | | | | [place] | | procedure) | | | | [address] | | | | | | [phone] | | | +--------+ + + + [...] this encounter Miscellaneous Notes Telephone Encounter - Tran Brown - 08/14/2019 3:55 PM PDTLavern, is calling again for Other (update regarding cancellation of procedure) and would like a call back. Additional Call Details: Requesting call back after surgery tomorrow to see how everything went since she is not able to be there due to visitor policy elephone Encoun Aidee Green RN - 08/14/2019 2:43 PM PDTCalled and left detailed message for Virgie. Message indicates that procedure will be cancelled for Nazario tomorrow with Dr. Wallace, as no o ne is able to contact Nazario or his at this time. Left call back number for any questions regarding this. documente d in this encounter Plan of Treatment +--------+---------+ [...] | | | | | [place] [address] | | | | | | [phone] | | | | | | | | +--------+---------+ + + + | 04/19/ | Office | Pulmonology | Alfonso Wallace MD | | | 2020 | Visit | | [address] | | | | | | [place] | | | | | | [address] | | | | | | | [...]
--- OUTSIDE RECORDS SUMMARY | ~2020-01-14 | XMS | Encounter Summary ---
Demographics + + + | Address | [address] | | | [place] [address] | + + + | Home Phone [...] #[address] | | | | | [address] | | + + + + + | Tanika Jean | ECON | Unknown | | + + + + + Care Team Providers + +------+ + | Care Architectural Draftsman Name | Role | Phone | + +------+ + | Jose Angel Reina MD | PCP | | + +------+ + Reason for Visit + +--------+ + | Reason | Onset | Comments | | | Date | | + +--------+ + | Medication Refill | 10/13/ | | | | 2013 | | [...] | | | | | | [place] [address] | | | | | | [phone] | | | +--------+--------+ + + + [...] | | | | | [place] [address] | | | | | | [phone] | | | | | | | [...]
--- OUTSIDE RECORDS SUMMARY | ~2020-01-14 | XMS | Encounter Summary ---
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) | [address] | | [address] | | | [address] | [address] | | | | | | | [place] | | | | | | | [place] [address] | | | | | | | Phone: | | | | | | | [phone] | | | | | | | Fax: | | | | | | | [phone] | | +--------+ + + + + + Reason for Visit + + + | Reason | Comments | + + + | Follow-up | Review MRI results | + + + Encounter Details +--------+---------+ + + + | Date | Type | Department | Care Team | Description | +--------+---------+ + + + | 01/19/ | Office | [facility] | Roderick Lopez MD [address] | Gait abnormality | | 2012 | Visit | NEUROLOGY [place] | [address] | (Primary Dx); | | | | [address] [facility], | [address] [place], | Cerebellar ataxia | | | | [address] [facility] | [place] [address] | ([facility]); Intention | | | | [place] [address] | [phone] | tremor | | | | [phone] | | | +--------+---------+ + + + [...] this encounter Patient Instructions Patient Instructions Roderick Lopez MD - 01/19/2013 1:56 PM PDT1. 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 Plan to check your blood work t galina for potential causes, it is likely a condition that runs in your family. Recommend for you to be seen by ataxia specialist at [facility]. If you have any questions please let me know.El ectronically signed by Roderick Lopez MD at 01/19/2013 2:03 PM PDT documented in this encounter Progress Notes Roderick Lopez MD - 01/19/2013 3:45 PM PDTFormatting of this note might be different from the o heleninal. Neurology Clinic Follow Up Note PCP: Jose [...] pper. - I would refer him to [facility] to see ataxia specialist for further [...] patient. Please do not hesitate to contact m e if you have any questions. Cc: MD Karlos Mchugh MD [facility] Miscellaneous Notes Addendum Note - Roderick Lopez MD - 01/24/2013 9:46 AM PDT Addended by: RODERICK LOPEZ on: 01/24/2013 09:46 Modules accepted: Orders documented in this encount Plan of Treatment +--------+---------+ + + + | Date | Type | Specialty | Care Team | Description | +--------+---------+ + + + | 01/28/ | Office | Infectious Diseases | Sana Dawson | | | 2019 | Visit | | Jazmin Stringer MD | | | | | | [address] | | | | | | [place] [address] | | | | | | [phone] | | | | | | | | +--------+---------+ + + + | 04/19/ | Office | Pulmonology | Alfonso Wallace MD | | | 2020 | Visit | | [address] | | | | | | [place] | | | | | | [address] | | | | | | | | +--------+---------+ + + + + +------+--------+ + + | Name | Type | Priori | Associated Diagnoses | Order Schedule | | | | ty | | | + +------+--------+ + + | Copper, 24Hr, Urine | Lab | Routin | Cerebellar ataxia | 1 Occurrences | | | | e | ([facility]) | starting 01/19/2013 | | | | [...] | [address] | | | | [place] | | MEDICAL | | | | [id number]: [id number] | | CENTER - | | | [...] + | [facility] | [address] | [place] | [phone] | | [facility] | | [address] | | | - LABORATORY | | | | + + + + + | [facility] | [address] | [place] | | | [facility] | | [address] | | | - LABORATORY | | [...] performed on the Josr | uIU/mL | [facility] | | | | [address] | [...] [address] | [place] | [phone] | | [facility] | | [address] | | | - LABORATORY | | | | + + + + + | [facility] | [address] | [place] | | | [facility] | | [address], [facility] | | | - LABORATORY [...] | | | | | [place] [address] | | | | | | CLIA: [id number] | | | | + + + + + + + + | Specimen | + + | Blood specimen | | (specimen) | + + + + + + + | Performing | Address | City/State/Zipcode | Phone Number | | Organization | | | | + + + + + | [facility] | [address] | [place] | [phone] | | [facility] | | [address] | | | - LABORATORY | | | | + + + + + | [facility] | [address] | [place] | | | [facility] | | [id number] [place] [address] | | | - LABORATORY | | [...] + | [facility] | [address] | [place] | [phone] | | [facility] | | [address] | | | - LABORATORY | | | | + + + + + | [facility] | [address] | [place] | | | [facility] | | [address] | | | - LABORATORY | | | | + + + + + Comprehensive Metabolic Panel (01/19/2013 3:38 PM PDT) + + + + + + | Component | Value | Ref Range | Performed | Pathologist | | | | | At | Signature | + + + + + + | Glucose | 91 | 70 - 109 mg/dL | [facility] | | | | | | [facility] | | | | | | [...] | 0.84 | 0.60 - 1.30 | [facility] | | | | | mg/dL | [...] + | [facility] | [address] | [place], [place] | [phone] | | [facility] | | [address] | | | - LABORATORY | | | | + + + + + | [facility] | [address] | [place], [place] | | | [facility] | | [address] | | | - LABORATORY | | [...] | | | Monocytes | | | [facility] | | | | | | MEDICAL | | | | | | CENTER - | | | | | | LABORATORY | | + +---------+ + + + | Absolute | 0.2 | 0.0 - 0.4 K/uL | [facility] | | | Eosinophils | | | [facility] | | | | | | MEDICAL | | | | | | CENTER - | | | | | | LABORATORY | | + +---------+ + + + | Absolute | 0.2 (H) | 0.0 - 0.1 K/uL | [facility] | | | Basophils | | | [facility] | | [...] + | [facility] | [address] | [place], [place] | [phone] | | [facility] | | [address] | | | - LABORATORY | | | | + + + + + | [facility] | [address] | [place], [place] | | | [facility] | | [id number] [place] [address] | | | - LABORATORY | | [...]
--- OUTSIDE RECORDS SUMMARY | ~2020-01-14 | XMS | Encounter Summary ---
Demographics + + + | Address | [address] | | | [place] [address] | + + + | Home Phone | | + + + | Preferred Language | Unknown | + + + | Marital Status | | + + + | Lutheran Affiliation | 1061 | + + + | Race | White | + + + | Ethnic Group | Not or | + + + Author + + + | Author | [facility] | | | and [place] | + + + | Organization | [facility] | | | and [place] | + + + | Address | Unknown | + + + | Phone | Unavailable | + + + Support + + + + + | Name | Relationship | Address | Phone | + + + + + | Palak Daugherty | ECON | #[address] | | | | | [address] | | + + + + + | Tanika Jean | ECON | Unknown | | + + + + + Care Team Providers + +------+ + | Care Gas Engine Mechanic Name | Role | Phone | [...] | Karlos Gatica MD | [address] | | | | | spinal | [address] | [place], | | | | | stenosis | [address] | [place] | | | | | Facet | [place], | [address] | | | | | arthritis of | [place] [address] | Phone: | | | | | lumbar | Phone: | [phone] | | | | | region | [phone] | Fax: | | | | | Lumbalgia | Fax: | [phone] | | | | | Procedures | [phone] | | | | | | MRI [...] | Visit | MEDICINE | [address] | stenosis (Primary | | | | REHABILITATION [address] | [place] | Dx); Facet arthritis | | | | [address] | [address] | of lumbar region; | | | | [place] | | Lumbalgia; | | | | [address] | | Claustrophobia | | | | [phone] | | | +--------+---------+ + + + [...] office note has been dictated. Job ID# [id number] signed by Karlos Craig MD at 01/19/2013 6:06 PM Arleen Ashby RN - 01/19/2013 2:28 PM PDTPatient stets he continues to have unsteady gait. No back lucinda n at this time. Patient continues to work with PT. Karlos Garcia MD - 01/19/2013 12:00 AM PDT [facility]INE [facility]AB [address] [place] [address] FAX: [phone] OFFICE VISIT PHYSICAL MEDICINE REHABILITATION PROGRESS NOTE [...] was recommended that he be evaluated at [facility]. T his is pending. When he was [...] worth of physical therapy appointments yet to [facility]. Mr. Daugherty has not noted any [...] there is "degenerative changes of the posterior stillaguamish ents of L5, otherwise unremarkable lumbar spine." [...] He should be evaluated for assistive wal rosmeary devices originally requested. He is still undergoing [...] is necessary for his back. If his [facility] MRI is normal, I would attribute his current sensation and symptoms as to the ataxia a nd neurologic diagnosis that Dr. Williamson has given him. However, if there is evidence of lumbar spinal stenosis, neural foraminal narrowing or contribution towards lumbar radiculopathy, these issues may be addressed. Approximately 30 minutes was spent [id number] today with Mr. Daugherty, over half of which was spent formulating and discussing his medical treatment plan. Thank you for allowing me to be involved in the care of your patient. If you have any quest ions regarding the care of Mr. Daugherty, please do not hesitate to call. Karlos Craig Jr, MD GEM / PAP JOB #: [id number] cc: Peter Reina MD documented in this [...] | | | | | [place] [address] | | | | | | [phone] | | | | | | | | +--------+---------+ + + + | 04/19/ | Office | Pulmonology | Alfonso Wallace MD | | | 2020 | Visit | | [address] | | | | | | [place] | | | | | | [address] | | | | | | | | +--------+---------+ + + + documented as of this encounter Results MRI Lumbar Spine wo Contrast (02/22/2013 3:17 PM PST) + + | Specimen | + + | | + + + + + | Narrative | Performed At | + + + | [facility] | [place] | | Department [address] [facility] | | [ rep [address]] [ rep [facility] | | st zip] Signed | - IMAGING | | | | | Patient Name: KEVIN DAUGHERTY SR | | | Physician: ROBINA : 1950 Age: 62 Sex: M Unit | | | #: [id number] Exam Date: 02/22/13 Location: | | | [facility] Report #: [id number] Page: | | | %(RAD)RES..mtdd.print.filter("pg") of %(RAD) | | | RES..mtdd.print.filter("tpg") | | | | | | Accession Number: [id number] | | | LUMBAR SPINE WITHOUT CONTRAST CLINICAL HISTORY: CHRONIC | | | LOW BACK PAIN WITH RADIATION TO BOTH LEGS. WEAKNESS. | | | COMPARISON: Lumbar spine radiograph dated 12/08/2012 from [facility] | | | [facility]. TECHNIQUE: Multiplanar, | | | [...] Transcribed Date/Time: 02/22/2013 | | | 18:05 Valve Inserter: <<Signature on | | | File>> | | | Yared | | | Monica Diaz MD02/22/132110 <Electronically signed by Yared Anderson | | | Joe ARIAS> Yared Diaz MD 02/22/13 7997 | | | Valve Inserter: [employer] Twrgiybytopsm73/20/13 0426 | | | Karlos Craig Jr, MD | | + + + + + + + + | Performing | Address | City/State/Zipcode | Phone Number | | Organization | | | | + + + + + | [facility] | [address] | [place] | [phone] | | [facility] | | [address] | | | - IMAGING | | [...]
--- OUTSIDE RECORDS SUMMARY | ~2020-01-14 | XMS | Encounter Summary ---
Demographics + + + | Address | [address] | | | [place] [address] | + + + | Home Phone [...] #[place] | | | | | [address] | | + + + + + | Tanika Jean | ECON | Unknown | | + + + + + Care Team Providers + +------+ + | Care 3D Modeler Name | Role | Phone | + [...] | Diagnoses | [place], | [facility] | | | | | Lung mass | MD Alfonso | Nuclear | | | | | Procedures | [address] | Medicine 945 | | | | | PET CT Skull | [address] | [address] [place] | | | | | Base To Mid | [address] | [address] | | | | | Thigh | [place], [place] | [place], [place] | | | | | | [address] | [address] | | | | | | Phone: | Phone: | | | | | | [phone] | [phone] | | | | | | Fax: | Fax: | | | | | | [phone] | [phone] | +--------+--------+ + + + + Reason for Visit +---------+ + | Reason | Comments | +---------+ + | Results | CT | +---------+ + Encounter Details +--------+ + + + + | Date | Type | Department | Care Team | Description | +--------+ + + + + | 11/28/ | Virtual | [facility] | Alfonso Wallace MD | Lung mass (Primary | | 2019 | Office | PULMONOLOGY [address] | [address] | Dx); Personal | | | Visit | [address] | [address] [place], [place] | history of tobacco | | | | [place], [place] | [address] | use, presenting | | | | [address] | | hazards to health; | | | | [phone] | | Mass of upper lobe | | | | | | of right lung; | | | | | | Centrilobular | | | | | | emphysema (HCC); | | | | | | Chronic respiratory | | | | | | failure with hypoxia | | | | | | and hypercapnia | | | | | | (HCC); Mycobacterial | | | | | | infection, non-TB | +--------+ + + + + Social [...] documented as of this encounter Progress Notes Alfonso Wallace MD - 11/29/2019 3:20 PM PDT Subjective: Patient ID: Nazario Aguilar Sr. 69 y.o. is here for evaluation of follow-up for righ t upper lobe mass. HPI Patient's medications, allergies, [...] pain. He do es not drink alcohol. Interim history 11/29/2019 The patient has been stable since her last visit. He continues to smoke. H he has no weig ht loss. Review of Systems Constitutional: Negative. HENT: Negative. Eyes: Negative. Respiratory: Positive for cough, shortness of breath and wheezing. Cardiovascular: Negative. Gastrointestinal: Negative. Genitourinary: Negative. Musculoskeletal: Negative. Skin: Negative. Neurological: Positive for dizziness and tremors. Endo/Heme/Allergies: Negative. Psychiatric/Behavioral: Negative. History: Past Medical History: Diagnosis Date Asthma Ataxia Colon polyps 2015 due for repeat early 2017 COPD (chronic obstructive pulmonary disease) (HCC) Diabetes mellitus (HCC) GARCÍA (dyspnea on exertion) Erectile dysfunction Facet arthritis of lumbar region Hernia, hiatal HTN (hypertension) Hyperlipidemia Kidney stone PLMD (periodic limb movement disorder) Pneumonia Restless legs syndrome Rotator cuff arthropathy Seasonal allergies Seizure disorder (HCC) Past Surgical History: Procedure Laterality Date BRONCHOSCOPY Bilateral 08/15/2019 Procedure: BRONCHOSCOPY ELECTROMAGNETIC NAVIGATION; Surgeon: Alfonso Wallace MD; Location: [facility] MEDICAL PROCEDURE UNIT CHOLECYSTECTOMY COLONOSCOPY 2015 dysplastic polyps, Dr. Che EYE SURGERY HERNIA REPAIR TONSILLECTOMY Social History Socioeconomic History Marital status: Spouse name: Not on file Number of children: Not on file Years of education: Not on file Highest education level: Not on file Occupational History Not on file Social Needs Financial resource strain: Not on file Food insecurity Worry: Not on file Inability: Not on file Transportation needs Medical: Not on file Non-medical: Not on file Tobacco Use Smoking status: Current Every Day Smoker Packs/day: 2.00 Years: 46.00 Pack years: 92.00 Types: Cigarettes Start date: 1963 Smokeless tobacco: Never Used Substance and Sexual Activity Alcohol use: No Alcohol/week: 0.0 standard drinks Drug use: No Sexual activity: Not on file Lifestyle Physical activity Days per week: Not on file Minutes per session: Not on file Stress: Not on file Relationships Social connections Talks on phone: Not on file Gets together: Not on file Attends amish service: Not on file Active member of club or organization: Not on file Attends meetings of clubs or organizations: Not on file Relationship status: Not on file Intimate partner violence Fear of current or ex partner: Not [...] mLs into the lungs Every 4 hours. amoxicillin-clavulanate (AUGMENTIN) 500-125 mg per tablet Take 1 tablet by mouth 2 time s daily. (Patient not taking: Reported on 11/29/2019.) 28 tablet 0 aspirin 325 mg tablet Take 325 mg [...] medications on file prior to visit. Objective: There were no vitals filed for this visit. No results found. Assessment and plan 1. Lung mass The patient has a cavitary lesion in the right upper lobe. He underwent a biopsy which was negative for malignancy however on today's CT scan I see persistence although a very slight decrease. I will order a PET/CT and if it is PET avid I will get a CT-guided biopsy versus repeating bronchoscopy. If it is PET negative then we will refer him to infectious disease for evaluation for treatment for Mycobacterium avium. - PET CT Skull Base To Mid Thigh; Future 2. Personal history of tobacco use, presenting hazards to health The patient was councelled about smoking cessation. He/she has been educated about harms of smoking that include but are not limited to cancers of lung and other organ system,cardiova scular disease, and worsening of his pulmonary disease. I have offered him aides to help w ith smoking cessation including nicotine replacement, and anti-depressant medications. We spent 10 minutes in smoking cessation discussion 3. Centrilobular emphysema (HCC) The patient has centrilobular emphysema. I have advised him to continue using Advair 500/5 1 1 puff 2 times daily. 4. Chronic respiratory failure with hypoxia and hypercapnia (HCC) Continue oxygen at 2 L/min to keep oxygen saturation more than 90% 5. Mycobacterial infection, non-TB Please see above. Thank you for allowing me to participate in your patient's care. We will review test result s that we have ordered with the patient once they become available. A return visit has been scheduled in 6 weeks. Alfonso Wallace MD Pulmonary and Critical Care Medicine [facility] [address] [place] [address] evaluation exam however we advised not sending you a line advised down francy beaulieu ed documented in this enco unter Plan of Treatment +--------+---------+ + + + | Date | Type | Specialty | Care Team | Description | +--------+---------+ + + + | 01/28/ | Office | Infectious Diseases | Sana Dawson | | | 2019 | Visit | | Jazmin Stringer MD | | | | | | [address] | | | | | | [place] [address] | | | | | | [phone] | | | | | | | | +--------+---------+ + + + | 04/19/ | Office | Pulmonology | Alfonso Wallace MD | | | 2020 | Visit | | [address] | | | | | | [place] | | | | | | [address] | | | | | | | | +--------+---------+ + + + documented as of this encounter Results PET CT Skull Base To Mid Thigh [...] | Final Report Signed by: Jam Bond, Pushpender Sign Date/Time: | | | 12/18/2019 10:16 [...] Procedure Note | + + | Blake, [id number] - 12/18/2019 10:20 AM PDT EXAM DESCRIPTION [...] | Final Report Signed by: Jam Bond, Pushpender | | Sign Date/Time: 12/18/2019 10:16 AM | + + + +---------+ + + | Performing | Address | City/State/Zipcode | Phone Number | | Organization | | | | + +---------+ + + | [facility] | | | | + +---------+ + + documented in this encounter Visit Diagnoses + + | Diagnosis | + + | Lung mass - Primary Swelling, mass, or lump in chest | + + | Personal history of tobacco use, presenting hazards to health | + + | Mass of upper lobe of right lung | + + | Centrilobular emphysema (HCC) | + + | Chronic respiratory failure with hypoxia and hypercapnia (HCC) | + + | Mycobacterial infection, non-TB Unspecified diseases due to mycobacteria | + + documented in this encounter"
--- OUTSIDE RECORDS SUMMARY | ~2020-01-14 | XMS | Encounter Summary ---
Demographics + + + | Address | [address] | | | [place] [address] | + + + | Home Phone [...] [place] | | | | | [address] | | + + + + + | Tanika Jean | ECON | Unknown | | + + + + + Care Team Providers + +------+ + | Care Rounding Machine Operator Name | Role | Phone [...] Frazier MD | | | | | [place], | | | | | | [place] [address] | | | | | | [phone] | | | +--------+--------+ + + + [...] | | | | | [place] [address] | | | | | | [phone] | | | | | | | | +--------+---------+ + + + | 04/19/ | Office | Pulmonology | Alfonso Wallace MD | | | 2020 | Visit | | [address] | | | | | | [place] | | | | | | [phone] | | | | | | | [...]
--- OUTSIDE RECORDS SUMMARY | ~2020-01-14 | XMS | Encounter Summary ---
Demographics + + + | Address | [address] | | | [place] [address] | + + + | Home Phone [...] #[place] | | | | | [address] | | + + + + + | Tanika Jean | ECON | Unknown | | + + + + + Care Team Providers + +------+ + | Care Healthcare Advisory Services Manager Name | Role | Phone | + +------+ + | Jose Angel Reina MD | PCP | | + +------+ + Encounter Details +--------+ + + + + | Date | Type | Department | Care Team | Description | +--------+ + + + + | 06/16/ | Hospital | [facility] | Offenstein, | Chronic obstructive | | 2016 | Encounter | MED CTR PULMONARY | Ling Frazier MD | pulmonary disease, | | | | FUN[address] | | unspecified COPD | | | | [place], | | type (HCC); | | | | [place] [address] | | Hypoxemia | | | | [phone] | | | +--------+ + + + [...] + + | Comments: 06/17/15: "Down to 2 pack/day" | + + + + +---------+ [...] | | | | | | type ([facility]) | months | | [...] | | | | | | | ([facility]) | | | | [...] | 11 | 05/20/19 | | | (DERIK MERARY) | the lungs Daily. | Inhaler | [...] ARCE | | | | | | [place] [address] | | | | | | [phone] | | | | | | | | +--------+---------+ + + + | 04/19/ | Office | Pulmonology | Alfonso Wallace MD | | | 2020 | Visit | | [address] | | | | | | [place] | | | | | | [address] | | | | | | | [...]
--- OUTSIDE RECORDS SUMMARY | ~2020-01-14 | XMS | Encounter Summary ---
Demographics + + + | Address | [address] | | | [place] [address] | + + + | Home Phone [...] #[place] | | | | | [address] | | + + + + + | Tanika Jean | ECON | Unknown | | + + + + + Care Team Providers + +------+ + | Care Research Center Partner Name | Role | Phone | + [...] + + | 03/15/ | Office | [facility] | [place], | COPD (chronic | | 2013 | Visit | PULMONARY [address] | Ling Frazier MD | obstructive | | | | [place], | | pulmonary disease) | | | | [place] [address] | | [facility] (Primary Dx); | | | | [phone] | | Nocturnal hypoxemia | | | | | | due to emphysema | | | | | | ([facility]); Tobacco abuse | +--------+---------+ [...] see if they have smoking cessation classes. [facility] offers free smoking cessation classes. We want [...] AM PSTFormatting of this note might be desire santos from the original. Pulmonary Follow Up HPI [...] day. He ran out of the albuterol Positronicsu lizer, and went back to using his Duonebs until he could get this refilled. He has been usin g the nebulizer 3 times daily. He returns today for routine follow up. Currently he is able to walk 1/2 mile at his own pace on level ground, using a grocery cart . He is exercising regularly. He goes to [employer] to walk every day when his goes to [employer], and walks 1-2 laps. He does not cough very often. He has not had hemoptysis. He has been evaluated for nocturnal oxygen and does use it. He is currently on 3 L[facility]. He reports good compliance. Past Medical [...] Breath. Dx: 496 RINA: 99 months [employer] [place] 360 vial 4 aspirin 81 mg EC tablet Take 81 mg by mouth Daily. yoxhrjr-ktkjgfnojfejd-wjeysyqk (HEADACHE RELIEF) 250-250-65 MG per tablet Take [...] made to ensure accuracy; however, inadvertent computerized electronics processing supervisor errors may be pre sent. documented in [...] | | | | | | [place] [address] | | | | | | [phone] | | | | | | | | +--------+---------+ + + + | 04/19/ | Office | Pulmonology | Alfonso Wallace MD | | | 2020 | Visit | | [address] | | | | | | [place] | | | | | | [address] | | | | | | | [...]
--- OUTSIDE RECORDS SUMMARY | ~2020-01-14 | XMS | Encounter Summary ---
Demographics + + + | Address | [address] | | | [place] [address] | + + + | Home Phone | | + + + | Preferred Language | Unknown | + + + | Marital Status | | + + + | Jainism Affiliation | 1061 | + + + | Race | White | + + + | Ethnic Group | Not or | + + + Author + + + | Author | [facility] | | | and [place] | + + + | Organization | [facility] | | | and [place] | + + + | Address | Unknown | + + + | Phone | Unavailable | + + + Support + + + + + | Name | Relationship | Address | Phone | + + + + + | Palak Aguilar | ECON | #[place] | | | | | [address] | | + + + + + | Tanika Jean | ECON | Unknown | | + + + + + Care Team Providers + +------+ + | Care Urban Designer Name | Role | Phone | [...] + + | 01/18/ | Office | [facility] | [place], | COPD (chronic | | 2011 | Visit | PULMONARY [address] | Ling Frazier MD | obstructive | | | | [place], | | pulmonary disease) | | | | [place] [address] | | ([facility]) (Primary Dx); | | | | [phone] | | Hypoxemia; Periodic | | | [...] nd it. Keep your chin up. 3. [place] 1 puff into the spacer by pressing [...] your mouth.) 3. Keep your chin up. [place] 1 puff by pressing down on the [...] store it in a dry p lace. 7541[address] [place] [address]. All rights reserve d. This information is [...] be interested in doing physical therapy at [facility]. He does not cough chronically, [...] We will continue. Needs flu shot - [place] FLU VACCINE =>3YO PRESERVATIVE FREE IM Need [...] 012 2:39 PM PDTdocumented in this encounter Miscellaneous Notes Miscellaneous - SUZAN HINOJOSA [facility] - 01/19/2012 12:00 AM PDT documented in this encounter Plan of Treatment +--------+---------+ + + + | Date | Type | Specialty | Care Team | Description | +--------+---------+ + + + | 01/28/ | Office | Infectious Diseases | Sana Dawson | | | 2019 | Visit | | Jazmin Stringer MD | | | | | | [address] [facility] | | | | | | [place] [address] | | | | | | [phone] | | | | | | | | +--------+---------+ + + + | 04/19/ | Office | Pulmonology | Alfonso Wallace MD | | | 2020 | Visit | | [address] | | | | | | [place] | | | | | | [address] | | | | | | | [...] for prophylactic vaccination with combined | | cadivegqzz-pqfrmxz-qtrnqotxc (DTP) vaccine | + + documented in this encounter
--- OUTSIDE RECORDS SUMMARY | ~2020-01-14 | XMS | Encounter Summary ---
Demographics + + + | Address | [address] | | | [place] [address] | + + + | Home Phone [...] | Author | [facility] | | | and [place] | + + + | Organization | [facility] | | | and [place] | + + + | Address | Unknown | + + + | Phone | Unavailable | + + + Support + + + + + | Name | Relationship | Address | Phone | + + + + + | Palak Aguilar | ECON | #[place] | | | | | [address] | | + + + + + | Tanika Jean | ECON | Unknown | | + + + + + Care Team Providers + +------+ + | Care Board Certified Arts Therapist Name | Role | Phone | + [...] | shoulder | [address] | | | | n | pain | [address] | [place], | | | | | Rotator cuff | [place], | [place] [address] | | | | | tendonitis, | [place] [address] | Phone: | | | | | right | Phone: | [phone] | | | | | | [phone] | Fax: | | | | | | Fax: | [phone] | | | | | | [phone] | | +--------+ + + + + [...] + + | 10/11/ | Office | [facility] | Karlos Craig, | Right shoulder pain | | 2013 | Visit | PHYSIATRY [address] | [address] | (Primary Dx); | | | | [address] | [place] | Rotator cuff | | | | [place] | [address] | tendonitis, right; | | | | [address] | | Lumbalgia; Lumbar | | | | [phone] | | facet arthropathy; | | | [...] of the notes from your neurologist at [facility]. We will review them wit h you at your next visit. Continue working toward stopping smoking.Electronically signed by Karlos Craig MD at 12/2013 11:33 AM PDT documented in this encounter Progress Notes Karlos Craig MD - 10/11/2013 11:34 AM PDTThis office note has been dictated. Job ID# [id number] signed by Karlos Craig MD at 10/11/2013 12:06 PM PDTLa, Alesha Walls RN - 10/11/2013 11:10 AM PDTBack and right shoulder pain is doing better. Evaluated at [facility] for ataxia but at the moment they requested expensive testing that the pt couldn't afford, jarred michael will be following up with them in 1 year. Not doing PT at this moment, but doing fitz ening and home exercises Karlos Craig MD - 10/11/2013 12:00 AM PDT PHYSICAL MEDICINE AND REHAB [address] [place] [id number] FAX: [phone] OFFICE VISIT CONSULT REQUESTED BY: Jose Angel [...] He indicates that he was seen at [facility] Neurology Department for his [...] available at this time. Neurology notes from [facility] have not yet been [...] does not feel like he has the me ans or ability to do so. He was encouraged to contact the 3-148-BL-BUTTS smoking cessation program. ALLERGIES 1. LEVAQUIN. 2. [...] In regard to his ataxia, notes from [facility] have been requeste d for review [...] tear. Greater than 30 minutes was spent ysgc-ew-fgjp today with Mr. Aguilar, over half of which w as spent formulating and discussing his medical treatment plan. Thank you for allowing me to be involved in the care of your patient. If you have any quest ions regarding the care of Mr. Aguilar, please do not hesitate to call. Karlos Craig Jr, MD PURVI / STERLING JOB #: [id number] cc: Peter Reina MD documented in this [...] | | | | | [place] [address] | | | | | | [phone] | | | | | | | | +--------+---------+ + + + | 04/19/ | Office | Pulmonology | Alfonso Wallace MD | | | 2020 | Visit | | [address] | | | | | | [place] | | | | | | [phone] | | | | | | | [...]
--- OUTSIDE RECORDS SUMMARY | ~2020-01-14 | XMS | Encounter Summary ---
Demographics + + + | Address | [address] | | | [place] [address] | + + + | Home Phone [...] #[place] | | | | | [address] | | + + + + + | Tanika Jean | ECON | Unknown | | + + + + + Care Team Providers + +------+ + | Care Senior Wind Turbine Technician Name | Role | Phone | [...] + + | 05/20/ | Office | [facility] | [place], | COPD with acute | | 2016 | Visit | PULMONARY [address] | Ling Frazier MD | exacerbation (HCC) | | | | [place], | | (Primary Dx); | | | | [place] [address] | | Nocturnal hypoxemia | | | | [phone] | | due to emphysema | | [...] PSTI would not ride a cart at [facility]. Instead, when you go shopping, start off [...] of Jose Angel Reina MD here tod [place] for follow up of COPD. At their last visit, we had continued him on Advair, Spiriva and Daliresp. Since their last visit he feels like he has been doing not so great. He was told he had bronchitis recently by the PATIENT SERVICE REP down in [place]. He was given a 5 day course [...] Currently he is able to walk across [facility] at his own pace on level ground, [...] Take 81 mg by mouth Daily. [DISCONTINUED] cunytiv-pqwsxwcuklpuf-mdbwrojb (HEADACHE RELIEF) 250-250-65 MG per table t [...] made to ensure accuracy; however, inadvertent computerized site lead errors may be pre sent. documented [...] [address] | | | | | | [place] [address] | | | | | | [phone] | | | | | | | | +--------+---------+ + + + | 04/19/ | Office | Pulmonology | Alfonso Wallace MD | | | 2020 | Visit | | [address] | | | | | | [place] | | | | | | [address] | | | | | | | [...]
--- OUTSIDE RECORDS SUMMARY | ~2020-01-14 | XMS | Encounter Summary ---
Demographics + + + | Address | [address] | | | [place] [address] | + + + | Home Phone [...] #[place] | | | | | [address] | | + + + + + | Tanika Jean | ECON | Unknown | | + + + + + Care Team Providers + +------+ + | Care Consulting Database Administrator Name | Role | Phone | [...] | | | | | Thigh | [place], [place] | [place], [place] | | | | | | [address] | [address] | | | | | | Phone: | Phone: | | | | | | [phone] | [phone] | | | | | | Fax: | Fax: | | | | | | [phone] | [phone] | +--------+--------+ + + + + Reason [...] | | | | | Thigh | [place], [place] | [place], [place] | | | | | | [address] | [address] | | | | | | Phone: | Phone: | | | | | | [phone] | [phone] | | | | | | Fax: | Fax: | | | | | | [phone] | [phone] | +--------+--------+ + + + + Encounter Details +--------+ + + + + | Date | Type | Department | Care Team | Description | +--------+ + + + + | 12/14/ | Hospital | [facility]ICAL | Alfonso Wallace MD | Lung mass | | 2020 | Encounter | [facility] | [address] | | | | | MEDICINE [address] | [place], [place] | | | | | [address] | [address] | | | | | [place], [place] | | | | | | [address] | | | | | | [phone] | | | +--------+ + + + [...] + + + +---------+ + + | BREO ELLIPTA | INHALE 1 PUFF BY | | 0 | 12/03/19 | | | 100-25 MCG/INH | MOUTH ONCE DAILY | | | 20 | | | inhaler | | | [...] | | | | | [address] | | | | | | [place] [address] | | | | | | [phone] | | | | | | | | +--------+---------+ + + + | 04/19/ | Office | Pulmonology | Alfonso Wallace MD | | | 2020 | Visit | | [address] | | | | | | [place] | | | | | | [address] | | | | | | | [...] + + documented in this encounter Results PET CT Skull Base [...] Final Report Signed by: Jam Bond, Caleb Snow Date/Time: | | | 12/18/2019 10:16 AM [...] Procedure Note | + + | Blake, [id number] - 12/18/2019 10:20 AM PDT EXAM DESCRIPTION [...] Testing | 65 - 99 mg/dL | [facility] | | | POC | performed at [facility];[address] | | LABORATORY | | | | [address];[place], [place] | | | | | | [address] | | | | + + + + + + + + | Specimen | + + | | + + + + + + + | Performing | Address | City/State/Zipcode | Phone Number | | Organization | | | | + + + + + | [facility] | [address] | [place] [address] | [phone] | + + + + + documented in this encounter Visit Diagnoses + + | Diagnosis | + + | Lung mass Swelling, mass, or lump in chest | + + documented in this encounter Administered Medications + +--------+ + +------+------+ | Medication Order | MAR | Action | Dose | Rate | Site | | | Action | Date | | | | + +--------+ + +------+------+ | fluorine-18 FDG injection 13.41 | Given | 12/15/19 | 13.41 | | | | millicurie 13.41 millicurie, | | 20 1:30 | millicur | | | | Intravenous, ONCE, 12/15/19 at | | PM PDT | ies | | | | 1330, For 1 dose | | | | | | + +--------+ + +------+------+ +---+---+ | | | +---+---+ documented in this encounter"
--- OUTSIDE RECORDS SUMMARY | ~2020-01-14 | XMS | Encounter Summary ---
Demographics + + + | Address | [address] | | | [place] [address] | + + + | Home Phone | | + + + | Preferred Language | Unknown | + + + | Marital Status | Single | + + + | Jewish Affiliation | Unknown | + + + | Race | Unknown | + + + | Ethnic Group | Other Race | + + + Author + + + | Author | [facility] | + + + | Organization | [facility] | + + + | Address | Unknown | + + + | Phone | Unavailable | + + + Care Team Providers + +------+ + | Care Alligator Trapper Name | Role | Phone | + +------+ + PCP | Unavailable | + +------+ + Encounter Details +--------+ + + + + | Date | Type | Department | Care Team | Description | +--------+ + + + + | 02/11/ | Documentati | Neurology at | Markel Genao, | | | 2010 | on | [facility] & | [address] | | | | | Healing [address] | [place], [place] | | | | | [address] [facility] | [address] | | | | | Health and Healing, | [phone] | | | | | [facility] | | | | | | Floor [place], [place] | | | | | | [address] | | | | | | [phone] | | | +--------+ + + + [...]
--- OUTSIDE RECORDS SUMMARY | ~2020-01-14 | XMS | Encounter Summary ---
Demographics + + + | Address | [address] | | | [place] [address] | + + + | Home Phone [...] + | Author | [facility] | | | and [place] | + + + | Organization | [facility] | | | and [place] | + + + | Address | Unknown | + + + | Phone | Unavailable | + + + Support + + + + + | Name | Relationship | Address | Phone | + + + + + | Palak Aguilar | ECON | #[place] | | | | | [address] | | + + + + + | Tanika Jean | ECON | Unknown | | + + + + + Care Team Providers + +------+ + | Care Instructional Technology Director Name | Role | Phone | [...] + + | 07/06/ | Office | [facility] PHYSICAL | Karlos Craig, | Neck pain on right | | 2013 | Visit | MEDICINE | [address] | side (Primary Dx); | | | | REHABILITATION [address] | [place] | Cervical strain, | | | | [address] | [address] | initial encounter; | | | | [place] | | Lumbar facet | | | | [address] | | arthropathy; | | | | [phone] | | Lumbalgia; Ataxia | +--------+---------+ + [...] to the clinic earlier. Follow up with [facility] regarding your ataxia. If your right shoulder pain gets worse, return to the clinic. Return to the clinic in 3 months, unless symptoms fail to improve or get worse.Electronical ly signed by Karlos Craig MD at 07/06/2013 1:55 PM PDT documented in this encounter Progress Notes Karlos Craig MD - 07/06/2013 1:55 PM PDTThis office note has been dictated. Job ID# [id number] signed by Karlos Craig MD at 07/06/2013 2:17 PM PDTArleen Kern RN - 07/06/2013 1:07 PM PDTPatient states 5/10 pain to neck. Karlos Garcia MD - 07/06/2013 12:00 AM [facility] PHYSICAL MEDICINE AND REHAB [address] [place] [address] FAX: [phone] OFFICE VISIT PHYSICAL MEDICINE REHABILITATION PROGRESS NOTE [...] with ataxia. He has a consult with [facility] Neurology Department, later this month regard ing [...] biceps, tricep s, wrist dorsiflexion, and hand english division chair. DATABASE: No new imaging or laboratory data [...] facet injections. He will followup w ith [facility] regarding his ataxia. In regards to his [...] pain worsens that he should seek u rgent care or return to the clinic. If [...] worse. Greater than 30 minutes was spent vori-ys-iaml today with Mr. Aguilar, over half of which w as spent formulating and discussing his medical treatment plan. Thank you for allowing me to be involved in the care of your patient. If you have any quest ions regarding the care of Mr. Aguilar, please do not hesitate to call. Karlos Craig Jr, MD GEM / PAP JOB #: [id number] cc: Peter Reina MD documented in this [...] | | | | | | [place] [address] | | | | | | [phone] | | | | | | | | +--------+---------+ + + + | 04/19/ | Office | Pulmonology | Alfonso Wallace MD | | | 2020 | Visit | | [address] | | | | | | [place] | | | | | | [phone] | | | | | | | [...]
--- OUTSIDE RECORDS SUMMARY | ~2020-01-14 | XMS | Encounter Summary ---
Demographics + + + | Address | [address] | | | [place] [address] | + + + | Home Phone [...] #[place] | | | | | [address] | | + + + + + | Tanika Jean | ECON | Unknown | | + + + + + Care Team Providers + +------+ + | Care Social Problems Specialist Name | Role | Phone | [...] + | 03/16/ | Office | [facility] PHYSICAL | Karlos Craig, | Lumbar facet | | 2012 | Visit | MEDICINE | MD [address] | arthropathy (Primary | | | | REHABILITATION [address] | [place] | Dx); Lumbalgia; | | | | [address] | [address] | Tobacco dependence | | | | [place] | | | | | | [address] | | | | | | [phone] | | | +--------+---------+ + + + [...] Your inje ction will be performed at [facility]. Please take note of weather your pain is significantly reduced in the hours immediately following the injecti on. Return to the clinic in 5 weeks. documented in this encounter Progress Notes Karlos Craig MD - 03/16/2013 4:31 PM PSTThis office note has been dictated. Job ID# [id number] signed by Karlos Craig MD at 03/16/2013 6:20 PM Arleen Lo RN - 03/16/2013 3:46 PM PSTPatient continues to have unsteady gait, Patient using 4WW to day. Patient states 5/10 right shoulder pain. Electronically signed by VERÓNICA Swain 03/16/2013 6:20 PM Karlos Berumen MD - 03/16/2013 12:00 AM [facility] PHYSICAL MEDICINE AND REHAB [address] [place] [address] FAX: [phone] OFFICE VISIT PHYSICAL MEDICINE REHABILITATION PROGRESS NOTE [...] He is encouraged to follow up with [facility] as previously requested to work up, diagnose [...] Jr, MD PURVI / FAUSTINO JOB #: [id number] cc: MD Peter Hatfield MD documented in [...] | | | | | [place] [address] | | | | | | [phone] | | | | | | | | +--------+---------+ + + + | 04/19/ | Office | Pulmonology | Alfonso Wallace MD | | | 2020 | Visit | | [address] | | | | | | [place] | | | | | | [address] | | | | | | | [...]
--- OUTSIDE RECORDS SUMMARY | ~2020-01-14 | XMS | Encounter Summary ---
Demographics + + + | Address | [address] | | | [place] [address] | + + + | Home Phone [...] #[place] | | | | | [address] | | + + + + + | Tanika Jean | ECON | Unknown | | + + + + + Care Team Providers + +------+ + | Care Quarter Folder Name | Role | Phone | + [...] due to emphysema | | | | [place], | | (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
--- OUTSIDE RECORDS SUMMARY | ~2020-01-14 | XMS | Encounter Summary ---
Demographics + + + | Address | [address] | | | [place] [address] | + + + | Home Phone [...] #[place] | | | | | [address] | | + + + + + | Tanika Jean | ECON | Unknown | | + + + + + Care Team Providers + +------+ + | Care Shovel Engineer Name | Role | Phone | [...] Frazier MD | | | | | [place], | | | | | | [place] [address] | | | | | | [phone] | | | +--------+--------+ + + + [...] | | | | | [place] [address] | | | | | | [phone] | | | | | | | | +--------+---------+ + + + | 04/19/ | Office | Pulmonology | Alfonso Wallace MD | | | 2020 | Visit | | [address] | | | | | | [place] | | | | | | [phone] | | | | | | | [...]
--- OUTSIDE RECORDS SUMMARY | ~2020-01-14 | XMS | Encounter Summary ---
Demographics + + + | Address | [address] | | | [place] [address] | + + + | Home Phone [...] #[place] | | | | | [address] | | + + + + + | Tanika Jean | ECON | Unknown | | + + + + + Care Team Providers + +------+ + | Care Volunteer Patient Representative Name | Role | Phone | + +------+ + | Jose Angel Reina MD | PCP | | + +------+ + Reason for Visit + +--------+ + | Reason | Onset | Comments | | | Date | | + +--------+ + | Medication Refill | 06/15/ | | | | 2013 | | [...] | | | | | | [place] [address] | | | | | | [phone] | | | +--------+--------+ + + + [...] [address] | | | | | | [place] [address] | | | | | | [phone] | | | | | | | | +--------+---------+ + + + | 04/19/ | Office | Pulmonology | Alfonso Wallace MD | | | 2020 | Visit | | [address] | | | | | | [place] | | | | | | [address] | | | | | | | | +--------+---------+ + + + documented as of this encounter Visit Diagnoses + + | Diagnosis | + + | COPD (chronic obstructive pulmonary disease) (HCC) - Primary Chronic airway | | obstruction, not elsewhere classified | + + documented in this encounter"
--- OUTSIDE RECORDS SUMMARY | ~2020-01-14 | XMS | Encounter Summary ---
Demographics + + + | Address | [address] | | | [place] [address] | + + + | Home Phone [...] #[place] | | | | | [address] | | + + + + + | Tanika Jean | ECON | Unknown | | + + + + + Care Team Providers + +------+ + | Care Job Printer Apprentice Name | Role | Phone | + +------+ + | Jose Angel Reina MD | PCP | | + +------+ + Reason for Visit + +--------+ + | Reason | Onset | Comments | | | Date | | + +--------+ + | Medication Refill | 02/11/ | | | | 2014 | | [...] | | | | | | [place] [address] | | | | | | [phone] | | | +--------+--------+ + + + [...] | | | | | [place] [address] | | | | | | [phone] | | | | | | | | +--------+---------+ + + + | 04/19/ | Office | Pulmonology | Alfonso Wallace MD | | | 2020 | Visit | | [address] | | | | | | [place] | | | | | | [address] | | | | | | | | +--------+---------+ + + + documented as of this encounter Visit Diagnoses Not on filedocumented in this encounter"
--- OUTSIDE RECORDS SUMMARY | ~2020-01-14 | XMS | Encounter Summary ---
Demographics + + + | Address | [address] | | | [place] [address] | + + + | Home Phone [...] #[place] | | | | | [address] | | + + + + + | Tanika Jean | ECON | Unknown | | + + + + + Care Team Providers + +------+ + | Care Reach Lift Truck Driver Name | Role | Phone [...] | Karlos Gatica MD | [address] | | | | | spinal | [address] | [place], | | | | | stenosis | [address] | [place] | | | | | Facet | [place], | [address] | | | | | arthritis of | [place] [address] | Phone: | | | | | lumbar | Phone: | [phone] | | | | | region | [phone] | Fax: | | | | | Lumbalgia | Fax: | [phone] | | | | | Procedures | [phone] | | | | | | MRI Lumbar | | | | | | | Spine wo | | | | | | | Contrast | | | +--------+--------+ + + + + Encounter Details +--------+ + + + + | Date | Type | Department | Care Team | Description | +--------+ + + + + | 02/22/ | Hospital | [facility] | Karlos Craig, | Lumbar spinal | | 2012 | Encounter | MED CTR XRAY [address] | MD [address] | stenosis; Facet | | | | [address] [place] | [place] | arthritis of lumbar | | | | [place] [address] | [id number] | region; Lumbalgia | | | | [phone] | | | +--------+ + + + [...] | | | | | [place] [address] | | | | | | [phone] | | | | | | | | +--------+---------+ + + + | 04/19/ | Office | Pulmonology | Alfonso Wallace MD | | | 2020 | Visit | | [address] | | | | | | [place] | | | | | | [address] | | | | | | | [...] Performed At | + + + | [facility] Diagnostic Imaging | [place] | | Department [address] [facility] | [facility] | | [ rep [address]] [ rep [facility] | | [facility]] Signed | - IMAGING | | | | | Patient Name: KEVIN DAUGHERTY SR | | | Physician: ROBINA : 1950 Age: 62 Sex: M Unit | | | #: [id number] Exam Date: 02/22/13 Location: | | | [facility] Report #: [id number] Page: | | | %(RAD)RES..mtdd.print.filter("pg") of %(RAD) | | | RES..mtdd.print.filter("tpg") | | | | | | Accession Number: [id number] | | | LUMBAR SPINE WITHOUT CONTRAST CLINICAL HISTORY: CHRONIC | | | LOW BACK PAIN WITH RADIATION TO BOTH LEGS. WEAKNESS. | | | COMPARISON: Lumbar spine radiograph dated 12/08/2012 from [facility] | | | [facility]. TECHNIQUE: Multiplanar, | | | [...] Transcribed Date/Time: 02/22/2013 | | | 18:05 Jewel Inspector: <<Signature on | | | File>> | | | Yared | | | Monica Diaz MD02/22/131 <Electronically signed by Yared Anderson | | | Joe ARIAS> Yared Diaz MD 02/22/13 3937 | | | Jewel Inspector: Real Time Translation Wghltlzfcysie71/20/13 2383 | | | Karlos Craig Jr, MD | | + + + + + + + + | Performing | Address | City/State/Zipcode | Phone Number | | Organization | | | | + + + + + | [facility] | [address] | [place] | [phone] | | [facility] | | [address] | | | - IMAGING | | [...]
--- OUTSIDE RECORDS SUMMARY | ~2020-01-14 | XMS | Encounter Summary ---
Demographics + + + | Address | [address] | | | [place] [address] | + + + | Home Phone [...] Author | [facility] | | | and [place] | + + + | Organization | [facility] | | | and [place] | + + + | Address | Unknown | + + + | Phone | Unavailable | + + + Support + + + + + | Name | Relationship | Address | Phone | + + + + + | Palak Trejo Aguilar | ECON | #[place] | | | | | [address] | | + + + + + | Tanika Jean | ECON | Unknown | | + + + + + Care Team Providers + +------+ + | Care Mold Technician Name | Role | Phone | + +------+ + PCP | Unavailable | + +------+ + Encounter Details +--------+ + + + + | Date | Type | Department | Care Team | Description | +--------+ + + + + | 07/19/ | Hospital | [facility] | [place], | | | 2011 | Encounter | MED CTR LABORATORY | Ling Frazier MD | | | | | [address] | | | | | | [place] | | | | | | [address] | | | | | | [phone] | | | +--------+ + + + [...] | 0 | 02/25/20 | | | (HIMANSHU HANDDUARTE) | the lungs Daily. | | | [...] MD | | | | | | [address] | | | | | | [facility] [place] [place] [address] | | | | | | [phone] | | | | | | | | +--------+---------+ + + + | 04/19/ | Office | Pulmonology | Alfonso Wallace MD | | | 2020 | Visit | | [address] | | | | | | [place] | | | | | | [address] | | | | | | | [...] on the Josr | ng/mL | [facility] | | | | [...] + | [facility] | [address] | [place], [place] | [phone] | | [facility] | | [address] | | | - LABORATORY | | | | + + + + + | [facility] | [address] | [place], [place] | | | [facility] | | [address] [place] [address] | | | - LABORATORY | | [...] + | [facility] | [address] | [place] | [phone] | | [facility] | | [address] | | | - LABORATORY | | | | + + + + + | [facility] | [address] | [place] | | | [facility] | | [address] | | | - LABORATORY | | | | + + + + + documented in this encounter Visit Diagnoses Not on filedocumented in this encounter"
--- OUTSIDE RECORDS SUMMARY | ~2020-01-14 | XMS | Encounter Summary ---
Demographics + + + | Address | [address] | | | [place] [address] | + + + | Home Phone [...] #[place] | | | | | [address] | | + + + + + | Tanika Jean | ECON | Unknown | | + + + + + Care Team Providers + +------+ + | Care Chalk Tester Name | Role | Phone | + +------+ + | Nuzhat Orantes MD | PCP | | + +------+ + Reason for Visit +--------+ + | Reason | Comments | +--------+ + | Other | Labs from [facility] 01/05/2020 (LEIDY CALLAHAN).. | +--------+ + Encounter Details +--------+ + + + + | Date | Type | Department | Care Team | Description | +--------+ + + + + | 01/08/ | Documentati | [facility] | Susan Han, | Other (Labs from | 2019 | on | INFECTIOUS DISEASE | Lace Pinner | [facility] | | | | [address] | | 01/05/2020 | | | | [place] | | (SINDY,CMP)..) | | | | [address] | | | | | | [phone] | | | +--------+ + + + [...] documented as of this encounter Progress Notes Susan Han, Lace Pinner - 01/09/2020 9:35 AM PDTLabs from [facility] 05/2019 (CBC,CMP).. RECEIVED: 01/08/2020 Labs were abstracted into [facility] and sent to scan. Lavonne CMAElectronmaura signed by Susan Han Lace Pinner at 01/09/2020 9:58 AM PD Tdocumented in this encounter Plan of Treatment +--------+---------+ + + + | Date | Type | Specialty | Care Team | Description | +--------+---------+ + + + | 01/28/ | Office | Infectious Diseases | Sana Dawson | | 2019 | Visit | | Jazmin Stringer MD | | | | | | [address] | | | | | | [place] [address] | | | | | | [phone] | | | | | | | | +--------+---------+ + + + | 04/19/ | Office | Pulmonology | Alfonso Wallace MD | | | 2020 | Visit | | [address] | | | | | | [place] | | | | | | [address] | | | | | | | [...] + + documented in this encounter Results Comprehensive Metabolic Panel (01/05/2020 1:11 PM PDT) [...] + + | REFERENCE [facility] | [address] [facility] [address] | [place] | [phone] | | [facility] | | [address] | | + + + + + CBC w/ Auto Differential (01/05/2020 1:11 PM [...] + + + | REFERENCE LAB | [facility] | [place] | [phone] | | [facility] | | [address] | | + + + + + documented in this encounter Visit Diagnoses Not [facility] ridgedocumented in this encounter"
--- OUTSIDE RECORDS SUMMARY | ~2020-01-14 | XMS | Encounter Summary ---
Demographics + + + | Address | [address] | | | [place] [address] | + + + | Home Phone [...] | Author | [facility] | | | and [place] | + + + | Organization | [facility] | [...] #[place] | | | | | [address] | | + + + + + | Tanika Jean | ECON | Unknown | | + + + + + Care Team Providers + +------+ + | Care Pediatric Geneticist Name | Role | Phone | + [...] | | | | | [facility] | [place] [address] | | | | | [place] [address] | | | | | | [phone] | | | +--------+ + + + [...] | | | | | [place] [address] | | | | | | [phone] | | | | | | | | +--------+---------+ + + + | 04/19/ | Office | Pulmonology | Alfonso Wallace MD | | | 2020 | Visit | | [address] | | | | | | [place] | | | | | | [phone] | | | | | | | [...] for comparison only - no result from [place]. | [facility] | + + + + +---------+ + + | Performing | Address | City/State/Zipcode | Phone Number | | Organization | | | | + +---------+ + + | [facility] | | | | + +---------+ + + documented in this encounter Visit Diagnoses Not on filedocumented in this encounter"
--- OUTSIDE RECORDS SUMMARY | ~2020-01-14 | XMS | Encounter Summary ---
Demographics + + + | Address | [address] | | | [place] [address] | + + + | Home Phone [...] #[place] | | | | | [address] | | + + + + + | Tanika Jean | ECON | Unknown | | + + + + + Care Team Providers + +------+ + | Care Pharmacy Scheduler Name | Role | Phone | [...] | | | | History of | [address] | [address] | | | | | seizures | [place], | [place], | | | | | | [place] [address] | [place] [address] | | | | | | Phone: | Phone: | | | | | | [phone] | [phone] | | | | | | Fax: | Fax: | | | | | | [phone] | [phone] | +--------+ + + + + + [...] | | | | | Lumbalgia | [address] | | | | | | Tremor | [place], | | | | | | History of | [place] [address] | | | | | | seizures | Phone: | | | | | | | [phone] | | | | | | | Fax: | | | | | | | [phone] | | +--------+ + + + + [...] | weakness | Ling Frazier, | [address] | | | | n | | MD [address] | [place], | | | | | | [address] | [place] [address] | | | | | | [place], | Phone: | | | | | | [place] [address] | [phone] | | | | | | | Fax: | | | | | | | [phone] | +--------+ + + + + + Encounter Details +--------+---------+ + + + | Date | Type | Department | Care Team | Description | +--------+---------+ + + + | 12/08/ | Office | [facility] | Karlos Craig, | Unsteady gait | | 2012 | Visit | MEDICINE | [address] | (Primary Dx); | | | | REHABILITATION [address] | [place] | Lumbalgia; Tremor; | | | | [address] | [address] | History of seizures; | | | | [place] | | COPD (chronic | | | | [address] | | obstructive | | | | [phone] | | pulmonary disease) | | | | | | ([facility]); Tobacco | | | | | | [...] 12/08/2012 3:55 PM PDTMy office will obtain office copy selector ies of your back x-rays for review. Physical therapy has been prescribed. Please participate in physical therapy. If you have not be contacted for an appointment with physical therapy within one week, please contact located within [facility]. Once you have completed physical therapy [...] office note has been dictated. Job ID# [id number] signed by Karlos Craig MD at 12/08/2012 [...] 12:00 AM PDT PHYSICAL MEDICINE AND REHAB [address] [place] [address] FAX: [phone] OFFICE VISIT PHYSICAL MEDICINE REHABILITATION CONSULT CONSULT [...] demonstrated significant intention tremor and ataxia with hjcwuj-jl-omso te sting in both upper extremities. He demonstrated significant discoordination in an effort t o try wvti-ss-afdh slide bilaterally. His gait demonstrated short, shuffling [...] is 5/5 biceps, triceps, wrist dorsiflexion, hand cement railroad car loader strength and f sammie abduction strength. In the lower extremities, there is 5/5 hip flexion, knee flexion, knee extension, ankle dorsiflexion, ankle plantar flexion and extensor hallucis longus str ength. DATABASE: Lumbar x-rays were completed today at [facility]. These x-rays are not available for my [...] ondylolisthesis. Greater than an hour was spent svbr-vz-jwov today with Mr. Aguilar, over half of which was spent formulating and discussing his medical treatment plan. Thank you for allowing me to be involved in the care of your patient. If you have any quest ions regarding the care of Mr. Aguilar, please do not hesitate to call. Karlos Craig Jr, MD GEM / PAP JOB #: [id number] cc: MD Peter Hatfield MD documented in this encounter Miscellaneous Notes Miscellaneous - [facility] - 12/08/2012 12:00 AM PDT iscellaneous - [facility] - 12/08/2012 12:00 AM PDTEle ctronically signed by Helio Coronado at 01/04/2013 1:13 PM PDTdocumented in this encounter Plan of [...] [address] | | | | | | [place] [address] | | | | | | [phone] | | | | | | | | +--------+---------+ + + + | 04/19/ | Office | Pulmonology | Alfonso Wallace MD | | | 2020 | Visit | | [address] | | | | | | [place] | | | | | | [address] | | | | | | | [...] Abnormality of gait | + + | [place] | + + | Tremor Abnormal involuntary [...]
--- OUTSIDE RECORDS SUMMARY | ~2020-01-14 | XMS | Encounter Summary ---
Demographics + + + | Address | [address] | | | [place] [address] | + + + | Home Phone [...] #[place] | | | | | [address] | | + + + + + | Tanika Jean | ECON | Unknown | | + + + + + Care Team Providers + +------+ + | Care Dry Cell Assembly Machine Tender Name | Role | Phone | + +------+ + PCP | Unavailable | + +------+ + Encounter Details +--------+ + + + + | Date | Type | Department | Care Team | Description | +--------+ + + + + | 01/11/ | Abstract | [facility] | Madeleine Connelly | | | 2011 | | [facility] | MD [address] | | | | | PATIENT PLACEMENT [address] | [place] | | | | | [address] [place], | [place] [address] | | | | | [place] [address] | [phone] | | | | | [phone] | | | +--------+ + + + [...] | | | | | [place] [address] | | | | | | [phone] | | | | | | | | +--------+---------+ + + + | 04/19/ | Office | Pulmonology | Alfonso Wallace MD | | | 2020 | Visit | | [address] | | | | | | [place] | | | | | | [address] | | | | | | | | +--------+---------+ + + + documented as of this encounter Visit Diagnoses Not on filedocumented in this encounter"
--- OUTSIDE RECORDS SUMMARY | ~2020-01-14 | XMS | Encounter Summary ---
Demographics + + + | Address | [address] | | | [place] [address] | + + + | Home Phone [...] + + + | Author | [facility] | | | and [place] | + + + | Organization | [facility] | | | and [place] | + + + | Address | Unknown | + + + | Phone | Unavailable | + + + Support + + + + + | Name | Relationship | Address | Phone | + + + + + | Palak Aguilar | ECON | #[place] | | | | | [address] | | + + + + + | Tanika Jean | ECON | Unknown | | + + + + + Care Team Providers + +------+ + | Care Net Software Developer Name | Role | Phone | [...] + + | 09/15/ | Office | [facility] | [place], | Chronic obstructive | | 2015 | Visit | PULMONARY [address] | Ling Frazier MD | pulmonary disease, | | | | [place], | | unspecified COPD | | | | [place] [address] | | type ([facility]) (Primary | | | | [phone] | | Dx); Allergic | | | | | | rhinitis, | | | | | | unspecified allergic | | | | | | rhinitis type; | | | | | | Nocturnal hypoxemia | | | | | | due to emphysema | | | | | | ([facility]); Tobacco abuse | +--------+---------+ + [...] up to see the doctor coming from [facility] to [place]. No medication changes. 3:3 1 PM PDT documented in this encounter Progress Notes Ling Lowe MD - 09/16/2015 2:39 PM PDTFormatting of this note might be differe nt from the original. Pulmonary Follow Up HPI Nazario Gipsonock . is a 65 y.o. male patient of Jose Angel Reina [facility]. At their [...] in the yard. He usually uses an elect alex cart at [facility] when he can. He does cough some of the time, but not all of the time. He is bringing up mucous, which is clear in color. He has been evaluated for nocturnal oxygen and does use it. He is currently on 3 LPM at [facility]. He reports good compliance. Past [...] Chronic obstructive pulmonary disease, unspecified COPD type ([facility]) J44.9 496 He has been more stable [...] made to ensure accuracy; however, inadvertent computerized parent educator errors may be pre sent. documented in [...] | | | | | [place] [address] | | | | | | [phone] | | | | | | | | +--------+---------+ + + + | 04/19/ | Office | Pulmonology | Alfonso Wallace MD | | | 2020 | Visit | | [address] | | | | | | [place] | | | | | | [address] | | | | | | | [...]
--- OUTSIDE RECORDS SUMMARY | ~2020-01-14 | XMS | Encounter Summary ---
Demographics + + + | Address | [address] | | | [place] [address] | + + + | Home Phone [...] #[place] | | | | | [address] | | + + + + + | Tanika Jean | ECON | Unknown | | + + + + + Care Team Providers + +------+ + | Care Dynamicist Name | Role | Phone | + [...] Frazier MD | | | | | [place], | | | | | | [place] [address] | | | | | | [phone] | | | +--------+--------+ + + + [...] [address] | | | | | | [place] [address] | | | | | | [phone] | | | | | | | | +--------+---------+ + + + | 04/19/ | Office | Pulmonology | Alfonso Wallace MD | | | 2020 | Visit | | [address] | | | | | | [place] | | | | | | [id number] | | | | | | | [...]
--- OUTSIDE RECORDS SUMMARY | ~2020-01-14 | XMS | Encounter Summary ---
Demographics + + + | Address | [address] | | | [place] [address] | + + + | Home Phone [...] #[place] | | | | | [address] | | + + + + + | Tanika Jean | ECON | Unknown | | + + + + + Care Team Providers + +------+ + | Care Collection Systems Administrator Name | Role | Phone [...] + + | 06/16/ | Office | [facility] | [place], | Chronic obstructive | | 2015 | Visit | PULMONARY [address] | Ling Frazier MD | pulmonary disease, | | | | [place], | | unspecified COPD | | | | [place] [address] | | type ([facility]) (Primary | | | | [phone] | | Dx); Hypoxemia; | | | [...] original. Pulmonary Follow Up HPI Nazario Doan Aguilar Sr. is a 64 y.o. male patient of Jose Angel Reina MD here [place] for follow up of COPD. At their last visit, we had added a prolonged steroid course to his amoxicillin in addition to the short course of prednisone he had already taken. He continued to get worse, and he e nded up in the hospital at [facility] for his exacerbation. While in the [...] He is currently on 3 LPM at [facility]. He reports good compliance. He was discharged [...] made to ensure accuracy; however, inadvertent computerized real estate broker errors may be pre sent. documented in [...] | | | | | [place] [address] | | | | | | [phone] | | | | | | | | +--------+---------+ + + + | 04/19/ | Office | Pulmonology | Alfonso Wallace MD | | | 2020 | Visit | | [address] | | | | | | [place] | | | | | | [phone] | | | | | | | [...]
--- OUTSIDE RECORDS SUMMARY | ~2020-01-14 | XMS | Encounter Summary ---
Demographics + + + | Address | [address] | | | [place] [address] | + + + | Home Phone [...] #[place] | | | | | [address] | | + + + + + | Tanika Jean | ECON | Unknown | | + + + + + Care Team Providers + +------+ + | Care Case Maker Name | Role | Phone | [...] | | | | [facility] [facility] | [place] [address] | | | | | [place] [address] | | | | | | [phone] | | | +--------+ + + + [...] | | | | | [place] [address] | | | | | | [phone] | | | | | | | | +--------+---------+ + + + | 04/19/ | Office | Pulmonology | Alfonso Wallace MD | | | 2020 | Visit | | [address] | | | | | | [place] | | | | | | [phone] | | | | | | | [...] + documented in this encounter Results XR Knee Left 1 - 2 Vw (01/20/2017 8:20 PM PDT) + + | Specimen | + + | | + + + + + | Narrative | Performed At | + + + | External films for comparison only - no result from [place]. | [facility] | + + + + +---------+ + + | Performing | Address | City/State/Zipcode | Phone Number | | Organization | | | | + +---------+ + + | [facility] | | | | + +---------+ + + documented in this encounter Visit Diagnoses Not on filedocumented in this encounter"
--- OUTSIDE RECORDS SUMMARY | ~2020-01-14 | XMS | Encounter Summary ---
Demographics + + + | Address | [address] | | | [place] [address] | + + + | Home Phone [...] #[place] | | | | | [address] | | + + + + + | Tanika Jean | ECON | Unknown | | + + + + + Care Team Providers + +------+ + | Care Saw Cleaner Name | Role | Phone | [...] Frazier MD | | | | | [place], | | | | | | [place] [address] | | | | | | [phone] | | | +--------+--------+ + + + [...] | | | | | [place] [address] | | | | | | [phone] | | | | | | | | +--------+---------+ + + + | 04/19/ | Office | Pulmonology | Alfonso Wallace MD | | | 2020 | Visit | | [address] | | | | | | [place] | | | | | | [phone] | | | | | | | [...]
--- OUTSIDE RECORDS SUMMARY | ~2020-01-14 | XMS | Encounter Summary ---
Demographics + + + | Address | [address] | | | [place] [address] | + + + | Home Phone [...] #[place] | | | | | [address] | | + + + + + | Tanika Jean | ECON | Unknown | | + + + + + Care Team Providers + +------+ + | Care Team Driver Name | Role | Phone | [...] facet | [address] | | | | | arthropathy | [address] | [place], | | | | | Lumbalgia | [place], | [place] | | | | | [place] | [place] [address] | [address] | | | | | | Phone: | Phone: | | | | | | [phone] | [phone] | | | | | | Fax: | Fax: | | | | | | [phone] | [phone] | +--------+ + + + + + Reason for Visit + + + | Reason | Comments | + + + | Back Pain | no pain at this time | + + + Encounter Details +--------+---------+ + + + | Date | Type | Department | Care Team | Description | +--------+---------+ + + + | 04/27/ | Office | [facility] | Karlos Craig, | Lumbar facet | | 2013 | Visit | MEDICINE | [address] | arthropathy (Primary | | | | REHABIL[address] | [place], [place] | Dx); Lumbalgia; | | | | [address] | [address] | Ataxia; Right | | | | [place], [place] | | shoulder pain | | | | [address] | | | | | | [phone] | | | +--------+---------+ + + + [...] physical therapy within one week, please contact [facility]. Once you have completed physical therapy please continue the home exercise progr am as outline by physical therapy, indefinitely. Resume the home exercises as outlined by physical therapy. Please be seen at [facility] regarding you ataxia. We may consider repeat injections in the future for pain control, up to 3-4 times per year. Return to the clinic in 2-3 months.Electronically signed by Karlos Craig MD at 4 1:43 PM PST documented in this encounter Progress Notes Karlos Craig MD - 04/27/2013 1:45 PM PSTThis office note has been dictated. Job ID# [id number] signed by Karlos Craig MD at 04/27/2013 2:15 PM PSTArleen Kern RN - 04/27/2013 1:07 PM PSTPatient in clinic for follow up after injection, no pain at t his time. Karlos Berumen MD - 04/27/2013 12:00 AM [facility] PHYSICAL MEDICINE AND REHAB [address] [place] [address] FAX: [phone] OFFICE VISIT CONSULT REQUESTED BY: Ling Lowe [...] Therapy. He still not been seen at [facility] as recommended by a neurologist, [...] noted during gait as well as with dfuqol-cm-sx se testing in upper extremities. Speech is [...] back pain. Approximately 25 minutes was spent mqds-st-ymnp today with Mr. Aguilar, over half of which was spent formulating and discussing his medical treatment plan. Thank you for allowing me to be involved in the care of your the patient. If you have any questions regarding the care of Mr. Aguilar, please do not hesitate to call. Karlos Craig Jr, MD PURVI / CLEOPATRA JOB #: [id number] cc: Peter Reina MD documented in this [...] | | | | | [place] [address] | | | | | | [phone] | | | | | | | | +--------+---------+ + + + | 04/19/ | Office | Pulmonology | Alfonso Wallace MD | | | 2020 | Visit | | [address] | | | | | | [place] | | | | | | [address] | | | | | | | [...]
--- OUTSIDE RECORDS SUMMARY | ~2020-01-14 | XMS | Encounter Summary ---
Demographics + + + | Address | [address] | | | [place] [address] | + + + | Home Phone [...] #[place] | | | | | [address] | | + + + + + | Tanika Jean | ECON | Unknown | | + + + + + Care Team Providers + +------+ + | Care Food Inspector Name | Role | Phone | [...] + + | 02/16/ | Office | [facility] PHYSICAL | Karlos Craig, | Lumbar spinal | | 2012 | Visit | MEDICINE | MD [address] | stenosis (Primary | | | | REH[address] | [place] | Dx); Lumbar facet | | | | [address] | [address] | arthropathy; | | | | [place] | | Lumbalgia; [place] | | | | [address] | | | | | | [phone] | | | +--------+---------+ + + + [...] supplied today. Take it to your preferred [employer] supply store. A consult at [facility] was been requested by Dr. Williamson, [...] office note has been dictated. Job ID# [id number] signed by Karlos Craig MD at 02/16/2013 3:30 PM Arleen Lo RN - 02/16/2013 1:49 PM PSTPatient states he has intermittent pain to bilateral legs and lower back. Karlos Berumen MD - 02/16/2013 12:00 AM [facility] PHYSICAL MEDICINE AND REHAB [address] [place] [address] FAX: [phone] OFFICE VISIT PHYSICAL MEDICINE REHABILITATION PROGRESS NOTE [...] a consult in the neurology department at [facility]. This i s still pending. When [...] of the MRI. A consult request with [facility] was replaced today so that he can have an appointment with them to evaluate and treat his ataxi a potentially. He was instructed to continue home exercise program as outlined by physical therapy on a daily basis indefinitely. Approximately 30 minutes was spent ikva-rs-sjvw today with Mr. Aguilar over half of which w as spent formulating and discussing his medical treatment plan. Thank you for allowing me t o be involved in the care of your patient. If you have any questions regarding the care of Mr. Aguilar please do not hesitate to call. Karlos Craig Jr, MD GEM / SB JOB #: [id number] cc: Peter Reina MD documented in this encounter Miscellaneous Notes Miscellaneous - [facility] - 02/16/2013 12:00 AM PST documented in this encounter Plan of Treatment +--------+---------+ + + + | Date | Type | Specialty | Care Team | Description | +--------+---------+ + + + | 01/28/ | Office | Infectious Diseases | Sana Dawson | | | 2019 | Visit | | Jazmin Stringer MD | | | | | | [address] | | | | | | [facility] [place] [address] | | | | | | [phone] | | | | | | | | +--------+---------+ + + + | 04/19/ | Office | Pulmonology | Alfonso Wallace MD | | | 2020 | Visit | | [address] | | | | | | [place] | | | | | | [address] | | | | | | | [...]
--- OUTSIDE RECORDS SUMMARY | ~2020-01-14 | XMS | Encounter Summary ---
Demographics + + + | Address | [address] | | | [place] [address] | + + + | Home Phone | | + + + | Preferred Language | Unknown | + + + | Marital Status | | + + + | Synagogue Affiliation | 1061 | + + + [...] #[id number] | | | | | [address] | | + + + + + | Tanika Jean | ECON | Unknown | | + + + + + Care Team Providers + +------+ + | Care Engine Service Repairer Name | Role | Phone | [...] Frazier MD | | | | | [place], | | | | | | [place] [address] | | | | | | [phone] | | | +--------+--------+ + + + [...] [address] | | | | | | [place] [address] | | | | | | [phone] | | | | | | | | +--------+---------+ + + + | 04/19/ | Office | Pulmonology | Alfonso Wallace MD | | | 2020 | Visit | | [address] | | | | | | [place] | | | | | | [id number] | | | | | | | [...]
--- OUTSIDE RECORDS SUMMARY | ~2020-01-14 | XMS | Encounter Summary ---
Demographics + + + | Address | [address] | | | [place] [address] | + + + | Home Phone [...] | [facility] | | | and [place] | + + + | Organization | [facility] | | | and [place] | + + + | Address | Unknown | + + + | Phone | Unavailable | + + + Support + + + + + | Name | Relationship | Address | Phone | + + + + + | Palak Trejo Aguilar | ECON | #[place] | | | | | [address] | | + + + + + | Tanika Jean | ECON | Unknown | | + + + + + Care Team Providers + +------+ + | Care Securities Counselor Name | Role | Phone | + +------+ + PCP | Unavailable | + +------+ + Encounter Details +--------+ + + + + | Date | Type | Department | Care Team | Description | +--------+ + + + + | 01/19/ | Hospital | [facility] | | | | 2000 | Encounter | MED CTR GENERIC OP | | | | | | CONV DEPT [address] | | | | | | [place], | | | | | | [place] [address] | | | | | | [phone] | | | +--------+ + + + [...] | | | | | [place] [address] | | | | | | [phone] | | | | | | | | +--------+---------+ + + + | 04/19/ | Office | Pulmonology | Alfonso Wallace MD | | | 2020 | Visit | | [address] | | | | | | [place] | | | | | | [address] | | | | | | | | +--------+---------+ + + + documented as of this encounter Visit Diagnoses Not on filedocumented in this encounter"
--- OUTSIDE RECORDS SUMMARY | ~2020-01-14 | XMS | Encounter Summary ---
Demographics + + + | Address | [address] | | | [place] [address] | + + + | Home Phone [...] #[place] | | | | | [address] | | + + + + + | Tanika Jean | ECON | Unknown | | + + + + + Care Team Providers + +------+ + | Care Core Rescuer Name | Role | Phone | + [...] + + | 01/21/ | Office | [facility] | Offenstein, | COPD (chronic | | 2014 | Visit | PULMONARY [address] | Ling Frazier MD | obstructive | | | | [place], | | pulmonary disease); | | | | [place] [address] | | Nocturnal hypoxemia | | | | [phone] | | due to emphysema | | | | | | ([facility]); Tobacco | | | | | | [...] a month ago and was seen at [facility], but it sounds like this was [...] He is currently on 3 LPM at [facility]. He reports good compliance. He does [...] tablet Take 81 mg by mouth Daily. zesdsxa-zgvdnfuhdhmfm-ymbzhkwh (HEADACHE RELIEF) 250-250-65 MG per tablet Take [...] made to ensure accuracy; however, inadvertent computerized leadlighter errors may be pre sent. documented in [...] | | | | | | [place] [address] | | | | | | [phone] | | | | | | | | +--------+---------+ + + + | 04/19/ | Office | Pulmonology | Alfonso Wallace MD | | | 2020 | Visit | | [address] | | | | | | [place] | | | | | | [address] | | | | | | | [...]
--- OUTSIDE RECORDS SUMMARY | ~2020-01-14 | XMS | Encounter Summary ---
Demographics + + + | Address | [address] | | | [place] [address] | + + + | Home Phone [...] #[place] | | | | | [address] | | + + + + + | Tanika Jean | ECON | Unknown | | + + + + + Care Team Providers + +------+ + | Care Agricultural Economist Name | Role | Phone | + [...] | | | | presenting | | [facility] | | | | hazards to | | [address] Phone: | | | | | health | | [phone] | | | | | Centrilobula | | Fax: | | | | | r emphysema | | [phone] | | | | | ([facility]) | | | | | | | Procedures | | | | | | | BRONCHOSCOPY | | | | | | | | | | | | | | ELECTROMAGNE | | | | | | | TIC | | | | | | | NAVIGATION | | | | | | | [[id number]] | | | +--------+--------+ + + + + Encounter Details +--------+---------+ + + + | Date | Type | Department | Care Team | Description | +--------+---------+ + + + | 08/14/ | Surgery | [facility] | Alfonso Wallace MD | BRONCHOSCOPY | | 2020 | | [facility] MP | [address] | ELECTROMAGNETIC | | | | INTRA OP [address] | [place], [place] | NAVIGATION | | | | [place], [place] | [address] | | | | | [address] | | | | | | [phone] | | | +--------+---------+ + + + [...] + + + | Blood Pressure | 105/61 | 08/15/2019 6:33 AM | | | | | PDT | | + + + + + | Pulse | 99 | 08/15/2019 6:33 AM | | | | | PDT | | + + + + + | Temperature | 36.4 C (97.5 F) | 08/15/2019 6:33 AM | | | | | PDT | | + + + + + | Respiratory Rate | 20 | 08/15/2019 6:33 AM | | | | | PDT | | + + + + + | Oxygen Saturation | 96% | 08/15/2019 6:33 AM | | | [...] Wallace MD - 08/15/2019 7:24 AM PDT [facility] Service: Pulmonology Pre-Operative History & Physical DIAGNOSIS: [...] Surgical History: Procedure Laterality Date CHOLECYSTECTOMY COLONOSCOPY 2015 dysplastic polyps, Dr. Che [...] file Gets together: Not on file Attends religion service: Not on file Active member of [...] PDTPatient Instruction s After Bronchoscopy Patient: Kevin Aguilar Procedure Date: Thursday, August 15, 2019 Attending [...] | | | | | [place] [address] | | | | | | [phone] | | | | | | | [...] | + +--------+ + + + | CLEOPATRABJESSE ONLY | Routin | 08/15/2019 | | [...] section. | + +--------+ +---+ + | [facility]CL | Routin | 08/15/2019 | [...] present. | | | Signed by: Jam Villafana Richard Sign Date/Time: | | | 08/15/2019 9:52 [...] + + | Performing | Address | City/State/[facility] | Phone Number | | [...] | Other | NAIDNComment: No | | [facility] | | | | additional | | LABORATORY | | | | identification testing | | | | | | is necessary.Testing | | | | | | performed at [facility], | | | | | | [address] [address], | | | | | | [facility] [address] | | | | + + + + + + + + | Specimen | + + | | + + + + + + + | Performing | Address | City/State/Zipcode | Phone Number | | Organization | | | | + + + + + | [facility] | [address] | [place] [address] | [phone] | + + + + + CULTURE, FUNGUS (REFLEX RESULTS ONLY) (08/15/2019 8:46 AM PDT) + + + + + + | Component | Value | Ref Range | Performed | Pathologist | | | | | At | Signature | + + + + + + | Result 1 | Michelle | | [facility] | | | | parapsilosisComment: | | LABORATORY | | | | Light growthTesting | | | | | | performed by [facility], | | | | | | [address], | | | | | | [facility] [address] | | | | + + + + + + + + | Specimen | + + | | + + + + + + + | Performing | Address | City/State/Zipcode | Phone Number | | Organization | | | | + + + + + | [facility] | [address] | [place] [address] | [phone] | + + + + + Lynne, CHRISTOPHER Smear (08/15/2019 8:46 AM PDT) + + + + + + | Component | Value | Ref Range | Performed | Pathologist | | | | | At | Signature | + + + + + + | SOURCE: | BRONCHIAL LAVAGEComment: | | [place] | | | | Testing performed at | | LABORATORY | | | | [facility], [address] | | | | | | [place] | | | | | | [address] | | | | + + + [...] | | | | | performed at [facility], | | | | | | [address], | | | | | | [facility] [address] | | | | + + + + + + + + | Specimen | + + | | + + + + + + + | Performing | Address | City/State/Zipcode | Phone Number | | Organization | | | | + + + + + | [facility] | [address] | [place] [address] | [phone] | + + + + + Jesse [...] | | KR | | | | [facility], [address] | | LABORATORY | | | | Bl, [place] | | | | | | [address]Hlllbpb: Testing | | | | | | performed at [facility], [address] | | | | [address], | | | | | | [place] [address] | | | | + + + + + + + + | Specimen | + + | | + + + + + + + | Performing | Address | City/State/Zipcode | Phone Number | | Organization | | | | + + + + + | [facility] | [address] | [place] [address] | [phone] | + + + + + CHRISTOPHER Prep (08/15/2019 8:46 AM PDT) + + + + + + | Component | Value | Ref Range | Performed | Pathologist | | | | | At | Signature | + + + + + + | RESULT | NO YEAST OR FUNGAL | | [facility] | | | | ELEMENTS SEEN | | LABORATORY | | + + + + + + | RESULT | Testing performed at | | [facility] | | | | [facility], [address] [facility] | | LABORATORY | | | | [place] | | | | | | [address]Wskwnju: Testing | | | | | | performed at [facility], [address] | | | | | | [facility] [address], | | | | | | [place] [address] | | | | + + + + + + + + | Specimen | + + | | + + + + + + + | Performing | Address | City/State/Zipcode | Phone Number | | Organization | | | | + + + + + | [facility] | [address] | [place] [address] | [phone] | + + + + + Giovana [...] LABORATORY | | | | performed at [facility];[address] | | | | | | [address];[place], [place] | | | | | | [address] | | | | + + + + + + | Fungus | Final reportComment: | | [facility] | | | (Mycology) | Testing performed by | | LABORATORY | | | Culture | [facility], [address] [place] [address] | | | | | | [facility] | | | | | | [address] | | | | | | [...] | + + + + + | [facility] | [address] | [place] [address] | [phone] | + + + + + Culture, [...] [place] | | | | | | [address] | | | | + + + [...] at | | | | | | [facility], [address] | | | | | | [place] | | | | | | [address] | | | | + + + + + + + + | Specimen | + + | | + + + + + + + | Performing | Address | City/State/Zipcode | Phone Number | | Organization | | | | + + + + + | [facility] | [address] | [place] [address] | [phone] | + + + + + Medical Cytology (08/15/2019 8:46 AM PDT) + + | Specimen | + + | Tissue - | | Bronchoscope, device | | (physical object) | + + + + + | Narrative | Performed At | + + + | ORDERING | [place] [facility] | | PHYSICIAN:Alfonso Wallace MD PATIENT NAME:DAT KEVIN DONOVAN | [place] | | PEPEGENDER: Brennan : 1950 SPECIMEN(S): [...] with thepatient's concurrent biopsies | | | ([id number]).AMB:emb PERFORMING LABORATORY:The technical component was | | | performed by [facility], [address] [place] [address] | | | [place] [address] (Chain Maker Hand: Ramses Purdy D.O.; CLIA#: | | | [id number]).Professional interpretation was performed by [facility] | | | [facility], [address], | | | [place] [address] (Chain Maker Hand: Yoandy Kirkland M.D.; CLIA#: | | | [id number]). Diagnostician: Yoel SLAUGHTER | | | ([facility])CytotechnologistDiagnostician: Nata Amin Backer | | [...] with the | | |patient's concurrent biopsies ([id number]). | | |AMB:emb | | | | | |PERFORMING LABORATORY: | | |The technical component was performed by [facility], [address] [place] [address] [place] [address] (Chain Maker Hand: Ramses Purdy D.O.; CLIA#: [id number]). | | |[facility], [address] [place] [address] (Chain Maker Hand: Yoandy Kirkland M.D.; CLIA#: [id number]). | | | | | |Diagnostician: Yoel SLAUGHTER ([facility]) | | |Celery Packer | | |Diagnostician: Nata Gallego MD | [...] | | with the patient's concurrent cytology ([id number]). AMB:emb:C2NR | | | MICROSCOPIC EXAMINATION:Histologic sections of all submitted blocks | | | are examined by light microscopy. These findings, together with the | | | gross examination, support the pathologic diagnosis. GROSS | | | DESCRIPTION:The specimen, labeled "Kevin Aguilar, right upper lobe | | | biopsy," [...] | | technical component was performed by [facility], [address] [place] [address] | | [place] [address] (Chain Maker Hand: Nata Gallego MD; CLIA# | | | [id number]). Professional interpretation was performed [facility] | | | [facility], [address], | | | [place] [address] (Chain Maker Hand: Yoandy Kirkland M.D.; CLIA#: | | | [id number]). Diagnostician: Nata Gallego | | | MDPathologistElectronically Signed 08/16/2019 | | | | | |PERFORMING LABORATORY: | | |The technical component was performed by [facility], [address] [place] [address] (Chain Maker Hand: Nata Gallego MD; CLIA# [id number]). Professional interpretation was performed by | | |[facility], [address] [address] (Chain Maker Hand: Yoandy Kirkland M.D.; CLIA#: [id number]). | | | | | |Diagnostician: Nata [...] + | Singh | MARK | | [facility] | PROVATION | | CenterPulmonology | | | Patient Name: Kevin Aguilar | | | Procedure Date: 08/15/2019 6:55 AMMRN: [id number] | | | Date of : 1950Note [...] | | | navigation bronchoscopy utilizing the Euro [employer] Heat Drive system | | | was performed. [...] On: | | | 08/15/2019 6:55 AM [facility] - Endoscopy | | | Department | | |This report has been signed electronically. | | |Number of Addenda: 0 | | | | | |Note Initiated On: 08/15/2019 6:55 AM | | | | | | [facility] - Endoscopy Department | | + + + + +---------+ + + | Performing | Address | City/State/[facility]ode | Phone Number | | [...] [facility] | | | | performed at [facility];[address] | | LABORATORY | | | | [address];[place] | | | | | | [address] | | | | + + + + + + + + | Specimen | + + | Blood | + + + + + + + | Performing | Address | City/State/Zipcode | Phone Number | | Organization | | | | + + + + + | [facility] | [address] | [place] [address] | [phone] | + + + + + Basic [...] | | | | | | MDRD IDNV traceable | | | | | | equation.Testing | | | | | | performed at [facility];[address] | | | | | | [facility];[place], [place] | | | | | | [address] | | | | + + + + + + + + | Specimen | + + | Blood | + + + + + + + | Performing | Address | City/State/Zipcode | Phone Number | | Organization | | | | + + + + + | [facility] | [address] | [place] [address] | [phone] | + + + + + documented [...] One week or | | | longer, ibmfid-jvv-jivnt use of | | | at least [...] scheduled: AC, NPO, Daytime | | | 5448-3989 Use NIGHT DOSE for | | | doses scheduled: HS, 3AM, | | | Nighttime 2588-1325 If the BG is | | | [...]
--- OUTSIDE RECORDS SUMMARY | ~2020-01-14 | XMS | Encounter Summary ---
Demographics + + + | Address | [address] | | | [place] [address] | + + + | Home Phone [...] #[place] | | | | | [address] | | + + + + + | Tanika Jean | ECON | Unknown | | + + + + + Care Team Providers + +------+ + | Care Staff Services Manager Name | Role | Phone [...] | | | | | [facility] [facility] | [place] [address] | | | | | [place] [address] | | | | | | [phone] | | | +--------+ + + + [...] | | | | | [place] [address] | | | | | | [phone] | | | | | | | | +--------+---------+ + + + | 04/19/ | Office | Pulmonology | Alfonso Wallace MD | | | 2020 | Visit | | [address] | | | | | | [place] | | | | | | [id number] | | | | | | | [...] for comparison only - no result from [place]. | [facility] | + + + + +---------+ + + | Performing | Address | City/State/Zipcode | Phone Number | | Organization | | | | + +---------+ + + | [facility] | | | | + +---------+ + + documented in this encounter Visit Diagnoses Not on filedocumented in this encounter"
--- OUTSIDE RECORDS SUMMARY | ~2020-01-14 | XMS | Encounter Summary ---
Demographics + + + | Address | [address] | | | [place] [address] | + + + | Home Phone [...] #[place] | | | | | [address] | | + + + + + | Tanika Jean | ECON | Unknown | | + + + + + Care Team Providers + +------+ + | Care Digital Media Planner Name | Role | Phone | [...] | | [facility] [facility] | [place] [address] | | | | | [place] [address] | | | | | | [phone] | | | +--------+ + + + [...] | | | | | [place] [address] | | | | | | [phone] | | | | | | | | +--------+---------+ + + + | 04/19/ | Office | Pulmonology | Alfonso Wallace MD | | | 2020 | Visit | | [address] | | | | | | [place] | | | | | | [id number] | | | | | | | [...] for comparison only - no result from [place]. | [facility] | + + + + +---------+ + + | Performing | Address | City/State/Zipcode | Phone Number | | Organization | | | | + +---------+ + + | [facility] | | | | + +---------+ + + documented in this encounter Visit Diagnoses Not on filedocumented in this encounter"
--- OUTSIDE RECORDS SUMMARY | ~2020-01-14 | XMS | Encounter Summary ---
Demographics + + + | Address | [address] | | | [place] [address] | + + + | Home Phone [...] #[place] | | | | | [address] | | + + + + + | Tanika Jean | ECON | Unknown | | + + + + + Care Team Providers + +------+ + | Care Chief Electrician Name | Role | Phone | [...] + + | 07/11/ | Office | [facility] | Karlos Fonseca, | Right shoulder pain | | 2015 | Visit | PHYSIATRY [address] | MD [address] | (Primary Dx); | | | | [address] | [place], [place] | Rotator cuff tear | | | | [place], [place] | [address] | arthropathy of right | | | | [address] | | shoulder; Erectile | | | | [phone] | | dysfunction, | | | | [...] Fonseca MD - 07/11/2014 1:48 PM PDT [facility] [address] [facility] [id number] OFFICE NOTE KARLOS FONSECA JR, MD Patient: KEVIN DAUGHERTY Admitting: MR #: [id number] LOC: PT TYPE: Adm Date: 07/11/2014 : [...] ALLERGIES: LEVOFLOXACIN and CHANTIX. CURRENT MEDICATIONS: Albuterol. Jgixwbo-xrgucgojhokox-xaucbclg 1 tablet every 6 hours as needed. [...] that diabetes may contribute towards erectile dysfunction. Annie romero discussed that he is at significant cardiovascular [...] 07/11/2014 13:48:33 Transcribed on 07/11/2014 14:16:43 by [facility] job# [id number] Confirmation #: [id number] cc: LYN FIELDS MD 3:2 0 PM PDTMarshKarlos MD - 07/11/2014 1:38 PM PDTThis office note has been dictated. Job ID# [id number] rleen Kern RN - 07/11/2014 1:09 PM PDTPatient states [...] | 2019 | Visit | | Jazmin Srtinger MD | | | | | | [address] | | | | | | [place] [address] | | | | | | [phone] | | | | | | | | +--------+---------+ + + + | 04/19/ | Office | Pulmonology | Alfonso Wallace MD | | | 2020 | Visit | | [address] | | | | | | [place] | | | | | | [address] | | | | | | | [...]
--- OUTSIDE RECORDS SUMMARY | ~2020-01-14 | XMS | Encounter Summary ---
Demographics + + + | Address | [address] | | | [place] [address] | + + + | Home Phone [...] #[id number] | | | | | [address] | | + + + + + | Tanika Jean | ECON | Unknown | | + + + + + Care Team Providers + +------+ + | Care Clinical Therapist Name | Role | Phone | + +------+ + | Nuzhat Orantes MD | PCP | | + +------+ + Reason for Visit + + + | Reason | Comments | + + + | Establish Care | MICHELLE | + + + Evaluate & Treat (Routine) + + + + + + + | Status | Reason | Specialty | Diagnoses / | Referred By | Referred To | | | | | Procedures | Contact | Contact | + + + + + + + | Authorized | Specialty | Infectious | Diagnoses | [place], | [place] | | | Services | Diseases | | MD Alfonso | Infectious | | | Required | | Mycobacteria | [address] | | | | | l infection, | [address] | [address] | | | | | non-TB | [place] | [place], [place] | | | | | | [place], [place] | [address] | | | | | | [address] | Phone: | | | | | | Phone: | [phone] | | | | | | [phone] | Fax: | | | | | | Fax: | [phone] | | | | | | [phone] | | + + + + + + + Encounter Details +--------+---------+ + + + | Date | Type | Department | Care Team | Description | +--------+---------+ + + + | 12/24/ | Office | [facility] | Sana Dawson | 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 | Visit | INFECTIOUS DISEASE | Jazmin Stringer MD | complex (HCC) | | | | [address] | [address] | (Primary Dx); | | | | [place], [place] | [place] [address] | Chronic obstructive | | | | [address] | [phone] | pulmonary disease, | | | | [phone] | | unspecified COPD | | | | | | type (HCC) | +--------+---------+ + + + Social [...] in this encounter Patient Instructions Patient Instructions Sana Dawson MD - 12/25/2019 2:20 PM PDTStart rifampi n (it can make your urine red); ethambutol; azithromycin Call if you have symptoms Make an appointment withy eye doctor (one of the new medicines can affect your eyes) Follow up in 1 month or soonerElectronically signed by Sana Dawson MD at 2:50 PM PDT documented in this encounter Progress Notes Sana Dawson MD - 12/25/2019 2:20 PM PDTFormatting of this note might be d ifferent from the original. [facility] Service: Infectious Diseases Outpatient Initial Consult Note Reason for Consult MAC CHIEF COMPLAINT Cough HISTORY OF PRESENT ILLNESS The patient is a 69 y.o.-year-old male with significant PMH of COPD seen in consultation fo r MAC treatment. Patient is being followed by Dr. Hernandez from pulmonology. Review of his jaimee rt shows that he has a history of cerebellar ataxia and emphysema. He recently had lung can cer screening which showed a right upper lobe cavitary mass and underwent BAL in August that sh owed AFB positive samples for MAC. Biopsy was negative for malignancy and a PET scan was al so done He is a current smoker with chronic cough, mostly at night. He also has been using oxygen 2 to 3 L/min daily as well as his other inhalers. He has some sputum but denies any hemopty sis. His weight is stable and has great appetite. His states that his coughing is wor se at night. He continues to struggle with smoking cessation. He smokes from 1-1/2 to 2 packs/day. He was allergic to Chantix and given his history of seizures, bupropion is a contraindication. Infectious Disease (ID) consult requested for further evaluation and management. PAST MEDICAL HISTORY Past Medical History: Diagnosis Date Asthma Ataxia [...] Alfonso Wallace MD; Location: [facility] PROCEDURE [facility] CHOLECYSTECTOMY COLONOSCOPY 2014 dysplastic polyps, Dr. Che [...] file Gets together: Not on file Attends alevism service: Not on file Active member of [...] Mother Arthritis Mother Stroke Father Cancer Brother Current Outpatient Medications Medication Sig Dispense Refill acetaminophen (TYLENOL) 650 MG CR tablet Take 1,300 mg by mouth Daily. albuterol-ipratropium (DUONEB) 2.5-0.5 mg/3 mL SOLN Inhale 3 mLs into the lungs Every 4 hours. aspirin 325 mg tablet Take 325 mg by mouth Daily. BREO ELLIPTA 100-25 MCG/INH inhaler INHALE 1 PUFF BY MOUTH ONCE DAILY carBAMazepine (EPITOL) 200 mg tablet Take 200 [...] needed for Wheezing. No current facility-administered medications for this visit. ALLERGIES Allergies Allergen Reactions Levofloxacin Itching Varenicline Other (See Comments) Dizziness REVIEW OF SYSTEMS NEG as above PHYSICAL EXAM Vital Signs: There were no vitals taken for this visit. General Appearance: Alert, cooperative, no distress; on home O2 Head: Normocephalic, without obvious abnormality, atraumatic. Lips, mucosa, and tongue normal; dentition normal; no thrush present. Eyes: PERRL, conjunctiva/corneas clear, EOM's intact. Throat: Oropharynx without exudates. Neck: Supple, symmetrical, trachea midline, no adenopathy; thyroid: no enlargement/tenderness/nodules; no carotid bruit or JVD Back: Symmetric, no curvature, ROM normal, no CVA tenderness Lungs: Clear to auscultation bilaterally, respirations unlabored Chest Wall: No tenderness or deformity Heart: Regular rate and rhythm, S1 and S2 normal,no rub or gallop Abdomen: Soft, non-tender, bowel sounds active all four quadrants, no masses, no organomegaly Extremities: Extremities normal, atraumatic, no cyanosis or edema Pulses: 2+ and symmetric all extremities Skin: Skin color, texture, turgor normal, no rashes or lesions Lymph nodes: Cervical, supraclavicular, and axillary nodes normal Neurologic: normal without focal findings, mental status, speech normal, alert and oriented x3 and JOSE MANUEL; speech is slow REVIEW OF LABS/Imaging: Impression Summary of Target Lesions: *Large irregular shaped cavitary lesion in right upper lobe measuring 8.3 x 3.3 cm with hypermetabolic activity, maximum SUV 9.8, similar to CT dated 11/29/2019. The lesion is decreased in size as compared to CT dated 08/07/2019. Interval decrease in wall thickness and decrease in air-fluid level as compared to CT dated 08/07/2019. *Small lower right paratracheal and right hilar lymph nodes with mild hypermetabolic activity, nonspecific, similar to CT dated 08/07/2019. Other PET/CT Findings: *COPD with pulmonary emphysema. *Moderate coronary artery atherosclerosis. *Small infrarenal abdominal aortic aneurysm measuring 2.9 x 2.8 cm. Recommend attention on follow-up imaging with ultrasound in 5 years. *Incidental findings as detailed above. Comments: *Large irregular shaped cavitary lesion in right upper lobe measuring 8.3 x 3.3 cm with hypermetabolic activity, similar to CT dated 11/29/2019. The lesion is decreased in size as compared to CT dated 08/07/2019. Interval decrease in wall thickness and decrease in air-fluid level as compared to CT dated 08/07/2019. The lesion could be infective/inflammatory related to known history of mycobacterium avium infection or fungal infection. Neoplastic lesion cannot be excluded. *Small lower right paratracheal and right hilar lymph nodes with mild hypermetabolic activity are nonspecific, likely reactive. Metastatic disease cannot be excluded. Impression Thick-walled cavitary lesion in the right upper lobe is essentially unchanged in size with a slight increase in the degree of cavitation/decrease in soft tissue component, possibly reflecting treatment response. AFB ID by DNA Probe Order: [id number] Status: Final result Visible to patient: No (not released) Next appt: 04/19/2020 at 11:30 AM in Pulmonology (Alfonso Wallace MD) Component 4mo ago M. tuberculosis DNA Negative M. avium Complex, DNA Probe PositiveAbnormal M. kansasii Not Indicated M. gordonae Negative CULTURE, FUNGUS (REFLEX RESULTS ONLY) Order: [id number] Status: Final result Visible to patient: No (not released) Next appt: 04/19/2020 at 11:30 AM in Pulmonology (Alfonso Wallace MD) Component 4mo ago Result 1 Michelle parapsilosis Comment: Light growth Culture, AFB Smear Order: [id number] Status: Final result Visible to patient: No (not released) Next appt: 04/19/2020 at 11:30 AM in Pulmonology (Alfonso Wallace MD) Component 4mo ago SOURCE: BRONCHIAL LAVAGE Comment: Testing performed at [facility], [address] [place] [address] AFB Specimen Processing Concentration AFB Smear Result Negative AFB CULTURE PositiveAbnormal AFB, Smear Only Order: [id number] Status: Final result Visible to patient: No (not released) Next appt: 04/19/2020 at 11:30 AM in Pulmonology (Alfonso Wallace MD) Component 4mo ago RESULT NO ACID FAST BACILLI SEEN CHRISTOPHER Prep Order: [id number] Status: Final result Visible to patient: No (not released) Next appt: 04/19/2020 at 11:30 AM in Pulmonology (Alfonso Wallace MD) Component 4mo ago RESULT NO YEAST OR FUNGAL ELEMENTS SEEN Contains abnormal data Culture, Quant Order: [id number] Status: Final result Visible to patient: No (not released) Next appt: 04/19/2020 at 11:30 AM in Pulmonology (Alfonso Wallace MD) Component 4mo ago Gram Stain Result WBC'S SEEN Gram Stain Result NO EPITHELIAL CELLS SEEN Gram Stain Result GRAM POSITIVE COCCI Gram Stain Result STAIN PERFORMED ON CYTOSPIN Gram Stain Result Testing performed at [facility], [address] [place] [address] RESULT Abnormal 30,000 CFU LACTOBACILLUS SPECIES In Vitro Susceptibility is not valid for this organism. RESULT Abnormal 30,000 CFU ALPHA HEMOLYTIC STREPTOCOCCI RESULT Abnormal 16,000 CFU MIXED STAPHYLOCOCCUS SPECIES, COAGULASE NEGATIVE CYTOLOGIC INTERPRETATION: A. Right upper lobe, brush cytology: - Negative for malignant cells. B. Right upper lobe BAL: - Negative for malignant cells. C. Right upper lobe, needle biopsies: - Negative for malignant cells. See description. FINAL PATHOLOGIC DIAGNOSIS: Right upper lobe lung, biopsies: - Fragments of reactive, inflamed bronchial mucosa, negative for granulomas, necrosis or malignancy. PROBLEM LIST Active Problems: * No active hospital problems. 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 Ideally would also recommend aminoglycoside 3 times weekly. However, given his multiple comorbidities, I doubt that he would tolerate this. It is reasonable to start ora l therapy and repeat sputum cultures in 3 months. If this has cleared, we will continue on with full oral therapy for another 3 months. If not, at that time, may reconsider adjunctiv e IV. Thorough review of potential drug drug interactions. His rifampin would interact with dionicio lesp and carbamazepine therefore, rifabutin is preferred. I counseled the patient regarding possible GI side effects with azithromycin; red-colored u rine with rifabutin; possible changes in visual acuity with ethambutol. I have ordered EKG to check for QTC prolongation with azithromycin and have counseled the p atient to follow-up with his eye doctor who he has not seen in 2 years. He verbalized under standing and is willing to proceed with the above plan. We also had a conversation regarding smoking cessation and he voiced his frustration given his lack of options. He is allergic to Chantix and his history of seizures make Wellbutrin a contraindication. We will continue to explore this further in the next few meetings. Discussed treatment plan with patient. All questions and concerns addressed. Patient verbal ized understanding and agrees to proceed with the plan/s as outlined above. Thank you for allowing us to participate in this patient's care. A return visit has been re quested/scheduled in 1 month for routine clinical follow up. The patient was instructed to c all our clinic for any questions, and for any concerns regarding worsening symptoms, includi ng fevers/chills/side effects from medication, especially diarrhea. We will see the patient sooner than the recommended follow up date, if with any worsening of symptoms. Dictation software, OncoPep, used which may contain error for similar sounding words even af ter review. Personal communication requested for any clarification. Portions of this chart may have been copied from previous notes for continuity of care purp eveliae Sana Dawson MD Infectious Diseases [facility] [address] [place] [address] O: F: 12/25/2019 1:50 PM PDT documente d in this encounter Plan of [...] | | | | | | [place] [address] | | | | | | [phone] | | | | | | | | +--------+---------+ + + + | 04/19/ | Office | Pulmonology | Alfonso Wallace MD | | | 2020 | Visit | | [address] | | | | | | [place] | | | | | | [address] | | | | | | | | +--------+---------+ + + + + +------+--------+ + + | Name | Type | Priori | Associated Diagnoses | Order Schedule | | | | ty | | | + +------+--------+ + + | CBC with | Lab | Routin | Mycobacterium | Expected: | | Differential | | e | avium complex (HCC) | 12/25/2019, Expires: | | | | | | 12/24/2020 | + +------+--------+ + + | Comprehensive | Lab | Routin | Mycobacterium | Expected: | | Metabolic Panel | | e | avium complex (HCC) | 12/25/2019, Expires: | | | | | | 12/24/2020 | + +------+--------+ + + | ECG 12 lead | ECG | Routin | Chronic | Expected: | | | | e | obstructive | 12/25/2019, Expires: | | | | | pulmonary disease, | 12/24/2020 | | | | | unspecified COPD | | | | | | type (HCC) | | | | | | Mycobacterium avium | | | | | | complex (HCC) | | + +------+--------+ + + documented as of this encounter Visit Diagnoses + + | Diagnosis | + + | Mycobacterium avium complex (HCC) - Primary Other specified mycobacterial diseases | + + | Chronic obstructive pulmonary disease, unspecified COPD type (HCC) | + + documented in this encounter"
--- OUTSIDE RECORDS SUMMARY | ~2020-01-14 | XMS | Encounter Summary ---
Demographics + + + | Address | [address] | | | [place] [address] | + + + | Home Phone [...] #[address] | | | | | [address] | | + + + + + | Tanika Jean | ECON | Unknown | | + + + + + Care Team Providers + +------+ + | Care Process Control Technician Name | Role | Phone | [...] + + | 05/24/ | Office | [facility] [place] | Chrissy, | COPD exacerbation | | 2012 | Visit | PULMONARY [address] | Ling Frazier MD | ([facility]) (Primary Dx); | | | | [place], | | Tobacco abuse; | | | | [place] [address] | | Nocturnal hypoxemia; | | | | [phone] | | Restless legs | | | [...] rator and one on your car dashboard. [id number], [place] [address]. All rights reserve d. This information is [...] Angel Reina documented in t his encounter Procedure Notes SUZAN SCAN HELIO - 10/12/2012 12:00 AM PDTAssociated Order(s): DIAGNOSTIC REPORT - EXTERNAL SCAN documented in this enco unter Plan of [...] | | | | | [place] [address] | | | | | | [phone] | | | | | | | | +--------+---------+ + + + | 04/19/ | Office | Pulmonology | Alfonso Wallace MD | | | 2020 | Visit | | [address] | | | | | | [place] | | | | | | [address] | | | | | | | [...]
--- OUTSIDE RECORDS SUMMARY | ~2020-01-14 | XMS | Encounter Summary ---
Demographics + + + | Address | [address] | | | [place] [address] | + + + | Home Phone [...] #[id number] | | | | | [address] | | + + + + + | Tanika Jean | ECON | Unknown | | + + + + + Care Team Providers + +------+ + | Care Crusher Supervisor Name | Role | Phone | [...] | Chrissy, | Medication Refill | | 2016 | | PULMONARY [address] | Ling Frazier MD | | | | | [place], | | | | | | [place] [address] | | | | | | [phone] | | | +--------+--------+ + + + [...] [address] | | | | | | [place] [address] | | | | | | [phone] | | | | | | | | +--------+---------+ + + + | 04/19/ | Office | Pulmonology | Alfonso Wallace MD | | | 2020 | Visit | | [address] | | | | | | [place] | | | | | | [phone] | | | | | | | [...]
--- OUTSIDE RECORDS SUMMARY | ~2020-01-14 | XMS | Encounter Summary ---
Demographics + + + | Address | [address] | | | [place] [address] | + + + | Home Phone | | + + + | Preferred Language | Unknown | + + + | Marital Status | Single | + + + | Adventism Affiliation | Unknown | + + + [...] Team Providers + +------+ + | Care Pig Machine Crane Operator Name | Role | Phone | [...] at | | | | | | [facility] | | | | | | and Healing [address] | | | | | | [address] [facility] | | | | | | Health and Healing, | | | | | | [address], | | | | | | Floor [place], [place] | | | | | | [address] | | | | | | [phone] | | | +--------+ + + + [...]
--- OUTSIDE RECORDS SUMMARY | ~2020-01-14 | XMS | Encounter Summary ---
Demographics + + + | Address | [address] | | | [place] [address] | + + + | Home Phone [...] #[address] | | | | | [address] | | + + + + + | Tanika Jean | ECON | Unknown | | + + + + + Care Team Providers + +------+ + | Care Concrete Grinder Operator Name | Role | Phone | [...] Frazier MD | | | | | [place], | | | | | | [place] [address] | | | | | | [phone] | | | +--------+ + + + [...] | | | | | [place] [address] | | | | | | [phone] | | | | | | | | +--------+---------+ + + + | 04/19/ | Office | Pulmonology | Alfonso Wallace MD | | | 2020 | Visit | | [address] | | | | | | [place] | | | | | | [phone] | | | | | | | | +--------+---------+ + + + documented as of this encounter Visit Diagnoses Not on filedocumented in this encounter"
--- OUTSIDE RECORDS SUMMARY | ~2020-01-14 | XMS | Encounter Summary ---
Demographics + + + | Address | [address] | | | [place] [address] | + + + | Home Phone [...] #[address] | | | | | [address] | | + + + + + | Tanika Jean | ECON | Unknown | | + + + + + Care Team Providers + +------+ + | Care Automobile Tire Builder Name | Role | Phone | [...] | obstruction, not | | | | [place], | | elsewhere classified | | | | [place] [address] | | (HCC) | | | | [phone] | | | +--------+ + + + [...] | | | | | [place] [address] | | | | | | [phone] | | | | | | | | +--------+---------+ + + + | 04/19/ | Office | Pulmonology | Alfonso Wallace MD | | | 2020 | Visit | | [address] | | | | | | [place] | | | | | | [address] | | | | | | | | +--------+---------+ + + + documented as of this encounter Visit Diagnoses + + | Diagnosis | + + | Chronic airway obstruction, not elsewhere classified | + + documented in this encounter"
--- OUTSIDE RECORDS SUMMARY | ~2020-01-14 | XMS | Encounter Summary ---
Demographics + + + | Address | [address] | | | [place] [address] | + + + | Home Phone [...] #[place] | | | | | [address] | | + + + + + | Tanika Jean | ECON | Unknown | | + + + + + Care Team Providers + +------+ + | Care Chemistry Quality Control Analyst Name | Role | Phone | + +------+ + | Nuzhat Orantes MD | PCP | | + +------+ + Reason for Referral Evaluate & Treat (Routine) + + + + + + + | Status | Reason | Specialty | Diagnoses / | Referred By | Referred To | | | | | Procedures | Contact | Contact | + + + + + + + | Authorized | Specialty | Infectious | Diagnoses | [facility] | [facility]ang | | | Services | Diseases | | MD Alfonso | Infectious | | | Required | | Mycobacteria | [address] | [address] | | | | | l infection, | [address] | [address] | | | | | non-TB | [address] | [place], [place] | | | | | | [place], [place] | [address] | | | | | | [address] | Phone: | | | | | | Phone: | [phone] | | | | | | [phone] | Fax: | | | | | | Fax: | [phone] | | | | | | [phone] | | + + + + + + + Reason for Visit + + + | Reason | Comments | + + + | Follow-up | | + + + Evaluate & Treat (Urgent) + +--------+ + + + + | Status | Reason | Specialty | Diagnoses / | Referred By | Referred To | | | | | Procedures | Contact | Contact | + +--------+ + + + + | Authorizatio | | Pulmonology | Diagnoses | Orantes, | Hoang | | n not | | | Other | Nuzhat Negrete MD | Pulmonology | | Required | | | nonspecific | [address] | [address] | | | | | abnormal | [address] | [address] | | | | | finding of | [place], | [place], [place] | | | | | lung field | [place] [address] | [address] | | | | | | Phone: | Phone: | | | | | | [phone] | [phone] | | | | | | Fax: | Fax: | | | | | | [phone] | [phone] | + +--------+ + + + + Encounter Details +--------+ + + + + | Date | Type | Department | Care Team | Description | +--------+ + + + + | 12/18/ | Virtual | [facility] | Alfonso Wallace MD | Mycobacterial | | 2019 | Office | PULMONOLOGY [address] | [address] | infection, non-TB | | | Visit | [address] | [place], [place] | (Primary Dx); | | | | [place], [place] | [address] | Personal history of | | | | [address] | | tobacco use, | | | | [phone] | | presenting hazards | | | [...] encounter Progress Notes Alfonso Wallace MD - 12/19/2019 11:50 AM PDT Service was provided with a telephone visit . Time Based Coding Total time (in minutes) including non [id number]-ie-cnzd time (reviewing records, documentation, etc..) 25 The patient was presented with information regarding the risks and benefits of telephone vi sit , given the opportunity to ask questions, and consented to participate in a telephone vi sit today. The patient confirms they are currently physically located at the permanent address on file . I, Alfonso Wallace MD, confirmed this is a state in which I am licensed. Subjective: Patient ID: Nazario Aguilar Sr. [id number] [...] pain. He do es not drink alcohol. 11/29/2019 The patient has been stable since her last visit. He continues to smoke. He has no weight loss. Interim history 12/19/2019 The patient is here to discuss the results of the pet scan . He continues to have cough but denies any weight loss. Her denies any hemoptysis. Review of Systems Constitutional: Negative. HENT: Negative. Eyes: Negative. Respiratory: Positive for cough and shortness of breath. Cardiovascular: Negative. Gastrointestinal: Negative. Genitourinary: Negative. Musculoskeletal: [...] ELECTROMAGNETIC NAVIGATION; Surgeon: Alfonso Wallace MD; Location: [facility] CHOLECYSTECTOMY COLONOSCOPY 2014 dysplastic [...] file Gets together: Not on file Attends baptism service: Not on file Active member of [...] on file prior to visit. Objective: Vitals: 12/19/19 1147 PainSc: 0 - No pain Ct Chest Wo Contrast Result Date: 11/30/2019 Thick-walled cavitary lesion in the right upper lobe is essentially unchanged in size with a slight increase in the degree of cavitation/decrease in soft tissue component, possibly re flecting treatment response. Final Report Signed by: Jam Arnold Michael Sign Date/Time: 8:[address] Skull Base To Mid Thigh Result Date: 12/18/2019 Summary of Target Lesions: *Large irregular shaped cavitary lesion in right upper lobe melanie uring 8.3 x 3.3 cm with hypermetabolic activity, maximum SUV 9.8, similar to CT dated 020. The lesion is decreased in size as compared to CT dated 08/07/2019. Interval decrease i n wall thickness and decrease in air-fluid level as compared to CT dated 08/07/2019. *Small lo wer right paratracheal and right hilar lymph nodes with mild hypermetabolic activity, nonspe cific, similar to CT dated 08/07/2019. Other PET/CT Findings: *COPD with pulmonary emphysema. *Moderate coronary artery atherosclerosis. *Small infrarenal abdominal aortic aneurysm measu ring 2.9 x 2.8 cm. Recommend attention on follow-up imaging with ultrasound in 5 years. *Inc idental findings as detailed above. Comments: *Large irregular shaped cavitary lesion in rig ht upper lobe measuring 8.3 x 3.3 cm with hypermetabolic activity, similar to CT dated 2019. The lesion is decreased in size as compared to CT dated 08/07/2019. Interval decrease in wall thickness and decrease in air-fluid level as compared to CT dated 08/07/2019. The les ion could be infective/inflammatory related to known history of mycobacterium avium infectio n or fungal infection. Neoplastic lesion cannot be excluded. *Small lower right paratrachea l and right hilar lymph nodes with mild hypermetabolic activity are nonspecific, likely reac tive. Metastatic disease cannot be excluded. Final Report Signed by: Jam Bond, Pushpende r Sign Date/Time: 12/18/2019 10:16 AM Assessment and plan 1. Lung mass The patient has a cavitary lesion in the right upper lobe. He underwent a biopsy which was negative for malignancy however on today's CT scan I see persistence although a very slight decrease. The PET scan shows the lesion pet avid however there is a decrease in the size o f the cavity and thickness of the wall. This appears to be due to infection . The ct guided biopsy may results in bronchopleural fi stula. I will refer him to infectious disease for evaluation for treatment for Mycobacterium avium . 2. Personal history of tobacco use, presenting hazards to health He continues to smoke and is not interested in smoking cessation today . 3. Centrilobular emphysema (HCC) The patient has [...] Wallace MD Pulmonary and Critical Care Medicine [address] [place] [address] evaluation exam however we advised not sending you a line advised veronique beaulieu ed documented in this enco unter [...] | | | | | | [place] [address] | | | | | | [phone] | | | | | | | | +--------+---------+ + + + | 04/19/ | Office | Pulmonology | Alfonso Wallace MD | | | 2020 | Visit | | [address] | | | | | | [place] | | | | | | [address] | | | | | | | | +--------+---------+ + + + + + +--------+ + + | Name | Type | Priori | Associated Diagnoses | Order Schedule | | | | ty | | | + + +--------+ + + | Ambulatory Referral | Outpatient | Routin | Mycobacterial | Ordered: 12/19/2019 | | to [facility] Infectious | Referral | e | infection, non-TB | | | Disease | | | | | + + +--------+ + + documented as of this encounter Visit Diagnoses + + | Diagnosis | + + | Mycobacterial infection, non-TB - Primary Unspecified diseases due to mycobacteria | + + | Personal history of tobacco use, presenting hazards to health | + + | Chronic respiratory failure with hypoxia and hypercapnia (HCC) | + + | Lung mass Swelling, mass, or lump in chest | + + | Centrilobular emphysema (HCC) | + + documented in this encounter"
--- OUTSIDE RECORDS SUMMARY | ~2020-01-14 | XMS | Encounter Summary ---
Demographics + + + | Address | [address] | | | [place] [address] | + + + | Home Phone | | + + + | Preferred Language | Unknown | + + + | Marital Status | | + + + | Sabianist Affiliation | 1061 | + + + | Race | White | + + + | Ethnic Group | Not or | + + + Author + + + | Author | [facility] | | | and [place] | + + + | Organization | [facility] | | | and [place] | + + + | Address | Unknown | + + + | Phone | Unavailable | + + + Support + + + + + | Name | Relationship | Address | Phone | + + + + + | Palak Aguilar | ECON | [address] | | | | | [address] | | + + + + + | Tanika Jean | ECON | Unknown | | + + + + + Care Team Providers + +------+ + | Care Realty Loan Specialist Name | Role | Phone | [...] + + | 03/16/ | Office | [facility] | [place], | COPD (chronic | | 2012 | Visit | PULMONARY [address] | Ling Frazier MD | obstructive | | | | [place], | | pulmonary disease) | | | | [place] [address] | | (HCC) (Primary Dx); | | | | [phone] | | Tobacco abuse; | | | [...] So, don't give u p! Go Cold [place]: Most ex-smokers quit cold turkey. Trying to [...] your behavior and peer support. Call the [facility] Quitline for more information. 551-VWFA-IFD (879-302-1664). Low-cost or free programs are offered by many hospitals, local chapters of the [place] [employer] (628-980-2842) a nd the [place] [employer] (616-526-7556). Support at home is important too. Non-smokers can help by offering praise and encouragement. If the smoker fails to quit, encourage them to try again! Dqfu-Faq-Jqfxulo Medicines: For those who can't quit on [...] smoking, visit the following links: National Cancer [place] , Clearing the Air, Quit Smoking Today - an online mejias klet. http://www.smokefree.gov/pubs/clearing_the_air.pdf Smokefree.gov http://smokefree.gov/ QuitNet http://www.quitnet.com/ 8076-9697 Rudy Min, [address] [place] [address], [place] [address]. All rights reserve d. This information is not intended as a substitute for professional medical care. Always fo llow your healthcare professional's instructions. documented in this encounter Progress Notes Ling Lowe MD - 03/16/2013 2:39 PM PSTFormatting of this note might be differe nt from the original. Pulmonary Follow Up Note MD Gorge Johnsona [place] Pul[facility] Critical [facility] [address] [place], [address] HPI Nazario Aguilar Leonora is a 62 y.o. male patient of Jose Angel Reina here today for foll ow up of COPD. At their last visit, we had continued his Advair, Spiriva and Daliresp. Since their last vi sit he feels like he has been doing pretty well. He notes that he was [facility] with vomiting, which was [...] to ensure accuracy; however, inadvertent computerized technical spec errors may be pre sent. documented in t his encounter Miscellaneous Notes Miscellaneous - [facility] - 03/16/2013 12:00 AM PST iscellaneous - ONBASE SCAN [facility] - 03/16/2013 12:00 AM PSTEle ctronically signed by Helio Coronado at 03/20/2013 2:54 PM PSTdocumented in this encounter Plan of [...] | | | | | | [place] [address] | | | | | | [phone] | | | | | | | | +--------+---------+ + + + | 04/19/ | Office | Pulmonology | Alfonso Wallace MD | | | 2020 | Visit | | [address] | | | | | | [place] | | | | | | [address] | | | | | | | [...]
--- OUTSIDE RECORDS SUMMARY | ~2020-01-14 | XMS | Encounter Summary ---
Demographics + + + | Address | [address] | | | [place] [address] | + + + | Home Phone [...] [address] | | | | | [address] | | + + + + + | Tanika Jean | ECON | Unknown | | + + + + + Care Team Providers + +------+ + | Care Rn Case Management Name | Role | Phone | + [...] Frazier MD | | | | | [place], | | | | | | [place] [address] | | | | | | [phone] | | | +--------+--------+ + + + [...] | | | | | [place] [address] | | | | | | [phone] | | | | | | | | +--------+---------+ + + + | 04/19/ | Office | Pulmonology | Alfonso Wallace MD | | | 2020 | Visit | | [address] | | | | | | [place] | | | | | | [phone] | | | | | | | [...]
--- OUTSIDE RECORDS SUMMARY | ~2020-01-14 | XMS | Encounter Summary ---
Demographics + + + | Address | [address] | | | [place] [address] | + + + | Home Phone [...] #[address] | | | | | [address] | | + + + + + | Tanika Jean | ECON | Unknown | | + + + + + Care Team Providers + +------+ + | Care Public Works Supervisor Name | Role | Phone | [...] + + | 07/08/ | Office | [facility] | Damaso Gavin, | Hypoxia (Primary | | 2018 | Visit | PULMONARY [address] | Dx); Centrilobular | | | | [place], | [place] [address] | emphysema (HCC); | | | | [place] [address] | [phone] | Tobacco dependence | | | | [phone] | | due to cigarettes; | | [...] + + + documented in this encounter H&P Damaso Joyner MD - 07/08/2017 1:20 PM QKT88-rjvx-did smoker with hypoxia, emph ysema, tobacco dependence He is sent for consultation by Dr. Reina. he was seen in [address] Brooks. He began smoking age 13 and smoked 2 packs per day most of the time until recently, where h heather now smokes about a pack and half per day. He has occasionally slow down or quit but never been able to sustain it. He knows that he was able to quit alcohol about 10 years ago and it didn't bother him. He tried using Chantix but it made him sick, feeling like he had to p ass out, and because he has a seizure disorder, for which she takes carbamazepine, he has be en advised not to try Wellbutrin. His is currently trying Wellbutrin to help her quit. He was admitted to [facility] in April 2017 and treated for pneumonia and flu, althoug h his influenza swab was negative for a and B. It appears to have been an exacerbation of C OPD and he was discharged on tapering prednisone. He uses 2 L oxygen around the clock, pulse when he is outside the home. He sleeps with it. His medications are Advair 500 discus, Daliresp, once daily inCruse, a long-acting anticho linergic, and when necessary albuterol, which she needs me to refill. He had a sleep study which showed he had restless legs, not sleep apnea, and he takes Requip for it. Growing up he did not have asthma and does not have it now. He did have hayfever growing u p and may occasionally get it these days and takes nasal Flonase for it. Past medical history: He has diabetes and hypertension and a seizure disorder that is well controlled; his last seizure was more than one year ago.. He has bad reactions to Levaquin, with itching during IV administration. Social history: He lives with his and dogs. The dogs do not seem to make his breathin g worse. He drinks no alcohol. 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 Physical exam: Attentive somewhat overweight man with halting but appropriate speech wearin g nasal oxygen here with his . Weight 102.1 kg, blood pressure 120/80 pulse 104 regular , then 112 as he stood up regular. Temperature 97.6, respirations 20, oxygen saturation 91% on 2 L pulse O2. HEENT: Conjunctiva are pink. Pupils are midsize and reactive. Oropharyn x is normal. The neck feels normal. There is no adenopathy. The lung wells show slight w heeze and prolonged expiratory phase but there is good airflow at the mouth. Cardiac rhythm is fast but regular. Abdomen is soft and nontender. Ankles show no edema. Laboratory evaluation: May 27 his hemoglobin was 16.5, white count 9800, platelets 270 ,000, 69% neutrophils and 23% lymphocytes and 2% eosinophils, probably on prednisone. Chemi stries showed glucose 147 sodium 135 potassium 3.9 chloride 104 bicarb 25 creatinine 0.8 BUN 12 total bilirubin 0.4 alk phos 105 a LT 12 AST 11 albumin 4.4 globulin 2.[address] x-ray 07/25 2017 shows flat diaphragms and a question of cardiomegaly. There is no change back to 2010. In June 2015 he could walk on room air without desaturating below 93%. Las t pulmonary function testing we have is from February 2011 when FVC was 3.25 an FEV1 1.51, 4 3% of predicted, for ratio 47% before bronchodilator. There was a 320 mL improvement after bronchodilator, to 21%. On capacity was increased at 123% of predicted with residual volume 228%. Already in 2010, is diffusion capacity was down to 12.6, 38% of predicted, severely reduced. Impression and suggestions: 1. Hypoxia and emphysema: He is on the right medication. I emphasized to him the importan ce of letting inflammation quieted down by stopping the cigarettes and letting the steroid i n the Advair do it's work. His oxygen dose appears appropriate. 2. Tobacco dependence: We spent considerable time on this. I told him he has to decide no t to have the next one just as people do an AA. He and his both understand. I wrote him prescriptions for Advair and albuterol and he is welcome to return as needed. We spent 50 minutes, at least half in counseling. Word processing was used and I apologize for mistakes. Damaso Gavin M.D. Pulmonary critical care documented i n this encounter Plan of Treatment +--------+---------+ + + + | Date | Type | Specialty | Care Team | Description | +--------+---------+ + + + | 01/28/ | Office | Infectious Diseases | Sana Dawson | | | 2019 | Visit | | Jazmin Stringer MD | | | | | | [address] | | | | | | [place] [address] | | | | | | [phone] | | | | | | | | +--------+---------+ + + + | 04/19/ | Office | Pulmonology | Alfonso Wallace MD | | | 2020 | Visit | | [address] | | | | | | [place] | | | | | | [phone] | | | | | | | [...]
--- OUTSIDE RECORDS SUMMARY | ~2020-01-14 | XMS | Encounter Summary ---
Demographics + + + | Address | [address] | | | [place] [address] | + + + | Home Phone [...] [address] | | | | | [address] | | + + + + + | Tanika Jean | ECON | Unknown | | + + + + + Care Team Providers + +------+ + | Care Steeler Name | Role | Phone | + [...] | | | | History of | [address] | [address] | | | | | seizures | [place], | [place], | | | | | | [place] [address] | [place] [address] | | | | | | Phone: | Phone: | | | | | | [phone] | [phone] | | | | | | Fax: | Fax: | | | | | | [phone] | [phone] | +--------+ + + + + + Encounter Details +--------+---------+ + + + | Date | Type | Department | Care Team | Description | +--------+---------+ + + + | 12/19/ | Office | [facility] | Roderick Williamson MD [address] | Ataxia (Primary Dx); | | 2012 | Visit | NEUROLOGY [place] | [address] | Claustrophobia; | | | | [facility], | [address] [facility], | Tremor; Seizure | | | | [address] [facility] [address] | disorder (HCC) | | | | [place] [address] | [phone] | | | | | [phone] | | | +--------+---------+ + + + [...] be different from the o rj. Neurology New Patient Evaluation Referring Physician: Karlos [...] minutes. Patient reports history of EEG at [facility] that was reported to be normal. He denies ever had CT or MRI of the brain. He is currently maintained well on carbamazepine 200 mg twice a day. His last seizure was at [facility] 6 months ago. Patient also reports frontal [...] Angel Boswell MD documented in this encounter Miscellaneous Notes Miscellaneous - [facility] - 12/19/2012 12:00 AM PDT documented in this encounter [...] | | | | | [place] [address] | | | | | | [phone] | | | | | | | | +--------+---------+ + + + | 04/19/ | Office | Pulmonology | Alfonso Wallace MD | | | 2020 | Visit | | [address] | | | | | | [place] | | | | | | [address] | | | | | | | [...]
--- OUTSIDE RECORDS SUMMARY | ~2020-01-14 | XMS | Encounter Summary ---
Demographics + + + | Address | [address] | | | [place] [address] | + + + | Home Phone [...] [address] | | | | | [address] | | + + + + + | Tanika Jean | ECON | Unknown | | + + + + + Care Team Providers + +------+ + | Care Volunteer Manager Name | Role | Phone | [...] | | finding of | [address], | [place], [place] | | | | | lung field | [place] [address] | [address] | | | | | | Phone: | Phone: | | | | | | [phone] | [phone] | | | | | | Fax: | Fax: | | | | | | [phone] | [phone] | + +--------+ + + + + Encounter Details +--------+---------+ + + + | Date | Type | Department | Care Team | Description | +--------+---------+ + + + | 08/09/ | Office | [facility] | Alfonso Wallace MD | Personal history of | | 2019 | Visit | PULMONOLOGY [address] | tobacco use, | | | | [address] | [place], [place] | presenting hazards | | | | [place], [place] | [address] | to health (Primary | | | | [address] | | Dx); Centrilobular | | | | [phone] | | emphysema (HCC); | | | [...] file Gets together: Not on file Attends temple service: Not on file Active member of [...] Wallace MD Pulmonary and Critical Care Medicine [address] , [place] [address] documented in this enco unter Plan of Treatment +--------+---------+ + + + | Date | Type | Specialty | Care Team | Description | +--------+---------+ + + + | 01/28/ | Office | Infectious Diseases | Sana Dawson | | 2019 | Visit | | Jazmin Stringer MD | | | | | | [address] | | | | | | [place] [address] | | | | | | [phone] | | | | | | | | +--------+---------+ + + + | 04/19/ | Office | Pulmonology | Alfonso Wallace MD | | | 2020 | Visit | | [address] | | | | | | [place], [place] | | | | | | [address] | | | | | | | [...]
--- OUTSIDE RECORDS SUMMARY | ~2020-01-14 | XMS | Encounter Summary ---
Demographics + + + | Address | [address] | | | [place] [address] | + + + | Home Phone [...] Author | [facility] | | | and [place] | + + + | Organization | [facility] | | | and [place] | + + + | Address | Unknown | + + + | Phone | Unavailable | + + + Support + + + + + | Name | Relationship | Address | Phone | + + + + + | Palak Aguilar | ECON | [id number] | | | | | [address] | | + + + + + | Tanika Jean | ECON | Unknown | | + + + + + Care Team Providers + +------+ + | Care Sliver Machine Operator Name | Role | Phone [...] Frazier MD | | | | | [place], | | | | | | [place] [address] | | | | | | [phone] | | | +--------+--------+ + + + [...] [address] | | | | | | [place] [address] | | | | | | [phone] | | | | | | | | +--------+---------+ + + + | 04/19/ | Office | Pulmonology | Alfonso Wallace MD | | | 2020 | Visit | | [address] | | | | | | [place] | | | | | | [address] | | | | | | | [...]
--- OUTSIDE RECORDS SUMMARY | ~2020-01-14 | XMS | Encounter Summary ---
Demographics + + + | Address | [address] | | | [place] [address] | + + + | Home Phone [...] #[address] | | | | | [address] | | + + + + + | Tanika Jean | ECON | Unknown | | + + + + + Care Team Providers + +------+ + | Care Canvas Repairer Name | Role | Phone | + +------+ + | Jose Angel Reina MD | PCP | | + +------+ + Reason for Visit +--------+--------+ + | Reason | Onset | Comments | | | Date | | +--------+--------+ + | Other | 12/21/ | | | | 2012 | | +--------+--------+ + Encounter Details +--------+ + + + + | Date | Type | Department | Care Team | Description | +--------+ + + + + | 12/21/ | Telephone | [facility] | Roderick Williamson MD [address] | Other | | 2012 | | NEUROLOGY CUSTAR | [facility] | | | | | [address] [facility], | JOANN D JUAN | | | | | JAMIE KOROMA [address] [facility] | [place] [address] | | | | | [place] [address] | [phone] | | | | | [phone] | | | +--------+ + + + [...] this encounter Miscellaneous Notes Telephone Encounter - Phil Dejesus - 12/21/2012 2:16 PM [facility] stated that the patient called in to her and asked if an or kiera had been written for his MRI and if they had received it. She stated that she didn't hav e it and needs a copy. Please advise. documented in this e ncounter Plan of [...] | | | | | [place] [address] | | | | | | [phone] | | | | | | | | +--------+---------+ + + + | 04/19/ | Office | Pulmonology | Alfonso Wallace MD | | | 2020 | Visit | | [address] | | | | | | [place] | | | | | | [phone] | | | | | | | | +--------+---------+ + + + documented as of this encounter Visit Diagnoses Not on filedocumented in this encounter"
--- OUTSIDE RECORDS SUMMARY | ~2020-01-14 | XMS | Encounter Summary ---
Demographics + + + | Address | [address] | | | [place] [address] | + + + | Home Phone [...] #[address] | | | | | [address] | | + + + + + | Tanika Jean | ECON | Unknown | | + + + + + Care Team Providers + +------+ + | Care Supervisor Data Processing Name | Role | Phone | + [...] | Karlos Gatica MD | [address] | | | | | shoulder | [address] | [place], | | | | | pain | [address] | [place] | | | | | Rotator cuff | [place], | [address] | | | | | tendonitis, | [place] [address] | Phone: | | | | | right | Phone: | [phone] | | | | | Rotator cuff | [phone] | Fax: | | | | | tear | Fax: | [phone] | | | | | arthropathy | [phone] | | | | | | of [...] | shoulder | [address] | | | | n | pain | [address] | [place], | | | | | Rotator cuff | [place], | [place] [address] | | | | | tendonitis, | [place] [address] | Phone: | | | | | right | Phone: | [phone] | | | | | | [phone] | Fax: | | | | | | Fax: | [phone] | | | | | | [phone] | | +--------+ + + + + + Reason for Visit + + + | Reason | Comments | + + + | Shoulder Pain | | + + + Encounter Details +--------+---------+ + + + | Date | Type | Department | Care Team | Description | +--------+---------+ + + + | 03/22/ | Office | [facility] | Karlos Craig, | Right shoulder pain | | 2013 | Visit | PHYSIATRY [address] | MD [address] | (Primary Dx); | | | | [address] | [place] | Rotator cuff | | | | [place] | [address] | tendonitis, right; | | | | [address] | | Rotator cuff tear | | | | [phone] | | arthropathy of right | | [...] office note has been dictated. Job ID# [id number] Referring Physician: Jose Angel Reina * Diagnosis: [...] attention as well as inform my clinic. [facility] 12:00 AM [facility] PHYSICAL MEDICINE AND REHAB [address] [place] [address] FAX: [phone] OFFICE VISIT PHYSICAL MEDICINE REHABILITATION PROGRESS NOTE [...] Jr, MD GEM / PAP JOB #: [id number] cc: Peter Reina MD documented in this encounter Miscellaneous Notes Miscellaneous - [facility] - 03/22/2014 12:00 AM PST documented in this encounter [...] | | | | | [place] [address] | | | | | | [phone] | | | | | | | | +--------+---------+ + + + | 04/19/ | Office | Pulmonology | Alfonso Wallace MD | | | 2020 | Visit | | [address] | | | | | | [place] | | | | | | [address] | | | | | | | | +--------+---------+ + + + + +---------+--------+ + + [...] | | | |Dictated and Signed by: Yraed Diaz MD | | Electronically signed: 04/20/2014 1:41 PM | + + + +---------+ + + | Performing | Address | City[facility]State[facility] | Phone Number | | Organization | | | | + +---------+ + + | MISCELLANEOUS LAB | | | [phone] | + +---------+ + + | MISCELANIOUS LAB | | | [phone] | + +---------+ + + [place] Shoulder [...] + | MISCELLANEOUS LAB | | | [phone] | + +---------+ + + | MISCELANIOUS LAB | | | [phone] | + +---------+ + + documented in [...] | | | ) | | ONCE[facility] 03/22/14 at 1400, For 1 | | | | | | | dose, Not for IV use., | | | | | | + + + +-------+------+ + +---+---+ | | | +---+---+ documented in this encounter
--- OUTSIDE RECORDS SUMMARY | ~2020-01-14 | XMS | Encounter Summary ---
Demographics + + + | Address | [address] | | | [place] [address] | + + + | Home Phone [...] #[address] | | | | | [address] | | + + + + + | Tanika Jean | ECON | Unknown | | + + + + + Care Team Providers + +------+ + | Care Tap And Die Maker Technician Name | Role | Phone | [...] Frazier MD | | | | | [place], | | | | | | [place] [address] | | | | | | [phone] | | | +--------+--------+ + + + [...] | | | | | [place] [address] | | | | | | [phone] | | | | | | | | +--------+---------+ + + + | 04/19/ | Office | Pulmonology | Alfonso Wallace MD | | | 2020 | Visit | | [address] | | | | | | [place] | | | | | | [address] | | | | | | | | +--------+---------+ + + + documented as of this encounter Visit Diagnoses Not on filedocumented in this encounter"
--- OUTSIDE RECORDS SUMMARY | ~2020-01-14 | XMS | Encounter Summary ---
Demographics + + + | Address | [address] | | | [place] [address] | + + + | Home Phone [...] Author | [facility] | | | and [place] | + + + | Organization | [facility] | | | and [place] | + + + | Address | Unknown | + + + | Phone | Unavailable | + + + Support + + + + + | Name | Relationship | Address | Phone | + + + + + | Palak Aguilar | ECON | [id number] | | | | | [address] | | + + + + + | Tanika Jean | ECON | Unknown | | + + + + + Care Team Providers + +------+ + | Care Cognos Bi Developer Name | Role | Phone | [...] MD | | | | | [place], | | | | | | [place] [address] | | | | | | [phone] | | | +--------+--------+ + + + [...] | | | | | [place] [address] | | | | | | [phone] | | | | | | | | +--------+---------+ + + + | 04/19/ | Office | Pulmonology | Alfonso Wallace MD | | | 2020 | Visit | | [address] | | | | | | [place] | | | | | | [address] | | | | | | | [...]
[~2020-01-14 22:13] MED LIST changes: +GLIPIZIDE ER5 MG PO; +JANUMET XR 50-1 EAC1 PO; +VITAMIN D21250 MCG PO
--- OUTSIDE RECORDS SUMMARY | 2020-01-14 22:16 | XMS ---
PreManage Notification: KEVIN DAUGHERTY Security Proposal Development Manager Events No recent Security Events currently on file CRITERIA MET - Group Notification - [facility] - Has Care Guidelines CARE PROVIDERS NUNO, Family Medicine 01/25/2018-Current [employer] PHONE: [phone] [facility] Internal Medicine 09/01/2019-Current PHONE: [phone] [facility] has no Care Guidelines for this patient. Care History Social 03/09/2017 [facility] PATIENT RECEIVES FOOD STAMPS THROUGH [facility] Medical/Surgical 09/01/2019 [facility] - Patient is currently established with [facility]. If patient is seen in the ED during business hours. Please contact [facility] at [facility]. Care Recommendation: If this patient has had 5 or more Emergency Department visits in the last 12 months.\T\nbsp; Patient will require education on the scope and purpose of the ED as an acute care provider not a Primary Care Provider and should not be utilized for chronic conditions.\T\nbsp; These are guidelines and the provider should exercise clinical judgment when providing care. 02/27/2019 [facility] I called Serafin and made the recommendation for triple therapy inhaler. This change will put him on max therapy for his COPD. He also has a follow up on the with Doctor Nuno. 06/21/2018 [facility] - PER DISCUSSION WITH [facility]PUL[facility]ARY REHAB AT [facility]. PATIENT IS NON COMPLIANT WITH THE PROGRAM. - MULTIPLE ATTEMPTS OF EDUCATION HAS BEEN PROVIDED AND OTHER RESOURCES SUCH CONNEXIONS REFERRAL FOR PATIENT HAS BEEN MADE. - PATIENT WILL BE DISCHARGED FROM PULMONARY REHAB. E.D. VISIT COUNT (12 MO.) 4 [facility]. TOTAL 4 NOTE: Visits indicate total known visits. 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 - termite control service representative (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 of oral hypoglycemic drugs - Allergy status to other drugs, medicaments and biological sub - Generalized abdominal pain - Allergy status to other antibiotic agents status - Type 2 diabetes mellitus without complications - Chronic obstructive pulmonary disease, unspecified - halfway (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 - Dependence on supplemental oxygen - Essential (primary) hypertension - Nicotine dependence, unspecified, uncomplicated 06/23/2019 18:48 [facility] [place] TYPE: Emergency COMPLAINT: - SORE THROAT,BODY ACHES DIAGNOSES: - Type 2 diabetes mellitus without complications - Shortness of breath - Nicotine dependence, cigarettes, uncomplicated - Nicotine dependence, unspecified, uncomplicated - 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 [place] TYPE: Emergency COMPLAINT: - DIFFICULTY BREATHING DIAGNOSES: - Chronic obstructive pulmonary disease with (acute) exacerbati - Shortness of breath - Other longterm (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 - Allergy status to other drugs, medicaments and biological sub - Nicotine dependence, unspecified, uncomplicated - Pneumonia, unspecified organism - Allergy status to other antibiotic agents status - Type 2 diabetes mellitus without complications - Essential (primary) hypertension - halfway (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 of oral hypoglycemic drugs - halfway (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 INPATIENT VISIT TRACKING (12 MO.) No inpatient visits to display in this time frame [id number]
[2020-01-14] MEDS ORDERED: FREESTYLE LANC1 EACH MISC (22:27)
[2020-01-14] MEDS ORDERED: FREESTYLE LITE1 EAC1 MISC (22:27)
[2020-01-14] MEDS ORDERED: ETHAMBUTOL HCL400 MG PO (22:28)
[2020-01-14] MEDS ORDERED: RIFABUTIN150 MG PO (22:29)
[2020-01-14] MEDS ORDERED: AZITHROMYCIN500 MG PO (22:31)
--- NOTE | 2020-01-15 08:49 | EKG ---
[facility] [address] [facility] [place] [address] Signed Sinus tachycardia with occasional premature ventricular complexes Left axis deviation Abnormal ECG When compared with ECG of 04-JAN-2020 15:56, premature ventricular complexes are now present Confirmed by SIGRID ARELLANO MD ([id number]) on 01/15/2020 8:49:17 AM Electronically Signed By: SIGRID ARELLANO MD 01/15/20 0849 PATIENT NAME: KEVIN DAUGHERTY Electrocardiogram DATE OF : 46 PHYSICIAN: SIGRID ARELLANO MD REPORT #: [id number] REPORT IS CONFIDENTIAL AND NOT TO BE RELEASED WITHOUT AUTHORIZATION
== END 2020-01-14 23:46 | disposition home or self-care (01) ==
LOC: ED 22:13
DX: E11.649 Type 2 diabetes mellitus with hypoglycemia without coma (principal); I10 Essential (primary) hypertension; J44.9 Chronic obstructive pulmonary disease, unspecified; Z99.81 Dependence on supplemental oxygen; F17.200 Nicotine dependence, unspecified, uncomplicated; Z88.1 Allergy status to other antibiotic agents; Z79.899 Other long term (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; Z79.82 Long term (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; Z79.84 Long term (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 of oral hypoglycemic drugs
CPT/HCPCS: 71045; 80053; 83735; 83880; 84484; 85025; 99284-25; J7030

== ENCOUNTER 2020-02-26 00:14 | Emergency (ER) | payer MEDICARE ==
[~2020-02-26] VITALS: Ht 175.3 cm; Wt 101.6 kg
[~2020-02-26 00:14] MED LIST changes: +AZITHROMYCIN500 MG PO; +ETHAMBUTOL HCL400 MG PO; +FREESTYLE LANC1 EACH MISC; +FREESTYLE LITE1 EAC1 MISC; +RIFABUTIN150 MG PO
--- OUTSIDE RECORDS SUMMARY | 2020-02-26 00:16 | XMS ---
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 Care History Medical/Surgical 09/01/2019 [facility] - Patient is currently established with [facility]. If patient is seen in the ED during business hours. Please contact CHWs at [facility]. Care Recommendation: If this patient has had 5 or more Emergency Department visits in the last 12 months.\T\nbsp; Patient will require education on the scope and purpose of the ED as an acute care provider not a Primary Care Provider and should not be utilized for chronic conditions.\T\nbsp; These are guidelines and the provider should exercise clinical judgment when providing care. 02/27/2019 [facility] I called Serafin and made the recommendation for triple therapy inhaler. This change will put him on max therapy for his COPD. He also has a follow up on the with Doctor Nuno. 06/21/2018 [facility] - PER DISCUSSION WITH [facility] REH[facility] AT [facility]. PATIENT IS NON COMPLIANT WITH THE PROGRAM. - MULTIPLE ATTEMPTS OF EDUCATION HAS BEEN PROVIDED AND OTHER RESOURCES SUCH CONNEXIONS REFERRAL FOR PATIENT HAS BEEN MADE. - PATIENT WILL BE DISCHARGED FROM PULMONARY REHAB. Social 03/09/2017 [facility] PATIENT RECEIVES FOOD STAMPS THROUGH [employer]. VISIT COUNT (12 MO[address] 5 [facility]. TOTAL 5 NOTE: Visits indicate total known visits. 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 - Type 2 diabetes mellitus with hypoglycemia without coma - Dependence on supplemental oxygen - Allergy status to other antibiotic agents - Nicotine dependence, unspecified, uncomplicated - correction (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 - Other manager intermediate (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 08/31/2019 21:25 ELIE [place] TYPE: Emergency COMPLAINT: - ABD PAIN DIAGNOSES: - Other m[facility]p (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 - termite exterminator helper (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 of oral hypoglycemic drugs - Allergy status to other drugs, medicaments and biological substances - Generalized abdominal pain - Allergy status to other antibiotic agents - Type 2 diabetes mellitus without complications - Chronic obstructive pulmonary disease, unspecified - correction (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 - Dependence on supplemental oxygen - Essential (primary) hypertension - Nicotine dependence, unspecified, uncomplicated 06/23/2019 18:48 [place] TYPE: Emergency COMPLAINT: - SORE THROAT,BODY ACHES DIAGNOSES: - Type 2 diabetes mellitus without complications - Shortness of breath - Nicotine dependence, cigarettes, uncomplicated - Nicotine dependence, unspecified, uncomplicated - Other mcfp (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 - Chronic obstructive pulmonary disease with (acute) exacerbation - Essential (primary) hypertension 02/26/2019 01:08 [place] TYPE: Emergency COMPLAINT: - DIFFICULTY BREATHING DIAGNOSES: - Chronic obstructive pulmonary disease with (acute) exacerbation - Shortness of breath - Other manager intermediate (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 - Allergy status to other drugs, medicaments and biological substances - Nicotine dependence, unspecified, uncomplicated - Pneumonia, unspecified organism - Allergy status to other antibiotic agents - Type 2 diabetes mellitus without complications - Essential (primary) hypertension - correction (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 of oral hypoglycemic drugs - correction (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 INPATIENT VISIT TRACKING (12 MO.) No inpatient visits to display in this time frame [email or web address]
--- NOTE | 2020-02-27 00:42 | EKG ---
[facility] [address] [facility] [place] [address] Signed Sinus tachycardia with premature atrial complexes Left axis deviation Pulmonary disease pattern Abnormal ECG When compared with ECG of 14-JAN-2020 22:21, premature ventricular complexes are no longer present premature atrial complexes are now present Confirmed by SIGRID ARELLANO MD ([id number]) on 02/27/2020 12:42:32 AM Electronically Signed By: SIGRID ARELLANO MD 02/27/20 0042 PATIENT NAME: KEVIN DAUGHERTY Electrocardiogram DATE OF : 46 PHYSICIAN: SIGRID ARELLANO MD REPORT #: [id number] REPORT IS CONFIDENTIAL AND NOT TO BE RELEASED WITHOUT AUTHORIZATION
== END 2020-02-26 02:16 | disposition home or self-care (01) ==
LOC: ED 00:14
DX: J44.1 Chronic obstructive pulmonary disease with (acute) exacerbation (principal); E11.9 Type 2 diabetes mellitus without complications; I10 Essential (primary) hypertension; F17.200 Nicotine dependence, unspecified, uncomplicated; Z88.1 Allergy status to other antibiotic agents; Z88.8 Allergy status to other drugs, medicaments and biological substances; Z79.899 Other long term (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; Z79.82 Long term (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
CPT/HCPCS: 71045; 80053; 83735; 83880; 84484; 85025; 93005; 93010; 99285-25; C9803; U0003

== ENCOUNTER 2020-05-02 00:45 | Emergency (ER) | payer MEDICARE ==
[~2020-05-02] VITALS: Ht 175.3 cm; Wt 101.6 kg
--- OUTSIDE RECORDS SUMMARY | 2020-05-02 00:48 | XMS ---
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 Care History Social 03/09/2017 [facility] PATIENT RECEIVES FOOD STAMPS [facility]OUGH [facility] Medical/Surgical 09/01/2019 [facility] - Patient is currently established with [facility]. If patient is seen in the ED during business hours. Please contact CHWs at [facility]. Care Recommendation: If this patient has had 5 or more Emergency Department visits in the last 12 months.\T\nbsp; Patient will require education on the scope and purpose of the ED as an acute care provider not a Primary Care Provider and should not be utilized for chronic conditions.\T\nbsp; These are guidelines and the provider should exercise clinical judgment when providing care. 02/27/2019 [facility] I called Serafin and made the recommendation for triple therapy inhaler. This change will put him on max therapy for his COPD. He also has a follow up on the with Doctor Nuno. 06/21/2018 [facility] - PER DISCUSSION WITH [facility] AT [facility]. PATIENT IS NON COMPLIANT WITH THE PROGRAM. - MULTIPLE ATTEMPTS OF EDUCATION HAS BEEN PROVIDED AND OTHER RESOURCES SUCH CONNEXIONS REFERRAL FOR PATIENT HAS BEEN MADE. - PATIENT WILL BE DISCHARGED FROM PULMONARY REHAB. E.D. VISIT COUNT (12 MO.) 5 [facility]. TOTAL 5 NOTE: Visits indicate total known visits. ED/UCC VISIT TRACKING (12 MO.) 05/02/2020 00:46 [place] TYPE: Emergency COMPLAINT: - SOB 02/26/2020 00:14 [place] TYPE: Emergency COMPLAINT: - FEVER,SOB DIAGNOSES: - Other shelter (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 - Allergy status to other antibiotic agents - Allergy status to other drugs, medicaments and biological substances - Essential (primary) hypertension - Type 2 diabetes mellitus without complications - [facility] (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 - Contact with and (suspected) exposure to other viral communicable diseases - Allergy status to other antibiotic agents - Chronic obstructive pulmonary disease with (acute) exacerbation - Nicotine dependence, unspecified, uncomplicated - Allergy status to other drugs, medicaments and biological substances - Shortness of breath 01/14/2020 22:13 [place] TYPE: Emergency COMPLAINT: - CHEST PAIN/SOB/BLOOD SUGAR ISSUE DIAGNOSES: - Type 2 diabetes mellitus with hypoglycemia without coma - Dizziness and giddiness - Essential (primary) hypertension - Chronic obstructive pulmonary disease, unspecified - [facility] (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 of oral hypoglycemic drugs - Type 2 diabetes mellitus with hypoglycemia without coma - Dependence on supplemental oxygen - Allergy status to other antibiotic agents - Nicotine dependence, unspecified, uncomplicated - 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 - Other termite control technician (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 08/31/2019 21:25 [place] TYPE: Emergency COMPLAINT: - ABD PAIN DIAGNOSES: - Other termite control technician (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 - [facility] (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 of oral hypoglycemic drugs - Allergy status to other drugs, medicaments and biological substances - Generalized abdominal pain - Allergy status to other antibiotic agents - Type 2 diabetes mellitus without complications - Chronic obstructive pulmonary disease, unspecified - [facility] (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 - Dependence on supplemental oxygen - Essential (primary) hypertension - Nicotine dependence, unspecified, uncomplicated 06/23/2019 18:48 [place] TYPE: Emergency COMPLAINT: - SORE THROAT,BODY ACHES DIAGNOSES: - Type 2 diabetes mellitus without complications - Shortness of breath - Nicotine dependence, cigarettes, uncomplicated - Nicotine dependence, unspecified, uncomplicated - Other shelter (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 - Chronic obstructive pulmonary disease with (acute) exacerbation - Essential (primary) hypertension INPATIENT VISIT TRACKING (12 MO.) No inpatient visits to display in this time frame [id number]
--- NOTE | 2020-05-02 15:27 | EKG ---
[facility] [address] [facility] [place] [address] Signed Sinus tachycardia with occasional premature ventricular complexes Left axis deviation Pulmonary disease pattern Abnormal ECG When compared with ECG of 26-FEB-2020 00:24, premature ventricular complexes are now present premature atrial complexes are no longer present Confirmed by SUE MARTINEZ DO ([id number]) on 05/02/2020 3:27:17 PM Electronically Signed By: SUE MARTINEZ DO 05/02/20 1527 PATIENT NAME: KEVIN DAUGHERTY Electrocardiogram DATE OF : 46 PHYSICIAN: SUE MARTINEZ DO REPORT #: [id number] REPORT IS CONFIDENTIAL AND NOT TO BE RELEASED WITHOUT AUTHORIZATION
== END 2020-05-02 05:37 | disposition home or self-care (01) ==
LOC: ED 00:45
DX: J44.1 Chronic obstructive pulmonary disease with (acute) exacerbation (principal); Z20.822 Contact with and (suspected) exposure to COVID-19; E11.9 Type 2 diabetes mellitus without complications; I10 Essential (primary) hypertension; R56.9 Unspecified convulsions; F17.200 Nicotine dependence, unspecified, uncomplicated; Z88.1 Allergy status to other antibiotic agents; Z79.899 Other long term (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; Z79.82 Long term (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; Z79.84 Long term (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 of oral hypoglycemic drugs
CPT/HCPCS: 71045; 80053; 83880; 85025; 93005; 93010; 96374; 96375; 99285-25; C9803; J2060; J2930; U0003

== ENCOUNTER 2020-05-07 21:11 | Emergency (ER) | payer MEDICARE ==
[~2020-05-07] VITALS: Ht 175.3 cm; Wt 101.6 kg
--- OUTSIDE RECORDS SUMMARY | 2020-05-07 21:14 | XMS ---
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 Care History Medical/Surgical 09/01/2019 [facility] - Patient is currently established with [facility]. If patient is seen in the ED during business hours. Please contact CHWs at [facility]. Care Recommendation: If this patient has had 5 or more Emergency Department visits in the last 12 months.\T\nbsp; Patient will require education on the scope and purpose of the ED as an acute care provider not a Primary Care Provider and should not be utilized for chronic conditions.\T\nbsp; These are guidelines and the provider should exercise clinical judgment when providing care. 02/27/2019 [facility] I called Serafin and made the recommendation for triple therapy inhaler. This change will put him on max therapy for his COPD. He also has a follow up on the with Doctor Nuno. 06/21/2018 [facility] - PER DISCUSSION WITH [facility] AT [facility]. PATIENT IS NON COMPLIANT WITH THE PROGRAM. - MULTIPLE ATTEMPTS OF EDUCATION HAS BEEN PROVIDED AND OTHER RESOURCES SUCH [employer] REFERRAL FOR PATIENT HAS BEEN MADE. - PATIENT WILL BE DISCHARGED FROM PULMONARY REHAB. Social 03/09/2017 [facility] PATIENT RECEIVES FOOD STAMPS THROUGH [employer] E.D. VISIT COUNT (12 MO.) 6 [facility] H. TOTAL 6 NOTE: Visits indicate total known visits. 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 (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 of oral hypoglycemic drugs 02/26/2020 00:14 [place] TYPE: Emergency COMPLAINT: - FEVER,SOB DIAGNOSES: - Other synthetic department supervisor (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 - Allergy status to other antibiotic agents - Allergy status to other drugs, medicaments and biological substances - Essential (primary) hypertension - Type 2 diabetes mellitus without complications - shelter (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 - Contact with [...] - Chronic obstructive pulmonary disease, unspecified - 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 (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 of oral hypoglycemic drugs - Type 2 diabetes mellitus with hypoglycemia without coma - Dependence on supplemental oxygen - Allergy status to other antibiotic agents - Nicotine dependence, unspecified, uncomplicated - 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 (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 - Other senior care (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 - Allergy status to other antibiotic agents 08/31/2019 21:25 [place] TYPE: Emergency COMPLAINT: - ABD PAIN DIAGNOSES: - Other senior care (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 - shelter (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 of oral hypoglycemic drugs - Allergy status to other drugs, medicaments and biological substances - Generalized abdominal pain - Allergy status to other antibiotic agents - Type 2 diabetes mellitus without complications - Chronic obstructive pulmonary disease, unspecified - shelter (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 - Dependence on supplemental oxygen - Essential (primary) hypertension - Nicotine dependence, unspecified, uncomplicated 06/23/2019 18:48 [place] TYPE: Emergency COMPLAINT: - SORE THROAT,BODY ACHES DIAGNOSES: - Type 2 diabetes mellitus without complications - Shortness of breath - Nicotine dependence, cigarettes, uncomplicated - Nicotine dependence, unspecified, uncomplicated - Other senior care (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 - Chronic obstructive pulmonary disease with (acute) exacerbation - Essential (primary) hypertension INPATIENT VISIT TRACKING (12 MO.) No inpatient visits to display in this time frame [email or web address]
[2020-05-08] MEDS ORDERED: PREDNISONE50 MG PO (00:30)
--- NOTE | 2020-05-08 23:52 | EKG ---
[facility] [address] [place] [address] Signed Sinus tachycardia with occasional premature ventricular complexes Left axis deviation Abnormal ECG When compared with ECG of 02-MAY-2020 02:01, No significant change was found Confirmed by DUSTIN CROSS MD ([id number]) on 05/08/2020 11:52:15 PM Electronically Signed By: DUSTIN CROSS MD 05/08/20 2352 PATIENT NAME: KEVIN DAUGHERTY Electrocardiogram DATE OF : 46 PHYSICIAN: DUSTIN CROSS MD REPORT #: [id number] REPORT IS CONFIDENTIAL AND NOT TO BE RELEASED WITHOUT AUTHORIZATION
== END 2020-05-08 01:40 | disposition home or self-care (01) ==
LOC: ED 21:11
DX: J44.1 Chronic obstructive pulmonary disease with (acute) exacerbation (principal); R00.0 Tachycardia, unspecified; E11.9 Type 2 diabetes mellitus without complications; I10 Essential (primary) hypertension; F17.200 Nicotine dependence, unspecified, uncomplicated; Z88.8 Allergy status to other drugs, medicaments and biological substances; Z88.1 Allergy status to other antibiotic agents; Z79.899 Other long term (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
CPT/HCPCS: 71045; 80053; 83735; 84484; 85025; 85379; 93005; 93010; 96374; 99285-25; J2060; J7121; J7512

== ENCOUNTER 2020-05-12 21:34 | Emergency (ER) | payer MEDICARE ==
[~2020-05-12] VITALS: Ht 175.3 cm; Wt 101.6 kg
[~2020-05-12 21:34] MED LIST changes: +PREDNISONE50 MG PO
--- OUTSIDE RECORDS SUMMARY | 2020-05-12 21:36 | XMS ---
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 Care History Social 03/09/2017 [facility] PATIENT RECEIVES FOOD STAMPS THROUGH [facility] Medical/Surgical 05/08/2020 [facility] Patient has wellness visit scheduled on 05/18/[address] Orantes. No medical records in [facility] for hospital visit on 05/02/2020 or 05/07/2020. 09/01/2019 [facility] - Patient is currently established with [facility]. If patient is seen in the ED during business hours. Please contact CHWs at [facility]. Care Recommendation: If this patient has had 5 or more Emergency Department visits in the last 12 months.\T\nbsp; Patient will require education on the scope and purpose of the ED as an acute care provider not a Primary Care Provider and should not be utilized for chronic conditions.\T\nbsp; These are guidelines and the provider should exercise clinical judgment when providing care. 02/27/2019 [facility] I called Serafin and made the recommendation for triple therapy inhaler. This change will put him on max therapy for his COPD. He also has a follow up on the with Doctor Nuno. Will VISIT COUNT (12 MO.) 7 [facility]. TOTAL 7 NOTE: Visits indicate total known visits. ED/UCC VISIT TRACKING (12 MO.) 05/12/2020 21:34 [facility] [place] [facility] [place] TYPE: Emergency COMPLAINT: - SHORTNESS OF BREATH, ANXIETY 05/07/2020 21:12 [facility] [place] TYPE: Emergency COMPLAINT: - THROAT PAIN DIAGNOSES: - Other prison (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 - Allergy status to other antibiotic agents - Chronic obstructive pulmonary disease with (acute) exacerbation - Nicotine dependence, unspecified, uncomplicated - Pain in left arm - Tachycardia, unspecified - Allergy status to other drugs, medicaments and biological substances - Type 2 diabetes mellitus without complications - Chronic obstructive pulmonary disease with (acute) exacerbation - Essential (primary) hypertension 05/02/2020 00:46 [facility] [place] TYPE: Emergency COMPLAINT: - SOB DIAGNOSES: - Unspecified convulsions - Essential (primary) hypertension - Chronic obstructive pulmonary disease with (acute) exacerbation - Allergy status to other antibiotic agents - Type 2 diabetes mellitus without complications - [facility] (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 - Nicotine dependence, unspecified, uncomplicated - Other 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 (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 - Shortness of breath - [facility] (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 of oral hypoglycemic drugs 02/26/2020 00:14 [facility] [place] TYPE: Emergency COMPLAINT: - FEVER,SOB DIAGNOSES: - Other prison (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 - Allergy status to other antibiotic agents - Allergy status to other drugs, medicaments and biological substances - Essential (primary) hypertension - Type 2 diabetes mellitus without complications - [facility] (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 - Contact with [...] - Chronic obstructive pulmonary disease, unspecified - [facility] (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 of oral hypoglycemic drugs - Type 2 diabetes mellitus with hypoglycemia without coma - Dependence on supplemental oxygen - Allergy status to other antibiotic agents - Nicotine dependence, unspecified, uncomplicated - [facility] (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 - Other terminal 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 (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 - Allergy status to other antibiotic agents 08/31/2019 21:25 [facility] [place] TYPE: Emergency COMPLAINT: - ABD PAIN DIAGNOSES: - Other terminal 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 (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 - meterman (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 of oral hypoglycemic drugs - Allergy status to other drugs, medicaments and biological substances - Generalized abdominal pain - Allergy status to other antibiotic agents - Type 2 diabetes mellitus without complications - Chronic obstructive pulmonary disease, unspecified - [facility] (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 - Dependence on supplemental oxygen - Essential (primary) hypertension - Nicotine dependence, unspecified, uncomplicated 06/23/2019 18:[address] [facility] [place] TYPE: Emergency COMPLAINT: - SORE THROAT,BODY ACHES DIAGNOSES: - Type 2 diabetes mellitus without complications - Shortness of breath - Nicotine dependence, cigarettes, uncomplicated - Nicotine dependence, unspecified, uncomplicated - Other prison (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 - Chronic obstructive pulmonary disease with (acute) exacerbation - Essential (primary) hypertension INPATIENT VISIT TRACKING (12 MO.) No inpatient visits to display in this time frame [email or web address]
[2020-05-12] MEDS ORDERED: PREDNISONE20 MG PO (22:03)
--- NOTE | 2020-05-13 13:36 | EKG ---
[facility] [address] [place] [address] Signed Sinus tachycardia with occasional premature ventricular complexes Left axis deviation Abnormal ECG When compared with ECG of 07-MAY-2020 21:32, No significant change was found Confirmed by SIGRID ARELLANO MD ([id number]) on 05/13/2020 1:36:09 PM Electronically Signed By: SIGRID ARELLANO MD 05/13/20 1336 PATIENT NAME: DAUGHERTYKEVIN RODRIGUEZ Electrocardiogram DATE OF : 46 PHYSICIAN: SIGRID ARELLANO MD REPORT #: [id number] REPORT IS CONFIDENTIAL AND NOT TO BE RELEASED WITHOUT AUTHORIZATION
== END 2020-05-12 23:50 | disposition home or self-care (01) ==
LOC: ED 21:34
DX: F41.9 Anxiety disorder, unspecified (principal); I10 Essential (primary) hypertension; E11.9 Type 2 diabetes mellitus without complications; J44.9 Chronic obstructive pulmonary disease, unspecified; F17.200 Nicotine dependence, unspecified, uncomplicated; Z99.81 Dependence on supplemental oxygen; Z88.8 Allergy status to other drugs, medicaments and biological substances; Z79.899 Other long term (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; Z79.84 Long term (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 of oral hypoglycemic drugs; Z79.82 Long term (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
CPT/HCPCS: 71045; 80053; 83735; 83880; 84484; 85025; 93005; 93010; 96374; 99285-25; J2060; J7030

== ENCOUNTER 2020-06-17 23:03 | Emergency (ER) | payer MEDICARE ==
[~2020-06-17] VITALS: Ht 175.3 cm; Wt 101.6 kg
--- OUTSIDE RECORDS SUMMARY | 2020-06-17 23:06 | XMS ---
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 Care History Social 03/09/2017 [facility] PATIENT RECEIVES FOOD STAMPS THROUGH [facility] Medical/Surgical 05/08/2020 [facility] Patient has wellness visit scheduled on 05/18/[address] Orantes. No medical records in [facility] for hospital visit on 05/02/2020 or 05/07/2020. 09/01/2019 [facility] - Patient is currently established with [facility]. If patient is seen in the ED during business hours. Please contact CHWs at [facility]. Care Recommendation: If this patient has had 5 or more Emergency Department visits in the last 12 months.\T\nbsp; Patient will require education on the scope and purpose of the ED as an acute care provider not a Primary Care Provider and should not be utilized for chronic conditions.\T\nbsp; These are guidelines and the provider should exercise clinical judgment when providing care. 02/27/2019 [facility] I called Serafin and made the recommendation for triple therapy inhaler. This change will put him on max therapy for his COPD. He also has a follow up on the with Doctor Nuno. Will VISIT COUNT (12 MO.) 8 [facility]. TOTAL 8 NOTE: Visits indicate total known visits. ED/UCC VISIT TRACKING (12 MO.) 06/17/2020 23:[address] [facility] TYPE: Emergency COMPLAINT: - DIFFICULTY BREATHING 05/12/2020 21:[address] [facility] [place] TYPE: Emergency COMPLAINT: - SHORTNESS OF BREATH, ANXIETY DIAGNOSES: - Shortness of breath - Essential (primary) hypertension - Anxiety disorder, unspecified - Other alf (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 - Nicotine dependence, unspecified, uncomplicated - remote sensing technologist (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 - Allergy status to other drugs, medicaments and biological substances - Chronic obstructive pulmonary disease, unspecified - Dependence on supplemental oxygen - snf (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 of oral hypoglycemic drugs - Type 2 diabetes mellitus without complications 05/07/2020 21:[address] [facility] [place] TYPE: Emergency COMPLAINT: - THROAT PAIN DIAGNOSES: - Other alf (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 - Allergy status to other antibiotic agents - Chronic obstructive pulmonary disease with (acute) exacerbation - Nicotine dependence, unspecified, uncomplicated - Pain in left arm - Tachycardia, unspecified - Allergy status to other drugs, medicaments and biological substances - Type 2 diabetes mellitus without complications - Chronic obstructive pulmonary disease with (acute) exacerbation - Essential (primary) hypertension 05/02/2020 00:46 [facility] [place] TYPE: Emergency COMPLAINT: - SOB DIAGNOSES: - Unspecified convulsions - Essential (primary) hypertension - Chronic obstructive pulmonary disease with (acute) exacerbation - Allergy status to other antibiotic agents - Type 2 diabetes mellitus without complications - snf (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 - Nicotine dependence, unspecified, uncomplicated - 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 - Shortness of breath - snf (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 of oral hypoglycemic drugs 02/26/2020 00:14 [facility] [place] TYPE: Emergency COMPLAINT: - FEVER,SOB DIAGNOSES: - Other alf (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 - Allergy status to other antibiotic agents - Allergy status to other drugs, medicaments and biological substances - Essential (primary) hypertension - Type 2 diabetes mellitus without complications - remote sensing technologist (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 - Contact with [...] - Chronic obstructive pulmonary disease, unspecified - snf (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 of oral hypoglycemic drugs - Type 2 diabetes mellitus with hypoglycemia without coma - Dependence on supplemental oxygen - Allergy status to other antibiotic agents - Nicotine dependence, unspecified, uncomplicated - remote sensing technologist (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 - Other alf (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 - Allergy status to other antibiotic agents 08/31/2019 21:25 [facility] [place] TYPE: Emergency COMPLAINT: - ABD PAIN DIAGNOSES: - Other alf (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 - snf (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 of oral hypoglycemic drugs - Allergy status to other drugs, medicaments and biological substances - Generalized abdominal pain - Allergy status to other antibiotic agents - Type 2 diabetes mellitus without complications - Chronic obstructive pulmonary disease, unspecified - snf (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 - Dependence on supplemental oxygen - Essential (primary) hypertension - Nicotine dependence, unspecified, uncomplicated 06/23/2019 18:48 [facility] [place] TYPE: Emergency COMPLAINT: - SORE THROAT,BODY ACHES DIAGNOSES: - Type 2 diabetes mellitus without complications - Shortness of breath - Nicotine dependence, cigarettes, uncomplicated - Nicotine dependence, unspecified, uncomplicated - 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
--- NOTE | 2020-06-18 20:08 | EKG ---
[facility] [address] [place] [address] Signed Sinus tachycardia with premature atrial complexes Left axis deviation Abnormal ECG When compared with ECG of 12-MAY-2020 21:45, premature ventricular complexes are no longer present premature atrial complexes are now present Confirmed by SUE MARTINEZ DO ([id number]) on 06/18/2020 8:08:33 PM Electronically Signed By: SUE MARTINEZ DO 06/18/20 2008 PATIENT NAME: DATKEVIN PEPE Electrocardiogram DATE OF : 46 PHYSICIAN: SUE MARTINEZ DO REPORT #: [id number] REPORT IS CONFIDENTIAL AND NOT TO BE RELEASED WITHOUT AUTHORIZATION
== END 2020-06-18 01:38 | disposition home or self-care (01) ==
LOC: ED 23:03
DX: J44.1 Chronic obstructive pulmonary disease with (acute) exacerbation (principal); I11.0 Hypertensive heart disease with heart failure; I50.9 Heart failure, unspecified; E11.9 Type 2 diabetes mellitus without complications; F17.200 Nicotine dependence, unspecified, uncomplicated; Z20.822 Contact with and (suspected) exposure to COVID-19; Z99.81 Dependence on supplemental oxygen; Z88.1 Allergy status to other antibiotic agents; Z88.8 Allergy status to other drugs, medicaments and biological substances; Z79.899 Other long term (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; Z79.84 Long term (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 of oral hypoglycemic drugs; Z79.82 Long term (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
CPT/HCPCS: 71045; 80053; 83735; 83880; 84484; 85025; 93005; 93010; 94640; 96374; 99285-25; C9803; J2930; U0003

== ENCOUNTER 2020-06-20 00:18 | Emergency (ER) | payer MEDICARE ==
[~2020-06-20] VITALS: Ht 175.3 cm; Wt 99.8 kg
--- OUTSIDE RECORDS SUMMARY | 2020-06-20 00:20 | XMS ---
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 Care History Social 03/09/2017 [facility] PATIENT RECEIVES FOOD STAMPS THROUGH [facility] Medical/Surgical 05/08/2020 [facility] Patient has wellness visit scheduled on 05/18/[address] Orantes. No medical records in [facility] for hospital visit on 05/02/2020 or 05/07/2020. 09/01/2019 [facility] - Patient is currently established with [facility]. If patient is seen in the ED during business hours. Please contact CHWs at [facility]. Care Recommendation: If this patient has had 5 or more Emergency Department visits in the last 12 months.\T\nbsp; Patient will require education on the scope and purpose of the ED as an acute care provider not a Primary Care Provider and should not be utilized for chronic conditions.\T\nbsp; These are guidelines and the provider should exercise clinical judgment when providing care. 02/27/2019 [facility] I called Serafin and made the recommendation for triple therapy inhaler. This change will put him on max therapy for his COPD. He also has a follow up on the with Doctor Nuno. Will VISIT COUNT (12 MO.) 9 [facility]. TOTAL 9 NOTE: Visits indicate total known visits. ED/UCC VISIT TRACKING (12 MO.) 06/20/2020 00:18 [facility] [place] TYPE: Emergency COMPLAINT: - HEAD AND THROAT PAIN 06/17/2020 23:03 [facility] [place] Emergency COMPLAINT: - DIFFICULTY BREATHING 05/12/2020 21:34 [facility] [place]: Emergency COMPLAINT: - SHORTNESS OF BREATH, ANXIETY DIAGNOSES: - Shortness of breath - Essential (primary) hypertension - Anxiety disorder, unspecified - Other correction (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 - Nicotine dependence, unspecified, uncomplicated - 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 (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 - Allergy status to other drugs, medicaments and biological substances - Chronic obstructive pulmonary disease, unspecified - Dependence on supplemental oxygen - 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 (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 of oral hypoglycemic drugs - Type 2 diabetes mellitus without complications 05/07/2020 21:12 [facility] [place] TYPE: Emergency COMPLAINT: - THROAT PAIN DIAGNOSES: - Other correction (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 - Allergy status to [...] Type 2 diabetes mellitus without complications - half-way (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 - Nicotine dependence, unspecified, uncomplicated - Other correction (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 - Shortness of breath - half-way (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 of oral hypoglycemic drugs 02/26/2020 00:14 [facility] [place] TYPE: Emergency COMPLAINT: - FEVER,SOB DIAGNOSES: - Other correction (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 - Allergy status to other antibiotic agents - Allergy status to other drugs, medicaments and biological substances - Essential (primary) hypertension - Type 2 diabetes mellitus without complications - 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 (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 - Contact with [...] - Chronic obstructive pulmonary disease, unspecified - half-way (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 of oral hypoglycemic drugs - Type 2 diabetes mellitus with hypoglycemia without coma - Dependence on supplemental oxygen - Allergy status to other antibiotic agents - Nicotine dependence, unspecified, uncomplicated - 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 (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 - Other terminal system operator (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 - Allergy status to other antibiotic agents 08/31/2019 21:25 [facility] [place] TYPE: Emergency COMPLAINT: - ABD PAIN DIAGNOSES: - Other correction (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 - 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 (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 of oral hypoglycemic drugs - Allergy status to other drugs, medicaments and biological substances - Generalized abdominal pain - Allergy status to other antibiotic agents - Type 2 diabetes mellitus without complications - Chronic obstructive pulmonary disease, unspecified - 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 (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 - Dependence on supplemental oxygen - Essential (primary) hypertension - Nicotine dependence, unspecified, uncomplicated 06/23/2019 18:48 [facility] [place] TYPE: Emergency COMPLAINT: - SORE THROAT,BODY ACHES DIAGNOSES: - Type 2 diabetes mellitus without complications - Shortness of breath - Nicotine dependence, cigarettes, uncomplicated - Nicotine dependence, unspecified, uncomplicated - Other terminal system operator (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 - Chronic obstructive pulmonary disease with (acute) exacerbation - Essential (primary) hypertension INPATIENT VISIT TRACKING (12 MO.) No inpatient visits to display in this time frame [email or web address]
[2020-06-20] MEDS ORDERED: HYDROXYZINE HCL25 MG PO (00:46)
== END 2020-06-20 01:19 | disposition home or self-care (01) ==
LOC: ED 00:18
DX: T88.1XXA Other complications following immunization, not elsewhere classified, initial encounter (principal); M79.10 Myalgia, unspecified site; T50.B95A Adverse effect of other viral vaccines, initial encounter; J44.9 Chronic obstructive pulmonary disease, unspecified; E11.9 Type 2 diabetes mellitus without complications; I10 Essential (primary) hypertension; Z99.81 Dependence on supplemental oxygen; F17.200 Nicotine dependence, unspecified, uncomplicated; Z88.8 Allergy status to other drugs, medicaments and biological substances; Z88.1 Allergy status to other antibiotic agents; Z79.899 Other long term (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; Z79.84 Long term (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 of oral hypoglycemic drugs
CPT/HCPCS: 99283

== ENCOUNTER 2020-09-24 14:47 | Emergency (ER) | payer MEDICARE ==
[~2020-09-24] VITALS: Ht 175.3 cm; Wt 99.8 kg
[~2020-09-24 14:47] MED LIST changes: +HYDROXYZINE HCL25 MG PO
--- OUTSIDE RECORDS SUMMARY | 2020-09-24 14:56 | XMS ---
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 Care History Social 03/09/2017 [facility] PATIENT RECEIVES FOOD STAMPS THROUGH [facility] Medical/Surgical 05/08/2020 [facility] Patient has wellness visit scheduled on 05/18/[address] Orantes. No medical records in [facility] for hospital visit on 05/02/2020 or 05/07/2020. 09/01/2019 [facility] - Patient is currently established with [facility]. If patient is seen in the ED during business hours. Please contact CHWs at [facility]. Care Recommendation: If this patient has [...] clinical judgment when providing care. 02/27/2019 [facility] I called Serafin and made the recommendation for triple therapy inhaler. This change will put him on max therapy for his COPD. He also has a follow up on the with Doctor Nuno. Will VISIT COUNT (12 MO.) 8 [facility]. TOTAL 8 NOTE: Visits indicate total known visits. ED/UCC VISIT TRACKING (12 MO.) 09/24/2020 14:47 [facility] [place] TYPE: Emergency COMPLAINT: - DIFFICULTY BREATHING 06/20/2020 00:18 [facility] [place] TYPE: Emergency COMPLAINT: - HEAD AND THROAT PAIN DIAGNOSES: - Dependence on supplemental oxygen - Other senior care (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 - Chronic obstructive pulmonary disease, unspecified - Other complications following immunization, not elsewhere classified, initial encounter - Essential (primary) hypertension - Allergy status to other antibiotic agents - Adverse effect of other viral vaccines, initial encounter - Allergy status to other drugs, medicaments and biological substances - Type 2 diabetes mellitus without complications - Myalgia, unspecified site - terminal make up operator (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 of oral hypoglycemic drugs - Nicotine dependence, unspecified, uncomplicated 06/17/2020 23:03 [facility] [place] TYPE: Emergency COMPLAINT: - DIFFICULTY BREATHING DIAGNOSES: - Allergy status to other drugs, medicaments and biological substances - intermediate (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 of oral hypoglycemic drugs - terminal make up operator (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 - Chronic obstructive pulmonary disease with (acute) exacerbation - Type 2 diabetes mellitus without complications - Shortness of breath - Dependence on supplemental oxygen - Nicotine dependence, unspecified, uncomplicated - Other tank terminal gauger (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 - Heart failure, unspecified - Allergy status to other antibiotic agents - Hypertensive heart disease with heart failure 05/12/2020 21:34 [facility] [place] TYPE: Emergency COMPLAINT: - SHORTNESS OF BREATH, ANXIETY DIAGNOSES: - Shortness of breath - Essential (primary) hypertension - Anxiety disorder, unspecified - Other tank terminal gauger (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 - Nicotine dependence, unspecified, uncomplicated - intermediate (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 - Allergy status to other drugs, medicaments and biological substances - Chronic obstructive pulmonary disease, unspecified - Dependence on supplemental oxygen - terminal make up operator (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 of oral hypoglycemic drugs - Type 2 diabetes mellitus without complications 05/07/2020 21:12 [facility] [place] TYPE: Emergency COMPLAINT: - THROAT PAIN DIAGNOSES: - Other senior care (current) [...] Type 2 diabetes mellitus without complications - intermediate (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 - Nicotine dependence, unspecified, uncomplicated - Other senior care (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 - Shortness of breath - terminal make up operator (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 of oral hypoglycemic drugs 02/26/2020 00:14 [facility] [place] TYPE: Emergency COMPLAINT: - FEVER,SOB DIAGNOSES: - Other senior care (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 - Allergy status to other antibiotic agents - Allergy status to other drugs, medicaments and biological substances - Essential (primary) hypertension - Type 2 diabetes mellitus without complications - terminal make up operator (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 - Contact with [...] - Chronic obstructive pulmonary disease, unspecified - intermediate (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 of oral hypoglycemic drugs - Type 2 diabetes mellitus with hypoglycemia without coma - Dependence on supplemental oxygen - Allergy status to other antibiotic agents - Nicotine dependence, unspecified, uncomplicated - terminal make up operator (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 - Other tank terminal gauger (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 - Allergy status to other antibiotic agents INPATIENT VISIT TRACKING (12 MO.) No inpatient visits to display in this time frame [email or web address]
[2020-09-24] MEDS ORDERED: RIFABUTIN150 MG PO (15:20)
== END 2020-09-24 16:54 | disposition home or self-care (01) ==
LOC: ED 14:47
DX: J44.9 Chronic obstructive pulmonary disease, unspecified (principal); E11.9 Type 2 diabetes mellitus without complications; I10 Essential (primary) hypertension; F17.200 Nicotine dependence, unspecified, uncomplicated; Z88.1 Allergy status to other antibiotic agents; Z88.8 Allergy status to other drugs, medicaments and biological substances; Z79.899 Other long term (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; Z79.84 Long term (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 of oral hypoglycemic drugs
CPT/HCPCS: 94640; 99284

== ENCOUNTER 2021-01-12 19:16 | Emergency (ER) | payer MEDICARE ==
[~2021-01-12] VITALS: Ht 175.3 cm; Wt 99.3 kg
--- OUTSIDE RECORDS SUMMARY | 2021-01-12 19:24 | XMS ---
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 Care History Medical/Surgical 05/08/2020 [facility] Patient has wellness visit scheduled on 05/18/[address] Orantes. No medical records in [facility] for hospital visit on 05/02/2020 or 05/07/2020. 09/01/2019 [facility] - Patient is currently established with [facility]. If patient is seen in the ED during business hours. Please contact CHWs at [facility]. Care Recommendation: If this patient has [...] follow up on the with Doctor Nuno. Social 03/09/2017 [facility] PATIENT RECEIVES FOOD STAMPS THROUGH [employer] [facility] NOTE: Visits indicate total known visits. ED/UCC VISIT TRACKING (12 MO.) 01/12/2021 19:16 [facility] 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 of oral hypoglycemic drugs - Shortness of breath - Nicotine dependence, unspecified, uncomplicated - Essential (primary) hypertension - Other exterminator helper termite (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 - Allergy status to other antibiotic agents 06/20/2020 00:18 [facility] [place] TYPE: Emergency COMPLAINT: - HEAD AND THROAT PAIN DIAGNOSES: - Dependence on supplemental oxygen - Other retirement (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 - Chronic obstructive pulmonary disease, unspecified - Other complications following immunization, not elsewhere classified, initial encounter - Essential (primary) hypertension - Allergy status to other antibiotic agents - Adverse effect of other viral vaccines, initial encounter - Allergy status to other drugs, medicaments and biological substances - Type 2 diabetes mellitus without complications - Myalgia, unspecified site - rat exterminator (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 [place] TYPE: Emergency COMPLAINT: - DIFFICULTY BREATHING DIAGNOSES: - Allergy status to other drugs, medicaments and biological substances - rat exterminator (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 of oral hypoglycemic drugs - retirement (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 - Chronic obstructive pulmonary disease with (acute) exacerbation - Type 2 diabetes mellitus without complications - Shortness of breath - Dependence on supplemental oxygen - Nicotine dependence, unspecified, uncomplicated - Other retirement (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 - Heart failure, unspecified - Allergy status to other antibiotic agents - Hypertensive heart disease with heart failure 05/12/2020 21:34 [facility] [place] TYPE: Emergency COMPLAINT: - SHORTNESS OF BREATH, ANXIETY DIAGNOSES: - Shortness of breath - Essential (primary) hypertension - Anxiety disorder, unspecified - Other exterminator helper termite (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 - Nicotine dependence, unspecified, uncomplicated - retirement (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 - Allergy status to other drugs, medicaments and biological substances - Chronic obstructive pulmonary disease, unspecified - Dependence on supplemental oxygen - retirement (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 of oral hypoglycemic drugs - Type 2 diabetes mellitus without complications 05/07/2020 21:12 [facility] TYPE: Emergency COMPLAINT: - THROAT PAIN DIAGNOSES: - Other exterminator helper termite (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 - Allergy status to [...] Type 2 diabetes mellitus without complications - rat exterminator (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 - Nicotine dependence, unspecified, uncomplicated - Other exterminator helper termite (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 - Shortness of breath - retirement (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 of oral hypoglycemic drugs 02/26/2020 00:14 [facility] [place] TYPE: Emergency COMPLAINT: - FEVER,SOB DIAGNOSES: - Other exterminator helper termite (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 - Allergy status to other antibiotic agents - Allergy status to other drugs, medicaments and biological substances - Essential (primary) hypertension - Type 2 diabetes mellitus without complications - retirement (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 - Contact with and (suspected) exposure to other viral communicable diseases - Allergy status to other antibiotic agents - Chronic obstructive pulmonary disease with (acute) exacerbation - Nicotine dependence, unspecified, uncomplicated - Allergy status to other drugs, medicaments and biological substances - Shortness of breath 01/14/2020 22:[address] [facility] [place] TYPE: Emergency COMPLAINT: - CHEST PAIN/SOB/BLOOD SUGAR ISSUE DIAGNOSES: - Type 2 diabetes mellitus with hypoglycemia without coma - Dizziness and giddiness - Essential (primary) hypertension - Chronic obstructive pulmonary disease, unspecified - retirement (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 of oral hypoglycemic drugs - Type 2 diabetes mellitus with hypoglycemia without coma - Dependence on supplemental oxygen - Allergy status to other antibiotic agents - Nicotine dependence, unspecified, uncomplicated - retirement (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 - Other exterminator helper termite (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 - Allergy status to other antibiotic agents INPATIENT VISIT TRACKING (12 MO.) No inpatient visits to display in this time frame [email or web address]
[2021-01-12] MEDS ORDERED: HYDROCODON-ACE1 EA10 PO (21:27)
== END 2021-01-12 21:35 | disposition home or self-care (01) ==
LOC: ED 19:16
DX: K63.89 Other specified diseases of intestine (principal); J44.9 Chronic obstructive pulmonary disease, unspecified; E11.9 Type 2 diabetes mellitus without complications; I10 Essential (primary) hypertension; F17.200 Nicotine dependence, unspecified, uncomplicated; Z88.1 Allergy status to other antibiotic agents; Z79.899 Other long term (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
CPT/HCPCS: 74177; 80053; 81001; 83690; 85025; 99284-25; Q9967

== ENCOUNTER 2021-05-19 19:36 | Emergency (ER) | payer MEDICARE ==
[~2021-05-19] VITALS: Ht 175.3 cm; Wt 99.3 kg
[~2021-05-19 19:36] MED LIST changes: +HYDROCODON-ACE1 EA10 PO
--- OUTSIDE RECORDS SUMMARY | 2021-05-19 19:38 | XMS ---
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 Orantes on 01/15/2021 Care History Social 03/09/2017 [facility] PATIENT RECEIVES FOOD STAMPS THROUGH [facility] Medical/Surgical 05/08/2020 [facility] Patient has wellness visit scheduled on 05/18/[address] Orantes. No medical records in [facility] for hospital visit on 05/02/2020 or 05/07/2020. 09/01/2019 [facility] - Patient is currently established with [facility]. If patient is seen in the ED during business hours. Please contact CHWs at [facility]. Care Recommendation: If this patient has had 5 or more Emergency Department visits in the last 12 months.\T\nbsp; Patient will require education on the scope and purpose of the ED as an acute care provider not a Primary Care Provider and should not be utilized for chronic conditions.\T\nbsp; These are guidelines and the provider should exercise clinical judgment when providing care. 02/27/2019 [facility] I called Serafin and made the recommendation for triple therapy inhaler. This change will put him on max therapy for his COPD. He also has a follow up on the with Doctor Donnie. Will VISIT COUNT (12 MO.) 5 [facility]. TOTAL 5 NOTE: Visits indicate total known visits. ED/UCC VISIT TRACKING (12 MO.) 05/19/2021 19:[address] [facility] [place] Emergency COMPLAINT: - SOB 01/12/2021 19:[address] [facility] [place] TYPE: Emergency COMPLAINT: - RT SIDE PAIN DIAGNOSES: - Nicotine dependence, unspecified, uncomplicated - Allergy status to other antibiotic agents - Other specified diseases of intestine - Chronic obstructive pulmonary disease, unspecified - Right lower quadrant pain - Essential (primary) hypertension - Other chcf (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 - Type 2 diabetes mellitus without complications 09/24/2020 14:[address] [facility] [place] TYPE: Emergency COMPLAINT: - DIFFICULTY BREATHING DIAGNOSES: - Chronic obstructive pulmonary disease, unspecified - Type 2 diabetes mellitus without complications - Allergy status to other drugs, medicaments and biological substances - penitentiary (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 of oral hypoglycemic drugs - Shortness of breath - Nicotine dependence, unspecified, uncomplicated - Essential (primary) hypertension - Other barrel drainer (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 - Allergy status to other antibiotic agents 06/20/2020 00:18 [facility] [place] TYPE: Emergency COMPLAINT: - HEAD AND THROAT PAIN DIAGNOSES: - Dependence on supplemental oxygen - Other barrel drainer (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 - Chronic obstructive pulmonary disease, unspecified - Other complications following immunization, not elsewhere classified, initial encounter - Essential (primary) hypertension - Allergy status to other antibiotic agents - Adverse effect of other viral vaccines, initial encounter - Allergy status to other drugs, medicaments and biological substances - Type 2 diabetes mellitus without complications - Myalgia, unspecified site - wood scaler (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 of oral hypoglycemic drugs - Nicotine dependence, unspecified, uncomplicated 06/17/2020 23:03 [facility] [place] TYPE: Emergency COMPLAINT: - DIFFICULTY BREATHING DIAGNOSES: - Allergy status to other drugs, medicaments and biological substances - wood scaler (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 of oral hypoglycemic drugs - wood scaler (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 - Chronic obstructive pulmonary disease with (acute) exacerbation - Type 2 diabetes mellitus without complications - Shortness of breath - Dependence on supplemental oxygen - Nicotine dependence, unspecified, uncomplicated - Other chcf (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 - Heart failure, unspecified - Allergy status to other antibiotic agents - Hypertensive heart disease with heart failure INPATIENT VISIT TRACKING (12 MO.) No inpatient visits to display in this time frame [id number]
[2021-05-19] MEDS ORDERED: [UNRECOGNIZED DRUG - OTHER] (21:35)
--- NOTE | 2021-05-20 07:20 | EKG ---
[facility] [address] [place] [address] Signed Sinus tachycardia with premature atrial complexes Left axis deviation Abnormal ECG When compared with ECG of 17-JUN-2020 23:16, No significant change was found Confirmed by DUSTIN CROSS MD ([id number]) on 05/20/2021 7:20:11 AM Electronically Signed By: DUSTIN CROSS MD 05/20/21 0720 PATIENT NAME: KEVIN DAUGHERTY Electrocardiogram DATE OF : 46 PHYSICIAN: DUSTIN CROSS MD REPORT #: [id number] REPORT IS CONFIDENTIAL AND NOT TO BE RELEASED WITHOUT AUTHORIZATION
== END 2021-05-19 22:05 | disposition home or self-care (01) ==
LOC: ED 19:36
DX: J44.1 Chronic obstructive pulmonary disease with (acute) exacerbation (principal); J44.9 Chronic obstructive pulmonary disease, unspecified; E11.9 Type 2 diabetes mellitus without complications; I10 Essential (primary) hypertension; F17.200 Nicotine dependence, unspecified, uncomplicated; Z88.0 Allergy status to penicillin; Z88.8 Allergy status to other drugs, medicaments and biological substances; Z79.51 Long term (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 of inhaled steroids; Z79.52 Long term (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 of systemic steroids; Z79.84 Long term (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 of oral hypoglycemic drugs; Z79.899 Other long term (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; Z20.822 Contact with and (suspected) exposure to COVID-19
CPT/HCPCS: 36415; 71045; 80053; 82803; 83880; 84484; 85025; 85379; 93005; 93010; 94640; 96374; 99285-25; C9803; J2930; U0003

== ENCOUNTER 2021-05-23 18:13 | Emergency (ER) | payer MEDICARE ==
[~2021-05-23] VITALS: Ht 175.3 cm; Wt 99.3 kg
[~2021-05-23 18:13] MED LIST changes: +[UNRECOGNIZED DRUG - OTHER]
--- OUTSIDE RECORDS SUMMARY | 2021-05-23 18:16 | XMS ---
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 Orantes on 01/15/2021 Care History Medical/Surgical 05/22/2021 [facility] Patient was seen by PCP Dr. Orantes on 05/20/2021 05/08/2020 [facility] Patient has wellness visit scheduled on 05/18/[address] Orantes. No medical records in [facility] for hospital visit on 05/02/2020 or 05/07/2020. 09/01/2019 [facility] - Patient is currently established with [facility]. If patient is seen in the ED during business hours. Please contact CHWs at [facility]. Care Recommendation: If this patient has had 5 or more Emergency Department visits in the last 12 months.\T\nbsp; Patient will require education on the scope and purpose of the ED as an acute care provider not a Primary Care Provider and should not be utilized for chronic conditions.\T\nbsp; These are guidelines and the provider should exercise clinical judgment when providing care. Social 03/09/2017 [facility] PATIENT RECEIVES FOOD STAMPS THROUGH [employer] E.D. VISIT COUNT (12 MO.) 6 [facility]. TOTAL 6 NOTE: Visits indicate total known visits. ED/UCC VISIT TRACKING (12 MO.) 05/23/2021 18:14 [facility] [place] TYPE: Emergency COMPLAINT: - SOB 05/19/2021 19:36 [facility] [place] TYPE: Emergency COMPLAINT: - SOB DIAGNOSES: - Other residential (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 - Chronic obstructive pulmonary disease, unspecified - nursing home (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 of systemic steroids - Allergy status to other drugs, medicaments and biological substances - Chronic obstructive pulmonary disease with (acute) exacerbation - Nicotine dependence, unspecified, uncomplicated - Essential (primary) hypertension - Type 2 diabetes mellitus without complications - Shortness of breath - 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 - Allergy status to penicillin - termite control representative (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 of inhaled steroids 01/12/2021 19:16 [facility] [place] TYPE: Emergency COMPLAINT: - RT SIDE PAIN DIAGNOSES: - Nicotine dependence, unspecified, uncomplicated - Allergy status to other antibiotic agents - Other specified diseases of intestine - Chronic obstructive pulmonary disease, unspecified - Right lower quadrant pain - Essential (primary) hypertension - Other terminal carman (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 - Type 2 diabetes mellitus without complications 09/24/2020 14:47 [facility] TYPE: Emergency COMPLAINT: - DIFFICULTY BREATHING DIAGNOSES: - Chronic obstructive pulmonary disease, unspecified - Type 2 diabetes mellitus without complications - Allergy status to other drugs, medicaments and biological substances - 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 - Shortness of breath - Nicotine dependence, unspecified, uncomplicated - Essential (primary) hypertension - Other terminal carman (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 - Allergy status to other antibiotic agents 06/20/2020 00:18 [facility] [place] TYPE: Emergency COMPLAINT: - HEAD AND THROAT PAIN DIAGNOSES: - Dependence on supplemental oxygen - Other terminal carman (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 - Chronic obstructive pulmonary disease, unspecified - Other complications following immunization, not elsewhere classified, initial encounter - Essential (primary) hypertension - Allergy status to other antibiotic agents - Adverse effect of other viral vaccines, initial encounter - Allergy status to other drugs, medicaments and biological substances - Type 2 diabetes mellitus without complications - Myalgia, unspecified site - 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 - Nicotine dependence, unspecified, uncomplicated 06/17/2020 23:03 [facility] TYPE: Emergency COMPLAINT: - DIFFICULTY BREATHING DIAGNOSES: - Allergy status to other drugs, medicaments and biological substances - 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 - nursing home (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 - Chronic obstructive pulmonary disease with (acute) exacerbation - Type 2 diabetes mellitus without complications - Shortness of breath - Dependence on supplemental oxygen - Nicotine dependence, unspecified, uncomplicated - Other residential (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 - Heart failure, unspecified - Allergy status to other antibiotic agents - Hypertensive heart disease with heart failure INPATIENT VISIT TRACKING (12 MO.) No inpatient visits to display in this time frame [email or web address]
[2021-05-23] MEDS ORDERED: CARBAMAZEPINE200 MG PO (18:33)
[2021-05-23] MEDS ORDERED: METHYLPREDNISOLO4 M1 PO (18:34)
--- NOTE | 2021-05-27 13:42 | EKG ---
[facility] [address] [place] [address] Signed Sinus tachycardia Left axis deviation Abnormal ECG When compared with ECG of 19-MAY-2021 19:45, premature atrial complexes are no longer present Confirmed by SIGRID ARELLANO MD ([id number]) on 05/27/2021 1:42:01 PM Electronically Signed By: SIGRID ARELLANO MD 05/27/21 1342 PATIENT NAME: KEVIN DAUGHERTY Electrocardiogram DATE OF : 46 PHYSICIAN: SIGRID ARELLANO MD REPORT #: [id number] REPORT IS CONFIDENTIAL AND NOT TO BE RELEASED WITHOUT AUTHORIZATION
== END 2021-05-23 21:44 | disposition home or self-care (01) ==
LOC: ED 18:13
DX: J06.9 Acute upper respiratory infection, unspecified (principal); R42 Dizziness and giddiness; J44.9 Chronic obstructive pulmonary disease, unspecified; E11.9 Type 2 diabetes mellitus without complications; I10 Essential (primary) hypertension; F17.200 Nicotine dependence, unspecified, uncomplicated; Z88.8 Allergy status to other drugs, medicaments and biological substances; Z79.899 Other long term (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; Z79.51 Long term (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 of inhaled steroids; Z79.52 Long term (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 of systemic steroids; Z79.84 Long term (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 of oral hypoglycemic drugs; Z20.822 Contact with and (suspected) exposure to COVID-19
CPT/HCPCS: 36415; 71045; 80048; 80156; 85025; 93005; 93010; 94640; 99285-25; C9803; U0003

== ENCOUNTER 2021-07-07 16:46 | Emergency (ER) | payer MEDICARE ==
[~2021-07-07] VITALS: Ht 175.3 cm; Wt 99.3 kg
[~2021-07-07 16:46] MED LIST changes: +CARBAMAZEPINE200 MG PO; +METHYLPREDNISOLO4 M1 PO
--- OUTSIDE RECORDS SUMMARY | 2021-07-07 16:48 | XMS ---
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 Orantes on 01/15/2021 Care History Social 03/09/2017 [facility] PATIENT RECEIVES FOOD STAMPS THROUGH [facility] Medical/Surgical 05/22/2021 [facility] Patient was seen by PCP Dr. Orantes on 05/20/2021 05/08/2020 [facility] Patient has wellness visit scheduled on 05/18/[address] Orantes. No medical records in [facility] for hospital visit on 05/02/2020 or 05/07/2020. 09/01/2019 [facility] - Patient is currently established with [facility]. If patient is seen in the ED during business hours. Please contact CHWs at [facility]. Care Recommendation: If this patient [...] care. E.D. VISIT COUNT (12 MO.) 5 [facility]. TOTAL 5 NOTE: Visits indicate total known visits. 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 - Nicotine dependence, unspecified, uncomplicated - termite technician (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 of inhaled steroids - [facility] (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 of oral hypoglycemic drugs - Dizziness and giddiness - Essential (primary) hypertension - Acute upper respiratory infection, unspecified - Allergy status to other drugs, medicaments and biological substances - Other residential (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 - Shortness of breath - Chronic obstructive pulmonary disease, unspecified - Type 2 diabetes mellitus without complications 05/19/2021 19:36 [facility] TYPE: Emergency COMPLAINT: - SOB DIAGNOSES: - Other residential (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 - Chronic obstructive pulmonary disease, unspecified - termite technician (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 of systemic steroids - Allergy status to other drugs, medicaments and biological substances - Chronic obstructive pulmonary disease with (acute) exacerbation - Nicotine dependence, unspecified, uncomplicated - Essential (primary) hypertension - Type 2 diabetes mellitus without complications - Shortness of breath - [facility] (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 of oral hypoglycemic drugs - Allergy status to penicillin - [facility] (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 of inhaled steroids 01/12/2021 19:16 [facility] TYPE: Emergency COMPLAINT: - RT SIDE PAIN DIAGNOSES: - Nicotine dependence, unspecified, uncomplicated - Allergy status to other antibiotic agents - Other specified diseases of intestine - Chronic obstructive pulmonary disease, unspecified - Right lower quadrant pain - Essential (primary) hypertension - Other residential (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 - Type 2 diabetes mellitus without complications 09/24/2020 14:47 [facility] TYPE: Emergency COMPLAINT: - DIFFICULTY BREATHING DIAGNOSES: - Chronic obstructive pulmonary disease, unspecified - Type 2 diabetes mellitus without complications - Allergy status to other drugs, medicaments and biological substances - termite technician (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 of oral hypoglycemic 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
[2021-07-07] MEDS ORDERED: PREDNISONE20 MG PO (19:21)
--- NOTE | 2021-07-07 21:02 | EKG ---
[facility] [address] [facility] [place] [address] Signed Sinus tachycardia with premature supraventricular complexes Left axis deviation Pulmonary disease pattern Abnormal ECG Confirmed by DUSTIN CROSS MD ([id number]) on 07/07/2021 9:01:54 PM Electronically Signed By: DUSTIN CROSS MD 07/07/212101 PATIENT NAME: KEVIN DAUGHERTY Electrocardiogram DATE OF : 46 PHYSICIAN: DUSTIN CROSS MD REPORT #: [id number] REPORT IS CONFIDENTIAL AND NOT TO BE RELEASED WITHOUT AUTHORIZATION
== END 2021-07-07 19:40 | disposition home or self-care (01) ==
LOC: ED 16:46
DX: J44.1 Chronic obstructive pulmonary disease with (acute) exacerbation (principal); E11.9 Type 2 diabetes mellitus without complications; I10 Essential (primary) hypertension; F17.200 Nicotine dependence, unspecified, uncomplicated; Z88.8 Allergy status to other drugs, medicaments and biological substances; Z88.1 Allergy status to other antibiotic agents; Z79.899 Other long term (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; Z79.52 Long term (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 of systemic steroids
CPT/HCPCS: 71045; 80053; 83735; 83880; 84484; 85025; 93005; 93010; 94640; 96374; 99285-25; J2930

== ENCOUNTER 2021-08-30 01:17 | Emergency (ER) | payer MEDICARE ==
[~2021-08-30] VITALS: Ht 175.3 cm; Wt 99.3 kg
--- OUTSIDE RECORDS SUMMARY | 2021-08-30 01:20 | XMS ---
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 - Has Care Guidelines CARE PROVIDERS DONNIE, [facility] Medicine 01/25/2018-Current [place] PHONE: [phone] [facility] Internal Medicine 09/01/2019-Current PHONE: Unknown Guidelines Source: [facility] Guidelines Date: 01/13/2021 Other Information: Patient has follow up visit with Dr. Orantes on 01/15/2021 Care History Social 03/09/2017 [facility] PATIENT RECEIVES FOOD STAMPS THROUGH [facility] Medical/Surgical 07/09/2021 [facility] Appropriate use of ED for SOB. 05/22/2021 [facility] Patient was seen by PCP Dr. Orantes on 05/20/2021 05/08/2020 [facility] Patient has wellness visit scheduled on 05/18/[address] Orantes. No medical records in [facility] for hospital visit on 05/02/2020 or 05/07/2020Leonora Solis VISIT COUNT (12 MO.) 6 [facility] [place] TOTAL 6 NOTE: Visits indicate total known visits. 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 - Essential (primary) hypertension - Allergy status to other drugs, medicaments and biological substances - Nicotine dependence, unspecified, uncomplicated - Allergy status to other antibiotic agents 05/23/2021 18:14 [facility] [place] TYPE: Emergency COMPLAINT: - SOB DIAGNOSES: - Contact with and (suspected) exposure to COVID-19 - detention (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 of systemic steroids - Nicotine dependence, unspecified, uncomplicated - detention (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 of inhaled steroids - medical terminologist (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 of oral hypoglycemic drugs - Dizziness and giddiness - Essential (primary) hypertension - Acute upper respiratory infection, unspecified - Allergy status to other drugs, medicaments and biological substances - Other snf (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 - Shortness of breath - Chronic obstructive pulmonary disease, unspecified - Type 2 diabetes mellitus without complications 05/19/2021 19:36 [facility] [place] TYPE: Emergency COMPLAINT: - SOB DIAGNOSES: - Other snf (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 - Chronic obstructive pulmonary disease, unspecified - detention (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 of systemic steroids - Allergy status to other drugs, medicaments and biological substances - Contact with and (suspected) exposure to COVID-19 - Chronic obstructive pulmonary disease with (acute) exacerbation - Nicotine dependence, unspecified, uncomplicated - Essential (primary) hypertension - Type 2 diabetes mellitus without complications - Shortness of breath - detention (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 of oral hypoglycemic drugs - Allergy status to penicillin - medical terminologist (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 of inhaled steroids 01/12/2021 19:16 [facility] TYPE: Emergency COMPLAINT: - RT SIDE PAIN DIAGNOSES: - Nicotine dependence, unspecified, uncomplicated - Allergy status to other antibiotic agents - Other specified diseases of intestine - Chronic obstructive pulmonary disease, unspecified - Right lower quadrant pain - Essential (primary) hypertension - 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 - Type 2 diabetes mellitus without complications 09/24/2020 14:47 [facility] [place] TYPE: Emergency COMPLAINT: - DIFFICULTY BREATHING DIAGNOSES: - Chronic obstructive pulmonary disease, unspecified - Type 2 diabetes mellitus without complications - Allergy status to other drugs, medicaments and biological substances - detention (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 of oral hypoglycemic drugs - Shortness of breath - Nicotine dependence, unspecified, uncomplicated - Essential (primary) hypertension - 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
[2021-08-30] MEDS ORDERED: medrol dose pack PO (03:08)
[2021-08-30] MEDS ORDERED: ZITHROMAX250 MG PO (03:08)
--- NOTE | 2021-08-30 21:19 | EKG ---
[facility] [address] [place] [address] Signed Sinus rhythm with occasional premature ventricular complexes and premature atrial complexes Left axis deviation Abnormal ECG No previous ECGs available Confirmed by DUSTIN CROSS MD ([id number]) on 08/30/2021 9:18:54 PM Electronically Signed By: DUSTIN CROSS MD 08/30/219 PATIENT NAME: DATKEVIN PEPE Electrocardiogram DATE OF : 46 PHYSICIAN: DUSTIN CROSS MD REPORT #: [id number] REPORT IS CONFIDENTIAL AND NOT TO BE RELEASED WITHOUT AUTHORIZATION
== END 2021-08-30 03:40 | disposition home or self-care (01) ==
LOC: ED 01:17
DX: J44.1 Chronic obstructive pulmonary disease with (acute) exacerbation (principal); E11.9 Type 2 diabetes mellitus without complications; I10 Essential (primary) hypertension; F17.200 Nicotine dependence, unspecified, uncomplicated; Z79.899 Other long term (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; Z79.52 Long term (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 of systemic steroids; Z79.51 Long term (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 of inhaled steroids; Z79.84 Long term (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 of oral hypoglycemic drugs; Z20.822 Contact with and (suspected) exposure to COVID-19
CPT/HCPCS: 36415; 71045; 80053; 82803; 83880; 84484; 85025; 87502; 93005; 93010; 94640; 96374; 99285-25; C9803; J2930; U0003

== ENCOUNTER 2021-10-25 17:46 | Inpatient (IN) | payer MEDICARE ==
[~2021-10-25] VITALS: Ht 175.3 cm; Wt 94.6 kg
[~2021-10-25 17:46] MED LIST changes: -JANUMET XR 50-1 EAC1 PO; +medrol dose pack PO
--- OUTSIDE RECORDS SUMMARY | 2021-10-25 17:48 | XMS ---
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 Orantes on 01/15/2021 Care History Medical/Surgical 07/09/2021 [facility] Appropriate use of ED for SOB. 05/22/2021 [facility] Patient was seen by PCP Dr. Orantes on 05/20/2021 05/08/2020 [facility] Patient has wellness visit scheduled on 05/18/[address] Orantes. No medical records in [facility] for hospital visit on 05/02/2020 or 05/07/2020. Social 03/09/2017 [facility] PATIENT RECE[facility]ES [facility] MO[facility] NOTE: Visits indicate total known visits. ED/UCC VISIT TRACKING (12 MO.) 10/25/2021 17:[facility] COMPLAINT: - SHOB 08/30/2021 01:17 [facility] [place] TYPE: Emergency COMPLAINT: - SHORTNESS OF BREATH DIAGNOSES: - Chronic obstructive pulmonary disease with (acute) exacerbation - intermission coordinator (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 of inhaled steroids - Type 2 diabetes mellitus without complications - Shortness of breath - longterm (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 of systemic steroids - Essential (primary) hypertension - intermission coordinator (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 of oral hypoglycemic drugs - Contact with and (suspected) exposure to COVID-19 - Nicotine dependence, unspecified, uncomplicated - Other snf (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 07/07/2021 16:47 [facility] [place] TYPE: Emergency COMPLAINT: - SHORTNESS OF BREATH DIAGNOSES: - Shortness of breath - Chronic obstructive pulmonary disease with (acute) exacerbation - longterm (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 of systemic steroids - Type 2 diabetes mellitus without complications - Other snf (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 - Essential (primary) hypertension - Allergy status to other drugs, medicaments and biological substances - Nicotine dependence, unspecified, uncomplicated - Allergy status to other antibiotic agents 05/23/2021 18:14 [facility] TYPE: Emergency COMPLAINT: - SOB DIAGNOSES: - Contact with and (suspected) exposure to COVID-19 - longterm (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 of systemic steroids - Nicotine dependence, unspecified, uncomplicated - longterm (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 of inhaled steroids - intermission coordinator (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 of oral hypoglycemic drugs - Dizziness and giddiness - Essential (primary) hypertension - Acute upper respiratory infection, unspecified - Allergy status to other drugs, medicaments and biological substances - Other long term care pharmacist (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 - Shortness of breath - Chronic obstructive pulmonary disease, unspecified - Type 2 diabetes mellitus without complications 05/19/2021 19:36 [facility] TYPE: Emergency COMPLAINT: - SOB DIAGNOSES: - Other snf (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 - Chronic obstructive pulmonary disease, unspecified - intermission coordinator (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 of systemic steroids - Allergy status to other drugs, medicaments and biological substances - Contact with and (suspected) exposure to COVID-19 - Chronic obstructive pulmonary disease with (acute) exacerbation - Nicotine dependence, unspecified, uncomplicated - Essential (primary) hypertension - Type 2 diabetes mellitus without complications - Shortness of breath - longterm (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 of oral hypoglycemic drugs - Allergy status to penicillin - longterm (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 of inhaled steroids 01/12/2021 19:16 [facility] TYPE: Emergency COMPLAINT: - RT SIDE PAIN DIAGNOSES: - Nicotine dependence, unspecified, uncomplicated - Allergy status to other antibiotic agents - Other specified diseases of intestine - Chronic obstructive pulmonary disease, unspecified - Right lower quadrant pain - Essential (primary) hypertension - Other long term care pharmacist (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 - Type 2 diabetes mellitus without complications INPATIENT VISIT TRACKING (12 MO.) No inpatient visits to display in this time frame [email or web address]
--- NOTE | 2021-10-26 00:33 | NUR ---
IV ALARMING, NOTED HARDNESS ADJACENT TO IV, PRIMARY RN IN ROOM. CPOX WASN'T READING, ADJUSTED THAT WELL. PRIMARY RN TO RESTART IV.
--- NOTE | 2021-10-26 01:53 | NUR ---
PT RESTING WITH EYES CLOSED , POSITIONED ON RIGHT SIDE. NAD
--- NOTE | 2021-10-26 02:01 | NUR ---
LATE ENTRY: REPORT TAKEN FROM DIGNA IN THE ED. PT RECIEVED TO FLOOR TO ROOM 114 WITH ISOLATION FOR COVID. PT WAS ABLE TO MOVE FROM GURNY TO BED. THIS INCREASED SOB. PT WAS GIVEN FOOD AND DRINK, CALL LIGHT IN REACH AND BST WITHIN REACH.
--- NOTE | 2021-10-26 04:35 | NUR ---
PT IS RESTING IN BED WITH EYES CLOSED, HOB ELEVATED AT 50%. SUPPLEMENTAL OXYGEN PER NC IN PLACE AT 4L/M.
--- NOTE | 2021-10-26 05:02 | NUR ---
PT RESTING IN BED,BECOMES SOB WITH ACTIVITY, URINAL AT BEDSIDE FOR ENERGY CONSERVATION. APPITITE WAS GOOD LAST NIGHT, CONSUMED SANDWITCH,PT IS EDENTULOUS AND HAS NO DENTURES. HOME CBG DEVISE ATTATCHED TO RIGHT UPPER ARM UNKNOWN LAST TIME DEVICE WAS PLACED. BG CHECKED WITH FACILITY MONITOR. SpO2 MAINTAINED GREATER THAN 94% ON 4L/M, PT DOES USE HOME OXYGEN AT 3L/M.PT HAS ANTIBOTICS THAT HE TAKES AT HOME AND WILL BRING THEM IN TODAY FOR PT USE.
--- NOTE | 2021-10-26 06:38 | EKG ---
[facility] [address] [place] [address] Signed Sinus rhythm with premature atrial complexes Left axis deviation Abnormal ECG When compared with ECG of 30-AUG-2021 01:25, premature ventricular complexes are no longer present Confirmed by DUSTIN CROSS MD ([id number]) on 10/26/2021 6:38:53 AM Electronically Signed By: DUSTIN CROSS MD 10/26/21 0638 PATIENT NAME: DATKEVIN Electrocardiogram DATE OF : 46 PHYSICIAN: DUSTIN CROSS MD REPORT #: [id number] REPORT IS CONFIDENTIAL AND NOT TO BE RELEASED WITHOUT AUTHORIZATION
--- NOTE | 2021-10-26 07:30 | NUR ---
SHIFT REPORT GIVEN TO THIS RN BY VERÓNICA BUNCH. PEDRO RESTING QUIETLY ON HIS RIGHT SIDE IN BED, EYES CLOSED, RESPIRATIONS ARE REGULAR AND EVEN, AND CALL LIGHT IS IN REACH. PATIENT HAS NO CURRENT CARE NEEDS AT THIS TIME.
--- NOTE | 2021-10-26 08:00 | NUR ---
PT IN BED RESTING. WARM WASH CLOTH GIVEN. SHOWER/ BED BATH OFFERED. PT SAID MAYBE LATER. NO OTHER NEEDS AT THIS TIME. CALL LIGHT IN REACH.
--- NOTE | 2021-10-26 08:50 | NUR ---
THIS RN IN TO SEE PATIENT. AM MEDS GIVEN. THIS RN SET PATIENT UP FOR BREAKFAST AND HIS TRAY HAS ARRIVED. AM ASSESSMENT COMPLETE. PATIENT DENIES PAIN AND NAUSEA. PATIENT DENIES ANY OTHER NEEDS AT THIS TIME. PATIENT AWAITING HIS TO SHOW UP WITH HIS TB MEDS. CALL LIGHT IS IN REACH. PATIENT REMAINS IN RESPIRATORY ISOLATION.
--- NOTE | 2021-10-26 10:38 | NUR ---
PATIENT'S REMDESIVIR UP AND RUNNING NOW. PATIENT DENIES ANY OTHER NEEDS AT THIS TIME. CALL LIGHT IS IN REACH.
[2021-10-26] MEDS ORDERED: GLIPIZIDE ER10 MG PO (11:43)
[2021-10-26] MEDS ORDERED: ROPINIROLE HCL1 MG PO (11:48)
[2021-10-26] MEDS ORDERED: ROSUVASTATIN CA40 MG PO (11:51)
[2021-10-26] MEDS ORDERED: JANUMET XR 50-1 EAC1 PO (12:15)
[2021-10-26] MEDS ORDERED: ADULT LOW DOSE81 MG PO (12:16)
--- NOTE | 2021-10-26 13:00 | NUR ---
THIS RN IN TO SET PATIENT UP FOR LUNCH. PATIENT'S URINAL EMPTIED FOR 100MLS. PATIENT HAS NO OTHER CARE NEEDS AT THIS TIME. CALL LIGHT IS IN REACH.
--- NOTE | 2021-10-26 13:40 | NUR ---
PER JEAN PIERRE HALL PT IN BED RESTING. URINAL EMPTY. FOOD TRAY THROWN AWAY. PT WATER WAS ALREADY REFRESHED. CALL LIGHT WITHIN REACH. NO FURTHER NEEDS AT THIS TIME.
--- NOTE | 2021-10-26 14:21 | NUR ---
PATIENT CALLED WANTING ANOTHER NAKUL BETO. THIS WAS TAKEN TO PATIENT BY THIS RN WITH A BEATRIZ ROSEN WELL. PATIENT DENIED ANY OTHER CARE NEEDS AT THIS TIME. CALL LIGHT IN REACH. PATIENT REMAINS IN RESPIRATORY ISOLATION.
--- NOTE | 2021-10-26 14:33 | NUR ---
Medications reconciled using pharmacy records and chart notes from PCP Dr Orantes. Patient will be using his own ethambutol, rifabutin and azithromycin
--- NOTE | 2021-10-26 15:46 | NUR ---
PATIENT CALLED HAVING 5/10 FARR. THIS RN TOOK PATIENT SOME PO TYLENOL. PATIENT DENIES ANY OTHER CARE NEEDS AT THIS TIME. CALL LIGHT IS IN REACH AND PATIENT REMAINS IN ISOLATION.
--- NOTE | 2021-10-26 17:41 | NUR ---
THIS RN IN TO SEE PATIENT. PATIENT'S FARR IS GONE. PATIENT ATE 100% OF HIS DINNER. PATIENT DENIES ANY CARE NEEDS AT THIS TIME. CALL LIGHT IS IN REACH.
--- NOTE | 2021-10-26 18:51 | NUR ---
PT CALL LIGHT ON. PT STATES "WHEN CAN I HAVE ONE OF THOSE PILLS." THIS RN TO ROOM. PT REQUESTS TOBIAS VILLALTA. SEE MAR FOR MEDICATION GIVEN. PT ALSO REQUESTS COFFEE. 1/3 CUP PROVIDED FOR SAFETY PT HAS BEEN SPILLING COFFEE. PT DENIES ADDITIONAL REQEUSTS OR COMPLAINTS. CALL LIGHT WITHIN REACH. PTS PRIMARY RN UPDATED.
--- NOTE | 2021-10-26 19:25 | NUR ---
REPORT RECEIVED BRIDGET WALLACE RN. ASSUMED CARE OF PATIENT. PATIENT IS CURRENTLY TALKING ON PHONE WITH FAMILY. PATIENT IS COVID POSITIVE REMAINS ON CHRONIC 3 LITERS O2.
--- NOTE | 2021-10-26 20:31 | NUR ---
DISCUSSED WITH DR CROSS PT WANTING HIS HOME ANXIETY MEDICATION, VISTARIL. ORDER RECEIVED. PT AWARE.
--- NOTE | 2021-10-26 21:36 | NUR ---
PATIENT ASSESSMENT IS COMPLETE. PATIENT IS EXTREMELY TALKATIVE, HIS BASELINE SPEECH IS SOMEWHAT GARBLED TOGETHER AND HARD TO UNDERSTAND AT TIMES BUT PATIENT IS ALERT AND ORIENTED [employer] APPORPRIATE. PATIENT BEDTIME GLUCOSE WAS 127 DOES NEED INSULIN, PATIENT WAS GIVEN HIS SCHEDLUED MEDS TO INCLUDE A VISTARIL THAT IS PRN FOR ANXIETY, PER PATIENT'S REQUEST. PATIENT HAS BEEN USING URINAL AT BEDISDE TO VOID BY SELF. ENCOURAGE PT TO DRINK FLUIDS URINE APPEARS DARK. PT REMAINS ON 3 L O2 VIA NC, HE IS CHRONICALLY ON THIS.
--- NOTE | 2021-10-26 22:50 | NUR ---
PT IS ON HIS CALL LIGHT. ANSWERED FROM NURSE STATION. PATIENT IS ASKING "WHAT ROOM AM I IN? MY FORGOT AND NEEDS TO KNOW." PATIENT INFORMED HE IS IN ROOM 114. DENIES NEEDING ANYTHING AT THIS TIME.
--- NOTE | 2021-10-27 01:11 | NUR ---
IN ROOM TO CHANGE TELE BATTERY FOR PATIENT'S CONTINUOUS OXIMETRY. PATIENT IS LYING ON HIS LEFT SIDE ASLEEP, REMAINS ON HIS CHRONIC O2 AT 3 LITERS, SAT IS 97%. PT HAS VOIDED, URINAL EMPTIED. CALL LIGHT IN REACH.
--- NOTE | 2021-10-27 02:56 | NUR ---
CHECKED IN ON PATIENT. HE IS RESTING ON HIS BACK, CAN BE HEARD SNORING WITH MOUTH SLIGHTLY OPENED, RR 22. NONLABORED. REMAINS ON HIS CHRONIC 3 L O2 VIA NC,SAT 94%. HOB ELEVATED. CALL LIGHT IN REACH.
--- NOTE | 2021-10-27 06:49 | NUR ---
PATIENT ASLEEP WHEN THIS RN WAS ATTEMPTING ASSESSMENT. PATIENT DROWSY BUT AWKENS AND MUMBLES. 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 ASKING FOR WATER. COMPLIED WITH REQUEST. ASSESSMENT COMPLETED.
--- NOTE | 2021-10-27 07:05 | NUR ---
FRESH ICE WATER PROVIDED.
--- NOTE | 2021-10-27 07:30 | NUR ---
THIS RN RECEIVED SHIFT REPORT FROM VERÓNICA BEE. PATIENT RESTING QUIETLY ON HIS RIGHT SIDE IN BED, EYES CLOSED, RESPIRATIONS ARE REGULAR AND EVEN, O2 SATS=92% ON 3L/NC, AND CALL LIGHT IS IN REACH. PATIENT HAS NO CURRENT CARE NEEDS AT THIS TIME.
[2021-10-27] MEDS ORDERED: BENZONATATE100 MG PO (10:22)
--- NOTE | 2021-10-27 10:50 | NUR ---
THIS RN IN TO SEE PATIENT. NICOTINE BETO GIVEN PATIENT HAD REQUESTED, ALONG WITH SOME VISTARIL FOR ITCHY FEELING ALONG WITH HIS OTHER AM MEDS. VS ARE STABLE AND PATIENT IS EATING WELL. AM ASSESSMENT COMPLETE. CALL LIGHT IN REACH. PATIENT DENIES ANY OTHER CARE NEEDS AT THIS TIME.
--- NOTE | 2021-10-27 11:16 | NUR ---
I was albe to visit with patient's Palak Aguilar this morning regarding Nazario's discharge plan. Per Palak, both Nazario and herself feel that it is safe for Nazario to be discharged to home with her. Palak states that she is comfortable with the plan for Nazario to return home and that this is their preferrance. She also states that they are able to provide for his needs in the home and that they have an adult son in the home who can help with the home care needs. Palak denies food insecurity, inability to pay bills, or obtain medications. Paalk also states that their son can pick Nazario up from the hospital if it is after 3:00 p.m., as her son works until 3:00. This information has been shared with Nazario's primary nurse and the charge nurse on the medical floor.
--- NOTE | 2021-10-27 11:25 | NUR ---
THIS RN CALLED PATIENT'S ELVA DAUGHERTY AND INFORMED HER THE PATIENT IS READY TO COME HOME. ELVA INFORMED THIS RN THAT THE PATIENT'S SON GETS OFF WORK AT 3:30PM AND SHE WILL CONTACT HIM VIA EMAIL TO LET THE SONE KNOW HE NEEDS TO FILM LIBRARY CLERK THE PATIENT. SON CANNOT TAKE PHONE CALLS AT WORK. THIS RN INFORMED ELVA THAT HER SON NEEDS TO PARK AROUND BACK OF THE HOSPITAL, BACK BEHIND THE AMBULANCE BAY AND THEN CALL INTO THE HOSPITAL TO LET US KNOW HE IS THERE AND WE WILL BRING THE PATIENT OUT TO SON'S CAR. ELVA WILL CALL BACK WHEN SHE HAS AN ETA FOR THE SON'S ARRIVAL.
--- NOTE | 2021-10-27 12:04 | NUR ---
THIS RN IN TO SEE PATIENT. PATIENT NEEDED NO LUNCH INSULIN COVERAGE. THIS RN WENT OVER DC, MEDICATION, AND F/U INSTRUCTIONS WITH THE PATIENT AND PATIENT VERBALIZED UNDERSTANDING. RAC IV DC'D INTACT. PATIENT'S LUNCH IS COMING AND PATIENT HAD NO OTHER CARE NEEDS FROM THIS RN AT THIS TIME. CALL LIGHT IS IN REACH.
--- NOTE | 2021-10-27 12:56 | NUR ---
PATIENT CALLED FOR A NICOTINE BETO WHICH THIS RN TOOK TO PATIENT. PATIENT HAS NO OTHER CARE REQUESTS AT THIS TIME. CALL LIGHT IS IN REACH.
--- NOTE | 2021-10-27 14:45 | NUR ---
PT VITALS TAKEM & DOCUMENTED. SAT PT AT EDGE OF BED TO CHANGE HIS CLOTHES BILL READY WHEN HIS SON COMES TO PICK HIM UP FOR D/C. PT DID MOST OFHIS DRESSING INDEPENDENTLY W/MINIMAL ASSISTANCE FROM THIS CNA2. PT BELONGINGS WERE PLACED IN PT BAG & READY TO GO. PT AMBULATED TO CHAIR W/STBY/0NE PERSON ASSIST FROM RN OR MYSELF. PT USED 3LNC WHILE TRANSFERRING AND NO DESATTING OCCURED. PT PRESENTS SLIGHTLY WEAK BUT IS STEADY. HE STATED HE USES A WALKER AT HOME. PT WAS INSTRUCTED BY RN & CNA2 TO USE CALL LIGHT WHEN/IF HE NEEDED TO GET UP. PT IS IN RECLINED POSITION RESTING COMFORTABLY WATCHING TV, CALL LIGHT IN LAP. BELONGINGS NEXT TO HIM W/IN REACH.
--- NOTE | 2021-10-27 15:15 | NUR ---
PATIENT HAS ALREADY RECEIVED ALL HIS DC INSTRUCTIONS AND IV'S HAVE BEEN PULLED INTACT. VS STABLE AND PORTABLE 3L/NC IN PLACE. COURT REGISTRY OFFICER'S TAKING PATIENT OUT TO HIS SON AND WHO WILL BE BE TAKING THE PATIENT HOME.
== END 2021-10-27 15:15 | disposition home or self-care (01) | DRG 177 ==
LOC: ED 17:46 → MS 20:44
PROVIDERS: ADMIT Internal Medicine; ATTEND Internal Medicine
PROC: 8E0ZXY6 Isolation (ICD-10-PCS; principal; 2021-10-25)
PROC: XW033E5 Introduction of Remdesivir Anti-infective into Peripheral Vein, Percutaneous Approach, New Technology Group 5 (ICD-10-PCS; 2021-10-25)
PROC: 3E0DX3Z Introduction of Anti-inflammatory into Mouth and Pharynx, External Approach (ICD-10-PCS; 2021-10-26)
DX: U07.1 COVID-19 (principal); J96.21 Acute and chronic respiratory failure with hypoxia; A31.0 Pulmonary mycobacterial infection; J44.9 Chronic obstructive pulmonary disease, unspecified; Z99.81 Dependence on supplemental oxygen; G40.909 Epilepsy, unspecified, not intractable, without status epilepticus; E11.9 Type 2 diabetes mellitus without complications; Z88.1 Allergy status to other antibiotic agents; Z88.8 Allergy status to other drugs, medicaments and biological substances; I10 Essential (primary) hypertension; Z98.890 Other specified postprocedural states; F17.200 Nicotine dependence, unspecified, uncomplicated; Z79.899 Other long term (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; Z79.84 Long term (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 of oral hypoglycemic drugs; Z90.49 Acquired absence of other specified parts of digestive tract
CPT/HCPCS: 36415; 71045; 80053; 82803; 83735; 85025; 87502; 93005; 93010; 94640; 94760; 94762; 99285-25; A9270; C9803; J0248; J1650; J1815; J3475; J7050; J8540; Q0177; U0003

== ENCOUNTER 2021-11-02 14:51 | Emergency (ER) | payer MEDICARE ==
[~2021-11-02] VITALS: Ht 175.3 cm; Wt 94.7 kg
[~2021-11-02 14:51] MED LIST changes: +ADULT LOW DOSE81 MG PO; +BENZONATATE100 MG PO; +GLIPIZIDE ER10 MG PO; +JANUMET XR 50-1 EAC1 PO; +ROSUVASTATIN CA40 MG PO
--- OUTSIDE RECORDS SUMMARY | 2021-11-02 14:54 | XMS ---
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 Orantes on 01/15/2021 Care History Medical/Surgical 07/09/2021 [facility] Appropriate use of ED for SOB. 05/22/2021 [facility] Patient was seen by PCP Dr. Orantes on 05/20/2021 05/08/2020 [facility] Patient has wellness visit scheduled on 05/18/[address] Orantes. No medical records in [facility] for hospital visit on 05/02/2020 or 05/07/2020. Social 03/09/2017 [facility] PATIENT RECEIVES FOOD STAMPS THROUGH [facility] VISIT COUNT (12 MO.) 7 [facility]3][place]ora Bradley TOTAL 7 NOTE: Visits indicate total known visits. ED/UCC VISIT TRACKING (12 MO.) [facility] COMPLAINT: - COUGH 10/25/2021 17:47 [facility] [place] TYPE: Emergency COMPLAINT: - SHOB 08/30/2021 01:17 [facility] [place] TYPE: Emergency COMPLAINT: - SHORTNESS OF BREATH DIAGNOSES: - Chronic obstructive pulmonary disease with (acute) exacerbation - exterminator helper termite (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 of inhaled steroids - Type 2 diabetes mellitus without complications - Shortness of breath - exterminator helper termite (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 of systemic steroids - Essential (primary) hypertension - exterminator helper termite (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 of oral hypoglycemic drugs - Contact with and (suspected) exposure to COVID-19 - Nicotine dependence, unspecified, uncomplicated - Other termite treater helper (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 07/07/2021 16:47 [facility] [place] TYPE: Emergency COMPLAINT: - SHORTNESS OF BREATH DIAGNOSES: - Shortness of breath - Chronic obstructive pulmonary disease with (acute) exacerbation - half-way (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 of systemic steroids - Type 2 diabetes mellitus without complications - Other termite treater helper (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 - Essential (primary) hypertension - Allergy status to other drugs, medicaments and biological substances - Nicotine dependence, unspecified, uncomplicated - Allergy status to other antibiotic agents 05/23/2021 18:14 [facility] [place] TYPE: Emergency COMPLAINT: - SOB DIAGNOSES: - Contact with and (suspected) exposure to COVID-19 - exterminator helper termite (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 of systemic steroids - Nicotine dependence, unspecified, uncomplicated - half-way (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 of inhaled steroids - half-way (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 of oral hypoglycemic drugs - Dizziness and giddiness - Essential (primary) hypertension - Acute upper respiratory infection, unspecified - Allergy status to other drugs, medicaments and biological substances - Other fdc (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 - Shortness of breath - Chronic obstructive pulmonary disease, unspecified - Type 2 diabetes mellitus without complications 05/19/2021 19:36 [facility] TYPE: Emergency COMPLAINT: - SOB DIAGNOSES: - Other termite treater helper (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 - Chronic obstructive pulmonary disease, unspecified - half-way (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 of systemic steroids - Allergy status to other drugs, medicaments and biological substances - Contact with and (suspected) exposure to COVID-19 - Chronic obstructive pulmonary disease with (acute) exacerbation - Nicotine dependence, unspecified, uncomplicated - Essential (primary) hypertension - Type 2 diabetes mellitus without complications - Shortness of breath - exterminator helper termite (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 of oral hypoglycemic drugs - Allergy status to penicillin - half-way (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 of inhaled steroids 01/12/2021 19:16 [facility] TYPE: Emergency COMPLAINT: - RT SIDE PAIN DIAGNOSES: - Nicotine dependence, unspecified, uncomplicated - Allergy status to other antibiotic agents - Other specified diseases of intestine - Chronic obstructive pulmonary disease, unspecified - Right lower quadrant pain - Essential (primary) hypertension - Other fdc (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 - Type 2 diabetes mellitus without complications INPATIENT VISIT TRACKING (12 MO.) 10/25/2021 20:44 [facility] [place] TYPE: Medical Surgical COMPLAINT: - ACUTE HYPOXIC RESPIRATORY FAILURE, COVID 19 DIAGNOSES: - Dependence on supplemental oxygen - half-way (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 of oral hypoglycemic drugs - Pulmonary mycobacterial infection - Allergy status to other antibiotic agents - exterminator helper termite (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 of oral hypoglycemic drugs - Acquired absence of other specified parts of digestive tract - Acute and chronic respiratory failure with hypoxia - Allergy status to other drugs, medicaments and biological substances - Allergy status to other drugs, medicaments and biological substances - Essential (primary) hypertension - Other specified postprocedural states - Type 2 diabetes mellitus without complications - Essential (primary) hypertension - Acquired absence of other specified parts of digestive tract - COVID-19 - Type 2 diabetes mellitus without complications - Epilepsy, unspecified, not intractable, without status epilepticus - Nicotine dependence, unspecified, uncomplicated - Chronic obstructive pulmonary disease, unspecified - Allergy status to other antibiotic agents - Other fdc (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 - Chronic obstructive pulmonary disease, unspecified - Dependence on supplemental oxygen - Nicotine dependence, unspecified, uncomplicated - Other fdc (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 - Pulmonary mycobacterial infection - Acute and chronic respiratory failure with hypoxia - Other specified postprocedural states - Epilepsy, unspecified, not intractable, without status epilepticus [id number]
[2021-11-02] MEDS ORDERED: DECADRON6 MG PO (18:50)
== END 2021-11-02 19:33 | disposition home or self-care (01) ==
LOC: ED 14:51
DX: J44.1 Chronic obstructive pulmonary disease with (acute) exacerbation (principal); E11.9 Type 2 diabetes mellitus without complications; I10 Essential (primary) hypertension; Z88.1 Allergy status to other antibiotic agents; F17.200 Nicotine dependence, unspecified, uncomplicated; Z88.8 Allergy status to other drugs, medicaments and biological substances; Z79.899 Other long term (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; Z79.82 Long term (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
CPT/HCPCS: 94640; J1100

== ENCOUNTER 2022-01-15 16:05 | Emergency (ER) | payer MEDICARE ==
[~2022-01-15] VITALS: Ht 175.3 cm; Wt 94.7 kg
[~2022-01-15 16:05] MED LIST changes: +DECADRON6 MG PO
--- OUTSIDE RECORDS SUMMARY | 2022-01-15 16:12 | XMS ---
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 Medicine 01/25/2018-Current [employer] PHONE: [phone] [facility] Internal Medicine 09/01/2019-Current PHONE: Unknown Guidelines Source: [facility] Guidelines Date: 01/13/2021 Other Information: Patient has follow up visit with Dr. Orantes on 01/15/2021 Care History Social 03/09/2017 [facility] PATIENT RECEIVES FOOD STAMPS THROUGH [facility] Medical/Surgical 07/09/2021 [facility] Appropriate use of ED for SOB. 05/22/2021 [facility] Patient was seen by PCP Dr. Orantes on 05/20/2021 05/08/2020 [facility] Patient has wellness visit scheduled on 05/18/[address] Orantes. No medical records in [facility] for hospital visit on 05/02/2020 or 05/07/2020Leonora Solis VISIT COUNT (12 MO.) 7 [facility] TOTAL 7 NOTE: Visits indicate total known visits. ED/UCC VISIT TRACKING (12 MO.) 01/15/2022 16:05 [facility] TYPE: Emergency COMPLAINT: - SORE THROAT 11/02/2021 14:52 [facility] TYPE: Emergency COMPLAINT: - COUGH DIAGNOSES: - Essential (primary) hypertension - penitentiary (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 - Nicotine dependence, unspecified, uncomplicated - Allergy status to other drugs, medicaments and biological substances - Other salvage determiner (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 - Allergy status to other antibiotic agents - Chronic obstructive pulmonary disease with (acute) exacerbation - Type 2 diabetes mellitus without complications - Shortness of breath 10/25/2021 17:47 [facility] TYPE: Emergency COMPLAINT: - SHOB 08/30/2021 01:17 [facility] [place] TYPE: Emergency COMPLAINT: - SHORTNESS OF BREATH DIAGNOSES: - Other nursing home (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 - Chronic obstructive pulmonary disease with (acute) exacerbation - Contact with and (suspected) exposure to COVID-19 - Essential (primary) hypertension - Shortness of breath - terminal 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 (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 of inhaled steroids - Nicotine dependence, unspecified, uncomplicated - terminal 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 (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 of oral hypoglycemic drugs - terminal 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 (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 of systemic steroids - Type 2 diabetes mellitus without complications 07/07/2021 16:47 [facility] TYPE: Emergency COMPLAINT: - SHORTNESS OF BREATH DIAGNOSES: - Shortness of breath - Nicotine dependence, unspecified, uncomplicated - Essential (primary) hypertension - Type 2 diabetes mellitus without complications - Chronic obstructive pulmonary disease with (acute) exacerbation - Allergy status to other antibiotic agents - Allergy status to other drugs, medicaments and biological substances - Other salvage determiner (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 - penitentiary (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 of systemic steroids 05/23/2021 18:14 [facility] TYPE: Emergency COMPLAINT: - SOB DIAGNOSES: - Other salvage determiner (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 - Contact with and (suspected) exposure to COVID-19 - Acute upper respiratory infection, unspecified - Dizziness and giddiness - Type 2 diabetes mellitus without complications - penitentiary (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 of inhaled steroids - Shortness of breath - penitentiary (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 of systemic steroids - Allergy status to other drugs, medicaments and biological substances - Essential (primary) hypertension - penitentiary (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 of oral hypoglycemic drugs - Chronic obstructive pulmonary disease, unspecified - Nicotine dependence, unspecified, uncomplicated 05/19/2021 19:36 [facility] TYPE: Emergency COMPLAINT: - SOB DIAGNOSES: - Shortness of breath - Other salvage determiner (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 - Essential (primary) hypertension - Chronic obstructive pulmonary disease with (acute) exacerbation - terminal 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 (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 of inhaled steroids - Allergy status to other drugs, medicaments and biological substances - terminal 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 (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 of oral hypoglycemic drugs - Chronic obstructive pulmonary disease, unspecified - Type 2 diabetes mellitus without complications - Nicotine dependence, unspecified, uncomplicated - Contact with and (suspected) exposure to COVID-19 - Allergy status to penicillin - terminal 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 (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 of systemic steroids INPATIENT VISIT TRACKING (12 MO.) 10/25/2021 20:[address] [facility] TYPE: Medical Surgical COMPLAINT: - ACUTE HYPOXIC RESPIRATORY FAILURE, COVID 19 DIAGNOSES: - penitentiary (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 of oral hypoglycemic drugs - Other salvage determiner (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 - Acquired absence of other specified parts of digestive tract - Type 2 diabetes mellitus without complications - Acute and chronic respiratory failure with hypoxia - Dependence on supplemental oxygen - Dependence on supplemental oxygen - Allergy status to other drugs, medicaments and biological substances - Other nursing home (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 - terminal 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 (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 of oral hypoglycemic drugs - Nicotine dependence, unspecified, uncomplicated - Other specified postprocedural states - Acute and chronic respiratory failure with hypoxia - Allergy status to other antibiotic agents - Allergy status to other antibiotic agents - Essential (primary) hypertension - Epilepsy, unspecified, not intractable, without status epilepticus - Acquired absence of other specified parts of digestive tract - Chronic obstructive pulmonary disease, unspecified - COVID-19 - Allergy status to other drugs, medicaments and biological substances - Nicotine dependence, unspecified, uncomplicated - Epilepsy, unspecified, not intractable, without status epilepticus - Essential (primary) hypertension - Pulmonary mycobacterial infection - Pulmonary mycobacterial infection - Chronic obstructive pulmonary disease, unspecified - Type 2 diabetes mellitus without complications - Other specified postprocedural states [id number]
== END 2022-01-15 18:45 | disposition home or self-care (01) ==
LOC: ED 16:05
DX: J02.9 Acute pharyngitis, unspecified (principal); J44.9 Chronic obstructive pulmonary disease, unspecified; I10 Essential (primary) hypertension; E11.9 Type 2 diabetes mellitus without complications; Z20.822 Contact with and (suspected) exposure to COVID-19; F17.200 Nicotine dependence, unspecified, uncomplicated; Z88.1 Allergy status to other antibiotic agents; Z88.8 Allergy status to other drugs, medicaments and biological substances; Z79.899 Other long term (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
CPT/HCPCS: 87081; 87502; 87880; 99283; A9270; U0003

== ENCOUNTER 2022-02-18 12:08 | Emergency (ER) | payer MEDICARE ==
[~2022-02-18] VITALS: Ht 175.3 cm; Wt 94.7 kg
--- OUTSIDE RECORDS SUMMARY | 2022-02-18 12:16 | XMS ---
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 Orantes on 01/15/2021 Care History Social 03/09/2017 [facility] PATIENT RECEIVES FOOD STAMPS THROUGH [facility] Medical/Surgical 07/09/2021 [facility] Appropriate use of ED for SOB. 05/22/2021 [facility] Patient was seen by PCP Dr. Orantes on 05/20/2021 05/08/2020 [facility] Patient has wellness visit scheduled on 05/18/[address] Orantes. No medical records in [facility] for hospital visit on 05/02/2020 or 05/07/2020Leonora Solis VISIT COUNT (12 MO.) 8 [facility] TOTAL 8 NOTE: Visits indicate total known visits. ED/UCC VISIT TRACKING (12 MO.) 02/18/2022 12:09 [facility] TYPE: Emergency COMPLAINT: - ABD TO LEFT SIDE PAIN 01/15/2022 16:05 [facility] TYPE: Emergency COMPLAINT: - SORE THROAT DIAGNOSES: - Allergy status to other drugs, medicaments and biological substances - Allergy status to other antibiotic agents - Essential (primary) hypertension - Other long term care phlebotomist (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 - Chronic obstructive pulmonary disease, unspecified - Nicotine dependence, unspecified, uncomplicated - Contact with and (suspected) exposure to COVID-19 - Type 2 diabetes mellitus without complications - Acute pharyngitis, unspecified 11/02/2021 14:52 [facility] TYPE: Emergency COMPLAINT: - COUGH DIAGNOSES: - Allergy status to other drugs, medicaments and biological substances - Other senior care (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 - Allergy status to other antibiotic agents - Chronic obstructive pulmonary disease with (acute) exacerbation - Type 2 diabetes mellitus without complications - Shortness of breath - Essential (primary) hypertension - buttermaker continuous churn (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 - Nicotine dependence, unspecified, uncomplicated 10/25/2021 17:47 [facility] TYPE: Emergency COMPLAINT: - SHOB 08/30/2021 01:17 [facility] TYPE: Emergency COMPLAINT: - SHORTNESS OF BREATH DIAGNOSES: - Shortness of breath - buttermaker continuous churn (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 of inhaled steroids - Nicotine dependence, unspecified, uncomplicated - buttermaker continuous churn (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 of oral hypoglycemic drugs - senior living (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 of systemic steroids - Type 2 diabetes mellitus without complications - Other senior care (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 - Chronic obstructive pulmonary disease with (acute) exacerbation - Contact with and (suspected) exposure to COVID-19 - Essential (primary) hypertension 07/07/2021 16:47 [facility] TYPE: Emergency COMPLAINT: - SHORTNESS OF BREATH DIAGNOSES: - Type 2 diabetes mellitus without complications - Chronic obstructive pulmonary disease with (acute) exacerbation - Allergy status to other antibiotic agents - Allergy status to other drugs, medicaments and biological substances - Other long term care phlebotomist (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 - buttermaker continuous churn (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 of systemic steroids - Shortness of breath - Nicotine dependence, unspecified, uncomplicated - Essential (primary) hypertension 05/23/2021 18:14 [facility] TYPE: Emergency COMPLAINT: - SOB DIAGNOSES: - Type 2 diabetes mellitus without complications - senior living (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 of inhaled steroids - Shortness of breath - senior living (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 of systemic steroids - Allergy status to other drugs, medicaments and biological substances - Essential (primary) hypertension - senior living (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 of oral hypoglycemic drugs - Chronic obstructive pulmonary disease, unspecified - Nicotine dependence, unspecified, uncomplicated - Other senior care (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 - Contact with and (suspected) exposure to COVID-19 - Acute upper respiratory infection, unspecified - Dizziness and giddiness 05/19/2021 19:36 [facility] TYPE: Emergency COMPLAINT: - SOB DIAGNOSES: - senior living (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 of inhaled steroids - Allergy status to other drugs, medicaments and biological substances - senior living (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 of oral hypoglycemic drugs - Chronic obstructive pulmonary disease, unspecified - Type 2 diabetes mellitus without complications - Nicotine dependence, unspecified, uncomplicated - Contact with and (suspected) exposure to COVID-19 - Allergy status to penicillin - senior living (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 of systemic steroids - Shortness of breath - Other senior care (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 - Essential (primary) hypertension - Chronic obstructive pulmonary disease with (acute) exacerbation INPATIENT VISIT TRACKING (12 MO.) 10/25/2021 20:44 [facility] TYPE: Medical Surgical COMPLAINT: - ACUTE HYPOXIC RESPIRATORY FAILURE, COVID 19 DIAGNOSES: - Nicotine dependence, unspecified, uncomplicated - buttermaker continuous churn (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 of oral hypoglycemic drugs - Other specified postprocedural states - Acute and chronic respiratory failure with hypoxia - Allergy status to other antibiotic agents - Allergy status to other antibiotic agents - Essential (primary) hypertension - Epilepsy, unspecified, not intractable, without status epilepticus - Chronic obstructive pulmonary disease, unspecified - Acquired absence of other specified parts of digestive tract - COVID-19 - Nicotine dependence, unspecified, uncomplicated - Allergy status to other drugs, medicaments and biological substances - Epilepsy, unspecified, not intractable, without status epilepticus - Pulmonary mycobacterial infection - Essential (primary) hypertension - Chronic obstructive pulmonary disease, unspecified - Pulmonary mycobacterial infection - Type 2 diabetes mellitus without complications - Other specified postprocedural states - Other long term care phlebotomist (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 - buttermaker continuous churn (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 of oral hypoglycemic drugs - Acquired absence of other specified parts of digestive tract - Type 2 diabetes mellitus without complications - Dependence on supplemental oxygen - Acute and chronic respiratory failure with hypoxia - Dependence on supplemental oxygen - Other senior care (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 - Allergy status to other drugs, medicaments and biological substances [email or web address]
[2022-02-18] MEDS ORDERED: CARDIZEM CD180 MG PO (18:14)
[2022-02-18] MEDS ORDERED: ELIQUIS5 MG PO (18:14)
[2022-02-18] MEDS ORDERED: AMOX TR-K CLV1 EAC1 PO (18:14)
[2022-02-18] MEDS ORDERED: METRONIDAZOLE500 MG PO (18:19)
--- NOTE | 2022-02-21 13:53 | EKG ---
[facility] [address] [facility] [place] [address] Signed Atrial fibrillation with rapid ventricular response with premature ventricular or aberrantly conducted complexes Left axis deviation Abnormal ECG When compared with ECG of 01-DEC-2021 16:06, Atrial fibrillation has replaced Sinus rhythm Confirmed by SIGRID ARELLANO MD ([id number]) on 02/21/2022 1:53:18 PM Electronically Signed By: SIGRID ARELLANO MD 02/21/22 1353 PATIENT NAME: DAUGHERTYKEVIN Electrocardiogram DATE OF : 46 PHYSICIAN: SIGRID ARELLANO MD REPORT #: [id number] REPORT IS CONFIDENTIAL AND NOT TO BE RELEASED WITHOUT AUTHORIZATION
== END 2022-02-18 18:40 | disposition home or self-care (01) ==
LOC: ED 12:08
DX: K52.9 Noninfective gastroenteritis and colitis, unspecified (principal); I71.40 Abdominal aortic aneurysm, without rupture, unspecified; I48.0 Paroxysmal atrial fibrillation; J44.9 Chronic obstructive pulmonary disease, unspecified; E11.9 Type 2 diabetes mellitus without complications; I10 Essential (primary) hypertension; F17.200 Nicotine dependence, unspecified, uncomplicated; Z88.1 Allergy status to other antibiotic agents; Z88.8 Allergy status to other drugs, medicaments and biological substances; Z79.899 Other long term (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; Z79.82 Long term (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; Z20.822 Contact with and (suspected) exposure to COVID-19
CPT/HCPCS: 36415; 71045; 71275; 74174; 80053; 81003; 83690; 84484; 85025; 87502; 93005; 93010; 99284-25; 99406; A9270; C9803; J1170; J2405; Q9967; U0003

== ENCOUNTER 2022-11-11 22:08 | Emergency (ER) | payer MEDICARE ==
[~2022-11-11] VITALS: Ht 175.3 cm; Wt 99.0 kg
--- OUTSIDE RECORDS SUMMARY | ~2022-11-11 | XMS | Continuity of Care Document ---
Demographics + + + | Address | [address] | | | [place] [address] | + + + | Preferred Language | Unknown | + + + | Marital Status | | + + + | Denominational Affiliation | Unknown | + + + | Race | White | + + + | Ethnic Group | Not or | + + + Author + + + | Author | [facility] | + + + | Organization | [facility] | + + + | Address | [address] | | | [place] [address] | + + + | Phone | | + + + Care Team Providers + + + + | Care Orthopedic Rn Name | Role | Phone | + + + + Unavailable | Unavailable | + + + + Unavailable | Unavailable | + + + + Unavailable | Unavailable | + + + + Unavailable | Unavailable | + + + + Unavailable | Unavailable | + + + + Unavailable | Unavailable | + + + + Allergies and Intolerances + + + + + + | date | description | facility | reaction | severity | + + + + + + | (no date) | Mild | [facility] | (no reaction) | (no severity) | [facility] | | | + + + + + + | (no date) | Levofloxacin | [facility] | (no reaction) | (no severity) | | [facility] | | | + + + + + + | (no date) | Itching | [facility] | (no reaction) | (no severity) | | [facility] | | | + + + + + + | (no date) | Levofloxacin | [facility] | (no reaction) | (no severity) | | [facility] | | | + + + + + + | (no date) | Levofloxacin | [facility] | (no reaction) | (no severity) | | [facility] | | | + + + + + + | (no date) | levofloxacin | [facility] | (no reaction) | (no severity) | | [facility] | | | + + + + + + | (no date) | varenicline | [facility] | (no reaction) | (no severity) | | | tartrate | | | | + + + + + + | (no date) | levofloxacin | [facility] | (no reaction) | (no severity) | + + + + + + Encounters No information. Functional Status No information. Immunizations + + + + | date | description | facility | + + + + | 2021-10-28 00:00 | Influenza, High Dose | [facility] | | | Seasonal | | + + + + | 2022-01-15 00:00 | Influenza, High Dose | [facility] | | | Seasonal | | + + + + | 2022-02-18 00:00 | Influenza, High Dose | [facility] | | | Seasonal | | + + + + | 2022-10-18 00:00 | Influenza, High Dose | [facility] | | | Seasonal | | + + + + | 2022-10-23 00:00 | Influenza, High Dose | [facility] | | | Seasonal | | + + + + Medications + + + + | date | description | facility | + + + + | 2021-10-28 00:00 | LISINOPRIL | [facility] | + + + + | 2022-01-15 00:00 | LISINOPRIL | [facility] | + + + + | 2022-02-18 00:00 | LISINOPRIL | [facility] | + + + + | 2022-10-18 00:00 | LISINOPRIL | [facility] | + + + + | 2022-10-23 00:00 | LISINOPRIL | [facility] | + + + + | 2018-10-12 00:00 | ONDANSETRON HCL | [facility] | + + + + | 2018-10-12 00:00 | ONDANSETRON HCL | [facility] | + + + + | 2018-10-12 00:00 | ONDANSETRON HCL | [facility] | + + + + | 2018-10-12 00:00 | ONDANSETRON HCL | [facility] | + + + + | 2021-10-28 00:00 | ROFLUMILAST | [facility] | + + + + | 2022-01-15 00:00 | ROFLUMILAST | [facility] | + + + + | 2022-02-18 00:00 | ROFLUMILAST | [facility] | + + + + | 2022-10-18 00:00 | ROFLUMILAST | [facility] | + + + + | 2022-10-23 00:00 | ROFLUMILAST | [facility] | + + + + | 2021-10-28 00:00 | SITAGLIPTIN PHOS/METFORMIN | [facility] | | | HCL | | + + + + | 2022-01-15 00:00 | SITAGLIPTIN PHOS/METFORMIN | [facility] | | | HCL | | + + + + | 2022-02-18 00:00 | SITAGLIPTIN PHOS/METFORMIN | [facility] | | | HCL | | + + + + | 2022-10-18 00:00 | SITAGLIPTIN PHOS/METFORMIN | [facility] | | | HCL | | + + + + | 2022-10-23 00:00 | SITAGLIPTIN PHOS/METFORMIN | [facility] | | | HCL | | + + + + | 2022-02-18 00:00 | APIXABAN | [facility] | + + + + | 2022-02-18 00:00 | APIXABAN | [facility] | + + + + | 2021-10-28 00:00 | Ergocalciferol (Vitamin | [facility] | | | D2) | | + + + + | 2022-01-15 00:00 | Ergocalciferol (Vitamin | [facility] | | | D2) | | + + + + | 2022-02-18 00:00 | Ergocalciferol (Vitamin | [facility] | | | D2) | | + + + + | 2022-10-18 00:00 | Ergocalciferol (Vitamin | [facility] | | | D2) | | + + + + | 2022-10-23 00:00 | Ergocalciferol (Vitamin | [facility] | | | D2) | | + + + + | 2016-05-06 00:00 | IPRATROPIUM/ALBUTEROL | [facility] | | | SULFATE | | + + + + | 2016-05-06 00:00 | IPRATROPIUM/ALBUTEROL | [facility] | | | SULFATE | | + + + + | 2016-05-06 00:00 | IPRATROPIUM/ALBUTEROL | [facility] | | | SULFATE | | + + + + | 2016-05-06 00:00 | IPRATROPIUM/ALBUTEROL | [facility] | | | SULFATE | | + + + + | 2017-04-24 00:00 | IPRATROPIUM/ALBUTEROL | [facility] | | | SULFATE | | + + + + | 2017-04-24 00:00 | IPRATROPIUM/ALBUTEROL | [facility] | | | SULFATE | | + + + + | 2017-04-24 00:00 | IPRATROPIUM/ALBUTEROL | [facility] | | | SULFATE | | + + + + | 2017-04-24 00:00 | IPRATROPIUM/ALBUTEROL | [facility] | | | SULFATE | | + + + + | 2021-10-28 00:00 | Beclomethasone | [facility] | | | Dipropionate | | + + + + | 2022-01-15 00:00 | Beclomethasone | [facility] | | | Dipropionate | | + + + + | 2022-02-18 00:00 | Beclomethasone | [facility] | | | Dipropionate | | + + + + | 2022-10-18 00:00 | Beclomethasone | [facility] | | | Dipropionate | | + + + + | 2022-10-23 00:00 | Beclomethasone | [facility] | | | Dipropionate | | + + + + | 2021-10-28 00:00 | UMECLIDINIUM BROMIDE | [facility] | + + + + | 2022-01-15 00:00 | UMECLIDINIUM BROMIDE | [facility] | + + + + | 2022-02-18 00:00 | UMECLIDINIUM BROMIDE | [facility] | + + + + | 2022-10-18 00:00 | UMECLIDINIUM BROMIDE | [facility] | + + + + | 2022-10-23 00:00 | UMECLIDINIUM BROMIDE | [facility] | + + + + | 2021-10-28 00:00 | FLUTICASONE PROPIONATE | [facility] | + + + + | 2022-01-15 00:00 | FLUTICASONE PROPIONATE | [facility] | + + + + | 2022-02-18 00:00 | FLUTICASONE PROPIONATE | [facility] | + + + + | 2022-10-18 00:00 | FLUTICASONE PROPIONATE | [facility] | + + + + | 2022-10-23 00:00 | FLUTICASONE PROPIONATE | [facility] | + + + + | 2021-10-27 00:00 | BENZONATATE | [facility] | + + + + | 2021-10-27 00:00 | BENZONATATE | [facility] | + + + + | 2021-10-27 00:00 | BENZONATATE | [facility] | + + + + | 2021-10-27 00:00 | BENZONATATE | [facility] | + + + + | 2016-05-06 00:00 | NICOTINE 21MG | [facility] | + + + + | 2016-05-06 00:00 | NICOTINE 21MG | [facility] | + + + + | 2016-05-06 00:00 | NICOTINE 21MG | [facility] | + + + + | 2016-05-06 00:00 | NICOTINE 21MG | [facility] | + + + + | 2021-10-28 00:00 | OMEPRAZOLE | [facility] | + + + + | 2022-01-15 00:00 | OMEPRAZOLE | [facility] | + + + + | 2022-02-18 00:00 | OMEPRAZOLE | [facility] | + + + + | 2022-10-18 00:00 | OMEPRAZOLE | [facility] | + + + + | 2022-10-23 00:00 | OMEPRAZOLE | [facility] | + + + + | 2020-05-08 00:00 | PREDNISONE | [facility] | + + + + | 2020-05-08 00:00 | PREDNISONE | [facility] | + + + + | 2020-05-08 00:00 | PREDNISONE | [facility] | + + + + | 2020-05-08 00:00 | PREDNISONE | [facility] | + + + + | 2021-10-28 00:00 | RIFABUTIN | [facility] | + + + + | 2022-01-15 00:00 | RIFABUTIN | [facility] | + + + + | 2022-02-18 00:00 | RIFABUTIN | [facility] | + + + + | 2022-10-18 00:00 | RIFABUTIN | [facility] | + + + + | 2022-10-23 00:00 | RIFABUTIN | [facility] | + + + + | 2021-11-02 00:00 | Dexamethasone | [facility] | + + + + | 2021-11-02 00:00 | Dexamethasone | [facility] | + + + + | 2021-11-02 00:00 | Dexamethasone | [facility] | + + + + | 2015-06-01 00:00 | PREDNISONE | [facility] | + + + + | 2015-06-01 00:00 | PREDNISONE | [facility] | + + + + | 2015-06-01 00:00 | PREDNISONE | [facility] | + + + + | 2015-06-01 00:00 | PREDNISONE | [facility] | + + + + | 2021-10-28 00:00 | CARBAMAZEPINE | [facility] | + + + + | 2022-01-15 00:00 | CARBAMAZEPINE | [facility] | + + + + | 2022-02-18 00:00 | CARBAMAZEPINE | [facility] | + + + + | 2022-10-18 00:00 | CARBAMAZEPINE | [facility] | + + + + | 2022-10-23 00:00 | CARBAMAZEPINE | [facility] | + + + + | 2017-02-13 00:00 | AZITHROMYCIN | [facility] | + + + + | 2017-02-13 00:00 | AZITHROMYCIN | [facility] | + + + + | 2017-02-13 00:00 | AZITHROMYCIN | [facility] | + + + + | 2017-02-13 00:00 | AZITHROMYCIN | [facility] | + + + + | 2019-06-23 00:00 | AZITHROMYCIN | [facility] | + + + + | 2019-06-23 00:00 | AZITHROMYCIN | [facility] | + + + + | 2019-06-23 00:00 | AZITHROMYCIN | [facility] | + + + + | 2019-06-23 00:00 | AZITHROMYCIN | [facility] | + + + + | 2021-10-28 00:00 | SILDENAFIL CITRATE | [facility] | + + + + | 2022-01-15 00:00 | SILDENAFIL CITRATE | [facility] | + + + + | 2022-02-18 00:00 | SILDENAFIL CITRATE | [facility] | + + + + | 2022-10-18 00:00 | SILDENAFIL CITRATE | [facility] | + + + + | 2022-10-23 00:00 | SILDENAFIL CITRATE | [facility] | + + + + | 2021-10-28 00:00 | ATORVASTATIN CALCIUM | [facility] | + + + + | 2022-01-15 00:00 | ATORVASTATIN CALCIUM | [facility] | + + + + | 2022-02-18 00:00 | ATORVASTATIN CALCIUM | [facility] | + + + + | 2022-10-18 00:00 | ATORVASTATIN CALCIUM | [facility] | + + + + | 2022-10-23 00:00 | ATORVASTATIN CALCIUM | [facility] | + + + + | 2017-04-24 00:00 | OSELTAMIVIR PHOSPHATE | [facility] | + + + + | 2017-04-24 00:00 | OSELTAMIVIR PHOSPHATE | [facility] | + + + + | 2017-04-24 00:00 | OSELTAMIVIR PHOSPHATE | [facility] | + + + + | 2017-04-24 00:00 | OSELTAMIVIR PHOSPHATE | [facility] | + + + + | 2012-09-21 00:00 | AMOXICILLIN | [facility] | + + + + | 2012-09-21 00:00 | AMOXICILLIN | [facility] | + + + + | 2012-09-21 00:00 | AMOXICILLIN | [facility] | + + + + | 2012-09-21 00:00 | AMOXICILLIN | [facility] | + + + + | 2021-10-28 00:00 | ASPIRIN | [facility] | + + + + | 2022-01-15 00:00 | ASPIRIN | [facility] | + + + + | 2022-02-18 00:00 | ASPIRIN | [facility] | + + + + | 2022-10-18 00:00 | ASPIRIN | [facility] | + + + + | 2022-10-23 00:00 | ASPIRIN | [facility] | + + + + | 2021-10-28 00:00 | CARBAMAZEPINE | [facility] | + + + + | 2022-01-15 00:00 | CARBAMAZEPINE | [facility] | + + + + | 2022-02-18 00:00 | CARBAMAZEPINE | [facility] | + + + + | 2022-10-18 00:00 | CARBAMAZEPINE | [facility] | + + + + | 2022-10-23 00:00 | CARBAMAZEPINE | [facility] | + + + + | 2016-05-06 00:00 | CEFUROXIME AXETIL | [facility] | + + + + | 2016-05-06 00:00 | CEFUROXIME AXETIL | [facility] | + + + + | 2016-05-06 00:00 | CEFUROXIME AXETIL | [facility] | + + + + | 2016-05-06 00:00 | CEFUROXIME AXETIL | [facility] | + + + + | 2017-04-24 00:00 | CEFUROXIME AXETIL | [facility] | + + + + | 2017-04-24 00:00 | CEFUROXIME AXETIL | [facility] | + + + + | 2017-04-24 00:00 | CEFUROXIME AXETIL | [facility] | + + + + | 2017-04-24 00:00 | CEFUROXIME AXETIL | [facility] | + + + + | 2022-02-18 00:00 | METRONIDAZOLE | [facility] | + + + + | 2022-02-18 00:00 | METRONIDAZOLE | [facility] | + + + + | 2016-05-04 00:00 | predniSONE | [facility] | + + + + | 2016-05-04 00:00 | predniSONE | [facility] | + + + + | 2016-05-04 00:00 | predniSONE | [facility] | + + + + | 2016-05-04 00:00 | predniSONE | [facility] | + + + + | 2016-05-06 00:00 | predniSONE | [facility] | + + + + | 2016-05-06 00:00 | predniSONE | [facility] | + + + + | 2016-05-06 00:00 | predniSONE | [facility] | + + + + | 2016-05-06 00:00 | predniSONE | [facility] | + + + + | 2017-02-13 00:00 | predniSONE | [facility] | + + + + | 2017-02-13 00:00 | predniSONE | [facility] | + + + + | 2017-02-13 00:00 | predniSONE | [facility] | + + + + | 2017-02-13 00:00 | predniSONE | [facility] | + + + + | 2017-03-19 00:00 | predniSONE | [facility] | + + + + | 2017-03-19 00:00 | predniSONE | [facility] | + + + + | 2017-03-19 00:00 | predniSONE | [facility] | + + + + | 2017-03-19 00:00 | predniSONE | [facility] | + + + + | 2017-04-24 00:00 | predniSONE | [facility] | + + + + | 2017-04-24 00:00 | predniSONE | [facility] | + + + + | 2017-04-24 00:00 | predniSONE | [facility] | + + + + | 2017-04-24 00:00 | predniSONE | [facility] | + + + + | 2018-02-28 00:00 | predniSONE | [facility] | + + + + | 2018-02-28 00:00 | predniSONE | [facility] | + + + + | 2018-02-28 00:00 | predniSONE | [facility] | + + + + | 2018-02-28 00:00 | predniSONE | [facility] | + + + + | 2019-06-23 00:00 | predniSONE | [facility] | + + + + | 2019-06-23 00:00 | predniSONE | [facility] | + + + + | 2019-06-23 00:00 | predniSONE | [facility] | + + + + | 2019-06-23 00:00 | predniSONE | [facility] | + + + + | 2021-10-28 00:00 | predniSONE | [facility] | + + + + | 2022-01-15 00:00 | predniSONE | [facility] | + + + + | 2022-02-18 00:00 | predniSONE | [facility] | + + + + | 2022-10-18 00:00 | predniSONE | [facility] | + + + + | 2022-10-23 00:00 | predniSONE | [facility] | + + + + | 2021-10-28 00:00 | SENNOSIDES | [facility] | + + + + | 2022-01-15 00:00 | SENNOSIDES | [facility] | + + + + | 2022-02-18 00:00 | SENNOSIDES | [facility] | + + + + | 2022-10-18 00:00 | SENNOSIDES | [facility] | + + + + | 2022-10-23 00:00 | SENNOSIDES | [facility] | + + + + | 2021-10-28 00:00 | ROPINIROLE HCL | [facility] | + + + + | 2022-01-15 00:00 | ROPINIROLE HCL | [facility] | + + + + | 2022-02-18 00:00 | ROPINIROLE HCL | [facility] | + + + + | 2022-10-18 00:00 | ROPINIROLE HCL | [facility] | + + + + | 2022-10-23 00:00 | ROPINIROLE HCL | [facility] | + + + + | 2021-10-28 00:00 | GLIPIZIDE | [facility] | + + + + | 2022-01-15 00:00 | GLIPIZIDE | [facility] | + + + + | 2022-02-18 00:00 | GLIPIZIDE | [facility] | + + + + | 2022-10-18 00:00 | GLIPIZIDE | [facility] | + + + + | 2022-10-23 00:00 | GLIPIZIDE | [facility] | + + + + | 2022-10-18 00:00 | Scopolamine | [facility] | + + + + | 2021-10-28 00:00 | ASPIRIN | [facility] | + + + + | 2022-01-15 00:00 | ASPIRIN | [facility] | + + + + | 2022-02-18 00:00 | ASPIRIN | [facility] | + + + + | 2022-10-18 00:00 | ASPIRIN | [facility] | + + + + | 2022-10-23 00:00 | ASPIRIN | [facility] | + + + + | 2022-02-18 00:00 | AMOXICILLIN/POTASSIUM CLAV | [facility] | | | | | + + + + | 2022-02-18 00:00 | AMOXICILLIN/POTASSIUM CLAV | [facility] | | | | | + + + + | 2021-10-28 00:00 | SILDENAFIL CITRATE | [facility] | + + + + | 2022-01-15 00:00 | SILDENAFIL CITRATE | [facility] | + + + + | 2022-02-18 00:00 | SILDENAFIL CITRATE | [facility] | + + + + | 2022-10-18 00:00 | SILDENAFIL CITRATE | [facility] | + + + + | 2022-10-23 00:00 | SILDENAFIL CITRATE | [facility] | + + + + | 2021-10-28 00:00 | TIOTROPIUM BROMIDE | [facility] | + + + + | 2022-01-15 00:00 | TIOTROPIUM BROMIDE | [facility] | + + + + | 2022-02-18 00:00 | TIOTROPIUM BROMIDE | [facility] | + + + + | 2022-10-18 00:00 | TIOTROPIUM BROMIDE | [facility] | + + + + | 2022-10-23 00:00 | TIOTROPIUM BROMIDE | [facility] | + + + + | 2021-10-28 00:00 | ALBUTEROL SULFATE | [facility] | + + + + | 2022-01-15 00:00 | ALBUTEROL SULFATE | [facility] | + + + + | 2022-02-18 00:00 | ALBUTEROL SULFATE | [facility] | + + + + | 2022-10-18 00:00 | ALBUTEROL SULFATE | [facility] | + + + + | 2022-10-23 00:00 | ALBUTEROL SULFATE | [facility] | + + + + | 2021-10-28 00:00 | ALBUTEROL SULFATE | [facility] | + + + + | 2022-01-15 00:00 | ALBUTEROL SULFATE | [facility] | + + + + | 2022-02-18 00:00 | ALBUTEROL SULFATE | [facility] | + + + + | 2022-10-18 00:00 | ALBUTEROL SULFATE | [facility] | + + + + | 2022-10-23 00:00 | ALBUTEROL SULFATE | [facility] | + + + + | 2021-10-28 00:00 | AZITHROMYCIN | [facility] | + + + + | 2022-01-15 00:00 | AZITHROMYCIN | [facility] | + + + + | 2022-02-18 00:00 | AZITHROMYCIN | [facility] | + + + + | 2022-10-18 00:00 | AZITHROMYCIN | [facility] | + + + + | 2022-10-23 00:00 | AZITHROMYCIN | [facility] | + + + + | 2017-04-20 00:00 | AMOXICILLIN/POTASSIUM CLAV | [facility] | | | | | + + + + | 2017-04-20 00:00 | AMOXICILLIN/POTASSIUM CLAV | [facility] | | | | | + + + + | 2017-04-20 00:00 | AMOXICILLIN/POTASSIUM CLAV | [facility] | | | | | + + + + | 2017-04-20 00:00 | AMOXICILLIN/POTASSIUM CLAV | [facility] | | | | | + + + + | 2019-02-26 00:00 | AMOXICILLIN/POTASSIUM CLAV | [facility] | | | | | + + + + | 2019-02-26 00:00 | AMOXICILLIN/POTASSIUM CLAV | [facility] | | | | | + + + + | 2019-02-26 00:00 | AMOXICILLIN/POTASSIUM CLAV | [facility] | | | | | + + + + | 2019-02-26 00:00 | AMOXICILLIN/POTASSIUM CLAV | [facility] | | | | | + + + + | 2022-02-18 00:00 | DILTIAZEM HCL | [facility] | + + + + | 2022-02-18 00:00 | DILTIAZEM HCL | [facility] | + + + + | 2016-07-16 00:00 | methylPREDNISolone | [facility] | + + + + | 2016-07-16 00:00 | methylPREDNISolone | [facility] | + + + + | 2016-07-16 00:00 | methylPREDNISolone | [facility] | + + + + | 2016-07-16 00:00 | methylPREDNISolone | [facility] | + + + + | 2021-01-12 00:00 | HYDROCODONE | [facility] | | | BIT/ACETAMINOPHEN | | + + + + | 2021-01-12 00:00 | HYDROCODONE | [facility] | | | BIT/ACETAMINOPHEN | | + + + + | 2021-01-12 00:00 | HYDROCODONE | [facility] | | | BIT/ACETAMINOPHEN | | + + + + | 2021-01-12 00:00 | HYDROCODONE | [facility] | | | BIT/ACETAMINOPHEN | | + + + + | 2012-09-21 00:00 | HYDROCODONE | [facility] | | | BIT/ACETAMINOPHEN | | + + + + | 2012-09-21 00:00 | HYDROCODONE | [facility] | | | BIT/ACETAMINOPHEN | | + + + + | 2012-09-21 00:00 | HYDROCODONE | [facility] | | | BIT/ACETAMINOPHEN | | + + + + | 2012-09-21 00:00 | HYDROCODONE | [facility] | | | BIT/ACETAMINOPHEN | | + + + + | 2021-10-28 00:00 | Rosuvastatin Calcium | [facility] | + + + + | 2022-01-15 00:00 | Rosuvastatin Calcium | [facility] | + + + + | 2022-02-18 00:00 | Rosuvastatin Calcium | [facility] | + + + + | 2022-10-18 00:00 | Rosuvastatin Calcium | [facility] | + + + + | 2022-10-23 00:00 | Rosuvastatin Calcium | [facility] | + + + + | 2021-10-28 00:00 | ROSUVASTATIN CALCIUM | [facility] | + + + + | 2022-01-15 00:00 | ROSUVASTATIN CALCIUM | [facility] | + + + + | 2022-02-18 00:00 | ROSUVASTATIN CALCIUM | [facility] | + + + + | 2022-10-18 00:00 | ROSUVASTATIN CALCIUM | [facility] | + + + + | 2022-10-23 00:00 | ROSUVASTATIN CALCIUM | [facility] | + + + + | 2021-10-28 00:00 | METFORMIN HCL | [facility] | + + + + | 2022-01-15 00:00 | METFORMIN HCL | [facility] | + + + + | 2022-02-18 00:00 | METFORMIN HCL | [facility] | + + + + | 2022-10-18 00:00 | METFORMIN HCL | [facility] | + + + + | 2022-10-23 00:00 | METFORMIN HCL | [facility] | + + + + | 2014-12-31 00:00 | ONDANSETRON | [facility] | + + + + | 2014-12-31 00:00 | ONDANSETRON | [facility] | + + + + | 2014-12-31 00:00 | ONDANSETRON | [facility] | + + + + | 2014-12-31 00:00 | ONDANSETRON | [facility] | + + + + | 2021-10-28 00:00 | FLUTICASONE/SALMETEROL | [facility] | + + + + | 2022-01-15 00:00 | FLUTICASONE/SALMETEROL | [facility] | + + + + | 2022-02-18 00:00 | FLUTICASONE/SALMETEROL | [facility] | + + + + | 2022-10-18 00:00 | FLUTICASONE/SALMETEROL | [facility] | + + + + | 2022-10-23 00:00 | FLUTICASONE/SALMETEROL | [facility] | + + + + | 2021-10-28 00:00 | FLUTICASONE/SALMETEROL | [facility] | + + + + | 2022-01-15 00:00 | FLUTICASONE/SALMETEROL | [facility] | + + + + | 2022-02-18 00:00 | FLUTICASONE/SALMETEROL | [facility] | + + + + | 2022-10-18 00:00 | FLUTICASONE/SALMETEROL | [facility] | + + + + | 2022-10-23 00:00 | FLUTICASONE/SALMETEROL | [facility] | + + + + | 2017-02-13 00:00 | Nicotine Polacrilex | [facility] | + + + + | 2017-02-13 00:00 | Nicotine Polacrilex | [facility] | + + + + | 2017-02-13 00:00 | Nicotine Polacrilex | [facility] | + + + + | 2017-02-13 00:00 | Nicotine Polacrilex | [facility] | + + + + | 2017-04-24 00:00 | Nicotine Polacrilex | [facility] | + + + + | 2017-04-24 00:00 | Nicotine Polacrilex | [facility] | + + + + | 2017-04-24 00:00 | Nicotine Polacrilex | [facility] | + + + + | 2017-04-24 00:00 | Nicotine Polacrilex | [facility] | + + + + | 2021-10-28 00:00 | LOSARTAN POTASSIUM | [facility] | + + + + | 2022-01-15 00:00 | LOSARTAN POTASSIUM | [facility] | + + + + | 2022-02-18 00:00 | LOSARTAN POTASSIUM | [facility] | + + + + | 2022-10-18 00:00 | LOSARTAN POTASSIUM | [facility] | + + + + | 2022-10-23 00:00 | LOSARTAN POTASSIUM | [facility] | + + + + | 2021-10-28 00:00 | LOSARTAN POTASSIUM | [facility] | + + + + | 2022-01-15 00:00 | LOSARTAN POTASSIUM | [facility] | + + + + | 2022-02-18 00:00 | LOSARTAN POTASSIUM | [facility] | + + + + | 2022-10-18 00:00 | LOSARTAN POTASSIUM | [facility] | + + + + | 2022-10-23 00:00 | LOSARTAN POTASSIUM | [facility] | + + + + | 2021-10-28 00:00 | hydrOXYzine HCL | [facility] | + + + + | 2022-01-15 00:00 | hydrOXYzine HCL | [facility] | + + + + | 2022-02-18 00:00 | hydrOXYzine HCL | [facility] | + + + + | 2022-10-18 00:00 | hydrOXYzine HCL | [facility] | + + + + | 2022-10-23 00:00 | hydrOXYzine HCL | [facility] | + + + + | 2021-10-28 00:00 | ETHAMBUTOL HCL | [facility] | + + + + | 2022-01-15 00:00 | ETHAMBUTOL HCL | [facility] | + + + + | 2022-02-18 00:00 | ETHAMBUTOL HCL | [facility] | + + + + | 2022-10-18 00:00 | ETHAMBUTOL HCL | [facility] | + + + + | 2022-10-23 00:00 | ETHAMBUTOL HCL | [facility] | + + + + | 2021-10-28 00:00 | VARDENAFIL HCL | [facility] | + + + + | 2022-01-15 00:00 | VARDENAFIL HCL | [facility] | + + + + | 2022-02-18 00:00 | VARDENAFIL HCL | [facility] | + + + + | 2022-10-18 00:00 | VARDENAFIL HCL | [facility] | + + + + | 2022-10-23 00:00 | VARDENAFIL HCL | [facility] | + + + + | 2015-06-01 00:00 | FEXOFENADINE HCL | [facility] | + + + + | 2015-06-01 00:00 | FEXOFENADINE HCL | [facility] | + + + + | 2015-06-01 00:00 | FEXOFENADINE HCL | [facility] | + + + + | 2015-06-01 00:00 | FEXOFENADINE HCL | [facility] | + + + + Problems + + + + | date | description | facility | + + + + | 2014-12-31 00:00 | Gastroenteritis | [facility] | + + + + | 2014-12-31 00:00 | Gastroenteritis | [facility] | + + + + | 2014-12-31 00:00 | Gastroenteritis | [facility] | + + + + | 2014-12-31 00:00 | Gastroenteritis | [facility] | + + + + | 2015-05-28 00:00 | Chronic obstructive | [facility] | | | pulmonary disease with | | | | acute exacerbation | | + + + + | 2015-05-28 00:00 | Chronic obstructive | [facility] | | | pulmonary disease with | | | | acute exacerbation | | + + + + | 2015-05-28 00:00 | Chronic obstructive | [facility] | | | pulmonary disease with | | | | acute exacerbation | | + + + + | 2015-05-28 00:00 | Chronic obstructive | [facility] | | | pulmonary disease with | | | | acute exacerbation | | + + + + | 2015-05-30 00:00 | Restless legs syndrome | [facility] | + + + + | 2015-05-30 00:00 | Restless legs syndrome | [facility] | + + + + | 2015-05-30 00:00 | Restless legs syndrome | [facility] | + + + + | 2015-05-30 00:00 | Restless legs syndrome | [facility] | + + + + | 2015-05-30 00:00 | Seizure disorder | [facility] | + + + + | 2015-05-30 00:00 | Seizure disorder | [facility] | + + + + | 2015-05-30 00:00 | Seizure disorder | [facility] | + + + + | 2015-05-30 00:00 | Seizure disorder | [facility] | + + + + | 2015-05-30 00:00 | Post-nasal discharge | [facility] | + + + + | 2015-05-30 00:00 | Post-nasal discharge | [facility] | + + + + | 2015-05-30 00:00 | Post-nasal discharge | [facility] | + + + + | 2015-05-30 00:00 | Post-nasal discharge | [facility] | + + + + | 2015-05-31 00:00 | Nicotine dependence | [facility] | + + + + | 2015-05-31 00:00 | Nicotine dependence | [facility] | + + + + | 2015-05-31 00:00 | Nicotine dependence | [facility] | + + + + | 2015-05-31 00:00 | Nicotine dependence | [facility] | + + + + | 2015-06-06 00:00 | Nonspecific chest pain | [facility] | + + + + | 2015-06-06 00:00 | Nonspecific chest pain | [facility] | + + + + | 2015-06-06 00:00 | Nonspecific chest pain | [facility] | + + + + | 2015-06-06 00:00 | Nonspecific chest pain | [facility] | + + + + | 2016-02-24 00:00 | Headache | [facility] | + + + + | 2016-02-24 00:00 | Headache | [facility] | + + + + | 2016-02-24 00:00 | Headache | [facility] | + + + + | 2016-02-24 00:00 | Headache | [facility] | + + + + | 2016-05-04 00:00 | Dehydration | [facility] | + + + + | 2016-05-04 00:00 | Dehydration | [facility] | + + + + | 2016-05-04 00:00 | Dehydration | [facility] | + + + + | 2016-05-04 00:00 | Dehydration | [facility] | + + + + | 2016-05-04 00:00 | Dizziness | [facility] | + + + + | 2016-05-04 00:00 | Dizziness | [facility] | + + + + | 2016-05-04 00:00 | Dizziness | [facility] | + + + + | 2016-05-04 00:00 | Dizziness | [facility] | + + + + | 2016-05-05 00:00 | Type 2 diabetes mellitus | [facility] | + + + + | 2016-05-05 00:00 | Type 2 diabetes mellitus | [facility] | + + + + | 2016-05-05 00:00 | Type 2 diabetes mellitus | [facility] | + + + + | 2016-05-05 00:00 | Type 2 diabetes mellitus | [facility] | + + + + | 2016-05-05 00:00 | Hyperlipidemia | [facility] | + + + + | 2016-05-05 00:00 | Hyperlipidemia | [facility] | + + + + | 2016-05-05 00:00 | Hyperlipidemia | [facility] | + + + + | 2016-05-05 00:00 | Hyperlipidemia | [facility] | + + + + | 2016-05-05 00:00 | Essential hypertension | [facility] | + + + + | 2016-05-05 00:00 | Essential hypertension | [facility] | + + + + | 2016-05-05 00:00 | Essential hypertension | [facility] | + + + + | 2016-05-05 00:00 | Essential hypertension | [facility] | + + + + | 2016-05-05 00:00 | Gastroesophageal reflux | [facility] | | | disease | | + + + + | 2016-05-05 00:00 | Gastroesophageal reflux | [facility] | | | disease | | + + + + | 2016-05-05 00:00 | Gastroesophageal reflux | [facility] | | | disease | | + + + + | 2016-05-05 00:00 | Gastroesophageal reflux | [facility] | | | disease | | + + + + | 2016-07-16 00:00 | Obstructive chronic | [facility] | | | bronchitis with | | | | exacerbation | | + + + + | 2016-07-16 00:00 | Obstructive chronic | [facility] | | | bronchitis with | | | | exacerbation | | + + + + | 2016-07-16 00:00 | Obstructive chronic | [facility] | | | bronchitis with | | | | exacerbation | | + + + + | 2016-07-16 00:00 | Obstructive chronic | [facility] | | | bronchitis with | | | | exacerbation | | + + + + | 2016-08-25 00:00 | Vomiting | [facility] | + + + + | 2016-08-25 00:00 | Vomiting | [facility] | + + + + | 2016-08-25 00:00 | Vomiting | [facility] | + + + + | 2016-08-25 00:00 | Vomiting | [facility] | + + + + | 2016-10-09 00:00 | Acute bronchitis with | [facility] | | | chronic obstructive | | | | pulmonary disease (COPD) | | + + + + | 2016-10-09 00:00 | Acute bronchitis with | [facility] | | | chronic obstructive | | | | pulmonary disease (COPD) | | + + + + | 2016-10-09 00:00 | Acute bronchitis with | [facility] | | | chronic obstructive | | | | pulmonary disease (COPD) | | + + + + | 2016-10-09 00:00 | Acute bronchitis with | [facility] | | | chronic obstructive | | | | pulmonary disease (COPD) | | + + + + | 2016-12-26 00:00 | Nausea | [facility] | + + + + | 2016-12-26 00:00 | Nausea | [facility] | + + + + | 2016-12-26 00:00 | Nausea | [facility] | + + + + | 2016-12-26 00:00 | Nausea | [facility] | + + + + | 2017-01-20 00:00 | Left anterior knee pain | [facility] | + + + + | 2017-01-20 00:00 | Left anterior knee pain | [facility] | + + + + | 2017-01-20 00:00 | Left anterior knee pain | [facility] | + + + + | 2017-01-20 00:00 | Left anterior knee pain | [facility] | + + + + | 2017-02-11 00:00 | Chronic respiratory | [facility] | | | failure | | + + + + | 2017-02-11 00:00 | Chronic respiratory | [facility] | | | failure | | + + + + | 2017-02-11 00:00 | Chronic respiratory | [facility] | | | failure | | + + + + | 2017-02-11 00:00 | Chronic respiratory | [facility] | | | failure | | + + + + | 2017-03-19 00:00 | Chest pain | [facility] | + + + + | 2017-03-19 00:00 | Chest pain | [facility] | + + + + | 2017-03-19 00:00 | Chest pain | [facility] | + + + + | 2017-03-19 00:00 | Chest pain | [facility] | + + + + | 2017-04-20 00:00 | Pharyngitis | [facility] | + + + + | 2017-04-20 00:00 | Pharyngitis | [facility] | + + + + | 2017-04-20 00:00 | Pharyngitis | [facility] | + + + + | 2017-04-20 00:00 | Pharyngitis | [facility] | + + + + | 2017-04-21 00:00 | Sepsis | [facility] | + + + + | 2017-04-21 00:00 | Sepsis | [facility] | + + + + | 2017-04-21 00:00 | Sepsis | [facility] | + + + + | 2017-04-21 00:00 | Sepsis | [facility] | + + + + | 2017-10-04 00:00 | Acute exacerbation of | [facility] | | | chronic obstructive | | | | pulmonary disease | | + + + + | 2017-10-04 00:00 | Acute exacerbation of | [facility] | | | chronic obstructive | | | | pulmonary disease | | + + + + | 2017-10-04 00:00 | Acute exacerbation of | [facility] | | | chronic obstructive | | | | pulmonary disease | | + + + + | 2017-10-04 00:00 | Acute exacerbation of | [facility] | | | chronic obstructive | | | | pulmonary disease | | + + + + | 2018-10-11 00:00 | Systemic inflammatory | [facility] | | | response syndrome (SIRS) | | + + + + | 2018-10-11 00:00 | Systemic inflammatory | [facility] | | | response syndrome (SIRS) | | + + + + | 2018-10-11 00:00 | Systemic inflammatory | [facility] | | | response syndrome (SIRS) | | + + + + | 2018-10-11 00:00 | Systemic inflammatory | [facility] | | | response syndrome (SIRS) | | + + + + | 2019-02-26 00:00 | Right upper lobe pneumonia | [facility] | | | | | + + + + | 2019-02-26 00:00 | Right upper lobe pneumonia | [facility] | | | | | + + + + | 2019-02-26 00:00 | Right upper lobe pneumonia | [facility] | | | | | + + + + | 2019-02-26 00:00 | Right upper lobe pneumonia | [facility] | | | | | + + + + | 2019-08-31 00:00 | Abdominal pain | [facility] | + + + + | 2019-08-31 00:00 | Abdominal pain | [facility] | + + + + | 2019-08-31 00:00 | Abdominal pain | [facility] | + + + + | 2019-08-31 00:00 | Abdominal pain | [facility] | + + + + | 2020-05-12 00:00 | Anxiety | [facility] | + + + + | 2020-05-12 00:00 | Anxiety | [facility] | + + + + | 2020-05-12 00:00 | Anxiety | [facility] | + + + + | 2020-05-12 00:00 | Anxiety | [facility] | + + + + | 2020-06-20 00:00 | Myalgia after severe acute | [facility] | | | respiratory syndrome | | | | coronavirus 2 (SARS-CoV-2) | | | | vaccination | | + + + + | 2020-06-20 00:00 | Myalgia after severe acute | [facility] | | | respiratory syndrome | | | | coronavirus 2 (SARS-CoV-2) | | | | vaccination | | + + + + | 2020-06-20 00:00 | Myalgia after severe acute | [facility] | | | respiratory syndrome | | | | coronavirus 2 (SARS-CoV-2) | | | | vaccination | | + + + + | 2020-06-20 00:00 | Myalgia after severe acute | [facility] | | | respiratory syndrome | | | | coronavirus 2 (SARS-CoV-2) | | | | vaccination | | + + + + | 2020-09-24 00:00 | Chronic obstructive | [facility] | | | pulmonary disease | | + + + + | 2020-09-24 00:00 | Chronic obstructive | [facility] | | | pulmonary disease | | + + + + | 2020-09-24 00:00 | Chronic obstructive | [facility] | | | pulmonary disease | | + + + + | 2020-09-24 00:00 | Chronic obstructive | [facility] | | | pulmonary disease | | + + + + | 2021-05-23 00:00 | Upper respiratory tract | [facility] | | | infection | | + + + + | 2021-05-23 00:00 | Upper respiratory tract | [facility] | | | infection | | + + + + | 2021-05-23 00:00 | Upper respiratory tract | [facility] | | | infection | | + + + + | 2021-05-23 00:00 | Upper respiratory tract | [facility] | | | infection | | + + + + | 2021-10-25 00:00 | Infection due to severe | [facility] | | | acute respiratory syndrome | | | | coronavirus 2 (SARS-CoV-2) | | + + + + | 2021-10-25 00:00 | Infection due to severe | [facility] | | | acute respiratory syndrome | | | | coronavirus 2 (SARS-CoV-2) | | + + + + | 2021-10-25 00:00 | Infection due to severe | [facility] | | | acute respiratory syndrome | | | | coronavirus 2 (SARS-CoV-2) | | + + + + | 2021-10-25 00:00 | Infection due to severe | [facility] | | | acute respiratory syndrome | | | | coronavirus 2 (SARS-CoV-2) | | + + + + | 2022-02-18 00:00 | Paroxysmal atrial | [facility] | | | fibrillation | | + + + + | 2022-02-18 00:00 | Paroxysmal atrial | [facility] | | | fibrillation | | + + + + | 2022-02-18 00:00 | Abdominal aortic aneurysm | [facility] | | | (AAA) | | + + + + | 2022-02-18 00:00 | Abdominal aortic aneurysm | [facility] | | | (AAA) | | + + + + | 2022-02-18 00:00 | Colitis | [facility] | + + + + | 2022-02-18 00:00 | Colitis | [facility] | + + + + | 2022-05-01 12:33 | PULMONARY MYCOBACTERIAL | [facility] | | | INFECTION | | + + + + | 2022-05-01 12:33 | OTHER DISORDERS OF LUNG | [facility] | + + + + | 2022-10-18 00:00 | Vertigo | [facility] | + + + + | 2022-10-18 20:14 | TYPE 2 DIABETES MELLITUS | [facility] | | | WITHOUT COMPLICATIONS | | + + + + | 2022-10-18 20:14 | NICOTINE DEPENDENCE, | [facility] | | | UNSPECIFIED, UNCOMPLICATED | | + + + + | 2022-10-18 20:14 | Essential (primary) | [facility] | | | hypertension | | + + + + | 2022-10-18 20:14 | CHRONIC OBSTRUCTIVE | [facility] | | | PULMONARY DISEASE, | | | | UNSPECIFIED | | + + + + | 2022-10-18 20:14 | Dizziness and giddiness | [facility] | + + + + | 2022-10-18 20:14 | [employer] (CURRENT) USE OF | [facility] | | | ANTICOAGULANTS | | + + + + | 2022-10-18 20:14 | OTHER [employer] (CURRENT) | [facility] | | | DRUG THERAPY | | + + + + | 2022-10-22 22:40 | TYPE 2 DIABETES MELLITUS | [facility] | | | WITHOUT COMPLICATIONS | | + + + + | 2022-10-22 22:40 | OTHER ACIDOSIS | [facility] | + + + + | 2022-10-22 22:40 | NICOTINE DEPENDENCE, | [facility] | | | UNSPECIFIED, UNCOMPLICATED | | + + + + | 2022-10-22 22:40 | EPILEPSY, UNSP, NOT | [facility] | | | INTRACTABLE, WITHOUT STATUS | | | | EP | | + + + + | 2022-10-22 22:40 | OTHER SPECIFIED DISORDERS | [facility] | | | OF EYE AND ADNEXA | | + + + + | 2022-10-22 22:40 | Essential (primary) | [facility] | | | hypertension | | + + + + | 2022-10-22 22:40 | NON-ST ELEVATION (NSTEMI) | [facility] | | | MYOCARDIAL INFARCTION | | + + + + | 2022-10-22 22:40 | CHRONIC OBSTRUCTIVE | [facility] | | | PULMONARY DISEASE, | | | | UNSPECIFIED | | + + + + | 2022-10-22 22:40 | RESPIRATORY FAILURE, | [facility] | | | UNSPECIFIED WITH | | | | HYPERCAPNIA | | + + + + | 2022-10-22 22:40 | Syncope and collapse | [facility] | + + + + | 2022-10-22 22:40 | [employer] (CURRENT) USE OF | [facility] | | | ANTICOAGULANTS | | + + + + | 2022-10-22 22:40 | LONGTERM (CURRENT) USE OF | [facility] | | | INHALED STEROIDS | | + + + + | 2022-10-22 22:40 | [employer] (CURRENT) USE OF | [facility] | | | ASPIRIN | | + + + + | 2022-10-22 22:40 | [employer] (CURRENT) USE OF | [facility] | | | ORAL HYPOGLYCEMIC DRUGS | | + + + + | 2022-10-22 22:40 | OTHER [employer] (CURRENT) | [facility] | | | DRUG THERAPY | | + + + + | 2022-10-23 00:00 | Respiratory acidosis | [facility] | + + + + | 2022-10-23 00:00 | Non-ST elevation | [facility] | | | myocardial infarction | | | | (NSTEMI) | | + + + + | 2022-10-23 00:00 | Respiratory failure with | [facility] | | | hypercapnia | | + + + + Procedures No information. Results/Labs +--------+--------+ +---------+--------+---------+ | test | date | facility | value | unit | notes | +--------+--------+ +---------+--------+---------+ + + | Result panel 1 | + + + + + +--------+ + + | | 2021-05-19 | [facility] | 0.59 | (missing) | (missing) | | (unavailable | 20:00 [facility] | | | | + + + +--------+ + + + + | Result panel 2 | + + + + + +--------+ + + | | 2021-05-23 | [facility] | 10.5 | (missing) | (missing) | | (unavailable | 20:15 [facility] | | | | + + + +--------+ + + + + | Result panel 3 | + + + + + +------+ + + | | 2021-05-23 | [facility] | // | (missing) | (missing) | | (unavailable | 20:15 [facility] | | | | + + + +------+ + + + + | Result panel 4 | + + + + + +--------+ + + | | 2021-08-30 | [facility] | 14.9 | (missing) | (missing) | | (unavailable | 01:34 [facility] | | | | + + + +--------+ + + + + | Result panel 5 | + + + + + +--------+ + + | | 2021-08-30 | [facility] | 7.39 | (missing) | (missing) | | (unavailable | 01:45 [facility] | | | | + + + +--------+ + + + + | Result panel 6 | + + + + + + + + + | | 2021-10-25 | [facility] | POSITIVE | (missing) | (missing) | | (unavailable | 17:54 [facility] | | | | + + + + + + + + + | Result panel 7 | + + + + + + + + + | | 2021-10-25 | [facility] | NEGATIVE | (missing) | (missing) | | (unavailable | 17:54 [facility] | | | + + + + + + + + + | Result panel 8 | + + + + + + + + + | | 2021-10-25 | [facility] | NEGATIVE | (missing) | (missing) | | (unavailable | 17:54 [facility] | | | | + + + + + + + + + | Result panel 9 | + + + + + + + + + | | 2021-10-25 | [facility] | NEGATIVE | (missing) | (missing) | | (unavailable | 17:54 [facility] | | | + + + + + + + + + | Result panel 10 | + + + + + +------+ + + | | 2021-10-25 | [facility] | 4L | (missing) | (missing) | | (unavailable | 19:50 [facility] | | | | + + + +------+ + + + + | Result panel 11 | + + + + + +--------+ + + | | 2021-10-25 | [facility] | 24.2 | (missing) | (missing) | | (unavailable | 19:50 [facility] | | | + + + +--------+ + + + + | Result panel 12 | + + + + + +--------+ + + | | 2021-10-25 | [facility] | 7.37 | (missing) | (missing) | | (unavailable | 19:50 [facility] | | | + + + +--------+ + + + + | Result panel 13 | + + + + + +--------+ + + | | 2021-10-25 | [facility] | 40.9 | (missing) | (missing) | | (unavailable | 19:50 [facility] | | | + + + +--------+ + + + + | Result panel 14 | + + + + + +------+ + + | | 2021-10-25 | [facility] | 70 | (missing) | (missing) | | (unavailable | 19:50 [facility] | | | + + + +------+ + + + + | Result panel 15 | + + + + + +--------+ + + | | 2021-10-25 | [facility] | 23.0 | (missing) | (missing) | | (unavailable | 19:50 [facility] | | | + + + +--------+ + + + + | Result panel 16 | + + + + + +--------+ + + | | 2021-10-25 | [facility] | -1.7 | (missing) | (missing) | | (unavailable | 19:50 [facility] | | | + + + +--------+ + + + + | Result panel 17 | + + + + + +--------+ + + | | 2021-10-25 | [facility] | 96.1 | (missing) | (missing) | | (unavailable | 19:50 [facility] | | | + + + +--------+ + + + + | Result panel 18 | + + + + + +-------+---------+ + | | 2021-10-26 | [facility] | 1.7 | mg/dL | (missing) | | (unavailable | 06:28 [facility] | | | + + + +-------+---------+ + + + | Result panel 19 | + + + + + +-------+ + + | | 2021-10-27 | [facility] | 3.2 | (missing) | (missing) | | (unavailable | 06:06 [facility] | | | + + + +-------+ + + + + | Result panel 20 | + + + + + +--------+ + + | | 2021-10-27 | [facility] | 4.44 | (missing) | (missing) | | (unavailable | 06:06 [facility] | | | + + + +--------+ + + + + | Result panel 21 | + + + + + +--------+ + + | | 2021-10-27 | [facility] | 14.4 | (missing) | (missing) | | (unavailable | 06:06 [facility] | | | + + + +--------+ + + + + | Result panel 22 | + + + + + +--------+ + + | | 2021-10-27 | [facility] | 41.1 | (missing) | (missing) | | (unavailable | 06:06 [facility] | | | + + + +--------+ + + + + | Result panel 23 | + + + + + +--------+ + + | | 2021-10-27 | [facility] | 92.5 | (missing) | (missing) | | (unavailable | 06:06 [facility] | | | + + + +--------+ + + + + | Result panel 24 | + + + + + +--------+ + + | | 2021-10-27 | [facility] | 32.3 | (missing) | (missing) | | (unavailable | 06:06 [facility] | | | + + + +--------+ + + + + | Result panel 25 | + + + + + +--------+ + + | | 2021-10-27 | [facility] | 35.0 | (missing) | (missing) | | (unavailable | 06:06 [facility] | | | + + + +--------+ + + + + | Result panel 26 | + + + + + +--------+ + + | | 2021-10-27 | [facility] | 13.2 | (missing) | (missing) | | (unavailable | 06:06 [facility] | | | + + + +--------+ + + + + | Result panel 27 | + + + + + +-------+ + + | | 2021-10-27 | [facility] | 148 | (missing) | (missing) | | (unavailable | 06:06 [facility] | | | + + + +-------+ + + + + | Result panel 28 | + + + + + +--------+ + + | | 2021-10-27 | [facility] | 54.8 | (missing) | (missing) | | (unavailable | 06:06 [facility] | | | + + + +--------+ + + + + | Result panel 29 | + + + + + +--------+ + + | | 2021-10-27 | [facility] | 30.6 | (missing) | (missing) | | (unavailable | 06:06 [facility] | | | + + + +--------+ + + + + | Result panel 30 | + + + + + +--------+ + + | | 2021-10-27 | [facility] | 13.8 | (missing) | (missing) | | (unavailable | 06:06 [facility] | | | + + + +--------+ + + + + | Result panel 31 | + + + + + +-------+ + + | | 2021-10-27 | [facility] | 0.2 | (missing) | (missing) | | (unavailable | 06:06 [facility] | | | + + + +-------+ + + + + | Result panel 32 | + + + + + +-------+ + + | | 2021-10-27 | [facility] | 0.6 | (missing) | (missing) | | (unavailable | 06:06 [facility] | | | + + + +-------+ + + + + | Result panel 33 | + + + + + +-------+---------+ + | | 2021-10-27 | [facility] | 112 | mg/dL | (missing) | | (unavailable | :06 | [facility] | | | | + + + +-------+---------+ + + + | Result panel 34 | + + + + + +-----+---------+ + | | 2021-10-27 | [facility] | 9 | mg/dL | (missing) | | (unavailable | 06:06 [facility] | | | | + + + +-----+---------+ + + + | Result panel 35 | + + + + + +--------+---------+ + | | 2021-10-27 | [facility] | 0.80 | mg/dL | (missing) | | (unavailable | 06:06 [facility] | | | + + + +--------+---------+ + + + | Result panel 36 | + + + + + +------+ + + | | 2021-10-27 | [facility] | 93 | (missing) | (missing) | | (unavailable | 06:06 | [facility] | | | | + + + +------+ + + + + | Result panel 37 | + + + + + +---------+ + + | | 2021-10-27 | [facility] | 11.25 | (missing) | (missing) | | (unavailable | 06:06 [facility] | | | | + + + +---------+ + + + + | Result panel 38 | + + + + + +-------+ + + | | 2021-10-27 | [facility] | 138 | (missing) | (missing) | | (unavailable | :06 | [facility] | | | + + + +-------+ + + + + | Result panel 39 | + + + + + +-------+ + + | | 2021-10-27 | [facility] | 3.8 | (missing) | (missing) | | (unavailable | 06:06 [facility] | | | + + + +-------+ + + + + | Result panel 40 | + + + + + +-------+ + + | | 2021-10-27 | [facility] | 104 | (missing) | (missing) | | (unavailable | 06:06 [facility] | | | | + + + +-------+ + + + + | Result panel 41 | + + + + + +------+ + + | | 2021-10-27 | [facility] | 28 | (missing) | (missing) | | (unavailable | 06:06 [facility] | | | | + + + +------+ + + + + | Result panel 42 | + + + + + +-------+ + + | | 2021-10-27 | [facility] | 9.8 | (missing) | (missing) | | (unavailable | 06:06 [facility] | | | | + + + +-------+ + + + + | Result panel 43 | + + + + + +-------+---------+ + | | 2021-10-27 | [facility] | 7.9 | mg/dL | (missing) | | (unavailable | 06:06 [facility] | | | | + + + +-------+---------+ + + + | Result panel 44 | + + + + + +-------+ + + | | 2021-10-27 | [facility] | 6.4 | (missing) | (missing) | | (unavailable | 06:06 [facility] | | | | + + + +-------+ + + + + | Result panel 45 | + + + + + +-------+ + + | | 2021-10-27 | [facility] | 2.8 | (missing) | (missing) | | (unavailable | 06:06 [facility] | | | | + + + +-------+ + + + + | Result panel 46 | + + + + + +-------+ + + | | 2021-10-27 | [facility] | 3.6 | (missing) | (missing) | | (unavailable | 06:06 [facility] | | | + + + +-------+ + + + + | Result panel 47 | + + + + + +--------+ + + | | 2021-10-27 | [facility] | 0.78 | (missing) | (missing) | | (unavailable | 06:06 [facility] | | | + + + +--------+ + + + + | Result panel 48 | + + + + + +-------+ + + | | 2021-10-27 | [facility] | 0.3 | (missing) | (missing) | | (unavailable | 06:06 [facility] | | | + + + +-------+ + + + + | Result panel 49 | + + + + + +------+ + + | | 2021-10-27 | [facility] | 13 | (missing) | (missing) | | (unavailable | 06:06 [facility] | | | + + + +------+ + + + + | Result panel 50 | + + + + + +------+ + + | | 2021-10-27 | [facility] | 14 | (missing) | (missing) | | (unavailable | 06:06 [facility] | | | + + + +------+ + + + + | Result panel 51 | + + + + + +------+ + + | | 2021-10-27 | [facility] | 82 | (missing) | (missing) | | (unavailable | 06:06 [facility] | | | + + + +------+ + + + + | Result panel 52 | + + + + + +-------+ + + | | 2021-10-27 | [facility] | 128 | (missing) | (missing) | | (unavailable | 11:26 | [facility] | | | + + + +-------+ + + + + | Result panel 53 | + + + + + + + + + | | 2022-01-15 | [facility] | NEGATIVE | (missing) | (missing) | | (unavailable | 17:00 [facility] | | | | + + + + + + + + + | Result panel 54 | + + + + + + + + + | | 2022-01-15 | [facility] | NEGATIVE | (missing) | (missing) | | (unavailable | 17:00 [facility] | | | + + + + + + + + + | Result panel 55 | + + + + + + + + + | | 2022-01-15 | [facility] | NEGATIVE | (missing) | (missing) | | (unavailable | 17:00 [facility] | | | + + + + + + + + + | Result panel 56 | + + + + + + + + + | | 2022-01-15 | [facility] | NEGATIVE | (missing) | (missing) | | (unavailable | 17:00 [facility] | | | + + + + + + + + + | Result panel 57 | + + + + + + + + + | | 2022-01-15 | [facility] | NEGATIVE | (missing) | (missing) | | (unavailable | 17:00 [facility] | | | + + + + + + + + + | Result panel 58 | + + + + + + + + + | | 2022-02-18 | [facility] | NEGATIVE | (missing) | (missing) | | (unavailable | 12:50 [facility] | | | + + + + + + + + + | Result panel 59 | + + + + + + + + + | | 2022-02-18 | [facility] | NEGATIVE | (missing) | (missing) | | (unavailable | 12:50 [facility] | | | + + + + + + + + + | Result panel 60 | + + + + + + + + + | | 2022-02-18 | [facility] | NEGATIVE | (missing) | (missing) | | (unavailable | 12:50 [facility] | | | + + + + + + + + + | Result panel 61 | + + + + + + + + + | | 2022-02-18 | [facility] | NEGATIVE | (missing) | (missing) | | (unavailable | 12:50 [facility] | | | + + + + + + + + + | Result panel 62 | + + + + + +-------+ + + | | 2022-02-18 | [facility] | 9.6 | (missing) | (missing) | | (unavailable | 13:01 [facility] | | | + + + +-------+ + + + + | Result panel 63 | + + + + + +--------+ + + | | 2022-02-18 | [facility] | 4.96 | (missing) | (missing) | | (unavailable | 13:01 [facility] | | | + + + +--------+ + + + + | Result panel 64 | + + + + + +--------+ + + | | 2022-02-18 | [facility] | 15.6 | (missing) | (missing) | | (unavailable | 13:01 [facility] | | | + + + +--------+ + + + + | Result panel 65 | + + + + + +--------+ + + | | 2022-02-18 | [facility] | 47.1 | (missing) | (missing) | | (unavailable | 13:01 | [facility] | | | | + + + +--------+ + + + + | Result panel 66 | + + + + + +--------+ + + | | 2022-02-18 | [facility] | 94.9 | (missing) | (missing) | | (unavailable | 13:01 [facility] | | | + + + +--------+ + + + + | Result panel 67 | + + + + + +--------+ + + | | 2022-02-18 | [facility] | 31.6 | (missing) | (missing) | | (unavailable | 13:01 [facility] | | | + + + +--------+ + + + + | Result panel 68 | + + + + + +--------+ + + | | 2022-02-18 | [facility] | 33.3 | (missing) | (missing) | | (unavailable | 13:01 [facility] | | | + + + +--------+ + + + + | Result panel 69 | + + + + + +--------+ + + | | 2022-02-18 | [facility] | 14.1 | (missing) | (missing) | | (unavailable | 13:01 [facility] | | | | + + + +--------+ + + + + | Result panel 70 | + + + + + +-------+ + + | | 2022-02-18 | [facility] | 242 | (missing) | (missing) | | (unavailable | 13:01 [facility] | | | | + + + +-------+ + + + + | Result panel 71 | + + + + + +--------+ + + | | 2022-02-18 | [facility] | 70.0 | (missing) | (missing) | | (unavailable | 13:01 [facility] | | | | + + + +--------+ + + + + | Result panel 72 | + + + + + +--------+ + + | | 2022-02-18 | [facility] | 18.5 | (missing) | (missing) | | (unavailable | 13:01 [facility] | | | | + + + +--------+ + + + + | Result panel 73 | + + + + + +-------+ + + | | 2022-02-18 | [facility] | 8.7 | (missing) | (missing) | | (unavailable | 13:01 [facility] | | | | + + + +-------+ + + + + | Result panel 74 | + + + + + +-------+ + + | | 2022-02-18 | [facility] | 1.6 | (missing) | (missing) | | (unavailable | 13:01 [facility] | | | | + + + +-------+ + + + + | Result panel 75 | + + + + + +-------+ + + | | 2022-02-18 | [facility] | 1.2 | (missing) | (missing) | | (unavailable | 13:01 [facility] | | | | + + + +-------+ + + + + | Result panel 76 | + + + + + +-------+---------+ + | | 2022-02-18 | [facility] | 196 | mg/dL | (missing) | | (unavailable | 13:01 [facility] | | | | + + + +-------+---------+ + + + | Result panel 77 | + + + + + +------+---------+ + | | 2022-02-18 | [facility] | 13 | mg/dL | (missing) | | (unavailable | 13:01 [facility] | | | | + + + +------+---------+ + + + | Result panel 78 | + + + + + +--------+---------+ + | | 2022-02-18 | [facility] | 0.97 | mg/dL | (missing) | | (unavailable | 13:01 [facility] | | | | + + + +--------+---------+ + + + | Result panel 79 | + + + + + +------+ + + | | 2022-02-18 | [facility] | 82 | (missing) | (missing) | | (unavailable | 13:01 [facility] | | | | + + + +------+ + + + + | Result panel 80 | + + + + + +---------+ + + | | 2022-02-18 | [facility] | 13.40 | (missing) | (missing) | | (unavailable | 13:01 [facility] | | | | + + + +---------+ + + + + | Result panel 81 | + + + + + +-------+ + + | | 2022-02-18 | [facility] | 139 | (missing) | (missing) | | (unavailable | 13:01 [facility] | | | | + + + +-------+ + + + + | Result panel 82 | + + + + + +-------+ + + | | 2022-02-18 | [facility] | 4.1 | (missing) | (missing) | | (unavailable | 13:01 [facility] | | | | + + + +-------+ + + + + | Result panel 83 | + + + + + +-------+ + + | | 2022-02-18 | [facility] | 104 | (missing) | (missing) | | (unavailable | 13:01 [facility] | | | | + + + +-------+ + + + + | Result panel 84 | + + + + + +------+ + + | | 2022-02-18 | [facility] | 23 | (missing) | (missing) | | (unavailable | 13:01 [facility] | | | | + + + +------+ + + + + | Result panel 85 | + + + + + +--------+ + + | | 2022-02-18 | [facility] | 16.1 | (missing) | (missing) | | (unavailable | 13:01 [facility] | | | | + + + +--------+ + + + + | Result panel 86 | + + + + + +-------+---------+ + | | 2022-02-18 | [facility] | 9.0 | mg/dL | (missing) | | (unavailable | 13:01 [facility] | | | | + + + +-------+---------+ + + + | Result panel 87 | + + + + + +-------+ + + | | 2022-02-18 | [facility] | 7.6 | (missing) | (missing) | | (unavailable | 13:01 [facility] | | | | + + + +-------+ + + + + | Result panel 88 | + + + + + +-------+ + + | | 2022-02-18 | [facility] | 3.2 | (missing) | (missing) | | (unavailable | 13:01 [facility] | | | | + + + +-------+ + + + + | Result panel 89 | + + + + + +-------+ + + | | 2022-02-18 | [facility] | 4.4 | (missing) | (missing) | | (unavailable | 13:01 [facility] | | | | + + + +-------+ + + + + | Result panel 90 | + + + + + +--------+ + + | | 2022-02-18 | [facility] | 0.73 | (missing) | (missing) | | (unavailable | 13:01 [facility] | | | | + + + +--------+ + + + + | Result panel 91 | + + + + + +-------+ + + | | 2022-02-18 | [facility] | 0.4 | (missing) | (missing) | | (unavailable | 13:01 [facility] | | | | + + + +-------+ + + + + | Result panel 92 | + + + + + +------+ + + | | 2022-02-18 | [facility] | 10 | (missing) | (missing) | | (unavailable | 13:01 [facility] | | | | + + + +------+ + + + + | Result panel 93 | + + + + + +------+ + + | | 2022-02-18 | [facility] | 21 | (missing) | (missing) | | (unavailable | 13:01 [facility] | | | | + + + +------+ + + + + | Result panel 94 | + + + + + +-------+ + + | | 2022-02-18 | [facility] | 118 | (missing) | (missing) | | (unavailable | 13:01 [facility] | | | | + + + +-------+ + + + + | Result panel 95 | + + + + + +------+ + + | | 2022-02-18 | [facility] | 67 | (missing) | (missing) | | (unavailable | 13:01 [facility] | | | | + + + +------+ + + + + | Result panel 96 | + + + + + +--------+ + + | | 2022-02-18 | [facility] | 13.2 | (missing) | (missing) | | (unavailable | 13:01 [facility] | | | | + + + +--------+ + + + + | Result panel 97 | + + + + + + + + + | | 2022-02-18 | [facility] | YELLOW | (missing) | (missing) | | (unavailable | 14:34 [facility] | | | | + + + + + + + + + | Result panel 98 | + + + + + +---------+ + + | | 2022-02-18 | [facility] | CLEAR | (missing) | (missing) | | (unavailable | 14:34 [facility] | | | | + + + +---------+ + + + + | Result panel 99 | + + + + + + + + + | | 2022-02-18 | [facility] | NEGATIVE | (missing) | (missing) | | (unavailable | 14:34 [facility] | | | | + + + + + + + + + | Result panel 100 | + + + + + + + + + | | 2022-02-18 | [facility] | NEGATIVE | (missing) | (missing) | | (unavailable | 14:34 [facility] | | | | + + + + + + + + + | Result panel 101 | + + + + + + + + + | | 2022-02-18 | [facility] | NEGATIVE | (missing) | (missing) | | (unavailable | 14:34 [facility] | | | | + + + + + + + + + | Result panel 102 | + + + + + +---------+ + + | | 2022-02-18 | [facility] | 1.010 | (missing) | (missing) | | (unavailable | 14:34 [facility] | | | | + + + +---------+ + + + + | Result panel 103 | + + + + + + + + + | | 2022-02-18 | [facility] | NEGATIVE | (missing) | (missing) | | (unavailable | 14:34 [facility] | | | | + + + + + + + + + | Result panel 104 | + + + + + +-------+ + + | | 2022-02-18 | [facility] | 6.0 | (missing) | (missing) | | (unavailable | 14:34 [facility] | | | | + + + +-------+ + + + + | Result panel 105 | + + + + + + + + + | | 2022-02-18 | [facility] | NEGATIVE | (missing) | (missing) | | (unavailable | 14:34 [facility] | | | | + + + + + + + + + | Result panel 106 | + + + + + + + + + | | 2022-02-18 | [facility] | NORMAL | (missing) | (missing) | | (unavailable | 14:34 [facility] | | | | + + + + + + + + + | Result panel 107 | + + + + + + + + + | | 2022-02-18 | [facility] | NEGATIVE | (missing) | (missing) | | (unavailable | 14:34 [facility] | | | | + + + + + + + + + | Result panel 108 | + + + + + + + + + | | 2022-02-18 | [facility] | NEGATIVE | (missing) | (missing) | | (unavailable | 14:34 [facility] | | | | + + + + + + + + + | Result panel 109 | + + + + + +-------+ + + | | 2022-10-18 | [facility] | 122 | (missing) | (missing) | | (unavailable | 20:46:07 [facility] | | | | + + + +-------+ + + + + | Result panel 110 | + + + + + +-------+ + + | | 2022-10-18 | [facility] | 9.2 | (missing) | (missing) | | (unavailable | 20:48:07 [facility] | | | | + + + +-------+ + + + + | Result panel 111 | + + + + + +--------+ + + | | 2022-10-18 | [facility] | 59.4 | (missing) | (missing) | | (unavailable | 20:48:07 [facility] | | | | + + + +--------+ + + + + | Result panel 112 | + + + + + +--------+ + + | | 2022-10-18 | [facility] | 26.8 | (missing) | (missing) | | (unavailable | 20:48:07 [facility] | | | | + + + +--------+ + + + + | Result panel 113 | + + + + + +--------+ + + | | 2022-10-18 | [facility] | 10.3 | (missing) | (missing) | | (unavailable | 20:48:07 [facility] | | | | + + + +--------+ + + + + | Result panel 114 | + + + + + +-------+ + + | | 2022-10-18 | [facility] | 2.5 | (missing) | (missing) | | (unavailable | 20:48:07 [facility] | | | | + + + +-------+ + + + + | Result panel 115 | + + + + + +-------+ + + | | 2022-10-18 | [facility] | 1.0 | (missing) | (missing) | | (unavailable | 20:48:07 [facility] | | | | + + + +-------+ + + + + | Result panel 116 | + + + + + +-------+---------+ + | | 2022-10-18 | [facility] | 120 | mg/dL | (missing) | | (unavailable | 20:48:07 [facility] | | | | + + + +-------+---------+ + + + | Result panel 117 | + + + + + +------+---------+ + | | 2022-10-18 | [facility] | 11 | mg/dL | (missing) | | (unavailable | 20:48:07 [facility] | | | | + + + +------+---------+ + + + | Result panel 118 | + + + + + +--------+---------+ + | | 2022-10-18 | [facility] | 0.99 | mg/dL | (missing) | | (unavailable | [facility]48[facility]07 [facility] | | | | + + + +--------+---------+ + + + | Result panel 119 | + + + + + +------+ + + | | 2022-10-18 | [facility] | 80 | (missing) | (missing) | | (unavailable | [facility]48[facility]07 [facility] | | | | + + + +------+ + + + + | Result panel 120 | + + + + + +--------+ + + | | 2022-10-18 | [facility] | 5.03 | (missing) | (missing) | | (unavailable | [facility]48[facility]07 [facility] | | | | + + + +--------+ + + + + | Result panel 121 | + + + + + +---------+ + + | | 2022-10-18 | [facility] | 11.11 | (missing) | (missing) | | (unavailable | [facility]48[facility]07 [facility] | | | | + + + +---------+ + + + + | Result panel 122 | + + + + + +-------+ + + | | 2022-10-18 | [facility] | 140 | (missing) | (missing) | | (unavailable | [facility]48[facility]07 [facility] | | | | + + + +-------+ + + + + | Result panel 123 | + + + + + +-------+ + + | | 2022-10-18 | [facility] | 4.4 | (missing) | (missing) | | (unavailable | [facility]48[facility]07 [facility] | | | | + + + +-------+ + + + + | Result panel 124 | + + + + + +-------+ + + | | 2022-10-18 | [facility] | 104 | (missing) | (missing) | | (unavailable | [facility]48[facility]07 [facility] | | | | + + + +-------+ + + + + | Result panel 125 | + + + + + +------+ + + | | 2022-10-18 | [facility] | 29 | (missing) | (missing) | | (unavailable | [facility]48[facility]07 [facility] | | | | + + + +------+ + + + + | Result panel 126 | + + + + + +--------+ + + | | 2022-10-18 | [facility] | 11.4 | (missing) | (missing) | | (unavailable | [facility]48[facility]07 [facility] | | | | + + + +--------+ + + + + | Result panel 127 | + + + + + +-------+---------+ + | | 2022-10-18 | [facility] | 8.7 | mg/dL | (missing) | | (unavailable | [facility]48[facility]07 [facility] | | | | + + + +-------+---------+ + + + | Result panel 128 | + + + + + +-------+---------+ + | | 2022-10-18 | [facility] | 1.9 | mg/dL | (missing) | | (unavailable | [facility]48:07 [facility] | | | | + + + +-------+---------+ + + + | Result panel 129 | + + + + + +-------+ + + | | 2022-10-18 | [facility] | 7.9 | (missing) | (missing) | | (unavailable | [facility]48:07 [facility] | | | | + + + +-------+ + + + + | Result panel 130 | + + + + + +-------+ + + | | 2022-10-18 | [facility] | 3.5 | (missing) | (missing) | | (unavailable | [facility]48:07 [facility] | | | | + + + +-------+ + + + + | Result panel 131 | + + + + + +--------+ + + | | 2022-10-18 | [facility] | 15.8 | (missing) | (missing) | | (unavailable | [facility]48[facility]07 [facility] | | | | + + + +--------+ + + + + | Result panel 132 | + + + + + +-------+ + + | | 2022-10-18 | [facility] | 4.4 | (missing) | (missing) | | (unavailable | 20:48:07 [facility] | | | + + + +-------+ + + + + | Result panel 133 | + + + + + +--------+ + + | | 2022-10-18 | [facility] | 0.80 | (missing) | (missing) | | (unavailable | 20:48:07 [facility] | | | | + + + +--------+ + + + + | Result panel 134 | + + + + + +-------+ + + | | 2022-10-18 | [facility] | 0.2 | (missing) | (missing) | | (unavailable | 20:48:07 [facility] | | | + + + +-------+ + + + + | Result panel 135 | + + + + + +------+ + + | | 2022-10-18 | [facility] | 21 | (missing) | (missing) | | (unavailable | 20:48:07 [facility] | | | + + + +------+ + + + + | Result panel 136 | + + + + + +------+ + + | | 2022-10-18 | [facility] | 31 | (missing) | (missing) | | (unavailable | 20:48:07 [facility] | | | + + + +------+ + + + + | Result panel 137 | + + + + + +-------+ + + | | 2022-10-18 | [facility] | 126 | (missing) | (missing) | | (unavailable | 20:48:07 [facility] | | | + + + +-------+ + + + + | Result panel 138 | + + + + + +-------+ + + | | 2022-10-18 | [facility] | 9.4 | (missing) | (missing) | | (unavailable | 20:48:07 [facility] | | | + + + +-------+ + + + + | Result panel 139 | + + + + + +--------+ + + | | 2022-10-18 | [facility] | 46.8 | (missing) | (missing) | | (unavailable | 20:48:07 [facility] | | | + + + +--------+ + + + + | Result panel 140 | + + + + + +--------+ + + | | 2022-10-18 | [facility] | 93.0 | (missing) | (missing) | | (unavailable | 20:48:07 [facility] | | | + + + +--------+ + + + + | Result panel 141 | + + + + + +--------+ + + | | 2022-10-18 | [facility] | 31.4 | (missing) | (missing) | | (unavailable | 20:48:07 [facility] | | | + + + +--------+ + + + + | Result panel 142 | + + + + + +--------+ + + | | 2022-10-18 | [facility] | 33.8 | (missing) | (missing) | | (unavailable | 20:48:07 [facility] | | | + + + +--------+ + + + + | Result panel 143 | + + + + + +--------+ + + | | 2022-10-18 | [facility] | 14.7 | (missing) | (missing) | | (unavailable | 20:48:07 [facility] | | | + + + +--------+ + + + + | Result panel 144 | + + + + + +-------+ + + | | 2022-10-18 | [facility] | 290 | (missing) | (missing) | | (unavailable | 20:48:07 [facility] | | | + + + +-------+ + + + + | Result panel 145 | + + + + + +--------+ + + | | 2022-10-22 | [facility] | 10.4 | (missing) | (missing) | | (unavailable | 22:58:07 [facility] | | | + + + +--------+ + + + + | Result panel 146 | + + + + + +--------+ + + | | 2022-10-22 | [facility] | 4.54 | (missing) | (missing) | | (unavailable | 22:58:07 [facility] | | | + + + +--------+ + + + + | Result panel 147 | + + + + + +--------+ + + | | 2022-10-22 | [facility] | 14.1 | (missing) | (missing) | | (unavailable | 22:58:07 [facility] | | | + + + +--------+ + + + + | Result panel 148 | + + + + + +--------+ + + | | 2022-10-22 | [facility] | 43.9 | (missing) | (missing) | | (unavailable | 22:58:07 [facility] | | | + + + +--------+ + + + + | Result panel 149 | + + + + + +--------+ + + | | 2022-10-22 | [facility] | 96.6 | (missing) | (missing) | | (unavailable | 22:58:07 [facility] | | | + + + +--------+ + + + + | Result panel 150 | + + + + + +--------+ + + | | 2022-10-22 | [facility] | 31.0 | (missing) | (missing) | | (unavailable | 22:58:07 [facility] | | | + + + +--------+ + + + + | Result panel 151 | + + + + + +--------+ + + | | 2022-10-22 | [facility] | 32.0 | (missing) | (missing) | | (unavailable | 22:58:07 [facility] | | | + + + +--------+ + + + + | Result panel 152 | + + + + + +--------+ + + | | 2022-10-22 | [facility] | 14.7 | (missing) | (missing) | | (unavailable | 22:58:07 [facility] | | | + + + +--------+ + + + + | Result panel 153 | + + + + + +-------+ + + | | 2022-10-22 | [facility] | 274 | (missing) | (missing) | | (unavailable | 22:58:07 [facility] | | | + + + +-------+ + + + + | Result panel 154 | + + + + + +--------+ + + | | 2022-10-22 | [facility] | 46.3 | (missing) | (missing) | | (unavailable | 22:58:07 [facility] | | | + + + +--------+ + + + + | Result panel 155 | + + + + + +--------+ + + | | 2022-10-22 | [facility] | 44.7 | (missing) | (missing) | | (unavailable | 22:58:07 [facility] | | | + + + +--------+ + + + + | Result panel 156 | + + + + + +-------+ + + | | 2022-10-22 | [facility] | 6.8 | (missing) | (missing) | | (unavailable | 22:58:07 [facility] | | | + + + +-------+ + + + + | Result panel 157 | + + + + + +-------+ + + | | 2022-10-22 | [facility] | 1.2 | (missing) | (missing) | | (unavailable | 22:58:07 [facility] | | | + + + +-------+ + + + + | Result panel 158 | + + + + + +-------+ + + | | 2022-10-22 | [facility] | 1.0 | (missing) | (missing) | | (unavailable | 22:58:07 [facility] | | | + + + +-------+ + + + + | Result panel 159 | + + + + + +--------+ + + | | 2022-10-22 | [facility] | 13.9 | (missing) | (missing) | | (unavailable | 22:58:07 [facility] | | | + + + +--------+ + + + + | Result panel 160 | + + + + + +--------+ + + | | 2022-10-22 | [facility] | 1.12 | (missing) | (missing) | | (unavailable | 22:58:07 [facility] | | | + + + +--------+ + + + + | Result panel 161 | + + + + + +--------+ + + | | 2022-10-22 | [facility] | 22.3 | (missing) | (missing) | | (unavailable | 22:58:07 [facility] | | | + + + +--------+ + + + + | Result panel 162 | + + + + + +--------+ + + | | 2022-10-22 | [facility] | 3.31 | (missing) | (missing) | | (unavailable | 22:58:07 [facility] | | | + + + +--------+ + + + + | Result panel 163 | + + + + + +-------+---------+ + | | 2022-10-22 | [facility] | 303 | mg/dL | (missing) | | (unavailable | 22:58:07 [facility] | | | + + + +-------+---------+ + + + | Result panel 164 | + + + + + +------+---------+ + | | 2022-10-22 | [facility] | 15 | mg/dL | (missing) | | (unavailable | 22:58:07 [facility] | | | + + + +------+---------+ + + + | Result panel 165 | + + + + + +--------+---------+ + | | 2022-10-22 | [facility] | 1.36 | mg/dL | (missing) | | (unavailable | 22:58:07 [facility] | | | + + + +--------+---------+ + + + | Result panel 166 | + + + + + +------+ + + | | 2022-10-22 | [facility] | 55 | (missing) | (missing) | | (unavailable | 22:58:07 [facility] | | | + + + +------+ + + + + | Result panel 167 | + + + + + +---------+ + + | | 2022-10-22 | [facility] | 11.02 | (missing) | (missing) | | (unavailable | 22:58:07 [facility] | | | + + + +---------+ + + + + | Result panel 168 | + + + + + +-------+ + + | | 2022-10-22 | [facility] | 143 | (missing) | (missing) | | (unavailable | 22:58:07 [facility] | | | + + + +-------+ + + + + | Result panel 169 | + + + + + +-------+ + + | | 2022-10-22 | [facility] | 4.9 | (missing) | (missing) | | (unavailable | 22:58:07 [facility] | | | + + + +-------+ + + + + | Result panel 170 | + + + + + +-------+ + + | | 2022-10-22 | [facility] | 106 | (missing) | (missing) | | (unavailable | 22:58:07 [facility] | | | + + + +-------+ + + + + | Result panel 171 | + + + + + +------+ + + | | 2022-10-22 | [facility] | 22 | (missing) | (missing) | | (unavailable | 22:58:07 [facility] | | | + + + +------+ + + + + | Result panel 172 | + + + + + +--------+ + + | | 2022-10-22 | [facility] | 19.9 | (missing) | (missing) | | (unavailable | 22:58:07 [facility] | | | + + + +--------+ + + + + | Result panel 173 | + + + + + +-------+---------+ + | | 2022-10-22 | [facility] | 7.9 | mg/dL | (missing) | | (unavailable | 22:58:07 [facility] | | | + + + +-------+---------+ + + + | Result panel 174 | + + + + + +-------+---------+ + | | 2022-10-22 | [facility] | 2.0 | mg/dL | (missing) | | (unavailable | 22:58:07 [facility] | | | + + + +-------+---------+ + + + | Result panel 175 | + + + + + +-------+ + + | | 2022-10-22 | [facility] | 6.6 | (missing) | (missing) | | (unavailable | 22:58:07 [facility] | | | + + + +-------+ + + + + | Result panel 176 | + + + + + +-------+ + + | | 2022-10-22 | [facility] | 3.0 | (missing) | (missing) | | (unavailable | 22:58:07 [facility] | | | + + + +-------+ + + + + | Result panel 177 | + + + + + +-------+ + + | | 2022-10-22 | [facility] | 3.6 | (missing) | (missing) | | (unavailable | 22:58:07 [facility] | | | + + + +-------+ + + + + | Result panel 178 | + + + + + +--------+ + + | | 2022-10-22 | [facility] | 0.83 | (missing) | (missing) | | (unavailable | 22:58:07 [facility] | | | + + + +--------+ + + + + | Result panel 179 | + + + + + +-------+ + + | | 2022-10-22 | [facility] | 0.2 | (missing) | (missing) | | (unavailable | 22:58:07 [facility] | | | + + + +-------+ + + + + | Result panel 180 | + + + + + +------+ + + | | 2022-10-22 | [facility] | 49 | (missing) | (missing) | | (unavailable | 22:58:07 [facility] | | | + + + +------+ + + + + | Result panel 181 | + + + + + +------+ + + | | 2022-10-22 | [facility] | 30 | (missing) | (missing) | | (unavailable | 22:58:07 [facility] | | | + + + +------+ + + + + | Result panel 182 | + + + + + +-------+ + + | | 2022-10-22 | [facility] | 127 | (missing) | (missing) | | (unavailable | 22:58:07 [facility] | | | + + + +-------+ + + + + | Result panel 183 | + + + + + + + + + | | 2022-10-22 | [facility] | NEGATIVE | (missing) | (missing) | | (unavailable | 22:58:07 [facility] | | | + + + + + + + + + | Result panel 184 | + + + + + +------+ + + | | 2022-10-22 | [facility] | <3 | (missing) | (missing) | | (unavailable | 22:58:07 [facility] | | | + + + +------+ + + + + | Result panel 185 | + + + + + + + + + | | 2022-10-22 | [facility] | NEGATIVE | (missing) | (missing) | | (unavailable | 23:10:07 [facility] | | | + + + + + + + + + | Result panel 186 | + + + + + + + + + | | 2022-10-22 | [facility] | NEGATIVE | (missing) | (missing) | | (unavailable | 23:10:07 [facility] | | | + + + + + + + + + | Result panel 187 | + + + + + + + + + | | 2022-10-22 | [facility] | NEGATIVE | (missing) | (missing) | | (unavailable | 23:10:07 [facility] | | | + + + + + + + + + | Result panel 188 | + + + + + + + + + | | 2022-10-22 | [facility] | NEGATIVE | (missing) | (missing) | | (unavailable | 23:10:07 [facility] | | | + + + + + + + + + | Result panel 189 | + + + + + +--------+ + + | | 2022-10-23 | [facility] | 7.21 | (missing) | (missing) | | (unavailable | 01:18:07 [facility] | | | + + + +--------+ + + + + | Result panel 190 | + + + + + +--------+ + + | | 2022-10-23 | [facility] | 61.1 | (missing) | (missing) | | (unavailable | 01:18:07 [facility] | | | + + + +--------+ + + + + | Result panel 191 | + + + + + +-------+ + + | | 2022-10-23 | [facility] | 100 | (missing) | (missing) | | (unavailable | 01:18:07 [facility] | | | + + + +-------+ + + + + | Result panel 192 | + + + + + +--------+ + + | | 2022-10-23 | [facility] | 24.5 | (missing) | (missing) | | (unavailable | 01:18:07 [facility] | | | + + + +--------+ + + + + | Result panel 193 | + + + + + +--------+ + + | | 2022-10-23 | [facility] | -4.5 | (missing) | (missing) | | (unavailable | 01:18:07 [facility] | | | + + + +--------+ + + + + | Result panel 194 | + + + + + +--------+ + + | | 2022-10-23 | [facility] | 97.7 | (missing) | (missing) | | (unavailable | 01:18:07 [facility] | | | + + + +--------+ + + + + | Result panel 195 | + + + + + + + + + | | 2022-10-23 | [facility] | NOT STATED | (missing) | (missing) | | (unavailable | 01:18:07 [facility] | | | | + + + + + + + + + | Result panel 196 | + + + + + +--------+ + + | | 2022-10-23 | [facility] | 26.4 | (missing) | (missing) | | (unavailable | 01:18:07 [facility] | | | + + + +--------+ + + + + | Result panel 197 | + + + + + +-------+ + + | | 2022-10-23 | [facility] | 183 | (missing) | (missing) | | (unavailable | 02:25:07 [facility] | | | + + + +-------+ + + + + | Result panel 198 | + + + + + +---------+ + + | | 2022-10-23 | [facility] | 504.4 | (missing) | (missing) | | (unavailable | 02:40:07 [facility] | | | | + + + +---------+ + + Social History No information. Vital Signs + + + +---------+ | date | measurement | value | units | + + + +---------+ | 2021-05-19 00:00 | BMI | 32.3 | kg/m2 | + + + +---------+ | 2021-05-19 00:00 | BP_diastolic | 70 | mmHg | + + + +---------+ | 2021-05-19 00:00 | BP_systolic | 137 | mmHg | + + + +---------+ | 2021-05-19 00:00 | heart_rate | 103 | /min | + + + +---------+ | 2021-05-19 00:00 | height_metric | 175.26 | cm | + + + +---------+ | 2021-05-19 00:00 | height_standard | 69 | in | + + + +---------+ | 2021-05-19 00:00 | o2_saturation | 95 | % | + + + +---------+ | 2021-05-19 00:00 | respiration_rate | 25 | /min | + + + +---------+ | 2021-05-19 00:00 | temperature_metric | 36.83 | C | | | | | | + + + +---------+ | 2021-05-19 00:00 | | 98.3 | F | | | temperature_standar | | | | | d | | | + + + +---------+ | 2021-05-19 00:00 | weight_metric | 99.28 | kg | + + + +---------+ | 2021-05-19 00:00 | weight_standard | 218.87 | lb | + + + +---------+ | 2021-05-19 00:00 | weight_standard | 218.88 | lb | + + + +---------+ | 2021-05-23 00:00 | BMI | 32.3 | kg/m2 | + + + +---------+ | 2021-05-23 00:00 | BP_diastolic | 88 | mmHg | + + + +---------+ | 2021-05-23 00:00 | BP_systolic | 122 | mmHg | + + + +---------+ | 2021-05-23 00:00 | heart_rate | 100 | /min | + + + +---------+ | 2021-05-23 00:00 | height_metric | 175.26 | cm | + + + +---------+ | 2021-05-23 00:00 | height_standard | 69 | in | + + + +---------+ | 2021-05-23 00:00 | o2_saturation | 96 | % | + + + +---------+ | 2021-05-23 00:00 | respiration_rate | 26 | /min | + + + +---------+ | 2021-05-23 00:00 | temperature_metric | 37.06 | C | | | | | | + + + +---------+ | 2021-05-23 00:00 | | 98.7 | F | | | temperature_standar | | | | | d | | | + + + +---------+ | 2021-05-23 00:00 | weight_metric | 99.28 | kg | + + + +---------+ | 2021-05-23 00:00 | weight_standard | 218.87 | lb | + + + +---------+ | 2021-05-23 00:00 | weight_standard | 218.88 | lb | + + + +---------+ | 2021-07-07 00:00 | BMI | 32.3 | kg/m2 | + + + +---------+ | 2021-07-07 00:00 | BP_diastolic | 66 | mmHg | + + + +---------+ | 2021-07-07 00:00 | BP_systolic | 108 | mmHg | + + + +---------+ | 2021-07-07 00:00 | heart_rate | 109 | /min | + + + +---------+ | 2021-07-07 00:00 | height_metric | 175.26 | cm | + + + +---------+ | 2021-07-07 00:00 | height_standard | 69 | in | + + + +---------+ | 2021-07-07 00:00 | o2_saturation | 94 | % | + + + +---------+ | 2021-07-07 00:00 | respiration_rate | 24 | /min | + + + +---------+ | 2021-07-07 00:00 | temperature_metric | 36.89 | C | | | | | | + + + +---------+ | 2021-07-07 00:00 | | 98.4 | F | | | temperature_standar | | | | | d | | | + + + +---------+ | 2021-07-07 00:00 | weight_metric | 99.28 | kg | + + + +---------+ | 2021-07-07 00:00 | weight_standard | 218.87 | lb | + + + +---------+ | 2021-07-07 00:00 | weight_standard | 218.88 | lb | + + + +---------+ | 2021-08-30 00:00 | BMI | 32.3 | kg/m2 | + + + +---------+ | 2021-08-30 00:00 | BP_diastolic | 66 | mmHg | + + + +---------+ | 2021-08-30 00:00 | BP_systolic | 118 | mmHg | + + + +---------+ | 2021-08-30 00:00 | heart_rate | 94 | /min | + + + +---------+ | 2021-08-30 00:00 | height_metric | 175.26 | cm | + + + +---------+ | 2021-08-30 00:00 | height_standard | 69 | in | + + + +---------+ | 2021-08-30 00:00 | o2_saturation | 94 | % | + + + +---------+ | 2021-08-30 00:00 | respiration_rate | 18 | /min | + + + +---------+ | 2021-08-30 00:00 | temperature_metric | 36.72 | C | | | | | | + + + +---------+ | 2021-08-30 00:00 | | 98.1 | F | | | temperature_standar | | | | | d | | | + + + +---------+ | 2021-08-30 00:00 | weight_metric | 99.28 | kg | + + + +---------+ | 2021-08-30 00:00 | weight_standard | 218.87 | lb | + + + +---------+ | 2021-08-30 00:00 | weight_standard | 218.88 | lb | + + + +---------+ | 2021-10-25 00:00 | BMI | 30.8 | kg/m2 | + + + +---------+ | 2021-10-25 00:00 | height_metric | 175.26 | cm | + + + +---------+ | 2021-10-25 00:00 | height_standard | 69 | in | + + + +---------+ | 2021-10-25 00:00 | weight_metric | 94.6 | kg | + + + +---------+ | 2021-10-25 00:00 | weight_standard | 208.56 | lb | + + + +---------+ | 2021-10-27 00:00 | BP_diastolic | 54 | mmHg | + + + +---------+ | 2021-10-27 00:00 | BP_systolic | 109 | mmHg | + + + +---------+ | 2021-10-27 00:00 | heart_rate | 90 | /min | + + + +---------+ | 2021-10-27 00:00 | o2_saturation | 92 | % | + + + +---------+ | 2021-10-27 00:00 | respiration_rate | 19 | /min | + + + +---------+ | 2021-10-27 00:00 | temperature_metric | 37.06 | C | | | | | | + + + +---------+ | 2021-10-27 00:00 | | 98.7 | F | | | temperature_standar | | | | | d | | | + + + +---------+ | 2022-01-15 00:00 | BMI | 30.8 | kg/m2 | + + + +---------+ | 2022-01-15 00:00 | BP_diastolic | 61 | mmHg | + + + +---------+ | 2022-01-15 00:00 | BP_systolic | 115 | mmHg | + + + +---------+ | 2022-01-15 00:00 | heart_rate | 101 | /min | + + + +---------+ | 2022-01-15 00:00 | height_metric | 175.26 | cm | + + + +---------+ | 2022-01-15 00:00 | height_standard | 69 | in | + + + +---------+ | 2022-01-15 00:00 | o2_saturation | 94 | % | + + + +---------+ | 2022-01-15 00:00 | respiration_rate | 18 | /min | + + + +---------+ | 2022-01-15 00:00 | temperature_metric | 36.78 | C | | | | | | + + + +---------+ | 2022-01-15 00:00 | | 98.2 | F | | | temperature_standar | | | | | d | | | + + + +---------+ | 2022-01-15 00:00 | weight_metric | 94.74 | kg | + + + +---------+ | 2022-01-15 00:00 | weight_metric | 94.75 | kg | + + + +---------+ | 2022-01-15 00:00 | weight_standard | 208.87 | lb | + + + +---------+ | 2022-01-15 00:00 | weight_standard | 208.88 | lb | + + + +---------+ | 2022-02-18 00:00 | BMI | 30.8 | kg/m2 | + + + +---------+ | 2022-02-18 00:00 | BP_diastolic | 83 | mmHg | + + + +---------+ | 2022-02-18 00:00 | BP_systolic | 109 | mmHg | + + + +---------+ | 2022-02-18 00:00 | heart_rate | 98 | /min | + + + +---------+ | 2022-02-18 00:00 | height_metric | 175.26 | cm | + + + +---------+ | 2022-02-18 00:00 | height_standard | 69 | in | + + + +---------+ | 2022-02-18 00:00 | o2_saturation | 96 | % | + + + +---------+ | 2022-02-18 00:00 | respiration_rate | 27 | /min | + + + +---------+ | 2022-02-18 00:00 | temperature_metric | 36.94 | C | | | | | | + + + +---------+ | 2022-02-18 00:00 | | 98.5 | F | | | temperature_standar | | | | | d | | | + + + +---------+ | 2022-02-18 00:00 | weight_metric | 94.74 | kg | + + + +---------+ | 2022-02-18 00:00 | weight_metric | 94.75 | kg | + + + +---------+ | 2022-02-18 00:00 | weight_standard | 208.87 | lb | + + + +---------+ | 2022-02-18 00:00 | weight_standard | 208.88 | lb | + + + +---------+ | 2022-10-18 00:00 | BMI | 30.8 | kg/m2 | + + + +---------+ | 2022-10-18 00:00 | BP_diastolic | 95 | mmHg | + + + +---------+ | 2022-10-18 00:00 | BP_systolic | 133 | mmHg | + + + +---------+ | 2022-10-18 00:00 | heart_rate | 90 | /min | + + + +---------+ | 2022-10-18 00:00 | height_metric | 175.26 | cm | + + + +---------+ | 2022-10-18 00:00 | height_standard | 69 | in | + + + +---------+ | 2022-10-18 00:00 | o2_saturation | 96 | % | + + + +---------+ | 2022-10-18 00:00 | respiration_rate | 20 | /min | + + + +---------+ | 2022-10-18 00:00 | temperature_metric | 36.89 | C | | | | | | + + + +---------+ | 2022-10-18 00:00 | | 98.4 | F | | | temperature_standar | | | | | d | | | + + + +---------+ | 2022-10-18 00:00 | weight_metric | 94.74 | kg | + + + +---------+ | 2022-10-18 00:00 | weight_metric | 94.75 | kg | + + + +---------+ | 2022-10-18 00:00 | weight_standard | 208.87 | lb | + + + +---------+ | 2022-10-18 00:00 | weight_standard | 208.88 | lb | + + + +---------+ | 2022-10-23 00:00 | BMI | 34.2 | kg/m2 | + + + +---------+ | 2022-10-23 00:00 | BP_diastolic | 81 | mmHg | + + + +---------+ | 2022-10-23 00:00 | BP_systolic | 116 | mmHg | + + + +---------+ | 2022-10-23 00:00 | heart_rate | 75 | /min | + + + +---------+ | 2022-10-23 00:00 | height_metric | 175.26 | cm | + + + +---------+ | 2022-10-23 00:00 | height_standard | 69 | in | + + + +---------+ | 2022-10-23 00:00 | o2_saturation | 100 | % | + + + +---------+ | 2022-10-23 00:00 | respiration_rate | 24 | /min | + + + +---------+ | 2022-10-23 00:00 | temperature_metric | 36.72 | C | | | | | | + + + +---------+ | 2022-10-23 00:00 | | 98.1 | F | | | temperature_standar | | | | | d | | | + + + +---------+ | 2022-10-23 00:00 | weight_metric | 104.99 | kg | + + + +---------+ | 2022-10-23 00:00 | weight_standard | 231.46 | lb | + + + +---------+"
--- OUTSIDE RECORDS SUMMARY | ~2022-11-11 | XMS | Continuity of Care Document ---
Demographics + + + | Address | [address] | | | [place] [address] | + + + | Preferred Language | Unknown | + + + | Marital Status | | + + + | Faith Affiliation | Unknown | + + + | Race | White | + + + | Ethnic Group | Not or | + + + Author + + + | Author | [facility] | + + + | Organization | [facility] | + + + | Address | [address] [facility] [address] [facility] | | | [place] [address] | + + + | Phone | | + + + Care Team Providers + + + + | Care Clinical Informatics Manager Name | Role | Phone | [...] 00:00 | Influenza, High Dose | [facility] | | | Seasonal | | + + + + | 2022-01-15 00:00 | Influenza, High Dose | [facility] | | | Seasonal | | + + + + | 2022-02-18 00:00 | Influenza, High Dose | [facility] | | | Seasonal | | + + + + | 2022-10-18 00:00 | Influenza, High Dose | [facility] | | | Seasonal | | + + + + | 2022-10-23 00:00 | Influenza, High Dose | [facility] | | | Seasonal | | + + + + Medications + + + + | date | description | facility | + + + + | 2021-10-28 00:00 | LISINOPRIL | [facility] | + + + + | 2022-01-15 00:00 | LISINOPRIL | [facility] | + + + + | 2022-02-18 00:00 | LISINOPRIL | [facility] | + + + + | 2022-10-18 00:00 | LISINOPRIL | [facility] | + + + + | 2022-10-23 00:00 | LISINOPRIL | [facility] | + + + + | 2018-10-12 00:00 | ONDANSETRON HCL | [facility] | + + + + | 2018-10-12 00:00 | ONDANSETRON HCL | [facility] | + + + + | 2018-10-12 00:00 | ONDANSETRON HCL | [facility] | + + + + | 2018-10-12 00:00 | ONDANSETRON HCL | [facility] | + + + + | 2021-10-28 00:00 | ROFLUMILAST | [facility] | + + + + | 2022-01-15 00:00 | ROFLUMILAST | [facility] | + + + + | 2022-02-18 00:00 | ROFLUMILAST | [facility] | + + + + | 2022-10-18 00:00 | ROFLUMILAST | [facility] | + + + + | 2022-10-23 00:00 | ROFLUMILAST | [facility] | + + + + | 2021-10-28 00:00 | SITAGLIPTIN PHOS/METFORMIN | [facility] | | | HCL | | + + + + | 2022-01-15 00:00 | SITAGLIPTIN PHOS/METFORMIN | [facility] | | | HCL | | + + + + | 2022-02-18 00:00 | SITAGLIPTIN PHOS/METFORMIN | [facility] | | | HCL | | + + + + | 2022-10-18 00:00 | SITAGLIPTIN PHOS/METFORMIN | [facility] | | | HCL | | + + + + | 2022-10-23 00:00 | SITAGLIPTIN PHOS/METFORMIN | [facility] | | | HCL | | + + + + | 2022-02-18 00:00 | APIXABAN | [facility] | + + + + | 2022-02-18 00:00 | APIXABAN | [facility] | + + + + | 2021-10-28 00:00 | Ergocalciferol (Vitamin | [facility] | | | D2) | | + + + + | 2022-01-15 00:00 | Ergocalciferol (Vitamin | [facility] | | | D2) | | + + + + | 2022-02-18 00:00 | Ergocalciferol (Vitamin | [facility] | | | D2) | | + + + + | 2022-10-18 00:00 | Ergocalciferol (Vitamin | [facility] | | | D2) | | + + + + | 2022-10-23 00:00 | Ergocalciferol (Vitamin | [facility] | | | D2) | | + + + + | 2016-05-06 00:00 | IPRATROPIUM/ALBUTEROL | [facility] | | | SULFATE | | + + + + | 2016-05-06 00:00 | IPRATROPIUM/ALBUTEROL | [facility] | | | SULFATE | | + + + + | 2016-05-06 00:00 | IPRATROPIUM/ALBUTEROL | [facility] | | | SULFATE | | + + + + | 2016-05-06 00:00 | IPRATROPIUM/ALBUTEROL | [facility] | | | SULFATE | | + + + + | 2017-04-24 00:00 | IPRATROPIUM/ALBUTEROL | [facility] | | | SULFATE | | + + + + | 2017-04-24 00:00 | IPRATROPIUM/ALBUTEROL | [facility] | | | SULFATE | | + + + + | 2017-04-24 00:00 | IPRATROPIUM/ALBUTEROL | [facility] | | | SULFATE | | + + + + | 2017-04-24 00:00 | IPRATROPIUM/ALBUTEROL | [facility] | | | SULFATE | | + + + + | 2021-10-28 00:00 | Beclomethasone | [facility] | | | Dipropionate | | + + + + | 2022-01-15 00:00 | Beclomethasone | [facility] | | | Dipropionate | | + + + + | 2022-02-18 00:00 | Beclomethasone | [facility] | | | Dipropionate | | + + + + | 2022-10-18 00:00 | Beclomethasone | [facility] | | | Dipropionate | | + + + + | 2022-10-23 00:00 | Beclomethasone | [facility] | | | Dipropionate | | + + + + | 2021-10-28 00:00 | UMECLIDINIUM BROMIDE | [facility] | + + + + | 2022-01-15 00:00 | UMECLIDINIUM BROMIDE | [facility] | + + + + | 2022-02-18 00:00 | UMECLIDINIUM BROMIDE | [facility] | + + + + | 2022-10-18 00:00 | UMECLIDINIUM BROMIDE | [facility] | + + + + | 2022-10-23 00:00 | UMECLIDINIUM BROMIDE | [facility] | + + + + | 2021-10-28 00:00 | FLUTICASONE PROPIONATE | [facility] | + + + + | 2022-01-15 00:00 | FLUTICASONE PROPIONATE | [facility] | + + + + | 2022-02-18 00:00 | FLUTICASONE PROPIONATE | [facility] | + + + + | 2022-10-18 00:00 | FLUTICASONE PROPIONATE | [facility] | + + + + | 2022-10-23 00:00 | FLUTICASONE PROPIONATE | [facility] | + + + + | 2021-10-27 00:00 | BENZONATATE | [facility] | + + + + | 2021-10-27 00:00 | BENZONATATE | [facility] | + + + + | 2021-10-27 00:00 | BENZONATATE | [facility] | + + + + | 2021-10-27 00:00 | BENZONATATE | [facility] | + + + + | 2016-05-06 00:00 | NICOTINE 21MG | [facility] | + + + + | 2016-05-06 00:00 | NICOTINE 21MG | [facility] | + + + + | 2016-05-06 00:00 | NICOTINE 21MG | [facility] | + + + + | 2016-05-06 00:00 | NICOTINE 21MG | [facility] | + + + + | 2021-10-28 00:00 | OMEPRAZOLE | [facility] | + + + + | 2022-01-15 00:00 | OMEPRAZOLE | [facility] | + + + + | 2022-02-18 00:00 | OMEPRAZOLE | [facility] | + + + + | 2022-10-18 00:00 | OMEPRAZOLE | [facility] | + + + + | 2022-10-23 00:00 | OMEPRAZOLE | [facility] | + + + + | 2020-05-08 00:00 | PREDNISONE | [facility] | + + + + | 2020-05-08 00:00 | PREDNISONE | [facility] | + + + + | 2020-05-08 00:00 | PREDNISONE | [facility] | + + + + | 2020-05-08 00:00 | PREDNISONE | [facility] | + + + + | 2021-10-28 00:00 | RIFABUTIN | [facility] | + + + + | 2022-01-15 00:00 | RIFABUTIN | [facility] | + + + + | 2022-02-18 00:00 | RIFABUTIN | [facility] | + + + + | 2022-10-18 00:00 | RIFABUTIN | [facility] | + + + + | 2022-10-23 00:00 | RIFABUTIN | [facility] | + + + + | 2021-11-02 00:00 | Dexamethasone | [facility] | + + + + | 2021-11-02 00:00 | Dexamethasone | [facility] | + + + + | 2021-11-02 00:00 | Dexamethasone | [facility] | + + + + | 2015-06-01 00:00 | PREDNISONE | [facility] | + + + + | 2015-06-01 00:00 | PREDNISONE | [facility] | + + + + | 2015-06-01 00:00 | PREDNISONE | [facility] | + + + + | 2015-06-01 00:00 | PREDNISONE | [facility] | + + + + | 2021-10-28 00:00 | CARBAMAZEPINE | [facility] | + + + + | 2022-01-15 00:00 | CARBAMAZEPINE | [facility] | + + + + | 2022-02-18 00:00 | CARBAMAZEPINE | [facility] | + + + + | 2022-10-18 00:00 | CARBAMAZEPINE | [facility] | + + + + | 2022-10-23 00:00 | CARBAMAZEPINE | [facility] | + + + + | 2017-02-13 00:00 | AZITHROMYCIN | [facility] | + + + + | 2017-02-13 00:00 | AZITHROMYCIN | [facility] | + + + + | 2017-02-13 00:00 | AZITHROMYCIN | [facility] | + + + + | 2017-02-13 00:00 | AZITHROMYCIN | [facility] | + + + + | 2019-06-23 00:00 | AZITHROMYCIN | [facility] | + + + + | 2019-06-23 00:00 | AZITHROMYCIN | [facility] | + + + + | 2019-06-23 00:00 | AZITHROMYCIN | [facility] | + + + + | 2019-06-23 00:00 | AZITHROMYCIN | [facility] | + + + + | 2021-10-28 00:00 | SILDENAFIL CITRATE | [facility] | + + + + | 2022-01-15 00:00 | SILDENAFIL CITRATE | [facility] | + + + + | 2022-02-18 00:00 | SILDENAFIL CITRATE | [facility] | + + + + | 2022-10-18 00:00 | SILDENAFIL CITRATE | [facility] | + + + + | 2022-10-23 00:00 | SILDENAFIL CITRATE | [facility] | + + + + | 2021-10-28 00:00 | ATORVASTATIN CALCIUM | [facility] | + + + + | 2022-01-15 00:00 | ATORVASTATIN CALCIUM | [facility] | + + + + | 2022-02-18 00:00 | ATORVASTATIN CALCIUM | [facility] | + + + + | 2022-10-18 00:00 | ATORVASTATIN CALCIUM | [facility] | + + + + | 2022-10-23 00:00 | ATORVASTATIN CALCIUM | [facility] | + + + + | 2017-04-24 00:00 | OSELTAMIVIR PHOSPHATE | [facility] | + + + + | 2017-04-24 00:00 | OSELTAMIVIR PHOSPHATE | [facility] | + + + + | 2017-04-24 00:00 | OSELTAMIVIR PHOSPHATE | [facility] | + + + + | 2017-04-24 00:00 | OSELTAMIVIR PHOSPHATE | [facility] | + + + + | 2012-09-21 00:00 | AMOXICILLIN | [facility] | + + + + | 2012-09-21 00:00 | AMOXICILLIN | [facility] | + + + + | 2012-09-21 00:00 | AMOXICILLIN | [facility] | + + + + | 2012-09-21 00:00 | AMOXICILLIN | [facility] | + + + + | 2021-10-28 00:00 | ASPIRIN | [facility] | + + + + | 2022-01-15 00:00 | ASPIRIN | [facility] | + + + + | 2022-02-18 00:00 | ASPIRIN | [facility] | + + + + | 2022-10-18 00:00 | ASPIRIN | [facility] | + + + + | 2022-10-23 00:00 | ASPIRIN | [facility] | + + + + | 2021-10-28 00:00 | CARBAMAZEPINE | [facility] | + + + + | 2022-01-15 00:00 | CARBAMAZEPINE | [facility] | + + + + | 2022-02-18 00:00 | CARBAMAZEPINE | [facility] | + + + + | 2022-10-18 00:00 | CARBAMAZEPINE | [facility] | + + + + | 2022-10-23 00:00 | CARBAMAZEPINE | [facility] | + + + + | 2016-05-06 00:00 | CEFUROXIME AXETIL | [facility] | + + + + | 2016-05-06 00:00 | CEFUROXIME AXETIL | [facility] | + + + + | 2016-05-06 00:00 | CEFUROXIME AXETIL | [facility] | + + + + | 2016-05-06 00:00 | CEFUROXIME AXETIL | [facility] | + + + + | 2017-04-24 00:00 | CEFUROXIME AXETIL | [facility] | + + + + | 2017-04-24 00:00 | CEFUROXIME AXETIL | [facility] | + + + + | 2017-04-24 00:00 | CEFUROXIME AXETIL | [facility] | + + + + | 2017-04-24 00:00 | CEFUROXIME AXETIL | [facility] | + + + + | 2022-02-18 00:00 | METRONIDAZOLE | [facility] | + + + + | 2022-02-18 00:00 | METRONIDAZOLE | [facility] | + + + + | 2016-05-04 00:00 | predniSONE | [facility] | + + + + | 2016-05-04 00:00 | predniSONE | [facility] | + + + + | 2016-05-04 00:00 | predniSONE | [facility] | + + + + | 2016-05-04 00:00 | predniSONE | [facility] | + + + + | 2016-05-06 00:00 | predniSONE | [facility] | + + + + | 2016-05-06 00:00 | predniSONE | [facility] | + + + + | 2016-05-06 00:00 | predniSONE | [facility] | + + + + | 2016-05-06 00:00 | predniSONE | [facility] | + + + + | 2017-02-13 00:00 | predniSONE | [facility] | + + + + | 2017-02-13 00:00 | predniSONE | [facility] | + + + + | 2017-02-13 00:00 | predniSONE | [facility] | + + + + | 2017-02-13 00:00 | predniSONE | [facility] | + + + + | 2017-03-19 00:00 | predniSONE | [facility] | + + + + | 2017-03-19 00:00 | predniSONE | [facility] | + + + + | 2017-03-19 00:00 | predniSONE | [facility] | + + + + | 2017-03-19 00:00 | predniSONE | [facility] | + + + + | 2017-04-24 00:00 | predniSONE | [facility] | + + + + | 2017-04-24 00:00 | predniSONE | [facility] | + + + + | 2017-04-24 00:00 | predniSONE | [facility] | + + + + | 2017-04-24 00:00 | predniSONE | [facility] | + + + + | 2018-02-28 00:00 | predniSONE | [facility] | + + + + | 2018-02-28 00:00 | predniSONE | [facility] | + + + + | 2018-02-28 00:00 | predniSONE | [facility] | + + + + | 2018-02-28 00:00 | predniSONE | [facility] | + + + + | 2019-06-23 00:00 | predniSONE | [facility] | + + + + | 2019-06-23 00:00 | predniSONE | [facility] | + + + + | 2019-06-23 00:00 | predniSONE | [facility] | + + + + | 2019-06-23 00:00 | predniSONE | [facility] | + + + + | 2021-10-28 00:00 | predniSONE | [facility] | + + + + | 2022-01-15 00:00 | predniSONE | [facility] | + + + + | 2022-02-18 00:00 | predniSONE | [facility] | + + + + | 2022-10-18 00:00 | predniSONE | [facility] | + + + + | 2022-10-23 00:00 | predniSONE | [facility] | + + + + | 2021-10-28 00:00 | SENNOSIDES | [facility] | + + + + | 2022-01-15 00:00 | SENNOSIDES | [facility] | + + + + | 2022-02-18 00:00 | SENNOSIDES | [facility] | + + + + | 2022-10-18 00:00 | SENNOSIDES | [facility] | + + + + | 2022-10-23 00:00 | SENNOSIDES | [facility] | + + + + | 2021-10-28 00:00 | ROPINIROLE HCL | [facility] | + + + + | 2022-01-15 00:00 | ROPINIROLE HCL | [facility] | + + + + | 2022-02-18 00:00 | ROPINIROLE HCL | [facility] | + + + + | 2022-10-18 00:00 | ROPINIROLE HCL | [facility] | + + + + | 2022-10-23 00:00 | ROPINIROLE HCL | [facility] | + + + + | 2021-10-28 00:00 | GLIPIZIDE | [facility] | + + + + | 2022-01-15 00:00 | GLIPIZIDE | [facility] | + + + + | 2022-02-18 00:00 | GLIPIZIDE | [facility] | + + + + | 2022-10-18 00:00 | GLIPIZIDE | [facility] | + + + + | 2022-10-23 00:00 | GLIPIZIDE | [facility] | + + + + | 2022-10-18 00:00 | Scopolamine | [facility] | + + + + | 2021-10-28 00:00 | ASPIRIN | [facility] | + + + + | 2022-01-15 00:00 | ASPIRIN | [facility] | + + + + | 2022-02-18 00:00 | ASPIRIN | [facility] | + + + + | 2022-10-18 00:00 | ASPIRIN | [facility] | + + + + | 2022-10-23 00:00 | ASPIRIN | [facility] | + + + + | 2022-02-18 00:00 | AMOXICILLIN/POTASSIUM CLAV | [facility] | | | | | + + + + | 2022-02-18 00:00 | AMOXICILLIN/POTASSIUM CLAV | [facility] | | | | | + + + + | 2021-10-28 00:00 | SILDENAFIL CITRATE | [facility] | + + + + | 2022-01-15 00:00 | SILDENAFIL CITRATE | [facility] | + + + + | 2022-02-18 00:00 | SILDENAFIL CITRATE | [facility] | + + + + | 2022-10-18 00:00 | SILDENAFIL CITRATE | [facility] | + + + + | 2022-10-23 00:00 | SILDENAFIL CITRATE | [facility] | + + + + | 2021-10-28 00:00 | TIOTROPIUM BROMIDE | [facility] | + + + + | 2022-01-15 00:00 | TIOTROPIUM BROMIDE | [facility] | + + + + | 2022-02-18 00:00 | TIOTROPIUM BROMIDE | [facility] | + + + + | 2022-10-18 00:00 | TIOTROPIUM BROMIDE | [facility] | + + + + | 2022-10-23 00:00 | TIOTROPIUM BROMIDE | [facility] | + + + + | 2021-10-28 00:00 | ALBUTEROL SULFATE | [facility] | + + + + | 2022-01-15 00:00 | ALBUTEROL SULFATE | [facility] | + + + + | 2022-02-18 00:00 | ALBUTEROL SULFATE | [facility] | + + + + | 2022-10-18 00:00 | ALBUTEROL SULFATE | [facility] | + + + + | 2022-10-23 00:00 | ALBUTEROL SULFATE | [facility] | + + + + | 2021-10-28 00:00 | ALBUTEROL SULFATE | [facility] | + + + + | 2022-01-15 00:00 | ALBUTEROL SULFATE | [facility] | + + + + | 2022-02-18 00:00 | ALBUTEROL SULFATE | [facility] | + + + + | 2022-10-18 00:00 | ALBUTEROL SULFATE | [facility] | + + + + | 2022-10-23 00:00 | ALBUTEROL SULFATE | [facility] | + + + + | 2021-10-28 00:00 | AZITHROMYCIN | [facility] | + + + + | 2022-01-15 00:00 | AZITHROMYCIN | [facility] | + + + + | 2022-02-18 00:00 | AZITHROMYCIN | [facility] | + + + + | 2022-10-18 00:00 | AZITHROMYCIN | [facility] | + + + + | 2022-10-23 00:00 | AZITHROMYCIN | [facility] | + + + + | 2017-04-20 00:00 | AMOXICILLIN/POTASSIUM CLAV | [facility] | | | | | + + + + | 2017-04-20 00:00 | AMOXICILLIN/POTASSIUM CLAV | [facility] | | | | | + + + + | 2017-04-20 00:00 | AMOXICILLIN/POTASSIUM CLAV | [facility] | | | | | + + + + | 2017-04-20 00:00 | AMOXICILLIN/POTASSIUM CLAV | [facility] | | | | | + + + + | 2019-02-26 00:00 | AMOXICILLIN/POTASSIUM CLAV | [facility] | | | | | + + + + | 2019-02-26 00:00 | AMOXICILLIN/POTASSIUM CLAV | [facility] | | | | | + + + + | 2019-02-26 00:00 | AMOXICILLIN/POTASSIUM CLAV | [facility] | | | | | + + + + | 2019-02-26 00:00 | AMOXICILLIN/POTASSIUM CLAV | [facility] | | | | | + + + + | 2022-02-18 00:00 | DILTIAZEM HCL | [facility] | + + + + | 2022-02-18 00:00 | DILTIAZEM HCL | [facility] | + + + + | 2016-07-16 00:00 | methylPREDNISolone | [facility] | + + + + | 2016-07-16 00:00 | methylPREDNISolone | [facility] | + + + + | 2016-07-16 00:00 | methylPREDNISolone | [facility] | + + + + | 2016-07-16 00:00 | methylPREDNISolone | [facility] | + + + + | 2021-01-12 00:00 | HYDROCODONE | [facility] | | | BIT/ACETAMINOPHEN | | + + + + | 2021-01-12 00:00 | HYDROCODONE | [facility] | | | BIT/ACETAMINOPHEN | | + + + + | 2021-01-12 00:00 | HYDROCODONE | [facility] | | | BIT/ACETAMINOPHEN | | + + + + | 2021-01-12 00:00 | HYDROCODONE | [facility] | | | BIT/ACETAMINOPHEN | | + + + + | 2012-09-21 00:00 | HYDROCODONE | [facility] | | | BIT/ACETAMINOPHEN | | + + + + | 2012-09-21 00:00 | HYDROCODONE | [facility] | | | BIT/ACETAMINOPHEN | | + + + + | 2012-09-21 00:00 | HYDROCODONE | [facility] | | | BIT/ACETAMINOPHEN | | + + + + | 2012-09-21 00:00 | HYDROCODONE | [facility] | | | BIT/ACETAMINOPHEN | | + + + + | 2021-10-28 00:00 | Rosuvastatin Calcium | [facility] | + + + + | 2022-01-15 00:00 | Rosuvastatin Calcium | [facility] | + + + + | 2022-02-18 00:00 | Rosuvastatin Calcium | [facility] | + + + + | 2022-10-18 00:00 | Rosuvastatin Calcium | [facility] | + + + + | 2022-10-23 00:00 | Rosuvastatin Calcium | [facility] | + + + + | 2021-10-28 00:00 | ROSUVASTATIN CALCIUM | [facility] | + + + + | 2022-01-15 00:00 | ROSUVASTATIN CALCIUM | [facility] | + + + + | 2022-02-18 00:00 | ROSUVASTATIN CALCIUM | [facility] | + + + + | 2022-10-18 00:00 | ROSUVASTATIN CALCIUM | [facility] | + + + + | 2022-10-23 00:00 | ROSUVASTATIN CALCIUM | [facility] | + + + + | 2021-10-28 00:00 | METFORMIN HCL | [facility] | + + + + | 2022-01-15 00:00 | METFORMIN HCL | [facility] | + + + + | 2022-02-18 00:00 | METFORMIN HCL | [facility] | + + + + | 2022-10-18 00:00 | METFORMIN HCL | [facility] | + + + + | 2022-10-23 00:00 | METFORMIN HCL | [facility] | + + + + | 2014-12-31 00:00 | ONDANSETRON | [facility] | + + + + | 2014-12-31 00:00 | ONDANSETRON | [facility] | + + + + | 2014-12-31 00:00 | ONDANSETRON | [facility] | + + + + | 2014-12-31 00:00 | ONDANSETRON | [facility] | + + + + | 2021-10-28 00:00 | FLUTICASONE/SALMETEROL | [facility] | + + + + | 2022-01-15 00:00 | FLUTICASONE/SALMETEROL | [facility] | + + + + | 2022-02-18 00:00 | FLUTICASONE/SALMETEROL | [facility] | + + + + | 2022-10-18 00:00 | FLUTICASONE/SALMETEROL | [facility] | + + + + | 2022-10-23 00:00 | FLUTICASONE/SALMETEROL | [facility] | + + + + | 2021-10-28 00:00 | FLUTICASONE/SALMETEROL | [facility] | + + + + | 2022-01-15 00:00 | FLUTICASONE/SALMETEROL | [facility] | + + + + | 2022-02-18 00:00 | FLUTICASONE/SALMETEROL | [facility] | + + + + | 2022-10-18 00:00 | FLUTICASONE/SALMETEROL | [facility] | + + + + | 2022-10-23 00:00 | FLUTICASONE/SALMETEROL | [facility] | + + + + | 2017-02-13 00:00 | Nicotine Polacrilex | [facility] | + + + + | 2017-02-13 00:00 | Nicotine Polacrilex | [facility] | + + + + | 2017-02-13 00:00 | Nicotine Polacrilex | [facility] | + + + + | 2017-02-13 00:00 | Nicotine Polacrilex | [facility] | + + + + | 2017-04-24 00:00 | Nicotine Polacrilex | [facility] | + + + + | 2017-04-24 00:00 | Nicotine Polacrilex | [facility] | + + + + | 2017-04-24 00:00 | Nicotine Polacrilex | [facility] | + + + + | 2017-04-24 00:00 | Nicotine Polacrilex | [facility] | + + + + | 2021-10-28 00:00 | LOSARTAN POTASSIUM | [facility] | + + + + | 2022-01-15 00:00 | LOSARTAN POTASSIUM | [facility] | + + + + | 2022-02-18 00:00 | LOSARTAN POTASSIUM | [facility] | + + + + | 2022-10-18 00:00 | LOSARTAN POTASSIUM | [facility] | + + + + | 2022-10-23 00:00 | LOSARTAN POTASSIUM | [facility] | + + + + | 2021-10-28 00:00 | LOSARTAN POTASSIUM | [facility] | + + + + | 2022-01-15 00:00 | LOSARTAN POTASSIUM | [facility] | + + + + | 2022-02-18 00:00 | LOSARTAN POTASSIUM | [facility] | + + + + | 2022-10-18 00:00 | LOSARTAN POTASSIUM | [facility] | + + + + | 2022-10-23 00:00 | LOSARTAN POTASSIUM | [facility] | + + + + | 2021-10-28 00:00 | hydrOXYzine HCL | [facility] | + + + + | 2022-01-15 00:00 | hydrOXYzine HCL | [facility] [facility] | + + + + | 2022-02-18 00:00 | hydrOXYzine HCL | [facility] | + + + + | 2022-10-18 00:00 | hydrOXYzine HCL | [facility] | + + + + | 2022-10-23 00:00 | hydrOXYzine HCL | [facility] | + + + + | 2021-10-28 00:00 | ETHAMBUTOL HCL | [facility] | + + + + | 2022-01-15 00:00 | ETHAMBUTOL HCL | [facility] | + + + + | 2022-02-18 00:00 | ETHAMBUTOL HCL | [facility] | + + + + | 2022-10-18 00:00 | ETHAMBUTOL HCL | [facility] | + + + + | 2022-10-23 00:00 | ETHAMBUTOL HCL | [facility] | + + + + | 2021-10-28 00:00 | VARDENAFIL HCL | [facility] | + + + + | 2022-01-15 00:00 | VARDENAFIL HCL | [facility] | + + + + | 2022-02-18 00:00 | VARDENAFIL HCL | [facility] | + + + + | 2022-10-18 00:00 | VARDENAFIL HCL | [facility] | + + + + | 2022-10-23 00:00 | VARDENAFIL HCL | [facility] | + + + + | 2015-06-01 00:00 | FEXOFENADINE HCL | [facility] | + + + + | 2015-06-01 00:00 | FEXOFENADINE HCL | [facility] | + + + + | 2015-06-01 00:00 | FEXOFENADINE HCL | [facility] | + + + + | 2015-06-01 00:00 | FEXOFENADINE HCL | [facility] | + + + + Problems + + + + | date | description | facility | + + + + | 2014-12-31 00:00 | Gastroenteritis | [facility] | + + + + | 2014-12-31 00:00 | Gastroenteritis | [facility] | + + + + | 2014-12-31 00:00 | Gastroenteritis | [facility] | + + + + | 2014-12-31 00:00 | Gastroenteritis | [facility] | + + + + | 2015-05-28 00:00 | Chronic obstructive | [facility] | | | pulmonary disease with | | | | acute exacerbation | | + + + + | 2015-05-28 00:00 | Chronic obstructive | [facility] | | | pulmonary disease with | | | | acute exacerbation | | + + + + | 2015-05-28 00:00 | Chronic obstructive | [facility] | | | pulmonary disease with | | | | acute exacerbation | | + + + + | 2015-05-28 00:00 | Chronic obstructive | [facility] | | | pulmonary disease with | | | | acute exacerbation | | + + + + | 2015-05-30 00:00 | Restless legs syndrome | [facility] | + + + + | 2015-05-30 00:00 | Restless legs syndrome | [facility] | + + + + | 2015-05-30 00:00 | Restless legs syndrome | [facility] | + + + + | 2015-05-30 00:00 | Restless legs syndrome | [facility] | + + + + | 2015-05-30 00:00 | Seizure disorder | [facility] | + + + + | 2015-05-30 00:00 | Seizure disorder | [facility] | + + + + | 2015-05-30 00:00 | Seizure disorder | [facility] | + + + + | 2015-05-30 00:00 | Seizure disorder | [facility] | + + + + | 2015-05-30 00:00 | Post-nasal discharge | [facility] | + + + + | 2015-05-30 00:00 | Post-nasal discharge | [facility] | + + + + | 2015-05-30 00:00 | Post-nasal discharge | [facility] | + + + + | 2015-05-30 00:00 | Post-nasal discharge | [facility] | + + + + | 2015-05-31 00:00 | Nicotine dependence | [facility] | + + + + | 2015-05-31 00:00 | Nicotine dependence | [facility] | + + + + | 2015-05-31 00:00 | Nicotine dependence | [facility] | + + + + | 2015-05-31 00:00 | Nicotine dependence | [facility] | + + + + | 2015-06-06 00:00 | Nonspecific chest pain | [facility] | + + + + | 2015-06-06 00:00 | Nonspecific chest pain | [facility] | + + + + | 2015-06-06 00:00 | Nonspecific chest pain | [facility] | + + + + | 2015-06-06 00:00 | Nonspecific chest pain | [facility] | + + + + | 2016-02-24 00:00 | Headache | [facility] | + + + + | 2016-02-24 00:00 | Headache | [facility] | + + + + | 2016-02-24 00:00 | Headache | [facility] | + + + + | 2016-02-24 00:00 | Headache | [facility] | + + + + | 2016-05-04 00:00 | Dehydration | [facility] | + + + + | 2016-05-04 00:00 | Dehydration | [facility] | + + + + | 2016-05-04 00:00 | Dehydration | [facility] | + + + + | 2016-05-04 00:00 | Dehydration | [facility] | + + + + | 2016-05-04 00:00 | Dizziness | [facility] | + + + + | 2016-05-04 00:00 | Dizziness | [facility] | + + + + | 2016-05-04 00:00 | Dizziness | [facility] | + + + + | 2016-05-04 00:00 | Dizziness | [facility] | + + + + | 2016-05-05 00:00 | Type 2 diabetes mellitus | [facility] | + + + + | 2016-05-05 00:00 | Type 2 diabetes mellitus | [facility] | + + + + | 2016-05-05 00:00 | Type 2 diabetes mellitus | [facility] | + + + + | 2016-05-05 00:00 | Type 2 diabetes mellitus | [facility] | + + + + | 2016-05-05 00:00 | Hyperlipidemia | [facility] | + + + + | 2016-05-05 00:00 | Hyperlipidemia | [facility] | + + + + | 2016-05-05 00:00 | Hyperlipidemia | [facility] | + + + + | 2016-05-05 00:00 | Hyperlipidemia | [facility] | + + + + | 2016-05-05 00:00 | Essential hypertension | [facility] | + + + + | 2016-05-05 00:00 | Essential hypertension | [facility] | + + + + | 2016-05-05 00:00 | Essential hypertension | [facility] | + + + + | 2016-05-05 00:00 | Essential hypertension | [facility] | + + + + | 2016-05-05 00:00 | Gastroesophageal reflux | [facility] | | | disease | | + + + + | 2016-05-05 00:00 | Gastroesophageal reflux | [facility] | | | disease | | + + + + | 2016-05-05 00:00 | Gastroesophageal reflux | [facility] | | | disease | | + + + + | 2016-05-05 00:00 | Gastroesophageal reflux | [facility] | | | disease | | + + + + | 2016-07-16 00:00 | Obstructive chronic | [facility] | | | bronchitis with | | | | exacerbation | | + + + + | 2016-07-16 00:00 | Obstructive chronic | [facility] | | | bronchitis with | | | | exacerbation | | + + + + | 2016-07-16 00:00 | Obstructive chronic | [facility] | | | bronchitis with | | | | exacerbation | | + + + + | 2016-07-16 00:00 | Obstructive chronic | [facility] | | | bronchitis with | | | | exacerbation | | + + + + | 2016-08-25 00:00 | Vomiting | [facility] | + + + + | 2016-08-25 00:00 | Vomiting | [facility] | + + + + | 2016-08-25 00:00 | Vomiting | [facility] | + + + + | 2016-08-25 00:00 | Vomiting | [facility] | + + + + | 2016-10-09 00:00 | Acute bronchitis with | [facility] | | | chronic obstructive | | | | pulmonary disease (COPD) | | + + + + | 2016-10-09 00:00 | Acute bronchitis with | [facility] | | | chronic obstructive | | | | pulmonary disease (COPD) | | + + + + | 2016-10-09 00:00 | Acute bronchitis with | [facility] | | | chronic obstructive | | | | pulmonary disease (COPD) | | + + + + | 2016-10-09 00:00 | Acute bronchitis with | [facility] | | | chronic obstructive | | | | pulmonary disease (COPD) | | + + + + | 2016-12-26 00:00 | Nausea | [facility] | + + + + | 2016-12-26 00:00 | Nausea | [facility] | + + + + | 2016-12-26 00:00 | Nausea | [facility] | + + + + | 2016-12-26 00:00 | Nausea | [facility] | + + + + | 2017-01-20 00:00 | Left anterior knee pain | [facility] | + + + + | 2017-01-20 00:00 | Left anterior knee pain | [facility] | + + + + | 2017-01-20 00:00 | Left anterior knee pain | [facility] | + + + + | 2017-01-20 00:00 | Left anterior knee pain | [facility] | + + + + | 2017-02-11 00:00 | Chronic respiratory | [facility] | | | failure | | + + + + | 2017-02-11 00:00 | Chronic respiratory | [facility] | | | failure | | + + + + | 2017-02-11 00:00 | Chronic respiratory | [facility] | | | failure | | + + + + | 2017-02-11 00:00 | Chronic respiratory | [facility] | | | failure | | + + + + | 2017-03-19 00:00 | Chest pain | [facility] | + + + + | 2017-03-19 00:00 | Chest pain | [facility] | + + + + | 2017-03-19 00:00 | Chest pain | [facility] | + + + + | 2017-03-19 00:00 | Chest pain | [facility] | + + + + | 2017-04-20 00:00 | Pharyngitis | [facility] | + + + + | 2017-04-20 00:00 | Pharyngitis | [facility] | + + + + | 2017-04-20 00:00 | Pharyngitis | [facility] | + + + + | 2017-04-20 00:00 | Pharyngitis | [facility] | + + + + | 2017-04-21 00:00 | Sepsis | [facility] | + + + + | 2017-04-21 00:00 | Sepsis | [facility] | + + + + | 2017-04-21 00:00 | Sepsis | [facility] | + + + + | 2017-04-21 00:00 | Sepsis | [facility] | + + + + | 2017-10-04 00:00 | Acute exacerbation of | [facility] | | | chronic obstructive | | | | pulmonary disease | | + + + + | 2017-10-04 00:00 | Acute exacerbation of | [facility] | | | chronic obstructive | | | | pulmonary disease | | + + + + | 2017-10-04 00:00 | Acute exacerbation of | [facility] | | | chronic obstructive | | | | pulmonary disease | | + + + + | 2017-10-04 00:00 | Acute exacerbation of | [facility] | | | chronic obstructive | | | | pulmonary disease | | + + + + | 2018-10-11 00:00 | Systemic inflammatory | [facility] | | | response syndrome (SIRS) | | + + + + | 2018-10-11 00:00 | Systemic inflammatory | [facility] | | | response syndrome (SIRS) | | + + + + | 2018-10-11 00:00 | Systemic inflammatory | [facility] | | | response syndrome (SIRS) | | + + + + | 2018-10-11 00:00 | Systemic inflammatory | [facility] | | | response syndrome (SIRS) | | + + + + | 2019-02-26 00:00 | Right upper lobe pneumonia | [facility] | | | | | + + + + | 2019-02-26 00:00 | Right upper lobe pneumonia | [facility] | | | | | + + + + | 2019-02-26 00:00 | Right upper lobe pneumonia | [facility] | | | | | + + + + | 2019-02-26 00:00 | Right upper lobe pneumonia | [facility] | | | | | + + + + | 2019-08-31 00:00 | Abdominal pain | [facility] | + + + + | 2019-08-31 00:00 | Abdominal pain | [facility] | + + + + | 2019-08-31 00:00 | Abdominal pain | [facility] | + + + + | 2019-08-31 00:00 | Abdominal pain | [facility] | + + + + | 2020-05-12 00:00 | Anxiety | [facility] | + + + + | 2020-05-12 00:00 | Anxiety | [facility] | + + + + | 2020-05-12 00:00 | Anxiety | [facility] | + + + + | 2020-05-12 00:00 | Anxiety | [facility] | + + + + | 2020-06-20 00:00 | Myalgia after severe acute | [facility] | | | respiratory syndrome | | | | coronavirus 2 (SARS-CoV-2) | | | | vaccination | | + + + + | 2020-06-20 00:00 | Myalgia after severe acute | [facility] | | | respiratory syndrome | | | | coronavirus 2 (SARS-CoV-2) | | | | vaccination | | + + + + | 2020-06-20 00:00 | Myalgia after severe acute | [facility] | | | respiratory syndrome | | | | coronavirus 2 (SARS-CoV-2) | | | | vaccination | | + + + + | 2020-06-20 00:00 | Myalgia after severe acute | [facility] | | | respiratory syndrome | | | | coronavirus 2 (SARS-CoV-2) | | | | vaccination | | + + + + | 2020-09-24 00:00 | Chronic obstructive | [facility] | | | pulmonary disease | | + + + + | 2020-09-24 00:00 | Chronic obstructive | [facility] | | | pulmonary disease | | + + + + | 2020-09-24 00:00 | Chronic obstructive | [facility] | | | pulmonary disease | | + + + + | 2020-09-24 00:00 | Chronic obstructive | [facility] | | | pulmonary disease | | + + + + | 2021-05-23 00:00 | Upper respiratory tract | [facility] | | | infection | | + + + + | 2021-05-23 00:00 | Upper respiratory tract | [facility] | | | infection | | + + + + | 2021-05-23 00:00 | Upper respiratory tract | [facility] | | | infection | | + + + + | 2021-05-23 00:00 | Upper respiratory tract | [facility] | | | infection | | + + + + | 2021-10-25 00:00 | Infection due to severe | [facility] | | | acute respiratory syndrome | | | | coronavirus 2 (SARS-CoV-2) | | + + + + | 2021-10-25 00:00 | Infection due to severe | [facility] | | | acute respiratory syndrome | | | | coronavirus 2 (SARS-CoV-2) | | + + + + | 2021-10-25 00:00 | Infection due to severe | [facility] | | | acute respiratory syndrome | | | | coronavirus 2 (SARS-CoV-2) | | + + + + | 2021-10-25 00:00 | Infection due to severe | [facility] | | | acute respiratory syndrome | | | | coronavirus 2 (SARS-CoV-2) | | + + + + | 2022-02-18 00:00 | Paroxysmal atrial | [facility] | | | fibrillation | | + + + + | 2022-02-18 00:00 | Paroxysmal atrial | [facility] | | | fibrillation | | + + + + | 2022-02-18 00:00 | Abdominal aortic aneurysm | [facility] | | | (AAA) | | + + + + | 2022-02-18 00:00 | Abdominal aortic aneurysm | [facility] | | | (AAA) | | + + + + | 2022-02-18 00:00 | Colitis | [facility] | + + + + | 2022-02-18 00:00 | Colitis | [facility] | + + + + | 2022-05-01 12:33 | PULMONARY MYCOBACTERIAL | [facility] | | | INFECTION | | + + + + | 2022-05-01 12:33 | OTHER DISORDERS OF LUNG | [facility] | + + + + | 2022-10-18 00:00 | Vertigo | [facility] | + + + + | 2022-10-18 [...] + + + | 2022-10-18 20:14 | CLINICAL LEADER (CURRENT) USE OF | [facility] | | | ANTICOAGULANTS | | + + + + | 2022-10-18 20:14 | OTHER CLINICAL LEADER (CURRENT) | [facility] | | | DRUG [...] + + + | 2022-10-22 22:40 | CLINICAL LEADER (CURRENT) USE OF | [facility] | | | ANTICOAGULANTS | | + + + + | 2022-10-22 22:40 | [facility] (CURRENT) USE OF | [facility] | | | INHALED STEROIDS | | + + + + | 2022-10-22 22:40 | CLINICAL LEADER (CURRENT) USE OF | [facility] | | | ASPIRIN | | + + + + | 2022-10-22 22:40 | CLINICAL LEADER (CURRENT) USE OF | [facility] | | | ORAL HYPOGLYCEMIC DRUGS | | + + + + | 2022-10-22 22:40 | OTHER CLINICAL LEADER (CURRENT) | [facility] | | | DRUG THERAPY | | + + + + | 2022-10-23 00:00 | Respiratory acidosis | [facility] | + + + + | 2022-10-23 00:00 | Non-ST elevation | [facility] | | | myocardial infarction | | | | (NSTEMI) | | + + + + | 2022-10-23 00:00 | Respiratory failure with | [facility] | | | hypercapnia | | + [...]
[~2022-11-11 22:08] MED LIST changes: +AMOX TR-K CLV1 EAC1 PO; +CARDIZEM CD180 MG PO; +ELIQUIS5 MG PO; +METRONIDAZOLE500 MG PO; +TRANSDERM-SCOP1 EACH TD
--- OUTSIDE RECORDS SUMMARY | 2022-11-11 22:10 | XMS ---
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 Orantes on 01/15/2021 Care History Medical/Surgical 07/09/2021 [facility] Appropriate use of ED for SOB. 05/22/2021 [facility] Patient was seen by PCP Dr. Orantes on 05/20/2021 05/08/2020 [facility] Patient has wellness visit scheduled on 05/18/[address] Orantes. No medical records in [facility] for hospital visit on 05/02/2020 or 05/07/2020. Social 03/09/2017 [facility] PATIENT RECEIVES FOOD STAMPS THROUGH [facility] V[facility] (12 MO.) [facility] NOTE: Visits indicate total known visits. ED/UCC VISIT TRACKING (12 MO.) [facility] COMPLAINT: - HEART ISSUES 10/22/2022 22:40 [facility] [place] TYPE: Emergency COMPLAINT: - DIFFICULTY BREATHING DIAGNOSES: - Chronic obstructive pulmonary disease, unspecified - Contact with and (suspected) exposure to COVID-19 - Epilepsy, unspecified, not intractable, without status epilepticus - Essential (primary) hypertension - detention (current) use of anticoagulants - terminal operator (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 - detention (current) use of inhaled steroids - detention (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 of oral hypoglycemic drugs - Nicotine dependence, unspecified, uncomplicated - Non-ST elevation (NSTEMI) myocardial infarction - Other acidosis - Other assisted (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 - Other specified disorders of eye and adnexa - Respiratory failure, unspecified with hypercapnia - Syncope and collapse - Type 2 diabetes mellitus without complications 10/18/2022 20:14 [facility] [place] TYPE: Emergency COMPLAINT: - DIZZY AND EYES FEELING WEIRD DIAGNOSES: - Chronic obstructive pulmonary disease, unspecified - Dizziness and giddiness - Essential (primary) hypertension - detention (current) use of anticoagulants - Nicotine dependence, unspecified, uncomplicated - Other terminal system operator (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 - Type 2 diabetes mellitus without complications 02/18/2022 12:09 [facility] [place] TYPE: Emergency COMPLAINT: - ABD TO LEFT SIDE PAIN DIAGNOSES: - Abdominal aortic aneurysm, without rupture, unspecified - Allergy status to other antibiotic agents - Allergy status to other drugs, medicaments and biological substances - Chronic obstructive pulmonary disease, unspecified - Contact with and (suspected) exposure to COVID-19 - Essential (primary) hypertension - terminal operator (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 - Nicotine dependence, cigarettes, uncomplicated - Nicotine dependence, unspecified, uncomplicated - Noninfective gastroenteritis and colitis, unspecified - Other assisted (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 - Paroxysmal atrial fibrillation - Type 2 diabetes mellitus without complications - Unspecified abdominal pain 01/15/2022 16:05 ELIE Cote TYPE: Emergency COMPLAINT: - SORE THROAT DIAGNOSES: - Acute pharyngitis, unspecified - Allergy status to other antibiotic agents - Allergy status to other drugs, medicaments and biological substances - Chronic obstructive pulmonary disease, unspecified - Contact with and (suspected) exposure to COVID-19 - Essential (primary) hypertension - Nicotine dependence, unspecified, uncomplicated - Other terminal system operator (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 - Type 2 diabetes mellitus without complications INPATIENT VISIT TRACKING (12 MO.) 10/23/2022 06:03 [facility] TYPE: Surgical Services DIAGNOSES: - Acute respiratory failure with hypoxia - Centrilobular emphysema - Dependence on supplemental oxygen - Emphysema, unspecified - Non-ST elevation (NSTEMI) myocardial infarction - Pulmonary mycobacterial infection - Sleep related hypoventilation in conditions classified elsewhere - Cardiac Arrest [email or web address]"
[2022-11-11 22:35] LABS: EOSINOPHILS 1.7 % (0-6); HEMATOCRIT 44.1 % (35.0-50.0); HEMOGLOBIN 14.4 g/dL (12.0-18.0); LYMPHOCYTES 24.1 % (24-44); MCH 30.9 (27-36); MCHC 32.7 g/dl (30-36); MCV 94.4 fl (81-99); MONOCYTES 8.9 % (0-12); NEUTROPHILS 64.3 % (39-80); PLATELET COUNT 317 K/uL (140-440); RBC 4.67 M/ul (4.3-5.7); RDW 14.5 (10.5-15.0)
[2022-11-11 22:58] LABS: ALBUMIN 3.3 g/dL (3.4-5.0); ALBUMIN/GLOBULIN RATIO 0.75 (1.1-2.4); ANION GAP 14.5 (7-21); BILIRUBIN, TOTAL 0.2 ng/dL (0.2-1.0); BUN/CREATININE RATIO 15.83 (6.0-28.6); CALCIUM 9.1 mg/dL (8.5-10.1); CREATININE, SERUM 1.2 mg/dL (0.70-1.30); MAGNESIUM 1.6 mg/dL (1.8-2.4); POTASSIUM 4.5 mmol/L (3.5-5.1); PROTEIN, TOTAL 7.7 g/dL (6.4-8.2)
[2022-11-11 23:54] LABS: INFLUENZA B NAA NEGATIVE (NEGATIVE); RESPIRATORY SYNCYTIAL VIR NAA NEGATIVE (NEGATIVE)
[2022-11-12] MEDS ORDERED: MAGNESIUM400 M1 PO (00:02)
[2022-11-12 00:15] VITALS: BP 162/86
--- NOTE | 2022-11-12 15:58 | EKG ---
[facility] [address] [facility] [place] [address] Signed Sinus tachycardia Left axis deviation Incomplete right bundle branch block Nonspecific ST and T wave abnormality Abnormal ECG When compared with ECG of 23-OCT-2022 02:18, Nonspecific T wave abnormality no longer evident in Inferior leads T wave inversion less evident in Anterolateral leads Confirmed by RACQUEL FUNES MD ([id number]) on 11/12/2022 3:58:38 PM Electronically Signed By: RACQUEL FUNES 11/12/22 1558 PATIENT NAME: KEVIN DAUGHERTY SR Electrocardiogram DATE OF : 46 PHYSICIAN: RACQUEL FUNES REPORT #: [id number] REPORT IS CONFIDENTIAL AND NOT TO BE RELEASED WITHOUT AUTHORIZATION
== END 2022-11-12 00:15 | disposition home or self-care (01) ==
LOC: ED 22:08
PROVIDERS: Internal Medicine
DX: R00.0 Tachycardia, unspecified (principal); E86.0 Dehydration; E83.42 Hypomagnesemia; J44.9 Chronic obstructive pulmonary disease, unspecified; E11.9 Type 2 diabetes mellitus without complications; I10 Essential (primary) hypertension; F17.200 Nicotine dependence, unspecified, uncomplicated; Z88.8 Allergy status to other drugs, medicaments and biological substances; Z88.1 Allergy status to other antibiotic agents; Z79.899 Other long term (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; Z79.82 Long term (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
CPT/HCPCS: 36415; 71045; 80053; 83735; 83880; 84484; 85025; 87502; 93005; 93010; 99285-25; J7121; U0002

== ENCOUNTER 2022-12-20 21:48 | Inpatient (IN) | payer MEDICARE, OTHER ==
[~2022-12-20] VITALS: Ht 175.3 cm; Wt 95.8 kg
[~2022-12-20 21:48] MED LIST changes: -AZITHROMYCIN500 MG PO; -BREO ELLIPTA I1 EACH INH; -GLIPIZIDE ER10 MG PO; -HYDROXYZINE HCL25 MG PO; +MAGNESIUM400 M1 PO; +VENTOLIN HFA18 GM INH
--- OUTSIDE RECORDS SUMMARY | 2022-12-20 21:53 | XMS ---
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 Guidelines Date: 01/13/2021 Other Information: Patient has follow up visit with Dr. Orantes on 01/15/2021 Care History Medical/Surgical 07/09/2021 [facility] Appropriate use of ED for SOB. 05/22/2021 [facility] Patient was seen by PCP Dr. Orantes on 05/20/2021 05/08/2020 [facility] Patient has wellness visit scheduled on 05/18/[address] Orantes. No medical records in [facility] for hospital visit on 05/02/2020 or 05/07/2020. Social 03/09/2017 [facility] PATIENT RECEIVES FOOD STAMPS THROUGH [facility] VIS[facility] COUNT (12 MO.) [facility] NOTE: Visits indicate total known visits. ED/UCC VISIT TRACKING (12 MO.) [facility] COMPLAINT: - DIZZY AND CP 11/11/2022 22:09 [facility] [place] TYPE: Emergency COMPLAINT: - HEART ISSUES DIAGNOSES: - Allergy status to other antibiotic agents - Allergy status to other drugs, medicaments and biological substances - Chronic obstructive pulmonary disease, unspecified - Contact with and (suspected) exposure to COVID-19 - Dehydration - Essential (primary) hypertension - Hypomagnesemia - intermediate project manager (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 - Nicotine dependence, unspecified, uncomplicated - Other shelter (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 - Tachycardia, unspecified - Type 2 diabetes mellitus without complications 10/22/2022 22:40 [facility] [place] TYPE: Emergency COMPLAINT: - DIFFICULTY BREATHING DIAGNOSES: - Chronic obstructive pulmonary disease, unspecified - Contact with and (suspected) exposure to COVID-19 - Epilepsy, unspecified, not intractable, without status epilepticus - Essential (primary) hypertension - intermediate project manager (current) use of anticoagulants - nursing home (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 - nursing home (current) use of inhaled steroids - nursing home (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 of oral hypoglycemic drugs - Nicotine dependence, unspecified, uncomplicated - Non-ST elevation (NSTEMI) myocardial infarction - Other acidosis - 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 - Other specified disorders of eye and adnexa - Respiratory failure, unspecified with hypercapnia - Syncope and collapse - Type 2 diabetes mellitus without complications 10/18/2022 20:14 [facility] [place] TYPE: Emergency COMPLAINT: - DIZZY AND EYES FEELING WEIRD DIAGNOSES: - Chronic obstructive pulmonary disease, unspecified - Dizziness and giddiness - Essential (primary) hypertension - intermediate project manager (current) use of anticoagulants - Nicotine dependence, unspecified, uncomplicated - 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 - Type 2 diabetes [...] to COVID-19 - Essential (primary) hypertension - intermediate project manager (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 - Nicotine dependence, cigarettes, uncomplicated - Nicotine dependence, unspecified, uncomplicated - Noninfective gastroenteritis and colitis, unspecified - Other shelter (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 - Paroxysmal atrial fibrillation - Type 2 diabetes mellitus without complications - Unspecified abdominal pain 01/15/2022 16:05 [facility] [place] TYPE: Emergency COMPLAINT: - SORE THROAT DIAGNOSES: - Acute pharyngitis, unspecified - Allergy status to other antibiotic agents - Allergy status to other drugs, medicaments and biological substances - Chronic obstructive pulmonary disease, unspecified - Contact with and (suspected) exposure to COVID-19 - Essential (primary) hypertension - Nicotine dependence, unspecified, uncomplicated - 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 [facility] TYPE: [facility] Services DIAGNOSES: - Acute respiratory failure with hypoxia - Centrilobular emphysema - Dependence on supplemental oxygen - Emphysema, unspecified - Non-ST elevation (NSTEMI) myocardial infarction - Pulmonary mycobacterial infection - Sleep related hypoventilation in conditions classified elsewhere - Cardiac Arrest [email or web address]
[2022-12-20 22:09] LABS: BASOPHILS 0.3 % (0-2); EOSINOPHILS 1.2 % (0-6); HEMATOCRIT 43.5 % (35.0-50.0); HEMOGLOBIN 14.6 g/dL (12.0-18.0); LYMPHOCYTES 19.4 % (24-44); MCHC 33.5 g/dl (30-36); MCV 92.6 fl (81-99); MONOCYTES 9.4 % (0-12); NEUTROPHILS 69.7 % (39-80); PLATELET COUNT 397 K/uL (140-440); RDW 14.3 (10.5-15.0)
[2022-12-20 22:19] LABS: INR 1.04 (0.80-1.30); PROTIME 13.1 Sec (11.2-14.2)
[2022-12-20 22:27] LABS: ALBUMIN 3.4 g/dL (3.4-5.0); ALBUMIN/GLOBULIN RATIO 0.74 (1.1-2.4); ANION GAP 16.5 (7-21); BILIRUBIN, TOTAL 0.2 ng/dL (0.2-1.0); BUN/CREATININE RATIO 13.74 (6.0-28.6); CALCIUM 9.2 mg/dL (8.5-10.1); CREATININE, SERUM 1.31 mg/dL (0.70-1.30); MAGNESIUM 1.4 mg/dL (1.8-2.4); POTASSIUM 4.5 mmol/L (3.5-5.1)
[2022-12-20] MEDS ORDERED: PAIN RELIEF650 MG PO (23:38)
[2022-12-20] MEDS ORDERED: LIPITOR80 MG PO (23:39)
[2022-12-20] MEDS ORDERED: B-121000 MC2 PO (23:40)
[2022-12-20] MEDS ORDERED: LASIX20 MG PO (23:49)
[2022-12-20] MEDS ORDERED: ZESTRIL5 MG PO (23:50)
[2022-12-20] MEDS ORDERED: NICODERM CQ1 EAC2 TD (23:52)
[2022-12-20] MEDS ORDERED: SENNA8.6 MG PO (23:53)
[2022-12-20] MEDS ORDERED: ALDACTONE25 MG PO (23:54)
[2022-12-21] VITALS (15 sets, daily range): BP systolic 109–146; BP diastolic 57–92
[2022-12-21 08:39] LABS: BASOPHILS 0.4 % (0-2); EOSINOPHILS 0.5 % (0-6); HEMATOCRIT 41.8 % (35.0-50.0); HEMOGLOBIN 13.9 g/dL (12.0-18.0); LYMPHOCYTES 15.9 % (24-44); MCH 31.2 (27-36); MCHC 33.2 g/dl (30-36); MCV 93.9 fl (81-99); MONOCYTES 3.6 % (0-12); NEUTROPHILS 79.6 % (39-80); PLATELET COUNT 385 K/uL (140-440); RBC 4.45 M/ul (4.3-5.7)
[2022-12-21 08:48] LABS: ALBUMIN 3.2 g/dL (3.4-5.0); ALBUMIN/GLOBULIN RATIO 0.73 (1.1-2.4); ANION GAP 16.9 (7-21); BILIRUBIN, TOTAL 0.3 ng/dL (0.2-1.0); BUN/CREATININE RATIO 15.7 (6.0-28.6); CALCIUM 9.1 mg/dL (8.5-10.1); CREATININE, SERUM 1.21 mg/dL (0.70-1.30); PHOSPHORUS, INORGANIC 3.9 mg/dL (2.5-4.9); POTASSIUM 4.9 mmol/L (3.5-5.1); PROTEIN, TOTAL 7.6 g/dL (6.4-8.2)
[2022-12-21] MEDS ORDERED: ELIQUIS5 MG PO (09:44)
[2022-12-21] MEDS ORDERED: GLIPIZIDE ER10 MG PO (09:46)
--- NOTE | 2022-12-21 21:04 | EKG ---
[facility] [address] [facility] [facility] [place] [address] Signed Supraventricular tachycardia Left axis deviation Incomplete right bundle branch block Abnormal ECG When compared with ECG of 11-NOV-2022 22:15, Supraventricular tachycardia has replaced Sinus tachycardia Confirmed by Rafaela Hampton MD () on 12/21/2022 9:04:40 PM Electronically Signed By: RAFAELA HAMPTON MD 12/21/222103 PATIENT NAME: KEVIN DAUGHERTY Electrocardiogram DATE OF : 46 PHYSICIAN: RAFAELA HAMPTON MD REPORT #: [id number] REPORT IS CONFIDENTIAL AND NOT TO BE RELEASED WITHOUT AUTHORIZATION
--- NOTE | 2022-12-21 21:09 | EKG ---
[facility] [address] [facility] [place] [address] Signed Atrial fibrillation with rapid ventricular response vs. supraventricular tachycardia with premature ventricular or aberrantly conducted complexes Left axis deviation Incomplete right bundle branch block Abnormal ECG When compared with ECG of 20-DEC-2022 21:49, No significant change was found Confirmed by Rafaela Hampton MD () on 12/21/2022 9:08:53 PM Electronically Signed By: RAFAELA HAMPTON MD 12/21/22 2109 PATIENT NAME: DATKEVIN PEPE Electrocardiogram DATE OF : 46 PHYSICIAN: RAFAELA HAMPTON MD REPORT #: [id number] REPORT IS CONFIDENTIAL AND NOT TO BE RELEASED WITHOUT AUTHORIZATION
--- NOTE | 2022-12-21 21:11 | EKG ---
[facility] [address] [place] [address] Signed Atrial flutter with variable AV block Left axis deviation Nonspecific intraventricular conduction delay Abnormal ECG When compared with ECG of 20-DEC-2022 22:06, Atrial flutter has replaced Atrial fibrillation Confirmed by Rafaela Hampton MD () on 12/21/2022 9:11:02 PM Electronically Signed By: RAFAELA HAMPTON MD 12/21/222110 PATIENT NAME: KEVIN DAUGHERTY Electrocardiogram DATE OF : 46 PHYSICIAN: RAFAELA HAMPTON MD REPORT #: [id number] REPORT IS CONFIDENTIAL AND NOT TO BE RELEASED WITHOUT AUTHORIZATION
--- NOTE | 2022-12-21 21:27 | EKG ---
[facility] [address] [facility] [place] [address] Signed Atrial fibrillation with rapid ventricular response Left axis deviation Nonspecific ST abnormality Abnormal ECG When compared with ECG of 21-DEC-2022 04:54, Atrial fibrillation has replaced Atrial flutter T wave amplitude has increased in Inferior leads Confirmed by Rafaela Hampton MD () on 12/21/2022 9:26:59 PM Electronically Signed By: RAFAELA HAMPTON MD 12/21/222126 PATIENT NAME: DATKEVIN PEPE Electrocardiogram DATE OF : 46 PHYSICIAN: RAFAELA HAMPTON MD REPORT #: [id number] REPORT IS CONFIDENTIAL AND NOT TO BE RELEASED WITHOUT AUTHORIZATION
[2022-12-22] VITALS (8 sets, daily range): BP systolic 101–145; BP diastolic 56–81
[2022-12-22 05:16] LABS: BASOPHILS 0.2 % (0-2); EOSINOPHILS 0.4 % (0-6); HEMATOCRIT 39.8 % (35.0-50.0); HEMOGLOBIN 13.4 g/dL (12.0-18.0); LYMPHOCYTES 8.7 % (24-44); MCH 31.3 (27-36); MCHC 33.6 g/dl (30-36); MCV 93.1 fl (81-99); MONOCYTES 1.5 % (0-12); NEUTROPHILS 89.2 % (39-80); PLATELET COUNT 328 K/uL (140-440); RBC 4.27 M/ul (4.3-5.7); RDW 14.1 (10.5-15.0)
[2022-12-22 05:31] LABS: ALBUMIN 3.1 g/dL (3.4-5.0); ALBUMIN/GLOBULIN RATIO 0.78 (1.1-2.4); ANION GAP 12.1 (7-21); BILIRUBIN, TOTAL 0.2 ng/dL (0.2-1.0); BUN/CREATININE RATIO 19.26 (6.0-28.6); CALCIUM 8.9 mg/dL (8.5-10.1); CREATININE, SERUM 1.09 mg/dL (0.70-1.30); POTASSIUM 5.1 mmol/L (3.5-5.1); PROTEIN, TOTAL 7.1 g/dL (6.4-8.2)
[2022-12-22] MEDS ORDERED: ASPIRIN81 MG PO (07:38)
[2022-12-22] MEDS ORDERED: AZITHROMYCIN500 MG PO (08:26)
[2022-12-22] MEDS ORDERED: HYDROXYZINE HCL25 MG PO (08:26)
[2022-12-23 04:47] VITALS: BP 127/61
[2022-12-23 05:21] LABS: BASOPHILS 0.3 % (0-2); EOSINOPHILS 0.5 % (0-6); HEMATOCRIT 39.5 % (35.0-50.0); HEMOGLOBIN 13.1 g/dL (12.0-18.0); LYMPHOCYTES 5.5 % (24-44); MCH 30.8 (27-36); MCV 93.1 fl (81-99); MONOCYTES 5.3 % (0-12); NEUTROPHILS 88.4 % (39-80); PLATELET COUNT 379 K/uL (140-440); RBC 4.24 M/ul (4.3-5.7)
[2022-12-23 05:34] LABS: ALBUMIN/GLOBULIN RATIO 0.73 (1.1-2.4); ANION GAP 14.1 (7-21); BILIRUBIN, TOTAL 0.2 ng/dL (0.2-1.0); BUN/CREATININE RATIO 27.08 (6.0-28.6); CREATININE, SERUM 0.96 mg/dL (0.70-1.30); MAGNESIUM 1.8 mg/dL (1.8-2.4); POTASSIUM 5.1 mmol/L (3.5-5.1); PROTEIN, TOTAL 7.1 g/dL (6.4-8.2)
[2022-12-23 10:11] VITALS: BP 129/70
[2022-12-23 15:04] VITALS: BP 111/63
[2022-12-23 17:32] VITALS: BP 142/87
[2022-12-23 21:17] VITALS: BP 128/79
[2022-12-24 01:28] VITALS: BP 136/90
[2022-12-24 05:24] VITALS: BP 108/65
[2022-12-24 09:59] VITALS: BP 107/74
[2022-12-24 13:46] VITALS: BP 113/70
[2022-12-24] MEDS ORDERED: DILTIAZEM ER360 MG PO (15:06)
== END 2022-12-24 15:55 | disposition home or self-care (01) | DRG 191 ==
LOC: ED 21:48 → CCU 21:50 → MS 12-21 09:05 → CCU 12-21 09:05 → MS 12-22 10:50
PROVIDERS: Emergency Medicine; ADMIT Family Medicine; ATTEND Family Medicine
DX: J44.1 Chronic obstructive pulmonary disease with (acute) exacerbation (principal); I48.92 Unspecified atrial flutter; I48.0 Paroxysmal atrial fibrillation; E83.42 Hypomagnesemia; E11.9 Type 2 diabetes mellitus without complications; R91.1 Solitary pulmonary nodule; F17.210 Nicotine dependence, cigarettes, uncomplicated; I25.2 Old myocardial infarction; I10 Essential (primary) hypertension; R56.9 Unspecified convulsions; I45.10 Unspecified right bundle-branch block; Z20.822 Contact with and (suspected) exposure to COVID-19; Z98.890 Other specified postprocedural states; Z90.49 Acquired absence of other specified parts of digestive tract; Z79.82 Long term (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; Z79.899 Other long term (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; Z79.51 Long term (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 of inhaled steroids; Z79.01 Long term (current) use of anticoagulants; Z88.8 Allergy status to other drugs, medicaments and biological substances; Z88.1 Allergy status to other antibiotic agents; Z99.81 Dependence on supplemental oxygen; Z99.3 Dependence on wheelchair; Z90.89 Acquired absence of other organs; Z79.84 Long term (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 of oral hypoglycemic drugs
CPT/HCPCS: 36415; 71045; 71260; 80053; 83735; 84100; 84484; 85025; 85610; 93005; 93010; 94640; 94760; 96374; 96375; 96376; 99285-25; 99406; C9803; G0378; J0153; J1815; J2920; J2930; J3475; J3490; J7030; Q0177; Q9967; U0002

== ENCOUNTER 2023-01-15 22:02 | Emergency (ER) | payer MEDICARE ==
[~2023-01-15] VITALS: Ht 175.3 cm; Wt 94.3 kg
[~2023-01-15 22:02] MED LIST changes: +ALDACTONE25 MG PO; +ASPIRIN81 MG PO; +AZITHROMYCIN500 MG PO; +B-121000 MC2 PO; +DILTIAZEM ER360 MG PO; +GLIPIZIDE ER10 MG PO; +HYDROXYZINE HCL25 MG PO; +LASIX20 MG PO; +LIPITOR80 MG PO; +MAGOX 400400 MG PO; +NICODERM CQ1 EAC2 TD; +PAIN RELIEF650 MG PO; +ZESTRIL5 MG PO
--- OUTSIDE RECORDS SUMMARY | 2023-01-15 22:06 | XMS ---
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 - 2 Visits in 30 Days CARE PROVIDERS [facility] Internal Medicine 09/01/2019-Current [facility]: [facility]Current [facility] PHONE: [phone] Guidelines Source: [facility] Guidelines Date: 01/13/2021 Other Information: Patient has follow up visit with Dr. Orantes on 01/15/2021 Care History Social 03/09/2017 [facility] PATIENT RECEIVES FOOD STAMPS THROUGH [facility] Medical/Surgical 07/09/2021 [facility] Appropriate use of ED for SOB. 05/22/2021 [facility] Patient was seen by PCP Dr. Orantes on 05/20/2021 05/08/2020 [facility] Patient has wellness visit scheduled on 05/18/[address] Orantes. No medical records in eCW for hospital visit on 05/02/2020 or 05/07/2020. Will VISIT COUNT (12 MO.) 9 ELIE Moctezuma TOTAL 9 NOTE: Visits indicate total known visits. ED/UCC VISIT TRACKING (12 MO.) 01/15/2023 22:03 [facility] [place] TYPE: Emergency COMPLAINT: - SHORTNESS OF BREATH 01/11/2023 11:59 [facility] [place] TYPE: Emergency COMPLAINT: - FAST HEART RATE DIAGNOSES: - Allergy status to other drugs, medicaments and biological substances - Chronic obstructive pulmonary disease with (acute) exacerbation - Dependence on supplemental oxygen - Dyspnea, unspecified - Heart failure, unspecified - Hypertensive heart disease with heart failure - terminal makeup operator (current) use of anticoagulants - terminal makeup operator (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 - terminal makeup operator (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 of oral hypoglycemic drugs - Nicotine dependence, unspecified, uncomplicated - Old myocardial infarction - Other fpc (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 - Type 2 diabetes mellitus without complications - Unspecified atrial fibrillation 01/04/2023 16:42 [facility] [place] TYPE: Emergency COMPLAINT: - SHORTNESS OF BREATH DIAGNOSES: - Allergy status to other antibiotic agents - Allergy status to other drugs, medicaments and biological substances - Chronic obstructive pulmonary disease with (acute) exacerbation - Contact with and (suspected) exposure to COVID-19 - Cough, unspecified - Dependence on supplemental oxygen - Heart failure, unspecified - Hypertensive heart disease with heart failure - correction (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 - correction (current) use of inhaled steroids - terminal makeup operator (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 of oral hypoglycemic drugs - Nicotine dependence, unspecified, uncomplicated - Old myocardial infarction - Other fpc (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 - Solitary pulmonary nodule - Type 2 diabetes mellitus without complications - Unspecified atrial fibrillation - Ventricular premature depolarization 12/20/2022 21:49 [facility] [place] TYPE: Emergency COMPLAINT: - DIZZY AND CP 11/11/2022 22:09 [facility] TYPE: Emergency COMPLAINT: - HEART ISSUES DIAGNOSES: - Allergy status to other antibiotic agents - Allergy status to other drugs, medicaments and biological substances - Chronic obstructive pulmonary disease, unspecified - Contact with and (suspected) exposure to COVID-19 - Dehydration - Essential (primary) hypertension - Hypomagnesemia - correction (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 - Nicotine dependence, unspecified, uncomplicated - Other rn long term care (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 - Tachycardia, unspecified - Type 2 diabetes mellitus without complications 10/22/2022 22:40 [place] TYPE: Emergency COMPLAINT: - DIFFICULTY BREATHING DIAGNOSES: - Chronic obstructive pulmonary disease, unspecified - Contact with and (suspected) exposure to COVID-19 - Epilepsy, unspecified, not intractable, without status epilepticus - Essential (primary) hypertension - terminal makeup operator (current) use of anticoagulants - correction (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 - terminal makeup operator (current) use of inhaled steroids - correction (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 of oral hypoglycemic drugs - Nicotine dependence, unspecified, uncomplicated - Non-ST elevation (NSTEMI) myocardial infarction - Other acidosis - Other fpc (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 - Other specified disorders of eye and adnexa - Respiratory failure, unspecified with hypercapnia - Syncope and collapse - Type 2 diabetes mellitus without complications 10/18/2022 20:14 [facility] [place] TYPE: Emergency COMPLAINT: - DIZZY AND EYES FEELING WEIRD DIAGNOSES: - Chronic obstructive pulmonary disease, unspecified - Dizziness and giddiness - Essential (primary) hypertension - terminal makeup operator (current) use of anticoagulants - Nicotine dependence, unspecified, uncomplicated - Other fpc (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 - Type 2 diabetes [...] to COVID-19 - Essential (primary) hypertension - correction (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 - Nicotine dependence, cigarettes, uncomplicated - Nicotine dependence, unspecified, uncomplicated - Noninfective gastroenteritis and colitis, unspecified - Other rn long term care (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 - Paroxysmal atrial fibrillation [...] - Nicotine dependence, unspecified, uncomplicated - Other fpc (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 - Type 2 diabetes mellitus without complications INPATIENT VISIT TRACKING (12 MO.) 12/21/2022 09:05 [place] TYPE: Medical Surgical COMPLAINT: - ATRIAL FIBRILLATION WITH RVR,COPD EXACERBATION DIAGNOSES: - Abnormal findings on diagnostic imaging of heart and coronary circulation - Acquired absence of other organs - Acquired absence of other organs - Acquired absence of other specified parts of digestive tract - Acquired absence of other specified parts of digestive tract - Allergy status to other antibiotic agents - Allergy status to other antibiotic agents - Allergy status to other drugs, medicaments and biological substances - Allergy status to other drugs, medicaments and biological substances - Chronic obstructive pulmonary disease with (acute) exacerbation - Chronic obstructive pulmonary disease with (acute) exacerbation - Contact with and (suspected) exposure to COVID-19 - Contact with and (suspected) exposure to COVID-19 - Dependence on supplemental oxygen - Dependence on supplemental oxygen - Dependence on wheelchair - Dependence on wheelchair - Essential (primary) hypertension - Essential (primary) hypertension - Hypomagnesemia - Hypomagnesemia - correction (current) use of antibiotics - correction (current) use of anticoagulants - correction (current) use of anticoagulants - terminal makeup operator (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 - correction (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 - terminal makeup operator (current) use of inhaled steroids - correction (current) use of inhaled steroids - correction (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 of oral hypoglycemic drugs - correction (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 of oral hypoglycemic drugs - Nicotine dependence, cigarettes, uncomplicated - Nicotine dependence, cigarettes, uncomplicated - Old myocardial infarction - Old myocardial infarction - Other rn long term care (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 - Other fpc (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 - Other specified postprocedural states - Other specified postprocedural states - Paroxysmal atrial fibrillation - Paroxysmal atrial fibrillation - Solitary pulmonary nodule - Solitary pulmonary nodule - Type 2 diabetes mellitus without complications - Type 2 diabetes mellitus without complications - Unspecified atrial fibrillation - Unspecified atrial flutter - Unspecified atrial flutter - Unspecified convulsions - Unspecified convulsions - Unspecified right bundle-branch block - Unspecified right bundle-branch block 10/23/2022 06:03 [facility] Sarah MOON ([place]) TYPE: Surgical Services DIAGNOSES: - Acute respiratory failure with hypoxia - Centrilobular emphysema - Dependence on supplemental oxygen - Emphysema, unspecified - Non-ST elevation (NSTEMI) myocardial infarction - Pulmonary mycobacterial infection - Sleep related hypoventilation in conditions classified elsewhere - Cardiac Arrest [email or web address]
[2023-01-16 02:58] LABS: EOSINOPHILS 0.4 % (0-6); HEMOGLOBIN 13.3 g/dL (12.0-18.0); LYMPHOCYTES 18.8 % (24-44); MCHC 33.2 g/dl (30-36); MCV 93.3 fl (81-99); MONOCYTES 11.4 % (0-12); NEUTROPHILS 68.4 % (39-80); PLATELET COUNT 296 K/uL (140-440); RBC 4.29 M/ul (4.3-5.7); RDW 14.8 (10.5-15.0)
[2023-01-16 03:20] LABS: ALBUMIN 2.8 g/dL (3.4-5.0); ALBUMIN/GLOBULIN RATIO 0.68 (1.1-2.4); ANION GAP 10.4 (7-21); BILIRUBIN, TOTAL 0.3 ng/dL (0.2-1.0); BUN/CREATININE RATIO 18.91 (6.0-28.6); CALCIUM 8.7 mg/dL (8.5-10.1); CREATININE, SERUM 1.11 mg/dL (0.70-1.30); POTASSIUM 4.4 mmol/L (3.5-5.1); PROTEIN, TOTAL 6.9 g/dL (6.4-8.2)
[2023-01-16] MEDS ORDERED: PREDNISONE20 MG PO (03:54)
[2023-01-16 04:03] VITALS: BP 128/76
== END 2023-01-16 04:03 | disposition home or self-care (01) ==
LOC: ED 22:02
PROVIDERS: Emergency Medicine
DX: J44.1 Chronic obstructive pulmonary disease with (acute) exacerbation (principal); F17.200 Nicotine dependence, unspecified, uncomplicated; E11.9 Type 2 diabetes mellitus without complications; I10 Essential (primary) hypertension; I25.2 Old myocardial infarction; Z99.81 Dependence on supplemental oxygen; Z88.1 Allergy status to other antibiotic agents; Z88.8 Allergy status to other drugs, medicaments and biological substances; Z79.899 Other long term (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; Z79.01 Long term (current) use of anticoagulants; Z79.82 Long term (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; Z79.51 Long term (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 of inhaled steroids
CPT/HCPCS: 36415; 71045; 80053; 83880; 84484; 85025; 94644; 96374; 99285-25; J2930

== ENCOUNTER 2023-01-19 12:34 | Emergency (ER) | payer MEDICARE, OTHER ==
[~2023-01-19] VITALS: Ht 175.3 cm; Wt 93.2 kg
--- NOTE | ~2023-01-19 | EKG ---
[facility] [address] [facility] [place], [place] [address] Draft EK completed, results pending confirmation PATIENT NAME: DATKEVIN SR Electrocardiogram DATE OF : 46 PHYSICIAN: PRELIMINARY REPORT #: [id number] REPORT IS CONFIDENTIAL AND NOT TO BE RELEASED WITHOUT AUTHORIZATION
--- OUTSIDE RECORDS SUMMARY | 2023-01-19 12:36 | XMS ---
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Current ALEKNAGIK Keniu PHONE: [phone] Guidelines Source: [facility] Guidelines Date: 01/13/2021 Other Information: Patient has follow up visit with Dr. Orantes on 01/15/2021 Care History Social 03/09/2017 [facility] PATIENT RECEIVES FOOD STAMPS THROUGH [facility] Medical/Surgical 07/09/2021 [facility] Appropriate use of ED for SOB. 05/22/2021 [facility] Patient was seen by PCP Dr. Orantes on 05/20/2021 05/08/2020 [facility] Patient has wellness visit scheduled on 05/18/[address] Orantes. No medical records in eCW for hospital visit on 05/02/2020 or 05/07/2020. Will VISIT COUNT (12 MO.) 9 ELIE Moctezuma TOTAL 9 NOTE: Visits indicate total known visits. ED/UCC VISIT TRACKING (12 MO.) 01/19/2023 12:35 [facility] TYPE: Emergency COMPLAINT: - SHORTNESS OF BREATH 01/15/2023 22:03 [facility] [place] TYPE: Emergency COMPLAINT: - SHORTNESS OF BREATH DIAGNOSES: - Allergy status to other antibiotic agents - Allergy status to other drugs, medicaments and biological substances - Chronic obstructive pulmonary disease with (acute) exacerbation - Dependence on supplemental oxygen - Essential (primary) hypertension - emt intermediate (current) use of anticoagulants - senior living (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 - senior living (current) use of inhaled steroids - Nicotine dependence, unspecified, uncomplicated - Old myocardial infarction - Other senior living (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 - Shortness of breath - Type 2 diabetes mellitus without complications 01/11/2023 11:59 [facility] [place] TYPE: Emergency COMPLAINT: - FAST HEART RATE DIAGNOSES: - Allergy status to other drugs, medicaments and biological substances - Chronic obstructive pulmonary disease with (acute) exacerbation - Dependence on supplemental oxygen - Dyspnea, unspecified - Heart failure, unspecified - Hypertensive heart disease with heart failure - senior living (current) use of anticoagulants - emt intermediate (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 - emt intermediate (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 of oral hypoglycemic drugs - Nicotine dependence, unspecified, uncomplicated - Old myocardial infarction - Other assistant terminal manager (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 - Type 2 diabetes [...] Hypertensive heart disease with heart failure - senior living (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 - emt intermediate (current) use of inhaled steroids - emt intermediate (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 of oral hypoglycemic drugs - Nicotine dependence, unspecified, uncomplicated - Old myocardial infarction - Other assistant terminal manager (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 - Solitary pulmonary nodule - Type 2 diabetes mellitus without complications - Unspecified atrial fibrillation - Ventricular premature depolarization 12/20/2022 21:49 [facility] [place] TYPE: Emergency COMPLAINT: - DIZZY AND CP 11/11/2022 22:09 [facility] TYPE: Emergency COMPLAINT: - HEART ISSUES DIAGNOSES: - Allergy status to other antibiotic agents - Allergy status to other drugs, medicaments and biological substances - Chronic obstructive pulmonary disease, unspecified - Contact with and (suspected) exposure to COVID-19 - Dehydration - Essential (primary) hypertension - Hypomagnesemia - senior living (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 - Nicotine dependence, unspecified, uncomplicated - Other senior living (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 - Tachycardia, unspecified - Type 2 diabetes mellitus without complications 10/22/2022 22:40 [facility] TYPE: Emergency COMPLAINT: - DIFFICULTY BREATHING DIAGNOSES: - Chronic obstructive pulmonary disease, unspecified - Contact with and (suspected) exposure to COVID-19 - Epilepsy, unspecified, not intractable, without status epilepticus - Essential (primary) hypertension - senior living (current) use of anticoagulants - emt intermediate (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 - emt intermediate (current) use of inhaled steroids - emt intermediate (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 of oral hypoglycemic drugs - Nicotine dependence, unspecified, uncomplicated - Non-ST elevation (NSTEMI) myocardial infarction - Other acidosis - Other assistant terminal manager (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 - Other specified disorders of eye and adnexa - Respiratory failure, unspecified with hypercapnia - Syncope and collapse - Type 2 diabetes mellitus without complications 10/18/2022 20:14 [facility] [place] TYPE: Emergency COMPLAINT: - DIZZY AND EYES FEELING WEIRD DIAGNOSES: - Chronic obstructive pulmonary disease, unspecified - Dizziness and giddiness - Essential (primary) hypertension - emt intermediate (current) use of anticoagulants - Nicotine dependence, unspecified, uncomplicated - Other assistant terminal manager (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 - Type 2 diabetes [...] to COVID-19 - Essential (primary) hypertension - emt intermediate (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 - Nicotine dependence, cigarettes, uncomplicated - Nicotine dependence, unspecified, uncomplicated - Noninfective gastroenteritis and colitis, unspecified - Other assistant terminal manager (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 - Paroxysmal atrial fibrillation - Type 2 diabetes mellitus without complications - Unspecified abdominal pain INPATIENT VISIT TRACKING (12 MO.) 12/21/2022 09:05 [...] (primary) hypertension - Hypomagnesemia - Hypomagnesemia - emt intermediate (current) use of antibiotics - senior living (current) use of anticoagulants - senior living (current) use of anticoagulants - senior living (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 - senior living (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 - senior living (current) use of inhaled steroids - senior living (current) use of inhaled steroids - senior living (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 of oral hypoglycemic drugs - emt intermediate (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 of oral hypoglycemic drugs - Nicotine dependence, cigarettes, uncomplicated - Nicotine dependence, cigarettes, uncomplicated - Old myocardial infarction - Old myocardial infarction - Other senior living (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 - Other assistant terminal manager (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
[2023-01-19 12:50] LABS: BASOPHILS 1.3 % (0-2); EOSINOPHILS 0.7 % (0-6); HEMATOCRIT 42.4 % (35.0-50.0); HEMOGLOBIN 13.8 g/dL (12.0-18.0); LYMPHOCYTES 27.2 % (24-44); MCHC 32.6 g/dl (30-36); MCV 95.1 fl (81-99); MONOCYTES 8.6 % (0-12); NEUTROPHILS 62.2 % (39-80); PLATELET COUNT 383 K/uL (140-440); RBC 4.46 M/ul (4.3-5.7); RDW 15.1 (10.5-15.0)
[2023-01-19 13:13] LABS: ALBUMIN 2.9 g/dL (3.4-5.0); ALBUMIN/GLOBULIN RATIO 0.76 (1.1-2.4); ANION GAP 11.1 (7-21); BILIRUBIN, TOTAL 0.3 ng/dL (0.2-1.0); BUN/CREATININE RATIO 16.26 (6.0-28.6); CALCIUM 8.9 mg/dL (8.5-10.1); CREATININE, SERUM 1.23 mg/dL (0.70-1.30); MAGNESIUM 1.8 mg/dL (1.8-2.4); POTASSIUM 5.1 mmol/L (3.5-5.1); PROTEIN, TOTAL 6.7 g/dL (6.4-8.2)
[2023-01-19 19:39] VITALS: BP 113/75
--- NOTE | 2023-01-19 22:41 | EKG ---
[facility] [address] [place] [address] Signed Wide QRS tachycardia Left axis deviation Right bundle branch block Inferior infarct , age undetermined Abnormal ECG When compared with ECG of 04-JAN-2023 12:36, Ventricular tachycardia has replaced Atrial fibrillation Confirmed by Rafaela Hampton MD () on 01/19/2023 10:41:21 PM Electronically Signed By: RAFAELA HAMPTON MD 01/19/232240 PATIENT NAME: DAUGHERTYKEVIN Electrocardiogram DATE OF : 46 PHYSICIAN: RAFAELA HAMPTON MD REPORT #: [id number] REPORT IS CONFIDENTIAL AND NOT TO BE RELEASED WITHOUT AUTHORIZATION
== END 2023-01-19 19:39 | disposition short-term general hospital (02) ==
LOC: ED 12:34
PROVIDERS: Emergency Medicine
DX: I47.20 Ventricular tachycardia, unspecified (principal); J96.90 Respiratory failure, unspecified, unspecified whether with hypoxia or hypercapnia; J44.9 Chronic obstructive pulmonary disease, unspecified; E11.9 Type 2 diabetes mellitus without complications; I10 Essential (primary) hypertension; I25.2 Old myocardial infarction; I48.91 Unspecified atrial fibrillation; F17.210 Nicotine dependence, cigarettes, uncomplicated; Z99.81 Dependence on supplemental oxygen; Z88.1 Allergy status to other antibiotic agents; Z88.8 Allergy status to other drugs, medicaments and biological substances; Z79.899 Other long term (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; Z79.84 Long term (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 of oral hypoglycemic drugs; Z79.01 Long term (current) use of anticoagulants
CPT/HCPCS: 36415; 71045; 80053; 83735; 83880; 84484; 85025; 87502; 93005; 93010; 94640; 94660; 99406; J0282; J2060; J2930; J3475; U0002

== ENCOUNTER 2023-02-03 13:45 | Emergency (ER) | payer MEDICARE ==
[~2023-02-03] VITALS: Ht 175.3 cm; Wt 93.0 kg
[2023-02-03] MEDS ORDERED: AMIODARONE HCL200 MG PO (14:08)
[2023-02-03] MEDS ORDERED: PREDNISONE10 MG PO (14:08)
[2023-02-03] MEDS ORDERED: AZITHROMYCIN500 MG PO (14:08)
[2023-02-03] MEDS ORDERED: METOPROLOL SUCC25 MG PO (14:09)
[2023-02-03] MEDS ORDERED: LOSARTAN POTASS25 MG PO (14:10)
[2023-02-03] MEDS ORDERED: ETHAMBUTOL HCL400 MG PO (14:11)
[2023-02-03] MEDS ORDERED: FUROSEMIDE40 MG PO (14:11)
[2023-02-03] MEDS ORDERED: BREO ELLIPTA I1 EACH INH (14:12)
[2023-02-03] MEDS ORDERED: FLUTICASONE PRO16 GM NAS (14:15)
[2023-02-03] MEDS ORDERED: JARDIANCE10 MG (14:16)
[2023-02-03 14:32] LABS: BASOPHILS 0.4 % (0-2); EOSINOPHILS 0.5 % (0-6); HEMATOCRIT 41.6 % (35.0-50.0); HEMOGLOBIN 13.8 g/dL (12.0-18.0); LYMPHOCYTES 9.6 % (24-44); MCH 31.1 (27-36); MCHC 33.3 g/dl (30-36); MCV 93.4 fl (81-99); MONOCYTES 7.9 % (0-12); NEUTROPHILS 81.6 % (39-80); PLATELET COUNT 290 K/uL (140-440); RBC 4.45 M/ul (4.3-5.7); RDW 15.1 (10.5-15.0)
[2023-02-03 14:53] LABS: ALBUMIN 2.5 g/dL (3.4-5.0); ALBUMIN/GLOBULIN RATIO 0.56 (1.1-2.4); ANION GAP 9.6 (7-21); BILIRUBIN, TOTAL 0.3 ng/dL (0.2-1.0); BUN/CREATININE RATIO 13.6 (6.0-28.6); CALCIUM 9.2 mg/dL (8.5-10.1); CREATININE, SERUM 1.25 mg/dL (0.70-1.30); POTASSIUM 4.6 mmol/L (3.5-5.1)
[2023-02-03 15:41] LABS: BILIRUBIN, URINE NEGATIVE (negative); BLOOD/HGB, URINE NEGATIVE (Negative); KETONE, URINE NEGATIVE (Negative); LEUK ESTERASE, URINE NEGATIVE (negative); NITRITE, URINE NEGATIVE (negative); PH, URINE 6.5 (5-7)
[2023-02-03 18:32] VITALS: BP 119/91
--- NOTE | 2023-02-03 22:29 | EKG ---
[facility] [address] [place] [address] Signed Atrial flutter with variable AV block Left axis deviation Nonspecific intraventricular conduction delay Nonspecific ST and T wave abnormality Abnormal ECG When compared with ECG of 19-JAN-2023 12:52, Atrial flutter has replaced Sinus rhythm QRS duration has increased Non-specific change in ST segment in Inferior leads Confirmed by Rafaela Hampton MD () on 02/03/2023 10:29:12 PM Electronically Signed By: RAFAELA HAMPTON MD 02/03/23 2229 PATIENT NAME: KEVIN DAUGHERTY Electrocardiogram DATE OF : 46 PHYSICIAN: RAFAELA HAMPTON MD REPORT #: [id number] REPORT IS CONFIDENTIAL AND NOT TO BE RELEASED WITHOUT AUTHORIZATION
== END 2023-02-03 18:38 | disposition home or self-care (01) ==
LOC: ED 13:45
PROVIDERS: Emergency Medicine
DX: R10.32 Left lower quadrant pain (principal); J44.9 Chronic obstructive pulmonary disease, unspecified; F17.200 Nicotine dependence, unspecified, uncomplicated; E11.9 Type 2 diabetes mellitus without complications; I10 Essential (primary) hypertension; I25.2 Old myocardial infarction; Z88.1 Allergy status to other antibiotic agents; Z99.81 Dependence on supplemental oxygen; Z79.84 Long term (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 of oral hypoglycemic drugs; Z79.82 Long term (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; Z79.51 Long term (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 of inhaled steroids; Z79.52 Long term (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 of systemic steroids; Z79.899 Other long term (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
CPT/HCPCS: 36415; 71045; 74177; 80053; 81003; 83605; 85025; 93005; 93010; 94640; J7030; Q9967

== ENCOUNTER 2023-02-08 23:58 | Emergency (ER) | payer MEDICARE ==
[~2023-02-08] VITALS: Ht 175.3 cm; Wt 92.0 kg
[~2023-02-08 23:58] MED LIST changes: +AMIODARONE HCL200 MG PO; +BREO ELLIPTA I1 EACH INH; +FLUTICASONE PRO16 GM NAS; +FUROSEMIDE40 MG PO; +JARDIANCE10 MG; +METOPROLOL SUCC25 MG PO; +PREDNISONE10 MG PO
[2023-02-09 00:12] LABS: PH, VENOUS 7.478 (7.31-7.41)
[2023-02-09 00:13] LABS: BASOPHILS 0.1 % (0-2); EOSINOPHILS 0.7 % (0-6); HEMATOCRIT 40.4 % (35.0-50.0); HEMOGLOBIN 13.6 g/dL (12.0-18.0); MCHC 33.5 g/dl (30-36); MCV 92.4 fl (81-99); MONOCYTES 5.4 % (0-12); NEUTROPHILS 84.8 % (39-80); PLATELET COUNT 349 K/uL (140-440); RBC 4.37 M/ul (4.3-5.7); RDW 14.6 (10.5-15.0)
[2023-02-09 00:42] LABS: ALBUMIN 2.5 g/dL (3.4-5.0); ALBUMIN/GLOBULIN RATIO 0.52 (1.1-2.4); BILIRUBIN, TOTAL 0.3 ng/dL (0.2-1.0); BUN/CREATININE RATIO 12.71 (6.0-28.6); CREATININE, SERUM 1.18 mg/dL (0.70-1.30); PROTEIN, TOTAL 7.3 g/dL (6.4-8.2)
[2023-02-09 03:46] VITALS: BP 100/58
--- NOTE | 2023-02-09 06:56 | EKG ---
[facility] [address] [facility] [place] [address] Signed Atrial flutter with variable AV block Left axis deviation Nonspecific intraventricular conduction delay Nonspecific ST abnormality Abnormal ECG When compared with ECG of 03-FEB-2023 13:58, No significant change was found Confirmed by RACQUEL FUNES MD ([id number]) on 02/09/2023 6:56:43 AM Electronically Signed By: RACQUEL FUNES 02/09/23 0656 PATIENT NAME: KEVIN DAUGHERTY Electrocardiogram DATE OF : 46 PHYSICIAN: RACQUEL FUNES REPORT #: [id number] REPORT IS CONFIDENTIAL AND NOT TO BE RELEASED WITHOUT AUTHORIZATION
--- NOTE | 2023-02-09 06:57 | EKG ---
[facility] [address] [facility] [place] [address] Signed Normal sinus rhythm Left axis deviation Nonspecific intraventricular block Abnormal ECG When compared with ECG of 09-FEB-2023 00:07, (Unconfirmed) Sinus rhythm has replaced Atrial flutter Confirmed by RACQUEL FUNES MD ([id number]) on 02/09/2023 6:57:02 AM Electronically Signed By: RACQUEL FUNES 02/09/23 0657 PATIENT NAME: KEVIN DAUGHERTY Electrocardiogram DATE OF : 46 PHYSICIAN: RACQUEL FUNES REPORT #: [id number] REPORT IS CONFIDENTIAL AND NOT TO BE RELEASED WITHOUT AUTHORIZATION
== END 2023-02-09 03:46 | disposition home or self-care (01) ==
LOC: ED 23:58
PROVIDERS: Family Medicine
DX: J44.1 Chronic obstructive pulmonary disease with (acute) exacerbation (principal); I48.91 Unspecified atrial fibrillation; I10 Essential (primary) hypertension; I25.2 Old myocardial infarction; E11.9 Type 2 diabetes mellitus without complications; F17.200 Nicotine dependence, unspecified, uncomplicated; Z99.81 Dependence on supplemental oxygen; Z88.1 Allergy status to other antibiotic agents; Z88.8 Allergy status to other drugs, medicaments and biological substances; Z79.899 Other long term (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; Z79.01 Long term (current) use of anticoagulants; Z79.84 Long term (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 of oral hypoglycemic drugs
CPT/HCPCS: 36415; 71045; 80053; 82803; 83880; 84484; 85025; 93005; 93010; 94640; J2405; J2930; J7030

== ENCOUNTER 2023-02-13 18:43 | Observation (INO) | payer MEDICARE ==
[~2023-02-13] VITALS: Ht 175.3 cm; Wt 88.7 kg
[2023-02-13] MEDS ORDERED: SPIRIVA18 MCG INH (18:49)
[2023-02-13 18:57] LABS: BASOPHILS 0.3 % (0-2); EOSINOPHILS 0.6 % (0-6); HEMATOCRIT 38.8 % (35.0-50.0); HEMOGLOBIN 13.1 g/dL (12.0-18.0); LYMPHOCYTES 7.3 % (24-44); MCH 30.9 (27-36); MCHC 33.8 g/dl (30-36); MCV 91.3 fl (81-99); MONOCYTES 5.4 % (0-12); NEUTROPHILS 86.4 % (39-80); PLATELET COUNT 415 K/uL (140-440); RBC 4.25 M/ul (4.3-5.7); RDW 14.8 (10.5-15.0)
[2023-02-13 19:20] LABS: ALBUMIN 1.9 g/dL (3.4-5.0); ALBUMIN/GLOBULIN RATIO 0.39 (1.1-2.4); ANION GAP 10.6 (7-21); BILIRUBIN, TOTAL 0.3 ng/dL (0.2-1.0); BUN/CREATININE RATIO 11.11 (6.0-28.6); CALCIUM 8.5 mg/dL (8.5-10.1); CREATININE, SERUM 1.17 mg/dL (0.70-1.30); MAGNESIUM 1.6 mg/dL (1.8-2.4); POTASSIUM 3.6 mmol/L (3.5-5.1); PROTEIN, TOTAL 6.8 g/dL (6.4-8.2)
[2023-02-13 19:47] LABS: LACTIC ACID, BLOOD 1.2 mmol/L (0.4-2.0)
[2023-02-13 20:53] LABS: INFLUENZA B NAA NEGATIVE (NEGATIVE); RESPIRATORY SYNCYTIAL VIR NAA NEGATIVE (NEGATIVE)
[2023-02-13 21:57] VITALS: BP 92/53
[2023-02-14] VITALS: BP 110/71
[2023-02-14 04:00] VITALS: BP 93/58
[2023-02-14 05:00] VITALS: BP 103/52
[2023-02-14 05:40] LABS: ALBUMIN 1.8 g/dL (3.4-5.0); ALBUMIN/GLOBULIN RATIO 0.38 (1.1-2.4); BILIRUBIN, TOTAL 0.3 ng/dL (0.2-1.0); BUN/CREATININE RATIO 13.46 (6.0-28.6); CALCIUM 8.8 mg/dL (8.5-10.1); CREATININE, SERUM 1.04 mg/dL (0.70-1.30); PROTEIN, TOTAL 6.5 g/dL (6.4-8.2)
[2023-02-14 06:00] VITALS: BP 95/58
[2023-02-14] MEDS ORDERED: PREDNISONE20 MG PO (07:09)
[2023-02-14] MEDS ORDERED: DOXYCYCLINE HY100 MG PO (07:10)
[2023-02-14] MEDS ORDERED: AMOX TR-K CLV1 EAC1 PO (07:10)
[2023-02-14] MEDS ORDERED: FUROSEMIDE20 MG PO (07:47)
[2023-02-14 07:52] VITALS: BP 98/57
[2023-02-14] MEDS ORDERED: LASIX20 MG PO (10:47)
[2023-02-14 11:55] VITALS: BP 98/63
--- NOTE | 2023-02-15 05:56 | EKG ---
[facility] [address] [facility] [place] [address] Signed Atrial flutter with variable AV block Left axis deviation Nonspecific intraventricular conduction delay Abnormal ECG When compared with ECG of 09-FEB-2023 00:33, Atrial flutter has replaced Sinus rhythm Confirmed by MAYKEL SPRINGER MD ([id number]) on 02/15/2023 5:56:16 AM Electronically Signed By: MAYKEL SPRINGER 02/15/23 0556 PATIENT NAME: DATKEVIN Electrocardiogram DATE OF : 46 PHYSICIAN: MAYKEL SPRINGER REPORT #: [id number] REPORT IS CONFIDENTIAL AND NOT TO BE RELEASED WITHOUT AUTHORIZATION
== END 2023-02-14 12:55 | disposition home or self-care (01) ==
LOC: ED 18:43 → CCU 18:44
PROVIDERS: Family Medicine; Internal Medicine; ADMIT Family Medicine; ATTEND Family Medicine
DX: J96.21 Acute and chronic respiratory failure with hypoxia (principal); J44.1 Chronic obstructive pulmonary disease with (acute) exacerbation; I48.91 Unspecified atrial fibrillation; E11.9 Type 2 diabetes mellitus without complications; G40.909 Epilepsy, unspecified, not intractable, without status epilepticus; E78.5 Hyperlipidemia, unspecified; I10 Essential (primary) hypertension; I25.2 Old myocardial infarction; F17.210 Nicotine dependence, cigarettes, uncomplicated; Z79.84 Long term (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 of oral hypoglycemic drugs; Z79.899 Other long term (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; Z79.01 Long term (current) use of anticoagulants; Z88.9 Allergy status to unspecified drugs, medicaments and biological substances; Z99.81 Dependence on supplemental oxygen
CPT/HCPCS: 36415; 71045; 80053; 83605; 83735; 83880; 84484; 85025; 87040; 87502; 93005; 93010; 94640; C9803; J0696; J1815; J2930; J7121; J7512; U0002

== ENCOUNTER 2023-04-13 08:35 | Emergency (ER) | payer MEDICARE, OTHER ==
[~2023-04-13] VITALS: Ht 175.3 cm; Wt 88.8 kg
--- NOTE | ~2023-04-13 | EKG ---
[facility] [address] [facility] [place], [place] [address] Draft EK completed, results pending confirmation PATIENT NAME: DATKEVIN SR Electrocardiogram DATE OF : 46 PHYSICIAN: PRELIMINARY REPORT #: [id number] REPORT IS CONFIDENTIAL AND NOT TO BE RELEASED WITHOUT AUTHORIZATION
[~2023-04-13 08:35] MED LIST changes: +DOXYCYCLINE HY100 MG PO; +FUROSEMIDE20 MG PO
[2023-04-13 09:13] LABS: BASOPHILS 0.3 % (0-2); EOSINOPHILS 0.6 % (0-6); HEMATOCRIT 46.5 % (35.0-50.0); HEMOGLOBIN 14.9 g/dL (12.0-18.0); LYMPHOCYTES 5.4 % (24-44); MCH 30.4 (27-36); MONOCYTES 4.4 % (0-12); NEUTROPHILS 89.3 % (39-80); PLATELET COUNT 418 K/uL (140-440); RDW 16.5 (10.5-15.0)
[2023-04-13 09:20] LABS: ALBUMIN 3.1 g/dL (3.4-5.0); ALBUMIN/GLOBULIN RATIO 0.7 (1.1-2.4); ANION GAP 16.3 (7-21); BILIRUBIN, TOTAL 0.4 ng/dL (0.2-1.0); BUN/CREATININE RATIO 14.74 (6.0-28.6); CREATININE, SERUM 1.56 mg/dL (0.70-1.30); POTASSIUM 5.3 mmol/L (3.5-5.1); PROTEIN, TOTAL 7.5 g/dL (6.4-8.2)
[2023-04-13 10:18] LABS: LACTIC ACID, BLOOD 3.7 mmol/L (0.4-2.0)
[2023-04-13 10:33] LABS: ABO O; ANTIBODY SCREEN NEGATIVE; RH POSITIVE
[2023-04-13 12:44] LABS: BILIRUBIN, URINE NEGATIVE (negative); BLOOD/HGB, URINE NEGATIVE (Negative); KETONE, URINE NEGATIVE (Negative); LEUK ESTERASE, URINE NEGATIVE (negative); NITRITE, URINE NEGATIVE (negative); PH, URINE 5.5 (5-7)
[2023-04-13 16:40] VITALS: BP 99/67
== END 2023-04-13 16:25 | disposition short-term general hospital (02) ==
LOC: ED 08:35
PROVIDERS: Emergency Medicine
DX: A41.9 Sepsis, unspecified organism (principal); R10.9 Unspecified abdominal pain; J44.1 Chronic obstructive pulmonary disease with (acute) exacerbation; K92.2 Gastrointestinal hemorrhage, unspecified; E11.9 Type 2 diabetes mellitus without complications; I10 Essential (primary) hypertension; I25.2 Old myocardial infarction; I48.91 Unspecified atrial fibrillation; F17.200 Nicotine dependence, unspecified, uncomplicated; Z99.81 Dependence on supplemental oxygen; Z88.1 Allergy status to other antibiotic agents; Z88.8 Allergy status to other drugs, medicaments and biological substances; Z79.899 Other long term (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; Z79.01 Long term (current) use of anticoagulants; Z79.84 Long term (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 of oral hypoglycemic drugs; Z79.82 Long term (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
CPT/HCPCS: 36415; 71045; 74019; 74022; 80053; 81003; 83605; 83690; 83735; 83880; 85025; 86850; 86900; 86901; 93005; 93010; 94640; J0696; J2405; J7030; J7040

== ENCOUNTER 2023-05-14 06:49 | Inpatient (IN) | payer MEDICARE ==
[~2023-05-14] VITALS: Ht 175.3 cm; Wt 89.1 kg
[2023-05-14] VITALS (13 sets, daily range): BP systolic 86–132; BP diastolic 61–86
[2023-05-14] MEDS ORDERED: ALBUTEROL/IPRATROPIUM 3 ML NEB INH ONE (06:50)
[2023-05-14] MEDS ORDERED: ALBUTEROL/IPRATROPIUM 3 ML NEB ONE (06:58)
[2023-05-14 06:59] LABS: BASOPHILS 0.6 % (0-2); HEMATOCRIT 46.2 % (35.0-50.0); HEMOGLOBIN 15.2 g/dL (12.0-18.0); LYMPHOCYTES 19.9 % (24-44); MCH 31.2 (27-36); MCHC 32.9 g/dl (30-36); MCV 94.8 fl (81-99); MONOCYTES 10.4 % (0-12); NEUTROPHILS 67.1 % (39-80); PLATELET COUNT 339 K/uL (140-440); RBC 4.88 M/ul (4.3-5.7); RDW 16.7 (10.5-15.0)
[2023-05-14] MEDS ORDERED: MORPHINE SULFATE 4 MG/ML VIAL IV ONE (07:00)
[2023-05-14 07:25] LABS: ALBUMIN 3.1 g/dL (3.4-5.0); ALBUMIN/GLOBULIN RATIO 0.66 (1.1-2.4); BILIRUBIN, TOTAL 0.2 ng/dL (0.2-1.0); BUN/CREATININE RATIO 11.81 (6.0-28.6); CALCIUM 9.1 mg/dL (8.5-10.1); CREATININE, SERUM 1.1 mg/dL (0.70-1.30); MAGNESIUM 1.9 mg/dL (1.8-2.4); PROTEIN, TOTAL 7.8 g/dL (6.4-8.2)
[2023-05-14] MEDS ORDERED: SODIUM CHLORIDE 0.9% 1,000 ML IV PRN (07:45)
[2023-05-14 08:22] LABS: BASE EXCESS, BLOOD GAS -1.9 mmol/L (-2-2); HCO3, BLOOD GAS 24.4 mmol/L (22-26); O2 SATURATION, BLOOD GAS 98.6 % (95.0-100.0); PCO2, BLOOD GAS 46.7 mmHg (35-45); PH, BLOOD GAS 7.33 (7.35-7.45); PO2, BLOOD GAS 142 mmHg (80-100); TOTAL CO2, BLOOD GAS 25.9
[2023-05-14] MEDS ORDERED: methylPREDNISolone SOD SUCC 40 MG/ML VIAL IV SCH (08:45)
[2023-05-14] MEDS ORDERED: ENOXAPARIN SODIUM 40 MG/0.4 ML SYR SUB-Q SCH (09:00)
[2023-05-14] MEDS ORDERED: AZITHROMYCIN 500 MG in DEXTROSE 5% 250 ML IV SCH (09:00)
[2023-05-14] MEDS ORDERED: CEFTRIAXONE/SODIUM CHLORIDE 1 GM/100 ML PIGGYBACK IV SCH (09:00)
--- NOTE | 2023-05-14 09:26 | NUR ---
PT ADMITTED FROM ER, AT BEDSIDE. PT ON BIPAP 18/6 FIO2 50%, RR 30. HYPOTENSIVE, IV BOLUS ORDERED IN ER CONTINUED. LUNG SOUNDS COARSE AND DIMINISHED THROUGHOUT, PT STATES BREATHING FEELS BETTER. WITHOUT EDEMA, CMS INTACT. IV ROCEPHIN INFUSION STARTED. PT POSITIVE FOR SEPSIS, DISCUSSED WITH DR. RESENDEZ AND NEW ORDER FOR LACTIC AND BLOOD CULTURES.
--- NOTE | 2023-05-14 09:35 | NUR ---
CURRENTLY ON BIPAP, EYES CLOSED. WILL COMPLETE ASSESSMENT AT A LATER TIME.
[2023-05-14] MEDS ORDERED: LO-DOSE ASPIRIN81 MG PO (10:50)
[2023-05-14] MEDS ORDERED: METOPROLOL SUCC50 MG PO (10:51)
[2023-05-14] MEDS ORDERED: JARDIANCE25 MG PO (10:58)
[2023-05-14] MEDS ORDERED: FUROSEMIDE40 MG PO (11:00)
[2023-05-14] MEDS ORDERED: ENTRESTO 24 MG1 EACH PO (11:01)
[2023-05-14] MEDS ORDERED: hydrOXYzine pamoate 25 MG CAP PO PRN (11:15)
--- NOTE | 2023-05-14 11:18 | NUR ---
PT STATES HE IS FEELING ANXIOUS, TAKES HYDROXYZINE AT HOME, DISCUSSED WITH DR. RESENDEZ, VERBAL ORDER TO CONTINUE HOME HYDROXYZINE. ADDITIONALLY, DISCUSED REMOVING BIPAP PER PT REQUEST, OK TO REMOVE TOLERATED. ADDITIONALLY DISCUSSED PT HX OF DM, ORDER FOR MIDERATE SS HUMALOG WITH MEALS AND BEDTIME WITH BLOOD GLUCOSE CHECKS. ECHO IN ROOM AT THIS TIME.
[2023-05-14] MEDS ORDERED: DEXTROSE 50% 50 ML SYR IV PRN ×2 (11:45)
[2023-05-14] MEDS ORDERED: IBLOOD GLUCOSE TEST STRIP 1 EA TEST XX PRN (11:45)
[2023-05-14] MEDS ORDERED: GLUCAGON,HUMAN RECOMBINANT 1 MG/ML VIAL SUB-Q PRN (11:45)
[2023-05-14] MEDS ORDERED: DEXTROSE 5% 1,000 ML IV PRN (11:45)
[2023-05-14] MEDS ORDERED: IBLOOD GLUCOSE TEST STRIP 1 EA TEST VI SCH (12:00)
[2023-05-14] MEDS ORDERED: INSULIN LISPRO 100 UNIT/ML ML SUB-Q SCH (12:00)
[2023-05-14] MEDS ORDERED: ALBUTEROL/IPRATROPIUM 3 ML NEB INH SCH (12:00)
--- NOTE | 2023-05-14 12:00 | NUR ---
PT WEANED TO 4L NC FROM BIPAP, RT IN ROOM GIVING NEB. PT CONTINUES TO REPORT FEELING ANXIOUS GIVEN VISTIRIL PER ORDER. PT BG 201, GIVEN 3 UNIS SS HUMALOG. PT ASSISTED TO USE URINAL, VOIDED 150ML. PT REQUESTING NICOTINE REPLACEMENT.
[2023-05-14] MEDS ORDERED: HYDROXYZINE HCL25 MG PO (12:01)
[2023-05-14] MEDS ORDERED: NICOTINE 21 MG/24 HR 1 EA TDSY TD SCH (12:05)
--- NOTE | 2023-05-14 12:12 | NUR ---
UR NOTE 05/14/23 INPATIENT ORDER >2 MIDNIGHTS EXPECTED
[2023-05-14] MEDS ORDERED: NICOTINE POLACRILEX 4 MG LOZENGE BUCCAL PRN (12:15)
--- NOTE | 2023-05-14 13:04 | NUR ---
MED REC COMPLETE
--- NOTE | 2023-05-14 14:52 | NUR ---
PT SITTING IN CHAIR, ASSISTED THERE BY PT/OT. PT GIVEN SOLUMEDROL PER EMAR, PT REQUESTING ADDITIONAL NICOTINE LOZENGE, PROVIDED. PT DENIES OTHER NEEDS AT THIS TIME.
--- NOTE | 2023-05-14 15:44 | NUR ---
PT CONTINUES TO SIT IN CHAIR. AND SON AT BEDSIDE. PT LUNG SOUNDS COARSE WITH EXPIRATORY WHEEZE AND DIMINISHED, NONPRODUCTIVE COUGH. 90-91% ON 5L NC. PT DECLINING BIPAP AT THIS TIME, WILL CONTINUE TO MONITOR.
[2023-05-14] MEDS ORDERED: AMIODARONE HCL 200 MG TAB PO SCH (17:37)
[2023-05-14] MEDS ORDERED: ASPIRIN 81 MG CHEW PO SCH (17:45)
--- NOTE | 2023-05-14 17:52 | NUR ---
PT HR 100-110S, BLOOD PRESSURE HAS NORMALIZED, PT HAS NOT TAKEN HOME MEDICATIONS AND IS ON MULTIPLE CARDIAC MEDICATIONS, ADDITIONALLY PT REQUESTING REQUIP THIS EVENING. DISCUSSED WITH DR. RESENDEZ, ORDERED TO START HOME ASPIRIN, ELIQUIS, AMIODARONE AND REQUIP, RBOV.
[2023-05-14 17:57] LABS: INFLUENZA B NAA NEGATIVE (NEGATIVE); RESPIRATORY SYNCYTIAL VIR NAA NEGATIVE (NEGATIVE)
--- NOTE | 2023-05-14 18:16 | NUR ---
PT ASSISTED TO BED FROM CHAIR. GIVEN AMIODARONE AND ASPIRIN PER ORDER. PT ASSISTED TO USE URINAL. PT DENIES OTHER NEEDS AT THIS TIME.
--- NOTE | 2023-05-14 19:50 | NUR ---
PATIENT REQUEST A SANDWICH BOX AND A NICOTINE LOZENGE. THESE WERE PROVIDED TO THE PATIENT. PATIENT RESTING IN BED WITH AT BEDSIDE. DENIES ANY CONCERNS. TOLERATING 5L NC. CALL LIGHT IN REACH.
--- NOTE | 2023-05-14 20:26 | NUR ---
PATIENT ATE 100% OF SANDWISH BOX AND MULTIPLE SNACKS HIS BROUGHT HIM. PATIENT FEELS THAT HIS BREATHING IS AT BASELINE. HACKING COUGH NOTED, TOLERATING 5L NC, SOB WITH ACTIVITY, WHEEZING AND COARSE LUNG SOUNDS NOTED THROUGHOUT, RR 25-35. PATIENT VS STABLE. AFIB; HR 90-100'S AT REST. PATIENT HAS BEEN VOIDING TO THE URNAL; URINE IS CLEAR YELLOW. PATIENT DENIED ANY CONCERNS. IS AT BEDSIDE.
[2023-05-14] MEDS ORDERED: APIXABAN 5 MG TAB PO SCH (21:00)
[2023-05-14] MEDS ORDERED: ROPINIROLE HCL 1 MG TAB PO SCH (21:00)
--- NOTE | 2023-05-14 22:18 | NUR ---
patient provided with meds per order. assisted patient to reposition in bed. tolerating 5l nc; Sp02 89-93%. RR 30. vs stable. call light in reach. lights dimmed.
[2023-05-14] MEDS ORDERED: ACETAMINOPHEN 500 MG TAB PO PRN (23:45)
--- NOTE | 2023-05-14 23:50 | NUR ---
PATIENT CALLING FREQUENTLY FOR MULTIPLE REQUEST. ATTEMPTS MADE TO MAKE PATIENT COMFORTABLE. SCHEDULED NEB TREATMENT PROVIDED. FAN FOR COMFORT. FRESH WATER PROVIDED. PATIENT REPORTS ONGOING LEG CRAMPS. REQUEST TLYNEOL. NIO ORDER FOR TYLENOL PLACED. PATIENT IS TOLERATING 5L NC. VS STABLE.
[2023-05-15] VITALS (11 sets, daily range): BP systolic 110–135; BP diastolic 66–81
--- NOTE | 2023-05-15 02:00 | NUR ---
PATIENT RESTING IN BED. VS STABLE. TOLERATING 5L NC. NO NEEDS AT THIS TIME. CALL LIGHT IN REACH.
--- NOTE | 2023-05-15 03:30 | NUR ---
PATIENT DESATING TO 86-87% ON 5L NC. TITRATED TO 6L AND CALLED RT FOR NEB TREATMENT. PATIENT REPOSITIONED IN BED. MAINTAINING Sp02 >88%
--- NOTE | 2023-05-15 05:00 | NUR ---
MORNING LABS DRAWN. PATIENT TOLERATING 6L NC. LUNG SOUNDS ARE COARSE THROUGHOUT. PATIENT HAS SLEPT A VERY SMALL AMOUNT TONIGHT. REPORTS BEING HUNGRY. NO NEEDS AT THIS TIME.
[2023-05-15 05:40] LABS: BASOPHILS 0.6 % (0-2); EOSINOPHILS 0.3 % (0-6); HEMATOCRIT 41.3 % (35.0-50.0); HEMOGLOBIN 13.6 g/dL (12.0-18.0); MCH 31.1 (27-36); MCV 94.3 fl (81-99); MONOCYTES 7.1 % (0-12); PLATELET COUNT 265 K/uL (140-440); RBC 4.38 M/ul (4.3-5.7); RDW 16.5 (10.5-15.0)
[2023-05-15 05:46] LABS: BUN/CREATININE RATIO 19.38 (6.0-28.6); CALCIUM 9.4 mg/dL (8.5-10.1); CREATININE, SERUM 0.98 mg/dL (0.70-1.30)
--- NOTE | 2023-05-15 08:35 | NUR ---
PT RESTING IN BED, AT BEDSIDE. PT ON 4L NC, O2 SATS 90-94%, LUNG SOUNDS COARSE WITH EXPIRATORY WHEEZE ON RIGHT, PT STATES BREATHING IS IMPROVED FROM YESTERDAY. BOWEL TONES ACTIVE, TOLERATING DIET. IV FLUSHED, PATENT, IV ROCEPHIN INFUSION STARTED. CMS INTACT, WITHOUT EDEMA. VOIDING QS WITHOUT DIFFICULTY. PT GIVEN 3 UNITS SS HUMALOG FOR BG 194. PT PROVIDED WITH NICOTINE LOZENGE. PT DENIES OTHER NEEDS AT THIS TIME.
--- NOTE | 2023-05-15 09:02 | NUR ---
PT REQUESTING NEBULIZER, RT UNAVAILABLE RIGHT NOW, NEB STARTED. PT WITH GOOD APPETITE, ATE 100% OF BREAKFAST. IV ZITHROMAX STARTED. PT DENIES OTHER NEEDS AT THIS TIME.
--- NOTE | 2023-05-15 09:40 | NUR ---
PT WORKING WITH PHYSICAL THERAPY, DESAT TO 86%, INCREASED TO 5L NC, ENCOURAGED DEEP BREATHS. WILL CONTINUE TO MONITOR.
--- NOTE | 2023-05-15 10:16 | NUR ---
PT COMPLAINT OF RIGHT AC IV HURTING, FLUSHED AND CONTINUES TO HAVE PAIN. ABX INFUSION STOPPED, NEW IV PLACED TO LEFT HAND 22G, ABX RESUMED. PT REQUESTING NICOTINE LOZENGE, PROVIDED. PT DENIES OTHER NEEDS AT THIS TIME.
--- NOTE | 2023-05-15 11:02 | NUR ---
PT STATES HE IS FEELING A LITTLE ANXIOUS REQUESTING VISTARIL, PROVIDED. PT DENIES OTHER NEEDS AT THIS TIME.
--- NOTE | 2023-05-15 11:54 | EKG ---
[facility] [address] [facility] [place] [address] Signed Sinus tachycardia Left axis deviation Marked ST abnormality, possible inferior subendocardial injury Abnormal ECG When compared with ECG of 13-APR-2023 08:45, Sinus rhythm has replaced Wide QRS tachycardia Confirmed by Minnie Resendez MD ([id number]) on 05/15/2023 11:54:36 AM Electronically Signed By: MINNIE RESENDEZ 05/15/23 1154 PATIENT NAME: DATKEVIN SR Electrocardiogram DATE OF : 46 PHYSICIAN: MINNIE RESENDEZ REPORT #: [id number] REPORT IS CONFIDENTIAL AND NOT TO BE RELEASED WITHOUT AUTHORIZATION
--- NOTE | 2023-05-15 13:04 | NUR ---
MET WITH PATIENT AND SPOUSE AT 12:20PM PATIENT HAD CALLED FOR PRAYER PATIENT DESIRED COMFORT OF CLERGY AND PRAYER FOR HEALING ENCOURAGED PATIENT AND HAD PRAYER PATIENT SEEMED MUCH ENCOURAGED
--- NOTE | 2023-05-15 13:26 | NUR ---
PT TRANSFERED FROM CCU TO ROOM 114, ALL BELONGINGS AND ARE WITH PT. PT EATING LUNCH, BG 224, GIVEN 3 UNITS SS HUMALOG. CONTINUOUS PULSE OX IN PLACE. PT DENIES OTHER NEEDS AT THIS TIME.
--- NOTE | 2023-05-15 17:03 | NUR ---
WE HELPED PATIENT GET IN THE SHOWER AND WE SCRUBED HIM DOWN AND SHAVED HIM.
--- NOTE | 2023-05-15 22:38 | NUR ---
PT IN BED, O2 4LNC IN PLACE, CHRONIC, CPOX AT BESIDE, SLIGTH REDNESS AROUND EYES AND MOUTH. PT STATED NOT HIS NORMAL, IT SEEMS CHRONIC. LUNGS WITH EXP AND INSP CRACKLES AND WHEEZING NOTED. HAS RECEIVED 2 NICOTINE GUM LOZENGERS, VISTARIL GIVEN PER ANXIETY. SL PATENT. UP TO BR EARLIER WITH WIFES HELP,
--- NOTE | 2023-05-15 23:44 | NUR ---
REASSTING, NO DISTRESS, O2 IN PLACE, RESPOSITIONS SELF, HOB ELEVATED
[2023-05-16] VITALS (9 sets, daily range): BP systolic 102–121; BP diastolic 70–78
--- NOTE | 2023-05-16 01:49 | NUR ---
Resting, eyes closed, O2 4LNC in place, no s/sx distress, repositions self in bed
--- NOTE | 2023-05-16 02:18 | NUR ---
drowsy, warm blanket given on requests, O2 4LNC in place, CPOX at bedside, WNL, no s/sx distress, turns and repositions self in bed
--- NOTE | 2023-05-16 03:41 | NUR ---
RESTING, EYES CLOSED, O2 4LNC IN PLACE, SATS 91%, ASKED FOR A NEB TX, RT CALLED. USED CALL LIGHT, URINAL EMPTIED
--- NOTE | 2023-05-16 06:10 | NUR ---
PT ON O2 4LNC. LUNGS WITH CRAKLES AND DIM, MOIST NON PRODUCTIVE COUGH PRESENT, RECEIED NEBS SCHEDULED AND PRN, SOLUMEDROL IV. BEDSIDE CPOX ON.. WNL. NO C/O PAIN. WAS MEDICATED WITH VISTARIL PER C/O ANXIETY, EFFECTIE, HAS HAD MAY LITTLE REQUESTS FOR SNACKS, NICOTINE GUM AND FLUIDS FOR SELF AND . USES URINAL, VOIDING QS. TOLERATING LIQUIDS WELL. TURNS AND REPOSITIONS SELF IN BED. SBA
--- NOTE | 2023-05-16 07:15 | NUR ---
REPORT RECEIVED FROM VERÓNICA BECKFORD. ASSUMING CARE OF PT.
--- NOTE | 2023-05-16 08:21 | NUR ---
I HELPED PATIENT GET OUT OF BED SO HE CAN EAT HIS BREATFAST.
--- NOTE | 2023-05-16 09:22 | NUR ---
PT UP TO CHAIR. A+O X3. PATIENT ASSESSMENT NOT ALLOWING CHARTING ON IV SITE, L HAND IV PATENT, ABX RUNNING IN IV, FLUSHED WITH 10ML NS, WINDOW DRESSING INTACT, LAST CHANGED YESTEREDAY 05/15. PT CONTINUES TO AMBULATE VIA FWW AND 1PA. MILD WHEEZING PRESENT IN BLL. CPOX REMAINS IN PLACE. BLE CONTINUE TO HAVE WEAKNESS. PT STATES NO QUESTIONS OR NEEDS AT THIS TIME, CALL LIGHT WITHIN REACH, AT THE BEDSIDE.
--- NOTE | 2023-05-16 10:48 | NUR ---
PATIENT GIVEN NICOTINE LOZENGE.
[2023-05-16] MEDS ORDERED: LOSARTAN POTASSIUM 25 MG TAB PO SCH (11:40)
[2023-05-16] MEDS ORDERED: METOPROLOL SUCCINATE 50 MG TABCR PO SCH (11:40)
--- NOTE | 2023-05-16 12:06 | NUR ---
PATIENT GIVEN NICOTINE LOZENGE.
--- NOTE | 2023-05-16 14:01 | NUR ---
PATIENT IN BED FOR NAP. PO VISTARIL AND NICOTINE LOZENGE. NO OTHER NEEDS AT THIS TIME.
--- NOTE | 2023-05-16 15:45 | NUR ---
NO CHANGE IN RESPIRATORY ASSESSMENT FROM MORNING ASSESSMENT. PT STATES NO FURTHER NEEDS AT THIS TIME, CALL LIGHT WITHIN REACH.
--- NOTE | 2023-05-16 16:09 | NUR ---
PT WATCHING TV WITH , REQUESTS NICOTINE LOSENGE, GIVEN. PT STATES HE WOULD LIKE FLONASE "IF IT CAN BE ORDERED". PT STATES NO FURTHER NEEDS AT THIS TIME, CALL LIGHT WITHIN REACH.
--- NOTE | 2023-05-16 17:08 | NUR ---
PT UP TO CHAIR EATING DINNER AND WATCHING TV WITH HIS . PT STATES NO FURTHER NEEDS AT THIS TIME, CALL LIGHT WITHIN REACH.
[2023-05-16] MEDS ORDERED: FLUTICASONE PROPIONATE 50 MCG BTL NAS SCH (17:30)
--- NOTE | 2023-05-16 19:42 | NUR ---
Report received from Enedelia SANCHES, pt in bed resting, eyes closed, O2 in place, rooming in
--- NOTE | 2023-05-16 20:09 | NUR ---
PT AWAKE, WATCHNG TV. NICOTINE GUM GIVEN ON REQUESTS, NO C/O PAIN OR SOB, TURNS AND REPOSITIONS SELF IN BED, COOP WITH ASSESSMENT AND VITALS. O2 4.5LNC IN PLACE, CPOX ON AT BEDSIDE. LUNGS WITH EXP WHEEZING AND RHONCHI T/O. DENIES COUGH SINCE THIS AM. USES URINAL. EDEMA TO ANKLES 1+ NON PITTING, ENCOURAGED TO ELEVATE THEM, "i WAS IN THE CHAIR A LOT TODAY AND MY LEGS WERE DOWN". STATED. TOLERATING FLUIDS WELL, WIDE AT BEDSIDE
--- NOTE | 2023-05-16 21:46 | NUR ---
CBG 194, RECEIVED 3 UNITS INSULIN, COOPERATIVE WITH ASSESSMENTS, TURNS AND REPOSTIONS SELF IN BED, FRESH WATER AND LUNCH SANDWICH BOX GIVEN ON REQUETS. IN ROOM
--- NOTE | 2023-05-16 21:55 | NUR ---
CHANGED FRESH GOWN.
--- NOTE | 2023-05-16 21:58 | NUR ---
NICOTINE GUM GIVEN ON REQUESTS, WATCHING TV, O2 4.5L NC. NO C/O SOB WITH EXERTION
--- NOTE | 2023-05-16 22:32 | NUR ---
EMPTIED URINAL 475 ML YELLOW URINE. NO OTHER NEEDS OR CONCERNS AT THIS TIME.
--- NOTE | 2023-05-17 00:41 | NUR ---
awake yennier, arguing with . then went to sleep right away. no requests.
--- NOTE | 2023-05-17 00:58 | NUR ---
NICOTINE GUM GIVEN ON REQUESTS
--- NOTE | 2023-05-17 04:08 | NUR ---
MEDICATED WITH NICOTINE LOZENGER PER HIS REQUESTS
[2023-05-17 05:17] VITALS: BP 100/60
--- NOTE | 2023-05-17 05:22 | NUR ---
pt in bed, O2 4.5L NC, CPOX on at bedside, sats wnl, moist non productive cough present. Lungs with exp wheezing and crackles at bases, gets neb tx. able to swallow w/o problems, tolerating liquids well. uses urinal, voiding QS. turns and repositions self in bed. Decreased edema to both ankles and feet noted, Legs were elevated in bed most of this shift.Has requested and given multiple nicotine gums at his requests per smoking cravings. Pt to be dc'd today. ways to help stop smoking at home after discharged was discussed with pt and . is a heavy smoker too, they both stated understaning.
--- NOTE | 2023-05-17 07:30 | NUR ---
PT AWAKE AND ALERT, NO RESPIRATIONS GABBY AND UNLABORED. PT REQUESTS NICOTINE LOZENGE.
--- NOTE | 2023-05-17 08:08 | NUR ---
I GOT PATIENT UP IN THE CHAIR READY FOR BREAKFAST. I GAVE HIM NEW LINENS
--- NOTE | 2023-05-17 08:49 | NUR ---
PT SITTING UP IN CHAIR EATING BREAKFAST WITH . NO REQUESTS OR COMPLAINTS AT THIS TIME.
[2023-05-17] MEDS ORDERED: AZITHROMYCIN500 MG PO (09:29)
[2023-05-17] MEDS ORDERED: CEFDINIR300 MG PO (09:29)
--- NOTE | 2023-05-17 09:46 | NUR ---
PT IN TO WORK WITH PATIENT.
[2023-05-17 09:55] VITALS: BP 112/67
--- NOTE | 2023-05-17 10:35 | NUR ---
PHARMACY IN ROOM DISCUSSING DC MEDICATIONS.
[2023-05-17] MEDS ORDERED: TOPROL XL25 MG PO (10:41)
[2023-05-17 10:56] VITALS: BP 109/70
--- NOTE | 2023-05-17 12:00 | NUR ---
pt up to commode to have large BM, tolerated well.
== END 2023-05-17 12:45 | disposition home or self-care (01) | DRG 189 ==
LOC: ED 06:49 → CCU 08:00 → MS 08:00
PROVIDERS: Emergency Medicine; ADMIT Internal Medicine; ATTEND Internal Medicine
PROC: 4A033R1 Measurement of Arterial Saturation, Peripheral, Percutaneous Approach (ICD-10-PCS; principal; 2023-05-14)
DX: J96.21 Acute and chronic respiratory failure with hypoxia (principal); J44.1 Chronic obstructive pulmonary disease with (acute) exacerbation; J96.22 Acute and chronic respiratory failure with hypercapnia; E11.9 Type 2 diabetes mellitus without complications; F17.210 Nicotine dependence, cigarettes, uncomplicated; I48.0 Paroxysmal atrial fibrillation; I11.0 Hypertensive heart disease with heart failure; I50.9 Heart failure, unspecified; E78.5 Hyperlipidemia, unspecified; G40.909 Epilepsy, unspecified, not intractable, without status epilepticus; Z90.89 Acquired absence of other organs; Z98.890 Other specified postprocedural states; I25.2 Old myocardial infarction; Z88.1 Allergy status to other antibiotic agents; Z90.49 Acquired absence of other specified parts of digestive tract; Z88.8 Allergy status to other drugs, medicaments and biological substances; Z79.51 Long term (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 of inhaled steroids; Z79.899 Other long term (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; Z79.2 Long term (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 of antibiotics; Z79.82 Long term (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; Z11.52 Encounter for screening for COVID-19
CPT/HCPCS: 36415; 71045; 80048; 80053; 82803; 83605; 83735; 83880; 84484; 85025; 87502; 93005; 93010; 93306; 94640; 94760; 94762; 96374; 97163; 97166; 97530; 97535; 99285-25; A9270; J0456; J0696; J1650; J1815; J2270; J2920; J7030; J7060; Q0177; U0002

== ENCOUNTER 2023-08-18 20:54 | Emergency (ER) | payer MEDICARE ==
[~2023-08-18] VITALS: Ht 175.3 cm; Wt 84.0 kg
[~2023-08-18 20:54] MED LIST changes: +AMOXICILLIN875 MG PO; +ARTHRITIS PAIN650 MG PO; +BREYNA 160-4.10.3 GM INH; +CEFDINIR300 MG PO; +CLOPIDOGREL75 MG PO; +ENTRESTO 24 MG1 EACH PO; +FAMOTIDINE20 MG PO; +JARDIANCE25 MG PO; +LO-DOSE ASPIRIN81 MG PO; +METOPROLOL SUC100 MG PO; +METOPROLOL SUCC50 MG PO; +TOPROL XL25 MG PO
[2023-08-18] MEDS ORDERED: methylPREDNISolone SOD SUCC 125 MG/2 ML VIAL IV ONE (21:00)
[2023-08-18] MEDS ORDERED: ALBUTEROL/IPRATROPIUM 3 ML NEB INH ONE (21:00)
[2023-08-18] MEDS ORDERED: ondansetron HCL 4 MG/2 ML VIAL IV ONE (21:00)
[2023-08-18] MEDS ORDERED: SODIUM CHLORIDE 0.9% 500 ML IV PRN (21:15)
[2023-08-18 21:19] LABS: BASOPHILS 0.7 % (0-2); HEMATOCRIT 47.5 % (35.0-50.0); HEMOGLOBIN 15.7 g/dL (12.0-18.0); LYMPHOCYTES 17.3 % (24-44); MCH 30.5 (27-36); MCHC 33.1 g/dl (30-36); MCV 92.2 fl (81-99); MONOCYTES 7.7 % (0-12); NEUTROPHILS 73.3 % (39-80); PLATELET COUNT 306 K/uL (140-440); RBC 5.15 M/ul (4.3-5.7); RDW 17.7 (10.5-15.0)
[2023-08-18 22:19] LABS: ALBUMIN/GLOBULIN RATIO 0.79 (1.1-2.4); ANION GAP 12.1 (7-21); BILIRUBIN, TOTAL 0.2 ng/dL (0.2-1.0); BUN/CREATININE RATIO 13.86 (6.0-28.6); CALCIUM 8.4 mg/dL (8.5-10.1); CREATININE, SERUM 1.01 mg/dL (0.70-1.30); POTASSIUM 5.1 mmol/L (3.5-5.1); PROTEIN, TOTAL 6.8 g/dL (6.4-8.2)
[2023-08-19] MEDS ORDERED: ONDANSETRON 4 MG HOME.PACK SL ONE (00:45)
[2023-08-19] MEDS ORDERED: methylPREDNISolone 4 MG HOME.PACK PO ONE (00:45)
[2023-08-19 00:50] VITALS: BP 104/69
--- NOTE | 2023-08-19 22:03 | EKG ---
[facility] [address] [facility] [place] [address] Signed Sinus tachycardia with short WA Left axis deviation Nonspecific intraventricular block Abnormal ECG When compared with ECG of 11-AUG-2023 13:09, Sinus rhythm has replaced Atrial flutter Confirmed by Rafaela Hampton MD () on 08/19/2023 10:03:08 PM Electronically Signed By: RAFAELA HAMPTON MD 08/19/232202 PATIENT NAME: DAUGHERTYKEVIN Electrocardiogram DATE OF : 46 PHYSICIAN: RAFAELA HAMPTON MD REPORT #: [id number] REPORT IS CONFIDENTIAL AND NOT TO BE RELEASED WITHOUT AUTHORIZATION
== END 2023-08-19 00:50 | disposition home or self-care (01) ==
LOC: ED 20:54
PROVIDERS: Family Medicine
DX: J44.1 Chronic obstructive pulmonary disease with (acute) exacerbation (principal); F17.200 Nicotine dependence, unspecified, uncomplicated; E11.9 Type 2 diabetes mellitus without complications; I10 Essential (primary) hypertension; I25.2 Old myocardial infarction; Z99.81 Dependence on supplemental oxygen; Z88.8 Allergy status to other drugs, medicaments and biological substances; Z88.1 Allergy status to other antibiotic agents; Z79.899 Other long term (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; Z79.84 Long term (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 of oral hypoglycemic drugs; Z79.01 Long term (current) use of anticoagulants; Z79.51 Long term (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 of inhaled steroids; Z79.02 Long term (current) use of antithrombotics/antiplatelets
CPT/HCPCS: 36415; 71045; 74177; 80053; 83880; 84484; 85025; 93005; 93010; A9270; J2405; J2930; J7040

== ENCOUNTER 2023-08-28 22:57 | Emergency (ER) | payer MEDICARE ==
[~2023-08-28] VITALS: Ht 175.3 cm; Wt 81.0 kg
[2023-08-28] MEDS ORDERED: methylPREDNISolone SOD SUCC 125 MG/2 ML VIAL IV ONE (23:15)
[2023-08-28] MEDS ORDERED: ALBUTEROL/IPRATROPIUM 3 ML NEB INH ONE (23:15)
[2023-08-28 23:18] LABS: HEMOGLOBIN 16.3 g/dL (12.0-18.0)
[2023-08-28 23:22] LABS: BASOPHILS 0.4 % (0-2); EOSINOPHILS 0.6 % (0-6); HEMATOCRIT 50.5 % (35.0-50.0); LYMPHOCYTES 13.7 % (24-44); MCHC 32.3 g/dl (30-36); MONOCYTES 10.5 % (0-12); NEUTROPHILS 74.8 % (39-80); PLATELET COUNT 333 K/uL (140-440); RBC 5.43 M/ul (4.3-5.7); RDW 17.6 (10.5-15.0)
[2023-08-28 23:29] LABS: INR 0.97 (0.80-1.30); PROTIME 12.2 Sec (11.2-14.2)
[2023-08-28 23:41] LABS: ALBUMIN 3.3 g/dL (3.4-5.0); ALBUMIN/GLOBULIN RATIO 0.8 (1.1-2.4); ANION GAP 15.5 (7-21); BILIRUBIN, TOTAL 0.2 ng/dL (0.2-1.0); CALCIUM 8.9 mg/dL (8.5-10.1); MAGNESIUM 1.7 mg/dL (1.8-2.4); POTASSIUM 4.5 mmol/L (3.5-5.1); PROTEIN, TOTAL 7.4 g/dL (6.4-8.2)
[2023-08-28] MEDS ORDERED: FUROSEMIDE 20 MG/2 ML VIAL IV ONE (23:45)
[2023-08-28] MEDS ORDERED: MAGNESIUM SULFATE 2 GM/50 ML BAG IV ONE (23:45)
[2023-08-29 01:47] VITALS: BP 98/47
--- NOTE | 2023-08-30 07:09 | EKG ---
[facility] [address] [facility] [place] [address] Signed Atrial flutter with variable AV block Left axis deviation Possible Anterior infarct , age undetermined Abnormal ECG When compared with ECG of 18-AUG-2023 20:55, Atrial flutter has replaced Sinus rhythm Questionable change in QRS duration Confirmed by Zita Oconnor ([id number]) on 08/30/2023 7:09:12 AM Electronically Signed By: ZITA OCONNOR MD 08/30/23 0709 PATIENT NAME: KEVIN DAUGHERTY Electrocardiogram DATE OF : 46 PHYSICIAN: ZITA OCONNOR MD REPORT #: [id number] REPORT IS CONFIDENTIAL AND NOT TO BE RELEASED WITHOUT AUTHORIZATION
== END 2023-08-29 01:44 | disposition home or self-care (01) ==
LOC: ED 22:57
PROVIDERS: Family Medicine
DX: J44.1 Chronic obstructive pulmonary disease with (acute) exacerbation (principal); R07.89 Other chest pain; I48.91 Unspecified atrial fibrillation; R91.1 Solitary pulmonary nodule; E11.9 Type 2 diabetes mellitus without complications; I10 Essential (primary) hypertension; Z99.81 Dependence on supplemental oxygen; I25.2 Old myocardial infarction; F17.200 Nicotine dependence, unspecified, uncomplicated; Z88.1 Allergy status to other antibiotic agents; Z88.8 Allergy status to other drugs, medicaments and biological substances; Z79.01 Long term (current) use of anticoagulants; Z79.51 Long term (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 of inhaled steroids; Z79.899 Other long term (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; Z79.84 Long term (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 of oral hypoglycemic drugs; Z79.02 Long term (current) use of antithrombotics/antiplatelets
CPT/HCPCS: 36415; 71045; 80053; 83735; 83880; 84484; 85025; 85610; 93005; 93010; 96365; 96375; 99285-25; J2919; J3475

== ENCOUNTER 2023-09-10 18:48 | Emergency (ER) | payer MEDICARE ==
[~2023-09-10] VITALS: Ht 175.3 cm; Wt 78.7 kg
[~2023-09-10 18:48] MED LIST changes: +LASIX40 MG PO
[2023-09-10] MEDS ORDERED: ALBUTEROL/IPRATROPIUM 3 ML NEB INH PRN (19:30)
[2023-09-10 19:44] LABS: BASOPHILS 0.3 % (0-2); EOSINOPHILS 0.9 % (0-6); HEMOGLOBIN 15.3 g/dL (12.0-18.0); LYMPHOCYTES 9.6 % (24-44); MCH 30.4 (27-36); MCHC 33.3 g/dl (30-36); MCV 91.2 fl (81-99); MONOCYTES 8.4 % (0-12); NEUTROPHILS 80.8 % (39-80); PLATELET COUNT 344 K/uL (140-440); RBC 5.04 M/ul (4.3-5.7); RDW 17.7 (10.5-15.0)
[2023-09-10 20:05] LABS: ALBUMIN 2.9 g/dL (3.4-5.0); ALBUMIN/GLOBULIN RATIO 0.67 (1.1-2.4); ANION GAP 16.5 (7-21); BILIRUBIN, TOTAL 0.3 ng/dL (0.2-1.0); BUN/CREATININE RATIO 14.51 (6.0-28.6); CALCIUM 8.7 mg/dL (8.5-10.1); CREATININE, SERUM 1.24 mg/dL (0.70-1.30); MAGNESIUM 1.9 mg/dL (1.8-2.4); POTASSIUM 5.5 mmol/L (3.5-5.1); PROTEIN, TOTAL 7.2 g/dL (6.4-8.2)
[2023-09-10] MEDS ORDERED: CALCIUM CHLORIDE 1,000 MG/10 ML SYR IV ONE (20:15)
[2023-09-10] MEDS ORDERED: ALBUTEROL SULFATE 0.5% 2.5 MG/0.5 ML VIAL INH ONE (20:30)
[2023-09-10] MEDS ORDERED: FAMOTIDINE 20 MG/ 2 ML VIAL IV ONE (20:30)
[2023-09-10] MEDS ORDERED: methylPREDNISolone SOD SUCC 125 MG/2 ML VIAL IV ONE (20:30)
[2023-09-10] MEDS ORDERED: ondansetron HCL 4 MG/2 ML VIAL IV ONE (20:30)
[2023-09-10] MEDS ORDERED: DEXTROSE 5% IV ONE (20:45)
[2023-09-10] MEDS ORDERED: CALCIUM CHLORIDE IV ONE (20:45)
[2023-09-10 21:22] LABS: INFLUENZA B NAA NEGATIVE (NEGATIVE); RESPIRATORY SYNCYTIAL VIR NAA NEGATIVE (NEGATIVE)
[2023-09-10 21:23] LABS: BILIRUBIN, URINE NEGATIVE (negative); BLOOD/HGB, URINE NEGATIVE (Negative); KETONE, URINE NEGATIVE (Negative); LEUK ESTERASE, URINE NEGATIVE (negative); NITRITE, URINE NEGATIVE (negative); PH, URINE 5.5 (5-7)
[2023-09-10] MEDS ORDERED: CEFTRIAXONE/SODIUM CHLORIDE 2 GM/100 ML PIGGYBACK IV ONE (21:45)
[2023-09-10 22:21] LABS: ANION GAP 13.7 (7-21); BUN/CREATININE RATIO 17.59 (6.0-28.6); CREATININE, SERUM 1.08 mg/dL (0.70-1.30); POTASSIUM 5.7 mmol/L (3.5-5.1)
[2023-09-10] MEDS ORDERED: SODIUM CHLORIDE 0.9% 1,000 ML IV PRN (22:45)
[2023-09-10] MEDS ORDERED: FUROSEMIDE 40 MG/4 ML VIAL IV ONE (22:45)
[2023-09-11 00:18] VITALS: BP 97/73
--- NOTE | 2023-09-11 22:14 | EKG ---
[facility] [address] [facility] [place] [address] Signed Wide QRS rhythm Left axis deviation Nonspecific intraventricular block Abnormal ECG Confirmed by RACQUEL FUNES MD ([id number]) on 09/11/2023 10:14:03 PM Electronically Signed By: RACQUEL FUNES 09/11/23 2214 PATIENT NAME: DATKEVIN SR Electrocardiogram DATE OF : 46 PHYSICIAN: RACQUEL FUNES REPORT #: [id number] REPORT IS CONFIDENTIAL AND NOT TO BE RELEASED WITHOUT AUTHORIZATION
--- NOTE | 2023-09-11 22:14 | EKG ---
[facility] [address] [facility] [place] [address] Signed Sinus tachycardia with 1st degree AV block Left axis deviation Nonspecific intraventricular block Abnormal ECG When compared with ECG of 10-SEP-2023 19:29, (Unconfirmed) Sinus rhythm has replaced Wide QRS rhythm Confirmed by RACQUEL FUNES MD ([id number]) on 09/11/2023 10:14:09 PM Electronically Signed By: RACQUEL FUNES 09/11/23 2214 PATIENT NAME: DAUGHERTYKEVIN RODRIGUEZ Electrocardiogram DATE OF : [birth year] PHYSICIAN: RACQUEL FUNES REPORT #: [id number] REPORT IS CONFIDENTIAL AND NOT TO BE RELEASED WITHOUT AUTHORIZATION
== END 2023-09-11 00:18 | disposition home or self-care (01) ==
LOC: ED 18:48
PROVIDERS: Internal Medicine
DX: J44.1 Chronic obstructive pulmonary disease with (acute) exacerbation (principal); E11.9 Type 2 diabetes mellitus without complications; I11.0 Hypertensive heart disease with heart failure; I50.9 Heart failure, unspecified; I25.2 Old myocardial infarction; F17.200 Nicotine dependence, unspecified, uncomplicated; Z88.1 Allergy status to other antibiotic agents; Z88.8 Allergy status to other drugs, medicaments and biological substances; Z79.899 Other long term (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; Z79.01 Long term (current) use of anticoagulants; Z11.52 Encounter for screening for COVID-19
CPT/HCPCS: 36415; 71045; 80048; 80053; 81003; 83735; 83880; 84484; 85025; 87502; 93005; 93010; 94640; 94644; J0696; J1940; J2405; J2919; J7030; U0002

== ENCOUNTER 2023-09-18 20:51 | Emergency (ER) | payer MEDICARE ==
[~2023-09-18] VITALS: Ht 175.3 cm; Wt 86.0 kg
[2023-09-18] MEDS ORDERED: MORPHINE SULFATE 4 MG/ML VIAL IV ONE (21:30)
[2023-09-18] MEDS ORDERED: methylPREDNISolone SOD SUCC 125 MG/2 ML VIAL IV ONE (21:30)
[2023-09-18] MEDS ORDERED: ondansetron HCL 4 MG/2 ML VIAL IV ONE (21:30)
[2023-09-18] MEDS ORDERED: ALBUTEROL/IPRATROPIUM 3 ML NEB INH ONE (21:30)
[2023-09-18] MEDS ORDERED: IPRATROPIUM BROMIDE 2.5 ML VIAL INH ONE (21:30)
[2023-09-18 21:34] LABS: PH, VENOUS 7.402 (7.31-7.41)
[2023-09-18 21:35] LABS: BASOPHILS 0.3 % (0-2); EOSINOPHILS 0.5 % (0-6); HEMATOCRIT 51.3 % (35.0-50.0); HEMOGLOBIN 17.1 g/dL (12.0-18.0); LYMPHOCYTES 8.6 % (24-44); MCH 30.6 (27-36); MCHC 33.4 g/dl (30-36); MCV 91.5 fl (81-99); MONOCYTES 8.2 % (0-12); NEUTROPHILS 82.4 % (39-80); PLATELET COUNT 363 K/uL (140-440); RDW 17.4 (10.5-15.0)
[2023-09-18 22:01] LABS: ALBUMIN 3.2 g/dL (3.4-5.0); ALBUMIN/GLOBULIN RATIO 0.74 (1.1-2.4); ANION GAP 13.9 (7-21); BILIRUBIN, TOTAL 0.2 ng/dL (0.2-1.0); BUN/CREATININE RATIO 21.55 (6.0-28.6); CREATININE, SERUM 1.16 mg/dL (0.70-1.30); POTASSIUM 4.9 mmol/L (3.5-5.1); PROTEIN, TOTAL 7.5 g/dL (6.4-8.2)
[2023-09-18] MEDS ORDERED: CEFTRIAXONE/SODIUM CHLORIDE 2 GM/100 ML PIGGYBACK IV ONE (23:00)
[2023-09-18] MEDS ORDERED: AZITHROMYCIN/DEXTROSE 500 MG/250 ML BAG IV ONE (23:00)
[2023-09-18] MEDS ORDERED: CEFDINIR300 MG PO (23:39)
[2023-09-18] MEDS ORDERED: AZITHROMYCIN500 MG PO (23:39)
[2023-09-18] MEDS ORDERED: ONDANSETRON ODT8 MG PO (23:40)
[2023-09-19 01:30] VITALS: BP 92/59
--- NOTE | 2023-09-19 13:59 | EKG ---
[facility] [address] [place] [address] Signed Sinus tachycardia with short IA Left axis deviation Incomplete left bundle branch block Abnormal ECG When compared with ECG of 14-SEP-2023 22:17, Sinus rhythm has replaced Atrial fibrillation Confirmed by Rafaela Hampton MD () on 09/19/2023 1:59:03 PM Electronically Signed By: RAFAELA HAMPTON MD 09/19/23 1359 PATIENT NAME: DAUGHERTYKEVIN Electrocardiogram DATE OF : [birth year] PHYSICIAN: RAFAELA HAMPTON MD REPORT #: [id number] REPORT IS CONFIDENTIAL AND NOT TO BE RELEASED WITHOUT AUTHORIZATION
== END 2023-09-19 01:30 | disposition home or self-care (01) ==
LOC: ED 20:51
PROVIDERS: Family Medicine
DX: J44.0 Chronic obstructive pulmonary disease with (acute) lower respiratory infection (principal); J18.9 Pneumonia, unspecified organism; I10 Essential (primary) hypertension; E11.9 Type 2 diabetes mellitus without complications; I25.2 Old myocardial infarction; F17.200 Nicotine dependence, unspecified, uncomplicated; Z79.899 Other long term (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; Z79.52 Long term (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 of systemic steroids
CPT/HCPCS: 36415; 71045; 80053; 82803; 83880; 84484; 85025; 93005; 93010; 94640; 96374; 96375; 99284-25; 99406; J0456; J0696; J2270; J2405; J2919

== ENCOUNTER 2023-10-04 20:27 | Inpatient (IN) | payer MEDICARE ==
[~2023-10-04] VITALS: Ht 175.3 cm; Wt 80.7 kg
[~2023-10-04 20:27] MED LIST changes: +ONDANSETRON ODT8 MG PO
[2023-10-04 20:42] LABS: PH, VENOUS 7.386 (7.31-7.41)
[2023-10-04 20:43] LABS: BASOPHILS 0.5 % (0-2); EOSINOPHILS 0.9 % (0-6); HEMOGLOBIN 15.5 g/dL (12.0-18.0); LYMPHOCYTES 13.7 % (24-44); MCH 29.8 (27-36); MCHC 32.3 g/dl (30-36); MCV 92.2 fl (81-99); MONOCYTES 7.9 % (0-12); PLATELET COUNT 295 K/uL (140-440); RBC 5.21 M/ul (4.3-5.7); RDW 17.8 (10.5-15.0)
[2023-10-04] MEDS ORDERED: ALBUTEROL/IPRATROPIUM 3 ML NEB INH ONE (20:45)
[2023-10-04] MEDS ORDERED: methylPREDNISolone SOD SUCC 125 MG/2 ML VIAL IV ONE (20:45)
[2023-10-04] MEDS ORDERED: ondansetron HCL 4 MG/2 ML VIAL IV ONE (21:00)
[2023-10-04 21:06] LABS: ALBUMIN 3.1 g/dL (3.4-5.0); ALBUMIN/GLOBULIN RATIO 0.79 (1.1-2.4); ANION GAP 11.1 (7-21); BILIRUBIN, TOTAL 0.3 ng/dL (0.2-1.0); BUN/CREATININE RATIO 15.62 (6.0-28.6); CALCIUM 8.9 mg/dL (8.5-10.1); CREATININE, SERUM 1.28 mg/dL (0.70-1.30); POTASSIUM 5.1 mmol/L (3.5-5.1)
[2023-10-04] MEDS ORDERED: FUROSEMIDE 20 MG/2 ML VIAL IV ONE (22:00)
[2023-10-04] MEDS ORDERED: ALBUMIN HUMAN 25% 100 ML BTL IV ONE (22:00)
[2023-10-04] MEDS ORDERED: ACETAMINOPHEN 325 MG TAB PO PRN (22:15)
[2023-10-04] MEDS ORDERED: ondansetron HCL 4 MG/2 ML VIAL IV PRN (22:15)
[2023-10-04] MEDS ORDERED: MORPHINE SULFATE 4 MG/ML VIAL IV PRN (22:15)
[2023-10-04] MEDS ORDERED: ALBUTEROL SULFATE 0.083% 3 ML VIAL INH PRN (22:15)
[2023-10-04 22:35] VITALS: BP 92/66
[2023-10-05] VITALS (8 sets, daily range): BP systolic 97–144; BP diastolic 60–93
[2023-10-05] MEDS ORDERED: NICOTINE POLACRILEX 4 MG LOZENGE BUCCAL PRN ×2 (00:15→03:15)
[2023-10-05] MEDS ORDERED: ROPINIROLE HCL 1 MG TAB PO SCH (00:15)
[2023-10-05] MEDS ORDERED: NICOTINE 21 MG/24 HR 1 EA TDSY TD SCH ×2 (00:35→09:00)
[2023-10-05] MEDS ORDERED: ALBUTEROL/IPRATROPIUM 3 ML NEB INH SCH ×2 (02:00)
[2023-10-05 05:37] LABS: BASOPHILS 0.5 % (0-2); EOSINOPHILS 0.1 % (0-6); HEMATOCRIT 40.8 % (35.0-50.0); HEMOGLOBIN 13.6 g/dL (12.0-18.0); LYMPHOCYTES 9.2 % (24-44); MCH 30.5 (27-36); MCHC 33.3 g/dl (30-36); MCV 91.6 fl (81-99); MONOCYTES 3.3 % (0-12); NEUTROPHILS 86.9 % (39-80); PLATELET COUNT 246 K/uL (140-440); RBC 4.45 M/ul (4.3-5.7); RDW 17.4 (10.5-15.0)
[2023-10-05 05:59] LABS: ALBUMIN/GLOBULIN RATIO 0.91 (1.1-2.4); ANION GAP 7.9 (7-21); BILIRUBIN, TOTAL 0.3 ng/dL (0.2-1.0); BUN/CREATININE RATIO 20.66 (6.0-28.6); CALCIUM 8.3 mg/dL (8.5-10.1); CREATININE, SERUM 1.21 mg/dL (0.70-1.30); MAGNESIUM 2.1 mg/dL (1.8-2.4); POTASSIUM 4.9 mmol/L (3.5-5.1); PROTEIN, TOTAL 6.3 g/dL (6.4-8.2)
[2023-10-05] MEDS ORDERED: methylPREDNISolone SOD SUCC 40 MG/ML VIAL IV SCH (06:00)
[2023-10-05] MEDS ORDERED: FUROSEMIDE 20 MG/2 ML VIAL IV SCH (09:00)
[2023-10-05] MEDS ORDERED: PHARMACY RENAL DOSE ADJUSTMENT 1 DOSE MISC PO SCH (12:00)
[2023-10-05] MEDS ORDERED: hydrOXYzine pamoate 25 MG CAP PO PRN (12:45)
[2023-10-05] MEDS ORDERED: AMIODARONE HCL 200 MG TAB PO SCH (17:49)
[2023-10-05] MEDS ORDERED: CLOPIDOGREL BISULFATE 75 MG TAB PO SCH (17:54)
[2023-10-05] MEDS ORDERED: METOPROLOL TARTRATE 100 MG TAB PO SCH (17:58)
[2023-10-05] MEDS ORDERED: FLUTICASONE PROPIONATE 50 MCG BTL NAS SCH (17:58)
[2023-10-05] MEDS ORDERED: ETHAMBUTOL HCL PO SCH (18:39)
[2023-10-05] MEDS ORDERED: ZITHROMAX500 MG PO (18:50)
[2023-10-05] MEDS ORDERED: SPIRIVA RESPIMAT4 GM INH (18:51)
[2023-10-05] MEDS ORDERED: ATORVASTATIN 40 MG TAB PO SCH (21:00)
[2023-10-05] MEDS ORDERED: FUROSEMIDE 40 MG/4 ML VIAL IV SCH (21:00)
[2023-10-05] MEDS ORDERED: carBAMazepine 200 MG TAB PO SCH (21:00)
[2023-10-05] MEDS ORDERED: FAMOTIDINE 20 MG TAB PO SCH (21:00)
[2023-10-05] MEDS ORDERED: PATIENT'S OWN MEDICATION(S) ORDER PO SCH ×2 (21:00)
[2023-10-05] MEDS ORDERED: SACUBITRIL/VALSARTAN 1 EACH TABLET PO SCH (21:00)
[2023-10-05] MEDS ORDERED: APIXABAN 5 MG TAB PO SCH (21:00)
[2023-10-06] VITALS (8 sets, daily range): BP systolic 91–119; BP diastolic 59–77
[2023-10-06] MEDS ORDERED: ALBUTEROL SULFATE 0.5% 2.5 MG/0.5 ML VIAL ONE (05:05)
[2023-10-06] MEDS ORDERED: ALBUTEROL SULFATE 0.083% 3 ML VIAL INH PRN (05:15)
[2023-10-06] MEDS ORDERED: ALBUTEROL SULFATE 0.5% 2.5 MG/0.5 ML VIAL INH PRN (05:15)
[2023-10-06 05:57] LABS: BASOPHILS 0.4 % (0-2); HEMATOCRIT 43.9 % (35.0-50.0); HEMOGLOBIN 14.5 g/dL (12.0-18.0); LYMPHOCYTES 9.6 % (24-44); MCH 30.5 (27-36); MCHC 32.9 g/dl (30-36); MCV 92.7 fl (81-99); MONOCYTES 8.2 % (0-12); NEUTROPHILS 81.8 % (39-80); PLATELET COUNT 259 K/uL (140-440); RBC 4.74 M/ul (4.3-5.7); RDW 17.1 (10.5-15.0)
[2023-10-06 06:12] LABS: ANION GAP 8.5 (7-21); BUN/CREATININE RATIO 23.89 (6.0-28.6); CREATININE, SERUM 1.13 mg/dL (0.70-1.30); POTASSIUM 4.5 mmol/L (3.5-5.1)
[2023-10-06] MEDS ORDERED: ETHAMBUTOL HCL PO SCH (09:00)
[2023-10-06] MEDS ORDERED: EMPAGLIFLOZIN 25 MG TAB PO SCH (09:00)
[2023-10-06] MEDS ORDERED: POLYETHYLENE GLYCOL 3350 1 PACKET PO SCH (21:00)
[2023-10-06] MEDS ORDERED: SENNOSIDES/DOCUSATE 1 EA TAB PO SCH (21:00)
[2023-10-07] VITALS (8 sets, daily range): BP systolic 89–110; BP diastolic 54–75
[2023-10-07] MEDS ORDERED: PREDNISONE20 MG PO (14:12)
--- NOTE | 2023-10-08 07:41 | EKG ---
[facility] [address] [facility] [place] [address] Signed Atrial flutter with variable AV block Left axis deviation Inferior infarct , age undetermined Possible Anterior infarct , age undetermined Abnormal ECG When compared with ECG of 18-SEP-2023 21:38, Significant changes have occurred Confirmed by Minnie Resendez MD ([id number]) on 10/08/2023 7:40:56 AM Electronically Signed By: MINNIE RESENDEZ 10/08/23 0741 PATIENT NAME: DATKEVIN SR Electrocardiogram DATE OF : [birth year] PHYSICIAN: MINNIE RESENDEZ REPORT #: [id number] REPORT IS CONFIDENTIAL AND NOT TO BE RELEASED WITHOUT AUTHORIZATION
--- NOTE | 2023-10-08 07:41 | EKG ---
[facility] [address] [facility] [place] [address] Signed Wide QRS rhythm Left axis deviation Incomplete left bundle branch block Abnormal ECG When compared with ECG of 06-OCT-2023 07:53, (Unconfirmed) Wide QRS rhythm has replaced Atrial flutter Vent. rate has increased BY 44 BPM Confirmed by Roslyn Resendez MD ([id number]) on 10/08/2023 7:41:02 AM Electronically Signed By: ROSLYN RESENDEZ 10/08/23 0741 PATIENT NAME: KEVIN DAUGHERTY Electrocardiogram DATE OF : [birth year] PHYSICIAN: ROSLYN RESENDEZ REPORT #: [id number] REPORT IS CONFIDENTIAL AND NOT TO BE RELEASED WITHOUT AUTHORIZATION
== END 2023-10-07 17:00 | disposition home or self-care (01) | DRG 291 ==
LOC: ED 20:27 → MS 20:28
PROVIDERS: Family Medicine; ADMIT Internal Medicine; ATTEND Internal Medicine
DX: I11.0 Hypertensive heart disease with heart failure (principal); J96.21 Acute and chronic respiratory failure with hypoxia; J44.1 Chronic obstructive pulmonary disease with (acute) exacerbation; I50.9 Heart failure, unspecified; E11.9 Type 2 diabetes mellitus without complications; F17.210 Nicotine dependence, cigarettes, uncomplicated; I25.2 Old myocardial infarction; Z99.81 Dependence on supplemental oxygen; Z98.890 Other specified postprocedural states; Z95.5 Presence of coronary angioplasty implant and graft; Z90.89 Acquired absence of other organs; Z90.49 Acquired absence of other specified parts of digestive tract; Z88.1 Allergy status to other antibiotic agents; Z88.8 Allergy status to other drugs, medicaments and biological substances; Z79.2 Long term (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 of antibiotics; Z79.899 Other long term (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; Z79.01 Long term (current) use of anticoagulants; Z79.51 Long term (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 of inhaled steroids
CPT/HCPCS: 36415; 71045; 80048; 80053; 82803; 83735; 83880; 85025; 93005; 93010; 94640; 94667; 94668; 94760; 94762; A9270; J1940; J2405; J2919; P9047; Q0177

== ENCOUNTER 2023-10-23 17:48 | Emergency (ER) | payer MEDICARE ==
[~2023-10-23 17:48] MED LIST changes: +SPIRIVA RESPIMAT4 GM INH; +ZITHROMAX500 MG PO
[2023-10-23] MEDS ORDERED: MORPHINE SULFATE 4 MG/ML VIAL IV ONE (18:00)
[2023-10-23] MEDS ORDERED: ASPIRIN 81 MG CHEW PO ONE (18:00)
[2023-10-23 18:20] LABS: BASOPHILS 0.5 % (0-2); EOSINOPHILS 0.5 % (0-6); HEMATOCRIT 47.3 % (35.0-50.0); HEMOGLOBIN 15.6 g/dL (12.0-18.0); LYMPHOCYTES 10.9 % (24-44); MCH 30.4 (27-36); MCHC 32.9 g/dl (30-36); MCV 92.3 fl (81-99); NEUTROPHILS 84.1 % (39-80); PLATELET COUNT 317 K/uL (140-440); RBC 5.12 M/ul (4.3-5.7); RDW 16.6 (10.5-15.0)
[2023-10-23 18:32] LABS: INR 1.03 (0.80-1.30); PROTIME 13.1 Sec (11.2-14.2)
[2023-10-23 18:44] LABS: ALBUMIN 2.8 g/dL (3.4-5.0); ALBUMIN/GLOBULIN RATIO 0.74 (1.1-2.4); ANION GAP 12.5 (7-21); BILIRUBIN, TOTAL 0.3 ng/dL (0.2-1.0); BUN/CREATININE RATIO 17.59 (6.0-28.6); CALCIUM 8.3 mg/dL (8.5-10.1); CREATININE, SERUM 1.08 mg/dL (0.70-1.30); MAGNESIUM 1.7 mg/dL (1.8-2.4); POTASSIUM 4.5 mmol/L (3.5-5.1); PROTEIN, TOTAL 6.6 g/dL (6.4-8.2)
[2023-10-23] MEDS ORDERED: MAGNESIUM SULFATE 2 GM/50 ML BAG IV ONE (19:45)
[2023-10-23] MEDS ORDERED: ALBUTEROL/IPRATROPIUM 3 ML NEB INH ONE (20:45)
[2023-10-23 21:20] VITALS: BP 99/72
--- NOTE | 2023-10-25 11:27 | EKG ---
[facility] [address] [facility] [place] [address] Signed Atrial flutter with variable AV block Left axis deviation Abnormal ECG When compared with ECG of 07-OCT-2023 08:27, Atrial flutter has replaced Wide QRS rhythm Confirmed by RACQUEL FUNES MD ([id number]) on 10/25/2023 11:27:14 AM Electronically Signed By: RACQUEL FUNES 10/25/23 1127 PATIENT NAME: KEVIN DAUGHERTY Electrocardiogram DATE OF : [birth year] PHYSICIAN: RACQUEL FUNES REPORT #: [id number] REPORT IS CONFIDENTIAL AND NOT TO BE RELEASED WITHOUT AUTHORIZATION
== END 2023-10-23 21:20 | disposition home or self-care (01) ==
LOC: ED 17:48
PROVIDERS: Family Medicine
DX: R07.9 Chest pain, unspecified (principal); J44.9 Chronic obstructive pulmonary disease, unspecified; E83.42 Hypomagnesemia; I11.0 Hypertensive heart disease with heart failure; I50.9 Heart failure, unspecified; I25.2 Old myocardial infarction; E11.9 Type 2 diabetes mellitus without complications; F17.200 Nicotine dependence, unspecified, uncomplicated; Z99.81 Dependence on supplemental oxygen; Z79.01 Long term (current) use of anticoagulants; Z79.84 Long term (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 of oral hypoglycemic drugs; Z79.899 Other long term (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; Z88.8 Allergy status to other drugs, medicaments and biological substances
CPT/HCPCS: 36415; 71045; 80053; 83735; 83880; 84484; 85025; 85610; 93005; 93010; 96365; 96375; 99285-25; A9270; J2270; J3475

== ENCOUNTER 2023-11-09 01:27 | Inpatient (IN) | payer MEDICARE ==
[2023-11-09] VITALS (17 sets, daily range): BP systolic 80–120; BP diastolic 56–94
[~2023-11-09] VITALS: Ht 175.3 cm; Wt 82.8 kg
[~2023-11-09 01:27] MED LIST changes: +ROPINIROLE HCL0.5 MG PO
[2023-11-09 01:50] LABS: BASOPHILS 0.6 % (0-2); EOSINOPHILS 0.1 % (0-6); HEMATOCRIT 45.1 % (35.0-50.0); HEMOGLOBIN 14.5 g/dL (12.0-18.0); LYMPHOCYTES 10.8 % (24-44); MCH 29.9 (27-36); MCHC 32.1 g/dl (30-36); MONOCYTES 7.6 % (0-12); NEUTROPHILS 80.9 % (39-80); PLATELET COUNT 430 K/uL (140-440); RBC 4.84 M/ul (4.3-5.7); RDW 16.5 (10.5-15.0)
[2023-11-09] MEDS ORDERED: SODIUM CHLORIDE 0.9% 500 ML IV PRN (02:00)
[2023-11-09] MEDS ORDERED: NOREPINEPHRINE BITARTRATE 250 ML IV SCH ×2 (02:00→06:00)
[2023-11-09 02:09] LABS: PH, VENOUS 7.391 (7.31-7.41)
[2023-11-09 02:15] LABS: ALBUMIN 2.9 g/dL (3.4-5.0); ALBUMIN/GLOBULIN RATIO 0.76 (1.1-2.4); ANION GAP 12.6 (7-21); BILIRUBIN, TOTAL 0.2 ng/dL (0.2-1.0); BUN/CREATININE RATIO 18.54 (6.0-28.6); CALCIUM 8.5 mg/dL (8.5-10.1); CREATININE, SERUM 1.24 mg/dL (0.70-1.30); POTASSIUM 4.6 mmol/L (3.5-5.1); PROTEIN, TOTAL 6.7 g/dL (6.4-8.2)
[2023-11-09] MEDS ORDERED: MIDAZOLAM HCL 2 MG/2 ML VIAL IV ONE (02:15)
[2023-11-09] MEDS ORDERED: ETOMIDATE 40 MG/20 ML VIAL IV ONE (02:15)
[2023-11-09] MEDS ORDERED: MIDAZOLAM HCL 2 MG/2 ML VIAL ONE (02:18)
[2023-11-09 02:43] LABS: INFLUENZA B NAA NEGATIVE (NEGATIVE); RESPIRATORY SYNCYTIAL VIR NAA NEGATIVE (NEGATIVE)
[2023-11-09] MEDS ORDERED: ALBUTEROL/IPRATROPIUM 3 ML NEB INH ONE (03:15)
[2023-11-09] MEDS ORDERED: AZITHROMYCIN/DEXTROSE 500 MG/250 ML BAG IV ONE (04:15)
[2023-11-09] MEDS ORDERED: CEFTRIAXONE/SODIUM CHLORIDE 2 GM/100 ML PIGGYBACK IV ONE (04:15)
[2023-11-09 04:38] LABS: BILIRUBIN, URINE NEGATIVE (negative); BLOOD/HGB, URINE NEGATIVE (Negative); KETONE, URINE NEGATIVE (Negative); LEUK ESTERASE, URINE NEGATIVE (negative); NITRITE, URINE NEGATIVE (negative); PH, URINE 5.5 (5-7)
[2023-11-09] MEDS ORDERED: methylPREDNISolone SOD SUCC 125 MG/2 ML VIAL IV SCH (06:00)
[2023-11-09] MEDS ORDERED: ondansetron HCL 4 MG/2 ML VIAL IV PRN (06:00)
[2023-11-09] MEDS ORDERED: ACETAMINOPHEN 325 MG TAB PO PRN (06:00)
[2023-11-09] MEDS ORDERED: ALBUTEROL SULFATE 0.083% 3 ML VIAL INH PRN (06:00)
[2023-11-09] MEDS ORDERED: ALBUTEROL/IPRATROPIUM 3 ML NEB INH SCH ×2 (08:00→12:00)
--- NOTE | 2023-11-09 08:24 | NUR ---
73 year old MALE PATIENT ADMITTED TO ROOM [address] RESENDEZ VIA [facility] ED , DX PNEUMONIA. UPON ADMITTED TO CCU PATIENT IS AWAKE, COOPERATIVE, FOLLOWING COMMANDS. IS ON LEVOPHED GTT AT 2 MCG/MIN, BP 80/64, GTT INCREASED TO 4 MCG/MIN. O2 AT 4 L NC. PATIENT REQUESTING NEB TREATMENT. GUZMAN CATH PATENT, WITH CLEAR YELLOW URINE NOTED. C/O LEFT SIDE CHEST DISCOMFORT, INCREASE WITH DEEP BREATH AND MOVEMENT. RARTES PAIN 4/10. DENIES N/V/D. LAST BM WAS PRIOR TO ADMIT. ADMISSION PROCESS STARTED.
--- NOTE | 2023-11-09 09:10 | NUR ---
DR. RESENDEZ HERE TO SEE PATIENT, ORDERS RECEIVED TO GIVE BOLUS OF LR 500 ML OVER ONE HR, THIS DONE.
[2023-11-09] MEDS ORDERED: LACTATED RINGER'S 500 ML IV ONE (09:30)
--- NOTE | 2023-11-09 10:00 | NUR ---
SLEEPING WITH HOB ELEVATED. O2 AT [address], LEVOPHED GTT INFUSING AT 4 MCG/MIN. GUZMAN PATENT. LR BOLUS CONTINUES TO INFUSE TO RIJ IV SITE.
[2023-11-09] MEDS ORDERED: CEFTRIAXONE/SODIUM CHLORIDE 2 GM/100 ML PIGGYBACK IV SCH ×2 (10:05→21:00)
[2023-11-09] MEDS ORDERED: AZITHROMYCIN 250 MG TAB PO SCH (10:06)
--- NOTE | 2023-11-09 10:13 | NUR ---
PATIENT RESTING IN BED WITH EYES CLOSED. ALLOWED TO REST AT THIS TIME. NURSE IN ROOM WELL.
[2023-11-09] MEDS ORDERED: NICOTINE POLACRILEX 4 MG LOZENGE BUCCAL PRN (10:45)
[2023-11-09] MEDS ORDERED: NICOTINE 21 MG/24 HR 1 EA TDSY TD SCH (10:45)
--- NOTE | 2023-11-09 10:48 | NUR ---
VISITED DURING SPIRITUAL CARE ROUNDS. PT APPEARED TO BE SLEEPING. DID NOT DISTURB. PROVIDED PRAYER.
[2023-11-09] MEDS ORDERED: NICOTINE POLACRILEX 4 MG LOZENGE ONE (10:49)
--- NOTE | 2023-11-09 11:00 | NUR ---
AWAKE. RESTLESS AND ANXIOUS. ASKING FOR ROUTINE MEDICATIONS. STATES I WISH I COULD GO HOME. AFTER TALKING WITH PATIENT FOR A WHILE, BRCAME MORE CALM. NICOTINE LOZENGE GIVEN. DR. DIPTI RICE PATEINT IS FEELING ANXIOUS. WILL START VISTERIL AND NICOTINE PATCH.
[2023-11-09] MEDS ORDERED: IBLOOD GLUCOSE TEST STRIP 1 EA TEST XX PRN (11:15)
[2023-11-09] MEDS ORDERED: DEXTROSE 50% 50 ML SYR IV PRN ×2 (11:15)
[2023-11-09] MEDS ORDERED: hydrOXYzine pamoate 25 MG CAP PO PRN (11:15)
[2023-11-09] MEDS ORDERED: GLUCAGON,HUMAN RECOMBINANT 1 MG/ML VIAL SUB-Q PRN (11:15)
[2023-11-09] MEDS ORDERED: DEXTROSE 5% 1,000 ML IV PRN (11:15)
--- NOTE | 2023-11-09 11:15 | NUR ---
REPOSITIONED AFTER NICOTINE PATCH AND VISTERAL GIVEN.
--- NOTE | 2023-11-09 11:19 | NUR ---
UR CLINICAL REVIEW: 2 MN FOR VERSALUS- MEETS INPT CRITERIA MEDICARE INPT 11/09/23 @ 0546 ORDER MATCHES REG NO AUTH REQUIRED PER MEDICARE GUIDELINES DISCHARGE PENDING FURTHER EVALUATION AND TREATMENT.
[2023-11-09] MEDS ORDERED: PHARMACY RENAL DOSE ADJUSTMENT 1 DOSE MISC PO SCH (12:00)
[2023-11-09] MEDS ORDERED: INSULIN LISPRO 100 UNIT/ML ML SUB-Q SCH (12:00)
[2023-11-09] MEDS ORDERED: IBLOOD GLUCOSE TEST STRIP 1 EA TEST XX SCH (12:00)
[2023-11-09] MEDS ORDERED: SPIRONOLACTONE25 MG PO (12:03)
[2023-11-09] MEDS ORDERED: ROPINIROLE HCL0.5 MG PO (12:03)
--- NOTE | 2023-11-09 12:03 | NUR ---
MED REC COMPLETE
[2023-11-09] MEDS ORDERED: carBAMazepine 200 MG TAB PO SCH (12:30)
[2023-11-09] MEDS ORDERED: ROPINIROLE HCL 0.25 MG TAB PO SCH (12:30)
[2023-11-09] MEDS ORDERED: EMPAGLIFLOZIN 25 MG TAB PO SCH (12:30)
[2023-11-09] MEDS ORDERED: CLOPIDOGREL BISULFATE 75 MG TAB PO SCH (12:30)
[2023-11-09] MEDS ORDERED: APIXABAN 5 MG TAB PO SCH (12:30)
[2023-11-09] MEDS ORDERED: FAMOTIDINE 20 MG TAB PO SCH (12:30)
--- NOTE | 2023-11-09 13:11 | NUR ---
RESPONDED TO PT REQUEST FOR PASTORAL CARE RELAYED BY BADGER DISTILLER OPERATOR HOOD. PT STATED DESIRE FOR PRAYER, CONTACT WITH INDUSTRIAL HYGIENE MANAGER TIMMY NAPOLES. PHOTOGRAPH ENLARGER PROVIDED SUPPORTIVE PRESENCE, HOSPITALITY, PRAYER. PT EXPRESSED GRATITUDE, DETERMINATION.
--- NOTE | 2023-11-09 13:26 | NUR ---
AT PT REQUEST, CONTACTED PASTOR TIMMY NAPOLES. PASTOR NAPOLES VERIFIED FAMILIARITY WITH PT AND INDICATED WOULD VISIT HIS SCHEDULE ALLOWED.
--- NOTE | 2023-11-09 13:30 | NUR ---
REQUESTING TO GET OOB TO CHAIR. THIS DONE. TRANSFERS WELL WITH LITTLE ASSIST. STABLE ON FEET. COOPERATIVE.
--- NOTE | 2023-11-09 14:02 | NUR ---
PATIENT ALERT AND ORIENTED. STATES HE LIVES AT HOME WITH . DEMOGRAPHICS VERIFIED. HAS A RAMP TO GET INTO HOUSE. HAS A WALKER, WHEELCHAIR, NEBULIZER, [facility]. STATES HE STILL DRIVES. DOES NOT HAVE ANY NEEDS FINANCIALLY. STATES HE HAS NO ISSUES GETTING FOOD, MEDICATIONS OR PAYING UTILITIES. STATES HE PLANS TO RETURN HOME AT TIME OF DC. INSTRUCTED TO NOTIFY STAFF IF NEEDS ARISE. VERBALIZES UNDERSTANDING.
--- NOTE | 2023-11-09 14:30 | NUR ---
BP-105/70. PATIENT IS AWAKE AND ALERT. SITTING IN CHAIR. LEVAPHED TURNED OFF. WILL CONTINUE TO MONITOR BP. PATIENT BACK TO BED WITH SUPERVISED ASSIST. FAIRLY STABLE ON FEET. INCREASED SHORTNESS OF BREATH WITH EXERTION. REMAINS ON O2 AT 4 LITERS NC. HR TO 124 WITH MOVEMENT. HOB ELEVATED.
--- NOTE | 2023-11-09 16:00 | NUR ---
SEVERAL FAMILY MEMBERS ARE IN ROOM. ASSESSMENT UNCHANGED. PATIENT IS W/O R/O,C/O.
--- NOTE | 2023-11-09 17:00 | NUR ---
SITTING AT BEDSIDE TO EAT DINNER. ACCUCHECK-178. INSULIN, 3 UNITS SQ GIVEN.
--- NOTE | 2023-11-09 17:20 | NUR ---
WHILE SITTING UP AT BEDSIDE EATING, PATIENT HAD SEVERE COUGHING SPELL. O2 SAT 88, HR 130. ENCOURAGED DEEP BREAHING. WAS ABLE TO RECOVER FAIRLY QUICKLY, APPROX 5 MIN,
--- NOTE | 2023-11-09 17:40 | NUR ---
TOOK 100% OF DINNER. BACK TO BED. NO FUTHER CHANGES. REMAINS OFF LEVOPHED GTT.
--- NOTE | 2023-11-09 19:28 | NUR ---
REPORT GIVEN. PATIENT RESTING.
--- NOTE | 2023-11-09 19:40 | NUR ---
ROUNDING IN PATIENT ROOM, PATIENT PLEASANT AND COOPERATIVE WITH STAFF, DISCUSSED PLAN OF CARE FOR TONIGHT, HE HAS NO COMPLAINTS AT THIS TIME, ASSESSMENT COMPLETE.
[2023-11-09] MEDS ORDERED: ROPINIROLE HCL 1 MG TAB PO SCH (21:00)
--- NOTE | 2023-11-09 21:27 | NUR ---
PATIENT REPOSITIONED, HE IS COOPERATIVE WITH ALL CARES. HAS NO FURTHER REQUESTS AT THIS TIME.
--- NOTE | 2023-11-09 22:08 | NUR ---
PATIENT EATING HIS HAMBURGER MEAL BROUGHT IN BY FAMILY EARILER TODAY NO, AFTER THIS RN HEATED MEAL UP FOR HIM.
[2023-11-09] MEDS ORDERED: ACETAMINOPHEN 500 MG TAB PO PRN (22:15)
--- NOTE | 2023-11-09 23:13 | NUR ---
PATIENT REPOSITIONED, FAN PROVIDED PER PATIENT REQUEST. OXYGEN NOTED TO DROP TO 83% WHEN PATIENT BEGAN TO SLEEP, THIS RN INTO PATIENT ROOM, PATIENT ALERT TO RN OXYGEN SATURATION INCREASED TO 84%, THIS RN PLACED OXYMASK TO 5L, WTIH N.C. AT 2L TO RAISED OXYGEN SATURATION TO 89-90%. HE DID REPORT HIS NOSE IS "STUFFY" HE HAS NASAL PRAY AT HOME.
[2023-11-09] MEDS ORDERED: ARTIFICIAL TEARS 15 ML BTL OU PRN (23:30)
[2023-11-09] MEDS ORDERED: SODIUM CHLORIDE 45 ML BTL NAS PRN (23:30)
--- NOTE | 2023-11-10 | NUR ---
PATIENT SITTING UP WATCHING TV. NO REQUESTS OR COMPLAINTS.
[2023-11-10 00:07] VITALS: BP 111/65
[2023-11-10 01:24] VITALS: BP 118/57; BP 188/57
[2023-11-10 03:37] VITALS: BP 99/61
[2023-11-10 05:20] LABS: HEMOGLOBIN 12.7 g/dL (12.0-18.0)
[2023-11-10 05:22] LABS: BASOPHILS 0.2 % (0-2); EOSINOPHILS 0.1 % (0-6); HEMATOCRIT 40.2 % (35.0-50.0); MCH 29.6 (27-36); MCHC 31.7 g/dl (30-36); MCV 93.4 fl (81-99); MONOCYTES 7.5 % (0-12); NEUTROPHILS 86.2 % (39-80); PLATELET COUNT 345 K/uL (140-440); RDW 16.2 (10.5-15.0)
--- NOTE | 2023-11-10 05:23 | NUR ---
PATIENT RESTING IN BED, ALERT TO STAFF AT BEDSIDE. THIS RN ASSESSED AND MING BLOOD FROM IJ FOR LABS, ALL THREE LINES MING BLOOD BACK BRISKLY, DRESSING INTACT.
[2023-11-10 05:33] LABS: ALBUMIN 2.5 g/dL (3.4-5.0); ALBUMIN/GLOBULIN RATIO 0.68 (1.1-2.4); ANION GAP 8.6 (7-21); BILIRUBIN, TOTAL 0.2 ng/dL (0.2-1.0); BUN/CREATININE RATIO 18.94 (6.0-28.6); CALCIUM 8.7 mg/dL (8.5-10.1); CREATININE, SERUM 0.95 mg/dL (0.70-1.30); MAGNESIUM 2.1 mg/dL (1.8-2.4); POTASSIUM 4.6 mmol/L (3.5-5.1); PROTEIN, TOTAL 6.2 g/dL (6.4-8.2)
[2023-11-10 06:06] VITALS: BP 101/72
--- NOTE | 2023-11-10 06:14 | NUR ---
PATIENT HAD DIFFICULTY FALLING ASLEEP, UNTIL 2300. HE HAS SLEPT WELL INTERMITTNE AWAKE TO COUGH AND REPOSITION. HE IS NOTED TO REQUIRE MORE OXYGEN WHILE SLEEPING ON HIS LEFT SIDE PER OXYMASK, HE REPORTS HIS NOSE IS STUFFY, AND THIS RN NOTES PATIENT IS MOUTH BREATHER WHILE SLEEPING. OXYMASK WAS PLACED OVER N.C. ON 6L WHILE SLEEPING TO MAINTAIN 88-92% OXYGEN SATURATION. HE HAS REQUESTED NICOTINE BETO. FREQUENTLY PRIOR TO SLEEPING. URINE OUT 1425ML OVER NIGHT, BILLY HAD SECOND DINNER 2300 THEN SETTLED TO TRY TO SLEEP. HE HAS BEEN COOPERATIVE WITH CARES OVER SHIFT. B/P HAS BEEN STABLE OFF THE GTT SINCE DAYSHIFT 1430 11/09/23
--- NOTE | 2023-11-10 07:15 | NUR ---
report received. PATIENT IS SLEEPIN IN BED. NO DISTRESS NOTED.
[2023-11-10] MEDS ORDERED: ROPINIROLE HCL 0.25 MG TAB ONE (08:08)
--- NOTE | 2023-11-10 08:10 | NUR ---
PATIENT IS AWAKE. READY TO EAT BREAKFAST. ACCUCHECK 194. INSULIN 3 UNITS SQ GIVEN. ASSESSMENT DONE. C/O LEFT SIDE RIB PAIN, RATES 3/10. NO TREATMENT GIVEN. GUZMAN CATH PATENT WITH CLEAR YELLOW URINE NOTED. O2 AT 4 L NC ON.
[2023-11-10 08:14] VITALS: BP 122/76
[2023-11-10] MEDS ORDERED: AZITHROMYCIN 250 MG TAB PO SCH (09:00)
[2023-11-10] MEDS ORDERED: CEFTRIAXONE/SODIUM CHLORIDE 2 GM/100 ML PIGGYBACK IV SCH (09:00)
[2023-11-10] MEDS ORDERED: AMIODARONE HCL 200 MG TAB PO SCH (09:01)
[2023-11-10] MEDS ORDERED: METOPROLOL SUCCINATE 100 MG TABCR PO SCH (09:04)
--- NOTE | 2023-11-10 09:30 | NUR ---
discharge orders received. DANETTE BUTLER'D. NO BLEEDING NOTED AT SITE. DRESSING APPLIED.
--- NOTE | 2023-11-10 09:50 | NUR ---
GUZMAN CATH DC'D AND EMPTIED FOR 450 ML OF CLEAR YELLOW URINE. PATIENT UP TO CHAIR WITH ASSIST, USING WALKER. FAIRLY STABLE ON FEET. DENIES DIZZINESS.
[2023-11-10] MEDS ORDERED: CEFADROXIL1 GM PO (10:36)
--- NOTE | 2023-11-10 11:00 | NUR ---
CONTINUES TO SIT IN CHAIR. PATIENT STOOD AND USED WALKER, HE THEN TOOK AT COUPLE OF MARCHING STEPS. TOLERATED WELL. PATIENT STATES HE FEELS STRONG ON HIS LEGS HE DOES AT HOME. DENIES INCREASE SHORTNESS OF BREATH, DENIES DIZZINESS. O2 SAT 90 ON 4 L NC.
--- NOTE | 2023-11-10 11:46 | NUR ---
PATIENT CONCERNED ABOUT DISCHARGE, DISCUSSED RIGHT TO APPEAL WITH MEDICARE, REFERENCE TO MEDICARE LETTER. PATIENT IS CURRENTLY ON HOME OXYGEN REQUIREMENT. HE IS ALSO AT [place] FOR AMBULATION. DISCUSSED WITH PATIENT WAYS TO STAY OUT OF THE HOSPITAL AND LUNG CARE. MASKS PROVIDED TO PATIENT. PATIENT ALSO STATES HE WOULD LIKE TO RETURN TO [facility] FOR PCP. CALLED CLINIC, PATIENT HAS BEEN DISCHARGED FROM CLINIC DUE TO ERATIC BEHAVIORS AND IS UNABLE TO RETURN. PATIENT NOTIFIED UNABLE TO OBTAIN HIM AN APPOINTMENT AND TO KEEP HIS APPOINTMENT WITH DOCTOR OF OSTEOPATHY AT [facility]. VERBALIZES UNDERSTANDING, HOWEVER, HE IS UPSET AND VOICES MULTIPLE TIMES HE IS THINKING ABOUT SUING THE CLINIC FOR REFUSING HIM A PATIENT. REQUESTS NUMBER FOR ADMINISTRATION. PHONE NUMBER FOR HOSPITAL PRESIDENT PROVIDED. PATIENT DENIES ANYTHING ELSE. VOICES HE BELIEVES HE IS OK TO GO HOME. PLAN TO DC TODAY. DENIES OTHER CASE MANAGEMENT NEEDS.
--- NOTE | 2023-11-10 11:55 | NUR ---
DISCHARGE INSTRUCTIONS GIVEN WITH PATIENT UNDERSTANDING. SL TO RFA DC'D.
--- NOTE | 2023-11-10 12:00 | NUR ---
READY FOR LUNCH. ACCUCHECK 294. INSULIN 7 UNITS SQ GIVEN. TWO MARCHING STEPS USEING WALKER DONE PRIOR TO EATING LUNCH, THEN SAT DOWN IN CHAIR FOR LUNCH. NO CHANGES. DISCHARGE PLANNING HAS BEEN HERE TO SEE PATIENT. COLORECTAL SURGEON GIVING PATIENT INFORMATION.
--- NOTE | 2023-11-10 12:15 | NUR ---
SITTING UP IN BED EATING LUNCH. PATIENT IN ROOM. PATIENT DENIES SHORTNESS OF BREATH. WILL BE DISCHARGED AFTER LUNCH.
[2023-11-10 12:26] VITALS: BP 100/68
--- NOTE | 2023-11-10 13:07 | NUR ---
DISCHARGED TO HOME. ESCORTED OUT VIA . CARE RIDE TO PATIENT AND PATIENT .
[2023-11-10] MEDS ORDERED: CEFADROXIL500 MG PO (23:33)
[2023-11-11] MEDS ORDERED: PULMOZYME1 MG/1 ML INH (03:21)
[2023-11-11] MEDS ORDERED: BENZONATATE100 MG PO (03:21)
--- NOTE | 2023-11-11 12:55 | EKG ---
[facility] [address] [facility] [place] [address] Signed Atrial flutter with variable AV block with premature ventricular or aberrantly conducted complexes Left axis deviation Abnormal ECG When compared with ECG of 23-OCT-2023 17:51, No significant change was found Confirmed by Minnie Resendez MD ([id number]) on 11/11/2023 12:54:49 PM Electronically Signed By: MINNIE RESENDEZ 11/11/23 1255 PATIENT NAME: DATKEVIN SR Electrocardiogram DATE OF : 46 PHYSICIAN: MINNIE RESENDEZ REPORT #: [id number] REPORT IS CONFIDENTIAL AND NOT TO BE RELEASED WITHOUT AUTHORIZATION
== END 2023-11-10 13:07 | disposition home or self-care (01) | DRG 871 ==
LOC: ED 01:27 → CCU 05:51
PROVIDERS: Family Medicine; ADMIT Internal Medicine; ATTEND Internal Medicine
PROC: 02HV33Z Insertion of Infusion Device into Superior Vena Cava, Percutaneous Approach (ICD-10-PCS; principal; 2023-11-09)
PROC: 3E03329 Introduction of Other Anti-infective into Peripheral Vein, Percutaneous Approach (ICD-10-PCS; 2023-11-09)
PROC: 3E033XZ Introduction of Vasopressor into Peripheral Vein, Percutaneous Approach (ICD-10-PCS; 2023-11-09)
DX: A41.9 Sepsis, unspecified organism (principal); J18.9 Pneumonia, unspecified organism; J96.21 Acute and chronic respiratory failure with hypoxia; R65.21 Severe sepsis with septic shock; J44.0 Chronic obstructive pulmonary disease with (acute) lower respiratory infection; I48.20 Chronic atrial fibrillation, unspecified; I50.9 Heart failure, unspecified; I11.0 Hypertensive heart disease with heart failure; F17.210 Nicotine dependence, cigarettes, uncomplicated; E11.9 Type 2 diabetes mellitus without complications; Z99.81 Dependence on supplemental oxygen; I25.2 Old myocardial infarction; Z90.49 Acquired absence of other specified parts of digestive tract; Z98.890 Other specified postprocedural states; Z90.89 Acquired absence of other organs; Z95.5 Presence of coronary angioplasty implant and graft; Z88.8 Allergy status to other drugs, medicaments and biological substances; Z88.1 Allergy status to other antibiotic agents; Z79.01 Long term (current) use of anticoagulants; Z79.899 Other long term (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; Z79.51 Long term (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 of inhaled steroids; Z79.2 Long term (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 of antibiotics
CPT/HCPCS: 36415; 36556; 51702; 71045; 71260; 74177; 80053; 81003; 82803; 83605; 83735; 83880; 84484; 85025; 87040; 87502; 93005; 93010; 94640; 99285-25; A9270; J0456; J0696; J1815; J2250; J2919; J7040; J7121; Q0177; Q9967; U0002

== ENCOUNTER 2023-11-20 22:11 | Emergency (ER) | payer MEDICARE ==
[~2023-11-20] VITALS: Ht 175.3 cm; Wt 82.7 kg
[2023-11-20] MEDS ORDERED: ALBUTEROL/IPRATROPIUM 3 ML NEB INH ONE (22:30)
[2023-11-20] MEDS ORDERED: methylPREDNISolone SOD SUCC 125 MG/2 ML VIAL IV ONE (22:45)
[2023-11-20 22:49] LABS: MCH 29.9 (27-36); MCV 92.8 fl (81-99)
[2023-11-20 22:52] LABS: BASOPHILS 0.9 % (0-2); EOSINOPHILS 0.2 % (0-6); HEMOGLOBIN 13.5 g/dL (12.0-18.0); LYMPHOCYTES 12.3 % (24-44); MCHC 32.2 g/dl (30-36); MONOCYTES 6.9 % (0-12); NEUTROPHILS 79.7 % (39-80); PLATELET COUNT 303 K/uL (140-440); RBC 4.52 M/ul (4.3-5.7); RDW 16.2 (10.5-15.0)
[2023-11-20 23:08] LABS: ALBUMIN 2.9 g/dL (3.4-5.0); ALBUMIN/GLOBULIN RATIO 0.78 (1.1-2.4); ANION GAP 13.1 (7-21); BILIRUBIN, TOTAL 0.1 ng/dL (0.2-1.0); BUN/CREATININE RATIO 16.21 (6.0-28.6); CALCIUM 8.9 mg/dL (8.5-10.1); CREATININE, SERUM 1.11 mg/dL (0.70-1.30); POTASSIUM 5.1 mmol/L (3.5-5.1); PROTEIN, TOTAL 6.6 g/dL (6.4-8.2)
[2023-11-21 01:13] VITALS: BP 112/72
--- NOTE | 2023-11-21 13:50 | EKG ---
[facility] [address] [facility] [place] [address] Signed Atrial flutter with variable AV block Left axis deviation ST \T\ T wave abnormality, consider lateral ischemia Abnormal ECG When compared with ECG of 11-NOV-2023 00:43, Criteria for Anterior infarct are no longer present Criteria for Inferior infarct are no longer present Confirmed by Zita Oconnor ([id number]) on 11/21/2023 1:50:37 PM Electronically Signed By: ZITA OCONNOR MD 11/21/23 1350 PATIENT NAME: KEVIN DAUGHERTY Electrocardiogram DATE OF : 46 PHYSICIAN: ZITA OCONNOR MD REPORT #: [id number] REPORT IS CONFIDENTIAL AND NOT TO BE RELEASED WITHOUT AUTHORIZATION
== END 2023-11-21 01:22 | disposition home or self-care (01) ==
LOC: ED 22:11
PROVIDERS: Internal Medicine
DX: J44.1 Chronic obstructive pulmonary disease with (acute) exacerbation (principal); I11.0 Hypertensive heart disease with heart failure; E11.9 Type 2 diabetes mellitus without complications; I50.9 Heart failure, unspecified; F17.200 Nicotine dependence, unspecified, uncomplicated; Z88.1 Allergy status to other antibiotic agents; Z88.8 Allergy status to other drugs, medicaments and biological substances; Z79.899 Other long term (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; Z79.52 Long term (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 of systemic steroids
CPT/HCPCS: 36415; 71045; 80053; 83880; 84484; 85025; 93005; 93010; 94640; 96374; 99285-25; J2919

== ENCOUNTER 2023-12-05 17:18 | Emergency (ER) | payer MEDICARE ==
[~2023-12-05] VITALS: Ht 175.3 cm; Wt 79.0 kg
[~2023-12-05 17:18] MED LIST changes: +CEFADROXIL1 GM PO; +CEFADROXIL500 MG PO; +PULMOZYME1 MG/1 ML INH; +SPIRONOLACTONE25 MG PO
[2023-12-05] MEDS ORDERED: ALBUTEROL/IPRATROPIUM 3 ML NEB ONE (17:29)
[2023-12-05] MEDS ORDERED: methylPREDNISolone SOD SUCC 125 MG/2 ML VIAL IV ONE (17:45)
[2023-12-05] MEDS ORDERED: SODIUM CHLORIDE 0.9% 1,000 ML IV ONE (17:45)
[2023-12-05] MEDS ORDERED: CEFTRIAXONE/SODIUM CHLORIDE 2 GM/100 ML PIGGYBACK IV ONE (17:45)
[2023-12-05] MEDS ORDERED: ALBUTEROL/IPRATROPIUM 3 ML NEB INH ONE (17:45)
[2023-12-05 17:58] LABS: BASOPHILS 0.3 % (0-2); EOSINOPHILS 0.3 % (0-6); HEMATOCRIT 40.4 % (35.0-50.0); HEMOGLOBIN 13.2 g/dL (12.0-18.0); LYMPHOCYTES 6.8 % (24-44); MCH 29.7 (27-36); MCHC 32.7 g/dl (30-36); MCV 90.9 fl (81-99); MONOCYTES 4.8 % (0-12); NEUTROPHILS 87.8 % (39-80); PLATELET COUNT 400 K/uL (140-440); RBC 4.45 M/ul (4.3-5.7); RDW 16.1 (10.5-15.0)
[2023-12-05] MEDS ORDERED: AZITHROMYCIN/DEXTROSE 500 MG/250 ML BAG IV ONE (18:00)
[2023-12-05 18:13] LABS: INR 1.01 (0.80-1.30); PROTIME 12.9 Sec (11.2-14.2)
[2023-12-05 18:16] LABS: PARTIAL THROMBOPLASTIN TIME 28.3 Sec (22.9-41.3)
[2023-12-05] MEDS ORDERED: ALBUTEROL SULFATE 0.5% 2.5 MG/0.5 ML VIAL ONE (18:17)
[2023-12-05 18:18] LABS: LACTIC ACID, BLOOD 3.5 mmol/L (0.4-2.0)
[2023-12-05 18:27] LABS: ALBUMIN 2.8 g/dL (3.4-5.0); ALBUMIN/GLOBULIN RATIO 0.74 (1.1-2.4); ANION GAP 12.3 (7-21); BILIRUBIN, TOTAL 0.3 ng/dL (0.2-1.0); BUN/CREATININE RATIO 13.97 (6.0-28.6); CALCIUM 8.7 mg/dL (8.5-10.1); CREATININE, SERUM 1.36 mg/dL (0.70-1.30); MAGNESIUM 1.8 mg/dL (1.8-2.4); POTASSIUM 5.3 mmol/L (3.5-5.1); PROTEIN, TOTAL 6.6 g/dL (6.4-8.2)
[2023-12-05] MEDS ORDERED: ALBUTEROL SULFATE 0.042% 1.25 MG/3 ML VIAL INH ONE (18:30)
[2023-12-05 18:58] LABS: INFLUENZA B NAA NEGATIVE (NEGATIVE); RESPIRATORY SYNCYTIAL VIR NAA NEGATIVE (NEGATIVE)
[2023-12-05 19:41] LABS: BILIRUBIN, URINE NEGATIVE (negative); BLOOD/HGB, URINE NEGATIVE (Negative); KETONE, URINE NEGATIVE (Negative); LEUK ESTERASE, URINE SMALL (negative); NITRITE, URINE NEGATIVE (negative)
[2023-12-05 19:53] LABS: BACTERIA, URINE 1+ /hpf (negative); CASTS, URINE NONE SEEN \\lpf; COLLECTION TYPE, URINE CLEAN CATCH; CRYSTALS, URINE NONE SEEN (0-1+); EPITHELIAL CELLS, URINE SQUAMOUS 1+ /lpf (0-1+); RED BLOOD CELLS, URINE 0-1 /hpf (0-5); REFLEX CULTURE, URINE Yes (No); WHITE BLOOD CELLS, URINE 21-40 /HPF (0-5)
[2023-12-05 20:41] LABS: LACTIC ACID, BLOOD 2.6 mmol/L (0.4-2.0)
[2023-12-05] MEDS ORDERED: NICOTINE PATCH1 EACH TD (21:00)
[2023-12-05 21:37] VITALS: BP 87/67
--- NOTE | 2023-12-07 13:15 | EKG ---
[facility] [address] [facility] [place] [address] Signed Sinus tachycardia Left axis deviation Nonspecific intraventricular conduction delay Abnormal ECG When compared with ECG of 20-NOV-2023 22:27, Sinus rhythm has replaced Atrial flutter ST elevation now present in Inferior leads ST no longer depressed in Lateral leads Nonspecific T wave abnormality no longer evident in Inferior leads T wave inversion no longer evident in Anterolateral leads Confirmed by Roslyn Resendez MD ([id number]) on 12/07/2023 1:15:09 PM Electronically Signed By: ROSLYN RESENDEZ 12/07/23 1315 PATIENT NAME: KEVIN DAUGHERTY Electrocardiogram DATE OF : 46 PHYSICIAN: ROSLYN RESENDEZ REPORT #: [id number] REPORT IS CONFIDENTIAL AND NOT TO BE RELEASED WITHOUT AUTHORIZATION
== END 2023-12-05 21:40 | disposition home or self-care (01) ==
LOC: ED 17:18
PROVIDERS: Emergency Medicine
DX: I11.0 Hypertensive heart disease with heart failure (principal); I50.9 Heart failure, unspecified; J44.1 Chronic obstructive pulmonary disease with (acute) exacerbation; A31.0 Pulmonary mycobacterial infection; E11.9 Type 2 diabetes mellitus without complications; I25.2 Old myocardial infarction; F17.200 Nicotine dependence, unspecified, uncomplicated; Z95.5 Presence of coronary angioplasty implant and graft; Z88.1 Allergy status to other antibiotic agents; Z88.8 Allergy status to other drugs, medicaments and biological substances; Z79.52 Long term (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 of systemic steroids; Z79.899 Other long term (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; Z79.01 Long term (current) use of anticoagulants; Z11.52 Encounter for screening for COVID-19
CPT/HCPCS: 36415; 71045; 80053; 81001; 83605; 83735; 83880; 84484; 85025; 85610; 85730; 87040; 87077; 87088; 87186; 87502; 93005; 93010; 94640; 96365; 96368; 96375; 99285-25; J0456; J0696; J2919; J7030; U0002

== ENCOUNTER 2023-12-13 19:48 | Emergency (ER) | payer MEDICARE ==
[~2023-12-13] VITALS: Ht 175.3 cm; Wt 84.0 kg
[~2023-12-13 19:48] MED LIST changes: +NICOTINE PATCH1 EACH TD
[2023-12-13] MEDS ORDERED: ALBUTEROL/IPRATROPIUM 3 ML NEB INH PRN (20:45)
[2023-12-13] MEDS ORDERED: methylPREDNISolone SOD SUCC 125 MG/2 ML VIAL IV ONE (20:45)
[2023-12-13 21:01] LABS: BASOPHILS 0.7 % (0-2); EOSINOPHILS 0.3 % (0-6); HEMATOCRIT 41.5 % (35.0-50.0); LYMPHOCYTES 15.3 % (24-44); MCH 29.1 (27-36); MCHC 31.4 g/dl (30-36); MCV 92.6 fl (81-99); MONOCYTES 8.1 % (0-12); NEUTROPHILS 75.6 % (39-80); PLATELET COUNT 367 K/uL (140-440); RBC 4.48 M/ul (4.3-5.7); RDW 16.4 (10.5-15.0)
[2023-12-13 21:23] LABS: ALBUMIN/GLOBULIN RATIO 0.77 (1.1-2.4); BILIRUBIN, TOTAL 0.2 ng/dL (0.2-1.0); BUN/CREATININE RATIO 16.96 (6.0-28.6); CREATININE, SERUM 1.12 mg/dL (0.70-1.30); MAGNESIUM 1.8 mg/dL (1.8-2.4); PROTEIN, TOTAL 6.9 g/dL (6.4-8.2)
[2023-12-13] MEDS ORDERED: ROPINIROLE HCL 1 MG TAB PO ONE (22:15)
[2023-12-13] MEDS ORDERED: ALBUTEROL/IPRATROPIUM 3 ML NEB INH ONE (23:45)
[2023-12-14 00:13] VITALS: BP 121/68
--- NOTE | 2023-12-14 21:32 | EKG ---
[facility] [address] [place] [address] Signed Sinus rhythm with marked sinus arrhythmia Left axis deviation Nonspecific intraventricular conduction delay Abnormal ECG When compared with ECG of 05-DEC-2023 17:35, Vent. rate has decreased BY 44 BPM Confirmed by Rafaela Hampton MD () on 12/14/2023 9:32:22 PM Electronically Signed By: RAFAELA HAMPTON MD 12/14/232131 PATIENT NAME: DAUGHERTYKEVIN Electrocardiogram DATE OF : 46 PHYSICIAN: RAFAELA HAMPTON MD REPORT #: [id number] REPORT IS CONFIDENTIAL AND NOT TO BE RELEASED WITHOUT AUTHORIZATION
== END 2023-12-14 00:12 | disposition home or self-care (01) ==
LOC: ED 19:48
PROVIDERS: Internal Medicine
DX: J44.1 Chronic obstructive pulmonary disease with (acute) exacerbation (principal); I11.0 Hypertensive heart disease with heart failure; I50.9 Heart failure, unspecified; E11.9 Type 2 diabetes mellitus without complications; I25.2 Old myocardial infarction; F17.200 Nicotine dependence, unspecified, uncomplicated; Z79.01 Long term (current) use of anticoagulants; Z99.81 Dependence on supplemental oxygen; Z88.8 Allergy status to other drugs, medicaments and biological substances; Z79.899 Other long term (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
CPT/HCPCS: 36415; 71045; 80053; 83735; 83880; 84484; 85025; 93005; 93010; 94640; 96374; 99285-25; J2919

== ENCOUNTER 2023-12-25 21:28 | Emergency (ER) | payer MEDICARE ==
[~2023-12-25] VITALS: Ht 175.3 cm; Wt 79.8 kg
[2023-12-25 22:40] VITALS: BP 117/68
== END 2023-12-25 22:40 | disposition home or self-care (01) ==
LOC: ED 21:28
DX: S61.412A Laceration without foreign body of left hand, initial encounter (principal); X58.XXXA Exposure to other specified factors, initial encounter; J44.9 Chronic obstructive pulmonary disease, unspecified; E11.9 Type 2 diabetes mellitus without complications; I25.2 Old myocardial infarction; I11.0 Hypertensive heart disease with heart failure; I50.9 Heart failure, unspecified; Z99.81 Dependence on supplemental oxygen; Z87.891 Personal history of nicotine dependence; Z95.5 Presence of coronary angioplasty implant and graft; Z88.8 Allergy status to other drugs, medicaments and biological substances; Z88.1 Allergy status to other antibiotic agents; Z79.899 Other long term (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; Z79.52 Long term (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 of systemic steroids; Z79.84 Long term (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 of oral hypoglycemic drugs; Z79.01 Long term (current) use of anticoagulants
CPT/HCPCS: 99282

== ENCOUNTER 2023-12-30 16:38 | Emergency (ER) | payer MEDICARE ==
[~2023-12-30] VITALS: Ht 175.3 cm; Wt 89.5 kg
[2023-12-30] MEDS ORDERED: ALBUTEROL/IPRATROPIUM 3 ML NEB INH PRN (18:00)
[2023-12-30 18:15] LABS: BASOPHILS 0.6 % (0-2); EOSINOPHILS 0.3 % (0-6); HEMATOCRIT 41.4 % (35.0-50.0); HEMOGLOBIN 13.5 g/dL (12.0-18.0); LYMPHOCYTES 7.4 % (24-44); MCH 29.2 (27-36); MCHC 32.6 g/dl (30-36); MCV 89.7 fl (81-99); MONOCYTES 6.1 % (0-12); NEUTROPHILS 85.6 % (39-80); PLATELET COUNT 327 K/uL (140-440); RBC 4.61 M/ul (4.3-5.7); RDW 16.5 (10.5-15.0)
[2023-12-30 18:35] LABS: ALBUMIN 2.9 g/dL (3.4-5.0); ALBUMIN/GLOBULIN RATIO 0.73 (1.1-2.4); ANION GAP 9.6 (7-21); BILIRUBIN, TOTAL 0.2 ng/dL (0.2-1.0); BUN/CREATININE RATIO 15.7 (6.0-28.6); CALCIUM 8.7 mg/dL (8.5-10.1); CREATININE, SERUM 1.21 mg/dL (0.70-1.30); MAGNESIUM 2.3 mg/dL (1.8-2.4); POTASSIUM 5.6 mmol/L (3.5-5.1); PROTEIN, TOTAL 6.9 g/dL (6.4-8.2)
[2023-12-30 19:59] VITALS: BP 116/47
--- NOTE | 2023-12-30 22:05 | EKG ---
[facility] [address] [place] [address] Signed Sinus tachycardia with short AK Left axis deviation Nonspecific intraventricular block Abnormal ECG When compared with ECG of 22-DEC-2023 18:40, AK interval has decreased Confirmed by Rafaela Hampton MD () on 12/30/2023 10:05:39 PM Electronically Signed By: RAFAELA HAMPTON MD 12/30/232204 PATIENT NAME: KEVIN DAUGHERTY Electrocardiogram DATE OF : 46 PHYSICIAN: RAFAELA HAMPTON MD REPORT #: [id number] REPORT IS CONFIDENTIAL AND NOT TO BE RELEASED WITHOUT AUTHORIZATION
[2023-12-31] MEDS ORDERED: PREDNISONE20 MG PO (12:28)
== END 2023-12-30 19:59 | disposition home or self-care (01) ==
LOC: ED 16:38
PROVIDERS: Emergency Medicine
DX: I11.0 Hypertensive heart disease with heart failure (principal); I50.9 Heart failure, unspecified; J44.9 Chronic obstructive pulmonary disease, unspecified; F17.200 Nicotine dependence, unspecified, uncomplicated; Z79.02 Long term (current) use of antithrombotics/antiplatelets; Z79.51 Long term (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 of inhaled steroids; Z79.52 Long term (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 of systemic steroids; Z79.899 Other long term (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; Z88.1 Allergy status to other antibiotic agents
CPT/HCPCS: 36415; 71045; 80053; 83735; 83880; 84484; 85025; 93005; 93010; 94640; 99285-25

== ENCOUNTER 2023-12-30 23:25 | Emergency (ER) | payer MEDICARE ==
[~2023-12-30] VITALS: Ht 175.3 cm; Wt 86.0 kg
[2023-12-31] MEDS ORDERED: ALBUTEROL SULFATE 0.5% 2.5 MG/0.5 ML VIAL INH ONE (00:30)
[2023-12-31] MEDS ORDERED: IPRATROPIUM BROMIDE 2.5 ML VIAL INH ONE (00:30)
[2023-12-31] MEDS ORDERED: methylPREDNISolone SOD SUCC 125 MG/2 ML VIAL IV ONE (00:30)
[2023-12-31] MEDS ORDERED: FUROSEMIDE 40 MG/4 ML VIAL IV ONE (00:30)
[2023-12-31] MEDS ORDERED: ROPINIROLE HCL 0.25 MG TAB PO ONE (02:45)
[2023-12-31 06:00] VITALS: BP 115/75
[2023-12-31] MEDS ORDERED: methylPREDNISolone 4 MG HOME.PACK PO ONE (06:00)
[2023-12-31] MEDS ORDERED: PREDNISONE20 MG PO (12:28)
== END 2023-12-31 06:00 | disposition home or self-care (01) ==
LOC: ED 23:25
DX: J44.1 Chronic obstructive pulmonary disease with (acute) exacerbation (principal); I11.0 Hypertensive heart disease with heart failure; I50.9 Heart failure, unspecified; I25.2 Old myocardial infarction; E11.9 Type 2 diabetes mellitus without complications; F17.200 Nicotine dependence, unspecified, uncomplicated; Z99.81 Dependence on supplemental oxygen; Z88.1 Allergy status to other antibiotic agents; Z88.8 Allergy status to other drugs, medicaments and biological substances; Z79.899 Other long term (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; Z79.01 Long term (current) use of anticoagulants; Z79.84 Long term (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 of oral hypoglycemic drugs
CPT/HCPCS: 94644; J1940; J2919

== ENCOUNTER 2023-12-31 11:01 | Emergency (ER) | payer MEDICARE ==
[~2023-12-31] VITALS: Ht 175.3 cm; Wt 81.6 kg
[2023-12-31] MEDS ORDERED: methylPREDNISolone SOD SUCC 125 MG/2 ML VIAL IV ONE (11:45)
[2023-12-31] MEDS ORDERED: SODIUM CHLORIDE 0.9% 500 ML IV ONE (11:45)
[2023-12-31] MEDS ORDERED: PREDNISONE20 MG PO (12:28)
[2023-12-31 12:50] VITALS: BP 102/75
--- NOTE | 2023-12-31 22:20 | EKG ---
[facility] [address] [place] [address] Signed Wide QRS rhythm Left axis deviation Nonspecific intraventricular block Abnormal ECG When compared with ECG of 30-DEC-2023 18:01, No significant change was found Confirmed by Rafaela Hampton MD () on 12/31/2023 10:20:07 PM Electronically Signed By: RAFAELA HAMPTON MD 12/31/232219 PATIENT NAME: KEVIN DAUGHERTY Electrocardiogram DATE OF : 46 PHYSICIAN: RAFAELA HAMPTON MD REPORT #: [id number] REPORT IS CONFIDENTIAL AND NOT TO BE RELEASED WITHOUT AUTHORIZATION
== END 2023-12-31 12:50 | disposition home or self-care (01) ==
LOC: ED 11:01
DX: J44.9 Chronic obstructive pulmonary disease, unspecified (principal); I11.0 Hypertensive heart disease with heart failure; I50.9 Heart failure, unspecified; I25.2 Old myocardial infarction; E11.9 Type 2 diabetes mellitus without complications; F17.200 Nicotine dependence, unspecified, uncomplicated; Z99.81 Dependence on supplemental oxygen; Z95.5 Presence of coronary angioplasty implant and graft; Z88.1 Allergy status to other antibiotic agents; Z88.8 Allergy status to other drugs, medicaments and biological substances; Z79.01 Long term (current) use of anticoagulants; Z79.52 Long term (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 of systemic steroids; Z79.84 Long term (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 of oral hypoglycemic drugs; Z79.899 Other long term (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
CPT/HCPCS: 71045; 93005; 93010; 96374; 99285-25; J2919; J7040

== ENCOUNTER 2024-01-05 16:55 | Inpatient (IN) | payer MEDICARE ==
[2024-01-05] VITALS (8 sets, daily range): BP systolic 80–153; BP diastolic 47–141
[~2024-01-05] VITALS: Ht 175.3 cm; Wt 97.9 kg
[~2024-01-05 16:55] MED LIST changes: -ZITHROMAX500 MG PO
[2024-01-05] MEDS ORDERED: methylPREDNISolone SOD SUCC 125 MG/2 ML VIAL IV ONE (17:15)
[2024-01-05] MEDS ORDERED: ALBUTEROL SULFATE 0.5% 2.5 MG/0.5 ML VIAL INH ONE (17:15)
[2024-01-05] MEDS ORDERED: IPRATROPIUM BROMIDE 2.5 ML VIAL INH ONE (17:15)
[2024-01-05] MEDS ORDERED: SODIUM CHLORIDE 0.9% 1,000 ML IV PRN ×2 (17:15→17:30)
[2024-01-05 17:16] LABS: BASOPHILS 0.5 % (0-2); EOSINOPHILS 0.1 % (0-6); HEMATOCRIT 42.2 % (35.0-50.0); HEMOGLOBIN 13.3 g/dL (12.0-18.0); LYMPHOCYTES 5.8 % (24-44); MCH 28.3 (27-36); MCHC 31.4 g/dl (30-36); MCV 89.9 fl (81-99); MONOCYTES 4.4 % (0-12); NEUTROPHILS 89.2 % (39-80); PLATELET COUNT 350 K/uL (140-440); RDW 16.8 (10.5-15.0)
[2024-01-05 17:28] LABS: INR 1.05 (0.80-1.30); PARTIAL THROMBOPLASTIN TIME 27.8 Sec (22.9-41.3)
[2024-01-05] MEDS ORDERED: AZITHROMYCIN/DEXTROSE 500 MG/250 ML BAG IV ONE (17:30)
[2024-01-05] MEDS ORDERED: CEFTRIAXONE/SODIUM CHLORIDE 2 GM/100 ML PIGGYBACK IV ONE (17:30)
[2024-01-05 17:39] LABS: ALBUMIN 2.7 g/dL (3.4-5.0); ALBUMIN/GLOBULIN RATIO 0.64 (1.1-2.4); ANION GAP 11.3 (7-21); BILIRUBIN, TOTAL 0.3 ng/dL (0.2-1.0); BUN/CREATININE RATIO 17.21 (6.0-28.6); CALCIUM 8.4 mg/dL (8.5-10.1); CREATININE, SERUM 1.51 mg/dL (0.70-1.30); POTASSIUM 5.3 mmol/L (3.5-5.1); PROTEIN, TOTAL 6.9 g/dL (6.4-8.2)
--- NOTE | 2024-01-05 17:48 | EKG ---
[facility] [address] [facility] [place] [address] Signed Atrial flutter with variable AV block Left axis deviation Nonspecific intraventricular conduction delay Abnormal ECG When compared with ECG of 31-DEC-2023 11:09, Atrial flutter has replaced Wide QRS rhythm Confirmed by Lisa Ingram MD ([id number]) on 01/05/2024 5:48:45 PM Electronically Signed By: LISA INGRAM DO 01/05/24 1748 PATIENT NAME: KEVIN DAUGHERTY Electrocardiogram DATE OF : 46 PHYSICIAN: LISA INGRAM DO REPORT #: [id number] REPORT IS CONFIDENTIAL AND NOT TO BE RELEASED WITHOUT AUTHORIZATION
[2024-01-05 17:54] LABS: LACTIC ACID, BLOOD 1.9 mmol/L (0.4-2.0)
[2024-01-05 18:09] LABS: INFLUENZA B NAA NEGATIVE (NEGATIVE); RESPIRATORY SYNCYTIAL VIR NAA NEGATIVE (NEGATIVE)
[2024-01-05] MEDS ORDERED: NOREPINEPHRINE BITARTRATE IV SCH (18:15)
[2024-01-05] MEDS ORDERED: LORazepam 2 MG/ML VIAL IV ONE (18:15)
--- NOTE | 2024-01-05 18:55 | NUR ---
ED DR REQUESTING IV ACCESS, DR VERBALIZED OK FOR MIDLINE PLACEMENT. VERBAL CONSENT OBTAINED FROM PT. RIGHT BASILIC HAS IV AND LEFT BASILIC IDENTIFIED AND MEASURED. 18 G CATHETER WILL OCCUPY 25% OF VEIN. VEIN ACCESSED WITH 18 G, 10 CM MIDLINE FOLLOWING STERILE PROCEDURE. NON PULSATILE, DARK BLOOD RETURNED. FLUSHED WITH 10 ML NS. ARM MEASURED AT 31 CM CIRCUMFRENCE, NO CM EXPOSED. MIDLINE SECURED AND REPORT ZAN SANCHES.
[2024-01-05 19:01] LABS: BILIRUBIN, URINE NEGATIVE (negative); BLOOD/HGB, URINE TRACE-I (Negative); KETONE, URINE NEGATIVE (Negative); LEUK ESTERASE, URINE TRACE (negative); NITRITE, URINE NEGATIVE (negative); PH, URINE 5.5 (5-7)
[2024-01-05 19:09] LABS: EPITHELIAL CELLS, URINE SQUAMOUS 2+ /lpf (0-1+); RED BLOOD CELLS, URINE 0-1 /hpf (0-5); WHITE BLOOD CELLS, URINE >50 /HPF (0-5)
[2024-01-05 19:10] LABS: CRYSTALS, URINE NONE SEEN (0-1+)
[2024-01-05 19:11] LABS: CASTS, URINE WBC CAST 1+ \\lpf; COLLECTION TYPE, URINE CLEAN CATCH
[2024-01-05 19:13] LABS: BACTERIA, URINE RARE /hpf (negative); REFLEX CULTURE, URINE No (No)
[2024-01-05] MEDS ORDERED: ondansetron HCL 4 MG/2 ML VIAL IV PRN (19:30)
[2024-01-05] MEDS ORDERED: LACTATED RINGER'S 1,000 ML IV SCH (19:30)
[2024-01-05] MEDS ORDERED: bisacodyL 10 MG SUPP PR PRN (19:30)
[2024-01-05] MEDS ORDERED: PROCHLORPERAZINE EDISYLATE 10 MG/2 ML VIAL IV PRN (19:30)
[2024-01-05] MEDS ORDERED: ACETAMINOPHEN 500 MG TAB PO PRN (19:30)
[2024-01-05] MEDS ORDERED: ALBUTEROL/IPRATROPIUM 3 ML NEB INH SCH (20:00)
[2024-01-05] MEDS ORDERED: ALBUTEROL SULFATE 0.083% 3 ML VIAL INH PRN (20:00)
--- NOTE | 2024-01-05 20:00 | NUR ---
PT ADMITTED TO ROOM 129 FROM ED. PT MOVED TO BED FROM [facility] WITH SLIDER SHEET. PT IS AWAKE AND ALERT AND ORIENTED. HE ARRIVES ON 4L/NC WITH SPO2 92%, RT IN ROOM TO DO NEB TX REQUESTED BY PT. BREATHING IS SLIGHTLY LABORED AT REST, PT STATES THAT IT FEELS LIKE HE IS AT HIS BASELINE AT THIS POINT. PT ARRIVES WITH LEVOPHED DRIP INFUSING AT 4 MCG/MIN. HIS BP ON ARRIVAL TO UNIT WAS DIFFICULT TO OBTAIN ON MONITOR. MONITOR WAS READING 220/200'S-LEVOPHED TURNED OFF AT THIS TIME, MANUAL WAS DONE- 70/38. MD IN TO EVALUATE PT WHO ALSO GOT A MANUAL BP OF 80/50, THEN BP CUFF WAS PUT ON LEG WHICH SHOWED CLOSER CORRELATION WITH MANUALS. WILL KEEP LEVOPHED ON STANDBY FOR NOW. PT HAS A STRONG PULSE, HR 100'S AFIB. SANDWICH BOX GIVEN PER REQUEST. LUNGS HAVE COARSE SOUNDS AND WHEEZES THROUGHOUT.
[2024-01-05] MEDS ORDERED: HEParin SOD (PORCINE) 5,000 UNIT/ML SDV SUB-Q SCH (21:00)
[2024-01-05] MEDS ORDERED: INSULIN LISPRO 100 UNIT/ML ML SUB-Q SCH (21:00)
[2024-01-05] MEDS ORDERED: MELATONIN 3 MG TAB PO PRN (21:00)
[2024-01-05] MEDS ORDERED: IBLOOD GLUCOSE TEST STRIP 1 EA TEST VI SCH (21:00)
--- NOTE | 2024-01-05 21:31 | NUR ---
AND SON WERE IN TO SEE PT, LEAVING NOW FOR THE NIGHT. PT IS SITTING UP IN BED EATING SANDWICH BOX WITH 4L/NC IN PLACE AND SPO2 90%.
[2024-01-05] MEDS ORDERED: NICOTINE POLACRILEX 4 MG LOZENGE BUCCAL PRN (22:15)
[2024-01-05] MEDS ORDERED: APIXABAN 5 MG TAB PO SCH (22:27)
[2024-01-05] MEDS ORDERED: carBAMazepine 200 MG TAB PO SCH (22:27)
[2024-01-05] MEDS ORDERED: FAMOTIDINE 20 MG TAB PO SCH (22:28)
[2024-01-05] MEDS ORDERED: ATORVASTATIN 40 MG TAB PO SCH (22:30)
[2024-01-05] MEDS ORDERED: hydrOXYzine pamoate 25 MG CAP PO PRN (22:30)
[2024-01-05] MEDS ORDERED: NICOTINE 14 MG/24 HR 1 EA TDSY TD SCH (23:00)
--- NOTE | 2024-01-05 23:29 | NUR ---
IN TO GIVE PT HIS PILLS, AWAKENS EASILY, REPORTS FEELING HOT, HEAT TURNED DOWN IN THE ROOM, PT BACK TO SLEEP.
[2024-01-06] VITALS (34 sets, daily range): BP systolic 11–125; BP diastolic 32–85
--- NOTE | 2024-01-06 01:37 | NUR ---
PT CALLS TO HAVE TEMPERATURE OF ROOM TURNED UP. NO FURTHER REQUESTS.
--- NOTE | 2024-01-06 03:22 | NUR ---
PTS BP'S HAVE DROPPED, TRIED CUFF ON DIFFERENT LEGS WITH NO IMPROVEMENT. 500ML BOLUS STARTED.
--- NOTE | 2024-01-06 03:37 | NUR ---
BOLUS INFUSING, BP'S DROPPING LOWER - 78/49 (59). LEVOPHED DRIP RESTARTED AT 4MCG/MIN.
--- NOTE | 2024-01-06 04:25 | NUR ---
BOLUS COMPLETED, LEVOPHED DRIP INFUSING AT 6MCG/MIN.
[2024-01-06 05:41] LABS: BASOPHILS 0.7 % (0-2); HEMATOCRIT 34.3 % (35.0-50.0); LYMPHOCYTES 13.6 % (24-44); MCH 28.7 (27-36); MCHC 32.1 g/dl (30-36); MCV 89.4 fl (81-99); MONOCYTES 8.9 % (0-12); NEUTROPHILS 76.8 % (39-80); PLATELET COUNT 312 K/uL (140-440); RBC 3.83 M/ul (4.3-5.7); RDW 16.4 (10.5-15.0)
--- NOTE | 2024-01-06 05:47 | NUR ---
LEVOPHED DRIP TURNED OFF. PT AWAKE, COFFEE GIVEN PER REQUEST. PT ALSO REQUESTS NEB TX, RT IN TO DO ONE.
[2024-01-06 05:57] LABS: ALBUMIN 2.3 g/dL (3.4-5.0); ALBUMIN/GLOBULIN RATIO 0.68 (1.1-2.4); ANION GAP 8.6 (7-21); BILIRUBIN, TOTAL 0.1 ng/dL (0.2-1.0); BUN/CREATININE RATIO 15.44 (6.0-28.6); CREATININE, SERUM 1.23 mg/dL (0.70-1.30); POTASSIUM 4.6 mmol/L (3.5-5.1); PROTEIN, TOTAL 5.7 g/dL (6.4-8.2)
[2024-01-06] MEDS ORDERED: LACTATED RINGER'S 500 ML IV ONE (06:30)
--- NOTE | 2024-01-06 07:15 | NUR ---
REPORT RECEIVED FROM ELECTROPLATER HELPER RN YUMIKO.
--- NOTE | 2024-01-06 07:50 | NUR ---
PATIENT IS LYING IN BED AND GETTING A BREATHING TREATMENT WITH RT AT THIS TIME.
--- NOTE | 2024-01-06 08:00 | NUR ---
UR CLINICAL REVIEW: 2MN [facility] INPT MEDICARE INPT 01/05/24 @ 1938 ORDER MATCHES REG NO AUTH REQUIRED PER MEDICARE RULES PLANNED RETURN HOME WHEN STABLE.
--- NOTE | 2024-01-06 08:30 | NUR ---
PATIENT IS SITTING IN BED. PATIENT REPOSITIONED AND BOOSTED WITH VERÓNICA MORATAYA. PATIENT TOLERATED WELL. PATIENT IS SITTING UPRIGHT IN BED WITH BREAKFAST TRAY SET UP IN FRONT OF THE PATIENT. VITAL SIGNS TAKEN AND DOCUMENTED IN THE CHART. FULL ASSESSMENT COMPLETE. PATIENT IS ALERT AND ORIENTED TIMES FOUR. PATIENT IS ON THE STONE CARRIAGE OPERATOR AND GOES IN AND OUT OF A-FIB. HR IS 110 AT THIS TIME. RADIAL AND PEDAL PULSES ARE STRONG BILATERALLY. CAPILLARY REFILL IN THE UPPER AND LOWER EXTREMITIES IS GREATER THAN 3 SECONDS BILATERALLY. SENSATION IS INTACT AND PATIENT HAS NO COMPLAINTS OF NUMBNESS AND TINGLING. PATIENT IS ON 4 L NC AT THIS TIME. THIS IS THE PATIENTS BASELINE. LUNG SOUNDS ARE DIMINISHED WITH WHEEZES IN ALL LUNG WINN BILATERALLY. PATIENT WITH A HARSH AND PRODUCTIVE COUGH AT THIS TIME. PATIENT IS ON A 60 GRAM CARB DIET. BOWEL TONES ARE ACTIVE IN ALL FOUR QUADRANTS. LAST BM WAS 01/05/24. PATIENT WITH A GUZMAN CATHETER IN PLACE AND DRAINING YELLOW URINE. SKIN NOTED WITH SCATTERED BRUISING AND SCATTERED SCABS. MIDLINE IN THE L UPPER ARM FLUSHED WITH 10 ML NORMAL SALINE. LR IS INFUSING AT 100 ML/HR AT THIS TIME. IV IN LEFT HAND NO LONGER IN PLACE. RN D/C. IV IN THE RIGHT WRIST FLUSHED WITH 10 ML NORMAL SALINE AND IS SALINE LOCKED. IV IN THE RIGHT UPPER ARM HARD TO FLUSH. IV IS SALINE LOCKED. ALL IV DRESSINGS ARE CLEAN, DRY, AND INTACT. PATIENT WITH NO COMPLAINTS OF PAIN AT THIS TIME. PATIENT STATED NO FURTHER NEEDS AT THIS TIME. 0800 MEDICATIONS ADMINISTERED PER THE EMAR. CALL LIGHT AND PERSONAL BELONGINGS ARE WITHIN REACH.
[2024-01-06] MEDS ORDERED: SULFAMETHOXAZO1 EAC1 PO (08:49)
[2024-01-06] MEDS ORDERED: NICOTINE1 EAC2 TD (08:50)
[2024-01-06] MEDS ORDERED: MAGNESIUM REPLACEMENT PROTOCOL ORAL/IV PO/IV SCH (09:00)
[2024-01-06] MEDS ORDERED: ONDANSETRON ODT4 MG PO (09:00)
[2024-01-06] MEDS ORDERED: NICOTINE 14 MG/24 HR 1 EA TDSY TD SCH (09:00)
[2024-01-06] MEDS ORDERED: CLOPIDOGREL BISULFATE 75 MG TAB PO SCH (09:00)
[2024-01-06] MEDS ORDERED: FLU VACC TS2024(65UP)/MF59C/PF 1 EACH SYR IM SCH (09:00)
[2024-01-06] MEDS ORDERED: predniSONE 20 MG TAB PO SCH (09:00)
[2024-01-06] MEDS ORDERED: POTASSIUM REPLACEMENT PROTOCOL ORAL/IV PO/IV SCH (09:00)
[2024-01-06] MEDS ORDERED: ELECTROLTYTE REPLACEMEMT CCU 1 EACH EA PO/IV SCH (09:00)
--- NOTE | 2024-01-06 09:02 | NUR ---
PATIENT IS LYING ON THEIR LEFT SIDE AND GETTING AN ECHO DONE AT THIS TIME. PATIENT TOLERATING WELL.
--- NOTE | 2024-01-06 09:30 | NUR ---
0900 MEDICATIONS ADMINISTERED PER THE EMAR. IV FLUIDS DISCONTINUED. MIDLINE FLUSHED WITH 10 ML NORMAL SALINE AND IS NOW SALINE LOCKED. IV DRESSING IS CLEAN, DRY, AND INTACT. INTAKE AND OUTPUT VALUES DOCUMENTED IN THE CHART. BREAKFAST TRAY REMOVED AT THIS TIME. PATIENT GIVEN A FRESH CUP OF COFFEE AND THE TV TURNED ON PER PATIENT REQUEST. THE PHONE IS ON THE BEDSIDE TABLE. PATIENT STATED NO FURTHER NEEDS AT THIS TIME. CALL LIGHT AND PERSONAL BELONGINGS ARE WITHIN REACH.
--- NOTE | 2024-01-06 10:04 | NUR ---
PATIENT IS SITTING UPRIGHT IN BED AND SPEAKING WITH HIS ON THE PHONE. CALL LIGHT AND PERSONAL BELONGINGS ARE WITHIN REACH.
--- NOTE | 2024-01-06 10:55 | NUR ---
PATIENT AND SPOUSE IN ROOM. PATIENT ALERT AND ORIENTED. STATES HE IS STILL LIVING IN HOUSE WITH HIS , ELVA. THEY HAVE A RAMP TO GET INSIDE. HE HAS A WALKER, WHEELCHAIR, NEBULIZER AND HOME OXYGEN THROUGH [facility]. STATES HE STILL DRIVES OCCASIONALLY. HAS NO DIFFICULTY PAYING UTILITES, GETTING FOOD OR MEDICATIONS. STATES HE CANNOT THINK OF ANYTHING HE NEEDS AT HOME AT THIS TIME. INFORMED STAFF WILL CHECK BACK IN TO ENSURE NOTHING HAS CHANGED. VERBALIZES UNDERSTANDING.
--- NOTE | 2024-01-06 11:02 | NUR ---
MD ROUNDED WITH RN AND THE PATIENT AT THIS TIME. PATIENT IS SITTING ON THE COUCH AT THIS TIME. PATIENT STATED NO FURTHER NEEDS. CALL LIGHT AND PERSONAL BELONGINGS ARE WITHIN REACH.
--- NOTE | 2024-01-06 11:40 | NUR ---
PATIENT GUZMAN CATHETER REMOVED AT THIS TIME. PATIENT WITH 100 ML OF YELLOW URINE IN THE GUZMAN CATHETER BAG. LAYTON CARE COMPLETE. PATIENT WITH A NEW BRIEF IN PLACE. PATIENT BED BATH WIPE DOWN COMPLETE. PATIENT TOLERATED WELL. SHOWER CAP USED AT THIS TIME. NEW GOWN ON THE PATIENT AT THIS TIME. PATIENT IS SITTING IN THE CHAIR AND WAITING FOR LUNCH. BED LINENS CHANGED. FULL ASSESSMENT COMPLETE AND DOCUMENTED IN THE CHART. PATIENT IS SITTING ON THE COUCH IN THE PATIENTS ROOM. 1200 MEDICATIONS ADMINISTERED PER THE EMAR. PATIENT IS ALERT AND ORIENTED TIMES FOUR. PATIENT IS ON THE ENGLISH ADJUNCT FACULTY AND IN ATRIAL FIBRILATION. HR IS 11. RADIAL PULSES ARE STRONG BILATERALL. CAPILLARY REFILL IN THE UPPER EXTREMITIES IS GREATER THAN 3 SECONDS BILATERALLY. PATIENT IS ON 4 L NC AND REPORTING SOB AFTER TRANSFERRING TO THE CHAIR. SCHEDULED BREATHING TREATMENT ADMINISTERED. LUNG SOUNDS WITH CRACKLES AND WHEEZES IN THE LEFT LOWER LOBED. DIMINISHED LUNG SOUNDS AND WHEEZES HEAR OVER THE LEFT UPPER LOBE AND RIGHT LUNG WINN. IS AND ACAPELA ARE WITHIN REACH. BOWEL TONES ARE ACTIVE IN ALL FOUR QUADRANTS. PATIENT IS ON A 60 GRAM CARB DIET AND HIS LAST BBM WAS 01/05/24. SKIN ASSESSMENT COMPLETE WITH VERÓNICA HALL. SKIN WITH SCATTERED BRUISING, SCATTERED SCARS, AND REDNESS AT THE SCROTUM AND LAYTON AREA. IV SITE IN THE RIGHT WRIST AND RIGHT UPPER ARM ARE SALINE LOCKED. IV DRESSING ARE CLEAN, DRY, AND INTACT. MIDLINE IN THE LEFT UPPER ARM IS SALINE LOCKED. DRESSING OF MIDLINE IS CLEAN, DRY, AND INTACT.
[2024-01-06] MEDS ORDERED: PHARMACY RENAL DOSE ADJUSTMENT 1 DOSE MISC PO SCH (12:00)
--- NOTE | 2024-01-06 12:21 | NUR ---
VITAL SIGNS TAKEN AND DOCUMENTED IN THE CHART. PATIENT IS SITTING UPRIGHT IN THE CHAIR AND EATING LUNCH. TV ON. PATIENT IS SITTING ON THE COUCH. PATIENT STATED NO FURTHER NEEDS AT THIS TIME. CALL LIGHT AND PERSONAL BELONGINGS ARE WITHIN REACH.
--- NOTE | 2024-01-06 12:44 | NUR ---
MD ASKED BY RN ABOUT METOPROLOL, AMIODARONE, AND REQUIP HOME DOSE. MD GAVE RN ORDERS TO RESTART HOME DOSES. RN PUT IN ORDERS AT THIS TIME. MD WITH NO FURTHER ORDERS AT THIS TIME. CALL ENDED.
[2024-01-06] MEDS ORDERED: IPRAT-ALBUT 0.5-3 ML INH (12:45)
[2024-01-06] MEDS ORDERED: METOPROLOL TARTRATE 50 MG TAB PO SCH (12:45)
[2024-01-06] MEDS ORDERED: AMIODARONE HCL 200 MG TAB PO SCH (12:45)
[2024-01-06] MEDS ORDERED: ZITHROMAX500 MG PO (12:48)
--- NOTE | 2024-01-06 12:48 | NUR ---
LUNCH TRAY REMOVED FROM THE PATIENTS ROOM AT THIS TIME. INTAKE AND OUTPUT VALUES DOCUMENTED. PATIENT REMAINS SITTING ON THE COUCH. PATIENT IS REQUESTING A NICOTINE LOZENGE. PATIENT STATED NO FURTHER NEEDS AT THIS TIME. CALL LIGHT AND PERSONAL BELONGINGS ARE WITHIN REACH.
--- NOTE | 2024-01-06 12:48 | NUR ---
MED REC COMPLETE
[2024-01-06] MEDS ORDERED: GLUCAGON,HUMAN RECOMBINANT 1 MG/ML VIAL SUB-Q PRN (13:30)
[2024-01-06] MEDS ORDERED: IBLOOD GLUCOSE TEST STRIP 1 EA TEST XX PRN (13:30)
[2024-01-06] MEDS ORDERED: DEXTROSE 5% 1,000 ML IV PRN (13:30)
[2024-01-06] MEDS ORDERED: DEXTROSE 50% 50 ML SYR IV PRN ×2 (13:30)
--- NOTE | 2024-01-06 13:31 | NUR ---
PATIENT IS LYING IN THE CHAIR WITH EYES CLOSED AND RESPIRATIONS ARE EVEN AND UNLABORED. CALL LIGHT AND PERSONAL BELONGINGS ARE WITHIN REACH.
--- NOTE | 2024-01-06 14:03 | NUR ---
PATIENT IS LYING IN THE CHAIR WITH THE BILATERAL LOWER EXTREMITIES ELEVATED. PATIENT IS WATCHING TV WITH HIS SITTING ON THE COUCH. VITAL SIGNS TAKEN AND DOCUMENTED IN THE CHART. PATIENT VOID 350 ML YELLOW URINE IN THE URINAL. PATIENT STATED NO FURTHER NEEDS AT THIS TIME. CALL LIGHT AND PERSONAL BELONGINGS ARE WITHIN REACH.
--- NOTE | 2024-01-06 14:08 | NUR ---
MD NOTIFIED OF THE PATIENTS BP OF 92/77 WITH A MAP OF 82. METOPROLOL DOSE TO BE HELD AT THIS TIME. MD GAVE TELEPHONE ORDER TO DISCONTINUE AMIODARONE. MD ALSO GAVE ORDER TO GIVE 500 ML NS BOLUS OVER AN HOUR IF THE BLOOD PRESSURE CONTINUES TO WORSEN. MD WITH NO FURTHER ORDERS AT THIS TIME. CALL ENDED.
--- NOTE | 2024-01-06 14:31 | NUR ---
Pt skilled nursing facilities professional light, requesting chocolate Ensure, given chocolate Glucerna to drink. Patient smiling, talking with family in room, sitting in recliner chair. No further requests at this time.
--- NOTE | 2024-01-06 15:02 | NUR ---
PATIENT IS LYING IN THE CHAIR WITH THE BILATERAL LOWER EXTREMITIES ELEVATED. PATIENT IS SPEAKING TO A VISITOR THAT IS SITTING ON THE COUCH AT THIS TIME. CALL LIGHT AND PERSONAL BELONGINGS ARE WITHIN REACH.
--- NOTE | 2024-01-06 16:05 | NUR ---
PATIENT HAD EPISODE OF INCONTINENCE IN THE BRIEF, CHAIR, AND ON THE FLOOR. PATIENT CLEANED UP AND WIPED TO CLEAN THE SURROUNDING SKIN. PATIENT TRANSFERRED BACK TO BED. PATIENT WITH NEW SOCKS, GOWN, AND BRIEF IN PLACE. CHAIR AND FLOOR WIPED OFF. PATIENT REQUESTING BREATHING TREATMENT FOR SHORTNESS OF BREATH. RT NOTIFIED. FULL ASSESSMENT COMPLETE AND DOCUMENTED IN THE CHART. PATIENT IS ALERT AND ORIENTED TIMES FOUR. PATIENT IS ON THE DIRECTOR OF CONSTRUCTION AND IN ATRIAL FIBRILLATION. RADIAL PULSES ARE STRONG BILATERALLY. SENSATION INTACT WITH NO COMPLAINTS OF NUMBNESS AND TINGLING. NO COMPLAINTS OF PAIN AT THIS TIME. PATIENT IS ON 4 L NC, THIS IS THE PATIENTS BASELINE. LUNG SOUNDS ARE DIMINISHED WITH WHEEZES IN ALL LUNG WINN BILATERALLY. PATIENT NEB TREATMENTS AVAILABLE. BOWEL TONES ARE ACTIVE IN ALL FOUR QUADRANTS. PATIENT IS ON A 60 GRAM CARB DIET AND HIS LAST BOWEL MOVEMENT WAS 01/05/24. LEFT UPPER ARM MIDLINE WITH BRISK BLOOD RETURN. MIDLINE FLUSHED WITH 10 ML NORMAL SALINE AND IS SALINE LOCKED. IV SITE IN THE RIGHT UPPER ARM AND THE RIGHT WRIST ARE SALINE LOCKED. IV DRESSING IS CLEAN, DRY, AND INTACT. SKIN WITH SCATTERED BRUISING, SCATTERED SCABS, AND REDNESS TO THE SCROTUM AND LAYTON AREA. PATIENT IS SITTING ON THE COUHC. PATIENT STATED NO FURTHER NEEDS AT THIS TIME. CALL LIGHT AND PERSONAL BELONGINGS ARE WITHIN REACH.
--- NOTE | 2024-01-06 17:02 | NUR ---
1700 AND 1800 MEDICATIONS ADMINISTERED PER THE EMAR. PRN NICOTINE LOZENGE ADMINISTERED AT THIS TIME. MIDLINE FLUSHED WITH 10 ML NORMAL SALINE. BRISK BLOOD RETURN NOTED. CEFTRIAXONE INFUSION RUNNING AT THIS TIME. PATIENT SITTING IN THE CHAIR AT BEDSIDE. PATIENT GIVEN FRESH CUP OF ICE WATER. PATIENT STATED NO FURTHER NEEDS AT THIS TIME. CALL LIGHT AND PERSONAL BELONGINGS ARE WITHIN REACH.
--- NOTE | 2024-01-06 17:30 | NUR ---
PATIENT VOID 375 ML YELLOW URINE. IV ROCEPHIN INFUSION COMPLETE. MIDLINE FLUSHED WITH 10 ML NORMAL SALINE AND IS SALINE LOCKED. BRISK BLOOD RETURN NOTED. MIDLINE DRESSING IS CLEAN, DRY, AND INTACT. PATIENT DINNER TRAY SET BACK UP FOR THE PATIENT. PATIENT STATED NO FURTHER NEEDS AT THIS TIME. PATIENT IS ASLEEP IN THE CHAIR AT BEDSIDE. CALL LIGHT AND PERSONAL BELONGINGS ARE WITHIN REACH.
[2024-01-06] MEDS ORDERED: CEFTRIAXONE/SODIUM CHLORIDE 2 GM/100 ML PIGGYBACK IV SCH (18:00)
[2024-01-06] MEDS ORDERED: AZITHROMYCIN 250 MG TAB PO SCH (18:00)
--- NOTE | 2024-01-06 18:03 | NUR ---
PATIENT IS LYING IN BED WITH HOB ELEVATED. PATIENT IS WATCHING TV. PATIENT JUST LEFT THE ROOM. CALL LIGHT AND PERSONAL BELONGINGS ARE WITHIN REACH.
--- NOTE | 2024-01-06 18:48 | NUR ---
PATIENT REPOSITIONED AND BOOSTED UP IN BED. PATIENT STATED NO FURTHER NEEDS AT THIS TIME. CALL LIGHT AND PERSONAL BELONGINGS ARE WITHIN REACH.
--- NOTE | 2024-01-06 19:46 | NUR ---
HANDOFF REPORT RECEIVED FROM VERÓNICA STOCK. PT LAYING AWAKE IN BED WATCHING TV. NO NEEDS AT THIS TIME. CALL LIGHT WITHIN REACH.
--- NOTE | 2024-01-06 20:00 | NUR ---
PT REQUESTING SANDWICH BOX. SANDWICH BOX PROVIDED ALONG WITH FRESH ICE WATER. NO FURTHER NEEDS AT THIS TIME. CALL LIGHT WITHIN REACH. BED IN LOW AND LOCKED POSTION.
--- NOTE | 2024-01-06 20:20 | NUR ---
PT ASSESSMENT COMPLETE. PT ON 4L NC, SATURATING WELL. PT A/O X4, ANSWERS QUESTIONS AND FOLLOWS COMMANDS APPROPRIATELY. PT IV AND MIDLINE SITES WNL. PT DENIES FEELING SOB OR ANY PAIN AT THIS TIME. PT BT ACTIVE. PT HAS NO NEEDS AT THIS TIME, CALL LIGHT WITHIN REACH. SAFETY CHECK COMPLETE. BED IN LOW AND LOCKED POSITION.
[2024-01-06] MEDS ORDERED: ROPINIROLE HCL 0.25 MG TAB PO SCH (21:00)
--- NOTE | 2024-01-06 21:40 | NUR ---
NEW GOWN PROVIDED. PT REPOSITONED IN BED AND FRESH ICE WATER PROVIDED. PT REQUESTING PRN NEB TREATMENT. NO FURTHER NEEDS AT THIS TIME. CALL LIGHT WITHIN REACH.
--- NOTE | 2024-01-06 21:52 | NUR ---
PRN NEB TREATMENT PROVIDED PER EMAR. NO FURTHER NEEDS AT THIS TIME. CALL LIGHT WITHIN REACH. BED IN LOW AND LOCKED POSTION.
--- NOTE | 2024-01-06 23:20 | NUR ---
PT USED CALL LIGHT REQUESTING TO TURN UP THE HEAT. PT ALSO PROVIDED WITH A WARM BLANKET. PT HAS NO FURTHER NEEDS AT THIS TIME. CALL LIGHT WITHIN REACH.
[2024-01-07] VITALS (14 sets, daily range): BP systolic 86–133; BP diastolic 54–87
--- NOTE | 2024-01-07 01:23 | NUR ---
PT USED CALL LIGHT STATING HE FELT SHORT OF BREATH AND REQUESTING A NEB TREATMENT. PRN NEB TREATMENT PROVIDED. NO FURTHER NEEDS AT THIS TIME. CALL LIGHT WITHIN REACH.
--- NOTE | 2024-01-07 02:34 | NUR ---
PT RESTING IN BED WITH EYES CLOSED, RESPIRATIONS EVEN AND UNLABORED. CALL LIGHT WITHIN REACH. BED IN LOW AND LOCKED POSITION.
--- NOTE | 2024-01-07 03:18 | NUR ---
PT USED CALL LIGHT REQUESTING TO EMPTY HIS URINAL. NO FURTHER NEEDS AT THIS TIME. CALL LIGHT WITHIN REACH. BED IN LOW AND LOCKED POSTION.
--- NOTE | 2024-01-07 05:15 | NUR ---
MORNING LABS DRAWN VIA MIDLINE AND GIVEN DIRECTLY TO LAB IN PT ROOM. PT MIDLINE WNL. NO FURTHER NEEDS AT THIS TIME. CALL LIGHT WITHIN REACH.
[2024-01-07 05:26] LABS: BASOPHILS 0.8 % (0-2); EOSINOPHILS 0.7 % (0-6); HEMOGLOBIN 11.1 g/dL (12.0-18.0); LYMPHOCYTES 25.4 % (24-44); MCH 28.9 (27-36); MCHC 32.6 g/dl (30-36); MCV 88.8 fl (81-99); MONOCYTES 8.5 % (0-12); NEUTROPHILS 64.6 % (39-80); PLATELET COUNT 325 K/uL (140-440); RBC 3.83 M/ul (4.3-5.7); RDW 16.5 (10.5-15.0)
[2024-01-07 05:34] LABS: ANION GAP 8.4 (7-21); BUN/CREATININE RATIO 15.84 (6.0-28.6); CALCIUM 8.4 mg/dL (8.5-10.1); CREATININE, SERUM 1.01 mg/dL (0.70-1.30); MAGNESIUM 1.8 mg/dL (1.8-2.4); POTASSIUM 4.4 mmol/L (3.5-5.1)
--- NOTE | 2024-01-07 05:37 | NUR ---
PT REQUESTED PRN NEB TREATMENT - GIVEN PER EMAR. PT PROVIDED WITH FRESH ICE WATER. NO FURTHER NEEDS AT THIS TIME. CALL LIGHT WITHIN REACH.
--- NOTE | 2024-01-07 06:57 | NUR ---
PT LINEN CHANGED AND REPOSITIONED IN BED. PT PROVIDED WITH COFFEE. TV TURNED ON. NO FURTHER NEEDS AT THIS TIME. CALL LIGHT WITHIN REACH.
--- NOTE | 2024-01-07 09:02 | NUR ---
KEVIN IS NOTED TO BE IN BED AND ABLE TO EXPRESS NEEDS AND DESIRES TO HEALTHCARE STAFF. ROUNDED WITH MD INGRAM. PLAN IS FOR AFTERNOON DISCHARGE TODAY. AFTER SOME DISCUSSION, KEVIN STATES THAT HE KNOWS HE CAN REST BETTER AT HOME AND FEELS LIKE HE IS COMFORTABLE WITH DISCHARGING TODAY. GOOD APPETITE. 75% OF BREAKFAST CONSUMED. REQUESTED AND RECEIVED MORNING RESPIRATORY TREATMENT. URINAL, CALL LIGHT, AND PERSONAL BELONGINGS AT BEDSIDE. SAFETY CHECK OF ROOM PERFORMED. PRN BUCCAL NICOTINE LOZENGE GIVEN NO OTHER NEEDS IDENTIFIED AT THIS TIME
[2024-01-07] MEDS ORDERED: CEFUROXIME500 MG PO (10:49)
[2024-01-07] MEDS ORDERED: PREDNISONE20 MG PO (10:51)
--- NOTE | 2024-01-07 11:00 | NUR ---
PRN BUCCAL LOZENGE GIVEN PER PATIENT REQUEST. SPOUSE ELVA AT BEDSIDE
--- NOTE | 2024-01-07 11:38 | NUR ---
PT NOT AVAILABLE FOR VISIT. PROVIDED PRAYER.
[2024-01-07] MEDS ORDERED: PREDNISONE10 MG PO (11:44)
[2024-01-07 12:09] LABS: CORTISOL,SERUM 4.6 ug/dL (())
--- NOTE | 2024-01-07 12:36 | NUR ---
CBG 205. 3 UNITS GIVEN. SPOUSE ELVA CONTINUES TO BE IN ROOM. DISCHARGE ORDERS RECEIVED AND TO BE COMPLETED BEFRORE 3 PM WHEN SON IS SCHEDULED TO ARRIVE. AMBULATED TO CHAIR WITH 2 RN ASSISTANCE . EATING LUNCH
--- NOTE | 2024-01-07 13:14 | NUR ---
PRN NICOTINE LOZENGE GIVEN PER PATIENT REQUEST. REPOSITIONED IN RECLINER. 100% OF LUNCH CONSUMED. TRAY REMOVED. NO OTHER NEEDS IDENTIFIED AT THIS TIME
--- NOTE | 2024-01-07 14:37 | NUR ---
SPOKE TO THE PATIENT ABOUT THE DISCHARGE PLAN AND THE NEED TO SIGN THE MEDICARE LETTER. PATIENT ASKED IF HIS COULD SIGN THE LETTER FOR HIM. PATIENT STATES "HE IS READY TO GO HOME TODAY WITH HIS 'S HELP".
== END 2024-01-07 15:45 | disposition home or self-care (01) | DRG 871 ==
LOC: ED 16:55 → CCU 19:40
PROVIDERS: Emergency Medicine; ADMIT Student in an Organized Health Care Education/Training Program; ATTEND Student in an Organized Health Care Education/Training Program
PROC: 3E03329 Introduction of Other Anti-infective into Peripheral Vein, Percutaneous Approach (ICD-10-PCS; 2024-01-05)
PROC: 3E033XZ Introduction of Vasopressor into Peripheral Vein, Percutaneous Approach (ICD-10-PCS; principal; 2024-01-05 18:30)
DX: A41.9 Sepsis, unspecified organism (principal); J18.9 Pneumonia, unspecified organism; R65.21 Severe sepsis with septic shock; N39.0 Urinary tract infection, site not specified; J44.0 Chronic obstructive pulmonary disease with (acute) lower respiratory infection; J44.1 Chronic obstructive pulmonary disease with (acute) exacerbation; N17.9 Acute kidney failure, unspecified; I48.0 Paroxysmal atrial fibrillation; F41.1 Generalized anxiety disorder; I10 Essential (primary) hypertension; K21.9 Gastro-esophageal reflux disease without esophagitis; E78.5 Hyperlipidemia, unspecified; G40.909 Epilepsy, unspecified, not intractable, without status epilepticus; E11.9 Type 2 diabetes mellitus without complications; G25.81 Restless legs syndrome; F17.210 Nicotine dependence, cigarettes, uncomplicated; E87.5 Hyperkalemia; E86.9 Volume depletion, unspecified; I25.10 Atherosclerotic heart disease of native coronary artery without angina pectoris; Z95.5 Presence of coronary angioplasty implant and graft; I25.2 Old myocardial infarction; Z90.89 Acquired absence of other organs; Z90.49 Acquired absence of other specified parts of digestive tract; Z98.890 Other specified postprocedural states; Z88.1 Allergy status to other antibiotic agents; Z88.8 Allergy status to other drugs, medicaments and biological substances; Z79.899 Other long term (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; Z79.51 Long term (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 of inhaled steroids; Z79.01 Long term (current) use of anticoagulants
CPT/HCPCS: 36415; 36569; 36592; 51702; 71045; 80048; 80053; 81001; 82533; 83605; 83735; 83880; 84484; 85025; 85610; 85730; 87088; 87502; 90694; 93005; 93010; 93306; 94640; 94644; 94668; 94762; 99285-25; C1751; J0456; J0696; J1644; J1815; J2060; J2919; J7030; J7121; J7512; U0002

== ENCOUNTER 2024-01-10 09:38 | Inpatient (IN) | payer MEDICARE ==
[~2024-01-10] VITALS: Ht 175.3 cm; Wt 87.8 kg
[2024-01-10] VITALS (28 sets, daily range): BP systolic 100–138; BP diastolic 65–110
[~2024-01-10 09:38] MED LIST changes: +NICOTINE1 EAC2 TD; +ONDANSETRON ODT4 MG PO; +SULFAMETHOXAZO1 EAC1 PO; +ZITHROMAX500 MG PO
[2024-01-10] MEDS ORDERED: ALBUTEROL/IPRATROPIUM 3 ML NEB ONE (09:57)
[2024-01-10 10:05] LABS: BASOPHILS 0.5 % (0-2); HEMATOCRIT 38.3 % (35.0-50.0); HEMOGLOBIN 12.3 g/dL (12.0-18.0); MCH 29.1 (27-36); MCHC 32.1 g/dl (30-36); MCV 90.9 fl (81-99); MONOCYTES 8.8 % (0-12); NEUTROPHILS 66.7 % (39-80); PLATELET COUNT 421 K/uL (140-440); RBC 4.21 M/ul (4.3-5.7); RDW 17.2 (10.5-15.0)
[2024-01-10] MEDS ORDERED: ALBUTEROL/IPRATROPIUM 3 ML NEB INH ONE (10:15)
[2024-01-10] MEDS ORDERED: AMIODARONE HCL 150 MG/3 ML VIAL IV ONE (10:15)
[2024-01-10 10:29] LABS: ALBUMIN 2.7 g/dL (3.4-5.0); ALBUMIN/GLOBULIN RATIO 0.68 (1.1-2.4); BILIRUBIN, TOTAL 0.3 ng/dL (0.2-1.0); BUN/CREATININE RATIO 6.53 (6.0-28.6); CALCIUM 9.1 mg/dL (8.5-10.1); CREATININE, SERUM 1.53 mg/dL (0.70-1.30); PROTEIN, TOTAL 6.7 g/dL (6.4-8.2)
[2024-01-10] MEDS ORDERED: DEXTROSE 5% IV ONE (10:30)
[2024-01-10] MEDS ORDERED: AMIODARONE HCL IV ONE (10:30)
[2024-01-10 10:42] LABS: INFLUENZA B NAA NEGATIVE (NEGATIVE); RESPIRATORY SYNCYTIAL VIR NAA NEGATIVE (NEGATIVE)
[2024-01-10] MEDS ORDERED: CALCIUM CHLORIDE 1,000 MG/10 ML SYR IV ONE (11:15)
[2024-01-10] MEDS ORDERED: SODIUM BICARBONATE 50 MEQ in DEXTROSE 5% 1,000 ML IV SCH (11:15)
[2024-01-10] MEDS ORDERED: FUROSEMIDE 40 MG/4 ML VIAL IV STA (11:45)
[2024-01-10] MEDS ORDERED: NICOTINE 21 MG/24 HR 1 EA TDSY TD SCH (11:49)
[2024-01-10] MEDS ORDERED: APIXABAN 5 MG TAB PO SCH (11:56)
[2024-01-10] MEDS ORDERED: AMIODARONE HCL 200 MG TAB PO SCH (11:56)
[2024-01-10] MEDS ORDERED: carBAMazepine 200 MG TAB PO SCH (11:57)
[2024-01-10] MEDS ORDERED: CLOPIDOGREL BISULFATE 75 MG TAB PO SCH (11:58)
[2024-01-10] MEDS ORDERED: GLUCAGON,HUMAN RECOMBINANT 1 MG/ML VIAL SUB-Q PRN (12:00)
[2024-01-10] MEDS ORDERED: DEXTROSE 5% 1,000 ML IV PRN (12:00)
[2024-01-10] MEDS ORDERED: EMPAGLIFLOZIN 25 MG TAB PO SCH (12:00)
[2024-01-10] MEDS ORDERED: PHARMACY RENAL DOSE ADJUSTMENT 1 DOSE MISC PO SCH (12:00)
[2024-01-10] MEDS ORDERED: IBLOOD GLUCOSE TEST STRIP 1 EA TEST VI SCH (12:00)
[2024-01-10] MEDS ORDERED: IBLOOD GLUCOSE TEST STRIP 1 EA TEST XX PRN (12:00)
[2024-01-10] MEDS ORDERED: DEXTROSE 50% 50 ML SYR IV PRN ×2 (12:00)
[2024-01-10] MEDS ORDERED: INSULIN LISPRO 100 UNIT/ML ML SUB-Q SCH (12:00)
[2024-01-10] MEDS ORDERED: FAMOTIDINE 20 MG TAB PO SCH (12:02)
[2024-01-10] MEDS ORDERED: methylPREDNISolone SOD SUCC 40 MG/ML VIAL IV SCH (12:15)
--- NOTE | 2024-01-10 12:40 | NUR ---
74 YR OLD MALE PATEINT ADMITTED TO CCU VIA STRETCHER UNDER DR. MUNOZ FROM ED WITH DX OF EXERBATION COPD. PATIENT WAS DISCHARGED FROM THIS HOSPITAL APPROX 3 DAYS AGO, AT THAT TIME HAD A DX OF SEPSIS. HAS LONG HX OF COPD/CHF. PATEINT HAS BEEN ADMITTED TO [facility] OVER THE PAST YEAR. UPON ADMIT TO CCU TO IS ALERT AND ORIENTED. ABLE TO TALK IN COMPLETE SENTENCES. WAS ON BIPAP IN ER, CURRENTLY ON O2 AT 4 L NC, THIS IS WHAT HE USES AT HOME. PATEINT IS FOLLOWING COMMANDS, IS WITH PATIENT. PATEINT WAS GIVEN 300 MG OF AMIODARONE IN ED WAS IN V-TACH, PACER PADS ON, NOW TAKEN OFF. ADMISSION PROCESS STARTED.
--- NOTE | 2024-01-10 13:00 | NUR ---
DR. MUNOZ IS IN ROOM. CARDIZEM 10 MG IV ORDERED. HR 120-140 INN AFIB W/RVR.
[2024-01-10] MEDS ORDERED: dilTIAZem HCL 25 MG/5 ML VIAL IV STA (13:01)
--- NOTE | 2024-01-10 13:08 | NUR ---
CARDIZEM 10 MG IV GIVEN. PATIENT DENIES CHEST PAIN.
--- NOTE | 2024-01-10 13:20 | NUR ---
PT NOT AVAILABLE FOR VISIT. PROVIDED PRAYER.
--- NOTE | 2024-01-10 13:40 | NUR ---
ACCUCHECK-229. INSULIN 5 UNITS SQ GIVEN. NO SITTING UP IN BE TO TAKE LUNCK. REMAINS OFF BIPAP.
[2024-01-10] MEDS ORDERED: ALBUTEROL/IPRATROPIUM 3 ML NEB INH PRN (14:15)
--- NOTE | 2024-01-10 14:37 | NUR ---
SPOKE TO PATIENT ABOUT THE DISCHARGE PLAN. THE PATIENT'S IS AT BEDSIDE. PATIENT PLANS TO DISCHARGE HOME WHEN HE IS MEDICALLY STABLE. THE PATIENT HAS 3 GROW CHILDREN. ONE SON LIVES WITH HIS WITH HIS PARENTS. THE PATIENT STATES HIS SON IS NOT VERY HELPFUL. THE PATIENT OWNS THEIR HOUSE. THE PATIENT GETS FOOD STAMPS AND ALSO GETS SOCIAL SECURITY. THE PATIENT'S DEMOGRAHICS ARE CORRECT. THE PATIENT USES A WALKER AND WHEELCHAIR. THE PATIENT STATES THAT THE DOCTOR ON DISCHARGE FORGOT TO ORDER HIS LASIX. THE PATIENT CONTINUES TO BE ON 02 AT HOME. PATIENT SAYS HE IS ABLE TO GET AROUND THE HOUSE. THE PATIENT DISCHARGED FROM THE HOSPITAL LAST WEDNESDAY. PATIENT WILL DC IN 1-2 DAYS. PATIENT HAS ALONG HISTORY OF NOT WANTING PLACEMENT.
[2024-01-10] MEDS ORDERED: NICOTINE POLACRILEX 4 MG LOZENGE BUCCAL PRN (15:00)
--- NOTE | 2024-01-10 15:18 | NUR ---
REFERRED BY VERÓNICA SABILLON. PT SUPPORTED BY ELVA, REQUESTED PASTOR TIMMY NAPOLES BE CONTACTED REGARDING CONDITION, PT WOULD LIKE A VISIT. PRINTING SHOP SUPERVISOR PROVIDED SUPPORTIVE PRESENCE, HOSPITALITY, PRAYER. WILL CONTACT PASTOR NAPOLES TOMORROW MORNING. PT EXPRESSED GRATITUDE.
[2024-01-10] MEDS ORDERED: dilTIAZem HCL 25 MG/5 ML VIAL IV ONE (15:30)
[2024-01-10] MEDS ORDERED: MICONAZOLE NITRATE 1 EA BTL TOP SCH (15:45)
[2024-01-10] MEDS ORDERED: ALBUTEROL/IPRATROPIUM 3 ML NEB INH SCH (16:00)
--- NOTE | 2024-01-10 16:00 | NUR ---
ASSESSMENT DONE. HR REMAINS 110-130. CARDIZEM 10 MG IV REPEATED. PATIENT VRY TALKATIVE. LAYTON CARE GIVEN. PUREWICK BAG REPLACED.
[2024-01-10 17:28] LABS: ANION GAP 10.5 (7-21); BUN/CREATININE RATIO 10.81 (6.0-28.6); CALCIUM 9.7 mg/dL (8.5-10.1); CREATININE, SERUM 1.48 mg/dL (0.70-1.30); POTASSIUM 5.5 mmol/L (3.5-5.1)
[2024-01-10] MEDS ORDERED: AZITHROMYCIN 250 MG TAB PO SCH (17:30)
[2024-01-10] MEDS ORDERED: DILTIAZEM HCl/D5W 125 ML IV SCH (18:15)
--- NOTE | 2024-01-10 19:00 | NUR ---
HOB ELEVATED. CARDIZEM GTT AT 10 MG/HR. PUREWICK IN PLACE. O2 AT [address] BIPAP IN ROOM[address] NO FUTHER CHANGES.
[2024-01-10] MEDS ORDERED: BUDESONIDE 0.5 MG/2 ML VIAL INH SCH (20:00)
--- NOTE | 2024-01-10 20:41 | NUR ---
PATIENTS VITALS TAKEN AND RECORDED. MALE PUREWICK IN PLACE. PATIENTS INTAKE AND OUTPUT RECORDED. PATIENT IS ON 4L VIA NC AND DENIES ANY SOB. PATIENT REPOSIIONED IN BED. PATIENTS OM MEDS GIVEN PER ORDER. PATIENT GIVEN PRN NICOTINE BETO PER REQUEST. PATIENTS BS TAKEN AND RECORDED. SS GIVEN PER ORDER. PATIENT PROVIDED FRESH ICE WATER. PATIENT DENIES ANY FURTHER NEEDS. CALL LIGHT IN REACH. DRIP TIITRATED PER PROTOCOL-SEE FLOWSHEET.
[2024-01-10] MEDS ORDERED: MELATONIN 3 MG TAB PO SCH (21:00)
[2024-01-10] MEDS ORDERED: ROPINIROLE HCL 1 MG TAB PO SCH (21:00)
--- NOTE | 2024-01-10 21:39 | NUR ---
PATIENT REPOSITIONED IN BED. PATIENT INCONT OF URINE. PATIENT DENIES ANY FURTHER NEEDS. CALL LIGHT IN REACH. PATIENT REMAINS ON 4L VIA NC AND ERWIN ANY SOB
--- NOTE | 2024-01-10 22:06 | NUR ---
PATIENT REPORTS SOB. RT IN ROOM TO ADMIN NEB. PLACED CALL TO MD TO REQUEST PATIENTS HOME ANXIETY MEDCIATIONS. NEW VERBAL ORDER RECEIVED AND VERIFIED USING THE REPEATBACK METHOD.
[2024-01-10] MEDS ORDERED: hydrOXYzine pamoate 25 MG CAP PO PRN (22:15)
--- NOTE | 2024-01-10 22:37 | NUR ---
PATIENT GIVEN SCHEDULED MEDS PER ORDER. PATIENT GIVEN PRN LOZENGE PER ORDER. PATIENT REPORTS FEELING ANXIOUS, PRN MEDICATION GIVEN PER ORDER. PATIENT ASSISTED IN DIALING WIFES PHONE NUMBER. NO FURTHER NEEDS NOTED. CALL LIGHT IN REACH.
--- NOTE | 2024-01-10 23:28 | NUR ---
PATIENT REPOSITIONED IN BED. PATIENTS FAN MOVED. PATIENT DENIES ANY FURTHER NEEDS. CALL LIGHT IN REACH. PATIENT REMAINS ON 4L VIA NC.
[2024-01-11] VITALS (48 sets, daily range): BP systolic 102–1136; BP diastolic 65–108
--- NOTE | 2024-01-11 00:05 | NUR ---
RT IN ROOM TO ADMIN NEB
--- NOTE | 2024-01-11 00:46 | NUR ---
ASSESMENT COMPLETED. PATIENT REPOSITIONED IN BED. PATIENT GIVEN PRN NICOTINE BETO PER REQUEST. PATIENT DENIES ANY FURTHER NEEDS. CALL LIGHT IN REACH.
--- NOTE | 2024-01-11 02:01 | NUR ---
PATIENT REPOSITIONED IN BED. PATIENT GIVEN PRN NICOTINE LOZENGE PER ORDER. PATIENT DENIES ANY PAIN OR SOB. PATIENTS DILT DRIP TITRATED PER PROTOCOL. NO FURTHER NEEDS NOTED. CALL LIGHT IN REACH.
--- NOTE | 2024-01-11 03:00 | NUR ---
RT IN ROOM TO ADMIN NEB. PATIENT REPOSITIONED IN BED. PATIENT REMAINS IN 4L VIA NC. PATIENT DENIES ANY FURTHER NEEDS. CALL LIGHT IN REACH.
--- NOTE | 2024-01-11 04:49 | NUR ---
PRN NICOTINE LOZENGE PROVIDED PER PATIENT REQUEST. PATIENT IS RESTING IN BED. NAD NOTED. NO FURTHER NEEDS NOTED. CALL LIGHT IN REACH
[2024-01-11 05:40] LABS: BASOPHILS 0.2 % (0-2); EOSINOPHILS 0.1 % (0-6); HEMATOCRIT 34.4 % (35.0-50.0); HEMOGLOBIN 11.2 g/dL (12.0-18.0); LYMPHOCYTES 9.3 % (24-44); MCH 28.7 (27-36); MCHC 32.6 g/dl (30-36); MCV 88.1 fl (81-99); MONOCYTES 5.1 % (0-12); NEUTROPHILS 85.3 % (39-80); PLATELET COUNT 397 K/uL (140-440)
--- NOTE | 2024-01-11 05:43 | NUR ---
PATIENT ASSISTED FROM THE BED TO THE CHAIR A 1PA W/FWW. PATIENT SOB W/ACITIVTY. PATIENT REMAINS ON 4L VIA NC. PLACED CALL TO RT FOR PRN NEB TX. PATIENTS AM MEDS GIVEN PER ORDER. PATIENT GIVEN PRN ANXIETY MEDICATION PER ORDER AD REQUEST. PATIENT GIVEN PRN NICOTINE LOZENGE. NEW MALE PUREWICK PLACED. PATIENTS INTAKE AND OUTPUT RECORDED. NEW LINEN ON BED. PATIENT PROVIDED FRESH ICE WATER AND COFFEE. LAB IN ROOM. PATIENT DENIES ANY FURTHER NEEDS. CALL LIGHT AND BELONGINGS ARE WITHIN REACH.
[2024-01-11 05:50] LABS: ANION GAP 12.1 (7-21); BUN/CREATININE RATIO 12.73 (6.0-28.6); CALCIUM 9.8 mg/dL (8.5-10.1); CREATININE, SERUM 1.57 mg/dL (0.70-1.30); MAGNESIUM 2.1 mg/dL (1.8-2.4); POTASSIUM 5.1 mmol/L (3.5-5.1)
--- NOTE | 2024-01-11 05:51 | NUR ---
RT IN ROOM
--- NOTE | 2024-01-11 06:38 | NUR ---
PATIENTS DILT DRIP TITRATED PER PROTOCOL-SEE FLOWSHEET.
--- NOTE | 2024-01-11 06:49 | NUR ---
PATIENT REQUESTING PRN LOZENGE. PRN LOZENGE ADMINSITERED. PATIENT HAS NO FURTHER NEEDS. CALL LIGHT IN REACH.
[2024-01-11] MEDS ORDERED: FUROSEMIDE 40 MG/4 ML VIAL IV ONE (07:15)
--- NOTE | 2024-01-11 07:30 | NUR ---
REPORT RECEIVED. PATIENT IS AWAKE SITTING UP IN CHAIR. DENIES PAIN. CARDIZEM GTT INFUSING.
[2024-01-11] MEDS ORDERED: dilTIAZem HCL 30 MG TAB PO SCH ×2 (08:00→14:00)
--- NOTE | 2024-01-11 10:41 | NUR ---
VISITED DURING SPIRITUAL CARE ROUNDS. PT ON BIPAP SO TALKING DIFFICULT. SHORT VISIT. [facility] PROVIDED SUPPORTIVE PRESENCE, HOSPITALITY, PRAYER. PT EXPRESSED GRATITUDE.
--- NOTE | 2024-01-11 11:00 | NUR ---
Spoke with Nazario. He states he is feeling better and complains he was sent home too soon. He denies needs, has all the DME he needs. Pt will go home with on dc. I was notified by staff, his is his state paid cg. I did check with [facility] Disability they do not qualify for any services and do not have CG. 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 Pt also states he was stopped by the police for unsafe driving. He has not had a hearing, but thinks he can drive. He states he needs to retake his driving test and written test. I let him know he cannot drive until he has completed his testing or he could have further legal issues.
--- NOTE | 2024-01-11 12:54 | NUR ---
UR CLINICAL REVIEW: 2 MN FOR VERSALUS-MEETS INPT CRITERIA FOR COPD MEDICARE INPT 01/10/24 @ 1148 ORDER MATCHES REG NO AUTH REQUIRED PER MEDICARE GUIDELINES. DISCHARGE TO HOME WHEN STABLE
--- NOTE | 2024-01-11 13:15 | NUR ---
DR. MUNOZ IS AWARE THAT CARDIZEM GTT CONTINUES TO INFUSE AT 5 MG/HR. MD WILL INCREASE PO CARDIZEM DOSE FOR 1400 .
--- NOTE | 2024-01-11 14:00 | NUR ---
ROUTINE MEDS GIVEN. PATIENT IS VERY TALKATIVE. HAS INCREASE HORTNESS OF BREATH WITH EXERTION. PUREWICK IN PLACE. SPONGE BATH GIVEN. CARDIZEM GTT AT 5 MG/HR.
--- NOTE | 2024-01-11 16:00 | NUR ---
ASSESSMENT UNCHANGED. LUNGS REMAIN TIGHT WITH COARSE BREATH SOUND THROUGHTOUT. HAS OCC HARSH COUGH. DENIES PAIN, PATIEN HAS POTATO CHIPS AT BEDSIDE. TALKED WITH PATIENT ABOUT DIET AND SODIUM INTAKE. PATIENT IS REALLY GETTING THE WHOLE PICTURE OF HIS TREATMENT PLAN. PATIENT WITH MANY REQUESTS AND NEEDS.
--- NOTE | 2024-01-11 18:46 | NUR ---
RESTING, WATCHING TV IS W/O C/O.
--- NOTE | 2024-01-11 19:00 | NUR ---
REPORT TO NEXT SHIFT. PATIENT IS RESTING ON RIGHT SIDE.
--- NOTE | 2024-01-11 19:58 | NUR ---
RECEIVED REPORT FROM DAY SHIFT RN. PATIENT IS RESTING IN BED RECEIVING NEB. NO NEEDS NOTED. CALL LIGHT IN REACH.
--- NOTE | 2024-01-11 20:28 | NUR ---
PATIENTS VITALS TAKEN AND RECORDED. INTAKE AND OUTPUT RECORDED. PATIENT INCONT OF URINE. NEW MALE PUREWICK IN PLACE. PATIENT REPOSITIONED. PATIENT REMAINS ON 4L VIA NC. PATIENT DENIES ANY PAIN OR SOB. PATIENTS IV'S X2 FLUSHED AND SL PER ORDER. PATIENTS PM MEDS GIVEN PER ORDER. PRN LOZENGE GIVEN PER REQUEST. PATIENT DENIES ANY FURTHER NEEDS. ASSESMENT COMPLETED. CALL LIGHT IN REACH.
--- NOTE | 2024-01-11 20:37 | NUR ---
ELECTRONICS PROCESSOR HELPED RN CHANGE BRENDON AND KE.
--- NOTE | 2024-01-11 22:01 | NUR ---
PATIENT IS RESTING IN BED. MEDS GIVEN PER ORDER. PATIENT DENIES ANY NEEDS. CALL LIGHT IN REACH.
--- NOTE | 2024-01-11 23:11 | NUR ---
PATIENT IS RESTING IN BED WITH EYES CLOSED, RR 24. PATIENT REMAINS ON 4L VIA NC. NAD NOTED. CALL LIGHT IN REACH.
[2024-01-12] VITALS (16 sets, daily range): BP systolic 108–145; BP diastolic 65–86
--- NOTE | 2024-01-12 01:05 | NUR ---
RT IN ROOM TO ADMIN NEB. PATIENT IS RESTING IN BED AND REPORTS SOB. PATIENTS SATS WNL. PATIENT REMAINS ON 4L VIA NC.
--- NOTE | 2024-01-12 02:20 | NUR ---
PATIENT INCONT OF URINE. PATIENTS ATTEND CHANGED AND LAYTON CARE COMPLETED. PATIENT GIVEN SCHEDULED MEDICATIONS PER ORDER. PATIENT GIVEN PRN BETO PER ORDER. PATIENT DENIES ANY FURTHER NEEDS. CALL LIGHT IN REACH.
--- NOTE | 2024-01-12 03:52 | NUR ---
PATIENT IS RESTING IN BED WITH EYES CLSOED, RR 16. CALL LIGHT IN REACH.
--- NOTE | 2024-01-12 04:57 | NUR ---
PATIENT REPOSITIONED IN BED. PATIENT DENIES ANY AOB. PATIENT DENIES ANY FURTHER NEEDS. CALL LIGHT IN REACH.
--- NOTE | 2024-01-12 05:44 | NUR ---
PATIENT IS RESTING IN BED. PATIENTS AM MEDS GIVEN PER ORDER. PATIENT GIVEN PRN LOZENGE. PATIENT DENIES ANY SOB AND REMAINS ON 4L VIA NC. PATIENT DENIES ANY FURTHER NEEDS. CALL LIGHT IN REACH. LAB IN ROOM TO DRAW BLOOD.
[2024-01-12 05:51] LABS: BASOPHILS 0.3 % (0-2); HEMATOCRIT 33.9 % (35.0-50.0); LYMPHOCYTES 4.8 % (24-44); MCH 28.6 (27-36); MCHC 32.4 g/dl (30-36); MCV 88.4 fl (81-99); MONOCYTES 3.6 % (0-12); NEUTROPHILS 91.3 % (39-80); PLATELET COUNT 394 K/uL (140-440); RBC 3.84 M/ul (4.3-5.7); RDW 16.9 (10.5-15.0)
[2024-01-12 06:03] LABS: ANION GAP 9.8 (7-21); BUN/CREATININE RATIO 28.2 (6.0-28.6); CALCIUM 8.8 mg/dL (8.5-10.1); CREATININE, SERUM 1.17 mg/dL (0.70-1.30); MAGNESIUM 2.1 mg/dL (1.8-2.4); POTASSIUM 4.8 mmol/L (3.5-5.1)
--- NOTE | 2024-01-12 06:47 | NUR ---
SILVICULTURE TEACHER HELP RN GET PT UP IN RECLINER. WE CHANGED PUREWICK, BRIEF, AND BED LINENS.
--- NOTE | 2024-01-12 06:56 | NUR ---
PATIENT ASSISTED A 1PA TO PIVOT XFER FROM BED TO CHAIR. PATIENT TOLERATED ACTIVITY WELL. PATIENT IS RESTING IN RECLINER. PATIENT REMAINS ON 4L VIA OK. NEW MALE PUREWICK IN PLACE. NEW GOWN PLACED ON PATIENT. PATIENT DENIES ANY SOB. PATIENT DENIES ANY NEEDS. CALL LIGHT IN REACH. COFFEE PROVIDED.
--- NOTE | 2024-01-12 07:50 | NUR ---
Report received from Aleks SANCHES. RT in room with patient. Wing RN in room to provide PRN lozenge.
--- NOTE | 2024-01-12 08:20 | NUR ---
CBG checked and breakfast tray delivered. Patient sitting up in chair. A+O, on 4L NC, productive cough noted. Purewick in place draining clear yellow urine. Pt states no needs at this time. Call light in reach.
--- NOTE | 2024-01-12 09:10 | NUR ---
Scheduled medications administered, extensive education provided to patient who verbalizes understanding, continue to reinforce. Assessment complete, lung sounds coarse with wheezes noted, on 4L O2. Mild edema in BLE, trace pitting. Fresh coffee provided. Room tidied. No needs at this time, call light in reach.
--- NOTE | 2024-01-12 09:55 | NUR ---
Spoke with Nazario. He denies needs. Does not want to go home. Let him know he has to discuss this with . The plan is not for him to leave today. IMM letter explained and pt signed.
[2024-01-12] MEDS ORDERED: POLYETHYLENE GLYCOL 3350 1 PACKET PO ONE (10:15)
--- NOTE | 2024-01-12 10:21 | NUR ---
Administered miralax per order. Patient resting in chair. Updated on transfer to medical floor, patient is agreeable to this. Palak at bedside.
--- NOTE | 2024-01-12 10:55 | NUR ---
REPORT RECEIVED FROM SERINA SANCHES IN CCU. PT TRANSFERRED PER CHAIR TO RM 115, IN ROOM ALSO. ROOM ORIENTATION GIVEN, CALL LIGHT WITHIN REACH. PT STILL SITTING UP IN CHAIR WITH LEGS ELEVATED, O2 AT 4 L PER NC, MALE PUREWICK IN PLACE, TELE #[address] NO NEEDS IDENTIFIED AT THIS TIME.
--- NOTE | 2024-01-12 11:00 | NUR ---
Patient transferred to medical unit, patient agreeable to plan of care. All questions answered. VSS, on chronic 4L NC O2. In stable condition, all belongings sent with patient.
--- NOTE | 2024-01-12 11:15 | NUR ---
PT IN WORKING WITH PT.
--- NOTE | 2024-01-12 12:07 | NUR ---
DID LAYTON CARE ON PT AND PUT A NEW MALE BRENDON @1200. PT IS SITTING UP IN HIS CHAIR AND DOESNT NEED ANYTHING ELSE FROM ME AND IS SET UP FOR LUNCH. CALL LIGHT IS WITHIN REACH.
--- NOTE | 2024-01-12 13:04 | NUR ---
PT SITTING UP IN CHAIR TO EAT AND WATCH TV, CALL LIGHT WITHIN REACH. LOZENGE GIVEN REQUESTED. NO OTHER NEEDS AT THIS TIME. IN ROOM WITH PT.
--- NOTE | 2024-01-12 13:40 | NUR ---
PT NOT AVAILABLE FOR VISIT. PROVIDED PRAYER.
--- NOTE | 2024-01-12 13:48 | NUR ---
PT SITTING UP IN CHAIR VISITING [facility] ACCOUNT EXECUTIVE. NO REQUESTS AT THIS TIME. CALL LIGHT WITHIN REACH.
--- NOTE | 2024-01-12 13:48 | NUR ---
2 CNAS WENT IN AT THIS TIME BECAUSE PATIENT SAID THAT HE THOUGHT HE HAD URINATED IN HIS BRIEF. MAINTENANCE MECHANIC 2ND SHIFT CHANGED THE BRIEF BUT MALE BRENDON WAS STILL FUNCTIONING. CALL LIGHT WITHIN REACH, NO FURTHER NEEDS AT THIS TIME.
--- NOTE | 2024-01-12 13:56 | NUR ---
PT REQUESTED SPIRITUAL CARE VISIT. TALKED OF PROGRESS, STATED FEELING BETTER BUT "NOT QUITE RIGHT." EXPRESSED CONFIDENCE IN NURSING CARE. PRESSER AUTOMATIC PROVIDED SUPPORTIVE PRESENCE, HOSPITALITY, PRAYER, FACILITATED INTERACTION WITH THERAPY ANIMAL. PT EXPRESSED GRATITUDE, REQUESTED PASTOR TIMMY NAPOLES BE CONTACTED.
--- NOTE | 2024-01-12 14:40 | NUR ---
PATIENT IN BED AT THIS TIME. PIERCING MILL OPERATOR AND RN IN ROOM TRANSFERING PATIENT FROM CHAIR TO BED. PATIENT USED A FRONT WHEELED WALKER AND WAS A 2 PERSON ASSIST. PATIENT ALSO ASKED FOR MORE ICE WATER. CALL LIGHT WITHIN REACH, NO FURTHER NEEDS AT THIS TIME.
--- NOTE | 2024-01-12 14:40 | NUR ---
PT TRANSFERRED FROM CHAIR TO BED PER PT REQUEST. PT C/O SOB, BUT RECOVERED QUICKLY AND O2 SAT REMAINED HIGH 9O% (96-97). CALL LIGHT WITHIN REACH.
--- NOTE | 2024-01-12 14:41 | NUR ---
CONTACTED PASTOR TIMMY NAPOLES AT PT REQUEST. PASTOR NAPOLES NOT AVAILABLE FOR VISIT BUT OFFERED PRAYERS FOR PT. [facility]
--- NOTE | 2024-01-12 15:18 | NUR ---
PT LAYING ON HIS SIDE IN BED, REQUESTED A NICOTINE LOZENGE. LOZENGE GIVEN. NO OTHER REQUESTS AT THIS TIME. PT BROUGHT UP THAT HE WOULD LIKE TO QUIT SMOKING, ENCOURAGED PT TO KEEP TRYING. CALL LIGHT WITHIN REACH.
--- NOTE | 2024-01-12 15:20 | NUR ---
INFORMED PT OF PASTOR NAPOLES'S MESSAGE. PT EXPRESSED UNDERSTANDING, GRATITUDE.
--- NOTE | 2024-01-12 15:46 | EKG ---
[facility] [address] [place], [place] [address] Signed Atrial fibrillation with rapid ventricular response with premature ventricular or aberrantly conducted complexes Right bundle branch block Possible Lateral infarct , age undetermined Abnormal ECG No previous ECGs available Confirmed by Karitk Newman MD ([id number]) on 01/12/2024 3:46:19 PM Electronically Signed By: KARTIK NEWMAN MD 01/12/24 1546 PATIENT NAME: KEVIN DAUGHERTY Electrocardiogram DATE OF : 46 PHYSICIAN: KARTIK NEWMAN MD REPORT #: [id number] REPORT IS CONFIDENTIAL AND NOT TO BE RELEASED WITHOUT AUTHORIZATION
--- NOTE | 2024-01-12 16:12 | NUR ---
RT IN TO GIVE PT TREATMENT REQUESTED BY PT.
--- NOTE | 2024-01-12 17:04 | NUR ---
PT RESTING IN BED WATCHING TV, NO REQUESTS AT THIS TIME.
--- NOTE | 2024-01-12 17:47 | NUR ---
PT SITTING IN THE CHAIR POSITION IN BED EATING DINNER, NO REQUESTS AT THIS TIME. CALL LIGHT WITHIN REACH.
--- NOTE | 2024-01-12 18:13 | NUR ---
PT'S HEART RATE HAS INCREASED FROM 110s to 130-140s. PT EATING DINNER, DENIES CHEST PAIN OR DIZZINESS AT THIS TIME. DR HAMPTON AWARE. CALL LIGHT WITHIN REACH.
--- NOTE | 2024-01-12 18:30 | NUR ---
DR HAMPTON CALLED REGARDING TACHYCARDIA. ORDER RECEIVED TO GIVE 2000 DOSE OF CARDIAZEM NOW.
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
--- NOTE | 2024-01-12 19:57 | NUR ---
CALL LIGHT ANSWERED. PT WANTED PERSONAL CHIPS THAT FAMILY MEMBER BROUGHT IN. THIS SALMON TROLL FISHER ASKED PRIMARY RN DUE TO PT SODIUM DIET. VERÓNICA DIANA OKAYED A SMALL PORTION OF CHIPS FOR PT. SALMON TROLL FISHER BROUGHT PT THE PORTION OF CHIPS IN BAG. PT STATED "I PAID FOR THOSE CHIPS, I WANT THE WHOLE THING OR I WILL CALL SECURITY." SALMON TROLL FISHER TOLD PT WHAT RN HAD SAID BUT WOULD GO CONSULT HIS RN ABOUT MORE CHIPS. PT PROCCEDED TO THROW BAG OF CHIPS AT [facility]. BAG LANDED ON THE GROUND BY THE DOOR. SALMON TROLL FISHER LEFT ROOM AND NOTIFED WASTE MACHINE OPERATOR AND PRIMARY RN.
--- NOTE | 2024-01-12 20:00 | NUR ---
pt REQUESTING CANS OF [place]. EDUCATED ON 2G SODIUM DIET. VESSEL BUILDER SUPPLIES pt WITH CHIPS IN BAG. pt THROWS CHIPS OFF OF TABLE AT VESSEL BUILDER. pt STATES "I DIDN'T THROW THEM, I JUST THREW THEM OFF THE TABLE. YOU PEOPLE CAN PAY ME FOR THOSE CHIPS." DISCUSSED CHF AND SODIUM AND WATER CONSUMPTION. pt STATES "I WISH I COULD BE TRANSFERRED. I WANT TO SEE THIS DR. THAT NURSE ON DAYSHIFT WAS TERRIBLE". DISCUSSED PLAN OF CARE AGAIN WITH pt. pt HAS CALL LIGHT IN REACH.
--- NOTE | 2024-01-12 20:56 | NUR ---
NOTIFIED MD OF PATIENT'S HR TREND. 130'S 150'S; A.FIB
[2024-01-12] MEDS ORDERED: METOPROLOL TARTRATE 5 MG/5 ML VIAL IV PRN (21:00)
[2024-01-12] MEDS ORDERED: methylPREDNISolone SOD SUCC 40 MG/ML VIAL IV SCH (21:00)
--- NOTE | 2024-01-12 21:49 | NUR ---
IN ROOM FOR MEDICATION ADMINISTRATION. AT BEDSIDE, COMPUTER SYSTEMS TECHNICIAN VERÓNICA BARRERA ALSO IN ROOM HEARING pt'S CONCERNS. EDUCATION PROVIDED BY MD REGARDING SODIUM DIET, MEDICATIONS, PLAN OF CARE. PRN LOPRESSOR ADMINISTERED FOR TACHYCARDIA. PRN ANXIETY MEDICATION ADMINISTERED. ASSESSMENT COMPLETE. pt DENIES SOB WITH 4L OXYGEN BY NC IN PLACE, WHEEZES AUSCULTATED THROUGHOUT ALL LOBES. CNAS IN ROOM TO CHANGE pt PUREWICK PULLED TO SIDE BY pt.
--- NOTE | 2024-01-12 23:06 | NUR ---
CALL LIGHT ANSWERED. PT STATED THAT HE WAS HAVING TROUBLE BREATHING. FACULTY MEMBER CHECKED PT SPO2 WHICH IS 94%. FACULTY MEMBER HAD PT LAY ON HIS BACK AND RAISED HEAD OF BED. FACULTY MEMBER NOTIFED PRIMARY RN.
[2024-01-13] VITALS (10 sets, daily range): BP systolic 111–146; BP diastolic 54–94
--- NOTE | 2024-01-13 00:01 | NUR ---
CALL LIGHT ANSWERED. PRN NICOTINE LOSANGE ADMINISTERED. RT IN ROOM FOR BREATHING TREATMENT.
--- NOTE | 2024-01-13 00:41 | NUR ---
CALL LIGHT ANSWERED. pt COMPLAINS OF RESTLESS LEGS, REQUESTING HOME MEDICATION. PHONE CALL TO MD. NEW ORDER RECEIVED, REPEATED BACK TO VERIFY. EMAR UPDATED.
[2024-01-13] MEDS ORDERED: ROPINIROLE HCL 1 MG TAB PO SCH (00:45)
--- NOTE | 2024-01-13 01:04 | NUR ---
IN ROOM FOR MEDICATION ADMINISTRATION. VS STABLE. HR 90S, IRREGULAR ON TELE 7. PUREWICK CANNISTER EMPTIED, YELLOW URINE. NICOTINE LOSANGE PROVIDED. LIGHTS OFF IN ROOM. CALL LIGHT IN REACH.
--- NOTE | 2024-01-13 03:15 | NUR ---
pt RESTING IN BED ON SIDE. BREATHING UNLABORED. HR IN 80S-90S IRREGULAR. NO DISTRESS NOTED. CALL LIGHT IN REACH.
[2024-01-13 05:38] LABS: BASOPHILS 0.2 % (0-2); HEMATOCRIT 34.5 % (35.0-50.0); LYMPHOCYTES 3.4 % (24-44); MCH 28.3 (27-36); MCV 88.4 fl (81-99); MONOCYTES 6.7 % (0-12); NEUTROPHILS 89.7 % (39-80); PLATELET COUNT 391 K/uL (140-440); RDW 16.7 (10.5-15.0)
[2024-01-13 05:50] LABS: ANION GAP 9.9 (7-21); BUN/CREATININE RATIO 32.75 (6.0-28.6); CALCIUM 8.8 mg/dL (8.5-10.1); CREATININE, SERUM 1.16 mg/dL (0.70-1.30); MAGNESIUM 2.2 mg/dL (1.8-2.4); POTASSIUM 4.9 mmol/L (3.5-5.1)
--- NOTE | 2024-01-13 05:53 | NUR ---
HADOOP ARCHITECT OBTAINED VITALS AND I&O. PT STATES NO NEEDS AT THIS TIME. CALL LIGHT WITHIN REACH.
--- NOTE | 2024-01-13 06:00 | NUR ---
pt AWAKE AFTER LAB DRAW. DROWSY. PRN NICOTINE LOSANGE ADMINISTERED. TELE LEADS REPLACED. pt CLOSES EYES RN EXITS ROOM. CALL LIGHT IN REACH.
--- NOTE | 2024-01-13 07:15 | NUR ---
REPORT RECIEVED FROM VERÓNICA LOMBARDI. PT SITTING UP IN BED AND RESPONDS WHEN ADDRESSED. PT DENIES ANY NEEDS AT THIS TIME. CALL LIGHT IN REACH.
--- NOTE | 2024-01-13 07:52 | NUR ---
THIS RN INFORMED PT REQUESTING "BREATHING TREATMENT." RT CALLED AND INFORMED.
--- NOTE | 2024-01-13 08:01 | NUR ---
PATIENT IN BED AT THIS TIME. TALENT ENGINEER TOOK PATIENTS BLOOD SUGAR. PATIENT TOLD TALENT ENGINEER THAT HE WANTED A BREATHING TREATMENT, RN HAS BEEN NOTIFIED. CALL LIGHT WITHIN REACH, NO FURTHER NEEDS AT THIS TIME.
--- NOTE | 2024-01-13 08:10 | NUR ---
IN TO ADMINISTER MEDICATIONS, SEE MAR. PT SITTING UP IN BED AND RESPONDS WHEN ADDRESSED. PT REQUESTING PRN NICOTINE LOZENGE, PROVIDED. NO NICOTINE PATCH SEEN ON PT. NEW PATCH PLACED ON PTs RIGHT SHOULDER. RT IN ROOM. PT DENIES ANY OTHER NEEDS FROM THIS RN. CALL LIGHT IN REACH.
--- NOTE | 2024-01-13 09:10 | NUR ---
PATIENT IN CHAIR AT THIS TIME. 2 CNAS IN PATIENTS ROOM TO CHANGE MALE PUREWICK AND BRIEF. BOTH CNAS ASSISTED PATIENT IN MOVING TO CHAIR WITH FRONT WHEELED WALKER. MAGAZINE KEEPER SET PATIENT UP WITH BREAKFAST. CALL LIGHT WITHIN REACH OF PATIENT, NO FURTHER NEEDS AT THIS TIME.
--- NOTE | 2024-01-13 09:49 | NUR ---
IN TO ROUND ON PT. PT REQUESTING NICOTINE LOZENGE, PROVIDED, SEE MAR. PT SITTING UP IN RECLINER. ASSESSMENT COMPLETE. LUNG SOUNDS WHEEZES THROUGHOUT ALL LOBES. COARSE IN RLL AND LLL. BOWEL TONES ACTIVE. ABD NON-TENDER WITH PALPATION. PT DENIES PAIN AT THIS TIME. PT DENIES NUMBNESS OR TINGLING IN ANY EXTREMITIES AT THIS TIME. PEDAL PULSES PALPABLE. CAPILLARY REFILL WNL. EDEMA TO BILATERAL ANKLES. DESENEX POWDER APPLIED TO CREASES IN GROIN REDNESS NOTED. PT DENIES ANY OTHER NEEDS AT THIS TIME. CALL LIGHT IN REACH.
--- NOTE | 2024-01-13 10:52 | NUR ---
VISITED DURING SPIRITUAL CARE ROUNDS. PT UNABLE TO TALK. PROVIDED PRAYER.
--- NOTE | 2024-01-13 11:10 | NUR ---
IN TO ADMINISTER PRN NICOTINE LOZENGE PER PT REQUEST, SEE MAR. PT SITTING UP IN RECLINER. PT DENIES ANY OTHER NEEDS AT THIS TIME. CALL LIGHT IN REACH. PTs IN ROOM.
--- NOTE | 2024-01-13 11:54 | NUR ---
PATIENT IS SITTING UP IN RECLINER TALKING TO HIS . PATIENT FEELS MUCH BETTER TODAY. PATIENT WILL DISCHARGE WHEN HE IS MEDICALLY STABLE PER MD.
--- NOTE | 2024-01-13 12:00 | NUR ---
IN TO ADMINISTER MEDICATION, SEE MAR. PT SITTING UP IN RECLINER AND REPSONDS WHEN ADDRESSED. PT DENIES ANY OTHER NEEDS AT THIS TIME. CALL LIGHT IN REACH. PTs IN ROOM.
--- NOTE | 2024-01-13 12:44 | NUR ---
IN PT REQUESTING PRN NICOTINE LOZENGE, PROVIDED, SEE MAR. PT SITTING UP IN RECLINER AND RESPONDS WHEN THIS RN ENTERS ROOM. PT REQUESTING TO GO BACK TO BED AND TO HAVE SOMEONE EMPTY URINE CANISTER. PT REPORTING BEING DONE WITH LUNCH TRAY, REMOVED. JEAN PIERRE PIKE IN TO ASSIST PT BACK TO BED AND EMPTY URINE CANISTER. PT DENIES ANY OTHER NEEDS FROM THIS RN. CALL LIGHT IN REACH. IN ROOM.
--- NOTE | 2024-01-13 13:44 | NUR ---
IN TO ADMINISTER MEDICATION, SEE MAR. VITALS COMPLETE. PT LAYING IN BED AND RESPONDS WHEN ADDRESSED. PT REQUESTING PRN NICOTINE LOZENGE, PROVIDED, SEE MAR. ASSESSMENT COMPLETE. LUNG SOUNDS WHEEZE THROUGHOUT ALL LOBES. COARSE IN RLL AND LLL. HEART TONES IRREGULAR. PT DENIES PAIN AT THIS TIME. PT DENIES ANY OTHER NEEDS AT THIS TIME. CALL LIGHT IN REACH. PTs IN RECLINER.
--- NOTE | 2024-01-13 15:30 | NUR ---
IN SN TO NURSES STATION REPORTING PTs IS "WANTING TO TALK TO THE RN." PTs STATES "I DON'T THINK THAT THING IS WORKING, HE SAID HE PEED." PTs ATTENDS CHECKES AND NOTED TO BE WET. THIS RN TO GRAB NEW ATTENDS AND MALE PUREWICK AND BACK IN ROOM. JEAN PIERRE PIKE IN ROOM AND TAKING OVER CARE OF PLACING MALE PUREWICK AND NEW ATTENDS. NO OTHER NEEDS FROM THIS RN. CALL LIGHT IN REACH.
--- NOTE | 2024-01-13 16:11 | NUR ---
IN TO ANSWER CALL LIGHT. PT REQUESTING TO BE BOOSTED UP IN BED. JEAN PIERRE IPKE IN TO ASSIST WITH BOOST. PT DENIES ANY OTHER NEEDS AT THIS TIME. CALL LIGHT IN REACH. PTs IN ROOM.
--- NOTE | 2024-01-13 16:17 | NUR ---
ELECTRIC MELT OPERATOR WENT INTO PATIENT ROOM. ELECTRIC MELT OPERATOR CHANGED PATIENTS MALE BRENDON @ 1650. CALL LIGHT WITHIN REACH, NO FURTHER NEEDS AT THIS TIME.
--- NOTE | 2024-01-13 16:49 | NUR ---
IN TO ADMINISTER MEDICATION, SEE MAR. PT REQUESTING PRN NICOTINE LOZENGE, PROVIDED, SEE MAR. PT SITTING UP IN BED. PT DENIES ANY OTHER NEEDS AT THIS TIME. CALL LIGHT IN REACH. PTs IN ROOM.
--- NOTE | 2024-01-13 19:26 | NUR ---
Received report from VERÓNICA Barrios. Pt appears to be sleeping soundly on left side.
--- NOTE | 2024-01-13 20:00 | NUR ---
PT RESTING COMFORTABLY. VSS. USES CALL LIGHT APPROPRIATELY. DENIES PAIN. SPEECH SLURRED, DIFFICULT TO UNDERSTAND AT TIMES. LS COARSE T/O W/ SCATTERED WHEEZING. REPORTS SOB & GARCÍA. NON-PROD LOOSE COUGH NOTED. 4L O2 IN PLACE VIA N/C. PT CALLS FOR NEBS NEEDED. HOB ELEVATED >45 DEGREES FOR COMFORT. HRIR, TACHY 110'S. TELE IN PLACE. 1+ BLE EDEMA. BTA, LBM 01/09. LAC SL WNL. SCATTERED BRUISES/ABRASIONS TO BUE. GROIN REDDENED. EXTERNAL MALE CATH IN PLACE-YELLOW UO NOTED. PT REQUESTS PRN NICOTINE LOZENGES NEEDED. CALL LIGHT WITHIN REACH.
--- NOTE | 2024-01-13 21:12 | NUR ---
ACCESS DATABASE DEVELOPER CLEANED PT GROIN AREA PER RN CRYSTAL REQUEST. PT ASKING FOR NICOTINE LOSENGE. RN ARIEL NOTIFED. PT STATES NO OTHER NEEDS AT THIS TIME. CALL LIGHT WITHIN REACH.
--- NOTE | 2024-01-13 21:29 | NUR ---
GROIN & LAYTON CARE DONE. ANTI-FUNGAL POWDER APPLIED. PT REQUESTED PRN NOCOTINE LOZENGE-ADMINISTERED PER EMAR.
--- NOTE | 2024-01-13 21:57 | NUR ---
SKIN CHECK DONE WITH VERÓNICA ABARCA. SKIN IS INTACT. PT RESTING ON RIGHT SIDE.
--- NOTE | 2024-01-13 23:00 | NUR ---
PT SLEEPING SOUNDLY ON RIGHT SIDE. 4L O2 IN PLACE.
[2024-01-14] VITALS (11 sets, daily range): BP systolic 116–129; BP diastolic 61–97
--- NOTE | 2024-01-14 00:15 | NUR ---
PT AWAKE, REQUESTING NICOTINE LOZENGE, ADMINISTERED PER EMAR. ICE WATER REFRESHED. CALL LIGHT WITHIN REACH.
--- NOTE | 2024-01-14 00:31 | NUR ---
PT AWAKE, REQUESTING NEB TX. RT NOTIFIED-IN ADMINISTERING NEB CURRENTLY. BATTERY CHANGED OUT ON TELE UNIT. NO FURTHER NEEDS IDENTIFIED. CALL LIGHT WITHIN REACH.
--- NOTE | 2024-01-14 01:46 | NUR ---
PT AWAKE. VSS. SCHEDULED CARDIZEM ADMINISTERED PER EMAR. PT REQUESTED PRN NICOTINE LOZENGE-ADMINISTERED. PT ASSISTED W/ ORAL CARE. ICE WATER REFRESHED. RESTING ON LEFT SIDE. CALL LIGHT WITHIN REACH.
--- NOTE | 2024-01-14 04:36 | NUR ---
PT AWAKE, CALLED TO REQUEST PRN NICOTINE LOZENGE-ADMINISERED PER EMAR. CALL LIG WITHIN REACH.
--- NOTE | 2024-01-14 04:41 | NUR ---
PT SLEPT INTERMITTENTLY. USES CALL LIGHT APPROPRIATELY. DENIES PAIN. SPEECH SLIGHTLY SLURRED. LS COARSE AND WHEEZY T/O. 4L O2 IN PLACE (BASELINE). PT REQESTS NEB TXS NEEDED. FREQUENT CALLS FOR PRN NICOTINE LOZENGE. HRIR, TACHY. TELE #[address]MALE EXT CATH IN PLACE. ANTIFUNGAL POWDER TO GROIN PER EMAR. PT REPORTS POSSIBLE D/C TODAY 01/13.
--- NOTE | 2024-01-14 05:17 | NUR ---
COUNTER FORMER OBTAINED VITALS AND I&O. PT REQUESTING A LOSENGE. RN NOTIFIED. PT STATES NO FURTHER NEEDS AT THIS TIME. CALL LIGHT WITHIN REACH.
[2024-01-14 05:31] LABS: BASOPHILS 0.2 % (0-2); EOSINOPHILS 0.1 % (0-6); HEMOGLOBIN 10.9 g/dL (12.0-18.0); LYMPHOCYTES 6.9 % (24-44); MCH 28.4 (27-36); MCHC 31.9 g/dl (30-36); MCV 88.8 fl (81-99); MONOCYTES 6.8 % (0-12); PLATELET COUNT 366 K/uL (140-440); RBC 3.83 M/ul (4.3-5.7); RDW 16.5 (10.5-15.0)
[2024-01-14 05:42] LABS: BUN/CREATININE RATIO 31.63 (6.0-28.6); CALCIUM 8.8 mg/dL (8.5-10.1); CREATININE, SERUM 0.98 mg/dL (0.70-1.30); MAGNESIUM 2.2 mg/dL (1.8-2.4)
--- NOTE | 2024-01-14 06:00 | NUR ---
PT AWAKE, CALLED REQUESTING PRN NICOTINE LOZENGE-ADMINISTERED PER EMAR. PT DISPOSIBLE BRIEF WET-LAYTON CARE DONE AND BRIEF CHANGED OUT. PT UP TO RECLINER W/ 1 ASSIST, FWW. CALL LIGHT WITHIN REACH.
--- NOTE | 2024-01-14 07:13 | NUR ---
REPORT RECIEVED FROM VERÓNICA GEORGE. RT IN ROOM WITH PT. PT SITTING UP IN RECLINER RECEIVING NEB TREATMENT. PT DENIES ANY NEEDS AT THIS TIME. CALL LIGHT IN REACH.
--- NOTE | 2024-01-14 08:09 | NUR ---
Patient was awake and alert during first rounds and already up in their chair at shift change. They called asking for medication and the RN was notified. No other cares were requested.
--- NOTE | 2024-01-14 08:30 | NUR ---
IN TO ADMINISTER MEDICAITIONS, SEE MAR. PT TAKES PO MEDICATIONS AT THIS TIME. PRN NICOTINE LOZENGE PROVIDED, SEE MAR, PER PT REQUEST. ASSESSMENT COMPLETE. PT DENIES PAIN AT THIS TIME. PT DENIES ANY NUMBNESS OR TINGLING AT THIS TIME. LUNG SOUNDS COARSE AND WHEEZES THROUGHOUT ALL LOBES. DIMINISHED IN LLL. BOWEL TONES ACTIVE. ABD NON-TENDER WITH PALPATION, ABD DISTENTION NOTED. HEART TONES IRREGULAR, TACHYCARDIC. REDNESS NOTED TO INNER THIGH/GROIN, DESINEX POWDER APPLIED. SCATTERED BRUISING AND SCABS NOTED TO BILATERAL ARMS. EDEMA NOTED TO BILATERAL ANKLES. PT SITTING UP IN RECLINER WITH BREAKFAST TRAY. PT DENIES ANY OTHER NEEDS AT THIS TIME. CALL LIGHT IN REACH.
--- NOTE | 2024-01-14 09:48 | NUR ---
THIS RN NOTIFIED BY REEL CUTTER THAT PT IS REQUESTING NEB TREATMENT. THIS RN ATTEMPTS TO CALL RT, NO ANSWER. [id number] THIS RN IN PTs ROOM WITH PRN NEB AND PRN NICOTINE LOZENGE, PER PT REQUEST. PT DENIES ANY OTHER NEEDS AT THIS TIME. CALL LIGHT IN REACH. PTs IN RECLINER AND PROVIDED SILVERWEAR FOR BREAKFAST.
--- NOTE | 2024-01-14 10:48 | NUR ---
THIS RN ALERTED BY VERÓNICA ULRICH THAT PT IS REQUESTING THIS RN. THIS RN IN ROOM PT SITTING UP IN BED ON RIGHT SIDE. PT STATES "I CANNOT BREATH." O2 SATS NOTED TO BE AT 95% ON 4L NC. LUNG SOUNDS WHEEZE AND COARSE THROUGHOUT. OFFERED TO SUCTION PT, PT REFUSES AND STATES "GET THE DOCTOR, HE WILL KNOW MORE." THIS RN GETS DR. HAMPTON. DR. HAMPTON TO ROOM AND REQUESTING RT. ERNA, RT TO ROOM OFFERS TO SUCTION PT, PT DECLINES. RT BRINGS BIPAP TO ROOM AND PLACES PT ON BIPAP. VERBAL FROM "OKAY TO GIVE PRN NEB NOW." EVEN AFTER INFORMING MD THAT THE PRN NEB WAS GIVEN 1 HOUR AGO AND THE ORDER IS Q2 HOURS. MD VERBALIZES "YES IT IS OKAY TO GIVE NOW STILL." PRN NEB GIVEN THROUGH BIPAP WITH ASSISTANCE FROM RT. PT HR NOTED TO BE UP IN THE 130'S. ONCE BIPAP IS ON AND PRN NEB IS STARTED PT NOTED TO APPEAR MORE CALM. HR NOTED TO DECREASE TO LOW 100's. PT DENIES ANY OTHER NEEDS AT THIS TIME. CALL LIGHT IN REACH. PTs AT BEDSIDE.
--- NOTE | 2024-01-14 10:53 | NUR ---
PATIENT ALERT AND ORIENTED IN BED. STATES HE IS READY TO BE DISCHARGED TODAY. CONCERNED ABOUT EMAIL NOTIFICATION REGARDING MEDICAID. CALLED [place], [facility] EMAIL WAS FROM [facility]. PATIENT NOTIFIED. NO FURTHER NEEDS AT THIS TIME.
--- NOTE | 2024-01-14 11:52 | NUR ---
DR. HAMPTON NOTIFIED OF PTs BG OF 391. DR. HAMPTON TO ADD ORDERS. AWARE.
[2024-01-14] MEDS ORDERED: Insulin Regular, Human 100 UNIT/ML ML SUB-Q SCH (12:00)
--- NOTE | 2024-01-14 12:07 | NUR ---
IN TO ADMINISTER MEDICATION, SEE MAR. PT SITTING UP HIGH-FOWLERS IN BED ON RIGHT SIDE. PT RESPONDS WHEN ADDRESSED. PT REQUESTING TO HAVE BIPAP OFF. BIPAP REMOVED. 4L NC PLACED BACK ON PT. PT REQUESTING TO HAVE NOON DUO NEB. DUO NEB ADMINISTERED, SEE MAR. RT IN ROOM TO CHECK ON PT. PT DENIES ANY OTHER NEEDS FROM THIS RN. CALL LIGHT IN REACH. IN RECLINER.
--- NOTE | 2024-01-14 12:58 | NUR ---
IN PT REQUESTING PRN NICOTINE LOZENGE. LOZENGE PROVIDED, SEE MAR. PT SITTING UP ON EDGE OF BED. PT DENIES ANY OTHER NEEDS AT THIS TIME. CALL LIGHT IN REACH. PTs IN ROOM.
[2024-01-14] MEDS ORDERED: FLUTICASONE PROPIONATE 50 MCG BTL NAS SCH (12:59)
--- NOTE | 2024-01-14 12:59 | NUR ---
Patient was sitting upright on the side of the bed with PT in the room. No cares were requested.
--- NOTE | 2024-01-14 14:49 | NUR ---
IN TO ADMINISTER MEDICAITONS, SEE MAR. PT SITTING UP IN BED ON RIGHT SIDE. PT RESPONDS WHEN ADDRESSED. ASSESSMENT COMPLETE. LUNG SOUNDS WWHEEZE AND COARSE THROUGHOUT. HEART TONES/RATE IRREGULAR. PT REQUESTING STRAW, STRAW PROVIDED. PT DENIES ANY OTHER NEEDS AT THIS TIME. CALL LIGHT IN REACH. PTs IN ROOM.
--- NOTE | 2024-01-14 16:08 | NUR ---
PATIENT ALERT AND ORIENTED. PATIENT'S SPOUSE CALLED REQUESTING INFORMATION REGARDING EMAIL FROM [facility]. INFORMED IT WAS NOT SENT FROM ANYONE IN THIS FACILITY. THERE IS A PHONE NUMBER ON EMAIL, INSTRUCTED IF THEY DO NOT HEAR ANYTHING WEDNESDAY TO CALL THAT NUMBER. REQUESTING FINANCIAL ASSISTANCE FORMS. FINANCIAL ASSISTANCE PACKET PROVIDED TO PATIENT AND SPOUSE. DENY ANY FURTHER NEEDS AT THIS TIME.
--- NOTE | 2024-01-14 17:14 | NUR ---
IN TO ADMINISTER MEDICATION, SEE MAR. PT SITTING UP IN BED HIGH FOWLERS. JEAN PIERRE ORTIZ IN ROOM SETTING PTs DINNER TRAY UP. PT REQUESTING NICOTINE LOZENGE, PROVIDED, SEE MAR. PT DENIES ANY OTHER NEEDS AT THIS TIME. CALL LIGHT IN REACH. PTs IN ROOM.
--- NOTE | 2024-01-14 18:23 | NUR ---
IN PT REQUESTING NICOTINE LOZENGE, SEE MAR. PT REQUESTING "BREATHING TREATMENT" RT CALLED AND ON THEIR WAY. PT SITTING UP IN BED HIGH FOWLERS. PT DENIES ANY OTHER NEEDS AT THIS TIME. CALL LIGHT IN REACH.
--- NOTE | 2024-01-14 19:21 | NUR ---
Received report from VERÓNICA Barrios. Pt resting in bed. Denies needs. Call light within reach.
--- NOTE | 2024-01-14 20:15 | NUR ---
PT RESTING COMFORTABLY IN BED. JUST RECEIVED NEB TX FROM RT. VSS. USES CALL LIGHT APPROPRIATELY. PT ASSISTED TO EOB FOR EASE OF BREATHING. PT USED ACAPELLA W/ ENC. 4L O2 NC PER BASELINE. PT REPORTS NOT WANTING TO USE BIPAP IF NOT NECESSARY. SOB AND GARCÍA REPORTED. HARSH, LOOSE NON-PRODUCTIVE COUGH NOTED. HRIR, TELE IN PLACE. BTA. EXT MALE CATH IN PLACE FOR DRIBBLING/INC. GROIN REDDENED, ANTI-FUNGAL POWDER PER EMAR. LAC SL WNL. BG 188, COVERED W/ 3 UNITS SLIDING SCALE INSULIN. CALL LIGHT WITHIN REACH.
--- NOTE | 2024-01-14 20:18 | NUR ---
ASSISTANT TEACHING PROFESSOR OBTAINED VITALS AND I&O. PT BLOODSUGAR IS 188. RN NOTIFED. PT REQUESTING A NICONTINE LOSENGE. RN NOTIFED. PT STATES NO FURTHER NEEDS AT THIS TIME. CALL LIGHT WITHIN REACH.
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
--- NOTE | 2024-01-14 22:28 | NUR ---
PT SLEEPING ON RIGHT SIDE. APPEARS COMFORTBALE. 4L O2 NC IN PLACE. CALL LIGHT WITHIN REACH.
[2024-01-15] VITALS (7 sets, daily range): BP systolic 115–143; BP diastolic 59–73
--- NOTE | 2024-01-15 00:59 | NUR ---
PT SLEEPING SOUNDLY ON LEFT SIDE. 4L O2 IN PLACE. BREATHING EVEN AND UNLABORED. CALL LIGHT WITHIN REACH.
--- NOTE | 2024-01-15 01:25 | NUR ---
CALL LIGHT ANSWERED. PT WANTED A LOSENGE AND A BREATHING TREATMENT. INTERNATIONAL RECRUITER NOTIFED. RED LEADER OBTAINED AND DOCUMENTED VITALS. INTERNATIONAL RECRUITER AWARE OF SPO2 88%. PT STATES NO FURTHER NEEDS AND RN IN ROOM. CALL LIGHT WITHIN REACH.
--- NOTE | 2024-01-15 01:45 | NUR ---
Pt having some anxiety. Medicated w/ PRN Vistaril. Harsh, hacking cough noted, productive but unable to spit out. O2 sats 88-89%. Pt enc to deep breathe and cough and used acapella x 10. Pt repositioned to supine, HOB elevated, O2 sats now 92%. Pt resistant to Bi-pap use, will continue to encourage as needed. Call light within reach.
--- NOTE | 2024-01-15 02:59 | NUR ---
Pt reports RFA bleeding. RFA scab loose, small amt bleeding noted. Bandaid placed.
--- NOTE | 2024-01-15 03:10 | NUR ---
PT REPORTED THAT HIS ARM WAS BLEEDING. SAMPLE DISTRIBUTOR TOLD HIS NURSE.
--- NOTE | 2024-01-15 04:38 | NUR ---
PT SLEEPING SOUNDLY. APPEARS COMFORTABLE.
--- NOTE | 2024-01-15 05:46 | NUR ---
PT CALLED FOR RN-RFA SCAB BLEEDING AGAIN. RFA SKIN TEAR W/ MODERATE AMT BLOODY DRNG. BANDAIDS REMOVED AND FOAM DRSG APPLIED. LAB IN TO GET BLOODWORK.
[2024-01-15 06:05] LABS: BASOPHILS 0.9 % (0-2); HEMATOCRIT 36.4 % (35.0-50.0); HEMOGLOBIN 11.5 g/dL (12.0-18.0); LYMPHOCYTES 8.2 % (24-44); MCH 28.1 (27-36); MCHC 31.5 g/dl (30-36); MCV 89.1 fl (81-99); NEUTROPHILS 83.9 % (39-80); PLATELET COUNT 359 K/uL (140-440); RBC 4.08 M/ul (4.3-5.7); RDW 16.8 (10.5-15.0)
[2024-01-15 06:15] LABS: BUN/CREATININE RATIO 29.29 (6.0-28.6); CALCIUM 8.7 mg/dL (8.5-10.1); CREATININE, SERUM 0.99 mg/dL (0.70-1.30); MAGNESIUM 2.2 mg/dL (1.8-2.4)
--- NOTE | 2024-01-15 07:15 | NUR ---
REPORT RECEIVED FROM VERÓNICA GEORGE. PT RESTING IN RECLINER, EYES CLOSED, RR EVEN AND UNLABORED. PT NOTED GRIPPING ARMREST OF RECLINER. NO NEEDS NOTED, CALL LIGHT AND PERSONAL BELONGINGS IN REACH.
--- NOTE | 2024-01-15 08:04 | NUR ---
Board has been updated and call light has been placed within reach
[2024-01-15] MEDS ORDERED: POLYETHYLENE GLYCOL 3350 1 PACKET PO SCH (09:00)
[2024-01-15] MEDS ORDERED: PREDNISONE20 MG PO (09:29)
[2024-01-15] MEDS ORDERED: CARDIZEM CD180 MG PO (09:33)
[2024-01-15] MEDS ORDERED: dilTIAZem HCL 180 MG CAPCR PO ONE (09:45)
[2024-01-15] MEDS ORDERED: dilTIAZem HCL 120 MG CAPCR PO ONE (10:15)
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
--- NOTE | 2024-01-15 11:08 | NUR ---
RT PRESENT IN ROOM WITH PT, ADMINISTERING NEBULIZER.
--- NOTE | 2024-01-15 11:18 | NUR ---
Patient is currently in his bed. AM care has been completed. is in the room with patient at this time. No request from patient call light has been placed within reach
--- NOTE | 2024-01-15 12:08 | NUR ---
IN TO ADMINISTER MEDICATION PER MAR AND PROVIDE DISCHARGE EDUCATION. EDUCATION PROVIDED, ANY QUESTIONS ANSWERED. AT BEDSIDE IN RECLINER, EXPRESSES CONCERNS THAT GETTING THIS DISCHARGE EDUCATION WILL PREVENT THEM FROM RECEIVING LUNCH. EDUCATED THAT LUNCH WOULD STILL BE COMING, VISIBLE RELIEVED. NO NEEDS AT THIS TIME, CALL LIGHT AND PERSONAL BELONGINGS IN REACH.
--- NOTE | 2024-01-15 13:27 | NUR ---
IN PT IS REQUESTING TO SPEAK WITH DR HAMPTON, DR HAMPTON ARRIVES. PT REPORTS WANTING TO TRY THE BIPAP MACHINE, PREVIOUSLY STATES FEELING NERVOUS ABOUT GOING HOME, NOW STATING TO DR HAMPTON "YOU CAN'T CHANGE YOUR MIND, I'M GOING HOME." DR HAMPTON ANSWERS ANY QUESTIONS, RESPIRATORY THERAPY ARRIVES AND ASSIST PT WITH BIPAP MACHINE. CALL LIGHT AND PERSONAL BELONGINGS IN REACH.
--- NOTE | 2024-01-15 13:52 | NUR ---
IN TO REMOVE BIPAP APPLIED BY RESPIRATORY THERAPY BY PT REQUEST. PT STATES HE DID NOT LIKE HOW THE BIPAP FELT ON HIS FACE BUT THAT IT FELT REALLY GOOD ON HIS LUNGS. PT EDUCATED ON WHAT A HOME BIPAP MACHINE WOULD LOOK LIKE, ENCOURAGED TO REACH OUT TO HIS PCP AND TRY ONE OUT. NO NEEDS AT THIS TIME, CALL LIGHT AND PERSONAL BELONGINGS IN REACH.
--- NOTE | 2024-01-15 14:10 | NUR ---
IN PT IS CALLING FOR PRN MEDICATION. MEDICATION ADMINISTERED PER JUN. SECOND ASSESSMENT COMPLETE, CHARTED. PT REPORTS NO PAIN, NO SOB. NO NEEDS AT THIS TIME, CALL LIGHT AND PERSONAL BELONGINGS IN REACH.
--- NOTE | 2024-01-15 15:20 | NUR ---
IN WITH BLUE RN TO ASSIST PT IN GETTING DRESSED IN PAPER SCRUBS HIS PERSONAL CLOTHES WERE WET. PT IV REMOVED WNL, CATH INTACT. PT PRESENT IN ROOM THROUGHOUT. PT READY AND EAGER TO D/C WHENEVER SON ARRIVES. PT BELONGINGS IN LOCKBOX RETURNED, WALLET GIVEN TO . NO FURTHER NEEDS AT THIS TIME, CALL LIGHT AND PERSONAL BELONGINGS IN REACH.
--- NOTE | 2024-01-15 15:30 | NUR ---
PT WHEELED TO FRONT OF HOSPITAL FOR DISCHARGE, LOADS INTO SONs CAR. ATTEMPTED TO SWITCH PT TO PTs PERSONAL OXYGEN TANK, OXYGEN TANK IS EMPTY. SON PROVIDES FRESH OXYGEN TANK FROM HIS VEHICLE. ATTEMPTED TO SWITCH PT TO NEW PERSONAL OXYGEN TANK, OXYGEN TANK LEAKING AT THE REGULATOR. REGULATOR ADJUSTMENTS ATTEMPTED BY THIS RN, VERÓNICA JAMES, JEAN PIERRE MCARTHUR, AND JEAN PIERRE SHARMA. REGULATOR NOT WORKING. HUMAN RESOURCES EXECUTIVE ASSISTANT CALLED AND GIVES PERMISSION TO SEND PT WITH HOSPITAL OXYGEN TANK WITH THE UNDERSTANDING THE TANK MUST BE RETURNED TODAY. PT AND PTs SON EXPRESS UNDERSTANDING THAT TANK WILL BE RETURNED THIS EVENING. PT AND PTs SON ENCOURAGED TO ALSO CALL [facility] TO GET A NEW REGULATOR FOR PTs PERSONAL OXYGEN TANKS ANN-MARIE, BOTH EXPRESS UNDERSTANDING. PT AND FAMILY LEAVE WITH NO COMPLAINTS OR CONCERNS AT THIS TIME.
--- NOTE | 2024-01-15 18:21 | NUR ---
INFORMED BY JEAN PIERRE SHARMA THAT PTs SON HAS RETURNED THE AFOREMENTIONED OXYGEN TANK.
== END 2024-01-15 15:35 | disposition home or self-care (01) | DRG 291 ==
LOC: ED 09:38 → CCU 11:48 → MS 11:48
PROVIDERS: Emergency Medicine; ADMIT Student in an Organized Health Care Education/Training Program; ATTEND Family Medicine
PROC: 5A09357 Assistance with Respiratory Ventilation, Less than 24 Consecutive Hours, Continuous Positive Airway Pressure (ICD-10-PCS; principal; 2024-01-10)
DX: I50.33 Acute on chronic diastolic (congestive) heart failure (principal); J96.21 Acute and chronic respiratory failure with hypoxia; J44.1 Chronic obstructive pulmonary disease with (acute) exacerbation; E87.5 Hyperkalemia; I25.10 Atherosclerotic heart disease of native coronary artery without angina pectoris; I48.91 Unspecified atrial fibrillation; E11.9 Type 2 diabetes mellitus without complications; G40.909 Epilepsy, unspecified, not intractable, without status epilepticus; J98.4 Other disorders of lung; F17.210 Nicotine dependence, cigarettes, uncomplicated; E66.9 Obesity, unspecified; Z99.81 Dependence on supplemental oxygen; Z95.5 Presence of coronary angioplasty implant and graft; Z88.1 Allergy status to other antibiotic agents; Z88.8 Allergy status to other drugs, medicaments and biological substances; Z79.01 Long term (current) use of anticoagulants; Z79.899 Other long term (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; Z79.51 Long term (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 of inhaled steroids; Z79.02 Long term (current) use of antithrombotics/antiplatelets; Z68.28 Body mass index [BMI] 28.0-28.9, adult
CPT/HCPCS: 36415; 51702; 71045; 80048; 80053; 83735; 83880; 84484; 85025; 87502; 93005; 93010; 94640; 94660; 94667; 94668; 94760; 94762; 96368; 97161; 97165; 97530; 99285-25; A9270; J0282; J1815; J1940; J2919; J7070; Q0177; U0002

== ENCOUNTER 2024-01-15 21:21 | Inpatient (IN) | payer MEDICARE ==
[~2024-01-15] VITALS: Ht 175.3 cm; Wt 85.0 kg
[2024-01-15] MEDS ORDERED: CEFTRIAXONE/SODIUM CHLORIDE 2 GM/100 ML PIGGYBACK IV ONE (21:30)
[2024-01-15] MEDS ORDERED: methylPREDNISolone SOD SUCC 125 MG/2 ML VIAL IV ONE (21:30)
[2024-01-15 21:40] LABS: HEMATOCRIT 40.5 % (35.0-50.0); HEMOGLOBIN 13.1 g/dL (12.0-18.0); MCH 28.9 (27-36); MCHC 32.4 g/dl (30-36); MCV 89.2 fl (81-99); PLATELET COUNT 434 K/uL (140-440); RBC 4.55 M/ul (4.3-5.7); RDW 16.7 (10.5-15.0)
[2024-01-15] MEDS ORDERED: LORazepam 2 MG/ML VIAL IV ONE (21:45)
[2024-01-15] MEDS ORDERED: AMIODARONE/DEXTROSE 100 ML IV ONE (21:45)
[2024-01-15 22:00] LABS: BASE EXCESS, BLOOD GAS 1.7 mmol/L (-2-2); HCO3, BLOOD GAS 28.5 mmol/L (22-26); O2 SATURATION, BLOOD GAS 93.1 % (95.0-100.0); PCO2, BLOOD GAS 52.4 mmHg (35-45); PH, BLOOD GAS 7.34 (7.35-7.45); TOTAL CO2, BLOOD GAS 30.1
[2024-01-15 22:02] LABS: MAGNESIUM 2.3 mg/dL (1.8-2.4); PHOSPHORUS, INORGANIC 4.5 mg/dL (2.5-4.9)
[2024-01-15 22:03] LABS: LACTIC ACID, BLOOD 4.2 mmol/L (0.4-2.0)
[2024-01-15 22:12] LABS: LYMPHOCYTES, MANUAL DIFF 17; NEUTROPHILS, MANUAL DIFF 83
[2024-01-15] MEDS ORDERED: dilTIAZem HCL 25 MG/5 ML VIAL IV ONE (22:15)
[2024-01-15 22:21] LABS: ALBUMIN 3.2 g/dL (3.4-5.0); ALBUMIN/GLOBULIN RATIO 0.8 (1.1-2.4); ANION GAP 15.9 (7-21); BILIRUBIN, TOTAL 0.4 ng/dL (0.2-1.0); BUN/CREATININE RATIO 22.53 (6.0-28.6); CALCIUM 9.2 mg/dL (8.5-10.1); CREATININE, SERUM 1.42 mg/dL (0.70-1.30); POTASSIUM 4.9 mmol/L (3.5-5.1); PROTEIN, TOTAL 7.2 g/dL (6.4-8.2)
[2024-01-15 22:41] LABS: INFLUENZA B NAA NEGATIVE (NEGATIVE); RESPIRATORY SYNCYTIAL VIR NAA NEGATIVE (NEGATIVE)
[2024-01-15] MEDS ORDERED: LACTATED RINGER'S 1,000 ML IV ONE (22:45)
[2024-01-15] MEDS ORDERED: DILTIAZEM HCl/D5W 125 ML IV SCH (23:00)
[2024-01-15] MEDS ORDERED: LIDOCAINE 2% VISCOUS 6 ML SYR TOP ONE (23:00)
[2024-01-15 23:22] LABS: BILIRUBIN, URINE NEGATIVE (negative); BLOOD/HGB, URINE NEGATIVE (Negative); KETONE, URINE NEGATIVE (Negative); LEUK ESTERASE, URINE TRACE (negative); NITRITE, URINE NEGATIVE (negative); PH, URINE 5.5 (5-7)
[2024-01-15 23:29] LABS: RED BLOOD CELLS, URINE 0-1 /hpf (0-5)
[2024-01-15 23:30] LABS: BACTERIA, URINE RARE /hpf (negative); CASTS, URINE NONE SEEN \\lpf; COLLECTION TYPE, URINE CLEAN CATCH; CRYSTALS, URINE NONE SEEN (0-1+); EPITHELIAL CELLS, URINE SQUAMOUS 1+ /lpf (0-1+); REFLEX CULTURE, URINE Yes (No); WHITE BLOOD CELLS, URINE >50 /HPF (0-5)
[2024-01-15] MEDS ORDERED: ALBUTEROL/IPRATROPIUM 3 ML NEB INH ONE (23:45)
[2024-01-16] VITALS (27 sets, daily range): BP systolic 100–144; BP diastolic 59–184
[2024-01-16] MEDS ORDERED: ondansetron HCL 4 MG/2 ML VIAL IV PRN ×2 (01:30→09:15)
[2024-01-16] MEDS ORDERED: NICOTINE POLACRILEX 4 MG LOZENGE BUCCAL PRN (02:45)
[2024-01-16] MEDS ORDERED: ALBUTEROL/IPRATROPIUM 3 ML NEB INH PRN (02:45)
[2024-01-16] MEDS ORDERED: ALBUTEROL/IPRATROPIUM 3 ML NEB INH ONE (04:00)
[2024-01-16] MEDS ORDERED: hydrOXYzine pamoate 25 MG CAP PO PRN ×2 (04:00→10:15)
[2024-01-16 05:15] LABS: BASOPHILS 0.1 % (0-2); HEMATOCRIT 35.5 % (35.0-50.0); HEMOGLOBIN 11.3 g/dL (12.0-18.0); LYMPHOCYTES 2.9 % (24-44); MCHC 31.9 g/dl (30-36); MCV 87.8 fl (81-99); MONOCYTES 4.2 % (0-12); NEUTROPHILS 92.8 % (39-80); PLATELET COUNT 361 K/uL (140-440); RBC 4.04 M/ul (4.3-5.7); RDW 16.9 (10.5-15.0)
[2024-01-16 05:43] LABS: ALBUMIN 2.9 g/dL (3.4-5.0); ALBUMIN/GLOBULIN RATIO 0.85 (1.1-2.4); ANION GAP 10.2 (7-21); BILIRUBIN, TOTAL 0.3 ng/dL (0.2-1.0); BUN/CREATININE RATIO 25.4 (6.0-28.6); CREATININE, SERUM 1.22 mg/dL (0.70-1.30); MAGNESIUM 2.3 mg/dL (1.8-2.4); POTASSIUM 5.2 mmol/L (3.5-5.1); PROTEIN, TOTAL 6.3 g/dL (6.4-8.2)
[2024-01-16] MEDS ORDERED: BUDESONIDE 0.5 MG/2 ML VIAL INH SCH (08:00)
[2024-01-16] MEDS ORDERED: ALBUTEROL/IPRATROPIUM 3 ML NEB INH SCH ×2 (08:00)
[2024-01-16] MEDS ORDERED: NICOTINE 21 MG/24 HR 1 EA TDSY TD SCH ×2 (09:00→10:10)
[2024-01-16] MEDS ORDERED: DEXTROSE 50% 50 ML SYR IV PRN ×2 (09:15)
[2024-01-16] MEDS ORDERED: DEXTROSE 5% 1,000 ML IV PRN (09:15)
[2024-01-16] MEDS ORDERED: GLUCAGON,HUMAN RECOMBINANT 1 MG/ML VIAL SUB-Q PRN (09:15)
[2024-01-16] MEDS ORDERED: IBLOOD GLUCOSE TEST STRIP 1 EA TEST XX PRN (09:15)
[2024-01-16] MEDS ORDERED: ACETAMINOPHEN 325 MG TAB PO PRN (09:15)
[2024-01-16] MEDS ORDERED: AMIODARONE HCL 200 MG TAB PO SCH (10:06)
[2024-01-16] MEDS ORDERED: APIXABAN 5 MG TAB PO SCH (10:07)
[2024-01-16] MEDS ORDERED: carBAMazepine 200 MG TAB PO SCH (10:07)
[2024-01-16] MEDS ORDERED: AZITHROMYCIN 250 MG TAB PO SCH (10:07)
[2024-01-16] MEDS ORDERED: CLOPIDOGREL BISULFATE 75 MG TAB PO SCH (10:08)
[2024-01-16] MEDS ORDERED: EMPAGLIFLOZIN 25 MG TAB PO SCH (10:08)
[2024-01-16] MEDS ORDERED: dilTIAZem HCL 180 MG CAPCR PO SCH (10:08)
[2024-01-16] MEDS ORDERED: FAMOTIDINE 20 MG TAB PO SCH (10:09)
[2024-01-16] MEDS ORDERED: ROPINIROLE HCL 0.25 MG TAB PO SCH (10:10)
[2024-01-16] MEDS ORDERED: methylPREDNISolone SOD SUCC 125 MG/2 ML VIAL IV SCH (10:12)
[2024-01-16] MEDS ORDERED: PHARMACY RENAL DOSE ADJUSTMENT 1 DOSE MISC PO SCH (12:00)
[2024-01-16] MEDS ORDERED: INSULIN LISPRO 100 UNIT/ML ML SUB-Q SCH (12:00)
[2024-01-16] MEDS ORDERED: IBLOOD GLUCOSE TEST STRIP 1 EA TEST VI SCH (12:00)
[2024-01-16 14:17] LABS: ANION GAP 8.3 (7-21); BUN/CREATININE RATIO 26.44 (6.0-28.6); CALCIUM 9.3 mg/dL (8.5-10.1); CREATININE, SERUM 1.21 mg/dL (0.70-1.30); POTASSIUM 5.3 mmol/L (3.5-5.1)
[2024-01-16] MEDS ORDERED: Calcium Gluconate in NS 1,000 MG/50 ML BAG IV ONE (17:15)
[2024-01-16 20:15] LABS: ANION GAP 9.9 (7-21); BUN/CREATININE RATIO 30.83 (6.0-28.6); CALCIUM 9.2 mg/dL (8.5-10.1); CREATININE, SERUM 1.2 mg/dL (0.70-1.30); POTASSIUM 4.9 mmol/L (3.5-5.1)
[2024-01-16] MEDS ORDERED: INSULIN GLARGINE-YFGN 100 UNIT/ML ML SUB-Q SCH (21:00)
[2024-01-16] MEDS ORDERED: MELATONIN 3 MG TAB PO SCH (21:00)
[2024-01-16] MEDS ORDERED: ROPINIROLE HCL 1 MG TAB PO SCH (21:00)
[2024-01-16] MEDS ORDERED: SENNOSIDES/DOCUSATE 1 EA TAB PO SCH (21:15)
[2024-01-17] VITALS (9 sets, daily range): BP systolic 94–131; BP diastolic 56–79
[2024-01-17 05:27] LABS: BASOPHILS 0.3 % (0-2); EOSINOPHILS 0.2 % (0-6); HEMATOCRIT 33.1 % (35.0-50.0); HEMOGLOBIN 10.7 g/dL (12.0-18.0); LYMPHOCYTES 14.9 % (24-44); MCH 28.3 (27-36); MCHC 32.4 g/dl (30-36); MCV 87.4 fl (81-99); MONOCYTES 8.2 % (0-12); NEUTROPHILS 76.4 % (39-80); PLATELET COUNT 326 K/uL (140-440); RBC 3.79 M/ul (4.3-5.7); RDW 16.9 (10.5-15.0)
[2024-01-17 05:42] LABS: ALBUMIN 2.7 g/dL (3.4-5.0); ALBUMIN/GLOBULIN RATIO 0.87 (1.1-2.4); ANION GAP 7.5 (7-21); BILIRUBIN, TOTAL 0.2 ng/dL (0.2-1.0); BUN/CREATININE RATIO 33.68 (6.0-28.6); CALCIUM 8.6 mg/dL (8.5-10.1); CREATININE, SERUM 0.95 mg/dL (0.70-1.30); MAGNESIUM 2.2 mg/dL (1.8-2.4); PHOSPHORUS, INORGANIC 3.5 mg/dL (2.5-4.9); POTASSIUM 4.5 mmol/L (3.5-5.1); PROTEIN, TOTAL 5.8 g/dL (6.4-8.2)
--- NOTE | 2024-01-17 07:56 | EKG ---
[facility] [address] [facility] [place] [address] Signed Atrial fibrillation with rapid ventricular response Left axis deviation ST \T\ T wave abnormality, consider lateral ischemia Abnormal ECG When compared with ECG of 10-JAN-2024 09:57, Right bundle branch block is no longer present Borderline criteria for Lateral infarct are no longer present Confirmed by Rafaela Hampton MD () on 01/17/2024 7:56:40 AM Electronically Signed By: RAFAELA HAMPTON MD 01/17/24 0756 PATIENT NAME: KEVIN DAUGHERTY Electrocardiogram DATE OF : 46 PHYSICIAN: RAFAELA HAMPTON MD REPORT #: [id number] REPORT IS CONFIDENTIAL AND NOT TO BE RELEASED WITHOUT AUTHORIZATION
[2024-01-17] MEDS ORDERED: MICONAZOLE NITRATE 1 EA BTL TOP SCH (09:00)
[2024-01-17] MEDS ORDERED: FUROSEMIDE 20 MG TAB PO SCH (09:28)
[2024-01-17] MEDS ORDERED: FLUTICASONE PROPIONATE 50 MCG BTL NAS PRN (22:30)
[2024-01-18 02:01] VITALS: BP 113/60
[2024-01-18 05:32] VITALS: BP 109/73
[2024-01-18 08:00] VITALS: BP 108/88
[2024-01-18 11:38] VITALS: BP 113/67
[2024-01-19] MEDS ORDERED: predniSONE 20 MG TAB PO SCH (09:00)
== END 2024-01-18 14:00 | DRG 189 ==
LOC: ED 21:21 → CCU 01-16 01:28
PROVIDERS: Internal Medicine; ADMIT Family Medicine; ATTEND Student in an Organized Health Care Education/Training Program
PROC: 5A09357 Assistance with Respiratory Ventilation, Less than 24 Consecutive Hours, Continuous Positive Airway Pressure (ICD-10-PCS; principal; 2024-01-15)
DX: J96.21 Acute and chronic respiratory failure with hypoxia (principal); J44.1 Chronic obstructive pulmonary disease with (acute) exacerbation; E87.20 Acidosis, unspecified; I25.10 Atherosclerotic heart disease of native coronary artery without angina pectoris; I50.9 Heart failure, unspecified; I48.91 Unspecified atrial fibrillation; J98.4 Other disorders of lung; G43.909 Migraine, unspecified, not intractable, without status migrainosus; E11.9 Type 2 diabetes mellitus without complications; F17.210 Nicotine dependence, cigarettes, uncomplicated; I11.0 Hypertensive heart disease with heart failure; E87.5 Hyperkalemia; I25.2 Old myocardial infarction; Z95.5 Presence of coronary angioplasty implant and graft; Z79.52 Long term (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 of systemic steroids; Z88.1 Allergy status to other antibiotic agents; Z79.84 Long term (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 of oral hypoglycemic drugs; Z99.81 Dependence on supplemental oxygen; Z88.8 Allergy status to other drugs, medicaments and biological substances; Z79.899 Other long term (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; Z79.01 Long term (current) use of anticoagulants; Z79.02 Long term (current) use of antithrombotics/antiplatelets; Z79.51 Long term (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 of inhaled steroids
CPT/HCPCS: 36415; 36600; 71045; 80048; 80053; 81001; 82803; 83605; 83735; 83880; 84100; 84484; 85025; 87088; 87502; 93005; 93010; 94640; 94660; 94762; 97162; 97530; A9270; J0282; J0696; J1815; J2060; J2919; J7121; Q0177; U0002